=== PATIENT | male | born 1965 | race Caucasian/White ===

== ENCOUNTER → 2016-06-05 | Outpatient (CLI) | payer MEDICARE, OTHER ==
[~2016-06-05] MED LIST: ALLP300T PO; ALPR.25T PO; ALPR0.254 PO; AMIT50TA3 PO; ANDROGEL; ASCO-262 PO; BACL10TA PO; BUPR150T49 PO; BUTA1TAB44 PO; CALC-250 PO; CETI10TA17 PO; CETI5TAB6 PO; CHOL100045 PO; CRESTOR40 MG PO; DCS100C PO; DICL100G13 TOP; DICL100G20 TOP; EZET10TA5 PO; FENO145T2 PO; FISH1CAP15 PO; FNT100TD TD; FNT50TD TD; FOLI-88 PO; GABA-488 PO; GABA300C PO; GABA300S2 PO; GABA600T2 PO; GBPN300C PO; GBPN600T PO; GLYB2.5T2 PO; HUM100VI15 SQ; HYDR-2890 PO; HYDR-3720 PO; IBUP800T26 PO; INSU100I13 SC; INSU100I13 SQ; LIRA0.6P SQ; LIRA0.6P2 SQ; LISI10TA2 PO; META800T5 PO; METH4TAB PO; METO25TA PO; METO25TA6 PO; MIRT15TA6 PO; NIAC1CAP PO; NIAC500T24 PO; NOVALOG SQ; OMEG1000 PO; OMEP40CA36 PO; OMG1KC PO; OXYC-12 PO; OXYC-197 PO; OXYC10TA7 PO; PIOG45TA; PROM25SU43 RC; RISE150T PO; SIMV40TA4 PO; SUCR1TAB PO; SULI200T4 PO; TIZA4TAB55 PO; TRAM1TAB7 PO; TRI COR PO; UBID100C17 PO; UBID100C44 PO; UBID50CA PO; [UNRECOGNIZED DRUG - CODE] SC; [UNRECOGNIZED DRUG - OTHER] PO
--- OUTSIDE RECORDS SUMMARY | 2016-06-05 14:41 | XMS REPORT | Continuity of Care Document ---
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 If you do not see the information that you expected, contact Release of Information in the Health Information Management department at [phone] for further assistance in locating additional records.[facility] Active Allergies and Adverse Reactions Not on File Current Medications Not on file Active Problems Not on file Social History Tobacco Use Types Packs/Day Years Used Date Never Assessed Plan of Care Health Maintenance Due Date Last Done Comments Hepatitis C Screening 1965 Physical (Comprehensive) 12/07/1971 Exam Pertussis Vaccine 12/07/1975 Tetanus Vaccine 1981 Colorectal Cancer 2014 Screening Influenza Vaccine 01/24/2016 Results from Last 3 Months Not on file
--- NOTE | 2016-06-05 15:14 | Diagnostic Imaging Report ---
PROCEDURE: CT urinary tract, rule out kidney stone. TECHNIQUE: Multiple contiguous axial images were obtained through the abdomen and pelvis without the use of intravenous contrast. INDICATION: Right lower quadrant pain. History of stones. Prior surgical history of cholecystectomy, appendectomy and spine surgery. FINDINGS: The lung bases appear clear. The liver demonstrates hepatic steatosis. Cholecystectomy clips seen. The spleen is not enlarged. The pancreas and the adrenals appear unremarkable. The kidneys have no hydronephrosis. There is a 4 mm nonobstructive stone in the lower pole of the right kidney and 2 mm stone in the upper pole of the right kidney as well. No other urinary tract stones. The abdominal aorta is normal in caliber. No para-aortic significantly enlarged lymph node is seen. Scattered diverticula are noted. No evidence of diverticulitis. There is no significant fluid collection or free fluid seen in the abdomen or pelvis. The osseous structures demonstrate posterior fusion hardware along the spinous processes of L4/L5 and the right pedicles of L4/L5 and S1 levels. There is anterior fusion and disc cage placement at L3/L4 and L4/L5 as well. IMPRESSION: 1. Nonobstructive stones in the right kidney up to 4 mm in size. No hydronephrosis. 2. A few sigmoid diverticula. No diverticulitis. Dictated by: Dictated on workstation # [id number]
== END ==
LOC: RAD 14:37
PROVIDERS: ATTEND Family Medicine
DX: N20.0 Calculus of kidney (principal); K57.90 Diverticulosis of intestine, part unspecified, without perforation or abscess without bleeding
CPT/HCPCS: 74176

== ENCOUNTER 2017-02-13 08:07 | Outpatient (RCR) | payer MEDICARE, OTHER | END 2017-02-13 11:02 | disposition home or self-care (01) | PROVIDERS: ATTEND Orthopaedic Surgery | DX: M75.101 Unspecified rotator cuff tear or rupture of right shoulder, not specified as traumatic (principal); I10 Essential (primary) hypertension; E11.9 Type 2 diabetes mellitus without complications; Z98.1 Arthrodesis status ==

== ENCOUNTER 2017-07-15 14:29 | Inpatient (IN) | payer MEDICARE, OTHER ==
[~2017-07-15] VITALS: Ht 180.3 cm; Wt 115.2 kg
--- OUTSIDE RECORDS SUMMARY | 2017-07-15 14:34 | XMS REPORT | Clinical Summary ---
Author Author [facility] Organization [facility] Address Unknown Phone Unavailable Care Team Providers Care Dispatcher Refinery Name Role Phone PCP Unavailable Source Comments Some departments are not documenting in the electronic medical record. If you do not see the information that you expected, contact Release of Information in the Health Information Management department at [phone] for further assistance in locating additional records.[facility] Allergies Not on File Current Medications Not on file Active Problems Not on file Social History Tobacco Use Types Packs/Day Years Used Date Never Assessed Sex Assigned at Date Recorded Not on file Last Filed Vital Signs Not on file Plan of Treatment Health Maintenance Due Date Last Done Comments HEPATITIS C SCREENING 1965 PHYSICAL (COMPREHENSIVE) 12/07/1971 EXAM PERTUSSIS VACCINE 12/07/1975 TETANUS VACCINE 1981 COLORECTAL CANCER 2014 SCREENING INFLUENZA VACCINE 12/23/2016 Results Not on filefrom Last 3 Months
--- OUTSIDE RECORDS SUMMARY | 2017-07-15 14:36 | XMS REPORT | Continuity of Care Document ---
Author Author [facility] Organization [facility] Address Unknown Phone Unavailable Allergies Active Description Code Type Severity Reaction Onset Reported/Identified Relationship to Patient Clinical Status Yes No Known Drug Allergies [id number] Drug Allergy Unknown N/A 01/16/2015 Medications There is no data. Problems Date Dx Coded Attending Type Code Diagnosis Diagnosed By 12/07/2010 Ot 250.00 DIAB DAYSI WO COMPL, TYPE II OR UNSPEC TY 12/07/2010 Ot 780.2 SYNCOPE AND COLLAPSE 12/07/2010 Ot V58.69 OTH MED,LT, CURRENT USE 12/14/2010 Ot 250.02 DIAB DAYSI WO COMPL, TYPE II OR UNSPEC TY 12/14/2010 Ot 729.5 PAIN IN LIMB 12/14/2010 Ot 789.09 ABDOMINAL PAIN, OTHER SPECIFIED SITE 01/15/2011 Ot 211.3 BENIGN NEOPLASM LG BOWEL 05/31/2011 Ot 327.23 OBSTRUCTIVE SLEEP APNEA (ADULT) (PEDIATR 03/06/2012 Ot 724.2 LUMBAGO 03/06/2012 Ot 724.3 SCIATICA 09/24/2012 LUCI SPARKS DO Ot 250.00 DIAB DAYSI WO COMPL, TYPE II OR UNSPEC TY 09/24/2012 LUCI SPARKS DO Ot 401.9 HYPERTENSION NOS 09/24/2012 LUCI SPARKS DO Ot 592.0 CALCULUS OF KIDNEY 09/24/2012 LUCI SPARKS DO Ot 789.01 ABDOMINAL PAIN, RIGHT UPPER QUADRANT 09/24/2012 LUCI SPARKS DO Ot V58.67 LONG-TERM (CURRENT) USE OF INSULIN 06/01/2013 LIDIA DIEHL DO Ot 250.00 DIAB DAYSI WO COMPL, TYPE II OR UNSPEC TY 06/01/2013 LIDIA DIEHL DO Ot 272.4 HYPERLIPIDEMIA NEC/NOS 06/01/2013 LIDIA DIEHL DO Ot 401.9 HYPERTENSION NOS 06/01/2013 LIDIA DIEHL DO Ot 530.81 ESOPHAGEAL REFLUX 06/01/2013 LIDIA DIEHL DO Ot 560.9 INTESTINAL OBSTRUCT NOS 06/01/2013 LIDIA DIEHL DO, Ot V58.67 LONG-TERM (CURRENT) USE OF INSULIN 03/31/2014 LIDIA DIEHL DO Ot 250.00 DIAB DAYSI WO COMPL, TYPE II OR UNSPEC TY 03/31/2014 LIDIA DIEHL DO Ot 553.21 INCISIONAL HERNIA 04/28/2014 LIDIA DIEHL DO Ot 553.20 04/28/2014 LIDIA DIEHL DO, Ot V72.63 04/28/2014 LIDIA DIEHL DO Ot V74.8 05/05/2014 LIIDA DIEHL DO Ot 553.20 05/05/2014 LIDIA DIEHL DO, Ot V72.63 05/05/2014 LIDIA DIEHL DO, Ot V74.8 12/08/2014 LIDIA DIEHL DO Ot 250.00 DIAB DAYSI WO COMPL, TYPE II OR UNSPEC TY 12/08/2014 LIDIA DIEHL DO Ot 272.4 HYPERLIPIDEMIA NEC/NOS 12/08/2014 LIDIA DIEHL DO Ot 288.60 LEUKOCYTOSIS, UNSPECIFIED 12/08/2014 LIDIA DIEHL DO Ot 300.00 ANXIETY STATE NOS 12/08/2014 LIDIA DIEHL DO Ot 338.29 OTHER CHRONIC PAIN 12/08/2014 LIDIA DIEHL DO Ot 401.9 HYPERTENSION NOS 12/08/2014 LIDIA DIEHL DO Ot 414.01 CORONARY ATHEROSCLEROSIS OF [place] CORON 12/08/2014 LIDIA DIEHL DO Ot 530.81 ESOPHAGEAL REFLUX 12/08/2014 LIDIA DIEHL DO Ot 560.9 INTESTINAL OBSTRUCT NOS 12/08/2014 LIDIA DIEHL DO, Ot V58.67 LONG-TERM (CURRENT) USE OF INSULIN 12/26/2014 LIDIA DIEHL DO Ot 211.3 BENIGN NEOPLASM LG BOWEL 12/26/2014 LIDIA DIEHL DO Ot 531.90 STOMACH ULCER NOS 12/26/2014 LIDIA DIEHL DO Ot 535.40 OTH SPECIFIED GASTRITIS,W/O MENTION OF H 12/26/2014 LIDIA DIEHL DO Ot 562.10 DIVERTICULOSIS COLON (W/O MENT OF HEMORR 12/26/2014 LIDIA DIEHL DO Ot V16.0 FAMILY HX-GI MALIGNANCY 12/26/2014 LIDIA DIEHL DO, Ot V76.51 SCREEN MAL NEOP-COLON 01/18/2015 LIDIA DIEHL DO Ot 250.00 DIAB DAYSI WO COMPL, TYPE II OR UNSPEC TY 01/18/2015 LIDIA DIEHL DO Ot 568.0 PERITONEAL [id number]/INF 01/18/2015 LIDIA DIEHL DO Ot 585.2 CHRONIC KIDNEY DISEASE, STAGE II (MILD) 01/18/2015 LIDIA DIEHL DO Ot V12.71 PERSONAL HISTORY OF PEPTIC ULCER DISEASE 01/18/2015 LIDIA DIEHL DO Ot V12.72 PERSONAL HISTORY OF COLONIC POLYPS 01/18/2015 LIDIA DIEHL DO Ot V12.79 PERSONAL HISTORY OTH SPEC DIGESTIVE SYST 01/18/2015 LIDIA DIEHL DO Ot V16.0 FAMILY HX-GI MALIGNANCY 01/18/2015 LIDAI DIEHL DO, Ot V64.41 LAPAROSCOPIC SURGICAL PROC CONVERTED TO 01/29/2015 LIDIA DIEHL DO Ot 250.00 DIAB DAYSI WO COMPL, TYPE II OR UNSPEC TY 01/29/2015 LIDIA DIEHL DO Ot 274.9 GOUT NOS 01/29/2015 LIDIA DIEHL DO Ot 401.9 HYPERTENSION NOS 01/29/2015 LIDIA DIEHL DO Ot 560.9 INTESTINAL OBSTRUCT NOS 01/29/2015 LIDIA DIEHL DO Ot 714.0 RHEUMATOID ARTHRITIS 01/29/2015 LIDIA DIEHL DO Ot 729.1 MYALGIA AND MYOSITIS NOS 01/29/2015 LIDIA DIEHL DO Ot V58.67 LONG-TERM (CURRENT) USE OF INSULIN 01/31/2015 LIDIA DIEHL DO Ot 585.2 01/31/2015 LIDIA DIEHL DO, Ot V72.63 01/31/2015 LIDIA DIEHL DO Ot V74.8 04/12/2015 LIDIA DIEHL DO Ot K25.9 04/12/2015 LIDIA DIEHL DO, Ot Z01.818 04/26/2015 LIDIA DIEHL DO Ot Z09 ENCNTR FOR F/U EXAM AFT TRTMT FOR COND O 04/26/2015 LIDIA DIEHL DO Ot Z87.11 PERSONAL HISTORY OF PEPTIC ULCER DISEASE 04/03/2016 LIDIA DIEHL DO Ot R10.9 UNSPECIFIED ABDOMINAL PAIN 04/04/2016 LIDIA DIEHL DO Ot R10.9 UNSPECIFIED ABDOMINAL PAIN 04/09/2016 LIDIA DIEHL DO Ot R10.9 UNSPECIFIED ABDOMINAL PAIN 04/09/2016 Ot 786.2 COUGH 04/09/2016 Ot 959.3 ELB/FOREARM/ WRST INJ NOS 04/09/2016 Ot E000.8 OTHER EXTERNAL CAUSE STATUS 04/09/2016 Ot E885.9 FALL FROM SLIPPING, TRIPPING, OR STUMBLI 04/09/2016 Ot 719.43 JOINT PAIN- FOREARM 04/09/2016 Ot 959.3 ELB/FOREARM/ WRST INJ NOS 04/09/2016 Ot E000.8 OTHER EXTERNAL CAUSE STATUS 04/09/2016 Ot E849.0 ACCIDENT IN HOME 04/09/2016 Ot E888.9 FALL NOS 04/09/2016 BRIDGER STEPHENSON, LUCI Graff Ot 786.50 CHEST PAIN NOS 04/09/2016 LUCI SPARKS DO Ot 959.3 ELB/FOREARM/WRST INJ NOS 04/09/2016 LUCI SPARKS DO Ot E000.8 OTHER EXTERNAL CAUSE STATUS 04/09/2016 LUCI SPARKS DO Ot E888.9 FALL NOS 04/09/2016 BRIDGER STEPHENSON, LUCI Graff Ot 959.7 LOWER LEG INJURY NOS 04/09/2016 LUCI SPARKS DO Ot E928.9 ACCIDENT NOS 04/09/2016 NATALYA LYNCH, HILDA S Ot 250.40 DIAB W RENAL MANIFEST, TYPE II OR UNSPEC 04/09/2016 NATALYA LYNCH, HILDA Alcaraz Ot 272.4 HYPERLIPIDEMIA NEC/NOS 04/09/2016 NATALYA LYNCH, HILDA Alcaraz Ot 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, BENIGN, W CHR KD ST 04/09/2016 NATALYA LYNCH, HILDA S Ot 581.9 NEPHROTIC SYNDROME NOS 04/09/2016 NATALYA LYNCH, HILDA Alcaraz Ot 583.81 NEPHRITIS NOS IN OTH DIS 04/09/2016 NATALYA LYNCH, HILDA Alcaraz Ot 585.2 CHRONIC KIDNEY DISEASE, STAGE II (MILD) 04/09/2016 LIDIA DIEHL DO Ot 553.20 VENTRAL HERNIA NOS 04/09/2016 LIDIA DEIHL DO Ot V72.63 PRE-PROCEDURAL LABORATORY EXAMINATION 04/09/2016 LIDIA DIEHL DO Ot V74.8 SCREEN-BACTERIAL DIS NEC 04/09/2016 LIDIA DIEHL DO Ot 787.3 FLATUL/ERUCTAT/GAS PAIN 04/09/2016 LIDIA DIEHL DO Ot V16.0 FAMILY HX-GI MALIGNANCY 04/09/2016 LIDIA DIEHL DO Ot V72.84 EXAM PRE-OPERATIVE NOS 04/09/2016 LIDIA DIEHL DO Ot 585.2 CHRONIC KIDNEY DISEASE, STAGE II (MILD) 04/09/2016 LIDIA DIEHL DO Ot V72.63 PRE-PROCEDURAL LABORATORY EXAMINATION 04/09/2016 LIDIA DIEHL DO Ot V74.8 SCREEN-BACTERIAL DIS NEC 04/09/2016 LIDIA DIEHL DO Ot K25.9 GASTRIC ULCER, UNSP ACUTE OR CHRONIC, 04/09/2016 LIDIA DIEHL DO Ot Z01.818 ENCOUNTER FOR OTHER PREPROCEDURAL EXAMIN 04/09/2016 LIDIA DIEHL DO Ot K25.9 GASTRIC ULCER, UNSP ACUTE OR CHRONIC, 04/09/2016 LIDIA DIEHL DO Ot Z01.818 ENCOUNTER FOR OTHER PREPROCEDURAL EXAMIN 04/09/2016 LIDIA DIEHL DO Ot R10.9 UNSPECIFIED ABDOMINAL PAIN 04/24/2016 LIDIA DIEHL DO Ot R10.9 UNSPECIFIED ABDOMINAL PAIN 05/13/2016 LIDIA DIEHL DO Ot R10.32 LEFT LOWER QUADRANT PAIN 05/16/2016 LIDIA DIEHL DO Ot R10.32 LEFT LOWER QUADRANT PAIN 06/06/2016 LUCI SPARKS DO Ot K57.90 DVRTCLOS OF INTEST, PART UNSP, W/O PERF 06/06/2016 GELLENDER DO, LUCI Graff Ot N20.0 CALCULUS OF KIDNEY 06/11/2016 GELLENDER DO, LUCI Graff Ot K57.90 DVRTCLOS OF INTEST, PART UNSP, W/O PERF 06/11/2016 GELLENDER DO, LUCI Graff Ot N20.0 CALCULUS OF KIDNEY 06/30/2016 GELLENDER DO, LUCI Graff Ot K57.90 DVRTCLOS OF INTEST, PART UNSP, W/O PERF 06/30/2016 GELLENDER DO, LUCI Prerna Ot N20.0 CALCULUS OF KIDNEY 07/03/2016 GELLENDER DO, LUCI Prerna Ot K57.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 OF INTEST, PART UNSP, W/O PERF 07/03/2016 GELLENDER DO, LUCI Graff Ot N20.0 CALCULUS OF KIDNEY 02/13/2017 TALITA ALLEN MD Ot E11.9 TYPE 2 DIABETES MELLITUS WITHOUT COMPLIC 02/13/2017 TALITA ALLEN MD Ot I10 ESSENTIAL (PRIMARY) HYPERTENSION 02/13/2017 TALITA ALLEN MD Ot M75.101 UNSP ROTATR-CUFF TEAR/RUPTR OF RIGHT SHONNA 02/13/2017 TALITA ALLEN MD, Ot Z98.1 ARTHRODESIS STATUS Procedures Code Description Performed By Performed On 54.51 LAPAROSCOP LYSIS-PERITONEAL ADHES 01/16/2015 54.59 OTH LYSIS-PERITONEAL ADHES 01/16/2015 Results Test Result Range [id number] - 04/03/16 15:27 Serum or plasma urea nitrogen measurement (mass/volume) 19 mg/dL 7-18 Serum or plasma creatinine measurement (mass/volume) 1.36 mg/dL 0.60-1.30 Serum or plasma urea nitrogen/creatinine mass ratio 14 NRG Serum or plasma creatinine measurement with calculation of estimated glomerular filtration rate 55 NRG Encounters ACCT No. Visit Date/Time Discharge Status Pt. Type Provider Facility Loc./Unit Complaint [id number] 02/13/2017 08:07:00 02/13/2017 11:02:00 DIS Outpatient TALITA ALLEN MD [facility] REHAB R SHOULDER RCT [id number] 06/05/2016 14:37:00 06/05/2016 23:59:59 CLS Outpatient LUCI SPARKS DO [facility] RAD PAIN IN RLQ, HX OF KIDNEY STONES [id number] 04/09/2016 11:15:00 04/09/2016 23:59:59 CLS Outpatient FAZAL DOZULAYROUTIE [facility] RAD ABD PAIN [id number] 04/03/2016 15:13:00 04/03/2016 23:59:59 CLS Outpatient FAZAL DOZULAYROUTIE [facility] LAB ABD PAIN PREP FOR CT [id number] 04/26/2015 07:44:00 04/26/2015 10:20:00 DIS Outpatient FAZAL DO, CHANDROUTIE [facility] SDC MULTIPLE ULCERS [id number] 04/24/2015 05:36:00 04/24/2015 23:59:59 CLS Outpatient FAZAL DO CHANDROUTIE [facility] PREOP MULTIPLE ULCERS [id number] 04/05/2015 05:41:00 04/05/2015 23:59:59 CLS Outpatient FAZAL DO CHANDROUTIE [facility] PREOP MULTIPLE ULCERS [id number] 01/27/2015 23:21:00 01/29/2015 14:50:00 DIS Inpatient FAZAL DO CHANDROUTIE [facility] SURGICAL SMALL BOWEL OBSTRUCTION [id number] 01/17/2015 07:26:00 01/18/2015 16:20:00 DIS Inpatient FAZAL DO, CHANDROUTIE [facility] SURGICAL ABDOMINAL PAIN [id number] 01/09/2015 09:44:00 01/09/2015 23:59:59 CLS Outpatient FAZAL DO, CHANDROUTIE [facility] PREOP ABDOMINAL PAIN [id number] 12/26/2014 10:04:00 12/26/2014 13:10:00 DIS Outpatient FAZAL DO CHANDROUTIE [facility] SDC ABDOMINAL DISTENSION; FAMILY HX COLON CANCER [id number] 12/21/2014 06:35:00 12/21/2014 23:59:59 CLS Outpatient FAZAL DO CHANDROUTIE [facility] PREOP ABNORMAL DISTORATION; FAMILY HX COLON CANCER [id number] 12/04/2014 02:17:00 12/08/2014 16:00:00 DIS Inpatient LIDIA DIEHL DO [facility] SURGICAL SMALL BOWEL OBSTRUCTION [id number] 03/30/2014 08:54:00 03/31/2014 17:00:00 DIS Outpatient LIDIA DIEHL DO [facility] SDC VENTAL HERNIA [id number] 03/28/2014 11:12:00 03/28/2014 23:59:59 CLS Outpatient LIDIA DIEHL DO [facility] PREOP VENTRAL HERNIA [id number] 01/09/2014 14:53:00 01/09/2014 23:59:59 CLS Outpatient NATALYA LYNCH, HILDA Alcaraz [facility] LAB KIDNEY LESIONS, HYPERLIPADEMA,CKD [id number] 12/28/2013 15:17:00 12/28/2013 23:59:59 CLS Outpatient LUCI SPARKS DO [facility] RAD DROPPED RAMP RT FOOT [id number] 05/28/2013 07:28:00 06/01/2013 13:19:00 DIS Inpatient FAZAL DO LIDIA [facility] SURGICAL SMALL BOWEL OBSTRUCTION [id number] 05/11/2013 11:18:00 05/11/2013 23:59:59 CLS Outpatient LUCI SPARKS DO [facility] RAD CELLULITTIS LT WRIST LAST 2 WEEKS [id number] 01/24/2013 09:47:00 01/24/2013 23:59:59 CLS Outpatient [id number] 10/28/2012 16:01:00 10/28/2012 23:59:59 CLS Outpatient LUCI SPARKS DO [facility] LAB CHEST PAINS [id number] 09/22/2012 01:30:00 09/24/2012 13:35:00 DIS Inpatient LUCI SPARKS DO [facility] 4TH INTRACTABLE RUQ ABD PAIN/CVA [id number] 03/06/2012 17:36:00 Document Registration [id number] 11/21/2011 11:11:00 Document Registration [id number] 11/13/2011 15:19:00 Document Registration [id number] 07/24/2011 17:11:00 Document Registration [id number] 05/30/2011 20:53:00 Document Registration [id number] 01/15/2011 11:32:00 Document Registration [id number] 12/14/2010 01:00:00 Document Registration [id number] 12/07/2010 14:00:00 Document Registration
[2017-07-15] MEDS ORDERED: RT-ALBUTEROL/IPRATROPIUM 3 ML (DUONEB) VIAL INH ONE (14:45)
[2017-07-15] MEDS ORDERED: PROMETHAZINE/ CODEINE SYRUP 5 ML UDC PO ONE (14:45)
[2017-07-15 15:12] LABS: BASOPHILS # (AUTO) 0.1 10^3/uL (0.0-0.1); BASOPHILS % (AUTO) 0 % (0-10); EOSINOPHILS # (AUTO) 0.1 10^3/uL (0.0-0.3); EOSINOPHILS % (AUTO) 1 % (0-10); HEMATOCRIT 44 % (40-54); HEMOGLOBIN 15.7 G/DL (13.3-17.7); LYMPHOCYTES # (AUTO) 2.3 X 10^3 (1.0-4.0); LYMPHOCYTES % (AUTO) 12 % (12-44); MEAN CORPUSCULAR HEMOGLOBIN 33 PG (25-34); MEAN CORPUSCULAR HGB CONC 36 G/DL (32-36); MEAN CORPUSCULAR VOLUME 92 FL (80-99); MEAN PLATELET VOLUME 11.3 FL (7.4-10.4); MONOCYTES # (AUTO) 1.8 X 10^3 (0.0-1.0); MONOCYTES % (AUTO) 9 % (0-12); NEUTROPHILS # (AUTO) 15.6 X 10^3 (1.8-7.8); NEUTROPHILS % (AUTO) 78 % (42-75); PLATELET COUNT 192 10^3/uL (130-400); RED BLOOD COUNT 4.73 10^6/uL (4.35-5.85); RED CELL DISTRIBUTION WIDTH 12.3 % (10.0-14.5); WHITE BLOOD COUNT 19.9 10^3/uL (4.3-11.0)
--- NOTE | 2017-07-15 15:23 | Diagnostic Imaging Report ---
PATIENT HISTORY: Cough, body aches, shortness of breath. TECHNIQUE: Two views of the chest. COMPARISON: None. FINDINGS: Lung volumes are mildly low. There are airspace opacities in the right lower lobe. No pleural effusion or pneumothorax is seen. The cardiac silhouette is normal in size. There is anterior fusion of the lower cervical spine. No acute osseous abnormality is seen. IMPRESSION: 1. Airspace opacities in the right lower lobe, concerning for infection. Dictated by: Dictated on workstation # [id number]
--- NOTE | 2017-07-15 15:35 | ED Cough/URI ---
General Chief Complaint: Cough/Cold/Flu Symptoms Stated Complaint: FLU SYMPTOMS Nursing Triage Note: PT STATES HAS COLD COUGH FLU FOR ABOUT A WEEK, PT STATES HAD -FLU SWAB LAST WEEK. PT HAS PERSISTANT MOIST COUGH. DENIES FEVER Source: patient Exam Limitations: no limitations History of Present Illness Date Seen by Provider: Jul 15, 2017 Time Seen by Provider: 15:35 Initial Comments Persistent cough and shortness of breath for one week. Had a negative flu swab at the onset of this. He is on prednisone Timing/Duration: week Severity/Quality: moderate Associated Symptoms: cough Allergies and Home Medications Allergies Coded Allergies: No Known Drug Allergies (Unverified , 01/16/15) Home Medications Allopurinol 300 Mg Tablet, 300 MG PO DAILY, (Reported) Alprazolam 0.25 Mg Tablet, 0.25 MG PO TID PRN for ANXIETY, #15 (Reported) Ascorbate Calcium 500 Mg Tablet, 500 MG PO BID, (Reported) Cetirizine Hcl 10 Mg Tablet, 10 MG PO DAILY, (Reported) Cholecalciferol (Vitamin D3) 1,000 Unit Tablet, 3,000 UNIT PO UD, (Reported) Folic Acid/Multivits-Min/Lut 1 Each Tab.chew, 2 TAB.CHEW PO DAILY, (Reported) Gabapentin 600 Mg Tablet, 600 MG PO HS, (Reported) Gabapentin 300 Mg Capsule, 300 MG PO DAILY, (Reported) Insuln Asp Prt/Insulin Aspart 1 Unit/0.01 Ml Susp, 20-24 UNIT SC DAILY, ( Reported) WITH ACTIVATIVE TAKES LESS INSULIN Insuln Asp Prt/Insulin Aspart 300 Units/3 Ml Solution, 30 UNITS SC HS, (Reported ) Liraglutide 0.6 Mg/0.1 Ml Pen.injctr, 1.8 MG SQ DAILY, (Reported) Lisinopril 10 Mg Tablet, 10 MG PO DAILY, (Reported) Metaxalone 800 Mg Tablet, 800 MG PO TID PRN for MUSCLE SPASMS, (Reported) Metoprolol Tartrate 25 Mg Tablet, 25 MG PO BID, (Reported) Niacinamide 500 Mg Tablet, 500 MG PO BID, (Reported) [place]-3 Fatty Acids 1,000 Mg Capsule, 6,000 MG PO DAILY, (Reported) Omeprazole 40 Mg Capsule.dr, 40 MG PO BID, (Reported) Oxycodone Hcl 10 Mg Tablet, 10 MG PO Q6H PRN for PAIN, (Reported) Promethazine HCl 25 Mg Supp.rect, 25 MG RC Q8H PRN for NAUSEA/VOMITING, #60 Prescribed by: LUH DIEHL on 01/18/15 1237 Ubidecarenone 100 Mg Capsule, 100 MG PO DAILY, (Reported) Constitutional: see HPI, fever EENTM: see HPI Respiratory: see HPI Cardiovascular: no symptoms reported Genitourinary: no symptoms reported Musculoskeletal: no symptoms reported Skin: no symptoms reported Psychiatric/Neurological: No Symptoms Reported Past Qsrdvdh-Cponxo-Aalbyi Hx Patient Social History Alcohol Use: Denies Use Recreational Drug Use: No Smoking Status: Never a Smoker Recent Foreign Travel: No Contact w/Someone Who Travel: No Recent Infectious Disease Expo: No Recent Hopitalizations: No Physical Abuse: No Sexual Abuse: No Immunizations Up To Date Tetanus Booster (TDap): Unknown PED Vaccines UTD: Yes Date of Pneumonia Vaccine: Dec 26, 2013 Date of Influenza Vaccine: Mar 14, 2014 Seasonal Allergies Seasonal Allergies: No Surgeries History of Surgeries: Yes (LITHOTRIPSY, BACK, L KNEE ACL REPAIR, WISDOM TEETH, COLONOSCOPY/POLYPECTOMY) Surgeries: Abdominal, Adenoidectomy, Appendectomy, Gallbladder, Orthopedic, Tonsillectomy Respiratory History of Respiratory Disorde: Yes (SLEEP APNEA, ) Respiratory Disorders: Sleep Apnea Currently Using CPAP: No Currently Using BIPAP: No Cardiovascular History of Cardiac Disorders: Yes (STRESS TEST COUPLE YEARS AGO AT [place]) Cardiac Disorders: High Cholesterol, Hypertension Neurological History of Neurological Disord: No Neurological Disorders: Headaches /Migraines Reproductive System Hx Reproductive Disorders: No Sexually Transmitted Disease: No HIV/AIDS: No Genitourinary Genitourinary Disorders: Kidney Stones, Renal Failure Gastrointestinal History of Gastrointestinal Di: Yes (ABDOMINAL ADHESIONS, FREQUENT SMALL BOWEL OBSTRUCTIONS) Gastrointestinal Disorders: Abdominal Hernia, Obstructive Bowel, Polyps, Gall Bladder Disease Musculoskeletal History of Musculoskeletal Dis: Yes Musculoskeletal Disorders: Degenerate Disk Disease, Arthritis, Fibromyalgia, Rheumatoid Arthritis, Back Injury, Chronic Back Pain, Fractures, Gout Endocrine History of Endocrine Disorders: Yes Endocrine Disorders: Diabetes, Insulin dep HEENT HEENT Disorders: Tonsilitis Loss of Vision: Denies Hearing Impairment: Denies Cancer History of Cancer: No Psychosocial History of Psychiatric Problem: Yes Behavioral Health Disorders: Anxiety, Depression Suicide Risk Score: 0 Integumentary History of Skin or Integumenta: No Blood Transfusions History of Blood Disorders: No Adverse Reaction to a Blood Tr: No Family Medical History Family Medial History: Cancer 03 MOTHER Cancer of colon 03 MOTHER Family history: Diabetes mellitus 09 SISTER Family history: Gastrointestinal disease 03 MOTHER 09 BROTHER Physical Exam Vital Signs Vital Signs - First Documented 07/15/17 07/15/17 14:35 14:52 Temp 97.9 Pulse 127 Resp 18 B/P (MAP) 137/102 (114) Pulse Ox 95 O2 Delivery Room Air Capillary Refill : Less Than 3 Seconds General Appearance: WD/WN, no apparent distress Eyes: Bilateral Eye Normal Inspection, Bilateral Eye PERRL, Bilateral Eye EOMI HEENT: PERRL/EOMI, normal ENT inspection Neck: non-tender, full range of motion Respiratory: no respiratory distress, no accessory muscle use, crackles Cardiovascular: regular rate, rhythm, no murmur Progress/Results/Core Measures Suspected Sepsis Recent Fever Within 48 Hours: No Infection Criteria Present: None New/Unexplained Altered Menta: No Sepsis Screen: No Definite Risk Sepsis Diagnosis: SIRS Temperature:97.9 Pulse: 127 Respiratory Rate: 18 Laboratory Tests 07/15/17 15:00: White Blood Count 19.9H Blood Pressure 137 /102 Mean: 114 Laboratory Tests 07/15/17 15:00: Creatinine 1.33H, Platelet Count 192 Results/Orders Lab Results Laboratory Tests Test 07/15/17 15:00 Range/Units White Blood Count 19.9 H 4.3-11.0 10^3/uL Red Blood Count 4.73 4.35-5.85 10^6/uL Hemoglobin 15.7 13.3-17.7 G/DL Hematocrit 44 40-54 % Mean Corpuscular Volume 92 80-99 FL Mean Corpuscular Hemoglobin 33 25-34 PG Mean Corpuscular Hemoglobin Concent 36 32-36 G/DL Red Cell Distribution Width 12.3 10.0-14.5 % Platelet Count 192 130-400 10^3/uL Mean Platelet Volume 11.3 H 7.4-10.4 FL Neutrophils (%) (Auto) 78 H 42-75 % Lymphocytes (%) (Auto) 12 12-44 % Monocytes (%) (Auto) 9 0-12 % Eosinophils (%) (Auto) 1 0-10 % Basophils (%) (Auto) 0 0-10 % Neutrophils # (Auto) 15.6 H 1.8-7.8 X 10^3 Lymphocytes # (Auto) 2.3 1.0-4.0 X 10^3 Monocytes # (Auto) 1.8 H 0.0-1.0 X 10^3 Eosinophils # (Auto) 0.1 0.0-0.3 10^3/uL Basophils # (Auto) 0.1 0.0-0.1 10^3/uL Neutrophils % (Manual) 80 % Lymphocytes % (Manual) 13 % Monocytes % (Manual) 4 % Eosinophils % (Manual) 1 % Basophils % (Manual) 0 % Band Neutrophils 2 % Blood Morphology Comment NORMAL Sodium Level 135 135-145 MMOL/L Potassium Level 4.3 3.6-5.0 MMOL/L Chloride Level 98 98-107 MMOL/L Carbon Dioxide Level 21 21-32 MMOL/L Anion Gap 16 H 5-14 MMOL/L Blood Urea Nitrogen 25 H 7-18 MG/DL Creatinine 1.33 H 0.60-1.30 MG/DL Estimat Glomerular Filtration Rate 56 BUN/Creatinine Ratio 19 Glucose Level 420 *H 70-105 MG/DL Calcium Level 10.0 8.5-10.1 MG/DL My Orders Orders - ALYSSIA PATEL APRN Chest Pa/Lat (2 View) (07/15/17 14:31) Influenza A And B Antigens (07/15/17 14:31) Albuterol/Ipra Inhalation Soln (Duoneb I (07/15/17 14:45) Promethazine/ Codeine Syrup (Phenergan W (07/15/17 14:45) Cbc With Automated Diff (07/15/17 14:40) Basic Metabolic Panel (07/15/17 14:40) Manual Differential (07/15/17 15:00) Ns Iv 1000 Ml (Sodium Chloride 0.9%) (07/15/17 15:45) Insulin (Regular) Human (Humulin R (Per (07/15/17 15:45) Medications Given in ED Current Medications Medications Dose Ordered Sig/Lamin Route Start Time Stop Time Status Last Admin Dose Admin Albuterol/ Ipratropium 3 ml ONCE ONCE INH 07/15/17 14:45 07/15/17 14:46 DC 07/15/17 14:52 3 ML Promethazine HCl/ Codeine 7.5 ml ONCE ONCE PO 07/15/17 14:45 07/15/17 14:46 DC 07/15/17 14:43 7.5 ML Vital Signs/I&O Vital Sign - Last 12Hours 07/15/17 07/15/17 14:35 14:52 Temp 97.9 Pulse 127 Resp 18 B/P (MAP) 137/102 (114) Pulse Ox 95 O2 Delivery Room Air Capillary Refill : Less Than 3 Seconds Blood Pressure Mean: 114 Departure Communication (Admissions) Time/Spoke to Admitting Phy: 16:01 Communication I discussed with Dr Deleon. Will admit using rocephin/zithromax regimen, sliding scale B, iv fluid bolus and 6 unit insulin bolus in ER. Impression Impression: Primary Impression: IDDM (insulin dependent diabetes mellitus) Additional Impressions: Pneumonia Sepsis Disposition: ADMITTED INPATIENT Condition: Stable Admissions Decision to Admit Reason: Admit from ER (General) Decision to Admit/Date: Jul 15, 2017 Time/Decision to Admit Time: 16:02 Departure-Patient Inst. Referrals: LUCI DELEON DO (PCP/Family) Primary Care Physician ALYSSIA PATEL APRN Jul 15, 2017 15:35
[2017-07-15 15:39] LABS: BAND NEUTROPHILS 2 %; BASOPHILS % (MANUAL) 0 %; EOSINOPHILS % (MANUAL) 1 %; LYMPHOCYTES % (MANUAL) 13 %; MONOCYTES % (MANUAL) 4 %; NEUTROPHILS % (MANUAL) 80 %; RBC MORPH NORMAL
[2017-07-15 15:40] LABS: CREATININE SERUM 1.33 MG/DL (0.60-1.30); POTASSIUM 4.3 MMOL/L (3.6-5.0)
[2017-07-15] MEDS ORDERED: NS IV 1000 ML 1,000 ML IV SCH ×2 (15:45→17:45)
[2017-07-15] MEDS ORDERED: inSUlin (REGULAR) HUMAN 1 UNIT/0.01 ML (CHARGE PER UNIT) IV ONE (15:45)
--- OUTSIDE RECORDS SUMMARY | 2017-07-15 16:02 | XMS REPORT | Clinical Summary ---
Author Author [facility] Organization [facility] Address Unknown Phone Unavailable Care Team Providers Care University Librarian Name Role Phone PCP Unavailable Source Comments Some departments are not documenting in the electronic medical record. If you do not see the information that you expected, contact Release of Information in the Health Information Management department at [phone] for further assistance in locating additional records.[facility] Allergies Not on File Current Medications Not [...]
--- OUTSIDE RECORDS SUMMARY | 2017-07-15 16:03 | XMS REPORT | Continuity of Care Document ---
Author Author [facility] Organization [facility] Address Unknown Phone Unavailable Allergies Active Description Code Type Severity Reaction Onset Reported/Identified Relationship to Patient Clinical Status Yes No Known Drug Allergies [id number] Drug Allergy Unknown N/A 01/16/2015 Medications There [...] 04/28/2014 LIDIA DIEHL DO Ot V74.8 05/05/2014 LIDIA DIEHL DO Ot 553.20 05/05/2014 LIDIA DIEHL [...] DIEHL DO Ot 414.01 CORONARY ATHEROSCLEROSIS OF [place] CORON 12/08/2014 LIDIA DIEHL DO Ot 530.81 [...] 01/18/2015 LIDIA DIEHL DO Ot 568.0 PERITONEAL [id number] 01/18/2015 LIDIA DIEHL DO Ot 585.2 CHRONIC KIDNEY DISEASE, STAGE II (MILD) 01/18/2015 LIDIA DIEHL DO Ot V12.71 PERSONAL HISTORY OF PEPTIC ULCER DISEASE 01/18/2015 LIDIA DIEHL DO Ot V12.72 PERSONAL HISTORY OF COLONIC POLYPS 01/18/2015 LIDIA DIEHL DO Ot V12.79 PERSONAL HISTORY OTH SPEC DIGESTIVE SYST 01/18/2015 LIDIA DIEHL DO Ot V16.0 FAMILY HX-GI MALIGNANCY 01/18/2015 LIDIA DIEHL DO, Ot V64.41 LAPAROSCOPIC SURGICAL PROC [...] Ot 553.20 VENTRAL HERNIA NOS 04/09/2016 LIDIA DIEHL DO Ot V72.63 PRE-PROCEDURAL [...] LYSIS-PERITONEAL ADHES 01/16/2015 Results Test Result Range [id number] - 04/03/16 15:27 Serum or plasma urea nitrogen measurement (mass/volume) 19 mg/dL 7-18 Serum or plasma creatinine measurement (mass/volume) 1.36 mg/dL 0.60-1.30 Serum or plasma urea nitrogen/creatinine mass ratio 14 NRG Serum or plasma creatinine measurement with calculation of estimated glomerular filtration rate 55 NRG Encounters ACCT No. Visit Date/Time Discharge Status Pt. Type Provider Facility Loc./Unit Complaint [id number] 02/13/2017 08:07:00 02/13/2017 11:02:00 DIS Outpatient TALITA ALLEN MD [facility] REHAB R SHOULDER RCT [id number] 06/05/2016 14:37:00 06/05/2016 23:59:59 CLS Outpatient LUCI SPARKS DO [facility] RAD PAIN IN RLQ, HX OF KIDNEY STONES [id number] 04/09/2016 11:15:00 04/09/2016 23:59:59 CLS Outpatient FAZAL DOZULAYROUTIE [facility] RAD ABD PAIN [id number] 04/03/2016 15:13:00 04/03/2016 23:59:59 CLS Outpatient FAZAL DOZULAYROUTIE [facility] LAB ABD PAIN PREP FOR CT [id number] 04/26/2015 07:44:00 04/26/2015 10:20:00 DIS Outpatient FAZAL DO, CHANDROUTIE [facility] SDC MULTIPLE ULCERS [id number] 04/24/2015 05:36:00 04/24/2015 23:59:59 CLS Outpatient FAZAL DO CHANDROUTIE [facility] PREOP MULTIPLE ULCERS [id number] 04/05/2015 05:41:00 04/05/2015 23:59:59 CLS Outpatient FAZAL DO CHANDROUTIE [facility] PREOP MULTIPLE ULCERS [id number] 01/27/2015 23:21:00 01/29/2015 14:50:00 DIS Inpatient FAZAL DO CHANDROUTIE [facility] SURGICAL SMALL BOWEL OBSTRUCTION [id number] 01/17/2015 07:26:00 01/18/2015 16:20:00 DIS Inpatient FAZAL DO, CHANDROUTIE [facility] SURGICAL ABDOMINAL PAIN [id number] 01/09/2015 09:44:00 01/09/2015 23:59:59 CLS Outpatient FAZAL DO, CHANDROUTIE [facility] PREOP ABDOMINAL PAIN [id number] 12/26/2014 10:04:00 12/26/2014 13:10:00 DIS Outpatient FAZAL DO CHANDROUTIE [facility] SDC ABDOMINAL DISTENSION; FAMILY HX COLON CANCER [id number] 12/21/2014 06:35:00 12/21/2014 23:59:59 CLS Outpatient FAZAL DO CHANDROUTIE [facility] PREOP ABNORMAL DISTORATION; FAMILY HX COLON CANCER [id number] 12/04/2014 02:17:00 12/08/2014 16:00:00 DIS Inpatient LIDIA DIEHL DO [facility] SURGICAL SMALL BOWEL OBSTRUCTION [id number] 03/30/2014 08:54:00 03/31/2014 17:00:00 DIS Outpatient LIDIA DIEHL DO [facility] SDC VENTAL HERNIA [id number] 03/28/2014 11:12:00 03/28/2014 23:59:59 CLS Outpatient LIDIA DIEHL DO [facility] PREOP VENTRAL HERNIA [id number] 01/09/2014 14:53:00 01/09/2014 23:59:59 CLS Outpatient NATALYA LYNCH, HILDA Alcaraz [facility] LAB KIDNEY LESIONS, HYPERLIPADEMA,CKD [id number] 12/28/2013 15:17:00 12/28/2013 23:59:59 CLS Outpatient LUCI SPARKS DO [facility] RAD DROPPED RAMP RT FOOT [id number] 05/28/2013 07:28:00 06/01/2013 13:19:00 DIS Inpatient FAZAL DO LIDIA [facility] SURGICAL SMALL BOWEL OBSTRUCTION [id number] 05/11/2013 11:18:00 05/11/2013 23:59:59 CLS Outpatient LUCI SPARKS DO [facility] RAD CELLULITTIS LT WRIST LAST 2 WEEKS [id number] 01/24/2013 09:47:00 01/24/2013 23:59:59 CLS Outpatient [id number] 10/28/2012 16:01:00 10/28/2012 23:59:59 CLS Outpatient LUCI SPARKS DO [facility] LAB CHEST PAINS [id number] 09/22/2012 01:30:00 09/24/2012 13:35:00 DIS Inpatient LUCI SPARKS DO [facility] 4TH INTRACTABLE RUQ ABD PAIN/CVA [id number] 03/06/2012 17:36:00 Document Registration [id number] 11/21/2011 11:11:00 Document Registration [id number] 11/13/2011 15:19:00 Document Registration [id number] 07/24/2011 17:11:00 Document Registration [id number] 05/30/2011 20:53:00 Document Registration [id number] 01/15/2011 11:32:00 Document Registration [id number] 12/14/2010 01:00:00 Document Registration [id number] 12/07/2010 14:00:00 Document Registration
[2017-07-15] MEDS ORDERED: cefTRIAXone INJECTION 1,000 MG in NS (IVPB) 50 ML IV ONE (16:15)
[2017-07-15 17:30] VITALS: BP 143/86
[2017-07-15] MEDS ORDERED: AZITHROMYCIN 500 MG/NS 250 ML IVPB IV NR ×2 (17:45)
[2017-07-15] MEDS: PROMETHAZINE/ CODEINE SYRUP 5 ML UDC PO PRN ×2 (17:54→23:51)
[2017-07-15] MEDS: ACETAMINOPHEN 325 MG TABLET/CAPLET (TYLENOL) PO PRN (17:54)
[2017-07-15] MEDS: NS IV 1000 ML 1,000 ML IV SCH (17:55)
[2017-07-15] MEDS ORDERED: GABA-488 PO (18:46)
[2017-07-15] MEDS ORDERED: CHOL5000 PO (18:46)
[2017-07-15] MEDS ORDERED: PROM25TA14 PO (18:46)
[2017-07-15] MEDS ORDERED: MONT10TA24 PO (18:46)
[2017-07-15] MEDS ORDERED: INSU100I23 SQ (18:46)
[2017-07-15] MEDS ORDERED: OMEG-9 PO (18:46)
[2017-07-15] MEDS ORDERED: INSU300I SQ (18:46)
[2017-07-15] MEDS ORDERED: UBID200C16 PO (18:46)
[2017-07-15] MEDS ORDERED: LISI-552 PO (18:46)
[2017-07-15] MEDS ORDERED: BACL10TA PO (18:46)
[2017-07-15] MEDS ORDERED: PITA4TAB2 PO (18:46)
[2017-07-15 19:02] VITALS: BP 148/86
[2017-07-15] MEDS ORDERED: RT-ALBUTEROL/IPRATROPIUM 3 ML (DUONEB) VIAL INH PRN (19:30)
[2017-07-15] MEDS: RT-ALBUTEROL/IPRATROPIUM 3 ML (DUONEB) VIAL INH SCH (19:42)
[2017-07-15 20:00] VITALS: BP 141/87
[2017-07-15] MEDS ORDERED: NS IV 1000 ML 1,000 ML IV STA (20:37)
[2017-07-15] MEDS: BENZONATATE 100 MG (TESSALON) CAPSULE PO SCH (20:45)
[2017-07-15] MEDS: inSUlin (REGULAR) HUMAN 1 UNIT/0.01 ML (CHARGE PER UNIT) SC SCH (22:14)
[2017-07-16] VITALS (7 sets, daily range): BP systolic 142–160; BP diastolic 86–98
[2017-07-16] MEDS: ACETAMINOPHEN 325 MG TABLET/CAPLET (TYLENOL) PO PRN ×3 (04:22→22:19)
[2017-07-16] MEDS: PROMETHAZINE/ CODEINE SYRUP 5 ML UDC PO PRN ×3 (06:06→19:01)
[2017-07-16 06:18] LABS: BASOPHILS % (AUTO) 0 % (0-10); EOSINOPHILS # (AUTO) 0.2 10^3/uL (0.0-0.3); EOSINOPHILS % (AUTO) 1 % (0-10); HEMATOCRIT 40 % (40-54); LYMPHOCYTES # (AUTO) 1.4 X 10^3 (1.0-4.0); LYMPHOCYTES % (AUTO) 9 % (12-44); MEAN CORPUSCULAR HEMOGLOBIN 33 PG (25-34); MEAN CORPUSCULAR HGB CONC 35 G/DL (32-36); MEAN CORPUSCULAR VOLUME 95 FL (80-99); MEAN PLATELET VOLUME 11.1 FL (7.4-10.4); MONOCYTES # (AUTO) 1.4 X 10^3 (0.0-1.0); MONOCYTES % (AUTO) 9 % (0-12); NEUTROPHILS # (AUTO) 12.2 X 10^3 (1.8-7.8); NEUTROPHILS % (AUTO) 80 % (42-75); PLATELET COUNT 180 10^3/uL (130-400); RED BLOOD COUNT 4.24 10^6/uL (4.35-5.85); RED CELL DISTRIBUTION WIDTH 12.1 % (10.0-14.5); WHITE BLOOD COUNT 15.2 10^3/uL (4.3-11.0)
[2017-07-16] MEDS: inSUlin (REGULAR) HUMAN 1 UNIT/0.01 ML (CHARGE PER UNIT) SC SCH ×4 (06:18→22:21)
[2017-07-16 06:49] LABS: BUN/CREATININE RATIO 16; CALCIUM 8.7 MG/DL (8.5-10.1); CARBON DIOXIDE 21 MMOL/L (21-32); CHLORIDE 105 MMOL/L (98-107); CREATININE SERUM 1.01 MG/DL (0.60-1.30); GFR ESTIMATED > 60; GLUCOSE 291 MG/DL (70-105); SODIUM 139 MMOL/L (135-145)
--- NOTE | 2017-07-16 07:31 | History & Physicial ---
History of Present Illness History of Present Illness Reason for visit/HPI patient came to the office yesterday feeling terrible.Patient coughing much. . Patient failed outpatient treatment. Patient sent to emergency room. Chest x-ray shows right lower lobe pneumonia. patient is elevated white blood cell count put on prednisone. Patient admitted Lactic acid elevated. Patient is cold and cough for one week. Surgeries. Tonsillectomy, appendectomy, gallbladder, acid reflux, GI obstruction carpal tunnel,. Right wrist fracture fusion L4 and L5 and S1,and C4 through C7 and left knee Date of Admission Jul 15, 2017 at 15:58 Time Seen by Provider: 07:25 I consulted on this patient on 07/16/17 07:25 Attending Physician Tarun Sparks DO Admitting Physician Tarun Sparks DO Consult Allergies and Home Medications Allergies Coded Allergies: No Known Drug Allergies (Unverified , 01/16/15) Home Medications Allopurinol 300 Mg Tablet, 300 MG PO DAILY, (Reported) Ascorbate Calcium 500 Mg Tablet, 500 MG PO BID, (Reported) Baclofen 10 Mg Tablet, 10 MG PO TID PRN for SPASMS, (Reported) Cholecalciferol (Vitamin D3) 5,000 Unit Capsule, 5,000 UNIT PO DAILY, (Reported) Folic Acid/Multivits-Min/Lut 1 Each Tab.chew, 2 TAB.CHEW PO DAILY, (Reported) Gabapentin 300 Mg Capsule, 300 MG PO TID, (Reported) Take 2 300 mg capsules TID Insulin Glargine,Hum.rec.anlog 300 Unit/1 Ml Insuln.pen, 60 UNIT SQ with dinner, (Reported) Insulin Lispro 100 Unit/1 Ml Insuln.pen, 28 UNIT SQ AC, (Reported) Takes one additional unit for every 50 Mg/DL points above 150 Mg/DL Lisinopril 20 Mg Tablet, 20 MG PO DAILY, (Reported) Metoprolol Tartrate 25 Mg Tablet, 25 MG PO BID, (Reported) Montelukast Sodium 10 Mg Tablet, 10 MG PO HS, (Reported) [place]-3/Dha/Epa/Fish Oil 1 Each Capsule.dr, 2 TAB PO BID, (Reported) Pitavastatin Calcium 4 Mg Tablet, 4 MG PO DAILY, (Reported) Promethazine HCl 25 Mg Tablet, 25 MG PO Q6H PRN for NAUSEA/VOMITING, (Reported) Ubidecarenone 100 Mg Capsule, 100 MG PO DAILY, (Reported) Ubidecarenone 200 Mg Capsule, 200 MG PO DAILY, (Reported) takes in addition to 100 mg tab for a total of 300 mg daily Past Qyvbexu-Jpbtjw-Peoprj Hx Patient Social History Marrital Status: Employed/Student: unemployed Alcohol Use: Occasionally Uses Alcohol Beverage of Choice: Beer, [place] Recreational Drug Use: No Smoking Status: Never a Smoker Physical Abuse Screen: No Sexual Abuse: No Recent Foreign Travel: No Contact w/other who traveled: No Recent Hopitalizations: No Recent Infectious Disease Expo: No Immunizations Up To Date Tetanus Booster (TDap): Unknown Pediatric: Yes Date of Pneumonia Vaccine: Feb 24, 2017 Date of Influenza Vaccine: Feb 24, 2017 Seasonal Allergies Seasonal Allergies: Yes Surgeries Yes (LITHOTRIPSY, BACK, L KNEE ACL REPAIR, WISDOM TEETH, COLONOSCOPY/POLYPECTOMY ) Abdominal, Adenoidectomy, Appendectomy, Gallbladder, Orthopedic, Tonsillectomy Respiratory Yes Pneumonia Currently Using CPAP: No Currently Using BIPAP: No Cardiovascular Yes (STRESS TEST COUPLE YEARS AGO AT [facility]) High Cholesterol, Hypertension Neurological Yes Headaches /Migraines Reproductive System Hx Reproductive Disorders: No Sexually Transmitted Disease: No HIV/AIDS: No Genitourinary Yes Kidney Stones, Renal Failure Gastrointestinal Yes (ABDOMINAL ADHESIONS, FREQUENT SMALL BOWEL OBSTRUCTIONS) Abdominal Hernia, Obstructive Bowel, Polyps, Gall Bladder Disease Musculoskeletal Yes Degenerate Disk Disease, Arthritis, Fibromyalgia, Rheumatoid Arthritis, Back Injury, Chronic Back Pain, Fractures, Gout Endocrine History of Endocrine Disorders: Yes Endocrine Disorders: Diabetes, Insulin dep Are Your Blood Sugars Over 250: No HEENT History of HEENT Disorders: No HEENT Disorders: Tonsilitis Loss of Vision: Denies Hearing Impairment: Denies Cancer No Psychosocial History of Psychiatric Problem: Yes Behavioral Health Disorders: Anxiety, Depression Integumentary History of Skin or Integumenta: No Blood Transfusions History of Blood Disorders: No Adverse Reaction to a Blood Tr: No Family Medical History Family Hx: Abdominal aortic aneurysm 09 BROTHER Cancer 03 MOTHER Cancer of colon 03 MOTHER 09 SISTER 19 MOTHER FH: COPD (chronic obstructive pulmonary disease) 19 FATHER FH: leukemia 09 SISTER 19 MOTHER FHx: stroke 19 FATHER Family history: Diabetes mellitus 09 BROTHER 09 SISTER 09 SISTER 09 SISTER Family history: Gastrointestinal disease 03 MOTHER 09 BROTHER Constitutional: chills, weakness EENTM: no symptoms reported Respiratory: cough, wheezing Cardiovascular: no symptoms reported Gastrointestinal: no symptoms reported Physical Exam Vital Signs Vital Signs - First Documented 07/15/17 07/15/17 14:35 14:52 Temp 97.9 Pulse 127 Resp 18 B/P (MAP) 137/102 (114) Pulse Ox 95 O2 Delivery Room Air Capillary Refill : Less Than 3 Seconds General Appearance: No Apparent Distress, WD/WN Eyes: Bilateral Eye Normal Inspection HEENT: Normal ENT Inspection Neck: Full Range of Motion, Normal Inspection Respiratory: Decreased Breath Sounds, Other (coughing) Cardiovascular: Regular Rate, Rhythm, No Murmur Gastrointestinal: Non Tender, Soft Assessment/Plan Assessment and Plan pneumonia. Sepsis. Diabetes. Failure to outpatient treatment. Hypertension. Hyperlipidemia. Problems: Clinical Quality Measures DVT/VTE Risk/Contraindication: Risk Factor Score Per Nursin RFS Level Per Nursing on Admit: 4+=Very High TARUN SPARKS DO Jul 16, 2017 07:31
[2017-07-16] MEDS: RT-ALBUTEROL/IPRATROPIUM 3 ML (DUONEB) VIAL INH SCH ×2 (08:05→18:43)
[2017-07-16] MEDS ORDERED: METO-333 PO (08:57)
[2017-07-16] MEDS ORDERED: GABA-488 PO (08:57)
[2017-07-16] MEDS ORDERED: ASCO-262 PO (08:57)
[2017-07-16] MEDS ORDERED: ALLO300T2 PO (08:57)
[2017-07-16] MEDS ORDERED: FOLI-88 PO (08:57)
[2017-07-16] MEDS: ENOXAPARIN 40 MG/0.4 ML (LOVENOX) SYR SC SCH (09:48)
[2017-07-16] MEDS: NS IV 1000 ML 1,000 ML IV SCH ×2 (09:48→09:55)
[2017-07-16] MEDS: lisINopril 20 MG (PRINIVIL) TABLET PO SCH (09:49)
[2017-07-16] MEDS: ALLOPURINOL 300 MG (ZYLOPRIM) TAB PO SCH (09:49)
[2017-07-16] MEDS: BENZONATATE 100 MG (TESSALON) CAPSULE PO SCH ×3 (09:49→22:20)
[2017-07-16] MEDS: meTOprolol TARTRATE 25 MG (LOPRESSOR) TABLET PO SCH ×2 (09:49→22:20)
[2017-07-16] MEDS: AZITHROMYCIN 250 MG TAB (ZITHROMAX) PO SCH (09:49)
[2017-07-16] MEDS: cefTRIAXone 1 GM/NS 50 ML IVPB IV SCH ×2 (09:49)
[2017-07-16] MEDS ORDERED: PATIENT MAY USE OWN MED,SINGLE MED PO SCH (11:45)
[2017-07-16] MEDS: inSUlin ASPART (NovoLOG) 1 UNIT/0.01 ML (CHARGE PER UNIT) SC SCH ×2 (12:30→16:30)
[2017-07-16] MEDS: BACLOFEN 10 MG (LIORESAL) TAB PO PRN ×2 (12:37→19:01)
[2017-07-16] MEDS: OMEGA 3 (FISH OIL) 1000 MG CAP PO SCH (16:35)
[2017-07-16] MEDS: INSULIN GLARGINE HUM REC ANLOG 300 UNIT/ML SQ SCH (18:41)
[2017-07-16] MEDS ORDERED: ONDANSETRON 4 MG/2 ML (SDV) Z0FRAN IVP PRN (19:00)
[2017-07-16] MEDS: GABAPENTIN 300 MG (NEURONTIN) CAP PO SCH (22:19)
[2017-07-16] MEDS: ASCORBIC ACID (VIT C) 500 MG TABLET PO SCH (22:20)
[2017-07-16] MEDS: ATORVASTATIN 20 MG (LIPITOR) TABLET PO SCH (22:20)
[2017-07-16] MEDS: MONTELUKAST 10 MG (SINGULAIR) TAB PO SCH (22:20)
[2017-07-17] MEDS: BACLOFEN 10 MG (LIORESAL) TAB PO PRN (01:19)
[2017-07-17] MEDS: PROMETHAZINE/ CODEINE SYRUP 5 ML UDC PO PRN ×3 (01:20→22:50)
[2017-07-17] MEDS: NS IV 1000 ML 1,000 ML IV SCH (03:15)
[2017-07-17 03:34] VITALS: BP 151/91
[2017-07-17] MEDS: OMEGA 3 (FISH OIL) 1000 MG CAP PO SCH ×2 (06:12→16:13)
[2017-07-17] MEDS: inSUlin ASPART (NovoLOG) 1 UNIT/0.01 ML (CHARGE PER UNIT) SC SCH ×3 (06:12→16:13)
[2017-07-17] MEDS: inSUlin (REGULAR) HUMAN 1 UNIT/0.01 ML (CHARGE PER UNIT) SC SCH ×4 (06:12→22:52)
[2017-07-17] MEDS: MULTIVIT W/MINERALS TAB (THERAGRAN M) PO SCH (06:12)
[2017-07-17 06:40] LABS: HEMOGLOBIN 14.1 G/DL (13.3-17.7); MEAN PLATELET VOLUME 11.1 FL (7.4-10.4); RED BLOOD COUNT 4.33 10^6/uL (4.35-5.85); RED CELL DISTRIBUTION WIDTH 12.2 % (10.0-14.5); WHITE BLOOD COUNT 14.9 10^3/uL (4.3-11.0)
[2017-07-17 06:51] LABS: BUN/CREATININE RATIO 12; CALCIUM 9.6 MG/DL (8.5-10.1); CARBON DIOXIDE 25 MMOL/L (21-32); CHLORIDE 106 MMOL/L (98-107); CREATININE SERUM 1.02 MG/DL (0.60-1.30); GFR ESTIMATED > 60; GLUCOSE 199 MG/DL (70-105); POTASSIUM 3.9 MMOL/L (3.6-5.0); SODIUM 141 MMOL/L (135-145)
[2017-07-17] MEDS: RT-ALBUTEROL/IPRATROPIUM 3 ML (DUONEB) VIAL INH SCH ×2 (07:19→20:31)
--- NOTE | 2017-07-17 07:27 | Progress Note (SOAP) ---
Subjective Time Seen by Provider: 07:20 Subjective/Events-last exam patient feels 30 percent better only. Patient is nauseous. Patient still coughing. Patient has decreased breath sounds. Pneumonia. Diabetes Objective Exam Vital Signs Date Time Temp Pulse Resp B/P (MAP) Pulse Ox O2 Delivery O2 Flow Rate FiO2 07/17/17 03:34 98.8 107 18 151/91 (111) 94 Room Air 07/17/17 01:00 73 07/16/17 23:01 100.0 113 20 160/98 (118) 96 Room Air 07/16/17 22:19 100.0 07/16/17 21:00 Room Air 07/16/17 20:00 99.9 121 24 143/86 (105) 95 Room Air 07/16/17 19:00 90 07/16/17 18:47 93 Room Air 07/16/17 16:00 98.5 113 22 159/96 (117) 95 Room Air 07/16/17 15:31 95 Room Air 07/16/17 13:00 94 07/16/17 12:00 98.1 110 20 157/95 (115) 93 Room Air 07/16/17 09:00 Room Air 07/16/17 08:05 94 Room Air 07/16/17 08:00 98.5 126 20 156/90 (112) 94 Room Air I & O 07/17/17 07:00 Intake Total 2860 ml Output Total 3970 ml Balance -1110 ml Capillary Refill : Less Than 3 Seconds General Appearance: No Apparent Distress, WD/WN HEENT: Normal ENT Inspection Neck: Full Range of Motion, Normal Inspection Respiratory: Decreased Breath Sounds, Other (coughing) Cardiovascular: Regular Rate, Rhythm, No Murmur Gastrointestinal: non tender, soft, other (auseous) Results Lab Laboratory Tests 07/16/17 10:38: Glucometer 265H 07/16/17 16:13: Glucometer 199H 07/16/17 21:04: Glucometer 194H 07/17/17 05:15: White Blood Count 14.9H, Red Blood Count 4.33L, Hemoglobin 14.1, Hematocrit 41, Mean Corpuscular Volume 95, Mean Corpuscular Hemoglobin 33, Mean Corpuscular Hemoglobin Concent 34, Red Cell Distribution Width 12.2, Platelet Count 192, Mean Platelet Volume 11.1H, Sodium Level 141, Potassium Level 3.9, Chloride Level 106, Carbon Dioxide Level 25, Anion Gap 10, Blood Urea Nitrogen 12, Creatinine 1.02, Estimat Glomerular Filtration Rate > 60, BUN/Creatinine Ratio 12, Glucose Level 199H, Calcium Level 9.6 07/17/17 05:53: Glucometer 220H Microbiology 07/15/17 Blood Culture - Preliminary, Resulted No growth Assessment/Plan Assessment/Plan Assess & Plan/Chief Complaint pneumonia. Diabetes. Nauseous. Patient still a work in progress Clinical Quality Measures DVT/VTE Risk/Contraindication: Risk Factor Score Per Nursin RFS Level Per Nursing on Admit: 4+=Very High LUCI SPARKS DO Jul 17, 2017 07:27
[2017-07-17] MEDS: ENOXAPARIN 40 MG/0.4 ML (LOVENOX) SYR SC SCH (07:38)
[2017-07-17 08:00] VITALS: BP 139/96
--- NOTE | 2017-07-17 08:20 | Diagnostic Imaging Report ---
INDICATION: Cough and shortness of breath and pneumonia. PA and lateral chest obtained at 0725 hours a.m. and compared with 07/15/2017. Heart is borderline in size. There is mild central vascular prominence. There is some mild infiltrate in the right base which appears similar to the prior study. The left lung is clear. There is no pneumothorax or pleural fluid. IMPRESSION: Unchanged mild infiltrate in the right lung base, similar to 07/15/2017. No other abnormal findings. Dictated by: Dictated on workstation # [id number]
[2017-07-17] MEDS ORDERED: NON-FORMULARY MEDICATION 1 EA EA (Ubidecarenone (Co Q-10) 100 MG) PO SCH (09:00)
[2017-07-17] MEDS ORDERED: NON-FORMULARY MEDICATION 1 EA EA (Ubidecarenone (Co Q-10) 200 MG) PO SCH (09:00)
[2017-07-17] MEDS: BENZONATATE 100 MG (TESSALON) CAPSULE PO SCH ×3 (09:22→22:49)
[2017-07-17] MEDS: lisINopril 20 MG (PRINIVIL) TABLET PO SCH (09:22)
[2017-07-17] MEDS: cefTRIAXone 1 GM/NS 50 ML IVPB IV SCH ×2 (09:22)
[2017-07-17] MEDS: AZITHROMYCIN 250 MG TAB (ZITHROMAX) PO SCH (09:22)
[2017-07-17] MEDS: VITAMIN D3 5,000 UNITS (CHOLECALCIFEROL ) CAPSULE PO SCH (09:22)
[2017-07-17] MEDS: ASCORBIC ACID (VIT C) 500 MG TABLET PO SCH ×2 (09:22→22:49)
[2017-07-17] MEDS: meTOprolol TARTRATE 25 MG (LOPRESSOR) TABLET PO SCH ×2 (09:22→22:49)
[2017-07-17] MEDS: ALLOPURINOL 300 MG (ZYLOPRIM) TAB PO SCH (09:22)
[2017-07-17] MEDS: GABAPENTIN 300 MG (NEURONTIN) CAP PO SCH ×2 (09:22→22:55)
[2017-07-17] MEDS: ACETAMINOPHEN 325 MG TABLET/CAPLET (TYLENOL) PO PRN ×3 (10:00→22:49)
[2017-07-17 12:00] VITALS: BP 124/81
[2017-07-17 15:45] VITALS: BP 151/78
[2017-07-17] MEDS: INSULIN GLARGINE HUM REC ANLOG 300 UNIT/ML SQ SCH (16:15)
[2017-07-17 19:40] VITALS: BP 145/91
[2017-07-17] MEDS: MONTELUKAST 10 MG (SINGULAIR) TAB PO SCH (22:49)
[2017-07-17] MEDS: ATORVASTATIN 20 MG (LIPITOR) TABLET PO SCH (22:49)
[2017-07-18] VITALS: BP 135/65
[2017-07-18] MEDS: NS IV 1000 ML 1,000 ML IV SCH (03:01)
[2017-07-18 04:00] VITALS: BP 143/90
[2017-07-18] MEDS: inSUlin ASPART (NovoLOG) 1 UNIT/0.01 ML (CHARGE PER UNIT) SC SCH ×3 (06:05→16:51)
[2017-07-18] MEDS: inSUlin (REGULAR) HUMAN 1 UNIT/0.01 ML (CHARGE PER UNIT) SC SCH ×4 (06:05→21:05)
[2017-07-18] MEDS: MULTIVIT W/MINERALS TAB (THERAGRAN M) PO SCH (06:05)
[2017-07-18] MEDS: OMEGA 3 (FISH OIL) 1000 MG CAP PO SCH ×2 (06:05→16:51)
[2017-07-18 06:20] LABS: HEMOGLOBIN 14.1 G/DL (13.3-17.7); RED BLOOD COUNT 4.3 10^6/uL (4.35-5.85); RED CELL DISTRIBUTION WIDTH 12.1 % (10.0-14.5); WHITE BLOOD COUNT 13.9 10^3/uL (4.3-11.0)
[2017-07-18 06:37] LABS: BUN/CREATININE RATIO 15; CALCIUM 9.4 MG/DL (8.5-10.1); CARBON DIOXIDE 22 MMOL/L (21-32); CHLORIDE 106 MMOL/L (98-107); CREATININE SERUM 0.97 MG/DL (0.60-1.30); GFR ESTIMATED > 60; GLUCOSE 166 MG/DL (70-105); SODIUM 140 MMOL/L (135-145)
[2017-07-18] MEDS: ACETAMINOPHEN 325 MG TABLET/CAPLET (TYLENOL) PO PRN ×2 (07:30→15:25)
[2017-07-18 08:00] VITALS: BP 132/88
[2017-07-18] MEDS: ASCORBIC ACID (VIT C) 500 MG TABLET PO SCH ×2 (08:17→20:14)
[2017-07-18] MEDS: BENZONATATE 100 MG (TESSALON) CAPSULE PO SCH ×3 (08:17→20:14)
[2017-07-18] MEDS: VITAMIN D3 5,000 UNITS (CHOLECALCIFEROL ) CAPSULE PO SCH (08:17)
[2017-07-18] MEDS: GABAPENTIN 300 MG (NEURONTIN) CAP PO SCH ×2 (08:17→20:15)
[2017-07-18] MEDS: meTOprolol TARTRATE 25 MG (LOPRESSOR) TABLET PO SCH ×2 (08:17→20:14)
[2017-07-18] MEDS: lisINopril 20 MG (PRINIVIL) TABLET PO SCH (08:17)
[2017-07-18] MEDS: AZITHROMYCIN 250 MG TAB (ZITHROMAX) PO SCH (08:18)
[2017-07-18] MEDS: cefTRIAXone 1 GM/NS 50 ML IVPB IV SCH ×2 (08:18)
[2017-07-18] MEDS: ALLOPURINOL 300 MG (ZYLOPRIM) TAB PO SCH (08:18)
[2017-07-18] MEDS: ENOXAPARIN 40 MG/0.4 ML (LOVENOX) SYR SC SCH (08:18)
--- NOTE | 2017-07-18 09:45 | Diagnostic Imaging Report ---
PATIENT HISTORY: Right lower lobe pneumonia. TECHNIQUE: 2 views of the chest COMPARISON: 07/17/2017 FINDINGS: Lung volumes are mildly low. There is patchy airspace opacity in the right lower lobe, which appear stable since the prior study. Minimal opacities are seen in the left lung base, which may represent atelectasis. The cardiac silhouette is stable in size. No pneumothorax or pleural effusion is seen. Hardware in the cervical spine is stable. IMPRESSION: 1. Stable opacities in the right lower lobe, concerning for pneumonia in the appropriate clinical setting. 2. Mildly increased opacities in the left lung base, thought to represent atelectasis. Dictated by: Dictated on workstation # [id number]
[2017-07-18] MEDS: RT-ALBUTEROL/IPRATROPIUM 3 ML (DUONEB) VIAL INH SCH ×3 (10:37→19:37)
[2017-07-18] MEDS: PROMETHAZINE/ CODEINE SYRUP 5 ML UDC PO PRN (12:10)
[2017-07-18] MEDS: BACLOFEN 10 MG (LIORESAL) TAB PO PRN (12:10)
--- NOTE | 2017-07-18 13:09 | Progress Note-Hospitalist ---
Progress Note Progress Notes/Assess & Plan Date Seen 07/18/17 Time Seen by Provider: 11:45 Diagonsis/Assessment & Plan Patient doing much better but the cough is constant Uses Tessalon Perles and promethazine with codeine without results We will add IV steroids and Pulmicort nebulized treatments twice daily along with Tussionex to help with the cough Review chest x-ray Reviewed labs Reviewed meds Ambulating well Will Hep-Lock IV fluid No fever, vital signs stable, pleasant, improved, family at bedside Regular rate and rhythm, diminished breath sounds in the bases No edema Coughing during exam frequently Laboratory Tests 07/18/17 06:00 07/18/17 06:10 Assessment: Pneumonia Severe cough Nausea Plan: Add IV steroids At Pulmicort nebulizer treatments Tussionex Monitor closely IRINEO GONSALEZ DO Jul 18, 2017 13:09
[2017-07-18] MEDS: methylPREDNISolone 40 MG/ML (Solu-MEDROL) VIAL IV SCH ×3 (13:54→23:01)
[2017-07-18] MEDS: HYDROCODONE/CHLOR 10MG/5 ML (TUSSIONEX SUSP) 5ML UDC PO SCH ×2 (13:54→20:15)
[2017-07-18 16:06] VITALS: BP 139/90
[2017-07-18] MEDS: INSULIN GLARGINE HUM REC ANLOG 300 UNIT/ML SQ SCH (16:52)
[2017-07-18] MEDS: RT-BUDESONIDE NEBS 0.5 MG/2ML (PULMICORT) AMP INH SCH (19:37)
[2017-07-18 20:12] VITALS: BP 143/94
[2017-07-18] MEDS: MONTELUKAST 10 MG (SINGULAIR) TAB PO SCH (20:14)
[2017-07-18] MEDS: ATORVASTATIN 20 MG (LIPITOR) TABLET PO SCH (20:15)
[2017-07-19] VITALS: BP 131/87
[2017-07-19] MEDS: ACETAMINOPHEN 325 MG TABLET/CAPLET (TYLENOL) PO PRN ×2 (00:18→20:35)
[2017-07-19] MEDS: RT-ALBUTEROL/IPRATROPIUM 3 ML (DUONEB) VIAL INH SCH ×4 (02:00→21:08)
[2017-07-19 05:51] LABS: BASOPHILS % (AUTO) 0 % (0-10); EOSINOPHILS % (AUTO) 0 % (0-10); HEMATOCRIT 40 % (40-54); HEMOGLOBIN 14.3 G/DL (13.3-17.7); LYMPHOCYTES # (AUTO) 1.2 X 10^3 (1.0-4.0); LYMPHOCYTES % (AUTO) 8 % (12-44); MEAN CORPUSCULAR HEMOGLOBIN 33 PG (25-34); MEAN CORPUSCULAR HGB CONC 36 G/DL (32-36); MEAN CORPUSCULAR VOLUME 92 FL (80-99); MEAN PLATELET VOLUME 10.7 FL (7.4-10.4); MONOCYTES # (AUTO) 0.3 X 10^3 (0.0-1.0); MONOCYTES % (AUTO) 2 % (0-12); NEUTROPHILS # (AUTO) 13.1 X 10^3 (1.8-7.8); NEUTROPHILS % (AUTO) 90 % (42-75); PLATELET COUNT 238 10^3/uL (130-400); RED BLOOD COUNT 4.39 10^6/uL (4.35-5.85); RED CELL DISTRIBUTION WIDTH 11.8 % (10.0-14.5); WHITE BLOOD COUNT 14.6 10^3/uL (4.3-11.0)
[2017-07-19] MEDS: methylPREDNISolone 40 MG/ML (Solu-MEDROL) VIAL IV SCH ×4 (05:59→23:45)
[2017-07-19] MEDS: inSUlin (REGULAR) HUMAN 1 UNIT/0.01 ML (CHARGE PER UNIT) SC SCH ×2 (05:59→10:56)
[2017-07-19] MEDS: inSUlin ASPART (NovoLOG) 1 UNIT/0.01 ML (CHARGE PER UNIT) SC SCH ×5 (05:59→21:42)
[2017-07-19] MEDS: OMEGA 3 (FISH OIL) 1000 MG CAP PO SCH ×2 (06:00→16:17)
[2017-07-19] MEDS: MULTIVIT W/MINERALS TAB (THERAGRAN M) PO SCH (06:00)
[2017-07-19 06:08] LABS: ALANINE AMINOTRANSFERASE 51 U/L (0-55); ALBUMIN 3.3 GM/DL (3.2-4.5); ALKALINE PHOSPHATASE 73 U/L (40-136); BILIRUBIN,TOTAL 0.4 MG/DL (0.1-1.0); BUN/CREATININE RATIO 23; CALCIUM 9.6 MG/DL (8.5-10.1); CARBON DIOXIDE 22 MMOL/L (21-32); CHLORIDE 103 MMOL/L (98-107); CREATININE SERUM 1.06 MG/DL (0.60-1.30); GFR ESTIMATED > 60; GLUCOSE 311 MG/DL (70-105); POTASSIUM 4.2 MMOL/L (3.6-5.0); SODIUM 137 MMOL/L (135-145); TOTAL PROTEIN 7.6 GM/DL (6.4-8.2)
[2017-07-19 08:00] VITALS: BP 146/82
[2017-07-19] MEDS: ENOXAPARIN 40 MG/0.4 ML (LOVENOX) SYR SC SCH (08:15)
[2017-07-19] MEDS: VITAMIN D3 5,000 UNITS (CHOLECALCIFEROL ) CAPSULE PO SCH (08:16)
[2017-07-19] MEDS: ALLOPURINOL 300 MG (ZYLOPRIM) TAB PO SCH (08:16)
[2017-07-19] MEDS: HYDROCODONE/CHLOR 10MG/5 ML (TUSSIONEX SUSP) 5ML UDC PO SCH ×2 (08:16→20:35)
[2017-07-19] MEDS: BENZONATATE 100 MG (TESSALON) CAPSULE PO SCH ×3 (08:16→20:35)
[2017-07-19] MEDS: lisINopril 20 MG (PRINIVIL) TABLET PO SCH (08:16)
[2017-07-19] MEDS: meTOprolol TARTRATE 25 MG (LOPRESSOR) TABLET PO SCH ×2 (08:16→20:35)
[2017-07-19] MEDS: cefTRIAXone 1 GM/NS 50 ML IVPB IV SCH ×2 (08:16)
[2017-07-19] MEDS: GABAPENTIN 300 MG (NEURONTIN) CAP PO SCH ×2 (08:16→20:35)
[2017-07-19] MEDS: AZITHROMYCIN 250 MG TAB (ZITHROMAX) PO SCH (08:16)
[2017-07-19] MEDS: ASCORBIC ACID (VIT C) 500 MG TABLET PO SCH ×2 (08:16→20:35)
--- NOTE | 2017-07-19 11:26 | Progress Note-Hospitalist ---
Progress Note Progress Notes/Assess & Plan Date Seen 07/19/17 Time Seen by Provider: 11:30 Diagonsis/Assessment & Plan Patient doing much better and it seems like the cough suppressant change has really helped him Staph aureus noted on sputum culture so we will discontinue Rocephin and start Levaquin per sensitivity profile Bowel movements normal Ambulating well Responding to low-dose steroids for bronchospasm No fever, vital signs stable, pleasant, improved Regular rate and rhythm, diminished breath sounds in the bases No edema Coughing during exam frequently Laboratory Tests 07/19/17 05:15 Assessment: Pneumonia with staph aureus we'll discontinue Rocephin and add Levaquin per sensitivity profile Severe cough due to acute bronchospasm Nausea Leukocytosis due to steroid effect Hyperglycemia due to steroids Plan: Maintain low dose IV steroids At Pulmicort nebulizer treatments Savi DC Rocephin and add Levaquin Monitor closely IRINEO GONSALEZ DO Jul 19, 2017 11:26
[2017-07-19] MEDS ORDERED: LEVOFLOXACIN 750 MG TAB (LEVAQUIN) PO SCH (12:15)
[2017-07-19] MEDS: BACLOFEN 10 MG (LIORESAL) TAB PO PRN ×2 (13:34→19:24)
[2017-07-19] MEDS: RT-BUDESONIDE NEBS 0.5 MG/2ML (PULMICORT) AMP INH SCH ×2 (14:45→21:09)
[2017-07-19 15:50] VITALS: BP 135/85
[2017-07-19] MEDS: INSULIN GLARGINE HUM REC ANLOG 300 UNIT/ML SQ SCH (16:17)
[2017-07-19] MEDS: ATORVASTATIN 20 MG (LIPITOR) TABLET PO SCH (20:35)
[2017-07-19 20:36] VITALS: BP 138/94
[2017-07-19] MEDS: MONTELUKAST 10 MG (SINGULAIR) TAB PO SCH (20:36)
[2017-07-20] VITALS: BP 155/89
[2017-07-20] MEDS: RT-ALBUTEROL/IPRATROPIUM 3 ML (DUONEB) VIAL INH SCH ×3 (02:54→14:31)
[2017-07-20] MEDS: inSUlin ASPART (NovoLOG) 1 UNIT/0.01 ML (CHARGE PER UNIT) SC SCH ×4 (05:51→12:20)
[2017-07-20] MEDS: MULTIVIT W/MINERALS TAB (THERAGRAN M) PO SCH (05:51)
[2017-07-20] MEDS: methylPREDNISolone 40 MG/ML (Solu-MEDROL) VIAL IV SCH (05:51)
[2017-07-20] MEDS: OMEGA 3 (FISH OIL) 1000 MG CAP PO SCH (05:51)
[2017-07-20 05:54] LABS: BASOPHILS % (AUTO) 0 % (0-10); EOSINOPHILS % (AUTO) 0 % (0-10); HEMATOCRIT 39 % (40-54); HEMOGLOBIN 13.6 G/DL (13.3-17.7); LYMPHOCYTES # (AUTO) 1.2 X 10^3 (1.0-4.0); LYMPHOCYTES % (AUTO) 5 % (12-44); MEAN CORPUSCULAR HEMOGLOBIN 33 PG (25-34); MEAN CORPUSCULAR HGB CONC 35 G/DL (32-36); MEAN CORPUSCULAR VOLUME 92 FL (80-99); MEAN PLATELET VOLUME 10.8 FL (7.4-10.4); MONOCYTES # (AUTO) 0.7 X 10^3 (0.0-1.0); MONOCYTES % (AUTO) 3 % (0-12); NEUTROPHILS % (AUTO) 91 % (42-75); PLATELET COUNT 240 10^3/uL (130-400); RED BLOOD COUNT 4.18 10^6/uL (4.35-5.85); RED CELL DISTRIBUTION WIDTH 11.9 % (10.0-14.5); WHITE BLOOD COUNT 21.9 10^3/uL (4.3-11.0)
[2017-07-20] MEDS: ACETAMINOPHEN 325 MG TABLET/CAPLET (TYLENOL) PO PRN (05:55)
[2017-07-20] MEDS: BACLOFEN 10 MG (LIORESAL) TAB PO PRN (05:55)
[2017-07-20 06:02] LABS: ALANINE AMINOTRANSFERASE 69 U/L (0-55); ALBUMIN 3.3 GM/DL (3.2-4.5); ALKALINE PHOSPHATASE 67 U/L (40-136); BILIRUBIN,TOTAL 0.4 MG/DL (0.1-1.0); BUN/CREATININE RATIO 30; CALCIUM 9.5 MG/DL (8.5-10.1); CARBON DIOXIDE 18 MMOL/L (21-32); CHLORIDE 104 MMOL/L (98-107); CREATININE SERUM 1.05 MG/DL (0.60-1.30); GFR ESTIMATED > 60; GLUCOSE 321 MG/DL (70-105); POTASSIUM 4.6 MMOL/L (3.6-5.0); SODIUM 137 MMOL/L (135-145); TOTAL PROTEIN 7.5 GM/DL (6.4-8.2)
--- NOTE | 2017-07-20 07:36 | Progress Note (SOAP) ---
Subjective Time Seen by Provider: 07:35 Subjective/Events-last exam Pneumonia. Patient feels 80 percent better. Patient not coughing much. White blood cell count elevated due to prednisone Blood sugars elevating due to prednisone. To get chest x-ray this morning Objective Exam Vital Signs Date Time Temp Pulse Resp B/P (MAP) Pulse Ox O2 Delivery O2 Flow Rate FiO2 07/20/17 02:54 94 Room Air 07/20/17 00:00 96.9 102 18 155/89 (111) 94 Room Air 07/19/17 21:18 Room Air 07/19/17 21:12 Room Air 07/19/17 21:09 94 Room Air 07/19/17 20:36 108 138/94 (109) 07/19/17 15:50 98.1 114 20 135/85 (102) 93 Room Air 07/19/17 14:45 94 Room Air 07/19/17 09:41 94 Room Air 07/19/17 09:00 Room Air 07/19/17 08:00 96.1 108 20 146/82 (103) 94 Room Air I & O 07/20/17 07:00 Intake Total 1780 ml Output Total 2685 ml Balance -905 ml Capillary Refill : Less Than 3 Seconds General Appearance: No Apparent Distress, WD/WN HEENT: Normal ENT Inspection Neck: Full Range of Motion, Normal Inspection Respiratory: Chest Non Tender, No Accessory Muscle Use, No Respiratory Distress , Decreased Breath Sounds Cardiovascular: Regular Rate, Rhythm, No Murmur Gastrointestinal: non tender, soft Results Lab Laboratory Tests 07/20/17 05:25 Laboratory Tests 07/19/17 10:45: Glucometer 317H 07/19/17 16:03: Glucometer 267H 07/19/17 20:55: Glucometer 273H 07/20/17 05:25: White Blood Count 21.9H, Red Blood Count 4.18L, Hemoglobin 13.6, Hematocrit 39L , Mean Corpuscular Volume 92, Mean Corpuscular Hemoglobin 33, Mean Corpuscular Hemoglobin Concent 35, Red Cell Distribution Width 11.9, Platelet Count 240, Mean Platelet Volume 10.8H, Neutrophils (%) (Auto) 91H, Lymphocytes (%) (Auto) 5L, Monocytes (%) (Auto) 3, Eosinophils (%) (Auto) 0, Basophils (%) (Auto) 0, Neutrophils # (Auto) 20.0H, Lymphocytes # (Auto) 1.2, Monocytes # (Auto) 0.7, Eosinophils # (Auto) 0.0, Basophils # (Auto) 0.0, Sodium Level 137, Potassium Level 4.6, Chloride Level 104, Carbon Dioxide Level 18L, Anion Gap 15H, Blood Urea Nitrogen 31H, Creatinine 1.05, Estimat Glomerular Filtration Rate > 60, BUN /Creatinine Ratio 30, Glucose Level 321H, Calcium Level 9.5, Total Bilirubin 0.4 , Aspartate Amino Transf (AST/SGOT) 51H, Alanine Aminotransferase (ALT/SGPT) 69H , Alkaline Phosphatase 67, Total Protein 7.5, Albumin 3.3 07/20/17 05:27: Glucometer 299H Microbiology 07/15/17 Blood Culture - Preliminary, Resulted No growth 07/16/17 Gram Stain - Final, Complete 07/16/17 Sputum Culture - Final, Complete Staphylococcus aureus Normal yusra Assessment/Plan Assessment/Plan Assess & Plan/Chief Complaint pneumonia. Diabetes. Nauseous. Patient still a work in progress. . 07/20/17. Pneumonia due to staph aureus. Diabetes. Coughing is better. Nauseous this is better. Patient feels 80 percent better. Chest x-ray aortic today and nurse to call me at noon Clinical Quality Measures DVT/VTE Risk/Contraindication: Risk Factor Score Per Nursin RFS Level Per Nursing on Admit: 4+=Very High LUCI SPARKS DO Jul 20, 2017 07:36
[2017-07-20 08:00] VITALS: BP 142/48
[2017-07-20] MEDS: RT-BUDESONIDE NEBS 0.5 MG/2ML (PULMICORT) AMP INH SCH (08:51)
[2017-07-20] MEDS ORDERED: CEFDINIR 300 MG (OMNICEF) CAP PO SCH (09:00)
[2017-07-20] MEDS: VITAMIN D3 5,000 UNITS (CHOLECALCIFEROL ) CAPSULE PO SCH (09:07)
[2017-07-20] MEDS: GABAPENTIN 300 MG (NEURONTIN) CAP PO SCH (09:07)
[2017-07-20] MEDS: lisINopril 20 MG (PRINIVIL) TABLET PO SCH (09:07)
[2017-07-20] MEDS: BENZONATATE 100 MG (TESSALON) CAPSULE PO SCH ×2 (09:07→13:15)
[2017-07-20] MEDS: HYDROCODONE/CHLOR 10MG/5 ML (TUSSIONEX SUSP) 5ML UDC PO SCH (09:07)
[2017-07-20] MEDS: ALLOPURINOL 300 MG (ZYLOPRIM) TAB PO SCH (09:07)
[2017-07-20] MEDS: ASCORBIC ACID (VIT C) 500 MG TABLET PO SCH (09:08)
[2017-07-20] MEDS: meTOprolol TARTRATE 25 MG (LOPRESSOR) TABLET PO SCH (09:08)
[2017-07-20] MEDS: ENOXAPARIN 40 MG/0.4 ML (LOVENOX) SYR SC SCH (09:09)
--- NOTE | 2017-07-20 09:18 | Diagnostic Imaging Report ---
INDICATION: Pneumonia. PA and lateral views of the chest are obtained with comparison made to study of 07/18/2017. FINDINGS: Heart size and pulmonary vascularity within normal limits. There is no pneumothorax or consolidation. No significant pleural fluid is seen. IMPRESSION: No evidence of acute abnormality or significant residual infiltrate compared to previous study. Dictated by: Dictated on workstation # [id number]
[2017-07-20] MEDS ORDERED: BENZ-36 PO (13:26)
[2017-07-20] MEDS ORDERED: CEFD300C3 PO (13:28)
[2017-07-20 16:03] VITALS: BP 145/92
[2017-07-20 16:34] VITALS: BP 145/92
--- NOTE | 2017-07-21 08:19 | Discharge Summary ---
Diagnosis/Chief Complaint Date of Admission Jul 15, 2017 at 15:58 Date of Discharge Jul 20, 2017 at 16:34 Discharge Date: Jul 20, 2017 Discharge Time: 1730 Admission Diagnosis Admission Diagnosis pneumonia. Sepsis. Diabetes. Failure to outpatient treatment. Hypertension. Hyperlipidemia. Discharge Diagnosis Pneumonia. Sepsis. Elevated lactic acid. Staph aureus. Right lower lobe pneumonia Diabetes. Hyperlipidemia. Reason Hospital Visit patient came to the office yesterday feeling terrible.Patient coughing much. . Patient failed outpatient treatment. Patient sent to emergency room. Chest x-ray shows right lower lobe pneumonia. patient is elevated white blood cell count put on prednisone. Patient admitted Lactic acid elevated. Patient is cold and cough for one week. Surgeries. Tonsillectomy, appendectomy, gallbladder, acid reflux, GI obstruction carpal tunnel,. Right wrist fracture fusion L4 and L5 and S1,and C4 through C7 and left knee Discharge Summary Discharge Physical Examination Allergies: Coded Allergies: No Known Drug Allergies (Unverified , 01/16/15) Vitals & I&Os Vital Signs Date Time Temp Pulse Resp B/P (MAP) Pulse Ox O2 Delivery O2 Flow Rate FiO2 07/20/17 16:34 98 28 145/92 96 Room Air 07/20/17 16:03 97.5 Hospital Course Patient in hospital improved Labs (last 24 hrs) Laboratory Tests 07/15/17 15:00: White Blood Count 19.9H, Red Blood Count 4.73, Hemoglobin 15.7, Hematocrit 44, Mean Corpuscular Volume 92, Mean Corpuscular Hemoglobin 33, Mean Corpuscular Hemoglobin Concent 36, Red Cell Distribution Width 12.3, Platelet Count 192, Mean Platelet Volume 11.3H, Neutrophils (%) (Auto) 78H, Lymphocytes (%) (Auto) 12, Monocytes (%) (Auto) 9, Eosinophils (%) (Auto) 1, Basophils (%) (Auto) 0, Neutrophils # (Auto) 15.6H, Lymphocytes # (Auto) 2.3, Monocytes # (Auto) 1.8H, Eosinophils # (Auto) 0.1, Basophils # (Auto) 0.1, Neutrophils % (Manual) 80, Lymphocytes % (Manual) 13, Monocytes % (Manual) 4, Eosinophils % (Manual) 1, Basophils % (Manual) 0, Band Neutrophils 2, Blood Morphology Comment NORMAL, Sodium Level 135, Potassium Level 4.3, Chloride Level 98, Carbon Dioxide Level 21, Anion Gap 16H, Blood Urea Nitrogen 25H, Creatinine 1.33H, Estimat Glomerular Filtration Rate 56, BUN/Creatinine Ratio 19, Glucose Level 420*H, Calcium Level 10.0 07/15/17 15:55: Lactic Acid Level 2.08*H 07/15/17 17:12: Glucometer 273H 07/15/17 18:02: Lactic Acid Level 1.38 07/15/17 20:05: Lactic Acid Level 2.46*H 07/15/17 21:51: Glucometer 346H 07/15/17 23:05: Lactic Acid Level 1.89 07/16/17 05:25: White Blood Count 15.2H, Red Blood Count 4.24L, Hemoglobin 14.0, Hematocrit 40, Mean Corpuscular Volume 95, Mean Corpuscular Hemoglobin 33, Mean Corpuscular Hemoglobin Concent 35, Red Cell Distribution Width 12.1, Platelet Count 180, Mean Platelet Volume 11.1H, Neutrophils (%) (Auto) 80H, Lymphocytes (%) (Auto) 9L, Monocytes (%) (Auto) 9, Eosinophils (%) (Auto) 1, Basophils (%) (Auto) 0, Neutrophils # (Auto) 12.2H, Lymphocytes # (Auto) 1.4, Monocytes # (Auto) 1.4H, Eosinophils # (Auto) 0.2, Basophils # (Auto) 0.0, Sodium Level 139, Potassium Level 4.0, Chloride Level 105, Carbon Dioxide Level 21, Anion Gap 13, Blood Urea Nitrogen 16, Creatinine 1.01, Estimat Glomerular Filtration Rate > 60, BUN/ Creatinine Ratio 16, Glucose Level 291H, Calcium Level 8.7 07/16/17 06:10: Glucometer 292H 07/16/17 10:38: Glucometer 265H 07/16/17 16:13: Glucometer 199H 07/16/17 21:04: Glucometer 194H 07/17/17 05:15: White Blood Count 14.9H, Red Blood Count 4.33L, Hemoglobin 14.1, Hematocrit 41, Mean Corpuscular Volume 95, Mean Corpuscular Hemoglobin 33, Mean Corpuscular Hemoglobin Concent 34, Red Cell Distribution Width 12.2, Platelet Count 192, Mean Platelet Volume 11.1H, Sodium Level 141, Potassium Level 3.9, Chloride Level 106, Carbon Dioxide Level 25, Anion Gap 10, Blood Urea Nitrogen 12, Creatinine 1.02, Estimat Glomerular Filtration Rate > 60, BUN/Creatinine Ratio 12, Glucose Level 199H, Calcium Level 9.6 07/17/17 05:53: Glucometer 220H 07/17/17 10:51: Glucometer 211H 07/17/17 15:51: Glucometer 127H 07/17/17 21:56: Glucometer 140H 07/18/17 05:25: Glucometer 152H 07/18/17 06:00: Sodium Level 140, Potassium Level 4.0, Chloride Level 106, Carbon Dioxide Level 22, Anion Gap 12, Blood Urea Nitrogen 15, Creatinine 0.97, Estimat Glomerular Filtration Rate > 60, BUN/Creatinine Ratio 15, Glucose Level 166H, Calcium Level 9.4 07/18/17 06:10: White Blood Count 13.9H, Red Blood Count 4.30L, Hemoglobin 14.1, Hematocrit 40, Mean Corpuscular Volume 93, Mean Corpuscular Hemoglobin 33, Mean Corpuscular Hemoglobin Concent 35, Red Cell Distribution Width 12.1, Platelet Count 210, Mean Platelet Volume 10.0 07/18/17 10:41: Glucometer 198H 07/18/17 15:55: Glucometer 157H 07/18/17 20:47: Glucometer 293H 07/19/17 05:15: White Blood Count 14.6H, Red Blood Count 4.39, Hemoglobin 14.3, Hematocrit 40, Mean Corpuscular Volume 92, Mean Corpuscular Hemoglobin 33, Mean Corpuscular Hemoglobin Concent 36, Red Cell Distribution Width 11.8, Platelet Count 238, Mean Platelet Volume 10.7H, Neutrophils (%) (Auto) 90H, Lymphocytes (%) (Auto) 8L, Monocytes (%) (Auto) 2, Eosinophils (%) (Auto) 0, Basophils (%) (Auto) 0, Neutrophils # (Auto) 13.1H, Lymphocytes # (Auto) 1.2, Monocytes # (Auto) 0.3, Eosinophils # (Auto) 0.0, Basophils # (Auto) 0.0, Sodium Level 137, Potassium Level 4.2, Chloride Level 103, Carbon Dioxide Level 22, Anion Gap 12, Blood Urea Nitrogen 24H, Creatinine 1.06, Estimat Glomerular Filtration Rate > 60, BUN /Creatinine Ratio 23, Glucose Level 311H, Calcium Level 9.6, Total Bilirubin 0.4 , Aspartate Amino Transf (AST/SGOT) 33, Alanine Aminotransferase (ALT/SGPT) 51, Alkaline Phosphatase 73, Total Protein 7.6, Albumin 3.3 07/19/17 05:26: Glucometer 290H 07/19/17 10:45: Glucometer 317H 07/19/17 16:03: Glucometer 267H 07/19/17 20:55: Glucometer 273H 07/20/17 05:25: White Blood Count 21.9H, Red Blood Count 4.18L, Hemoglobin 13.6, Hematocrit 39L , Mean Corpuscular Volume 92, Mean Corpuscular Hemoglobin 33, Mean Corpuscular Hemoglobin Concent 35, Red Cell Distribution Width 11.9, Platelet Count 240, Mean Platelet Volume 10.8H, Neutrophils (%) (Auto) 91H, Lymphocytes (%) (Auto) 5L, Monocytes (%) (Auto) 3, Eosinophils (%) (Auto) 0, Basophils (%) (Auto) 0, Neutrophils # (Auto) 20.0H, Lymphocytes # (Auto) 1.2, Monocytes # (Auto) 0.7, Eosinophils # (Auto) 0.0, Basophils # (Auto) 0.0, Sodium Level 137, Potassium Level 4.6, Chloride Level 104, Carbon Dioxide Level 18L, Anion Gap 15H, Blood Urea Nitrogen 31H, Creatinine 1.05, Estimat Glomerular Filtration Rate > 60, BUN /Creatinine Ratio 30, Glucose Level 321H, Calcium Level 9.5, Total Bilirubin 0.4 , Aspartate Amino Transf (AST/SGOT) 51H, Alanine Aminotransferase (ALT/SGPT) 69H , Alkaline Phosphatase 67, Total Protein 7.5, Albumin 3.3 07/20/17 05:27: Glucometer 299H 07/20/17 10:36: Glucometer 314H 07/20/17 16:06: Glucometer 283H Microbiology 07/15/17 Blood Culture - Preliminary, Resulted No growth 07/16/17 Gram Stain - Final, Complete 07/16/17 Sputum Culture - Final, Complete Staphylococcus aureus Normal yusra Laboratory Tests 07/15/17 15:00 07/16/17 05:25 07/17/17 05:15 07/18/17 06:00 07/18/17 06:10 07/19/17 05:15 07/20/17 05:25 Pending Labs Microbiology Date/Time Source Procedure Growth Status 07/15/17 18:02 Peripheral Rt Ac Blood Culture - Preliminary No growth Resulted 07/15/17 17:51 Peripheral Rt Ac Blood Culture - Preliminary No growth Resulted 07/15/17 16:35 Peripheral Rt Ac Blood Culture - Preliminary No growth Resulted 07/15/17 15:55 Peripheral Lt Hand Blood Culture - Preliminary No growth Resulted 07/16/17 20:30 Sputum Expectorated Gram Stain - Final Complete 07/16/17 20:30 Sputum Culture - Final Staphylococcus aureus Normal yusra Complete Laboratory Tests 07/15/17 15:00: White Blood Count 19.9, Red Blood Count 4.73, Hemoglobin 15.7, Hematocrit 44, Mean Corpuscular Volume 92, Mean Corpuscular Hemoglobin 33, Mean Corpuscular Hemoglobin Concent 36, Red Cell Distribution Width 12.3, Platelet Count 192, Mean Platelet Volume 11.3, Neutrophils (%) (Auto) 78, Lymphocytes (%) (Auto) 12 , Monocytes (%) (Auto) 9, Eosinophils (%) (Auto) 1, Basophils (%) (Auto) 0, Neutrophils # (Auto) 15.6, Lymphocytes # (Auto) 2.3, Monocytes # (Auto) 1.8, Eosinophils # (Auto) 0.1, Basophils # (Auto) 0.1, Neutrophils % (Manual) 80, Lymphocytes % (Manual) 13, Monocytes % (Manual) 4, Eosinophils % (Manual) 1, Basophils % (Manual) 0, Band Neutrophils 2, Blood Morphology Comment NORMAL, Sodium Level 135, Potassium Level 4.3, Chloride Level 98, Carbon Dioxide Level 21, Anion Gap 16, Blood Urea Nitrogen 25, Creatinine 1.33, Estimat Glomerular Filtration Rate 56, BUN/Creatinine Ratio 19, Glucose Level 420, Calcium Level 10.0 07/15/17 15:55: Lactic Acid Level 2.08 07/15/17 17:12: Glucometer 273 07/15/17 18:02: Lactic Acid Level 1.38 07/15/17 20:05: Lactic Acid Level 2.46 07/15/17 21:51: Glucometer 346 07/15/17 23:05: Lactic Acid Level 1.89 07/16/17 05:25: White Blood Count 15.2, Red Blood Count 4.24, Hemoglobin 14.0, Hematocrit 40, Mean Corpuscular Volume 95, Mean Corpuscular Hemoglobin 33, Mean Corpuscular Hemoglobin Concent 35, Red Cell Distribution Width 12.1, Platelet Count 180, Mean Platelet Volume 11.1, Neutrophils (%) (Auto) 80, Lymphocytes (%) (Auto) 9, Monocytes (%) (Auto) 9, Eosinophils (%) (Auto) 1, Basophils (%) (Auto) 0, Neutrophils # (Auto) 12.2, Lymphocytes # (Auto) 1.4, Monocytes # (Auto) 1.4, Eosinophils # (Auto) 0.2, Basophils # (Auto) 0.0, Sodium Level 139, Potassium Level 4.0, Chloride Level 105, Carbon Dioxide Level 21, Anion Gap 13, Blood Urea Nitrogen 16, Creatinine 1.01, Estimat Glomerular Filtration Rate > 60, BUN/ Creatinine Ratio 16, Glucose Level 291, Calcium Level 8.7 07/16/17 06:10: Glucometer 292 07/16/17 10:38: Glucometer 265 07/16/17 16:13: Glucometer 199 07/16/17 21:04: Glucometer 194 07/17/17 05:15: White Blood Count 14.9, Red Blood Count 4.33, Hemoglobin 14.1, Hematocrit 41, Mean Corpuscular Volume 95, Mean Corpuscular Hemoglobin 33, Mean Corpuscular Hemoglobin Concent 34, Red Cell Distribution Width 12.2, Platelet Count 192, Mean Platelet Volume 11.1, Sodium Level 141, Potassium Level 3.9, Chloride Level 106, Carbon Dioxide Level 25, Anion Gap 10, Blood Urea Nitrogen 12, Creatinine 1.02, Estimat Glomerular Filtration Rate > 60, BUN/Creatinine Ratio 12, Glucose Level 199, Calcium Level 9.6 07/17/17 05:53: Glucometer 220 07/17/17 10:51: Glucometer 211 07/17/17 15:51: Glucometer 127 07/17/17 21:56: Glucometer 140 07/18/17 05:25: Glucometer 152 07/18/17 06:00: Sodium Level 140, Potassium Level 4.0, Chloride Level 106, Carbon Dioxide Level 22, Anion Gap 12, Blood Urea Nitrogen 15, Creatinine 0.97, Estimat Glomerular Filtration Rate > 60, BUN/Creatinine Ratio 15, Glucose Level 166, Calcium Level 9.4 07/18/17 06:10: White Blood Count 13.9, Red Blood Count 4.30, Hemoglobin 14.1, Hematocrit 40, Mean Corpuscular Volume 93, Mean Corpuscular Hemoglobin 33, Mean Corpuscular Hemoglobin Concent 35, Red Cell Distribution Width 12.1, Platelet Count 210, Mean Platelet Volume 10.0 07/18/17 10:41: Glucometer 198 07/18/17 15:55: Glucometer 157 07/18/17 20:47: Glucometer 293 07/19/17 05:15: White Blood Count 14.6, Red Blood Count 4.39, Hemoglobin 14.3, Hematocrit 40, Mean Corpuscular Volume 92, Mean Corpuscular Hemoglobin 33, Mean Corpuscular Hemoglobin Concent 36, Red Cell Distribution Width 11.8, Platelet Count 238, Mean Platelet Volume 10.7, Neutrophils (%) (Auto) 90, Lymphocytes (%) (Auto) 8, Monocytes (%) (Auto) 2, Eosinophils (%) (Auto) 0, Basophils (%) (Auto) 0, Neutrophils # (Auto) 13.1, Lymphocytes # (Auto) 1.2, Monocytes # (Auto) 0.3, Eosinophils # (Auto) 0.0, Basophils # (Auto) 0.0, Sodium Level 137, Potassium Level 4.2, Chloride Level 103, Carbon Dioxide Level 22, Anion Gap 12, Blood Urea Nitrogen 24, Creatinine 1.06, Estimat Glomerular Filtration Rate > 60, BUN/ Creatinine Ratio 23, Glucose Level 311, Calcium Level 9.6, Total Bilirubin 0.4, Aspartate Amino Transf (AST/SGOT) 33, Alanine Aminotransferase (ALT/SGPT) 51, Alkaline Phosphatase 73, Total Protein 7.6, Albumin 3.3 07/19/17 05:26: Glucometer 290 07/19/17 10:45: Glucometer 317 07/19/17 16:03: Glucometer 267 07/19/17 20:55: Glucometer 273 07/20/17 05:25: White Blood Count 21.9, Red Blood Count 4.18, Hemoglobin 13.6, Hematocrit 39, Mean Corpuscular Volume 92, Mean Corpuscular Hemoglobin 33, Mean Corpuscular Hemoglobin Concent 35, Red Cell Distribution Width 11.9, Platelet Count 240, Mean Platelet Volume 10.8, Neutrophils (%) (Auto) 91, Lymphocytes (%) (Auto) 5, Monocytes (%) (Auto) 3, Eosinophils (%) (Auto) 0, Basophils (%) (Auto) 0, Neutrophils # (Auto) 20.0, Lymphocytes # (Auto) 1.2, Monocytes # (Auto) 0.7, Eosinophils # (Auto) 0.0, Basophils # (Auto) 0.0, Sodium Level 137, Potassium Level 4.6, Chloride Level 104, Carbon Dioxide Level 18, Anion Gap 15, Blood Urea Nitrogen 31, Creatinine 1.05, Estimat Glomerular Filtration Rate > 60, BUN/ Creatinine Ratio 30, Glucose Level 321, Calcium Level 9.5, Total Bilirubin 0.4, Aspartate Amino Transf (AST/SGOT) 51, Alanine Aminotransferase (ALT/SGPT) 69, Alkaline Phosphatase 67, Total Protein 7.5, Albumin 3.3 07/20/17 05:27: Glucometer 299 07/20/17 10:36: Glucometer 314 07/20/17 16:06: Glucometer 283 Discharge Home Medications: Active Scripts Active Cefdinir 300 Mg Capsule 300 Mg PO BID Benzonatate 100 Mg Capsule 200 Mg PO TID PRN Reported Allopurinol 300 Mg Tablet 300 Mg PO DAILY Metoprolol Tartrate 25 Mg Tablet 25 Mg PO BID Gabapentin 300 Mg Capsule 1,500 Mg PO HS TAKES 5 (300MG) CAPSULES Multi-Vitamin Gummies (Folic Acid/Multivit-Min/Lutein) 1 Each Tab.chew 2 Tab.chew PO DAILY Vitamin C (Ascorbate Calcium) 500 Mg Tablet 500 Mg PO BID Co Q-10 (Ubidecarenone) 200 Mg Capsule 200 Mg PO DAILY TAKEA ALONG WITH 100MG CAPSULE FOR A TOTAL DAILY DOSE OF 300MG Promethazine Tablet (Promethazine HCl) 25 Mg Tablet 25 Mg PO Q6H PRN Vitamin D3 (Cholecalciferol (Vitamin D3)) 5,000 Unit Capsule 5,000 Unit PO DAILY Fish Oil 1,400 mg Softgel ([place]-3/Dha/Epa/Fish Oil) 1 Each Capsule.dr 2,800 Tab PO BID TAKES 2 (1400MG) CAPSULES Livalo (Pitavastatin Calcium) 4 Mg Tablet 4 Mg PO DAILY Totoribio Solostar (Insulin Glargine,Hum.rec.anlog) 300 Unit/1 Ml Insuln.pen 60 Unit SQ 1800 WITH EVENING MEAL Humalog Kwikpen (Insulin Lispro) 100 Unit/1 Ml Insuln.pen 28 Unit SQ AC Takes one additional unit for every 50 Mg/DL points above 150 Mg/DL Baclofen 10 Mg Tablet 10 Mg PO TID PRN Montelukast Sodium 10 Mg Tablet 10 Mg PO HS Lisinopril 20 Mg Tablet 20 Mg PO DAILY Gabapentin 300 Mg Capsule 300 Mg PO DAILY Co Q-10 (Ubidecarenone) 100 Mg Capsule 100 Mg PO DAILY TAKES ALONG WITH 200MG CAPSULE FOR A TOTAL DAILY DOSE OF 300MG Instructions to patient/family Please see electronic discharge instructions given to patient. Clinical Quality Measures DVT/VTE Risk/Contraindication: Risk Factor Score Per Nursin RFS Level Per Nursing on Admit: 4+=Very High LUCI SPARKS DO Jul 21, 2017 08:19
== END 2017-07-20 16:34 | disposition home or self-care (01) | DRG 871 ==
LOC: EDUNIT# 14:29 → ER 14:31 → 4TH 15:58
PROVIDERS: ADMIT Family Medicine; ATTEND Family Medicine
DX: A41.9 Sepsis, unspecified organism (principal); J15.211 Pneumonia due to Methicillin susceptible Staphylococcus aureus; J98.01 Acute bronchospasm; E11.9 Type 2 diabetes mellitus without complications; T38.0X5A Adverse effect of glucocorticoids and synthetic analogues, initial encounter; I10 Essential (primary) hypertension; E78.00 Pure hypercholesterolemia, unspecified; G47.30 Sleep apnea, unspecified; M06.9 Rheumatoid arthritis, unspecified; M19.91 Primary osteoarthritis, unspecified site; M79.7 Fibromyalgia; M54.9 Dorsalgia, unspecified; M10.9 Gout, unspecified; F41.9 Anxiety disorder, unspecified; F32.9 Major depressive disorder, single episode, unspecified; G43.909 Migraine, unspecified, not intractable, without status migrainosus; Z79.4 Long term (current) use of insulin; Z79.52 Long term (current) use of systemic steroids; Z87.442 Personal history of urinary calculi; Z86.010 Personal history of colon polyps
CPT/HCPCS: 36415; 71046; 80048; 80053; 82962; 83605; 85007; 85025; 85027; 87040; 87070; 87077; 87186; 87205; 94640; 94664; 94760; 96361; 96365; 96375

== ENCOUNTER → 2017-07-28 | Outpatient (CLI) | payer MEDICARE, OTHER ==
[~2017-07-28] MED LIST changes: +ALLO300T2 PO; +BENZ-36 PO; +CEFD300C3 PO; +CHOL5000 PO; +INSU100I23 SQ; +INSU300I SQ; +IOHEXOL 350 MG/ML 100 ML (OMNIPAQUE 350) VIAL IV ONE; +LISI-552 PO; +METO-333 PO; +MONT10TA24 PO; +NS 250 ML (IVPB) BAG IV ONE; +OMEG-9 PO; +PITA4TAB2 PO; +PROM25TA14 PO; +UBID200C16 PO
--- NOTE | 2017-07-28 08:13 | Diagnostic Imaging Report ---
PROCEDURE: CT chest with contrast only. TECHNIQUE: Multiple contiguous axial images were obtained through the chest after administration of intravenous contrast. INDICATION: Staphylococcal pneumonia. There is a rounded focus of consolidating airspace disease in the medial aspect of the left lower lobe just posterior and inferior to the hilum. This measures approximately 4.0 x 3.7 cm and contains internal air bronchograms. The remainder of the lungs is clear without additional infiltrate. There is no significant pleural or pericardial fluid. No pathologically enlarged adenopathy is seen in the thorax. Note is made of coronary artery calcification. Upper abdominal sections reveal mild hepatic steatosis without other acute abnormality. Incidental note is made of an approximately 1.7 cm low-density nodule in the right lobe of thyroid gland which has increased from 1.[address] study of 12/04/2014. IMPRESSION: Focal consolidation containing air bronchograms in the medial left lower lobe. Clinical correlation would be useful. This could be amenable to evaluation via bronchoscopy. Otherwise, there is mild hepatic steatosis and coronary artery disease without other acute abnormality identified. There's been mild interval increase in size of low-density nodule in right lobe of thyroid gland. If indicated, ultrasound followup would be useful. Dictated by: Dictated on workstation # [id number]
== END ==
LOC: RAD 07:25
PROVIDERS: ATTEND Internal Medicine
DX: J15.20 Pneumonia due to staphylococcus, unspecified (principal); K76.0 Fatty (change of) liver, not elsewhere classified; I25.10 Atherosclerotic heart disease of native coronary artery without angina pectoris; E04.1 Nontoxic single thyroid nodule
CPT/HCPCS: 71260

== ENCOUNTER → 2017-08-05 | Outpatient (CLI) | payer MEDICARE, OTHER ==
[~2017-08-05] MED LIST changes: -IOHEXOL 350 MG/ML 100 ML (OMNIPAQUE 350) VIAL IV ONE; -NS 250 ML (IVPB) BAG IV ONE; +RT-ALBUTEROL SULF 2.5 MG/3 ML PRE-MIX VIAL INH ONE
== END ==
LOC: RT 15:26
PROVIDERS: ATTEND Internal Medicine
DX: R05 Cough (principal)
CPT/HCPCS: 94060; 94726; 94729

== ENCOUNTER → 2017-08-05 | Outpatient (CLI) | payer MEDICARE, OTHER ==
[~2017-08-05] MED LIST changes: -RT-ALBUTEROL SULF 2.5 MG/3 ML PRE-MIX VIAL INH ONE
--- NOTE | 2017-08-05 10:36 | Diagnostic Imaging Report ---
CLINICAL INDICATION: Patient with right thyroid nodule seen on CT. COMPARISONS: Chest CT scan with contrast dated 07/28/2017. FINDINGS: THYROID NODULES: There is a 2.4 cm x 1.7 cm x 1.9 cm solid and cystic heterogeneous nodule within the mid to inferior aspect of the right thyroid gland. There is a 5 mm area of calcification in the upper portion of the left thyroid gland with posterior shadowing. There is a 1.6 cm x 1.1 cm x 1.4 cm slightly heterogeneous isoechoic nodule in the mid to upper left thyroid gland region. There is no significant Doppler flow within this nodule. THYROID GLAND: Besides the thyroid nodules, the thyroid gland is slightly increased in size with no other significant abnormality. The right lobe measures 6.6 cm x 2.4 cm x 2.5 cm and the left lobe measures 5.9 cm x 2.2 cm x 2.3 cm in their three dimensions. ISTHMUS: The isthmus is unremarkable and measures 5 mm in thickness. Impression: 1: There is a 2.4 cm solid and cystic nodule in the mid to inferior aspect of the right thyroid gland. Fine-needle aspiration would help better evaluate. 2: There is a 1.6 cm slightly heterogeneous isoechoic nodule in the mid to upper aspect of left thyroid gland. 3: There is a 5 mm calcification involving the upper pole left thyroid gland. 4: The thyroid gland is slightly increased in size, but otherwise unremarkable. Dictated by: Dictated on workstation # [id number]
== END ==
LOC: RAD 08:45
PROVIDERS: ATTEND Internal Medicine
DX: E04.2 Nontoxic multinodular goiter (principal)
CPT/HCPCS: 76536

== ENCOUNTER 2017-08-17 14:00 | Outpatient (CLI) | payer MEDICARE, OTHER ==
[~2017-08-17] VITALS: Ht 180.3 cm; Wt 115.2 kg
[2017-08-17] MEDS ORDERED: RT-ALBUINH IH (14:27)
[2017-08-17] MEDS ORDERED: FEXO-46 PO (14:27)
[2017-08-17] MEDS ORDERED: CETI10TA17 PO (14:27)
== END 2017-08-17 14:57 ==
LOC: PREOP 14:00
PROVIDERS: ATTEND Internal Medicine Critical Care Medicine
DX: Z01.811 Encounter for preprocedural respiratory examination (principal); J18.9 Pneumonia, unspecified organism; R06.00 Dyspnea, unspecified; R91.8 Other nonspecific abnormal finding of lung field

== ENCOUNTER → 2017-08-19 | Day surgery (SDC) | payer MEDICARE, OTHER ==
[~2017-08-19] VITALS: Ht 180.3 cm; Wt 115.2 kg
[~2017-08-19] MED LIST changes: +FEXO-46 PO; +LIDOCAINE 4% INJ (XYLOCAINE) 5ML AMP INJ ONE; +LIDOCAINE JELLY 2% (XYLOCAINE) 30 ML TUBE TOP ONE; +LIDOCAINE PF 1% 2 ML VIAL (OR ONLY) IJ ONE; +MIDAZOLAM 2 MG/2 ML (VERSED) VIAL ONE; +NS IV 500 ML 500 ML IV PRN; +RT-ALBUINH IH; +fentaNYL INJECTION 100 MCG/2 ML AMP ONE
--- OUTSIDE RECORDS SUMMARY | 2017-08-19 07:00 | XMS REPORT | Clinical Summary ---
Author Author [facility] Organization [facility] Address Unknown Phone Unavailable Care Team Providers Care Turbine Engineer Name Role Phone PCP Unavailable Source Comments Some departments are not documenting in the electronic medical record. If you do not see the information that you expected, contact Release of Information in the Health Information Management department at [phone] for further assistance in locating additional records.[facility] Allergies Not on File Current Medications Not on file Active Problems Not on file Social History Tobacco Use Types Packs/Day Years Used Date Never Assessed Sex Assigned at Date Recorded Not on file Last Filed Vital Signs Not on file Plan of Treatment Health Maintenance Due Date Last Done Comments HEPATITIS C SCREENING 1965 PHYSICAL (COMPREHENSIVE) 12/07/1971 EXAM PERTUSSIS VACCINE 12/07/1975 HIV SCREENING 12/07/1979 TETANUS VACCINE 1981 COLORECTAL CANCER 2014 SCREENING INFLUENZA VACCINE 02/22/2018 Results Not on filefrom Last 3 Months
[2017-08-19 07:08] VITALS: BP 128/104
--- NOTE | 2017-08-19 07:08 | Progress Note-Pre Operative ---
Pre-Operative Progress Note H&P Reviewed The H&P was reviewed, patient examined and no changes noted. Time Seen by Provider: 07:08 Date H&P Reviewed: Aug 19, 2017 Time H&P Reviewed: 07:08 Pre-Operative Diagnosis: atelectasis/pneumonia BIANCA CARR DO Aug 19, 2017 07:08
--- NOTE | 2017-08-19 07:09 | Pre-Op Note & Conscious Sedat ---
Pre-Operative Progress Note H&P Reviewed The H&P was reviewed, patient examined and no changes noted. Date H&P Reviewed: Aug 19, 2017 Time H&P Reviewed: 07:08 Conscious Sedation Pre-Proced Time Reviewed: 07:08 ASA Class: 3 Airway Mallampati Classification: ([place] appropriate class) I. II. III, IV Lungs Heart ASA score ASA 1: a normal healthy patient ASA 2: a patient with a mild systemic disease (mid diabetes, controlled hypertension, obesity ASA 3: a patient with a severe systemic disease that limits activity (angina , COPD, prior Myocardial infarction) ASA 4: a patient with an incapacitating disease that is a constant threat to life (CHF, renal failure) ASA 5: a moribund patient not expected to survive 24 hrs. (ruptured aneurysm) ASA 6: a declared brain patient whose organs are being harvested. For emergent operations, add the letter E after the classification Grade 3 Sedation Plan: Analgesia, Amnesia, Plan communicated to team members, Discussed options with patient/fam, Discussed risks with patient/fam Note The patient is an appropriate candidate to undergo the planned procedure, sedation, and anesthesia. The patient immediately re-assessed prior to indication. BIANCA CARR DO Aug 19, 2017 07:09
[2017-08-19] MEDS: MIDAZOLAM 2 MG/2 ML (VERSED) VIAL IVP PRN ×4 (07:35→07:50)
[2017-08-19] MEDS: fentaNYL INJECTION 100 MCG/2 ML AMP IVP PRN ×4 (07:36→07:54)
--- NOTE | 2017-08-19 08:18 | Pulmonary Procedures ---
Pulmonary Procedures Date of Procedure Date of Service: Aug 19, 2017 Bronch Bronchoscopy with bronchoalveolar lavage (BAL), transbronchial washes and, brushes. Preop DX PNA Postop DX: same Complications: none After informed consent obtained and formal time out pt was sedated using Fentanyl and Versed. Bronchoscope was advanced through the right nare and vocal cords. 1% lidocaine was used to anesthetize vocal cords, epiglottis, donis, and left/right main stem bronchus. An anatomical tour was undertaken down to the segmental bronchi bilaterally. No endobronchial lesions noted. From the LLL a bronchoalveolar lavage (BAL), transbronchial washes and, brushes were obtained. Pt tolerated procedure well. No complications noted. Stat CXR is pending. BIANCA CARR DO Aug 19, 2017 08:18
[2017-08-19 08:20] VITALS: BP 140/92
[2017-08-19 08:45] VITALS: BP 125/92
--- NOTE | 2017-08-19 08:47 | Diagnostic Imaging Report ---
Indication: Status post bronchoscopy. Time of examination: 8:16 AM Comparison: Correlation is made to prior study from 07/20/2017. Findings: The heart size is normal. The lungs are clear. No pneumothorax is identified post bronchoscopy. No effusion is seen. Postop changes in the cervical spine are noted. Impression: No evidence of pneumothorax, status post bronchoscopy. Dictated by: Dictated on workstation # [id number]
[2017-08-19 08:58] VITALS: BP 125/92
== END | disposition home or self-care (01) ==
LOC: ENDO 06:51
PROVIDERS: ATTEND Internal Medicine Critical Care Medicine
DX: J18.9 Pneumonia, unspecified organism (principal); R91.8 Other nonspecific abnormal finding of lung field; K21.9 Gastro-esophageal reflux disease without esophagitis; G47.33 Obstructive sleep apnea (adult) (pediatric); G25.61 Drug induced tics; R06.00 Dyspnea, unspecified; Z79.899 Other long term (current) drug therapy
CPT/HCPCS: 71045; 87070; 87077; 87101; 87116; 87186; 87205; 94640

== ENCOUNTER → 2017-08-20 | Outpatient (CLI) | payer MEDICARE, OTHER ==
[~2017-08-20] MED LIST changes: -LIDOCAINE 4% INJ (XYLOCAINE) 5ML AMP INJ ONE; -LIDOCAINE JELLY 2% (XYLOCAINE) 30 ML TUBE TOP ONE; -LIDOCAINE PF 1% 2 ML VIAL (OR ONLY) IJ ONE; -MIDAZOLAM 2 MG/2 ML (VERSED) VIAL ONE; -NS IV 500 ML 500 ML IV PRN; -fentaNYL INJECTION 100 MCG/2 ML AMP ONE
[2017-08-20 15:50] LABS: BASOPHILS # (AUTO) 0.1 10^3/uL (0.0-0.1); BASOPHILS % (AUTO) 1 % (0-10); EOSINOPHILS # (AUTO) 0.3 10^3/uL (0.0-0.3); EOSINOPHILS % (AUTO) 2 % (0-10); HEMATOCRIT 43 % (40-54); HEMOGLOBIN 15.5 G/DL (13.3-17.7); LYMPHOCYTES # (AUTO) 2.2 X 10^3 (1.0-4.0); LYMPHOCYTES % (AUTO) 17 % (12-44); MEAN CORPUSCULAR HEMOGLOBIN 33 PG (25-34); MEAN CORPUSCULAR HGB CONC 36 G/DL (32-36); MEAN CORPUSCULAR VOLUME 91 FL (80-99); MEAN PLATELET VOLUME 11.2 FL (7.4-10.4); MONOCYTES # (AUTO) 1.3 X 10^3 (0.0-1.0); MONOCYTES % (AUTO) 10 % (0-12); NEUTROPHILS # (AUTO) 8.9 X 10^3 (1.8-7.8); NEUTROPHILS % (AUTO) 70 % (42-75); PLATELET COUNT 163 10^3/uL (130-400); RED BLOOD COUNT 4.77 10^6/uL (4.35-5.85); RED CELL DISTRIBUTION WIDTH 13.5 % (10.0-14.5); WHITE BLOOD COUNT 12.8 10^3/uL (4.3-11.0)
--- NOTE | 2017-08-20 16:37 | Diagnostic Imaging Report ---
INDICATION: Dyspnea. TECHNIQUE: PA and lateral views of the chest were obtained. COMPARISON: 08/19/2017. FINDINGS: There is suboptimal inspiration with mild basilar atelectasis. No pneumothorax or consolidation is identified. There is no significant pleural fluid. IMPRESSION: Suboptimal inspiration with mild basilar atelectasis; otherwise, no acute abnormality is seen. Dictated by: Dictated on workstation # [id number]
== END ==
LOC: RAD 15:37
PROVIDERS: ATTEND Nurse Practitioner Family
DX: J98.11 Atelectasis (principal); K21.9 Gastro-esophageal reflux disease without esophagitis; R91.8 Other nonspecific abnormal finding of lung field; J18.9 Pneumonia, unspecified organism; G25.81 Restless legs syndrome
CPT/HCPCS: 36415; 71046; 85025

== ENCOUNTER 2017-09-22 08:51 | Emergency (ER) | payer MEDICARE, OTHER ==
[~2017-09-22] VITALS: Ht 180.3 cm; Wt 113.4 kg
[2017-09-22] MEDS ORDERED: KETOROLAC 30 MG/ML VIAL ONE (09:04)
[2017-09-22] MEDS ORDERED: NS IV 1000 ML 1,000 ML IV ONE (09:08)
[2017-09-22 09:15] LABS: BASOPHILS # (AUTO) 0.1 10^3/uL (0.0-0.1); BASOPHILS % (AUTO) 1 % (0-10); EOSINOPHILS # (AUTO) 0.2 10^3/uL (0.0-0.3); EOSINOPHILS % (AUTO) 3 % (0-10); HEMATOCRIT 47 % (40-54); HEMOGLOBIN 16.7 G/DL (13.3-17.7); LYMPHOCYTES % (AUTO) 22 % (12-44); MEAN CORPUSCULAR HEMOGLOBIN 33 PG (25-34); MEAN CORPUSCULAR HGB CONC 35 G/DL (32-36); MEAN CORPUSCULAR VOLUME 93 FL (80-99); MEAN PLATELET VOLUME 11.1 FL (7.4-10.4); MONOCYTES # (AUTO) 0.8 X 10^3 (0.0-1.0); MONOCYTES % (AUTO) 9 % (0-12); NEUTROPHILS % (AUTO) 66 % (42-75); PLATELET COUNT 186 10^3/uL (130-400); RED BLOOD COUNT 5.11 10^6/uL (4.35-5.85); RED CELL DISTRIBUTION WIDTH 13.3 % (10.0-14.5); WHITE BLOOD COUNT 9.1 10^3/uL (4.3-11.0)
[2017-09-22] MEDS ORDERED: KETOROLAC 30 MG/ML VIAL IVP ONE (09:15)
[2017-09-22 09:18] LABS: BILIRUBIN,URINE NEGATIVE (NEGATIVE); CLARITY,URINE CLEAR; COLOR,URINE YELLOW; GLUCOSE, URINE (UA) 4+ (NEGATIVE); KETONES,URINE NEGATIVE (NEGATIVE); LEUKOCYTE ESTERASE ,URINE NEGATIVE (NEGATIVE); NITRITE,URINE NEGATIVE (NEGATIVE); PH,URINE 5 (5-9); PROTEIN,URINE 3+ (NEGATIVE); UROBILINOGEN,URINE NORMAL (NORMAL)
[2017-09-22 09:27] LABS: BACTERIA,URINE NEGATIVE /HPF; SQUAMOUS EPITHELIAL CELL,UR RARE /HPF; WBC,URINE 0-2 /HPF
[2017-09-22 09:32] LABS: ALANINE AMINOTRANSFERASE 44 U/L (0-55); ALBUMIN 4.3 GM/DL (3.2-4.5); ALKALINE PHOSPHATASE 62 U/L (40-136); BILIRUBIN,TOTAL 0.8 MG/DL (0.1-1.0); BUN/CREATININE RATIO 22; CALCIUM 9.6 MG/DL (8.5-10.1); CARBON DIOXIDE 21 MMOL/L (21-32); CHLORIDE 107 MMOL/L (98-107); GFR ESTIMATED > 60; GLUCOSE 217 MG/DL (70-105); POTASSIUM 4.4 MMOL/L (3.6-5.0); SODIUM 139 MMOL/L (135-145); TOTAL PROTEIN 7.2 GM/DL (6.4-8.2)
[2017-09-22] MEDS ORDERED: fentaNYL INJECTION 100 MCG/2 ML AMP IVP ONE (09:45)
--- NOTE | 2017-09-22 09:45 | ED Abdominal Pain ---
General Chief Complaint: Back Problems Stated Complaint: PAIN IN [facility] BACK AND SIDE Nursing Triage Note: PT HAS R FLANK PAIN, STATES STARTED YESTERDAY. PT RATES PAIN 10/10. HAS HX KIDNEY STONE Sepsis Screen: No Definite Risk Source of Information: Patient Exam Limitations: No Limitations History of Present Illness Date Seen by Provider: September 22, 2017 Time Seen by Provider: 09:08 Initial Comments This 51-year-old gentleman presents to the emergency room with right lower back and flank pain that has now moved to the right lower quadrant this morning. Patient does take hydrocodone for chronic pain but states the nature of this pain is different. He denies any urinary symptoms. He does have a history of ureteral stone and states this feels similar. He has nausea without vomiting. Allergies and Home Medications Allergies Coded Allergies: No Known Drug Allergies (Unverified , 08/17/17) Home Medications Albuterol Sulfate 1 Puff Puff, 2 PUFF IH Q4H, (Reported) 1 PUFF = 90 MCG Allopurinol 300 Mg Tablet, 300 MG PO DAILY, (Reported) Ascorbate Calcium 500 Mg Tablet, 500 MG PO BID, (Reported) Baclofen 10 Mg Tablet, 10 MG PO TID PRN for SPASMS, (Reported) Cetirizine HCl 10 Mg Tablet, 10 MG PO DAILY, (Reported) Cholecalciferol (Vitamin D3) 5,000 Unit Capsule, 5,000 UNIT PO DAILY, (Reported) Fexofenadine HCl 180 Mg Tablet, 180 MG PO DAILY, (Reported) Folic Acid/Multivit-Min/Lutein 1 Each Tab.chew, 2 TAB.CHEW PO DAILY, (Reported) Gabapentin 300 Mg Capsule, 300 MG PO DAILY, (Reported) Gabapentin 300 Mg Capsule, 1,500 MG PO HS, (Reported) TAKES 5 (300MG) CAPSULES Insulin Glargine,Hum.rec.anlog 300 Unit/1 Ml Insuln.pen, 66 UNIT SQ 1800, ( Reported) WITH EVENING MEAL Insulin Lispro 100 Unit/1 Ml Insuln.pen, 30 UNIT SQ AC, (Reported) Takes one additional unit for every 50 Mg/DL points above 150 Mg/DL Lisinopril 20 Mg Tablet, 20 MG PO DAILY, (Reported) Metoprolol Tartrate 25 Mg Tablet, 25 MG PO BID, (Reported) Montelukast Sodium 10 Mg Tablet, 10 MG PO HS, (Reported) [place]-3/Dha/Epa/Fish Oil 1 Each Capsule.dr, 2,800 TAB PO BID, (Reported) TAKES 2 (1400MG) CAPSULES Pitavastatin Calcium 4 Mg Tablet, 4 MG PO DAILY, (Reported) Promethazine HCl 25 Mg Tablet, 25 MG PO Q6H PRN for NAUSEA/VOMITING-2ND LINE, ( Reported) Ubidecarenone 100 Mg Capsule, 100 MG PO DAILY, (Reported) TAKES ALONG WITH 200MG CAPSULE FOR A TOTAL DAILY DOSE OF 300MG Ubidecarenone 200 Mg Capsule, 200 MG PO DAILY, (Reported) TAKEA ALONG WITH 100MG CAPSULE FOR A TOTAL DAILY DOSE OF 300MG Patient Home Medication List Home Medication List Reviewed: Yes Review of Systems Constitutional: diaphoresis EENTM: No Symptoms Reported Respiratory: No Symptoms Reported Cardiovascular: No Symptoms Reported Gastrointestinal: See HPI Genitourinary: See HPI Musculoskeletal: no symptoms reported Skin: no symptoms reported Psychiatric/Neurological: No Symptoms Reported Endocrine: No Symptoms Reported Hematologic/Lymphatic: No Symptoms Reported Past Klyuccy-Sjynvi-Tudpne Hx Patient Social History Alcohol Use: Rarely Uses Number of Drinks Today: BB Alcohol Beverage of Choice: Beer, [place] Recreational Drug Use: No Smoking Status: Former Smoker Recent Foreign Travel: No Contact w/Someone Who Travel: No Recent Infectious Disease Expo: No Recent Hopitalizations: Yes (PNEUMONIA) Physical Abuse: No Sexual Abuse: No Immunizations Up To Date Tetanus Booster (TDap): Unknown PED Vaccines UTD: Yes Date of Pneumonia Vaccine: Feb 24, 2017 Date of Influenza Vaccine: Feb 24, 2017 Seasonal Allergies Seasonal Allergies: Yes Past Medical History Surgeries: Yes (LITHOTRIPSY, BACK X4, L KNEE ACL REPAIR, WISDOM TEETH,) Abdominal (Gray fundoplication), Adenoidectomy, Appendectomy, Gallbladder, Orthopedic, Tonsillectomy Respiratory: Yes Pneumonia, Sleep Apnea Currently Using CPAP: No Currently Using BIPAP: No Cardiac: Yes (STRESS TEST COUPLE YEARS AGO AT [facility]) High Cholesterol, Hypertension Neurological: Yes Headaches /Migraines Reproductive Disorders: No Sexually Transmitted Disease: No HIV/AIDS: No Genitourinary: Yes Kidney Stones, Renal Failure Gastrointestinal: Yes (ABDOMINAL ADHESIONS, FREQUENT SMALL BOWEL OBSTRUCTIONS) Abdominal Hernia, Obstructive Bowel, Polyps Musculoskeletal: Yes Degenerate Disk Disease, Arthritis, Fibromyalgia, Rheumatoid Arthritis, Back Injury, Chronic Back Pain, Fractures, Gout Endocrine: Yes Diabetes, Insulin dep HEENT: No Tonsilitis Loss of Vision: Bilateral Hearing Impairment: Denies Cancer: No Psychosocial: Yes Anxiety, Depression Nursing Suicide Risk Score: 0 Integumentary: No Blood Disorders: No Adverse Reaction/Blood Tranf: No (N/A) Family Medical History Abdominal aortic aneurysm 09 BROTHER Cancer 03 MOTHER Cancer of colon 03 MOTHER 09 SISTER 19 MOTHER FH: COPD (chronic obstructive pulmonary disease) 19 FATHER FH: leukemia 09 SISTER 19 MOTHER FHx: stroke 19 FATHER Family history: Diabetes mellitus 09 BROTHER 09 SISTER 09 SISTER 09 SISTER Family history: Gastrointestinal disease 03 MOTHER 09 BROTHER Physical Exam Vital Signs Vital Signs - First Documented 09/22/17 08:55 Temp 93.9 Pulse 93 Resp 18 B/P (MAP) 142/103 (116) Pulse Ox 95 Capillary Refill : Less Than 3 Seconds General Appearance: WD/WN, moderate distress, obese HEENT: PERRL/EOMI, normal ENT inspection Neck: normal inspection Respiratory: lungs clear, normal breath sounds, no respiratory distress, no accessory muscle use Cardiovascular: regular rate, rhythm, no edema, no murmur Gastrointestinal: normal bowel sounds, soft, tenderness (right mid and lower abdomen) Extremities: non-tender, normal inspection Back: normal inspection, other (no muscular tenderness) Neurologic/Psychiatric: recruiting intern II-XII nml as tested, no motor/sensory deficits, alert, normal mood/affect, oriented x 3 Skin: normal color, warm/dry Progress/Results/Core Measures Lab Results Laboratory Tests Test 09/22/17 09:08 09/22/17 09:10 Range/Units White Blood Count 9.1 4.3-11.0 10^3/uL Red Blood Count 5.11 4.35-5.85 10^6/uL Hemoglobin 16.7 13.3-17.7 G/DL Hematocrit 47 40-54 % Mean Corpuscular Volume 93 80-99 FL Mean Corpuscular Hemoglobin 33 25-34 PG Mean Corpuscular Hemoglobin Concent 35 32-36 G/DL Red Cell Distribution Width 13.3 10.0-14.5 % Platelet Count 186 130-400 10^3/uL Mean Platelet Volume 11.1 H 7.4-10.4 FL Neutrophils (%) (Auto) 66 42-75 % Lymphocytes (%) (Auto) 22 12-44 % Monocytes (%) (Auto) 9 0-12 % Eosinophils (%) (Auto) 3 0-10 % Basophils (%) (Auto) 1 0-10 % Neutrophils # (Auto) 6.0 1.8-7.8 X 10^3 Lymphocytes # (Auto) 2.0 1.0-4.0 X 10^3 Monocytes # (Auto) 0.8 0.0-1.0 X 10^3 Eosinophils # (Auto) 0.2 0.0-0.3 10^3/uL Basophils # (Auto) 0.1 0.0-0.1 10^3/uL Sodium Level 139 135-145 MMOL/L Potassium Level 4.4 3.6-5.0 MMOL/L Chloride Level 107 98-107 MMOL/L Carbon Dioxide Level 21 21-32 MMOL/L Anion Gap 11 5-14 MMOL/L Blood Urea Nitrogen 24 H 7-18 MG/DL Creatinine 1.10 0.60-1.30 MG/DL Estimat Glomerular Filtration Rate > 60 BUN/Creatinine Ratio 22 Glucose Level 217 H 70-105 MG/DL Calcium Level 9.6 8.5-10.1 MG/DL Total Bilirubin 0.8 0.1-1.0 MG/DL Aspartate Amino Transf (AST/SGOT) 21 5-34 U/L Alanine Aminotransferase (ALT/SGPT) 44 0-55 U/L Alkaline Phosphatase 62 40-136 U/L Total Protein 7.2 6.4-8.2 GM/DL Albumin 4.3 3.2-4.5 GM/DL Urine Color YELLOW Urine Clarity CLEAR Urine pH 5 5-9 Urine Specific [place] 1.025 H 1.016-1.022 Urine Protein 3+ H NEGATIVE Urine Glucose (UA) 4+ H NEGATIVE Urine Ketones NEGATIVE NEGATIVE Urine Nitrite NEGATIVE NEGATIVE Urine Bilirubin NEGATIVE NEGATIVE Urine Urobilinogen NORMAL NORMAL MG/DL Urine Leukocyte Esterase NEGATIVE NEGATIVE Urine RBC (Auto) NEGATIVE NEGATIVE Urine RBC NONE /HPF Urine WBC 0-2 /HPF Urine Squamous Epithelial Cells RARE /HPF Urine Crystals NONE /LPF Urine Bacteria NEGATIVE /HPF Urine Casts NONE /LPF Urine Mucus NEGATIVE /LPF Urine Culture Indicated NO My Orders Orders - JORGE OLMOS MD Ketorolac Injection (Toradol Injection) (09/22/17 09:15) Cbc With Automated Diff (09/22/17 09:08) Comprehensive Metabolic Panel (09/22/17 09:08) Ua Culture If Indicated (09/22/17 09:08) Saline Lock/Iv-Start (09/22/17 09:08) Ns Iv 1000 Ml (Sodium Chloride 0.9%) (09/22/17 09:08) Ketorolac Injection (Toradol Injection) (09/22/17 09:04) Fentanyl Injection (Sublimaze Injection (09/22/17 09:45) Ct Abd/Pelvis Wo(Kidney Stone) (09/22/17 09:35) Medications Given in ED Current Medications Medications Dose Ordered Sig/Lamin Route Start Time Stop Time Status Last Admin Dose Admin Fentanyl Citrate 100 mcg ONCE ONCE IVP 09/22/17 09:45 09/22/17 09:46 DC 09/22/17 09:43 100 MCG Ketorolac Tromethamine 15 mg ONCE ONCE IVP 09/22/17 09:15 09/22/17 09:16 DC 09/22/17 09:10 15 MG Sodium Chloride 1,000 ml @ 0 mls/hr Q0M ONCE IV 09/22/17 09:08 09/22/17 09:09 DC 09/22/17 09:14 1,000 MLS/HR Vital Signs/I&O 09/22/17 08:55 Temp 93.9 Pulse 93 Resp 18 B/P (MAP) 142/103 (116) Pulse Ox 95 Blood Pressure Mean: 116 Progress Note #1: Time: 09:45 Progress Note Patient's pain and symptom pattern was consistent with ureteral stone which he has had in the past. Toradol was given for additional pain management. Progress Note #2: Time: 10:36 Progress Note Patient received Toradol and fentanyl was added. Pain is much improved after treatment. CT was performed after options discussed with patient. CT demonstrated subacute tidy calculi within the right kidney but no calculi within the ureter and no hydronephrosis. Based on his symptoms and presentation , I suspect he had a very small ureteral stone that passed this morning. Diagonstic Imaging: CT Plain Films/CT/US/NM/MRI: abdomen, c-spine Comments CT abdomen and pelvis viewed by me and report reviewed. See report below: NAME: ADRIANAYAMILKALUCI MED REC#: [id number] PT STATUS: REG ER : 1965 PHYSICIAN: JORGE OLMOS MD ADMIT DATE: 09/22/17/ER Draft Date of Exam:09/22/17 CT ABD/PELVIS WO(KIDNEY STONE) PROCEDURE: CT urinary tract, rule out kidney stone. TECHNIQUE: Multiple contiguous axial images were obtained through the abdomen and pelvis without the use of intravenous contrast. INDICATION: Back pain. History of nephrolithiasis. Exam compared to 06/05/2016 and correlated with overlapped images at a more recent chest CT 07/28/2017. Tiny radiopacity within a right upper pole calyx seen on image 61 is believed to be tiny nonobstructing 1-2 mm stone. A 3-4 mm calculus was in a lower pole calyx of the right kidney on the prior study. This can no longer be identified. No hydronephrosis and no opaque ureteral calculi. Pelvic phleboliths showed no change in their alignment or distribution from prior. No stones within the urinary bladder lumen. No perinephric or periureteric edema. There is a probable left renal midpole calculus nonobstructing 2 mm left ureter also negative. The gallbladder surgically absent, there is no pathological bile duct dilatation. The adrenals, spleen and pancreas are unremarkable. There is no adrenal mass. Tiny supraumbilical fatty abdominal wall hernia chronic. No acute abdominal wall fluid collection. There is no appendicitis or diverticulitis. There is no ascites, abscess, hematoma or other fluid collection. There was no focal inflammatory process. No pneumatosis or free gas. IMPRESSION: Tiny punctate nonobstructing renal calculi. No hydronephrosis or opaque ureteral stone. Pelvic phleboliths noted with no bladder calculus. No inflammatory process, obstructive features or acute findings are identified at today's study. Dictated on workstation # [id number] Dict: 09/22/17 1004 Trans: 09/22/17 1015 [facility] [id number] Interpreted by: LESLY BECERRA Departure Impression Primary Impression: Lower back pain Qualified Codes: M54.5 - Low back pain Additional Impression: Right sided abdominal pain Disposition: HOME, SELF-CARE Condition: Improved Departure-Patient Inst. Decision time for Depature: 10:31 Referrals: IRINEO GONSALEZ DO (PCP/Family) Primary Care Physician Patient Instructions: Kidney Stones in Adults Add. Discharge Instructions: Drink plenty of clear liquids. You may take up to 2 of your hydrocodone every 4 hours as needed for this acute exacerbation of pain. Please let your pain management physician know about your situation. You may add ibuprofen up to 600 mg every 6 hours as needed to your hydrocodone. Please return to care if you have worsening symptoms or develop new symptoms such as fever. Follow-up with your doctor within the next couple of weeks. Fill Zofran if needed for treatment of nausea. All discharge instructions reviewed with patient and/or family. Voiced understanding. Scripts Ondansetron (Zofran Odt) 4 Mg Tab.rapdis 4 MG SL Q4H PRN for NAUSEA/VOMITING-1ST LINE, #10 TAB Prov: JORGE OLMOS MD 09/22/17 Copy Copies To 1: IRINEO GONSALEZ JOSHUA T MD September 22, 2017 09:45
--- NOTE | 2017-09-22 10:15 | Diagnostic Imaging Report ---
PROCEDURE: CT urinary tract, rule out kidney stone. TECHNIQUE: Multiple contiguous axial images were obtained through the abdomen and pelvis without the use of intravenous contrast. INDICATION: Back pain. History of nephrolithiasis. Exam compared to 06/05/2016 and correlated with overlapped images at a more recent chest CT 07/28/2017. Tiny radiopacity within a right upper pole calyx seen on image 61 is believed to be tiny nonobstructing 1-2 mm stone. A 3-4 mm calculus was in a lower pole calyx of the right kidney on the prior study. This can no longer be identified. No hydronephrosis and no opaque ureteral calculi. Pelvic phleboliths showed no change in their alignment or distribution from prior. No stones within the urinary bladder lumen. No perinephric or periureteric edema. There is a probable left renal midpole calculus nonobstructing 2 mm left ureter also negative. The gallbladder surgically absent, there is no pathological bile duct dilatation. The adrenals, spleen and pancreas are unremarkable. There is no adrenal mass. Tiny supraumbilical fatty abdominal wall hernia chronic. No acute abdominal wall fluid collection. There is no appendicitis or diverticulitis. There is no ascites, abscess, hematoma or other fluid collection. There was no focal inflammatory process. No pneumatosis or free gas. IMPRESSION: Tiny punctate nonobstructing renal calculi. No hydronephrosis or opaque ureteral stone. Pelvic phleboliths noted with no bladder calculus. No inflammatory process, obstructive features or acute findings are identified at today's study. Dictated by: Dictated on workstation # [id number]
[2017-09-22] MEDS ORDERED: ONDA4TAB8 SL (10:37)
[2017-09-22 10:48] VITALS: BP 142/103
== END 2017-09-22 10:47 | disposition home or self-care (01) ==
LOC: EDUNIT# 08:51 → ER 08:53
DX: M54.5 Low back pain (principal); R10.31 Right lower quadrant pain; G47.30 Sleep apnea, unspecified; E78.00 Pure hypercholesterolemia, unspecified; I10 Essential (primary) hypertension; G43.909 Migraine, unspecified, not intractable, without status migrainosus; M10.9 Gout, unspecified; E11.9 Type 2 diabetes mellitus without complications; F41.9 Anxiety disorder, unspecified; F32.9 Major depressive disorder, single episode, unspecified; M06.9 Rheumatoid arthritis, unspecified; Z86.010 Personal history of colon polyps; Z87.19 Personal history of other diseases of the digestive system; Z80.0 Family history of malignant neoplasm of digestive organs; Z79.4 Long term (current) use of insulin; Z87.442 Personal history of urinary calculi; Z87.891 Personal history of nicotine dependence; Z87.01 Personal history of pneumonia (recurrent); Z90.49 Acquired absence of other specified parts of digestive tract; Z90.89 Acquired absence of other organs
CPT/HCPCS: 36415; 74176; 80053; 81000; 85025; 96374; 96375

== ENCOUNTER → 2017-10-06 | Outpatient (CLI) | payer MEDICARE, OTHER ==
[~2017-10-06] MED LIST changes: +ONDA4TAB8 SL
--- NOTE | 2017-10-06 13:05 | Diagnostic Imaging Report ---
INDICATION: Recent trauma. Pain. COMPARISON: 12/28/2013. FINDINGS: Three views of the right foot demonstrate no acute fracture or dislocation. There are no focal osseous lesions. There is no soft tissue swelling. Joint spaces are well maintained. No radiopaque foreign bodies are seen. IMPRESSION: No acute fractures or dislocations of the right foot. Dictated by: Dictated on workstation # [id number]
== END ==
LOC: RAD 12:41
PROVIDERS: ATTEND Nurse Practitioner Family
DX: S99.921A Unspecified injury of right foot, initial encounter (principal)
CPT/HCPCS: 73630

== ENCOUNTER → 2017-10-08 | Outpatient (CLI) | payer MEDICARE, OTHER ==
--- NOTE | 2017-10-08 16:12 | Diagnostic Imaging Report ---
INDICATION: Left thyroid nodule. FINDINGS: Sonographic guidance was provided for Dr. Packer for a left thyroid nodule FNA. IMPRESSION: Sonographic guidance for a left thyroid FNA for Dr. Packer. Dictated by: Dictated on workstation # [id number]
--- NOTE | 2017-10-08 16:12 | Diagnostic Imaging Report ---
INDICATION: Right thyroid nodule. FINDINGS: Sonographic guidance was provided for Dr. Packer for a right thyroid fine-needle aspiration. Multiple images demonstrated a right thyroid mass. IMPRESSION: Ultrasound guidance for a right thyroid lobe fine needle aspiration. Dictated by: Dictated on workstation # [id number]
== END ==
LOC: RAD 10:28
PROVIDERS: ATTEND Otolaryngology Otolaryngology/Facial Plastic Surgery
DX: E04.2 Nontoxic multinodular goiter (principal)
CPT/HCPCS: 76942

== ENCOUNTER 2018-01-27 21:00 | Outpatient (CLI) | payer MEDICARE, OTHER ==
[~2018-01-27 21:00] MED LIST changes: -OXYC-197 PO; +OXYC1TAB87 PO
== END 2018-01-28 06:30 | disposition home or self-care (01) ==
LOC: SLEEP 21:00
PROVIDERS: ATTEND Nurse Practitioner Family
DX: G47.33 Obstructive sleep apnea (adult) (pediatric) (principal); Z78.9 Other specified health status
CPT/HCPCS: 95811

== ENCOUNTER → 2018-03-30 | Outpatient (CLI) | payer MEDICARE, OTHER ==
--- NOTE | 2018-03-30 15:38 | Diagnostic Imaging Report ---
PROCEDURE: US Thyroid. TECHNIQUE: Multiple real-time grayscale images were obtained of the thyroid in various projections. INDICATION: Thyroid nodule Right lobe of the thyroid measures 6.0 x 2.2 x 2.5 cm. There is a 2.4 x 1.7 x 2.0 cm nodule in the inferior pole of the right lobe of the thyroid that has largely undergone cystic degeneration. The internal component does not have any detectable blood flow by Doppler ultrasound. There are no microcalcifications. Left lobe of thyroid measures 5.2 x 2.3 x 2.4 cm. There is a small calcification in the upper pole measuring 5 x 4 mm. There is an isoechoic nodule in the upper pole of left lobe with a hypoechoic halo that measures 16 x 15 x 14 mm. There is some internal vascularity. There are no microcalcifications. IMPRESSION: Multinodular goiter. Dictated by: Dictated on workstation # [id number]
== END ==
LOC: RAD 09:25
PROVIDERS: ATTEND Otolaryngology Otolaryngology/Facial Plastic Surgery
DX: E04.2 Nontoxic multinodular goiter (principal)
CPT/HCPCS: 76536

== ENCOUNTER 2018-04-02 07:45 | Emergency (ER) | payer MEDICARE, OTHER ==
[~2018-04-02] VITALS: Ht 180.3 cm; Wt 117.9 kg
--- OUTSIDE RECORDS SUMMARY | 2018-04-02 08:07 | XMS REPORT | Clinical Summary ---
Author Author [facility] Organization [facility] Address Unknown Phone Unavailable Care Team Providers Care Engineering Production Liaison Name Role Phone PCP Unavailable Source Comments Some departments are not documenting in the electronic medical record. If you do not see the information that you expected, contact Release of Information in the Health Information Management department at [phone] for further assistance in locating additional records.[facility] Allergies Not on File Current Medications [...] TETANUS VACCINE 1981 COLORECTAL CANCER 2014 SCREENING SHINGLES RECOMBINANT 2014 VACCINE (1 of 2) INFLUENZA VACCINE 12/23/2017 Results Not on filefrom Last 3 Months
--- OUTSIDE RECORDS SUMMARY | 2018-04-02 08:10 | XMS REPORT | Continuity of Care Document ---
Author Author [facility] Organization [facility] Address Unknown Phone Unavailable Allergies Active Description Code Type Severity Reaction Onset Reported/Identified Relationship to Patient Clinical Status Yes No Known Drug Allergies [id number] Drug Allergy Unknown N/A 01/13/2018 Medications There is no data. Problems Date [...] DIEHL DO Ot 553.20 04/28/2014 LIDIA DIEHL DO Ot V72.63 04/28/2014 LIDIA DIEHL DO Ot V74.8 05/05/2014 LIDIA DIEHL DO, Ot 553.20 05/05/2014 LIDIA DIEHL DO, Ot [...] DIEHL DO Ot 414.01 CORONARY ATHEROSCLEROSIS OF [place] CORON 12/08/2014 LIDIA DIEHL DO Ot 530.81 [...] 01/18/2015 LIDIA DIEHL DO Ot 568.0 PERITONEAL EZZSKIXGX-LPMD-OR/INF 01/18/2015 LIDIA DIEHL DO Ot 585.2 CHRONIC [...] CHR KD ST 04/09/2016 NATALYA LYNCH, HILDA Alcaraz Ot 581.9 NEPHROTIC SYNDROME NOS 04/09/2016 NATALYA [...] ENCOUNTER FOR OTHER PREPROCEDURAL EXAMIN 04/09/2016 LIDIA IDEHL DO Ot R10.9 UNSPECIFIED ABDOMINAL PAIN 04/24/2016 [...] UNSP, W/O PERF 06/30/2016 GELLENDER DO, LUCI Graff Ot N20.0 CALCULUS OF KIDNEY 07/03/2016 GELLENDER DO, LUCI Graff Ot K57.90 DVRTCLOS OF INTEST, PART UNSP, W/O PERF 07/03/2016 GELLENDER DO, LUCI Garff Ot N20.0 CALCULUS OF KIDNEY 02/13/2017 ALEJANDRO LYNCH, TALITA Ot E11.9 TYPE 2 DIABETES MELLITUS WITHOUT COMPLIC 02/13/2017 ALEJANDRO LYNCH, TALITA Sears I10 ESSENTIAL (PRIMARY) HYPERTENSION 02/13/2017 ALEJANDRO LYNCH, TALITA Ot M75.101 UNSP ROTATR-CUFF TEAR/RUPTR OF RIGHT [place] 02/13/2017 ALEJANDRO LYNCH, TALITA Ot Z98.1 ARTHRODESIS STATUS 07/20/2017 GELLENDER DO, LUCI Graff Ot A41.9 SEPSIS, UNSPECIFIED ORGANISM 07/20/2017 GELLENDER DO, LUCI Graff Ot E11.9 TYPE 2 DIABETES MELLITUS WITHOUT COMPLIC 07/20/2017 GELLENDER DO, LUCI Graff Ot E78.00 PURE HYPERCHOLESTEROLEMIA, UNSPECIFIED 07/20/2017 GELLENDER DO, LUCI Graff Ot F32.9 MAJOR DEPRESSIVE DISORDER, SINGLE EPISOD 07/20/2017 GELLENDER DO, LUCI Graff Ot F41.9 ANXIETY DISORDER, UNSPECIFIED 07/20/2017 GELLENDER DO, LUCI Graff Ot G43.909 MIGRAINE, UNSP, NOT INTRACTABLE, WITHOUT 07/20/2017 GELLENDER DO, LUCI Graff Ot G47.30 SLEEP APNEA, UNSPECIFIED 07/20/2017 GELLENDER DO, LUCI Graff Ot I10 ESSENTIAL (PRIMARY) HYPERTENSION 07/20/2017 GELLENDER DO, LUCI Graff Ot J15.211 PNEUMONIA DUE TO METHICILLIN SUSCEP STAP 07/20/2017 GELLENDER DO, LUCI Graff Ot J98.01 ACUTE BRONCHOSPASM 07/20/2017 TASHALENDER DO, LUCI Graff Ot M06.9 RHEUMATOID ARTHRITIS, UNSPECIFIED 07/20/2017 TASHALENDER DO, LUCI Graff Ot M10.9 GOUT, UNSPECIFIED 07/20/2017 TASHALENDER DO, LUCI Graff Ot M19.91 PRIMARY OSTEOARTHRITIS, UNSPECIFIED SITE 07/20/2017 YOONDER , LUCI Graff Ot M54.9 DORSALGIA, UNSPECIFIED 07/20/2017 TASHALENDER DO, LUCI Graff Ot M79.7 FIBROMYALGIA 07/20/2017 [facility], LUCI Graff Ot T38.0X5A ADVERSE EFFECT OF GLUCOCORT/SYNTH ANALOG 07/20/2017 YOONDER DO, LUCI Graff Ot Z79.4 SPLINE ROLLING MACHINE JOB SETTER (CURRENT) USE OF INSULIN 07/20/2017 YOONDER DO, LUCI Graff Ot Z79.52 SPLINE ROLLING MACHINE JOB SETTER (CURRENT) USE OF SYSTEMIC STER 07/20/2017 YOONDER , LUCI Graff Ot Z86.010 PERSONAL HISTORY OF COLONIC POLYPS 07/20/2017 BRIDGER STEPHENSON, LUCI Graff Ot Z87.442 PERSONAL HISTORY OF URINARY CALCULI 07/29/2017 WALLACE STEPHENSON, IRINEO Ot E04.1 NONTOXIC SINGLE THYROID NODULE 07/29/2017 WALLACE STEPHENSON, IRINEO Ot I25.10 ATHSCL HEART DISEASE OF [place] CORONARY 07/29/2017 WALLACE STEPHENSON, IRINEO Ot J15.20 PNEUMONIA DUE TO STAPHYLOCOCCUS, UNSPECI 07/29/2017 WALLACE STEPHENSON, IRINEO Ot K76.0 FATTY (CHANGE OF) LIVER, NOT ELSEWHERE C 08/05/2017 BRIDGER STEPHENSONLUCI Ot 786.50 CHEST PAIN NOS 08/05/2017 BRIDGER STEPHENSONLUCI Ot 959.3 ELB/FOREARM/WRST INJ NOS 08/05/2017 BRIDGER STEPHENSONLUCI Ot E000.8 OTHER EXTERNAL CAUSE STATUS 08/05/2017 BRIDGER STEPHENSONLUCI Ot E888.9 FALL NOS 08/05/2017 BRIDGER STEPHENSONLUCI Ot 959.7 LOWER LEG INJURY NOS 08/05/2017 BRIDGER STEPHENSONLUCI Ot E928.9 ACCIDENT NOS 08/05/2017 NATALYA LYNCH, HILDA S Ot 250.40 DIAB W RENAL MANIFEST, TYPE II OR UNSPEC 08/05/2017 NATALYA LYNCH, AHMED S Ot 272.4 HYPERLIPIDEMIA NEC/NOS 08/05/2017 NATALYA LYNCH, HILDA Alcaraz Ot 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, BENIGN, W CHR KD ST 08/05/2017 NATALYA LYNCH, HILDA Alcaraz Ot 581.9 NEPHROTIC SYNDROME NOS 08/05/2017 NATALYA LYNCH, HILDA Alcraaz Ot 583.81 NEPHRITIS NOS IN OTH DIS 08/05/2017 NATALYA LYNCH, HILDA Alcaraz Ot 585.2 CHRONIC KIDNEY DISEASE, STAGE II (MILD) 08/05/2017 LIDIA DIEHL DO Ot 553.20 VENTRAL HERNIA NOS 08/05/2017 LIDIA DIEHL DO Ot V72.63 PRE-PROCEDURAL LABORATORY EXAMINATION 08/05/2017 LIDIA DIEHL DO Ot V74.8 SCREEN-BACTERIAL DIS NEC 08/05/2017 LIDIA DIEHL DO Ot 787.3 FLATUL/ERUCTAT/GAS PAIN 08/05/2017 LIDIA DIEHL DO Ot V16.0 FAMILY HX-GI MALIGNANCY 08/05/2017 LIDIA DIEHL DO Ot V72.84 EXAM PRE-OPERATIVE NOS 08/05/2017 LIIDA DIEHL DO Ot 585.2 CHRONIC KIDNEY DISEASE, STAGE II (MILD) 08/05/2017 LIDIA DIEHL DO Ot V72.63 PRE-PROCEDURAL LABORATORY EXAMINATION 08/05/2017 LIDIA DIEHL DO Ot V74.8 SCREEN-BACTERIAL DIS NEC 08/05/2017 LIDIA DIEHL DO Ot K25.9 GASTRIC ULCER, UNSP ACUTE OR CHRONIC, 08/05/2017 LIDIA DIEHL DO Ot Z01.818 ENCOUNTER FOR OTHER PREPROCEDURAL EXAMIN 08/05/2017 LIDIA DIEHL DO Ot K25.9 GASTRIC ULCER, UNSP ACUTE OR CHRONIC, 08/05/2017 LIDIA DIEHL DO Ot Z01.818 ENCOUNTER FOR OTHER PREPROCEDURAL EXAMIN 08/05/2017 LIDIA DIEHL DO Ot R10.32 LEFT LOWER QUADRANT PAIN 08/05/2017 LIDIA DIEHL DO Ot R10.9 UNSPECIFIED ABDOMINAL PAIN 08/05/2017 LUCI SPARKS DO Ot K57.90 DVRTCLOS OF INTEST, PART UNSP, W/O PERF 08/05/2017 BRIDGER STEPHENSONLUCI Ot N20.0 CALCULUS OF KIDNEY 08/05/2017 IRINEO GONSALEZ DO Ot E04.1 NONTOXIC SINGLE THYROID NODULE 08/05/2017 IRINEO GONSALEZ DO Ot I25.10 ATHSCL HEART DISEASE OF [place] CORONARY 08/05/2017 IRINEO GONSALEZ DO Ot J15.20 PNEUMONIA DUE TO STAPHYLOCOCCUS, UNSPECI 08/05/2017 IRINEO GONSALEZ DO Ot K76.0 FATTY (CHANGE OF) LIVER, NOT ELSEWHERE C 08/06/2017 IRINEO GONSALEZ DO Ot E04.2 NONTOXIC MULTINODULAR GOITER 08/14/2017 BIANCA CARR DO Ot J18.9 PNEUMONIA, UNSPECIFIED ORGANISM 08/14/2017 BIANCA CARR DO Ot R06.00 DYSPNEA, UNSPECIFIED 08/14/2017 BIANCA CARR DO Ot R91.8 OTHER NONSPECIFIC ABNORMAL FINDING OF [place] 08/14/2017 BIANCA CARR DO, Ot J18.9 PNEUMONIA, UNSPECIFIED ORGANISM 08/14/2017 BIANCA CARR DO Ot R06.00 DYSPNEA, UNSPECIFIED 08/14/2017 BIANCA CARR DO Ot R91.8 OTHER NONSPECIFIC ABNORMAL FINDING OF [place] 08/17/2017 BIANCA CARR DO, Ot J18.9 PNEUMONIA, UNSPECIFIED ORGANISM 08/17/2017 BIANCA CARR DO Ot R06.00 DYSPNEA, UNSPECIFIED 08/17/2017 BIANCA CARR DO Ot R91.8 OTHER NONSPECIFIC ABNORMAL FINDING OF [place] 08/17/2017 BIANCA CARR DO, Ot J18.9 PNEUMONIA, UNSPECIFIED ORGANISM 08/17/2017 BIANCA CARR DO Ot R06.00 DYSPNEA, UNSPECIFIED 08/17/2017 BIANCA CARR DO Ot R91.8 OTHER NONSPECIFIC ABNORMAL FINDING OF [place] 08/17/2017 BIANCA CARR DO Ot Z01.811 ENCOUNTER FOR PREPROCEDURAL RESPIRATORY 08/17/2017 AMANDA PRINCE APRN Ot G47.30 SLEEP APNEA, UNSPECIFIED 08/18/2017 IRINEO GONSALEZ DO Ot E04.1 NONTOXIC SINGLE THYROID NODULE 08/18/2017 IRINEO GONSALEZ DO Ot I25.10 ATHSCL HEART DISEASE OF [place] CORONARY 08/18/2017 IRINEO GONSALEZ DO Ot J15.20 PNEUMONIA DUE TO STAPHYLOCOCCUS, UNSPECI 08/18/2017 IRINEO GONSALEZ DO Ot K76.0 FATTY (CHANGE OF) LIVER, NOT ELSEWHERE C 08/18/2017 BIANCA CARR DO Ot J18.9 PNEUMONIA, UNSPECIFIED ORGANISM 08/18/2017 BIANCA CARR DO Ot R06.00 DYSPNEA, UNSPECIFIED 08/18/2017 BIANCA CARR DO Ot R91.8 OTHER NONSPECIFIC ABNORMAL FINDING OF [place] 08/18/2017 BIANCA CARR DO Ot Z01.811 ENCOUNTER FOR PREPROCEDURAL RESPIRATORY 08/21/2017 AMANDA PRINCE APRN Ot G25.81 RESTLESS LEGS SYNDROME 08/21/2017 AMANDA PRINCE APRN Ot J18.9 PNEUMONIA, UNSPECIFIED ORGANISM 08/21/2017 AMANDA PRINCE APRN Ot J98.11 ATELECTASIS 08/21/2017 AMANDA PRINCE APRN Ot K21.9 GASTRO-ESOPHAGEAL REFLUX DISEASE WITHOUT 08/21/2017 AMANDA PRINCE APRN Ot R91.8 OTHER NONSPECIFIC ABNORMAL FINDING OF [place] 08/21/2017 BIANCA CARR DO Ot G25.61 DRUG INDUCED TICS 08/21/2017 BIANCA CARR DO Ot G47.33 OBSTRUCTIVE SLEEP APNEA (ADULT) (PEDIATR 08/21/2017 BIANCA CARR DO Ot J18.9 PNEUMONIA, UNSPECIFIED ORGANISM 08/21/2017 BIANCA CARR DO Ot K21.9 GASTRO-ESOPHAGEAL REFLUX DISEASE WITHOUT 08/21/2017 BIANCA CARR DO Ot R06.00 DYSPNEA, UNSPECIFIED 08/21/2017 BIANCA CARR DO Ot R91.8 OTHER NONSPECIFIC ABNORMAL FINDING OF [place] 08/21/2017 BIANCA CARR DO Ot Z79.899 OTHER CUSTODIAL (CURRENT) DRUG THERAPY 08/21/2017 IRINEO GONSALEZ DO Ot E04.1 NONTOXIC SINGLE THYROID NODULE 08/21/2017 IRINEO GONSALEZ DO Ot I25.10 ATHSCL HEART DISEASE OF [place] CORONARY 08/21/2017 IRINEO GONSALEZ DO Ot J15.20 PNEUMONIA DUE TO STAPHYLOCOCCUS, UNSPECI 08/21/2017 GONSALEZ DO, IRINEO Ot K76.0 FATTY (CHANGE OF) LIVER, NOT ELSEWHERE C 08/21/2017 BIANCA CARR DO Ot G25.61 DRUG INDUCED TICS 08/21/2017 BIANCA CARR DO Ot G47.33 OBSTRUCTIVE SLEEP APNEA (ADULT) (PEDIATR 08/21/2017 BIANCA CARR DO Ot J18.9 PNEUMONIA, UNSPECIFIED ORGANISM 08/21/2017 BIANCA CARR DO Ot K21.9 GASTRO-ESOPHAGEAL REFLUX DISEASE WITHOUT 08/21/2017 BIANCA CARR DO M Ot R06.00 DYSPNEA, UNSPECIFIED 08/21/2017 BIANCA CARR DO M Ot R91.8 OTHER NONSPECIFIC ABNORMAL FINDING OF [place] 08/21/2017 BIANCA CARR DO Ot Z79.899 OTHER CUSTODIAL (CURRENT) DRUG THERAPY 08/25/2017 GONSALEZ DO, IRINEO Ot R05 COUGH 08/27/2017 GONSALEZ DO, IRINEO Ot R05 COUGH 08/27/2017 GONSALEZ DO, IRINEO Ot E04.2 NONTOXIC MULTINODULAR GOITER 09/01/2017 GONSALEZ DO, IRINEO Ot E04.2 NONTOXIC MULTINODULAR GOITER 09/11/2017 BIANCA CARR DO M Ot G25.61 DRUG INDUCED TICS 09/11/2017 BIANCA CARR DO Ot G47.33 OBSTRUCTIVE SLEEP APNEA (ADULT) (PEDIATR 09/11/2017 BIANCA CARR DO Ot J18.9 PNEUMONIA, UNSPECIFIED ORGANISM 09/11/2017 BIANCA CARR DO Ot K21.9 GASTRO-ESOPHAGEAL REFLUX DISEASE WITHOUT 09/11/2017 BIANCA CARR DO Ot R06.00 DYSPNEA, UNSPECIFIED 09/11/2017 BIANCA CARR DO Ot R91.8 OTHER NONSPECIFIC ABNORMAL FINDING OF [place] 09/11/2017 BIANCA CARR DO Ot 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 09/11/2017 BIANCA CARR DO Ot G25.61 DRUG INDUCED TICS 09/11/2017 BIANCA CARR DO M Ot G47.33 OBSTRUCTIVE SLEEP APNEA (ADULT) (PEDIATR 09/11/2017 BIANCA CARR DO Ot J18.9 PNEUMONIA, UNSPECIFIED ORGANISM 09/11/2017 BIANCA CARR DO Ot K21.9 GASTRO-ESOPHAGEAL REFLUX DISEASE WITHOUT 09/11/2017 BIANCA CARR DO Ot R06.00 DYSPNEA, UNSPECIFIED 09/11/2017 BIANCA CARR DO Ot R91.8 OTHER NONSPECIFIC ABNORMAL FINDING OF [place] 09/11/2017 BIANCA CARR DO Ot Z79.899 OTHER CUSTODIAL (CURRENT) DRUG THERAPY 09/11/2017 AMANDA PRINCE RECOVERY COORDINATOR Ot G25.81 RESTLESS LEGS SYNDROME 09/11/2017 AMANDA PRINCE RECOVERY COORDINATOR Ot J18.9 PNEUMONIA, UNSPECIFIED ORGANISM 09/11/2017 YADIRA PRINCEINE E RECOVERY COORDINATOR Ot J98.11 ATELECTASIS 09/11/2017 AMANDA PRINCE RECOVERY COORDINATOR Ot K21.9 GASTRO-ESOPHAGEAL REFLUX DISEASE WITHOUT 09/11/2017 YADIRA PRINCEINE E RECOVERY COORDINATOR Ot R91.8 OTHER NONSPECIFIC ABNORMAL FINDING OF [place] 09/15/2017 AMANDA PRINCE RECOVERY COORDINATOR Ot G25.81 RESTLESS LEGS SYNDROME 09/15/2017 AMANDA PRINCE RECOVERY COORDINATOR Ot J18.9 PNEUMONIA, UNSPECIFIED ORGANISM 09/15/2017 YADIRA PRINCEINE E RECOVERY COORDINATOR Ot J98.11 ATELECTASIS 09/15/2017 AMANDA PRINCE RECOVERY COORDINATOR Ot K21.9 GASTRO-ESOPHAGEAL REFLUX DISEASE WITHOUT 09/15/2017 AMANDA PRINCE RECOVERY COORDINATOR Ot R91.8 OTHER NONSPECIFIC ABNORMAL FINDING OF [place] 09/17/2017 AMANDA PRINCE RECOVERY COORDINATOR Ot G25.81 RESTLESS LEGS SYNDROME 09/17/2017 AMANDA PRINCE RECOVERY COORDINATOR Ot G47.30 SLEEP APNEA, UNSPECIFIED 09/17/2017 YADIRA PRINCEINE E RECOVERY COORDINATOR Ot G25.81 RESTLESS LEGS SYNDROME 09/17/2017 AMANDA PRINCE E RECOVERY COORDINATOR Ot G47.30 SLEEP APNEA, UNSPECIFIED 09/22/2017 AMARILIS LYNCH, JORGE Dewey Ot E11.9 TYPE 2 DIABETES MELLITUS WITHOUT COMPLIC 09/22/2017 AMARILIS LYNCH, JORGE Dewey Ot E78.00 PURE HYPERCHOLESTEROLEMIA, UNSPECIFIED 09/22/2017 AMARILIS LYNCH, JORGE Dewey Ot F32.9 MAJOR DEPRESSIVE DISORDER, SINGLE EPISOD 09/22/2017 AMARILIS LYNCH, JORGE Dewey Ot F41.9 ANXIETY DISORDER, UNSPECIFIED 09/22/2017 JORGE OLMOS MD, Ot G43.909 MIGRAINE, UNSP, NOT INTRACTABLE, WITHOUT 09/22/2017 JORGE OLMOS MD, Ot G47.30 SLEEP APNEA, UNSPECIFIED 09/22/2017 JORGE OLMOS MD, Ot I10 ESSENTIAL (PRIMARY) HYPERTENSION 09/22/2017 JORGE OLMOS MD, Ot M06.9 RHEUMATOID ARTHRITIS, UNSPECIFIED 09/22/2017 JORGE OLMOS MD, Ot M10.9 GOUT, UNSPECIFIED 09/22/2017 JORGE OLMOS MD Ot M54.5 LOW BACK PAIN 09/22/2017 JORGE OLMOS MD Ot R10.31 RIGHT LOWER QUADRANT PAIN 09/22/2017 JORGE OLMOS MD, Ot Z79.4 CUSTODIAL (CURRENT) USE OF INSULIN 09/22/2017 JORGE OLMOS MD, Ot Z80.0 FAMILY HISTORY OF MALIGNANT NEOPLASM OF 09/22/2017 JORGE OLMOS MD, Ot Z86.010 PERSONAL HISTORY OF COLONIC POLYPS 09/22/2017 JORGE OLMOS MD, Ot Z87.01 PERSONAL HISTORY OF PNEUMONIA (RECURRENT 09/22/2017 JORGE OLMOS MD, Ot Z87.19 PERSONAL HISTORY OF OTHER DISEASES OF TH 09/22/2017 JORGE OLMOS MD, Ot Z87.442 PERSONAL HISTORY OF URINARY CALCULI 09/22/2017 JORGE OLMOS MD, Ot Z87.891 PERSONAL HISTORY OF NICOTINE DEPENDENCE 09/22/2017 JORGE OLMOS MD Ot Z90.49 ACQUIRED ABSENCE OF OTHER SPECIFIED PART 09/22/2017 JROGE OLMOS MD Ot Z90.89 ACQUIRED ABSENCE OF OTHER ORGANS 09/24/2017 JORGE OLMOS MD, Ot E11.9 TYPE 2 DIABETES MELLITUS WITHOUT COMPLIC 09/24/2017 JORGE OLMOS MD, Ot E78.00 PURE HYPERCHOLESTEROLEMIA, UNSPECIFIED 09/24/2017 JORGE OLMOS MD, Ot F32.9 MAJOR DEPRESSIVE DISORDER, SINGLE EPISOD 09/24/2017 JORGE OLMOS MD Ot F41.9 ANXIETY DISORDER, UNSPECIFIED 09/24/2017 JORGE OLMOS MD Ot G43.909 MIGRAINE, UNSP, NOT INTRACTABLE, WITHOUT 09/24/2017 JORGE OLMOS MD Ot G47.30 SLEEP APNEA, UNSPECIFIED 09/24/2017 JORGE OLMOS MD Ot I10 ESSENTIAL (PRIMARY) HYPERTENSION 09/24/2017 JORGE OLMOS MD Ot M06.9 RHEUMATOID ARTHRITIS, UNSPECIFIED 09/24/2017 JORGE OLMOS MD, Ot M10.9 GOUT, UNSPECIFIED 09/24/2017 JORGE OLMOS MD Ot M54.5 LOW BACK PAIN 09/24/2017 JORGE OLMOS MD, Ot R10.31 RIGHT LOWER QUADRANT PAIN 09/24/2017 JORGE OLMOS MD Ot Z79.4 SPLINE ROLLING MACHINE JOB SETTER (CURRENT) USE OF INSULIN 09/24/2017 JORGE OLMOS MD Ot Z80.0 FAMILY HISTORY OF MALIGNANT NEOPLASM OF 09/24/2017 JORGE OLMOS MD Ot Z86.010 PERSONAL HISTORY OF COLONIC POLYPS 09/24/2017 JORGE OLMOS MD Ot Z87.01 PERSONAL HISTORY OF PNEUMONIA (RECURRENT 09/24/2017 JORGE OLMOS MD Ot Z87.19 PERSONAL HISTORY OF OTHER DISEASES OF TH 09/24/2017 JORGE OLMOS MD Ot Z87.442 PERSONAL HISTORY OF URINARY CALCULI 09/24/2017 JORGE OLMOS MD Ot Z87.891 PERSONAL HISTORY OF NICOTINE DEPENDENCE 09/24/2017 JORGE OLMOS MD Ot Z90.49 ACQUIRED ABSENCE OF OTHER SPECIFIED PART 09/24/2017 JORGE OLMOS MD Ot Z90.89 ACQUIRED ABSENCE OF OTHER ORGANS 10/07/2017 YOLI MALONE Ot S99.921A UNSPECIFIED INJURY OF RIGHT FOOT, INITIA 10/07/2017 AMANDA PRINCE APRN Ot J18.9 PNEUMONIA, UNSPECIFIED ORGANISM 10/07/2017 AMANDA PRINCE APRN Ot R91.8 OTHER NONSPECIFIC ABNORMAL FINDING OF DH[place] 10/27/2017 YOLI MALONE Ot S99.921A UNSPECIFIED INJURY OF RIGHT FOOT, INITIA 10/29/2017 BERNIE OLIVER MD P Ot E04.2 NONTOXIC MULTINODULAR GOITER 10/29/2017 BERNIE OLIVER MD P Ot E04.2 NONTOXIC MULTINODULAR GOITER 10/30/2017 YOLI MALONE Ot S99.921A UNSPECIFIED INJURY OF RIGHT FOOT, INITIA 11/03/2017 BERNIE OLIVER MD P Ot E04.2 NONTOXIC MULTINODULAR GOITER 11/19/2017 BERNIE OLIVER MD P Ot E04.2 NONTOXIC MULTINODULAR GOITER 11/24/2017 BERNIE OLIVER MD Ot E04.2 NONTOXIC MULTINODULAR GOITER 01/13/2018 MOISÉS LOUIS MD, Ot Z01.818 ENCOUNTER FOR OTHER PREPROCEDURAL EXAMIN 01/20/2018 MOISÉS LOUIS MD, Ot D12.3 BENIGN NEOPLASM OF TRANSVERSE COLON 01/20/2018 MOISÉS LOUIS MD, Ot D12.4 BENIGN NEOPLASM OF DESCENDING COLON 01/20/2018 MOISÉS LOUIS MD Ot E11.9 TYPE 2 DIABETES MELLITUS WITHOUT COMPLIC 01/20/2018 MOISÉS LOUIS MD Ot E78.00 PURE HYPERCHOLESTEROLEMIA, UNSPECIFIED 01/20/2018 MOISÉS LOUIS MD, Ot F17.220 NICOTINE DEPENDENCE, CHEWING TOBACCO, UN 01/20/2018 MOISÉS LOUIS MD, Ot G62.9 POLYNEUROPATHY, UNSPECIFIED 01/20/2018 MOISÉS LOUIS MD, Ot I10 ESSENTIAL (PRIMARY) HYPERTENSION 01/20/2018 MOISÉS LOUIS MD Ot M10.9 GOUT, UNSPECIFIED 01/20/2018 MOISÉS LOUIS MD, Ot 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 01/20/2018 MOISÉS LOUIS MD, Ot Z80.0 FAMILY HISTORY OF MALIGNANT NEOPLASM OF 01/20/2018 MOISÉS LOUIS MD, Ot Z80.3 FAMILY HISTORY OF MALIGNANT NEOPLASM OF 01/20/2018 MOISÉS LOUIS MD, Ot Z98.1 ARTHRODESIS STATUS 01/22/2018 MOISÉS LOUIS MD, Ot D12.3 BENIGN NEOPLASM OF TRANSVERSE COLON 01/22/2018 KIDO MD, TAKAAKI Ot D12.4 BENIGN NEOPLASM OF DESCENDING COLON 01/22/2018 MOISÉS LOUIS MD Ot E11.9 TYPE 2 DIABETES MELLITUS WITHOUT COMPLIC 01/22/2018 MOISÉS LOUIS MD Ot E78.00 PURE HYPERCHOLESTEROLEMIA, UNSPECIFIED 01/22/2018 MOISÉS LOUIS MD Ot F17.220 NICOTINE DEPENDENCE, CHEWING TOBACCO, UN 01/22/2018 MOISÉS LOUIS MD Ot G62.9 POLYNEUROPATHY, UNSPECIFIED 01/22/2018 MOISÉS LOUIS MD Ot I10 ESSENTIAL (PRIMARY) HYPERTENSION 01/22/2018 MOISÉS LOUIS MD Ot M10.9 GOUT, UNSPECIFIED 01/22/2018 MOISÉS LOUIS MD Ot Z79.899 OTHER CUSTODIAL (CURRENT) DRUG THERAPY 01/22/2018 MOISÉS LOUIS MD Ot Z80.0 FAMILY HISTORY OF MALIGNANT NEOPLASM OF 01/22/2018 MOISÉS LOUIS MD Ot Z80.3 FAMILY HISTORY OF MALIGNANT NEOPLASM OF 01/22/2018 MOISÉS LOUIS MD Ot Z98.1 ARTHRODESIS STATUS 01/22/2018 SURESH, AMANDA E RECOVERY COORDINATOR Ot G47.30 SLEEP APNEA, UNSPECIFIED 01/28/2018 SURESH, AMANDA E RECOVERY COORDINATOR Ot G47.30 SLEEP APNEA, UNSPECIFIED 01/28/2018 SURESH, AMANDA E RECOVERY COORDINATOR Ot G47.33 OBSTRUCTIVE SLEEP APNEA (ADULT) (PEDIATR 01/28/2018 SURESH, AMANDA E RECOVERY COORDINATOR Ot Z78.9 OTHER SPECIFIED HEALTH STATUS 01/28/2018 SURESH, AMANDA E RECOVERY COORDINATOR Ot G47.33 OBSTRUCTIVE SLEEP APNEA (ADULT) (PEDIATR 01/28/2018 SURESH, AMANDA E RECOVERY COORDINATOR Ot Z78.9 OTHER SPECIFIED HEALTH STATUS 02/01/2018 MOISÉS LOUIS MD Ot D12.3 BENIGN NEOPLASM OF TRANSVERSE COLON 02/01/2018 MOISÉS LOUIS MD Ot D12.4 BENIGN NEOPLASM OF DESCENDING COLON 02/01/2018 MOISÉS LOUIS MD Ot E11.9 TYPE 2 DIABETES MELLITUS WITHOUT COMPLIC 02/01/2018 MOISÉS LOUIS MD Ot E78.00 PURE HYPERCHOLESTEROLEMIA, UNSPECIFIED 02/01/2018 MOISÉS LOUIS MD Ot F17.220 NICOTINE DEPENDENCE, CHEWING TOBACCO, UN 02/01/2018 MOISÉS LOUIS MD, Ot G62.9 POLYNEUROPATHY, UNSPECIFIED 02/01/2018 MOISÉS LOUIS MD Ot I10 ESSENTIAL (PRIMARY) HYPERTENSION 02/01/2018 MOISÉS LOUIS MD, Ot M10.9 GOUT, UNSPECIFIED 02/01/2018 MOISÉS LOUIS MD, Ot Z79.899 OTHER CUSTODIAL (CURRENT) DRUG THERAPY 02/01/2018 MOISÉS LOUIS MD, Ot Z80.0 FAMILY HISTORY OF MALIGNANT NEOPLASM OF 02/01/2018 MOISÉS LOUIS MD, Ot Z80.3 FAMILY HISTORY OF MALIGNANT NEOPLASM OF 02/01/2018 MOISÉS LOUIS MD, Ot Z98.1 ARTHRODESIS STATUS 03/15/2018 AMANDA PRINCE APRN Ot G47.33 OBSTRUCTIVE SLEEP APNEA (ADULT) (PEDIATR 03/30/2018 [facility] LUCI STEPHENSON Ot 786.50 CHEST PAIN NOS 03/30/2018 [facility] STEPHENSON Ot 959.3 ELB/FOREARM/WRST INJ NOS 03/30/2018 [facility] LUCI STEPHENSON Ot E000.8 OTHER EXTERNAL CAUSE STATUS 03/30/2018 [facility] LUCI STEPHENSON Ot E888.9 FALL NOS 03/30/2018 [facility] LUCI STEPHENSON Ot 959.7 LOWER LEG INJURY NOS 03/30/2018 [facility] STEPHEN[facility] Ot E928.9 ACCIDENT NOS 03/30/2018 NATALYA LYNCH, HILDA Alcaraz Ot 250.40 DIAB W RENAL MANIFEST, TYPE II OR UNSPEC 03/30/2018 HILDA HOANG MD Ot 272.4 HYPERLIPIDEMIA NEC/NOS 03/30/2018 NATALYA LYNCH, HILDA Alcaraz Ot 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, BENIGN, W CHR KD ST 03/30/2018 NATALYA LYNCH, HILDA Alcaraz Ot 581.9 NEPHROTIC SYNDROME NOS 03/30/2018 HILDA HOANG MD Ot 583.81 NEPHRITIS NOS IN OTH DIS 03/30/2018 HILDA HOANG MD Ot 585.2 CHRONIC KIDNEY DISEASE, STAGE II (MILD) 03/30/2018 LIDIA DIEHL DO Ot 553.20 VENTRAL HERNIA NOS 03/30/2018 LIDIA DIEHL DO Ot V72.63 PRE-PROCEDURAL LABORATORY EXAMINATION 03/30/2018 LIDIA DIEHL DO, Ot V74.8 SCREEN-BACTERIAL DIS NEC 03/30/2018 LIDIA DIEHL DO Ot 787.3 FLATUL/ERUCTAT/GAS PAIN 03/30/2018 LIDIA DIEHL DO, Ot V16.0 FAMILY HX-GI MALIGNANCY 03/30/2018 LIDIA DIEHL DO, Ot V72.84 EXAM PRE-OPERATIVE NOS 03/30/2018 LIDIA DIEHL DO Ot 585.2 CHRONIC KIDNEY DISEASE, STAGE II (MILD) 03/30/2018 LIDIA DIEHL DO, Ot V72.63 PRE-PROCEDURAL LABORATORY EXAMINATION 03/30/2018 LIDIA DIEHL DO, Ot V74.8 SCREEN-BACTERIAL DIS NEC 03/30/2018 LIDIA DIEHL DO, Ot K25.9 GASTRIC ULCER, UNSP ACUTE OR CHRONIC, 03/30/2018 LIDIA DIEHL DO, Ot Z01.818 ENCOUNTER FOR OTHER PREPROCEDURAL EXAMIN 03/30/2018 LIDIA DIEHL DO, Ot K25.9 GASTRIC ULCER, UNSP ACUTE OR CHRONIC, 03/30/2018 LIDIA DIEHL DO, Ot Z01.818 ENCOUNTER FOR OTHER PREPROCEDURAL EXAMIN 03/30/2018 LIDIA DIEHL DO Ot R10.32 LEFT LOWER QUADRANT PAIN 03/30/2018 LIDIA DIEHL DO Ot R10.9 UNSPECIFIED ABDOMINAL PAIN 03/30/2018 LUCI SPARKS DO Ot K57.90 DVRTCLOS OF INTEST, PART UNSP, W/O PERF 03/30/2018 LUCI SPARKS DO Ot N20.0 CALCULUS OF KIDNEY 03/30/2018 IRINEO GONSALEZ DO Ot R05 COUGH 03/30/2018 IRINEO GONSALEZ DO Ot E04.1 NONTOXIC SINGLE THYROID NODULE 03/30/2018 IRINEO GONSALEZ DO Ot I25.10 ATHSCL HEART DISEASE OF [place] CORONARY 03/30/2018 IRINEO GONSALEZ DO Ot J15.20 PNEUMONIA DUE TO STAPHYLOCOCCUS, UNSPECI 03/30/2018 IRINEO GONSALEZ DO Ot K76.0 FATTY (CHANGE OF) LIVER, NOT ELSEWHERE C 03/30/2018 IRINEO GONSALEZ DO Ot E04.2 NONTOXIC MULTINODULAR GOITER 03/30/2018 BIANCA CARR DO Ot G25.61 DRUG INDUCED TICS 03/30/2018 BIANCA CARR DO Ot G47.33 OBSTRUCTIVE SLEEP APNEA (ADULT) (PEDIATR 03/30/2018 BIANCA CARR DO Ot J18.9 PNEUMONIA, UNSPECIFIED ORGANISM 03/30/2018 BIANCA CARR DO Ot K21.9 GASTRO-ESOPHAGEAL REFLUX DISEASE WITHOUT 03/30/2018 BIANCA CARR DO Ot R06.00 DYSPNEA, UNSPECIFIED 03/30/2018 BIANCA CARR DO Ot R91.8 OTHER NONSPECIFIC ABNORMAL FINDING OF [place] 03/30/2018 BIANCA CARR DO Ot 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 03/30/2018 AMANDA PRINCE APRN Ot G25.81 RESTLESS LEGS SYNDROME 03/30/2018 AMANDA PRINCE APRN Ot J18.9 PNEUMONIA, UNSPECIFIED ORGANISM 03/30/2018 AMANDA PRINCE APRN Ot J98.11 ATELECTASIS 03/30/2018 AMANDA PRINCE APRN Ot K21.9 GASTRO-ESOPHAGEAL REFLUX DISEASE WITHOUT 03/30/2018 AMANDA PRINCE APRN Ot R91.8 OTHER NONSPECIFIC ABNORMAL FINDING OF [place] 03/30/2018 MELODY LYNCH, BERNIE Reed Ot E04.2 NONTOXIC MULTINODULAR GOITER 03/30/2018 AMANDA PRINCE APRN Ot J18.9 PNEUMONIA, UNSPECIFIED ORGANISM 03/30/2018 AMANDA PRINCE APRN Ot R91.8 OTHER NONSPECIFIC ABNORMAL FINDING OF [place] 03/30/2018 YOLI MALONE [facility] Ot S99.921A UNSPECIFIED INJURY OF RIGHT FOOT, INITIA 03/30/2018 AMANDA PRINCE APRN Ot G47.33 OBSTRUCTIVE SLEEP APNEA (ADULT) (PEDIATR 04/01/2018 MELODY LYNCH, BERNIE Reed Ot E04.2 NONTOXIC MULTINODULAR GOITER Procedures Code Description Performed By Performed On 54.51 LAPAROSCOP LYSIS-PERITONEAL ADHES 01/16/2015 54.59 OTH LYSIS-PERITONEAL ADHES 01/16/2015 Results Test Result Range [id number] - 04/03/16 15:27 Serum or plasma urea nitrogen measurement (mass/volume) 19 mg/dL 7-18 Serum or plasma creatinine measurement (mass/volume) 1.36 mg/dL 0.60-1.30 Serum or plasma urea nitrogen/creatinine mass ratio 14 NRG Serum or plasma creatinine measurement with calculation of estimated glomerular filtration rate 55 NRG Complete blood count (CBC) with automated white blood cell (WBC) differential - 07/15/17 15:00 Blood leukocytes automated count (number/volume) 19.9 10*3/uL 4.3-11.0 Blood erythrocytes automated count (number/volume) 4.73 10*6/uL 4.35-5.85 Venous blood hemoglobin measurement (mass/volume) 15.7 g/dL 13.3-17.7 Blood hematocrit (volume fraction) 44 % 40-54 Automated erythrocyte mean corpuscular volume 92 [foz_us] 80-99 Automated erythrocyte mean corpuscular hemoglobin (mass per erythrocyte) 33 pg 25-34 Automated erythrocyte mean corpuscular hemoglobin concentration measurement ( mass/volume) 36 g/dL 32-36 Automated erythrocyte distribution width ratio 12.3 % 10.0-14.5 Automated blood platelet count (count/volume) 192 10*3/uL 130-400 Automated blood platelet mean volume measurement 11.3 [foz_us] 7.4-10.4 Automated blood neutrophils/100 leukocytes 78 % 42-75 Automated blood lymphocytes/100 leukocytes 12 % 12-44 Blood monocytes/100 leukocytes 9 % 0-12 Automated blood eosinophils/100 leukocytes 1 % 0-10 Automated blood basophils/100 leukocytes 0 % 0-10 Blood neutrophils automated count (number/volume) 15.6 10*3 1.8-7.8 Blood lymphocytes automated count (number/volume) 2.3 10*3 1.0-4.0 Blood monocytes automated count (number/volume) 1.8 10*3 0.0-1.0 Automated eosinophil count 0.1 10*3/uL 0.0-0.3 Automated blood basophil count (count/volume) 0.1 10*3/uL 0.0-0.1 Blood manual differential performed detection - 07/15/17 15:00 Blood monocytes/100 leukocytes 4 % NRG Manual blood segmented neutrophils/100 leukocytes 80 % NRG Blood band neutrophils/100 leukocytes 2 % NRG Manual blood lymphocytes/100 leukocytes 13 % NRG Manual eosinophils/100 leukocytes in nose 1 % NRG Manual blood basophils/100 leukocytes 0 % NR Blood erythrocyte morphology finding identification NORMAL [facility] Whole blood basic metabolic panel - 07/15/17 15:00 Serum or plasma sodium measurement (moles/volume) 135 mmol/L 135-145 Serum or plasma potassium measurement (moles/volume) 4.3 mmol/L 3.6-5.0 Serum or plasma chloride measurement (moles/volume) 98 mmol/L 98-107 Carbon dioxide 21 mmol/L 21-32 Serum or plasma anion gap determination (moles/volume) 16 mmol/L 5-14 Serum or plasma urea nitrogen measurement (mass/volume) 25 mg/dL 7-18 Serum or plasma creatinine measurement (mass/volume) 1.33 mg/dL 0.60-1.30 Serum or plasma urea nitrogen/creatinine mass ratio 19 NRG Serum or plasma creatinine measurement with calculation of estimated glomerular filtration rate 56 NRG Serum or plasma glucose measurement (mass/volume) 420 mg/dL 70-105 Serum or plasma calcium measurement (mass/volume) 10.0 mg/dL 8.5-10.1 Blood lactic acid measurement (moles/volume) - 07/15/17 15:55 Blood lactic acid measurement (moles/volume) 2.08 mmol/L 0.50-2.00 Bacterial blood culture - 07/15/17 15:55 Bacterial blood culture NG NRG Bacterial blood culture - 07/15/17 16:35 Bacterial blood culture NG NR Capillary blood glucose measurement by glucometer (mass/volume) - 07/15/17 17: 12 Capillary blood glucose measurement by glucometer (mass/volume) 273 mg/dL 70-110 Bacterial blood culture - 07/15/17 17:51 Bacterial blood culture NG NRG Serum or plasma lactate measurement (moles/volume) - 07/15/17 18:02 Serum or plasma lactate measurement (moles/volume) 1.38 mmol/L 0.50-2.00 Bacterial blood culture - 07/15/17 18:02 Bacterial blood culture NG NR Blood lactic acid measurement (moles/volume) - 07/15/17 20:05 Blood lactic acid measurement (moles/volume) 2.46 mmol/L 0.50-2.00 Capillary blood glucose measurement by glucometer (mass/volume) - 07/15/17 21: 51 Capillary blood glucose measurement by glucometer (mass/volume) 346 mg/dL 70-110 Serum or plasma lactate measurement (moles/volume) - 07/15/17 23:05 Serum or plasma lactate measurement (moles/volume) 1.89 mmol/L 0.50-2.00 Complete blood count (CBC) with automated white blood cell (WBC) differential - 07/16/17 05:25 Blood leukocytes automated count (number/volume) 15.2 10*3/uL 4.3-11.0 Blood erythrocytes automated count (number/volume) 4.24 10*6/uL 4.35-5.85 Venous blood hemoglobin measurement (mass/volume) 14.0 g/dL 13.3-17.7 Blood hematocrit (volume fraction) 40 % 40-54 Automated erythrocyte mean corpuscular volume 95 [foz_us] 80-99 Automated erythrocyte mean corpuscular hemoglobin (mass per erythrocyte) 33 pg 25-34 Automated erythrocyte mean corpuscular hemoglobin concentration measurement ( mass/volume) 35 g/dL 32-36 Automated erythrocyte distribution width ratio 12.1 % 10.0-14.5 Automated blood platelet count (count/volume) 180 10*3/uL 130-400 Automated blood platelet mean volume measurement 11.1 [foz_us] 7.4-10.4 Automated blood neutrophils/100 leukocytes 80 % 42-75 Automated blood lymphocytes/100 leukocytes 9 % 12-44 Blood monocytes/100 leukocytes 9 % 0-12 Automated blood eosinophils/100 leukocytes 1 % 0-10 Automated blood basophils/100 leukocytes 0 % 0-10 Blood neutrophils automated count (number/volume) 12.2 10*3 1.8-7.8 Blood lymphocytes automated count (number/volume) 1.4 10*3 1.0-4.0 Blood monocytes automated count (number/volume) 1.4 10*3 0.0-1.0 Automated eosinophil count 0.2 10*3/uL 0.0-0.3 Automated blood basophil count (count/volume) 0.0 10*3/uL 0.0-0.1 Whole blood basic metabolic panel - 07/16/17 05:25 Serum or plasma sodium measurement (moles/volume) 139 mmol/L 135-145 Serum or plasma potassium measurement (moles/volume) 4.0 mmol/L 3.6-5.0 Serum or plasma chloride measurement (moles/volume) 105 mmol/L 98-107 Carbon dioxide 21 mmol/L 21-32 Serum or plasma anion gap determination (moles/volume) 13 mmol/L 5-14 Serum or plasma urea nitrogen measurement (mass/volume) 16 mg/dL 7-18 Serum or plasma creatinine measurement (mass/volume) 1.01 mg/dL 0.60-1.30 Serum or plasma urea nitrogen/creatinine mass ratio 16 NRG Serum or plasma creatinine measurement with calculation of estimated glomerular filtration rate > NRG Serum or plasma glucose measurement (mass/volume) 291 mg/dL 70-105 Serum or plasma calcium measurement (mass/volume) 8.7 mg/dL 8.5-10.1 Capillary blood glucose measurement by glucometer (mass/volume) - 07/16/17 06: 10 Capillary blood glucose measurement by glucometer (mass/volume) 292 mg/dL 70-110 Capillary blood glucose measurement by glucometer (mass/volume) - 07/16/17 10: 38 Capillary blood glucose measurement by glucometer (mass/volume) 265 mg/dL 70-110 Capillary blood glucose measurement by glucometer (mass/volume) - 07/16/17 16: 13 Capillary blood glucose measurement by glucometer (mass/volume) 199 mg/dL 70-110 Sputum Gram stain - 07/16/17 20:30 GRAM STAIN SPUTUM AND MIXED BACTERIAL UMAIR NR Bacterial sputum culture - 07/16/17 20:30 FREE TEXT EXTERNAL PLUS SCANT PRESUMPTIVE VINCE ALBICANS NRG QUANTITY OF GROWTH Abundant Growth NR MRSA AGAR Screening test for MRSA is NEGATIVE (Final to follow) [facility] Bacterial sputum culture [id number] [facility] Bacterial susceptibility panel - 07/16/17 20:30 Oxacillin susceptibility test by minimum inhibitory concentration < = NRG Gentamicin susceptibility test by minimum inhibitory concentration < = NRG Clindamycin susceptibility test by minimum inhibitory concentration <= NRG Erythromycin susceptibility test by minimum inhibitory concentration >= NRG Trimethoprim/sulfamethoxazole susceptibility test by minimum inhibitoryconcentration S NRG Vancomycin susceptibility test by minimum inhibitory concentration 1 NRG Levofloxacin susceptibility test by minimum inhibitory concentration <= NRG Rifampin susceptibility test by minimum inhibitory concentration <= NRG Tetracycline susceptibility test by minimum inhibitory concentration <= NRG Capillary blood glucose measurement by glucometer (mass/volume) - 07/16/17 21: 04 Capillary blood glucose measurement by glucometer (mass/volume) 194 mg/dL 70-110 Automated blood complete blood count (hemogram) panel - 07/17/17 05:15 Blood leukocytes automated count (number/volume) 14.9 10*3/uL 4.3-11.0 Blood erythrocytes automated count (number/volume) 4.33 10*6/uL 4.35-5.85 Venous blood hemoglobin measurement (mass/volume) 14.1 g/dL 13.3-17.7 Blood hematocrit (volume fraction) 41 % 40-54 Automated erythrocyte mean corpuscular volume 95 [foz_us] 80-99 Automated erythrocyte mean corpuscular hemoglobin (mass per erythrocyte) 33 pg 25-34 Automated erythrocyte mean corpuscular hemoglobin concentration measurement ( mass/volume) 34 g/dL 32-36 Automated erythrocyte distribution width ratio 12.2 % 10.0-14.5 Automated blood platelet count (count/volume) 192 10*3/uL 130-400 Automated blood platelet mean volume measurement 11.1 [foz_us] 7.4-10.4 Whole blood basic metabolic panel - 07/17/17 05:15 Serum or plasma sodium measurement (moles/volume) 141 mmol/L 135-145 Serum or plasma potassium measurement (moles/volume) 3.9 mmol/L 3.6-5.0 Serum or plasma chloride measurement (moles/volume) 106 mmol/L 98-107 Carbon dioxide 25 mmol/L 21-32 Serum or plasma anion gap determination (moles/volume) 10 mmol/L 5-14 Serum or plasma urea nitrogen measurement (mass/volume) 12 mg/dL 7-18 Serum or plasma creatinine measurement (mass/volume) 1.02 mg/dL 0.60-1.30 Serum or plasma urea nitrogen/creatinine mass ratio 12 NRG Serum or plasma creatinine measurement with calculation of estimated glomerular filtration rate > NRG Serum or plasma glucose measurement (mass/volume) 199 mg/dL 70-105 Serum or plasma calcium measurement (mass/volume) 9.6 mg/dL 8.5-10.1 Capillary blood glucose measurement by glucometer (mass/volume) - 07/17/17 05: 53 Capillary blood glucose measurement by glucometer (mass/volume) 220 mg/dL 70-110 Capillary blood glucose measurement by glucometer (mass/volume) - 07/17/17 10: 51 Capillary blood glucose measurement by glucometer (mass/volume) 211 mg/dL 70-110 Capillary blood glucose measurement by glucometer (mass/volume) - 07/17/17 15: 51 Capillary blood glucose measurement by glucometer (mass/volume) 127 mg/dL 70-110 Capillary blood glucose measurement by glucometer (mass/volume) - 07/17/17 21: 56 Capillary blood glucose measurement by glucometer (mass/volume) 140 mg/dL 70-110 Capillary blood glucose measurement by glucometer (mass/volume) - 07/18/17 05: 25 Capillary blood glucose measurement by glucometer (mass/volume) 152 mg/dL 70-110 Whole blood basic metabolic panel - 07/18/17 06:00 Serum or plasma sodium measurement (moles/volume) 140 mmol/L 135-145 Serum or plasma potassium measurement (moles/volume) 4.0 mmol/L 3.6-5.0 Serum or plasma chloride measurement (moles/volume) 106 mmol/L 98-107 Carbon dioxide 22 mmol/L 21-32 Serum or plasma anion gap determination (moles/volume) 12 mmol/L 5-14 Serum or plasma urea nitrogen measurement (mass/volume) 15 mg/dL 7-18 Serum or plasma creatinine measurement (mass/volume) 0.97 mg/dL 0.60-1.30 Serum or plasma urea nitrogen/creatinine mass ratio 15 NRG Serum or plasma creatinine measurement with calculation of estimated glomerular filtration rate > NRG Serum or plasma glucose measurement (mass/volume) 166 mg/dL 70-105 Serum or plasma calcium measurement (mass/volume) 9.4 mg/dL 8.5-10.1 Automated blood complete blood count (hemogram) panel - 07/18/17 06:10 Blood leukocytes automated count (number/volume) 13.9 10*3/uL 4.3-11.0 Blood erythrocytes automated count (number/volume) 4.30 10*6/uL 4.35-5.85 Venous blood hemoglobin measurement (mass/volume) 14.1 g/dL 13.3-17.7 Blood hematocrit (volume fraction) 40 % 40-54 Automated erythrocyte mean corpuscular volume 93 [foz_us] 80-99 Automated erythrocyte mean corpuscular hemoglobin (mass per erythrocyte) 33 pg 25-34 Automated erythrocyte mean corpuscular hemoglobin concentration measurement ( mass/volume) 35 g/dL 32-36 Automated erythrocyte distribution width ratio 12.1 % 10.0-14.5 Automated blood platelet count (count/volume) 210 10*3/uL 130-400 Automated blood platelet mean volume measurement 10.0 [[facility]] 7.4-10.4 Capillary blood glucose measurement by glucometer (mass/volume) - 07/18/17 10: 41 Capillary blood glucose measurement by glucometer (mass/volume) 198 mg/dL 70-110 Capillary blood glucose measurement by glucometer (mass/volume) - 07/18/17 15: 55 Capillary blood glucose measurement by glucometer (mass/volume) 157 mg/dL 70-110 Capillary blood glucose measurement by glucometer (mass/volume) - 07/18/17 20: 47 Capillary blood glucose measurement by glucometer (mass/volume) 293 mg/dL 70-110 Complete blood count (CBC) with automated white blood cell (WBC) differential - 07/19/17 05:15 Blood leukocytes automated count (number/volume) 14.6 10*3/uL 4.3-11.0 Blood erythrocytes automated count (number/volume) 4.39 10*6/uL 4.35-5.85 Venous blood hemoglobin measurement (mass/volume) 14.3 g/dL 13.3-17.7 Blood hematocrit (volume fraction) 40 % 40-54 Automated erythrocyte mean corpuscular volume 92 [foz_us] 80-99 Automated erythrocyte mean corpuscular hemoglobin (mass per erythrocyte) 33 pg 25-34 Automated erythrocyte mean corpuscular hemoglobin concentration measurement ( mass/volume) 36 g/dL 32-36 Automated erythrocyte distribution width ratio 11.8 % 10.0-14.5 Automated blood platelet count (count/volume) 238 10*3/uL 130-400 Automated blood platelet mean volume measurement 10.7 [foz_us] 7.4-10.4 Automated blood neutrophils/100 leukocytes 90 % 42-75 Automated blood lymphocytes/100 leukocytes 8 % 12-44 Blood monocytes/100 leukocytes 2 % 0-12 Automated blood eosinophils/100 leukocytes 0 % 0-10 Automated blood basophils/100 leukocytes 0 % 0-10 Blood neutrophils automated count (number/volume) 13.1 10*3 1.8-7.8 Blood lymphocytes automated count (number/volume) 1.2 10*3 1.0-4.0 Blood monocytes automated count (number/volume) 0.3 10*3 0.0-1.0 Automated eosinophil count 0.0 10*3/uL 0.0-0.3 Automated blood basophil count (count/volume) 0.0 10*3/uL 0.0-0.1 Comprehensive metabolic panel - 07/19/17 05:15 Serum or plasma sodium measurement (moles/volume) 137 mmol/L 135-145 Serum or plasma potassium measurement (moles/volume) 4.2 mmol/L 3.6-5.0 Serum or plasma chloride measurement (moles/volume) 103 mmol/L 98-107 Carbon dioxide 22 mmol/L 21-32 Serum or plasma anion gap determination (moles/volume) 12 mmol/L 5-14 Serum or plasma urea nitrogen measurement (mass/volume) 24 mg/dL 7-18 Serum or plasma creatinine measurement (mass/volume) 1.06 mg/dL 0.60-1.30 Serum or plasma urea nitrogen/creatinine mass ratio 23 NRG Serum or plasma creatinine measurement with calculation of estimated glomerular filtration rate > NRG Serum or plasma glucose measurement (mass/volume) 311 mg/dL 70-105 Serum or plasma calcium measurement (mass/volume) 9.6 mg/dL 8.5-10.1 Serum or plasma total bilirubin measurement (mass/volume) 0.4 mg/dL 0.1-1.0 Serum or plasma alkaline phosphatase measurement (enzymatic activity/volume) 73 U/L 40-136 Serum or plasma aspartate aminotransferase measurement (enzymatic activity/ volume) 33 U/L 5-34 Serum or plasma alanine aminotransferase measurement (enzymatic activity/volume ) 51 U/L 0-55 Serum or plasma protein measurement (mass/volume) 7.6 g/dL 6.4-8.2 Serum or plasma albumin measurement (mass/volume) 3.3 g/dL 3.2-4.5 Capillary blood glucose measurement by glucometer (mass/volume) - 07/19/17 05: 26 Capillary blood glucose measurement by glucometer (mass/volume) 290 mg/dL 70-110 Capillary blood glucose measurement by glucometer (mass/volume) - 07/19/17 10: 45 Capillary blood glucose measurement by glucometer (mass/volume) 317 mg/dL 70-110 Capillary blood glucose measurement by glucometer (mass/volume) - 07/19/17 16: 03 Capillary blood glucose measurement by glucometer (mass/volume) 267 mg/dL 70-110 Capillary blood glucose measurement by glucometer (mass/volume) - 07/19/17 20: 55 Capillary blood glucose measurement by glucometer (mass/volume) 273 mg/dL 70-110 Complete blood count (CBC) with automated white blood cell (WBC) differential - 07/20/17 05:25 Blood leukocytes automated count (number/volume) 21.9 10*3/uL 4.3-11.0 Blood erythrocytes automated count (number/volume) 4.18 10*6/uL 4.35-5.85 Venous blood hemoglobin measurement (mass/volume) 13.6 g/dL 13.3-17.7 Blood hematocrit (volume fraction) 39 % 40-54 Automated erythrocyte mean corpuscular volume 92 [foz_us] 80-99 Automated erythrocyte mean corpuscular hemoglobin (mass per erythrocyte) 33 pg 25-34 Automated erythrocyte mean corpuscular hemoglobin concentration measurement ( mass/volume) 35 g/dL 32-36 Automated erythrocyte distribution width ratio 11.9 % 10.0-14.5 Automated blood platelet count (count/volume) 240 10*3/uL 130-400 Automated blood platelet mean volume measurement 10.8 [foz_us] 7.4-10.4 Automated blood neutrophils/100 leukocytes 91 % 42-75 Automated blood lymphocytes/100 leukocytes 5 % 12-44 Blood monocytes/100 leukocytes 3 % 0-12 Automated blood eosinophils/100 leukocytes 0 % 0-10 Automated blood basophils/100 leukocytes 0 % 0-10 Blood neutrophils automated count (number/volume) 20.0 10*3 1.8-7.8 Blood lymphocytes automated count (number/volume) 1.2 10*3 1.0-4.0 Blood monocytes automated count (number/volume) 0.7 10*3 0.0-1.0 Automated eosinophil count 0.0 10*3/uL 0.0-0.3 Automated blood basophil count (count/volume) 0.0 10*3/uL 0.0-0.1 Comprehensive metabolic panel - 07/20/17 05:25 Serum or plasma sodium measurement (moles/volume) 137 mmol/L 135-145 Serum or plasma potassium measurement (moles/volume) 4.6 mmol/L 3.6-5.0 Serum or plasma chloride measurement (moles/volume) 104 mmol/L 98-107 Carbon dioxide 18 mmol/L 21-32 Serum or plasma anion gap determination (moles/volume) 15 mmol/L 5-14 Serum or plasma urea nitrogen measurement (mass/volume) 31 mg/dL 7-18 Serum or plasma creatinine measurement (mass/volume) 1.05 mg/dL 0.60-1.30 Serum or plasma urea nitrogen/creatinine mass ratio 30 NRG Serum or plasma creatinine measurement with calculation of estimated glomerular filtration rate > NRG Serum or plasma glucose measurement (mass/volume) 321 mg/dL 70-105 Serum or plasma calcium measurement (mass/volume) 9.5 mg/dL 8.5-10.1 Serum or plasma total bilirubin measurement (mass/volume) 0.4 mg/dL 0.1-1.0 Serum or plasma alkaline phosphatase measurement (enzymatic activity/volume) 67 U/L 40-136 Serum or plasma aspartate aminotransferase measurement (enzymatic activity/ volume) 51 U/L 5-34 Serum or plasma alanine aminotransferase measurement (enzymatic activity/volume ) 69 U/L 0-55 Serum or plasma protein measurement (mass/volume) 7.5 g/dL 6.4-8.2 Serum or plasma albumin measurement (mass/volume) 3.3 g/dL 3.2-4.5 Capillary blood glucose measurement by glucometer (mass/volume) - 07/20/17 05: 27 Capillary blood glucose measurement by glucometer (mass/volume) 299 mg/dL 70-110 Capillary blood glucose measurement by glucometer (mass/volume) - 07/20/17 10: 36 Capillary blood glucose measurement by glucometer (mass/volume) 314 mg/dL 70-110 Capillary blood glucose measurement by glucometer (mass/volume) - 07/20/17 16: 06 Capillary blood glucose measurement by glucometer (mass/volume) 283 mg/dL 70-110 Sputum Gram stain - 08/19/17 08:00 GRAM STAIN SPUTUM RARE GRAM POSITIVE COCCI NRG Bacteria identification in bronchial specimen by aerobe culture - 08/19/17 08: 00 QUANTITY OF GROWTH Moderate Growth NRG MRSA AGAR Screening test for MRSA is NEGATIVE (Final to follow) NRG Bacteria identification in bronchial specimen by aerobe culture [id number] NRG FTX;REPORTABLE FEW OBSERVED, SENSITIVITY REPORTED 3-29 NRG Mycobacterium species detection by organism specific culture - 08/19/17 08:00 Mycobacterium species detection by organism specific culture 4 weeks required for a preliminary negative culture report. NRG Bacterial susceptibility panel - 08/19/17 08:00 Oxacillin susceptibility test by minimum inhibitory concentration < = NRG Gentamicin susceptibility test by minimum inhibitory concentration < = NRG Clindamycin susceptibility test by minimum inhibitory concentration <= NRG Erythromycin susceptibility test by minimum inhibitory concentration >= NRG Trimethoprim/sulfamethoxazole susceptibility test by minimum inhibitoryconcentration S NRG Vancomycin susceptibility test by minimum inhibitory concentration < = NRG Levofloxacin susceptibility test by minimum inhibitory concentration <= NRG Rifampin susceptibility test by minimum inhibitory concentration <= NRG Tetracycline susceptibility test by minimum inhibitory concentration <= NRG Fungus culture - 08/19/17 08:00 Fungus culture NG NRG Fungus culture - 08/19/17 08:00 Fungus culture NG NRG Complete blood count (CBC) with automated white blood cell (WBC) differential - 08/20/17 15:41 Blood leukocytes automated count (number/volume) 12.8 10*3/uL 4.3-11.0 Blood erythrocytes automated count (number/volume) 4.77 10*6/uL 4.35-5.85 Venous blood hemoglobin measurement (mass/volume) 15.5 g/dL 13.3-17.7 Blood hematocrit (volume fraction) 43 % 40-54 Automated erythrocyte mean corpuscular volume 91 [foz_us] 80-99 Automated erythrocyte mean corpuscular hemoglobin (mass per erythrocyte) 33 pg 25-34 Automated erythrocyte mean corpuscular hemoglobin concentration measurement ( mass/volume) 36 g/dL 32-36 Automated erythrocyte distribution width ratio 13.5 % 10.0-14.5 Automated blood platelet count (count/volume) 163 10*3/uL 130-400 Automated blood platelet mean volume measurement 11.2 [foz_us] 7.4-10.4 Automated blood neutrophils/100 leukocytes 70 % 42-75 Automated blood lymphocytes/100 leukocytes 17 % 12-44 Blood monocytes/100 leukocytes 10 % 0-12 Automated blood eosinophils/100 leukocytes 2 % 0-10 Automated blood basophils/100 leukocytes 1 % 0-10 Blood neutrophils automated count (number/volume) 8.9 10*3 1.8-7.8 Blood lymphocytes automated count (number/volume) 2.2 10*3 1.0-4.0 Blood monocytes automated count (number/volume) 1.3 10*3 0.0-1.0 Automated eosinophil count 0.3 10*3/uL 0.0-0.3 Automated blood basophil count (count/volume) 0.1 10*3/uL 0.0-0.1 Complete blood count (CBC) with automated white blood cell (WBC) differential - 09/22/17 09:08 Blood leukocytes automated count (number/volume) 9.1 10*3/uL 4.3-11.0 Blood erythrocytes automated count (number/volume) 5.11 10*6/uL 4.35-5.85 Venous blood hemoglobin measurement (mass/volume) 16.7 g/dL 13.3-17.7 Blood hematocrit (volume fraction) 47 % 40-54 Automated erythrocyte mean corpuscular volume 93 [foz_us] 80-99 Automated erythrocyte mean corpuscular hemoglobin (mass per erythrocyte) 33 pg 25-34 Automated erythrocyte mean corpuscular hemoglobin concentration measurement ( mass/volume) 35 g/dL 32-36 Automated erythrocyte distribution width ratio 13.3 % 10.0-14.5 Automated blood platelet count (count/volume) 186 10*3/uL 130-400 Automated blood platelet mean volume measurement 11.1 [foz_us] 7.4-10.4 Automated blood neutrophils/100 leukocytes 66 % 42-75 Automated blood lymphocytes/100 leukocytes 22 % 12-44 Blood monocytes/100 leukocytes 9 % 0-12 Automated blood eosinophils/100 leukocytes 3 % 0-10 Automated blood basophils/100 leukocytes 1 % 0-10 Blood neutrophils automated count (number/volume) 6.0 10*3 1.8-7.8 Blood lymphocytes automated count (number/volume) 2.0 10*3 1.0-4.0 Blood monocytes automated count (number/volume) 0.8 10*3 0.0-1.0 Automated eosinophil count 0.2 10*3/uL 0.0-0.3 Automated blood basophil count (count/volume) 0.1 10*3/uL 0.0-0.1 Comprehensive metabolic panel - 09/22/17 09:08 Serum or plasma sodium measurement (moles/volume) 139 mmol/L 135-145 Serum or plasma potassium measurement (moles/volume) 4.4 mmol/L 3.6-5.0 Serum or plasma chloride measurement (moles/volume) 107 mmol/L 98-107 Carbon dioxide 21 mmol/L 21-32 Serum or plasma anion gap determination (moles/volume) 11 mmol/L 5-14 Serum or plasma urea nitrogen measurement (mass/volume) 24 mg/dL 7-18 Serum or plasma creatinine measurement (mass/volume) 1.10 mg/dL 0.60-1.30 Serum or plasma urea nitrogen/creatinine mass ratio 22 NRG Serum or plasma creatinine measurement with calculation of estimated glomerular filtration rate > NRG Serum or plasma glucose measurement (mass/volume) 217 mg/dL 70-105 Serum or plasma calcium measurement (mass/volume) 9.6 mg/dL 8.5-10.1 Serum or plasma total bilirubin measurement (mass/volume) 0.8 mg/dL 0.1-1.0 Serum or plasma alkaline phosphatase measurement (enzymatic activity/volume) 62 U/L 40-136 Serum or plasma aspartate aminotransferase measurement (enzymatic activity/ volume) 21 U/L 5-34 Serum or plasma alanine aminotransferase measurement (enzymatic activity/volume ) 44 U/L 0-55 Serum or plasma protein measurement (mass/volume) 7.2 g/dL 6.4-8.2 Serum or plasma albumin measurement (mass/volume) 4.3 g/dL 3.2-4.5 Complete urinalysis with reflex to culture - 09/22/17 09:10 Urine color determination YELLOW NRG Urine clarity determination CLEAR NRG Urine pH measurement by test strip 5 5-9 Specific gravity of urine by test strip 1.025 1.016- 1.022 Urine protein assay by test strip, semi-quantitative 3+ NEGATIVE Urine glucose detection by automated test strip 4+ NEGATIVE Erythrocytes detection in urine sediment by light microscopy NEGATIVE NEGATIVE Urine ketones detection by automated test strip NEGATIVE NEGATIVE Urine nitrite detection by test strip NEGATIVE NEGATIVE Urine total bilirubin detection by test strip NEGATIVE NEGATIVE Urine urobilinogen measurement by automated test strip (mass/volume) NORMAL NORMAL Urine leukocyte esterase detection by dipstick NEGATIVE NEGATIVE Automated urine sediment erythrocyte count by microscopy (number/high power field) NONE NRG Automated urine sediment leukocyte count by microscopy (number/high power field ) [HPF] NRG Bacteria detection in urine sediment by light microscopy NEGATIVE NRG Squamous epithelial cells detection in urine sediment by light microscopy RARE NRG Crystals detection in urine sediment by light microscopy NONE NRG Casts detection in urine sediment by light microscopy NONE NRG Mucus detection in urine sediment by light microscopy NEGATIVE NRG Complete urinalysis with reflex to culture NO NRG Encounters ACCT No. Visit Date/Time Discharge Status Pt. Type Provider Facility Loc./Unit Complaint [id number] 03/01/2018 14:34:00 03/01/2018 23:59:59 CLS Preadmit AMANDA PRINCE APRN [facility] SLEEP SLEEP APNEA, NOCTURNAL HYPOXEMIA [id number] 01/27/2018 21:00:00 01/28/2018 06:30:00 DIS Outpatient AMANDA PRINCE APRN [facility] SLEEP CPAP VENTILATION TREATMENT NOT TOLERATED [id number] 01/20/2018 10:18:00 01/20/2018 13:25:00 DIS Outpatient MOISÉS LOUIS MD [facility] ENDO HX POLYPS [id number] 01/13/2018 05:39:00 01/13/2018 23:59:59 CLS Outpatient MOISÉS LOUIS MD [facility] PREOP COLONOSCOPY [id number] 10/08/2017 10:28:00 10/08/2017 23:59:59 CLS Outpatient MELODY LYNCH, BERNIE Reed [facility] RAD BILATERAL THYROID NODULES [id number] 10/06/2017 12:41:00 10/06/2017 23:59:59 CLS Outpatient YOLI MALONE [facility] RAD M79.671 [id number] 09/22/2017 08:53:00 09/22/2017 10:47:00 DIS Emergency AMARILIS LYNCH, JORGE Dewey [facility] ER PAIN IN LOWER RIGHT BACK AND SIDE [id number] 09/16/2017 21:09:00 09/17/2017 06:45:00 DIS Outpatient AMANDA PRINCE APRN [facility] SLEEP G47.30 SLEEP APNEA [id number] 09/15/2017 08:48:00 09/15/2017 23:59:59 CLS Outpatient AMANDA PRINCE APRN [facility] RAD R91.8,J18.9 [id number] 08/20/2017 15:37:00 08/20/2017 23:59:59 CLS Outpatient AMANDA PRINCE APRN [facility] RAD J18.9,R91.8 [id number] 08/19/2017 06:51:00 08/19/2017 23:59:59 CLS Outpatient BIANCA CARR DO [facility] ENDO LUNG MASS/PNEUMONIA/ DYSPNEA [id number] 08/17/2017 14:00:00 08/17/2017 14:57:00 DIS Outpatient BIANCA CARR DO [facility] PREOP BRONCHOSCOPY [id number] 08/05/2017 15:26:00 08/05/2017 23:59:59 CLS Outpatient GONSALEZFORTUNATO STEPHENSON IRINEO [facility] RT COUGH [id number] 08/05/2017 08:45:00 08/05/2017 23:59:59 CLS Outpatient GONSALEZ DO IRINEO [facility] RAD THYROID NODULE E04.1 [id number] 07/28/2017 07:25:00 07/28/2017 23:59:59 CLS Outpatient GONSALEZFORTUNATO STEPHENSON IRINEO [facility] RAD J15.20 STAPHYLOCOCCAL PNEUMONIA [id number] 07/15/2017 15:58:00 07/20/2017 16:34:00 DIS Inpatient LUCI SPARKS DO [facility] 4TH RLL PNUEMONIA [id number] 02/13/2017 08:07:00 02/13/2017 11:02:00 DIS Outpatient TALITA ALLEN MD [facility] REHAB R SHOULDER RCT [id number] 06/05/2016 14:37:00 06/05/2016 23:59:59 CLS Outpatient LUCI SPARKS DO [facility] RAD PAIN IN RLQ, HX OF KIDNEY STONES [id number] 04/09/2016 11:15:00 04/09/2016 23:59:59 CLS Outpatient LIDIA DIEHL DO [facility] RAD ABD PAIN [id number] 04/03/2016 15:13:00 04/03/2016 23:59:59 CLS Outpatient LIDIA DIEHL DO [facility] LAB ABD PAIN PREP FOR CT [id number] 04/26/2015 07:44:00 04/26/2015 10:20:00 DIS Outpatient FAZAL DO, CHANDROUTIE [facility] SDC MULTIPLE ULCERS [id number] 04/24/2015 05:36:00 04/24/2015 23:59:59 CLS Outpatient FAZAL DO, CHANDROUTIE [facility] PREOP MULTIPLE ULCERS [id number] 04/05/2015 05:41:00 04/05/2015 23:59:59 CLS Outpatient FAZAL DO, CHANDROUTIE [facility] PREOP MULTIPLE ULCERS [id number] 01/27/2015 23:21:00 01/29/2015 14:50:00 DIS Inpatient FAZAL DO, CHANDROUTIE [facility] SURGICAL SMALL BOWEL OBSTRUCTION [id number] 01/17/2015 07:26:00 01/18/2015 16:20:00 DIS Inpatient FAZAL DO, CHANDROUTIE [facility] SURGICAL ABDOMINAL PAIN [id number] 01/09/2015 09:44:00 01/09/2015 23:59:59 CLS Outpatient FAZAL DO, CHANDROUTIE [facility] PREOP ABDOMINAL PAIN [id number] 12/26/2014 10:04:00 12/26/2014 13:10:00 DIS Out[facility]AL [facility]; FAMILY HX COLON CANCER [id number] 12/21/2014 06:35:00 12/21/2014 23:59:59 CLS Outpatient FAZAL DO, CHANDROUTIE [facility] PREOP ABNORMAL DISTORATION; FAMILY HX COLON CANCER [id number] 12/04/2014 02:17:00 12/08/2014 16:00:00 DIS Inpatient FAZAL DO, CHANDROUTIE [facility] SURGICAL SMALL BOWEL OBSTRUCTION [id number] 03/30/2014 08:54:00 03/31/2014 17:00:00 DIS Outpatient FAZAL DO, CHANDROUTIE [facility] VENTAL HERNIA [id number] 03/28/2014 11:12:00 03/28/2014 23:59:59 CLS Outpatient FAZAL DO, CHANDROUTIE [facility] PREOP VENTRAL HERNIA [id number] 01/09/2014 14:53:00 01/09/2014 23:59:59 CLS Outpatient NATALYA LYNCH, HILDA Alcaraz [facility] LAB KIDNEY LESIONS, HYPERLIPADEMA,CKD [id number] 12/28/2013 15:17:00 12/28/2013 23:59:59 CLS Outpatient LUCI SPARKS DO [facility] RAD DROPPED RAMP RT FOOT [id number] 05/28/2013 07:28:00 06/01/2013 13:19:00 DIS Inpatient LIDIA DIEHL DO [facility] SURGICAL SMALL BOWEL OBSTRUCTION [id number] 05/11/2013 11:18:00 05/11/2013 23:59:59 CLS Outpatient LUCI SPARKS DO [facility] RAD CELLULITTIS LT WRIST LAST 2 WEEKS [id number] 01/24/2013 09:47:00 01/24/2013 23:59:59 CLS Outpatient [id number] 10/28/2012 16:01:00 10/28/2012 23:59:59 CLS Outpatient LUCI SPARKS DO [facility] LAB CHEST PAINS [id number] 09/22/2012 01:30:00 09/24/2012 13:35:00 DIS Inpatient LUCI SPARKS DO [facility] 4TH INTRACTABLE RUQ ABD PAIN/CVA [id number] 04/02/2018 07:45:00 ACT Emergency TANIYA LYNCH, IVAN Erazo [facility] ER HERNIA [id number] 03/30/2018 09:25:00 ACT Outpatient MELODY LYNCH, BERNIE Reed [facility] RAD THYROID NODULE [id number] 03/06/2012 17:36:00 Document Registration [id number] 11/21/2011 11:11:00 Document Registration [id number] 11/13/2011 15:19:00 Document Registration [id number] 07/24/2011 17:11:00 Document Registration [id number] 05/30/2011 20:53:00 Document Registration [id number] 01/15/2011 11:32:00 Document Registration [id number] 12/14/2010 01:00:00 Document Registration [id number] 12/07/2010 14:00:00 Document Registration [id number] 04/24/2017 11:55:00 04/24/2017 23:59:59 [facility] Outpatient P[facility]REZ [facility]
--- NOTE | 2018-04-02 08:21 | ED Abdominal Pain ---
General Chief Complaint: Abdominal/GI Problems Stated Complaint: HERNIA Source of Information: Patient Exam Limitations: No Limitations History of Present Illness Date Seen by Provider: Apr 02, 2018 Time Seen by Provider: 08:16 Initial Comments The patient is a 52-year-old white male who presents to the emergency room with a chief complaint of periumbilical abdominal pain. He reports he is currently on disability and is 7 weeks post back surgery. He had previous abdominal laparoscopic surgery with first a gallbladder and then a hiatal hernia repair. About 4 years ago and subsequent to that he developed pain and a bulge at the umbilical area. He had laparoscopic repair of the umbilical hernia with the use of mesh. Subsequently he had problems again and had removal of the mesh and lysis of adhesions again done laparoscopically. Yesterday he again developed pain in this area. He reports it feels just as it did before with the mesh problem Timing/Duration: 12-24 Hours Severity/Quality: Mild, Moderate Location: Periumbilical Radiation: No Radiation Associated Symptoms: Back Pain (7 weeks postop back surgery) Allergies and Home Medications Allergies Coded Allergies: No Known Drug Allergies (Unverified , 01/13/18) Home Medications Albuterol Sulfate 1 Puff Puff, 2 PUFF IH Q4H, (Reported) 1 PUFF = 90 MCG Allopurinol 300 Mg Tablet, 300 MG PO DAILY, (Reported) Ascorbate Calcium 500 Mg Tablet, 500 MG PO BID, (Reported) Baclofen 10 Mg Tablet, 10 MG PO TID PRN for SPASMS, (Reported) Cetirizine HCl 10 Mg Tablet, 10 MG PO DAILY, (Reported) Cholecalciferol (Vitamin D3) 5,000 Unit Capsule, 5,000 UNIT PO DAILY, (Reported) Fexofenadine HCl 180 Mg Tablet, 180 MG PO DAILY, (Reported) Folic Acid/Multivit-Min/Lutein 1 Each Tab.chew, 2 TAB.CHEW PO DAILY, (Reported) Gabapentin 300 Mg Capsule, 300 MG PO DAILY, (Reported) Gabapentin 300 Mg Capsule, 1,500 MG PO HS, (Reported) TAKES 5 (300MG) CAPSULES Insulin Glargine,Hum.rec.anlog 300 Unit/1 Ml Insuln.pen, 66 UNIT SQ 1800, ( Reported) WITH EVENING MEAL Insulin Lispro 100 Unit/1 Ml Insuln.pen, 30 UNIT SQ AC, (Reported) Takes one additional unit for every 50 Mg/DL points above 150 Mg/DL Lisinopril 20 Mg Tablet, 20 MG PO DAILY, (Reported) Metoprolol Tartrate 25 Mg Tablet, 25 MG PO BID, (Reported) Montelukast Sodium 10 Mg Tablet, 10 MG PO HS, (Reported) [place]-3/Dha/Epa/Fish Oil 1 Each Capsule.dr, 2,800 TAB PO BID, (Reported) TAKES 2 (1400MG) CAPSULES Ondansetron 4 Mg Tab.rapdis, 4 MG SL Q4H PRN for NAUSEA/VOMITING-1ST LINE Prescribed by: JORGE ANDERSON on 09/22/17 1037 Pitavastatin Calcium 4 Mg Tablet, 4 MG PO DAILY, (Reported) Promethazine HCl 25 Mg Tablet, 25 MG PO Q6H PRN for NAUSEA/VOMITING-2ND LINE, ( Reported) Ubidecarenone 100 Mg Capsule, 100 MG PO DAILY, (Reported) TAKES ALONG WITH 200MG CAPSULE FOR A TOTAL DAILY DOSE OF 300MG Ubidecarenone 200 Mg Capsule, 200 MG PO DAILY, (Reported) TAKEA ALONG WITH 100MG CAPSULE FOR A TOTAL DAILY DOSE OF 300MG Patient Home Medication List Home Medication List Reviewed: Yes Review of Systems Review of Systems Constitutional: see HPI EENTM: No Symptoms Reported Respiratory: No Symptoms Reported Cardiovascular: No Symptoms Reported Gastrointestinal: See HPI Genitourinary: No Symptoms Reported Musculoskeletal: no symptoms reported Skin: no symptoms reported Psychiatric/Neurological: No Symptoms Reported Endocrine: No Symptoms Reported Hematologic/Lymphatic: No Symptoms Reported Past Jmlhmte-Uusakf-Ejjehw Hx Patient Social History Alcohol Beverage of Choice: Beer, [place] Type Used: Smokeless Tobacco Recent Hopitalizations: No Immunizations Up To Date Tetanus Booster (TDap): Unknown PED Vaccines UTD: Yes Date of Pneumonia Vaccine: Feb 24, 2017 Date of Influenza Vaccine: Feb 24, 2017 Seasonal Allergies Seasonal Allergies: Yes Past Medical History Surgeries: Yes (LITHOTRIPSY, BACK X4, L KNEE ACL REPAIR, WISDOM TEETH,) Abdominal, Adenoidectomy, Appendectomy, Gallbladder, Orthopedic, Tonsillectomy Respiratory: Yes Pneumonia, Sleep Apnea Currently Using CPAP: Yes Currently Using BIPAP: No Cardiac: Yes (STRESS TEST COUPLE YEARS AGO AT [facility]) High Cholesterol, Hypertension Neurological: Yes Headaches /Migraines Reproductive Disorders: No Sexually Transmitted Disease: No HIV/AIDS: No Genitourinary: Yes Kidney Stones, Renal Failure Gastrointestinal: Yes (ABDOMINAL ADHESIONS, FREQUENT SMALL BOWEL OBSTRUCTIONS) Abdominal Hernia, Obstructive Bowel, Polyps Musculoskeletal: Yes Degenerate Disk Disease, Arthritis, Fibromyalgia, Rheumatoid Arthritis, Back Injury, Chronic Back Pain, Fractures, Gout Endocrine: Yes Diabetes, Insulin dep HEENT: No Tonsilitis Loss of Vision: Bilateral Hearing Impairment: Denies Cancer: No Psychosocial: Yes Anxiety, Depression Integumentary: No Blood Disorders: No Adverse Reaction/Blood Tranf: No (N/A) Family Medical History Abdominal aortic aneurysm 09 BROTHER Cancer 03 MOTHER Cancer of colon 03 MOTHER 09 SISTER 19 MOTHER FH: COPD (chronic obstructive pulmonary disease) 19 FATHER FH: leukemia 09 SISTER 19 MOTHER FHx: stroke 19 FATHER Family history: Diabetes mellitus 09 BROTHER 09 SISTER 09 SISTER 09 SISTER Family history: Gastrointestinal disease 03 MOTHER 09 BROTHER Physical Exam Vital Signs Vital Signs - First Documented 04/02/18 08:42 Temp 97.0 Pulse 85 Resp 20 B/P (MAP) 148/107 (121) Pulse Ox 97 Capillary Refill : Height/Weight/BMI Height: 5'11.00" Weight: 250lbs. 0.0oz. 113.155100sa; 34.9 BMI Method:Stated General Appearance: mild distress HEENT: normal ENT inspection Neck: full range of motion Respiratory: normal breath sounds Cardiovascular: normal peripheral pulses, regular rate, rhythm, no edema, no gallop, no JVD, no murmur Gastrointestinal: normal bowel sounds, non tender, soft, other (he is modestly tender to palpation supra umbilical. 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, no motor/sensory deficits, alert, normal mood/affect, oriented x 3 Skin: normal color, warm/dry Progress/Results/Core Measures Results/Orders Lab Results Laboratory Tests Test 04/02/18 09:00 Range/Units White Blood Count 7.5 4.3-11.0 10^3/uL Red Blood Count 4.73 4.35-5.85 10^6/uL Hemoglobin 15.1 13.3-17.7 G/DL Hematocrit 44 40-54 % Mean Corpuscular Volume 92 80-99 FL Mean Corpuscular Hemoglobin 32 25-34 PG Mean Corpuscular Hemoglobin Concent 35 32-36 G/DL Red Cell Distribution Width 13.0 10.0-14.5 % Platelet Count 170 130-400 10^3/uL Mean Platelet Volume 11.5 H 7.4-10.4 FL Neutrophils (%) (Auto) 64 42-75 % Lymphocytes (%) (Auto) 24 12-44 % Monocytes (%) (Auto) 10 0-12 % Eosinophils (%) (Auto) 2 0-10 % Basophils (%) (Auto) 1 0-10 % Neutrophils # (Auto) 4.8 1.8-7.8 X 10^3 Lymphocytes # (Auto) 1.8 1.0-4.0 X 10^3 Monocytes # (Auto) 0.7 0.0-1.0 X 10^3 Eosinophils # (Auto) 0.2 0.0-0.3 10^3/uL Basophils # (Auto) 0.0 0.0-0.1 10^3/uL Sodium Level 136 135-145 MMOL/L Potassium Level 5.9 H 3.6-5.0 MMOL/L Chloride Level 104 98-107 MMOL/L Carbon Dioxide Level 21 21-32 MMOL/L Anion Gap 11 5-14 MMOL/L Blood Urea Nitrogen 12 7-18 MG/DL Creatinine 0.89 0.60-1.30 MG/DL Estimat Glomerular Filtration Rate > 60 BUN/Creatinine Ratio 13 Glucose Level 184 H 70-105 MG/DL Calcium Level 9.7 8.5-10.1 MG/DL Corrected Calcium 9.5 8.5-10.1 MG/DL Total Bilirubin 0.6 0.1-1.0 MG/DL Aspartate Amino Transf (AST/SGOT) 61 H 5-34 U/L Alanine Aminotransferase (ALT/SGPT) 51 0-55 U/L Alkaline Phosphatase 59 40-136 U/L Total Protein 8.0 6.4-8.2 GM/DL Albumin 4.2 3.2-4.5 GM/DL My Orders Orders - IVAN MONAHAN MD Cbc With Automated Diff (04/02/18 08:15) Comprehensive Metabolic Panel (04/02/18 08:15) Fentanyl Injection (Sublimaze Injection (04/02/18 08:45) Ct Abdomen/Pelvis W (04/02/18 09:34) Medications Given in ED Current Medications Medications Dose Ordered Sig/Lamin Route Start Time Stop Time Status Last Admin Dose Admin Fentanyl Citrate 50 mcg ONCE ONCE IVP 04/02/18 08:45 04/02/18 08:46 DC 04/02/18 09:00 50 MCG Vital Signs/I&O 04/02/18 08:42 Temp 97.0 Pulse 85 Resp 20 B/P (MAP) 148/107 (121) Pulse Ox 97 Departure Communication (Admissions) CT scan shows no evidence of recurrent or incarcerated umbilical hernia. The patient and his were informed of these findings Impression Primary Impression: abdominal wall pain Disposition: HOME, SELF-CARE Condition: Stable/Unchanged Departure-Patient Inst. Decision time for Depature: 11:33 Referrals: IRINEO GONSALEZ DO (PCP/Family) Primary Care Physician Patient Instructions: Acute Abdomen (Belly Pain), Adult (DC) Add. Discharge Instructions: All discharge instructions reviewed with patient and/or family. Voiced understanding. Plenty of liquids. Avoid constipation. If further problems see your provider IVAN MONAHAN MD Apr 02, 2018 08:21
[2018-04-02] MEDS ORDERED: fentaNYL INJECTION 100 MCG/2 ML AMP IVP ONE (08:45)
[2018-04-02 09:11] LABS: BASOPHILS % (AUTO) 1 % (0-10); EOSINOPHILS # (AUTO) 0.2 10^3/uL (0.0-0.3); EOSINOPHILS % (AUTO) 2 % (0-10); HEMATOCRIT 44 % (40-54); HEMOGLOBIN 15.1 G/DL (13.3-17.7); LYMPHOCYTES # (AUTO) 1.8 X 10^3 (1.0-4.0); LYMPHOCYTES % (AUTO) 24 % (12-44); MEAN CORPUSCULAR HEMOGLOBIN 32 PG (25-34); MEAN CORPUSCULAR HGB CONC 35 G/DL (32-36); MEAN CORPUSCULAR VOLUME 92 FL (80-99); MEAN PLATELET VOLUME 11.5 FL (7.4-10.4); MONOCYTES # (AUTO) 0.7 X 10^3 (0.0-1.0); MONOCYTES % (AUTO) 10 % (0-12); NEUTROPHILS # (AUTO) 4.8 X 10^3 (1.8-7.8); NEUTROPHILS % (AUTO) 64 % (42-75); PLATELET COUNT 170 10^3/uL (130-400); RED BLOOD COUNT 4.73 10^6/uL (4.35-5.85); WHITE BLOOD COUNT 7.5 10^3/uL (4.3-11.0)
[2018-04-02 09:28] LABS: ALANINE AMINOTRANSFERASE 51 U/L (0-55); ALBUMIN 4.2 GM/DL (3.2-4.5); ALKALINE PHOSPHATASE 59 U/L (40-136); BILIRUBIN,TOTAL 0.6 MG/DL (0.1-1.0); BUN/CREATININE RATIO 13; CALCIUM 9.7 MG/DL (8.5-10.1); CARBON DIOXIDE 21 MMOL/L (21-32); CHLORIDE 104 MMOL/L (98-107); CREATININE SERUM 0.89 MG/DL (0.60-1.30); GFR ESTIMATED > 60; GLUCOSE 184 MG/DL (70-105); POTASSIUM 5.9 MMOL/L (3.6-5.0); SODIUM 136 MMOL/L (135-145)
--- NOTE | 2018-04-02 10:32 | Diagnostic Imaging Report ---
PROCEDURE: CT abdomen and pelvis with contrast. TECHNIQUE: Multiple contiguous axial images were obtained through the abdomen and pelvis after administration of intravenous contrast. INDICATION: Abdominal pain. COMPARISON: 09/22/2017. FINDINGS: The lung bases are clear. The liver demonstrates diffuse low density, consistent with hepatic steatosis. No discrete liver mass is identified. The gallbladder is surgically absent. No biliary ductal dilatation is seen. The pancreas and spleen are unremarkable. No adrenal mass is identified. There appears to be a punctate nonobstructive calculus in the upper pole of the right kidney. No hydronephrosis is seen. The aorta is of normal caliber. No central retroperitoneal or mesenteric lymphadenopathy is seen. The small and large bowel loops appear nonobstructive. There is some diverticulosis of the sigmoid colon but no evidence of acute diverticulitis. The prostate is unremarkable. The bony structures are nonacute. IMPRESSION: 1. Hepatic steatosis. 2. Tiny nonobstructing right renal calculus. 3. Uncomplicated diverticulosis. Dictated by: Dictated on workstation # [id number]
[2018-04-02 11:42] VITALS: BP 146/92
== END 2018-04-02 11:42 | disposition home or self-care (01) ==
LOC: ER 07:45 → EDUNIT# 07:45 → ER 11:42
DX: R10.33 Periumbilical pain (principal); G47.30 Sleep apnea, unspecified; E78.00 Pure hypercholesterolemia, unspecified; I10 Essential (primary) hypertension; G43.909 Migraine, unspecified, not intractable, without status migrainosus; M06.9 Rheumatoid arthritis, unspecified; M10.9 Gout, unspecified; E11.9 Type 2 diabetes mellitus without complications; F41.9 Anxiety disorder, unspecified; F32.9 Major depressive disorder, single episode, unspecified; Z87.19 Personal history of other diseases of the digestive system; Z80.0 Family history of malignant neoplasm of digestive organs; Z87.442 Personal history of urinary calculi; Z79.51 Long term (current) use of inhaled steroids; Z98.890 Other specified postprocedural states; Z79.4 Long term (current) use of insulin; Z90.89 Acquired absence of other organs; Z87.01 Personal history of pneumonia (recurrent)
CPT/HCPCS: 36415; 74177; 80053; 85025

== ENCOUNTER 2018-04-06 20:52 | Outpatient (CLI) | payer MEDICARE, OTHER | END 2018-04-07 06:22 | disposition home or self-care (01) | LOC: SLEEP 20:52 | PROVIDERS: ATTEND Nurse Practitioner Family | DX: G47.33 Obstructive sleep apnea (adult) (pediatric) (principal); G47.61 Periodic limb movement disorder | CPT/HCPCS: 95811 ==

== ENCOUNTER → 2018-06-22 | Outpatient (CLI) | payer MEDICARE, OTHER ==
[~2018-06-22] MED LIST changes: +ASCO500T7 PO; -GABA600T2 PO; +HYDR-3812 PO; +INSU100V SQ; +LIDO1ADH41 TP; +OSLT75C PO; +PRED10TA22 PO; +SITA100T12 PO
--- NOTE | 2018-06-22 13:45 | Diagnostic Imaging Report ---
INDICATION: Pneumonia and cough. Comparison made with prior examination 05/23/2018. PA and lateral views were obtained. FINDINGS: The heart size, mediastinal configuration, and pulmonary vascularity are within normal limits. There is no pleural effusion, pneumothorax, or pneumonia. The osseous structures are unremarkable. IMPRESSION: No acute cardiopulmonary abnormality. Dictated by: Dictated on workstation # [id number]
== END ==
LOC: RAD 13:08
PROVIDERS: ATTEND Nurse Practitioner Family
DX: J15.9 Unspecified bacterial pneumonia (principal)
CPT/HCPCS: 71046

== ENCOUNTER → 2018-07-12 | Outpatient (CLI) | payer MEDICARE, OTHER ==
[~2018-07-12] MED LIST changes: +IOHEXOL 350 MG/ML 100 ML (OMNIPAQUE 350) VIAL IV ONE; +NS 100 ML (IVPB) BAG IV ONE; +RECEIVED CONTRAST (Hold Metformin) IV SCH
--- NOTE | 2018-07-12 09:17 | Diagnostic Imaging Report ---
PROCEDURE: CT chest with contrast only. TECHNIQUE: Multiple contiguous axial images were obtained through the chest after administration of intravenous contrast. INDICATION: Pneumonia, followup. Correlation is made with prior CT chest from 07/28/2017. FINDINGS: No axillary lymphadenopathy is detected. No hilar or mediastinal lymphadenopathy is identified. No pericardial or pleural fluid is detected. Pulmonary parenchymal evaluation demonstrates lungs to be clear. Previously noted area of consolidation in the medial left lower lobe has cleared. Central airways are patent. Upper abdomen does show diffuse low-density throughout the liver consistent with hepatic steatosis. The bony structures are nonacute. IMPRESSION: 1. Resolution of previously noted left lower lobe pneumonia when compared with exam from 07/28/2017. No acute feature is identified on today's exam. 2. Hepatic steatosis. Dictated by: Dictated on workstation # [id number]
== END ==
LOC: RAD 07:56
PROVIDERS: ATTEND Nurse Practitioner Family
DX: K76.0 Fatty (change of) liver, not elsewhere classified (principal); G47.34 Idiopathic sleep related nonobstructive alveolar hypoventilation; R06.00 Dyspnea, unspecified
CPT/HCPCS: 71260

== ENCOUNTER 2018-10-29 21:00 | Outpatient (CLI) | payer MEDICARE, OTHER ==
[~2018-10-29 21:00] MED LIST changes: -IOHEXOL 350 MG/ML 100 ML (OMNIPAQUE 350) VIAL IV ONE; -NS 100 ML (IVPB) BAG IV ONE; -RECEIVED CONTRAST (Hold Metformin) IV SCH
== END 2018-10-30 06:31 | disposition home or self-care (01) ==
LOC: SLEEP 21:00
PROVIDERS: ATTEND Nurse Practitioner Family
DX: G47.33 Obstructive sleep apnea (adult) (pediatric) (principal); R06.00 Dyspnea, unspecified; Z78.9 Other specified health status
CPT/HCPCS: 95811

== ENCOUNTER 2018-11-21 17:12 | Emergency (ER) | payer MEDICARE, OTHER ==
[~2018-11-21] VITALS: Ht 180.3 cm; Wt 117.9 kg
--- OUTSIDE RECORDS SUMMARY | 2018-11-21 17:17 | XMS REPORT | Clinical Summary ---
Author Author [facility] Organization [facility] Address Unknown Phone Unavailable Care Team Providers Care Manager Car Name Role Phone PCP Unavailable Source Comments Some departments are not documenting in the electronic medical record. If you d o not see the information that you expected, contact Release of Information in [facility] Information Management department at [phone] for further assistan ce in locating additional records.[facility] Allergies Not on File Medications Not on file Active Problems Not on file Social History Date Tobacco Use Types Packs/Day Years Used Never Assessed Sex Assigned at Date Recorded Not on file Industry Job Start Date Occupation Not on file Not on file Not on file Travel End Travel History Travel Start No recent travel history available. Last Filed Vital Signs Not on file Plan of Treatment Health Maintenance Due Date Last Done Comments HEPATITIS C SCREENING 1965 PHYSICAL (COMPREHENSIVE) 12/07/1971 EXAM HIV SCREENING 12/07/1979 DTAP/TDAP VACCINES (1 - 1982 Tdap) COLORECTAL CANCER 2014 SCREENING SHINGLES RECOMBINANT 2014 VACCINE (1 of 2) INFLUENZA VACCINE 02/22/2019 Results Not on filefrom Last 3 Months
--- OUTSIDE RECORDS SUMMARY | 2018-11-21 17:21 | XMS REPORT | Continuity of Care Document ---
Author Organization Unknown Address Unknown Allergies Active Description Code Type Severity Reaction Onset Reported/Identified Relationship to Patient Clinical Status Yes No Known Drug Allergies [id number] Drug Allergy Unknown N/A 01/13/2018 Medications There is no data. Problems Date Dx Coded Attending Type Code Diagnosis Diagnosed By 12/07/2010 Ot 250.00 DIAB DAYSI WO COMPL, TYPE II OR UNSPEC TY 12/07/2010 Ot 780.2 SYNCOPE AND COLLAPSE 12/07/2010 Ot V58.69 OTH MED,LT,CURRENT USE 12/14/2010 Ot 250.02 DIAB DAYSI WO [...] DIEHL DO Ot 414.01 CORONARY ATHEROSCLEROSIS OF [place] CORON 12/08/2014 LIDIA DIEHL DO Ot 530.81 ESOPHAGEAL REFLUX 12/08/2014 LIDIA DIEHL DO Ot 560.9 INTESTINAL OBSTRUCT NOS 12/08/2014 LIDIA DIEHL DO, Ot V58.67 LONG-TERM (CURRENT) USE OF INSULIN 12/26/2014 LIDIA DIEHL DO Ot 211.3 BENIGN NEOPLASM LG BOWEL 12/26/2014 LIDIA DIEHL DO Ot 531.90 STOMACH ULCER NOS 12/26/2014 LIDIA DIEHL DO, Ot 535.40 OT SPECIFIED GASTRITIS,W/O MENTION OF H 12/26/2014 LIDIA DIEHL DO Ot 562.10 DIVERTICULOSIS COLON (W/O MENT OF HEMORR 12/26/2014 LIDIA DIEHL DO Ot V16.0 FAMILY HX-GI MALIGNANCY 12/26/2014 LIDIA DIEHL DO, Ot V76.51 SCREEN MAL NEOP-COLON 01/18/2015 LIDIA DIEHL DO Ot 250.00 DIAB DAYSI WO COMPL, TYPE II OR UNSPEC TY 01/18/2015 LIDIA DIEHL DO Ot 568.0 PERITONEAL LCLTGTCOR-FTSN-SG/INF 01/18/2015 LIDIA DIEHL DO Ot 585.2 CHRONIC KIDNEY DISEASE, STAGE II (MILD) 01/18/2015 LIDIA DIEHL DO Ot V12.71 PERSONAL HISTORY OF PEPTIC ULCER DISEASE 01/18/2015 LIDIA DIEHL DO Ot V12.72 PERSONAL HISTORY OF COLONIC POLYPS 01/18/2015 LIDIA DIEHL DO Ot V12.79 PERSONAL HISTORY OTH SPEC DIGESTIVE SYST 01/18/2015 LIDIA DIEHL DO Ot V16.0 FAMILY HX-GI MALIGNANCY 01/18/2015 LIDIA DIEHL DO Ot V64.41 LAPAROSCOPIC SURGICAL PROC CONVERTED TO [...] 04/09/2016 Ot 786.2 COUGH 04/09/2016 Ot 959.3 ELB/FOREARM/WRST INJ NOS 04/09/2016 Ot E000.8 OTHER EXTERNAL CAUSE STATUS 04/09/2016 Ot E885.9 FALL FROM SLIPPING, TRIPPING, OR STUMBLI 04/09/2016 Ot 719.43 JOINT PAIN-FOREARM 04/09/2016 Ot 959.3 ELB/FOREARM/WRST INJ NOS 04/09/2016 Ot E000.8 OTHER EXTERNAL CAUSE STATUS 04/09/2016 Ot E849.0 ACCIDENT IN HOME 04/09/2016 Ot E888.9 FALL NOS 04/09/2016 BRIDGER STEPHENSON, LUCI Graff Ot 786.50 CHEST PAIN NOS 04/09/2016 LUCI SPARKS DO Ot 959.3 ELB/FOREARM/WRST INJ NOS 04/09/2016 LUCI SPARKS DO Ot E000.8 OTHER EXTERNAL CAUSE STATUS 04/09/2016 LUCI SPARKS DO Ot E888.9 FALL NOS 04/09/2016 LUCI SPARKS DO Ot 959.7 LOWER LEG INJURY NOS 04/09/2016 LUCI SPARKS DO Ot E928.9 ACCIDENT NOS 04/09/2016 NATALYA LYNCH, HILDA S Ot 250.40 DIAB W RENAL MANIFEST, TYPE II OR UNSPEC 04/09/2016 NATALYA LYNCH, HILDA S Ot 272.4 HYPERLIPIDEMIA NEC/NOS 04/09/2016 NATALYA LYNCH, HILDA S Ot 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, BENIGN, [...] LEFT LOWER QUADRANT PAIN 06/06/2016 LUCI SPARKS DO, Ot K57.90 DVRTCLOS OF INTEST, PART UNSP, W/O PERF 06/06/2016 LUCI SPARKS DO Ot N20.0 CALCULUS OF KIDNEY 06/11/2016 GELLENDER DO, LUCI Prerna Ot K57.90 DVRTCLOS [...] Graff Ot N20.0 CALCULUS OF KIDNEY 02/13/2017 ALEJANDRO [...] LUCI Graff Ot J98.01 ACUTE BRONCHOSPASM 07/20/2017 GELLENDER DO, LUCI Graff Ot M06.9 RHEUMATOID ARTHRITIS, UNSPECIFIED 07/20/2017 YOONDER , LUCI Graff Ot M10.9 GOUT, UNSPECIFIED 07/20/2017 BRIDGER STEPHENSON, LUCI Graff Ot M19.91 PRIMARY OSTEOARTHRITIS, UNSPECIFIED SITE 07/20/2017 BRIDGER STEPHENSON, LUCI Graff Ot M54.9 DORSALGIA, UNSPECIFIED 07/20/2017 BRIDGER STEPHENSONLUCI Ot M79.7 FIBROMYALGIA 07/20/2017 BRIDGER STEPHENSON, LUCI Graff Ot T38.0X5A ADVERSE EFFECT OF GLUCOCORT/SYNTH ANALOG 07/20/2017 BRIDGER DO, LUCI Graff Ot Z79.4 SENIOR LIVING (CURRENT) USE OF INSULIN 07/20/2017 BRIDGER STEPHENSON, LUCI Graff Ot Z79.52 SENIOR LIVING (CURRENT) USE OF SYSTEMIC STER 07/20/2017 BRIDGER STEPHENSON, LUCI Graff Ot Z86.010 PERSONAL HISTORY OF COLONIC POLYPS 07/20/2017 BRIDGER STEPHENSONLUCI Ot Z87.442 PERSONAL HISTORY OF URINARY CALCULI 07/29/2017 IRINEO GONSALEZ DO Ot E04.1 NONTOXIC SINGLE THYROID NODULE 07/29/2017 IRINEO GONSALEZ DO Ot I25.10 ATHSCL HEART DISEASE OF [place] CORONARY 07/29/2017 GONSALEZ IRINEO STEPHENSON Ot J15.20 PNEUMONIA DUE TO STAPHYLOCOCCUS, UNSPECI 07/29/2017 GONSALEZ IRINEO STEPHENSON Ot K76.0 FATTY (CHANGE OF) LIVER, NOT ELSEWHERE C 08/05/2017 BRIDGER STEPHENSONLUCI Ot 786.50 CHEST PAIN NOS 08/05/2017 BRIDGER STEPHENSONLUCI Ot 959.3 ELB/FOREARM/WRST INJ NOS 08/05/2017 BRIDGER STEPHENSONLUCI Ot E000.8 OTHER EXTERNAL CAUSE STATUS 08/05/2017 BRIDGER STEPHENSONLUCI Ot E888.9 FALL NOS 08/05/2017 BRIDGER STEPHENSONLUCI Ot 959.7 LOWER LEG INJURY NOS 08/05/2017 BRIDGER STEPHENSONLUCI Ot E928.9 ACCIDENT NOS 08/05/2017 NATALYA LYNCH, HILDA Alcaraz Ot 250.40 DIAB W RENAL MANIFEST, TYPE II OR UNSPEC 08/05/2017 NATALYA LYNCH, HILDA Alcaraz Ot 272.4 HYPERLIPIDEMIA NEC/NOS 08/05/2017 NATALYA LYNCH, HILDA Alcaraz Ot 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, BENIGN, W CHR KD ST 08/05/2017 NATALYA LYNCH, HILDA Alcaraz Ot 581.9 NEPHROTIC SYNDROME NOS 08/05/2017 NATALYA LYNCH, HILDA Alcaraz Ot 583.81 NEPHRITIS [...] DO Ot V72.84 EXAM PRE-OPERATIVE NOS 08/05/2017 LIDIA DIEHL DO Ot 585.2 CHRONIC KIDNEY [...] OF INTEST, PART UNSP, W/O PERF 08/05/2017 LUCI SPARKS DO Ot N20.0 CALCULUS OF KIDNEY 08/05/2017 IRINEO GONSALEZ DO Ot E04.1 NONTOXIC SINGLE THYROID NODULE 08/05/2017 IRINEO GONSALEZ DO Ot I25.10 ATHSCL HEART DISEASE OF [place] CORONARY 08/05/2017 IRINEO GONSALEZ DO Ot J15.20 PNEUMONIA DUE TO STAPHYLOCOCCUS, UNSPECI 08/05/2017 IRINEO GONSALEZ DO Ot K76.0 FATTY (CHANGE OF) LIVER, NOT ELSEWHERE C 08/06/2017 IRINEO GONSALEZ DO Ot E04.2 NONTOXIC MULTINODULAR GOITER 08/14/2017 BIANCA CARR DO, Ot J18.9 PNEUMONIA, UNSPECIFIED ORGANISM 08/14/2017 BIANCA CARR DO Ot R06.00 DYSPNEA, UNSPECIFIED 08/14/2017 BIANCA CARR DO Ot R91.8 OTHER NONSPECIFIC ABNORMAL FINDING OF [place] 08/14/2017 BIANCA CARR DO, Ot J18.9 PNEUMONIA, UNSPECIFIED ORGANISM 08/14/2017 BIANCA CARR DO Ot R06.00 DYSPNEA, UNSPECIFIED 08/14/2017 BIANCA CARR DO Ot R91.8 OTHER NONSPECIFIC ABNORMAL FINDING OF [place] 08/17/2017 BIANCA CARR DO Ot J18.9 PNEUMONIA, UNSPECIFIED ORGANISM 08/17/2017 BIANCA CARR DO Ot R06.00 DYSPNEA, UNSPECIFIED 08/17/2017 BIANCA CARR DO Ot R91.8 OTHER NONSPECIFIC ABNORMAL FINDING OF [place] 08/17/2017 BIANCA CARR DO Ot J18.9 PNEUMONIA, UNSPECIFIED ORGANISM 08/17/2017 BIANCA [...] DO Ot I25.10 ATHSCL HEART DISEASE OF [place] CORONARY 08/18/2017 IRINEO GONSALEZ DO Ot J15.20 [...] 08/21/2017 BIANCA CARR DO Ot 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 08/21/2017 IRINEO GONSALEZ DO Ot E04.1 NONTOXIC SINGLE THYROID NODULE 08/21/2017 IRINEO GONSALEZ DO Ot I25.10 ATHSCL HEART DISEASE OF [place] CORONARY 08/21/2017 IRINEO GONSALEZ DO Ot J15.20 [...] 08/21/2017 BIANCA CARR DO Ot Z79.899 OTHER SENIOR LIVING (CURRENT) DRUG THERAPY 08/25/2017 GONSALEZ DO, IRINEO Ot R05 COUGH 08/27/2017 GONSALEZ DO, IRINEO Ot R05 COUGH 08/27/2017 GONSALEZ DO, IRINEO Ot E04.2 NONTOXIC MULTINODULAR GOITER 09/01/2017 GONSALEZ DO, IRINEO Ot E04.2 NONTOXIC MULTINODULAR GOITER 09/11/2017 BIANCA CARR DO Ot G25.61 DRUG [...] 09/11/2017 BIANCA CARR DO Ot Z79.899 OTHER SENIOR LIVING (CURRENT) DRUG THERAPY 09/11/2017 BIANCA CARR DO [...] 09/11/2017 BIANCA CARR DO Ot Z79.899 OTHER SENIOR LIVING (CURRENT) DRUG THERAPY 09/11/2017 AMANDA PRINCE UNIX ADMINISTRATOR Ot G25.81 RESTLESS LEGS SYNDROME 09/11/2017 YADIRA PRINCEINE E UNIX ADMINISTRATOR Ot J18.9 PNEUMONIA, UNSPECIFIED ORGANISM 09/11/2017 YADIRA PRINCEINE E UNIX ADMINISTRATOR Ot J98.11 ATELECTASIS 09/11/2017 YADIRA PRINCEINE Shoaib UNIX ADMINISTRATOR Ot K21.9 GASTRO-ESOPHAGEAL REFLUX DISEASE WITHOUT 09/11/2017 YADIRA PRINCEINE Shoaib UNIX ADMINISTRATOR Ot R91.8 OTHER NONSPECIFIC ABNORMAL FINDING OF [place] 09/15/2017 AMANDA PRINCE UNIX ADMINISTRATOR Ot G25.81 RESTLESS LEGS SYNDROME 09/15/2017 AMANDA PRINCE UNIX ADMINISTRATOR Ot J18.9 PNEUMONIA, UNSPECIFIED ORGANISM 09/15/2017 YADIRA PRINCEINE E UNIX ADMINISTRATOR Ot J98.11 ATELECTASIS 09/15/2017 YADIRA PRINCEINE E UNIX ADMINISTRATOR Ot K21.9 GASTRO-ESOPHAGEAL REFLUX DISEASE WITHOUT 09/15/2017 YADIRA PRINCEINE E UNIX ADMINISTRATOR Ot R91.8 OTHER NONSPECIFIC ABNORMAL FINDING OF [place] 09/17/2017 AMANDA PRINCE E UNIX ADMINISTRATOR Ot G25.81 RESTLESS LEGS SYNDROME 09/17/2017 AMANDA PRINCE UNIX ADMINISTRATOR Ot G47.30 SLEEP APNEA, UNSPECIFIED 09/17/2017 YADIRA PRINCEINE E UNIX ADMINISTRATOR Ot G25.81 RESTLESS LEGS SYNDROME 09/17/2017 AMANDA PRINCE UNIX ADMINISTRATOR Ot G47.30 SLEEP APNEA, UNSPECIFIED 09/22/2017 AMARILIS [...] Ot M10.9 GOUT, UNSPECIFIED 09/22/2017 JORGE OLMOS MD, Ot M54.5 LOW BACK PAIN 09/22/2017 JORGE OLMOS MD, Ot R10.31 RIGHT LOWER QUADRANT PAIN 09/22/2017 JORGE OLMOS MD, Ot Z79.4 SENIOR LIVING (CURRENT) USE OF INSULIN 09/22/2017 JORGE OLMOS [...] HISTORY OF NICOTINE DEPENDENCE 09/22/2017 JORGE OLMOS MD, Ot Z90.49 ACQUIRED ABSENCE OF OTHER SPECIFIED PART 09/22/2017 JORGE OLMOS MD, Ot Z90.89 ACQUIRED ABSENCE OF OTHER ORGANS 09/24/2017 JORGE OLMOS MD Ot E11.9 TYPE 2 DIABETES MELLITUS WITHOUT COMPLIC 09/24/2017 JORGE OLMOS MD, Ot E78.00 PURE HYPERCHOLESTEROLEMIA, UNSPECIFIED 09/24/2017 JORGE OLMOS MD, Ot F32.9 MAJOR DEPRESSIVE DISORDER, SINGLE EPISOD 09/24/2017 BRUEGGEMANN MD, JORGE T Ot F41.9 ANXIETY DISORDER, UNSPECIFIED 09/24/2017 JORGE OLMOS MD Ot G43.909 MIGRAINE, UNSP, NOT INTRACTABLE, WITHOUT 09/24/2017 JORGE OLMOS MD Ot G47.30 SLEEP APNEA, UNSPECIFIED 09/24/2017 JORGE OLMOS MD Ot I10 ESSENTIAL (PRIMARY) HYPERTENSION 09/24/2017 JORGE OLMOS MD Ot M06.9 RHEUMATOID ARTHRITIS, UNSPECIFIED 09/24/2017 JORGE OLMOS MD, Ot M10.9 GOUT, UNSPECIFIED 09/24/2017 JORGE OLMOS MD Ot M54.5 LOW BACK PAIN 09/24/2017 JORGE OLMOS MD Ot R10.31 RIGHT LOWER QUADRANT PAIN 09/24/2017 JORGE OLMOS MD Ot Z79.4 SENIOR LIVING (CURRENT) USE OF INSULIN 09/24/2017 JORGE OLMOS [...] UNSPECIFIED INJURY OF RIGHT FOOT, INITIA 10/29/2017 MELODY LYNCH, BERNIE Reed Ot E04.2 NONTOXIC MULTINODULAR GOITER 10/29/2017 MELODY LYNCH, BERNIE Reed Ot E04.2 NONTOXIC MULTINODULAR GOITER 10/30/2017 YOLI MALONE Ot S99.921A UNSPECIFIED INJURY OF RIGHT FOOT, INITIA 11/03/2017 BERNIE OLIVER MD P Ot E04.2 NONTOXIC MULTINODULAR GOITER 11/19/2017 MELODY LYNCH, BERNIE P Ot E04.2 NONTOXIC MULTINODULAR GOITER 11/24/2017 MELODY LYNCH, BERNIE Reed Ot E04.2 NONTOXIC MULTINODULAR GOITER 01/13/2018 MOISÉS [...] Ot G62.9 POLYNEUROPATHY, UNSPECIFIED 01/20/2018 MOISÉS LOUIS MD Ot I10 ESSENTIAL (PRIMARY) HYPERTENSION 01/20/2018 MOISÉS LOUIS MD Ot M10.9 GOUT, UNSPECIFIED 01/20/2018 MOISÉS LOUIS MD, Ot 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 01/20/2018 MOISÉS LOUIS MD, Ot Z80.0 FAMILY HISTORY OF MALIGNANT NEOPLASM OF 01/20/2018 MOISÉS LOUIS MD, Ot Z80.3 FAMILY HISTORY OF MALIGNANT NEOPLASM OF 01/20/2018 MOISÉS LOUIS MD, Ot Z98.1 ARTHRODESIS STATUS 01/22/2018 MOISÉS LOUIS MD Ot D12.3 BENIGN NEOPLASM OF TRANSVERSE COLON 01/22/2018 MOISÉS LOUIS MD, Ot D12.4 BENIGN NEOPLASM [...] 01/22/2018 MOISÉS LOUIS MD Ot Z79.899 OTHER SENIOR LIVING (CURRENT) DRUG THERAPY 01/22/2018 MOISÉS LOUIS MD Ot Z80.0 FAMILY HISTORY OF MALIGNANT NEOPLASM OF 01/22/2018 MOISÉS LOUIS MD Ot Z80.3 FAMILY HISTORY OF MALIGNANT NEOPLASM OF 01/22/2018 MOISÉS LOUIS MD Ot Z98.1 ARTHRODESIS STATUS 01/22/2018 SURESH, AMANDA E UNIX ADMINISTRATOR Ot G47.30 SLEEP APNEA, UNSPECIFIED 01/28/2018 SURESH, AMANDA E UNIX ADMINISTRATOR Ot G47.30 SLEEP APNEA, UNSPECIFIED 01/28/2018 SURESH, AMANDA E UNIX ADMINISTRATOR Ot G47.33 OBSTRUCTIVE SLEEP APNEA (ADULT) (PEDIATR 01/28/2018 SURESH AMANDA E UNIX ADMINISTRATOR Ot Z78.9 OTHER SPECIFIED HEALTH STATUS 01/28/2018 SURESH AMANDA E UNIX ADMINISTRATOR Ot G47.33 OBSTRUCTIVE SLEEP APNEA (ADULT) (PEDIATR 01/28/2018 SURESH, AMANDA E UNIX ADMINISTRATOR Ot Z78.9 OTHER SPECIFIED HEALTH STATUS 02/01/2018 MOISÉS LOUIS MD Ot D12.3 BENIGN NEOPLASM OF TRANSVERSE COLON 02/01/2018 MOISÉS LOUIS MD Ot D12.4 BENIGN NEOPLASM OF DESCENDING COLON 02/01/2018 MOISÉS LOUIS MD Ot E11.9 TYPE 2 DIABETES MELLITUS WITHOUT COMPLIC 02/01/2018 MOISÉS LOUIS MD Ot E78.00 PURE HYPERCHOLESTEROLEMIA, UNSPECIFIED 02/01/2018 MOISÉS LOUIS MD Ot F17.220 NICOTINE DEPENDENCE, CHEWING TOBACCO, UN 02/01/2018 MOISÉS LOUIS MD Ot G62.9 POLYNEUROPATHY, UNSPECIFIED 02/01/2018 MOISÉS LOUIS MD Ot I10 ESSENTIAL (PRIMARY) HYPERTENSION 02/01/2018 MOISÉS LOUIS MD, Ot M10.9 GOUT, UNSPECIFIED 02/01/2018 MOISÉS LOUIS MD, Ot Z79.899 OTHER SENIOR LIVING (CURRENT) DRUG THERAPY 02/01/2018 MOISÉS LOUIS MD, Ot Z80.0 FAMILY HISTORY OF MALIGNANT NEOPLASM OF 02/01/2018 MOISÉS LOUIS MD, Ot Z80.3 FAMILY HISTORY OF MALIGNANT NEOPLASM OF 02/01/2018 MOISÉS LOUIS MD, Ot Z98.1 ARTHRODESIS STATUS 03/15/2018 AMANDA PRINCE APRN Ot G47.33 OBSTRUCTIVE SLEEP APNEA (ADULT) (PEDIATR 03/30/2018 BRIDGER LUCI STEPHENSON Ot 786.50 CHEST PAIN NOS 03/30/2018 [facility] Ot 959.3 ELB/FOREARM/WRST INJ NOS 03/30/2018 [facility] Ot E000.8 OTHER EXTERNAL CAUSE STATUS 03/30/2018 [facility] LUCI STEPHENSON Ot E888.9 FALL NOS 03/30/2018 [facility] Ot 959.7 LOWER LEG INJURY NOS 03/30/2018 [facility] LUCI STEPHENSON Ot E928.9 ACCIDENT NOS 03/30/2018 [...] DO Ot V72.63 PRE-PROCEDURAL LABORATORY EXAMINATION 03/30/2018 FAZAL LIDIA STEPHENSON Ot V74.8 SCREEN-BACTERIAL DIS NEC 03/30/2018 LIDIA DIEHL DO Ot 787.3 FLATUL/ERUCTAT/GAS PAIN 03/30/2018 LIDIA DIEHL DO Ot V16.0 FAMILY HX-GI MALIGNANCY 03/30/2018 FAZAL LIDIA STEPHENSON Ot V72.84 EXAM PRE-OPERATIVE NOS 03/30/2018 LIDIA DIEHL DO Ot 585.2 CHRONIC KIDNEY DISEASE, STAGE II (MILD) 03/30/2018 LIDIA DIEHL DO Ot V72.63 PRE-PROCEDURAL LABORATORY EXAMINATION 03/30/2018 LIDIA DIELH DO, Ot V74.8 SCREEN-BACTERIAL DIS NEC 03/30/2018 FAZAL LIDIA STEPHENSON Ot K25.9 GASTRIC ULCER, UNSP ACUTE OR CHRONIC, 03/30/2018 LIDIA DIEHL DO Ot Z01.818 ENCOUNTER FOR OTHER PREPROCEDURAL EXAMIN 03/30/2018 LIDIA DIEHL DO, Ot K25.9 GASTRIC ULCER, UNSP ACUTE OR CHRONIC, 03/30/2018 FAZAL LIDIA STEPHENSON Ot Z01.818 ENCOUNTER FOR OTHER PREPROCEDURAL EXAMIN [...] DO Ot I25.10 ATHSCL HEART DISEASE OF [place] CORONARY 03/30/2018 IRINEO GONSALEZ DO Ot J15.20 PNEUMONIA DUE TO STAPHYLOCOCCUS, UNSPECI 03/30/2018 IRINEO GONSALEZ DO Ot K76.0 FATTY (CHANGE OF) LIVER, NOT ELSEWHERE C 03/30/2018 IRINEO GONSALEZ DO Ot E04.2 NONTOXIC MULTINODULAR GOITER 03/30/2018 BRUNO STEPHENSON BIANCA Son Ot G25.61 DRUG INDUCED TICS 03/30/2018 BRUNO BIANCA STEPHENSON Ot G47.33 OBSTRUCTIVE SLEEP APNEA (ADULT) (PEDIATR 03/30/2018 BRUNO STEPHENSON BIANCA Son Ot J18.9 PNEUMONIA, UNSPECIFIED ORGANISM 03/30/2018 BRUNO STEPHENSON BIANCA Son Ot K21.9 GASTRO-ESOPHAGEAL REFLUX DISEASE WITHOUT 03/30/2018 BRUNO BIANCA Son Ot R06.00 DYSPNEA, UNSPECIFIED 03/30/2018 BRUNO STEPHENSON BIANCA Son Ot R91.8 OTHER NONSPECIFIC ABNORMAL FINDING OF DHIR[place] 03/30/2018 BRUNO DOMISAELBIANCA M Ot Z79.899 OTHER SENIOR LIVING (CURRENT) DRUG THERAPY 03/30/2018 AMANDA PRINCE APRN [...] ABNORMAL FINDING OF [place] 03/30/2018 YOLI MALONE Ot S99.921A UNSPECIFIED INJURY OF RIGHT FOOT, INITIA 03/30/2018 AMANDA PRINCE APRN Ot G47.33 OBSTRUCTIVE SLEEP APNEA (ADULT) (PEDIATR 04/01/2018 BERNIE OLIVER MD Ot E04.2 NONTOXIC MULTINODULAR GOITER 04/02/2018 IVAN MONAHAN MD Ot E11.9 TYPE 2 DIABETES MELLITUS WITHOUT COMPLIC 04/02/2018 IVAN MONAHAN MD Ot E78.00 PURE HYPERCHOLESTEROLEMIA, UNSPECIFIED 04/02/2018 IVAN MONAHAN MD Ot F32.9 MAJOR DEPRESSIVE DISORDER, SINGLE EPISOD 04/02/2018 IVAN MONAHAN MD, Ot F41.9 ANXIETY DISORDER, UNSPECIFIED 04/02/2018 IVAN MONAHAN MD, Ot G43.909 MIGRAINE, UNSP, NOT INTRACTABLE, WITHOUT 04/02/2018 IVAN MONAHAN MD, Ot G47.30 SLEEP APNEA, UNSPECIFIED 04/02/2018 IVAN MONAHAN MD Ot I10 ESSENTIAL (PRIMARY) HYPERTENSION 04/02/2018 IVAN MONAHAN MD, Ot M06.9 RHEUMATOID ARTHRITIS, UNSPECIFIED 04/02/2018 IVAN MONAHAN MD, Ot M10.9 GOUT, UNSPECIFIED 04/02/2018 IVAN MONAHAN MD, Ot R10.33 PERIUMBILICAL PAIN 04/02/2018 IVAN MONAHAN MD, Ot 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 04/02/2018 IVAN MONAHAN MD, Ot Z79.51 SENIOR LIVING (CURRENT) USE OF INHALED STERO 04/02/2018 IVAN MONAHAN MD, Ot Z80.0 FAMILY HISTORY OF MALIGNANT NEOPLASM OF 04/02/2018 IVAN MONAHAN MD, Ot Z87.01 PERSONAL HISTORY OF PNEUMONIA (RECURRENT 04/02/2018 IVAN MONAHAN MD, Ot Z87.19 PERSONAL HISTORY OF OTHER DISEASES OF TH 04/02/2018 IVAN MONAHAN MD, Ot Z87.442 PERSONAL HISTORY OF URINARY CALCULI 04/02/2018 IVAN MONAHAN MD, Ot Z90.89 ACQUIRED ABSENCE OF OTHER ORGANS 04/02/2018 IVAN MONAHAN MD Ot Z98.890 OTHER SPECIFIED POSTPROCEDURAL STATES 04/05/2018 MELODY LYNCH, BERNIE Reed Ot E04.2 NONTOXIC MULTINODULAR GOITER 04/05/2018 IVAN MONAHAN MD Ot E11.9 TYPE 2 DIABETES MELLITUS WITHOUT COMPLIC 04/05/2018 IVAN MONAHAN MD Ot E78.00 PURE HYPERCHOLESTEROLEMIA, UNSPECIFIED 04/05/2018 IVAN MONAHAN MD Ot F32.9 MAJOR DEPRESSIVE DISORDER, SINGLE EPISOD 04/05/2018 IVAN MONAHAN MD, Ot F41.9 ANXIETY DISORDER, UNSPECIFIED 04/05/2018 IVAN MONAHAN MD, Ot G43.909 MIGRAINE, UNSP, NOT INTRACTABLE, WITHOUT 04/05/2018 ODGERS MD, IVAN K Ot G47.30 SLEEP APNEA, UNSPECIFIED 04/05/2018 IVAN MONAHAN MD Ot I10 ESSENTIAL (PRIMARY) HYPERTENSION 04/05/2018 IVAN MONAHAN MD, Ot M06.9 RHEUMATOID ARTHRITIS, UNSPECIFIED 04/05/2018 IVAN MONAHAN MD, Ot M10.9 GOUT, UNSPECIFIED 04/05/2018 IVAN MONAHAN MD Ot R10.33 PERIUMBILICAL PAIN 04/05/2018 IVAN MONAHAN MD Ot 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 04/05/2018 IVAN MONAHAN MD Ot Z79.51 SENIOR LIVING (CURRENT) USE OF INHALED STERO 04/05/2018 IVAN MONAHAN MD, Ot Z80.0 FAMILY HISTORY OF MALIGNANT NEOPLASM OF 04/05/2018 IVAN MONAHAN MD, Ot Z87.01 PERSONAL HISTORY OF PNEUMONIA (RECURRENT 04/05/2018 IVAN MONAHAN MD Ot Z87.19 PERSONAL HISTORY OF OTHER DISEASES OF TH 04/05/2018 IVAN MONAHAN MD, Ot Z87.442 PERSONAL HISTORY OF URINARY CALCULI 04/05/2018 IVAN MONAHAN MD Ot Z90.89 ACQUIRED ABSENCE OF OTHER ORGANS 04/05/2018 IVAN MONAHAN MD Ot Z98.890 OTHER SPECIFIED POSTPROCEDURAL STATES 04/07/2018 AMANDA PRINCE APRN Ot G47.33 OBSTRUCTIVE SLEEP APNEA (ADULT) (PEDIATR 04/07/2018 AMANDA PRINCE APRN Ot G47.61 PERIODIC LIMB MOVEMENT DISORDER 04/09/2018 AMANDA PRINCE APRN Ot G47.33 OBSTRUCTIVE SLEEP APNEA (ADULT) (PEDIATR 04/09/2018 AMANDA PRINCE APRN Ot G47.61 PERIODIC LIMB MOVEMENT DISORDER 04/21/2018 MELODY LYNCH, BERNIE Reed Ot E04.2 NONTOXIC MULTINODULAR GOITER 05/23/2018 GONSALEZ DO, IRINEO Ot A41.9 SEPSIS, UNSPECIFIED ORGANISM 05/23/2018 GONSALEZ DO, IRINEO Ot E03.9 HYPOTHYROIDISM, UNSPECIFIED 05/23/2018 GONSALEZ DO, IRINEO Ot E11.9 TYPE 2 DIABETES MELLITUS WITHOUT COMPLIC 05/23/2018 GONSALEZ DO, IRINEO Ot E78.00 PURE HYPERCHOLESTEROLEMIA, UNSPECIFIED 05/23/2018 GONSALEZ DO, IRINEO Ot E78.5 HYPERLIPIDEMIA, UNSPECIFIED 05/23/2018 GONSALEZ DO, IRINEO Ot E83.42 HYPOMAGNESEMIA 05/23/2018 GONSAELZ DO, IRINEO Ot F17.200 NICOTINE DEPENDENCE, UNSPECIFIED, UNCOMP 05/23/2018 GONSALEZ DO, IRINEO Ot F32.9 MAJOR DEPRESSIVE DISORDER, SINGLE EPISOD 05/23/2018 GONSALEZ DO, IRINEO Ot F41.9 ANXIETY DISORDER, UNSPECIFIED 05/23/2018 GONSALEZ DO, IRINEO Ot G43.909 MIGRAINE, UNSP, NOT INTRACTABLE, WITHOUT 05/23/2018 GONSALEZ DO, IRINEO Ot G89.4 CHRONIC PAIN SYNDROME 05/23/2018 GONSALEZ DO, IRINEO Ot I12.9 HYPERTENSIVE CHRONIC KIDNEY DISEASE W ST 05/23/2018 WALLACE DO, IRINEO Ot J10.00 FLU DUE TO OTH IDENT FLU VIRUS W UNSP TY 05/23/2018 GONSALEZ DO, IRINEO Ot J15.212 PNEUMONIA DUE TO METHICILLIN RESISTANT S 05/23/2018 GONSALEZ DO, IRINEO Ot J20.9 ACUTE BRONCHITIS, UNSPECIFIED 05/23/2018 GONSALEZ DO, IRINEO Ot J44.0 CHRONIC OBSTRUCTIVE PULMON DISEASE W ACU 05/23/2018 GONSALEZ DO, IRINEO Ot M06.9 RHEUMATOID ARTHRITIS, UNSPECIFIED 05/23/2018 GONSALEZ DO, IRINEO Ot M10.9 GOUT, UNSPECIFIED 05/23/2018 GONSALEZ DO, IRINEO Ot M54.9 DORSALGIA, UNSPECIFIED 05/23/2018 GONSALEZ DO, IRINEO Ot M79.7 FIBROMYALGIA 05/23/2018 GONSALEZ DO, IRINEO Ot N18.9 CHRONIC KIDNEY DISEASE, UNSPECIFIED 05/23/2018 GONSALEZ DO, IRINEO Ot R00.0 TACHYCARDIA, UNSPECIFIED 05/23/2018 GONSALEZ DO, IRINEO Ot R09.02 HYPOXEMIA 05/23/2018 WALLACE DO, IRINEO Ot 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 07/12/2018 AMANDA PRINCE APRN Ot G47.34 IDIO SLEEP RELATED NONOBSTRUCTIVE ALVEOL 07/12/2018 AMANDA PRINCE APRN Ot K76.0 FATTY (CHANGE OF) LIVER, NOT ELSEWHERE C 07/12/2018 AMANDA PRINCE APRN Ot R06.00 DYSPNEA, UNSPECIFIED 07/14/2018 AMANDA PRINCE UNIX ADMINISTRATOR Ot J15.9 UNSPECIFIED BACTERIAL PNEUMONIA 07/20/2018 AMANDA PRINCE UNIX ADMINISTRATOR Ot J15.9 UNSPECIFIED BACTERIAL PNEUMONIA 08/04/2018 AMANDA PRINCE UNIX ADMINISTRATOR Ot G47.34 IDIO SLEEP RELATED NONOBSTRUCTIVE ALVEOL 08/04/2018 AMANDA PRINCE UNIX ADMINISTRATOR Ot K76.0 FATTY (CHANGE OF) LIVER, NOT ELSEWHERE C 08/04/2018 AMANDA PRINCE UNIX ADMINISTRATOR Ot R06.00 DYSPNEA, UNSPECIFIED 08/06/2018 AMANDA PRINCE UNIX ADMINISTRATOR Ot G47.34 IDIO SLEEP RELATED NONOBSTRUCTIVE ALVEOL 08/06/2018 AMANDA PRINCE UNIX ADMINISTRATOR Ot K76.0 FATTY (CHANGE OF) LIVER, NOT ELSEWHERE C 08/06/2018 AMANDA PRINCE UNIX ADMINISTRATOR Ot R06.00 DYSPNEA, UNSPECIFIED 10/26/2018 AMANDA PRINCE UNIX ADMINISTRATOR Ot G47.33 OBSTRUCTIVE SLEEP APNEA (ADULT) (PEDIATR 10/29/2018 AMANDA PRINCE UNIX ADMINISTRATOR Ot G47.33 OBSTRUCTIVE SLEEP APNEA (ADULT) (PEDIATR 10/30/2018 AMANDA PRINCE UNIX ADMINISTRATOR Ot G47.33 OBSTRUCTIVE SLEEP APNEA (ADULT) (PEDIATR 10/30/2018 AMANDA PRINCE UNIX ADMINISTRATOR Ot R06.00 DYSPNEA, UNSPECIFIED 10/30/2018 AMANDA PRINCE UNIX ADMINISTRATOR Ot Z78.9 OTHER SPECIFIED HEALTH STATUS 11/02/2018 AMANDA PRINCE UNIX ADMINISTRATOR Ot G47.33 OBSTRUCTIVE SLEEP APNEA (ADULT) (PEDIATR 11/02/2018 AMANDA PRINCE UNIX ADMINISTRATOR Ot R06.00 DYSPNEA, UNSPECIFIED 11/02/2018 AMANDA PRINCE UNIX ADMINISTRATOR Ot Z78.9 OTHER SPECIFIED HEALTH STATUS Procedures Code Description Performed By Performed On 54.51 LAPAROSCOP LYSIS-PERITONEAL ADHES 01/16/2015 54.59 OTH LYSIS-PERITONEAL ADHES 01/16/2015 Results Test Result Range [id number] - 04/03/16 15:27 Serum or plasma urea [...] Automated erythrocyte mean corpuscular hemoglobin concentration measurement (mass/volume) 36 g/dL 32-36 Automated erythrocyte distribution width ratio 12.3 % 10.0- 14.5 Automated blood platelet count (count/volume) 192 10*3/uL [...] Blood monocytes automated count (number/volume) 1.8 10*3 0.0- 1.0 Automated eosinophil count 0.1 10*3/uL 0.0-0.3 Automated [...] NRG Manual blood basophils/100 leukocytes 0 % NRG Blood erythrocyte morphology finding identification NORMAL NRG Whole blood basic metabolic panel - 07/15/17 [...] Blood lactic acid measurement (moles/volume) 2.08 mmol/L 0.50- 2.00 Bacterial blood culture - 07/15/17 15:55 Bacterial blood culture NG NRG Bacterial blood culture - 07/15/17 16:35 Bacterial blood culture NG NRG Capillary blood glucose measurement by glucometer (mass/volume) - 07/15/17 17:12 Capillary blood glucose measurement by glucometer (mass/volume) 273 mg/dL 70-110 Bacterial blood culture - 07/15/17 17:51 Bacterial blood culture NG NRG Serum or plasma lactate measurement (moles/volume) - 07/15/17 18:02 Serum or plasma lactate measurement (moles/volume) 1.38 mmol/L 0.50-2.00 Bacterial blood culture - 07/15/17 18:02 Bacterial blood culture NG NRG Blood lactic acid measurement (moles/volume) - 07/15/17 20:05 Blood lactic acid measurement (moles/volume) 2.46 mmol/L 0.50- 2.00 Capillary blood glucose measurement by glucometer (mass/volume) - 07/15/17 21:51 Capillary blood glucose measurement by glucometer (mass/volume) [...] Automated erythrocyte mean corpuscular hemoglobin concentration measurement (mass/volume) 35 g/dL 32-36 Automated erythrocyte distribution width ratio 12.1 % 10.0- 14.5 Automated blood platelet count (count/volume) 180 10*3/uL [...] Blood monocytes automated count (number/volume) 1.4 10*3 0.0- 1.0 Automated eosinophil count 0.2 10*3/uL 0.0-0.3 Automated [...] glucose measurement by glucometer (mass/volume) - 07/16/17 06:10 Capillary blood glucose measurement by glucometer (mass/volume) 292 mg/dL 70-110 Capillary blood glucose measurement by glucometer (mass/volume) - 07/16/17 10:38 Capillary blood glucose measurement by glucometer (mass/volume) 265 mg/dL 70-110 Capillary blood glucose measurement by glucometer (mass/volume) - 07/16/17 16:13 Capillary blood glucose measurement by glucometer (mass/volume) 199 mg/dL 70-110 Sputum Gram stain - 07/16/17 20:30 GRAM STAIN SPUTUM AND MIXED BACTERIAL UMAIR NR Bacterial sputum culture - 07/16/17 20:30 FREE TEXT EXTERNAL PLUS SCANT PRESUMPTIVE VINCE ALBICANS NRG QUANTITY OF GROWTH Abundant Growth NRG MRSA AGAR Screening test for MRSA is NEGATIVE (Final to follow) [facility] Bacterial sputum culture [id number] [facility] Bacterial susceptibility panel - 07/16/17 20:30 Oxacillin susceptibility test by minimum inhibitory concentration <= NRG Gentamicin susceptibility test by minimum inhibitory concentration <= NRG Clindamycin susceptibility test by minimum inhibitory [...] glucose measurement by glucometer (mass/volume) - 07/16/17 21:04 Capillary blood glucose measurement by glucometer (mass/volume) [...] Automated erythrocyte mean corpuscular hemoglobin concentration measurement (mass/volume) 34 g/dL 32-36 Automated erythrocyte distribution width ratio 12.2 % 10.0- 14.5 Automated blood platelet count (count/volume) 192 10*3/uL [...] glucose measurement by glucometer (mass/volume) - 07/17/17 05:53 Capillary blood glucose measurement by glucometer (mass/volume) 220 mg/dL 70-110 Capillary blood glucose measurement by glucometer (mass/volume) - 07/17/17 10:51 Capillary blood glucose measurement by glucometer (mass/volume) 211 mg/dL 70-110 Capillary blood glucose measurement by glucometer (mass/volume) - 07/17/17 15:51 Capillary blood glucose measurement by glucometer (mass/volume) 127 mg/dL 70-110 Capillary blood glucose measurement by glucometer (mass/volume) - 07/17/17 21:56 Capillary blood glucose measurement by glucometer (mass/volume) 140 mg/dL 70-110 Capillary blood glucose measurement by glucometer (mass/volume) - 07/18/17 05:25 Capillary blood glucose measurement by glucometer (mass/volume) [...] Automated erythrocyte mean corpuscular hemoglobin concentration measurement (mass/volume) 35 g/dL 32-36 Automated erythrocyte distribution width ratio 12.1 % 10.0- 14.5 Automated blood platelet count (count/volume) 210 10*3/uL 130-400 Automated blood platelet mean volume measurement 10.0 [foz_us] 7.4-10.4 Capillary blood glucose measurement by glucometer (mass/volume) - 07/18/17 10:41 Capillary blood glucose measurement by glucometer (mass/volume) 198 mg/dL 70-110 Capillary blood glucose measurement by glucometer (mass/volume) - 07/18/17 15:55 Capillary blood glucose measurement by glucometer (mass/volume) 157 mg/dL 70-110 Capillary blood glucose measurement by glucometer (mass/volume) - 07/18/17 20:47 Capillary blood glucose measurement by glucometer (mass/volume) [...] Automated erythrocyte mean corpuscular hemoglobin concentration measurement (mass/volume) 36 g/dL 32-36 Automated erythrocyte distribution width ratio 11.8 % 10.0- 14.5 Automated blood platelet count (count/volume) 238 10*3/uL [...] Blood monocytes automated count (number/volume) 0.3 10*3 0.0- 1.0 Automated eosinophil count 0.0 10*3/uL 0.0-0.3 Automated [...] Serum or plasma aspartate aminotransferase measurement (enzymatic activity/volume) 33 U/L 5-34 Serum or plasma alanine aminotransferase measurement (enzymatic activity/volume) 51 U/L 0-55 Serum or plasma protein measurement (mass/volume) 7.6 g/dL 6.4-8.2 Serum or plasma albumin measurement (mass/volume) 3.3 g/dL 3.2-4.5 Capillary blood glucose measurement by glucometer (mass/volume) - 07/19/17 05:26 Capillary blood glucose measurement by glucometer (mass/volume) 290 mg/dL 70-110 Capillary blood glucose measurement by glucometer (mass/volume) - 07/19/17 10:45 Capillary blood glucose measurement by glucometer (mass/volume) 317 mg/dL 70-110 Capillary blood glucose measurement by glucometer (mass/volume) - 07/19/17 16:03 Capillary blood glucose measurement by glucometer (mass/volume) 267 mg/dL 70-110 Capillary blood glucose measurement by glucometer (mass/volume) - 07/19/17 20:55 Capillary blood glucose measurement by glucometer (mass/volume) [...] Automated erythrocyte mean corpuscular hemoglobin concentration measurement (mass/volume) 35 g/dL 32-36 Automated erythrocyte distribution width ratio 11.9 % 10.0- 14.5 Automated blood platelet count (count/volume) 240 10*3/uL [...] Blood monocytes automated count (number/volume) 0.7 10*3 0.0- 1.0 Automated eosinophil count 0.0 10*3/uL 0.0-0.3 Automated [...] Serum or plasma aspartate aminotransferase measurement (enzymatic activity/volume) 51 U/L 5-34 Serum or plasma alanine aminotransferase measurement (enzymatic activity/volume) 69 U/L 0-55 Serum or plasma protein measurement (mass/volume) 7.5 g/dL 6.4-8.2 Serum or plasma albumin measurement (mass/volume) 3.3 g/dL 3.2-4.5 Capillary blood glucose measurement by glucometer (mass/volume) - 07/20/17 05:27 Capillary blood glucose measurement by glucometer (mass/volume) 299 mg/dL 70-110 Capillary blood glucose measurement by glucometer (mass/volume) - 07/20/17 10:36 Capillary blood glucose measurement by glucometer (mass/volume) 314 mg/dL 70-110 Capillary blood glucose measurement by glucometer (mass/volume) - 07/20/17 16:06 Capillary blood glucose measurement by glucometer (mass/volume) 283 mg/dL 70-110 Sputum Gram stain - 08/19/17 08:00 GRAM STAIN SPUTUM RARE GRAM POSITIVE COCCI NR Bacteria identification in bronchial specimen by aerobe culture - 08/19/17 08:00 QUANTITY OF GROWTH Moderate Growth NR MRSA AGAR Screening test for MRSA is NEGATIVE (Final to follow) NR Bacteria identification in bronchial specimen by aerobe culture [id number] NR FTX;REPORTABLE FEW OBSERVED, SENSITIVITY REPORTED 3-29 NRG Mycobacterium species detection by organism specific culture - 08/19/17 08:00 Mycobacterium species detection by organism specific culture 4 weeks required for a preliminary negative culture report. [facility] Bacterial susceptibility panel - 08/19/17 08:00 Oxacillin susceptibility test by minimum inhibitory concentration <= NRG Gentamicin susceptibility test by minimum inhibitory concentration <= NRG Clindamycin susceptibility test by minimum inhibitory concentration <= NRG Erythromycin susceptibility test by minimum inhibitory concentration >= NRG Trimethoprim/sulfamethoxazole susceptibility test by minimum inhibitoryconcentration S NRG Vancomycin susceptibility test by minimum inhibitory concentration <= NRG Levofloxacin susceptibility test by minimum inhibitory [...] Automated erythrocyte mean corpuscular hemoglobin concentration measurement (mass/volume) 36 g/dL 32-36 Automated erythrocyte distribution width ratio 13.5 % 10.0- 14.5 Automated blood platelet count (count/volume) 163 10*3/uL [...] Blood monocytes automated count (number/volume) 1.3 10*3 0.0- 1.0 Automated eosinophil count 0.3 10*3/uL 0.0-0.3 Automated [...] Automated erythrocyte mean corpuscular hemoglobin concentration measurement (mass/volume) 35 g/dL 32-36 Automated erythrocyte distribution width ratio 13.3 % 10.0- 14.5 Automated blood platelet count (count/volume) 186 10*3/uL [...] Blood monocytes automated count (number/volume) 0.8 10*3 0.0- 1.0 Automated eosinophil count 0.2 10*3/uL 0.0-0.3 Automated [...] Serum or plasma aspartate aminotransferase measurement (enzymatic activity/volume) 21 U/L 5-34 Serum or plasma alanine aminotransferase measurement (enzymatic activity/volume) 44 U/L 0-55 Serum or plasma protein measurement (mass/volume) 7.2 g/dL 6.4-8.2 Serum or plasma albumin measurement (mass/volume) 4.3 g/dL 3.2-4.5 Complete urinalysis with reflex to culture - 09/22/17 09:10 Urine color determination YELLOW NRG Urine clarity determination CLEAR NRG Urine pH measurement by test strip 5 5-9 Specific gravity of urine by test strip 1.025 1.016-1.022 Urine protein assay by test strip, semi-quantitative [...] sediment leukocyte count by microscopy (number/high power field) [HPF] NRG Bacteria detection in urine sediment by light microscopy NEGATIVE NRG Squamous epithelial cells detection in urine sediment by light microscopy RARE NRG Crystals detection in urine sediment by light microscopy NONE NRG Casts detection in urine sediment by light microscopy NONE NRG Mucus detection in urine sediment by light microscopy NEGATIVE NRG Complete urinalysis with reflex to culture NO NRG Complete blood count (CBC) with automated white blood cell (WBC) differential - 05/21/18 16:45 Blood leukocytes automated count (number/volume) 6.8 10*3/uL 4.3-11.0 Blood erythrocytes automated count (number/volume) 4.76 10*6/uL 4.35-5.85 Venous blood hemoglobin measurement (mass/volume) 14.9 g/dL 13.3-17.7 Blood hematocrit (volume fraction) 44 % 40-54 Automated erythrocyte mean corpuscular volume 93 [foz_us] 80-99 Automated erythrocyte mean corpuscular hemoglobin (mass per erythrocyte) 31 pg 25-34 Automated erythrocyte mean corpuscular hemoglobin concentration measurement (mass/volume) 34 g/dL 32-36 Automated erythrocyte distribution width ratio 13.3 % 10.0- 14.5 Automated blood platelet count (count/volume) 112 10*3/uL 130-400 Automated blood platelet mean volume measurement 11.1 [foz_us] 7.4-10.4 Automated blood neutrophils/100 leukocytes 71 % 42-75 Automated blood lymphocytes/100 leukocytes 10 % 12-44 Blood monocytes/100 leukocytes 17 % 0-12 Automated blood eosinophils/100 leukocytes 1 % 0-10 Automated blood basophils/100 leukocytes 1 % 0-10 Blood neutrophils automated count (number/volume) 4.8 10*3 1.8-7.8 Blood lymphocytes automated count (number/volume) 0.7 10*3 1.0-4.0 Blood monocytes automated count (number/volume) 1.2 10*3 0.0- 1.0 Automated eosinophil count 0.1 10*3/uL 0.0-0.3 Automated blood basophil count (count/volume) 0.0 10*3/uL 0.0-0.1 Comprehensive metabolic panel - 05/21/18 16:45 Serum or plasma sodium measurement (moles/volume) 136 mmol/L 135-145 Serum or plasma potassium measurement (moles/volume) 4.1 mmol/L 3.6-5.0 Serum or plasma chloride measurement (moles/volume) 100 mmol/L 98-107 Carbon dioxide 23 mmol/L 21-32 Serum or plasma anion gap determination (moles/volume) 13 mmol/L 5-14 Serum or plasma urea nitrogen measurement (mass/volume) 21 mg/dL 7-18 Serum or plasma creatinine measurement (mass/volume) 1.50 mg/dL 0.60-1.30 Serum or plasma urea nitrogen/creatinine mass ratio 14 NRG Serum or plasma creatinine measurement with calculation of estimated glomerular filtration rate 49 NRG Serum or plasma glucose measurement (mass/volume) 254 mg/dL 70-105 Serum or plasma calcium measurement (mass/volume) 9.0 mg/dL 8.5-10.1 Serum or plasma total bilirubin measurement (mass/volume) 0.4 mg/dL 0.1-1.0 Serum or plasma alkaline phosphatase measurement (enzymatic activity/volume) 60 U/L 40-136 Serum or plasma aspartate aminotransferase measurement (enzymatic activity/volume) 64 U/L 5-34 Serum or plasma alanine aminotransferase measurement (enzymatic activity/volume) 66 U/L 0-55 Serum or plasma protein measurement (mass/volume) 7.0 g/dL 6.4-8.2 Serum or plasma albumin measurement (mass/volume) 3.8 g/dL 3.2-4.5 CALCIUM CORRECTED 9.2 mg/dL 8.5-10.1 Blood lactic acid measurement (moles/volume) - 05/21/18 16:45 Blood lactic acid measurement (moles/volume) 2.04 mmol/L 0.50- 2.00 Bacterial blood culture - 05/21/18 16:45 Bacterial blood culture NG NRG Bacterial blood culture - 05/21/18 16:50 Bacterial blood culture NG NRG Serum or plasma lactate measurement (moles/volume) - 05/21/18 18:50 Serum or plasma lactate measurement (moles/volume) 1.56 mmol/L 0.50-2.00 Serum or plasma lithium measurement (moles/volume) - 05/21/18 19:55 BNP level < pg/mL <100.0 Serum or plasma troponin i.cardiac measurement (mass/volume) - 05/21/18 19:55 Serum or plasma troponin i.cardiac measurement (mass/volume) < ng/mL <0.30 Capillary blood glucose measurement by glucometer (mass/volume) - 05/21/18 21:35 Capillary blood glucose measurement by glucometer (mass/volume) 270 mg/dL 70-110 Influenza virus A and B antigen detection - 05/22/18 01:55 CALL POSITIVES (F1 HELP) CALLED TO ZAINA IN ICU@[id number] NRG FLU RESULT POSITIVE FOR INFLUENZA A ANTIGEN, NEG FOR B ANTIGEN, BY IA NRG Complete blood count (CBC) with automated white blood cell (WBC) differential - 05/22/18 04:09 Blood leukocytes automated count (number/volume) 4.9 10*3/uL 4.3-11.0 Blood erythrocytes automated count (number/volume) 4.34 10*6/uL 4.35-5.85 Venous blood hemoglobin measurement (mass/volume) 13.9 g/dL 13.3-17.7 Blood hematocrit (volume fraction) 41 % 40-54 Automated erythrocyte mean corpuscular volume 93 [foz_us] 80-99 Automated erythrocyte mean corpuscular hemoglobin (mass per erythrocyte) 32 pg 25-34 Automated erythrocyte mean corpuscular hemoglobin concentration measurement (mass/volume) 34 g/dL 32-36 Automated erythrocyte distribution width ratio 13.5 % 10.0- 14.5 Automated blood platelet count (count/volume) 105 10*3/uL 130-400 Automated blood platelet mean volume measurement 11.0 [foz_us] 7.4-10.4 Automated blood neutrophils/100 leukocytes 65 % 42-75 Automated blood lymphocytes/100 leukocytes 16 % 12-44 Blood monocytes/100 leukocytes 16 % 0-12 Automated blood eosinophils/100 leukocytes 2 % 0-10 Automated blood basophils/100 leukocytes 0 % 0-10 Blood neutrophils automated count (number/volume) 3.2 10*3 1.8-7.8 Blood lymphocytes automated count (number/volume) 0.8 10*3 1.0-4.0 Blood monocytes automated count (number/volume) 0.8 10*3 0.0- 1.0 Automated eosinophil count 0.1 10*3/uL 0.0-0.3 Automated blood basophil count (count/volume) 0.0 10*3/uL 0.0-0.1 Whole blood basic metabolic panel - 05/22/18 04:09 Serum or plasma sodium measurement (moles/volume) 139 mmol/L 135-145 Serum or plasma potassium measurement (moles/volume) 3.6 mmol/L 3.6-5.0 Serum or plasma chloride measurement (moles/volume) 106 mmol/L 98-107 Carbon dioxide 19 mmol/L 21-32 Serum or plasma anion gap determination (moles/volume) 14 mmol/L 5-14 Serum or plasma urea nitrogen measurement (mass/volume) 19 mg/dL 7-18 Serum or plasma creatinine measurement (mass/volume) 1.17 mg/dL 0.60-1.30 Serum or plasma urea nitrogen/creatinine mass ratio 16 NRG Serum or plasma creatinine measurement with calculation of estimated glomerular filtration rate > NRG Serum or plasma glucose measurement (mass/volume) 211 mg/dL 70-105 Serum or plasma calcium measurement (mass/volume) 8.4 mg/dL 8.5-10.1 Serum or plasma phosphate measurement (mass/volume) - 05/22/18 04:09 Serum or plasma phosphate measurement (mass/volume) 3.7 mg/dL 2.3-4.7 Magnesium - 05/22/18 04:09 Magnesium 1.6 mg/dL 1.8-2.4 Serum or plasma creatine kinase measurement (enzymatic activity/volume) - 05/22/18 04:09 Serum or plasma creatine kinase measurement (enzymatic activity/volume) 815 U/L 30-200 Complete urinalysis with reflex to culture - 05/22/18 08:40 Urine color determination YELLOW NRG Urine clarity determination CLEAR NRG Urine pH measurement by test strip 5 5-9 Specific gravity of urine by test strip 1.025 1.016-1.022 Urine protein assay by test strip, semi-quantitative 3+ NEGATIVE Urine glucose detection by automated test strip 3+ NEGATIVE Erythrocytes detection in urine sediment by light microscopy 1+ NEGATIVE Urine ketones detection by automated test strip NEGATIVE NEGATIVE Urine nitrite detection by test strip NEGATIVE NEGATIVE Urine total bilirubin detection by test strip NEGATIVE NEGATIVE Urine urobilinogen measurement by automated test strip (mass/volume) NORMAL NORMAL Urine leukocyte esterase detection by dipstick 2+ NEGATIVE Automated urine sediment erythrocyte count by microscopy (number/high power field) NONE NRG Automated urine sediment leukocyte count by microscopy (number/high power field) [HPF] NRG Bacteria detection in urine sediment by light microscopy TRACE NRG Squamous epithelial cells detection in urine sediment by light microscopy 2-5 NRG Crystals detection in urine sediment by light microscopy NONE NRG Casts detection in urine sediment by light microscopy NONE NRG Mucus detection in urine sediment by light microscopy NEGATIVE NRG Complete urinalysis with reflex to culture NO NRG Capillary blood glucose measurement by glucometer (mass/volume) - 05/22/18 16:15 Capillary blood glucose measurement by glucometer (mass/volume) 332 mg/dL 70-110 Capillary blood glucose measurement by glucometer (mass/volume) - 05/22/18 21:22 Capillary blood glucose measurement by glucometer (mass/volume) 266 mg/dL 70-110 Complete blood count (CBC) with automated white blood cell (WBC) differential - 05/23/18 05:05 Blood leukocytes automated count (number/volume) 6.6 10*3/uL 4.3-11.0 Blood erythrocytes automated count (number/volume) 4.34 10*6/uL 4.35-5.85 Venous blood hemoglobin measurement (mass/volume) 13.5 g/dL 13.3-17.7 Blood hematocrit (volume fraction) 40 % 40-54 Automated erythrocyte mean corpuscular volume 92 [foz_us] 80-99 Automated erythrocyte mean corpuscular hemoglobin (mass per erythrocyte) 31 pg 25-34 Automated erythrocyte mean corpuscular hemoglobin concentration measurement (mass/volume) 34 g/dL 32-36 Automated erythrocyte distribution width ratio 13.2 % 10.0- 14.5 Automated blood platelet count (count/volume) 119 10*3/uL 130-400 Automated blood platelet mean volume measurement 11.0 [foz_us] 7.4-10.4 Automated blood neutrophils/100 leukocytes 87 % 42-75 Automated blood lymphocytes/100 leukocytes 6 % 12-44 Blood monocytes/100 leukocytes 7 % 0-12 Automated blood eosinophils/100 leukocytes 0 % 0-10 Automated blood basophils/100 leukocytes 0 % 0-10 Blood neutrophils automated count (number/volume) 5.8 10*3 1.8-7.8 Blood lymphocytes automated count (number/volume) 0.4 10*3 1.0-4.0 Blood monocytes automated count (number/volume) 0.5 10*3 0.0- 1.0 Automated eosinophil count 0.0 10*3/uL 0.0-0.3 Automated blood basophil count (count/volume) 0.0 10*3/uL 0.0-0.1 Comprehensive metabolic panel - 05/23/18 05:05 Serum or plasma sodium measurement (moles/volume) 139 mmol/L 135-145 Serum or plasma potassium measurement (moles/volume) 4.3 mmol/L 3.6-5.0 Serum or plasma chloride measurement (moles/volume) 107 mmol/L 98-107 Carbon dioxide 19 mmol/L 21-32 Serum or plasma anion gap determination (moles/volume) 13 mmol/L 5-14 Serum or plasma urea nitrogen measurement (mass/volume) 24 mg/dL 7-18 Serum or plasma creatinine measurement (mass/volume) 1.10 mg/dL 0.60-1.30 Serum or plasma urea nitrogen/creatinine mass ratio 22 NRG Serum or plasma creatinine measurement with calculation of estimated glomerular filtration rate > NRG Serum or plasma glucose measurement (mass/volume) 293 mg/dL 70-105 Serum or plasma calcium measurement (mass/volume) 8.8 mg/dL 8.5-10.1 Serum or plasma total bilirubin measurement (mass/volume) 0.4 mg/dL 0.1-1.0 Serum or plasma alkaline phosphatase measurement (enzymatic activity/volume) 50 U/L 40-136 Serum or plasma aspartate aminotransferase measurement (enzymatic activity/volume) 59 U/L 5-34 Serum or plasma alanine aminotransferase measurement (enzymatic activity/volume) 64 U/L 0-55 Serum or plasma protein measurement (mass/volume) 6.8 g/dL 6.4-8.2 Serum or plasma albumin measurement (mass/volume) 3.8 g/dL 3.2-4.5 CALCIUM CORRECTED 9.0 mg/dL 8.5-10.1 Vancomycin trough - 05/23/18 05:05 Vancomycin trough 14.9 ug/mL 10.0-20.0 Capillary blood glucose measurement by glucometer (mass/volume) - 05/23/18 11:05 Capillary blood glucose measurement by glucometer (mass/volume) 295 mg/dL 70-110 Encounters ACCT No. Visit Date/Time Discharge Status Pt. Type Provider Facility Loc./Unit Complaint [id number] 10/29/2018 21:00:00 10/30/2018 06:31:00 DIS Outpatient AMANDA PRINCE APRN [facility] SLEEP CPAP VENTILATION TREATMENT NOT TOLERATED [id number] 07/12/2018 07:56:00 07/12/2018 23:59:59 CLS Outpatient AMANDA PRINCE APRN [facility] RAD NOCTURNAL HYPOXEMIA, PNEUMONIA, DYSPNEA [id number] 06/22/2018 13:08:00 06/22/2018 23:59:59 CLS Outpatient AMANDA PRINCE APRN [facility] RAD UNSPECIFIED BACTERIAL PNEUMONIA [id number] 06/03/2018 12:16:00 06/03/2018 23:59:59 CLS Preadmit JORGE LIND [facility] REHAB NECK PAIN [id number] 05/21/2018 16:35:00 05/23/2018 14:51:00 DIS Inpatient IRINEO GONSALEZ DO [facility] 4TH PNEUMONIA [id number] 04/06/2018 20:52:00 04/07/2018 06:22:00 DIS Outpatient AMANDA PRINCE APRN [facility] SLEEP SLEEP APNEA,NOCTURNAL HYPOXEMIA [id number] 04/02/2018 07:45:00 04/02/2018 11:42:00 DIS Emergency TANIYA LYNCH, IVAN Erazo [facility] ER HERNIA [id number] 03/30/2018 09:25:00 03/30/2018 23:59:59 CLS Outpatient BERNIE OLIVER MD [facility] RAD THYROID NODULE [id number] 01/27/2018 21:00:00 01/28/2018 06:30:00 DIS Outpatient AMANDA PRINCE APRN [facility] SLEEP CPAP VENTILATION TREATMENT NOT TOLERATED [id number] 01/20/2018 10:18:00 01/20/2018 13:25:00 DIS Outpatient MOISÉS LOUIS MD [facility] ENDO HX POLYPS [id number] 01/13/2018 05:39:00 01/13/2018 23:59:59 CLS Outpatient MOISÉS LOUIS MD [facility] PREOP COLONOSCOPY [id number] 10/08/2017 10:28:00 10/08/2017 23:59:59 CLS Outpatient BERNIE OLIVER MD [facility] RAD BILATERAL THYROID NODULES [id number] 10/06/2017 12:41:00 10/06/2017 23:59:59 CLS Outpatient YOLI MALONE [facility] RAD M79.671 [id number] 09/22/2017 08:53:00 09/22/2017 10:47:00 DIS Emergency AMARILIS LYNCH, JORGE Dewey [facility] ER PAIN IN LOWER RIGHT BACK AND SIDE [id number] 09/16/2017 21:09:00 09/17/2017 06:45:00 DIS Outpatient AMANDA PRINCE APRN [facility] SLEEP G47.30 SLEEP APNEA [id number] 09/15/2017 08:48:00 09/15/2017 23:59:59 CLS Outpatient AMANDA PRINCE APRN [facility] RAD R91.8,J18.9 [id number] 08/20/2017 15:37:00 08/20/2017 23:59:59 CLS Outpatient AMANDA PRINCE UNIX ADMINISTRATOR [facility] RAD J18.9,R91.8 [id number] 08/19/2017 06:51:00 08/19/2017 23:59:59 CLS Outpatient BIANCA CARR DO [facility] ENDO LUNG MASS/PNEUMONIA/DYSPNEA [id number] 08/17/2017 14:00:00 08/17/2017 14:57:00 DIS Outpatient BIANCA CARR DO [facility] PREOP BRONCHOSCOPY [id number] 08/05/2017 15:26:00 08/05/2017 23:59:59 CLS Outpatient IRINEO GONSALEZ DO [facility] RT COUGH [id number] 08/05/2017 08:45:00 08/05/2017 23:59:59 CLS Outpatient WALLACE STEPHENSON IRINEO [facility] RAD THYROID NODULE E04.1 [id number] 07/28/2017 07:25:00 07/28/2017 23:59:59 CLS Outpatient WALLACE STEPHENSON IRINEO [facility] RAD J15.20 STAPHYLOCOCCAL PNEUMONIA [id number] 07/15/2017 15:58:00 07/20/2017 16:34:00 DIS Inpatient LUCI SPARKS DO [facility] 4TH RLL PNUEMONIA [id number] 02/13/2017 08:07:00 02/13/2017 11:02:00 DIS Outpatient TALITA ALLEN MD [facility] REHAB R SHOULDER RCT [id number] 06/05/2016 14:37:00 06/05/2016 23:59:59 CLS Outpatient LUCI SPARKS DO [facility] RAD PAIN IN RLQ, HX OF KIDNEY STONES [id number] 04/09/2016 11:15:00 04/09/2016 23:59:59 CLS Outpatient FAZAL DO, CHANDROUTIE [facility] RAD ABD PAIN [id number] 04/03/2016 15:13:00 04/03/2016 23:59:59 CLS Outpatient FAZAL DO, CHANDROUTIE [facility] LAB ABD PAIN PREP FOR CT [id number] 04/26/2015 07:44:00 04/26/2015 10:20:00 DIS Outpatient FAZAL DO, CHANDROUTIE [facility] SDC MULTIPLE ULCERS [id number] 04/24/2015 05:36:00 04/24/2015 23:59:59 CLS Outpatient FAZAL DO, CHANDROUTIE [facility] PREOP MULTIPLE ULCERS [id number] 04/05/2015 05:41:00 04/05/2015 23:59:59 CLS Outpatient FAZAL DO, CHANDROUTIE [facility] PREOP MULTIPLE ULCERS [id number] 01/27/2015 23:21:00 01/29/2015 14:50:00 DIS Inpatient FAZAL DO, CHANDROUTIE [facility] SURGICAL SMALL BOWEL OBSTRUCTION [id number] 01/17/2015 07:26:00 01/18/2015 16:20:00 DIS Inpatient FAZAL DO, CHANDROUTIE [facility] SURGICAL ABDOMINAL PAIN [id number] 01/09/2015 09:44:00 01/09/2015 23:59:59 CLS Outpatient FAZAL DO, CHANDROUTIE [facility] PREOP ABDOMINAL PAIN [id number] 12/26/2014 10:04:00 12/26/2014 13:10:00 DIS Outpatient FAZAL DO, CHANDROUTIE [facility] SDC ABDOMINAL DISTENSION; FAMILY HX [facility] [id number] 12/21/2014 06:35:00 12/21/2014 23:59:59 CLS Outpatient FAZAL DO, CHANDROUTIE [facility] PREOP ABNORMAL DISTORATION; FAMILY HX [facility]ER [id number] 12/04/2014 02:17:00 12/08/2014 16:00:00 DIS Inpatient LIDIA DIEHL DO [facility] SURGICAL SMALL BOWEL OBSTRUCTION [id number] 03/30/2014 08:54:00 03/31/2014 17:00:00 DIS Outpatient LIDIA DIEHL DO [facility] SDC VENTAL HERNIA [id number] 03/28/2014 11:12:00 03/28/2014 23:59:59 CLS Outpatient FAZAL LIDIA [facility] PREOP VENTRAL HERNIA [id number] 01/09/2014 14:53:00 01/09/2014 23:59:59 CLS Outpatient NATALYA LYNCH, HILDA Alcaraz [facility] LAB KIDNEY LESIONS,HYPERLIPADEMA,CKD [id number] 12/28/2013 15:17:00 12/28/2013 23:59:59 CLS Outpatient LUCI SPARKS DO [facility] RAD DROPPED RAMP RT FOOT [id number] 05/28/2013 07:28:00 06/01/2013 13:19:00 DIS Inpatient FAZAL DO LIDIA [facility] SURGICAL SMALL BOWEL OBSTRUCTION [id number] 05/11/2013 11:18:00 05/11/2013 23:59:59 CLS Outpatient LUCI SPARKS DO [facility] RAD CELLULITTIS LT WRIST LAST 2 WEEKS [id number] 01/24/2013 09:47:00 01/24/2013 23:59:59 CLS Outpatient [id number] 10/28/2012 16:01:00 10/28/2012 23:59:59 CLS Outpatient LUCI SPARKS DO [facility] LAB CHEST PAINS [id number] 09/22/2012 01:30:00 09/24/2012 13:35:00 DIS Inpatient LUCI SPARKS DO [facility] 4TH INTRACTABLE RUQ ABD PAIN/CVA [id number] 03/06/2012 17:36:00 Document Registration [id number] 11/21/2011 11:11:00 Document Registration [id number] 11/13/2011 15:19:00 Document Registration [id number] 07/24/2011 17:11:00 Document Registration [id number] 05/30/2011 20:53:00 Document Registration [id number] 01/15/2011 11:32:00 Document Registration [id number] 12/14/2010 01:00:00 Document Registration [id number] 12/07/2010 14:00:00 Document Registration
--- NOTE | 2018-11-21 18:50 | NUR ---
Recieved report from SYD Phan to assume care of pt @ this time.
--- NOTE | 2018-11-21 19:00 | NUR ---
assumed care of this patient at this time from Bruce RN, introduced self to patient, call light in reach, monitoring maintained.
[2018-11-21] MEDS ORDERED: ACETAMINOPHEN 500 MG TAB (TYLENOL) PO STA (19:29)
--- NOTE | 2018-11-21 19:36 | ED EENT ---
History of Present Illness General Chief Complaint: Ear Problems Stated Complaint: L EAR PAIN/SORE THROAT/DIZZY Nursing Triage Note: PT PRESENTS TO THE ER VIA AMBULATORY TO RM 5 WITH COMPLAINTS OF LEFT EAR PAIN SINCE THURSDAY. PT ALSO STATES HIS CHEST HAS BEEN CONGESTED FOR 2 WEEKS. Source: patient, spouse Exam Limitations: no limitations History of Present Illness Date Seen by Provider: Nov 21, 2018 Time Seen by Provider: 19:12 Allergies and Home Medications Allergies Coded Allergies: No Known Drug Allergies (Unverified , 11/21/18) Home Medications Albuterol Sulfate 1 Puff Puff, 2 PUFF IH Q4H PRN for SHORTNESS OF BREATH, (Reported) 1 PUFF = 90 MCG Allopurinol 300 Mg Tablet, 300 MG PO DAILY, (Reported) Ascorbic Acid 500 Mg Tablet, 1,000 MG PO BID, (Reported) Baclofen 10 Mg Tablet, 10 MG PO TID PRN for SPASMS, (Reported) Gabapentin 300 Mg Capsule, 1,500 MG PO HS, (Reported) TAKES 5 (300MG) CAPSULES Insulin Glargine,Hum.rec.anlog 300 Unit/1 Ml Insuln.pen, 80 UNIT SQ HS, (Reported) Insulin Lispro 100 Unit/1 Ml Vial, 45 UNIT SQ AC, (Reported) Metoprolol Tartrate 25 Mg Tablet, 25 MG PO BID, (Reported) Montelukast Sodium 10 Mg Tablet, 10 MG PO HS, (Reported) [place]-3/Dha/Epa/Fish Oil 1 Each Capsule.dr, 2,800 TAB PO BID, (Reported) TAKES 2 (1400MG) CAPSULES Pitavastatin Calcium 4 Mg Tablet, 4 MG PO DAILY, (Reported) Prednisone 10 Mg Tab.ds.pk, 10 MG PO DAILY Take 6 tabs(60mg)daily,decrease by 1 tab(10MG)daily. Prescribed by: IRINEO GONSALEZ on 05/23/18 1256 Promethazine HCl 25 Mg Tablet, 25 MG PO Q6H PRN for NAUSEA/VOMITING-2ND LINE, (Reported) Sitagliptin Phosphate 100 Mg Tablet, 100 MG PO DAILY, (Reported) Ubidecarenone 100 Mg Capsule, 100 MG PO DAILY, (Reported) TAKES ALONG WITH 200MG CAPSULE FOR A TOTAL DAILY DOSE OF 300MG Ubidecarenone 200 Mg Capsule, 200 MG PO DAILY, (Reported) TAKEA ALONG WITH 100MG CAPSULE FOR A TOTAL DAILY DOSE OF 300MG Past Ukjsflb-Knfghm-Yxslwp Hx Patient Social History Alcohol Use: Denies Use Alcohol Beverage of Choice: Beer, [place] Recreational Drug Use: No Smoking Status: Never a Smoker Type Used: Smokeless Tobacco 2nd Hand Smoke Exposure: No Recent Foreign Travel: No Contact w/Someone Who Travel: No Recent Infectious Disease Expo: No Recent Hopitalizations: No Immunizations Up To Date Tetanus Booster (TDap): Unknown PED Vaccines UTD: Yes Date of Pneumonia Vaccine: Feb 24, 2017 Date of Influenza Vaccine: Feb 19, 2018 Seasonal Allergies Seasonal Allergies: Yes Past Medical History Surgeries: Yes (LITHOTRIPSY, BACK X4, L KNEE ACL REPAIR, WISDOM TEETH,) Abdominal, Adenoidectomy, Appendectomy, Gallbladder, Orthopedic, Tonsillectomy Respiratory: Yes Pneumonia, Sleep Apnea Currently Using CPAP: Yes Currently Using BIPAP: No Cardiac: Yes (STRESS TEST COUPLE YEARS AGO AT [facility]) High Cholesterol, Hypertension Neurological: Yes Headaches /Migraines Reproductive Disorders: No Sexually Transmitted Disease: No HIV/AIDS: No Genitourinary: Yes Kidney Stones, Renal Failure Gastrointestinal: Yes (ABDOMINAL ADHESIONS, FREQUENT SMALL BOWEL OBSTRUCTIONS) Abdominal Hernia, Obstructive Bowel, Polyps Musculoskeletal: Yes Degenerate Disk Disease, Arthritis, Fibromyalgia, Rheumatoid Arthritis, Back Injury, Chronic Back Pain, Fractures, Gout Endocrine: Yes Diabetes, Insulin dep HEENT: No Tonsilitis Loss of Vision: Bilateral Hearing Impairment: Denies Cancer: No Psychosocial: Yes Anxiety, Depression Integumentary: No Blood Disorders: No Adverse Reaction/Blood Tranf: No (N/A) Family Medical History Abdominal aortic aneurysm 09 BROTHER Cancer 03 MOTHER Cancer of colon 03 MOTHER 09 SISTER 19 MOTHER FH: COPD (chronic obstructive pulmonary disease) 19 FATHER FH: leukemia 09 SISTER 19 MOTHER FHx: stroke 19 FATHER Family history: Diabetes mellitus 09 BROTHER 09 SISTER 09 SISTER 09 SISTER Family history: Gastrointestinal disease 03 MOTHER 09 BROTHER Physical Exam Vital Signs Vital Signs - First Documented 11/21/18 17:18 Temp 97.1 Pulse 90 Resp 18 B/P (MAP) 154/93 (113) Pulse Ox 95 O2 Delivery Room Air Height, Weight, BMI Height: 5'11.00" Weight: 260lbs. 8.0oz. 117.588519lo; 36.9 BMI Method:Stated Progress/Results/Core Measures Results/Orders My Orders Orders - ANGEL WILLOUGHBY Chest Pa/Lat (2 View) (11/21/18 19:29) Acetaminophen Tablet (Tylenol Tablet) (11/21/18 19:29) Rx-Doxycycline Tablet (Rx-Vibramycin Tab (11/21/18 19:51) Prednisone Tablet (Deltasone Tablet) (11/21/18 20:00) Rx-Gentamicin Ophth Soln (Rx-Gentamicin (11/21/18 19:51) Vital Signs/I&O 11/21/18 17:18 Temp 97.1 Pulse 90 Resp 18 B/P (MAP) 154/93 (113) Pulse Ox 95 O2 Delivery Room Air Blood Pressure Mean: 113 Departure Impression Primary Impression: Upper respiratory infection Disposition: HOME, SELF-CARE Condition: Improved Departure-Patient Inst. Decision time for Depature: 19:53 Referrals: IRINEO GONSALEZ DO (PCP/Family) Primary Care Physician Patient Instructions: Sinusitis, Adult (DC), Acute Bronchitis, Adult (DC) Add. Discharge Instructions: All discharge instructions reviewed with patient and/or family. Voiced understanding. Medications as instructed. Use inhalers as instructed by Dr. Pineda. Juvg-lpo-ixwbudw Coricidin or Mucinex as needed for symptomatic relief. Afrin nasal spray ybva-klr-[id number] as needed for nasal congestion. Follow-up with Dr. Gonsalez as an outpatient for recheck. Return in the emergency department for worsened symptoms or any other concerns. Scripts Prednisone (Prednisone) 20 Mg Tab 20 MG PO BID, #6 TAB 0 Refills Prov: ANGEL WILLOUGHBY 11/21/18 Doxycycline Hyclate (Doxycycline Hyclate) 100 Mg Tablet 100 MG PO BID, #14 TAB 0 Refills Prov: ANGEL WILLOUGHBY 11/21/18 ANGEL WILLOUGHBY Nov 21, 2018 19:36
--- NOTE | 2018-11-21 19:46 | Diagnostic Imaging Report ---
INDICATION: Cough and congestion. TIME OF EXAM: 7:38 p.m. COMPARISON: Correlation is made with prior chest from 06/22/2018. FINDINGS: Heart size is stable. The lungs are clear. No infiltrates are seen. The pulmonary vascularity is within normal limits. There is no effusion or pneumothorax. Postop changes in the lower cervical spine are noted. IMPRESSION: No acute cardiopulmonary process is detected. Dictated by: Dictated on workstation # [id number]
[2018-11-21] MEDS ORDERED: RX-DOXYCYCLINE 100 MG (VIBRAMYCIN) TAB PPK#2 PO STA (19:51)
[2018-11-21] MEDS ORDERED: RX-GENTAMICIN SULFATE 0.3% OP 5 ML BTL OP STA (19:51)
[2018-11-21] MEDS ORDERED: GENTAMICIN 0.3% OPHTH SOLN 5 ML ONE (19:55)
[2018-11-21] MEDS ORDERED: PRD20T PO (19:56)
[2018-11-21] MEDS ORDERED: DOXY100T2 PO (19:56)
[2018-11-21] MEDS ORDERED: RX-ONDANSETRON 4 MG ODT (ZOFRAN) PPK #4 ONE (19:58)
[2018-11-21] MEDS ORDERED: predniSONE 20 MG TAB PO ONE (20:00)
[2018-11-21] MEDS ORDERED: RX-ONDANSETRON 4 MG ODT (ZOFRAN) PPK #4 PO STA (20:02)
[2018-11-21] MEDS ORDERED: ONDA8TAB13 PO (20:02)
[2018-11-21 20:18] VITALS: BP 139/104
== END 2018-11-21 20:21 | disposition home or self-care (01) ==
LOC: EDUNIT# 17:12 → ER 17:13
DX: J06.9 Acute upper respiratory infection, unspecified (principal); G47.30 Sleep apnea, unspecified; I10 Essential (primary) hypertension; E78.00 Pure hypercholesterolemia, unspecified; G43.909 Migraine, unspecified, not intractable, without status migrainosus; M79.7 Fibromyalgia; M06.9 Rheumatoid arthritis, unspecified; E11.9 Type 2 diabetes mellitus without complications; F41.9 Anxiety disorder, unspecified; F32.9 Major depressive disorder, single episode, unspecified; Z80.0 Family history of malignant neoplasm of digestive organs; Z80.6 Family history of leukemia; Z86.011 Personal history of benign neoplasm of the brain; Z87.19 Personal history of other diseases of the digestive system; Z87.442 Personal history of urinary calculi; Z87.01 Personal history of pneumonia (recurrent); Z79.4 Long term (current) use of insulin; Z90.49 Acquired absence of other specified parts of digestive tract; Z90.89 Acquired absence of other organs
CPT/HCPCS: 71046

== ENCOUNTER → 2019-03-29 | Outpatient (CLI) | payer MEDICARE, OTHER ==
[~2019-03-29] MED LIST changes: +DOXY100T2 PO; +ONDA8TAB13 PO; +PRD20T PO
--- NOTE | 2019-03-29 14:39 | Diagnostic Imaging Report ---
INDICATION: Multinodular goiter. TECHNIQUE: Grayscale sonographic images of the thyroid gland. CORRELATION STUDY: 03/30/2018. FINDINGS: RIGHT LOBE: Enlarged, 6 x 2.6 x 2.9 cm. There is a rather sizable, 2.5 x 2.2 x 2.0 cm mass in the right lobe. This has mixed solid and cystic echotexture. A few microcalcifications are suggested. Margins are slightly indistinct. Previously measured 2.4 x 2.0 x 1.7 cm. LEFT LOBE: Enlarged 5.4 x 2.4 x 2.7 cm. Dominant, relatively isoechoic solid nodule is present at the superior pole measuring 2 x 1.4 x 1.3 cm, previously 1.6 x 1.5 x 1.4 cm, slightly increased in size. Hypoechoic nodule in the inferior pole 8 x 6 x 5 mm, not definitively present on prior study. Mixed echogenicity but predominantly solid. Small echogenic calcification in superior pole. Isthmus appears unremarkable. IMPRESSION: Enlarged thyroid glands and multiple masses. The dominant masses are stable to perhaps slightly increased in size. The dominant right lobe mass: TI-RADS category 4. Given classification and size, fine-needle aspiration would be recommended. However, aspiration/biopsy was performed in September 2017. Correlation with pathology results. The dominant left lobe mass: TI-RADS category 3. Dictated by: Dictated on workstation # [id number]
== END ==
LOC: RAD 11:40
PROVIDERS: ATTEND Otolaryngology Otolaryngology/Facial Plastic Surgery
DX: E04.2 Nontoxic multinodular goiter (principal)
CPT/HCPCS: 76536

== ENCOUNTER 2019-04-10 21:02 | Inpatient (IN) | payer MEDICARE, OTHER ==
[~2019-04-10] VITALS: Ht 180.3 cm; Wt 125.5 kg
[2019-04-10] MEDS: INSULIN GLARGINE SQ SCH (21:00)
[2019-04-10] MEDS ORDERED: ASPIRIN 81 MG CHEW (CHILDREN'S ASA) PO ONE (21:15)
[2019-04-10 21:25] LABS: BASOPHILS % (AUTO) 0 % (0-10); EOSINOPHILS # (AUTO) 0.1 10^3/uL (0.0-0.3); EOSINOPHILS % (AUTO) 2 % (0-10); HEMATOCRIT 47 % (40-54); HEMOGLOBIN 15.9 G/DL (13.3-17.7); LYMPHOCYTES # (AUTO) 1.8 X 10^3 (1.0-4.0); LYMPHOCYTES % (AUTO) 20 % (12-44); MEAN CORPUSCULAR HEMOGLOBIN 31 PG (25-34); MEAN CORPUSCULAR HGB CONC 34 G/DL (32-36); MEAN CORPUSCULAR VOLUME 91 FL (80-99); MEAN PLATELET VOLUME 11.1 FL (7.4-10.4); MONOCYTES % (AUTO) 11 % (0-12); NEUTROPHILS # (AUTO) 6.1 X 10^3 (1.8-7.8); NEUTROPHILS % (AUTO) 68 % (42-75); PLATELET COUNT 160 10^3/uL (130-400); RED CELL DISTRIBUTION WIDTH 13.9 % (10.0-14.5); WHITE BLOOD COUNT 8.9 10^3/uL (4.3-11.0)
[2019-04-10] MEDS ORDERED: LIDOCAINE 2% VISCOUS 15 ML UDC PO ONE (21:30)
[2019-04-10] MEDS ORDERED: ANTACID SUSP 30 ML UDC (MYLANTA) PO ONE (21:30)
[2019-04-10 21:37] LABS: PROTHROMBIN TIME PATIENT 13.2 SEC (12.2-14.7)
[2019-04-10 21:45] LABS: BILIRUBIN,TOTAL 0.5 MG/DL (0.1-1.0); CALCIUM 9.5 MG/DL (8.5-10.1); CREATININE SERUM 1.31 MG/DL (0.60-1.30); MAGNESIUM 1.5 MG/DL (1.6-2.4); POTASSIUM 4.1 MMOL/L (3.6-5.0); TOTAL PROTEIN 6.9 GM/DL (6.4-8.2)
--- NOTE | 2019-04-10 21:46 | ED Chest Pain ---
General Chief Complaint: Chest Pain Stated Complaint: CHEST PAIN History of Present Illness Date Seen by Provider: Apr 10, 2019 Time Seen by Provider: 21:06 Initial Comments 53-year-old male reports chest pain since approximately 2:00 this af ternoon with radiation to back, no jaw, neck or arm pain, He thought it was improving and then after dinner and the pain became worse. He tried taking Tums with no improvement in symptoms. He's had GERD in the past but had surgery for hiatal hernia and has not had GI symptoms since. No personal or family history of acute cardiac events, he has dyslipidemia and Dr. Gonsalez recently mentioned having him scheduled to see Dr. Núñez. History of sleep apnea, no compliant with use of CPAP. He denies nausea or vomiting, headache, or diaphoresis. He is a type II diabetic, continuous monitor, running 150-200s most days. 272 on admission. Timing/Duration: 4-6 hours Severity/Quality: moderate Location: substernal Radiation: back Activities at Onset: none Prior CP/Workup: no prior chest pain ASA po BELLOWS ASSEMBLER: No NTG SL BELLOWS ASSEMBLER: No Associated Symptoms: denies symptoms; No abdominal pain, No back pain, No diaphoresis, No dizziness, No edema, No fatigue, No fever/chills, No headache, No heartburn, No nausea/vomiting, No rash, No shortness of breath, No swelling/lump in chest, No syncope, No weakness Allergies and Home Medications Allergies Coded Allergies: No Known Drug Allergies (Unverified , 11/21/18) Home Medications Albuterol Sulfate 1 Puff Puff, 2 PUFF IH Q4H PRN for SHORTNESS OF BREATH, (Reported) 1 PUFF = 90 MCG Allopurinol 300 Mg Tablet, 300 MG PO DAILY, (Reported) Ascorbic Acid 500 Mg Tablet, 1,000 MG PO BID, (Reported) Baclofen 10 Mg Tablet, 10 MG PO TID PRN for SPASMS, (Reported) Doxycycline Hyclate 100 Mg Tablet, 100 MG PO BID Prescribed by: ANGEL WILLOUGHBY on 11/21/181955 Gabapentin 300 Mg Capsule, 1,500 MG PO HS, (Reported) TAKES 5 (300MG) CAPSULES Insulin Glargine,Hum.rec.anlog 300 Unit/1 Ml Insuln.pen, 80 UNIT SQ HS, (Reported) Insulin Lispro 100 Unit/1 Ml Vial, 45 UNIT SQ AC, (Reported) Metoprolol Tartrate 25 Mg Tablet, 25 MG PO BID, (Reported) Montelukast Sodium 10 Mg Tablet, 10 MG PO HS, (Reported) [place]-3/Dha/Epa/Fish Oil 1 Each Capsule.dr, 2,800 TAB PO BID, (Reported) TAKES 2 (1400MG) CAPSULES Ondansetron 8 Mg Tab.rapdis, 8 MG PO Q6H PRN for NAUSEA/VOMITING Prescribed by: ANGEL WILLOUGHBY on 11/21/182001 Pitavastatin Calcium 4 Mg Tablet, 4 MG PO DAILY, (Reported) Prednisone 10 Mg Tab.ds.pk, 10 MG PO DAILY Take 6 tabs(60mg)daily,decrease by 1 tab(10MG)daily. Prescribed by: IRINEO GONSALEZ on 05/23/181255 Prednisone 20 Mg Tab, 20 MG PO BID Prescribed by: ANGEL WILLOUGHBY on 11/21/181955 Promethazine HCl 25 Mg Tablet, 25 MG PO Q6H PRN for NAUSEA/VOMITING-2ND LINE, (Reported) Sitagliptin Phosphate 100 Mg Tablet, 100 MG PO DAILY, (Reported) Ubidecarenone 100 Mg Capsule, 100 MG PO DAILY, (Reported) TAKES ALONG WITH 200MG CAPSULE FOR A TOTAL DAILY DOSE OF 300MG Ubidecarenone 200 Mg Capsule, 200 MG PO DAILY, (Reported) TAKEA ALONG WITH 100MG CAPSULE FOR A TOTAL DAILY DOSE OF 300MG Patient Home Medication List Home Medication List Reviewed: Yes Review of Systems Review of Systems Constitutional: no symptoms reported, see HPI Respiratory: No Symptoms Reported, See HPI; Denies Cough, Denies SOA With Exertion, Denies SOA at Rest Cardiovascular: See HPI, Chest Pain Gastrointestinal: No Symptoms Reported, See HPI Musculoskeletal: no symptoms reported, see HPI All Other Systems Reviewed Negative Unless Noted: Yes Past Eeniqfm-Cpotak-Aswouh Hx Past Med/Social Hx: Reviewed Nursing Past Med/Soc Hx Patient Social History Alcohol Beverage of Choice: Beer, [place] Type Used: Smokeless Tobacco 2nd Hand Smoke Exposure: No Recent Foreign Travel: No Contact w/Someone Who Travel: No Recent Hopitalizations: No Immunizations Up To Date Tetanus Booster (TDap): Unknown PED Vaccines UTD: Yes Date of Pneumonia Vaccine: Feb 24, 2017 Date of Influenza Vaccine: Feb 19, 2018 Seasonal Allergies Seasonal Allergies: Yes Past Medical History Surgeries: Yes (LITHOTRIPSY, BACK X4, L KNEE ACL REPAIR, WISDOM TEETH,) Abdominal, Adenoidectomy, Appendectomy, Gallbladder, Orthopedic, Tonsillectomy Respiratory: Yes Pneumonia, Sleep Apnea Currently Using CPAP: Yes Currently Using BIPAP: No Cardiac: Yes (STRESS TEST COUPLE YEARS AGO AT [facility]) High Cholesterol, Hypertension Neurological: Yes Headaches /Migraines Reproductive Disorders: No Sexually Transmitted Disease: No HIV/AIDS: No Genitourinary: Yes Kidney Stones, Renal Failure Gastrointestinal: Yes (ABDOMINAL ADHESIONS, FREQUENT SMALL BOWEL OBSTRUCTIONS) Abdominal Hernia, Obstructive Bowel, Polyps Musculoskeletal: Yes Degenerate Disk Disease, Arthritis, Fibromyalgia, Rheumatoid Arthritis, Back Injury, Chronic Back Pain, Fractures, Gout Endocrine: Yes Diabetes, Insulin dep HEENT: No Tonsilitis Loss of Vision: Bilateral Hearing Impairment: Denies Cancer: No Psychosocial: Yes Anxiety, Depression Integumentary: No Blood Disorders: No Adverse Reaction/Blood Tranf: No (N/A) Family Medical History Abdominal aortic aneurysm 09 BROTHER Cancer 03 MOTHER Cancer of colon 03 MOTHER 09 SISTER 19 MOTHER FH: COPD (chronic obstructive pulmonary disease) 19 FATHER FH: leukemia 09 SISTER 19 MOTHER FHx: stroke 19 FATHER Family history: Diabetes mellitus 09 BROTHER 09 SISTER 09 SISTER 09 SISTER Family history: Gastrointestinal disease 03 MOTHER 09 BROTHER No Pertinent Family Hx Physical Exam Vital Signs Vital Signs - First Documented 04/10/19 21:06 Pulse 96 Resp 20 B/P (MAP) 146/99 (115) O2 Delivery Room Air Capillary Refill : Height, Weight, BMI Height: 5'11.00" Weight: 260lbs. 8.0oz. 117.323011ct; 36.9 BMI Method:Stated General Appearance: No Apparent Distress, WD/WN Neck: Full Range of Motion, Normal Inspection, Non Tender, Supple Respiratory: Chest Non Tender, Lungs Clear, Normal Breath Sounds Cardiovascular: Regular Rate, Rhythm, No Edema, No Murmur, Normal Peripheral Pulses Gastrointestinal: Normal Bowel Sounds, No Pulsatile Mass, Non Tender, Soft Extremity: Normal Capillary Refill, Normal Inspection, Normal Range of Motion, Non Tender, No Calf Tenderness Neurologic/Psychiatric: Alert, Oriented x3, No Motor/Sensory Deficits, Normal Mood/Affect Skin: Normal Color, Warm/Dry Progress/Results/Core Measures Results/Orders Lab Results Laboratory Tests Test 04/10/19 21:12 Range/Units White Blood Count 8.9 4.3-11.0 10^3/uL Red Blood Count 5.15 4.35-5.85 10^6/uL Hemoglobin 15.9 13.3-17.7 G/DL Hematocrit 47 40-54 % Mean Corpuscular Volume 91 80-99 FL Mean Corpuscular Hemoglobin 31 25-34 PG Mean Corpuscular Hemoglobin Concent 34 32-36 G/DL Red Cell Distribution Width 13.9 10.0-14.5 % Platelet Count 160 130-400 10^3/uL Mean Platelet Volume 11.1 H 7.4-10.4 FL Neutrophils (%) (Auto) 68 42-75 % Lymphocytes (%) (Auto) 20 12-44 % Monocytes (%) (Auto) 11 0-12 % Eosinophils (%) (Auto) 2 0-10 % Basophils (%) (Auto) 0 0-10 % Neutrophils # (Auto) 6.1 1.8-7.8 X 10^3 Lymphocytes # (Auto) 1.8 1.0-4.0 X 10^3 Monocytes # (Auto) 1.0 0.0-1.0 X 10^3 Eosinophils # (Auto) 0.1 0.0-0.3 10^3/uL Basophils # (Auto) 0.0 0.0-0.1 10^3/uL Prothrombin Time 13.2 12.2-14.7 SEC INR Comment 1.0 0.8-1.4 Activated Partial Thromboplast Time 31 24-35 SEC Sodium Level 138 135-145 MMOL/L Potassium Level 4.1 3.6-5.0 MMOL/L Chloride Level 103 98-107 MMOL/L Carbon Dioxide Level 23 21-32 MMOL/L Anion Gap 12 5-14 MMOL/L Blood Urea Nitrogen 19 H 7-18 MG/DL Creatinine 1.31 H 0.60-1.30 MG/DL Estimat Glomerular Filtration Rate 57 BUN/Creatinine Ratio 15 Glucose Level 296 H 70-105 MG/DL Calcium Level 9.5 8.5-10.1 MG/DL Corrected Calcium 9.5 8.5-10.1 MG/DL Magnesium Level 1.5 L 1.6-2.4 MG/DL Total Bilirubin 0.5 0.1-1.0 MG/DL Aspartate Amino Transf (AST/SGOT) 28 5-34 U/L Alanine Aminotransferase (ALT/SGPT) 48 0-55 U/L Alkaline Phosphatase 77 40-136 U/L Myoglobin 427.0 H 10.0-92.0 NG/ML Troponin I 0.107 H <0.028 NG/ML Total Protein 6.9 6.4-8.2 GM/DL Albumin 4.0 3.2-4.5 GM/DL My Orders Orders - ALDAIR ANAND Cbc With Automated Diff (04/10/19 21:06) Magnesium (04/10/19 21:06) Ekg Tracing (04/10/19 21:06) Cardiac Profile 1 (04/10/19 21:) Comprehensive Metabolic Panel (04/10/19 21:) Myoglobin Serum (04/10/19 21:06) Protime With Inr (04/10/19 21:) Partial Thromboplastin Time (04/10/19 21:) O2 (04/10/19 21:06) Monitor-Rhythm Ecg Trace Only (04/10/19 21:06) Ed Iv/Invasive Line Start (04/10/19 21:06) Aspirin Chewable Tablet (Baby Aspirin Ch (04/10/19 21:15) Chest Pa/Lat (2 View) (04/10/19 21:27) Lidocaine 2% Viscous 15 Ml (Xylocaine Vi (04/10/19 21:30) Antacid Suspension (Mylanta Suspension (04/10/19 21:30) Medications Given in ED Current Medications Medications Dose Ordered Sig/Lamin Route Start Time Stop Time Status Last Admin Dose Admin Al Hydrox/Mg Hydrox/Simethicone 30 ml ONCE ONCE PO 04/10/19 21:30 04/10/19 21:31 DC 04/10/19 21:49 30 ML Aspirin 324 mg ONCE ONCE PO 04/10/19 21:15 04/10/19 21:16 DC 04/10/19 21:13 324 MG Lidocaine HCl 15 ml ONCE ONCE PO 04/10/19 21:30 04/10/19 21:31 DC 04/10/19 21:49 15 ML Vital Signs/I&O 04/10/19 04/10/19 21:06 21:06 Pulse 96 Resp 20 B/P (MAP) 146/99 (115) O2 Delivery Room Air Progress Progress Note : Progress Note 2105 and seen and evaluated, EKG, chest x-ray, and labs ordered. Aspirin 324 mg orally. Reports pain 10, reports it has been improving since arriving to ED. 2129 EKG showed no acute findings, awaiting labs. Spoke to Dr. Quintero, agreed with assessment and plan. Patient denies any change in his chest pain, B/P stable 130s/80s/ [address] Núñez, agreed with non-STEMI, Nitro SL prn, Lovenox 1 mg/kg subcutaneous, and Nitro-Bid 1 inch tonight, no am dose. Admit to ICU. [address] Clifton, will admit for Dr. Gonsalez and consult Dr. Núñez. Spoke to patient and , he reports chest pain has improved after GI cocktail. Explained plans for admission and consult with Dr. Núñez tomorrow. 2229 Patient reports return for chest pain 12/01, will give Nitro 0.4 SL. 2244 Patient continues to report chest pain, 01/01 will give Morphine 2 mg IV. Repeat EKG. 2254 EKG shows no acute changes from initial one. Patient sitting up, Glucose 232, no dyspnea. 231 patient reports improvement of chest pain /. No complaints at this time, will transfer to ICU. Initial ECG Impression Date: Apr 10, 2019 Initial ECG Impression Time: 21:08 Initial ECG Rate: 92 Initial ECG Rhythm: Normal Sinus Initial ECG Intervals: Normal Initial ECG Intervals W[place] 144, QRSD 88, QT 376, QTc 466. [place] P 31, QRS 45, T -18. Initial ECG Impression: Normal Initial ECG Comparisson: Unchanged Comment Reviewed with Dr. Quintero, agreed with interpretation. EKG : EKG Time: 22:51 Rate: 87 Rhythm: Normal Sinus Intervals: Normal Intervals W[place] 156, QRSD 84, QT 356, QTC 429. [place] P 39, QRS 47, T -9 ECG Comparisson: Unchanged ECG Impression: Normal Diagnostic Imaging Diagonstic Imaging: Xray Plain Films/CT/US/NM/MRI: chest Comments NAME: LUCI MCMULLEN Arcelia [facility] REC#: [id number] PT STATUS: ADM Rosalina : 1965 PHYSICIAN: ALDAIR ANAND ADMIT DATE: 04/10/19/ICU Signed POSDate of Exam:04/10/19 CHEST PA/LAT (2 VIEW) INDICATION: Chest pain. EXAMINATION: PA and lateral chest at 9:35 p.m. FINDINGS: There is shallow inspiration. Allowing for this technical factor, the heart size is within normal limits and stable when compared to 11/21/2018. The lungs are clear. There is no evidence for failure, pneumonia or a pleural effusion. The mediastinum is not widened. The osseous structures are intact. The extensive postsurgical changes involving the cervical spine, seen previously, are again evident. IMPRESSION: There is no evidence for active disease. Dictated by: Dictated on workstation # [id number] Dict: 04/10/192155 Trans: 04/10/192225 [facility] [id number] Interpreted by: DIEUDONNE COPE MD Electronically signed by: DIEUDONNE COPE MD 04/10/192225 Reviewed: Reviewed by Me Departure Impression Primary Impression: Non-STEMI (non-ST elevated myocardial infarction) Additional Impression: Type 2 diabetes mellitus Qualified Codes: E11.9 - Type 2 diabetes mellitus without complications Disposition: ADMITTED INPATIENT Condition: Stable Admissions Decision to Admit Reason: Admit from ER (General) Decision to Admit/Date: Apr 10, 2019 Time/Decision to Admit Time: 22:00 Departure-Patient Inst. Referrals: IRINEO GONSALEZ DO (PCP/Family) Primary Care Physician Copy Copies To 1: IRINEO GONSALEZ DO; ROSS NÚÑEZ MD, AMY ARNP Apr 10, 2019 21:46 POS
--- NOTE | 2019-04-10 22:08 | Diagnostic Imaging Report ---
INDICATION: Chest pain. EXAMINATION: PA and lateral chest at 9:35 p.m. FINDINGS: There is shallow inspiration. Allowing for this technical factor, the heart size is within normal limits and stable when compared to 11/21/2018. The lungs are clear. There is no evidence for failure, pneumonia or a pleural effusion. The mediastinum is not widened. The osseous structures are intact. The extensive postsurgical changes involving the cervical spine, seen previously, are again evident. IMPRESSION: There is no evidence for active disease. Dictated by: Dictated on workstation # [id number]
[2019-04-10] MEDS ORDERED: NS IV 1000 ML 1,000 ML IV SCH (22:15)
[2019-04-10] MEDS ORDERED: inSUlin (REGULAR) HUMAN 1 UNIT/0.01 ML (CHARGE PER UNIT) SC STA (22:15)
[2019-04-10] MEDS ORDERED: NITROGLYCERIN 2% OINT 1 GM UNIT DOSE PACKET TOP STA (22:15)
[2019-04-10] MEDS ORDERED: ENOXAPARIN 60 MG/0.6 ML (LOVENOX) SYR SC ONE (22:30)
[2019-04-10] MEDS: NITROGLYCERIN 0.4 MG SL TABS BTL 25'S SL PRN (22:30)
[2019-04-10] MEDS ORDERED: morphine INJ 10 MG/ML 1ML (SYR OR VIAL) IVP STA (22:46)
--- NOTE | 2019-04-10 23:45 | NUR ---
LUCI KEMI admitted to room CU10-1, with an admitting diagnosis of CHEST PAIN, NON-STEMI, TYPE II DIABETES, SLEEP APNEA , on 04/10/19 from ED via WHEELCHAIR, accompanied by HOSPITAL STAFF. LUCI MCMULLEN introduced to surroundings, call light, bed controls, phone, TV, temperature control, lights, meal times, smoking policy, visitor policy, side rail policy, bathrooms and showers. Patient Rights given to patient in the handbook.LUCI MCMULLEN verbalizes understanding that [facility] is not responsible for the loss or damage to any personal effects or valuables that are kept in the patients posession during their hospitalization. LUCI MCMULLEN verbalizes understanding of Interdisciplinary Patient Education. Patient and/or family were informed about the Rapid Response Team and its purpose.
[2019-04-11] VITALS (27 sets, daily range): BP systolic 105–188; BP diastolic 76–130
[2019-04-11] MEDS ORDERED: morphine INJ 4 MG/ML 1 ML (VIAL/SYRINGE) ONE (01:01)
[2019-04-11] MEDS: morphine INJ 4 MG/ML 1 ML (VIAL/SYRINGE) IV PRN ×2 (01:05→03:44)
[2019-04-11] MEDS ORDERED: RT-ALBUTEROL SULF 2.5 MG/3 ML PRE-MIX VIAL INH PRN (01:15)
[2019-04-11] MEDS ORDERED: NS IV 1000 ML 1,000 ML IV SCH (02:00)
[2019-04-11] MEDS ORDERED: ACETAMINOPHEN 325 MG TABLET PO PRN (02:00)
[2019-04-11] MEDS ORDERED: ONDANSETRON 4 MG/2 ML (SDV) Z0FRAN IV PRN (02:00)
[2019-04-11] MEDS: RT-ALBUTEROL SULF 2.5 MG/3 ML PRE-MIX VIAL INH SCH ×4 (02:41→21:09)
--- NOTE | 2019-04-11 03:21 | Pulmonary Consultation ---
STORM GR[facility] MED STUDENT 04/11/19 0321: History of Present Illness History of Present Illness Date of Consultation 04/11/19 03:14 Date of Admission Reason for Visit: Chest pain History of Present Illness Patient is a 53 year old male with a past medical history of hypertension, gout, RIAZ not using CPAP, type II DM, gout, GERD s/p Gray 1998, and multiple spinal surgeries, reported to the ED for chest pain on 04/10/19. Patient reports that pain was mild and started in the center of the chest in the afternoon. He reports that it became worse after dinner and went through the center of his chest to his back. It was a sharp shooting pain. He did not notice any ass ociated shortness of breath, pleuritic pain, diaphoresis, nausea, vomiting, numbness, or pain radiation other than to his back. The pain did not subside with TUMS or ibuprofen, so the patient reported to the ED. In the ED he was found to have elevated troponin at .107, and his EKG displayed normal sinus rhythm. Allergies and Home Medications Allergies Coded Allergies: No Known Drug Allergies (Unverified , 11/21/18) Home Medications Albuterol Sulfate 1 Puff Puff, 2 PUFF IH Q4H PRN for SHORTNESS OF BREATH, (Reported) 1 PUFF = 90 MCG Allopurinol 300 Mg Tablet, 300 MG PO DAILY, (Reported) Ascorbic Acid 500 Mg Tablet, 1,000 MG PO BID, (Reported) Baclofen 10 Mg Tablet, 10 MG PO TID PRN for SPASMS, (Reported) Doxycycline Hyclate 100 Mg Tablet, 100 MG PO BID Prescribed by: ANGEL WILLOUGHBY on 11/21/181955 Gabapentin 300 Mg Capsule, 1,500 MG PO HS, (Reported) TAKES 5 (300MG) CAPSULES Insulin Glargine,Hum.rec.anlog 300 Unit/1 Ml Insuln.pen, 80 UNIT SQ HS, (Reported) Insulin Lispro 100 Unit/1 Ml Vial, 45 UNIT SQ AC, (Reported) Metoprolol Tartrate 25 Mg Tablet, 25 MG PO BID, (Reported) Montelukast Sodium 10 Mg Tablet, 10 MG PO HS, (Reported) Astatula-3/Dha/Epa/Fish Oil 1 Each Capsule.dr, 2,800 TAB PO BID, (Reported) TAKES 2 (1400MG) CAPSULES Ondansetron 8 Mg Tab.rapdis, 8 MG PO Q6H PRN for NAUSEA/VOMITING Prescribed by: ANGEL WILLOUGHBY on 11/21/182001 Pitavastatin Calcium 4 Mg Tablet, 4 MG PO DAILY, (Reported) Prednisone 10 Mg Tab.ds.pk, 10 MG PO DAILY Take 6 tabs(60mg)daily,decrease by 1 tab(10MG)daily. Prescribed by: IRINEO GONSALEZ on 05/23/18 125 Prednisone 20 Mg Tab, 20 MG PO BID Prescribed by: ANGEL WILLOUGHBY on 11/21/181955 Promethazine HCl 25 Mg Tablet, 25 MG PO Q6H PRN for NAUSEA/VOMITING-2ND LINE, (Reported) Sitagliptin Phosphate 100 Mg Tablet, 100 MG PO DAILY, (Reported) Ubidecarenone 100 Mg Capsule, 100 MG PO DAILY, (Reported) TAKES ALONG WITH 200MG CAPSULE FOR A TOTAL DAILY DOSE OF 300MG Ubidecarenone 200 Mg Capsule, 200 MG PO DAILY, (Reported) TAKEA ALONG WITH 100MG CAPSULE FOR A TOTAL DAILY DOSE OF 300MG Past Xhrfjvh-Tqsvan-Gcjdhq Hx Past Med/Social Hx: Reviewed Nursing Past Med/Soc Hx, Reviewed and Corrections made Patient Social History Alcohol Use: Occasionally Uses Number of Drinks Today: BB Alcohol Beverage of Choice: Beer, [place] Recreational Drug Use: No Smoking Status: Never a Smoker Type Used: Smokeless Tobacco 2nd Hand Smoke Exposure: No Recent Foreign Travel: No Contact w/Someone Who Travel: No Recent Infectious Disease Expo: No Recent Hopitalizations: No Physical Abuse: No Sexual Abuse: No Mistreated: No Fear: No Immunizations Up To Date Tetanus Booster (TDap): Unknown PED Vaccines UTD: Yes Date of Pneumonia Vaccine: Feb 24, 2017 Date of Influenza Vaccine: Feb 22, 2019 Seasonal Allergies Seasonal Allergies: Yes Past Medical History Surgeries: Yes (LITHOTRIPSY, BACK X4, L KNEE ACL REPAIR, WISDOM TEETH,) Abdominal, Adenoidectomy, Appendectomy, Gallbladder, Orthopedic, Tonsillectomy Respiratory: Yes (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, 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) Pneumonia, Sleep Apnea, COPD Currently Using CPAP: No Currently Using BIPAP: No Cardiac: Yes High Cholesterol, Hypertension Neurological: Yes Headaches /Migraines Reproductive Disorders: No Sexually Transmitted Disease: No HIV/AIDS: No Genitourinary: Yes Kidney Stones, Renal Failure Gastrointestinal: Yes (ABDOMINAL ADHESIONS, FREQUENT SMALL BOWEL OBSTRUCTIONS) Abdominal Hernia, Obstructive Bowel, Polyps Musculoskeletal: Yes Degenerate Disk Disease, Arthritis, Fibromyalgia, Rheumatoid Arthritis, Back Injury, Chronic Back Pain, Fractures, Gout Endocrine: Yes (WEARS CONTINUOS GLUCOSE MONITOR) Diabetes, Insulin dep HEENT: No Tonsilitis Loss of Vision: Bilateral Hearing Impairment: Denies Cancer: No Psychosocial: Yes Anxiety, Depression Integumentary: No Blood Disorders: No Adverse Reaction/Blood Tranf: No (N/A) Family Medical History Abdominal aortic aneurysm 09 BROTHER Cancer 03 MOTHER Cancer of colon 03 MOTHER 09 SISTER 19 MOTHER FH: COPD (chronic obstructive pulmonary disease) 19 FATHER FH: leukemia 09 SISTER 19 MOTHER FHx: stroke 19 FATHER Family history: Diabetes mellitus 09 BROTHER 09 SISTER 09 SISTER 09 SISTER Family history: Gastrointestinal disease 03 MOTHER 09 BROTHER No Pertinent Family Hx Sepsis Event Evaluation Height, Weight, BMI Height: 5'11.00" Weight: 260lbs. 8.0oz. 117.325238vc; 36.00 BMI Method:Stated Exam Exam Vital Signs Date Time Temp Pulse Resp B/P (MAP) Pulse Ox O2 Delivery O2 Flow Rate FiO2 04/11/19 02:41 94 Room Air 2.00 04/11/19 00:59 36.9 104 95 28 04/11/19 00:00 36.4 04/10/19 23:48 Nasal Cannula 2.00 04/10/19 23:45 95 Nasal Cannula 2.00 04/10/19 23:32 36.9 104 18 113/83 (115) 95 Nasal Cannula 2.00 04/10/19 22:20 93 Nasal Cannula 2.00 04/10/19 21:06 96 20 146/99 (115) 04/10/19 21:06 Room Air I & O 04/11/19 07:00 Intake Total 1000 ml Output Total 200 ml Balance 800 ml Height & Weight Height: 5'11.00" Weight: 260lbs. 8.0oz. 117.916472al; 36.00 BMI Method:Stated General Appearance: No Apparent Distress, WD/WN Neck: Full Range of Motion, Normal Inspection, Non Tender, Supple Respiratory: Chest Non Tender, Lungs Clear, Normal Breath Sounds Cardiovascular: Regular Rate, Rhythm, No Edema, No Murmur, Normal Peripheral Pulses Capillary Refill: Less Than 3 Seconds Peripheral Pulses: 2+ Dorsalis Pedis (R), 2+ Left Dors-Pedis (L), 2+ Radial Pulses (R), 2+ Radial Pulses (L) Gastrointestinal: normal bowel sounds, tenderness (epigastric palpation causes pain that radiates to chest ) Extremity: Normal Capillary Refill, Normal Inspection, Normal Range of Motion, Non Tender, No Calf Tenderness Neurologic/Psychiatric: Alert, Oriented x3, No Motor/Sensory Deficits, Normal Mood/Affect Skin: Normal Color, Warm/Dry Results Lab Laboratory Tests 04/10/19 21:12 Radiology 04/10/19 Chest Xray IMPRESSION: There is no evidence for active disease. Assessment/Plan Assessment/Plan Chest pain, NSTEMI --cardiology consulted -Elevated troponin x2 .107, 4.962 -planning cath this AM -Normal sinus on EKG -Nitroglycerin -morphine 2mg Q2 PRN for pain -Lovenox 1mg/kg BID Uncontrolled type II DM -Glucose 296 -Sliding scale insulin RIAZ -Home CPAP non compliant Hx of multiple back surgeries and neuropathy BIANCA CARR DO 04/11/19 0539: History of Present Illness History of Present Illness Time Seen by Provider: 05:32 History of Present Illness 53yo with hx of non compliant RIAZ, DMII presented to ED secondary to new onset sharp CP. Troponins are positive. 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 Allergies and Home Medications Allergies Coded Allergies: No Known Drug Allergies (Unverified , 11/21/18) Home Medications Albuterol Sulfate 1 Puff Puff, 2 PUFF IH Q4H PRN for SHORTNESS OF BREATH, (Reported) 1 PUFF = 90 MCG Allopurinol 300 Mg Tablet, 300 MG PO DAILY, (Reported) Ascorbic Acid 500 Mg Tablet, 1,000 MG PO BID, (Reported) Baclofen 10 Mg Tablet, 10 MG PO TID PRN for SPASMS, (Reported) Doxycycline Hyclate 100 Mg Tablet, 100 MG PO BID Prescribed by: ANGEL WILLOUGHBY on 11/21/181955 Gabapentin 300 Mg Capsule, 1,500 MG PO HS, (Reported) TAKES 5 (300MG) CAPSULES Insulin Glargine,Hum.rec.anlog 300 Unit/1 Ml Insuln.pen, 80 UNIT SQ HS, (Reported) Insulin Lispro 100 Unit/1 Ml Vial, 45 UNIT SQ AC, (Reported) Metoprolol Tartrate 25 Mg Tablet, 25 MG PO BID, (Reported) Montelukast Sodium 10 Mg Tablet, 10 MG PO HS, (Reported) Astatula-3/Dha/Epa/Fish Oil 1 Each Capsule.dr, 2,800 TAB PO BID, (Reported) TAKES 2 (1400MG) CAPSULES Ondansetron 8 Mg Tab.rapdis, 8 MG PO Q6H PRN for NAUSEA/VOMITING Prescribed by: ANGEL WILLOUGHBY on 11/21/182001 Pitavastatin Calcium 4 Mg Tablet, 4 MG PO DAILY, (Reported) Prednisone 10 Mg Tab.ds.pk, 10 MG PO DAILY Take 6 tabs(60mg)daily,decrease by 1 tab(10MG)daily. Prescribed by: IRINEO GONSALEZ on 05/23/181255 Prednisone 20 Mg Tab, 20 MG PO BID Prescribed by: ANGEL WILLOUGHBY on 11/21/181955 Promethazine HCl 25 Mg Tablet, 25 MG PO Q6H PRN for NAUSEA/VOMITING-2ND LINE, (Reported) Sitagliptin Phosphate 100 Mg Tablet, 100 MG PO DAILY, (Reported) Ubidecarenone 100 Mg Capsule, 100 MG PO DAILY, (Reported) TAKES ALONG WITH 200MG CAPSULE FOR A TOTAL DAILY DOSE OF 300MG Ubidecarenone 200 Mg Capsule, 200 MG PO DAILY, (Reported) TAKEA ALONG WITH 100MG CAPSULE FOR A TOTAL DAILY DOSE OF 300MG Past Zwttzuw-Vtydbr-Jfwfkn Hx Family Medical History Abdominal aortic aneurysm 09 BROTHER Cancer 03 MOTHER Cancer of colon 03 MOTHER 09 SISTER 19 MOTHER FH: COPD (chronic obstructive pulmonary disease) 19 FATHER FH: leukemia 09 SISTER 19 MOTHER FHx: stroke 19 FATHER Family history: Diabetes mellitus 09 BROTHER 09 SISTER 09 SISTER 09 SISTER Family history: Gastrointestinal disease 03 MOTHER 09 BROTHER Review of Systems Time Seen by Provider: 05:33 Constitutional: Weakness, Malaise; No: Fever, Chills, Sweats, Other Eyes: No: Pain, Vision change, Conjunctivae inflammation, Eyelid inflammation, Other, Redness ENT: No: Ear pain, Ear discharge, Nose pain, Nose discharge, Nose congestion, Mouth pain, Mouth swelling, Throat pain, Throat swelling, Other Respiratory: No: Cough, Dry, Shortness of breath, SOB with excertion, Wheezing, Hemoptysis, Pleuritic Pain, Sputum, Wheezing, Other Cardiovascular: Chest Pain; No: Palpitations, Orthopnea, Paroxysmal Noc. Dyspnea Gastrointestinal: No: Nausea, Vomiting, Abdominal Pain, Diarrhea, Constipation, Melena, Hematochezia, Other Genitourinary: No Dysuria, No Frequency, No Incontinence, No Hematuria, No Rete ntion, No Other Exam Exam General Appearance: No Apparent Distress, WD/WN Neck: Full Range of Motion, Normal Inspection, Non Tender Respiratory: Chest Non Tender, Lungs Clear, Normal Breath Sounds Cardiovascular: Regular Rate, Rhythm, No Edema, No Murmur, Normal Peripheral Pulses Gastrointestinal: normal bowel sounds, tenderness (epigastric palpation causes pain that radiates to chest ) Extremity: Normal Capillary Refill, Normal Inspection, Normal Range of Motion, Non Tender, No Calf Tenderness Neurologic/Psychiatric: Alert, Oriented x3, No Motor/Sensory Deficits, Normal Mood/Affect Skin: Normal Color, Warm/Dry Assessment/Plan Assessment/Plan Chest pain, NSTEMI -Plan is for cath --cardiology consulted Uncontrolled type II DM -Glucose 296 -Sliding scale insulin RIAZ -Home CPAP non compliant Hx of multiple back surgeries and neuropathy STORM [facility] MED STUDENT Apr 11, 2019 03:21 BIANCA GONZALEZ DO Apr 11, 2019 05:39 POS
[2019-04-11 03:48] LABS: BASOPHILS % (AUTO) 0 % (0-10); EOSINOPHILS # (AUTO) 0.1 10^3/uL (0.0-0.3); EOSINOPHILS % (AUTO) 2 % (0-10); HEMATOCRIT 46 % (40-54); HEMOGLOBIN 15.7 G/DL (13.3-17.7); LYMPHOCYTES # (AUTO) 3.3 X 10^3 (1.0-4.0); LYMPHOCYTES % (AUTO) 36 % (12-44); MEAN CORPUSCULAR HEMOGLOBIN 31 PG (25-34); MEAN CORPUSCULAR HGB CONC 34 G/DL (32-36); MEAN CORPUSCULAR VOLUME 92 FL (80-99); MEAN PLATELET VOLUME 11.1 FL (7.4-10.4); MONOCYTES % (AUTO) 11 % (0-12); NEUTROPHILS # (AUTO) 4.6 X 10^3 (1.8-7.8); NEUTROPHILS % (AUTO) 51 % (42-75); PLATELET COUNT 154 10^3/uL (130-400); RED CELL DISTRIBUTION WIDTH 13.9 % (10.0-14.5)
[2019-04-11 03:54] LABS: BUN/CREATININE RATIO 18; CALCIUM 9.2 MG/DL (8.5-10.1); CARBON DIOXIDE 24 MMOL/L (21-32); CHLORIDE 105 MMOL/L (98-107); CHOLESTEROL 236 MG/DL (< 200); CREATININE SERUM 1.12 MG/DL (0.60-1.30); GFR ESTIMATED > 60; GLUCOSE 123 MG/DL (70-105); HDL CHOLESTEROL 38 MG/DL (40-60); MAGNESIUM 1.8 MG/DL (1.6-2.4); PHOSPHORUS 3.1 MG/DL (2.3-4.7); POTASSIUM 3.7 MMOL/L (3.6-5.0); SODIUM 140 MMOL/L (135-145); TRIGLYCERIDES 511 MG/DL (<150)
[2019-04-11] MEDS: MAGNESIUM 1 GM/100 ML IVPB 100 ML IV SCH (03:56)
[2019-04-11] MEDS: POTASSIUM CL 10MEQ/50ML IVPB 50 ML IV SCH (03:57)
[2019-04-11] MEDS: KCL 20 MEQ TAB (K-DUR) PO SCH (03:57)
[2019-04-11] MEDS: NITROGLYCERIN 0.4 MG SL TABS BTL 25'S SL PRN (04:25)
--- NOTE | 2019-04-11 04:30 | NUR ---
CALLED DR. RODRÍGUEZ AND INFORMED HIM THAT PATIENT'S CHEST PAIN IS NOW UNRELIEVED BY MORPHINE AND NITRO. ALSO INFORMED HIM THAT PATIENT'S TROPONIN IS NOW 4.962 AND THAT EKG WAS OBTAINED. RECEIVED ORDER TO NOTIFY [facility] AND THAT PATIENT WILL GO TO THE [facility] NOW.
[2019-04-11] MEDS ORDERED: LIDOCAINE 1% INJ 20 ML 20 ML VIAL ONE (04:58)
[2019-04-11] MEDS ORDERED: HEParin (CATH LAB) 2,000 ML IV ONE (04:59)
[2019-04-11] MEDS ORDERED: MIDAZOLAM 5 MG/5 ML (VERSED) VIAL ONE (05:07)
[2019-04-11] MEDS ORDERED: fentaNYL INJECTION 100 MCG/2 ML AMP ONE (05:07)
[2019-04-11] MEDS ORDERED: NITRO DRIP 25000 MCG/D5W 0 ML IV ONE (05:08)
[2019-04-11] MEDS ORDERED: HEParin 1000 UNIT/ML (10ML VIAL) FOR BOLUS ONE (05:08)
--- NOTE | 2019-04-11 05:27 | Consultation-Cardiology ---
HPI-Cardiology Cardiology Consultation Date of Consultation 04/11/19 Date of Admission Time Seen by Provider: 05:23 Indication: Chest pain HPI 53 years old gentleman with history of diabetes mellitus, obesity, hypertension, hyperlipidemia, multiple surgeries to the back, recent surgery to the knee and COPD with obstructive sleep apnea. Start chest pain yesterday afternoon pers istent dull in nature in the upper epigastric and retrosternal area radiating to the back. Troponin initially was 0.1, he was started on nitroglycerin, reported improvement initially, then started to have more chest pain. Second troponin was elevated. Currently having active chest pain, still did not have acute EKG changes. Home Medications & Allergies Allergies: Coded Allergies: No Known Drug Allergies (Unverified , 11/21/18) Home Medication List Reviewed: Yes GWL-Xzbecq-Gopivn Hx Patient Social History Marital Status: Employed/Student: employed Alcohol Use: Occasionally Uses Recreational Drug Use: No Smoking Status: Never a Smoker Type Used: Smokeless Tobacco 2nd Hand Smoke Exposure: No Recent Foreign Travel: No Recent Infectious Disease Expo: No Recent Hopitalizations: No Immunizations Up To Date Tetanus Booster (TDap): Unknown Date of Pneumonia Vaccine: Feb 24, 2017 Date of Influenza Vaccine: Feb 22, 2019 Past Medical History discussed below Family Medical History Significant Family History: No Pertinent Family Hx Family History: Abdominal aortic aneurysm 09 BROTHER Cancer 03 MOTHER Cancer of colon 03 MOTHER 09 SISTER 19 MOTHER FH: COPD (chronic obstructive pulmonary disease) 19 FATHER FH: leukemia 09 SISTER 19 MOTHER FHx: stroke 19 FATHER Family history: Diabetes mellitus 09 BROTHER 09 SISTER 09 SISTER 09 SISTER Family history: Gastrointestinal disease 03 MOTHER 09 BROTHER Review of Systems-General Review of Systems Constitutional: no symptoms reported, see HPI EENTM: see HPI, no symptoms reported Respiratory: see HPI; No cough; dyspnea on exertion; No hemoptysis, No orthopnea, No phlegm, No short of breath, No stridor, No wheezing, No other Cardiovascular: see HPI, chest pain; No edema, No Hx of Intervention, No palpitations, No syncope, No vascular heart diseas, No other Gastrointestinal: no symptoms reported, see HPI Genitourinary: no symptoms reported, see HPI Musculoskeletal: see HPI, back pain, joint pain Skin: no symptoms reported, see HPI Psychiatric/Neurological: No Symptoms Reported, See HPI All Other Systems Reviewed Negative Unless Noted: Yes Reviewed Test Results Reviewed Test Results Lab Laboratory Tests Test 04/10/19 21:12 04/11/19 03:20 Range/Units White Blood Count 8.9 9.0 4.3-11.0 10^3/uL Red Blood Count 5.15 5.02 4.35-5.85 10^6/uL Hemoglobin 15.9 15.7 13.3-17.7 G/DL Hematocrit 47 46 40-54 % Mean Corpuscular Volume 91 92 80-99 FL Mean Corpuscular Hemoglobin 31 31 25-34 PG Mean Corpuscular Hemoglobin Concent 34 34 32-36 G/DL Red Cell Distribution Width 13.9 13.9 10.0-14.5 % Platelet Count 160 154 130-400 10^3/uL Mean Platelet Volume 11.1 H 11.1 H 7.4-10.4 FL Neutrophils (%) (Auto) 68 51 42-75 % Lymphocytes (%) (Auto) 20 36 12-44 % Monocytes (%) (Auto) 11 11 0-12 % Eosinophils (%) (Auto) 2 2 0-10 % Basophils (%) (Auto) 0 0 0-10 % Neutrophils # (Auto) 6.1 4.6 1.8-7.8 X 10^3 Lymphocytes # (Auto) 1.8 3.3 1.0-4.0 X 10^3 Monocytes # (Auto) 1.0 1.0 0.0-1.0 X 10^3 Eosinophils # (Auto) 0.1 0.1 0.0-0.3 10^3/uL Basophils # (Auto) 0.0 0.0 0.0-0.1 10^3/uL Prothrombin Time 13.2 12.2-14.7 SEC INR Comment 1.0 0.8-1.4 Activated Partial Thromboplast Time 31 24-35 SEC Sodium Level 138 140 135-145 MMOL/L Potassium Level 4.1 3.7 3.6-5.0 MMOL/L Chloride Level 103 105 98-107 MMOL/L Carbon Dioxide Level 23 24 21-32 MMOL/L Anion Gap 12 11 5-14 MMOL/L Blood Urea Nitrogen 19 H 20 H 7-18 MG/DL Creatinine 1.31 H 1.12 0.60-1.30 MG/DL Estimat Glomerular Filtration Rate 57 > 60 BUN/Creatinine Ratio 15 18 Glucose Level 296 H 123 H 70-105 MG/DL Calcium Level 9.5 9.2 8.5-10.1 MG/DL Corrected Calcium 9.5 8.5-10.1 MG/DL Magnesium Level 1.5 L 1.8 1.6-2.4 MG/DL Total Bilirubin 0.5 0.1-1.0 MG/DL Aspartate Amino Transf (AST/SGOT) 28 5-34 U/L Alanine Aminotransferase (ALT/SGPT) 48 0-55 U/L Alkaline Phosphatase 77 40-136 U/L Myoglobin 427.0 H 10.0-92.0 NG/ML Troponin I 0.107 H 4.962 *H <0.028 NG/ML Total Protein 6.9 6.4-8.2 GM/DL Albumin 4.0 3.2-4.5 GM/DL Phosphorus Level 3.1 2.3-4.7 MG/DL Triglycerides Level 511 H <150 MG/DL Cholesterol Level 236 H < 200 MG/DL LDL Cholesterol Direct 135 H 1-129 MG/DL VLDL Cholesterol 5-40 MG/DL HDL Cholesterol 38 L 40-60 MG/DL Physical Exam Physical Exam Vital Signs Vital Signs - First Documented 04/10/19 04/10/19 04/10/19 04/11/19 21:06 22:20 23:32 00:59 Temp 36.9 Pulse 96 Resp 20 B/P (MAP) 146/99 (115) Pulse Ox 93 O2 Delivery Room Air O2 Flow Rate 2.00 FiO2 28 Capillary Refill : Less Than 3 Seconds Height, Weight, BMI Height: 5'11.00" Weight: 260lbs. 8.0oz. 117.728875hd; 36.00 BMI Method:Stated General Appearance: No Apparent Distress, WD/WN Eyes: Bilateral Eye Normal Inspection, Bilateral Eye PERRL, Bilateral Eye EOMI HEENT: PERRL/EOMI, TMs Normal, Normal ENT Inspection, Pharynx Normal, Moist Mucous Membranes Neck: Full Range of Motion, Normal Inspection, Non Tender, Supple Respiratory: Chest Non Tender, Lungs Clear, Normal Breath Sounds Cardiovascular: Regular Rate, Rhythm, No Edema, No Murmur, Normal Peripheral Pulses Gastrointestinal: Normal Bowel Sounds, No Pulsatile Mass, Non Tender, Soft Back: Normal Inspection, No CVA Tenderness, No Vertebral Tenderness Extremity: Normal Capillary Refill, Normal Inspection, Normal Range of Motion, Non Tender, No Calf Tenderness Neurologic/Psychiatric: Alert, Oriented x3, No Motor/Sensory Deficits, Normal Mood/Affect Skin: Normal Color, Warm/Dry Lymphatic: No Adenopathy A/P-Cardiology Admission Diagnosis NSTMI Coronary artery disease Hypertension Hyperlipidemia Assessment/Plan Non-ST elevation myocardial infarction, patient is having active chest pain, planning to proceed with cardiac catheterization Coronary artery disease, planning to proceed with cardiac catheterization evaluate coronaries Hypertension, monitor blood pressure Hyperlipidemia, start Lipitor 80 mg daily Diabetes mellitus, followed and managed by primary care physician COPD/obstructive sleep apnea Obesity, BMI 36 Multiple back surgeries, recent knee surgery Clinical Quality Measures AMI/AHF: ASA po Prior to arrival: No DVT/VTE Risk/Contraindication: Risk Factor Score Per Nursin RFS Level Per Nursing on Admit: 4+=Very High ROSS RODRÍGUEZ MD Apr 11, 2019 05:27 POS
[2019-04-11] MEDS ORDERED: ATROPINE INJECTION 1 MG/10 ML SYR (ABBOTT) ONE (06:10)
[2019-04-11] MEDS ORDERED: ASPIRIN 325 MG (5 GR) TABLET ONE (06:25)
[2019-04-11] MEDS ORDERED: TICAGRELOR 90 MG TABLET (BRILINTA) PO ONE (06:25)
[2019-04-11] MEDS ORDERED: PATIENT MAY USE OWN MEDS, ALL PO SCH (06:30)
--- NOTE | 2019-04-11 06:38 | Cardiac Cath Report ---
Cardiac Cath Report Physician (s)/Tiler'S Assistant (s) Physician ROSS RODRÍGUEZ MD Pre-Procedure Diagnosis Pre-Procedure Diagnosis: Non-ST elevation myocardial infarction Post-Procedure Note Procedure Start Date: Apr 11, 2019 Name of Procedure: Left heart catheterization LV gram Aortic arch angiogram Emergency stenting to the right coronary artery Findings/Procedure Note PROCEDURE NOTE: 53 years old gentleman with history of hypertension, hyperlipidemia and diabetes mellitus, COPD and obesity admitted with acute chest pain. Had slight elevation in troponin. Pain improved after nitroglycerin, start her have significant chest pain and his second set of troponin was elevated, decision was made to take him for emergency cardiac catheterization possible PTCA. After explaining the procedure to the patient, all pros and cons were explained, all questions were answered. The patient signed the consent and then he was placed on the cardiac catheterization laboratory. Groin was prepped SL fashion local anesthesia was used. Sheath placed in the right femoral artery. [place] right and left catheter were used to access the coronary system. Pigtail was used to access the left ventricular cavity. Left ventriculogram was done Aortic arch angiogram was done next Patient was given 7000 units of heparin, if our guide was advanced to the right coronary artery, BMW wire was advanced and parked in the distal right coronary artery patient has diffuse ectasia in the right coronary artery one area of 95 percent stenosis at the distal portion stent subtotal occlusion at the distal right PDA. I had difficulty advancing the initial balloon, perform balloon angioplasty, was unable to advance the stent through the tortuosity of the right coronary artery at that point I introduced new 3.0 balloon advanced distally and inflated then advanced guide liner to the distal right coronary artery, balloon was removed then I advanced Maday or a 4 x 23 mm which was deployed under high pressure, angiogram was showing significant improvement but still poor opposition distally due to the presence of an aneurysm I advanced through the guide liner 4.5 noncompliant balloon and dilated the stent. Angiographic showed satisfactory results. At that point the wire and the balloon was removed, angiogram showed improvement in the flow. Patient is chest pain-free. At the end of the procedure the sheath was removed. Closure device was used FINDINGS: Hemodynamics LV 123/18, end-diastolic pressure of 18 Aorta 135/88 mean of 109 ANATOMY: Left Main has aneurysmal dilatation with 50 percent ostial stenosis Left Anterior Descending has mild to moderate diffuse ectasia with 40-50 percent stenosis in the midportion nonobstructive disease Left Circumflex is large artery, has severe stenosis distally at the trif urcation point involving the proper circumflex artery, obtuse marginal branch and AV groove branch, the artery is about 2 mm in diameter, the proper circumflex is 1.5 mm. Right Coronory Artery his large dominant artery with diffuse ectasia, 50 percent stenosis proximally, 95 percent stenosis distally, subtotal occlusion at the distal right PDA, complex intervention with deployment of a distal CROSSING SUPERVISOR stent 4 x 23 expanded to 4.5 with excellent results, there are multiple aneurysms within the artery, the distal PDA is fairly small artery. Will be treated medically LV Gram was done showing normal left ventricular size and contracted to estimate ejection fraction 50 percent Aorta evaluation done with aortic arch angiogram which showed normal aortic arch in size. There is no dissection or aneurysm, normal origin of the right innominate artery, left carotid and left subclavian CONCLUSION: 1. Acute non-ST elevation myocardial infarction, subtotal occlusion with diffuse ectasia in the distal right coronary artery, complex intervention requiring guide liner and multiple balloons then deployment of Maday 4 x 23 stent expanded to 4.5 millimeter with excellent results, proximal right coronary artery has diffuse ectasia with 50 percent stenosis, the distal right PDA is subtotally occluded, fairly small artery, will be treated medically 2. Severe stenosis at the distal circumflex artery with a long lesion involving the obtuse marginal branch, proper circumflex and AV groove branch, all arteries are less than 2 mm in diameter, will be treated medically, consideration for high risk intervention in the future. 3. 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 Mild to moderate ectasia in the LAD with mild to moderate disease diffusely nonobstructive disease 5. Normal left ventricular size and systolic function estimated ejection fraction 60 percent 6. Normal aortic arch and great vessels of the neck DISCUSSION AND RECOMMENDATION: Patient was started on aspirin and Brilinta will need aggressive anticoagulation probably indefinitely if he can tolerate it, aggressive statin, restarted beta blockers and add MASHA inhibitor, consideration for high risk intervention on the circumflex artery if patient continued to be symptomatic. Anesthesia Type: Conscious Sedation Estimated blood loss (mL): 35 ml Contrast Amount: 141 ml Total Radiation Dose: 2614 mGy Post-Procedure Diagnosis Post-operative diagnosis: Non-ST elevation myocardial infarction Coronary artery disease Hypertension Hyperlipidemia ROSS RODRÍGUEZ MD Apr 11, 2019 06:38 POS
[2019-04-11] MEDS: NS IV 1000 ML 1,000 ML IV SCH ×2 (06:56→18:11)
[2019-04-11] MEDS: ENOXAPARIN 60 MG/0.6 ML (LOVENOX) SYR SC SCH ×2 (07:39→20:02)
[2019-04-11] MEDS ORDERED: CHOL5000 PO (08:57)
[2019-04-11] MEDS ORDERED: LISI-552 PO (08:57)
[2019-04-11] MEDS ORDERED: HYDR-3812 PO (08:57)
[2019-04-11] MEDS ORDERED: GABA-488 PO (08:57)
[2019-04-11] MEDS ORDERED: INSU300I3 SC (08:57)
[2019-04-11] MEDS ORDERED: DICL100G31 TOP (08:57)
[2019-04-11] MEDS ORDERED: INSU100I23 SQ (08:57)
[2019-04-11] MEDS ORDERED: PEDI1TAB60 PO (08:57)
[2019-04-11] MEDS ORDERED: METF500T8 PO (08:57)
[2019-04-11] MEDS ORDERED: FLUT1BLS12 INH (08:57)
[2019-04-11] MEDS ORDERED: OMEG-105 PO (08:57)
[2019-04-11] MEDS ORDERED: lisINopril 10 MG (PRINIVIL) TABLET PO SCH (09:00)
[2019-04-11] MEDS ORDERED: meTOprolol TARTRATE 25 MG (LOPRESSOR) TABLET PO SCH (09:00)
[2019-04-11] MEDS ORDERED: ASPIRIN 81 MG CHEW (CHILDREN'S ASA) PO SCH (09:00)
--- NOTE | 2019-04-11 09:01 | NUR ---
SPOKE WITH THE PATIENT ABOUT HIS MEDICATIONS. WE WENT OVER THE EXT MED HX AND COMPARED IT TO HIS LIST HE BROUGHT IN. HE NOW USES 120 UNITS OF TOUJEO AT BEDTIME AND 52 UNITS TID WITH MEALS OF HUMALOG. OTC MEDS: CO Q 10 300MG DAILY MTV CHEW CHILDREN'S 2 DAILY VITAMIN C VITAMIN D IN ADDITION TO HIS LIST HE VERIFIED HE USES ADVAIR BUT NOT REGULARLY AND VOLTAREN GEL NEEDED.
--- NOTE | 2019-04-11 09:05 | Cardiac Procedure Note-CS/ASA ---
Pre-Procedure Note Pre-Op Procedure Note H&P Reviewed The H&P was reviewed, patient examined and no changes noted. Date H&P Reviewed: Apr 11, 2019 Time H&P Reviewed: 05:00 Conscious Sedation Pre-Proced Time 05:00 ASA Score 3 For ASA 3 and 4: Consider anesthesia and medical clearance. Also, for patients with a history of failed moderate sedation consider anesthesia. Airway Lungs Heart ASA score ASA 1: a normal healthy patient ASA 2: a patient with a mild systemic disease (mid diabetes, controlled hypertension, obesity x ASA 3: a patient with a severe systemic disease that limits activity (angina, COPD, prior Myocardial infarction) ASA 4: a patient with an incapacitating disease that is a constant threat to life (CHF, renal failure) ASA 5: a moribund patient not expected to survive 24 hrs. (ruptured aneurysm) ASA 6: a declared brain- patient whose organs are being harvested. For emergent operations, add the letter E after the classification Mallampati Classification Grade 3 Sedation Plan Analgesia, Amnesia, Plan communicated to team members, Discussed options with patient/fam, Discussed risks with patient/fam The patient is an appropriate candidate to undergo the planned procedure, sedation, and anesthesia. The patient immediately re-assessed prior to indication. ROSS RODRÍGUEZ MD Apr 11, 2019 09:05 POS
--- NOTE | 2019-04-11 09:46 | History & Physical-Hospitalist ---
History of Present Illness HPI/Chief Complaint CC: Non ST elevation [place] HPI: This is a 53yoWM who had yet to become established with Dr. Osborne Cardiology care who I see at the [facility] and also sees pain management, endocrinology, and Dr. Pineda for Pulmonology who presents with elevated Troponin s/p cardiac catheterization performed this morning showing extensive ectasia and total cholesterol remains at 500+ so he will remain in the hospital until tomorrow. Troponin became the highest elevation at 4.0 and his home medications will be restarted. Source: patient Date Seen 04/11/19 Time Seen by a Provider: 09:00 Attending Physician Alphonse Clifton MD PCP Pat Gonsalez DO Referring Physician Date of Admission Apr 10, 2019 at 22:00 Home Medications & Allergies Home Medications Reviewed patient Home Medication Reconciliation performed by pharmacy medication reconciliations optical coating technician and/or nursing. Patients Allergies have been reviewed. Allergies Allergies Coded Allergies No Known Drug Allergies (Unverified11/21/18) Past Dcofukv-Jgqiwq-Hwmwcy Hx Past Med/Social Hx: Reviewed Nursing Past Med/Soc Hx, Reviewed and Corrections made Patient Social History Marrital Status: Employed/Student: employed Alcohol Use: Occasionally Uses Number of Drinks Today: BB Alcohol Beverage of Choice: Beer, [place] Recreational Drug Use: No Smoking Status: Never a Smoker Type Used: Smokeless Tobacco 2nd Hand Smoke Exposure: No Recent Foreign Travel: No Contact w/other who traveled: No Recent Hopitalizations: No Recent Infectious Disease Expo: No Immunizations Up To Date Tetanus Booster (TDap): Unknown Pediatric: Yes Date of Pneumonia Vaccine: Feb 24, 2017 Date of Influenza Vaccine: Feb 22, 2019 Seasonal Allergies Seasonal Allergies: Yes Past Medical History Surgeries: Abdominal, Adenoidectomy, Appendectomy, Gallbladder, Orthopedic, Tonsillectomy Respiratory: Pneumonia Currently Using CPAP: No Currently Using BIPAP: No Cardiac: High Cholesterol, Hypertension Neurological: Headaches /Migraines Reproductive: No Sexually Transmitted Disease: No HIV/AIDS: No Genitourinary: Kidney Stones, Renal Failure Gastrointestinal: Abdominal Hernia, Obstructive Bowel, Polyps Musculoskeletal: Degenerate Disk Disease, Arthritis, Fibromyalgia, Rheumatoid Arthritis, Back Injury, Chronic Back Pain, Fractures, Gout Endocrine: Diabetes, Insulin dep HEENT: Tonsilitis Loss of Vision: Bilateral Hearing Impairment: Denies Psychosocial: Anxiety, Depression History of Blood Disorders: No Adverse Reaction to Blood Chen: No (N/A) Family History Abdominal aortic aneurysm 09 BROTHER Cancer 03 MOTHER Cancer of colon 03 MOTHER 09 SISTER 19 MOTHER FH: COPD (chronic obstructive pulmonary disease) 19 FATHER FH: leukemia 09 SISTER 19 MOTHER FHx: stroke 19 FATHER Family history: Diabetes mellitus 09 BROTHER 09 SISTER 09 SISTER 09 SISTER Family history: Gastrointestinal disease 03 MOTHER 09 BROTHER No Pertinent Family Hx Review of Systems Constitutional: see HPI Respiratory: dyspnea on exertion Cardiovascular: chest pain Psychiatric/Neurological: Anxiety, Depressed Physical Exam Physical Exam Vital Signs Vital Signs - First Documented 04/10/19 04/10/19 04/10/19 04/11/19 21:06 22:20 23:32 00:59 Temp 36.9 Pulse 96 Resp 20 B/P (MAP) 146/99 (115) Pulse Ox 93 O2 Delivery Room Air O2 Flow Rate 2.00 FiO2 28 Capillary Refill : Less Than 3 Seconds Height, Weight, BMI Height: 5'11.00" Weight: 260lbs. 8.0oz. 117.717868eo; 36.00 BMI Method:Stated General Appearance: No Apparent Distress, WD/WN, Chronically ill, Obese Eyes: Right Eye Normal Inspection, Right Eye PERRL HEENT: PERRL/EOMI, Normal ENT Inspection, Pharynx Normal, Moist Mucous Membranes Neck: Full Range of Motion, Normal Inspection, Non Tender Respiratory: Chest Non Tender, Lungs Clear, Normal Breath Sounds, No Accessory Muscle Use, No Respiratory Distress Cardiovascular: Regular Rate, Rhythm, No Edema, No Gallop, No JVD, No Murmur, Normal Peripheral Pulses Gastrointestinal: Normal Bowel Sounds, No Organomegaly, No Pulsatile Mass, Non Tender, Soft Back: Normal Inspection, No CVA Tenderness, No Vertebral Tenderness Extremity: Normal Capillary Refill, Normal Inspection, Normal Range of Motion, Non Tender, No Calf Tenderness, No Pedal Edema Neurologic/Psychiatric: Alert, Oriented x3, No Motor/Sensory Deficits, Normal Mood/Affect Skin: Normal Color, Warm/Dry Lymphatic: No Adenopathy Results Results/Procedures Labs Laboratory Tests 04/10/19 21:12 04/11/19 03:20 Patient resulted labs reviewed. Assessment/Plan Admission Diagnosis Assessment: NSTEMI Cath with intervention RIAZ DM HTN HLP Chronic pain Plan: Home meds Appreciate Dr Núñez and Dr Pineda Admission Status: Inpatient Order (span 2 midnights) Reason for Inpatient Admission: NSTEMI Diagnosis/Problems Diagnosis/Problems (1) Non-STEMI (non-ST elevated myocardial infarction) Status: Acute (2) Type 2 diabetes mellitus Status: Acute Qualifiers: Diabetes mellitus long chain beamer insulin use: without long chain beamer use Diabetes mellitus complication status: without complication Qualified Codes: E11.9 - Type 2 diabetes mellitus without complications (3) Chronic pain Status: Chronic Clinical Quality Measures AMI/AHF: ASA po Prior to arrival: No DVT/VTE Risk/Contraindication: Risk Factor Score Per Nursin RFS Level Per Nursing on Admit: 4+=Very High PAT GONSALEZ DO Apr 11, 2019 09:46 POS
[2019-04-11] MEDS: TICAGRELOR 90 MG TABLET (BRILINTA) PO SCH ×2 (10:43→20:02)
--- NOTE | 2019-04-11 10:43 | NUR ---
Morning medications have not been administered d/t running home to get patients medications. Will send down to pharmacy to have medications verified and will administer once has arrived back to facility with medications.
[2019-04-11] MEDS: inSUlin ASPART (NovoLOG) 1 UNIT/0.01 ML (CHARGE PER UNIT) SC SCH ×4 (12:00→20:05)
[2019-04-11] MEDS: OMEGA 3 (FISH OIL) 1000 MG CAP PO SCH ×2 (13:34→17:35)
[2019-04-11] MEDS: ASPIRIN E.C. 81 MG (ECOTRIN) TAB PO SCH (13:59)
[2019-04-11] MEDS ORDERED: inSUlin ASPART (NovoLOG) 1 UNIT/0.01 ML (CHARGE PER UNIT) SC SCH (16:00)
[2019-04-11] MEDS ORDERED: INSULIN LISPRO SQ SCH (16:00)
[2019-04-11] MEDS: HUMALOG 100 UNIT/ML SQ SCH (16:49)
[2019-04-11] MEDS: meTOprolol TARTRATE 25 MG (LOPRESSOR) TABLET PO SCH (20:03)
[2019-04-11] MEDS: GABAPENTIN 300 MG (NEURONTIN) CAP PO SCH (20:04)
[2019-04-11] MEDS: MONTELUKAST 10 MG (SINGULAIR) TAB PO SCH (20:05)
[2019-04-11] MEDS ORDERED: [UNRECOGNIZED DRUG - OTHER] SC SCH (21:00)
[2019-04-11] MEDS ORDERED: GABAPENTIN 300 MG (NEURONTIN) CAP PO SCH (21:00)
[2019-04-11] MEDS ORDERED: MONTELUKAST 10 MG (SINGULAIR) TAB PO SCH (21:00)
[2019-04-11] MEDS ORDERED: INSULIN GLARGINE HUM REC ANLOG SC SCH (21:00)
[2019-04-12] VITALS (9 sets, daily range): BP systolic 102–135; BP diastolic 70–111
[2019-04-12] MEDS: RT-ALBUTEROL SULF 2.5 MG/3 ML PRE-MIX VIAL INH SCH ×4 (02:22→22:08)
[2019-04-12] MEDS: NS IV 1000 ML 1,000 ML IV SCH ×3 (03:57→23:09)
[2019-04-12 04:00] LABS: BASOPHILS % (AUTO) 0 % (0-10); EOSINOPHILS # (AUTO) 0.1 10^3/uL (0.0-0.3); EOSINOPHILS % (AUTO) 1 % (0-10); HEMATOCRIT 45 % (40-54); HEMOGLOBIN 15.2 G/DL (13.3-17.7); LYMPHOCYTES # (AUTO) 2.1 X 10^3 (1.0-4.0); LYMPHOCYTES % (AUTO) 21 % (12-44); MEAN CORPUSCULAR HEMOGLOBIN 31 PG (25-34); MEAN CORPUSCULAR HGB CONC 34 G/DL (32-36); MEAN CORPUSCULAR VOLUME 92 FL (80-99); MEAN PLATELET VOLUME 11.5 FL (7.4-10.4); MONOCYTES % (AUTO) 10 % (0-12); NEUTROPHILS # (AUTO) 6.8 X 10^3 (1.8-7.8); NEUTROPHILS % (AUTO) 68 % (42-75); PLATELET COUNT 147 10^3/uL (130-400); RED CELL DISTRIBUTION WIDTH 13.7 % (10.0-14.5)
[2019-04-12 04:24] LABS: BUN/CREATININE RATIO 17; CALCIUM 9.4 MG/DL (8.5-10.1); CARBON DIOXIDE 21 MMOL/L (21-32); CHLORIDE 107 MMOL/L (98-107); GFR ESTIMATED > 60; GLUCOSE 88 MG/DL (70-105); MAGNESIUM 1.8 MG/DL (1.6-2.4); PHOSPHORUS 3.5 MG/DL (2.3-4.7); POTASSIUM 3.8 MMOL/L (3.6-5.0); SODIUM 143 MMOL/L (135-145)
[2019-04-12] MEDS: POTASSIUM CL 10MEQ/50ML IVPB 50 ML IV SCH (04:26)
[2019-04-12] MEDS: KCL 20 MEQ TAB (K-DUR) PO SCH (04:26)
[2019-04-12] MEDS: MAGNESIUM 1 GM/100 ML IVPB 100 ML IV SCH (04:26)
--- NOTE | 2019-04-12 04:37 | Pulmonary Progress Note ---
STORM [employer] MED STUDENT 04/12/19 0437: Subjective Date Seen by a Provider: Apr 12, 2019 Time Seen by a Provider: 04:35 Subjective/Events-last exam Patient reports that he feels well, s/p cath with stent placement 04/11/19. He denies chest pain, SOB, cough, fevers, chills, abdominal pain, nausea, vomiting, diarrhea. Sepsis Event Evaluation Height, Weight, BMI Height: 5'11.00" Weight: 260lbs. 8.0oz. 117.988409xl; 36.00 BMI Method:Stated Exam Exam Vital Signs Date Time Temp Pulse Resp B/P (MAP) Pulse Ox O2 Delivery O2 Flow Rate FiO2 04/12/19 04:00 96 Room Air 04/12/19 04:00 36.4 04/12/19 02:26 93 Room Air 04/12/19 02:00 78 19 117/70 (86) Nasal Cannula 4.00 04/12/19 01:00 80 22 135/111 (119) 91 Nasal Cannula 4.00 04/12/19 01:00 80 04/12/19 00:00 96 Room Air 04/12/19 00:00 79 23 93 Nasal Cannula 4.00 04/12/19 00:00 36.2 04/11/19 23:56 86 27 96 Nasal Cannula 4.00 04/11/19 23:35 86 30 94 Nasal Cannula 2.00 04/11/19 23:00 69 22 85 Room Air 04/11/19 22:49 88 108/83 (91) 96 Room Air 04/11/19 22:00 36.5 87 16 143/109 (120) 95 Room Air 04/11/19 21:46 90 143/109 (120) 95 Room Air 04/11/19 21:09 97 Room Air 04/11/19 21:00 36.6 94 18 129/94 (106) 94 Room Air 04/11/19 20:44 94 129/94 (106) 94 Room Air 04/11/19 20:00 36.4 04/11/19 20:00 96 Room Air 04/11/19 19:39 91 140/94 (109) 95 Room Air 04/11/19 19:00 107 04/11/19 18:09 Room Air 04/11/19 18:00 170 132/100 (111) Room Air 04/11/19 17:00 36.6 04/11/19 17:00 132/100 (111) Room Air 04/11/19 16:00 36.6 04/11/19 16:00 96 Nasal Cannula 04/11/19 15:38 96 Room Air 04/11/19 15:00 81 18 132/96 (108) 97 Nasal Cannula 2.00 04/11/19 13:15 88 162/114 (130) Nasal Cannula 2.00 04/11/19 13:00 95 04/11/19 12:15 93 167/112 (130) Nasal Cannula 2.00 04/11/19 12:00 37.0 04/11/19 12:00 97 Nasal Cannula 04/11/19 11:00 111 16 188/130 (149) 95 Nasal Cannula 2.00 04/11/19 10:11 97 Nasal Cannula 2.00 04/11/19 10:02 36.4 91 98 28 04/11/19 10:00 89 16 137/99 (112) 98 Nasal Cannula 2.00 04/11/19 09:00 87 17 97 Nasal Cannula 2.00 04/11/19 08:30 92 11 152/112 (125) 97 Nasal Cannula 2.00 04/11/19 08:00 77 22 151/92 (111) 98 Nasal Cannula 2.00 04/11/19 08:00 97 Nasal Cannula 2.00 04/11/19 07:45 79 21 136/99 (111) 94 Nasal Cannula 2.00 04/11/19 07:30 89 23 139/87 (104) 91 Nasal Cannula 2.00 04/11/19 07:15 86 22 144/109 (121) 96 Nasal Cannula 2.00 04/11/19 07:00 78 04/11/19 07:00 85 15 147/105 (119) 94 Nasal Cannula 2.00 04/11/19 05:00 90 19 116/88 (97) 94 Nasal Cannula 2.00 I & O 04/12/19 07:00 Intake Total 2150 ml Output Total 2800 ml Balance -650 ml Height & Weight Height: 5'11.00" Weight: 260lbs. 8.0oz. 117.126528mr; 36.00 BMI Method:Stated General Appearance: No Apparent Distress, WD/WN, Chronically ill, Obese HEENT: PERRL/EOMI, Normal ENT Inspection, Pharynx Normal, Moist Mucous Membranes Neck: Full Range of Motion, Normal Inspection, Non Tender Respiratory: Chest Non Tender, Lungs Clear, Normal Breath Sounds, No Accessory Muscle Use, No Respiratory Distress Cardiovascular: Regular Rate, Rhythm, No Edema, No Gallop, No JVD, No Murmur, Normal Peripheral Pulses Capillary Refill: Less Than 3 Seconds Peripheral Pulses: 2+ Dorsalis Pedis (R), 2+ Left Dors-Pedis (L), 2+ Radial Pulses (R), 2+ Radial Pulses (L) Gastrointestinal: normal bowel sounds, tenderness (epigastric palpation causes pain that radiates to chest ) Extremity: Normal Capillary Refill, Normal Inspection, Normal Range of Motion, Non Tender, No Calf Tenderness, No Pedal Edema Neurologic/Psychiatric: Alert, Oriented x3, No Motor/Sensory Deficits, Normal Mood/Affect Skin: Normal Color, Warm/Dry Lymphatic: No Adenopathy Results Lab Laboratory Tests 04/10/19 21:12 04/11/19 03:20 04/12/19 03:00 04/12/19 03:05 Assessment/Plan Assessment/Plan Chest pain, NSTEMI -cardiology consulted -Elevated troponin x2 .107, 4.962 -s/p cath with RCA stent placement 04/11/19 -Nitroglycerin -Ticagrelor -fish oil -aspirin -Lovenox 1mg/kg BID Uncontrolled type II DM -Glucose 296 on admission -Sliding scale insulin Hyperlipidemia -Atorvastatin RIAZ -Home CPAP non compliant Gout -Allopurinol Hx of multiple back surgeries and neuropathy -gabapentin BIANCA CARR DO 04/12/19 0501: Subjective Time Seen by a Provider: 04:58 Subjective/Events-last exam PT is doing much better. No complications noted. Exam Exam General Appearance: No Apparent Distress, WD/WN, Chronically ill, Obese HEENT: PERRL/EOMI, Normal ENT Inspection, Pharynx Normal, Moist Mucous Membranes Neck: Full Range of Motion, Normal Inspection, Non Tender Respiratory: Chest Non Tender, Lungs Clear, Normal Breath Sounds, No Accessory Muscle Use, No Respiratory Distress Capillary Refill: Less Than 3 Seconds Gastrointestinal: tenderness (epigastric palpation causes pain that radiates to chest ) Extremity: Normal Capillary Refill, Normal Inspection, Normal Range of Motion, Non Tender, No Calf Tenderness, No Pedal Edema Neurologic/Psychiatric: Alert, Oriented x3, No Motor/Sensory Deficits, Normal Mood/Affect Skin: Normal Color, Warm/Dry Lymphatic: No Adenopathy Assessment/Plan Assessment/Plan Chest pain, NSTEMI -cardiology consulted -Elevated troponin x2 .107, 4.962 -s/p cath with RCA stent placement 04/11/19 -Nitroglycerin -Ticagrelor -fish oil -aspirin -Lovenox 1mg/kg BID Uncontrolled type II DM -Glucose 296 on admission -Sliding scale insulin Hyperlipidemia -Atorvastatin RIAZ -Home CPAP non compliant Gout -Allopurinol Hx of multiple back surgeries and neuropathy -gabapentin 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
[2019-04-12] MEDS: inSUlin ASPART (NovoLOG) 1 UNIT/0.01 ML (CHARGE PER UNIT) SC SCH ×4 (05:53→20:47)
[2019-04-12] MEDS: OMEGA 3 (FISH OIL) 1000 MG CAP PO SCH ×2 (06:44→15:44)
[2019-04-12] MEDS: HUMALOG 100 UNIT/ML SQ SCH ×3 (06:47→16:42)
--- NOTE | 2019-04-12 08:09 | Diagnostic Imaging Report ---
INDICATION: Dyspnea. COMPARISON: 04/10/2019. FINDINGS: The lungs are clear. The heart size and vascularity are within normal limits. There is no effusion or pneumothorax. IMPRESSION: No acute-appearing abnormality. Dictated by: Dictated on workstation # [id number]
--- NOTE | 2019-04-12 08:09 | Cardiology Progress Note ---
Subjective Date Seen by Provider: Apr 12, 2019 Time Seen by Provider: 08:07 Subjective/Events-last exam patient is sitting in a chair, feeling better. No new complaint Review of Systems General: No Chills, No Night Sweats, No Fatigue, No Malaise, No Appetite, No Other HEENT: No Head Aches, No Visual Changes, No Eye Pain, No Ear Pain, No Dysphasia, No Sinus Congestion, No Post Nasal Drip, No Sore Throat, No Other Pulmonary: No Dyspnea, No Cough, No Pleuritic Chest Pain, No Other Cardiovascular: No: Chest Pain, Palpitations, Orthopnea, Paroxysmal Noc. Dyspnea, Edema, Lt Headedness, Other Objective-Cardiology Exam Last Set of Vital Signs Vital Signs 04/11/19 04/12/19 10:02 06:00 Pulse 65 Resp 25 B/P (MAP) 110/83 (92) Pulse Ox 90 O2 Delivery Nasal Cannula O2 Flow Rate 4.00 FiO2 28 Capillary Refill : Less Than 3 Seconds I&O Intake and Output 04/12/19 00:00 Intake Total 2050 ml Output Total 1575 ml Balance 475 ml Intake Oral 1050 ml IV Total 1000 ml Output Urine Total 1575 ml # Voids 2 # Bowel Movements 1 General: Alert, Oriented X3, Cooperative HEENT: Atraumatic, PERRLA Neck: Supple, No JVD, No Thyromegaly Lungs: Clear to Auscultation, Normal Air Movement Heart: Regular Rate, Normal S1, Normal S2, No Murmurs Abdomen: Normal Bowel Sounds, Soft, No Tenderness, No Hepatosplenomegaly, No Masses Extremities: No Clubbing, No Cyanosis, No Edema, Normal Pulses, No Tenderness/S welling Skin: No Rashes, No Breakdown, No Significant Lesion Neuro: Normal Gait, Normal Speech, Strength at 5/5 X4 Ext, Normal Tone, Sensation Intact Psych/Mental Status: Mental Status NL, Mood NL Results Lab Laboratory Tests 04/12/19 03:00 04/12/19 03:05 A/P-Cardiology Admission Diagnosis NSTMI Coronary artery disease Hypertension Hyperlipidemia Assessment/Plan Non-ST elevation myocardial infarction, status post cardiac catheterization and stenting to the right coronary artery with excellent results Coronary artery disease, . Diffuse coronary disease, status post cardiac catheterization and intervention as described below Sinus tachycardia, I will increase metoprolol to 50 mg twice a day and monitor 1. Acute non-ST elevation myocardial infarction, subtotal occlusion with diffuse ectasia in the distal right coronary artery, complex intervention requiring guide liner and multiple balloons then deployment of Maday 4 x 23 stent expanded to 4.5 millimeter with excellent results, proximal right coronary artery has diffuse ectasia with 50 percent stenosis, the distal right PDA is subtotally occluded, fairly small artery, will be treated medically 2. Severe stenosis at the distal circumflex artery with a long lesion involving the obtuse marginal branch, proper circumflex and AV groove branch, all arteries are less than 2 mm in diameter, will be treated medically, consideration for high risk intervention in the future. 3. 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 Mild to moderate ectasia in the LAD with mild to moderate disease diffusely nonobstructive disease 5. Normal left ventricular size and systolic function estimated ejection fraction 60 percent 6. Normal aortic arch and great vessels of the neck Hypertension, monitor blood pressure Hyperlipidemia, start Lipitor 80 mg daily, I will add fenofibrate Diabetes mellitus, followed and managed by primary care physician COPD/obstructive sleep apnea Obesity, BMI 36 Multiple back surgeries, recent knee surgery Clinical Quality Measures AMI/AHF: ASA po Prior to arrival: No DVT/VTE Risk/Contraindication: Risk Factor Score Per Nursin RFS Level Per Nursing on Admit: 4+=Very High ROSS RODRÍGUEZ MD Apr 12, 2019 08:09 POS
[2019-04-12] MEDS: ASPIRIN E.C. 81 MG (ECOTRIN) TAB PO SCH (08:12)
[2019-04-12] MEDS: TICAGRELOR 90 MG TABLET (BRILINTA) PO SCH ×2 (08:12→20:43)
[2019-04-12] MEDS: GABAPENTIN 300 MG (NEURONTIN) CAP PO SCH ×2 (08:13→20:45)
[2019-04-12] MEDS: ALLOPURINOL 300 MG (ZYLOPRIM) TAB PO SCH (08:14)
[2019-04-12] MEDS: lisINopril 20 MG (PRINIVIL) TABLET PO SCH (08:14)
[2019-04-12] MEDS: meTOprolol TARTRATE 50 MG (LOPRESSOR) TAB PO SCH ×2 (08:14→20:44)
[2019-04-12] MEDS: ENOXAPARIN 60 MG/0.6 ML (LOVENOX) SYR SC SCH (08:43)
[2019-04-12] MEDS: meTOprolol TARTRATE 25 MG (LOPRESSOR) TABLET PO SCH (08:43)
[2019-04-12] MEDS ORDERED: NON-FORMULARY MEDICATION 1 EA EA (Allopurinol 300 MG) PO SCH (09:00)
[2019-04-12] MEDS ORDERED: lisINopril 10 MG (PRINIVIL) TABLET PO SCH (09:00)
[2019-04-12] MEDS ORDERED: ALLOPURINOL 300 MG (ZYLOPRIM) TAB PO SCH (09:00)
--- NOTE | 2019-04-12 11:20 | NUR ---
Pastoral care visit.
[2019-04-12] MEDS ORDERED: ASPI-983 PO (13:27)
[2019-04-12] MEDS ORDERED: FENOFIBRATE MICRONIZED PO (13:27)
[2019-04-12] MEDS ORDERED: METO50TA15 PO (13:27)
[2019-04-12] MEDS ORDERED: TICA90TA PO (13:27)
--- NOTE | 2019-04-12 13:28 | Discharge Inst-Post CATH ---
Discharge Inst-CATH/EP Problems Reviewed?: Yes Post Cardiac Cath/EP D/C Inst Follow Up/Plan Appointment with Dr Núñez in 2-4 weeks <b>CARDIAC CATH/EP PROCEDURE DISCHARGE INSTRUCTIONS</b> ACTIVITY * Go Home directly and rest. * Limit activity of the leg (or wrist if it was used) for 7 days including aerob ics, swimming, jogging, bicycling, etc. * Restrict stair-climbing for 7 days if possible, if not, climb up with your non-cath leg, then bring together on the same step. * Avoid lifting, pushing, pulling or excessive movement of the affected extremity for 7 days. * Customary sexual activity may be resumed after 2 days-use caution not to use a position that strains or causes pain to the affected extremity. * No driving for 24 hours. * NO SMOKING. * Avoid straining for bowel movements for 7 days. * Gentle walking on level ground is allowed. * Returning to work will depend on the type of procedure and the results. Your doctor will discuss this with you. CALL YOUR DOCTOR FOR ANY OF THE FOLLOWING: *If bleeding from the puncture site occurs- Apply gentle pressure to site with clean cloth and call your doctor or EMS. * If a knot or lump forms under the skin, increases in size, or causes pain. * If bruising appears to be worsening or moving further down your leg instead of disappearing. * Temperature above 101 F. CARE OF YOUR GROIN INCISION; * Bruising or purple discoloration of the skin near the puncture site is common. * You may shower only, no bathtub bathing for 5 days. Be careful to avoid slipping as your leg may feel stiff. * If a closure device was used on your femoral artery, please see the attached guide regarding care of the device and your leg. * Leave dressing on FOR 24 hours. CARE OF YOUR WRIST INCISION; * Bruising or purple discoloration of the skin near the puncture site is common. * You may shower. * DO NOT submerge wrist. * Leave dressing on FOR 24 hours. ROSS NÚÑEZ MD Apr 12, 2019 1:28 pm POS
[2019-04-12] MEDS: NITROGLYCERIN 0.4 MG SL TABS BTL 25'S SL PRN ×3 (15:36→15:50)
--- NOTE | 2019-04-12 16:00 | NUR ---
Pt c/o CP 7/10, shooting pain. EKG obtained et Dr. Núñez notified. Nitro SL given. Pain decreased to 2-3/10. Dr. Núñez arrived at bedside. No other orders obtained.
[2019-04-12] MEDS: PANTOPRAZOLE 40 MG (PROTONIX) TAB PO SCH (16:42)
[2019-04-12] MEDS: ISOSORBIDE MONONITRATE 30 MG (IMDUR) TAB PO SCH (16:42)
--- NOTE | 2019-04-12 19:39 | Progress Note - Hospitalist ---
Subjective HPI/CC On Admission Date Seen by Provider: Apr 12, 2019 Time Seen by Provider: 09:00 CC: Non ST elevation [place] HPI: This is a 53yoWM who had yet to become established with Dr. Osborne Cardiology care who I see at the [facility] and also sees pain management, endocrinology, and Dr. Pineda for Pulmonology who presents with elevated Troponin s/p cardiac catheterization performed this morning showing extensive ec amina and total cholesterol remains at 500+ so he will remain in the hospital until tomorrow. Troponin became the highest elevation at 4.0 and his home medications will be restarted. Subjective/Events-last exam Hospital course: Pt had an uneventful hospital course after he was admitted for non-st elevation [place], underwent intervention during cardiac catheterization, multiple meds were changed per cardiology and he was deemed stable for discharge with close follow up with cardiology and sent in all new medications to [facility]. DC delayed due to mild tachycardia. Review of Systems General: Fatigue Objective Exam Vital Signs Vital Signs Date Time Temp Pulse Resp B/P (MAP) Pulse Ox O2 Delivery O2 Flow Rate FiO2 04/12/19 16:00 86 119/82 (94) Room Air 04/12/19 16:00 96 04/12/19 11:50 36.5 04/12/19 06:00 25 4.00 04/11/19 10:02 28 Capillary Refill : Less Than 3 Seconds General Appearance: No Apparent Distress, Chronically ill Respiratory: Lungs Clear Cardiovascular: Regular Rate, Rhythm Neurologic/Psychiatric: Alert, Oriented x3, No Motor/Sensory Deficits, Normal Mood/Affect Results/Procedures Lab Laboratory Tests 04/12/19 03:00 04/12/19 03:05 Patient resulted labs reviewed. Assessment/Plan Assessment and Plan Assess & Plan/Chief Complaint Assessment: NSTEMI s/p cath with stent DM OOC RIAZ HTN HLP Plan: Monitor lungs and cardiac status Monitor tachy Diagnosis/Problems Diagnosis/Problems (1) Non-STEMI (non-ST elevated myocardial infarction) Status: Acute (2) Type 2 diabetes mellitus Status: Acute Qualifiers: Diabetes mellitus manager intermediate insulin use: without senior care use Diabetes mellitus complication status: without complication Qualified Codes: E11.9 - Type 2 diabetes mellitus without complications (3) Chronic pain Status: Chronic Clinical Quality Measures AMI/AHF: ASA po Prior to arrival: No DVT/VTE Risk/Contraindication: Risk Factor Score Per Nursin RFS Level Per Nursing on Admit: 4+=Very High IRINEO GONSALEZ DO Apr 12, 2019 19:39 POS
[2019-04-12] MEDS: MONTELUKAST 10 MG (SINGULAIR) TAB PO SCH (20:46)
[2019-04-12] MEDS: INSULIN GLARGINE SQ SCH (20:46)
[2019-04-12] MEDS ORDERED: FENOFIBRATE 134 MG (LOFIBRA) CAPSULE PO SCH (21:00)
[2019-04-13] MEDS: RT-ALBUTEROL SULF 2.5 MG/3 ML PRE-MIX VIAL INH SCH ×2 (03:18→10:35)
[2019-04-13 03:21] LABS: BASOPHILS % (AUTO) 0 % (0-10); EOSINOPHILS # (AUTO) 0.1 10^3/uL (0.0-0.3); EOSINOPHILS % (AUTO) 1 % (0-10); HEMATOCRIT 43 % (40-54); HEMOGLOBIN 14.5 G/DL (13.3-17.7); LYMPHOCYTES # (AUTO) 1.9 X 10^3 (1.0-4.0); LYMPHOCYTES % (AUTO) 18 % (12-44); MEAN CORPUSCULAR HEMOGLOBIN 31 PG (25-34); MEAN CORPUSCULAR HGB CONC 33 G/DL (32-36); MEAN CORPUSCULAR VOLUME 92 FL (80-99); MEAN PLATELET VOLUME 11.2 FL (7.4-10.4); MONOCYTES % (AUTO) 10 % (0-12); NEUTROPHILS # (AUTO) 7.6 X 10^3 (1.8-7.8); NEUTROPHILS % (AUTO) 72 % (42-75); PLATELET COUNT 141 10^3/uL (130-400); RED CELL DISTRIBUTION WIDTH 13.9 % (10.0-14.5); WHITE BLOOD COUNT 10.6 10^3/uL (4.3-11.0)
--- NOTE | 2019-04-13 03:21 | NUR ---
This RN called Dr. Núñez to notify that at 031 patient started to c/o chest pain 08/01 and headache 12/01. Stat EKG taken per protocol, results sent to Dr. Núñez. Unable to give patient nitro due to SBP in 90's. Order received from Dr. Núñez to give patient Tylenol 650mg po for headache.
[2019-04-13 03:43] LABS: BUN/CREATININE RATIO 15; CALCIUM 9.2 MG/DL (8.5-10.1); CARBON DIOXIDE 23 MMOL/L (21-32); CHLORIDE 108 MMOL/L (98-107); CREATININE SERUM 1.14 MG/DL (0.60-1.30); GFR ESTIMATED > 60; GLUCOSE 133 MG/DL (70-105); MAGNESIUM 1.8 MG/DL (1.6-2.4); PHOSPHORUS 3.8 MG/DL (2.3-4.7); SODIUM 142 MMOL/L (135-145)
[2019-04-13 04:00] VITALS: BP 92/68
[2019-04-13] MEDS ORDERED: LACTATED RINGERS 1,000 ML IV SCH (05:30)
--- NOTE | 2019-04-13 05:32 | Pulmonary Progress Note ---
Subjective Time Seen by a Provider: 09:05 Subjective/Events-last exam Pt stated having acute CP yesterday however now resolved. Sepsis Event Evaluation Height, Weight, BMI Height: 5'.00" Weight: 260lbs. 8.0oz. 117.870129ch; 36.00 BMI Method:Stated Exam Exam Vital Signs Date Time Temp Pulse Resp B/P (MAP) Pulse Ox O2 Delivery O2 Flow Rate FiO2 04/13/19 04:00 36.4 04/13/19 04:00 92 22 92/68 (76) 94 Room Air 04/13/19 04:00 96 Room Air 04/13/19 00:47 93 04/13/19 00:00 96 Room Air 04/12/19 23:47 37.2 86 22 102/77 (85) 91 Room Air 04/12/19 22:08 95 Room Air 04/12/19 20:00 36.4 104 18 109/79 (89) 95 Room Air 04/12/19 20:00 96 Room Air 04/12/19 19:00 100 04/12/19 16:00 86 119/82 (94) Room Air 04/12/19 16:00 96 Room Air 04/12/19 14:50 96 Room Air 04/12/19 13:00 82 04/12/19 12:00 96 Room Air 04/12/19 11:50 36.5 04/12/19 09:27 95 Room Air 04/12/19 08:00 96 Room Air 04/12/19 07:00 111 04/12/19 06:00 65 25 110/83 (92) 90 Nasal Cannula 4.00 I & O 04/13/19 07:00 Intake Total 1520 ml Output Total 3090 ml Balance -1570 ml Height & Weight Height: 5'.00" Weight: 260lbs. 8.0oz. 117.899282ah; 36.00 BMI Method:Stated General Appearance: No Apparent Distress, Chronically ill HEENT: PERRL/EOMI, Normal ENT Inspection, Pharynx Normal, Moist Mucous Membranes Neck: Full Range of Motion, Normal Inspection, Non Tender Respiratory: Lungs Clear Cardiovascular: Regular Rate, Rhythm Capillary Refill: Less Than 3 Seconds Peripheral Pulses: 2+ Dorsalis Pedis (R), 2+ Left Dors-Pedis (L), 2+ Radial Pulses (R), 2+ Radial Pulses (L) Gastrointestinal: tenderness (epigastric palpation causes pain that radiates to chest ) Extremity: Normal Capillary Refill, Normal Inspection, Normal Range of Motion, Non Tender, No Calf Tenderness, No Pedal Edema Neurologic/Psychiatric: Alert, Oriented x3, No Motor/Sensory Deficits, Normal Mood/Affect Skin: Normal Color, Warm/Dry Lymphatic: No Adenopathy Results Lab Laboratory Tests 04/12/19 03:00 04/12/19 03:05 04/13/19 02:55 Assessment/Plan Assessment/Plan Chest pain, NSTEMI -s/p cath with RCA stent placement 04/11/19 -Nitroglycerin -aspirin Hypotension -Give liter bolus of LR over 2 hours Uncontrolled type II DM -Monitor -Sliding scale insulin Hyperlipidemia -Atorvastatin RIAZ -Home CPAP non compliant Gout -Allopurinol Hx of multiple back surgeries and neuropathy -gabapentin BIANCA CARR DO Apr 13, 2019 05:32 POS
[2019-04-13] MEDS: inSUlin ASPART (NovoLOG) 1 UNIT/0.01 ML (CHARGE PER UNIT) SC SCH ×2 (06:08→11:11)
[2019-04-13] MEDS: HUMALOG 100 UNIT/ML SQ SCH ×2 (06:08→11:11)
[2019-04-13] MEDS: OMEGA 3 (FISH OIL) 1000 MG CAP PO SCH (06:08)
--- NOTE | 2019-04-13 07:35 | Diagnostic Imaging Report ---
INDICATION: Dyspnea. Comparison with 04/12/2019. FINDINGS: Portable chest. The lungs are well-aerated and clear. Heart is not enlarged. No pulmonary edema. No pneumothorax or pleural effusion. No bony abnormalities. IMPRESSION: Negative portable chest. Dictated by: Dictated on workstation # [id number]
[2019-04-13 08:00] VITALS: BP 135/92
[2019-04-13] MEDS: TICAGRELOR 90 MG TABLET (BRILINTA) PO SCH (08:16)
[2019-04-13] MEDS: ASPIRIN E.C. 81 MG (ECOTRIN) TAB PO SCH (08:16)
[2019-04-13] MEDS: GABAPENTIN 300 MG (NEURONTIN) CAP PO SCH (08:16)
[2019-04-13] MEDS: ISOSORBIDE MONONITRATE 30 MG (IMDUR) TAB PO SCH (08:16)
[2019-04-13] MEDS: ALLOPURINOL 300 MG (ZYLOPRIM) TAB PO SCH (08:17)
[2019-04-13] MEDS: meTOprolol TARTRATE 50 MG (LOPRESSOR) TAB PO SCH (08:18)
[2019-04-13] MEDS: lisINopril 20 MG (PRINIVIL) TABLET PO SCH (08:18)
[2019-04-13] MEDS: PANTOPRAZOLE 40 MG (PROTONIX) TAB PO SCH (08:19)
--- NOTE | 2019-04-13 09:24 | Cardiology Progress Note ---
Subjective Date Seen by Provider: Apr 13, 2019 Time Seen by Provider: 09:23 Subjective/Events-last exam patient had chest pain yesterday, discharge was canceled and kept overnight, given some Imdur and reported significant headache. Responded to Tylenol, feeling better today, mild discomfort Review of Systems General: No Chills, No Night Sweats, No Fatigue, No Malaise, No Appetite, No O ther HEENT: No Head Aches, No Visual Changes, No Eye Pain, No Ear Pain, No Dys phasia, No Sinus Congestion, No Post Nasal Drip, No Sore Throat, No Other Pulmonary: No Dyspnea, No Cough, No Pleuritic Chest Pain, No Other Cardiovascular: Chest Pain; No: Palpitations, Orthopnea, Paroxysmal Noc. Dyspnea, Edema, Lt Headedness, Other Objective-Cardiology Exam Last Set of Vital Signs Vital Signs 04/11/19 04/12/19 04/13/19 10:02 06:00 06:37 Pulse 99 O2 Flow Rate 4.00 FiO2 28 Capillary Refill : Less Than 3 Seconds I&O Intake and Output 04/13/19 00:00 Intake Total 1620 ml Output Total 4565 ml Balance -2945 ml Intake Oral 1620 ml Output Urine Total 4565 ml General: Alert, Oriented X3, Cooperative HEENT: Atraumatic, PERRLA Neck: Supple, No JVD, No Thyromegaly Lungs: Clear to Auscultation, Normal Air Movement Heart: Regular Rate, Normal S1, Normal S2, No Murmurs Abdomen: Normal Bowel Sounds, Soft, No Tenderness, No Hepatosplenomegaly, No Masses Extremities: No Clubbing, No Cyanosis, No Edema, Normal Pulses, No Tenderness/Swelling Skin: No Rashes, No Breakdown, No Significant Lesion Neuro: Normal Gait, Normal Speech, Strength at 5/5 X4 Ext, Normal Tone, Sensation Intact Psych/Mental Status: Mental Status NL, Mood NL Results Lab Laboratory Tests 04/13/19 02:55 A/P-Cardiology Admission Diagnosis NSTMI Coronary artery disease Hypertension Hyperlipidemia Assessment/Plan Non-ST elevation myocardial infarction, status post cardiac catheterization and stenting to the right coronary artery with excellent results Recurrent chest pain, probably due to the occlusion of the distal right PDA. Treated conservatively. The dominant right coronary artery has severe disease that was treated with stenting. I will start him on long-acting nitroglycerin if he can tolerate the medication without significant Coronary artery disease, . Diffuse coronary disease, status post cardiac catheterization and intervention as described below Sinus tachycardia, I will increase metoprolol to 50 mg twice a day and monitor 1. Acute non-ST elevation myocardial infarction, subtotal occlusion with diffuse ectasia in the distal right coronary artery, complex intervention requiring guide liner and multiple balloons then deployment of Maday 4 x 23 stent expanded to 4.5 millimeter with excellent results, proximal right coronary artery has diffuse ectasia with 50 percent stenosis, the distal right PDA is subtotally occluded, fairly small artery, will be treated medically 2. Severe stenosis at the distal circumflex artery with a long lesion involving the obtuse marginal branch, proper circumflex and AV groove branch, all arteries are less than 2 mm in diameter, will be treated medically, consideration for high risk intervention in the future. 3. 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 Mild to moderate ectasia in the LAD with mild to moderate disease diffusely nonobstructive disease 5. Normal left ventricular size and systolic function estimated ejection fraction 60 percent 6. Normal aortic arch and great vessels of the neck Hypertension, monitor blood pressure Hyperlipidemia, start Lipitor 80 mg daily, I will add fenofibrate Diabetes mellitus, followed and managed by primary care physician COPD/obstructive sleep apnea Obesity, BMI 36 Multiple back surgeries, recent knee surgery Clinical Quality Measures AMI/AHF: ASA po Prior to arrival: No DVT/VTE Risk/Contraindication: Risk Factor Score Per Nursin RFS Level Per Nursing on Admit: 4+=Very High ROSS RODRÍGUEZ MD Apr 13, 2019 09:24 POS
[2019-04-13] MEDS ORDERED: ISOS30TA3 PO (09:25)
[2019-04-13] MEDS ORDERED: Nitroglycerin SL (09:25)
--- NOTE | 2019-04-13 10:32 | Discharge Summary ---
Discharge Summary Hospital Course Was the Problem List Reviewed?: Yes Problems/Dx: (1) Non-STEMI (non-ST elevated myocardial infarction) Status: Acute (2) Type 2 diabetes mellitus Status: Acute Qualifiers: Qualified Codes: E11.9 - Type 2 diabetes mellitus without complications (3) Chronic pain Status: Chronic Hospital Course Date of Admission: Apr 11, 2019 at 09:34 Admission Diagnosis : Family Physician/Provider: Pat Stevens DO Date of Discharge: 04/13/19 Discharge Diagnosis: NSTEMI, unstable angina Hospital Course: Hospital Course: Pt had an uneventful hospital course after he was admitted for non ST elevation MO requiring intervention. He did require an additional day due to chest pain that was managed with Imdur and supportive care. He was deemed stable for DC and will have close follow up with Dr. Núñez. Labs and Pending Lab Test: Laboratory Tests 04/13/19 02:55: White Blood Count 10.6, Red Blood Count 4.71, Hemoglobin 14.5, Hematocrit 43, Mean Corpuscular Volume 92, Mean Corpuscular Hemoglobin 31, Mean Corpuscular Hemoglobin Concent 33, Red Cell Distribution Width 13.9, Platelet Count 141, Mean Platelet Volume 11.2H, Neutrophils (%) (Auto) 72, Lymphocytes (%) (Auto) 1 8, Monocytes (%) (Auto) 10, Eosinophils (%) (Auto) 1, Basophils (%) (Auto) 0, Neutrophils # (Auto) 7.6, Lymphocytes # (Auto) 1.9, Monocytes # (Auto) 1.0, Eosinophils # (Auto) 0.1, Basophils # (Auto) 0.0, Sodium Level 142, Potassium Level 4.0, Chloride Level 108H, Carbon Dioxide Level 23, Anion Gap 11, Blood Urea Nitrogen 17, Creatinine 1.14, Estimat Glomerular Filtration Rate > 60, BUN/Creatinine Ratio 15, Glucose Level 133H, Calcium Level 9.2, Phosphorus Level 3.8, Magnesium Level 1.8, Troponin I 3.251*H Microbiology 04/10/19 MRSA Screen - Final, Complete MRSA not isolated Home Meds Active [Nitroglycerin] 0.4 MG Btl 0 Mg SL UD PRN Isosorbide Mononitrate ER (Isosorbide Mononitrate) 30 Mg Tab.er.24h 30 Mg PO DAILY Metoprolol Tartrate 50 Mg Tablet 50 Mg PO BID Aspirin EC (Aspirin) 81 Mg Tablet. 81 Mg PO DAILY [Fenofibrate,Micronized] 134 MG Capsule 134 Mg PO HS Brilinta (Ticagrelor) 90 Mg Tablet 90 Mg PO BID Reported Vitamin D3 (Cholecalciferol (Vitamin D3)) 5,000 Unit Capsule 5,000 Unit PO DAILY Hydrocodone-Acetamin 5-325 mg (Hydrocodone/Acetaminophen) 1 Each Tablet 1 Tab PO Q6H PRN Children Multivitamin (Pediatric Multivit Comb No.136) 1 Each Tab.chew 2 Tab.chew PO DAILY Fluticasone-Salmeterol 250-50 (Fluticasone Propion/Salmeterol) 1 Each Blst.w.dev 1 Puff INH BID PRN [place] Max Solostar (Insulin Glargine,Hum.rec.anlog) 300 Unit/1 Ml Insuln.pen 120 Units SC HS [place]-3 Acid Ethyl Esters 1 Gm Capsule 2 Gm PO BID TAKES 2 (1GM) CAPSULES Lisinopril 20 Mg Tablet 20 Mg PO DAILY Gabapentin 300 Mg Capsule 300 Mg PO DAILY Metformin HCl ER (Metformin HCl) 500 Mg Tab.er.24h 500 Mg PO DAILY Diclofenac Sodium 100 Gm Gel..gram. 2 Gm TOP QID PRN Humalog Kwikpen (Insulin Lispro) 100 Unit/1 Ml Insuln.pen 52 Unit SQ TIDAC Proair Hfa (Albuterol Sulfate) 1 Puff Puff 2 Puff IH Q4H PRN 1 PUFF = 90 MCG Ascorbic Acid 500 Mg Tablet 1,000 Mg PO BID Allopurinol 300 Mg Tablet 300 Mg PO DAILY Gabapentin 300 Mg Capsule 1,500 Mg PO HS TAKES 5 (300MG) CAPSULES Co Q-10 (Ubidecarenone) 200 Mg Capsule 200 Mg PO DAILY TAKEA ALONG WITH 100MG CAPSULE FOR A TOTAL DAILY DOSE OF 300MG Promethazine Tablet (Promethazine HCl) 25 Mg Tablet 25 Mg PO Q6H PRN Livalo (Pitavastatin Calcium) 4 Mg Tablet 4 Mg PO HS Baclofen 10 Mg Tablet 10 Mg PO TID PRN Montelukast Sodium 10 Mg Tablet 10 Mg PO HS Co Q-10 (Ubidecarenone) 100 Mg Capsule 100 Mg PO DAILY TAKES ALONG WITH 200MG CAPSULE FOR A TOTAL DAILY DOSE OF 300MG Assessment/Pt Instructions Dr Núñez in 1 week Discharge Planning: <30 minutes discharge planning Discharge Instructions Discharge Diet: ADA Diet, Cardiac Diet Activity as Tolerated: Yes Discharge Physical Examination Vital Signs Vital Signs Date Time Temp Pulse Resp B/P (MAP) Pulse Ox O2 Delivery O2 Flow Rate FiO2 04/13/19 06:37 99 04/13/19 04:00 36.4 04/13/19 04:00 22 92/68 (76) 94 Room Air 04/12/19 06:00 4.00 04/11/19 10:02 28 General Appearance: No Apparent Distress, WD/WN Respiratory: Lungs Clear Cardiovascular: Regular Rate, Rhythm Neurologic/Psychiatric: Alert, Oriented x3, No Motor/Sensory Deficits, Normal Mood/Affect Allergies: Coded Allergies: No Known Drug Allergies (Unverified , 11/21/18) Discharge Summary Date of Admission Apr 11, 2019 at 09:34 Date of Discharge Discharge Date: Apr 13, 2019 Admission Diagnosis Assessment: NSTEMI Cath with intervention RIAZ DM HTN HLP Chronic pain Plan: Home meds Appreciate Dr Núñez and Dr Pineda Discharge Diagnosis Assessment: NSTEMI s/p cath with stent DM OOC RIAZ HTN HLP Plan: Monitor lungs and cardiac status Monitor tachy (1) Non-STEMI (non-ST elevated myocardial infarction) Status: Acute (2) Type 2 diabetes mellitus Status: Acute Qualifiers: Qualified Codes: E11.9 - Type 2 diabetes mellitus without complications (3) Chronic pain Status: Chronic Clinical Quality Measures AMI/AHF: ASA po Prior to arrival: No DVT/VTE Risk/Contraindication: Risk Factor Score Per Nursin RFS Level Per Nursing on Admit: 4+=Very High PAT STEVENS DO Apr 13, 2019 10:32 POS
--- NOTE | 2019-04-13 11:24 | NUR ---
This nurse called [facility] in [facility] to order Imdur 30mg daily per order repeated back and verified.
[2019-04-14] MEDS ORDERED: ISOSORBIDE MONONITRATE 30 MG (IMDUR) TAB PO SCH (09:00)
== END 2019-04-13 12:36 | disposition home or self-care (01) | DRG 247 ==
LOC: EDUNIT# 21:02 → ER 21:03 → ICU 22:00 → UNDOADMOB 22:00 → ICU 23:45 → INTOOBSV 04-11 09:34 → OBSVTOIN 04-11 09:34 → UNDODISIN 04-13 12:36
PROVIDERS: ADMIT Internal Medicine; ATTEND Internal Medicine
PROC: 027034Z Dilation of Coronary Artery, One Artery with Drug-eluting Intraluminal Device, Percutaneous Approach (ICD-10-PCS; principal; 2019-04-13)
PROC: 4A023N7 Measurement of Cardiac Sampling and Pressure, Left Heart, Percutaneous Approach (ICD-10-PCS; 2019-04-13)
PROC: B2151ZZ Fluoroscopy of Left Heart using Low Osmolar Contrast (ICD-10-PCS; 2019-04-13)
PROC: B2111ZZ Fluoroscopy of Multiple Coronary Arteries using Low Osmolar Contrast (ICD-10-PCS; 2019-04-13)
PROC: B3101ZZ Fluoroscopy of Thoracic Aorta using Low Osmolar Contrast (ICD-10-PCS; 2019-04-13)
DX: I21.4 Non-ST elevation (NSTEMI) myocardial infarction (principal); E11.40 Type 2 diabetes mellitus with diabetic neuropathy, unspecified; G89.29 Other chronic pain; G47.33 Obstructive sleep apnea (adult) (pediatric); I10 Essential (primary) hypertension; E78.5 Hyperlipidemia, unspecified; J44.9 Chronic obstructive pulmonary disease, unspecified; E66.9 Obesity, unspecified; Z68.36 Body mass index [BMI] 36.0-36.9, adult; I95.9 Hypotension, unspecified; M10.9 Gout, unspecified; R00.0 Tachycardia, unspecified; E11.65 Type 2 diabetes mellitus with hyperglycemia; E78.00 Pure hypercholesterolemia, unspecified; G43.909 Migraine, unspecified, not intractable, without status migrainosus; M19.91 Primary osteoarthritis, unspecified site; M79.7 Fibromyalgia; M06.9 Rheumatoid arthritis, unspecified; F41.9 Anxiety disorder, unspecified; F32.9 Major depressive disorder, single episode, unspecified; I25.10 Atherosclerotic heart disease of native coronary artery without angina pectoris; K21.9 Gastro-esophageal reflux disease without esophagitis; Z79.4 Long term (current) use of insulin; Z91.19 Patient's noncompliance with other medical treatment and regimen; Z87.01 Personal history of pneumonia (recurrent); Z87.442 Personal history of urinary calculi; Z86.010 Personal history of colon polyps
CPT/HCPCS: 36221; 36415; 71045; 71046; 80048; 80053; 80061; 83735; 83874; 84100; 84484; 85025; 85027; 85610; 85730; 87081; 93005; 93041; 93458; 94640; 94760; 96361; 96372; 96374

== ENCOUNTER 2019-05-03 20:28 | Observation (INO) | payer MEDICARE, OTHER ==
[~2019-05-03] VITALS: Ht 180.3 cm; Wt 122.0 kg
[~2019-05-03 20:28] MED LIST changes: +ASPI-983 PO; +DICL100G31 TOP; +FENOFIBRATE MICRONIZED PO; +FLUT1BLS12 INH; +INSU300I3 SC; +ISOS30TA3 PO; +METF500T8 PO; +METO50TA15 PO; +Nitroglycerin SL; +OMEG-105 PO; +PEDI1TAB60 PO; +TICA90TA PO
[2019-05-03 20:51] LABS: BASOPHILS % (AUTO) 0 % (0-10); EOSINOPHILS # (AUTO) 0.2 10^3/uL (0.0-0.3); EOSINOPHILS % (AUTO) 2 % (0-10); HEMATOCRIT 43 % (40-54); HEMOGLOBIN 14.9 G/DL (13.3-17.7); LYMPHOCYTES # (AUTO) 2.1 X 10^3 (1.0-4.0); LYMPHOCYTES % (AUTO) 22 % (12-44); MEAN CORPUSCULAR HEMOGLOBIN 32 PG (25-34); MEAN CORPUSCULAR HGB CONC 35 G/DL (32-36); MEAN CORPUSCULAR VOLUME 91 FL (80-99); MEAN PLATELET VOLUME 10.8 FL (7.4-10.4); MONOCYTES % (AUTO) 11 % (0-12); NEUTROPHILS # (AUTO) 6.1 X 10^3 (1.8-7.8); NEUTROPHILS % (AUTO) 65 % (42-75); PLATELET COUNT 181 10^3/uL (130-400); RED CELL DISTRIBUTION WIDTH 13.9 % (10.0-14.5); WHITE BLOOD COUNT 9.3 10^3/uL (4.3-11.0)
[2019-05-03] MEDS ORDERED: morphine INJ 10 MG/ML 1ML (SYR OR VIAL) IVP STA ×2 (20:58→22:00)
[2019-05-03] MEDS ORDERED: TICAGRELOR 90 MG TABLET (BRILINTA) PO SCH (21:00)
[2019-05-03] MEDS ORDERED: ASPIRIN 81 MG CHEW (CHILDREN'S ASA) PO ONE (21:00)
--- NOTE | 2019-05-03 21:10 | Diagnostic Imaging Report ---
EXAM: CHEST 1 VIEW, AP/PA ONLY INDICATION: Chest pain. Dyspnea. COMPARISON: 04/13/2019. FINDINGS: Low lung volumes accentuate the heart size and pulmonary vascularity. No focal pulmonary opacity, pleural effusion or pneumothorax. No acute osseous findings. IMPRESSION: Low lung volumes. Chest otherwise unremarkable. Dictated by: Dictated on workstation # [id number]
[2019-05-03 21:12] LABS: PROTHROMBIN TIME PATIENT 14.1 SEC (12.2-14.7)
[2019-05-03 21:13] LABS: ALANINE AMINOTRANSFERASE 54 U/L (0-55); ALBUMIN 4.2 GM/DL (3.2-4.5); ALKALINE PHOSPHATASE 72 U/L (40-136); BILIRUBIN,TOTAL 0.4 MG/DL (0.1-1.0); BUN/CREATININE RATIO 14; CALCIUM 9.1 MG/DL (8.5-10.1); CARBON DIOXIDE 20 MMOL/L (21-32); CHLORIDE 109 MMOL/L (98-107); CREATININE SERUM 1.59 MG/DL (0.60-1.30); GFR ESTIMATED 46; GLUCOSE 244 MG/DL (70-105); MAGNESIUM 1.6 MG/DL (1.6-2.4); POTASSIUM 4.2 MMOL/L (3.6-5.0); SODIUM 142 MMOL/L (135-145); TOTAL PROTEIN 7.1 GM/DL (6.4-8.2)
--- NOTE | 2019-05-03 21:27 | ED Chest Pain ---
General Chief Complaint: Chest Pain Stated Complaint: HEART CATH TODAY/CP/SOB Nursing Triage Note: Pt ambulates to RM 5 with c/o medial chest pain, SOB and dizziness that started approx 2000 this evening. Pt states that he got a stent placed today. Pt is in sinus rhythm upon arrival, 96% on RA with increased work of breathing. Nursing Sepsis Screen: No Definite Risk Source: patient Exam Limitations: no limitations History of Present Illness Date Seen by Provider: May 03, 2019 Time Seen by Provider: 20:30 Initial Comments 53-year-old male who presents to the emergency room with complaints of chest pain that started around 8:00 this evening. He reports that he had a stent placed in [place] today and had a MD 2 weeks ago and had stents placed by Dr. Núñez at that time. He complains of medial chest pain that does not radiate anywhere and shortness of breath and dizziness. He denies nausea or vomiting. He is lucid take aspirin and Berlinta but was only taking his aspirin this morning. He was given aspirin and berlinta on arrival to the emergency room. Timing/Duration: 1 hour Severity/Quality: tearing Prior CP/Workup: cardiac cath, heart attack ASA po ASSET AVAILABILITY LEADER: No NTG SL ASSET AVAILABILITY LEADER: No Associated Symptoms: dizziness, shortness of breath Allergies and Home Medications Allergies Coded Allergies: No Known Drug Allergies (Unverified , 11/21/18) Home Medications Albuterol Sulfate 1 Puff Puff, 2 PUFF IH Q4H PRN for SHORTNESS OF BREATH, (Reported) 1 PUFF = 90 MCG Allopurinol 300 Mg Tablet, 300 MG PO DAILY, (Reported) Ascorbic Acid 500 Mg Tablet, 1,000 MG PO BID, (Reported) Aspirin 81 Mg Tablet., 81 MG PO DAILY Prescribed by: ROSS NÚÑEZ on 04/12/19 1327 Baclofen 10 Mg Tablet, 10 MG PO TID PRN for SPASMS, (Reported) Cholecalciferol (Vitamin D3) 5,000 Unit Capsule, 5,000 UNIT PO DAILY, (Reported) Diclofenac Sodium 100 Gm Gel..gram., 2 GM TOP QID PRN for SHOULDER PAIN, (Reported) Fluticasone Propion/Salmeterol 1 Each Blst.w.dev, 1 PUFF INH BID PRN for SHORTNESS OF BREATH, (Reported) Gabapentin 300 Mg Capsule, 1,500 MG PO HS, (Reported) TAKES 5 (300MG) CAPSULES Gabapentin 300 Mg Capsule, 300 MG PO DAILY, (Reported) Hydrocodone/Acetaminophen 1 Each Tablet, 1 TAB PO Q6H PRN for PAIN-MODERATE (5- 7), (Reported) Insulin Glargine,Hum.rec.anlog 300 Unit/1 Ml Insuln.pen, 120 UNITS SC HS, (Reported) Insulin Lispro 100 Unit/1 Ml Insuln.pen, 52 UNIT SQ TIDAC, (Reported) Lisinopril 20 Mg Tablet, 20 MG PO DAILY, (Reported) Metformin HCl 500 Mg Tab.er.24h, 500 MG PO DAILY, (Reported) Metoprolol Tartrate 50 Mg Tablet, 50 MG PO BID Prescribed by: ROSS NÚÑEZ on 04/12/19 132 Montelukast Sodium 10 Mg Tablet, 10 MG PO HS, (Reported) [place]-3 Acid Ethyl Esters 1 Gm Capsule, 2 GM PO BID, (Reported) TAKES 2 (1GM) CAPSULES Pediatric Multivit Comb No.136 1 Each Tab.chew, 2 TAB.CHEW PO DAILY, (Reported) Pitavastatin Calcium 4 Mg Tablet, 4 MG PO HS, (Reported) Promethazine HCl 25 Mg Tablet, 25 MG PO Q6H PRN for NAUSEA/VOMITING-2ND LINE, (Reported) Ticagrelor 90 Mg Tablet, 90 MG PO BID Prescribed by: ROSS NÚÑEZ on 04/12/19 132 Ubidecarenone 100 Mg Capsule, 100 MG PO DAILY, (Reported) TAKES ALONG WITH 200MG CAPSULE FOR A TOTAL DAILY DOSE OF 300MG Ubidecarenone 200 Mg Capsule, 200 MG PO DAILY, (Reported) TAKEA ALONG WITH 100MG CAPSULE FOR A TOTAL DAILY DOSE OF 300MG [Fenofibrate,Micronized] 134 MG CAPSULE, 134 MG PO HS Prescribed by: ROSS NÚÑEZ on 04/12/19 132 [Nitroglycerin] 0.4 MG BTL, 0 MG SL UD PRN for CHEST PAIN (ANGINA) Prescribed by: ROSS NÚÑEZ on 04/13/19 0913 Patient Home Medication List Home Medication List Reviewed: Yes Review of Systems Review of Systems Constitutional: see HPI; No chills; dizziness; No fever Respiratory: See HPI, Shortness of Air Cardiovascular: See HPI, Chest Pain All Other Systems Reviewed Negative Unless Noted: Yes Past Trawpzd-Tyyulg-Snhwaf Hx Past Med/Social Hx: Reviewed Nursing Past Med/Soc Hx Patient Social History Alcohol Use: Rarely Uses Number of Drinks Today: BB Alcohol Beverage of Choice: Beer, [place] Recreational Drug Use: No Smoking Status: Never a Smoker Type Used: Smokeless Tobacco 2nd Hand Smoke Exposure: No Recent Foreign Travel: No Contact w/Someone Who Travel: No Recent Infectious Disease Expo: No Recent Hopitalizations: Yes (stent 05/03/19) Physical Abuse: No Sexual Abuse: No Mistreated: No Fear: No Immunizations Up To Date Tetanus Booster (TDap): Unknown PED Vaccines UTD: Yes Date of Pneumonia Vaccine: Feb 24, 2017 Date of Influenza Vaccine: Feb 22, 2019 Seasonal Allergies Seasonal Allergies: Yes Past Medical History Surgeries: Yes (LITHOTRIPSY, BACK X4, L KNEE ACL REPAIR, WISDOM TEETH,) Abdominal, Adenoidectomy, Appendectomy, Gallbladder, Orthopedic, Tonsillectomy Respiratory: Yes (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, 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) Pneumonia, Sleep Apnea, COPD Currently Using CPAP: No Currently Using BIPAP: No Cardiac: Yes High Cholesterol, Hypertension Neurological: Yes Headaches /Migraines Reproductive Disorders: No Sexually Transmitted Disease: No HIV/AIDS: No Genitourinary: Yes Kidney Stones, Renal Failure Gastrointestinal: Yes (ABDOMINAL ADHESIONS, FREQUENT SMALL BOWEL OBSTRUCTIONS) Abdominal Hernia, Obstructive Bowel, Polyps Musculoskeletal: Yes Degenerate Disk Disease, Arthritis, Fibromyalgia, Rheumatoid Arthritis, Back Injury, Chronic Back Pain, Fractures, Gout Endocrine: Yes (WEARS CONTINUOS GLUCOSE MONITOR) Diabetes, Insulin dep HEENT: No Tonsilitis Loss of Vision: Bilateral Hearing Impairment: Denies Cancer: No Psychosocial: Yes Anxiety, Depression Integumentary: No Blood Disorders: No Adverse Reaction/Blood Tranf: No (N/A) Family Medical History Reviewed Nursing Family Hx Abdominal aortic aneurysm 09 BROTHER Cancer 03 MOTHER Cancer of colon 03 MOTHER 09 SISTER 19 MOTHER FH: COPD (chronic obstructive pulmonary disease) 19 FATHER FH: leukemia 09 SISTER 19 MOTHER FHx: stroke 19 FATHER Family history: Diabetes mellitus 09 BROTHER 09 SISTER 09 SISTER 09 SISTER Family history: Gastrointestinal disease 03 MOTHER 09 BROTHER No Pertinent Family Hx Physical Exam Vital Signs Vital Signs - First Documented 05/03/19 05/03/19 20:43 21:05 Temp 36.6 Pulse 87 Resp 20 B/P (MAP) 158/94 (115) Pulse Ox 95 O2 Delivery Room Air O2 Flow Rate 2.00 Capillary Refill : Less Than 3 Seconds Height, Weight, BMI Height: 5'11.00" Weight: 260lbs. 8.0oz. 117.246878vf; 37.00 BMI Method:Stated General Appearance: No Apparent Distress, WD/WN Neck: Full Range of Motion Respiratory: Chest Non Tender, Lungs Clear, Normal Breath Sounds, No Accessory Muscle Use, No Respiratory Distress Cardiovascular: Regular Rate, Rhythm, No Edema, No Gallop, No JVD, No Murmur, Normal Peripheral Pulses Extremity: Normal Capillary Refill, No Pedal Edema Neurologic/Psychiatric: Oriented x3, Normal Mood/Affect Skin: Normal Color, Warm/Dry Progress/Results/Core Measures Results/Orders Lab Results Laboratory Tests Test 05/03/19 20:46 05/03/19 21:31 Range/Units White Blood Count 9.3 4.3-11.0 10^3/uL Red Blood Count 4.70 4.35-5.85 10^6/uL Hemoglobin 14.9 13.3-17.7 G/DL Hematocrit 43 40-54 % Mean Corpuscular Volume 91 80-99 FL Mean Corpuscular Hemoglobin 32 25-34 PG Mean Corpuscular Hemoglobin Concent 35 32-36 G/DL Red Cell Distribution Width 13.9 10.0-14.5 % Platelet Count 181 130-400 10^3/uL Mean Platelet Volume 10.8 H 7.4-10.4 FL Neutrophils (%) (Auto) 65 42-75 % Lymphocytes (%) (Auto) 22 12-44 % Monocytes (%) (Auto) 11 0-12 % Eosinophils (%) (Auto) 2 0-10 % Basophils (%) (Auto) 0 0-10 % Neutrophils # (Auto) 6.1 1.8-7.8 X 10^3 Lymphocytes # (Auto) 2.1 1.0-4.0 X 10^3 Monocytes # (Auto) 1.0 0.0-1.0 X 10^3 Eosinophils # (Auto) 0.2 0.0-0.3 10^3/uL Basophils # (Auto) 0.0 0.0-0.1 10^3/uL Prothrombin Time 14.1 12.2-14.7 SEC INR Comment 1.0 0.8-1.4 Activated Partial Thromboplast Time 29 24-35 SEC Sodium Level 142 135-145 MMOL/L Potassium Level 4.2 3.6-5.0 MMOL/L Chloride Level 109 H 98-107 MMOL/L Carbon Dioxide Level 20 L 21-32 MMOL/L Anion Gap 13 5-14 MMOL/L Blood Urea Nitrogen 23 H 7-18 MG/DL Creatinine 1.59 H 0.60-1.30 MG/DL Estimat Glomerular Filtration Rate 46 BUN/Creatinine Ratio 14 Glucose Level 244 H 70-105 MG/DL Calcium Level 9.1 8.5-10.1 MG/DL Corrected Calcium 8.9 8.5-10.1 MG/DL Magnesium Level 1.6 1.6-2.4 MG/DL Total Bilirubin 0.4 0.1-1.0 MG/DL Aspartate Amino Transf (AST/SGOT) 31 5-34 U/L Alanine Aminotransferase (ALT/SGPT) 54 0-55 U/L Alkaline Phosphatase 72 40-136 U/L Myoglobin 68.0 10.0-92.0 NG/ML Troponin I < 0.028 <0.028 NG/ML B-Type Natriuretic Peptide 15.7 <100.0 PG/ML Total Protein 7.1 6.4-8.2 GM/DL Albumin 4.2 3.2-4.5 GM/DL Urine Color YELLOW Urine Clarity CLEAR Urine pH 5.5 5-9 Urine Specific [place] >=1.030 1.016-1.022 Urine Protein 2+ H NEGATIVE Urine Glucose (UA) 2+ H NEGATIVE Urine Ketones NEGATIVE NEGATIVE Urine Nitrite NEGATIVE NEGATIVE Urine Bilirubin NEGATIVE NEGATIVE Urine Urobilinogen 0.2 < = 1.0 MG/DL Urine Leukocyte Esterase NEGATIVE NEGATIVE Urine RBC (Auto) NEGATIVE NEGATIVE Urine RBC NONE /HPF Urine WBC NONE /HPF Urine Crystals PRESENT H /LPF Urine Amorphous Sediment FEW JESSICA URATES H /LPF Urine Bacteria NEGATIVE /HPF Urine Casts NONE /LPF Urine Mucus NEGATIVE /LPF Urine Culture Indicated NO My Orders Orders - JUSTINE MONTERO Cbc With Automated Diff (05/03/19 20:30) Magnesium (05/03/19 20:30) Chest 1 View, Ap/Pa Only (05/03/19 20:30) Ekg Tracing (05/03/19 20:30) Comprehensive Metabolic Panel (05/03/19 20:30) Myoglobin Serum (05/03/19 20:30) Protime With Inr (05/03/19 20:30) Partial Thromboplastin Time (05/03/19 20:30) O2 (05/03/19 20:30) Monitor-Rhythm Ecg Trace Only (05/03/19 20:30) Lipid Panel (05/04/19 06:00) Ed Iv/Invasive Line Start (05/03/19 20:30) BNP (05/03/19 20:30) Troponin I (05/03/19 20:46) Morphine Injection (Morphine Injection (05/03/19 20:58) Aspirin Chewable Tablet (Baby Aspirin Ch (05/03/19 21:00) Ticagrelor Tablet (Brilinta Tablet) (05/03/19 21:00) Ua Culture If Indicated (05/03/19 21:32) Nitroglycerin 0.4 Mg Btl 25's (Nitrostat (05/03/19 21:45) Morphine Injection (Morphine Injection (05/03/19 22:00) Medications Given in ED Current Medications Medications Dose Ordered Sig/Lamin Route Start Time Stop Time Status Last Admin Dose Admin Aspirin 324 mg ONCE ONCE PO 05/03/19 21:00 05/03/19 21:01 DC 05/03/19 21:06 324 MG Nitroglycerin 0.4 mg ONCE ONCE SL 05/03/19 21:45 05/03/19 21:46 DC 05/03/19 21:42 0.4 MG Vital Signs/I&O 05/03/19 05/03/19 05/03/19 20:43 20:51 21:05 Temp 36.6 Pulse 87 Resp 20 B/P (MAP) 158/94 (115) Pulse Ox 95 98 O2 Delivery Room Air Room Air Nasal Cannula O2 Flow Rate 2.00 Blood Pressure Mean: 115 POS Progress Progress Note : Time: 21:35 Progress Note I have seen and evaluated the patient. I've informed him of his laboratory studies and imaging results. He is still having mild pain after 2 of morphine. I discussed the case with Dr. Núñez at this time and he recommended giving the nitroglycerin sublingual and admitting the patient for chest pain rule out. 13/06/39 discussed the case with Dr. Kramer agrees to accept the patient to his services with a consult to Dr. Núñez. 2220: Patient is pain-free after morphine. Initial ECG Impression Date: May 03, 2019 Initial ECG Impression Time: 20:32 Initial ECG Rate: 85 Initial ECG Rhythm: Normal Sinus Initial ECG Intervals: Normal Initial ECG Impression: Normal Initial ECG Comparisson: Unchanged Comment Reviewed by Dr. Root and he agrees with above. Departure Communication (Admissions) Time/Spoke to Admitting Phy: 21:40 Dr. Horne Time/Spoke to Consulting Phy: 21:38 Dr. Kerr Impression Primary Impression: Chest pain Disposition: ADMITTED INPATIENT Condition: Improved Admissions Decision to Admit Reason: Admit from ER (General) Decision to Admit/Date: May 03, 2019 Time/Decision to Admit Time: 21:50 Departure-Patient Inst. Referrals: IRINEO GONSALEZ DO (PCP/Family) Primary Care Physician JUSTINE MONTERO May 03, 2019 21:26 POS
[2019-05-03 21:39] LABS: BILIRUBIN,URINE NEGATIVE (NEGATIVE); CLARITY,URINE CLEAR; COLOR,URINE YELLOW; GLUCOSE, URINE (UA) 2+ (NEGATIVE); KETONES,URINE NEGATIVE (NEGATIVE); LEUKOCYTE ESTERASE ,URINE NEGATIVE (NEGATIVE); NITRITE,URINE NEGATIVE (NEGATIVE); PH,URINE 5.5 (5-9); PROTEIN,URINE 2+ (NEGATIVE)
[2019-05-03] MEDS ORDERED: NITROGLYCERIN 0.4 MG SL TABS BTL 25'S SL ONE (21:45)
[2019-05-03 21:58] LABS: AMORPHOUS SEDIMENT,UR FEW AMOR URATES /LPF; BACTERIA,URINE NEGATIVE /HPF
[2019-05-03 23:08] VITALS: BP 136/93
[2019-05-03 23:23] VITALS: BP 147/95
[2019-05-03] MEDS ORDERED: PROMETHAZINE 25 MG (PHENERGAN) TAB PO PRN (23:30)
[2019-05-03] MEDS ORDERED: NITROGLYCERIN 0.4 MG SL TABS BTL 25'S SL PRN (23:30)
[2019-05-03] MEDS ORDERED: ONDANSETRON 4 MG/2 ML (SDV) Z0FRAN IV PRN (23:30)
[2019-05-03] MEDS ORDERED: BACLOFEN 10 MG (LIORESAL) TAB PO PRN (23:30)
[2019-05-03 23:32] VITALS: BP 154/93
[2019-05-03 23:45] VITALS: BP 148/91
[2019-05-03] MEDS: morphine INJ 4 MG/ML 1 ML (VIAL/SYRINGE) IV PRN (23:54)
[2019-05-04 00:45] VITALS: BP 145/93
[2019-05-04 01:49] VITALS: BP 125/72
[2019-05-04] MEDS: morphine INJ 4 MG/ML 1 ML (VIAL/SYRINGE) IV PRN (01:52)
[2019-05-04 02:40] VITALS: BP 146/76
[2019-05-04 03:03] LABS: BASOPHILS % (AUTO) 0 % (0-10); EOSINOPHILS # (AUTO) 0.2 10^3/uL (0.0-0.3); EOSINOPHILS % (AUTO) 2 % (0-10); HEMATOCRIT 44 % (40-54); HEMOGLOBIN 15.1 G/DL (13.3-17.7); LYMPHOCYTES % (AUTO) 27 % (12-44); MEAN CORPUSCULAR HEMOGLOBIN 31 PG (25-34); MEAN CORPUSCULAR HGB CONC 34 G/DL (32-36); MEAN CORPUSCULAR VOLUME 90 FL (80-99); MEAN PLATELET VOLUME 10.9 FL (7.4-10.4); MONOCYTES # (AUTO) 1.1 X 10^3 (0.0-1.0); MONOCYTES % (AUTO) 10 % (0-12); NEUTROPHILS # (AUTO) 6.6 X 10^3 (1.8-7.8); NEUTROPHILS % (AUTO) 60 % (42-75); PLATELET COUNT 189 10^3/uL (130-400)
[2019-05-04 03:29] LABS: ALANINE AMINOTRANSFERASE 55 U/L (0-55); ALBUMIN 4.4 GM/DL (3.2-4.5); ALKALINE PHOSPHATASE 62 U/L (40-136); BILIRUBIN,TOTAL 0.5 MG/DL (0.1-1.0); BUN/CREATININE RATIO 15; CALCIUM 9.4 MG/DL (8.5-10.1); CARBON DIOXIDE 22 MMOL/L (21-32); CHLORIDE 110 MMOL/L (98-107); CHOLESTEROL 184 MG/DL (< 200); CREATININE SERUM 1.38 MG/DL (0.60-1.30); GFR ESTIMATED 54; GLUCOSE 124 MG/DL (70-105); HDL CHOLESTEROL 33 MG/DL (40-60); POTASSIUM 4.3 MMOL/L (3.6-5.0); SODIUM 142 MMOL/L (135-145); TOTAL PROTEIN 7.3 GM/DL (6.4-8.2); TRIGLYCERIDES 284 MG/DL (<150); VLDL CHOLESTEROL 57 MG/DL (5-40)
[2019-05-04 03:38] VITALS: BP 148/79
[2019-05-04] MEDS ORDERED: inSUlin ASPART (NovoLOG) 1 UNIT/0.01 ML (CHARGE PER UNIT) SC SCH (06:00)
[2019-05-04] MEDS ORDERED: ISOSORBIDE MONONITRATE 30 MG (IMDUR) TAB PO SCH (06:30)
[2019-05-04] MEDS ORDERED: OMEGA 3 (FISH OIL) 1000 MG CAP PO SCH (07:00)
[2019-05-04] MEDS ORDERED: metFORMIN XR 500 MG (GLUCOPHAGE XR) TAB PO SCH (07:00)
[2019-05-04] MEDS ORDERED: MULTIVIT W/MINERALS TAB (THERAGRAN M) PO SCH (07:00)
[2019-05-04 08:00] VITALS: BP 141/95
[2019-05-04] MEDS ORDERED: RT-ADVAIR HFA 115/21 MCG PER PUFF IH SCH (08:00)
--- NOTE | 2019-05-04 08:48 | NUR ---
0848 Patient took his own 81mg PO Aspirin from Home. This nurse contacted physician at 0840 regarding all of patients home medications and if physician would like any of them started.
[2019-05-04] MEDS ORDERED: ASPIRIN E.C. 81 MG (ECOTRIN) TAB PO SCH (09:00)
[2019-05-04] MEDS ORDERED: VITAMIN D3 5,000 UNITS (CHOLECALCIFEROL ) CAPSULE PO SCH (09:00)
[2019-05-04] MEDS ORDERED: lisINopril 10 MG (PRINIVIL) TABLET PO SCH (09:00)
[2019-05-04] MEDS ORDERED: ASCORBIC ACID (VIT C) 500 MG TABLET PO SCH ×2 (09:00→17:00)
[2019-05-04] MEDS ORDERED: ALLOPURINOL 300 MG (ZYLOPRIM) TAB PO SCH (09:00)
[2019-05-04] MEDS ORDERED: GABAPENTIN 300 MG (NEURONTIN) CAP PO SCH ×2 (09:00→21:00)
[2019-05-04] MEDS ORDERED: meTOprolol TARTRATE 50 MG (LOPRESSOR) TAB PO SCH (09:00)
[2019-05-04] MEDS ORDERED: TICAGRELOR 90 MG TABLET (BRILINTA) PO SCH (09:00)
--- NOTE | 2019-05-04 09:26 | History & Physical ---
History of Present Illness HPI/Chief Complaint CC: Chest Pain HPI: This is a 53yoWM clinic pt on mine at [facility] who has a PMH of multiple comorbidities including DM, RIAZ, HTN, renal insufficiency, who presented to the ER after he had just returned after a cardiac stent placement by Dr. Cartagena after referred from Dr. Núñez after he initiated a stent the week before. He did have a little bit of a change to his medication and began experiencing chest pain so he presented to the ER, was placed in observation and was monitored for acute coronary syndrome. At this current time all labs remain normal, Pt feels well enough to go home as long as it is okay with cardiology. Source: patient, RN/MD, old records Exam Limitations: no limitations Date Seen 05/04/19 Time Seen by a Provider: 09:15 Attending Physician Catracho Kramer MD PCP Pat Gonsalez DO Referring Physician Date of Admission May 03, 2019 at 21:50 Home Medications & Allergies Home Medications Reviewed patient Home Medication Reconciliation performed by pharmacy medication reconciliations cad technician and/or nursing. Patients Allergies have been reviewed. Allergies Allergies Coded Allergies No Known Drug Allergies (Unverified11/21/18) Past Liwxbju-Jfafdk-Xbgjhc Hx Past Med/Social Hx: Reviewed Nursing Past Med/Soc Hx, Reviewed and Corrections made Patient Social History Marrital Status: Employed/Student: unemployed Alcohol Use: Rarely Uses Number of Drinks Today: BB Alcohol Beverage of Choice: Beer, [place] Recreational Drug Use: No Smoking Status: Never a Smoker Type Used: Smokeless Tobacco 2nd Hand Smoke Exposure: No Recent Foreign Travel: No Contact w/other who traveled: No Recent Hopitalizations: Yes (stent 05/03/19) Recent Infectious Disease Expo: No Immunizations Up To Date Tetanus Booster (TDap): Unknown Pediatric: Yes Date of Pneumonia Vaccine: Feb 23, 2016 Date of Influenza Vaccine: Feb 22, 2019 Seasonal Allergies Seasonal Allergies: Yes Past Medical History Surgeries: Abdominal, Adenoidectomy, Appendectomy, Gallbladder, Orthopedic, Tonsillectomy Respiratory: COPD, Pneumonia, Sleep Apnea Currently Using CPAP: No Currently Using BIPAP: No Cardiac: Chronic Edema/Swelling, Coronary Artery Disease, High Cholesterol, Hypertension Neurological: Headaches /Migraines, Neuropathy Reproductive: No Sexually Transmitted Disease: No HIV/AIDS: No Genitourinary: Kidney Stones, Renal Failure Gastrointestinal: Abdominal Hernia, Obstructive Bowel, Polyps Musculoskeletal: Degenerate Disk Disease, Arthritis, Fibromyalgia, Rheumatoid Arthritis, Back Injury, Chronic Back Pain, Fractures, Gout Endocrine: Diabetes, Insulin dep HEENT: Tonsilitis Loss of Vision: Bilateral Hearing Impairment: Denies Psychosocial: Anxiety, Depression History of Blood Disorders: No Adverse Reaction to Blood Chen: No (N/A) Family History Reviewed Nursing Family Hx Abdominal aortic aneurysm 09 BROTHER Cancer 03 MOTHER Cancer of colon 03 MOTHER 09 SISTER 19 MOTHER FH: COPD (chronic obstructive pulmonary disease) 19 FATHER FH: leukemia 09 SISTER 19 MOTHER FHx: stroke 19 FATHER Family history: Diabetes mellitus 09 BROTHER 09 SISTER 09 SISTER 09 SISTER Family history: Gastrointestinal disease 03 MOTHER 09 BROTHER No Pertinent Family Hx Review of Systems Constitutional: see HPI Cardiovascular: chest pain Physical Exam Physical Exam Vital Signs Vital Signs - First Documented 05/03/19 05/03/19 20:43 21:05 Temp 36.6 Pulse 87 Resp 20 B/P (MAP) 158/94 (115) Pulse Ox 95 O2 Delivery Room Air O2 Flow Rate 2.00 Capillary Refill : Less Than 3 Seconds Height, Weight, BMI Height: 5'11.00" Weight: 260lbs. 8.0oz. 117.648072mh; 37.46 BMI Method:Stated General Appearance: No Apparent Distress, WD/WN, Chronically ill, Obese Neck: Full Range of Motion Respiratory: Chest Non Tender, Lungs Clear, Normal Breath Sounds, No Accessory Muscle Use, No Respiratory Distress Cardiovascular: Regular Rate, Rhythm, No Edema, No Gallop, No JVD, No Murmur, Normal Peripheral Pulses Extremity: Normal Capillary Refill, No Pedal Edema Neurologic/Psychiatric: Alert, Oriented x3, No Motor/Sensory Deficits, Normal Mood/Affect, computer technician II-XII Norm as Tested Skin: Normal Color, Warm/Dry Results Results/Procedures Labs Laboratory Tests 05/03/19 20:46 05/04/19 02:45 Patient resulted labs reviewed. Assessment/Plan Admission Diagnosis Assessment: Chest pain CAD recent stent placement RIAZ DM HTN HLP CRI Chronic pain Plan: Appreciate Cardiology Admission Status: Observation Diagnosis/Problems Diagnosis/Problems (1) Chest pain Status: Acute (2) Anxiety Status: Acute (3) Hx of colonic polyps (4) IDDM (insulin dependent diabetes mellitus) Status: Chronic (5) Fever Status: Acute (6) Chronic pain Status: Chronic (7) CAD (coronary artery disease) (8) Stented coronary artery (9) Angina pectoris syndrome Clinical Quality Measures AMI/AHF: ASA po Prior to arrival: No DVT/VTE Risk/Contraindication: Risk Factor Score Per Nursin RFS Level Per Nursing on Admit: 4+=Very High PAT GONSALEZ DO May 04, 2019 09:26 POS
[2019-05-04] MEDS ORDERED: ISOS30TA3 PO (11:35)
[2019-05-04] MEDS ORDERED: METO50TA15 PO (11:35)
[2019-05-04] MEDS ORDERED: ASPI-983 PO (11:35)
[2019-05-04] MEDS ORDERED: PRAS10TA10 PO (11:35)
[2019-05-04] MEDS ORDERED: FENO134C PO (11:35)
--- NOTE | 2019-05-04 11:36 | NUR ---
SPOKE WITH THE PATIENT ABOUT HIS MEDICATIONS. HE HAD A DETAILED LIST AND I COMPARED IT WITH THE EXT MED HX. THERE ARE SOME CHANGES THAT HAVE BEEN MADE RECENTLY THAT HIS LIST DOES NOT YET REFLECT. HE FILLED EFFIENT 10MG YESTERDAY, HE HAS PICKED THIS UP BUT DID NOT HAVE A CHANCE TO TAKE IT PRIOR TO BEING ADMITTED. HE STATES IT WAS TO REPLACE THE BRILINTA. I UPDATED THIS CHANGE ON THE MED REC AT THIS TIME. HIS TOUJEO WAS INCREASED TO 140 UNITS IN THE EVENING AND HIS HUMALOG WAS INCREASED TO 52 UNITS TIDAC. IN ADDITION TO HIS LIST HE ALSO TAKES TRICOR HS AND USES VOLTAREN PRN. HE STATES HE WAS SUPPOSED TO BE PRESCRIBED NITROSTAT AT HIS LAST VISIT HERE BUT DID NOT GET HOME WITH THE PRESCRIPTION. I REMOVED IT FROM THE MED REC AND TOLD HIM TO ASK FOR A NEW SCRIPT. I ALSO TOLD THE NURSE. HE TAKES THE FOLLOWING OTC: VITAMIN C 1000MG BID CO Q 10 300MG DAILY CHILDREN'S MTV 2 DAILY ASPIRIN 81MG DAILY VITAMIN D3 5000 UNITS DAILY
--- NOTE | 2019-05-04 11:50 | Consultation-Cardiology ---
HPI-Cardiology Cardiology Consultation Date of Consultation 05/04/19 Date of Admission Time Seen by Provider: 13:11 Indication: Chest pain HPI 53 years old gentleman with extensive history of coronary artery disease, had complex intervention, recent myocardial infarction, had stent to the right coronary artery and scheduled for stenting of the circumflex artery at [facility], had the procedure done yesterday and discharged home yesterday evening. Call me in the evening complaint of chest pain or shortness of breath, was concern about his symptoms. Sent into the emergency room, continue to have shortness of breath, responded to sublingual nitroglycerin, currently feeling comfortable, reporting improvement in his symptoms, denied any active chest pain at this point Home Medications & Allergies Allergies: Coded Allergies: No Known Drug Allergies (Unverified , 11/21/18) Home Medication List Reviewed: Yes [id number]-[id number] Hx Patient Social History Marital Status: Employed/Student: unemployed Alcohol Use: Rarely Uses Recreational Drug Use: No Smoking Status: Never a Smoker Type Used: Smokeless Tobacco 2nd Hand Smoke Exposure: No Recent Foreign Travel: No Recent Infectious Disease Expo: No Recent Hopitalizations: Yes (stent 05/03/19) Immunizations Up To Date Tetanus Booster (TDap): Unknown Date of Pneumonia Vaccine: Feb 23, 2016 Date of Influenza Vaccine: Feb 22, 2019 Past Medical History discussed below Family Medical History Significant Family History: No Pertinent Family Hx Family History: Abdominal aortic aneurysm 09 BROTHER Cancer 03 MOTHER Cancer of colon 03 MOTHER 09 SISTER 19 MOTHER FH: COPD (chronic obstructive pulmonary disease) 19 FATHER FH: leukemia 09 SISTER 19 MOTHER FHx: stroke 19 FATHER Family history: Diabetes mellitus 09 BROTHER 09 SISTER 09 SISTER 09 SISTER Family history: Gastrointestinal disease 03 MOTHER 09 BROTHER Review of Systems-General Review of Systems Constitutional: see HPI, malaise, weakness EENTM: see HPI, no symptoms reported Respiratory: see HPI; No cough; dyspnea on exertion; No hemoptysis, No orthopnea, No phlegm; short of breath; No stridor, No wheezing, No other Cardiovascular: see HPI, chest pain; No edema, No Hx of Intervention; palpitations; No syncope, No vascular heart diseas, No other Gastrointestinal: no symptoms reported, see HPI Genitourinary: no symptoms reported, see HPI Musculoskeletal: no symptoms reported, see HPI Skin: no symptoms reported, see HPI Psychiatric/Neurological: No Symptoms Reported, See HPI All Other Systems Reviewed Negative Unless Noted: Yes Reviewed Test Results Reviewed Test Results Lab Laboratory Tests Test 05/03/19 20:46 05/03/19 21:31 05/04/19 02:45 05/04/19 09:05 Range/Units White Blood Count 9.3 11.0 4.3-11.0 10^3/uL Red Blood Count 4.70 4.89 4.35-5.85 10^6/uL Hemoglobin 14.9 15.1 13.3-17.7 G/DL Hematocrit 43 44 40-54 % Mean Corpuscular Volume 91 90 80-99 FL Mean Corpuscular Hemoglobin 32 31 25-34 PG Mean Corpuscular Hemoglobin Concent 35 34 32-36 G/DL Red Cell Distribution Width 13.9 14.0 10.0-14.5 % Platelet Count 181 189 130-400 10^3/uL Mean Platelet Volume 10.8 H 10.9 H 7.4-10.4 FL Neutrophils (%) (Auto) 65 60 42-75 % Lymphocytes (%) (Auto) 22 27 12-44 % Monocytes (%) (Auto) 11 10 0-12 % Eosinophils (%) (Auto) 2 2 0-10 % Basophils (%) (Auto) 0 0 0-10 % Neutrophils # (Auto) 6.1 6.6 1.8-7.8 X 10^3 Lymphocytes # (Auto) 2.1 3.0 1.0-4.0 X 10^3 Monocytes # (Auto) 1.0 1.1 H 0.0-1.0 X 10^3 Eosinophils # (Auto) 0.2 0.2 0.0-0.3 10^3/uL Basophils # (Auto) 0.0 0.0 0.0-0.1 10^3/uL Prothrombin Time 14.1 12.2-14.7 SEC INR Comment 1.0 0.8-1.4 Activated Partial Thromboplast Time 29 24-35 SEC Sodium Level 142 142 135-145 MMOL/L Potassium Level 4.2 4.3 3.6-5.0 MMOL/L Chloride Level 109 H 110 H 98-107 MMOL/L Carbon Dioxide Level 20 L 22 21-32 MMOL/L Anion Gap 13 10 5-14 MMOL/L Blood Urea Nitrogen 23 H 21 H 7-18 MG/DL Creatinine 1.59 H 1.38 H 0.60-1.30 MG/DL Estimat Glomerular Filtration Rate 46 54 BUN/Creatinine Ratio 14 15 Glucose Level 244 H 124 H 70-105 MG/DL Calcium Level 9.1 9.4 8.5-10.1 MG/DL Corrected Calcium 8.9 9.1 8.5-10.1 MG/DL Magnesium Level 1.6 1.6-2.4 MG/DL Total Bilirubin 0.4 0.5 0.1-1.0 MG/DL Aspartate Amino Transf (AST/SGOT) 31 29 5-34 U/L Alanine Aminotransferase (ALT/SGPT) 54 55 0-55 U/L Alkaline Phosphatase 72 62 40-136 U/L Myoglobin 68.0 10.0-92.0 NG/ML Troponin I < 0.028 < 0.028 < 0.028 <0.028 NG/ML B-Type Natriuretic Peptide 15.7 <100.0 PG/ML Total Protein 7.1 7.3 6.4-8.2 GM/DL Albumin 4.2 4.4 3.2-4.5 GM/DL Urine Color YELLOW Urine Clarity CLEAR Urine pH 5.5 5-9 Urine Specific Goodwin >=1.030 1.016-1.022 Urine Protein 2+ H NEGATIVE Urine Glucose (UA) 2+ H NEGATIVE Urine Ketones NEGATIVE NEGATIVE Urine Nitrite NEGATIVE NEGATIVE Urine Bilirubin NEGATIVE NEGATIVE Urine Urobilinogen 0.2 < = 1.0 MG/DL Urine Leukocyte Esterase NEGATIVE NEGATIVE Urine RBC (Auto) NEGATIVE NEGATIVE Urine RBC NONE /HPF Urine WBC NONE /HPF Urine Crystals PRESENT H /LPF Urine Amorphous Sediment FEW JESSICA URATES H /LPF Urine Bacteria NEGATIVE /HPF Urine Casts NONE /LPF Urine Mucus NEGATIVE /LPF Urine Culture Indicated NO Triglycerides Level 284 H <150 MG/DL Cholesterol Level 184 < 200 MG/DL LDL Cholesterol Direct 106 1-129 MG/DL VLDL Cholesterol 57 H 5-40 MG/DL HDL Cholesterol 33 L 40-60 MG/DL Physical Exam Physical Exam Vital Signs Vital Signs - First Documented 05/03/19 05/03/19 20:43 21:05 Temp 36.6 Pulse 87 Resp 20 B/P (MAP) 158/94 (115) Pulse Ox 95 O2 Delivery Room Air O2 Flow Rate 2.00 Capillary Refill : Less Than 3 Seconds Height, Weight, BMI Height: 5'11.00" Weight: 260lbs. 8.0oz. 117.867791rd; 37.46 BMI Method:Stated General Appearance: No Apparent Distress, WD/WN, Chronically ill, Obese Eyes: Bilateral Eye Normal Inspection, Bilateral Eye PERRL, Bilateral Eye EOMI HEENT: PERRL/EOMI, TMs Normal, Normal ENT Inspection, Pharynx Normal, Moist Mucous Membranes Neck: Full Range of Motion Respiratory: Chest Non Tender, Lungs Clear, Normal Breath Sounds, No Accessory Muscle Use, No Respiratory Distress Cardiovascular: Regular Rate, Rhythm, No Edema, No Gallop, No JVD, No Murmur, N ormal Peripheral Pulses Gastrointestinal: Normal Bowel Sounds, No Organomegaly, No Pulsatile Mass, Non Tender, Soft Back: Normal Inspection, No CVA Tenderness, No Vertebral Tenderness Extremity: Normal Capillary Refill, No Pedal Edema Neurologic/Psychiatric: Alert, Oriented x3, No Motor/Sensory Deficits, Normal Mood/Affect, tar man II-XII Norm as Tested Skin: Normal Color, Warm/Dry Lymphatic: No Adenopathy A/P-Cardiology Admission Diagnosis Chest pain Coronary artery disease Hypertension Hyperlipidemia Assessment/Plan Chest pain nonspecific etiology, multiple interventions done, last intervention was done yesterday, EKG and chronic enzymes did not show any acute abnormality. Patient was reassured. Okay for discharge Coronary artery disease, non-ST elevation cardiac infarction occurred recently, had severe stenosis at the right coronary artery with successful deployment of Maday 4 x 23 mm stent expanded to 4.5 mm with excellent results. The distal r ight PDA is occluded, small vessel disease, circumflex has severe diffuse disease, underwent stenting on May 03, 2019 in [facility], I do not have the report in addition he had evdz-[id number] ectasia in the LAD, mild to moderate diffuse disease with normal left ventricular size and function. Currently EKG and cardiac event did not show any acute abnormality. Continue to monitor Sinus tachycardia, started on metoprolol, reporting that he was bradycardic in [facility], metoprolol was held, instructed him to keep holding it and monitor Hypertension, monitor blood pressure and restart home medication Hyperlipidemia, continue on statin Diabetes mellitus, followed and managed by primary care physician, educated on holding metformin for the next 48 hours due to the recent cardiac catheterization. COPD/obstructive sleep apnea Obesity, BMI 36 Multiple back surgeries, recent knee surgery Okay for discharge from cardiology standpoint, patient was prescribed nitroglycerin sublingual and continue on aspirin and Effient. Clinical Quality Measures AMI/AHF: ASA po Prior to arrival: No DVT/VTE Risk/Contraindication: Risk Factor Score Per Nursin RFS Level Per Nursing on Admit: 4+=Very High ROSS RODRÍGUEZ MD May 04, 2019 11:50 POS
[2019-05-04 12:00] VITALS: BP 147/95
[2019-05-04] MEDS ORDERED: NITROGLYCERIN 0.4 MG SL TABS BTL 25'S SL PRN (12:15)
[2019-05-04] MEDS ORDERED: PRASUGREL 10 MG (EFFIENT) TABLET PO SCH (13:45)
--- NOTE | 2019-05-04 14:20 | NUR ---
Patient leaving floor a 1420 with Rosey NT. IV removed. Gauze and tape applied to site. Entire discharge packet discussed with patient. Medication regimen discussed with patient. Patient encouraged to follow medication regimen. Patient states that he does not have any further questions at this time. Patient reports his pain at a 0. VSS. Patient has all of his belongings.
[2019-05-04] MEDS ORDERED: MONTELUKAST 10 MG (SINGULAIR) TAB PO SCH (21:00)
[2019-05-05] MEDS ORDERED: ASPIRIN E.C. 81 MG (ECOTRIN) TAB PO SCH (09:00)
[2019-05-05] MEDS ORDERED: ALLOPURINOL 300 MG (ZYLOPRIM) TAB PO SCH (09:00)
[2019-05-05] MEDS ORDERED: PRASUGREL 10 MG (EFFIENT) TABLET PO SCH (09:00)
[2019-05-05] MEDS ORDERED: NON-FORMULARY MEDICATION 1 EA EA (Allopurinol 300 MG) PO SCH (09:00)
[2019-05-05] MEDS ORDERED: PRASUGREL HCL 10 MG PO SCH (09:00)
== END 2019-05-04 14:20 | disposition home or self-care (01) ==
LOC: EDUNIT# 20:28 → ER 20:29 → CSD 21:50
PROVIDERS: ADMIT Internal Medicine; ATTEND Internal Medicine
DX: I25.119 Atherosclerotic heart disease of native coronary artery with unspecified angina pectoris (principal); I10 Essential (primary) hypertension; G43.909 Migraine, unspecified, not intractable, without status migrainosus; J44.9 Chronic obstructive pulmonary disease, unspecified; G47.30 Sleep apnea, unspecified; G89.29 Other chronic pain; M54.9 Dorsalgia, unspecified; E78.00 Pure hypercholesterolemia, unspecified; M06.9 Rheumatoid arthritis, unspecified; E11.9 Type 2 diabetes mellitus without complications; F32.9 Major depressive disorder, single episode, unspecified; F41.9 Anxiety disorder, unspecified; Z79.82 Long term (current) use of aspirin; Z79.899 Other long term (current) drug therapy; Z79.891 Long term (current) use of opiate analgesic; Z79.84 Long term (current) use of oral hypoglycemic drugs; Z90.89 Acquired absence of other organs; Z86.010 Personal history of colon polyps; Z79.4 Long term (current) use of insulin; Z95.1 Presence of aortocoronary bypass graft; Z80.0 Family history of malignant neoplasm of digestive organs; Z82.3 Family history of stroke; Z82.49 Family history of ischemic heart disease and other diseases of the circulatory system
CPT/HCPCS: 36415; 71045; 80053; 80061; 81000; 83735; 83874; 83880; 84484; 85025; 85610; 85730; 93005; 93041; 96374; 96376

== ENCOUNTER 2019-05-20 20:50 | Emergency (ER) | payer MEDICARE, OTHER ==
[~2019-05-20] VITALS: Ht 180 cm; Wt 118.2 kg
[~2019-05-20 20:50] MED LIST changes: +FENO134C PO; +PRAS10TA10 PO
[2019-05-20 21:20] LABS: BASOPHILS % (AUTO) 0 % (0-10); EOSINOPHILS # (AUTO) 0.4 10^3/uL (0.0-0.3); EOSINOPHILS % (AUTO) 4 % (0-10); HEMATOCRIT 43 % (40-54); HEMOGLOBIN 15.2 G/DL (13.3-17.7); LYMPHOCYTES % (AUTO) 25 % (12-44); MEAN CORPUSCULAR HEMOGLOBIN 32 PG (25-34); MEAN CORPUSCULAR HGB CONC 35 G/DL (32-36); MEAN CORPUSCULAR VOLUME 90 FL (80-99); MEAN PLATELET VOLUME 11.6 FL (7.4-10.4); MONOCYTES # (AUTO) 0.8 X 10^3 (0.0-1.0); MONOCYTES % (AUTO) 10 % (0-12); NEUTROPHILS # (AUTO) 4.8 X 10^3 (1.8-7.8); NEUTROPHILS % (AUTO) 60 % (42-75); PLATELET COUNT 159 10^3/uL (130-400); RED CELL DISTRIBUTION WIDTH 13.5 % (10.0-14.5)
[2019-05-20 21:22] LABS: PROTHROMBIN TIME PATIENT 13.4 SEC (12.2-14.7)
[2019-05-20] MEDS ORDERED: morphine INJ 10 MG/ML 1ML (SYR OR VIAL) IVP STA ×2 (21:27→22:19)
--- NOTE | 2019-05-20 21:27 | Diagnostic Imaging Report ---
INDICATION: Chest pain COMPARISON: 05/03/2019 FINDINGS: Single view of the chest demonstrates cardiac enlargement with slight central vascular congestion. There is no pneumothorax or effusion. Osseous structures are normal. IMPRESSION: Cardiac enlargement with central vascular congestion. Dictated by: Dictated on workstation # [id number]
[2019-05-20] MEDS ORDERED: ASPIRIN 81 MG CHEW (CHILDREN'S ASA) PO ONE (21:30)
[2019-05-20 21:31] LABS: ALBUMIN 4.1 GM/DL (3.2-4.5); BILIRUBIN,TOTAL 0.3 MG/DL (0.1-1.0); CALCIUM 9.4 MG/DL (8.5-10.1); CREATININE SERUM 1.5 MG/DL (0.60-1.30); MAGNESIUM 1.6 MG/DL (1.6-2.4); POTASSIUM 3.9 MMOL/L (3.6-5.0); TOTAL PROTEIN 7.2 GM/DL (6.4-8.2)
[2019-05-20] MEDS ORDERED: HEParin DRIP 25000 UNIT/500ML 500 ML IV ONE (22:29)
[2019-05-20] MEDS ORDERED: HEParin 1000 UNIT/ML (10ML VIAL) FOR BOLUS IV ONE (22:29)
[2019-05-20] MEDS ORDERED: NITROGLYCERIN 2% OINT 1 GM UNIT DOSE PACKET TOP ONE (22:30)
[2019-05-20] MEDS ORDERED: NS IV 1000 ML 1,000 ML IV ONE (22:47)
--- NOTE | 2019-05-20 23:35 | NUR ---
REPORT GIVEN TO SYD DOMÍNGUEZ AT [facility] @ [id number]
--- NOTE | 2019-05-20 23:43 | ED Chest Pain ---
General Chief Complaint: Chest Pain Stated Complaint: CHEST PAIN Nursing Triage Note: Pt ambulates to Rm 3 with c/o sternal chest pain x 1 hr. Pt got a stent on 05/03/19. 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 Pt reports SOB, 94% on arrival. Nursing Sepsis Screen: No Definite Risk Source: patient, old records Exam Limitations: no limitations History of Present Illness Date Seen by Provider: May 20, 2019 Time Seen by Provider: 21:00 Initial Comments This 53-year-old gentleman presents to the emergency room with complaints of c entral stabbing chest pain that radiates to his back. He took 3 nitroglycerin at home which were not helpful. He has history of non-ST elevation myocardial infarction April 11, 2018, and he underwent angiography at [facility] in [place]. Multiple interventions were done and he had follow-up angiography performed in [place] by Dr. Cartagena on May 03. An additional stent was placed. Pain started this morning when he was at cardiac rehabilitation. It was fairly mild through the morning and then intensified late this afternoon or early this evening. He denies any exacerbating or alleviating factors. Allergies and Home Medications Allergies Coded Allergies: No Known Drug Allergies (Unverified , 11/21/18) Home Medications Albuterol Sulfate 1 Puff Puff, 2 PUFF IH Q4H PRN for SHORTNESS OF BREATH, (Reported) 1 PUFF = 90 MCG Allopurinol 300 Mg Tablet, 300 MG PO DAILY, (Reported) Ascorbic Acid 500 Mg Tablet, 1,000 MG PO BID, (Reported) Aspirin 81 Mg Tablet.dr, 81 MG PO DAILY, (Reported) Baclofen 10 Mg Tablet, 10 MG PO TID PRN for SPASMS, (Reported) Cholecalciferol (Vitamin D3) 5,000 Unit Capsule, 5,000 UNIT PO DAILY, (Reported) Diclofenac Sodium 100 Gm Gel..gram., 2 GM TOP QID PRN for SHOULDER PAIN, (Reported) Fenofibrate,Micronized 134 Mg Capsule, 134 MG PO HS, (Reported) Fluticasone Propion/Salmeterol 1 Each Blst.w.dev, 1 PUFF INH BID PRN for SHORTNESS OF BREATH, (Reported) Gabapentin 300 Mg Capsule, 1,500 MG PO HS, (Reported) TAKES 5 (300MG) CAPSULES Gabapentin 300 Mg Capsule, 300 MG PO DAILY, (Reported) Hydrocodone/Acetaminophen 1 Each Tablet, 1 TAB PO Q6H PRN for PAIN-MODERATE (5- 7), (Reported) Insulin Glargine,Hum.rec.anlog 300 Unit/1 Ml Insuln.pen, 140 UNITS SC 1800, (Reported) Insulin Lispro 100 Unit/1 Ml Insuln.pen, 52 UNIT SQ TIDAC, (Reported) Isosorbide Mononitrate 30 Mg Tab.er.24h, 30 MG PO DAILY, (Reported) Lisinopril 20 Mg Tablet, 20 MG PO DAILY, (Reported) Metformin HCl 500 Mg Tab.er.24h, 500 MG PO DAILY, (Reported) Metoprolol Tartrate 50 Mg Tablet, 50 MG PO BID, (Reported) Montelukast Sodium 10 Mg Tablet, 10 MG PO HS, (Reported) Sanford-3 Acid Ethyl Esters 1 Gm Capsule, 2 GM PO BID, (Reported) TAKES 2 (1GM) CAPSULES Pediatric Multivit Comb No.136 1 Each Tab.chew, 2 TAB.CHEW PO DAILY, (Reported) Pitavastatin Calcium 4 Mg Tablet, 4 MG PO HS, (Reported) Prasugrel HCl 10 Mg Tablet, 10 MG PO DAILY, (Reported) Promethazine HCl 25 Mg Tablet, 25 MG PO Q6H PRN for NAUSEA/VOMITING-2ND LINE, (Reported) Ubidecarenone 100 Mg Capsule, 100 MG PO DAILY, (Reported) TAKES ALONG WITH 200MG CAPSULE FOR A TOTAL DAILY DOSE OF 300MG Ubidecarenone 200 Mg Capsule, 200 MG PO DAILY, (Reported) TAKEA ALONG WITH 100MG CAPSULE FOR A TOTAL DAILY DOSE OF 300MG Patient Home Medication List Home Medication List Reviewed: Yes Review of Systems Review of Systems Constitutional: no symptoms reported EENTM: No Symptoms Reported Respiratory: No Symptoms Reported Cardiovascular: See HPI Gastrointestinal: No Symptoms Reported Genitourinary: No Symptoms Reported Musculoskeletal: no symptoms reported Skin: no symptoms reported Psychiatric/Neurological: No Symptoms Reported Endocrine: No Symptoms Reported Past Lcfulhd-Idjmai-Quzvdq Hx Past Med/Social Hx: Reviewed and Corrections made Patient Social History Alcohol Use: Occasionally Uses Number of Drinks Today: BB Alcohol Beverage of Choice: Beer, Wetzel Recreational Drug Use: No Type Used: Smokeless Tobacco 2nd Hand Smoke Exposure: No Recent Foreign Travel: No Contact w/Someone Who Travel: No Recent Infectious Disease Expo: No Recent Hopitalizations: Yes (stent 05/03/19) Immunizations Up To Date Tetanus Booster (TDap): Unknown PED Vaccines UTD: Yes Date of Pneumonia Vaccine: Feb 23, 2016 Date of Influenza Vaccine: Feb 22, 2019 Seasonal Allergies Seasonal Allergies: Yes Past Medical History Surgeries: Yes (LITHOTRIPSY, BACK X4, L KNEE ACL REPAIR, WISDOM TEETH,) Abdominal, Adenoidectomy, Appendectomy, Coronary Stent, Gallbladder, Orthopedic, Tonsillectomy Respiratory: Yes (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, 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) Pneumonia, Sleep Apnea, COPD Currently Using CPAP: No Currently Using BIPAP: No Cardiac: Yes Chronic Edema/Swelling, Coronary Artery Disease, High Cholesterol, Hypertension Neurological: Yes Headaches /Migraines, Neuropathy Reproductive Disorders: No Sexually Transmitted Disease: No HIV/AIDS: No Genitourinary: Yes Kidney Stones, Renal Failure Gastrointestinal: Yes (ABDOMINAL ADHESIONS, FREQUENT SMALL BOWEL OBSTRUCTIONS) Abdominal Hernia, Obstructive Bowel, Polyps Musculoskeletal: Yes Degenerate Disk Disease, Arthritis, Fibromyalgia, Rheumatoid Arthritis, Back Injury, Chronic Back Pain, Fractures, Gout Endocrine: Yes (WEARS CONTINUOS GLUCOSE MONITOR) Diabetes, Insulin dep HEENT: No Tonsilitis Loss of Vision: Bilateral Hearing Impairment: Denies Cancer: No Psychosocial: Yes Anxiety, Depression Integumentary: No Blood Disorders: No Adverse Reaction/Blood Tranf: No (N/A) Family Medical History Abdominal aortic aneurysm 09 BROTHER Cancer 03 MOTHER Cancer of colon 03 MOTHER 09 SISTER 19 MOTHER FH: COPD (chronic obstructive pulmonary disease) 19 FATHER FH: leukemia 09 SISTER 19 MOTHER FHx: stroke 19 FATHER Family history: Diabetes mellitus 09 BROTHER 09 SISTER 09 SISTER 09 SISTER Family history: Gastrointestinal disease 03 MOTHER 09 BROTHER No Pertinent Family Hx Physical Exam Vital Signs Vital Signs - First Documented 05/20/19 05/20/19 20:54 21:00 Temp 36.0 Pulse 96 Resp 24 B/P (MAP) 139/88 (105) Pulse Ox 94 O2 Delivery Room Air O2 Flow Rate 2.00 Capillary Refill : Less Than 3 Seconds Height, Weight, BMI Height: 5'11.00" Weight: 260lbs. 8.0oz. 117.091996tc; 36.00 BMI Method:Stated General Appearance: WD/WN, Mild Distress HEENT: PERRL/EOMI, Normal ENT Inspection Neck: Normal Inspection; No JVD Respiratory: Lungs Clear, Normal Breath Sounds, No Accessory Muscle Use, No Respiratory Distress, Other (no significant tenderness to palpation of the chest) Cardiovascular: Regular Rate, Rhythm, No Edema, No Murmur, Normal Peripheral Pulses Gastrointestinal: Normal Bowel Sounds, Non Tender, Soft Extremity: Normal Capillary Refill, Normal Inspection, No Calf Tenderness, No Pedal Edema Neurologic/Psychiatric: Alert, Oriented x3, No Motor/Sensory Deficits, Normal Mood/Affect, solutions developer II-XII Norm as Tested Skin: Normal Color, Warm/Dry Progress/Results/Core Measures Results/Orders Lab Results Laboratory Tests Test 05/20/19 21:02 Range/Units White Blood Count 8.0 4.3-11.0 10^3/uL Red Blood Count 4.81 4.35-5.85 10^6/uL Hemoglobin 15.2 13.3-17.7 G/DL Hematocrit 43 40-54 % Mean Corpuscular Volume 90 80-99 FL Mean Corpuscular Hemoglobin 32 25-34 PG Mean Corpuscular Hemoglobin Concent 35 32-36 G/DL Red Cell Distribution Width 13.5 10.0-14.5 % Platelet Count 159 130-400 10^3/uL Mean Platelet Volume 11.6 H 7.4-10.4 FL Neutrophils (%) (Auto) 60 42-75 % Lymphocytes (%) (Auto) 25 12-44 % Monocytes (%) (Auto) 10 0-12 % Eosinophils (%) (Auto) 4 0-10 % Basophils (%) (Auto) 0 0-10 % Neutrophils # (Auto) 4.8 1.8-7.8 X 10^3 Lymphocytes # (Auto) 2.0 1.0-4.0 X 10^3 Monocytes # (Auto) 0.8 0.0-1.0 X 10^3 Eosinophils # (Auto) 0.4 H 0.0-0.3 10^3/uL Basophils # (Auto) 0.0 0.0-0.1 10^3/uL Prothrombin Time 13.4 12.2-14.7 SEC INR Comment 1.0 0.8-1.4 Activated Partial Thromboplast Time 30 24-35 SEC Sodium Level 139 135-145 MMOL/L Potassium Level 3.9 3.6-5.0 MMOL/L Chloride Level 105 98-107 MMOL/L Carbon Dioxide Level 20 L 21-32 MMOL/L Anion Gap 14 5-14 MMOL/L Blood Urea Nitrogen 23 H 7-18 MG/DL Creatinine 1.50 H 0.60-1.30 MG/DL Estimat Glomerular Filtration Rate 49 BUN/Creatinine Ratio 15 Glucose Level 255 H 70-105 MG/DL Calcium Level 9.4 8.5-10.1 MG/DL Corrected Calcium 9.3 8.5-10.1 MG/DL Magnesium Level 1.6 1.6-2.4 MG/DL Total Bilirubin 0.3 0.1-1.0 MG/DL Aspartate Amino Transf (AST/SGOT) 30 5-34 U/L Alanine Aminotransferase (ALT/SGPT) 47 0-55 U/L Alkaline Phosphatase 77 40-136 U/L Myoglobin 118.9 H 10.0-92.0 NG/ML Troponin I < 0.028 <0.028 NG/ML B-Type Natriuretic Peptide 20.0 <100.0 PG/ML Total Protein 7.2 6.4-8.2 GM/DL Albumin 4.1 3.2-4.5 GM/DL My Orders Orders - JORGE OLMOS MD Cbc With Automated Diff (05/20/19 21:09) Magnesium (05/20/19 21:09) Chest 1 View, Ap/Pa Only (05/20/19 21:09) Ekg Tracing (05/20/19 21:09) Comprehensive Metabolic Panel (05/20/19 21:09) Myoglobin Serum (05/20/19 21:09) Protime With Inr (05/20/19 21:09) Partial Thromboplastin Time (05/20/19 21:09) O2 (05/20/19 21:09) Monitor-Rhythm Ecg Trace Only (05/20/19 21:09) Ed Iv/Invasive Line Start (05/20/19 21:09) Troponin I (05/20/19 21:09) Morphine Injection (Morphine Injection (05/20/19 21:27) Aspirin Chewable Tablet (Baby Aspirin Ch (05/20/19 21:30) BNP (05/20/19 22:01) Morphine Injection (Morphine Injection (05/20/19 22:19) Heparin Drip 19935 Unit/500ml (Heparin (05/20/19 22:29) Heparin (Bolus Per Protocol) (Heparin (B (05/20/19 22:29) Nitroglycerin Ointment (Nitrobid Ointme (05/20/19 22:30) Ct Angio Chest W (05/20/19 22:47) Ns Iv 1000 Ml (Sodium Chloride 0.9%) (05/20/19 22:47) Morphine Injection (Morphine Injection (05/21/19 00:15) Medications Given in ED Current Medications Medications Dose Ordered Sig/Lamin Route Start Time Stop Time Status Last Admin Dose Admin Aspirin 324 mg ONCE ONCE PO 05/20/19 21:30 05/20/19 21:31 DC 05/20/19 21:44 324 MG Heparin Sodium (Porcine) HEPARIN BOLUS ACS PROTOC... 2229 ONCE IV 05/20/19 22:29 05/20/19 22:31 DC 05/20/19 23:49 5,000 UNIT Heparin Sodium/ Dextrose 500 ml @ 0 mls/hr Q0M ONCE IV 05/20/19 22:29 05/20/19 22:31 DC 05/20/19 23:51 20 MLS/HR Nitroglycerin 1 inch ONCE ONCE TOP 05/20/19 22:30 05/20/19 22:32 DC 05/20/19 22:52 1 INCH Sodium Chloride 1,000 ml @ 0 mls/hr Q0M ONCE IV 05/20/19 22:47 05/20/19 22:49 DC 05/20/19 23:49 0 MLS/HR Vital Signs/I&O 05/20/19 05/20/19 05/21/19 20:54 21:00 00:40 Temp 36.0 Pulse 96 87 Resp 24 21 B/P (MAP) 139/88 (105) 134/83 Pulse Ox 94 93 93 O2 Delivery Room Air Nasal Cannula Nasal Cannula O2 Flow Rate 2.00 2.00 Blood Pressure Mean: 105 Progress Progress Note : Time: 23:50 Progress Note Cardiac workup was unremarkable. Patient's pain was unrelieved with nitroglycerin at home. Aspirin 324 mg was given. Two doses of morphine 5 mg each were given to treat the pain. Discussed the case with Dr. Maxwell who also reviewed the cardiac catheter report from March. He recommends transfer to [facility] for continuity of care and higher level of care given his co mplex cardiac anatomy. Case was discussed with Dr. Kang at [facility] who accepted care. He requested a heparin drip be initiated as well as nitroglycerin paste or drip initiated. Given the nature of patient's pain radiating to his back, rule out of aortic pathology was felt appropriate before transfer. CT angiogram was performed and revealed no aortic disease. Heparin drip is being initiated and EMS is being activated for transfer. Patient received a liter of IV normal saline because of the contrast administration for CT. Initial ECG Impression Date: May 20, 2019 Initial ECG Impression Time: 20:57 Initial ECG Rate: 96 Initial ECG Rhythm: Normal Sinus Initial ECG Intervals: Normal Initial ECG Impression: Normal Comment Normal sinus rhythm with no ST elevation or depression. No abnormal intervals or axis deviation. Diagnostic Imaging Diagonstic Imaging: Xray Plain Films/CT/US/NM/MRI: chest Comments Chest x-ray viewed by me and report reviewed. See report below: NAME: LUCI MCMULLEN MED REC#: [id number] PT STATUS: REG ER : 1965 PHYSICIAN: JORGE OLMOS MD ADMIT DATE: 05/20/19/ER Signed Date of Exam:05/20/19 CHEST 1 VIEW, AP/PA ONLY INDICATION: Chest pain COMPARISON: 05/03/2019 FINDINGS: Single view of the chest demonstrates cardiac enlargement with slight central vascular congestion. There is no pneumothorax or effusion. Osseous structures are normal. IMPRESSION: Cardiac enlargement with central vascular congestion. Dictated by: Dictated on workstation # [id number] Dict: 05/20/192124 Trans: 05/20/192133 [facility] [id number] Interpreted by: VICTORIA GARZA Electronically signed by: VICTORIA GARZA 05/20/192133 Diagonstic Imaging: CT Plain Films/CT/US/NM/MRI: chest Comments CT angiogram chest viewed by me and [employer] report reviewed. No aortic or p ulmonary pathology noted to account for patient's pain. Specifically, there was no aortic dissection or pulmonary embolus. Departure Impression Primary Impression: Chest pain Qualified Codes: R07.9 - Chest pain, unspecified Additional Impression: Coronary artery disease Qualified Codes: I25.10 - Atherosclerotic heart disease of hopi coronary artery without angina pectoris Disposition: XFER SHT-TRM HOSP Condition: Improved Transfer Transfer Reason: Exceeds level of care Time Spoke to Accepting Phy: 22:25 Transfer Progress Notes Transfer accepted by Dr. Kang to [facility] in [place] Transfer Facility: [facility] Method of Transfer: EMS Departure-Patient Inst. Referrals: IRINEO GONSALEZ DO (PCP/Family) Primary Care Physician Copy Copies To 1: ROSS RODRÍGUEZ MD Copies To 2: IRINEO GONSALEZ JOSHUA T MD May 20, 2019 23:43
[2019-05-21] MEDS ORDERED: morphine INJ 10 MG/ML 1ML (SYR OR VIAL) IVP STA (00:15)
[2019-05-21 00:40] VITALS: BP 134/83
--- NOTE | 2019-05-21 06:15 | Diagnostic Imaging Report ---
PROCEDURE: CT angiography of the chest with contrast. TECHNIQUE: Multiple contiguous axial images were obtained through the chest after uneventful bolus administration of intravenous contrast. 3D reconstructed CTA MIP acquisitions were also performed. Auto Exposure Controls were utilized during the CT exam to meet ALARA standards for radiation dose reduction. INDICATION: Chest pain. Comparison is made with prior CT chest from 07/12/2018. The right thyroid lobe demonstrates low-density nodule, similar to prior exam. The pulmonary arterial system is without evidence of thromboembolism. No definite filling defects are seen within the lobar, segmental or subsegmental branches. Thoracic aorta is normal caliber. No dissection is seen. There is no pericardial or pleural fluid identified. The pulmonary parenchymal evaluation does demonstrate some minimal infiltrate or atelectasis in the lingula and left lower lobe. Otherwise, the lungs are clear. Upper abdomen demonstrates a small nonobstructing calculus in the right kidney. IMPRESSION: 1. No evidence of pulmonary embolism or thoracic aortic dissection. 2. Minimal left basilar infiltrate or atelectasis. 3. Stable right lobe thyroid nodule. 4. Small nonobstructing right renal calculus. Dictated by: Dictated on workstation # [id number]
== END 2019-05-21 00:40 | disposition short-term general hospital (02) ==
LOC: EDUNIT# 20:50 → ER 20:51
DX: I25.10 Atherosclerotic heart disease of native coronary artery without angina pectoris (principal); I25.2 Old myocardial infarction; J44.9 Chronic obstructive pulmonary disease, unspecified; E78.00 Pure hypercholesterolemia, unspecified; I10 Essential (primary) hypertension; G43.909 Migraine, unspecified, not intractable, without status migrainosus; E11.40 Type 2 diabetes mellitus with diabetic neuropathy, unspecified; M79.7 Fibromyalgia; M06.9 Rheumatoid arthritis, unspecified; M10.9 Gout, unspecified; F41.9 Anxiety disorder, unspecified; F32.9 Major depressive disorder, single episode, unspecified; Z87.442 Personal history of urinary calculi; Z79.82 Long term (current) use of aspirin; Z79.4 Long term (current) use of insulin; Z79.51 Long term (current) use of inhaled steroids; Z90.89 Acquired absence of other organs; Z90.49 Acquired absence of other specified parts of digestive tract; Z95.5 Presence of coronary angioplasty implant and graft; Z80.0 Family history of malignant neoplasm of digestive organs
CPT/HCPCS: 36415; 71045; 71275; 80053; 83735; 83874; 83880; 84484; 85025; 85610; 85730; 93005; 93041; 96361; 96365; 96375; 96376

== ENCOUNTER 2019-05-30 09:00 | Observation (INO) | payer MEDICARE, OTHER ==
[~2019-05-30] VITALS: Ht 180.3 cm; Wt 121.1 kg
[2019-05-30] VITALS (10 sets, daily range): BP systolic 105–128; BP diastolic 66–83
[2019-05-30 09:19] LABS: BASOPHILS # (AUTO) 0.1 10^3/uL (0.0-0.1); BASOPHILS % (AUTO) 1 % (0-10); EOSINOPHILS # (AUTO) 0.4 10^3/uL (0.0-0.3); EOSINOPHILS % (AUTO) 5 % (0-10); HEMATOCRIT 46 % (40-54); HEMOGLOBIN 15.6 G/DL (13.3-17.7); LYMPHOCYTES # (AUTO) 2.1 X 10^3 (1.0-4.0); LYMPHOCYTES % (AUTO) 24 % (12-44); MEAN CORPUSCULAR HEMOGLOBIN 31 PG (25-34); MEAN CORPUSCULAR HGB CONC 34 G/DL (32-36); MEAN CORPUSCULAR VOLUME 91 FL (80-99); MEAN PLATELET VOLUME 11.4 FL (7.4-10.4); MONOCYTES # (AUTO) 0.9 X 10^3 (0.0-1.0); MONOCYTES % (AUTO) 10 % (0-12); NEUTROPHILS # (AUTO) 5.5 X 10^3 (1.8-7.8); NEUTROPHILS % (AUTO) 61 % (42-75); PLATELET COUNT 187 10^3/uL (130-400); RED CELL DISTRIBUTION WIDTH 13.7 % (10.0-14.5)
[2019-05-30] MEDS: NITROGLYCERIN 0.4 MG SL TABS BTL 25'S SL PRN (09:29)
--- NOTE | 2019-05-30 09:30 | Diagnostic Imaging Report ---
INDICATION: Chest pain. Portable chest 9:23 AM FINDINGS: Heart size and pulmonary vascularity are normal. Lungs are clear. There are no effusions or pneumothoraces. IMPRESSION: Negative chest. Dictated by: Dictated on workstation # [id number]
[2019-05-30 09:35] LABS: PROTHROMBIN TIME PATIENT 13.6 SEC (12.2-14.7)
[2019-05-30 09:43] LABS: ALBUMIN 4.5 GM/DL (3.2-4.5); BILIRUBIN,TOTAL 0.5 MG/DL (0.1-1.0); CALCIUM 9.6 MG/DL (8.5-10.1); CREATININE SERUM 1.68 MG/DL (0.60-1.30); MAGNESIUM 1.5 MG/DL (1.6-2.4); POTASSIUM 4.3 MMOL/L (3.6-5.0); TOTAL PROTEIN 7.5 GM/DL (6.4-8.2)
[2019-05-30] MEDS ORDERED: ANTACID SUSP 30 ML UDC (MYLANTA) PO ONE (09:45)
[2019-05-30] MEDS ORDERED: LIDOCAINE 2% VISCOUS 15 ML UDC PO ONE (09:45)
--- NOTE | 2019-05-30 09:47 | ED Chest Pain ---
General Chief Complaint: Chest Pain Stated Complaint: CHEST PAIN Nursing Triage Note: pt presents to ed with complaints of CP that radiates to r shoulder and back starting at 0100 this am. Pt also reports SOA with exertion. Pt reports his last stent was placed May 21 in [place]. Nursing Sepsis Screen: No Definite Risk Source: patient Exam Limitations: no limitations History of Present Illness Date Seen by Provider: May 30, 2019 Time Seen by Provider: 09:02 Initial Comments Here with report of chest pain started about 1 AM this morning. Overnight he had the chest pain and did take nitroglycerin 3. This didn't help. Denies nausea or vomiting. Was short of breath for a little bit and felt like maybe he had some sweating last night but that does not persist. Has had 3 stents placed over the last several months including the last one done in [place]. He tried nitroglycerin which helped some as well as Tums which did not help at all. Noticed that his heart has beat faster since his last heart catheter and stent placement on 20 May. He does follow with Dr. Núñez. Timing/Duration: 12 hours Severity/Quality: moderate, sharp Location: back Radiation: no radiation Activities at Onset: none Prior CP/Workup: angina, cardiac cath, echocardiography, heart attack, stress test ASA po SANE NURSE: Yes NTG SL SANE NURSE: Yes Associated Symptoms: No abdominal pain; back pain, diaphoresis; No edema, No fever/chills, No heartburn, No nausea/vomiting; shortness of breath; No weakness Allergies and Home Medications Allergies Coded Allergies: No Known Drug Allergies (Unverified , 11/21/18) Home Medications Albuterol Sulfate 1 Puff Puff, 2 PUFF IH Q4H PRN for SHORTNESS OF BREATH, (Reported) 1 PUFF = 90 MCG Allopurinol 300 Mg Tablet, 300 MG PO DAILY, (Reported) Ascorbic Acid 500 Mg Tablet, 1,000 MG PO BID, (Reported) Aspirin 81 Mg Tablet.dr, 81 MG PO DAILY, (Reported) Baclofen 10 Mg Tablet, 10 MG PO TID PRN for SPASMS, (Reported) Cholecalciferol (Vitamin D3) 5,000 Unit Capsule, 5,000 UNIT PO DAILY, (Reported) Diclofenac Sodium 100 Gm Gel..gram., 2 GM TOP QID PRN for SHOULDER PAIN, (Reported) Fenofibrate,Micronized 134 Mg Capsule, 134 MG PO HS, (Reported) Fluticasone Propion/Salmeterol 1 Each Blst.w.dev, 1 PUFF INH BID PRN for SHORTNESS OF BREATH, (Reported) Gabapentin 300 Mg Capsule, 1,500 MG PO HS, (Reported) TAKES 5 (300MG) CAPSULES Gabapentin 300 Mg Capsule, 300 MG PO DAILY, (Reported) Hydrocodone/Acetaminophen 1 Each Tablet, 1 TAB PO Q6H PRN for PAIN-MODERATE (5- 7), (Reported) Insulin Glargine,Hum.rec.anlog 300 Unit/1 Ml Insuln.pen, 140 UNITS SC 1800, (Reported) Insulin Lispro 100 Unit/1 Ml Insuln.pen, 52 UNIT SQ TIDAC, (Reported) Isosorbide Mononitrate 30 Mg Tab.er.24h, 30 MG PO DAILY, (Reported) Lisinopril 20 Mg Tablet, 20 MG PO DAILY, (Reported) Metformin HCl 500 Mg Tab.er.24h, 500 MG PO DAILY, (Reported) Metoprolol Tartrate 50 Mg Tablet, 50 MG PO BID, (Reported) Montelukast Sodium 10 Mg Tablet, 10 MG PO HS, (Reported) Ardara-3 Acid Ethyl Esters 1 Gm Capsule, 2 GM PO BID, (Reported) TAKES 2 (1GM) CAPSULES Pediatric Multivit Comb No.136 1 Each Tab.chew, 2 TAB.CHEW PO DAILY, (Reported) Pitavastatin Calcium 4 Mg Tablet, 4 MG PO HS, (Reported) Prasugrel HCl 10 Mg Tablet, 10 MG PO DAILY, (Reported) Promethazine HCl 25 Mg Tablet, 25 MG PO Q6H PRN for NAUSEA/VOMITING-2ND LINE, (Reported) Ubidecarenone 100 Mg Capsule, 100 MG PO DAILY, (Reported) TAKES ALONG WITH 200MG CAPSULE FOR A TOTAL DAILY DOSE OF 300MG Ubidecarenone 200 Mg Capsule, 200 MG PO DAILY, (Reported) TAKEA ALONG WITH 100MG CAPSULE FOR A TOTAL DAILY DOSE OF 300MG Patient Home Medication List Home Medication List Reviewed: Yes Review of Systems Review of Systems Constitutional: see HPI EENTM: No Symptoms Reported Respiratory: See HPI; Denies Orthopnea, Denies SOA at Rest, Denies Wheezing Cardiovascular: See HPI; Denies Irregular Heart Rate, Denies Syncope Gastrointestinal: Denies Abdominal Pain, Denies Constipated, Denies Diarrhea Genitourinary: No Symptoms Reported Musculoskeletal: see HPI; No joint pain, No neck pain Skin: no symptoms reported Psychiatric/Neurological: No Symptoms Reported All Other Systems Reviewed Negative Unless Noted: Yes Past Rnnpsky-Fpmyxg-Ryookf Hx Past Med/Social Hx: Reviewed Nursing Past Med/Soc Hx Patient Social History Alcohol Use: Denies Use Number of Drinks Today: BB Alcohol Beverage of Choice: Beer, [place] Recreational Drug Use: No Smoking Status: Never a Smoker Type Used: Smokeless Tobacco 2nd Hand Smoke Exposure: No Recent Foreign Travel: No Contact w/Someone Who Travel: No Recent Infectious Disease Expo: No Recent Hopitalizations: Yes (stent 05/03/19) Physical Abuse: No Sexual Abuse: No Mistreated: No Fear: No Immunizations Up To Date Tetanus Booster (TDap): Unknown PED Vaccines UTD: Yes Date of Pneumonia Vaccine: Feb 23, 2016 Date of Influenza Vaccine: Feb 22, 2019 Seasonal Allergies Seasonal Allergies: Yes Past Medical History Surgeries: Yes (LITHOTRIPSY, BACK X4, L KNEE ACL REPAIR, WISDOM TEETH,) Abdominal, Adenoidectomy, Appendectomy, Coronary Stent, Gallbladder, Orthopedic, Tonsillectomy Respiratory: Yes (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, 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) Pneumonia, Sleep Apnea, COPD Currently Using CPAP: No Currently Using BIPAP: No Cardiac: Yes Chronic Edema/Swelling, Coronary Artery Disease, High Cholesterol, Hypertension Neurological: Yes Headaches /Migraines, Neuropathy Reproductive Disorders: No Sexually Transmitted Disease: No HIV/AIDS: No Genitourinary: Yes Kidney Stones, Renal Failure Gastrointestinal: Yes (ABDOMINAL ADHESIONS, FREQUENT SMALL BOWEL OBSTRUCTIONS) Abdominal Hernia, Obstructive Bowel, Polyps Musculoskeletal: Yes Degenerate Disk Disease, Arthritis, Fibromyalgia, Rheumatoid Arthritis, Back Injury, Chronic Back Pain, Fractures, Gout Endocrine: Yes (WEARS CONTINUOS GLUCOSE MONITOR) Diabetes, Insulin dep HEENT: No Tonsilitis Loss of Vision: Bilateral Hearing Impairment: Denies Cancer: No Psychosocial: Yes Anxiety, Depression Integumentary: No Blood Disorders: No Adverse Reaction/Blood Tranf: No (N/A) Family Medical History Reviewed Nursing Family Hx Abdominal aortic aneurysm 09 BROTHER Cancer 03 MOTHER Cancer of colon 03 MOTHER 09 SISTER 19 MOTHER FH: COPD (chronic obstructive pulmonary disease) 19 FATHER FH: leukemia 09 SISTER 19 MOTHER FHx: stroke 19 FATHER Family history: Diabetes mellitus 09 BROTHER 09 SISTER 09 SISTER 09 SISTER Family history: Gastrointestinal disease 03 MOTHER 09 BROTHER No Pertinent Family Hx Physical Exam Vital Signs Vital Signs - First Documented 05/30/19 09:14 Temp 36.2 Pulse 101 Resp 20 B/P (MAP) 120/84 (96) Pulse Ox 92 Capillary Refill : Less Than 3 Seconds Height, Weight, BMI Height: 5'11.00" Weight: 260lbs. 8.0oz. 117.526871cp; 37.00 BMI Method:Stated General Appearance: No Apparent Distress, WD/WN HEENT: PERRL/EOMI, Pharynx Normal Neck: Non Tender, Supple Respiratory: Lungs Clear, Normal Breath Sounds Cardiovascular: No Murmur, Tachycardia Gastrointestinal: Non Tender, Soft Extremity: Normal Range of Motion, Non Tender, No Calf Tenderness, No Pedal Edema Neurologic/Psychiatric: Alert, Oriented x3 Skin: Normal Color, Warm/Dry Progress/Results/Core Measures Results/Orders Lab Results Laboratory Tests Test 05/30/19 09:07 Range/Units White Blood Count 9.0 4.3-11.0 10^3/uL Red Blood Count 5.02 4.35-5.85 10^6/uL Hemoglobin 15.6 13.3-17.7 G/DL Hematocrit 46 40-54 % Mean Corpuscular Volume 91 80-99 FL Mean Corpuscular Hemoglobin 31 25-34 PG Mean Corpuscular Hemoglobin Concent 34 32-36 G/DL Red Cell Distribution Width 13.7 10.0-14.5 % Platelet Count 187 130-400 10^3/uL Mean Platelet Volume 11.4 H 7.4-10.4 FL Neutrophils (%) (Auto) 61 42-75 % Lymphocytes (%) (Auto) 24 12-44 % Monocytes (%) (Auto) 10 0-12 % Eosinophils (%) (Auto) 5 0-10 % Basophils (%) (Auto) 1 0-10 % Neutrophils # (Auto) 5.5 1.8-7.8 X 10^3 Lymphocytes # (Auto) 2.1 1.0-4.0 X 10^3 Monocytes # (Auto) 0.9 0.0-1.0 X 10^3 Eosinophils # (Auto) 0.4 H 0.0-0.3 10^3/uL Basophils # (Auto) 0.1 0.0-0.1 10^3/uL Prothrombin Time 13.6 12.2-14.7 SEC INR Comment 1.0 0.8-1.4 Activated Partial Thromboplast Time 28 24-35 SEC D-Dimer 0.44 0.00-0.49 UG/ML Sodium Level 139 135-145 MMOL/L Potassium Level 4.3 3.6-5.0 MMOL/L Chloride Level 105 98-107 MMOL/L Carbon Dioxide Level 20 L 21-32 MMOL/L Anion Gap 14 5-14 MMOL/L Blood Urea Nitrogen 34 H 7-18 MG/DL Creatinine 1.68 H 0.60-1.30 MG/DL Estimat Glomerular Filtration Rate 43 BUN/Creatinine Ratio 20 Glucose Level 297 H 70-105 MG/DL Calcium Level 9.6 8.5-10.1 MG/DL Corrected Calcium 9.2 8.5-10.1 MG/DL Magnesium Level 1.5 L 1.6-2.4 MG/DL Total Bilirubin 0.5 0.1-1.0 MG/DL Aspartate Amino Transf (AST/SGOT) 38 H 5-34 U/L Alanine Aminotransferase (ALT/SGPT) 56 H 0-55 U/L Alkaline Phosphatase 59 40-136 U/L Myoglobin 137.0 H 10.0-92.0 NG/ML Troponin I < 0.028 <0.028 NG/ML B-Type Natriuretic Peptide < 10.0 <100.0 PG/ML Total Protein 7.5 6.4-8.2 GM/DL Albumin 4.5 3.2-4.5 GM/DL Lipase 44 8-78 U/L My Orders Orders - MAINE WONG MD Ekg Tracing (05/30/19 09:02) Cbc With Automated Diff (05/30/19 09:08) Magnesium (05/30/19 09:08) Chest 1 View, Ap/Pa Only (05/30/19 09:08) Comprehensive Metabolic Panel (05/30/19 09:08) Myoglobin Serum (05/30/19 09:08) Protime With Inr (05/30/19 09:08) Partial Thromboplastin Time (05/30/19 09:08) O2 (05/30/19 09:08) Monitor-Rhythm Ecg Trace Only (05/30/19 09:08) Lipid Panel (05/31/19 06:00) Ed Iv/Invasive Line Start (05/30/19 09:08) Lipase (05/30/19 09:08) Fibrin Degradation Products (05/30/19 09:08) Troponin I (05/30/19 09:08) Nitroglycerin 0.4 Mg Btl 25's (Nitrostat (05/30/19 09:15) Lidocaine 2% Viscous 15 Ml (Xylocaine Vi (05/30/19 09:45) Antacid Suspension (Mylanta Suspension (05/30/19 09:45) BNP (05/30/19 09:41) Ketorolac Injection (Toradol Injection) (05/30/19 11:00) Ed Iv/Invasive Line Start (05/30/19 11:29) Ns Iv 500 Ml (Sodium Chloride 0.9%) (05/30/19 11:29) Troponin I (05/30/19 11:48) Morphine Injection (Morphine Injection (05/30/19 12:45) Pantoprazole Injection (Protonix Injecti (05/30/19 12:45) Medications Given in ED Current Medications Medications Dose Ordered Sig/Lamin Route Start Time Stop Time Status Last Admin Dose Admin Al Hydrox/Mg Hydrox/Simethicone 30 ml ONCE ONCE PO 05/30/19 09:45 05/30/19 09:46 DC 05/30/19 10:15 30 ML Lidocaine HCl 15 ml ONCE ONCE PO 05/30/19 09:45 05/30/19 09:46 DC 05/30/19 10:15 15 ML Morphine Sulfate 2 mg ONCE ONCE IVP 05/30/19 12:45 05/30/19 12:46 DC 05/30/19 12:48 2 MG Nitroglycerin 0.4 mg UD PRN SL 05/30/19 09:15 05/30/19 09:29 0.4 MG Pantoprazole 40 mg ONCE ONCE IV 05/30/19 12:45 05/30/19 12:46 DC 05/30/19 12:49 40 MG Sodium Chloride 500 ml @ 0 mls/hr Q0M ONCE IV 05/30/19 11:29 05/30/19 11:30 DC 05/30/19 12:21 0 MLS/HR Vital Signs/I&O 05/30/19 09:14 Temp 36.2 Pulse 101 Resp 20 B/P (MAP) 120/84 (96) Pulse Ox 92 Blood Pressure Mean: 96 Progress Progress Note : Progress Note Seen and evaluated. IV, labs, EKG and chest x-ray ordered. Patient has taken aspirin already today so we will hold that and he is on Brilinta. Nitroglycerin sublingual ordered and when given but blood pressure dropped to 100 systolic so it was held after that. GI cocktail given. Pending labs. Monitor patient. 1245: I discussed the case with Dr. Núñez and he has seen the patient in the emergency department. Patient is still having pain. Morphine 2 mg IV ordered. Protonix 40 mg IV ordered. We will put him in overnight observation status for the chest pain. Dr. Núñez will admit. Discussed with the patient who agrees with plan. Initial ECG Impression Date: May 30, 2019 Initial ECG Impression Time: 09:02 Initial ECG Rate: 102 Initial ECG Rhythm: S.Tach Comment Sinus tachycardia with normal axis. No evidence of ST elevation NC. Similar to previous of 05/20/19. Interpreted by me. Diagnostic Imaging Diagonstic Imaging: Xray Plain Films/CT/US/NM/MRI: chest Comments [facility]. [place], [place] NAME: LUCI MCMULLEN [facility] REC#: [id number] PT STATUS: REG ER : 1965 PHYSICIAN: MANIE WONG MD ADMIT DATE: 05/30/19/ER Draft Date of Exam:05/30/19 CHEST 1 VIEW, AP/PA ONLY INDICATION: Chest pain. Portable chest 9:23 AM FINDINGS: Heart size and pulmonary vascularity are normal. Lungs are clear. There are no effusions or pneumothoraces. IMPRESSION: Negative chest. Dictated on workstation # [id number] Dict: 05/30/19926 Trans: 05/30/19929 [id number] Interpreted by: MAINE GRIDER MD Electronically signed by: Departure Communication (Admissions) Time/Spoke to Admitting Phy: 12:35 Impression Primary Impression: Chest pain Qualified Codes: R07.9 - Chest pain, unspecified Disposition: ADMITTED INPATIENT Condition: Stable Admissions Decision to Admit Reason: Admit from ER (General) Decision to Admit/Date: May 30, 2019 Time/Decision to Admit Time: 12:35 Departure-Patient Inst. Referrals: IRINEO GONSALEZ DO (PCP/Family) Primary Care Physician MAINE WONG MD May 30, 2019 09:47
[2019-05-30] MEDS ORDERED: KETOROLAC 30 MG/ML VIAL IVP STA (11:00)
[2019-05-30] MEDS ORDERED: NS IV 500 ML 500 ML IV ONE (11:29)
--- NOTE | 2019-05-30 11:50 | NUR ---
PT REPORTS INCREASED CP AT THIS TIME. DR WONG INFORMED.
--- NOTE | 2019-05-30 12:34 | NUR ---
DR. RODRÍGUEZ HERE TO SEE PT AT THIS TIME.
[2019-05-30] MEDS ORDERED: morphine INJ 10 MG/ML 1ML (SYR OR VIAL) IVP ONE (12:45)
[2019-05-30] MEDS ORDERED: PANTOPRAZOLE 40 MG (PROTONIX) VIAL IV ONE (12:45)
--- NOTE | 2019-05-30 13:14 | Cardiology History & Physical ---
HPI-Cardiology Cardiology Consultation Date of Consultation 05/30/19 Date of Admission Time Seen by Provider: 13:10 Indication: chest pain HPI 53 years old gentleman with history of Coronary artery disease, multiple intervention the past few months, was discharged from [facility] last week, starting to have chest pain around 1 a.m., took 3 nitroglycerin with no relief, came into the emergency room and it was fairly anxious. Given one sublingual nitroglycerin, became hypotensive. Received IV fluid. On my evaluation was feeling slightly better, still having mild chest discomfort, described it as dull achiness on the right side of his chest. Not radiating, no shortness of breath. No palpitation. No syncope or near syncopal episodes. 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) COPD, Pneumonia, Sleep Apnea Cardiovascular Yes High Cholesterol, Hypertension Neurological Yes Headaches /Migraines, Neuropathy Reproductive System Hx Reproductive Disorders: No Sexually Transmitted Disease: No HIV/AIDS: No Genitourinary Yes Kidney Stones, Renal Failure Gastrointestinal Yes (ABDOMINAL ADHESIONS, FREQUENT SMALL BOWEL OBSTRUCTIONS) Abdominal Hernia, Obstructive Bowel, Polyps Musculoskeletal Yes Degenerate Disk Disease, Arthritis, Fibromyalgia, Rheumatoid Arthritis, Back Injury, Chronic Back Pain, Fractures, Gout Endocrine Yes (WEARS CONTINUOS GLUCOSE MONITOR) Diabetes, Insulin dep HEENT No Tonsilitis Loss of Vision: Bilateral Hearing Impairment: Denies Cancer No Psychosocial Yes Anxiety, Depression Integumentary No Blood Transfusions No Adverse Rxn to Transfusion: No (N/A) Social History Patient Social History Marrital Status: Alcohol Use: Denies Use Recreational Drug Use: No Dip or chew tobacco?: No Recent Foreign Travel: No Contact w/other who traveled: No Recent Infectious Disease Expo: No Family Hx Significant Family History: No Pertinent Family Hx Family History: 03 MOTHER Cancer Cancer of colon Family history: Gastrointestinal disease 09 BROTHER Family history: Gastrointestinal disease Abdominal aortic aneurysm 09 BROTHER Family history: Diabetes mellitus 09 SISTER Cancer of colon 09 SISTER Family history: Diabetes mellitus 09 SISTER Family history: Diabetes mellitus 09 SISTER Family history: Diabetes mellitus 09 SISTER FH: leukemia 19 FATHER FH: COPD (chronic obstructive pulmonary disease) FHx: stroke 19 MOTHER Cancer of colon FH: leukemia ROS-Cardiology Review of Systems General: No Chills, No Night Sweats, No Fatigue, No Malaise, No Appetite HEENT: No Head Aches, No Visual Changes, No Eye Pain, No Ear Pain, No Dysphasia, No Sinus Congestion, No Post Nasal Drip, No Sore Throat Pulmonary: Dyspnea; No Cough, No Pleuritic Chest Pain Cardiovascular: Chest Pain; No: Palpitations, Orthopnea, Paroxysmal Noc. Dyspnea, Edema, Lt Headedness Gastrointestinal: No: Nausea, Vomiting, Abdominal Pain, Diarrhea, Constipation, Melena, Hematochezia Genitourinary: No Dysuria, No Frequency, No Incontinence, No Hematuria, No Retention Musculoskeletal: No: neck pain, shoulder pain, arm pain, back pain, hand pain, leg pain, foot pain Neurological: No: Weakness, Numbness, Incoordination, Change in speech, Confusion, Seizures Home Medications & Allergies Allergies: Coded Allergies: No Known Drug Allergies (Unverified , 11/21/18) Home Medication List Reviewed: Yes Exam-Cardiology Vital Signs Vital Signs Date Time Temp Pulse Resp B/P (MAP) Pulse Ox O2 Delivery O2 Flow Rate FiO2 05/30/19 09:14 36.2 101 20 120/84 (96) 92 Exam General Appearance: Alert, Oriented X3, Cooperative, No Acute Distress HEENT: Atraumatic, PERRLA Respiratory: Clear to Auscultation, Normal Air Movement Cardiovascular: Regular Rate, Normal S1, Normal S2, No Murmurs Abdominal: Normal Bowel Sounds, Soft, No Tenderness, No Hepatosplenomegaly, No Masses Extremities: No Clubbing, No Cyanosis, No Edema, Normal Pulses, No Tenderness/Swelling Skin: No Rashes, No Breakdown, No Significant Lesion Neuro: Normal Gait, Normal Speech, Strength at 5/5 X4 Ext, Normal Tone, Sensation Intact Psych/Mental Status: Mental Status NL, Mood NL Results Labs Labs Laboratory Tests 05/30/19 09:07: White Blood Count 9.0, Red Blood Count 5.02, Hemoglobin 15.6, Hematocrit 46, Mean Corpuscular Volume 91, Mean Corpuscular Hemoglobin 31, Mean Corpuscular Hemoglobin Concent 34, Red Cell Distribution Width 13.7, Platelet Count 187, Areli n Platelet Volume 11.4H, Neutrophils (%) (Auto) 61, Lymphocytes (%) (Auto) 24, Monocytes (%) (Auto) 10, Eosinophils (%) (Auto) 5, Basophils (%) (Auto) 1, Neutrophils # (Auto) 5.5, Lymphocytes # (Auto) 2.1, Monocytes # (Auto) 0.9, Eosinophils # (Auto) 0.4H, Basophils # (Auto) 0.1, Prothrombin Time 13.6, INR Comment 1.0, Activated Partial Thromboplast Time 28, D-Dimer 0.44, Sodium Level 139, Potassium Level 4.3, Chloride Level 105, Carbon Dioxide Level 20L, Anion Gap 14, Blood Urea Nitrogen 34H, Creatinine 1.68H, Estimat Glomerular Filtration Rate 43, BUN/Creatinine Ratio 20, Glucose Level 297H, Calcium Level 9.6, Corrected Calcium 9.2, Magnesium Level 1.5L, Total Bilirubin 0.5, Aspartate Amino Transf (AST/SGOT) 38H, Alanine Aminotransferase (ALT/SGPT) 56H, Alkaline Phosphatase 59, Myoglobin 137.0H, Troponin I < 0.028, B-Type Natriuretic Peptide < 10.0, Total Protein 7.5, Albumin 4.5, Lipase 44 A/P-Cardiology Admission Diagnosis Chest pain Coronary artery disease Hypertension Hyperlipidemia Admission Status: Observation Assessment/Plan Chest pain resembling angina, EKG did not show any acute changes, myoglobin is m ildly elevated, troponin is negative. Could not tolerate nitroglycerin due to hypotension. I will give him morphine and evaluate tolerance and response, monitor cardiac enzymes. Coronary artery disease, non-ST elevation cardiac infarction occurred recently, had severe stenosis at the right coronary artery with successful deployment of Maday 4 x 23 mm stent expanded to 4.5 mm with excellent results. The distal right PDA is occluded, small vessel disease, circumflex has severe diffuse disease, underwent stenting on May 03, 2019 in [facility], I do not have the report in addition he had [id number] ectasia in the LAD, mild to moderate diffuse disease, went to [facility] late in April 2019 and had another stent to the LAD, was doing well until early this morning. Continue to monitor EKG Sinus tachycardia, started low-dose beta blockers and monitor Hypertension, was borderline hypotensive in the emergency room, received IV fluid, blood pressure is better. Continue to monitor Hyperlipidemia, evaluate lipid profile and continue on statin Diabetes mellitus, followed and managed by primary care physician COPD/obstructive sleep apnea Obesity, BMI 37 Multiple back surgeries, recent knee surgery Clinical Quality Measures AMI/AHF: ASA po Prior to arrival: Yes ROSS RODRÍGUEZ MD May 30, 2019 1:14 pm
[2019-05-30] MEDS ORDERED: ENOXAPARIN 100 MG/1 ML (LOVENOX) SYR SC SCH (13:30)
[2019-05-30] MEDS ORDERED: ONDANSETRON 4 MG/2 ML (SDV) Z0FRAN IV PRN (14:15)
[2019-05-30] MEDS ORDERED: PANT40TA3 PO (14:55)
[2019-05-30] MEDS ORDERED: FURO40TA4 PO (15:03)
[2019-05-30] MEDS ORDERED: CARV6.252 PO (15:03)
--- NOTE | 2019-05-30 15:12 | NUR ---
SPOKE WITH THE PT (HE HAD A MED LIST ON HIS FILE FROM THE LAST VISIT),CALLED [facility] FOR A MED L[facility] AND WENT THRU THE EXT MED HIST TO COMPLETE THE MED REC. PT SAYS HIS MED LIST IS NOT UP TO DATE, SO I FOLLOWED UP WITH [facility] TO GET A MED LIST FROM THEM. I THEN INTERVIEWED THE PATIENT AND WAS ABLE TO COMPLETE THE MED REC. PT WAS ABLE TO TELL ME HIS MEDS WELL WHEN/ HOW HE TAKES EACH ONE. ALL MEDS MATCHED THE [facility] LIST AND THE EXT MED HISTORY. NORCO, BACLOFEN, PROMETHAZINE, AND VOLTAREN ARE ALL PRN AND HE SAYS HE HARDLY EVER TAKES THEM. BRILINTA IS ON THE EXT MED HISTORY BUT THAT WAS RECENTLY CHANGED TO EFFIENT. PT IS CONFIDENT THAT EVERYTHING WE DISCUSSED WAS CORRECT BUT HIS IS BRINGING IN HIS MED LIST THIS EVENING. I AM GOING TO LET THE NURSE KNOW TO MAKE A COPY SO I CAN VERIFY. OTC MEDS: VIT C VIT D MTV COQ10
[2019-05-30] MEDS: PANTOPRAZOLE 40 MG (PROTONIX) VIAL IV SCH (15:34)
[2019-05-30] MEDS: morphine INJ 4 MG/ML 1 ML (VIAL/SYRINGE) IV PRN ×3 (15:35→21:00)
[2019-05-30] MEDS: ENOXAPARIN 300 MG/3 ML (LOVENOX) MULTI-DOSE VIAL SQ SCH (15:35)
--- NOTE | 2019-05-30 18:39 | NUR ---
patient is rivera patient and has brought in own meds. patient gave himself insulin before order from dr. mays came through. this nurse was not aware of this until speaking to the patient about medications before pulling his insulin.
[2019-05-30] MEDS: TICAGRELOR 90 MG TABLET (BRILINTA) PO SCH (20:25)
[2019-05-30] MEDS: meTOprolol TARTRATE 50 MG (LOPRESSOR) TAB PO SCH (20:33)
[2019-05-30] MEDS ORDERED: FENOFIBRATE 134 MG (LOFIBRA) CAPSULE PO SCH (21:00)
[2019-05-30] MEDS ORDERED: PITAVASTATIN CALCIUM 4 MG PO SCH (21:00)
--- NOTE | 2019-05-30 21:40 | NUR ---
DR RODRÍGUEZ GAVE ORDER FOR 0.25 MG XANAX ONE TIME FOR PTS ANXIETY. [facility], [facility], NOTIFIED.
[2019-05-30] MEDS ORDERED: ALPRAZolam 0.25 MG (XANAX) TAB PO ONE (21:45)
[2019-05-30] MEDS: inSUlin ASPART (NovoLOG) 1 UNIT/0.01 ML (CHARGE PER UNIT) SC SCH (21:46)
[2019-05-31 00:30] VITALS: BP 126/66
[2019-05-31] MEDS: morphine INJ 4 MG/ML 1 ML (VIAL/SYRINGE) IV PRN (01:49)
[2019-05-31] MEDS: ENOXAPARIN 300 MG/3 ML (LOVENOX) MULTI-DOSE VIAL SQ SCH (02:56)
[2019-05-31 04:00] VITALS: BP 129/83
[2019-05-31] MEDS: NITROGLYCERIN 0.4 MG SL TABS BTL 25'S SL PRN ×2 (04:49→05:01)
--- NOTE | 2019-05-31 05:10 | NUR ---
PT C/O CHEST PAIN. HE REPORTED THAT MORPHINE IS GIVING HIM REBOUND HEADACHES AND NITRO THAT WAS ADMIN THIS AM WAS NOT EFFECTIVE. PT DID REPORT THAT THE XANAX HE HAD EARLIER IN THE SHIFT HAD MADE CHEST PAIN GO AWAY. DR RESTREPO WHO IS OBSERVER HELPER FOR DR RODRÍGUEZ WAS CONTACTED BY THIS RN AND HE GAVE ANOTHER ONE TIME ORDER OF 0.25 MG OF XANAX. PT REPORTED THAT AFTER APPROX 0545 HIS CHEST PAIN DID GO AWAY HE FELT MUCH BETTER.
[2019-05-31] MEDS ORDERED: ALPRAZolam 0.25 MG (XANAX) TAB PO ONE (05:15)
[2019-05-31 05:21] LABS: HEMOGLOBIN 14.2 G/DL (13.3-17.7); MEAN PLATELET VOLUME 12.1 FL (7.4-10.4); RED CELL DISTRIBUTION WIDTH 13.5 % (10.0-14.5); WHITE BLOOD COUNT 6.9 10^3/uL (4.3-11.0)
[2019-05-31 05:42] LABS: BUN/CREATININE RATIO 20; CALCIUM 9.4 MG/DL (8.5-10.1); CARBON DIOXIDE 24 MMOL/L (21-32); CHLORIDE 104 MMOL/L (98-107); CHOLESTEROL 157 MG/DL (< 200); GFR ESTIMATED 31; GLUCOSE 176 MG/DL (70-105); HDL CHOLESTEROL 28 MG/DL (40-60); POTASSIUM 4.1 MMOL/L (3.6-5.0); SODIUM 143 MMOL/L (135-145); TRIGLYCERIDES 500 MG/DL (<150); VLDL CHOLESTEROL 100 MG/DL (5-40)
[2019-05-31] MEDS: inSUlin ASPART (NovoLOG) 1 UNIT/0.01 ML (CHARGE PER UNIT) SC SCH (06:00)
[2019-05-31] MEDS ORDERED: inSUlin ASPART (NovoLOG) 1 UNIT/0.01 ML (CHARGE PER UNIT) SC SCH (06:00)
[2019-05-31] MEDS ORDERED: INSULIN LISPRO SQ SCH (06:00)
[2019-05-31 08:00] VITALS: BP 135/90
[2019-05-31] MEDS ORDERED: MAGNESIUM OXIDE (MAG-OX)400 MG TAB PO SCH (08:30)
--- NOTE | 2019-05-31 08:38 | Cardiology Progress Note ---
Subjective Date Seen by Provider: May 31, 2019 Time Seen by Provider: 08:36 Subjective/Events-last exam Patient sitting up in chair, denies any further episode of chest pain. Review of Systems General: No Chills, No Night Sweats, No Fatigue, No Malaise, No Appetite, No Other HEENT: No Head Aches, No Visual Changes, No Eye Pain, No Ear Pain, No Dysphasia, No Sinus Congestion, No Post Nasal Drip, No Sore Throat, No Other Pulmonary: No Dyspnea, No Cough, No Pleuritic Chest Pain, No Other Cardiovascular: No: Chest Pain, Palpitations, Orthopnea, Paroxysmal Noc. Dyspnea, Edema, Lt Headedness, Other Objective-Cardiology Exam Last Set of Vital Signs Vital Signs 05/31/19 08:00 Temp 35.6 Pulse 74 Resp 16 B/P (MAP) 135/90 (105) Pulse Ox 93 O2 Delivery Room Air Capillary Refill : Less Than 3 SecondsLess Than 3 Seconds I&O Intake and Output 05/31/19 00:00 Intake Total 1330 ml Output Total 300 ml Balance 1030 ml Intake Oral 830 ml IV Total 500 ml Output Urine Total 300 ml # Voids 2 Daily Weight Change No No General: Alert, Oriented X3, Cooperative, No Acute Distress HEENT: Atraumatic, PERRLA Neck: Supple, No JVD Lungs: Clear to Auscultation, Normal Air Movement Heart: Regular Rate, Normal S1, Normal S2, No Murmurs Abdomen: Normal Bowel Sounds, Soft, No Tenderness, No Hepatosplenomegaly, No Masses Extremities: No Clubbing, No Cyanosis, No Edema, Normal Pulses, No Tenderness/Swelling Skin: No Rashes, No Breakdown, No Significant Lesion Neuro: Normal Gait, Normal Speech, Strength at 5/5 X4 Ext, Normal Tone, Sensation Intact Psych/Mental Status: Mental Status NL, Mood NL Results Lab Laboratory Tests 05/31/19 04:12 A/P-Cardiology Admission Diagnosis Chest pain Coronary artery disease Hypertension Hyperlipidemia Assessment/Plan Chest pain resembling angina, EKG did not show any acute changes, troponin is negative. Could not tolerate nitroglycerin due to hypotension. Denies any further episode of chest pain. Pain likely d/t known small vessel disease. Coronary artery disease, non-ST elevation cardiac infarction occurred recently, had severe stenosis at the right coronary artery with successful deployment of Maday 4 x 23 mm stent expanded to 4.5 mm with excellent results. The distal right PDA is occluded, small vessel disease, circumflex has severe diffuse disease, underwent stenting on May 03, 2019 in [facility], I do not have the report in addition he had [id number] ectasia in the LAD, mild to moderate diffuse disease, went to [facility] late in April 2019 and had another stent to the LAD, was doing well until early this morning. Planning to discharge home Sinus tachycardia, better, continue to monitor. Hypertension, was borderline hypotensive in the emergency room, received IV fluid, blood pressure is better. Continue to monitor Hyperlipidemia, continue on current medication. Hypomagnesemia- replace, monitor. Acute on chronic renal insufficiency- continue to monitor renal function. Diabetes mellitus, followed and managed by primary care physician COPD/obstructive sleep apnea Obesity, BMI 37 Multiple back surgeries, recent knee surgery Patient was seen and evaluated with Zena, examination performed, management plan was discussed, agree with the current scribed note, I made few changes to the note using Italic font Patient denied any further episode of chest pain, no acute EKG abnormality, chronic enzymes are negative Reporting improvement after receiving Xanax Lungs were clear to auscultation, heart is regular I reassured him, continue on conservative management and will discharge, monitor blood pressure lipids as an outpatient Clinical Quality Measures AMI/AHF: ASA po Prior to arrival: Yes DVT/VTE Risk/Contraindication: Risk Factor Score Per Nursin RFS Level Per Nursing on Admit: 3=High ZENA CHRISTINA May 31, 2019 08:38 ROSS RODRÍGUEZ MD May 31, 2019 09:51
[2019-05-31] MEDS ORDERED: MAGN400T6 PO (08:42)
[2019-05-31] MEDS ORDERED: ASPIRIN E.C. 81 MG (ECOTRIN) TAB PO SCH (09:00)
[2019-05-31] MEDS ORDERED: ISOSORBIDE MONONITRATE 30 MG (IMDUR) TAB PO SCH (09:00)
[2019-05-31] MEDS ORDERED: lisINopril 20 MG (PRINIVIL) TABLET PO SCH (09:00)
[2019-05-31] MEDS ORDERED: FUROSEMIDE 40 MG (LASIX) TAB PO SCH (09:00)
[2019-05-31] MEDS: meTOprolol TARTRATE 50 MG (LOPRESSOR) TAB PO SCH (09:14)
[2019-05-31] MEDS: TICAGRELOR 90 MG TABLET (BRILINTA) PO SCH (09:15)
[2019-05-31] MEDS: PANTOPRAZOLE 40 MG (PROTONIX) VIAL IV SCH (09:15)
--- NOTE | 2019-05-31 09:51 | Clinic Account Progress/Dx ---
Clinic Account Progress/Dx DIAGNOSIS: Date Seen by Provider: May 31, 2019 Time Seen by Provider: 09:51 Chest pain Coronary artery disease Hypertension Hyperlipidemia ROSS RODRÍGUEZ MD May 31, 2019 09:51
[2019-05-31 11:15] VITALS: BP 135/90
[2019-05-31] MEDS ORDERED: INSULIN GLARGINE HUM REC ANLOG SC SCH (18:00)
[2019-05-31] MEDS ORDERED: [UNRECOGNIZED DRUG - OTHER] SC SCH (18:00)
== END 2019-05-31 11:15 | disposition home or self-care (01) ==
LOC: EDUNIT# 09:00 → ER 09:01 → 4TH 12:46
PROVIDERS: ADMIT Internal Medicine Cardiovascular Disease; ATTEND Internal Medicine Cardiovascular Disease
DX: I25.10 Atherosclerotic heart disease of native coronary artery without angina pectoris (principal); G47.30 Sleep apnea, unspecified; J44.9 Chronic obstructive pulmonary disease, unspecified; I10 Essential (primary) hypertension; G43.909 Migraine, unspecified, not intractable, without status migrainosus; M54.9 Dorsalgia, unspecified; E78.00 Pure hypercholesterolemia, unspecified; E11.40 Type 2 diabetes mellitus with diabetic neuropathy, unspecified; E78.5 Hyperlipidemia, unspecified; E66.9 Obesity, unspecified; G89.29 Other chronic pain; M10.9 Gout, unspecified; M06.9 Rheumatoid arthritis, unspecified; M79.7 Fibromyalgia; F32.9 Major depressive disorder, single episode, unspecified; F17.200 Nicotine dependence, unspecified, uncomplicated; F41.9 Anxiety disorder, unspecified; Z79.891 Long term (current) use of opiate analgesic; Z79.82 Long term (current) use of aspirin; Z79.4 Long term (current) use of insulin; Z68.37 Body mass index [BMI] 37.0-37.9, adult; Z90.89 Acquired absence of other organs; Z80.0 Family history of malignant neoplasm of digestive organs; Z80.6 Family history of leukemia; Z82.3 Family history of stroke
CPT/HCPCS: 36415; 71045; 80048; 80053; 80061; 83690; 83735; 83874; 83880; 84484; 85025; 85027; 85379; 85610; 85730; 93005; 93041; 96374; 96375; 96376; G0378

== ENCOUNTER 2019-06-08 08:16 | Observation (INO) | payer MEDICARE, OTHER ==
[2019-06-08] VITALS (8 sets, daily range): BP systolic 121–154; BP diastolic 65–101
[~2019-06-08] VITALS: Ht 180 cm; Wt 124.1 kg
[~2019-06-08 08:16] MED LIST changes: +CARV6.252 PO; +FURO40TA4 PO; +MAGN400T8 PO; +METF500T19 PO; -METF500T8 PO; +OMEP40CA27 PO; -OMEP40CA36 PO; +PANT40TA3 PO
--- NOTE | 2019-06-08 08:20 | NUR ---
PT DENIES CHANGES IN MEDS
[2019-06-08 08:45] LABS: BASOPHILS % (AUTO) 0 % (0-10); EOSINOPHILS # (AUTO) 0.5 10^3/uL (0.0-0.3); EOSINOPHILS % (AUTO) 4 % (0-10); HEMATOCRIT 42 % (40-54); HEMOGLOBIN 14.7 G/DL (13.3-17.7); LYMPHOCYTES # (AUTO) 1.7 X 10^3 (1.0-4.0); LYMPHOCYTES % (AUTO) 14 % (12-44); MEAN CORPUSCULAR HEMOGLOBIN 31 PG (25-34); MEAN CORPUSCULAR HGB CONC 35 G/DL (32-36); MEAN CORPUSCULAR VOLUME 90 FL (80-99); MEAN PLATELET VOLUME 11.7 FL (7.4-10.4); MONOCYTES # (AUTO) 1.5 X 10^3 (0.0-1.0); MONOCYTES % (AUTO) 13 % (0-12); NEUTROPHILS % (AUTO) 69 % (42-75); PLATELET COUNT 163 10^3/uL (130-400); RED CELL DISTRIBUTION WIDTH 13.2 % (10.0-14.5); WHITE BLOOD COUNT 11.7 10^3/uL (4.3-11.0)
[2019-06-08] MEDS ORDERED: ASPIRIN 81 MG CHEW (CHILDREN'S ASA) PO ONE (08:45)
[2019-06-08 08:59] LABS: PROTHROMBIN TIME PATIENT 13.5 SEC (12.2-14.7)
[2019-06-08 09:09] LABS: ALBUMIN 4.2 GM/DL (3.2-4.5); BILIRUBIN,TOTAL 0.6 MG/DL (0.1-1.0); CALCIUM 9.7 MG/DL (8.5-10.1); CREATININE SERUM 1.68 MG/DL (0.60-1.30); MAGNESIUM 1.7 MG/DL (1.6-2.4); POTASSIUM 4.2 MMOL/L (3.6-5.0); TOTAL PROTEIN 7.4 GM/DL (6.4-8.2)
[2019-06-08] MEDS ORDERED: FAMOTIDINE 20MG/2ML IV (PEPCID) IV STA (09:20)
[2019-06-08] MEDS ORDERED: morphine INJ 10 MG/ML 1ML (SYR OR VIAL) IVP ONE (09:30)
[2019-06-08] MEDS ORDERED: LIDOCAINE 2% VISCOUS 15 ML UDC PO ONE (09:30)
[2019-06-08] MEDS ORDERED: ANTACID SUSP 30 ML UDC (MYLANTA) PO ONE (09:30)
--- NOTE | 2019-06-08 09:53 | Diagnostic Imaging Report ---
EXAMINATION: Chest radiograph, portable AP view. DATE: 06/08/2019 9:14 AM. INDICATION: 53-year-old male, chest pain. COMPARISON: May 30, 2019. FINDINGS: The heart size and mediastinal contours are unremarkable. There is no identified pneumothorax. There is no large pleural effusion. There is no identified focal airspace consolidation. There is cervical spine hardware noted. There are technical limitations of the exam relating to patient body habitus and difficulties with exposure. IMPRESSION: No identified acute cardiopulmonary abnormality. Dictated by: Dictated on workstation # [id number]
[2019-06-08] MEDS ORDERED: PANTOPRAZOLE 40 MG (PROTONIX) VIAL IV ONE (10:00)
[2019-06-08] MEDS ORDERED: LORazepam INJ 2 MG/ML (ATIVAN) VIAL IVP ONE (11:00)
--- NOTE | 2019-06-08 11:24 | ED Chest Pain ---
General Chief Complaint: Chest Pain Stated Complaint: CHEST PAIN;NAUSEA Nursing Triage Note: PT ARRIVED PER W/C FROM CARDIAC REHAB W CO OF CHEST PAIN OF 5/10. STATES STARTED THIS AM. HAS BEEN HAVING AT TIMES WORSE TODAY. PT HAS HAD 2 NITRO 0.4MG SL IN CARDIAC REHAB Nursing Sepsis Screen: No Definite Risk Source: patient Exam Limitations: no limitations History of Present Illness Date Seen by Provider: Jun 08, 2019 Time Seen by Provider: 09:20 Initial Comments Here with acute onset of central chest pain that started about 15 minutes prior to arrival while at cardiac rehabilitation. Did take nitroglycerin 2 and that only gave him a headache but did not change his pain. States it's in the center of his chest and a little bit to the right sided. Sharp and achy. He's had multiple episodes of similar chest pain. States today it's a little different in that it does not go all or to his back. Has had recent heart catheter with stent placement 3 over the last few months and had recent hospitalization for a very similar presentation a week ago. Follows with Dr. Gonsalez and Dr. Núñez. Timing/Duration: 1/2 hour Severity/Quality: moderate, severe, sharp Location: central Radiation: no radiation Activities at Onset: none Prior CP/Workup: cardiac cath, echocardiography Modifying Factors: worse with exercise; improves with rest ASA po PLAY THERAPIST: Yes NTG SL PLAY THERAPIST: Yes Associated Symptoms: No abdominal pain, No edema, No shortness of breath, No weakness Allergies and Home Medications Allergies Coded Allergies: No Known Drug Allergies (Unverified , 11/21/18) Home Medications Albuterol Sulfate 1 Puff Puff, 2 PUFF IH Q4H PRN for SHORTNESS OF BREATH, (Reported) 1 PUFF = 90 MCG Allopurinol 300 Mg Tablet, 300 MG PO DAILY, (Reported) Ascorbic Acid 500 Mg Tablet, 1,000 MG PO DAILY, (Reported) Aspirin 81 Mg Tablet.dr, 81 MG PO DAILY, (Reported) Baclofen 10 Mg Tablet, 10 MG PO TID PRN for SPASMS, (Reported) Carvedilol 6.25 Mg Tablet, 6.25 MG PO BID, (Reported) Cholecalciferol (Vitamin D3) 5,000 Unit Capsule, 5,000 UNIT PO DAILY, (Reported) Diclofenac Sodium 100 Gm Gel..gram., 2 GM TOP QID PRN for SHOULDER PAIN, (Reported) Fenofibrate,Micronized 134 Mg Capsule, 134 MG PO HS, (Reported) Fluticasone Propion/Salmeterol 1 Each Blst.w.dev, 1 PUFF INH BID PRN for SHORTNESS OF BREATH, (Reported) Furosemide 40 Mg Tablet, 40 MG PO DAILY, (Reported) Gabapentin 300 Mg Capsule, 1,500 MG PO HS, (Reported) TAKES 5 (300MG) CAPSULES Gabapentin 300 Mg Capsule, 300 MG PO DAILY, (Reported) Hydrocodone/Acetaminophen 1 Each Tablet, 1 TAB PO Q6H PRN for PAIN-MODERATE (5- 7), (Reported) Insulin Glargine,Hum.rec.anlog 300 Unit/1 Ml Insuln.pen, 140 UNITS SC 1800, (Reported) Insulin Lispro 100 Unit/1 Ml Insuln.pen, 52 UNIT SQ TIDAC, (Reported) Isosorbide Mononitrate 30 Mg Tab.er.24h, 30 MG PO DAILY, (Reported) Lisinopril 20 Mg Tablet, 20 MG PO DAILY, (Reported) Magnesium Oxide 400 Mg Tablet, 400 MG PO BIDPC Prescribed by: ZENA KUHN on 05/31/19 0842 Metformin HCl 500 Mg Tab.er.24h, 500 MG PO DAILY, (Reported) Metoprolol Tartrate 50 Mg Tablet, 50 MG PO BID, (Reported) Montelukast Sodium 10 Mg Tablet, 10 MG PO HS, (Reported) [place]-3 Acid Ethyl Esters 1 Gm Capsule, 2 GM PO BID, (Reported) TAKES 2 (1GM) CAPSULES Pantoprazole Sodium 40 Mg Tablet.dr, 40 MG PO DAILY, (Reported) Pediatric Multivit Comb No.136 1 Each Tab.chew, 2 TAB.CHEW PO DAILY, (Reported) Pitavastatin Calcium 4 Mg Tablet, 4 MG PO HS, (Reported) Prasugrel HCl 10 Mg Tablet, 10 MG PO DAILY, (Reported) Promethazine HCl 25 Mg Tablet, 25 MG PO Q6H PRN for NAUSEA/VOMITING-2ND LINE, (Reported) Ubidecarenone 100 Mg Capsule, 100 MG PO DAILY, (Reported) TAKES ALONG WITH 200MG CAPSULE FOR A TOTAL DAILY DOSE OF 300MG Ubidecarenone 200 Mg Capsule, 200 MG PO DAILY, (Reported) TAKEA ALONG WITH 100MG CAPSULE FOR A TOTAL DAILY DOSE OF 300MG Patient Home Medication List Home Medication List Reviewed: Yes Review of Systems Review of Systems Constitutional: see HPI; No chills, No fever EENTM: No Symptoms Reported Respiratory: Denies Cough, Denies Shortness of Air Cardiovascular: Chest Pain; Denies Edema, Denies Lightheadedness Gastrointestinal: Nausea; Denies Vomiting Genitourinary: No Symptoms Reported Musculoskeletal: no symptoms reported Psychiatric/Neurological: Anxiety; Denies Headache All Other Systems Reviewed Negative Unless Noted: Yes Past Nunecbi-Sfouqe-Tdhzza Hx Past Med/Social Hx: Reviewed Nursing Past Med/Soc Hx Patient Social History Alcohol Use: Rarely Uses Number of Drinks Today: AA Alcohol Beverage of Choice: Beer Recreational Drug Use: No Type Used: Smokeless Tobacco 2nd Hand Smoke Exposure: No Recent Foreign Travel: No Contact w/Someone Who Travel: No Recent Infectious Disease Expo: No Recent Hopitalizations: Yes Physical Abuse: No Sexual Abuse: No Immunizations Up To Date Tetanus Booster (TDap): Unknown PED Vaccines UTD: No Date of Pneumonia Vaccine: May 30, 2016 Date of Influenza Vaccine: Mar 09, 2019 Seasonal Allergies Seasonal Allergies: Yes Past Medical History Surgeries: Yes Abdominal, Adenoidectomy, Appendectomy, Coronary Stent, Gallbladder, Orthopedic, Tonsillectomy Respiratory: Yes Pneumonia Currently Using CPAP: No Currently Using BIPAP: Yes Cardiac: Yes Chronic Edema/Swelling, Coronary Artery Disease, High Cholesterol, Hypertension Neurological: Yes Headaches /Migraines, Neuropathy Reproductive Disorders: No Sexually Transmitted Disease: No HIV/AIDS: No Genitourinary: No Kidney Stones, Renal Failure Gastrointestinal: Yes Gastroesophageal Reflux Musculoskeletal: Yes Arthritis, Chronic Back Pain Endocrine: Yes Diabetes, Insulin dep HEENT: No Tonsilitis Loss of Vision: Bilateral Hearing Impairment: Denies Cancer: No Psychosocial: No Anxiety, Depression Integumentary: No Blood Disorders: No Adverse Reaction/Blood Tranf: No Family Medical History Reviewed Nursing Family Hx Abdominal aortic aneurysm 09 BROTHER Cancer 03 MOTHER Cancer of colon 03 MOTHER 09 SISTER 19 MOTHER FH: COPD (chronic obstructive pulmonary disease) 19 FATHER FH: leukemia 09 SISTER 19 MOTHER FHx: stroke 19 FATHER Family history: Diabetes mellitus 09 BROTHER 09 SISTER 09 SISTER 09 SISTER Family history: Gastrointestinal disease 03 MOTHER 09 BROTHER Physical Exam Vital Signs Vital Signs - First Documented 06/08/19 08:20 Temp 36.6 Pulse 101 Resp 18 B/P (MAP) 132/89 (103) Pulse Ox 94 O2 Delivery Room Air Capillary Refill : Less Than 3 Seconds Height, Weight, BMI Height: 5'11.00" Weight: 260lbs. 8.0oz. 117.072743cu; 37.00 BMI Method:Stated General Appearance: WD/WN, Anxious, Mild Distress HEENT: PERRL/EOMI, Pharynx Normal Neck: Non Tender, Supple Respiratory: Lungs Clear, Normal Breath Sounds Cardiovascular: Regular Rate, Rhythm, No Murmur Gastrointestinal: Non Tender, Soft Extremity: Normal Range of Motion, Non Tender Neurologic/Psychiatric: Alert, Oriented x3 Skin: Normal Color, Warm/Dry Progress/Results/Core Measures Results/Orders Lab Results Laboratory Tests Test 06/08/19 08:35 Range/Units White Blood Count 11.7 H 4.3-11.0 10^3/uL Red Blood Count 4.70 4.35-5.85 10^6/uL Hemoglobin 14.7 13.3-17.7 G/DL Hematocrit 42 40-54 % Mean Corpuscular Volume 90 80-99 FL Mean Corpuscular Hemoglobin 31 25-34 PG Mean Corpuscular Hemoglobin Concent 35 32-36 G/DL Red Cell Distribution Width 13.2 10.0-14.5 % Platelet Count 163 130-400 10^3/uL Mean Platelet Volume 11.7 H 7.4-10.4 FL Neutrophils (%) (Auto) 69 42-75 % Lymphocytes (%) (Auto) 14 12-44 % Monocytes (%) (Auto) 13 H 0-12 % Eosinophils (%) (Auto) 4 0-10 % Basophils (%) (Auto) 0 0-10 % Neutrophils # (Auto) 8.0 H 1.8-7.8 X 10^3 Lymphocytes # (Auto) 1.7 1.0-4.0 X 10^3 Monocytes # (Auto) 1.5 H 0.0-1.0 X 10^3 Eosinophils # (Auto) 0.5 H 0.0-0.3 10^3/uL Basophils # (Auto) 0.0 0.0-0.1 10^3/uL Prothrombin Time 13.5 12.2-14.7 SEC INR Comment 1.0 0.8-1.4 Activated Partial Thromboplast Time 29 24-35 SEC Sodium Level 138 135-145 MMOL/L Potassium Level 4.2 3.6-5.0 MMOL/L Chloride Level 104 98-107 MMOL/L Carbon Dioxide Level 24 21-32 MMOL/L Anion Gap 10 5-14 MMOL/L Blood Urea Nitrogen 35 H 7-18 MG/DL Creatinine 1.68 H 0.60-1.30 MG/DL Estimat Glomerular Filtration Rate 43 BUN/Creatinine Ratio 21 Glucose Level 265 H 70-105 MG/DL Calcium Level 9.7 8.5-10.1 MG/DL Corrected Calcium 9.5 8.5-10.1 MG/DL Magnesium Level 1.7 1.6-2.4 MG/DL Total Bilirubin 0.6 0.1-1.0 MG/DL Aspartate Amino Transf (AST/SGOT) 29 5-34 U/L Alanine Aminotransferase (ALT/SGPT) 46 0-55 U/L Alkaline Phosphatase 66 40-136 U/L Myoglobin 143.1 H 10.0-92.0 NG/ML Troponin I < 0.028 <0.028 NG/ML B-Type Natriuretic Peptide < 10.0 <100.0 PG/ML Total Protein 7.4 6.4-8.2 GM/DL Albumin 4.2 3.2-4.5 GM/DL My Orders Orders - MAINE WONG MD Cbc With Automated Diff (06/08/19 08:32) Magnesium (06/08/19 08:32) Chest 1 View, Ap/Pa Only (06/08/19 08:32) Ekg Tracing (06/08/19 08:32) Comprehensive Metabolic Panel (06/08/19 08:32) Myoglobin Serum (06/08/19 08:32) Protime With Inr (06/08/19 08:32) Partial Thromboplastin Time (06/08/19 08:32) O2 (06/08/19 08:32) Monitor-Rhythm Ecg Trace Only (06/08/19 08:32) Lipid Panel (06/09/19 06:00) Ed Iv/Invasive Line Start (06/08/19 08:32) Troponin I (06/08/19 08:32) Aspirin Chewable Tablet (Baby Aspirin Ch (06/08/19 08:45) Lidocaine 2% Viscous 15 Ml (Xylocaine Vi (06/08/19 09:30) Antacid Suspension (Mylanta Suspension (06/08/19 09:30) Famotidine Injection (Pepcid Injection) (06/08/19 09:20) Morphine Injection (Morphine Injection (06/08/19 09:30) Pantoprazole Injection (Protonix Injecti (06/08/19 10:00) Lorazepam Injection (Ativan Injection) (06/08/19 11:00) BNP (06/08/19 11:13) Medications Given in ED Current Medications Medications Dose Ordered Sig/Lamin Route Start Time Stop Time Status Last Admin Dose Admin Al Hydrox/Mg Hydrox/Simethicone 30 ml ONCE ONCE PO 06/08/19 09:30 06/08/19 09:31 DC 06/08/19 09:31 30 ML Aspirin 324 mg ONCE ONCE PO 06/08/19 08:45 06/08/19 08:46 DC 06/08/19 08:40 243 MG Lidocaine HCl 15 ml ONCE ONCE PO 06/08/19 09:30 06/08/19 09:31 DC 06/08/19 09:31 15 ML Lorazepam 0.5 mg ONCE ONCE IVP 06/08/19 11:00 06/08/19 11:01 DC 06/08/19 11:04 0.5 MG Morphine Sulfate 4 mg ONCE ONCE IVP 06/08/19 09:30 06/08/19 09:31 DC 06/08/19 09:31 4 MG Pantoprazole 40 mg ONCE ONCE IV 06/08/19 10:00 06/08/19 10:01 DC 06/08/19 10:22 40 MG Vital Signs/I&O 06/08/19 06/08/19 08:20 08:20 Temp 36.6 Pulse 101 Resp 18 B/P (MAP) 132/89 (103) Pulse Ox 94 O2 Delivery Room Air Room Air Blood Pressure Mean: 103 Progress Progress Note : Progress Note Seen and evaluated. Chest pain protocol was initiated. ASA 243 mg by mouth given as he had a baby aspirin this morning. His artery tried nitroglycerin. Morphine 4 mg IV ordered. We will do GI cocktail and Pepcid IV as well as the chest pain order set. Monitor patient. 0957: I discussed the case with Dr. Núñez and he accepts patient for admission, observation status and will see him later today. Patient will better after morphine earlier. When the 1105: Pending admission. Alan martinez had episode of shortness of breath. Ativan 0.5 mg IV given. He also had Protonix 40 mg IV ordered. Does have history of hiatal hernia and Gray fundoplication. He has not had any findings of significance related to the heart per cardiology. He has recently been started on Protonix and we will continue that. Question possibility of ulcer or esophageal irritation and spasms. Did discuss with the patient and he would benefit from further workup including with surgical evaluation for upper endoscopy and he will pursue that outpatient. I will send a copy a note to Dr. Gonsalez as well and I have talked with her regarding my concerns. Patient will follow up with her for further evaluation as well but we will go ahead and admit to Dr. Núñez at this point. Patient and family agree to plan. 1245: I rediscussed the case with Dr. Núñez. Given that he's had multiple admissions for the same and there is concerns that this may be something else other than cardiac-related, further workup to evaluate other possible causes is indicated. He requested that I still discussed with Dr. Gonsalez for admission with him on consult and this was done. She is asked that I consult Dr. Pineda and Dr. Armstrong as well and that has been done. Patient does have history of hiatal hernia and reflux esophagitis and has had Gray fundoplication. He may be having some esophageal dysfunction and/or acid issues and this may be related to other causes as well. Also noted that he had fairly significant sleep apnea when resting during the ER evaluation. He did receive 0.5 of Ativan for anxiety earlier and was noted to have O2 sats in the low 80s when resting or sleeping. He reportedly has sleep apnea and may be on CPAP but this should be reevaluated as well. This was discussed with Dr. Pineda as well. Continue with admission. Admitted to Dr. Gonsalez with others on consult. All agree. Initial ECG Impression Date: Jun 08, 2019 Initial ECG Impression Time: 08:21 Initial ECG Rate: 99 Initial ECG Rhythm: Normal Sinus Comment Sinus rhythm with normal axis. No evidence of ST elevation PA. Similar to previous of 05/31/19. Interpreted by me. Diagnostic Imaging Diagonstic Imaging: Xray Plain Films/CT/US/NM/MRI: chest Comments [facility], [place] NAME: LUCI MCMULLEN [facility] REC#: [id number] PT STATUS: REG ER : 1965 PHYSICIAN: MAINE WONG MD ADMIT DATE: 06/08/19/ER Draft Date of Exam:06/08/19 CHEST 1 VIEW, AP/PA ONLY EXAMINATION: Chest radiograph, portable AP view. DATE: 06/08/2019 9:14 AM. INDICATION: 53-year-old male, chest pain. COMPARISON: May 30, 2019. FINDINGS: The heart size and mediastinal contours are unremarkable. There is no identified pneumothorax. There is no large pleural effusion. There is no identified focal airspace consolidation. There is cervical spine hardware noted. There are technical limitations of the exam relating to patient body habitus and difficulties with exposure. IMPRESSION: No identified acute cardiopulmonary abnormality. Dictated on workstation # [id number] Dict: 06/08/19 0946 Trans: 06/08/19 0953 [id number] Interpreted by: OBDULIO ORO MD Electronically signed by: Departure Communication (Admissions) Time/Spoke to Admitting Phy: 09:57 Time/Spoke to Consulting Phy: 12:40 Impression Primary Impression: Chest pain Qualified Codes: R07.9 - Chest pain, unspecified Disposition: ADMITTED INPATIENT Condition: Stable Admissions Decision to Admit Reason: Admit from ER (General) Decision to Admit/Date: Jun 08, 2019 Time/Decision to Admit Time: 09:57 Departure-Patient Inst. Referrals: IRINEO GONSALEZ DO (PCP/Family) Primary Care Physician Copy Copies To 1: IRINEO GONSALEZ DO Copies To 2: ROSS NÚÑEZ MD, TIMOTHY D MD Jun 08, 2019 11:23
--- NOTE | 2019-06-08 12:16 | NUR ---
PT STATES HAS SLEEP APNEA BUT ONLY WEARS DEVICE ABOUT 5MIN PER NITE AND DOES NOT USE VERY OFTEN
--- NOTE | 2019-06-08 13:43 | NUR ---
THIS NURSE NOTIFIED DR CONDE PT HAS DIET ORDER. ORDER GIVEN BY DR CONDE TO KEEP PT NPO FOR POSSIBLE EGD.
[2019-06-08] MEDS ORDERED: MAGN400T39 PO (14:23)
--- NOTE | 2019-06-08 14:26 | Pulmonary Consultation ---
History of Present Illness History of Present Illness Date Seen by Provider: Jun 08, 2019 Time Seen by Provider: 14:19 Date of Admission History of Present Illness 53yo pt presented to ED secondary to worsening midsternal CP 5/10 radiating to right chest that started this AM while at cardiac rehab. Pt took nitro x 2 which did not improve CP. He has had multiple previous episodes. Pt did have recent heart cath and 3 stents were placed. I am consulted for pulmonary management. Allergies and Home Medications Allergies Coded Allergies: No Known Drug Allergies (Unverified , 11/21/18) Home Medications Albuterol Sulfate 1 Puff Puff, 2 PUFF IH Q4H PRN for SHORTNESS OF BREATH, (Reported) 1 PUFF = 90 MCG Allopurinol 300 Mg Tablet, 300 MG PO DAILY, (Reported) Ascorbic Acid 500 Mg Tablet, 500 MG PO BID, (Reported) Aspirin 81 Mg Tablet.dr, 81 MG PO DAILY, (Reported) Baclofen 10 Mg Tablet, 10 MG PO TID PRN for SPASMS, (Reported) Carvedilol 6.25 Mg Tablet, 6.25 MG PO BID, (Reported) Cholecalciferol (Vitamin D3) 5,000 Unit Capsule, 5,000 UNIT PO DAILY, (Reported) Diclofenac Sodium 100 Gm Gel..gram., 2 GM TOP QID PRN for SHOULDER PAIN, (R eported) Fenofibrate,Micronized 134 Mg Capsule, 134 MG PO HS, (Reported) Fluticasone Propion/Salmeterol 1 Each Blst.w.dev, 1 PUFF INH BID PRN for S HORTNESS OF BREATH, (Reported) Furosemide 40 Mg Tablet, 40 MG PO DAILY, (Reported) Gabapentin 300 Mg Capsule, 1,500 MG PO HS, (Reported) TAKES 5 (300MG) CAPSULES Gabapentin 300 Mg Capsule, 300 MG PO DAILY, (Reported) Hydrocodone/Acetaminophen 1 Each Tablet, 1 TAB PO Q6H PRN for PAIN-MODERATE (5- 7), (Reported) Insulin Glargine,Hum.rec.anlog 300 Unit/1 Ml Insuln.pen, 160 UNITS SC 1800, (Reported) Insulin Lispro 100 Unit/1 Ml Insuln.pen, 60 UNIT SQ TIDAC, (Reported) Isosorbide Mononitrate 30 Mg Tab.er.24h, 30 MG PO DAILY, (Reported) Lisinopril 20 Mg Tablet, 20 MG PO DAILY, (Reported) Magnesium Oxide 400 Mg Tablet, 400 MG PO BIDPC, (Reported) Metformin HCl 500 Mg Tab.er.24h, 500 MG PO DAILY, (Reported) Montelukast Sodium 10 Mg Tablet, 10 MG PO HS, (Reported) [place]-3 Acid Ethyl Esters 1 Gm Capsule, 2 GM PO BID, (Reported) TAKES 2 (1GM) CAPSULES Pantoprazole Sodium 40 Mg Tablet.dr, 40 MG PO DAILY, (Reported) Pediatric Multivit Comb No.136 1 Each Tab.chew, 2 TAB.CHEW PO DAILY, (Reported) Pitavastatin Calcium 4 Mg Tablet, 4 MG PO HS, (Reported) Prasugrel HCl 10 Mg Tablet, 10 MG PO DAILY, (Reported) Promethazine HCl 25 Mg Tablet, 25 MG PO Q6H PRN for NAUSEA/VOMITING-2ND LINE, (Reported) Ubidecarenone 100 Mg Capsule, 100 MG PO DAILY, (Reported) TAKES ALONG WITH 200MG CAPSULE FOR A TOTAL DAILY DOSE OF 300MG Ubidecarenone 200 Mg Capsule, 200 MG PO DAILY, (Reported) TAKEA ALONG WITH 100MG CAPSULE FOR A TOTAL DAILY DOSE OF 300MG Past Nqhkgol-Lcljec-Ysgfli Hx Past Med/Social Hx: Reviewed Nursing Past Med/Soc Hx Patient Social History Alcohol Use: Rarely Uses Number of Drinks Today: AA Alcohol Beverage of Choice: Beer Recreational Drug Use: No Type Used: Smokeless Tobacco 2nd Hand Smoke Exposure: No Recent Foreign Travel: No Contact w/Someone Who Travel: No Recent Infectious Disease Expo: No Recent Hopitalizations: Yes Physical Abuse: No Sexual Abuse: No Immunizations Up To Date Tetanus Booster (TDap): Unknown PED Vaccines UTD: No Date of Pneumonia Vaccine: Apr 25, 2019 Date of Influenza Vaccine: Apr 26, 2019 Seasonal Allergies Seasonal Allergies: Yes Past Medical History Surgeries: Yes Abdominal, Adenoidectomy, Appendectomy, Coronary Stent, Gallbladder, Orthopedic, Tonsillectomy Respiratory: Yes Pneumonia Currently Using CPAP: No Currently Using BIPAP: Yes Cardiac: Yes Chronic Edema/Swelling, Coronary Artery Disease, High Cholesterol, Hypertension Neurological: Yes Headaches /Migraines, Neuropathy Reproductive Disorders: No Sexually Transmitted Disease: No HIV/AIDS: No Genitourinary: No Kidney Stones, Renal Failure Gastrointestinal: Yes Gastroesophageal Reflux Musculoskeletal: Yes Arthritis, Chronic Back Pain Endocrine: Yes Diabetes, Insulin dep HEENT: No Tonsilitis Loss of Vision: Bilateral Hearing Impairment: Denies Cancer: No Psychosocial: No Anxiety, Depression Integumentary: No Blood Disorders: No Adverse Reaction/Blood Tranf: No Family Medical History Reviewed Nursing Family Hx Abdominal aortic aneurysm 09 BROTHER Cancer 03 MOTHER Cancer of colon 03 MOTHER 09 SISTER 19 MOTHER FH: COPD (chronic obstructive pulmonary disease) 19 FATHER FH: leukemia 09 SISTER 19 MOTHER FHx: stroke 19 FATHER Family history: Diabetes mellitus 09 BROTHER 09 SISTER 09 SISTER 09 SISTER Family history: Gastrointestinal disease 03 MOTHER 09 BROTHER Review of Systems Time Seen by Provider: 14:23 Constitutional: Weakness, Malaise; No: Fever, Chills, Sweats, Other Eyes: No: Pain, Vision change, Conjunctivae inflammation, Eyelid inflammation, Other, Redness ENT: No: Ear pain, Ear discharge, Nose pain, Nose discharge, Nose congestion, Mouth pain, Mouth swelling, Throat pain, Throat swelling, Other Respiratory: Cough, Shortness of breath, SOB with excertion, Wheezing; No: Dry, Hemoptysis, Pleuritic Pain, Sputum, Wheezing, Other Cardiovascular: Chest Pain, Palpitations, Paroxysmal Noc. Dyspnea, Lt Headedness; No: Orthopnea, Edema, Other Gastrointestinal: No: Nausea, Vomiting, Abdominal Pain, Diarrhea, Constipation, Melena, Hematochezia, Other Sepsis Event Evaluation Height, Weight, BMI Height: 5'11.00" Weight: 260lbs. 8.0oz. 117.998190fl; 37.65 BMI Method:Stated Exam Exam Vital Signs Date Time Temp Pulse Resp B/P (MAP) Pulse Ox O2 Delivery O2 Flow Rate FiO2 06/08/19 12:58 37.0 102 20 121/79 92 Room Air 06/08/19 12:50 37.0 102 20 121/79 (93) 92 Room Air 06/08/19 12:38 88 18 147/95 (103) 94 Room Air 06/08/19 08:20 36.6 101 18 132/89 (103) 94 Room Air 06/08/19 08:20 Room Air Height & Weight Height: 5'11.00" Weight: 260lbs. 8.0oz. 117.251187dc; 37.65 BMI Method:Stated General Appearance: WD/WN, Anxious, Mild Distress HEENT: PERRL/EOMI, Pharynx Normal Neck: Non Tender, Supple Respiratory: Lungs Clear, Normal Breath Sounds Cardiovascular: Regular Rate, Rhythm, No Murmur Capillary Refill: Less Than 3 Seconds Extremity: Normal Range of Motion, Non Tender Neurologic/Psychiatric: Alert, Oriented x3 Skin: Normal Color, Warm/Dry Results Lab Laboratory Tests 06/08/19 08:35 Assessment/Plan Assessment/Plan CP -Cardiology following CAD Renal insufficiency Chronic pain Morbid obesity with RIAZ DM II BIANCA CARR DO Jun 08, 2019 14:26
[2019-06-08] MEDS ORDERED: morphine INJ 4 MG/ML 1 ML (VIAL/SYRINGE) IV PRN (14:30)
[2019-06-08] MEDS ORDERED: ONDANSETRON 4 MG/2 ML (SDV) Z0FRAN IV PRN (14:30)
[2019-06-08] MEDS ORDERED: NITROGLYCERIN 0.4 MG SL TABS BTL 25'S SL PRN (14:30)
[2019-06-08] MEDS ORDERED: CATHETER FLUSH 10 ML SYR IV PRN (14:30)
--- NOTE | 2019-06-08 14:38 | NUR ---
SPOKE WITH THE PATIENT ABOUT HIS MEDICATIONS. HE HAD A LIST ON HIS PHONE, I COMPARED THAT LIST WITH THE EXT MED HX WELL THE LIST ON FILE FROM HIS PREVIOUS ADMISSION. HE STATES HIS INSULIN HAS BEEN INCREASED, TOUJEO TO 160 UNITS AT 1800 AND HUMALOG TO 60 UNITS TID. HE VERIFIED HE HAS BEEN TAKING THE MAGNESIUM THAT WAS PRESCRIBED AT DISCHARGE LAST TIME, I VERIFIED WITH D[facility]ONS THAT THIS WAS PICKED UP. HE STATES HIS METOPROLOL WAS CHANGED TO CARVEDILOL, WE HAD BOTH MEDS ON THE MED REC FROM PREVIOUS, I REMOVED THE METOPROLOL AT THIS TIME.
--- NOTE | 2019-06-08 15:16 | Consultation-Cardiology ---
HPI-Cardiology Cardiology Consultation Date of Consultation 06/08/19 Date of Admission Time Seen by Provider: 15:11 Indication: Chest pain HPI 53 years old gentleman with history of coronary artery disease, hypertension hyperlipidemia, multiple admission for chest pain. Was in his usual state of health status have chest discomfort in the retrosternal area shortness of breath, took some nitroglycerin without help, had headache. Came into the emergency room and he was admitted for increasing chest pain. On my evaluation was still having mild chest pain and shortness of breath. Home Medications & Allergies Allergies: Coded Allergies: No Known Drug Allergies (Unverified , 11/21/18) Home Medication List Reviewed: Yes HEP-Kwrbvg-Ovsfbx Hx Patient Social History Marital Status: Employed/Student: employed Alcohol Use: Rarely Uses Recreational Drug Use: No Type Used: Smokeless Tobacco 2nd Hand Smoke Exposure: No Recent Foreign Travel: No Recent Infectious Disease Expo: No Recent Hopitalizations: Yes Immunizations Up To Date Tetanus Booster (TDap): Unknown Date of Pneumonia Vaccine: Apr 25, 2019 Date of Influenza Vaccine: Apr 26, 2019 Past Medical History Discussed below Family Medical History Family History: Abdominal aortic aneurysm 09 BROTHER Cancer 03 MOTHER Cancer of colon 03 MOTHER 09 SISTER 19 MOTHER FH: COPD (chronic obstructive pulmonary disease) 19 FATHER FH: leukemia 09 SISTER 19 MOTHER FHx: stroke 19 FATHER Family history: Diabetes mellitus 09 BROTHER 09 SISTER 09 SISTER 09 SISTER Family history: Gastrointestinal disease 03 MOTHER 09 BROTHER Review of Systems-General Review of Systems Constitutional: see HPI; No chills, No fever EENTM: see HPI, no symptoms reported Respiratory: see HPI; No cough; dyspnea on exertion; No hemoptysis, No orthopnea, No phlegm, No short of breath, No stridor, No wheezing, No other Cardiovascular: see HPI, chest pain; No edema, No Hx of Intervention, No palpitations, No syncope, No vascular heart diseas, No other Gastrointestinal: no symptoms reported, see HPI Genitourinary: no symptoms reported, see HPI Musculoskeletal: no symptoms reported, see HPI Skin: no symptoms reported, see HPI Psychiatric/Neurological: See HPI, Anxiety; Denies Headache All Other Systems Reviewed Negative Unless Noted: Yes Reviewed Test Results Reviewed Test Results Lab Laboratory Tests Test 06/08/19 08:35 06/08/19 13:48 06/08/19 14:10 Range/Units White Blood Count 11.7 H 4.3-11.0 10^3/uL Red Blood Count 4.70 4.35-5.85 10^6/uL Hemoglobin 14.7 13.3-17.7 G/DL Hematocrit 42 40-54 % Mean Corpuscular Volume 90 80-99 FL Mean Corpuscular Hemoglobin 31 25-34 PG Mean Corpuscular Hemoglobin Concent 35 32-36 G/DL Red Cell Distribution Width 13.2 10.0-14.5 % Platelet Count 163 130-400 10^3/uL Mean Platelet Volume 11.7 H 7.4-10.4 FL Neutrophils (%) (Auto) 69 42-75 % Lymphocytes (%) (Auto) 14 12-44 % Monocytes (%) (Auto) 13 H 0-12 % Eosinophils (%) (Auto) 4 0-10 % Basophils (%) (Auto) 0 0-10 % Neutrophils # (Auto) 8.0 H 1.8-7.8 X 10^3 Lymphocytes # (Auto) 1.7 1.0-4.0 X 10^3 Monocytes # (Auto) 1.5 H 0.0-1.0 X 10^3 Eosinophils # (Auto) 0.5 H 0.0-0.3 10^3/uL Basophils # (Auto) 0.0 0.0-0.1 10^3/uL Prothrombin Time 13.5 12.2-14.7 SEC INR Comment 1.0 0.8-1.4 Activated Partial Thromboplast Time 29 24-35 SEC Sodium Level 138 135-145 MMOL/L Potassium Level 4.2 3.6-5.0 MMOL/L Chloride Level 104 98-107 MMOL/L Carbon Dioxide Level 24 21-32 MMOL/L Anion Gap 10 5-14 MMOL/L Blood Urea Nitrogen 35 H 7-18 MG/DL Creatinine 1.68 H 0.60-1.30 MG/DL Estimat Glomerular Filtration Rate 43 BUN/Creatinine Ratio 21 Glucose Level 265 H 70-105 MG/DL Calcium Level 9.7 8.5-10.1 MG/DL Corrected Calcium 9.5 8.5-10.1 MG/DL Magnesium Level 1.7 1.6-2.4 MG/DL Total Bilirubin 0.6 0.1-1.0 MG/DL Aspartate Amino Transf (AST/SGOT) 29 5-34 U/L Alanine Aminotransferase (ALT/SGPT) 46 0-55 U/L Alkaline Phosphatase 66 40-136 U/L Myoglobin 143.1 H 130.1 H 10.0-92.0 NG/ML Troponin I < 0.028 < 0.028 <0.028 NG/ML B-Type Natriuretic Peptide < 10.0 <100.0 PG/ML Total Protein 7.4 6.4-8.2 GM/DL Albumin 4.2 3.2-4.5 GM/DL Glucometer 170 H 70-110 MG/DL Physical Exam Physical Exam Vital Signs Vital Signs - First Documented 06/08/19 08:20 Temp 36.6 Pulse 101 Resp 18 B/P (MAP) 132/89 (103) Pulse Ox 94 O2 Delivery Room Air Capillary Refill : Less Than 3 Seconds Height, Weight, BMI Height: 5'11.00" Weight: 260lbs. 8.0oz. 117.215481ha; 37.65 BMI Method:Stated General Appearance: WD/WN, Anxious, Mild Distress Eyes: Bilateral Eye Normal Inspection, Bilateral Eye PERRL, Bilateral Eye EOMI HEENT: PERRL/EOMI, Pharynx Normal Neck: Non Tender, Supple Respiratory: Lungs Clear, Normal Breath Sounds Cardiovascular: Regular Rate, Rhythm, No Edema, No Gallop, No JVD, No Murmur Gastrointestinal: Non Tender, Soft Back: Normal Inspection, No CVA Tenderness, No Vertebral Tenderness Extremity: Normal Range of Motion, Non Tender Neurologic/Psychiatric: Alert, Oriented x3 Skin: Normal Color, Warm/Dry Lymphatic: No Adenopathy A/P-Cardiology Admission Diagnosis Chest pain Coronary artery disease Hypertension Hyperlipidemia Assessment/Plan Chest pain resembling angina, EKG did not show any acute changes, troponin is negative. Probably small vessel disease, scheduled for endoscopy today and I will schedule him for repeat cardiac catheterization on Thursday at [facility]. Continue with medical therapy at this time Coronary artery disease, non-ST elevation cardiac infarction occurred recently, had severe stenosis at the right coronary artery with successful deployment of Maday 4 x 23 mm stent expanded to 4.5 mm with excellent results. The distal right PDA is occluded, small vessel disease, circumflex has severe diffuse disease, underwent stenting on May 03, 2019 in [facility], I do not have the report in addition he had [id number] ectasia in the LAD, mild to moderate diffuse disease, went to [facility] late in April 2019 and had another stent to the LAD, planning to refer him back for reevaluate cardiac catheterization. Hypertension, restart home medication monitor blood pressure Hyperlipidemia, restart medication and monitor Chronic renal insufficiency, continue to monitor renal function Diabetes mellitus, followed and managed by primary care physician COPD/obstructive sleep apnea Obesity, BMI 37 Multiple back surgeries, recent knee surgery Clinical Quality Measures AMI/AHF: ASA po Prior to arrival: Yes DVT/VTE Risk/Contraindication: Risk Factor Score Per Nursin RFS Level Per Nursing on Admit: 4+=Very High ROSS RODRÍGUEZ MD Jun 08, 2019 15:16
[2019-06-08] MEDS ORDERED: LACTATED RINGERS 1,000 ML IV ONE ×2 (16:20→17:00)
--- NOTE | 2019-06-08 16:20 | Consultation - Surgery ---
History of Present Illness History of Present Illness Patient Consulted On(jonathon/time) 06/08/19 16:14 Time Seen by Provider: 15:50 Reason for Visit: Chest pain History of Present Illness Surgery asked to consult regarding Non-Cardiac Chest pain; r/o Gastritis or Esophagitis. HPI per ED: Here with acute onset of central chest pain that started about 15 minutes prior to arrival while at cardiac rehabilitation. Did take nitroglycerin 2 and that only gave him a headache but did not change his pain. States it's in the center of his chest and a little bit to the right sided. Sharp and achy. He's had multiple episodes of similar chest pain. States today it's a little different in that it does not go all or to his back. Has had recent heart catheter with stent placement 3 over the last few months and had recent hospitalization for a very similar presentation a week ago. Follows with Dr. Stevens and Dr. Núñez. Timing/Duration: 1/2 hour Severity/Quality: moderate, severe, sharp Location: central Radiation: no radiation Activities at Onset: none When i spoke to pt he states the pain is slightly different than his chest pain, but not exactly like pain he had when he had Gray Fundoplication done. Pt describes it as a burning pressure. States he was started on acid blockers as precaution in April af ter stent, but doesn't think it did anything. Allergies and Home Medications Allergies Coded Allergies: No Known Drug Allergies (Unverified , 11/21/18) Home Medications Albuterol Sulfate 1 Puff Puff, 2 PUFF IH Q4H PRN for SHORTNESS OF BREATH, (Reported) 1 PUFF = 90 MCG Allopurinol 300 Mg Tablet, 300 MG PO DAILY, (Reported) Ascorbic Acid 500 Mg Tablet, 500 MG PO BID, (Reported) Aspirin 81 Mg Tablet.dr, 81 MG PO DAILY, (Reported) Baclofen 10 Mg Tablet, 10 MG PO TID PRN for SPASMS, (Reported) Carvedilol 6.25 Mg Tablet, 6.25 MG PO BID, (Reported) Cholecalciferol (Vitamin D3) 5,000 Unit Capsule, 5,000 UNIT PO DAILY, (Reported) Diclofenac Sodium 100 Gm Gel..gram., 2 GM TOP QID PRN for SHOULDER PAIN, (Reported) Fenofibrate,Micronized 134 Mg Capsule, 134 MG PO HS, (Reported) Fluticasone Propion/Salmeterol 1 Each Blst.w.dev, 1 PUFF INH BID PRN for SHORTNESS OF BREATH, (Reported) Furosemide 40 Mg Tablet, 40 MG PO DAILY, (Reported) Gabapentin 300 Mg Capsule, 1,500 MG PO HS, (Reported) TAKES 5 (300MG) CAPSULES Gabapentin 300 Mg Capsule, 300 MG PO DAILY, (Reported) Hydrocodone/Acetaminophen 1 Each Tablet, 1 TAB PO Q6H PRN for PAIN-MODERATE (5- 7), (Reported) Insulin Glargine,Hum.rec.anlog 300 Unit/1 Ml Insuln.pen, 160 UNITS SC 1800, (R eported) Insulin Lispro 100 Unit/1 Ml Insuln.pen, 60 UNIT SQ TIDAC, (Reported) Isosorbide Mononitrate 30 Mg Tab.er.24h, 30 MG PO DAILY, (Reported) Lisinopril 20 Mg Tablet, 20 MG PO DAILY, (Reported) Magnesium Oxide 400 Mg Tablet, 400 MG PO BIDPC, (Reported) Metformin HCl 500 Mg Tab.er.24h, 500 MG PO DAILY, (Reported) Montelukast Sodium 10 Mg Tablet, 10 MG PO HS, (Reported) [place]-3 Acid Ethyl Esters 1 Gm Capsule, 2 GM PO BID, (Reported) TAKES 2 (1GM) CAPSULES Pantoprazole Sodium 40 Mg Tablet.dr, 40 MG PO DAILY, (Reported) Pediatric Multivit Comb No.136 1 Each Tab.chew, 2 TAB.CHEW PO DAILY, (Reported) Pitavastatin Calcium 4 Mg Tablet, 4 MG PO HS, (Reported) Prasugrel HCl 10 Mg Tablet, 10 MG PO DAILY, (Reported) Promethazine HCl 25 Mg Tablet, 25 MG PO Q6H PRN for NAUSEA/VOMITING-2ND LINE, (Reported) Ubidecarenone 100 Mg Capsule, 100 MG PO DAILY, (Reported) TAKES ALONG WITH 200MG CAPSULE FOR A TOTAL DAILY DOSE OF 300MG Ubidecarenone 200 Mg Capsule, 200 MG PO DAILY, (Reported) TAKEA ALONG WITH 100MG CAPSULE FOR A TOTAL DAILY DOSE OF 300MG Patient Home Medication List Home Medication List Reviewed: Yes Past Netdxco-Afzirt-Ucpsnx Hx Patient Social History Alcohol Use: Rarely Uses Number of Drinks Today: AA Recreational Drug Use: No Smoking Status: Never a Smoker Type Used: Smokeless Tobacco 2nd Hand Smoke Exposure: No Recent Foreign Travel: No Contact w/Someone Who Travel: No Recent Infectious Disease Expo: No Recent Hopitalizations: Yes Immunizations Up To Date Tetanus Booster (TDap): Unknown PED Vaccines UTD: No Date of Pneumonia Vaccine: Apr 25, 2019 Date of Influenza Vaccine: Apr 26, 2019 Seasonal Allergies Seasonal Allergies: Yes Surgeries History of Surgeries: Yes Surgeries: Abdominal, Adenoidectomy, Appendectomy, Coronary Stent, Gallbladder, Orthopedic, Tonsillectomy Respiratory History of Respiratory Disorde: Yes Respiratory Disorders: Pneumonia Cardiovascular History of Cardiac Disorders: Yes Cardiac Disorders: Chronic Edema/Swelling, Coronary Artery Disease, High Cholesterol, Hypertension Neurological History of Neurological Disord: Yes Neurological Disorders: Headaches /Migraines, Neuropathy Reproductive System Hx Reproductive Disorders: No Sexually Transmitted Disease: No HIV/AIDS: No Genitourinary History of Genitourinary Disor: No Genitourinary Disorders: Kidney Stones, Renal Failure Gastrointestinal History of Gastrointestinal Di: Yes Gastrointestinal Disorders: Gastroesophageal Reflux Musculoskeletal History of Musculoskeletal Dis: Yes Musculoskeletal Disorders: Arthritis, Chronic Back Pain Endocrine History of Endocrine Disorders: Yes Endocrine Disorders: Diabetes, Insulin dep HEENT History of HEENT Disorders: No HEENT Disorders: Tonsilitis Loss of Vision: Bilateral Hearing Impairment: Denies Cancer History of Cancer: No Psychosocial History of Psychiatric Problem: No Behavioral Health Disorders: Anxiety, Depression Integumentary History of Skin or Integumenta: No Blood Transfusions History of Blood Disorders: No Adverse Reaction to a Blood Tr: No Family Medical History Significant Family History: Cancer, Diabetes, Hypertension, Stroke Family Medial History: Abdominal aortic aneurysm 09 BROTHER Cancer 03 MOTHER Cancer of colon 03 MOTHER 09 SISTER 19 MOTHER FH: COPD (chronic obstructive pulmonary disease) 19 FATHER FH: leukemia 09 SISTER 19 MOTHER FHx: stroke 19 FATHER Family history: Diabetes mellitus 09 BROTHER 09 SISTER 09 SISTER 09 SISTER Family history: Gastrointestinal disease 03 MOTHER 09 BROTHER Review of Systems-General Constitutional: malaise, weakness EENTM: No blurred vision, No double vision, No mouth pain, No mouth swelling, No epistaxis Respiratory: No cough, No dyspnea on exertion, No short of breath Cardiovascular: chest pain, Hx of Intervention; No palpitations Gastrointestinal: abdominal pain, dysphagia, nausea; No vomiting Genitourinary: No dysuria, No frequency, No hematuria Musculoskeletal: back pain, joint pain, joint swelling, muscle stiffness Skin: No change in color, No change in hair/nails Psychiatric/Neurological: Anxiety, Depressed; Denies Seizure, Denies Weakness Other pt states he bleeds and bruises easily because of his blood thinners Physical Exam-General Problems Physical Exam Vital Signs Vital Signs - First Documented 06/08/19 08:20 Temp 36.6 Pulse 101 Resp 18 B/P (MAP) 132/89 (103) Pulse Ox 94 O2 Delivery Room Air Capillary Refill : Less Than 3 Seconds General Appearance: WD/WN, no apparent distress Eyes: Bilateral Eye PERRL, Bilateral Eye EOMI HEENT: pharynx normal; No scleral icterus (R), No scleral icterus (L) Neck: non-tender, supple Respiratory: lungs clear, normal breath sounds, no respiratory distress, no accessory muscle use Cardiovascular: regular rate, rhythm, systolic murmur Gastrointestinal: normal bowel sounds, soft, no organomegaly Back: no CVA tenderness, no vertebral tenderness Extremities: no pedal edema, no calf tenderness, normal capillary refill Neurologic/Psychiatric: credit and collection manager II-XII nml as tested, no motor/sensory deficits, alert, normal mood/affect, oriented x 3 Skin: normal color, warm/dry Lymphatic: no adenopathy (neck, axilla or groin) Data Review Labs Laboratory Tests 06/08/19 08:35: White Blood Count 11.7H, Red Blood Count 4.70, Hemoglobin 14.7, Hematocrit 42, Mean Corpuscular Volume 90, Mean Corpuscular Hemoglobin 31, Mean Corpuscular Hemoglobin Concent 35, Red Cell Distribution Width 13.2, Platelet Count 163, Mean Platelet Volume 11.7H, Neutrophils (%) (Auto) 69, Lymphocytes (%) (Auto) 14, Monocytes (%) (Auto) 13H, Eosinophils (%) (Auto) 4, Basophils (%) (Auto) 0, Neutrophils # (Auto) 8.0H, Lymphocytes # (Auto) 1.7, Monocytes # (Auto) 1.5H, Eosinophils # (Auto) 0.5H, Basophils # (Auto) 0.0, Prothrombin Time 13.5, INR Comment 1.0, Activated Partial Thromboplast Time 29, Sodium Level 138, Potassium Level 4.2, Chloride Level 104, Carbon Dioxide Level 24, Anion Gap 10, Blood Urea Nitrogen 35H, Creatinine 1.68H, Estimat Glomerular Filtration Rate 43, BUN/Creatinine Ratio 21, Glucose Level 265H, Calcium Level 9.7, Corrected Calcium 9.5, Magnesium Level 1.7, Total Bilirubin 0.6, Aspartate Amino Transf (AST/SGOT) 29, Alanine Aminotransferase (ALT/SGPT) 46, Alkaline Phosphatase 66, Myoglobin 143.1H, Troponin I < 0.028, B-Type Natriuretic Peptide < 10.0, Total Protein 7.4, Albumin 4.2 06/08/19 13:48: Glucometer 170H 06/08/19 14:10: Myoglobin 130.1H, Troponin I < 0.028 06/08/19 15:58: Glucometer 185H Assessment/Plan Assessment/Plan Assessment/Plan Chest Pain Hx of [place] HTN, DM, Hx of Hiatal Hernia Pt has some chest pain but EKG showed no changes and Troponin was not elevated. Leather Shaver thought this could be a GI issue and asked for a consult. Pt does not really have much Gastritis, but did have Hiatal hernia and Gray Fundoplication. He has not eaten since 6 am; therefore, will do an EGD to make sure the pain is not esophageal or gastric in nature. I will not be able to do biopsies because pt is on blood thinners. Pt thinks it has been 10 years since he last had an EGD. Went over the procedure with pt; risks and complications not limited to pain, bleeding, infection and even esophageal perforation. All questions answered to his satisfaction. Clinical Quality Measures AMI/AHF: ASA po Prior to arrival: Yes DVT/VTE Risk/Contraindication: Risk Factor Score Per Nursin RFS Level Per Nursing on Admit: 4+=Very High RACHEL CONDE DO Jun 08, 2019 16:20
[2019-06-08] MEDS ORDERED: proPOfol 200 MG/20 ML (DIPRIVAN) VIAL IV ONE (16:26)
[2019-06-08] MEDS ORDERED: MIDAZOLAM 2 MG/2 ML (VERSED) VIAL ONE (16:26)
--- NOTE | 2019-06-08 16:47 | Progress Note-Post Operative ---
Post-Operative Progess Note Surgeon (s)/Brick Setter (s) Surgeon RACHEL CONDE DO Brick Setter: none Pre-Operative Diagnosis Chest pain r/o Gastritis, DM, HTN, CAD Post-Operative Diagnosis Gastritis Esophagitis ?? Mon's Procedure & Operative Findings Date of Procedure 06/08/19 Procedure Performed/Findings EGD Anesthesia Type IV sedation by DINKEY ENGINE FIRER Estimated Blood Loss Estimated blood loss (mL): none Specimens/Packing Specimens Removed none RACHEL CONDE DO Jun 08, 2019 16:47
[2019-06-08] MEDS ORDERED: RT-ADVAIR HFA 115/21 MCG PER PUFF IH PRN (17:00)
[2019-06-08] MEDS ORDERED: RT-ALBUTEROL SULF 2.5 MG/3 ML PRE-MIX VIAL IH PRN (17:00)
[2019-06-08] MEDS ORDERED: HURRICAINE EXT TUBE (BENZOCAINE) XX PRN (17:00)
[2019-06-08] MEDS ORDERED: NON-FORMULARY MEDICATION 1 EA EA (Fluticasone Propion/Salmeterol (Fluticasone-Salmeterol 2 INH PRN (17:00)
--- NOTE | 2019-06-08 17:15 | NUR ---
THIS NURSE NOTIFIED DR GONSALEZ PT SCORED A 9 ON DVT ASSESSMENT AND PT MED REC WAS COMPLETED . THIS NURSE ALSO UPDATED DR GONSALEZ ON EGD RESULTS AND CARDIOLOGY PLAN. WILL CONTINUE TO MONITOR TONIGHT.
--- NOTE | 2019-06-08 17:24 | NUR ---
ORDER GIVEN BY DR CONDE FOR CARAFATE AND CARB CONTROLLED DIET.
[2019-06-08] MEDS ORDERED: PROMETHAZINE 25 MG (PHENERGAN) TAB PO PRN (17:30)
[2019-06-08] MEDS ORDERED: ENOXAPARIN 40 MG/0.4 ML (LOVENOX) SYR SC SCH (17:30)
[2019-06-08] MEDS ORDERED: DICLOFENAC 1% GEL 100 GM (VOLTAREN) TUBE TOP PRN (17:30)
[2019-06-08] MEDS ORDERED: RX-HYDROCODONE/APAP 5/325 MG #4 TAB PK PO PRN (17:30)
--- NOTE | 2019-06-08 17:47 | Anesthesia-General Post-Op ---
MAC Patient Condition Mental Status/LOC: Same as Preop Cardiovascular: Satisfactory Nausea/Vomiting: Absent Respiratory: Satisfactory Pain: Controlled Complications: Absent Post Op Complications Complications None Follow Up Care/Instructions Patient Instructions None needed. Anesthesiology Discharge Order Discharge Order Patient is doing well, no complaints, stable vital signs, no apparent adverse anesthesia problems. No complications reported per nursing. DAVID CRANDALL CRNA Jun 08, 2019 17:47
[2019-06-08] MEDS ORDERED: NON-FORMULARY MEDICATION 1 EA EA (Magnesium Oxide (Magnesium) 400 MG) PO SCH (18:00)
[2019-06-08] MEDS ORDERED: INSULIN GLARGINE HUM REC ANLOG SC SCH (18:00)
[2019-06-08] MEDS ORDERED: [UNRECOGNIZED DRUG - OTHER] SC SCH (18:00)
[2019-06-08] MEDS: MAGNESIUM OXIDE (MAG-OX)400 MG TAB PO SCH (18:05)
[2019-06-08] MEDS: SUCRALFATE 1 GM (CARAFATE) TAB PO SCH (18:05)
--- NOTE | 2019-06-08 19:56 | History & Physical-Hospitalist ---
History of Present Illness HPI/Chief Complaint CC: Chest pain of non-cardiac source HPI: This is a very complicated Pt of mine with a recent coronary stent placed for an SD, in the last month who presented to the ER once again for chest pain. Pt was assessed, no evidence of acute coronary syndrome and Pt was admitted for risk-stratification and evaluation of BiPAP to treat the RIAZ, in addition to Dr. Armstrong. Will likely require an EGD to fully evaluate the non-cardiac cause of chest pain. Source: patient, RN/MD, old records Exam Limitations: no limitations Date Seen 06/08/19 Time Seen by a Provider: 12:50 Attending Physician Pat Gonsalez DO PCP Pat Gonsalez DO Referring Physician Date of Admission Jun 08, 2019 at 11:15 Home Medications & Allergies Home Medications Reviewed patient Home Medication Reconciliation performed by pharmacy medication reconciliations wafer fabrication technician and/or nursing. Patients Allergies have been reviewed. Allergies Allergies Coded Allergies No Known Drug Allergies (Unverified11/21/18) Past Hkpdldo-Thwizg-Pmrmpy Hx Past Med/Social Hx: Reviewed Nursing Past Med/Soc Hx, Reviewed and Corrections made Patient Social History Marrital Status: Employed/Student: employed Alcohol Use: Rarely Uses Number of Drinks Today: AA Alcohol Beverage of Choice: Beer Recreational Drug Use: No Smoking Status: Never a Smoker Type Used: Smokeless Tobacco 2nd Hand Smoke Exposure: No Recent Foreign Travel: No Contact w/other who traveled: No Recent Hopitalizations: Yes Recent Infectious Disease Expo: No Immunizations Up To Date Tetanus Booster (TDap): Unknown Pediatric: No Date of Pneumonia Vaccine: Apr 25, 2019 Date of Influenza Vaccine: Apr 26, 2019 Seasonal Allergies Seasonal Allergies: Yes Past Medical History Surgeries: Abdominal, Adenoidectomy, Appendectomy, Coronary Stent, Gallbladder, Orthopedic, Tonsillectomy Respiratory: COPD, Pneumonia, Sleep Apnea Currently Using CPAP: No Currently Using BIPAP: No Cardiac: Chronic Edema/Swelling, Coronary Artery Disease, High Cholesterol, Hypertension Neurological: Headaches /Migraines, Neuropathy Reproductive: No Sexually Transmitted Disease: No HIV/AIDS: No Genitourinary: Kidney Stones, Renal Failure Gastrointestinal: Gastroesophageal Reflux Musculoskeletal: Arthritis, Chronic Back Pain Endocrine: Diabetes, Insulin dep HEENT: Tonsilitis Loss of Vision: Bilateral Hearing Impairment: Denies Psychosocial: Anxiety, Depression History of Blood Disorders: No Adverse Reaction to Blood Chen: No Family History Reviewed Nursing Family Hx Abdominal aortic aneurysm 09 BROTHER Cancer 03 MOTHER Cancer of colon 03 MOTHER 09 SISTER 19 MOTHER FH: COPD (chronic obstructive pulmonary disease) 19 FATHER FH: leukemia 09 SISTER 19 MOTHER FHx: stroke 19 FATHER Family history: Diabetes mellitus 09 BROTHER 09 SISTER 09 SISTER 09 SISTER Family history: Gastrointestinal disease 03 MOTHER 09 BROTHER Cancer, Diabetes, Hypertension, Stroke Review of Systems Constitutional: see HPI Cardiovascular: chest pain Physical Exam Physical Exam Vital Signs Vital Signs - First Documented 06/08/19 06/08/19 08:20 16:45 Temp 36.6 Pulse 101 Resp 18 B/P (MAP) 132/89 (103) Pulse Ox 94 O2 Delivery Room Air O2 Flow Rate 10 Capillary Refill : Less Than 3 Seconds Height, Weight, BMI Height: 5'11.00" Weight: 260lbs. 8.0oz. 117.448115ln; 37.65 BMI Method:Stated General Appearance: No Apparent Distress, WD/WN, Chronically ill Eyes: Right Eye Normal Inspection, Right Eye PERRL HEENT: PERRL/EOMI, Normal ENT Inspection, Pharynx Normal, Moist Mucous Membranes Neck: Full Range of Motion, Normal Inspection, Non Tender Respiratory: Chest Non Tender, Lungs Clear, Normal Breath Sounds, No Accessory Muscle Use, No Respiratory Distress Cardiovascular: Regular Rate, Rhythm, No Edema, No Gallop, No JVD, No Murmur, Normal Peripheral Pulses Gastrointestinal: Normal Bowel Sounds, No Organomegaly, No Pulsatile Mass, Non Tender, Soft Back: Normal Inspection, No CVA Tenderness, No Vertebral Tenderness Extremity: Normal Capillary Refill, Normal Inspection, Normal Range of Motion, Non Tender, No Calf Tenderness, No Pedal Edema Neurologic/Psychiatric: Alert, Oriented x3, No Motor/Sensory Deficits, bitumastic applier II- XII Norm as Tested, Depressed Affect Skin: Normal Color, Warm/Dry Lymphatic: No Adenopathy Results Results/Procedures Labs Laboratory Tests 06/08/19 08:35 Patient resulted labs reviewed. Assessment/Plan Admission Diagnosis Assessment: Chest pain w/o evidence of ACS Recent SD s/p stents x 2 separate caths Titi Núñez and Osiel HTN HLP RAIZ non-compliant with biPAP consulting Dr Niya CHAUDHARY DM OOC managed by Dr Finnegan HLP Spinal disease Chronic pain Plan: Nathaniel Mahan, Miriam consultations are appreciated Admission Status: Observation Diagnosis/Problems Diagnosis/Problems (1) Chest pain Status: Acute Qualifiers: Chest pain type: unspecified Qualified Codes: R07.9 - Chest pain, unspecified (2) Stented coronary artery (3) Renal insufficiency (4) Chronic pain Status: Chronic (5) CAD (coronary artery disease) (6) Anxiety Status: Acute (7) IDDM (insulin dependent diabetes mellitus) Status: Chronic (8) Type 2 diabetes mellitus Status: Acute (9) RIAZ (obstructive sleep apnea) Clinical Quality Measures AMI/AHF: ASA po Prior to arrival: Yes DVT/VTE Risk/Contraindication: Risk Factor Score Per Nursin RFS Level Per Nursing on Admit: 4+=Very High PAT GONSALEZ DO Jun 08, 2019 19:56
[2019-06-08] MEDS: PANTOPRAZOLE 40 MG (PROTONIX) VIAL IV SCH (20:39)
[2019-06-08] MEDS: OMEGA 3 (FISH OIL) 1000 MG CAP PO SCH (20:40)
[2019-06-08] MEDS: CARVEDILOL 6.25 MG (COREG) TAB PO SCH (20:41)
[2019-06-08] MEDS ORDERED: PITAVASTATIN CALCIUM 4 MG PO SCH (21:00)
[2019-06-08] MEDS ORDERED: OMEGA-3 ACID ETHYL ESTERS 1 GM (LOVAZA) NON-FORMULARY PO SCH (21:00)
[2019-06-08] MEDS ORDERED: MONTELUKAST 10 MG (SINGULAIR) TAB PO SCH (21:00)
[2019-06-08] MEDS ORDERED: GABAPENTIN 300 MG (NEURONTIN) CAP PO SCH (21:00)
[2019-06-08] MEDS ORDERED: FENOFIBRATE 134 MG (LOFIBRA) CAPSULE PO SCH (21:00)
[2019-06-08] MEDS: BACLOFEN 10 MG (LIORESAL) TAB PO PRN (22:04)
[2019-06-08] MEDS: CATHETER FLUSH 10 ML SYR IV SCH (23:01)
[2019-06-08] MEDS: HYDROcodone/APAP 5 MG/325 MG (LORTAB) TAB PO PRN (23:01)
--- NOTE | 2019-06-09 00:09 | OPERATIVE REPORT ---
DATE OF SERVICE: PREOPERATIVE DIAGNOSES: Chest pain, rule out gastritis; history of hypertension, diabetes, coronary artery disease. POSTOPERATIVE DIAGNOSES: Gastritis and esophagitis, rule out questionable Mon's esophagus. PROCEDURE: EGD. SURGEON: Eddie Armstrong DO. WARDROBE CUSTODIAN: None. ANESTHESIA: IV sedation by BUSINESS INSTRUCTOR. SPECIMENS: None. BLOOD LOSS: None. FLUIDS: Per anesthesia. POSTOPERATIVE CONDITION: Stable. INDICATION FOR PROCEDURE: The patient is a 53-year-old male, who was admitted with noncardiac chest pain, wanted to make sure that was not GI in nature. FINDINGS: The patient had some very mild gastritis, but he did have some changes in the esophagus, looked like esophagitis and possibly even Mon's esophagus. He also had a tortuous esophagus, but no other obvious pathology. PROCEDURE NOTE: After informed consent was obtained, the patient was brought to the endoscopy suite and placed in bed in the left lateral decubitus position. He was administered IV sedation by the BUSINESS INSTRUCTOR who monitored his vitals the entire time, heart rate, blood pressure and pulse ox and the scope was inserted down the mouth through the esophagus into the stomach, pushed towards the antrum, took a picture, there were some mild inflammation; pushed into the duodenum and got into the first and second and maybe even the third portion of duodenum; there was no inflammation. Pulled back slowly, retroflexed the scope, did not see any inflammation in the upper part of the scope, could see where the previous wrap had been performed, looked good, pulled the scope, suctioned the air out of the stomach and then pulled the scope into the esophagus and saw some creeping up of the Z line, looked like possibly Mon's esophagus. Picture was taken. Could not do biopsy because the patient is on blood thinners. The esophagus is very tortuous on the way down and same on the way up, but at this point pulled the scope up the esophagus and out the mouth. The patient tolerated the procedure, recovered in endoscopy suite. Job ID: [id number] DocumentID: [id number] Dictated Date: 06/08/2019 16:49:34 Wild Life Photographer Date: 06/09/2019 00:09:01 Dictated By: EDDIE ARMSTRONG DO
[2019-06-09 00:19] VITALS: BP 120/82
[2019-06-09 03:52] LABS: BASOPHILS % (AUTO) 0 % (0-10); EOSINOPHILS # (AUTO) 0.2 10^3/uL (0.0-0.3); EOSINOPHILS % (AUTO) 2 % (0-10); HEMATOCRIT 43 % (40-54); HEMOGLOBIN 14.8 G/DL (13.3-17.7); LYMPHOCYTES # (AUTO) 2.1 X 10^3 (1.0-4.0); LYMPHOCYTES % (AUTO) 20 % (12-44); MEAN CORPUSCULAR HEMOGLOBIN 32 PG (25-34); MEAN CORPUSCULAR HGB CONC 35 G/DL (32-36); MEAN CORPUSCULAR VOLUME 91 FL (80-99); MEAN PLATELET VOLUME 11.5 FL (7.4-10.4); MONOCYTES # (AUTO) 1.4 X 10^3 (0.0-1.0); MONOCYTES % (AUTO) 14 % (0-12); NEUTROPHILS # (AUTO) 6.7 X 10^3 (1.8-7.8); NEUTROPHILS % (AUTO) 64 % (42-75); PLATELET COUNT 161 10^3/uL (130-400); RED CELL DISTRIBUTION WIDTH 13.5 % (10.0-14.5); WHITE BLOOD COUNT 10.5 10^3/uL (4.3-11.0)
[2019-06-09] MEDS: HYDROcodone/APAP 5 MG/325 MG (LORTAB) TAB PO PRN (04:00)
[2019-06-09 04:15] LABS: ALBUMIN 4.2 GM/DL (3.2-4.5); BILIRUBIN,TOTAL 0.6 MG/DL (0.1-1.0); CALCIUM 9.5 MG/DL (8.5-10.1); CREATININE SERUM 1.53 MG/DL (0.60-1.30); TOTAL PROTEIN 7.4 GM/DL (6.4-8.2)
[2019-06-09 04:17] LABS: CHOLESTEROL 179 MG/DL (< 200); HDL CHOLESTEROL 31 MG/DL (40-60); TRIGLYCERIDES 566 MG/DL (<150); VLDL CHOLESTEROL 113 MG/DL (5-40)
[2019-06-09 04:45] VITALS: BP 117/80
[2019-06-09] MEDS ORDERED: INSULIN LISPRO 60 UNIT SQ SCH (06:00)
[2019-06-09] MEDS: inSUlin ASPART (NovoLOG) 1 UNIT/0.01 ML (CHARGE PER UNIT) SC SCH ×2 (06:04→11:59)
[2019-06-09] MEDS: SUCRALFATE 1 GM (CARAFATE) TAB PO SCH ×2 (06:04→11:59)
[2019-06-09] MEDS: CATHETER FLUSH 10 ML SYR IV SCH (06:04)
[2019-06-09] MEDS: BACLOFEN 10 MG (LIORESAL) TAB PO PRN (06:06)
[2019-06-09] MEDS ORDERED: MULTIVITAMINS LIQUID 15 ML UDC PO SCH (07:00)
[2019-06-09] MEDS ORDERED: ASCORBIC ACID (VIT C) 500 MG TABLET PO SCH (07:00)
[2019-06-09 07:43] VITALS: BP 134/83
[2019-06-09] MEDS: OMEGA 3 (FISH OIL) 1000 MG CAP PO SCH (08:03)
[2019-06-09] MEDS: PANTOPRAZOLE 40 MG (PROTONIX) VIAL IV SCH (08:03)
[2019-06-09] MEDS: MAGNESIUM OXIDE (MAG-OX)400 MG TAB PO SCH (08:03)
[2019-06-09] MEDS: CARVEDILOL 6.25 MG (COREG) TAB PO SCH (08:03)
--- NOTE | 2019-06-09 08:04 | NUR ---
Unable to scan medications due to scanner error. Work order placed and medications verified 1 by 1 against JUL.
[2019-06-09] MEDS ORDERED: PANTOPRAZOLE 40 MG (PROTONIX) TAB PO SCH (09:00)
[2019-06-09] MEDS ORDERED: PRASUGREL 10 MG (EFFIENT) TABLET PO SCH (09:00)
[2019-06-09] MEDS ORDERED: lisINopril 20 MG (PRINIVIL) TABLET PO SCH (09:00)
[2019-06-09] MEDS ORDERED: NON-FORMULARY MEDICATION 1 EA EA (Cholecalciferol (Vitamin D3) (Vitamin D3) 5,000 UNIT) PO SCH (09:00)
[2019-06-09] MEDS ORDERED: ASPIRIN E.C. 81 MG (ECOTRIN) TAB PO SCH ×2 (09:00)
[2019-06-09] MEDS ORDERED: [UNRECOGNIZED DRUG - REMARK] PO SCH (09:00)
[2019-06-09] MEDS ORDERED: GABAPENTIN 300 MG (NEURONTIN) CAP PO SCH (09:00)
[2019-06-09] MEDS ORDERED: NON-FORMULARY MEDICATION 1 EA EA (Ubidecarenone (Co Q-10) 200 MG) PO SCH (09:00)
[2019-06-09] MEDS ORDERED: ISOSORBIDE MONONITRATE 30 MG (IMDUR) TAB PO SCH (09:00)
[2019-06-09] MEDS ORDERED: VITAMIN D3 5,000 UNITS (CHOLECALCIFEROL ) CAPSULE PO SCH (09:00)
[2019-06-09] MEDS ORDERED: NON-FORMULARY MEDICATION 1 EA EA (Ubidecarenone (Co Q-10) 100 MG) PO SCH (09:00)
[2019-06-09] MEDS ORDERED: ALLOPURINOL 300 MG (ZYLOPRIM) TAB PO SCH (09:00)
[2019-06-09] MEDS ORDERED: FUROSEMIDE 40 MG (LASIX) TAB PO SCH (09:00)
--- NOTE | 2019-06-09 09:41 | Cardiology Progress Note ---
Subjective Date Seen by Provider: Jun 09, 2019 Time Seen by Provider: 09:39 Subjective/Events-last exam Patient is sitting in bed, feeling well. Reporting mild chest discomfort Review of Systems General: No Chills, No Night Sweats, No Fatigue, No Malaise, No Appetite, No Other HEENT: No Head Aches, No Visual Changes, No Eye Pain, No Ear Pain, No Dysphasia, No Sinus Congestion, No Post Nasal Drip, No Sore Throat, No Other Pulmonary: No Dyspnea, No Cough, No Pleuritic Chest Pain, No Other Cardiovascular: Chest Pain; No: Palpitations, Orthopnea, Paroxysmal Noc. Dyspnea, Edema, Lt Headedness, Other Objective-Cardiology Exam Last Set of Vital Signs Vital Signs 06/08/19 06/09/19 06/09/19 06/09/19 16:50 07:43 11:54 12:15 Temp 36.1 Pulse 87 Resp 20 B/P (MAP) 134/83 (100) Pulse Ox 95 O2 Delivery Room Air O2 Flow Rate 5 Capillary Refill : Less Than 3 Seconds I&O Intake and Output 06/09/19 00:00 Intake Total 550 ml Output Total 1250 ml Balance -700 ml Intake Oral 400 ml IV Total 150 ml Output Urine Total 1250 ml Daily Weight Change No No General: Alert, Oriented X3, Cooperative HEENT: Atraumatic, PERRLA Neck: Supple, No JVD, No Thyromegaly Lungs: Clear to Auscultation, Normal Air Movement Heart: Regular Rate, Normal S1, Normal S2, No Murmurs Abdomen: Normal Bowel Sounds, Soft, No Tenderness, No Hepatosplenomegaly, No Masses Extremities: No Clubbing, No Cyanosis, No Edema, Normal Pulses, No Tenderness/Swelling Skin: No Rashes, No Breakdown, No Significant Lesion Neuro: Normal Gait, Normal Speech, Strength at 5/5 X4 Ext, Normal Tone, Sensation Intact Psych/Mental Status: Mental Status NL, Mood NL Results Lab Laboratory Tests 06/09/19 03:34 A/P-Cardiology Admission Diagnosis Chest pain Coronary artery disease Hypertension Hyperlipidemia Assessment/Plan Chest pain resembling angina, EKG did not show any acute changes, troponin is negative, had endoscopy done which showed gastritis. Started on PPI. I am planning to evaluate his coronary anatomy and evaluate for any possible cardiac cause for his chest pain. He is scheduled for cardiac catheterization with Dr. Arredondo in [place] for tomorrow at 10 a.m. Coronary artery disease, non-ST elevation cardiac infarction occurred recently, had severe stenosis at the right coronary artery with successful deployment of Maday 4 x 23 mm stent expanded to 4.5 mm with excellent results. The distal right PDA is occluded, small vessel disease, circumflex has severe diffuse disease, underwent stenting on May 03, 2019 in [facility], I do not have the report in addition he had [id number] ectasia in the LAD, mild to moderate diffuse disease, went to [facility] late in April 2019 and had another stent to the LAD, planning to refer him back for reevaluate cardiac catheterization. Hypertension, restart home medication monitor blood pressure Hyperlipidemia, restarted home medication, poorly controlled, may benefit from increasing dose of Atorvastatin Chronic renal insufficiency, elevated Creatinine, continue to monitor renal function Diabetes mellitus, followed and managed by primary care physician COPD/obstructive sleep apnea Obesity, BMI 37 Multiple back surgeries, recent knee surgery Clinical Quality Measures AMI/AHF: ASA po Prior to arrival: Yes DVT/VTE Risk/Contraindication: Risk Factor Score Per Nursin RFS Level Per Nursing on Admit: 4+=Very High Supervisory-Addendum Brief Verification & Attestation Participated in pt care: history, MDM, physical Personally performed: exam, history, MDM, supervision of care Care discussed with: Medical Student Procedures: n/a Results interpretation: Verified all documentation Verification and Attestation of Medical Student E/M Service A medical student performed and documented this service in my presence. I reviewed and verified all information documented by the medical student and made modifications to such information, when appropriate. I personally performed the physical exam and medical decision making. Ross Núñez, Jun 09, 2019,12:50 [facility] Jun 09, 2019 9:41 am ROSS NÚÑEZ MD Jun 09, 2019 12:50 pm
[2019-06-09] MEDS ORDERED: SUCR1TAB PO (09:54)
[2019-06-09] MEDS ORDERED: PANT40TA2 PO (09:54)
--- NOTE | 2019-06-09 09:55 | Discharge Summary ---
Discharge Summary Hospital Course Was the Problem List Reviewed?: Yes Problems/Dx: (1) Chest pain Status: Acute Qualifiers: Qualified Codes: R07.9 - Chest pain, unspecified (2) Stented coronary artery (3) Renal insufficiency (4) Chronic pain Status: Chronic (5) CAD (coronary artery disease) (6) Anxiety Status: Acute (7) IDDM (insulin dependent diabetes mellitus) Status: Chronic (8) Type 2 diabetes mellitus Status: Acute (9) RIAZ (obstructive sleep apnea) Hospital Course Date of Admission: Jun 08, 2019 at 11:15 Admission Diagnosis : Family Physician/Provider: Pat Gonsalez DO Date of Discharge: 06/09/19 Discharge Diagnosis: Chest pain, gastritis on EGD, RIAZ non-compliant with biPAP Hospital Course: Hospital Course: Pt had an uneventful hospital course. Pt was admitted for chest pain that did not appear to be cardiac in origin but Dr. Núñez was consulted along with Dr. Pineda due to noncompliance with BiPAP RIAZ treatment. In addition he has had some issues with his stomach before so Dr. Armstrong was consulted, completed EGD showing gastritis. Pt was placed on Carafate and proton pump inhibitor, and was discharged on both of those with close follow up with Dr. Cartagena tomorrow at 10 am in the cardiac photo lab specialist. Labs and Pending Lab Test: Laboratory Tests 06/08/19 13:48: Glucometer 170H 06/08/19 14:10: Myoglobin 130.1H, Troponin I < 0.028 06/08/19 15:58: Glucometer 185H 06/09/19 03:34: White Blood Count 10.5, Red Blood Count 4.69, Hemoglobin 14.8, Hematocrit 43, Mean Corpuscular Volume 91, Mean Corpuscular Hemoglobin 32, Mean Corpuscular Hemoglobin Concent 35, Red Cell Distribution Width 13.5, Platelet Count 161, Mean Platelet Volume 11.5H, Neutrophils (%) (Auto) 64, Lymphocytes (%) (Auto) 20, Monocytes (%) (Auto) 14H, Eosinophils (%) (Auto) 2, Basophils (%) (Auto) 0, Neutrophils # (Auto) 6.7, Lymphocytes # (Auto) 2.1, Monocytes # (Auto) 1.4H, Eosinophils # (Auto) 0.2, Basophils # (Auto) 0.0, Sodium Level 138, Potassium Le kirstie 4.0, Chloride Level 103, Carbon Dioxide Level 22, Anion Gap 13, Blood Urea Nitrogen 28H, Creatinine 1.53H, Estimat Glomerular Filtration Rate 48, BUN/Creatinine Ratio 18, Glucose Level 156H, Calcium Level 9.5, Corrected Calcium 9.3, Total Bilirubin 0.6, Aspartate Amino Transf (AST/SGOT) 23, Alanine Aminotransferase (ALT/SGPT) 40, Alkaline Phosphatase 53, Total Protein 7.4, Albumin 4.2, Triglycerides Level 566H, Cholesterol Level 179, LDL Cholesterol Direct 79, VLDL Cholesterol 113H, HDL Cholesterol 31L Home Meds Active Protonix (Pantoprazole Sodium) 40 Mg Tablet.dr 40 Mg PO BID Sucralfate 1 Gm Tablet 1 Gm PO TIDAC Reported Magnesium (Magnesium Oxide) 400 Mg Tablet 400 Mg PO BIDPC Carvedilol 6.25 Mg Tablet 6.25 Mg PO BID Furosemide 40 Mg Tablet 40 Mg PO DAILY Pantoprazole Sodium 40 Mg Tablet.dr 40 Mg PO DAILY Aspirin EC (Aspirin) 81 Mg Tablet.dr 81 Mg PO DAILY Isosorbide Mononitrate ER (Isosorbide Mononitrate) 30 Mg Tab.er.24h 30 Mg PO DAILY Fenofibrate (Fenofibrate,Micronized) 134 Mg Capsule 134 Mg PO HS Prasugrel HCl 10 Mg Tablet 10 Mg PO DAILY Vitamin D3 (Cholecalciferol (Vitamin D3)) 5,000 Unit Capsule 5,000 Unit PO DAILY Hydrocodone-Acetamin 5-325 mg (Hydrocodone/Acetaminophen) 1 Each Tablet 1 Tab PO Q6H PRN Children Multivitamin (Pediatric Multivit Comb No.136) 1 Each Tab.chew 2 Tab.chew PO DAILY Fluticasone-Salmeterol 250-50 (Fluticasone Propion/Salmeterol) 1 Each Blst.w.dev 1 Puff INH BID PRN Toujeo Max Solostar (Insulin Glargine,Hum.rec.anlog) 300 Unit/1 Ml Insuln.pen 160 Units SC 1800 [place]-3 Acid Ethyl Esters 1 Gm Capsule 2 Gm PO BID TAKES 2 (1GM) CAPSULES Lisinopril 20 Mg Tablet 20 Mg PO DAILY Gabapentin 300 Mg Capsule 300 Mg PO DAILY Metformin HCl ER (Metformin HCl) 500 Mg Tab.er.24h 500 Mg PO DAILY Diclofenac Sodium 100 Gm Gel..gram. 2 Gm TOP QID PRN Humalog Kwikpen (Insulin Lispro) 100 Unit/1 Ml Insuln.pen 60 Unit SQ TIDAC Proair Hfa (Albuterol Sulfate) 1 Puff Puff 2 Puff IH Q4H PRN 1 PUFF = 90 MCG Ascorbic Acid 500 Mg Tablet 500 Mg PO BID Allopurinol 300 Mg Tablet 300 Mg PO DAILY Gabapentin 300 Mg Capsule 1,500 Mg PO HS TAKES 5 (300MG) CAPSULES Co Q-10 (Ubidecarenone) 200 Mg Capsule 200 Mg PO DAILY TAKEA ALONG WITH 100MG CAPSULE FOR A TOTAL DAILY DOSE OF 300MG Promethazine Tablet (Promethazine HCl) 25 Mg Tablet 25 Mg PO Q6H PRN Livalo (Pitavastatin Calcium) 4 Mg Tablet 4 Mg PO HS Baclofen 10 Mg Tablet 10 Mg PO TID PRN Montelukast Sodium 10 Mg Tablet 10 Mg PO HS Co Q-10 (Ubidecarenone) 100 Mg Capsule 100 Mg PO DAILY TAKES ALONG WITH 200MG CAPSULE FOR A TOTAL DAILY DOSE OF 300MG Assessment/Pt Instructions Dr Cartagena in photo lab specialist Discharge Planning: <30 minutes discharge planning Discharge Instructions Discharge Diet: ADA Diet, Cardiac Diet Activity as Tolerated: Yes Discharge Physical Examination Vital Signs Vital Signs Date Time Temp Pulse Resp B/P (MAP) Pulse Ox O2 Delivery O2 Flow Rate FiO2 06/09/19 08:53 Room Air 06/09/19 07:43 36.1 102 20 134/83 (100) 95 06/08/19 16:50 5 General Appearance: No Apparent Distress, WD/WN, Chronically ill Respiratory: Chest Non Tender, Lungs Clear, Normal Breath Sounds, No Accessory Muscle Use, No Respiratory Distress Cardiovascular: Regular Rate, Rhythm, No Edema, No Gallop, No JVD, No Murmur, Normal Peripheral Pulses Neurologic/Psychiatric: Alert, Oriented x3, No Motor/Sensory Deficits, Normal Mood/Affect Allergies: Coded Allergies: No Known Drug Allergies (Unverified , 11/21/18) Discharge Summary Date of Admission Jun 08, 2019 at 11:15 Date of Discharge Discharge Date: Jun 09, 2019 Admission Diagnosis Assessment: Chest pain w/o evidence of ACS Recent ID s/p stents x 2 separate caths Titi Núñez and Osiel HTN HLP RIAZ non-compliant with biPAP consulting Dr Núñez CRI DM OOC managed by Dr Finnegan [facility] Spinal disease Chronic pain Plan: Nathaniel Mahan Bailey consultations are appreciated Discharge Diagnosis (1) Chest pain Status: Acute Qualifiers: Qualified Codes: R07.9 - Chest pain, unspecified (2) Stented coronary artery (3) Renal insufficiency (4) Chronic pain Status: Chronic (5) CAD (coronary artery disease) (6) Anxiety Status: Acute (7) IDDM (insulin dependent diabetes mellitus) Status: Chronic (8) Type 2 diabetes mellitus Status: Acute (9) RIAZ (obstructive sleep apnea) Clinical Quality Measures AMI/AHF: ASA po Prior to arrival: Yes DVT/VTE Risk/Contraindication: Risk Factor Score Per Nursin RFS Level Per Nursing on Admit: 4+=Very High PAT GONSALEZ DO Jun 09, 2019 09:54
== END 2019-06-09 13:00 | disposition home or self-care (01) ==
LOC: EDUNIT# 08:16 → ER 08:17 → CSD 11:15
PROVIDERS: ADMIT Internal Medicine; ATTEND Internal Medicine
DX: K29.70 Gastritis, unspecified, without bleeding (principal); K21.0 Gastro-esophageal reflux disease with esophagitis; I12.9 Hypertensive chronic kidney disease with stage 1 through stage 4 chronic kidney disease, or unspecified chronic kidney disease; I25.10 Atherosclerotic heart disease of native coronary artery without angina pectoris; I25.2 Old myocardial infarction; E11.40 Type 2 diabetes mellitus with diabetic neuropathy, unspecified; E78.5 Hyperlipidemia, unspecified; E11.22 Type 2 diabetes mellitus with diabetic chronic kidney disease; E78.00 Pure hypercholesterolemia, unspecified; E66.9 Obesity, unspecified; G89.29 Other chronic pain; G47.33 Obstructive sleep apnea (adult) (pediatric); G43.909 Migraine, unspecified, not intractable, without status migrainosus; M54.9 Dorsalgia, unspecified; N18.9 Chronic kidney disease, unspecified; M19.90 Unspecified osteoarthritis, unspecified site; F32.9 Major depressive disorder, single episode, unspecified; F41.9 Anxiety disorder, unspecified; F17.290 Nicotine dependence, other tobacco product, uncomplicated; Z79.4 Long term (current) use of insulin; Z79.82 Long term (current) use of aspirin; Z79.899 Other long term (current) drug therapy; Z68.37 Body mass index [BMI] 37.0-37.9, adult; Z90.89 Acquired absence of other organs; Z82.49 Family history of ischemic heart disease and other diseases of the circulatory system
CPT/HCPCS: 36415; 71045; 80053; 80061; 82962; 83735; 83874; 83880; 84484; 85025; 85610; 85730; 93005; 93041; 96374; 96375

== ENCOUNTER 2019-08-08 07:50 | Outpatient (RCR) | payer MEDICARE, OTHER ==
[~2019-08-08 07:50] MED LIST changes: +ACHD5005 PO; -HYDR-3812 PO; +MAGN400T39 PO; -MONT10TA24 PO; +MONT10TA26 PO; +PANT40TA2 PO
== END 2019-08-14 | disposition home or self-care (01) ==
LOC: CR 07:50
PROVIDERS: ATTEND Internal Medicine Cardiovascular Disease
DX: Z48.812 Encounter for surgical aftercare following surgery on the circulatory system (principal); Z95.5 Presence of coronary angioplasty implant and graft
CPT/HCPCS: 93798

== ENCOUNTER → 2019-09-05 | Outpatient (CLI) | payer MEDICARE, OTHER | LOC: LAB 15:14 | PROVIDERS: ATTEND Internal Medicine Cardiovascular Disease | DX: R07.9 Chest pain, unspecified (principal) | CPT/HCPCS: 36415; 84484 ==

== ENCOUNTER 2019-09-19 11:30 | Observation (INO) | payer MEDICARE, OTHER ==
[~2019-09-19] VITALS: Ht 180.3 cm; Wt 128.6 kg
[2019-09-19] MEDS: NITROGLYCERIN 0.4 MG SL TABS BTL 25'S SL PRN ×2 (11:43→12:15)
[2019-09-19 11:45] LABS: BASOPHILS # (AUTO) 0.1 10^3/uL (0.0-0.1); BASOPHILS % (AUTO) 1 % (0-10); EOSINOPHILS # (AUTO) 0.4 10^3/uL (0.0-0.3); EOSINOPHILS % (AUTO) 4 % (0-10); HEMATOCRIT 45 % (40-54); HEMOGLOBIN 15.6 G/DL (13.3-17.7); LYMPHOCYTES # (AUTO) 1.8 X 10^3 (1.0-4.0); LYMPHOCYTES % (AUTO) 21 % (12-44); MEAN CORPUSCULAR HEMOGLOBIN 32 PG (25-34); MEAN CORPUSCULAR HGB CONC 34 G/DL (32-36); MEAN CORPUSCULAR VOLUME 93 FL (80-99); MEAN PLATELET VOLUME 11.3 FL (7.4-10.4); MONOCYTES % (AUTO) 11 % (0-12); NEUTROPHILS # (AUTO) 5.5 X 10^3 (1.8-7.8); NEUTROPHILS % (AUTO) 63 % (42-75); PLATELET COUNT 189 10^3/uL (130-400); RED CELL DISTRIBUTION WIDTH 13.2 % (10.0-14.5); WHITE BLOOD COUNT 8.7 10^3/uL (4.3-11.0)
[2019-09-19] MEDS ORDERED: ASPIRIN 81 MG CHEW (CHILDREN'S ASA) PO ONE (11:45)
--- NOTE | 2019-09-19 11:55 | Diagnostic Imaging Report ---
EXAMINATION: Chest 1 view. HISTORY: Chest pain. COMPARISON: 06/08/2019. FINDINGS: The lungs are clear without edema or pneumonia. No pleural effusion or pneumothorax. Heart size is normal. IMPRESSION: Clear lungs. Dictated by: Dictated on workstation # [id number]
--- OUTSIDE RECORDS SUMMARY | 2019-09-19 11:55 | XMS REPORT | Clinical Summary ---
Author Author [facility] Organization [facility] Address Unknown Phone Unavailable Care Team Providers Care Barber Apprentice Name Role Phone PCP Unavailable Source Comments Some departments are not documenting in the electronic medical record. If you d o not see the information that you expected, contact Release of Information in [facility] Pursuit Management Information Management department at [phone] for further assistan ce in locating additional records.[facility] Allergies Not on File Medications Not [...] Health Maintenance Due Date Last Done Comments HIV SCREENING 12/07/1979 DTAP/TDAP VACCINES (1 - 1982 Tdap) HEPATITIS C SCREENING 1982 PHYSICAL (COMPREHENSIVE) 1982 EXAM COLORECTAL CANCER 2014 SCREENING SHINGLES RECOMBINANT 2014 VACCINE (1 of 2) INFLUENZA VACCINE 02/23/2020 Results Not on filefrom Last 3 Months
[2019-09-19 11:57] LABS: POTASSIUM 4.4 MMOL/L (3.6-5.0)
--- OUTSIDE RECORDS SUMMARY | 2019-09-19 11:58 | XMS REPORT | Continuity of Care Document ---
Author Organization Unknown Address Unknown Phone Unavailable Allergies Active Description Code Type Severity Reaction Onset Reported/Identified Relationship to Patient Clinical Status Yes No Known Drug Allergies [id number] Drug Allergy Unknown N/A 11/21/2018 Medications There is no data. 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 05/31/2011 Ot 327.23 OBS TRUCTIVE SLEEP APNEA (ADULT) (PEDIATR 03/06/2012 Ot 724.2 LUMBAGO 03/06/2012 Ot 724.3 SCIA PEDRO 09/24/2012 LUCI SPARKS DO Ot 250.00 DIAB [...] DIEHL DO Ot 414.01 CORONARY ATHEROSCLEROSIS OF [place] CORON 12/08/2014 LIDIA DIEHL DO Ot 530.81 [...] 01/18/2015 LIDIA DIEHL DO Ot 568.0 PERITONEAL CODXSCMFN-BYTC-IP/INF 01/18/2015 LIDIA DIEHL DO Ot 585.2 CHRONIC KIDNEY DISEASE, STAGE II (MILD) 01/18/2015 LIDIA DIEHL DO Ot V12.71 PERSONAL HISTORY OF PEPTIC ULCER DISEASE 01/18/2015 LIDIA DIEHL DO, Ot V12.72 PERSONAL HISTORY OF COLONIC POLYPS [...] DIEHL DO, Ot V72.63 01/31/2015 LIDIA DIEHL DO, Ot V74.8 04/12/2015 LIDIA DIEHL DO Ot [...] 04/09/2016 Ot 786.2 COUGH 04/09/2016 Ot 959.3 ELB/ FOREARM/WRST INJ NOS 04/09/2016 Ot E000.8 OT ER EXTERNAL CAUSE STATUS 04/09/2016 Ot E885.9 FAL L FROM SLIPPING, TRIPPING, OR STUMBLI 04/09/2016 Ot 719.43 DAMIAN NT PAIN- FOREARM 04/09/2016 Ot 959.3 ELB/ FOREARM/WRST INJ NOS 04/09/2016 Ot E000.8 OT ER EXTERNAL CAUSE STATUS 04/09/2016 Ot E849.0 ACC IDENT IN HOME 04/09/2016 Ot E888.9 FAL L NOS 04/09/2016 LUCI SPARKS DO Ot 786.50 CHEST PAIN NOS 04/09/2016 LUCI [...] W CHR KD ST 04/09/2016 NATALYA LYNCH, AHMED S Ot 581.9 NEPHROTIC SYNDROME NOS 04/09/2016 NATALYA LYNCH, HILDA Alcaraz Ot 583.81 NEPHRITIS NOS IN OTH DIS 04/09/2016 NATALYA LYNCH, HILDA Alcaraz Ot 585.2 CHRONIC KIDNEY DISEASE, STAGE II (MILD) 04/09/2016 LIDIA DIEHL DO Ot 553.20 VENTRAL HERNIA NOS 04/09/2016 LIDIA DIEHL DO Ot V72.63 PRE-PROCEDURAL LABORATORY EXAMINATION 04/09/2016 FAZALLIDIA MORALES DO Ot V74.8 SCREEN-BACTERIAL DIS NEC 04/09/2016 FAZALLIDIA MORALES DO Ot 787.3 FLATUL/ERUCTAT/GAS PAIN 04/09/2016 LIDIA [...] MELLITUS WITHOUT COMPLIC 02/13/2017 ALEJANDRO LYNCH, TALITA Ot I 10 ESSENTIAL (PRIMARY) HYPERTENSION 02/13/2017 ALEJANDRO LYNCH, TALITA [...] LUCI Graff Ot J98.01 ACUTE BRONCHOSPASM 07/20/2017 YOONDER DO, LUCI Graff Ot M06.9 RHEUMATOID ARTHRITIS, UNSPECIFIED 07/20/2017 TASHALENDER DO, LUCI Graff Ot M10.9 GOUT, UNSPECIFIED 07/20/2017 GELLENDER DO, LUCI Graff Ot M19.91 PRIMARY OSTEOARTHRITIS, UNSPECIFIED SITE 07/20/2017 YOONDER DO, LUCI Graff Ot M54.9 DORSALGIA, UNSPECIFIED 07/20/2017 GELLENDER DO, LUCI Graff Ot M79.7 FIBROMYALGIA 07/20/2017 TASHALENDER DO, LUCI Graff Ot T38.0X5A ADVERSE EFFECT OF GLUCOCORT/SYNTH ANALOG 07/20/2017 TASHALENDER DO, LUCI Graff Ot Z79.4 SNF (CURRENT) USE OF INSULIN 07/20/2017 TASHALENDER DO, LUCI Graff Ot Z79.52 BASKET BOTTOM MACHINE OPERATOR (CURRENT) USE OF SYSTEMIC STER 07/20/2017 TASHALENDER DO, LUCI Graff Ot Z86.010 PERSONAL HISTORY OF COLONIC POLYPS 07/20/2017 BRIDGER STEPHENSON, LUCI Graff Ot Z87.442 PERSONAL HISTORY OF URINARY CALCULI 07/29/2017 GONSALEZ , IRINEO Ot E04.1 NONTOXIC SINGLE THYROID NODULE 07/29/2017 WALLACE STEPHENSON, IRINEO Ot I25.10 ATHSCL HEART DISEASE OF [place] CORONARY 07/29/2017 GONSALEZ , IRINEO Ot J15.20 PNEUMONIA DUE TO STAPHYLOCOCCUS, UNSPECI 07/29/2017 WALLACE STEPHENSON, IRINEO Ot K76.0 FATTY (CHANGE OF) LIVER, NOT ELSEWHERE C 08/05/2017 BRIDGER STEPHENSONLUCI Ot 786.50 CHEST PAIN NOS 08/05/2017 BRIDGRE STEPHENSON, LUCI Graff Ot 959.3 ELB/FOREARM/WRST INJ NOS 08/05/2017 BRIDGER STEPHENSON, LUCI Graff Ot E000.8 OTHER EXTERNAL CAUSE STATUS 08/05/2017 BRIDGER STEPHENSONLUCI Ot E888.9 FALL NOS 08/05/2017 BRIDGER STEPHENSON, LUCI Graff Ot 959.7 LOWER LEG INJURY NOS 08/05/2017 [...] CHRONIC KIDNEY DISEASE, STAGE II (MILD) 08/05/2017 FAZALLIDIA MORALES DO Ot 553.20 VENTRAL HERNIA NOS 08/05/2017 FAZALLIDIA MORALES DO Ot V72.63 PRE-PROCEDURAL LABORATORY EXAMINATION 08/05/2017 FAZALLIDIA MORALES DO Ot V74.8 SCREEN-BACTERIAL DIS NEC 08/05/2017 FAZALLIDIA MORALES DO Ot 787.3 FLATUL/ERUCTAT/GAS PAIN 08/05/2017 FAZALLIDIA MORALES DO Ot V16.0 FAMILY HX-GI MALIGNANCY 08/05/2017 FAZALLIDIA MORALES DO Ot V72.84 EXAM PRE-OPERATIVE NOS 08/05/2017 LIDIA DIEHL DO Ot 585.2 CHRONIC KIDNEY DISEASE, STAGE II (MILD) 08/05/2017 FAZALLIDIA MORALES DO Ot V72.63 PRE-PROCEDURAL LABORATORY EXAMINATION 08/05/2017 FAZALLIDIA MORALES DO Ot V74.8 SCREEN-BACTERIAL DIS NEC 08/05/2017 LIDIA DIEHL DO Ot K25.9 GASTRIC ULCER, UNSP ACUTE OR CHRONIC, 08/05/2017 FAZALLIDIA MORALES DO Ot Z01.818 ENCOUNTER FOR OTHER PREPROCEDURAL EXAMIN 08/05/2017 LIDIA DIEHL DO Ot K25.9 GASTRIC ULCER, UNSP ACUTE OR CHRONIC, 08/05/2017 FAZALLIDIA MORALES DO Ot Z01.818 ENCOUNTER FOR OTHER PREPROCEDURAL EXAMIN 08/05/2017 FAZALLIDIA MORALES DO Ot R10.32 LEFT LOWER QUADRANT PAIN 08/05/2017 LIDIA DIEHL DO Ot R10.9 UNSPECIFIED ABDOMINAL PAIN 08/05/2017 LUCI SPARKS DO Ot K57.90 DVRTCLOS OF INTEST, PART UNSP, W/O PERF 08/05/2017 LUCI SPARKS DO Ot N20.0 CALCULUS OF KIDNEY 08/05/2017 IRINEO GONSALEZ DO Ot E04.1 NONTOXIC SINGLE THYROID NODULE 08/05/2017 IRINEO GONSALEZ DO Ot I25.10 ATHSCL HEART DISEASE OF [place] CORONARY 08/05/2017 IRINEO GONSALEZ DO Ot J15.20 PNEUMONIA DUE TO STAPHYLOCOCCUS, UNSPECI 08/05/2017 IRINEO GONSALEZ DO Ot K76.0 FATTY (CHANGE OF) LIVER, NOT ELSEWHERE C 08/06/2017 IRINEO GONSALEZ DO Ot E04.2 NONTOXIC MULTINODULAR GOITER 08/14/2017 BIANCA CARR DO Ot J18. 9 PNEUMONIA, UNSPECIFIED ORGANISM 08/14/2017 BIANCA CARR DO Ot R06. 00 DYSPNEA, UNSPECIFIED 08/14/2017 BIANCA CARR DO Ot R91. 8 OTHER NONSPECIFIC ABNORMAL FINDING OF [place] 08/14/2017 BIANCA CARR DO, Ot J18. 9 PNEUMONIA, UNSPECIFIED ORGANISM 08/14/2017 BIANCA CARR DO Ot R06. 00 DYSPNEA, UNSPECIFIED 08/14/2017 BIANCA CARR DO Ot R91. 8 OTHER NONSPECIFIC ABNORMAL FINDING OF [place] 08/17/2017 BIANCA CARR DO, Ot J18. 9 PNEUMONIA, UNSPECIFIED ORGANISM 08/17/2017 BIANCA CARR DO Ot R06. 00 DYSPNEA, UNSPECIFIED 08/17/2017 BIANCA CARR DO Ot R91. 8 OTHER NONSPECIFIC ABNORMAL FINDING OF [place] 08/17/2017 BIANCA CARR DO, Ot J18. 9 PNEUMONIA, UNSPECIFIED ORGANISM 08/17/2017 BIANCA CARR DO Ot R06. 00 DYSPNEA, UNSPECIFIED 08/17/2017 BIANCA CARR DO Ot R91. 8 OTHER NONSPECIFIC ABNORMAL FINDING OF [place] 08/17/2017 BIANCA CARR DO Ot Z01.811 ENCOUNTER FOR PREPROCEDURAL RESPIRATORY 08/17/2017 AMANDA PRINCE APRN Ot G47.30 SLEEP APNEA, UNSPECIFIED 08/18/2017 IRINEO GONSALEZ DO Ot E04.1 NONTOXIC SINGLE THYROID NODULE 08/18/2017 IRINEO GONSALEZ DO Ot I25.10 ATHSCL HEART DISEASE OF [place] CORONARY 08/18/2017 IRINEO GONSALEZ DO Ot J15.20 PNEUMONIA DUE TO STAPHYLOCOCCUS, UNSPECI 08/18/2017 IRINEO GONSALEZ DO Ot K76.0 FATTY (CHANGE OF) LIVER, NOT ELSEWHERE C 08/18/2017 BIANCA CARR DO Ot J18. 9 PNEUMONIA, UNSPECIFIED ORGANISM 08/18/2017 BIANCA CARR DO Ot R06. 00 DYSPNEA, UNSPECIFIED 08/18/2017 BIANCA CARR DO Ot R91. 8 OTHER NONSPECIFIC ABNORMAL FINDING OF [place] 08/18/2017 [...] OF [place] 08/21/2017 BIANCA CARR DO Ot G25. 61 DRUG INDUCED TICS 08/21/2017 BIANCA CARR DO Ot G47. 33 OBSTRUCTIVE SLEEP APNEA (ADULT) (PEDIATR 08/21/2017 BIANCA CARR DO Ot J18. 9 PNEUMONIA, UNSPECIFIED ORGANISM 08/21/2017 BIANCA CARR DO Ot K21. 9 GASTRO-ESOPHAGEAL REFLUX DISEASE WITHOUT 08/21/2017 BIANCA CARR DO Ot R06. 00 DYSPNEA, UNSPECIFIED 08/21/2017 BIANCA CARR DO Ot R91. 8 OTHER NONSPECIFIC ABNORMAL FINDING OF [place] 08/21/2017 BIANCA CARR DO Ot Z79.899 OTHER SNF (CURRENT) DRUG THERAPY 08/21/2017 IRINEO GONSALEZ DO Ot E04.1 NONTOXIC SINGLE THYROID NODULE 08/21/2017 IRINEO GONSALEZ DO Ot I25.10 ATHSCL HEART DISEASE OF [place] CORONARY 08/21/2017 IRINEO GONSALEZ DO Ot J15.20 PNEUMONIA DUE TO STAPHYLOCOCCUS, UNSPECI 08/21/2017 GONSALEZ DO, IRINEO Ot K76.0 FATTY (CHANGE OF) LIVER, NOT ELSEWHERE C 08/21/2017 BIANCA CARR DO Ot G25. 61 DRUG INDUCED TICS 08/21/2017 BIANCA CARR DO Ot G47. 33 OBSTRUCTIVE SLEEP APNEA (ADULT) (PEDIATR 08/21/2017 BIANCA CARR DO Ot J18. 9 PNEUMONIA, UNSPECIFIED ORGANISM 08/21/2017 BIANCA CARR DO Ot K21. 9 GASTRO-ESOPHAGEAL REFLUX DISEASE WITHOUT 08/21/2017 BIANCA CARR DO Ot R06. 00 DYSPNEA, UNSPECIFIED 08/21/2017 BIANCA CARR DO Ot R91. 8 OTHER NONSPECIFIC ABNORMAL FINDING OF [place] 08/21/2017 BIANCA CARR DO Ot Z79.899 OTHER BASKET BOTTOM MACHINE OPERATOR (CURRENT) DRUG THERAPY 08/25/2017 GONSALEZ DO, IRINEO Ot R05 COUGH 08/27/2017 GONSALEZ DO, IRINEO Ot R05 COUGH 08/27/2017 GONSALEZ DO, IRINEO Ot E04.2 NONTOXIC MULTINODULAR GOITER 09/01/2017 GONSALEZ DO, IRINEO Ot E04.2 NONTOXIC MULTINODULAR GOITER 09/11/2017 BIANCA CARR DO Ot G25. 61 DRUG INDUCED TICS 09/11/2017 BIANCA CARR DO Ot G47. 33 OBSTRUCTIVE SLEEP APNEA (ADULT) (PEDIATR 09/11/2017 BIANCA CARR DO Ot J18. 9 PNEUMONIA, UNSPECIFIED ORGANISM 09/11/2017 BIANCA CARR DO Ot K21. 9 GASTRO-ESOPHAGEAL REFLUX DISEASE WITHOUT 09/11/2017 BIANCA CARR DO Ot R06. 00 DYSPNEA, UNSPECIFIED 09/11/2017 BIANCA CARR DO Ot R91. 8 OTHER NONSPECIFIC ABNORMAL FINDING OF [place] 09/11/2017 BIANCA CARR DO Ot Z79.899 OTHER SNF (CURRENT) DRUG THERAPY 09/11/2017 BIANCA CARR DO Ot G25. 61 DRUG INDUCED TICS 09/11/2017 BIANCA CARR DO Ot G47. 33 OBSTRUCTIVE SLEEP APNEA (ADULT) (PEDIATR 09/11/2017 BIANCA CARR DO Ot J18. 9 PNEUMONIA, UNSPECIFIED ORGANISM 09/11/2017 BIANCA CARR DO Ot K21. 9 GASTRO-ESOPHAGEAL REFLUX DISEASE WITHOUT 09/11/2017 BIANCA CARR DO Ot R06. 00 DYSPNEA, UNSPECIFIED 09/11/2017 BIANCA CARR DO Ot R91. 8 OTHER NONSPECIFIC ABNORMAL FINDING OF [place] 09/11/2017 BIANCA CARR DO Ot Z79.899 OTHER BASKET BOTTOM MACHINE OPERATOR (CURRENT) DRUG THERAPY 09/11/2017 YADIRA PRINCEINE Shoaib TONG SETTER Ot G25.81 RESTLESS LEGS SYNDROME 09/11/2017 YADIRA PRINCEINE E TONG SETTER Ot J18.9 PNEUMONIA, UNSPECIFIED ORGANISM 09/11/2017 YADIRA PRINCEINE E TONG SETTER Ot J98.11 ATELECTASIS 09/11/2017 AMANDA PRINCE E TONG SETTER Ot K21.9 GASTRO-ESOPHAGEAL REFLUX DISEASE WITHOUT 09/11/2017 YADIRA PRINCEINE E TONG SETTER Ot R91.8 OTHER NONSPECIFIC ABNORMAL FINDING OF [place] 09/15/2017 AMANDA PRINCE TONG SETTER Ot G25.81 RESTLESS LEGS SYNDROME 09/15/2017 AMANDA PRINCE E TONG SETTER Ot J18.9 PNEUMONIA, UNSPECIFIED ORGANISM 09/15/2017 YADIRA PRINCEINE E TONG SETTER Ot J98.11 ATELECTASIS 09/15/2017 YADIRA PRINCEINE E TONG SETTER Ot K21.9 GASTRO-ESOPHAGEAL REFLUX DISEASE WITHOUT 09/15/2017 YADIRA PRINCEINE E TONG SETTER Ot R91.8 OTHER NONSPECIFIC ABNORMAL FINDING OF [place] 09/17/2017 YADIRA PRINCEINE E TONG SETTER Ot G25.81 RESTLESS LEGS SYNDROME 09/17/2017 YADIRA PRINCEINE E TONG SETTER Ot G47.30 SLEEP APNEA, UNSPECIFIED 09/17/2017 SURESH AMANDA E TONG SETTER Ot G25.81 RESTLESS LEGS SYNDROME 09/17/2017 YADIRA PRINCEINE E TONG SETTER Ot G47.30 SLEEP APNEA, UNSPECIFIED 09/22/2017 AMARILIS LYNCH, JORGE Dewey Ot E11.9 TYPE 2 DIABETES MELLITUS WITHOUT COMPLIC 09/22/2017 AMARILIS LYNCH, JORGE Dewey Ot E78.00 PURE HYPERCHOLESTEROLEMIA, UNSPECIFIED 09/22/2017 JORGE OLMOS MD Ot F32.9 MAJOR DEPRESSIVE DISORDER, SINGLE EPISOD 09/22/2017 JORGE OLMOS MD, Ot F41.9 ANXIETY DISORDER, UNSPECIFIED 09/22/2017 JORGE OLMOS MD, Ot G43.909 MIGRAINE, UNSP, NOT INTRACTABLE, WITHOUT 09/22/2017 JORGE OLMOS MD, Ot G47.30 SLEEP APNEA, UNSPECIFIED 09/22/2017 JORGE OLMOS MD Ot I10 ESSENTIAL (PRIMARY) HYPERTENSION 09/22/2017 JORGE OLMOS MD, Ot M06.9 RHEUMATOID ARTHRITIS, UNSPECIFIED 09/22/2017 JORGE OLMOS MD, Ot M10.9 GOUT, UNSPECIFIED 09/22/2017 JORGE OLMOS MD, Ot M54.5 LOW BACK PAIN 09/22/2017 JORGE OLMOS MD, Ot R10.31 RIGHT LOWER QUADRANT PAIN 09/22/2017 JORGE OLMOS MD, Ot Z79.4 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 09/22/2017 JORGE OLMOS [...] M06.9 RHEUMATOID ARTHRITIS, UNSPECIFIED 09/24/2017 JORGE OLMOS MD Ot M10.9 GOUT, UNSPECIFIED 09/24/2017 JORGE OLMOS MD Ot M54.5 LOW BACK PAIN 09/24/2017 JORGE OLMOS MD Ot R10.31 RIGHT LOWER QUADRANT PAIN 09/24/2017 JORGE OLMOS MD Ot Z79.4 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 09/24/2017 JORGE OLMOS [...] INITIA 10/29/2017 BERNIE OLIVER MD P Ot E04 .2 NONTOXIC MULTINODULAR GOITER 10/29/2017 BERNIE OLIVER MD Ot E04 .2 NONTOXIC MULTINODULAR GOITER 10/30/2017 YOLI MALONE Ot S99.921A UNSPECIFIED INJURY OF RIGHT FOOT, INITIA 11/03/2017 BERNIE OLIVER MD P Ot E04 .2 NONTOXIC MULTINODULAR GOITER 11/19/2017 BERNIE OLIVER MD Ot E04 .2 NONTOXIC MULTINODULAR GOITER 11/24/2017 BERNIE OLIVER MD Ot E04 .2 NONTOXIC MULTINODULAR GOITER 01/13/2018 MOISÉS LOUIS MD, Ot Z01.81 8 ENCOUNTER FOR OTHER PREPROCEDURAL EXAMIN 01/20/2018 MOISÉS LOUIS MD Ot D12.3 BENIGN NEOPLASM OF TRANSVERSE COLON 01/20/2018 MOISÉS LOUIS MD Ot D12.4 BENIGN NEOPLASM OF DESCENDING COLON 01/20/2018 MOISÉS LOUIS MD Ot E11.9 TYPE 2 DIABETES MELLITUS WITHOUT COMPLIC 01/20/2018 MOISÉS LOUIS MD Ot E78.00 PURE HYPERCHOLESTEROLEMIA, UNSPECIFIED 01/20/2018 MOISÉS LOUIS MD Ot F17.22 0 NICOTINE DEPENDENCE, CHEWING TOBACCO, UN 01/20/2018 MOISÉS LOUIS MD Ot G62.9 POLYNEUROPATHY, UNSPECIFIED 01/20/2018 MOISÉS LOUIS MD Ot I10 ESSENTIAL (PRIMARY) HYPERTENSION 01/20/2018 MOISÉS LOUIS MD Ot M10.9 GOUT, UNSPECIFIED 01/20/2018 MOISÉS LOUIS MD Ot Z79.89 9 OTHER SNF (CURRENT) DRUG THERAPY 01/20/2018 MOISÉS LOUIS MD Ot Z80.0 FAMILY HISTORY OF MALIGNANT NEOPLASM OF 01/20/2018 MOISÉS LOUIS MD, Ot Z80.3 FAMILY HISTORY OF MALIGNANT NEOPLASM OF 01/20/2018 MOISÉS LOUIS MD Ot Z98.1 ARTHRODESIS STATUS 01/22/2018 MOISÉS LOUIS MD, Ot D12.3 BENIGN NEOPLASM OF TRANSVERSE COLON 01/22/2018 MOISÉS LOUIS MD Ot D12.4 BENIGN NEOPLASM OF DESCENDING COLON 01/22/2018 OMISÉS LOUIS MD Ot E11.9 TYPE 2 DIABETES MELLITUS WITHOUT COMPLIC 01/22/2018 MOISÉS LOUIS MD Ot E78.00 PURE HYPERCHOLESTEROLEMIA, UNSPECIFIED 01/22/2018 MOISÉS LOUIS MD Ot F17.22 0 NICOTINE DEPENDENCE, CHEWING TOBACCO, UN 01/22/2018 MOISÉS LOUIS MD Ot G62.9 POLYNEUROPATHY, UNSPECIFIED 01/22/2018 MOISÉS LOUIS MD Ot I10 ESSENTIAL (PRIMARY) HYPERTENSION 01/22/2018 MOISÉS LOUIS MD Ot M10.9 GOUT, UNSPECIFIED 01/22/2018 MOISÉS LOUIS MD Ot Z79.89 9 OTHER BASKET BOTTOM MACHINE OPERATOR (CURRENT) DRUG THERAPY 01/22/2018 MOISÉS LOUIS MD Ot Z80.0 FAMILY HISTORY OF MALIGNANT NEOPLASM OF 01/22/2018 MOISÉS LOUIS MD Ot Z80.3 FAMILY HISTORY OF MALIGNANT NEOPLASM OF 01/22/2018 MOISÉS LOUIS MD Ot Z98.1 ARTHRODESIS STATUS 01/22/2018 SURESH, AMANDA E TONG SETTER Ot G47.30 SLEEP APNEA, UNSPECIFIED 01/28/2018 SURESH, AMANDA E TONG SETTER Ot G47.30 SLEEP APNEA, UNSPECIFIED 01/28/2018 SURESH, AMANDA E TONG SETTER Ot G47.33 OBSTRUCTIVE SLEEP APNEA (ADULT) (PEDIATR 01/28/2018 SURESH, AMANDA E TONG SETTER Ot Z78.9 OTHER SPECIFIED HEALTH STATUS 01/28/2018 SURESH, AMANDA E TONG SETTER Ot G47.33 OBSTRUCTIVE SLEEP APNEA (ADULT) (PEDIATR 01/28/2018 SURESH, AMANDA E TONG SETTER Ot Z78.9 OTHER SPECIFIED HEALTH STATUS 02/01/2018 MOISÉS LOUIS MD Ot D12.3 BENIGN NEOPLASM OF TRANSVERSE COLON 02/01/2018 MOISÉS LOUIS MD Ot D12.4 BENIGN NEOPLASM OF DESCENDING COLON 02/01/2018 MOISÉS LOUIS MD Ot E11.9 TYPE 2 DIABETES MELLITUS WITHOUT COMPLIC 02/01/2018 MOISÉS LOUIS MD Ot E78.00 PURE HYPERCHOLESTEROLEMIA, UNSPECIFIED 02/01/2018 MOISÉS LOUIS MD Ot F17.22 0 NICOTINE DEPENDENCE, CHEWING TOBACCO, UN 02/01/2018 MOISÉS LOUIS MD Ot G62.9 POLYNEUROPATHY, UNSPECIFIED 02/01/2018 MOISÉS LOUIS MD Ot I10 ESSENTIAL (PRIMARY) HYPERTENSION 02/01/2018 MOISÉS LOUIS MD, Ot M10.9 GOUT, UNSPECIFIED 02/01/2018 MOISÉS LOUIS MD, Ot Z79.89 9 OTHER BASKET BOTTOM MACHINE OPERATOR (CURRENT) DRUG THERAPY 02/01/2018 MOISÉS LOUIS MD, Ot Z80.0 FAMILY HISTORY OF MALIGNANT NEOPLASM OF 02/01/2018 MOISÉS LOUIS MD, Ot Z80.3 FAMILY HISTORY OF MALIGNANT NEOPLASM OF 02/01/2018 MOISÉS LOUIS MD, Ot Z98.1 ARTHRODESIS STATUS 03/15/2018 AMANDA PRINCE APRN Ot G47.33 OBSTRUCTIVE SLEEP APNEA (ADULT) (PEDIATR 03/30/2018 TASHALUCI CRUM DO Ot 786.50 CHEST PAIN NOS 03/30/2018 TASHARAFAELAPATTI LUCI STEPHENSON Ot 959.3 ELB/FOREARM/WRST INJ NOS 03/30/2018 TASHARAFAELAPATTI LUCI STEPHENSON Ot E000.8 OTHER EXTERNAL CAUSE STATUS 03/30/2018 BRIDGER LUCI STEPHENSON Ot E888.9 FALL NOS 03/30/2018 TASHARAFAELAPATTI LUCI STEPHENSON Ot 959.7 LOWER LEG INJURY NOS 03/30/2018 TASHARAFAELAPATTI LUCI STEPHENSON Ot E928.9 ACCIDENT NOS 03/30/2018 NATALYA LYNCH, HILDA Alcaraz Ot 250.40 DIAB W RENAL MANIFEST, TYPE II OR UNSPEC 03/30/2018 NATALYA LYNCH, HILDA Alcaraz Ot 272.4 HYPERLIPIDEMIA NEC/NOS 03/30/2018 NATALYA LYNCH, HILDA S Ot 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, BENIGN, W CHR KD ST 03/30/2018 NATALYA LYNCH, HILDA Alcaraz Ot 581.9 NEPHROTIC SYNDROME NOS 03/30/2018 NATALYA LYNCH, HILDA Alcaraz Ot 583.81 NEPHRITIS NOS IN OTH DIS 03/30/2018 NATALYA LYNCH, HILDA Alcaraz Ot 585.2 CHRONIC KIDNEY DISEASE, STAGE II (MILD) 03/30/2018 LIDIA DIEHL DO Ot 553.20 VENTRAL HERNIA NOS 03/30/2018 LIDIA DIEHL DO, Ot V72.63 PRE-PROCEDURAL LABORATORY EXAMINATION 03/30/2018 LIDIA DIEHL DO Ot V74.8 SCREEN-BACTERIAL DIS NEC 03/30/2018 LIDIA DIEHL DO Ot 787.3 FLATUL/ERUCTAT/GAS PAIN 03/30/2018 FAZAL LIDIA STEPHENSON Ot V16.0 FAMILY HX-GI MALIGNANCY 03/30/2018 LIDIA [...] DO Ot I25.10 ATHSCL HEART DISEASE OF [place] CORONARY 03/30/2018 IRINEO GONSALEZ DO Ot J15.20 PNEUMONIA DUE TO STAPHYLOCOCCUS, UNSPECI 03/30/2018 IRINEO GONSALEZ DO Ot K76.0 FATTY (CHANGE OF) LIVER, NOT ELSEWHERE C 03/30/2018 IRINEO GONSALEZ DO Ot E04.2 NONTOXIC MULTINODULAR GOITER 03/30/2018 BRUNO BIANCA STEPHENSON Ot G25. 61 DRUG INDUCED TICS 03/30/2018 BIANCA CARR DO Ot G47. 33 OBSTRUCTIVE SLEEP APNEA (ADULT) (PEDIATR 03/30/2018 BRUNO BIANCA STEPHENSON Ot J18. 9 PNEUMONIA, UNSPECIFIED ORGANISM 03/30/2018 BRUNOBIANCA RICHARD DO Ot K21. 9 GASTRO-ESOPHAGEAL REFLUX DISEASE WITHOUT 03/30/2018 BIANCA CARR DO Ot R06. 00 DYSPNEA, UNSPECIFIED 03/30/2018 BIANCA CARR DO Ot R91. 8 OTHER NONSPECIFIC ABNORMAL FINDING OF [place] 03/30/2018 BIANCA CARR DO Ot Z79.899 OTHER SNF (CURRENT) DRUG THERAPY 03/30/2018 AMANDA PRINCE APRN Ot G25.81 RESTLESS LEGS SYNDROME 03/30/2018 AMANDA PRINCE APRN Ot J18.9 PNEUMONIA, UNSPECIFIED ORGANISM 03/30/2018 AMANDA PRINCE APRN Ot J98.11 ATELECTASIS 03/30/2018 AMANDA PRINCE APRN Ot K21.9 GASTRO-ESOPHAGEAL REFLUX DISEASE WITHOUT 03/30/2018 AMANDA PRINCE APRN Ot R91.8 OTHER NONSPECIFIC ABNORMAL FINDING OF [place] 03/30/2018 BERNIE OLIVER MD Ot E04 .2 NONTOXIC MULTINODULAR GOITER 03/30/2018 AMANDA PRINCE APRN Ot J18.9 PNEUMONIA, UNSPECIFIED ORGANISM 03/30/2018 AMANDA PRINCE APRN Ot R91.8 OTHER NONSPECIFIC ABNORMAL FINDING OF [place] 03/30/2018 YOLI MALONEP Ot S99.921A UNSPECIFIED INJURY OF RIGHT FOOT, INITIA 03/30/2018 AMANDA PRINCE APRN Ot G47.33 OBSTRUCTIVE SLEEP APNEA (ADULT) (PEDIATR 04/01/2018 BERNIE OLIVER MD Ot E04 .2 NONTOXIC MULTINODULAR GOITER 04/02/2018 IVAN MONAHAN MD Ot E11 .9 TYPE 2 DIABETES MELLITUS WITHOUT COMPLIC 04/02/2018 IVAN MONAHAN MD Ot E78.00 PURE HYPERCHOLESTEROLEMIA, UNSPECIFIED 04/02/2018 IVAN MONAHAN MD, Ot F32 .9 MAJOR DEPRESSIVE DISORDER, SINGLE EPISOD 04/02/2018 IVAN MONAHAN MD, Ot F41 .9 ANXIETY DISORDER, UNSPECIFIED 04/02/2018 IVAN MONAHAN MD, Ot G43.909 MIGRAINE, UNSP, NOT INTRACTABLE, WITHOUT 04/02/2018 IVAN MONAHAN MD Ot G47.30 SLEEP APNEA, UNSPECIFIED 04/02/2018 IVAN MONAHAN MD Ot I10 ESSENTIAL (PRIMARY) HYPERTENSION 04/02/2018 IVAN MONAHAN MD, Ot M06 .9 RHEUMATOID ARTHRITIS, UNSPECIFIED 04/02/2018 IVAN MONAHAN MD, Ot M10 .9 GOUT, UNSPECIFIED 04/02/2018 IVAN MONAHAN MD Ot R10.33 PERIUMBILICAL PAIN 04/02/2018 IVAN MONAHAN MD, Ot Z79 .4 SNF (CURRENT) USE OF INSULIN 04/02/2018 IVAN MONAHAN MD Ot Z79.51 SNF (CURRENT) USE OF INHALED STERO 04/02/2018 IVAN MONAHAN MD, Ot Z80 .0 FAMILY HISTORY OF MALIGNANT NEOPLASM OF 04/02/2018 IVAN MONAHAN MD, Ot Z87.01 PERSONAL HISTORY OF PNEUMONIA (RECURRENT 04/02/2018 IVAN MONAHAN MD, Ot Z87.19 PERSONAL HISTORY OF OTHER DISEASES OF TH 04/02/2018 IVAN MONAHAN MD, Ot Z87.442 PERSONAL HISTORY OF URINARY CALCULI 04/02/2018 IVAN MONAHAN MD Ot Z90.89 ACQUIRED ABSENCE OF OTHER ORGANS 04/02/2018 IVAN MONAHAN MD Ot Z98.890 OTHER SPECIFIED POSTPROCEDURAL STATES 04/05/2018 MELODY LYNCH, BERNIE Reed Ot E04 .2 NONTOXIC MULTINODULAR GOITER 04/05/2018 IVAN MONAHAN MD Ot E11 .9 TYPE 2 DIABETES MELLITUS WITHOUT COMPLIC 04/05/2018 IVAN MONAHAN MD Ot E78.00 PURE HYPERCHOLESTEROLEMIA, UNSPECIFIED 04/05/2018 IVAN MONAHAN MD Ot F32 .9 MAJOR DEPRESSIVE DISORDER, SINGLE EPISOD 04/05/2018 IVAN MONAHAN MD, Ot F41 .9 ANXIETY DISORDER, UNSPECIFIED 04/05/2018 IVAN MONAHAN MD, Ot G43.909 MIGRAINE, UNSP, NOT INTRACTABLE, WITHOUT 04/05/2018 IVAN MONAHAN MD Ot G47.30 SLEEP APNEA, UNSPECIFIED 04/05/2018 IVAN MONAHAN MD Ot I10 ESSENTIAL (PRIMARY) HYPERTENSION 04/05/2018 IVAN MONAHAN MD, Ot M06 .9 RHEUMATOID ARTHRITIS, UNSPECIFIED 04/05/2018 IVAN MONAHAN MD Ot M10 .9 GOUT, UNSPECIFIED 04/05/2018 IVAN MONAHAN MD, Ot R10.33 PERIUMBILICAL PAIN 04/05/2018 IVAN MONAHAN MD Ot 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 04/05/2018 IVAN MONAHAN MD, Ot Z79.51 SNF (CURRENT) USE OF INHALED STERO 04/05/2018 IVAN MONAHAN MD, Ot Z80 .0 FAMILY HISTORY OF MALIGNANT NEOPLASM OF 04/05/2018 IVAN MONAHAN MD Ot Z87.01 PERSONAL HISTORY OF PNEUMONIA (RECURRENT 04/05/2018 IVAN MONAHAN MD, Ot Z87.19 PERSONAL HISTORY OF OTHER DISEASES OF TH 04/05/2018 IVAN MONAHAN MD Ot Z87.442 PERSONAL HISTORY OF URINARY [...] DISORDER 04/21/2018 MELODY LYNCH, BERNIE Reed Ot E04 .2 NONTOXIC MULTINODULAR GOITER 05/23/2018 WALLACE STEPHENSON IRINEO Ot A41.9 SEPSIS, UNSPECIFIED ORGANISM 05/23/2018 WALLACE STEPHENSON IRINEO Ot E03.9 HYPOTHYROIDISM, UNSPECIFIED 05/23/2018 WALLACE STEPHENSON IRINEO Ot E11.9 TYPE 2 DIABETES MELLITUS WITHOUT COMPLIC 05/23/2018 GONSALEZ DO, IRINEO Ot E78.00 PURE HYPERCHOLESTEROLEMIA, UNSPECIFIED 05/23/2018 GONSALEZ DO, IRINEO Ot E78.5 HYPERLIPIDEMIA, UNSPECIFIED 05/23/2018 GONSALEZ DO, IRINEO Ot E83.42 HYPOMAGNESEMIA 05/23/2018 GONSALEZ DO, IRINEO Ot F17.20 0 NICOTINE DEPENDENCE, UNSPECIFIED, UNCOMP 05/23/2018 GONSALEZ DO, IRINEO Ot F32.9 MAJOR DEPRESSIVE DISORDER, SINGLE EPISOD 05/23/2018 GONSALEZ DO, IRINEO Ot F41.9 ANXIETY DISORDER, UNSPECIFIED 05/23/2018 GONSALEZ DO, IRINEO Ot G43.90 9 MIGRAINE, UNSP, NOT INTRACTABLE, WITHOUT 05/23/2018 GONSALEZ DO, IRINEO Ot G89.4 CHRONIC PAIN SYNDROME 05/23/2018 GONSALEZ DO, IRINEO Ot I12.9 HYPERTENSIVE CHRONIC KIDNEY DISEASE W ST 05/23/2018 GONSALEZ DO, IRINEO Ot J10.00 FLU DUE TO OTH IDENT FLU VIRUS W UNSP TY 05/23/2018 GONSALEZ DO, IRINEO Ot J15.21 2 PNEUMONIA DUE TO METHICILLIN RESISTANT S 05/23/2018 [...] GONSALEZ DO, IRINEO Ot R09.02 HYPOXEMIA 05/23/2018 GONSALEZ DO, IRINEO Ot Z79.4 SNF (CURRENT) USE OF INSULIN 07/12/2018 AMANDA PRINCE APRN Ot G47.34 IDIO SLEEP RELATED NONOBSTRUCTIVE ALVEOL 07/12/2018 AMANDA PRINCE APRN Ot K76.0 FATTY (CHANGE OF) LIVER, NOT ELSEWHERE C 07/12/2018 AMANDA PRINCE TONG SETTER Ot R06.00 DYSPNEA, UNSPECIFIED 07/14/2018 AMANDA PRINCE TONG SETTER Ot J15.9 UNSPECIFIED BACTERIAL PNEUMONIA 07/20/2018 AMANDA PRINCE E TONG SETTER Ot J15.9 UNSPECIFIED BACTERIAL PNEUMONIA 08/04/2018 AMANDA PRINCE TONG SETTER Ot G47.34 IDIO SLEEP RELATED NONOBSTRUCTIVE ALVEOL 08/04/2018 AMANDA PRINCE E TONG SETTER Ot K76.0 FATTY (CHANGE OF) LIVER, NOT ELSEWHERE C 08/04/2018 AMANDA PRINCE E TONG SETTER Ot R06.00 DYSPNEA, UNSPECIFIED 08/06/2018 AMANDA PRINCE E TONG SETTER Ot G47.34 IDIO SLEEP RELATED NONOBSTRUCTIVE ALVEOL 08/06/2018 AMANDA PRINCE TONG SETTER Ot K76.0 FATTY (CHANGE OF) LIVER, NOT ELSEWHERE C 08/06/2018 AMANDA PRINCE TONG SETTER Ot R06.00 DYSPNEA, UNSPECIFIED 10/26/2018 AMANDA PRINCE TONG SETTER Ot G47.33 OBSTRUCTIVE SLEEP APNEA (ADULT) (PEDIATR 10/29/2018 YADIRA PRINCEINE E TONG SETTER Ot G47.33 OBSTRUCTIVE SLEEP APNEA (ADULT) (PEDIATR 10/30/2018 SURESHYADIRA LORENZOINE E TONG SETTER Ot G47.33 OBSTRUCTIVE SLEEP APNEA (ADULT) (PEDIATR 10/30/2018 YADIRA PRINCEINE E TONG SETTER Ot R06.00 DYSPNEA, UNSPECIFIED 10/30/2018 YADIRA PRINCEINE E TONG SETTER Ot Z78.9 OTHER SPECIFIED HEALTH STATUS 11/02/2018 AMANDA PRINCE TONG SETTER Ot G47.33 OBSTRUCTIVE SLEEP APNEA (ADULT) (PEDIATR 11/02/2018 AMANDA PRINCE E TONG SETTER Ot R06.00 DYSPNEA, UNSPECIFIED 11/02/2018 YADIRA PRINCEINE E TONG SETTER Ot Z78.9 OTHER SPECIFIED HEALTH STATUS 11/21/2018 ANGEL PACE Ot E11.9 TYPE 2 DIABETES MELLITUS WITHOUT COMPLIC 11/21/2018 AN[facility]EL PACE Ot E78.00 PURE HYPERCHOLESTEROLEMIA, UNSPECIFIED 11/21/2018 AN[place]EL PACE Ot F32.9 MAJOR DEPRESSIVE DISORDER, SINGLE EPISOD 11/21/2018 ANGEL PACE Ot F41.9 ANXIETY DISORDER, UNSPECIFIED 11/21/2018 ANGEL PACE Ot G43.909 MIGRAINE, UNSP, NOT INTRACTABLE, WITHOUT 11/21/2018 ANGEL PACE Ot G47.30 SLEEP APNEA, UNSPECIFIED 11/21/2018 ANGEL PACE Ot H92.02 OTALGIA, LEFT EAR 11/21/2018 ANGEL PACE Ot I 10 ESSENTIAL (PRIMARY) HYPERTENSION 11/21/2018 ANGEL PACE Ot J06.9 ACUTE UPPER RESPIRATORY INFECTION, UNSPE 11/21/2018 ANGEL PACE Ot M06.9 RHEUMATOID ARTHRITIS, UNSPECIFIED 11/21/2018 ANGEL PACE Ot M79.7 FIBROMYALGIA 11/21/2018 ANGEL PACE Ot Z79.4 SNF (CURRENT) USE OF INSULIN 11/21/2018 ANGEL PACE Ot Z80.0 FAMILY HISTORY OF MALIGNANT NEOPLASM OF 11/21/2018 ANGEL PACE Ot Z80.6 FAMILY HISTORY OF LEUKEMIA 11/21/2018 ANGEL PACE Ot Z86.011 PERSONAL HISTORY OF BENIGN NEOPLASM OF T 11/21/2018 ANGEL PACE Ot Z87.01 PERSONAL HISTORY OF PNEUMONIA (RECURRENT 11/21/2018 ANGEL PACE Ot Z87.19 PERSONAL HISTORY OF OTHER DISEASES OF TH 11/21/2018 ANGEL PACE Ot Z87.442 PERSONAL HISTORY OF URINARY CALCULI 11/21/2018 ANGEL PACE Ot Z90.49 ACQUIRED ABSENCE OF OTHER SPECIFIED PART 11/21/2018 ANGEL PACE Ot Z90.89 ACQUIRED ABSENCE OF OTHER ORGANS 11/23/2018 AN[place] Ot E11.9 TYPE 2 DIABETES MELLITUS WITHOUT COMPLIC 11/23/2018 ANGEL PACE Ot E78.00 PURE HYPERCHOLESTEROLEMIA, UNSPECIFIED 11/23/2018 AN[place]EL PACE Ot F32.9 MAJOR DEPRESSIVE DISORDER, SINGLE EPISOD 11/23/2018 ANGEL PACE Ot F41.9 ANXIETY DISORDER, UNSPECIFIED 11/23/2018 ANGEL PACE Ot G43.909 MIGRAINE, UNSP, NOT INTRACTABLE, WITHOUT 11/23/2018 ANGEL PACE Ot G47.30 SLEEP APNEA, UNSPECIFIED 11/23/2018 ANGEL PACE Ot H92.02 OTALGIA, LEFT EAR 11/23/2018 ANGEL PACE Ot I 10 ESSENTIAL (PRIMARY) HYPERTENSION 11/23/2018 AN[place]ACE Ot J06.9 ACUTE UPPER RESPIRATORY INFECTION, UNSPE 11/23/2018 AN[place]ACE Ot M06.9 RHEUMATOID ARTHRITIS, UNSPECIFIED 11/23/2018 ANGEL PACE Ot M79.7 FIBROMYALGIA 11/23/2018 ANGEL PACE Ot Z79.4 SNF (CURRENT) USE OF INSULIN 11/23/2018 ANGEL PACE Ot Z80.0 FAMILY HISTORY OF MALIGNANT NEOPLASM OF 11/23/2018 AN[place] PACE Ot Z80.6 FAMILY HISTORY OF LEUKEMIA 11/23/2018 ANGEL PACE Ot Z86.011 PERSONAL HISTORY OF BENIGN NEOPLASM OF T 11/23/2018 ANGEL [place]ACE Ot Z87.01 PERSONAL HISTORY OF PNEUMONIA (RECURRENT 11/23/2018 ANGEL PACE Ot Z87.19 PERSONAL HISTORY OF OTHER DISEASES OF TH 11/23/2018 ANGEL PACE Ot Z87.442 PERSONAL HISTORY OF URINARY CALCULI 11/23/2018 ANGEL PACE Ot Z90.49 ACQUIRED ABSENCE OF OTHER SPECIFIED PART 11/23/2018 ANGEL PACE Ot Z90.89 ACQUIRED ABSENCE OF OTHER ORGANS 11/28/2018 ANGEL PACE Ot E11.9 TYPE 2 DIABETES MELLITUS WITHOUT COMPLIC 11/28/2018 ANGEL APCE Ot E78.00 PURE HYPERCHOLESTEROLEMIA, UNSPECIFIED 11/28/2018 AN[place] Ot F32.9 MAJOR DEPRESSIVE DISORDER, SINGLE EPISOD 11/28/2018 AN[place] Ot F41.9 ANXIETY DISORDER, UNSPECIFIED 11/28/2018 ANGEL PACE Ot G43.909 MIGRAINE, UNSP, NOT INTRACTABLE, WITHOUT 11/28/2018 ANGEL PACE Ot G47.30 SLEEP APNEA, UNSPECIFIED 11/28/2018 ANGEL PACE Ot H92.02 OTALGIA, LEFT EAR 11/28/2018 FARTUN PA, ANGEL L Ot I 10 ESSENTIAL (PRIMARY) HYPERTENSION 11/28/2018 ANGEL P[place] Ot J06.9 ACUTE UPPER RESPIRATORY INFECTION, UNSPE 11/28/2018 ANGEL P[place] Ot M06.9 RHEUMATOID ARTHRITIS, UNSPECIFIED 11/28/2018 ANGEL PACE Ot M79.7 FIBROMYALGIA 11/28/2018 ANGEL PACE Ot Z79.4 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 11/28/2018 ANGEL PACE Ot Z80.0 FAMILY HISTORY OF MALIGNANT NEOPLASM OF 11/28/2018 ANGEL PACE Ot Z80.6 FAMILY HISTORY OF LEUKEMIA 11/28/2018 ANGEL PACE Ot Z86.011 PERSONAL HISTORY OF BENIGN NEOPLASM OF T 11/28/2018 ANGEL PACE Ot Z87.01 PERSONAL HISTORY OF PNEUMONIA (RECURRENT 11/28/2018 ANG[facility] [place] Ot Z87.19 PERSONAL HISTORY OF OTHER DISEASES OF TH 11/28/2018 AN[place] Ot Z87.442 PERSONAL HISTORY OF URINARY CALCULI 11/28/2018 AN[place] Ot Z90.49 ACQUIRED ABSENCE OF OTHER SPECIFIED PART 11/28/2018 AN[place] Ot Z90.89 ACQUIRED ABSENCE OF OTHER ORGANS 03/31/2019 BERNIE OLIVER MD Ot E04 .2 NONTOXIC MULTINODULAR GOITER 04/04/2019 BERNIE OLIVER MD, Ot E04 .2 NONTOXIC MULTINODULAR GOITER 04/13/2019 SONIA KHAN MD, Ot E11. 40 TYPE 2 DIABETES MELLITUS WITH DIABETIC N 04/13/2019 SONIA KHAN MD, Ot E11. 65 TYPE 2 DIABETES MELLITUS WITH HYPERGLYCE 04/13/2019 SONIA KHAN MD, Ot E66. 9 OBESITY, UNSPECIFIED 04/13/2019 SONIA KHAN MD, Ot E78. 00 PURE HYPERCHOLESTEROLEMIA, UNSPECIFIED 04/13/2019 SONIA KHAN MD, Ot E78. 5 HYPERLIPIDEMIA, UNSPECIFIED 04/13/2019 SONIA KHAN MD, Ot F32. 9 MAJOR DEPRESSIVE DISORDER, SINGLE EPISOD 04/13/2019 SONIA KHAN MD, Ot F41. 9 ANXIETY DISORDER, UNSPECIFIED 04/13/2019 SONIA KHAN MD, Ot G43.909 MIGRAINE, UNSP, NOT INTRACTABLE, WITHOUT 04/13/2019 SONIA KHAN MD Ot G47. 33 OBSTRUCTIVE SLEEP APNEA (ADULT) (PEDIATR 04/13/2019 BILL LYNCH, SONIA [place] Ot G89. 29 OTHER CHRONIC PAIN 04/13/2019 SONIA KHAN MD Ot I10 ESSENTIAL (PRIMARY) HYPERTENSION 04/13/2019 SONIA KHAN MD Ot I21. 4 NON-ST ELEVATION (NSTEMI) MYOCARDIAL INF 04/13/2019 SONIA KHAN MD Ot I25. 10 ATHSCL HEART DISEASE OF [place] CORONARY 04/13/2019 SONIA KHAN MD Ot I95. 9 HYPOTENSION, UNSPECIFIED 04/13/2019 SONIA KHAN MD, Ot J44. 9 CHRONIC OBSTRUCTIVE PULMONARY DISEASE, U 04/13/2019 SONIA KHAN MD, Ot K21. 9 GASTRO-ESOPHAGEAL REFLUX DISEASE WITHOUT 04/13/2019 SONIA KHAN MD Ot M06. 9 RHEUMATOID ARTHRITIS, UNSPECIFIED 04/13/2019 SONIA KHAN MD Ot M10. 9 GOUT, UNSPECIFIED 04/13/2019 SONIA KHAN MD Ot M19. 91 PRIMARY OSTEOARTHRITIS, UNSPECIFIED SITE 04/13/2019 SONIA KHAN MD Ot M79. 7 FIBROMYALGIA 04/13/2019 SONIA KHAN MD Ot R00. 0 TACHYCARDIA, UNSPECIFIED 04/13/2019 SONIA KHAN MD Ot Z68. 36 BODY MASS INDEX (BMI) 36.0-36.9, ADULT 04/13/2019 SONIA KHAN MD Ot Z79. 4 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 04/13/2019 SONIA KHAN MD Ot Z86.010 PERSONAL HISTORY OF COLONIC POLYPS 04/13/2019 SONIA KHAN MD Ot Z87. 01 PERSONAL HISTORY OF PNEUMONIA (RECURRENT 04/13/2019 SONIA KHAN MD Ot Z87.442 PERSONAL HISTORY OF URINARY CALCULI 04/13/2019 SONIA KHAN MD Ot Z91. 19 PATIENT'S NONCOMPLIANCE W OT MEDICAL TR 04/20/2019 MELODY LYNCH, BERNIE Reed Ot E04 .2 NONTOXIC MULTINODULAR GOITER 05/04/2019 IVAN MONAHAN MD Ot E11 .9 TYPE 2 DIABETES MELLITUS WITHOUT COMPLIC 05/04/2019 IVAN MONAHAN MD Ot E78.00 PURE HYPERCHOLESTEROLEMIA, UNSPECIFIED 05/04/2019 IVAN MONAHAN MD Ot F32 .9 MAJOR DEPRESSIVE DISORDER, SINGLE EPISOD 05/04/2019 IVAN MONAHAN MD, Ot F41 .9 ANXIETY DISORDER, UNSPECIFIED 05/04/2019 IVAN MONAHAN MD, Ot G43.909 MIGRAINE, UNSP, NOT INTRACTABLE, WITHOUT 05/04/2019 IVAN MONAHAN MD Ot G47.30 SLEEP APNEA, UNSPECIFIED 05/04/2019 IVAN MONAHAN MD Ot G89.29 OTHER CHRONIC PAIN 05/04/2019 IVAN MONAHAN MD Ot I10 ESSENTIAL (PRIMARY) HYPERTENSION 05/04/2019 IVAN MONAHAN MD Ot I25.119 ATHSCL HEART DISEASE OF [place] COR ART W 05/04/2019 IVAN MONAHAN MD, Ot J44 .9 CHRONIC OBSTRUCTIVE PULMONARY DISEASE, U 05/04/2019 IVAN MONAHAN MD, Ot M06 .9 RHEUMATOID ARTHRITIS, UNSPECIFIED 05/04/2019 IVAN MONAHAN MD, Ot M54 .9 DORSALGIA, UNSPECIFIED 05/04/2019 IVAN MONAHAN MD Ot Z79 .4 SNF (CURRENT) USE OF INSULIN 05/04/2019 IVAN MONAHAN MD Ot 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 05/04/2019 IVAN MONAHAN MD, Ot Z79.84 SNF (CURRENT) USE OF ORAL HYPOGLYC 05/04/2019 IVAN MONAHAN MD Ot Z79.891 SNF (CURRENT) USE OF OPIATE ANALGE 05/04/2019 IVAN MONAHAN MD, Ot Z79.899 OTHER BASKET BOTTOM MACHINE OPERATOR (CURRENT) DRUG THERAPY 05/04/2019 IVAN MONAHAN MD Ot Z80 .0 FAMILY HISTORY OF MALIGNANT NEOPLASM OF 05/04/2019 IVAN MONAHAN MD, Ot Z82 .3 FAMILY HISTORY OF STROKE 05/04/2019 IVAN MONAHAN MD, Ot Z82.49 FAMILY HX OF ISCHEM HEART DIS AND OTH DI 05/04/2019 IVAN MONAHAN MD Ot Z86.010 PERSONAL HISTORY OF COLONIC POLYPS 05/04/2019 IVAN MONAHAN MD Ot Z90.89 ACQUIRED ABSENCE OF OTHER ORGANS 05/04/2019 IVAN MONAHAN MD Ot Z95 .1 PRESENCE OF AORTOCORONARY BYPASS GRAFT 05/04/2019 IVAN MONAHAN MD Ot E11 .9 TYPE 2 DIABETES MELLITUS WITHOUT COMPLIC 05/04/2019 IVAN MONAHAN MD Ot E78.00 PURE HYPERCHOLESTEROLEMIA, UNSPECIFIED 05/04/2019 IVAN MONAHAN MD, Ot F32 .9 MAJOR DEPRESSIVE DISORDER, SINGLE EPISOD 05/04/2019 IVAN MONAHAN MD, Ot F41 .9 ANXIETY DISORDER, UNSPECIFIED 05/04/2019 IVAN MONAHAN MD, Ot G43.909 MIGRAINE, UNSP, NOT INTRACTABLE, WITHOUT 05/04/2019 IVAN MONAHAN MD Ot G47.30 SLEEP APNEA, UNSPECIFIED 05/04/2019 IVAN MONAHAN MD Ot G89.29 OTHER CHRONIC PAIN 05/04/2019 IVAN MONAHAN MD, Ot I10 ESSENTIAL (PRIMARY) HYPERTENSION 05/04/2019 IVAN MONAHAN MD Ot I25.119 ATHSCL HEART DISEASE OF [place] COR ART W 05/04/2019 VIAN MONAHAN MD, Ot J44 .9 CHRONIC OBSTRUCTIVE PULMONARY DISEASE, U 05/04/2019 IVAN MONAHAN MD Ot M06 .9 RHEUMATOID ARTHRITIS, UNSPECIFIED 05/04/2019 IVAN MONAHAN MD Ot M54 .9 DORSALGIA, UNSPECIFIED 05/04/2019 IVAN MONAHAN MD Ot Z79 .4 SNF (CURRENT) USE OF INSULIN 05/04/2019 IVAN MONAHAN MD Ot 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 05/04/2019 IVAN MONAHAN MD Ot Z79.84 SNF (CURRENT) USE OF ORAL HYPOGLYC 05/04/2019 IVAN MONAHAN MD Ot Z79.891 BASKET BOTTOM MACHINE OPERATOR (CURRENT) USE OF OPIATE ANALGE 05/04/2019 IVAN MONAHAN MD, Ot Z79.899 OTHER BASKET BOTTOM MACHINE OPERATOR (CURRENT) DRUG THERAPY 05/04/2019 IVAN MONAHAN MD Ot Z80 .0 FAMILY HISTORY OF MALIGNANT NEOPLASM OF 05/04/2019 IVAN MONAHAN MD, Ot Z82 .3 FAMILY HISTORY OF STROKE 05/04/2019 IVAN MONAHAN MD Ot Z82.49 FAMILY HX OF ISCHEM HEART DIS AND OTH DI 05/04/2019 IVAN MONAHAN MD Ot Z86.010 PERSONAL HISTORY OF COLONIC POLYPS 05/04/2019 IVAN MONAHAN MD Ot Z90.89 ACQUIRED ABSENCE OF OTHER ORGANS 05/04/2019 IVAN MONAHAN MD, Ot Z95 .1 PRESENCE OF AORTOCORONARY BYPASS GRAFT 05/21/2019 JORGE OLMOS MD, Ot E11.40 TYPE 2 DIABETES MELLITUS WITH DIABETIC N 05/21/2019 JORGE OLMOS MD, Ot E78.00 PURE HYPERCHOLESTEROLEMIA, UNSPECIFIED 05/21/2019 JORGE OLMOS MD Ot F32.9 MAJOR DEPRESSIVE DISORDER, SINGLE EPISOD 05/21/2019 JORGE OLMOS MD, Ot F41.9 ANXIETY DISORDER, UNSPECIFIED 05/21/2019 JORGE OLMOS MD, Ot G43.909 MIGRAINE, UNSP, NOT INTRACTABLE, WITHOUT 05/21/2019 JORGE OLMOS MD, Ot I10 ESSENTIAL (PRIMARY) HYPERTENSION 05/21/2019 JORGE OLMOS MD, Ot I25.10 ATHSCL HEART DISEASE OF [place] CORONARY 05/21/2019 JORGE OLMOS MD, Ot I25.2 OLD MYOCARDIAL INFARCTION 05/21/2019 JORGE OLMOS MD, Ot J44.9 CHRONIC OBSTRUCTIVE PULMONARY DISEASE, U 05/21/2019 JORGE OLMOS MD, Ot M06.9 RHEUMATOID ARTHRITIS, UNSPECIFIED 05/21/2019 JORGE OLMOS MD, Ot M10.9 GOUT, UNSPECIFIED 05/21/2019 JORGE OLMOS MD Ot M79.7 FIBROMYALGIA 05/21/2019 JORGE OLMOS MD Ot R07.9 CHEST PAIN, UNSPECIFIED 05/21/2019 JORGE OLMOS MD, Ot Z79.4 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 05/21/2019 JORGE OLMOS MD Ot Z79.51 SNF (CURRENT) USE OF INHALED STERO 05/21/2019 JORGE OLMOS MD, Ot 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 05/21/2019 JORGE OLMOS MD Ot Z80.0 FAMILY HISTORY OF MALIGNANT NEOPLASM OF 05/21/2019 JORGE OLMOS MD, Ot Z87.442 PERSONAL HISTORY OF URINARY CALCULI 05/21/2019 JORGE OLMOS MD, Ot Z90.49 ACQUIRED ABSENCE OF OTHER SPECIFIED PART 05/21/2019 JORGE OLMOS MD, Ot Z90.89 ACQUIRED ABSENCE OF OTHER ORGANS 05/21/2019 JORGE OLMOS MD, Ot Z95.5 PRESENCE OF CORONARY ANGIOPLASTY IMPLANT 05/24/2019 JORGE OLMOS MD Ot E11.40 TYPE 2 DIABETES MELLITUS WITH DIABETIC N 05/24/2019 JORGE OLMOS MD, Ot E78.00 PURE HYPERCHOLESTEROLEMIA, UNSPECIFIED 05/24/2019 JORGE OLMOS MD, Ot F32.9 MAJOR DEPRESSIVE DISORDER, SINGLE EPISOD 05/24/2019 JORGE OLMOS MD, Ot F41.9 ANXIETY DISORDER, UNSPECIFIED 05/24/2019 JORGE OLMOS MD, Ot G43.909 MIGRAINE, UNSP, NOT INTRACTABLE, WITHOUT 05/24/2019 JORGE OLMOS MD, Ot I10 ESSENTIAL (PRIMARY) HYPERTENSION 05/24/2019 JORGE OLMOS MD, Ot I25.10 ATHSCL HEART DISEASE OF [place] CORONARY 05/24/2019 JORGE OLMOS MD, Ot I25.2 OLD MYOCARDIAL INFARCTION 05/24/2019 JORGE OLMOS MD, Ot J44.9 CHRONIC OBSTRUCTIVE PULMONARY DISEASE, U 05/24/2019 JORGE OLMOS MD, Ot M06.9 RHEUMATOID ARTHRITIS, UNSPECIFIED 05/24/2019 JORGE OLMOS MD, Ot M10.9 GOUT, UNSPECIFIED 05/24/2019 JORGE OLMOS MD, Ot M79.7 FIBROMYALGIA 05/24/2019 JORGE OLMOS MD, Ot R07.9 CHEST PAIN, UNSPECIFIED 05/24/2019 JORGE OLMOS MD, Ot Z79.4 SNF (CURRENT) USE OF INSULIN 05/24/2019 JORGE OLMOS MD Ot Z79.51 SNF (CURRENT) USE OF INHALED STERO 05/24/2019 JORGE OLMOS MD, Ot 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 05/24/2019 JORGE OLMOS MD, Ot Z80.0 FAMILY HISTORY OF MALIGNANT NEOPLASM OF 05/24/2019 JORGE OLMOS MD, Ot Z87.442 PERSONAL HISTORY OF URINARY CALCULI 05/24/2019 JORGE OLMOS MD, Ot Z90.49 ACQUIRED ABSENCE OF OTHER SPECIFIED PART 05/24/2019 JORGE OLMOS MD, Ot Z90.89 ACQUIRED ABSENCE OF OTHER ORGANS 05/24/2019 JORGE OLMOS MD, Ot Z95.5 PRESENCE OF CORONARY ANGIOPLASTY IMPLANT 05/26/2019 JORGE OLMOS MD, Ot E11.40 TYPE 2 DIABETES MELLITUS WITH DIABETIC N 05/26/2019 JORGE OLMOS MD, Ot E78.00 PURE HYPERCHOLESTEROLEMIA, UNSPECIFIED 05/26/2019 JORGE OLMOS MD, Ot F32.9 MAJOR DEPRESSIVE DISORDER, SINGLE EPISOD 05/26/2019 JORGE OLMOS MD, Ot F41.9 ANXIETY DISORDER, UNSPECIFIED 05/26/2019 JORGE OLMOS MD, Ot G43.909 MIGRAINE, UNSP, NOT INTRACTABLE, WITHOUT 05/26/2019 JORGE OLMOS MD, Ot I10 ESSENTIAL (PRIMARY) HYPERTENSION 05/26/2019 JORGE OLMOS MD, Ot I25.10 ATHSCL HEART DISEASE OF [place] CORONARY 05/26/2019 JORGE OLMOS MD, Ot I25.2 OLD MYOCARDIAL INFARCTION 05/26/2019 JORGE OLMOS MD, Ot J44.9 CHRONIC OBSTRUCTIVE PULMONARY DISEASE, U 05/26/2019 JORGE OLMOS MD, Ot M06.9 RHEUMATOID ARTHRITIS, UNSPECIFIED 05/26/2019 JORGE OLMOS MD, Ot M10.9 GOUT, UNSPECIFIED 05/26/2019 JORGE OLMOS MD, Ot M79.7 FIBROMYALGIA 05/26/2019 JORGE OLMOS MD, Ot R07.9 CHEST PAIN, UNSPECIFIED 05/26/2019 JORGE OLMOS MD, Ot Z79.4 SNF (CURRENT) USE OF INSULIN 05/26/2019 JORGE OLMOS MD, Ot Z79.51 SNF (CURRENT) USE OF INHALED STERO 05/26/2019 JORGE OLMOS MD, Ot Z79.82 SNF (CURRENT) USE OF ASPIRIN 05/26/2019 JORGE OLMOS MD, Ot Z80.0 FAMILY HISTORY OF MALIGNANT NEOPLASM OF 05/26/2019 JORGE OLMOS MD, Ot Z87.442 PERSONAL HISTORY OF URINARY CALCULI 05/26/2019 JORGE OLMOS MD, Ot Z90.49 ACQUIRED ABSENCE OF OTHER SPECIFIED PART 05/26/2019 JORGE OLMOS MD, Ot Z90.89 ACQUIRED ABSENCE OF OTHER ORGANS 05/26/2019 JORGE OLMOS MD, Ot Z95.5 PRESENCE OF CORONARY ANGIOPLASTY IMPLANT 05/27/2019 JORGE OLMOS MD, Ot E11.40 TYPE 2 DIABETES MELLITUS WITH DIABETIC N 05/27/2019 JORGE OLMOS MD, Ot E78.00 PURE HYPERCHOLESTEROLEMIA, UNSPECIFIED 05/27/2019 JORGE OLMOS MD, Ot F32.9 MAJOR DEPRESSIVE DISORDER, SINGLE EPISOD 05/27/2019 JORGE OLMOS MD, Ot F41.9 ANXIETY DISORDER, UNSPECIFIED 05/27/2019 JORGE OLMOS MD, Ot G43.909 MIGRAINE, UNSP, NOT INTRACTABLE, WITHOUT 05/27/2019 JORGE OLMOS MD, Ot I10 ESSENTIAL (PRIMARY) HYPERTENSION 05/27/2019 JORGE OLMOS MD, Ot I25.10 ATHSCL HEART DISEASE OF [place] CORONARY 05/27/2019 JORGE OLMOS MD, Ot I25.2 OLD MYOCARDIAL INFARCTION 05/27/2019 JORGE OLMOS MD, Ot J44.9 CHRONIC OBSTRUCTIVE PULMONARY DISEASE, U 05/27/2019 JORGE OLMOS MD, Ot M06.9 RHEUMATOID ARTHRITIS, UNSPECIFIED 05/27/2019 JORGE OLMOS MD, Ot M10.9 GOUT, UNSPECIFIED 05/27/2019 JORGE OLMOS MD, Ot M79.7 FIBROMYALGIA 05/27/2019 JORGE OLMOS MD, Ot R07.9 CHEST PAIN, UNSPECIFIED 05/27/2019 JORGE OLMOS MD, Ot Z79.4 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 05/27/2019 JORGE OLMOS MD, Ot Z79.51 BASKET BOTTOM MACHINE OPERATOR (CURRENT) USE OF INHALED STERO 05/27/2019 JORGE OLMOS MD, Ot Z79.82 SNF (CURRENT) USE OF ASPIRIN 05/27/2019 JORGE OLMOS MD, Ot Z80.0 FAMILY HISTORY OF MALIGNANT NEOPLASM OF 05/27/2019 JORGE OLMOS MD, Ot Z87.442 PERSONAL HISTORY OF URINARY CALCULI 05/27/2019 JORGE OLMOS MD, Ot Z90.49 ACQUIRED ABSENCE OF OTHER SPECIFIED PART 05/27/2019 JORGE OLMOS MD, Ot Z90.89 ACQUIRED ABSENCE OF OTHER ORGANS 05/27/2019 JORGE OLMOS MD, Ot Z95.5 PRESENCE OF CORONARY ANGIOPLASTY IMPLANT 05/31/2019 ROSS RODRÍGUEZ MD Ot E11. 40 TYPE 2 DIABETES MELLITUS WITH DIABETIC N 05/31/2019 ROSS RODRÍGUEZ MD Ot E66. 9 OBESITY, UNSPECIFIED 05/31/2019 ROSS RODRÍGUEZ MD Ot E78. 00 PURE HYPERCHOLESTEROLEMIA, UNSPECIFIED 05/31/2019 ROSS RODRÍGUEZ MD, Ot E78. 5 HYPERLIPIDEMIA, UNSPECIFIED 05/31/2019 ROSS RODRÍGUEZ MD Ot F17.200 NICOTINE DEPENDENCE, UNSPECIFIED, UNCOMP 05/31/2019 ROSS RODRÍGUEZ MD Ot F32. 9 MAJOR DEPRESSIVE DISORDER, SINGLE EPISOD 05/31/2019 ROSS RODRÍGUEZ MD Ot F41. 9 ANXIETY DISORDER, UNSPECIFIED 05/31/2019 ROSS RODRÍGUEZ MD, Ot G43.909 MIGRAINE, UNSP, NOT INTRACTABLE, WITHOUT 05/31/2019 ROSS RODRÍGUEZ MD Ot G47. 30 SLEEP APNEA, UNSPECIFIED 05/31/2019 ROSS RODRÍGUEZ MD Ot G89. 29 OTHER CHRONIC PAIN 05/31/2019 ROSS RODRÍGUEZ MD Ot I10 ESSENTIAL (PRIMARY) HYPERTENSION 05/31/2019 ROSS RODRÍGUEZ MD, Ot I25. 10 ATHSCL HEART DISEASE OF [place] CORONARY 05/31/2019 ANNE MD, BASHAR J Ot J44. 9 CHRONIC OBSTRUCTIVE PULMONARY DISEASE, U 05/31/2019 ROSS RODRÍGUEZ MD Ot M06. 9 RHEUMATOID ARTHRITIS, UNSPECIFIED 05/31/2019 ROSS RODRÍGUEZ MD Ot M10. 9 GOUT, UNSPECIFIED 05/31/2019 ROSS RODRÍGUEZ MD Ot M54. 9 DORSALGIA, UNSPECIFIED 05/31/2019 ROSS RODRÍGUEZ MD Ot M79. 7 FIBROMYALGIA 05/31/2019 ROSS RODRÍGUEZ MD Ot Z68. 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 0 FAMILY HISTORY OF MALIGNANT NEOPLASM OF 05/31/2019 ROSS RODRÍGUEZ MD Ot Z80. 6 FAMILY HISTORY OF LEUKEMIA 05/31/2019 ROSS RODRÍGUEZ MD, Ot Z82. 3 FAMILY HISTORY OF STROKE 05/31/2019 ROSS RODRÍGUEZ MD, Ot Z90. 89 ACQUIRED ABSENCE OF OTHER ORGANS 05/31/2019 ROSS RODRÍGUEZ MD Ot E11. 40 TYPE 2 DIABETES MELLITUS WITH DIABETIC N 05/31/2019 ROSS RODRÍGUEZ MD Ot E66. 9 OBESITY, UNSPECIFIED 05/31/2019 ROSS RODRÍGUEZ MD Ot E78. 00 PURE HYPERCHOLESTEROLEMIA, UNSPECIFIED 05/31/2019 ROSS RODRÍGUEZ MD Ot E78. 5 HYPERLIPIDEMIA, UNSPECIFIED 05/31/2019 ROSS RODRÍGUEZ MD Ot F17.200 NICOTINE DEPENDENCE, UNSPECIFIED, UNCOMP 05/31/2019 ROSS RODRÍGUEZ MD Ot F32. 9 MAJOR DEPRESSIVE DISORDER, SINGLE EPISOD 05/31/2019 ROSS RODRÍGUEZ MD Ot F41. 9 ANXIETY DISORDER, UNSPECIFIED 05/31/2019 ROSS RODRÍGUEZ MD Ot G43.909 MIGRAINE, UNSP, NOT INTRACTABLE, WITHOUT 05/31/2019 ROSS RODRÍGUEZ MD Ot G47. 30 SLEEP APNEA, UNSPECIFIED 05/31/2019 ROSS RODRÍGUEZ MD, Ot G89. 29 OTHER CHRONIC PAIN 05/31/2019 ROSS RODRÍGUEZ MD, Ot I10 ESSENTIAL (PRIMARY) HYPERTENSION 05/31/2019 ROSS RODRÍGUEZ MD, Ot I25. 10 ATHSCL HEART DISEASE OF [place] CORONARY 05/31/2019 ROSS RODRÍGUEZ MD, Ot J44. 9 CHRONIC OBSTRUCTIVE PULMONARY DISEASE, U 05/31/2019 ROSS RODRÍGUEZ MD, Ot M06. 9 RHEUMATOID ARTHRITIS, UNSPECIFIED 05/31/2019 ROSS RODRÍGUEZ MD, Ot M10. 9 GOUT, UNSPECIFIED 05/31/2019 ORSS RODRÍGUEZ MD, Ot M54. 9 DORSALGIA, UNSPECIFIED 05/31/2019 ROSS RODRÍGUEZ MD, Ot M79. 7 FIBROMYALGIA 05/31/2019 ROSS RODRÍGUEZ MD, Ot Z68. 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 0 FAMILY HISTORY OF MALIGNANT NEOPLASM OF 05/31/2019 ROSS RODRÍGUEZ MD, Ot Z80. 6 FAMILY HISTORY OF LEUKEMIA 05/31/2019 ROSS RODRÍGUEZ MD, Ot Z82. 3 FAMILY HISTORY OF STROKE 05/31/2019 ROSS RODRÍGUEZ MD, Ot Z90. 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 06/09/2019 WALLACE STEPHENSON IRINEO Ot E11.40 TYPE 2 DIABETES MELLITUS WITH DIABETIC N 06/09/2019 HARLEY GONSALEZ DOI Ot E66.9 OBESITY, UNSPECIFIED 06/09/2019 WALLACE STEPHENSON IRINEO Ot E78.00 PURE HYPERCHOLESTEROLEMIA, UNSPECIFIED 06/09/2019 WALLACE STEPHENSON IRINEO Ot E78.5 HYPERLIPIDEMIA, UNSPECIFIED 06/09/2019 WALLACE STEPHENSON IRINEO Ot F17.29 0 NICOTINE DEPENDENCE, OTHER TOBACCO PRODU 06/09/2019 GONSALEZ DO, IRINEO Ot F32.9 MAJOR DEPRESSIVE DISORDER, SINGLE EPISOD 06/09/2019 GONSALEZ DO, IRINEO Ot F41.9 ANXIETY DISORDER, UNSPECIFIED 06/09/2019 GONSALEZ DO, IRINEO Ot G43.90 9 MIGRAINE, UNSP, NOT INTRACTABLE, WITHOUT 06/09/2019 GONSALEZ DO, IRINEO Ot G47.33 OBSTRUCTIVE SLEEP APNEA (ADULT) (PEDIATR 06/09/2019 GONSALEZ DO, IRINEO Ot G89.29 OTHER CHRONIC PAIN 06/09/2019 GONSALEZ DO, IRINEO Ot I12.9 HYPERTENSIVE CHRONIC KIDNEY DISEASE W ST 06/09/2019 GONSALEZ DO, IRINEO Ot I25.10 ATHSCL HEART DISEASE OF [place] CORONARY 06/09/2019 GONSALEZ DO, IRINEO Ot I25.2 OLD MYOCARDIAL INFARCTION 06/09/2019 GONSALEZ DO, IRINOE Ot K21.0 GASTRO-ESOPHAGEAL REFLUX DISEASE WITH ES 06/09/2019 GONSALEZ DO, IRINEO Ot K29.70 GASTRITIS, UNSPECIFIED, WITHOUT BLEEDING 06/09/2019 GONSALEZ DO, IRINEO Ot M19.90 UNSPECIFIED OSTEOARTHRITIS, UNSPECIFIED 06/09/2019 GONSALEZ DO, IRINEO Ot M54.9 DORSALGIA, UNSPECIFIED 06/09/2019 GONSALEZ DO, IRINEO Ot N18.9 CHRONIC KIDNEY DISEASE, UNSPECIFIED 06/09/2019 GONSALEZ DO, IRINEO Ot Z68.37 BODY MASS INDEX (BMI) 37.0-37.9, ADULT 06/09/2019 GONSALEZ DO, IRINEO Ot Z79.4 SNF (CURRENT) USE OF INSULIN 06/09/2019 GONSALEZ DO, IRINEO Ot Z79.82 SNF (CURRENT) USE OF ASPIRIN 06/09/2019 GONSALEZ DO, IRINEO Ot Z79.89 9 OTHER BASKET BOTTOM MACHINE OPERATOR (CURRENT) DRUG THERAPY 06/09/2019 GONSALEZ DO, IRINEO Ot Z82.49 FAMILY HX OF ISCHEM HEART DIS AND OTH DI 06/09/2019 GONSALEZ DO, IRINEO Ot Z90.89 ACQUIRED ABSENCE OF OTHER ORGANS 06/20/2019 ROSS RODRÍGUEZ MD Ot Z48.812 ENCNTR FOR SURGICAL AFTCR FOLLOWING SURG 06/20/2019 ROSS RODRÍGUEZ MD Ot Z95. 5 PRESENCE OF CORONARY ANGIOPLASTY IMPLANT 06/22/2019 ROSS RODRÍGUEZ MD Ot Z48.812 ENCNTR FOR SURGICAL AFTCR FOLLOWING SURG 06/22/2019 ANNE LYNCH, ROSS Perales Ot Z95. 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 06/29/2019 GONSALEZ DO, IRINEO Ot E11.40 TYPE 2 DIABETES MELLITUS WITH DIABETIC N 06/29/2019 GONSALEZ DO, IRINEO Ot E66.9 OBESITY, UNSPECIFIED 06/29/2019 GONSALEZ DO, IRINEO Ot E78.00 PURE HYPERCHOLESTEROLEMIA, UNSPECIFIED 06/29/2019 GONSALEZ DO, IRINEO Ot E78.5 HYPERLIPIDEMIA, UNSPECIFIED 06/29/2019 GONSALEZ DO, IRINEO Ot F17.29 0 NICOTINE DEPENDENCE, OTHER TOBACCO PRODU 06/29/2019 GONSALEZ DO, IRINEO Ot F32.9 MAJOR DEPRESSIVE DISORDER, SINGLE EPISOD 06/29/2019 GONSALEZ DO, IRINEO Ot F41.9 ANXIETY DISORDER, UNSPECIFIED 06/29/2019 GONSALEZ DO, IRINEO Ot G43.90 9 MIGRAINE, UNSP, NOT INTRACTABLE, WITHOUT 06/29/2019 GONSALEZ DO, IRINEO Ot G47.33 OBSTRUCTIVE SLEEP APNEA (ADULT) (PEDIATR 06/29/2019 GONSALEZ DO, IRINEO Ot G89.29 OTHER CHRONIC PAIN 06/29/2019 GONSALEZ DO, IRINEO Ot I12.9 HYPERTENSIVE CHRONIC KIDNEY DISEASE W ST 06/29/2019 GONSALEZ DO, IRINEO Ot I25.10 ATHSCL HEART DISEASE OF [place] CORONARY 06/29/2019 GONSALEZ DO, IRINEO Ot I25.2 OLD MYOCARDIAL INFARCTION 06/29/2019 GONSALEZ DO, IRINEO Ot K21.0 GASTRO-ESOPHAGEAL REFLUX DISEASE WITH ES 06/29/2019 GONSALEZ DO, IRINEO Ot K29.70 GASTRITIS, UNSPECIFIED, WITHOUT BLEEDING 06/29/2019 GONSALEZ DO, IRINEO Ot M19.90 UNSPECIFIED OSTEOARTHRITIS, UNSPECIFIED 06/29/2019 GONSALEZ DO, IRINEO Ot M54.9 DORSALGIA, UNSPECIFIED 06/29/2019 GONSALEZ DO, IRIENO Ot N18.9 CHRONIC KIDNEY DISEASE, UNSPECIFIED 06/29/2019 GONSALEZ DO, IRINEO Ot Z68.37 BODY MASS INDEX (BMI) 37.0-37.9, ADULT 06/29/2019 GONSALEZ DO, IRINEO Ot 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.4 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 06/29/2019 GONSALEZ DO, IRINEO Ot Z79.82 SNF (CURRENT) USE OF ASPIRIN 06/29/2019 WALLACE DO, IRINEO Ot Z79.89 9 OTHER BASKET BOTTOM MACHINE OPERATOR (CURRENT) DRUG THERAPY 06/29/2019 GONSALEZ DO, IRINEO Ot Z82.49 FAMILY HX OF ISCHEM HEART DIS AND OTH DI 06/29/2019 GONSALEZ DO, IRINEO Ot Z90.89 ACQUIRED ABSENCE OF OTHER ORGANS 06/30/2019 GONSALEZ DO, IRINEO Ot 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 06/30/2019 GONSALEZ DO, IRINEO Ot E11.40 TYPE 2 DIABETES MELLITUS WITH DIABETIC N 06/30/2019 GONSALEZ DO, IRINEO Ot E66.9 OBESITY, UNSPECIFIED 06/30/2019 GONSALEZ DO, IRINEO Ot E78.00 PURE HYPERCHOLESTEROLEMIA, UNSPECIFIED 06/30/2019 GONSALEZ DO, IRINEO Ot E78.5 HYPERLIPIDEMIA, UNSPECIFIED 06/30/2019 GONSALEZ DO, IRINEO Ot F17.29 0 NICOTINE DEPENDENCE, OTHER TOBACCO PRODU 06/30/2019 GONSALEZ DO, IRINEO Ot F32.9 MAJOR DEPRESSIVE DISORDER, SINGLE EPISOD 06/30/2019 GONSALEZ DO, IRINEO Ot F41.9 ANXIETY DISORDER, UNSPECIFIED 06/30/2019 GONSALEZ DO, IRINEO Ot G43.90 9 MIGRAINE, UNSP, NOT INTRACTABLE, WITHOUT 06/30/2019 GONSALEZ DO, IRINEO Ot G47.33 OBSTRUCTIVE SLEEP APNEA (ADULT) (PEDIATR 06/30/2019 GONSALEZ DO, IRINEO Ot G89.29 OTHER CHRONIC PAIN 06/30/2019 GONSALEZ DO, IRINEO Ot I12.9 HYPERTENSIVE CHRONIC KIDNEY DISEASE W ST 06/30/2019 GONSALEZ DO, IRINEO Ot I25.10 ATHSCL HEART DISEASE OF [place] CORONARY 06/30/2019 GONSALEZ DO, IRINEO Ot I25.2 OLD MYOCARDIAL INFARCTION 06/30/2019 GONSALEZ DO, IRINEO Ot K21.0 GASTRO-ESOPHAGEAL REFLUX DISEASE WITH ES 06/30/2019 GONSALEZ DO, IRINEO Ot K29.70 GASTRITIS, UNSPECIFIED, WITHOUT BLEEDING 06/30/2019 GONSALEZ DO, IRINEO Ot M19.90 UNSPECIFIED OSTEOARTHRITIS, UNSPECIFIED 06/30/2019 GONSALEZ DO, IRINEO Ot M54.9 DORSALGIA, UNSPECIFIED 06/30/2019 GONSALEZ DO, IRINEO Ot N18.9 CHRONIC KIDNEY DISEASE, UNSPECIFIED 06/30/2019 GONSALEZ DO, IRINEO Ot Z68.37 BODY MASS INDEX (BMI) 37.0-37.9, ADULT 06/30/2019 GONSALEZ DO, IRINEO Ot Z79.4 SNF (CURRENT) USE OF INSULIN 06/30/2019 GONSALEZ DO, IRINEO Ot 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 06/30/2019 GONSALEZ DO, IRINEO Ot Z79.89 9 OTHER BASKET BOTTOM MACHINE OPERATOR (CURRENT) DRUG THERAPY 06/30/2019 GONSALEZ DO, IRINEO Ot Z82.49 FAMILY HX OF ISCHEM HEART DIS AND OTH DI 06/30/2019 GONSALEZ DO, IRINEO Ot Z90.89 ACQUIRED ABSENCE OF OTHER ORGANS 07/01/2019 GONSALEZ DO, IRINEO Ot 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 07/01/2019 GONSALEZ DO, IRINEO Ot E11.40 TYPE 2 DIABETES MELLITUS WITH DIABETIC N 07/01/2019 GONSALEZ DO, IRINEO Ot E66.9 OBESITY, UNSPECIFIED 07/01/2019 GONSALEZ DO, IRINEO Ot E78.00 PURE HYPERCHOLESTEROLEMIA, UNSPECIFIED 07/01/2019 GONSALEZ DO, IRINEO Ot E78.5 HYPERLIPIDEMIA, UNSPECIFIED 07/01/2019 GONSALEZ DO, IRINEO Ot F17.29 0 NICOTINE DEPENDENCE, OTHER TOBACCO PRODU 07/01/2019 GONSALEZ DO, IRINEO Ot F32.9 MAJOR DEPRESSIVE DISORDER, SINGLE EPISOD 07/01/2019 GONSALEZ DO, IRINEO Ot F41.9 ANXIETY DISORDER, UNSPECIFIED 07/01/2019 GONSALEZ DO, IRINEO Ot G43.90 9 MIGRAINE, UNSP, NOT INTRACTABLE, WITHOUT 07/01/2019 GONSALEZ DO, IRINEO Ot G47.33 OBSTRUCTIVE SLEEP APNEA (ADULT) (PEDIATR 07/01/2019 GONSALEZ DO, IRINEO Ot G89.29 OTHER CHRONIC PAIN 07/01/2019 GONSALEZ DO, IRINEO Ot I12.9 HYPERTENSIVE CHRONIC KIDNEY DISEASE W ST 07/01/2019 GONSALEZ DO, IRINEO Ot I25.10 ATHSCL HEART DISEASE OF [place] CORONARY 07/01/2019 GONSALEZ DO, IRINEO Ot I25.2 OLD MYOCARDIAL INFARCTION 07/01/2019 GONSALEZ DO, IRINEO Ot K21.0 GASTRO-ESOPHAGEAL REFLUX DISEASE WITH ES 07/01/2019 GONSALEZ DO, IRINEO Ot K29.70 GASTRITIS, UNSPECIFIED, WITHOUT BLEEDING 07/01/2019 GONSALEZ DO, IRINEO Ot M19.90 UNSPECIFIED OSTEOARTHRITIS, UNSPECIFIED 07/01/2019 GONSALEZ DO, IRINEO Ot M54.9 DORSALGIA, UNSPECIFIED 07/01/2019 GONSALEZ DO, IRINEO Ot N18.9 CHRONIC KIDNEY DISEASE, UNSPECIFIED 07/01/2019 GONSALEZ DO, IRINEO Ot Z68.37 BODY MASS INDEX (BMI) 37.0-37.9, ADULT 07/01/2019 GONSALEZ DO, IRINEO Ot Z79.4 SNF (CURRENT) USE OF INSULIN 07/01/2019 GONSALEZ DO, IRINEO Ot 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 07/01/2019 GONSALEZ DO, IRINEO Ot Z79.89 9 OTHER SNF (CURRENT) DRUG THERAPY 07/01/2019 GONSALEZ DO, IRINEO Ot Z82.49 FAMILY HX OF ISCHEM HEART DIS AND OTH DI 07/01/2019 GONSALEZ DO, IRINEO Ot Z90.89 ACQUIRED ABSENCE OF OTHER ORGANS 07/01/2019 GONSALEZ DO, IRINEO Ot 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 07/01/2019 GONSALEZ DO, IRINEO Ot E11.40 TYPE 2 DIABETES MELLITUS WITH DIABETIC N 07/01/2019 GONSALEZ DO, IRINEO Ot E66.9 OBESITY, UNSPECIFIED 07/01/2019 GONSALEZ DO, IRINEO Ot E78.00 PURE HYPERCHOLESTEROLEMIA, UNSPECIFIED 07/01/2019 GONSALEZ DO, IRINEO Ot E78.5 HYPERLIPIDEMIA, UNSPECIFIED 07/01/2019 GONSALEZ DO, IRINEO Ot F17.29 0 NICOTINE DEPENDENCE, OTHER TOBACCO PRODU 07/01/2019 GONSALEZ DO, IRINEO Ot F32.9 MAJOR DEPRESSIVE DISORDER, SINGLE EPISOD 07/01/2019 GONSALEZ DO, IRINEO Ot F41.9 ANXIETY DISORDER, UNSPECIFIED 07/01/2019 GONSALEZ DO, IRINEO Ot G43.90 9 MIGRAINE, UNSP, NOT INTRACTABLE, WITHOUT 07/01/2019 GONSALEZ DO, IRINEO Ot G47.33 OBSTRUCTIVE SLEEP APNEA (ADULT) (PEDIATR 07/01/2019 GONSALEZ DO, IRINEO Ot G89.29 OTHER CHRONIC PAIN 07/01/2019 GONSALEZ DO, IRINEO Ot I12.9 HYPERTENSIVE CHRONIC KIDNEY DISEASE W ST 07/01/2019 WALLACE STEPHENSON IRINEO Ot I25.10 ATHSCL HEART DISEASE OF [place] CORONARY 07/01/2019 WALLACE STEPHENSON IRINEO Ot I25.2 OLD MYOCARDIAL INFARCTION 07/01/2019 WALLACE STEPHENSON IRINEO Ot K21.0 GASTRO-ESOPHAGEAL REFLUX DISEASE WITH ES 07/01/2019 WALLACE STEPHENSON IRINEO Ot K29.70 GASTRITIS, UNSPECIFIED, WITHOUT BLEEDING 07/01/2019 GONSALEZ DO IRINEO Ot M19.90 UNSPECIFIED OSTEOARTHRITIS, UNSPECIFIED 07/01/2019 GONSALEZ DO IRINEO Ot M54.9 DORSALGIA, UNSPECIFIED 07/01/2019 GONSALEZ DO IRINEO Ot N18.9 CHRONIC KIDNEY DISEASE, UNSPECIFIED 07/01/2019 GONSALEZ DO IRINEO Ot Z68.37 BODY MASS INDEX (BMI) 37.0-37.9, ADULT 07/01/2019 WALLACE STEPHENSON IRINEO Ot 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 5 PRESENCE OF CORONARY ANGIOPLASTY IMPLANT 08/15/2019 ROSS RODÍRGUEZ MD, Ot Z48.812 ENCNTR FOR SURGICAL AFTCR FOLLOWING SURG 08/15/2019 ROSS RODRÍGUEZ MD Ot Z95. 5 PRESENCE OF CORONARY ANGIOPLASTY IMPLANT 09/06/2019 ROSS RODRÍGUEZ MD Ot R07. 9 CHEST PAIN, UNSPECIFIED 09/13/2019 ROSS RODRÍGUEZ MD, Ot R07. 9 CHEST PAIN, UNSPECIFIED Procedures Code Description Performed By Per formed On 54.51 LAPA ROSCOP LYSIS-PERITONEAL ADHES 01/16/2015 54.59 OTH LYSIS-PERITONEAL ADHES 01/16/2015 406000F DI LATION OF 1 COR ART WITH DRUG-ELUT INT 04/13/2019 [id number] ME ASURE OF CARDIAC SAMPL PRESSURE, L H 04/13/2019 [id number] FL UOROSCOPY OF MULT COR ART USING L OSM 04/13/2019 [id number] FL UOROSCOPY OF LEFT HEART USING LOW OSMO 04/13/2019 [id number] FL UOROSCOPY OF THORACIC AORTA USING LOW 04/13/2019 Results Test Result Range [id number] - 04/03/16 15:27 Serum or plasma urea nitrogen measurement (mass/volume ) 19 mg/dL 7-18 Serum or plasma creatinine measurement (mass/volume) 1.36 mg/dL 0.60-1.30 Serum or plasma urea nitrogen/creatinine mass ratio 14 NRG Serum or plasma creatinine measurement w ith calculation of estimated glomerular filtration rate 55 NRG Complete blood count (CBC) with automate d white blood cell (WBC) differential - 07/15/17 15:00 Blood leukocytes automated count (number/volume) 19.9 10*3/uL 4.3-11.0 Blood erythrocytes automated count (number/volume) 4.73 10*6/uL 4.35-5.85 Venous blood hemoglobin measurement (mass/volume) 15.7 g/dL 13.3-17.7 Blood hematocrit (volume fraction) 44 % 40-54 Automated erythrocyte mean corpuscular volume 92 [ foz_us] 80-99 Automated erythrocyte mean corpuscular h emoglobin (mass per erythrocyte) 33 pg 25-34 Automated erythrocyte mean corpuscular h emoglobin concentration measurement (mass/volume) 36 g/dL 32-36 Automated erythrocyte distribution width ratio 12. 3 % 10.0- 14.5 Automated blood platelet count [...] 10*3 1.0-4.0 Blood monocytes automated count (number/volume) 1. 8 10*3 0.0-1.0 Automated eosinophil count 0.1 10*3/uL 0 .0-0.3 Automated blood basophil count (count/volume) 0.1 10*3/uL 0.0-0.1 Blood manual differential performed dete ction - 07/15/17 15:00 Blood monocytes/100 leukocytes 4 % NRG Manual blood segmented neutrophils/100 leukocytes 80 % NRG Blood band neutrophils/100 leukocytes 2 % NRG Manual blood lymphocytes/100 leukocytes 13 % NRG Manual eosinophils/100 leukocytes in nose 1 % NRG Manual blood basophils/100 leukocytes 0 % NRG Blood erythrocyte morphology finding identification NORMAL NRG Whole blood basic metabolic panel - 06/26 06/11 15:00 Serum or plasma sodium measurement (moles/volume) 135 mmol/L 135-145 Serum or plasma potassium measurement (moles/volume) 4.3 mmol/L 3.6-5.0 Serum or plasma chloride measurement (moles/volume) 98 mmol/L 98-107 Carbon dioxide 21 mmol/L 21-32 Serum or plasma anion gap determination (moles/volume) 16 mmol/L 5-14 Serum or plasma urea nitrogen measurement (mass/volume ) 25 mg/dL 7-18 Serum or plasma creatinine measurement (mass/volume) 1.33 mg/dL 0.60-1.30 Serum or plasma urea nitrogen/creatinine mass ratio 19 NRG Serum or plasma creatinine measurement w ith calculation of estimated glomerular filtration rate 56 NRG Serum or plasma glucose measurement (mass/volume) 420 mg/dL 70-105 Serum or plasma calcium measurement (mass/volume) 10.0 mg/dL 8.5-10.1 Blood lactic acid measurement (moles/vol ume) - 07/15/17 15:55 Blood lactic acid measurement (moles/volume) 2.08 mmol/L 0.50-2.00 Bacterial blood culture - 07/15/17 15:55 Bacterial blood culture NG NRG Bacterial blood culture - 07/15/17 16:35 Bacterial blood culture NG NRG Capillary blood glucose measurement by g lucometer (mass/volume) - 07/15/17 17:12 Capillary blood glucose measurement by glucometer (mas s/volume) 273 mg/dL 70-110 Bacterial blood culture - 07/15/17 17:51 Bacterial blood culture NG NRG Serum or plasma lactate measurement (mol es/volume) - 07/15/17 18:02 Serum or plasma lactate measurement (moles/volume) 1.38 mmol/L 0.50-2.00 Bacterial blood culture - 07/15/17 18:02 Bacterial blood culture NG NRG Blood lactic acid measurement (moles/vol ume) - 07/15/17 20:05 Blood lactic acid measurement (moles/volume) 2.46 mmol/L 0.50-2.00 Capillary blood glucose measurement by g lucometer (mass/volume) - 07/15/17 21:51 Capillary blood glucose measurement by glucometer (mas s/volume) 346 mg/dL 70-110 Serum or plasma lactate measurement (mol es/volume) - 07/15/17 23:05 Serum or plasma lactate measurement (moles/volume) 1.89 mmol/L 0.50-2.00 Complete blood count (CBC) with automate d white blood cell (WBC) differential - 07/16/17 05:25 Blood leukocytes automated count (number/volume) 15.2 10*3/uL 4.3-11.0 Blood erythrocytes automated count (number/volume) 4.24 10*6/uL 4.35-5.85 Venous blood hemoglobin measurement (mass/volume) 14.0 g/dL 13.3-17.7 Blood hematocrit (volume fraction) 40 % 40-54 Automated erythrocyte mean corpuscular volume 95 [ foz_us] 80-99 Automated erythrocyte mean corpuscular h emoglobin (mass per erythrocyte) 33 pg 25-34 Automated erythrocyte mean corpuscular h emoglobin concentration measurement (mass/volume) 35 g/dL 32-36 Automated erythrocyte distribution width ratio 12. 1 % 10.0- 14.5 Automated blood platelet count [...] 10*3 1.0-4.0 Blood monocytes automated count (number/volume) 1. 4 10*3 0.0-1.0 Automated eosinophil count 0.2 10*3/uL 0 .0-0.3 Automated blood basophil count (count/volume) 0.0 10*3/uL 0.0-0.1 Whole blood basic metabolic panel - 06/26 07/12 05:25 Serum or plasma sodium measurement (moles/volume) 139 mmol/L 135-145 Serum or plasma potassium measurement (moles/volume) 4.0 mmol/L 3.6-5.0 Serum or plasma chloride measurement (moles/volume) 105 mmol/L 98-107 Carbon dioxide 21 mmol/L 21-32 Serum or plasma anion gap determination (moles/volume) 13 mmol/L 5-14 Serum or plasma urea nitrogen measurement (mass/volume ) 16 mg/dL 7-18 Serum or plasma creatinine measurement (mass/volume) 1.01 mg/dL 0.60-1.30 Serum or plasma urea nitrogen/creatinine mass ratio 16 NRG Serum or plasma creatinine measurement w ith calculation of estimated glomerular filtration rate > NRG Serum or plasma glucose measurement (mass/volume) 291 mg/dL 70-105 Serum or plasma calcium measurement (mass/volume) 8.7 mg/dL 8.5-10.1 Capillary blood glucose measurement by g lucometer (mass/volume) - 07/16/17 06:10 Capillary blood glucose measurement by glucometer (mas s/volume) 292 mg/dL 70-110 Capillary blood glucose measurement by g lucometer (mass/volume) - 07/16/17 10:38 Capillary blood glucose measurement by glucometer (mas s/volume) 265 mg/dL 70-110 Capillary blood glucose measurement by g lucometer (mass/volume) - 07/16/17 16:13 Capillary blood glucose measurement by glucometer (mas s/volume) 199 mg/dL 70-110 Sputum Gram stain - 07/16/17 20:30 GRAM STAIN SPUTUM AND MIXED BACTERIAL UMAIR NRG Bacterial sputum culture - 07/16/17 20:3 0 FREE TEXT EXTERNAL PLUS SCANT PRESUMPTIVE VINCE ALBICANS NRG QUANTITY OF GROWTH Abundant Growth NRG MRSA AGAR Screening test for MRSA is N EGATIVE (Final to follow) NRG Bacterial sputum culture [id number] [facility] Bacterial susceptibility panel - 8 20:30 Oxacillin susceptibility test by minimum inhibitory co ncentration <= NRG Gentamicin susceptibility test by minimum inhibitory c oncentration <= NRG Clindamycin susceptibility test by minimum inhibitory concentration <= NRG Erythromycin susceptibility test by minimum inhibitory concentration >= NRG Trimethoprim/sulfamethoxazole susceptibi lity test by minimum inhibitoryconcentration S NRG Vancomycin susceptibility test by minimum inhibitory c oncentration 1 NRG Levofloxacin susceptibility test by minimum inhibitory concentration <= NRG Rifampin susceptibility test by minimum inhibitory con centration <= NRG Tetracycline susceptibility test by minimum inhibitory concentration <= NRG Capillary blood glucose measurement by g lucometer (mass/volume) - 07/16/17 21:04 Capillary blood glucose measurement by glucometer (mas s/volume) 194 mg/dL 70-110 Automated blood complete blood count (he mogram) panel - 07/17/17 05:15 Blood leukocytes automated count (number/volume) 14.9 10*3/uL 4.3-11.0 Blood erythrocytes automated count (number/volume) 4.33 10*6/uL 4.35-5.85 Venous blood hemoglobin measurement (mass/volume) 14.1 g/dL 13.3-17.7 Blood hematocrit (volume fraction) 41 % 40-54 Automated erythrocyte mean corpuscular volume 95 [ foz_us] 80-99 Automated erythrocyte mean corpuscular h emoglobin (mass per erythrocyte) 33 pg 25-34 Automated erythrocyte mean corpuscular h emoglobin concentration measurement (mass/volume) 34 g/dL 32-36 Automated erythrocyte distribution width ratio 12. 2 % 10.0- 14.5 Automated blood platelet count (count/volume) 192 10*3/uL 130-400 Automated blood platelet mean volume measurement 11.1 [foz_us] 7.4-10.4 Whole blood basic metabolic panel - 06/26 08/09 05:15 Serum or plasma sodium measurement (moles/volume) 141 mmol/L 135-145 Serum or plasma potassium measurement (moles/volume) 3.9 mmol/L 3.6-5.0 Serum or plasma chloride measurement (moles/volume) 106 mmol/L 98-107 Carbon dioxide 25 mmol/L 21-32 Serum or plasma anion gap determination (moles/volume) 10 mmol/L 5-14 Serum or plasma urea nitrogen measurement (mass/volume ) 12 mg/dL 7-18 Serum or plasma creatinine measurement (mass/volume) 1.02 mg/dL 0.60-1.30 Serum or plasma urea nitrogen/creatinine mass ratio 12 NRG Serum or plasma creatinine measurement w ith calculation of estimated glomerular filtration rate > NRG Serum or plasma glucose measurement (mass/volume) 199 mg/dL 70-105 Serum or plasma calcium measurement (mass/volume) 9.6 mg/dL 8.5-10.1 Capillary blood glucose measurement by g lucometer (mass/volume) - 07/17/17 05:53 Capillary blood glucose measurement by glucometer (mas s/volume) 220 mg/dL 70-110 Capillary blood glucose measurement by g lucometer (mass/volume) - 07/17/17 10:51 Capillary blood glucose measurement by glucometer (mas s/volume) 211 mg/dL 70-110 Capillary blood glucose measurement by g lucometer (mass/volume) - 07/17/17 15:51 Capillary blood glucose measurement by glucometer (mas s/volume) 127 mg/dL 70-110 Capillary blood glucose measurement by g lucometer (mass/volume) - 07/17/17 21:56 Capillary blood glucose measurement by glucometer (mas s/volume) 140 mg/dL 70-110 Capillary blood glucose measurement by g lucometer (mass/volume) - 07/18/17 05:25 Capillary blood glucose measurement by glucometer (mas s/volume) 152 mg/dL 70-110 Whole blood basic metabolic panel - 06/26 09/09 06:00 Serum or plasma sodium measurement (moles/volume) 140 mmol/L 135-145 Serum or plasma potassium measurement (moles/volume) 4.0 mmol/L 3.6-5.0 Serum or plasma chloride measurement (moles/volume) 106 mmol/L 98-107 Carbon dioxide 22 mmol/L -32 Serum or plasma anion gap determination (moles/volume) 12 mmol/L 5-14 Serum or plasma urea nitrogen measurement (mass/volume ) 15 mg/dL 7-18 Serum or plasma creatinine measurement (mass/volume) 0.97 mg/dL 0.60-1.30 Serum or plasma urea nitrogen/creatinine mass ratio 15 NRG Serum or plasma creatinine measurement w ith calculation of estimated glomerular filtration rate > NRG Serum or plasma glucose measurement (mass/volume) 166 mg/dL 70-105 Serum or plasma calcium measurement (mass/volume) 9.4 mg/dL 8.5-10.1 Automated blood complete blood count (he mogram) panel - 07/18/17 06:10 Blood leukocytes automated count (number/volume) 13.9 10*3/uL 4.3-11.0 Blood erythrocytes automated count (number/volume) 4.30 10*6/uL 4.35-5.85 Venous blood hemoglobin measurement (mass/volume) 14.1 g/dL 13.3-17.7 Blood hematocrit (volume fraction) 40 % 40-54 Automated erythrocyte mean corpuscular volume 93 [ foz_us] 80-99 Automated erythrocyte mean corpuscular h emoglobin (mass per erythrocyte) 33 pg 25-34 Automated erythrocyte mean corpuscular h emoglobin concentration measurement (mass/volume) 35 g/dL 32-36 Automated erythrocyte distribution width ratio 12. 1 % 10.0- 14.5 Automated blood platelet count (count/volume) 210 10*3/uL 130-400 Automated blood platelet mean volume measurement 10.0 [foz_us] 7.4-10.4 Capillary blood glucose measurement by g lucometer (mass/volume) - 07/18/17 10:41 Capillary blood glucose measurement by glucometer (mas s/volume) 198 mg/dL 70-110 Capillary blood glucose measurement by g lucometer (mass/volume) - 07/18/17 15:55 Capillary blood glucose measurement by glucometer (mas s/volume) 157 mg/dL 70-110 Capillary blood glucose measurement by g lucometer (mass/volume) - 07/18/17 20:47 Capillary blood glucose measurement by glucometer (mas s/volume) 293 mg/dL 70-110 Complete blood count (CBC) with automate d white blood cell (WBC) differential - 07/19/17 05:15 Blood leukocytes automated count (number/volume) 14.6 10*3/uL 4.3-11.0 Blood erythrocytes automated count (number/volume) 4.39 10*6/uL 4.35-5.85 Venous blood hemoglobin measurement (mass/volume) 14.3 g/dL 13.3-17.7 Blood hematocrit (volume fraction) 40 % 40-54 Automated erythrocyte mean corpuscular volume 92 [ foz_us] 80-99 Automated erythrocyte mean corpuscular h emoglobin (mass per erythrocyte) 33 pg 25-34 Automated erythrocyte mean corpuscular h emoglobin concentration measurement (mass/volume) 36 g/dL 32-36 Automated erythrocyte distribution width ratio 11. 8 % 10.0- 14.5 Automated blood platelet count [...] 10*3 1.0-4.0 Blood monocytes automated count (number/volume) 0. 3 10*3 0.0-1.0 Automated eosinophil count 0.0 10*3/uL 0 .0-0.3 Automated blood basophil count (count/volume) 0.0 10*3/uL 0.0-0.1 Comprehensive metabolic panel - 07/19/17 05:15 Serum or plasma sodium measurement (moles/volume) 137 mmol/L 135-145 Serum or plasma potassium measurement (moles/volume) 4.2 mmol/L 3.6-5.0 Serum or plasma chloride measurement (moles/volume) 103 mmol/L 98-107 Carbon dioxide 22 mmol/L 21-32 Serum or plasma anion gap determination (moles/volume) 12 mmol/L 5-14 Serum or plasma urea nitrogen measurement (mass/volume ) 24 mg/dL 7-18 Serum or plasma creatinine measurement (mass/volume) 1.06 mg/dL 0.60-1.30 Serum or plasma urea nitrogen/creatinine mass ratio 23 NRG Serum or plasma creatinine measurement w ith calculation of estimated glomerular filtration rate > NRG Serum or plasma glucose measurement (mass/volume) 311 mg/dL 70-105 Serum or plasma calcium measurement (mass/volume) 9.6 mg/dL 8.5-10.1 Serum or plasma total bilirubin measurement (mass/volu me) 0.4 mg/dL 0.1-1.0 Serum or plasma alkaline phosphatase juan antonio surement (enzymatic activity/volume) 73 U/L 40-136 Serum or plasma aspartate aminotransfera se measurement (enzymatic activity/volume) 33 U/L 5-34 Serum or plasma alanine aminotransferase measurement (enzymatic activity/volume) 51 U/L 0-55 Serum or plasma protein measurement (mass/volume) 7.6 g/dL 6.4-8.2 Serum or plasma albumin measurement (mass/volume) 3.3 g/dL 3.2-4.5 Capillary blood glucose measurement by g lucometer (mass/volume) - 07/19/17 05:26 Capillary blood glucose measurement by glucometer (mas s/volume) 290 mg/dL 70-110 Capillary blood glucose measurement by g lucometer (mass/volume) - 07/19/17 10:45 Capillary blood glucose measurement by glucometer (mas s/volume) 317 mg/dL 70-110 Capillary blood glucose measurement by g lucometer (mass/volume) - 07/19/17 16:03 Capillary blood glucose measurement by glucometer (mas s/volume) 267 mg/dL 70-110 Capillary blood glucose measurement by g lucometer (mass/volume) - 07/19/17 20:55 Capillary blood glucose measurement by glucometer (mas s/volume) 273 mg/dL 70-110 Complete blood count (CBC) with automate d white blood cell (WBC) differential - 07/20/17 05:25 Blood leukocytes automated count (number/volume) 21.9 10*3/uL 4.3-11.0 Blood erythrocytes automated count (number/volume) 4.18 10*6/uL 4.35-5.85 Venous blood hemoglobin measurement (mass/volume) 13.6 g/dL 13.3-17.7 Blood hematocrit (volume fraction) 39 % 40-54 Automated erythrocyte mean corpuscular volume 92 [ foz_us] 80-99 Automated erythrocyte mean corpuscular h emoglobin (mass per erythrocyte) 33 pg 25-34 Automated erythrocyte mean corpuscular h emoglobin concentration measurement (mass/volume) 35 g/dL 32-36 Automated erythrocyte distribution width ratio 11. 9 % 10.0- 14.5 Automated blood platelet count [...] 10*3 1.0-4.0 Blood monocytes automated count (number/volume) 0. 7 10*3 0.0-1.0 Automated eosinophil count 0.0 10*3/uL 0 .0-0.3 Automated blood basophil count (count/volume) 0.0 10*3/uL 0.0-0.1 Comprehensive metabolic panel - 07/20/17 05:25 Serum or plasma sodium measurement (moles/volume) 137 mmol/L 135-145 Serum or plasma potassium measurement (moles/volume) 4.6 mmol/L 3.6-5.0 Serum or plasma chloride measurement (moles/volume) 104 mmol/L 98-107 Carbon dioxide 18 mmol/L 21-32 Serum or plasma anion gap determination (moles/volume) 15 mmol/L 5-14 Serum or plasma urea nitrogen measurement (mass/volume ) 31 mg/dL 7-18 Serum or plasma creatinine measurement (mass/volume) 1.05 mg/dL 0.60-1.30 Serum or plasma urea nitrogen/creatinine mass ratio 30 NRG Serum or plasma creatinine measurement w ith calculation of estimated glomerular filtration rate > NRG Serum or plasma glucose measurement (mass/volume) 321 mg/dL 70-105 Serum or plasma calcium measurement (mass/volume) 9.5 mg/dL 8.5-10.1 Serum or plasma total bilirubin measurement (mass/volu me) 0.4 mg/dL 0.1-1.0 Serum or plasma alkaline phosphatase juan antonio surement (enzymatic activity/volume) 67 U/L 40-136 Serum or plasma aspartate aminotransfera se measurement (enzymatic activity/volume) 51 U/L 5-34 Serum or plasma alanine aminotransferase measurement (enzymatic activity/volume) 69 U/L 0-55 Serum or plasma protein measurement (mass/volume) 7.5 g/dL 6.4-8.2 Serum or plasma albumin measurement (mass/volume) 3.3 g/dL 3.2-4.5 Capillary blood glucose measurement by g lucometer (mass/volume) - 07/20/17 05:27 Capillary blood glucose measurement by glucometer (mas s/volume) 299 mg/dL 70-110 Capillary blood glucose measurement by g lucometer (mass/volume) - 07/20/17 10:36 Capillary blood glucose measurement by glucometer (mas s/volume) 314 mg/dL 70-110 Capillary blood glucose measurement by g lucometer (mass/volume) - 07/20/17 16:06 Capillary blood glucose measurement by glucometer (mas s/volume) 283 mg/dL 70-110 Sputum Gram stain - 08/19/17 08:00 GRAM STAIN SPUTUM RARE GRAM POSITIVE COCCI NRG Bacteria identification in bronchial spe cimen by aerobe culture - 08/19/17 08:00 QUANTITY OF GROWTH Moderate Growth NRG MRSA AGAR Screening test for MRSA is N EGATIVE (Final to follow) NRG Bacteria identification in bronchial specimen by aerob e culture [id number] NRG FTX;REPORTABLE FEW OBSERVED, SENSITIVITY REPORTED 3-29 NRG Mycobacterium species detection by organ ism specific culture - 08/19/17 08:00 Mycobacterium species detection by organism specific c ulture 4 weeks required for a preliminary negative culture report. NRG Bacterial susceptibility panel - 8 08:00 Oxacillin susceptibility test by minimum inhibitory co ncentration <= NRG Gentamicin susceptibility test by minimum inhibitory c oncentration <= NRG Clindamycin susceptibility test by minimum inhibitory concentration <= NRG Erythromycin susceptibility test by minimum inhibitory concentration >= NRG Trimethoprim/sulfamethoxazole susceptibi lity test by minimum inhibitoryconcentration S NRG Vancomycin susceptibility test by minimum inhibitory c oncentration <= NRG Levofloxacin susceptibility test by minimum inhibitory concentration <= NRG Rifampin susceptibility test by minimum inhibitory con centration <= NRG Tetracycline susceptibility test by minimum inhibitory concentration <= NRG Fungus culture - 08/19/17 08:00 Fungus culture NG NRG Fungus culture - 08/19/17 08:00 Fungus culture NG NRG Complete blood count (CBC) with automate d white blood cell (WBC) differential - 08/20/17 15:41 Blood leukocytes automated count (number/volume) 12.8 10*3/uL 4.3-11.0 Blood erythrocytes automated count (number/volume) 4.77 10*6/uL 4.35-5.85 Venous blood hemoglobin measurement (mass/volume) 15.5 g/dL 13.3-17.7 Blood hematocrit (volume fraction) 43 % 40-54 Automated erythrocyte mean corpuscular volume 91 [ foz_us] 80-99 Automated erythrocyte mean corpuscular h emoglobin (mass per erythrocyte) 33 pg 25-34 Automated erythrocyte mean corpuscular h emoglobin concentration measurement (mass/volume) 36 g/dL 32-36 Automated erythrocyte distribution width ratio 13. 5 % 10.0- 14.5 Automated blood platelet count [...] 10*3 1.0-4.0 Blood monocytes automated count (number/volume) 1. 3 10*3 0.0-1.0 Automated eosinophil count 0.3 10*3/uL 0 .0-0.3 Automated blood basophil count (count/volume) 0.1 10*3/uL 0.0-0.1 Complete blood count (CBC) with automate d white blood cell (WBC) differential - 09/22/17 09:08 Blood leukocytes automated count (number/volume) 9.1 10*3/uL 4.3-11.0 Blood erythrocytes automated count (number/volume) 5.11 10*6/uL 4.35-5.85 Venous blood hemoglobin measurement (mass/volume) 16.7 g/dL 13.3-17.7 Blood hematocrit (volume fraction) 47 % 40-54 Automated erythrocyte mean corpuscular volume 93 [ foz_us] 80-99 Automated erythrocyte mean corpuscular h emoglobin (mass per erythrocyte) 33 pg 25-34 Automated erythrocyte mean corpuscular h emoglobin concentration measurement (mass/volume) 35 g/dL 32-36 Automated erythrocyte distribution width ratio 13. 3 % 10.0- 14.5 Automated blood platelet count [...] 10*3 1.0-4.0 Blood monocytes automated count (number/volume) 0. 8 10*3 0.0-1.0 Automated eosinophil count 0.2 10*3/uL 0 .0-0.3 Automated blood basophil count (count/volume) 0.1 10*3/uL 0.0-0.1 Comprehensive metabolic panel - 09/22/17 09:08 Serum or plasma sodium measurement (moles/volume) 139 mmol/L 135-145 Serum or plasma potassium measurement (moles/volume) 4.4 mmol/L 3.6-5.0 Serum or plasma chloride measurement (moles/volume) 107 mmol/L 98-107 Carbon dioxide 21 mmol/L 21-32 Serum or plasma anion gap determination (moles/volume) 11 mmol/L 5-14 Serum or plasma urea nitrogen measurement (mass/volume ) 24 mg/dL 7-18 Serum or plasma creatinine measurement (mass/volume) 1.10 mg/dL 0.60-1.30 Serum or plasma urea nitrogen/creatinine mass ratio 22 NRG Serum or plasma creatinine measurement w ith calculation of estimated glomerular filtration rate > NRG Serum or plasma glucose measurement (mass/volume) 217 mg/dL 70-105 Serum or plasma calcium measurement (mass/volume) 9.6 mg/dL 8.5-10.1 Serum or plasma total bilirubin measurement (mass/volu me) 0.8 mg/dL 0.1-1.0 Serum or plasma alkaline phosphatase juan antonio surement (enzymatic activity/volume) 62 U/L 40-136 Serum or plasma aspartate aminotransfera se measurement (enzymatic activity/volume) 21 U/L 5-34 Serum or plasma alanine aminotransferase measurement (enzymatic activity/volume) 44 U/L 0-55 Serum or plasma protein measurement (mass/volume) 7.2 g/dL 6.4-8.2 Serum or plasma albumin measurement (mass/volume) 4.3 g/dL 3.2-4.5 Complete urinalysis with reflex to cultu re - 09/22/17 09:10 Urine color determination YELLOW NRG Urine clarity determination CLEAR NR G Urine pH measurement by test strip 5 5-9 Specific gravity of urine by test strip 1.025 1.016-1.022 Urine protein assay by test strip, semi-quantitative 3+ NEGATIVE Urine glucose detection by automated test strip 4+ NEGATIVE Erythrocytes detection in urine sediment by light micr oscopy NEGATIVE NEGATIVE Urine ketones detection by automated test strip NE GATIVE NEGATIVE Urine nitrite detection by test strip NEGATIVE NEGATIVE Urine total bilirubin detection by test strip NEGA TIVE NEGATIVE Urine urobilinogen measurement by automated test strip (mass/volume) NORMAL NORMAL Urine leukocyte esterase detection by dipstick NEG ATIVE NEGATIVE Automated urine sediment erythrocyte cou nt by microscopy (number/high power field) NONE NRG Automated urine sediment leukocyte count by microscopy (number/high power field) [HPF] NRG Bacteria detection in urine sediment by light microsco py NEGATIVE NRG Squamous epithelial cells detection in u rine sediment by light microscopy RARE NRG Crystals detection in urine sediment by light microsco py NONE NRG Casts detection in urine sediment by light microscopy NONE NRG Mucus detection in urine sediment by light microscopy NEGATIVE NRG Complete urinalysis with reflex to culture NO NRG Complete blood count (CBC) with automate d white blood cell (WBC) differential - 05/21/18 16:45 Blood leukocytes automated count (number/volume) 6.8 10*3/uL 4.3-11.0 Blood erythrocytes automated count (number/volume) 4.76 10*6/uL 4.35-5.85 Venous blood hemoglobin measurement (mass/volume) 14.9 g/dL 13.3-17.7 Blood hematocrit (volume fraction) 44 % 40-54 Automated erythrocyte mean corpuscular volume 93 [ foz_us] 80-99 Automated erythrocyte mean corpuscular h emoglobin (mass per erythrocyte) 31 pg 25-34 Automated erythrocyte mean corpuscular h emoglobin concentration measurement (mass/volume) 34 g/dL 32-36 Automated erythrocyte distribution width ratio 13. 3 % 10.0- 14.5 Automated blood platelet count [...] 10*3 1.0-4.0 Blood monocytes automated count (number/volume) 1. 2 10*3 0.0-1.0 Automated eosinophil count 0.1 10*3/uL 0 .0-0.3 Automated blood basophil count (count/volume) 0.0 10*3/uL 0.0-0.1 Comprehensive metabolic panel - 05/21/18 16:45 Serum or plasma sodium measurement (moles/volume) 136 mmol/L 135-145 Serum or plasma potassium measurement (moles/volume) 4.1 mmol/L 3.6-5.0 Serum or plasma chloride measurement (moles/volume) 100 mmol/L 98-107 Carbon dioxide 23 mmol/L 21-32 Serum or plasma anion gap determination (moles/volume) 13 mmol/L 5-14 Serum or plasma urea nitrogen measurement (mass/volume ) 21 mg/dL 7-18 Serum or plasma creatinine measurement (mass/volume) 1.50 mg/dL 0.60-1.30 Serum or plasma urea nitrogen/creatinine mass ratio 14 NRG Serum or plasma creatinine measurement w ith calculation of estimated glomerular filtration rate 49 NRG Serum or plasma glucose measurement (mass/volume) 254 mg/dL 70-105 Serum or plasma calcium measurement (mass/volume) 9.0 mg/dL 8.5-10.1 Serum or plasma total bilirubin measurement (mass/volu me) 0.4 mg/dL 0.1-1.0 Serum or plasma alkaline phosphatase juan antonio surement (enzymatic activity/volume) 60 U/L 40-136 Serum or plasma aspartate aminotransfera se measurement (enzymatic activity/volume) 64 U/L 5-34 Serum or plasma alanine aminotransferase measurement (enzymatic activity/volume) 66 U/L 0-55 Serum or plasma protein measurement (mass/volume) 7.0 g/dL 6.4-8.2 Serum or plasma albumin measurement (mass/volume) 3.8 g/dL 3.2-4.5 CALCIUM CORRECTED 9.2 mg/dL 8.5-10.1 Blood lactic acid measurement (moles/vol ume) - 05/21/18 16:45 Blood lactic acid measurement (moles/volume) 2.04 mmol/L 0.50-2.00 Bacterial blood culture - 05/21/18 16:45 Bacterial blood culture NG NRG Bacterial blood culture - 05/21/18 16:50 Bacterial blood culture NG NRG Serum or plasma lactate measurement (mol es/volume) - 05/21/18 18:50 Serum or plasma lactate measurement (moles/volume) 1.56 mmol/L 0.50-2.00 Serum or plasma lithium measurement (mol es/volume) - 05/21/18 19:55 BNP level < pg/mL <100.0 Serum or plasma troponin i.cardiac measu rement (mass/volume) - 05/21/18 19:55 Serum or plasma troponin i.cardiac measurement (mass/v olume) < ng/mL <0.30 Capillary blood glucose measurement by g lucometer (mass/volume) - 05/21/18 21:35 Capillary blood glucose measurement by glucometer (mas s/volume) 270 mg/dL 70-110 Influenza virus A and B antigen detectio n - 05/22/18 01:55 CALL POSITIVES (F1 HELP) CALLED TO ZAINA IN [id number] NR FLU RESULT POSITIVE FOR INFLUENZA A ANT IGEN, NEG FOR B ANTIGEN, BY IA NR Complete blood count (CBC) with automate d white blood cell (WBC) differential - 05/22/18 04:09 Blood leukocytes automated count (number/volume) 4.9 10*3/uL 4.3-11.0 Blood erythrocytes automated count (number/volume) 4.34 10*6/uL 4.35-5.85 Venous blood hemoglobin measurement (mass/volume) 13.9 g/dL 13.3-17.7 Blood hematocrit (volume fraction) 41 % 40-54 Automated erythrocyte mean corpuscular volume 93 [ foz_us] 80-99 Automated erythrocyte mean corpuscular h emoglobin (mass per erythrocyte) 32 pg 25-34 Automated erythrocyte mean corpuscular h emoglobin concentration measurement (mass/volume) 34 g/dL 32-36 Automated erythrocyte distribution width ratio 13. 5 % 10.0- 14.5 Automated blood platelet count [...] 10*3 1.0-4.0 Blood monocytes automated count (number/volume) 0. 8 10*3 0.0-1.0 Automated eosinophil count 0.1 10*3/uL 0 .0-0.3 Automated blood basophil count (count/volume) 0.0 10*3/uL 0.0-0.1 Whole blood basic metabolic panel - 04/25 02/09 04:09 Serum or plasma sodium measurement (moles/volume) 139 mmol/L 135-145 Serum or plasma potassium measurement (moles/volume) 3.6 mmol/L 3.6-5.0 Serum or plasma chloride measurement (moles/volume) 106 mmol/L 98-107 Carbon dioxide 19 mmol/L 21-32 Serum or plasma anion gap determination (moles/volume) 14 mmol/L 5-14 Serum or plasma urea nitrogen measurement (mass/volume ) 19 mg/dL 7-18 Serum or plasma creatinine measurement (mass/volume) 1.17 mg/dL 0.60-1.30 Serum or plasma urea nitrogen/creatinine mass ratio 16 NRG Serum or plasma creatinine measurement w ith calculation of estimated glomerular filtration rate > NRG Serum or plasma glucose measurement (mass/volume) 211 mg/dL 70-105 Serum or plasma calcium measurement (mass/volume) 8.4 mg/dL 8.5-10.1 Serum or plasma phosphate measurement (m ass/volume) - 05/22/18 04:09 Serum or plasma phosphate measurement (mass/volume) 3.7 mg/dL 2.3-4.7 Magnesium - 05/22/18 04:09 Magnesium 1.6 mg/dL 1.8-2.4 Serum or plasma creatine kinase measurem ent (enzymatic activity/volume) - 05/22/18 04:09 Serum or plasma creatine kinase measurem ent (enzymatic activity/volume) 815 U/L 30-200 Complete urinalysis with reflex to cultu re - 05/22/18 08:40 Urine color determination YELLOW NRG Urine clarity determination CLEAR NR G Urine pH measurement by test strip 5 5-9 Specific gravity of urine by test strip 1.025 1.016-1.022 Urine protein assay by test strip, semi-quantitative 3+ NEGATIVE Urine glucose detection by automated test strip 3+ NEGATIVE Erythrocytes detection in urine sediment by light micr oscopy 1+ NEGATIVE Urine ketones detection by automated test strip NE GATIVE NEGATIVE Urine nitrite detection by test strip NEGATIVE NEGATIVE Urine total bilirubin detection by test strip NEGA TIVE NEGATIVE Urine urobilinogen measurement by automated test strip (mass/volume) NORMAL NORMAL Urine leukocyte esterase detection by dipstick 2+ NEGATIVE Automated urine sediment erythrocyte cou nt by microscopy (number/high power field) NONE NRG Automated urine sediment leukocyte count by microscopy (number/high power field) [HPF] NRG Bacteria detection in urine sediment by light microsco py TRACE NRG Squamous epithelial cells detection in u rine sediment by light microscopy 2-5 NRG Crystals detection in urine sediment by light microsco py NONE NRG Casts detection in urine sediment by light microscopy NONE NRG Mucus detection in urine sediment by light microscopy NEGATIVE NRG Complete urinalysis with reflex to culture NO NRG Capillary blood glucose measurement by g lucometer (mass/volume) - 05/22/18 16:15 Capillary blood glucose measurement by glucometer (mas s/volume) 332 mg/dL 70-110 Capillary blood glucose measurement by g lucometer (mass/volume) - 05/22/18 21:22 Capillary blood glucose measurement by glucometer (mas s/volume) 266 mg/dL 70-110 Complete blood count (CBC) with automate d white blood cell (WBC) differential - 05/23/18 05:05 Blood leukocytes automated count (number/volume) 6.6 10*3/uL 4.3-11.0 Blood erythrocytes automated count (number/volume) 4.34 10*6/uL 4.35-5.85 Venous blood hemoglobin measurement (mass/volume) 13.5 g/dL 13.3-17.7 Blood hematocrit (volume fraction) 40 % 40-54 Automated erythrocyte mean corpuscular volume 92 [ foz_us] 80-99 Automated erythrocyte mean corpuscular h emoglobin (mass per erythrocyte) 31 pg 25-34 Automated erythrocyte mean corpuscular h emoglobin concentration measurement (mass/volume) 34 g/dL 32-36 Automated erythrocyte distribution width ratio 13. 2 % 10.0- 14.5 Automated blood platelet count [...] 10*3 1.0-4.0 Blood monocytes automated count (number/volume) 0. 5 10*3 0.0-1.0 Automated eosinophil count 0.0 10*3/uL 0 .0-0.3 Automated blood basophil count (count/volume) 0.0 10*3/uL 0.0-0.1 Comprehensive metabolic panel - 05/23/18 05:05 Serum or plasma sodium measurement (moles/volume) 139 mmol/L 135-145 Serum or plasma potassium measurement (moles/volume) 4.3 mmol/L 3.6-5.0 Serum or plasma chloride measurement (moles/volume) 107 mmol/L 98-107 Carbon dioxide 19 mmol/L 21-32 Serum or plasma anion gap determination (moles/volume) 13 mmol/L 5-14 Serum or plasma urea nitrogen measurement (mass/volume ) 24 mg/dL 7-18 Serum or plasma creatinine measurement (mass/volume) 1.10 mg/dL 0.60-1.30 Serum or plasma urea nitrogen/creatinine mass ratio 22 NRG Serum or plasma creatinine measurement w ith calculation of estimated glomerular filtration rate > NRG Serum or plasma glucose measurement (mass/volume) 293 mg/dL 70-105 Serum or plasma calcium measurement (mass/volume) 8.8 mg/dL 8.5-10.1 Serum or plasma total bilirubin measurement (mass/volu me) 0.4 mg/dL 0.1-1.0 Serum or plasma alkaline phosphatase juan antonio surement (enzymatic activity/volume) 50 U/L 40-136 Serum or plasma aspartate aminotransfera se measurement (enzymatic activity/volume) 59 U/L 5-34 Serum or plasma alanine aminotransferase measurement (enzymatic activity/volume) 64 U/L 0-55 Serum or plasma protein measurement (mass/volume) 6.8 g/dL 6.4-8.2 Serum or plasma albumin measurement (mass/volume) 3.8 g/dL 3.2-4.5 CALCIUM CORRECTED 9.0 mg/dL 8.5-10.1 Vancomycin trough - 05/23/18 05:05 Vancomycin trough 14.9 ug/mL 10.0-20.0 Capillary blood glucose measurement by g lucometer (mass/volume) - 05/23/18 11:05 Capillary blood glucose measurement by glucometer (mas s/volume) 295 mg/dL 70-110 Complete blood count (CBC) with automate d white blood cell (WBC) differential - 04/10/19 21:12 Blood leukocytes automated count (number/volume) 8.9 10*3/uL 4.3-11.0 Blood erythrocytes automated count (number/volume) 5.15 10*6/uL 4.35-5.85 Venous blood hemoglobin measurement (mass/volume) 15.9 g/dL 13.3-17.7 Blood hematocrit (volume fraction) 47 % 40-54 Automated erythrocyte mean corpuscular volume 91 [ foz_us] 80-99 Automated erythrocyte mean corpuscular h emoglobin (mass per erythrocyte) 31 pg 25-34 Automated erythrocyte mean corpuscular h emoglobin concentration measurement (mass/volume) 34 g/dL 32-36 Automated erythrocyte distribution width ratio 13. 9 % 10.0- 14.5 Automated blood platelet count (count/volume) 160 10*3/uL 130-400 Automated blood platelet mean volume measurement 11.1 [foz_us] 7.4-10.4 Automated blood neutrophils/100 leukocytes 68 % 42-75 Automated blood lymphocytes/100 leukocytes 20 % 12-44 Blood monocytes/100 leukocytes 11 % 0-12 Automated blood eosinophils/100 leukocytes 2 % 0-10 Automated blood basophils/100 leukocytes 0 % 0-10 Blood neutrophils automated count (number/volume) 6.1 10*3 1.8-7.8 Blood lymphocytes automated count (number/volume) 1.8 10*3 1.0-4.0 Blood monocytes automated count (number/volume) 1. 0 10*3 0.0-1.0 Automated eosinophil count 0.1 10*3/uL 0 .0-0.3 Automated blood basophil count (count/volume) 0.0 10*3/uL 0.0-0.1 PT panel in platelet poor plasma by coag ulation assay - 04/10/19 21:12 Prothrombin time (PT) in platelet poor plasma by coagu lation assay 13.2 s 12.2-14.7 INR in platelet poor plasma or blood by coagulation as say 1.0 0.8-1.4 Activated partial thromboplastin time (a PTT) in platelet poor plasma bycoagulation assay - 04/10/19 21:12 Activated partial thromboplastin time (a PTT) in platelet poor plasma bycoagulation assay 31 s 24-35 Comprehensive metabolic panel - 04/10/19 21:12 Serum or plasma sodium measurement (moles/volume) 138 mmol/L 135-145 Serum or plasma potassium measurement (moles/volume) 4.1 mmol/L 3.6-5.0 Serum or plasma chloride measurement (moles/volume) 103 mmol/L 98-107 Carbon dioxide 23 mmol/L 21-32 Serum or plasma anion gap determination (moles/volume) 12 mmol/L 5-14 Serum or plasma urea nitrogen measurement (mass/volume ) 19 mg/dL 7-18 Serum or plasma creatinine measurement (mass/volume) 1.31 mg/dL 0.60-1.30 Serum or plasma urea nitrogen/creatinine mass ratio 15 NRG Serum or plasma creatinine measurement w ith calculation of estimated glomerular filtration rate 57 NRG Serum or plasma glucose measurement (mass/volume) 296 mg/dL 70-105 Serum or plasma calcium measurement (mass/volume) 9.5 mg/dL 8.5-10.1 Serum or plasma total bilirubin measurement (mass/volu me) 0.5 mg/dL 0.1-1.0 Serum or plasma alkaline phosphatase juan antonio surement (enzymatic activity/volume) 77 U/L 40-136 Serum or plasma aspartate aminotransfera se measurement (enzymatic activity/volume) 28 U/L 5-34 Serum or plasma alanine aminotransferase measurement (enzymatic activity/volume) 48 U/L 0-55 Serum or plasma protein measurement (mass/volume) 6.9 g/dL 6.4-8.2 Serum or plasma albumin measurement (mass/volume) 4.0 g/dL 3.2-4.5 CALCIUM CORRECTED 9.5 mg/dL 8.5-10.1 Magnesium - 04/10/19 21:12 Magnesium 1.5 mg/dL 1.6-2.4 Serum or plasma troponin i.cardiac measu rement (mass/volume) - 04/10/19 21:12 Serum or plasma troponin i.cardiac measurement (mass/v olume) 0.107 ng/mL <0.028 Myoglobin, serum - 04/10/19 21:12 Myoglobin, serum 427.0 ng/mL 10.0-92.0 Methicillin resistant Staphylococcus aur eus (MRSA) screening culture - 04/10/19 23:57 Methicillin resistant Staphylococcus aureus (MRSA) scr eening culture NEG NRG Complete blood count (CBC) with automate d white blood cell (WBC) differential - 04/11/19 03:20 Blood leukocytes automated count (number/volume) 9.0 10*3/uL 4.3-11.0 Blood erythrocytes automated count (number/volume) 5.02 10*6/uL 4.35-5.85 Venous blood hemoglobin measurement (mass/volume) 15.7 g/dL 13.3-17.7 Blood hematocrit (volume fraction) 46 % 40-54 Automated erythrocyte mean corpuscular volume 92 [ foz_us] 80-99 Automated erythrocyte mean corpuscular h emoglobin (mass per erythrocyte) 31 pg 25-34 Automated erythrocyte mean corpuscular h emoglobin concentration measurement (mass/volume) 34 g/dL 32-36 Automated erythrocyte distribution width ratio 13. 9 % 10.0- 14.5 Automated blood platelet count (count/volume) 154 10*3/uL 130-400 Automated blood platelet mean volume measurement 11.1 [foz_us] 7.4-10.4 Automated blood neutrophils/100 leukocytes 51 % 42-75 Automated blood lymphocytes/100 leukocytes 36 % 12-44 Blood monocytes/100 leukocytes 11 % 0-12 Automated blood eosinophils/100 leukocytes 2 % 0-10 Automated blood basophils/100 leukocytes 0 % 0-10 Blood neutrophils automated count (number/volume) 4.6 10*3 1.8-7.8 Blood lymphocytes automated count (number/volume) 3.3 10*3 1.0-4.0 Blood monocytes automated count (number/volume) 1. 0 10*3 0.0-1.0 Automated eosinophil count 0.1 10*3/uL 0 .0-0.3 Automated blood basophil count (count/volume) 0.0 10*3/uL 0.0-0.1 Whole blood basic metabolic panel - 03/25 01/10 03:20 Serum or plasma sodium measurement (moles/volume) 140 mmol/L 135-145 Serum or plasma potassium measurement (moles/volume) 3.7 mmol/L 3.6-5.0 Serum or plasma chloride measurement (moles/volume) 105 mmol/L 98-107 Carbon dioxide 24 mmol/L 21-32 Serum or plasma anion gap determination (moles/volume) 11 mmol/L 5-14 Serum or plasma urea nitrogen measurement (mass/volume ) 20 mg/dL 7-18 Serum or plasma creatinine measurement (mass/volume) 1.12 mg/dL 0.60-1.30 Serum or plasma urea nitrogen/creatinine mass ratio 18 NRG Serum or plasma creatinine measurement w ith calculation of estimated glomerular filtration rate > NRG Serum or plasma glucose measurement (mass/volume) 123 mg/dL 70-105 Serum or plasma calcium measurement (mass/volume) 9.2 mg/dL 8.5-10.1 Serum or plasma phosphate measurement (m ass/volume) - 04/11/19 03:20 Serum or plasma phosphate measurement (mass/volume) 3.1 mg/dL 2.3-4.7 Magnesium - 04/11/19 03:20 Magnesium 1.8 mg/dL 1.6-2.4 Serum or plasma troponin i.cardiac measu rement (mass/volume) - 04/11/19 03:20 Serum or plasma troponin i.cardiac measurement (mass/v olume) 4.962 ng/mL <0.028 Lipid 1996 panel - 04/11/19 03:20 Serum or plasma triglyceride measurement (mass/volume) 511 mg/dL <150 Serum or plasma cholesterol measurement (mass/volume) 236 mg/dL < 200 Serum or plasma cholesterol in HDL measurement (mass/v olume) 38 mg/dL 40-60 Cholesterol in LDL [mass/volume] in serum or plasma by direct assay 135 mg/dL 1-129 Serum or plasma cholesterol in VLDL measurement (mass/ volume) TNP 5-40 Complete blood count (CBC) with automate d white blood cell (WBC) differential - 04/12/19 03:00 Blood leukocytes automated count (number/volume) 10.0 10*3/uL 4.3-11.0 Blood erythrocytes automated count (number/volume) 4.88 10*6/uL 4.35-5.85 Venous blood hemoglobin measurement (mass/volume) 15.2 g/dL 13.3-17.7 Blood hematocrit (volume fraction) 45 % 40-54 Automated erythrocyte mean corpuscular volume 92 [ foz_us] 80-99 Automated erythrocyte mean corpuscular h emoglobin (mass per erythrocyte) 31 pg 25-34 Automated erythrocyte mean corpuscular h emoglobin concentration measurement (mass/volume) 34 g/dL 32-36 Automated erythrocyte distribution width ratio 13. 7 % 10.0- 14.5 Automated blood platelet count (count/volume) 147 10*3/uL 130-400 Automated blood platelet mean volume measurement 11.5 [foz_us] 7.4-10.4 Automated blood neutrophils/100 leukocytes 68 % 42-75 Automated blood lymphocytes/100 leukocytes 21 % 12-44 Blood monocytes/100 leukocytes 10 % 0-12 Automated blood eosinophils/100 leukocytes 1 % 0-10 Automated blood basophils/100 leukocytes 0 % 0-10 Blood neutrophils automated count (number/volume) 6.8 10*3 1.8-7.8 Blood lymphocytes automated count (number/volume) 2.1 10*3 1.0-4.0 Blood monocytes automated count (number/volume) 1. 0 10*3 0.0-1.0 Automated eosinophil count 0.1 10*3/uL 0 .0-0.3 Automated blood basophil count (count/volume) 0.0 10*3/uL 0.0-0.1 Whole blood basic metabolic panel - 03/25 02/10 03:05 Serum or plasma sodium measurement (moles/volume) 143 mmol/L 135-145 Serum or plasma potassium measurement (moles/volume) 3.8 mmol/L 3.6-5.0 Serum or plasma chloride measurement (moles/volume) 107 mmol/L 98-107 Carbon dioxide 21 mmol/L 21-32 Serum or plasma anion gap determination (moles/volume) 15 mmol/L 5-14 Serum or plasma urea nitrogen measurement (mass/volume ) 15 mg/dL 7-18 Serum or plasma creatinine measurement (mass/volume) 0.90 mg/dL 0.60-1.30 Serum or plasma urea nitrogen/creatinine mass ratio 17 NRG Serum or plasma creatinine measurement w ith calculation of estimated glomerular filtration rate > NRG Serum or plasma glucose measurement (mass/volume) 88 mg/dL 70-105 Serum or plasma calcium measurement (mass/volume) 9.4 mg/dL 8.5-10.1 Serum or plasma phosphate measurement (m ass/volume) - 04/12/19 03:05 Serum or plasma phosphate measurement (mass/volume) 3.5 mg/dL 2.3-4.7 Magnesium - 04/12/19 03:05 Magnesium 1.8 mg/dL 1.6-2.4 Complete blood count (CBC) with automate d white blood cell (WBC) differential - 04/13/19 02:55 Blood leukocytes automated count (number/volume) 10.6 10*3/uL 4.3-11.0 Blood erythrocytes automated count (number/volume) 4.71 10*6/uL 4.35-5.85 Venous blood hemoglobin measurement (mass/volume) 14.5 g/dL 13.3-17.7 Blood hematocrit (volume fraction) 43 % 40-54 Automated erythrocyte mean corpuscular volume 92 [ foz_us] 80-99 Automated erythrocyte mean corpuscular h emoglobin (mass per erythrocyte) 31 pg 25-34 Automated erythrocyte mean corpuscular h emoglobin concentration measurement (mass/volume) 33 g/dL 32-36 Automated erythrocyte distribution width ratio 13. 9 % 10.0- 14.5 Automated blood platelet count (count/volume) 141 10*3/uL 130-400 Automated blood platelet mean volume measurement 11.2 [foz_us] 7.4-10.4 Automated blood neutrophils/100 leukocytes 72 % 42-75 Automated blood lymphocytes/100 leukocytes 18 % 12-44 Blood monocytes/100 leukocytes 10 % 0-12 Automated blood eosinophils/100 leukocytes 1 % 0-10 Automated blood basophils/100 leukocytes 0 % 0-10 Blood neutrophils automated count (number/volume) 7.6 10*3 1.8-7.8 Blood lymphocytes automated count (number/volume) 1.9 10*3 1.0-4.0 Blood monocytes automated count (number/volume) 1. 0 10*3 0.0-1.0 Automated eosinophil count 0.1 10*3/uL 0 .0-0.3 Automated blood basophil count (count/volume) 0.0 10*3/uL 0.0-0.1 Whole blood basic metabolic panel - 03/26 02:55 Serum or plasma sodium measurement (moles/volume) 142 mmol/L 135-145 Serum or plasma potassium measurement (moles/volume) 4.0 mmol/L 3.6-5.0 Serum or plasma chloride measurement (moles/volume) 108 mmol/L 98-107 Carbon dioxide 23 mmol/L 21-32 Serum or plasma anion gap determination (moles/volume) 11 mmol/L 5-14 Serum or plasma urea nitrogen measurement (mass/volume ) 17 mg/dL 7-18 Serum or plasma creatinine measurement (mass/volume) 1.14 mg/dL 0.60-1.30 Serum or plasma urea nitrogen/creatinine mass ratio 15 NRG Serum or plasma creatinine measurement w ith calculation of estimated glomerular filtration rate > NRG Serum or plasma glucose measurement (mass/volume) 133 mg/dL 70-105 Serum or plasma calcium measurement (mass/volume) 9.2 mg/dL 8.5-10.1 Serum or plasma phosphate measurement (m ass/volume) - 04/13/19 02:55 Serum or plasma phosphate measurement (mass/volume) 3.8 mg/dL 2.3-4.7 Magnesium - 04/13/19 02:55 Magnesium 1.8 mg/dL 1.6-2.4 Serum or plasma troponin i.cardiac measu rement (mass/volume) - 04/13/19 02:55 Serum or plasma troponin i.cardiac measurement (mass/v olume) 3.251 ng/mL <0.028 Complete blood count (CBC) with automate d white blood cell (WBC) differential - 05/03/19 20:46 Blood leukocytes automated count (number/volume) 9.3 10*3/uL 4.3-11.0 Blood erythrocytes automated count (number/volume) 4.70 10*6/uL 4.35-5.85 Venous blood hemoglobin measurement (mass/volume) 14.9 g/dL 13.3-17.7 Blood hematocrit (volume fraction) 43 % 40-54 Automated erythrocyte mean corpuscular volume 91 [ foz_us] 80-99 Automated erythrocyte mean corpuscular h emoglobin (mass per erythrocyte) 32 pg 25-34 Automated erythrocyte mean corpuscular h emoglobin concentration measurement (mass/volume) 35 g/dL 32-36 Automated erythrocyte distribution width ratio 13. 9 % 10.0- 14.5 Automated blood platelet count (count/volume) 181 10*3/uL 130-400 Automated blood platelet mean volume measurement 10.8 [foz_us] 7.4-10.4 Automated blood neutrophils/100 leukocytes 65 % 42-75 Automated blood lymphocytes/100 leukocytes 22 % 12-44 Blood monocytes/100 leukocytes 11 % 0-12 Automated blood eosinophils/100 leukocytes 2 % 0-10 Automated blood basophils/100 leukocytes 0 % 0-10 Blood neutrophils automated count (number/volume) 6.1 10*3 1.8-7.8 Blood lymphocytes automated count (number/volume) 2.1 10*3 1.0-4.0 Blood monocytes automated count (number/volume) 1. 0 10*3 0.0-1.0 Automated eosinophil count 0.2 10*3/uL 0 .0-0.3 Automated blood basophil count (count/volume) 0.0 10*3/uL 0.0-0.1 Comprehensive metabolic panel - 05/03/19 20:46 Serum or plasma sodium measurement (moles/volume) 142 mmol/L 135-145 Serum or plasma potassium measurement (moles/volume) 4.2 mmol/L 3.6-5.0 Serum or plasma chloride measurement (moles/volume) 109 mmol/L 98-107 Carbon dioxide 20 mmol/L 21-32 Serum or plasma anion gap determination (moles/volume) 13 mmol/L 5-14 Serum or plasma urea nitrogen measurement (mass/volume ) 23 mg/dL 7-18 Serum or plasma creatinine measurement (mass/volume) 1.59 mg/dL 0.60-1.30 Serum or plasma urea nitrogen/creatinine mass ratio 14 NRG Serum or plasma creatinine measurement w ith calculation of estimated glomerular filtration rate 46 NRG Serum or plasma glucose measurement (mass/volume) 244 mg/dL 70-105 Serum or plasma calcium measurement (mass/volume) 9.1 mg/dL 8.5-10.1 Serum or plasma total bilirubin measurement (mass/volu me) 0.4 mg/dL 0.1-1.0 Serum or plasma alkaline phosphatase juan antonio surement (enzymatic activity/volume) 72 U/L 40-136 Serum or plasma aspartate aminotransfera se measurement (enzymatic activity/volume) 31 U/L 5-34 Serum or plasma alanine aminotransferase measurement (enzymatic activity/volume) 54 U/L 0-55 Serum or plasma protein measurement (mass/volume) 7.1 g/dL 6.4-8.2 Serum or plasma albumin measurement (mass/volume) 4.2 g/dL 3.2-4.5 CALCIUM CORRECTED 8.9 mg/dL 8.5-10.1 Magnesium - 05/03/19 20:46 Magnesium 1.6 mg/dL 1.6-2.4 PT panel in platelet poor plasma by coag ulation assay - 05/03/19 20:46 Prothrombin time (PT) in platelet poor plasma by coagu lation assay 14.1 s 12.2-14.7 INR in platelet poor plasma or blood by coagulation as say 1.0 0.8-1.4 Activated partial thromboplastin time (a PTT) in platelet poor plasma bycoagulation assay - 05/03/19 20:46 Activated partial thromboplastin time (a PTT) in platelet poor plasma bycoagulation assay 29 s 24-35 Serum or plasma troponin i.cardiac measu rement (mass/volume) - 05/03/19 20:46 Serum or plasma troponin i.cardiac measurement (mass/v olume) < ng/mL <0.028 Myoglobin, serum - 05/03/19 20:46 Myoglobin, serum 68.0 ng/mL 10.0-92.0 Serum or plasma lithium measurement (mol es/volume) - 05/03/19 20:46 BNP PT 15.7 pg/mL <100.0 Complete urinalysis with reflex to cultu re - 05/03/19 21:31 Urine color determination YELLOW NRG Urine clarity determination CLEAR NR G Urine pH measurement by test strip 5.5 5-9 Specific gravity of urine by test strip >= 1.016-1.022 Urine protein assay by test strip, semi-quantitative 2+ NEGATIVE Urine glucose detection by automated test strip 2+ NEGATIVE Erythrocytes detection in urine sediment by light micr oscopy NEGATIVE NEGATIVE Urine ketones detection by automated test strip NE GATIVE NEGATIVE Urine nitrite detection by test strip NEGATIVE NEGATIVE Urine total bilirubin detection by test strip NEGA TIVE NEGATIVE Urine urobilinogen measurement by automated test strip (mass/volume) 0.2 mg/dL < = 1.0 Urine leukocyte esterase detection by dipstick NEG ATIVE NEGATIVE Automated urine sediment erythrocyte cou nt by microscopy (number/high power field) NONE NRG Automated urine sediment leukocyte count by microscopy (number/high power field) NONE NRG Bacteria detection in urine sediment by light microsco py NEGATIVE NRG Crystals detection in urine sediment by light microsco py PRESENT NRG Casts detection in urine sediment by light microscopy NONE NRG Mucus detection in urine sediment by light microscopy NEGATIVE NRG Complete urinalysis with reflex to culture NO NRG Amorphous sediment detection in urine sediment by ligh t microscopy FEW JESSICA URATES NRG Complete blood count (CBC) with automate d white blood cell (WBC) differential - 05/04/19 02:45 Blood leukocytes automated count (number/volume) 11.0 10*3/uL 4.3-11.0 Blood erythrocytes automated count (number/volume) 4.89 10*6/uL 4.35-5.85 Venous blood hemoglobin measurement (mass/volume) 15.1 g/dL 13.3-17.7 Blood hematocrit (volume fraction) 44 % 40-54 Automated erythrocyte mean corpuscular volume 90 [ foz_us] 80-99 Automated erythrocyte mean corpuscular h emoglobin (mass per erythrocyte) 31 pg 25-34 Automated erythrocyte mean corpuscular h emoglobin concentration measurement (mass/volume) 34 g/dL 32-36 Automated erythrocyte distribution width ratio 14. 0 % 10.0- 14.5 Automated blood platelet count (count/volume) 189 10*3/uL 130-400 Automated blood platelet mean volume measurement 10.9 [foz_us] 7.4-10.4 Automated blood neutrophils/100 leukocytes 60 % 42-75 Automated blood lymphocytes/100 leukocytes 27 % 12-44 Blood monocytes/100 leukocytes 10 % 0-12 Automated blood eosinophils/100 leukocytes 2 % 0-10 Automated blood basophils/100 leukocytes 0 % 0-10 Blood neutrophils automated count (number/volume) 6.6 10*3 1.8-7.8 Blood lymphocytes automated count (number/volume) 3.0 10*3 1.0-4.0 Blood monocytes automated count (number/volume) 1. 1 10*3 0.0-1.0 Automated eosinophil count 0.2 10*3/uL 0 .0-0.3 Automated blood basophil count (count/volume) 0.0 10*3/uL 0.0-0.1 Comprehensive metabolic panel - 05/04/19 02:45 Serum or plasma sodium measurement (moles/volume) 142 mmol/L 135-145 Serum or plasma potassium measurement (moles/volume) 4.3 mmol/L 3.6-5.0 Serum or plasma chloride measurement (moles/volume) 110 mmol/L 98-107 Carbon dioxide 22 mmol/L 21-32 Serum or plasma anion gap determination (moles/volume) 10 mmol/L 5-14 Serum or plasma urea nitrogen measurement (mass/volume ) 21 mg/dL 7-18 Serum or plasma creatinine measurement (mass/volume) 1.38 mg/dL 0.60-1.30 Serum or plasma urea nitrogen/creatinine mass ratio 15 NRG Serum or plasma creatinine measurement w ith calculation of estimated glomerular filtration rate 54 NRG Serum or plasma glucose measurement (mass/volume) 124 mg/dL 70-105 Serum or plasma calcium measurement (mass/volume) 9.4 mg/dL 8.5-10.1 Serum or plasma total bilirubin measurement (mass/volu me) 0.5 mg/dL 0.1-1.0 Serum or plasma alkaline phosphatase juan antonio surement (enzymatic activity/volume) 62 U/L 40-136 Serum or plasma aspartate aminotransfera se measurement (enzymatic activity/volume) 29 U/L 5-34 Serum or plasma alanine aminotransferase measurement (enzymatic activity/volume) 55 U/L 0-55 Serum or plasma protein measurement (mass/volume) 7.3 g/dL 6.4-8.2 Serum or plasma albumin measurement (mass/volume) 4.4 g/dL 3.2-4.5 CALCIUM CORRECTED 9.1 mg/dL 8.5-10.1 Serum or plasma troponin i.cardiac measu rement (mass/volume) - 05/04/19 02:45 Serum or plasma troponin i.cardiac measurement (mass/v olume) < ng/mL <0.028 Lipid 1996 panel - 05/04/19 02:45 Serum or plasma triglyceride measurement (mass/volume) 284 mg/dL <150 Serum or plasma cholesterol measurement (mass/volume) 184 mg/dL < 200 Serum or plasma cholesterol in HDL measurement (mass/v olume) 33 mg/dL 40-60 Cholesterol in LDL [mass/volume] in serum or plasma by direct assay 106 mg/dL 1-129 Serum or plasma cholesterol in VLDL measurement (mass/ volume) 57 mg/dL 5-40 Serum or plasma troponin i.cardiac measu rement (mass/volume) - 05/04/19 09:05 Serum or plasma troponin i.cardiac measurement (mass/v olume) < ng/mL <0.028 Complete blood count (CBC) with automate d white blood cell (WBC) differential - 05/20/19 21:02 Blood leukocytes automated count (number/volume) 8.0 10*3/uL 4.3-11.0 Blood erythrocytes automated count (number/volume) 4.81 10*6/uL 4.35-5.85 Venous blood hemoglobin measurement (mass/volume) 15.2 g/dL 13.3-17.7 Blood hematocrit (volume fraction) 43 % 40-54 Automated erythrocyte mean corpuscular volume 90 [ foz_us] 80-99 Automated erythrocyte mean corpuscular h emoglobin (mass per erythrocyte) 32 pg 25-34 Automated erythrocyte mean corpuscular h emoglobin concentration measurement (mass/volume) 35 g/dL 32-36 Automated erythrocyte distribution width ratio 13. 5 % 10.0- 14.5 Automated blood platelet count (count/volume) 159 10*3/uL 130-400 Automated blood platelet mean volume measurement 11.6 [foz_us] 7.4-10.4 Automated blood neutrophils/100 leukocytes 60 % 42-75 Automated blood lymphocytes/100 leukocytes 25 % 12-44 Blood monocytes/100 leukocytes 10 % 0-12 Automated blood eosinophils/100 leukocytes 4 % 0-10 Automated blood basophils/100 leukocytes 0 % 0-10 Blood neutrophils automated count (number/volume) 4.8 10*3 1.8-7.8 Blood lymphocytes automated count (number/volume) 2.0 10*3 1.0-4.0 Blood monocytes automated count (number/volume) 0. 8 10*3 0.0-1.0 Automated eosinophil count 0.4 10*3/uL 0 .0-0.3 Automated blood basophil count (count/volume) 0.0 10*3/uL 0.0-0.1 PT panel in platelet poor plasma by coag ulation assay - 05/20/19 21:02 Prothrombin time (PT) in platelet poor plasma by coagu lation assay 13.4 s 12.2-14.7 INR in platelet poor plasma or blood by coagulation as say 1.0 0.8-1.4 Activated partial thromboplastin time (a PTT) in platelet poor plasma bycoagulation assay - 05/20/19 21:02 Activated partial thromboplastin time (a PTT) in platelet poor plasma bycoagulation assay 30 s 24-35 Comprehensive metabolic panel - 05/20/19 21:02 Serum or plasma sodium measurement (moles/volume) 139 mmol/L 135-145 Serum or plasma potassium measurement (moles/volume) 3.9 mmol/L 3.6-5.0 Serum or plasma chloride measurement (moles/volume) 105 mmol/L 98-107 Carbon dioxide 20 mmol/L 21-32 Serum or plasma anion gap determination (moles/volume) 14 mmol/L 5-14 Serum or plasma urea nitrogen measurement (mass/volume ) 23 mg/dL 7-18 Serum or plasma creatinine measurement (mass/volume) 1.50 mg/dL 0.60-1.30 Serum or plasma urea nitrogen/creatinine mass ratio 15 NRG Serum or plasma creatinine measurement w ith calculation of estimated glomerular filtration rate 49 NRG Serum or plasma glucose measurement (mass/volume) 255 mg/dL 70-105 Serum or plasma calcium measurement (mass/volume) 9.4 mg/dL 8.5-10.1 Serum or plasma total bilirubin measurement (mass/volu me) 0.3 mg/dL 0.1-1.0 Serum or plasma alkaline phosphatase juan antonio surement (enzymatic activity/volume) 77 U/L 40-136 Serum or plasma aspartate aminotransfera se measurement (enzymatic activity/volume) 30 U/L 5-34 Serum or plasma alanine aminotransferase measurement (enzymatic activity/volume) 47 U/L 0-55 Serum or plasma protein measurement (mass/volume) 7.2 g/dL 6.4-8.2 Serum or plasma albumin measurement (mass/volume) 4.1 g/dL 3.2-4.5 CALCIUM CORRECTED 9.3 mg/dL 8.5-10.1 Magnesium - 05/20/19 21:02 Magnesium 1.6 mg/dL 1.6-2.4 Myoglobin, serum - 05/20/19 21:02 Myoglobin, serum 118.9 ng/mL 10.0-92.0 Serum or plasma troponin i.cardiac measu rement (mass/volume) - 05/20/19 21:02 Serum or plasma troponin i.cardiac measurement (mass/v olume) < ng/mL <0.028 Serum or plasma lithium measurement (mol es/volume) - 05/20/19 21:02 BNP PT 20.0 pg/mL <100.0 Complete blood count (CBC) with automate d white blood cell (WBC) differential - 05/30/19 09:07 Blood leukocytes automated count (number/volume) 9.0 10*3/uL 4.3-11.0 Blood erythrocytes automated count (number/volume) 5.02 10*6/uL 4.35-5.85 Venous blood hemoglobin measurement (mass/volume) 15.6 g/dL 13.3-17.7 Blood hematocrit (volume fraction) 46 % 40-54 Automated erythrocyte mean corpuscular volume 91 [ foz_us] 80-99 Automated erythrocyte mean corpuscular h emoglobin (mass per erythrocyte) 31 pg 25-34 Automated erythrocyte mean corpuscular h emoglobin concentration measurement (mass/volume) 34 g/dL 32-36 Automated erythrocyte distribution width ratio 13. 7 % 10.0- 14.5 Automated blood platelet count (count/volume) 187 10*3/uL 130-400 Automated blood platelet mean volume measurement 11.4 [foz_us] 7.4-10.4 Automated blood neutrophils/100 leukocytes 61 % 42-75 Automated blood lymphocytes/100 leukocytes 24 % 12-44 Blood monocytes/100 leukocytes 10 % 0-12 Automated blood eosinophils/100 leukocytes 5 % 0-10 Automated blood basophils/100 leukocytes 1 % 0-10 Blood neutrophils automated count (number/volume) 5.5 10*3 1.8-7.8 Blood lymphocytes automated count (number/volume) 2.1 10*3 1.0-4.0 Blood monocytes automated count (number/volume) 0. 9 10*3 0.0-1.0 Automated eosinophil count 0.4 10*3/uL 0 .0-0.3 Automated blood basophil count (count/volume) 0.1 10*3/uL 0.0-0.1 PT panel in platelet poor plasma by coag ulation assay - 05/30/19 09:07 Prothrombin time (PT) in platelet poor plasma by coagu lation assay 13.6 s 12.2-14.7 INR in platelet poor plasma or blood by coagulation as say 1.0 0.8-1.4 Activated partial thromboplastin time (a PTT) in platelet poor plasma bycoagulation assay - 05/30/19 09:07 Activated partial thromboplastin time (a PTT) in platelet poor plasma bycoagulation assay 28 s 24-35 Comprehensive metabolic panel - 05/30/19 09:07 Serum or plasma sodium measurement (moles/volume) 139 mmol/L 135-145 Serum or plasma potassium measurement (moles/volume) 4.3 mmol/L 3.6-5.0 Serum or plasma chloride measurement (moles/volume) 105 mmol/L 98-107 Carbon dioxide 20 mmol/L 21-32 Serum or plasma anion gap determination (moles/volume) 14 mmol/L 5-14 Serum or plasma urea nitrogen measurement (mass/volume ) 34 mg/dL 7-18 Serum or plasma creatinine measurement (mass/volume) 1.68 mg/dL 0.60-1.30 Serum or plasma urea nitrogen/creatinine mass ratio 20 NRG Serum or plasma creatinine measurement w ith calculation of estimated glomerular filtration rate 43 NRG Serum or plasma glucose measurement (mass/volume) 297 mg/dL 70-105 Serum or plasma calcium measurement (mass/volume) 9.6 mg/dL 8.5-10.1 Serum or plasma total bilirubin measurement (mass/volu me) 0.5 mg/dL 0.1-1.0 Serum or plasma alkaline phosphatase juan antonio surement (enzymatic activity/volume) 59 U/L 40-136 Serum or plasma aspartate aminotransfera se measurement (enzymatic activity/volume) 38 U/L 5-34 Serum or plasma alanine aminotransferase measurement (enzymatic activity/volume) 56 U/L 0-55 Serum or plasma protein measurement (mass/volume) 7.5 g/dL 6.4-8.2 Serum or plasma albumin measurement (mass/volume) 4.5 g/dL 3.2-4.5 CALCIUM CORRECTED 9.2 mg/dL 8.5-10.1 Magnesium - 05/30/19 09:07 Magnesium 1.5 mg/dL 1.6-2.4 Myoglobin, serum - 05/30/19 09:07 Myoglobin, serum 137.0 ng/mL 10.0-92.0 Lipase - 05/30/19 09:07 Lipase 44 U/L 8-78 Serum or plasma troponin i.cardiac measu rement (mass/volume) - 05/30/19 09:07 Serum or plasma troponin i.cardiac measurement (mass/v olume) < ng/mL <0.028 Fibrin D-dimer FEU measurement in platel et poor plasma (mass/volume) - 05/30/19 09:07 Fibrin D-dimer FEU measurement in platelet poor plasma (mass/volume) 0.44 ug/mL 0.00-0.49 Serum or plasma lithium measurement (mol es/volume) - 05/30/19 09:07 BNP PT < 10.0 <100.0 Serum or plasma troponin i.cardiac measu rement (mass/volume) - 05/30/19 13:13 Serum or plasma troponin i.cardiac measurement (mass/v olume) < ng/mL <0.028 Automated blood complete blood count (he mogram) panel - 05/31/19 04:12 Blood leukocytes automated count (number/volume) 6.9 10*3/uL 4.3-11.0 Blood erythrocytes automated count (number/volume) 4.51 10*6/uL 4.35-5.85 Venous blood hemoglobin measurement (mass/volume) 14.2 g/dL 13.3-17.7 Blood hematocrit (volume fraction) 43 % 40-54 Automated erythrocyte mean corpuscular volume 94 [ foz_us] 80-99 Automated erythrocyte mean corpuscular h emoglobin (mass per erythrocyte) 32 pg 25-34 Automated erythrocyte mean corpuscular h emoglobin concentration measurement (mass/volume) 33 g/dL 32-36 Automated erythrocyte distribution width ratio 13. 5 % 10.0- 14.5 Automated blood platelet count (count/volume) 159 10*3/uL 130-400 Automated blood platelet mean volume measurement 12.1 [foz_us] 7.4-10.4 Whole blood basic metabolic panel - 12/11 04:12 Serum or plasma sodium measurement (moles/volume) 143 mmol/L 135-145 Serum or plasma potassium measurement (moles/volume) 4.1 mmol/L 3.6-5.0 Serum or plasma chloride measurement (moles/volume) 104 mmol/L 98-107 Carbon dioxide 24 mmol/L 21-32 Serum or plasma anion gap determination (moles/volume) 15 mmol/L 5-14 Serum or plasma urea nitrogen measurement (mass/volume ) 43 mg/dL 7-18 Serum or plasma creatinine measurement (mass/volume) 2.20 mg/dL 0.60-1.30 Serum or plasma urea nitrogen/creatinine mass ratio 20 NRG Serum or plasma creatinine measurement w ith calculation of estimated glomerular filtration rate 31 NRG Serum or plasma glucose measurement (mass/volume) 176 mg/dL 70-105 Serum or plasma calcium measurement (mass/volume) 9.4 mg/dL 8.5-10.1 Lipid 1996 panel - 05/31/19 04:12 Serum or plasma triglyceride measurement (mass/volume) 500 mg/dL <150 Serum or plasma cholesterol measurement (mass/volume) 157 mg/dL < 200 Serum or plasma cholesterol in HDL measurement (mass/v olume) 28 mg/dL 40-60 Cholesterol in LDL [mass/volume] in serum or plasma by direct assay 80 mg/dL 1-129 Serum or plasma cholesterol in VLDL measurement (mass/ volume) 100 mg/dL 5-40 Serum or plasma troponin i.cardiac measu rement (mass/volume) - 05/31/19 04:12 Serum or plasma troponin i.cardiac measurement (mass/v olume) < ng/mL <0.028 Lipid 1996 panel - 05/31/19 04:12 Serum or plasma triglyceride measurement (mass/volume) 500 mg/dL <150 Serum or plasma cholesterol measurement (mass/volume) 157 mg/dL < 200 Serum or plasma cholesterol in HDL measurement (mass/v olume) 28 mg/dL 40-60 Cholesterol in LDL [mass/volume] in serum or plasma by direct assay 80 mg/dL 1-129 Serum or plasma cholesterol in VLDL measurement (mass/ volume) 100 mg/dL 5-40 Complete blood count (CBC) with automate d white blood cell (WBC) differential - 06/08/19 08:35 Blood leukocytes automated count (number/volume) 11.7 10*3/uL 4.3-11.0 Blood erythrocytes automated count (number/volume) 4.70 10*6/uL 4.35-5.85 Venous blood hemoglobin measurement (mass/volume) 14.7 g/dL 13.3-17.7 Blood hematocrit (volume fraction) 42 % 40-54 Automated erythrocyte mean corpuscular volume 90 [ foz_us] 80-99 Automated erythrocyte mean corpuscular h emoglobin (mass per erythrocyte) 31 pg 25-34 Automated erythrocyte mean corpuscular h emoglobin concentration measurement (mass/volume) 35 g/dL 32-36 Automated erythrocyte distribution width ratio 13. 2 % 10.0- 14.5 Automated blood platelet count (count/volume) 163 10*3/uL 130-400 Automated blood platelet mean volume measurement 11.7 [foz_us] 7.4-10.4 Automated blood neutrophils/100 leukocytes 69 % 42-75 Automated blood lymphocytes/100 leukocytes 14 % 12-44 Blood monocytes/100 leukocytes 13 % 0-12 Automated blood eosinophils/100 leukocytes 4 % 0-10 Automated blood basophils/100 leukocytes 0 % 0-10 Blood neutrophils automated count (number/volume) 8.0 10*3 1.8-7.8 Blood lymphocytes automated count (number/volume) 1.7 10*3 1.0-4.0 Blood monocytes automated count (number/volume) 1. 5 10*3 0.0-1.0 Automated eosinophil count 0.5 10*3/uL 0 .0-0.3 Automated blood basophil count (count/volume) 0.0 10*3/uL 0.0-0.1 Comprehensive metabolic panel - 06/08/19 08:35 Serum or plasma sodium measurement (moles/volume) 138 mmol/L 135-145 Serum or plasma potassium measurement (moles/volume) 4.2 mmol/L 3.6-5.0 Serum or plasma chloride measurement (moles/volume) 104 mmol/L 98-107 Carbon dioxide 24 mmol/L 21-32 Serum or plasma anion gap determination (moles/volume) 10 mmol/L 5-14 Serum or plasma urea nitrogen measurement (mass/volume ) 35 mg/dL 7-18 Serum or plasma creatinine measurement (mass/volume) 1.68 mg/dL 0.60-1.30 Serum or plasma urea nitrogen/creatinine mass ratio 21 NRG Serum or plasma creatinine measurement w ith calculation of estimated glomerular filtration rate 43 NRG Serum or plasma glucose measurement (mass/volume) 265 mg/dL 70-105 Serum or plasma calcium measurement (mass/volume) 9.7 mg/dL 8.5-10.1 Serum or plasma total bilirubin measurement (mass/volu me) 0.6 mg/dL 0.1-1.0 Serum or plasma alkaline phosphatase juan antonio surement (enzymatic activity/volume) 66 U/L 40-136 Serum or plasma aspartate aminotransfera se measurement (enzymatic activity/volume) 29 U/L 5-34 Serum or plasma alanine aminotransferase measurement (enzymatic activity/volume) 46 U/L 0-55 Serum or plasma protein measurement (mass/volume) 7.4 g/dL 6.4-8.2 Serum or plasma albumin measurement (mass/volume) 4.2 g/dL 3.2-4.5 CALCIUM CORRECTED 9.5 mg/dL 8.5-10.1 Magnesium - 06/08/19 08:35 Magnesium 1.7 mg/dL 1.6-2.4 Myoglobin, serum - 06/08/19 08:35 Myoglobin, serum 143.1 ng/mL 10.0-92.0 Serum or plasma troponin i.cardiac measu rement (mass/volume) - 06/08/19 08:35 Serum or plasma troponin i.cardiac measurement (mass/v olume) < ng/mL <0.028 Serum or plasma lithium measurement (mol es/volume) - 06/08/19 08:35 BNP PT < 10.0 <100.0 Capillary blood glucose measurement by g lucometer (mass/volume) - 06/08/19 13:48 Capillary blood glucose measurement by glucometer (mas s/volume) 170 mg/dL 70-110 Serum or plasma troponin i.cardiac measu rement (mass/volume) - 06/08/19 14:10 Serum or plasma troponin i.cardiac measurement (mass/v olume) < ng/mL <0.028 Myoglobin, serum - 06/08/19 14:10 Myoglobin, serum 130.1 ng/mL 10.0-92.0 Capillary blood glucose measurement by g lucometer (mass/volume) - 06/08/19 15:58 Capillary blood glucose measurement by glucometer (mas s/volume) 185 mg/dL 70-110 Complete blood count (CBC) with automate d white blood cell (WBC) differential - 06/09/19 03:34 Blood leukocytes automated count (number/volume) 10.5 10*3/uL 4.3-11.0 Blood erythrocytes automated count (number/volume) 4.69 10*6/uL 4.35-5.85 Venous blood hemoglobin measurement (mass/volume) 14.8 g/dL 13.3-17.7 Blood hematocrit (volume fraction) 43 % 40-54 Automated erythrocyte mean corpuscular volume 91 [ foz_us] 80-99 Automated erythrocyte mean corpuscular h emoglobin (mass per erythrocyte) 32 pg 25-34 Automated erythrocyte mean corpuscular h emoglobin concentration measurement (mass/volume) 35 g/dL 32-36 Automated erythrocyte distribution width ratio 13. 5 % 10.0- 14.5 Automated blood platelet count (count/volume) 161 10*3/uL 130-400 Automated blood platelet mean volume measurement 11.5 [foz_us] 7.4-10.4 Automated blood neutrophils/100 leukocytes 64 % 42-75 Automated blood lymphocytes/100 leukocytes 20 % 12-44 Blood monocytes/100 leukocytes 14 % 0-12 Automated blood eosinophils/100 leukocytes 2 % 0-10 Automated blood basophils/100 leukocytes 0 % 0-10 Blood neutrophils automated count (number/volume) 6.7 10*3 1.8-7.8 Blood lymphocytes automated count (number/volume) 2.1 10*3 1.0-4.0 Blood monocytes automated count (number/volume) 1. 4 10*3 0.0-1.0 Automated eosinophil count 0.2 10*3/uL 0 .0-0.3 Automated blood basophil count (count/volume) 0.0 10*3/uL 0.0-0.1 Comprehensive metabolic panel - 06/09/19 03:34 Serum or plasma sodium measurement (moles/volume) 138 mmol/L 135-145 Serum or plasma potassium measurement (moles/volume) 4.0 mmol/L 3.6-5.0 Serum or plasma chloride measurement (moles/volume) 103 mmol/L 98-107 Carbon dioxide 22 mmol/L 21-32 Serum or plasma anion gap determination (moles/volume) 13 mmol/L 5-14 Serum or plasma urea nitrogen measurement (mass/volume ) 28 mg/dL 7-18 Serum or plasma creatinine measurement (mass/volume) 1.53 mg/dL 0.60-1.30 Serum or plasma urea nitrogen/creatinine mass ratio 18 NRG Serum or plasma creatinine measurement w ith calculation of estimated glomerular filtration rate 48 NRG Serum or plasma glucose measurement (mass/volume) 156 mg/dL 70-105 Serum or plasma calcium measurement (mass/volume) 9.5 mg/dL 8.5-10.1 Serum or plasma total bilirubin measurement (mass/volu me) 0.6 mg/dL 0.1-1.0 Serum or plasma alkaline phosphatase juan antonio surement (enzymatic activity/volume) 53 U/L 40-136 Serum or plasma aspartate aminotransfera se measurement (enzymatic activity/volume) 23 U/L 5-34 Serum or plasma alanine aminotransferase measurement (enzymatic activity/volume) 40 U/L 0-55 Serum or plasma protein measurement (mass/volume) 7.4 g/dL 6.4-8.2 Serum or plasma albumin measurement (mass/volume) 4.2 g/dL 3.2-4.5 CALCIUM CORRECTED 9.3 mg/dL 8.5-10.1 Lipid 1996 panel - 06/09/19 03:34 Serum or plasma triglyceride measurement (mass/volume) 566 mg/dL <150 Serum or plasma cholesterol measurement (mass/volume) 179 mg/dL < 200 Serum or plasma cholesterol in HDL measurement (mass/v olume) 31 mg/dL 40-60 Cholesterol in LDL [mass/volume] in serum or plasma by direct assay 79 mg/dL 1-129 Serum or plasma cholesterol in VLDL measurement (mass/ volume) 113 mg/dL 5-40 Complete blood count (CBC) with automate d white blood cell (WBC) differential - 09/19/19 11:36 Blood leukocytes automated count (number/volume) 8.7 10*3/uL 4.3-11.0 Blood erythrocytes automated count (number/volume) 4.90 10*6/uL 4.35-5.85 Venous blood hemoglobin measurement (mass/volume) 15.6 g/dL 13.3-17.7 Blood hematocrit (volume fraction) 45 % 40-54 Automated erythrocyte mean corpuscular volume 93 [ foz_us] 80-99 Automated erythrocyte mean corpuscular h emoglobin (mass per erythrocyte) 32 pg 25-34 Automated erythrocyte mean corpuscular h emoglobin concentration measurement (mass/volume) 34 g/dL 32-36 Automated erythrocyte distribution width ratio 13. 2 % 10.0- 14.5 Automated blood platelet count (count/volume) 189 10*3/uL 130-400 Automated blood platelet mean volume measurement 11.3 [foz_us] 7.4-10.4 Automated blood neutrophils/100 leukocytes 63 % 42-75 Automated blood lymphocytes/100 leukocytes 21 % 12-44 Blood monocytes/100 leukocytes 11 % 0-12 Automated blood eosinophils/100 leukocytes 4 % 0-10 Automated blood basophils/100 leukocytes 1 % 0-10 Blood neutrophils automated count (number/volume) 5.5 10*3 1.8-7.8 Blood lymphocytes automated count (number/volume) 1.8 10*3 1.0-4.0 Blood monocytes automated count (number/volume) 1. 0 10*3 0.0-1.0 Automated eosinophil count 0.4 10*3/uL 0 .0-0.3 Automated blood basophil count (count/volume) 0.1 10*3/uL 0.0-0.1 Encounters ACCT No. Visit Date/Time Discharge Status Pt. Type Provider Facility Loc./Unit Complaint [id number] 09/05/2019 15:14:00 23:59:59 CLS Outpatient ROSS RODRÍGUEZ MD [facility] LAB CHEST PAIN [id number] 08/08/2019 07:50:00 00:01:00 DIS Outpatient ROSS RODRÍGUEZ MD [facility] CR STENT [id number] 06/08/2019 11:15:00 13:00:00 DIS Outpatient IRINEO GONSALEZ DO [facility] SDC CHEST PAIN [id number] 05/30/2019 12:46:00 11:15:00 DIS Inpatient ANNE LYNCH, ROSS Perales [facility] 4TH CHEST PAIN [id number] 05/20/2019 20:51:00 00:40:00 DIS Emergency AMARILIS LYNCH, JORGE Dewey [facility] ER CHEST PAIN [id number] 05/03/2019 21:50:00 14:20:00 DIS Inpatient TANIYA LYNCH, IVAN Erazo [facility] CSD CHEST PAIN [id number] 04/11/2019 09:34:00 12:36:00 DIS Inpatient BILL LYNCH, SONIA Paniagua [facility] ICU CHEST PAIN,NO STEMI, TY PE 2 DM [id number] 03/29/2019 11:40:00 23:59:59 CLS Outpatient MELODY LYNCH, BERNIE Reed [facility] RAD MULTI NODULAR GOITER [id number] 11/21/2018 17:13:00 20:21:00 DIS Emergency ANGEL PACE [facility] ER L EAR PAIN/SORE THROAT /DIZZY [id number] 10/29/2018 21:00:00 06:31:00 DIS Outpatient AMANDA PRINCE APRN [facility] SLEEP CPAP VENTILATIO N TREATMENT NOT TOLERATED [id number] 07/12/2018 07:56:00 23:59:59 CLS Outpatient AMANDA PRINCE APRN [facility] RAD NOCTURNAL HYPOX EMIA, PNEUMONIA, DYSPNEA [id number] 06/22/2018 13:08:00 23:59:59 CLS Outpatient AMANDA PRINCE APRN [facility] RAD UNSPECIFIED MADELYN TERIAL PNEUMONIA [id number] 06/03/2018 12:16:00 23:59:59 CLS Preadmit SWEET PA, JORGE R [facility] REHAB NECK PAIN [id number] 05/21/2018 16:35:00 018 14:51:00 DIS Inpatient IRINEO GONSALEZ DO, V [facility] 4TH PNEUMONIA [id number] 04/06/2018 20:52:00 018 06:22:00 DIS Outpatient AMANDA PRINCE APRN [facility] SLEEP SLEEP APNEA,NOC TURNAL HYPOXEMIA [id number] 04/02/2018 07:45:00 018 11:42:00 DIS Emergency TANIYA LYNCH, IVAN Erazo [facility] ER HERNIA [id number] 03/30/2018 09:25:00 018 23:59:59 CLS Outpatient BERNIE OLIVER MD [facility] RAD THYROID NODULE [id number] 01/27/2018 21:00:00 018 06:30:00 DIS Outpatient AMANDA PRINCE APRN [facility] SLEEP CPAP VENTILATIO N TREATMENT NOT TOLERATED [id number] 01/20/2018 10:18:00 018 13:25:00 DIS Outpatient MOISÉS LOUIS MD [facility] ENDO HX POLYPS [id number] 01/13/2018 05:39:00 018 23:59:59 CLS Outpatient MOISÉS LOUIS MD [facility] PREOP COLONOSCOPY [id number] 10/08/2017 10:28:00 018 23:59:59 CLS Outpatient BERNIE OLIVER MD [facility] RAD BILATERAL THYROID NODUL ES [id number] 10/06/2017 12:41:00 23:59:59 CLS Outpatient YOLI MALONE [facility] RAD M79.671 [id number] 09/22/2017 08:53:00 10:47:00 DIS Emergency AMARILIS LYNCH, JORGE Dewey [facility] ER PAIN IN LOWER R IGHT BACK AND SIDE [id number] 09/16/2017 21:09:00 018 06:45:00 DIS Outpatient AMANDA PRINCE TONG SETTER [facility] SLEEP G47.30 SLEEP AP WILBERT [id number] 09/15/2017 08:48:00 018 23:59:59 CLS Outpatient SURESHAMANDA TONG SETTER [facility] RAD R91.8,J18.9 [id number] 08/20/2017 15:37:00 018 23:59:59 CLS Outpatient AMANDA PRINCE TONG SETTER [facility] RAD J18.9,R91.8 [id number] 08/19/2017 06:51:00 018 23:59:59 CLS Outpatient BIANCA CARR DO [facility] ENDO LUNG MASS/PNEUMONIA/DYS PNEA [id number] 08/17/2017 14:00:00 018 14:57:00 DIS Outpatient BIANCA CARR DO [facility] PREOP BRONCHOSCOPY [id number] 08/05/2017 15:26:00 018 23:59:59 CLS Outpatient GONSALEZ DO, IRINEO [facility] RT COUGH [id number] 08/05/2017 08:45:00 018 23:59:59 CLS Outpatient GONSALEZ DO, IRINEO [facility] RAD THYROID NODULE E04.1 [id number] 07/28/2017 07:25:00 018 23:59:59 CLS Outpatient GONSALEZ DO, IRINEO [facility] RAD J15.20 STAPHYLOCOCCAL P NEUMONIA [id number] 07/15/2017 15:58:00 018 16:34:00 DIS Inpatient LUCI SPARKS DO [facility] 4TH RLL PNUEMONIA [id number] 02/13/2017 08:07:00 017 11:02:00 DIS Outpatient TALITA ALLEN MD [facility] REHAB R SHOULDER RCT [id number] 06/05/2016 14:37:00 017 23:59:59 CLS Outpatient BRIDGER DOLUCI [facility] RAD PAIN IN RLQ, HX OF KIDNEY STONES [id number] 04/09/2016 11:15:00 016 23:59:59 CLS Outpatient FAZAL DO, CHANDROUTIE [facility] RAD ABD PAIN [id number] 04/03/2016 15:13:00 016 23:59:59 CLS Outpatient FAZAL DO, CHANDROUTIE [facility] LAB ABD PAIN PREP F OR CT [id number] 04/26/2015 07:44:00 015 10:20:00 DIS Outpatient FAZAL DO, CHANDROUTIE [facility] SDC MULTIPLE ULCERS [id number] 04/24/2015 05:36:00 015 23:59:59 CLS Outpatient FAZAL DO, CHANDROUTIE [facility] PREOP MULTIPLE ULCERS [id number] 04/05/2015 05:41:00 015 23:59:59 CLS Outpatient FAZAL DO, CHANDROUTIE [facility] PREOP MULTIPLE ULCERS [id number] 01/27/2015 23:21:00 015 14:50:00 DIS Inpatient FAZAL DO, CHANDROUTIE [facility] SURGICAL SMALL BOWEL OBSTRUCTION [id number] 01/17/2015 07:26:00 015 16:20:00 DIS Inpatient FAZAL DO, CHANDROUTIE [facility] SURGICAL ABDOMINAL PAIN [id number] 01/09/2015 09:44:00 015 23:59:59 CLS Outpatient FAZAL DO, CHANDROUTIE [facility] PREOP ABDOMINAL PAIN [id number] 12/26/2014 10:04:00 015 13:10:00 DIS Outpatient FAZAL DO, CHANDROUTIE [facility] SDC ABDOMINAL DISTE NSION; FAMILY HX COLON CANCER [id number] 12/21/2014 06:35:00 07/30/2 015 23:59:59 CLS Outpatient FAZAL DO ZULAYSARATH [facility] PREOP ABNORMAL DISTOR ATION; FAMILY HX COLON CANCER [id number] 12/04/2014 02:17:00 015 16:00:00 DIS Inpatient FAZAL DO MARTAMARCIAL [facility] SURGICAL SMALL BOWEL OBSTRUCTION [id number] 03/30/2014 08:54:00 014 17:00:00 DIS Outpatient FAZAL STEPHENSON ZULAYSARATH [facility] SDC VENTAL HERNIA [id number] 03/28/2014 11:12:00 014 23:59:59 CLS Outpatient FAZAL STEPHENSON ZULAYSARATH [facility] PREOP VENTRAL HERNIA [id number] 01/09/2014 14:53:00 014 23:59:59 CLS Outpatient NATALYA LYNCH, HILDA Alcaraz [facility] LAB KIDNEY LESIONS,HYPERLIPADEMA,CKD [id number] 12/28/2013 15:17:00 014 23:59:59 CLS Outpatient LUCI SPARKS DO [facility] RAD DROPPED RAMP RT FOOT [id number] 05/28/2013 07:28:00 014 13:19:00 DIS Inpatient LIDIA DIEHL DO [facility] SURGICAL SMALL BOWEL OBSTRUCTION [id number] 05/11/2013 11:18:00 013 23:59:59 CLS Outpatient LUCI SPARKS DO [facility] RAD CELLULITTIS LT WRIST LAST 2 WEEKS [id number] 01/24/2013 09:47:00 013 23:59:59 CLS Outpatient [id number] 10/28/2012 16:01:00 013 23:59:59 CLS Outpatient LUCI SPARKS DO [facility] LAB CHEST PAINS [id number] 09/22/2012 01:30:00 013 13:35:00 DIS Inpatient LUCI SPARKS DO [facility] 4TH INTRACTABLE RUQ ABD PAIN/CVA [id number] 09/19/2019 11:45:00 Document Registration [id number] 03/06/2012 17:36:00 Document Registration [id number] 11/21/2011 11:11:00 Document Registration [id number] 11/13/2011 15:19:00 Document Registration [id number] 07/24/2011 17:11:00 Document Registration [id number] 05/30/2011 20:53:00 Document Registration [id number] 01/15/2011 11:32:00 Document Registration [id number] 12/14/2010 01:00:00 Document Registration [id number] 12/07/2010 14:00:00 Document Registration
[2019-09-19 11:59] LABS: CALCIUM 9.8 MG/DL (8.5-10.1)
[2019-09-19 12:00] LABS: TOTAL PROTEIN 7.4 GM/DL (6.4-8.2)
[2019-09-19 12:02] LABS: BILIRUBIN,TOTAL 0.4 MG/DL (0.1-1.0)
--- NOTE | 2019-09-19 12:02 | ED Chest Pain ---
General Chief Complaint: Chest Pain Stated Complaint: CP Source: patient, old records History of Present Illness Date Seen by Provider: Sep 19, 2019 Time Seen by Provider: 11:29 Initial Comments PT ARRIVES VIA POV FROM HOME--WALKS IN ON HIS OWN WITHOUT DIFFICULTY C/O CHEST PAIN ALL WEEKEND-SINCE AT LEAST Thursday09/17/19 PAIN IS IN CENTER OF CHEST, RADIATES STRAIGHT THROUGH TO HIS BACK--STATES IT FEELS JUST THE SAME WITH HIS PRIOR MS RATES PAIN 5/10 NOW, IS 8/10 AT WORST WORSE WITH ANY EXERTION HAD NSTEMI 03/2019 AND HAS HAD 4 STENTS TOTAL C/O SHORTNESS OF BREATH WITH MINIMAL EXERTION C/O PALPITATIONS--FEELS FLUTTERING IN CHEST OFF AND ON NO SWEATS NO SWELLING IN LEGS/ FEET OR PAIN IN CALVES NO NAUSEA/VOMITING NO DIZZINESS OR SYNCOPE TOOK NTG X 2 AT HOME IN THE LAST HOUR--NO RELIEF. STATES IS OLD RX FROM LAST MARCH TOOK 81 MG ASPIRIN THIS AM CALLED DR. RODRÍUGEZ'S NURSE, WHO TOLD HIM TO COME HERE. PCP: DR. GONSALEZ DIE CASTING SUPERVISOR: DR. RODRÍGUEZ Allergies and Home Medications Allergies Coded Allergies: No Known Drug Allergies (Unverified , 11/21/18) Home Medications Albuterol Sulfate 1 Puff Puff, 2 PUFF IH Q4H PRN for SHORTNESS OF BREATH, (Re ported) 1 PUFF = 90 MCG Allopurinol 300 Mg Tablet, 300 MG PO DAILY, (Reported) Ascorbic Acid 500 Mg Tablet, 500 MG PO BID, (Reported) Aspirin 81 Mg Tablet.dr, 81 MG PO DAILY, (Reported) Baclofen 10 Mg Tablet, 10 MG PO TID PRN for SPASMS, (Reported) Carvedilol 6.25 Mg Tablet, 6.25 MG PO BID, (Reported) Cholecalciferol (Vitamin D3) 5,000 Unit Capsule, 5,000 UNIT PO DAILY, (Reported) Diclofenac Sodium 100 Gm Gel..gram., 2 GM TOP QID PRN for SHOULDER PAIN, (Reported) Fenofibrate,Micronized 134 Mg Capsule, 134 MG PO HS, (Reported) Fluticasone Propion/Salmeterol 1 Each Blst.w.dev, 1 PUFF INH BID PRN for SHORTNESS OF BREATH, (Reported) Furosemide 40 Mg Tablet, 40 MG PO DAILY, (Reported) Gabapentin 300 Mg Capsule, 1,500 MG PO HS, (Reported) TAKES 5 (300MG) CAPSULES Gabapentin 300 Mg Capsule, 300 MG PO DAILY, (Reported) Hydrocodone Bit/Acetaminophen 1 Each Tablet, 1 TAB PO Q6H PRN for PAIN-MODERATE (5-7), (Reported) Insulin Glargine,Hum.rec.anlog 300 Unit/1 Ml Insuln.pen, 160 UNITS SC 1800, (Reported) Insulin Lispro 100 Unit/1 Ml Insuln.pen, 60 UNIT SQ TIDAC, (Reported) Isosorbide Mononitrate 30 Mg Tab.er.24h, 30 MG PO DAILY, (Reported) Lisinopril 20 Mg Tablet, 20 MG PO DAILY, (Reported) Magnesium Oxide 400 Mg Tablet, 400 MG PO BIDPC, (Reported) Montelukast Sodium 10 Mg Tablet, 10 MG PO HS, (Reported) [place]-3 Acid Ethyl Esters 1 Gm Capsule, 2 GM PO BID, (Reported) TAKES 2 (1GM) CAPSULES Pantoprazole Sodium 40 Mg Tablet.dr, 40 MG PO BID Prescribed by: IRINEO GONSALEZ on 06/09/19953 Pediatric Multivit Comb No.136 1 Each Tab.chew, 2 TAB.CHEW PO DAILY, (Reported) Pitavastatin Calcium 4 Mg Tablet, 4 MG PO HS, (Reported) Prasugrel HCl 10 Mg Tablet, 10 MG PO DAILY, (Reported) Promethazine HCl 25 Mg Tablet, 25 MG PO Q6H PRN for NAUSEA/VOMITING-2ND LINE, (Reported) Sucralfate 1 Gm Tablet, 1 GM PO TIDAC Prescribed by: IRINEO GONSALEZ on 06/09/19953 Ubidecarenone 100 Mg Capsule, 100 MG PO DAILY, (Reported) TAKES ALONG WITH 200MG CAPSULE FOR A TOTAL DAILY DOSE OF 300MG Ubidecarenone 200 Mg Capsule, 200 MG PO DAILY, (Reported) TAKEA ALONG WITH 100MG CAPSULE FOR A TOTAL DAILY DOSE OF 300MG Patient Home Medication List Home Medication List Reviewed: Yes Review of Systems Review of Systems Constitutional: no symptoms reported; No chills, No diaphoresis, No dizziness, No fever EENTM: No Symptoms Reported Respiratory: See HPI, Shortness of Air, SOA With Exertion Cardiovascular: See HPI, Chest Pain; Denies Edema; Irregular Heart Rate; Denies Lightheadedness; Palpitations; Denies Syncope Gastrointestinal: No Symptoms Reported; Denies Abdominal Pain, Denies Nausea, Denies Vomiting Genitourinary: No Symptoms Reported Musculoskeletal: see HPI, back pain Skin: no symptoms reported Psychiatric/Neurological: No Symptoms Reported Endocrine: No Symptoms Reported Hematologic/Lymphatic: No Symptoms Reported Past Yxwyvwq-Cbaisd-Hphcxg Hx Past Med/Social Hx: Reviewed and Corrections made Patient Social History Alcohol Use: Rarely Uses (HISTORY OF ABUSE/HEAVY USE) Alcohol Beverage of Choice: Beer Smoking Status: Never a Smoker Type Used: Smokeless Tobacco 2nd Hand Smoke Exposure: No Recent Hopitalizations: Yes Physical Abuse: No Sexual Abuse: No Mistreated: No Fear: No Immunizations Up To Date Tetanus Booster (TDap): Unknown PED Vaccines UTD: No Date of Pneumonia Vaccine: Apr 25, 2019 Date of Influenza Vaccine: Apr 26, 2019 Seasonal Allergies Seasonal Allergies: Yes Past Medical History Surgeries: Yes (SEE BELOW) Abdominal, Adenoidectomy, Appendectomy, Cardiac, Coronary Stent, Gallbladder, Orthopedic, Tonsillectomy Respiratory: Yes Pneumonia, Sleep Apnea, COPD Currently Using CPAP: No Currently Using BIPAP: No Cardiac: Yes (NSTEMI 03/2019; STENTS X 4) Chronic Edema/Swelling, Coronary Artery Disease, Heart Attack, High Cholesterol, Hypertension Neurological: Yes Headaches /Migraines, Neuropathy Reproductive Disorders: No Sexually Transmitted Disease: No HIV/AIDS: No Genitourinary: Yes (CHRONIC RENAL INSUFFICIENCY) Kidney Stones, Renal Failure Gastrointestinal: Yes (SURGERY FOR BOWEL OBSTRUCTIONS/ADHESIONS;CHERYL FUNDOPLICATION;PENELOPE) Gastroesophageal Reflux, Obstructive Bowel, Hiatal Hernia, Gall Bladder Disease Musculoskeletal: Yes (MUJLTIPLE BACK SURGERIES; KNEE SURGERY; RIGHT ARM SURGERY) Degenerate Disk Disease, Arthritis, Fibromyalgia, Back Injury, Chronic Back Pain, Fractures, Gout Endocrine: Yes Diabetes, Insulin dep HEENT: No Tonsilitis Loss of Vision: Bilateral Hearing Impairment: Denies Cancer: No Psychosocial: Yes Anxiety, Depression Integumentary: No Blood Disorders: No Adverse Reaction/Blood Tranf: No Family Medical History Abdominal aortic aneurysm 09 BROTHER Cancer 03 MOTHER Cancer of colon 03 MOTHER 09 SISTER 19 MOTHER FH: COPD (chronic obstructive pulmonary disease) 19 FATHER FH: leukemia 09 SISTER 19 MOTHER FHx: stroke 19 FATHER Family history: Diabetes mellitus 09 BROTHER 09 SISTER 09 SISTER 09 SISTER Family history: Gastrointestinal disease 03 MOTHER 09 BROTHER Cancer, Diabetes, Hypertension, Stroke PSH: -CARDIAC CATHS--STENTS X 4, PER PT -EGD'S -COLONOSCOPIES/POLYPECTOMY -MULTIPLE BACK [id number] FUSION AND PLATES/RODS; NERVE STIMULATOR-REMOVED -LITHOTRIPSY -LEFT KNEE SCOPE/ACL REPAIR -WISDOM TEETH -TONSILLECTOMY -APPENDECTOMY -CHOLECYSTECTOMY -ABDOMINAL LAPAROTOMY FOR BOWEL OBSTRUCTIONS/LYSIS OF ADHESIONS -VENTRAL HERNIA REPAIR -CHERYL FUNDOPLICATION -BILATERAL CARPAL TUNNEL -RIGHT WRIST FX/ORIF Physical Exam Vital Signs Vital Signs - First Documented 09/19/19 11:30 Temp 36.8 Pulse 103 Resp 18 B/P (MAP) 113/73 (86) Pulse Ox 92 O2 Delivery Room Air Capillary Refill : Height, Weight, BMI Height: 5'11.00" Weight: 260lbs. 8.0oz. 117.061237ca; 37.65 BMI Method:Stated General Appearance: No Apparent Distress, Obese HEENT: PERRL/EOMI Neck: Full Range of Motion, Normal Inspection, Non Tender, Supple; No Carotid Bruit, No JVD Respiratory: Chest Non Tender, Normal Breath Sounds, No Accessory Muscle Use, No Respiratory Distress Cardiovascular: Regular Rate, Rhythm, No Edema, No JVD, No Murmur, Normal Peripheral Pulses, Extra Beats (FREQUENT PVC'S) Gastrointestinal: Normal Bowel Sounds, No Organomegaly, No Pulsatile Mass, Non Tender, Soft Extremity: Normal Capillary Refill, Normal Inspection, Normal Range of Motion, Non Tender, No Calf Tenderness, No Pedal Edema Neurologic/Psychiatric: Alert, Oriented x3, No Motor/Sensory Deficits, Normal Mood/Affect, administrative director II-XII Norm as Tested Skin: Normal Color, Warm/Dry Progress/Results/Core Measures Results/Orders Lab Results Laboratory Tests Test 09/19/19 11:36 Range/Units White Blood Count 8.7 4.3-11.0 10^3/uL Red Blood Count 4.90 4.35-5.85 10^6/uL Hemoglobin 15.6 13.3-17.7 G/DL Hematocrit 45 40-54 % Mean Corpuscular Volume 93 80-99 FL Mean Corpuscular Hemoglobin 32 25-34 PG Mean Corpuscular Hemoglobin Concent 34 32-36 G/DL Red Cell Distribution Width 13.2 10.0-14.5 % Platelet Count 189 130-400 10^3/uL Mean Platelet Volume 11.3 H 7.4-10.4 FL Neutrophils (%) (Auto) 63 42-75 % Lymphocytes (%) (Auto) 21 12-44 % Monocytes (%) (Auto) 11 0-12 % Eosinophils (%) (Auto) 4 0-10 % Basophils (%) (Auto) 1 0-10 % Neutrophils # (Auto) 5.5 1.8-7.8 X 10^3 Lymphocytes # (Auto) 1.8 1.0-4.0 X 10^3 Monocytes # (Auto) 1.0 0.0-1.0 X 10^3 Eosinophils # (Auto) 0.4 H 0.0-0.3 10^3/uL Basophils # (Auto) 0.1 0.0-0.1 10^3/uL Prothrombin Time 14.0 12.2-14.7 SEC INR Comment 1.0 0.8-1.4 Activated Partial Thromboplast Time 30 24-35 SEC D-Dimer 0.29 0.00-0.49 UG/ML Sodium Level 140 135-145 MMOL/L Potassium Level 4.4 3.6-5.0 MMOL/L Chloride Level 104 98-107 MMOL/L Carbon Dioxide Level 24 21-32 MMOL/L Anion Gap 12 5-14 MMOL/L Blood Urea Nitrogen 24 H 7-18 MG/DL Creatinine 1.66 H 0.60-1.30 MG/DL Estimat Glomerular Filtration Rate 43 BUN/Creatinine Ratio 14 Glucose Level 319 H 70-105 MG/DL Calcium Level 9.8 8.5-10.1 MG/DL Corrected Calcium 9.8 8.5-10.1 MG/DL Magnesium Level 1.9 1.6-2.4 MG/DL Total Bilirubin 0.4 0.1-1.0 MG/DL Aspartate Amino Transf (AST/SGOT) 48 H 5-34 U/L Alanine Aminotransferase (ALT/SGPT) 54 0-55 U/L Alkaline Phosphatase 87 40-136 U/L Total Creatine Kinase 314 H 30-200 U/L Creatine Kinase MB 7.1 *H <6.6 NG/ML Myoglobin 142.5 H 10.0-92.0 NG/ML Troponin I < 0.028 <0.028 NG/ML B-Type Natriuretic Peptide < 10.0 <100.0 PG/ML Total Protein 7.4 6.4-8.2 GM/DL Albumin 4.0 3.2-4.5 GM/DL Amylase Level 37 25-125 U/L Lipase 56 8-78 U/L My Orders Orders - ANASTASIA GUTIERREZ DO Cbc With Automated Diff (09/19/19 11:36) Magnesium (09/19/19 11:36) Chest 1 View, Ap/Pa Only (09/19/19 11:36) Ekg Tracing (09/19/19 11:36) Comprehensive Metabolic Panel (09/19/19 11:36) Myoglobin Serum (09/19/19 11:36) Protime With Inr (09/19/19 11:36) Partial Thromboplastin Time (09/19/19 11:36) O2 (09/19/19 11:36) Monitor-Rhythm Ecg Trace Only (09/19/19 11:36) Lipid Panel (09/20/19 06:00) Ed Iv/Invasive Line Start (09/19/19 11:36) Creatine Kinase (09/19/19 11:36) Creatine Kinase Mb (09/19/19 11:36) Lipase (09/19/19 11:36) Amylase (09/19/19 11:36) BNP (09/19/19 11:36) Troponin I (09/19/19 11:36) Nitroglycerin 0.4 Mg Btl 25's (Nitrostat (09/19/19 11:45) Aspirin Chewable Tablet (Baby Aspirin Ch (09/19/19 11:45) Fibrin Degradation Products (09/19/19 12:24) Morphine Injection (Morphine Injection (09/19/19 12:30) Metoprolol Tartrate Injection (Lopressor (09/19/19 12:30) Medications Given in ED Current Medications Medications Dose Ordered Sig/Lamin Route Start Time Stop Time Status Last Admin Dose Admin Aspirin 324 mg ONCE ONCE PO 09/19/19 11:45 09/19/19 11:46 DC 09/19/19 11:43 324 MG Enoxaparin Sodium 60 mg ONCE ONCE SC 09/19/19 12:30 09/19/19 12:31 DC 09/19/19 12:39 60 MG Enoxaparin Sodium 80 mg ONCE ONCE SC 09/19/19 12:30 09/19/19 12:31 DC 09/19/19 12:39 80 MG Metoprolol Tartrate 5 mg ONCE ONCE IV 09/19/19 12:30 09/19/19 12:31 DC 09/19/19 12:31 5 MG Morphine Sulfate 4 mg ONCE ONCE IVP 09/19/19 12:30 09/19/19 12:31 DC 09/19/19 12:31 4 MG Nitroglycerin 0.4 mg UD PRN SL 09/19/19 11:45 09/19/19 12:15 0.4 MG Vital Signs/I&O 09/19/19 09/19/19 11:30 11:30 Temp 36.8 Pulse 103 Resp 18 B/P (MAP) 113/73 (86) Pulse Ox 92 O2 Delivery Room Air Progress Progress Note : Progress Note MILD/TRANSIENT RELIEF WITH BOTH NTG AND MORPHINE EACH TIME PT IS ASKED ABOUT PAIN, HE SAYS THE EXACT SAME THING--"IT WAS GETTING BETTER, BUT IT'S COMING BACK-A 6 OR AN 8" GIVEN DOSE LOPRESSOR, HEART RATE DOWN TO 90'S RENAL FUNCTION IS TOO POOR TO DO IV CONTRAST FOR CT CHEST ANGIOGRAM-WILL GIVE LOVENOX PROPHYLAXIS VITALS STABLE Initial ECG Impression Date: Sep 19, 2019 Initial ECG Impression Time: 11:31 Initial ECG Rate: 103 Initial ECG Rhythm: S.Tach Initial ECG Comparisson: Unchanged Diagnostic Imaging Comments CXR--NO ACUTE PROCESS, PER RADIOLOGIST REPORT AT 1201 Reviewed: Reviewed by Me Departure Communication (Admissions) 1223--SPOKE WITH DR. RODRÍGUEZ, DIE CASTING SUPERVISOR, HE ADVISES D-DIMER, LOVENOX, LOPRESSOR 1227--SPOKE WITH DR. LLOYD, HOSPITALIST, ACCEPTS PT FOR ADMIT. Impression Primary Impression: Chest pain Additional Impressions: CAD (coronary artery disease) Diabetes mellitus, insulin dependent (IDDM), uncontrolled Chronic renal insufficiency Disposition: ADMITTED INPATIENT Condition: Stable Admissions Decision to Admit Reason: Admit from ER (General) Decision to Admit/Date: Sep 19, 2019 Time/Decision to Admit Time: 12:30 Departure-Patient Inst. Referrals: IRINEO GONSALEZ DO (PCP/Family) Primary Care Physician ANASTASIA GUTIERREZ DO Sep 19, 2019 12:02
[2019-09-19 12:03] LABS: CREATININE SERUM 1.66 MG/DL (0.60-1.30)
[2019-09-19 12:06] LABS: MAGNESIUM 1.9 MG/DL (1.6-2.4)
[2019-09-19 12:21] LABS: CREATINE KINASE MB 7.1 NG/ML (<6.6)
[2019-09-19] MEDS ORDERED: ENOXAPARIN 60 MG/0.6 ML (LOVENOX) SYR SC ONE (12:30)
[2019-09-19] MEDS ORDERED: morphine INJ 10 MG/ML 1ML (SYR OR VIAL) IVP ONE (12:30)
[2019-09-19] MEDS ORDERED: meTOprolol 5 MG/5 ML (LOPRESSOR) VIAL IV ONE (12:30)
[2019-09-19] MEDS ORDERED: ENOXAPARIN 80 MG/0.8 ML (LOVENOX) SYR SC ONE (12:30)
[2019-09-19] MEDS ORDERED: inSUlin (REGULAR) HUMAN 1 UNIT/0.01 ML (CHARGE PER UNIT) SC ONE (12:45)
--- NOTE | 2019-09-19 13:03 | Consultation-Cardiology ---
HPI-Cardiology Cardiology Consultation Date of Consultation 09/19/19 Date of Admission Time Seen by Provider: 13:02 Indication: chest pain HPI 53-year-old gentleman with extensive coronary artery disease, multiple intervention in the past 6 months, history of multiple back surgery and gastritis. Started to have chest pain about 2 days ago waxing and waning, yesterday became worse and today came into the emergency room for evaluation, nitroglycerin did not relieve the pain at home and did not help much during this emergency room visit. Reported some improvement after receiving morphine. No palpitation. No syncope or near syncopal episodes Home Medications & Allergies Allergies: Coded Allergies: No Known Drug Allergies (Unverified , 11/21/18) Home Medication List Reviewed: Yes UBG-Bidjwe-Ilzkeo Hx Patient Social History Marital Status: Employed/Student: employed Alcohol Use: Occasionally Uses Recreational Drug Use: No Smoking Status: Never a Smoker Type Used: Smokeless Tobacco 2nd Hand Smoke Exposure: No Recent Foreign Travel: No Recent Infectious Disease Expo: No Recent Hopitalizations: Yes Immunizations Up To Date Tetanus Booster (TDap): Unknown Date of Pneumonia Vaccine: Apr 25, 2019 Date of Influenza Vaccine: Apr 26, 2019 Past Medical History Discussed below Family Medical History Significant Family History: Cancer, Diabetes, Hypertension, Stroke Family History: Abdominal aortic aneurysm 09 BROTHER Cancer 03 MOTHER Cancer of colon 03 MOTHER 09 SISTER 19 MOTHER FH: COPD (chronic obstructive pulmonary disease) 19 FATHER FH: leukemia 09 SISTER 19 MOTHER FHx: stroke 19 FATHER Family history: Diabetes mellitus 09 BROTHER 09 SISTER 09 SISTER 09 SISTER Family history: Gastrointestinal disease 03 MOTHER 09 BROTHER Review of Systems-General Review of Systems Constitutional: no symptoms reported, see HPI; No chills, No diaphoresis, No dizziness, No fever EENTM: see HPI, no symptoms reported Respiratory: see HPI; No cough; dyspnea on exertion; No hemoptysis, No orthopnea, No phlegm, No short of breath, No stridor, No wheezing, No other Cardiovascular: see HPI, chest pain; No edema, No Hx of Intervention, No palpitations, No syncope, No vascular heart diseas, No other Gastrointestinal: no symptoms reported, see HPI Genitourinary: no symptoms reported, see HPI Musculoskeletal: see HPI, back pain Skin: no symptoms reported, see HPI Psychiatric/Neurological: No Symptoms Reported, See HPI Reviewed Test Results Reviewed Test Results Lab Laboratory Tests Test 4/27/20 11:36 Range/Units White Blood Count 8.7 4.3-11.0 10^3/uL Red Blood Count 4.90 4.35-5.85 10^6/uL Hemoglobin 15.6 13.3-17.7 G/DL Hematocrit 45 40-54 % Mean Corpuscular Volume 93 80-99 FL Mean Corpuscular Hemoglobin 32 25-34 PG Mean Corpuscular Hemoglobin Concent 34 32-36 G/DL Red Cell Distribution Width 13.2 10.0-14.5 % Platelet Count 189 130-400 10^3/uL Mean Platelet Volume 11.3 H 7.4-10.4 FL Neutrophils (%) (Auto) 63 42-75 % Lymphocytes (%) (Auto) 21 12-44 % Monocytes (%) (Auto) 11 0-12 % Eosinophils (%) (Auto) 4 0-10 % Basophils (%) (Auto) 1 0-10 % Neutrophils # (Auto) 5.5 1.8-7.8 X 10^3 Lymphocytes # (Auto) 1.8 1.0-4.0 X 10^3 Monocytes # (Auto) 1.0 0.0-1.0 X 10^3 Eosinophils # (Auto) 0.4 H 0.0-0.3 10^3/uL Basophils # (Auto) 0.1 0.0-0.1 10^3/uL Prothrombin Time 14.0 12.2-14.7 SEC INR Comment 1.0 0.8-1.4 Activated Partial Thromboplast Time 30 24-35 SEC D-Dimer 0.29 0.00-0.49 UG/ML Sodium Level 140 135-145 MMOL/L Potassium Level 4.4 3.6-5.0 MMOL/L Chloride Level 104 98-107 MMOL/L Carbon Dioxide Level 24 21-32 MMOL/L Anion Gap 12 5-14 MMOL/L Blood Urea Nitrogen 24 H 7-18 MG/DL Creatinine 1.66 H 0.60-1.30 MG/DL Estimat Glomerular Filtration Rate 43 BUN/Creatinine Ratio 14 Glucose Level 319 H 70-105 MG/DL Calcium Level 9.8 8.5-10.1 MG/DL Corrected Calcium 9.8 8.5-10.1 MG/DL Magnesium Level 1.9 1.6-2.4 MG/DL Total Bilirubin 0.4 0.1-1.0 MG/DL Aspartate Amino Transf (AST/SGOT) 48 H 5-34 U/L Alanine Aminotransferase (ALT/SGPT) 54 0-55 U/L Alkaline Phosphatase 87 40-136 U/L Total Creatine Kinase 314 H 30-200 U/L Creatine Kinase MB 7.1 *H <6.6 NG/ML Myoglobin 142.5 H 10.0-92.0 NG/ML Troponin I < 0.028 <0.028 NG/ML B-Type Natriuretic Peptide < 10.0 <100.0 PG/ML Total Protein 7.4 6.4-8.2 GM/DL Albumin 4.0 3.2-4.5 GM/DL Amylase Level 37 25-125 U/L Lipase 56 8-78 U/L Physical Exam Physical Exam Vital Signs Vital Signs - First Documented 09/19/19 11:30 Temp 36.8 Pulse 103 Resp 18 B/P (MAP) 113/73 (86) Pulse Ox 92 O2 Delivery Room Air Capillary Refill : Less Than 3 Seconds Height, Weight, BMI Height: 5'11.00" Weight: 260lbs. 8.0oz. 117.749679cj; 37.00 BMI Method:Stated General Appearance: No Apparent Distress, WD/WN Eyes: Bilateral Eye Normal Inspection, Bilateral Eye PERRL, Bilateral Eye EOMI HEENT: PERRL/EOMI, TMs Normal, Normal ENT Inspection, Pharynx Normal, Moist Mucous Membranes Neck: Full Range of Motion, Normal Inspection, Non Tender, Supple, Carotid Bruit Respiratory: Chest Non Tender, Normal Breath Sounds, No Accessory Muscle Use, No Respiratory Distress Cardiovascular: Regular Rate, Rhythm, No Edema, No Gallop, No JVD, No Murmur, Normal Peripheral Pulses Gastrointestinal: Normal Bowel Sounds, No Organomegaly, No Pulsatile Mass, Non Tender, Soft Back: Normal Inspection, No CVA Tenderness, No Vertebral Tenderness Extremity: Normal Capillary Refill, Normal Inspection, Normal Range of Motion, Non Tender, No Calf Tenderness, No Pedal Edema Neurologic/Psychiatric: Alert, Oriented x3, No Motor/Sensory Deficits, Normal Mood/Affect Skin: Normal Color, Warm/Dry Lymphatic: No Adenopathy A/P-Cardiology Admission Diagnosis Chest pain Coronary artery disease Hypertension Hyperlipidemia Assessment/Plan Chest pain resembling angina, EKG did not show any acute changes, continue to have chest pain until he received some morphine, reporting improvement in his chest pain. Coronary artery disease, non-ST elevation cardiac infarction occurred recently, had severe stenosis at the right coronary artery with successful deployment of Maday 4 x 23 mm stent expanded to 4.5 mm with excellent results. The distal right PDA is occluded, small vessel disease, circumflex has severe diffuse disease, underwent stenting on May 03, 2019 in [facility], I do not have the report in addition he had [id number] ectasia in the LAD, mild to moderate diffuse disease, went to [facility] late in April 2019 and had another stent to the LAD, had another cardiac catheterization [facility] in May 2019 with stenting to a small diagonal branch, has been doing well until recently started to have chest pain again. Continue to monitor, he has positive troponin I will consider cardiac catheterization Hypertension, restart home medication monitor blood pressure Hyperlipidemia, restarted home medication, monitor lipids Chronic renal insufficiency, elevated Creatinine, continue to monitor renal function Diabetes mellitus, followed and managed by primary care physician COPD/obstructive sleep apnea Obesity, BMI 37 Multiple back surgeries, recent knee surgery Clinical Quality Measures AMI/AHF: ASA po Prior to arrival: Yes (asa 81 mg x1) ROSS RODRÍGUEZ MD Sep 19, 2019 13:03
--- OUTSIDE RECORDS SUMMARY | 2019-09-19 13:29 | XMS REPORT | Clinical Summary ---
Author Author [facility] Organization [facility] Address Unknown Phone Unavailable Care Team Providers Care Travel Ticketing Reviewer Name Role Phone PCP Unavailable Source Comments Some departments are not documenting in the electronic medical record. If you d o not see the information that you expected, contact Release of Information in [facility] [employer] Information Management department at [phone] for further assistan ce in locating additional records.[facility] Allergies Not on File Medications Not [...]
--- OUTSIDE RECORDS SUMMARY | 2019-09-19 13:31 | XMS REPORT | Continuity of Care Document ---
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 01/18/2015 LIDIA DIEHL DO Ot 585.2 CHRONIC [...] R10.32 LEFT LOWER QUADRANT PAIN 06/06/2016 LUCI SPAKRS DO Ot K57.90 DVRTCLOS OF INTEST, PART [...] 07/20/2017 TASHALENDER DO, LUCI Graff Ot Z79.4 SENIOR LIVING (CURRENT) USE OF INSULIN 07/20/2017 TASHALENDER DO, LUCI Graff Ot 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.52 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) USE OF SYSTEMIC STER 07/20/2017 TASHALENDER DO, LUCI Graff Ot Z86.010 PERSONAL HISTORY OF COLONIC POLYPS 07/20/2017 BRIDGER STEPHENSON, LUCI Graff Ot Z87.442 PERSONAL HISTORY OF URINARY CALCULI 07/29/2017 GONSALEZ , IRINEO Ot E04.1 NONTOXIC SINGLE THYROID NODULE 07/29/2017 WALLACE STEPHENSON, IRINEO Ot I25.10 ATHSCL HEART DISEASE OF [place] CORONARY 07/29/2017 GONSALEZ , IRINEO Ot J15.20 PNEUMONIA DUE TO STAPHYLOCOCCUS, UNSPECI 07/29/2017 WALLACE STEPHENSON, IRINEO Ot K76.0 FATTY (CHANGE OF) LIVER, NOT ELSEWHERE C 08/05/2017 BRIDGER STEPHENSONLUCI Ot 786.50 CHEST PAIN NOS 08/05/2017 BRIDGER STEPHENSON, LUCI Graff Ot 959.3 ELB/FOREARM/WRST INJ [...] DO Ot I25.10 ATHSCL HEART DISEASE OF [place] CORONARY 08/05/2017 IRINEO GONSALEZ DO Ot J15.20 [...] DO Ot I25.10 ATHSCL HEART DISEASE OF [place] CORONARY 08/18/2017 IRINEO GONSALEZ DO Ot J15.20 [...] Z79.899 OTHER SENIOR LIVING (CURRENT) DRUG THERAPY 08/21/2017 IRINEO GONSALEZ DO Ot E04.1 NONTOXIC SINGLE THYROID NODULE 08/21/2017 IRINEO GONSALEZ DO Ot I25.10 ATHSCL HEART DISEASE OF [place] CORONARY 08/21/2017 IRINEO GONSALEZ DO Ot J15.20 [...] 08/21/2017 BIANCA CARR DO Ot Z79.899 OTHER 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) DRUG THERAPY 08/25/2017 GONSALEZ DO, IRINEO [...] 09/11/2017 BIANCA CARR DO Ot Z79.899 OTHER 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) DRUG THERAPY 09/11/2017 YADIRA PRINCEINE Shoaib COTTON PROGRAM TECHNICIAN Ot G25.81 RESTLESS LEGS SYNDROME 09/11/2017 YADIRA PRINCEINE E COTTON PROGRAM TECHNICIAN Ot J18.9 PNEUMONIA, UNSPECIFIED ORGANISM 09/11/2017 YADIRA PRINCEINE E COTTON PROGRAM TECHNICIAN Ot J98.11 ATELECTASIS 09/11/2017 AMANDA PRINCE E COTTON PROGRAM TECHNICIAN Ot K21.9 GASTRO-ESOPHAGEAL REFLUX DISEASE WITHOUT 09/11/2017 YADIRA PRINCEINE E COTTON PROGRAM TECHNICIAN Ot R91.8 OTHER NONSPECIFIC ABNORMAL FINDING OF [place] 09/15/2017 AMANDA PRINCE COTTON PROGRAM TECHNICIAN Ot G25.81 RESTLESS LEGS SYNDROME 09/15/2017 AMANDA PRINCE E COTTON PROGRAM TECHNICIAN Ot J18.9 PNEUMONIA, UNSPECIFIED ORGANISM 09/15/2017 YADIRA PRINCEINE E COTTON PROGRAM TECHNICIAN Ot J98.11 ATELECTASIS 09/15/2017 YADIRA PRINCEINE E COTTON PROGRAM TECHNICIAN Ot K21.9 GASTRO-ESOPHAGEAL REFLUX DISEASE WITHOUT 09/15/2017 YADIRA PRINCEINE E COTTON PROGRAM TECHNICIAN Ot R91.8 OTHER NONSPECIFIC ABNORMAL FINDING OF [place] 09/17/2017 YADIRA PRINCEINE E COTTON PROGRAM TECHNICIAN Ot G25.81 RESTLESS LEGS SYNDROME 09/17/2017 YADIRA PRINCEINE E COTTON PROGRAM TECHNICIAN Ot G47.30 SLEEP APNEA, UNSPECIFIED 09/17/2017 SURESH AMANDA E COTTON PROGRAM TECHNICIAN Ot G25.81 RESTLESS LEGS SYNDROME 09/17/2017 YADIRA PRINCEINE E COTTON PROGRAM TECHNICIAN Ot G47.30 SLEEP APNEA, UNSPECIFIED 09/22/2017 AMARILIS [...] PAIN 09/22/2017 JORGE OLMOS MD, Ot Z79.4 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) USE OF 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 09/22/2017 JORGE OLMOS [...] PAIN 09/24/2017 JORGE OLMOS MD Ot Z79.4 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) USE OF INSULIN 09/24/2017 JORGE OLMOS [...] MOISÉS LOUIS MD Ot Z79.89 9 OTHER SENIOR LIVING (CURRENT) DRUG THERAPY 01/20/2018 MOISÉS LOUIS MD [...] MOISÉS LOUIS MD Ot Z79.89 9 OTHER 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) DRUG THERAPY 01/22/2018 MOISÉS LOUIS MD Ot Z80.0 FAMILY HISTORY OF MALIGNANT NEOPLASM OF 01/22/2018 MOISÉS LOUIS MD Ot Z80.3 FAMILY HISTORY OF MALIGNANT NEOPLASM OF 01/22/2018 MOISÉS LOUIS MD Ot Z98.1 ARTHRODESIS STATUS 01/22/2018 SURESH, AMANDA E COTTON PROGRAM TECHNICIAN Ot G47.30 SLEEP APNEA, UNSPECIFIED 01/28/2018 SURESH, AMANDA E COTTON PROGRAM TECHNICIAN Ot G47.30 SLEEP APNEA, UNSPECIFIED 01/28/2018 SURESH, AMANDA E COTTON PROGRAM TECHNICIAN Ot G47.33 OBSTRUCTIVE SLEEP APNEA (ADULT) (PEDIATR 01/28/2018 SURESH, AMANDA E COTTON PROGRAM TECHNICIAN Ot Z78.9 OTHER SPECIFIED HEALTH STATUS 01/28/2018 SURESH, AMANDA E COTTON PROGRAM TECHNICIAN Ot G47.33 OBSTRUCTIVE SLEEP APNEA (ADULT) (PEDIATR 01/28/2018 SURESH, AMANDA E COTTON PROGRAM TECHNICIAN Ot Z78.9 OTHER SPECIFIED HEALTH STATUS 02/01/2018 [...] MOISÉS [place] MD, Ot Z79.89 9 OTHER 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) DRUG THERAPY 02/01/2018 MOISÉS LOUIS MD, [...] DO Ot I25.10 ATHSCL HEART DISEASE OF [place] CORONARY 03/30/2018 IRINEO GONSALEZ DO Ot J15.20 [...] 03/30/2018 BIANCA CARR DO Ot Z79.899 OTHER SENIOR [...] 04/02/2018 IVAN MONAHAN MD, Ot Z79 .4 SENIOR LIVING (CURRENT) USE OF INSULIN 04/02/2018 IVAN MONAHAN MD Ot Z79.51 SENIOR LIVING [...] 04/05/2018 IVAN MONAHAN MD Ot Z79 .4 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) USE OF INSULIN 04/05/2018 IVAN MONAHAN MD, Ot Z79.51 SENIOR LIVING [...] Ot E03.9 HYPOTHYROIDISM, UNSPECIFIED 05/23/2018 WALLACE STEPHENSON IRINOE Ot E11.9 TYPE 2 DIABETES MELLITUS WITHOUT [...] HYPOXEMIA 05/23/2018 GONSALEZ DO, IRINEO Ot Z79.4 SENIOR LIVING (CURRENT) USE OF INSULIN 07/12/2018 AMANDA PRINCE APRN Ot G47.34 IDIO SLEEP RELATED NONOBSTRUCTIVE ALVEOL 07/12/2018 AMANDA PRINCE APRN Ot K76.0 FATTY (CHANGE OF) LIVER, NOT ELSEWHERE C 07/12/2018 AMANDA PRINCE COTTON PROGRAM TECHNICIAN Ot R06.00 DYSPNEA, UNSPECIFIED 07/14/2018 AMANDA PRINCE COTTON PROGRAM TECHNICIAN Ot J15.9 UNSPECIFIED BACTERIAL PNEUMONIA 07/20/2018 AMANDA PRINCE E COTTON PROGRAM TECHNICIAN Ot J15.9 UNSPECIFIED BACTERIAL PNEUMONIA 08/04/2018 AMANDA PRINCE COTTON PROGRAM TECHNICIAN Ot G47.34 IDIO SLEEP RELATED NONOBSTRUCTIVE ALVEOL 08/04/2018 AMANDA PRINCE E COTTON PROGRAM TECHNICIAN Ot K76.0 FATTY (CHANGE OF) LIVER, NOT ELSEWHERE C 08/04/2018 AMANDA PRINCE E COTTON PROGRAM TECHNICIAN Ot R06.00 DYSPNEA, UNSPECIFIED 08/06/2018 AMANDA PRINCE E COTTON PROGRAM TECHNICIAN Ot G47.34 IDIO SLEEP RELATED NONOBSTRUCTIVE ALVEOL 08/06/2018 AMANDA PRINCE COTTON PROGRAM TECHNICIAN Ot K76.0 FATTY (CHANGE OF) LIVER, NOT ELSEWHERE C 08/06/2018 AMANDA PRINCE COTTON PROGRAM TECHNICIAN Ot R06.00 DYSPNEA, UNSPECIFIED 10/26/2018 AMANDA PRINCE COTTON PROGRAM TECHNICIAN Ot G47.33 OBSTRUCTIVE SLEEP APNEA (ADULT) (PEDIATR 10/29/2018 YADIRA PRINCEINE E COTTON PROGRAM TECHNICIAN Ot G47.33 OBSTRUCTIVE SLEEP APNEA (ADULT) (PEDIATR 10/30/2018 SURESHYADIRA LORENZOINE E COTTON PROGRAM TECHNICIAN Ot G47.33 OBSTRUCTIVE SLEEP APNEA (ADULT) (PEDIATR 10/30/2018 YADIRA PRINCEINE E COTTON PROGRAM TECHNICIAN Ot R06.00 DYSPNEA, UNSPECIFIED 10/30/2018 YADIRA PRINCEINE E COTTON PROGRAM TECHNICIAN Ot Z78.9 OTHER SPECIFIED HEALTH STATUS 11/02/2018 AMANDA PRINCE COTTON PROGRAM TECHNICIAN Ot G47.33 OBSTRUCTIVE SLEEP APNEA (ADULT) (PEDIATR 11/02/2018 AMANDA PRINCE E COTTON PROGRAM TECHNICIAN Ot R06.00 DYSPNEA, UNSPECIFIED 11/02/2018 YADIRA PRINCEINE E COTTON PROGRAM TECHNICIAN Ot Z78.9 OTHER SPECIFIED HEALTH STATUS 11/21/2018 [...] M79.7 FIBROMYALGIA 11/21/2018 ANGEL PACE Ot Z79.4 SENIOR LIVING (CURRENT) USE OF INSULIN 11/21/2018 ANGEL PACE Ot Z80.0 FAMILY HISTORY OF MALIGNANT NEOPLASM OF 11/21/2018 ANGEL PACE Ot Z80.6 FAMILY HISTORY OF LEUKEMIA 11/21/2018 ANGEL PACE Ot Z86.011 PERSONAL HISTORY OF BENIGN NEOPLASM OF T 11/21/2018 ANEGL PACE Ot Z87.01 PERSONAL HISTORY OF PNEUMONIA [...] M79.7 FIBROMYALGIA 11/23/2018 ANGEL PACE Ot Z79.4 SENIOR LIVING (CURRENT) USE OF INSULIN 11/23/2018 ANGEL PACE [...] 2 DIABETES MELLITUS WITHOUT COMPLIC 11/28/2018 ANGEL PACE Ot E78.00 PURE HYPERCHOLESTEROLEMIA, UNSPECIFIED 11/28/2018 ANGEL [...] M79.7 FIBROMYALGIA 11/28/2018 ANGEL PACE Ot 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 9 ANXIETY DISORDER, UNSPECIFIED 04/13/2019 SONIA KAHN MD, Ot G43.909 MIGRAINE, UNSP, NOT INTRACTABLE, WITHOUT 04/13/2019 SONIA KHAN MD Ot G47. 33 OBSTRUCTIVE SLEEP APNEA (ADULT) (PEDIATR 04/13/2019 BILL LYNCH, SONIA [place] Ot G89. 29 OTHER CHRONIC PAIN 04/13/2019 SONIA KHAN MD Ot I10 ESSENTIAL (PRIMARY) HYPERTENSION 04/13/2019 SONIA KHAN MD Ot I21. 4 NON-ST ELEVATION (NSTEMI) MYOCARDIAL INF 04/13/2019 SONIA KHAN MD Ot I25. 10 ATHSCL HEART DISEASE OF [place] CORONARY 04/13/2019 SONIA KHAN MD Ot I95. [...] 04/13/2019 SONIA KHAN MD Ot Z79. 4 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) USE OF INSULIN 04/13/2019 SONIA KHAN MD Ot Z86.010 PERSONAL HISTORY OF COLONIC POLYPS 04/13/2019 SONIA KAHN MD Ot Z87. 01 PERSONAL HISTORY OF [...] MD Ot I25.119 ATHSCL HEART DISEASE OF [place] COR ART W 05/04/2019 IVAN MONAHAN MD, Ot J44 .9 CHRONIC OBSTRUCTIVE PULMONARY DISEASE, U 05/04/2019 IVAN MONAHAN MD, Ot M06 .9 RHEUMATOID ARTHRITIS, UNSPECIFIED 05/04/2019 IVAN MONAHAN MD, Ot M54 .9 DORSALGIA, UNSPECIFIED 05/04/2019 IVAN MONAHAN MD Ot Z79 .4 SENIOR LIVING (CURRENT) USE OF INSULIN 05/04/2019 IVAN MONAHAN MD Ot Z79.82 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) USE OF ASPIRIN 05/04/2019 IVAN MONAHAN MD, Ot Z79.84 SENIOR LIVING (CURRENT) USE OF ORAL HYPOGLYC 05/04/2019 IVAN MONAHAN MD Ot Z79.891 SENIOR LIVING (CURRENT) USE OF OPIATE ANALGE 05/04/2019 IVAN MONAHAN MD, Ot Z79.899 OTHER 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) DRUG THERAPY 05/04/2019 IVAN MONAHAN MD [...] MD Ot I25.119 ATHSCL HEART DISEASE OF [place] COR ART W 05/04/2019 IVAN MONAHAN MD, Ot J44 .9 CHRONIC OBSTRUCTIVE PULMONARY DISEASE, U 05/04/2019 IVAN MONAHAN MD Ot M06 .9 RHEUMATOID ARTHRITIS, UNSPECIFIED 05/04/2019 IVAN MONAHAN MD Ot M54 .9 DORSALGIA, UNSPECIFIED 05/04/2019 IVAN MONAHAN MD Ot Z79 .4 SENIOR LIVING (CURRENT) USE OF INSULIN 05/04/2019 IVAN MONAHAN MD Ot Z79.82 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) USE OF ASPIRIN 05/04/2019 IVAN MONAHAN MD Ot Z79.84 SENIOR LIVING (CURRENT) USE OF ORAL HYPOGLYC 05/04/2019 IVAN MONAHAN MD Ot Z79.891 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) USE OF OPIATE ANALGE 05/04/2019 IVAN MONAHAN MD, Ot Z79.899 OTHER 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) DRUG THERAPY 05/04/2019 IVAN MONAHAN MD [...] MD, Ot I25.10 ATHSCL HEART DISEASE OF [place] CORONARY 05/21/2019 JORGE OLMOS MD, Ot I25.2 OLD MYOCARDIAL INFARCTION 05/21/2019 JORGE OLMOS MD, Ot J44.9 CHRONIC OBSTRUCTIVE PULMONARY DISEASE, U 05/21/2019 JORGE OLMOS MD, Ot M06.9 RHEUMATOID ARTHRITIS, UNSPECIFIED 05/21/2019 JORGE OLMOS MD, Ot M10.9 GOUT, UNSPECIFIED 05/21/2019 JORGE OLMOS MD Ot M79.7 FIBROMYALGIA 05/21/2019 JORGE OLMOS MD Ot R07.9 CHEST PAIN, UNSPECIFIED 05/21/2019 JORGE OLMOS MD, Ot Z79.4 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) USE OF INSULIN 05/21/2019 JORGE OLMOS MD Ot Z79.51 SENIOR LIVING (CURRENT) USE OF INHALED STERO 05/21/2019 JORGE OLMOS MD, Ot Z79.82 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) USE OF ASPIRIN 05/21/2019 JORGE OLMOS [...] MD, Ot I25.10 ATHSCL HEART DISEASE OF [place] CORONARY 05/24/2019 JOREG OLMOS MD, Ot I25.2 OLD MYOCARDIAL INFARCTION 05/24/2019 JORGE OLMOS MD, Ot J44.9 CHRONIC OBSTRUCTIVE PULMONARY DISEASE, U 05/24/2019 JORGE OLMOS MD, Ot M06.9 RHEUMATOID ARTHRITIS, UNSPECIFIED 05/24/2019 JORGE OLMOS MD, Ot M10.9 GOUT, UNSPECIFIED 05/24/2019 JORGE OLMOS MD, Ot M79.7 FIBROMYALGIA 05/24/2019 JORGE OLMOS MD, Ot R07.9 CHEST PAIN, UNSPECIFIED 05/24/2019 JORGE OLMOS MD, Ot Z79.4 SENIOR LIVING (CURRENT) USE OF INSULIN 05/24/2019 JORGE OLMOS MD Ot Z79.51 SENIOR LIVING (CURRENT) USE OF INHALED STERO 05/24/2019 JORGE OLMOS MD, Ot Z79.82 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) USE OF ASPIRIN 05/24/2019 JORGE OLMOS [...] MD, Ot I25.10 ATHSCL HEART DISEASE OF [place] CORONARY 05/26/2019 JORGE OLMOS MD, Ot I25.2 OLD MYOCARDIAL INFARCTION 05/26/2019 JORGE OLMOS MD, Ot J44.9 CHRONIC OBSTRUCTIVE PULMONARY DISEASE, U 05/26/2019 JORGE OLMOS MD, Ot M06.9 RHEUMATOID ARTHRITIS, UNSPECIFIED 05/26/2019 JORGE OLMOS MD, Ot M10.9 GOUT, UNSPECIFIED 05/26/2019 JORGE OLMOS MD, Ot M79.7 FIBROMYALGIA 05/26/2019 JORGE OLMOS MD, Ot R07.9 CHEST PAIN, UNSPECIFIED 05/26/2019 JORGE OLMOS MD, Ot Z79.4 SENIOR LIVING (CURRENT) USE OF INSULIN 05/26/2019 JORGE OLMOS MD, Ot Z79.51 SENIOR LIVING (CURRENT) USE OF INHALED STERO 05/26/2019 JORGE OLMOS MD, Ot Z79.82 SENIOR LIVING (CURRENT) USE OF ASPIRIN 05/26/2019 JORGE OLMOS [...] MD, Ot E78.00 PURE HYPERCHOLESTEROLEMIA, UNSPECIFIED 05/27/2019 JROGE OLMOS MD, Ot F32.9 MAJOR DEPRESSIVE DISORDER, SINGLE EPISOD 05/27/2019 JORGE OLMOS MD, Ot F41.9 ANXIETY DISORDER, UNSPECIFIED 05/27/2019 JORGE OLMOS MD, Ot G43.909 MIGRAINE, UNSP, NOT INTRACTABLE, WITHOUT 05/27/2019 JORGE OLMOS MD, Ot I10 ESSENTIAL (PRIMARY) HYPERTENSION 05/27/2019 JORGE OLMOS MD, Ot I25.10 ATHSCL HEART DISEASE OF [place] CORONARY 05/27/2019 JORGE OLMOS MD, Ot I25.2 OLD MYOCARDIAL INFARCTION 05/27/2019 JORGE OLMOS MD, Ot J44.9 CHRONIC OBSTRUCTIVE PULMONARY DISEASE, U 05/27/2019 JORGE OLMOS MD, Ot M06.9 RHEUMATOID ARTHRITIS, UNSPECIFIED 05/27/2019 JORGE OLMOS MD, Ot M10.9 GOUT, UNSPECIFIED 05/27/2019 JORGE OLMOS MD, Ot M79.7 FIBROMYALGIA 05/27/2019 JORGE OLMOS MD, Ot R07.9 CHEST PAIN, UNSPECIFIED 05/27/2019 JORGE OLMOS MD, Ot Z79.4 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 10 ATHSCL HEART DISEASE OF [place] CORONARY 05/31/2019 ANNE MD, BASHAR J Ot [...] 05/31/2019 ROSS RODRÍGUEZ MD, Ot Z79. 4 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) USE OF INSULIN 05/31/2019 ROSS RODRÍGUEZ MD, Ot Z79. 82 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) USE OF ASPIRIN 05/31/2019 ROSS RODRÍGUEZ MD, Ot Z79.891 SENIOR LIVING (CURRENT) USE OF OPIATE ANALGE 05/31/2019 ROSS [...] Ot I25. 10 ATHSCL HEART DISEASE OF [place] CORONARY 05/31/2019 ROSS RODRÍGUEZ MD, Ot J44. 9 CHRONIC OBSTRUCTIVE PULMONARY DISEASE, U 05/31/2019 ROSS RODRÍGUEZ MD, Ot M06. 9 RHEUMATOID ARTHRITIS, UNSPECIFIED 05/31/2019 ROSS RODRÍGUEZ MD, Ot M10. 9 GOUT, UNSPECIFIED 05/31/2019 ROSS RODRÍGUEZ MD, Ot M54. 9 DORSALGIA, UNSPECIFIED 05/31/2019 ROSS RODRÍGUEZ MD, Ot M79. 7 FIBROMYALGIA 05/31/2019 ROSS RODRÍGUEZ MD, Ot Z68. 37 BODY MASS INDEX (BMI) 37.0-37.9, ADULT 05/31/2019 ROSS RODRÍGUEZ MD, Ot Z79. 4 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) USE OF INSULIN 05/31/2019 ROSS RODRÍGUEZ MD, Ot Z79. 82 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) USE OF ASPIRIN 05/31/2019 ROSS RODRÍGUEZ MD, Ot Z79.891 SENIOR LIVING (CURRENT) USE OF OPIATE ANALGE 05/31/2019 ROSS [...] E11.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 W 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 06/09/2019 WALLACE STEPHENSON IRINEO Ot E11.40 TYPE [...] IRINEO Ot I25.10 ATHSCL HEART DISEASE OF [place] CORONARY 06/09/2019 GONSALEZ DO, IRINEO Ot I25.2 OLD MYOCARDIAL INFARCTION 06/09/2019 GONSALEZ DO, IRINEO Ot K21.0 GASTRO-ESOPHAGEAL REFLUX [...] ADULT 06/09/2019 GONSALEZ DO, IRINEO Ot Z79.4 SENIOR LIVING (CURRENT) USE OF INSULIN 06/09/2019 GONSALEZ DO, IRINEO Ot Z79.82 SENIOR LIVING (CURRENT) USE OF ASPIRIN 06/09/2019 GONSALEZ DO, IRINEO Ot Z79.89 9 OTHER 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) DRUG THERAPY 06/09/2019 GONSALEZ DO, IRINEO [...] E11.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 06/29/2019 GONSALEZ DO, IRINEO Ot E11.40 TYPE [...] IRINEO Ot I25.10 ATHSCL HEART DISEASE OF [place] CORONARY 06/29/2019 GONSALZE DO, IRINEO Ot I25.2 OLD MYOCARDIAL INFARCTION 06/29/2019 GONSALEZ DO, IRINEO Ot K21.0 GASTRO-ESOPHAGEAL REFLUX DISEASE WITH ES 06/29/2019 GONSALEZ DO, IRINEO Ot K29.70 GASTRITIS, UNSPECIFIED, WITHOUT BLEEDING 06/29/2019 GONSALEZ DO, IRINEO Ot M19.90 UNSPECIFIED OSTEOARTHRITIS, UNSPECIFIED 06/29/2019 GONSALEZ DO, IRINEO Ot M54.9 DORSALGIA, UNSPECIFIED 06/29/2019 GONSALEZ DO, IRINEO Ot N18.9 CHRONIC KIDNEY DISEASE, UNSPECIFIED 06/29/2019 GONSALEZ DO, IRINEO Ot Z68.37 BODY MASS INDEX (BMI) 37.0-37.9, ADULT 06/29/2019 GONSALEZ DO, IRINEO Ot Z79.4 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) USE OF INSULIN 06/29/2019 GONSALEZ DO, IRINEO Ot Z79.82 SENIOR LIVING (CURRENT) USE OF ASPIRIN 06/29/2019 WALLACE DO, IRINEO Ot Z79.89 9 OTHER 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) DRUG THERAPY 06/29/2019 GONSALEZ DO, IRINEO Ot Z82.49 FAMILY HX OF ISCHEM HEART DIS AND OTH DI 06/29/2019 GONSALEZ DO, IRINEO Ot Z90.89 ACQUIRED ABSENCE OF OTHER ORGANS 06/30/2019 GONSALEZ DO, IRINEO Ot E11.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 06/30/2019 GONSALEZ DO, IRINEO Ot E11.40 TYPE 2 DIABETES MELLITUS WITH DIABETIC N 06/30/2019 GONSALEZ DO, IRINEO Ot E66.9 OBESITY, UNSPECIFIED 06/30/2019 GONSALEZ DO, IRINEO Ot E78.00 PURE HYPERCHOLESTEROLEMIA, UNSPECIFIED 06/30/2019 GONSALEZ DO, IRINEO Ot E78.5 HYPERLIPIDEMIA, UNSPECIFIED 06/30/2019 GONSALEZ DO, IRNIEO Ot F17.29 0 NICOTINE DEPENDENCE, OTHER TOBACCO [...] IRINEO Ot I25.10 ATHSCL HEART DISEASE OF [place] CORONARY 06/30/2019 GONSALEZ DO, IRINEO Ot I25.2 [...] ADULT 06/30/2019 GONSALEZ DO, IRINEO Ot Z79.4 SENIOR LIVING (CURRENT) USE OF INSULIN 06/30/2019 GONSALEZ DO, IRINEO Ot Z79.82 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) USE OF ASPIRIN 06/30/2019 GONSALEZ DO, IRINEO Ot Z79.89 9 OTHER 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) DRUG THERAPY 06/30/2019 GONSALEZ DO, IRINEO Ot Z82.49 FAMILY HX OF ISCHEM HEART DIS AND OTH DI 06/30/2019 GONSALEZ DO, IRINEO Ot Z90.89 ACQUIRED ABSENCE OF OTHER ORGANS 07/01/2019 GONSALEZ DO, IRINEO Ot E11.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 W 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 07/01/2019 GONSALEZ DO, IRINEO Ot E11.40 TYPE [...] IRINEO Ot I25.10 ATHSCL HEART DISEASE OF [place] CORONARY 07/01/2019 GONSALEZ DO, IRINEO Ot I25.2 [...] ADULT 07/01/2019 GONSALEZ DO, IRINEO Ot Z79.4 SENIOR LIVING (CURRENT) USE OF INSULIN 07/01/2019 GONSALEZ DO, IRINEO Ot Z79.82 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) USE OF ASPIRIN 07/01/2019 GONSALEZ DO, IRINEO Ot Z79.89 9 OTHER SENIOR LIVING (CURRENT) DRUG THERAPY 07/01/2019 GONSALEZ DO, IRINEO Ot Z82.49 FAMILY HX OF ISCHEM HEART DIS AND OTH DI 07/01/2019 GONSALEZ DO, IRINEO Ot Z90.89 ACQUIRED ABSENCE OF OTHER ORGANS 07/01/2019 GONSALEZ DO, IRINEO Ot E11.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 W 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 07/01/2019 GONSALEZ DO, IRINEO Ot E11.40 TYPE [...] IRINEO Ot I25.10 ATHSCL HEART DISEASE OF [place] CORONARY 07/01/2019 WALLACE STEPHENSON IRINEO Ot I25.2 [...] ADULT 07/01/2019 WALLACE STEPHENSON IRINEO Ot Z79.4 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) USE OF INSULIN 07/01/2019 WALLACE STEPHENSON IRINEO Ot Z79.82 SENIOR LIVING (CURRENT) USE OF ASPIRIN 07/01/2019 WALLACE STEPHENSON IRINEO Ot Z79.89 9 OTHER 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) DRUG THERAPY 07/01/2019 HARLEY GONSALEZ DOI Ot Z82.49 FAMILY HX OF ISCHEM HEART DIS AND OTH DI 07/01/2019 WALLACE STEPHENSON IRINEO Ot Z90.89 ACQUIRED ABSENCE OF OTHER ORGANS 08/14/2019 ROSS RODRÍGUEZ MD Ot Z48.812 ENCNTR FOR SURGICAL AFTCR FOLLOWING SURG 08/14/2019 ROSS RODRÍGUEZ MD Ot Z95. 5 PRESENCE OF CORONARY ANGIOPLASTY IMPLANT 08/15/2019 ROSS RODRÍGUEZ MD, Ot Z48.812 ENCNTR FOR SURGICAL AFTCR FOLLOWING SURG 08/15/2019 ROSS RODRÍGUEZ MD Ot Z95. 5 PRESENCE OF CORONARY ANGIOPLASTY IMPLANT 09/06/2019 ROSS RODRÍGUEZ MD Ot R07. 9 CHEST PAIN, UNSPECIFIED 09/13/2019 ROSS RODRÍGUEZ MD, Ot R07. 9 CHEST PAIN, UNSPECIFIED Procedures Code Description Performed By Per formed On 54.51 LAPA ROSCOP LYSIS-PERITONEAL ADHES 01/16/2015 54.59 OTH LYSIS-PERITONEAL ADHES 01/16/2015 399963D DI LATION OF 1 COR ART WITH DRUG-ELUT INT 04/13/2019 [id number] ME ASURE OF CARDIAC SAMPL PRESSURE, L H 04/13/2019 [id number] FL UOROSCOPY OF MULT COR ART USING L OSM 04/13/2019 [id number] FL UOROSCOPY OF LEFT HEART USING LOW OSMO 04/13/2019 [id number] FL UOROSCOPY OF THORACIC AORTA USING LOW 04/13/2019 Results Test Result Range [id number] - 04/03/16 15:27 Serum or plasma urea [...] (Final to follow) NRG Bacterial sputum culture [id number] [facility] Bacterial susceptibility panel - 8 20:30 Oxacillin [...] in bronchial specimen by aerob e culture [id number] NRG FTX;REPORTABLE FEW OBSERVED, SENSITIVITY REPORTED 3-29 [...] 0.1 10*3/uL 0.0-0.1 Comprehensive metabolic panel - 09/19/19 11:36 Serum or plasma sodium measurement (moles/volume) 140 mmol/L 135-145 Serum or plasma potassium measurement (moles/volume) 4.4 mmol/L 3.6-5.0 Serum or plasma chloride measurement (moles/volume) 104 mmol/L 98-107 Carbon dioxide 24 mmol/L 21-32 Serum or plasma anion gap determination (moles/volume) 12 mmol/L 5-14 Serum or plasma urea nitrogen measurement (mass/volume ) 24 mg/dL 7-18 Serum or plasma creatinine measurement (mass/volume) 1.66 mg/dL 0.60-1.30 Serum or plasma urea nitrogen/creatinine mass ratio 14 NRG Serum or plasma creatinine measurement w ith calculation of estimated glomerular filtration rate 43 NRG Serum or plasma glucose measurement (mass/volume) 319 mg/dL 70-105 Serum or plasma calcium measurement (mass/volume) 9.8 mg/dL 8.5-10.1 Serum or plasma total bilirubin measurement (mass/volu me) 0.4 mg/dL 0.1-1.0 Serum or plasma alkaline phosphatase juan antonio surement (enzymatic activity/volume) 87 U/L 40-136 Serum or plasma aspartate aminotransfera se measurement (enzymatic activity/volume) 48 U/L 5-34 Serum or plasma alanine aminotransferase measurement (enzymatic activity/volume) 54 U/L 0-55 Serum or plasma protein measurement (mass/volume) 7.4 g/dL 6.4-8.2 Serum or plasma albumin measurement (mass/volume) 4.0 g/dL 3.2-4.5 CALCIUM CORRECTED 9.8 mg/dL 8.5-10.1 Magnesium - 09/19/19 11:36 Magnesium 1.9 mg/dL 1.6-2.4 PT panel in platelet poor plasma by coag ulation assay - 09/19/19 11:36 Prothrombin time (PT) in platelet poor plasma by coagu lation assay 14.0 s 12.2-14.7 INR in platelet poor plasma or blood by coagulation as say 1.0 0.8-1.4 Activated partial thromboplastin time (a PTT) in platelet poor plasma bycoagulation assay - 09/19/19 11:36 Activated partial thromboplastin time (a PTT) in platelet poor plasma bycoagulation assay 30 s 24-35 Serum or plasma creatine kinase measurem ent (enzymatic activity/volume) - 09/19/19 11:36 Serum or plasma creatine kinase measurem ent (enzymatic activity/volume) 314 U/L 30-200 Serum or plasma creatine kinase MB measu rement (enzymatic activity/volume) - 09/19/19 11:36 Serum or plasma creatine kinase MB measu rement (enzymatic activity/volume) 7.1 ng/mL <6.6 Myoglobin, serum - 09/19/19 11:36 Myoglobin, serum 142.5 ng/mL 10.0-92.0 Serum or plasma lithium measurement (mol es/volume) - 09/19/19 11:36 BNP PT < 10.0 <100.0 Serum or plasma amylase measurement (enz ymatic activity/volume) - 09/19/19 11:36 Serum or plasma amylase measurement (enzymatic activit y/volume) 37 U/L 25-125 Serum or plasma troponin i.cardiac measu rement (mass/volume) - 09/19/19 11:36 Serum or plasma troponin i.cardiac measurement (mass/v olume) < ng/mL <0.028 Lipase - 09/19/19 11:36 Lipase 56 U/L 8-78 Fibrin D-dimer FEU measurement in platel et poor plasma (mass/volume) - 09/19/19 11:36 Fibrin D-dimer FEU measurement in platelet poor plasma (mass/volume) 0.29 ug/mL 0.00-0.49 Encounters ACCT No. Visit Date/Time Discharge Status Pt. Type Provider Facility Loc./Unit Complaint [id number] 09/05/2019 15:14:00 23:59:59 CLS Outpatient ROSS RODRÍGUEZ MD [facility] LAB CHEST PAIN [id number] 08/08/2019 07:50:00 00:01:00 DIS Outpatient ROSS RODRÍGUEZ MD [facility] CR STENT [id number] 06/08/2019 11:15:00 13:00:00 DIS Outpatient IRINEO GONSALEZ DO [facility] SDC CHEST PAIN [id number] 05/30/2019 12:46:00 11:15:00 DIS Inpatient ROSS RODRÍGUEZ MD [facility] 4TH CHEST PAIN [id number] 05/20/2019 20:51:00 00:40:00 DIS Emergency JORGE OLMOS MD [facility] ER CHEST PAIN [id number] 05/03/2019 21:50:00 14:20:00 DIS Inpatient [facility]AN [facility] [facility] CHEST PAIN [id number] 04/11/2019 09:34:00 12:36:00 DIS Inpatient BILL LYNCH, SONIA Paniagua [facility] ICU CHEST PAIN,NO STEMI, TY PE 2 DM [id number] 03/29/2019 11:40:00 23:59:59 CLS Outpatient BERNIE OLIVER MD [facility] RAD MULTI NODULAR GOITER [id number] 11/21/2018 17:13:00 20:21:00 DIS Emergency ANGEL PACE [facility] ER L EAR PAIN/SORE THROAT /DIZZY [id number] 10/29/2018 21:00:00 06:31:00 DIS Outpatient AMANDA PRINCE APRN [facility] SLEEP CPAP VENTILATIO N TREATMENT NOT TOLERATED [id number] 07/12/2018 07:56:00 23:59:59 CLS Outpatient AMANDA PRINCE APRN [facility] RAD NOCTURNAL HYPOX EMIA, PNEUMONIA, DYSPNEA [id number] 06/22/2018 13:08:00 23:59:59 CLS Outpatient AMANDA PRINCE APRN [facility] RAD UNSPECIFIED MADELYN TERIAL PNEUMONIA [id number] 06/03/2018 12:16:00 23:59:59 CLS Preadmit JORGE LIND [facility] REHAB NECK PAIN [id number] 05/21/2018 16:35:00 14:51:00 DIS Inpatient IRINEO GONSALEZ DO, V [facility] 4TH PNEUMONIA [id number] 04/06/2018 20:52:00 06:22:00 DIS Outpatient AMANDA PRINCE APRN [facility] SLEEP SLEEP APNEA,NOC TURNAL HYPOXEMIA [id number] 04/02/2018 07:45:00 11:42:00 DIS Emergency IVAN MONAHAN MD [facility] ER HERNIA [id number] 03/30/2018 09:25:00 23:59:59 CLS Outpatient MELODY LYNCH, BERNIE Reed [facility] RAD THYROID NODULE [id number] 01/27/2018 21:00:00 018 06:30:00 DIS Outpatient AMANDA PRINCE APRN [facility] SLEEP CPAP VENTILATIO N TREATMENT NOT TOLERATED [id number] 01/20/2018 10:18:00 018 13:25:00 DIS Outpatient MOISÉS LOUIS MD [facility] ENDO HX POLYPS [id number] 01/13/2018 05:39:00 23:59:59 CLS Outpatient MOISÉS LOUIS MD [facility] PREOP COLONOSCOPY [id number] 10/08/2017 10:28:00 018 23:59:59 CLS Outpatient MELODY LYNCH, BERNIE Reed [facility] RAD BILATERAL THYROID NODUL ES [id number] 10/06/2017 12:41:00 018 23:59:59 CLS Outpatient YOLI MALONE [facility] RAD M79.671 [id number] 09/22/2017 08:53:00 018 10:47:00 DIS Emergency AMARILIS LYNCH, JORGE Dewey [facility] ER PAIN IN LOWER R IGHT BACK AND SIDE [id number] 09/16/2017 21:09:00 018 06:45:00 DIS Outpatient AMANDA PRINCE APRN [facility] SLEEP G47.30 SLEEP AP WILBERT [id number] 09/15/2017 08:48:00 018 23:59:59 CLS Outpatient AMANDA PRINCE APRN [facility] RAD R91.8,J18.9 [id number] 08/20/2017 15:37:00 018 23:59:59 CLS Outpatient AMANDA PRINCE APRN [facility] RAD J18.9,R91.8 [id number] 08/19/2017 06:51:00 018 23:59:59 CLS Outpatient BRUNO STEPHENSONBIANCA [facility] ENDO LUNG MASS/PNEUMONIA/DYS PNEA [id number] 08/17/2017 14:00:00 018 14:57:00 DIS Outpatient BRUNO STEPHENSONBIANCA [facility] PREOP BRONCHOSCOPY [id number] 08/05/2017 15:26:00 018 23:59:59 CLS Outpatient GONSALEZ DO IRINEO [facility] RT COUGH [id number] 08/05/2017 08:45:00 018 23:59:59 CLS Outpatient GONSALEZ DO, IRINEO [facility] RAD THYROID NODULE E04.1 [id number] 07/28/2017 07:25:00 018 23:59:59 CLS Outpatient GONSALEZFORTUNATO STEPHENSON IRINEO [facility] RAD J15.20 STAPHYLOCOCCAL P NEUMONIA [id number] 07/15/2017 15:58:00 018 16:34:00 DIS Inpatient LUCI SPARKS DO [facility] 4TH RLL PNUEMONIA [id number] 02/13/2017 08:07:00 017 11:02:00 DIS Outpatient TALITA ALLEN MD [facility] REHAB R SHOULDER RCT [id number] 06/05/2016 14:37:00 017 23:59:59 CLS Outpatient LUCI SPARKS DO [facility] RAD PAIN IN RLQ, HX OF KIDNEY STONES [id number] 04/09/2016 11:15:00 016 23:59:59 CLS Outpatient LIDIA DIEHL DO [facility] RAD ABD PAIN [id number] 04/03/2016 15:13:00 016 23:59:59 CLS Outpatient LIDIA DIEHL DO [facility] LAB ABD PAIN PREP F OR CT [id number] 04/26/2015 07:44:00 10:20:00 DIS Outpatient FAZAL DO, CHANDROUTIE [facility] SDC MULTIPLE ULCERS [id number] 04/24/2015 05:36:00 015 23:59:59 CLS Outpatient FAZAL DO, CHANDROUTIE [facility] PREOP MULTIPLE ULCERS [id number] 04/05/2015 05:41:00 015 23:59:59 CLS Outpatient FAZAL DO, CHANDROUTIE [facility] PREOP MULTIPLE ULCERS [id number] 01/27/2015 23:21:00 015 14:50:00 DIS Inpatient FAZAL DO, CHANDROUTIE [facility] SURGICAL SMALL BOWEL OBSTRUCTION [id number] 01/17/2015 07:26:00 015 16:20:00 DIS Inpatient FAZAL DO, CHANDROUTIE [facility] SURGICAL ABDOMINAL PAIN [id number] 01/09/2015 09:44:00 015 23:59:59 CLS Outpatient FAZAL DO, CHANDROUTIE [facility] PREOP ABDOMINAL PAIN [id number] 12/26/2014 10:04:00 015 13:10:00 DIS Out[facility]AL [facility]; FAMILY HX COLON CANCER [id number] 12/21/2014 06:35:00 015 23:59:59 CLS Outpatient FAZAL DO, CHANDROUTIE [facility] PREOP ABNORMAL DISTOR ATION; FAMILY HX COLON CANCER [id number] 12/04/2014 02:17:00 015 16:00:00 DIS Inpatient FAZAL DO, CHANDROUTIE [facility] SURGICAL SMALL BOWEL OBSTRUCTION [id number] 03/30/2014 08:54:00 014 17:00:00 DIS Outpatient FAZAL DO, CHANDROUTIE [facility] SDC VENTAL HERNIA [id number] 03/28/2014 11:12:00 014 23:59:59 CLS Outpatient FAZAL DO, CHANDROUTIE [facility] PREOP VENTRAL HERNIA [id number] 01/09/2014 14:53:00 014 23:59:59 CLS Outpatient NATALYA LYNCH, HILDA Alcaraz [facility] LAB KIDNEY LESIONS,HYPERLIPADEMA,CKD [id number] 12/28/2013 15:17:00 014 23:59:59 CLS Outpatient LUCI SPARKS DO [facility] RAD DROPPED RAMP RT FOOT [id number] 05/28/2013 07:28:00 014 13:19:00 DIS Inpatient FAZAL DO LIDIA [facility] SURGICAL SMALL BOWEL OBSTRUCTION [id number] 05/11/2013 11:18:00 013 23:59:59 CLS Outpatient LUCI SPARKS DO [facility] RAD CELLULITTIS LT WRIST LAST 2 WEEKS [id number] 01/24/2013 09:47:00 013 23:59:59 CLS Outpatient [id number] 10/28/2012 16:01:00 013 23:59:59 CLS Outpatient LUCI SPARKS DO [facility] LAB CHEST PAINS [id number] 09/22/2012 01:30:00 013 13:35:00 DIS Inpatient LUCI SPARKS DO [facility] 4TH INTRACTABLE RUQ ABD PAIN/CVA [id number] 09/19/2019 11:45:00 Document Registration [id number] 03/06/2012 17:36:00 Document Registration [id number] 11/21/2011 11:11:00 Document Registration [id number] 11/13/2011 15:19:00 Document Registration [id number] 07/24/2011 17:11:00 Document Registration [id number] 05/30/2011 20:53:00 Document Registration [id number] 01/15/2011 11:32:00 Document Registration [id number] 12/14/2010 01:00:00 Document Registration [id number] 12/07/2010 14:00:00 Document Registration
[2019-09-19] MEDS ORDERED: morphine INJ 10 MG/ML 1ML (SYR OR VIAL) IVP STA (13:51)
[2019-09-19 14:15] VITALS: BP 119/71
[2019-09-19] MEDS ORDERED: CATHETER FLUSH 10 ML SYR IV PRN (14:30)
[2019-09-19] MEDS ORDERED: ONDANSETRON 4 MG/2 ML (SDV) Z0FRAN IVP PRN (14:45)
[2019-09-19] MEDS ORDERED: NITROGLYCERIN 0.4 MG SL TABS BTL 25'S SL PRN (14:45)
[2019-09-19] MEDS ORDERED: morphine INJ 4 MG/ML 1 ML (VIAL/SYRINGE) IV PRN (14:45)
[2019-09-19] MEDS ORDERED: INSU500I SC (15:54)
[2019-09-19] MEDS ORDERED: INSU500I SQ (15:54)
[2019-09-19] MEDS ORDERED: LISI10TA2 PO (15:54)
[2019-09-19] MEDS ORDERED: EVOL140P3 (15:54)
[2019-09-19] MEDS ORDERED: METF-478 PO (15:54)
[2019-09-19 16:00] VITALS: BP 110/95
[2019-09-19] MEDS ORDERED: CHOL50005 PO (16:00)
[2019-09-19] MEDS ORDERED: PANT40TA2 PO (16:15)
[2019-09-19] MEDS ORDERED: SUCR1TAB36 PO (16:16)
--- NOTE | 2019-09-19 16:17 | NUR ---
SPOKE WITH THE PT (HE HAD A MED LIST ON HIS PHONE), WENT THRU THE EXT MED HISTORY AND CALLED [facility] TO COMPLETE THE MED REC 05-22-2019 COREG 6.25MG #180/90DS - I DOCUMENTED THE PAST DUE FILL DATE ON THE MED REC 06-13-2019 PROTONIX 40MG #60/30DS- THE DIRECTIONS ARE 1 TAB BID BUT THE PT IS JUST TAKING 1 TAB DAILY- THE SCRIPT IS STILL PAST DUE AND I DOCUMENTED THE PAST DUE FILL ON THE MED REC 08-26-2019 SINGULAR 10MG #90/90DS (THIS FILL IS NOT SHOWING ON THE EXT MED HISTORY) PT HAD RANEXA 500MG 1 TAB BID ON HIS MED LIST HOWEVER [facility] HAS NEVER FILLED THIS MEDICATION FOR HIM. HE IS GOING TO CALL HIS WHEN SHE GETS HOME FROM WORK AND DOUBLE CHECK THAT- HE SAID HE MEDS HAVE BEEN SWITCHED AROUND LATELY AND HE MAY NOT BE TAKING. I TOLD HIM TO EITHER TEXT THE WORK PHONE OR LEAVE ME A MESSAGE AND LET ME KNOW IF HE IS STILL TAKING AND WHERE HE GOT IT FROM. OTC MEDS: MTC CHEW VIT C ASPIRIN CO Q 10 VIT D MAGNESIUM
[2019-09-19] MEDS ORDERED: BACLOFEN 10 MG (LIORESAL) TAB PO PRN (17:00)
[2019-09-19] MEDS ORDERED: RT-ALBUTEROL SULF 2.5 MG/3 ML PRE-MIX VIAL IH PRN (17:00)
[2019-09-19] MEDS ORDERED: SUCRALFATE 1 GM (CARAFATE) TAB PO PRN (17:00)
[2019-09-19] MEDS: inSUlin ASPART (NovoLOG) 1 UNIT/0.01 ML (CHARGE PER UNIT) SC SCH ×2 (17:14→20:05)
[2019-09-19] MEDS: NS IV 1000 ML 1,000 ML IV SCH (17:14)
[2019-09-19] MEDS: MAGNESIUM OXIDE (MAG-OX)400 MG TAB PO SCH (18:03)
[2019-09-19] MEDS ORDERED: ANTACID SUSP 30 ML UDC (MYLANTA) PO PRN (18:15)
[2019-09-19] MEDS ORDERED: ONDANSETRON 4 MG/2 ML (SDV) Z0FRAN IV PRN (18:15)
[2019-09-19] MEDS ORDERED: ONDANSETRON 4 MG (ZOFRAN) ORAL DISSOLVE TAB PO PRN (18:15)
[2019-09-19] MEDS ORDERED: ACETAMINOPHEN 325 MG TABLET PO PRN (18:15)
[2019-09-19] MEDS ORDERED: polyethylene glycoL POWDER 17 GM (MIRALAX) PACK PO PRN (18:15)
[2019-09-19] MEDS ORDERED: MELATONIN 3 MG TABLET PO PRN (18:15)
[2019-09-19] MEDS ORDERED: diphenhydrAMINE 25 MG TAB (BENADRYL) PO PRN (18:15)
[2019-09-19 19:25] VITALS: BP 92/57
[2019-09-19] MEDS: DOCUSATE SODIUM 100 MG (COLACE) CAP PO SCH (20:04)
[2019-09-19] MEDS: ASCORBIC ACID (VIT C) 500 MG TABLET PO SCH (20:05)
[2019-09-19] MEDS: OMEGA 3 (FISH OIL) 1000 MG CAP PO SCH (20:05)
[2019-09-19] MEDS: CARVEDILOL 6.25 MG (COREG) TAB PO SCH (20:43)
[2019-09-19] MEDS ORDERED: MONTELUKAST 10 MG (SINGULAIR) TAB PO SCH (21:00)
[2019-09-19] MEDS ORDERED: FENOFIBRATE 134 MG (LOFIBRA) CAPSULE PO SCH (21:00)
[2019-09-19] MEDS ORDERED: GABAPENTIN 300 MG (NEURONTIN) CAP PO SCH (21:00)
[2019-09-19 21:51] LABS: BILIRUBIN,URINE NEGATIVE (NEGATIVE); CLARITY,URINE CLEAR; COLOR,URINE YELLOW; GLUCOSE, URINE (UA) 1+ (NEGATIVE); KETONES,URINE NEGATIVE (NEGATIVE); LEUKOCYTE ESTERASE ,URINE NEGATIVE (NEGATIVE); NITRITE,URINE NEGATIVE (NEGATIVE); PH,URINE 5.5 (5-9); PROTEIN,URINE 1+ (NEGATIVE)
[2019-09-19 22:13] LABS: HYALINE CASTS, URINE >50 /LPF
[2019-09-19 22:34] LABS: AMORPHOUS SEDIMENT,UR FEW AMOR URATES /LPF; BACTERIA,URINE FEW /HPF
[2019-09-20] VITALS: BP 94/71
[2019-09-20] MEDS: NS IV 1000 ML 1,000 ML IV SCH (02:53)
[2019-09-20 03:13] VITALS: BP 111/70
[2019-09-20 03:47] LABS: BASOPHILS % (AUTO) 0 % (0-10); EOSINOPHILS # (AUTO) 0.3 10^3/uL (0.0-0.3); EOSINOPHILS % (AUTO) 3 % (0-10); HEMATOCRIT 42 % (40-54); HEMOGLOBIN 14.2 G/DL (13.3-17.7); LYMPHOCYTES # (AUTO) 1.8 X 10^3 (1.0-4.0); LYMPHOCYTES % (AUTO) 20 % (12-44); MEAN CORPUSCULAR HEMOGLOBIN 32 PG (25-34); MEAN CORPUSCULAR HGB CONC 34 G/DL (32-36); MEAN CORPUSCULAR VOLUME 95 FL (80-99); MEAN PLATELET VOLUME 11.9 FL (7.4-10.4); MONOCYTES # (AUTO) 0.8 X 10^3 (0.0-1.0); MONOCYTES % (AUTO) 10 % (0-12); NEUTROPHILS # (AUTO) 5.9 X 10^3 (1.8-7.8); NEUTROPHILS % (AUTO) 67 % (42-75); PLATELET COUNT 173 10^3/uL (130-400); RED CELL DISTRIBUTION WIDTH 13.6 % (10.0-14.5); WHITE BLOOD COUNT 8.8 10^3/uL (4.3-11.0)
[2019-09-20 04:03] LABS: ALBUMIN 3.7 GM/DL (3.2-4.5); POTASSIUM 4.1 MMOL/L (3.6-5.0)
[2019-09-20 04:04] LABS: CALCIUM 8.9 MG/DL (8.5-10.1)
[2019-09-20 04:05] LABS: TOTAL PROTEIN 6.6 GM/DL (6.4-8.2)
[2019-09-20 04:07] LABS: BILIRUBIN,TOTAL 0.5 MG/DL (0.1-1.0)
[2019-09-20 04:09] LABS: CREATININE SERUM 2.33 MG/DL (0.60-1.30)
[2019-09-20] MEDS: inSUlin ASPART (NovoLOG) 1 UNIT/0.01 ML (CHARGE PER UNIT) SC SCH ×2 (05:43→11:32)
[2019-09-20 08:00] VITALS: BP 129/81
[2019-09-20] MEDS: DOCUSATE SODIUM 100 MG (COLACE) CAP PO SCH (08:26)
[2019-09-20] MEDS: ASCORBIC ACID (VIT C) 500 MG TABLET PO SCH (08:26)
[2019-09-20] MEDS: CARVEDILOL 6.25 MG (COREG) TAB PO SCH (08:26)
[2019-09-20] MEDS: MAGNESIUM OXIDE (MAG-OX)400 MG TAB PO SCH (08:26)
[2019-09-20] MEDS: OMEGA 3 (FISH OIL) 1000 MG CAP PO SCH (08:27)
[2019-09-20] MEDS ORDERED: ASPIRIN E.C. 81 MG (ECOTRIN) TAB PO SCH ×2 (09:00)
[2019-09-20] MEDS ORDERED: PRASUGREL 10 MG (EFFIENT) TABLET PO SCH (09:00)
[2019-09-20] MEDS ORDERED: PANTOPRAZOLE 40 MG (PROTONIX) TAB PO SCH (09:00)
[2019-09-20] MEDS ORDERED: ALLOPURINOL 300 MG (ZYLOPRIM) TAB PO SCH (09:00)
[2019-09-20] MEDS ORDERED: FUROSEMIDE 40 MG (LASIX) TAB PO SCH (09:00)
[2019-09-20] MEDS ORDERED: VITAMIN D3 125 MCG (5,000 UNITS) CAPSULE PO SCH (09:00)
[2019-09-20] MEDS ORDERED: VITAMIN D3 25 MCG (1,000 UNITS) TABLET PO SCH (09:00)
[2019-09-20] MEDS ORDERED: ISOSORBIDE MONONITRATE 30 MG (IMDUR) TAB PO SCH (09:00)
[2019-09-20] MEDS ORDERED: metFORMIN XR 500 MG (GLUCOPHAGE XR) TAB PO SCH (09:00)
[2019-09-20] MEDS ORDERED: lisINopril 10 MG (PRINIVIL) TABLET PO SCH (09:00)
[2019-09-20] MEDS ORDERED: NON-FORMULARY MEDICATION 1 EA EA (Ubidecarenone (Co Q-10) 100 MG) PO SCH (09:00)
[2019-09-20] MEDS ORDERED: GABAPENTIN 300 MG (NEURONTIN) CAP PO SCH (09:00)
[2019-09-20] MEDS ORDERED: [UNRECOGNIZED DRUG - REMARK] PO SCH (09:00)
[2019-09-20] MEDS ORDERED: CHOLECALCIFEROL 1250 MCG PO SCH (09:00)
[2019-09-20] MEDS ORDERED: NON-FORMULARY MEDICATION 1 EA EA (Ubidecarenone (Co Q-10) 200 MG) PO SCH (09:00)
--- NOTE | 2019-09-20 09:58 | Cardiology Progress Note ---
Subjective Date Seen by Provider: Sep 20, 2019 Time Seen by Provider: 09:56 Subjective/Events-last exam Patient is laying down in bed, feeling better, reporting improvement in his chest pain, had mild right shoulder pain Review of Systems General: No Chills, No Night Sweats, No Fatigue, No Malaise, No Appetite, No Other HEENT: No Head Aches, No Visual Changes, No Eye Pain, No Ear Pain, No Dysphasia, No Sinus Congestion, No Post Nasal Drip, No Sore Throat, No Other Pulmonary: No Dyspnea, No Cough, No Pleuritic Chest Pain, No Other Cardiovascular: No: Chest Pain, Palpitations, Orthopnea, Paroxysmal Noc. Dyspnea, Edema, Lt Headedness, Other Objective-Cardiology Exam Last Set of Vital Signs Vital Signs 09/20/19 08:00 Temp 36.9 Pulse 87 Resp 16 B/P (MAP) 129/81 (97) Pulse Ox 95 O2 Delivery Room Air Capillary Refill : Less Than 3 Seconds I&O Intake and Output 09/20/19 00:00 Intake Total 500 ml Output Total 120 ml Balance 380 ml Intake Oral 500 ml Output Urine Total 120 ml Daily Weight Change No No General: Alert, Oriented X3, Cooperative HEENT: Atraumatic, PERRLA Neck: Supple, No JVD, No Thyromegaly Lungs: Clear to Auscultation, Normal Air Movement Heart: Regular Rate, Normal S1, Normal S2, No Murmurs Abdomen: Normal Bowel Sounds, Soft, No Tenderness, No Hepatosplenomegaly, No Masses Extremities: No Clubbing, No Cyanosis, No Edema, Normal Pulses, No Tenderness/Swelling Skin: No Rashes, No Breakdown, No Significant Lesion Neuro: Normal Gait, Normal Speech, Strength at 5/5 X4 Ext, Normal Tone, Sensation Intact Psych/Mental Status: Mental Status NL, Mood NL Results Lab Laboratory Tests 09/19/19 11:36 09/20/19 03:03 A/P-Cardiology Admission Diagnosis Chest pain Coronary artery disease Hypertension Hyperlipidemia Assessment/Plan Chest pain resembling angina, EKG did not show any acute changes, cardiac enzymes are negative, reassured the patient, probably unstable angina due to small vessel disease. Okay for discharge and follow-up as an outpatient Coronary artery disease, non-ST elevation cardiac infarction occurred recently, had severe stenosis at the right coronary artery with successful deployment of Maday 4 x 23 mm stent expanded to 4.5 mm with excellent results. The distal right PDA is occluded, small vessel disease, circumflex has severe diffuse disease, underwent stenting on May 03, 2019 in [facility], I do not have the report in addition he had [id number] ectasia in the LAD, mild to moderate diffuse disease, went to [facility] late in April 2019 and had another stent to the LAD, had another cardiac catheterization [facility] in May 2019 with stenting to a small diagonal branch, reporting improvement. Follow-up as an outpatient Hypertension, continue to monitor blood pressure Hyperlipidemia, restarted home medication, monitor lipids Chronic renal insufficiency, elevated Creatinine, worsening renal function, I recommended stopping metformin as an outpatient Diabetes mellitus, followed and managed by primary care physician COPD/obstructive sleep apnea Obesity, BMI 39 Multiple back surgeries, recent knee surgery Clinical Quality Measures AMI/AHF: ASA po Prior to arrival: Yes (asa 81 mg x1) DVT/VTE Risk/Contraindication: Risk Factor Score Per Nursin RFS Level Per Nursing on Admit: 4+=Very High ROSS RODRÍGUEZ MD Sep 20, 2019 09:58
[2019-09-20 12:00] VITALS: BP 95/71
--- NOTE | 2019-09-20 13:43 | NUR ---
PT DISCHARGED HOME VIA PRIVATE VEHICLE WITH NO COMPLAINTS. ALL PERSONAL BELONGINGS WITH PATIENT. NO FURTHER QUESTIONS FROM PATIENT AFTER DISCHARGE EDUCATION. PT AMBULATED DOWN TO EXIT WITH NO DIFFICULTIES.
--- NOTE | 2019-09-20 13:59 | NUR ---
RD ASSESSMENT PMHx: CAD; HTN; HLD; chronic renal insufficiency; DM; COPD; RIAZ PT INTERACTION: Pt was awake and pleasant during nutrition assessment. Pt states current appetite is so-so, which is normal for him. Note PO intake of 100% x1meal, per chart review. Pt states following a low-CHO, low-fat diet at home. and has no issues with chewing/swallowing food. Pt states no recent issues with nausea, vomiting, constipation, or diarrhea, and that his last BM was 09/18. Note pt not currently on bowel regimen per chart review. Pt states some recent wt gain, but unsure of amount/timeframe. Note recent 10# wt gain x3mon, per chart review. Pt states current DM management is pretty good, though he had "a bad week, but overall it's pretty steady." Note unable to determine recent HbA1c, per chart review. ABNORMAL NUTRITION-RELATED LAB VALUES LOW: HDL 22 HIGH: BUN 34; cr 2.33; glu 198; AST 57; TG 352; VLDL 70; Est. kcal needs: 3055-4123 kcal | 15-18 kcal/kg Est. Pro needs: 103-129 g Pro | 0.8-1.0 g Pro/kg PES STATEMENT: Given current PO intake, no nutrition diagnosis at this time (NO-1.1) INTERVENTION: Continue with current diet order of CHO 60g/m 1snack diet. Discussed diet education with pt. Pt has good knowledge base of diet education with DM. Discussed fiber intake and its relationship to DM management. Discussed role of physical activity in DM management. Also discussed HDL chol as pt's current lab values are abnormally low. Discussed sources of HDL and pt verbalized understanding. Pt appears confident to continue with current care plan for DM. Will continue to follow and reassess as pt needs, intake, and status change. MONITOR/EVALUATE: PO Intake; Plan of Care; Hydration Status; Weight Status; Lab Values Anthony Rosas, MS, RD, LD
--- NOTE | 2019-09-20 14:50 | Discharge Summary ---
Discharge Summary Hospital Course Was the Problem List Reviewed?: Yes Hospital Course Date of Admission: Sep 19, 2019 at 12:30 Admission Diagnosis : chest pain Family Physician/Provider: Pat Stevens DO Date of Discharge: 09/20/19 Discharge Diagnosis: likely unstable angina due to small vessel coronary artery disease Hospital Course: Tarun Negron is a 53-year-old male with past medical history of hypertension, hyperlipidemia, coronary artery disease, type II diabetes mellitus, chronic kidney disease, COPD, RIAZ, obesity, who presented with chest pain and was admitted to rule out acute coronary syndrome. Cardiology was consulted and assisted with his care. His troponin remained normal and his EKG showed no ischemic changes. Cardiology believed that his pain was due to small vessel disease causing angina. His chest pain had resolved on discharge. He was discharged home in stable condition. He has follow-up scheduled with cardiology and his PCP. Labs and Pending Lab Test: Laboratory Tests 09/19/19 17:10: Troponin I < 0.028 09/19/19 21:43: Urine Color YELLOW, Urine Clarity CLEAR, Urine pH 5.5, Urine Specific [place] >=1.030, Urine Protein 1+H, Urine Glucose (UA) 1+H, Urine Ketones NEGATIVE, Urine Nitrite NEGATIVE, Urine Bilirubin NEGATIVE, Urine Urobilinogen 0.2, Urine Leukocyte Esterase NEGATIVE, Urine RBC (Auto) 3+H, Urine RBC 5-10H, Urine WBC 2- 5, Urine Crystals PRESENTH, Urine Amorphous Sediment FEW JESSICA URATESH, Urine Bacteria FEWH, Urine Casts PRESENT, Urine Hyaline Casts >50H, Urine Mucus NEGATIVE, Urine Culture Indicated YES 09/20/19 00:25: Troponin I < 0.028 09/20/19 03:03: White Blood Count 8.8, Red Blood Count 4.43, Hemoglobin 14.2, Hematocrit 42, Mean Corpuscular Volume 95, Mean Corpuscular Hemoglobin 32, Mean Corpuscular He moglobin Concent 34, Red Cell Distribution Width 13.6, Platelet Count 173, Mean Platelet Volume 11.9H, Neutrophils (%) (Auto) 67, Lymphocytes (%) (Auto) 20, Monocytes (%) (Auto) 10, Eosinophils (%) (Auto) 3, Basophils (%) (Auto) 0, [place] trophils # (Auto) 5.9, Lymphocytes # (Auto) 1.8, Monocytes # (Auto) 0.8, Eosinophils # (Auto) 0.3, Basophils # (Auto) 0.0, Sodium Level 138, Potassium Level 4.1, Chloride Level 103, Carbon Dioxide Level 23, Anion Gap 12, Blood Urea Nitrogen 34H, Creatinine 2.33H, Estimat Glomerular Filtration Rate 29, BUN/Creatinine Ratio 15, Glucose Level 198H, Calcium Level 8.9, Corrected Calcium 9.1, Total Bilirubin 0.5, Aspartate Amino Transf (AST/SGOT) 57H, Alanine Aminotransferase (ALT/SGPT) 55, Alkaline Phosphatase 58, Total Protein 6.6, Albumin 3.7, Triglycerides Level 352H, Cholesterol Level 107, LDL Cholesterol Direct 52, VLDL Cholesterol 70H, HDL Cholesterol 22L Home Meds Active Reported Carafate (Sucralfate) 1 Gm Tablet 1 Gm PO DAILY PRN Protonix (Pantoprazole Sodium) 40 Mg Tablet.dr 40 Mg PO DAILY LAST FILLED 06-13-2019 #60/60 DAYS SUPPLY D3-50 (Cholecalciferol (Vitamin D3)) 1,250 Mcg Capsule 1,250 Mcg PO DAILY Lisinopril 10 Mg Tablet 10 Mg PO DAILY Repatha Sureclick (Evolocumab) 140 Mg/1 Ml Pen.injctr 140 Mg EVERY 2 WEEKS Humulin R U-500 Kwikpen (Insulin Regular, Human) 500 Unit/1 Ml Insuln.pen 115 Unit SQ 1200 W/ LUNCH Humulin R U-500 Kwikpen (Insulin Regular, Human) 500 Unit/1 Ml Insuln.pen 120 Units SC BID WITH MEALS Magnesium (Magnesium Oxide) 400 Mg Tablet 400 Mg PO BIDPC Carvedilol 6.25 Mg Tablet 6.25 Mg PO BID LAST FILLED 05-22-2019 #180/90 DAY SUPPLY Furosemide 40 Mg Tablet 40 Mg PO DAILY Aspirin EC (Aspirin) 81 Mg Tablet.dr 81 Mg PO DAILY Isosorbide Mononitrate ER (Isosorbide Mononitrate) 30 Mg Tab.er.24h 30 Mg PO DAILY Fenofibrate (Fenofibrate,Micronized) 134 Mg Capsule 134 Mg PO HS Prasugrel HCl 10 Mg Tablet 10 Mg PO DAILY Children Multivitamin (Pediatric Multivit Comb No.136) 1 Each Tab.chew 2 Tab.chew PO DAILY Fluticasone-Salmeterol 250-50 (Fluticasone Propion/Salmeterol) 1 Each Blst.w.dev 1 Puff INH BID PRN [place]-3 Acid Ethyl Esters 1 Gm Capsule 2 Gm PO BID TAKES 2 (1GM) CAPSULES Gabapentin 300 Mg Capsule 300 Mg PO DAILY Proair Hfa (Albuterol Sulfate) 1 Puff Puff 2 Puff IH Q4H PRN Ascorbic Acid 500 Mg Tablet 500 Mg PO BID Allopurinol 300 Mg Tablet 300 Mg PO DAILY Gabapentin 300 Mg Capsule 1,500 Mg PO HS TAKES 5 (300MG) CAPSULES Co Q-10 (Ubidecarenone) 200 Mg Capsule 200 Mg PO DAILY TAKEA ALONG WITH 100MG CAPSULE FOR A TOTAL DAILY DOSE OF 300MG Livalo (Pitavastatin Calcium) 4 Mg Tablet 4 Mg PO HS Baclofen 10 Mg Tablet 10 Mg PO TID PRN Montelukast Sodium 10 Mg Tablet 10 Mg PO HS Co Q-10 (Ubidecarenone) 100 Mg Capsule 100 Mg PO DAILY TAKES ALONG WITH 200MG CAPSULE FOR A TOTAL DAILY DOSE OF 300MG Assessment/Pt Instructions take medications as prescribed. Discontinue metformin. Follow-up with your PCP and cardiology as scheduled Discharge Planning: <30 minutes discharge planning Discharge Instructions Discharge Diet: ADA Diet Activity as Tolerated: Yes Pneumonia Vaccine Order Indica: Yes Discharge Physical Examination Vital Signs Vital Signs Date Time Temp Pulse Resp B/P (MAP) Pulse Ox O2 Delivery O2 Flow Rate FiO2 09/20/19 12:24 111 09/20/19 12:00 36.1 15 95/71 (79) 96 Room Air General Appearance: No Apparent Distress, Obese HEENT: PERRL/EOMI, Pharynx Normal Respiratory: Lungs Clear, Normal Breath Sounds, No Respiratory Distress Cardiovascular: Regular Rate, Rhythm, No Murmur Gastrointestinal: Normal Bowel Sounds, Non Tender, Soft Extremity: Normal Inspection, Non Tender, Pedal Edema Skin: Normal Color, Warm/Dry Neurologic/Psychiatric: Alert, Oriented x3, No Motor/Sensory Deficits, Normal Mood/Affect Allergies: Coded Allergies: No Known Drug Allergies (Unverified , 11/21/18) Copy Copies To 1: PAT STEVENS DO Discharge Summary Date of Admission Sep 19, 2019 at 12:30 Date of Discharge Discharge Date: Sep 20, 2019 Discharge Time: 14:45 Admission Diagnosis chest pain Consults/Procedures Consulations cardiology Discharge Diagnosis (1) CAD (coronary artery disease) Status: Acute Qualifiers: Qualified Codes: I25.110 - Atherosclerotic heart disease of [place] coronary artery with unstable angina pectoris (2) Chest pain Status: Acute Clinical Quality Measures AMI/AHF: ASA po Prior to arrival: Yes (asa 81 mg x1) DVT/VTE Risk/Contraindication: Risk Factor Score Per Nursin RFS Level Per Nursing on Admit: 4+=Very High NELSY LLOYD MD Sep 20, 2019 14:49
== END 2019-09-20 13:43 | disposition home or self-care (01) ==
LOC: EDUNIT# 11:30 → ER 11:31 → ICU 12:30
PROVIDERS: ADMIT Internal Medicine; ATTEND Internal Medicine
DX: I25.110 Atherosclerotic heart disease of native coronary artery with unstable angina pectoris (principal); I25.2 Old myocardial infarction; I12.9 Hypertensive chronic kidney disease with stage 1 through stage 4 chronic kidney disease, or unspecified chronic kidney disease; E11.22 Type 2 diabetes mellitus with diabetic chronic kidney disease; E11.40 Type 2 diabetes mellitus with diabetic neuropathy, unspecified; N18.9 Chronic kidney disease, unspecified; E78.5 Hyperlipidemia, unspecified; E78.00 Pure hypercholesterolemia, unspecified; E66.9 Obesity, unspecified; G47.33 Obstructive sleep apnea (adult) (pediatric); G43.909 Migraine, unspecified, not intractable, without status migrainosus; K21.9 Gastro-esophageal reflux disease without esophagitis; G89.29 Other chronic pain; M54.9 Dorsalgia, unspecified; M19.90 Unspecified osteoarthritis, unspecified site; M79.7 Fibromyalgia; J44.9 Chronic obstructive pulmonary disease, unspecified; F17.290 Nicotine dependence, other tobacco product, uncomplicated; M10.9 Gout, unspecified; F32.9 Major depressive disorder, single episode, unspecified; F41.9 Anxiety disorder, unspecified; Z79.82 Long term (current) use of aspirin; Z79.891 Long term (current) use of opiate analgesic; Z79.4 Long term (current) use of insulin; Z68.37 Body mass index [BMI] 37.0-37.9, adult
CPT/HCPCS: 36415; 71045; 80053; 80061; 81000; 82150; 82550; 82553; 83690; 83735; 83874; 83880; 84484; 85025; 85379; 85610; 85730; 87077; 87088; 93005; 93041

== ENCOUNTER 2019-09-26 10:17 | Outpatient (CLI) | payer MEDICARE, OTHER ==
[~2019-09-26] VITALS: Ht 180 cm; Wt 127.0 kg
[~2019-09-26 10:17] MED LIST changes: +CHOL50005 PO; +EVOL140P3; +INSU500I SC; +INSU500I SQ; +METF-478 PO; +SUCR1TAB36 PO
[2019-09-26] MEDS ORDERED: FLUT1DIS26 IH (11:41)
[2019-09-26] MEDS ORDERED: OMEG1CAP PO (11:41)
[2019-09-26] MEDS ORDERED: HYDR-83 PO (11:41)
[2019-09-26] MEDS ORDERED: NITR0.4T39 SL (11:41)
[2019-09-26] MEDS ORDERED: PROM25TA14 PO (11:41)
[2019-09-26] MEDS ORDERED: CARV3.122 PO (11:41)
== END 2019-09-26 13:45 ==
LOC: PREOP 10:17
PROVIDERS: ATTEND Surgery
DX: Z01.818 Encounter for other preprocedural examination (principal); Z11.59 Encounter for screening for other viral diseases
CPT/HCPCS: 87635

== ENCOUNTER 2019-09-29 08:40 | Day surgery (SDC) | payer MEDICARE, OTHER ==
[2019-09-29] VITALS (11 sets, daily range): BP systolic 123–146; BP diastolic 78–96
[~2019-09-29] VITALS: Ht 180 cm; Wt 127.0 kg
--- NOTE | 2019-09-29 08:38 | Discharge Inst-Surgical ---
D/C Lap Instructions-KIDO Reconcile Patient Problems Problems Reviewed?: Yes New, Converted, or Re-Newed RX: RX on Chart Follow Up Appt in 2 weeks Activity as tolerated No driving for 24 hours No driving while on pain medications Incentive Spirometry use every 2 hours while awake Regular Diet Symptoms to Report: Fever over 101 degree F, Nausea/Vomiting Infection Signs and Symptoms to report: Increased redness, Foul odor of wound, Increased drainage Bathing instructions: May shower Operative Area Clean/Dry; Keep incision clean/dry If any problems/questions: Contact your physician or go to Emergency Room PHIL CLAY APRN September 29, 2019 08:38
[~2019-09-29 08:40] MED LIST changes: +CARV3.122 PO; +FLUT1DIS26 IH; +HYDR-4227 PO; +HYDR-83 PO; +NITR0.4T39 SL; +OMEG1CAP PO
--- NOTE | 2019-09-29 08:46 | Progress Note-Pre Operative ---
Pre-Operative Progress Note H&P Reviewed The H&P was reviewed, patient examined and no changes noted. Date Seen by Provider: September 29, 2019 Time Seen by Provider: 08:45 Date H&P Reviewed: September 29, 2019 Time H&P Reviewed: 08:40 Pre-Operative Diagnosis: Symptomatic ventral abdominal incisional hernia PHIL CLAY APRN September 29, 2019 08:46
[2019-09-29] MEDS ORDERED: LACTATED RINGERS 1,000 ML IV PRN (08:52)
[2019-09-29] MEDS ORDERED: morphine INJ 10 MG/ML 1ML (SYR OR VIAL) IVP PRN (09:00)
[2019-09-29] MEDS ORDERED: ceFAZolin 2 GM IV Premixed 50 ML IV ONE (09:00)
[2019-09-29] MEDS ORDERED: ACETAMINOPHEN 325 MG TABLET PO PRN (09:00)
[2019-09-29] MEDS ORDERED: oxyCODONE/APAP 5/325MG (PERCOCET 5) TABLET PO PRN (09:00)
[2019-09-29] MEDS ORDERED: ONDANSETRON 4 MG/2 ML (SDV) Z0FRAN IVP PRN (09:00)
[2019-09-29] MEDS ORDERED: ENOX40DI13 SQ (09:08)
[2019-09-29] MEDS ORDERED: MIDAZOLAM 2 MG/2 ML (VERSED) VIAL ONE (09:41)
[2019-09-29] MEDS ORDERED: fentaNYL INJECTION 100 MCG/2 ML AMP ONE (09:41)
[2019-09-29] MEDS ORDERED: BUP/EPI 0.5% 1:200,000 (SENSORCAINE) 30 ML VIAL ONE (09:58)
[2019-09-29] MEDS ORDERED: NEOSTIGMINE 3 MG/3 ML VIAL ONE (11:04)
[2019-09-29] MEDS ORDERED: ONDANSETRON 4 MG/2 ML (SDV) Z0FRAN ONE (11:04)
[2019-09-29] MEDS ORDERED: GLYCOPYRROLATE 0.2 MG/ML (ROBINUL) 2 ML VIAL ONE (11:04)
[2019-09-29] MEDS ORDERED: SEVOFLURANE (ULTANE) 15 ML INHAL SOLN ONE ×4 (11:04→11:51)
[2019-09-29] MEDS ORDERED: ROCURONIUM 10 MG/ML 5 ML SYRINGE IV ONE ×2 (11:04→11:45)
[2019-09-29] MEDS ORDERED: LIDOCAINE PF 2% 5 ML (XYLOCAINE) VIAL ONE (11:05)
[2019-09-29] MEDS ORDERED: proPOfol 200 MG/20 ML (DIPRIVAN) VIAL IV ONE (11:05)
[2019-09-29] MEDS ORDERED: PHENYLEPHRINE 100 MCG/ML 10 ML (ANESTHESIA) SYR ONE (11:05)
--- NOTE | 2019-09-29 11:38 | Progress Note-Post Operative ---
Post-Operative Progess Note Surgeon (s)/Account Assistant (s) Surgeon MOISÉS LOUIS MD Account Assistant: dany alcantara [employer]FORM[employer]PER[employer] Pre-Operative Diagnosis Symptomatic ventral abdominal incisional hernia Post-Operative Diagnosis same Procedure & Operative Findings Date of Procedure 09/29/19 Procedure Performed/Findings reducible symptomatic ventral abd incisional hernia repair with mesh. Anesthesia Type get Estimated Blood Loss Estimated blood loss (mL): minimal Specimens/Packing Specimens Removed hernia sac MOISÉS LOUIS MD September 29, 2019 11:38
--- NOTE | 2019-09-29 13:09 | Anesthesia-General Post-Op ---
General Patient Condition Mental Status/LOC: Same as Preop Cardiovascular: Satisfactory Nausea/Vomiting: Absent Respiratory: Satisfactory Pain: Controlled Complications: Absent Post Op Complications Complications None Follow Up Care/Instructions Patient Instructions None needed. Anesthesia/Patient Condition Patient Condition Patient is doing well, no complaints, stable vital signs, no apparent adverse anesthesia problems. SEGUN VILLALBA DO September 29, 2019 13:09
--- NOTE | 2019-09-29 13:59 | OPERATIVE REPORT ---
DATE OF SERVICE: 09/29/2019 ATTENDING PRIMARY CARE PHYSICIAN: Dr. Stevens. PREOPERATIVE DIAGNOSIS: Symptomatic ventral abdominal incisional hernia. POSTOPERATIVE DIAGNOSIS: Symptomatic ventral abdominal incisional hernia. The hernia was reducible with the size of the defect approximately 1.5 cm in size. PROCEDURE PERFORMED: Open ventral abdominal incisional hernia repair with mesh. SURGEON: Moisés Louis MD. SAS BI DEVELOPER: Aj Mcgraw APRN. ANESTHESIA: General endotracheal. ESTIMATED BLOOD LOSS: Minimal. FINDINGS: Ventral abdominal incisional hernia with a defect 1.5 cm in size with small bowel within the hernia sac. DISPOSITION: The patient tolerated the procedure well. INDICATIONS FOR PROCEDURE: The patient is a 53-year-old male, who underwent a laparoscopic cholecystectomy in 2005. He then developed an incisional hernia and underwent a repair of the hernia; however, there was considerable adhesion tissue and underwent a laparoscopic procedure, which was converted to an open laparotomy. He reports in the past year he developed pain and a palpable bulge in the umbilical region along the right lateral aspect. He does have a number of medical comorbidities; however, he states that the pain is significant and he wanted to proceed with the hernia repair, even though he was deemed high risk by cardiology. The risks and benefits of the surgery were explained to the patient in depth and he was in full understanding of the potential complication and they wanted to proceed with surgery. He was instructed to discontinue his Effient and he was started on a bridge therapy with Lovenox. DESCRIPTION OF PROCEDURE: The patient was brought to the operating room and laid supine on the table. After adequate IV pain and sedative medications and general endotracheal intubation, the abdomen was prepped and draped in a standard surgical fashion. A 0.5% Marcaine with epinephrine was then used to anesthetize the overlying skin along the previous midline laparotomy incision next to the umbilicus. Skin incision was made using a 15 blade. We then proceeded with dissection of the subcutaneous tissue using electrocautery until the defect was identified, which was a small ventral abdominal incisional hernia with a defect approximately 1.5 cm in size. The area around the fascia was then cleared off. The hernia sac was then opened using Metzenbaum scissors. The hernia was reducible; however, there was small bowel within the hernia sac. We then proceeded with a gentle dissection of the adhesed small bowel along the anterior abdominal wall using Metzenbaum scissors. Good hemostasis was observed. A 6.4 round coated polypropylene mesh was then placed into the defect and sutured concentrically around the defect transfascially using 0 Prolene sutures. Good hemostasis was observed. Subcutaneous tissue was then reapproximated using 3-0 Vicryl interrupted sutures and the skin was closed using 4-0 Monocryl running subcuticular suture. Wound was then cleaned and covered with Dermabond. The umbilicus was then stuffed with tonsil sponges followed by 4 x 4 gauze followed by a large Op-Site followed by a large abdominal binder. The patient tolerated the procedure well. We will start IV normal pain medication as well as a clear liquid diet. Once he is tolerating the clears, has good pain control with oral pain medications and ambulating well, we will discharge him home. Job ID: [id number] DocumentID: [id number] Dictated Date: 09/29/2019 11:45:03 Deputy Coroner Investigator Date: 09/29/2019 13:58:14 Dictated By: MOISÉS LOUIS MD
== END 2019-09-29 14:15 | disposition home or self-care (01) ==
LOC: SDC 08:40
PROVIDERS: ATTEND Surgery
DX: K43.2 Incisional hernia without obstruction or gangrene (principal); K66.0 Peritoneal adhesions (postprocedural) (postinfection); I10 Essential (primary) hypertension; I25.10 Atherosclerotic heart disease of native coronary artery without angina pectoris; I25.2 Old myocardial infarction; M19.90 Unspecified osteoarthritis, unspecified site; E11.40 Type 2 diabetes mellitus with diabetic neuropathy, unspecified; E11.69 Type 2 diabetes mellitus with other specified complication; E78.00 Pure hypercholesterolemia, unspecified; E78.5 Hyperlipidemia, unspecified; E66.9 Obesity, unspecified; K21.9 Gastro-esophageal reflux disease without esophagitis; M86.9 Osteomyelitis, unspecified; G43.909 Migraine, unspecified, not intractable, without status migrainosus; Z95.1 Presence of aortocoronary bypass graft; Z90.89 Acquired absence of other organs; Z68.39 Body mass index [BMI] 39.0-39.9, adult; Z79.4 Long term (current) use of insulin; Z90.49 Acquired absence of other specified parts of digestive tract; Z80.3 Family history of malignant neoplasm of breast; Z79.82 Long term (current) use of aspirin; Z79.899 Other long term (current) drug therapy; Z79.891 Long term (current) use of opiate analgesic; Z80.0 Family history of malignant neoplasm of digestive organs
CPT/HCPCS: 87081

== ENCOUNTER 2019-10-01 15:25 | Inpatient (IN) | payer MEDICARE, OTHER ==
[~2019-10-01] VITALS: Ht 180 cm; Wt 125.3 kg
[~2019-10-01 15:25] MED LIST changes: +ENOX40DI13 SQ; +METF-865 PO; -METF500T19 PO
[2019-10-01] MEDS ORDERED: ASPIRIN 81 MG CHEW (CHILDREN'S ASA) PO ONE (16:00)
[2019-10-01] MEDS ORDERED: fentaNYL INJECTION 100 MCG/2 ML AMP IVP STA (16:14)
[2019-10-01] MEDS ORDERED: ONDANSETRON 4 MG/2 ML (SDV) Z0FRAN IVP ONE (16:15)
[2019-10-01] MEDS ORDERED: LACTATED RINGERS 1,000 ML IV ONE (16:18)
--- NOTE | 2019-10-01 16:24 | ED Abdominal Pain ---
General Stated Complaint: CHEST PAIN Source of Information: Patient Exam Limitations: No Limitations History of Present Illness Date Seen by Provider: October 01, 2019 Time Seen by Provider: 15:32 Initial Comments Here with report of significant abdominal pain. He has had dry heaves which caused chest pain which is why they indicated chest pain on arrival stated complaint. States really his pain is in the abdomen. He does have chest discomfort after dry heaving. He does have history of stents and chest problems are still a concern for him. He is on blood thinners and aspirin restarted those this morning. He had abdominal hernia repair 09/29/19 and was discharged home. Tolerated procedure okay. Doing okay yesterday. He has not had bowel movement. He has been unable to eat and drink. Now he reports that his abdomen is quite distended and painful and he has not had bowel movement today. Not passing gas. Overall states he is in quite a bit of discomfort. Denies fever or chills. Timing/Duration: 1-3 Hours Severity/Quality: Moderate, Severe Location: Generalized Abdomen Radiation: Chest Activities at Onset: None Modifying Factors: Worsens With Eating, Worsens With Movement, Worsens With Palpation Associated Symptoms: No Back Pain; Chest Pain; No Fever/Chills; Nausea/Vomiting; No Shortness of Air; Swelling/Mass in Abdomen; No Weakness Allergies and Home Medications Allergies Coded Allergies: No Known Drug Allergies (Unverified , 09/26/19) Home Medications Albuterol Sulfate 1 Puff Puff, 2 PUFF IH Q4H PRN for SHORTNESS OF BREATH, (Reported) Allopurinol 300 Mg Tablet, 300 MG PO DAILY, (Reported) Ascorbic Acid 500 Mg Tablet, 1,000 MG PO BID, (Reported) Aspirin 81 Mg Tablet.dr, 81 MG PO DAILY, (Reported) Baclofen 10 Mg Tablet, 10 MG PO TID PRN for SPASMS, (Reported) Carvedilol 3.125 Mg Tablet, 3.125 MG PO BID, (Reported) Cholecalciferol (Vitamin D3) 1,250 Mcg Capsule, 1,250 MCG PO DAILY, (Reported) Enoxaparin Sodium 40 Mg/0.4 Ml Syringe, 40 MG SQ BID, (Reported) Evolocumab 140 Mg/1 Ml Pen.injctr, 140 MG EVERY 2 WEEKS, (Reported) Fenofibrate,Micronized 134 Mg Capsule, 134 MG PO HS, (Reported) Fluticasone/Salmeterol 1 Each Blst.w.dev, 1 EACH IH BID, (Reported) Furosemide 40 Mg Tablet, 40 MG PO DAILY, (Reported) Gabapentin 300 Mg Capsule, 1,500 MG PO HS, (Reported) TAKES 5 (300MG) CAPSULES Gabapentin 300 Mg Capsule, 300 MG PO DAILY, (Reported) Hydrocodone/Acetaminophen 1 Each Tablet, 1 EACH PO Q4H PRN for PAIN-MODERATE (5- 7), (Reported) Hydrocodone/Acetaminophen 1 Each Tablet, 1-2 TAB PO Q4H Prescribed by: PHIL CLAY on 09/29/19 0837 Insulin Regular, Human 500 Unit/1 Ml Insuln.pen, 120 UNITS SC BID WITH MEALS, (Reported) Insulin Regular, Human 500 Unit/1 Ml Insuln.pen, 115 UNIT SQ 1200 W/ LUNCH, (Reported) Isosorbide Mononitrate 30 Mg Tab.er.24h, 30 MG PO DAILY, (Reported) Lisinopril 10 Mg Tablet, 10 MG PO DAILY, (Reported) Magnesium Oxide 400 Mg Tablet, 400 MG PO BIDPC, (Reported) Montelukast Sodium 10 Mg Tablet, 10 MG PO HS, (Reported) Nitroglycerin 0.4 Mg Tab.subl, 0.4 MG SL UD PRN for CHEST PAIN, (Reported) [place]-3 Acid Ethyl Esters 1 Gm Capsule, 1 GM PO BID, (Reported) Pantoprazole Sodium 40 Mg Tablet.dr, 40 MG PO DAILY, (Reported) LAST FILLED 06-13-2019 #60/60 DAYS SUPPLY Pediatric Multivit Comb No.136 1 Each Tab.chew, 2 TAB.CHEW PO DAILY, (Reported) Pitavastatin Calcium 4 Mg Tablet, 4 MG PO HS, (Reported) Prasugrel HCl 10 Mg Tablet, 10 MG PO DAILY, (Reported) Promethazine HCl 25 Mg Tablet, 25 MG PO Q6H PRN for NAUSEA/VOMITING, (Reported) Ubidecarenone 100 Mg Capsule, 100 MG PO DAILY, (Reported) TAKES ALONG WITH 200MG CAPSULE FOR A TOTAL DAILY DOSE OF 300MG Ubidecarenone 200 Mg Capsule, 200 MG PO DAILY, (Reported) TAKEA ALONG WITH 100MG CAPSULE FOR A TOTAL DAILY DOSE OF 300MG Patient Home Medication List Home Medication List Reviewed: Yes Review of Systems Review of Systems Constitutional: see HPI; No chills, No fever EENTM: No Symptoms Reported Respiratory: No Symptoms Reported Cardiovascular: See HPI, Chest Pain; Denies Edema Gastrointestinal: Abdominal Pain; Denies Constipated, Denies Diarrhea; Nausea, Vomiting Genitourinary: No Symptoms Reported Musculoskeletal: no symptoms reported Skin: change in color, lesions Psychiatric/Neurological: No Symptoms Reported All Other Systems Reviewed Negative Unless Noted: Yes Past Beezond-Yylzli-Ylbytz Hx Past Med/Social Hx: Reviewed Nursing Past Med/Soc Hx Patient Social History Alcohol Use: Occasionally Uses Alcohol Beverage of Choice: Beer Recreational Drug Use: No Type Used: Smokeless Tobacco 2nd Hand Smoke Exposure: No Recent Foreign Travel: No Contact w/Someone Who Travel: No Recent Hopitalizations: Yes (09/11 CHEST PAIN) Immunizations Up To Date Tetanus Booster (TDap): Unknown PED Vaccines UTD: No Date of Pneumonia Vaccine: Mar 01, 2018 Date of Influenza Vaccine: Feb 28, 2019 Seasonal Allergies Seasonal Allergies: Yes Past Medical History Surgeries: Yes (SEE BELOW) Abdominal, Adenoidectomy, Appendectomy, Cardiac, Coronary Stent, Gallbladder, Orthopedic, Tonsillectomy Respiratory: Yes Pneumonia, Sleep Apnea, COPD Currently Using CPAP: No Currently Using BIPAP: No Cardiac: Yes (NSTEMI 03/2019; STENTS X 4) Chronic Edema/Swelling, Coronary Artery Disease, Heart Attack, High Cholesterol, Hypertension Neurological: Yes Headaches /Migraines, Neuropathy Reproductive Disorders: No Sexually Transmitted Disease: No HIV/AIDS: No Genitourinary: Yes (CHRONIC RENAL INSUFFICIENCY) Kidney Stones, Renal Failure Gastrointestinal: Yes (SURGERY FOR BOWEL OBSTRUCTIONS/ADHESIONS;CHERYL FUNDOPLICATION;PENELOPE) Gastroesophageal Reflux, Obstructive Bowel, Hiatal Hernia, Gall Bladder Disease Musculoskeletal: Yes (MUJLTIPLE BACK SURGERIES; KNEE SURGERY; RIGHT ARM SURGERY) Degenerate Disk Disease, Arthritis, Fibromyalgia, Back Injury, Chronic Back Pa in, Fractures, Gout Endocrine: Yes Diabetes, Insulin dep HEENT: No Tonsilitis Loss of Vision: Bilateral Hearing Impairment: Denies Cancer: No Psychosocial: Yes Anxiety, Depression Integumentary: No Blood Disorders: No Adverse Reaction/Blood Tranf: No (N/A) Family Medical History Reviewed Nursing Family Hx Abdominal aortic aneurysm 09 BROTHER Cancer 03 MOTHER Cancer of colon 03 MOTHER 09 SISTER 19 MOTHER FH: COPD (chronic obstructive pulmonary disease) 19 FATHER FH: leukemia 09 SISTER 19 MOTHER FHx: stroke 19 FATHER Family history: Diabetes mellitus 09 BROTHER 09 SISTER 09 SISTER 09 SISTER Family history: Gastrointestinal disease 03 MOTHER 09 BROTHER Cancer, Diabetes, Hypertension, Stroke PSH: -CARDIAC CATHS--STENTS X 4, PER PT -EGD'S -COLONOSCOPIES/POLYPECTOMY -MULTIPLE BACK CXKICIQNE-L6-H6 FUSION AND PLATES/RODS; NERVE STIMULATOR-REMOVED -LITHOTRIPSY -LEFT KNEE SCOPE/ACL REPAIR -WISDOM TEETH -TONSILLECTOMY -APPENDECTOMY -CHOLECYSTECTOMY -ABDOMINAL LAPAROTOMY FOR BOWEL OBSTRUCTIONS/LYSIS OF ADHESIONS -VENTRAL HERNIA REPAIR -CHERYL FUNDOPLICATION -BILATERAL CARPAL TUNNEL -RIGHT WRIST FX/ORIF Physical Exam Vital Signs Vital Signs - First Documented 10/01/19 16:44 Temp 36.1 Pulse 124 Resp 18 B/P (MAP) 127/97 (107) Capillary Refill : Height/Weight/BMI Height: 5'11.00" Weight: 260lbs. 8.0oz. 117.669843xs; 39.19 BMI Method:Stated General Appearance: WD/WN, moderate distress HEENT: PERRL/EOMI, pharynx normal Neck: full range of motion, supple Respiratory: lungs clear, normal breath sounds Cardiovascular: no murmur, tachycardia Peripheral Pulses: 2+ Dorsalis Pedis (R), 2+ Left Dors-Pedis (L), 2+ Radial Pulses (R), 2+ Radial Pulses (L) Gastrointestinal: abnormal bowel sounds (tinic sounding), distended, tenderness (globally), other Extremities: non-tender, normal inspection Back: normal inspection, no CVA tenderness, no vertebral tenderness Neurologic/Psychiatric: alert, oriented x 3 Skin: warm/dry, ecchymosis (lower abdomen as patient is on Lovenox injections. Surgical wound cover with dressing that is clean, dry and intact.) Progress/Results/Core Measures Results/Orders Lab Results Laboratory Tests Test 10/01/19 16:20 10/01/19 17:04 Range/Units White Blood Count 18.1 H 4.3-11.0 10^3/uL Red Blood Count 5.33 4.35-5.85 10^6/uL Hemoglobin 17.2 13.3-17.7 G/DL Hematocrit 50 40-54 % Mean Corpuscular Volume 93 80-99 FL Mean Corpuscular Hemoglobin 32 25-34 PG Mean Corpuscular Hemoglobin Concent 35 32-36 G/DL Red Cell Distribution Width 13.8 10.0-14.5 % Platelet Count 232 130-400 10^3/uL Mean Platelet Volume 12.4 H 7.4-10.4 FL Neutrophils (%) (Auto) 82 H 42-75 % Lymphocytes (%) (Auto) 9 L 12-44 % Monocytes (%) (Auto) 9 0-12 % Eosinophils (%) (Auto) 1 0-10 % Basophils (%) (Auto) 0 0-10 % Neutrophils # (Auto) 14.8 H 1.8-7.8 X 10^3 Lymphocytes # (Auto) 1.6 1.0-4.0 X 10^3 Monocytes # (Auto) 1.6 H 0.0-1.0 X 10^3 Eosinophils # (Auto) 0.1 0.0-0.3 10^3/uL Basophils # (Auto) 0.0 0.0-0.1 10^3/uL Neutrophils % (Manual) 78 % Lymphocytes % (Manual) 3 % Monocytes % (Manual) 9 % Eosinophils % (Manual) 1 % Basophils % (Manual) 0 % Band Neutrophils 5 % Reactive Lymphocytes 4 % Blood Morphology Comment NORMAL Sodium Level 137 135-145 MMOL/L Potassium Level 5.0 3.6-5.0 MMOL/L Chloride Level 92 L 98-107 MMOL/L Carbon Dioxide Level 29 21-32 MMOL/L Anion Gap 16 H 5-14 MMOL/L Blood Urea Nitrogen 31 H 7-18 MG/DL Creatinine 2.16 H 0.60-1.30 MG/DL Estimat Glomerular Filtration Rate 32 BUN/Creatinine Ratio 14 Glucose Level 254 H 70-105 MG/DL Calcium Level 12.5 H 8.5-10.1 MG/DL Corrected Calcium 12.1 H 8.5-10.1 MG/DL Magnesium Level 2.4 1.6-2.4 MG/DL Total Bilirubin 1.2 H 0.1-1.0 MG/DL Aspartate Amino Transf (AST/SGOT) 58 H 5-34 U/L Alanine Aminotransferase (ALT/SGPT) 60 H 0-55 U/L Alkaline Phosphatase 61 40-136 U/L Myoglobin 116.8 H 10.0-92.0 NG/ML Troponin I < 0.028 <0.028 NG/ML Total Protein 8.7 H 6.4-8.2 GM/DL Albumin 4.5 3.2-4.5 GM/DL Lipase 30 8-78 U/L Prothrombin Time 14.0 12.2-14.7 SEC INR Comment 1.0 0.8-1.4 Activated Partial Thromboplast Time 28 24-35 SEC My Orders Orders - MAINE WONG MD Cbc With Automated Diff (10/01/19 15:47) Magnesium (10/01/19 15:47) Chest 1 View, Ap/Pa Only (10/01/19 15:47) Ekg Tracing (10/01/19 15:47) Comprehensive Metabolic Panel (10/01/19 15:47) Myoglobin Serum (10/01/19 15:47) Protime With Inr (10/01/19 15:47) Partial Thromboplastin Time (10/01/19 15:47) O2 (10/01/19 15:47) Monitor-Rhythm Ecg Trace Only (10/01/19 15:47) Lipid Panel (10/02/19 06:00) Ed Iv/Invasive Line Start (10/01/19 15:47) Lipase (10/01/19 15:47) Fentanyl Injection (Sublimaze Injection (10/01/19 16:14) Ondansetron Injection (Zofran Injectio (10/01/19 16:15) Lactated Ringers (Lr 1000 Ml Iv Solution (10/01/19 16:18) Ct Abdomen/Pelvis Wo (10/01/19 16:44) Troponin I (10/01/19 16:20) Manual Differential (10/01/19 16:20) Benzocaine Extension Tube (Hurricaine Ex (10/01/19 17:54) Medications Given in ED Current Medications Medications Dose Ordered Sig/Lamin Route Start Time Stop Time Status Last Admin Dose Admin Lactated Ringer's 1,000 ml @ 0 mls/hr Q0M ONCE IV 10/01/19 16:18 10/01/19 16:19 DC 10/01/19 16:31 1,000 MLS/HR Ondansetron HCl 4 mg ONCE ONCE IVP 10/01/19 16:15 10/01/19 16:16 DC 10/01/19 16:34 4 MG Vital Signs/I&O 10/01/19 16:44 Temp 36.1 Pulse 124 Resp 18 B/P (MAP) 127/97 (107) Progress Progress Note : Progress Note Seen and evaluated. IV, labs, EKG and chest x-ray ordered. Chest and belly labs ordered. Fentanyl 75 g IV, Zofran 4 mg IV and LR [address] abdomen and pelvis anticipated given patient's distended abdomen and postoperative. Monitor patient. 1735: Patient has small bowel instruction findings on CT exam. Case discussed with Dr. Armstrong and he will see the patient in consult recreational aide for Dr. Arredondo. Recommends NG tube which is ordered. 174: I did discuss the case with Dr. Moreno, on-call for Dr. Gonsalez and she accepts patient for admission, inpatient status and will manage patient's chronic underlying medical conditions. Patient has insulin-dependent diabetes with blood sugar in the mid 200s. We will initiate sliding scale C. Patient will be nothing by mouth. 1810: NG tube placed and at least 1000 mL output so far. Dr. Armstrong has seen the patient. Patient agrees to admission. 1814: Patient had 2400 mL of output from the NG tube and feels much better now. Initial ECG Impression Date: October 01, 2019 Initial ECG Impression Time: 15:49 Initial ECG Rate: 126 Comment Sinus tachycardia with ventricular bigeminy. No evidence of ST elevation [place]. Normal but rightward axis. Underlying complex is similar to previous of 09/20/19. Interpreted by me. Diagnostic Imaging Diagonstic Imaging: Xray Comments [facility] [place], [place] NAME: [facility] REC#: [id number] PT STATUS: REG ER : 1965 PHYSICIAN: MAINE WONG MD ADMIT DATE: 10/01/19/ER Draft Date of Exam:10/01/19 CHEST 1 VIEW, AP/PA ONLY INDICATION: Hernia repair with chest pain and bloating. Comparison made with prior examination from 09/19/2019. FINDINGS: There is cardiomegaly. There is some venous congestion. There is no pleural fusion or pneumothorax. Mediastinum is unremarkable. IMPRESSION: Cardiomegaly and mild central pulmonary venous congestion. Dictated on workstation # [id number] Dict: 10/01/19 1702 Trans: 10/01/19 1707 [id number] Interpreted by: DILEEP BROOKS MD Electronically signed by: Main Imaging: CT Plain Films/CT/US/NM/MRI: abdomen, pelvis Comments [facility] [place], [place] NAME: [facility] REC#: [id number] PT STATUS: REG ER : 1965 PHYSICIAN: MAINE WONG MD ADMIT DATE: 10/01/19/ER Draft Date of Exam:10/01/19 CT ABDOMEN/PELVIS WO PROCEDURE: CT abdomen/pelvis w/o. TECHNIQUE: Unenhanced CT imaging of the abdomen and pelvis was performed. 2-D reformats are created and submitted for interpretation. Automatic exposure controls were utilized to optimize patient dose. INDICATION: Nausea and vomiting. Recent hernia repair. COMPARISON: CTA chest of 05/20/2019. FINDINGS: Evaluation of the abdominal viscera is mildly limited without contrast. Lower chest: There is a small amount of linear atelectasis within the right lung base. Otherwise, visualized aspects of the lower chest are normal. Peritoneum: No free intraperitoneal air or fluid. Liver and biliary system: Hepatomegaly as the liver measures 25 cm in craniocaudal dimension. It has marked diffuse hypodensity indicative of diffuse hepatic steatosis. No focal hepatic lesion. Cholecystectomy. No pathologic biliary duct dilatation. Spleen and Pancreas: Spleen is normal. Unenhanced pancreas is grossly normal. Adrenals: Normal. tract: No renal or ureteral calculi. No obstructive uropathy. Prostate is unremarkable. GI tract: Moderate distention of the stomach with fluid and air. Numerous small bowel loops are dilated up to 5 cm in the midabdomen. There is a transition point to decompressed bowel loops at the level of the umbilical hernia repair site. There is a loop of small bowel at the midline hernia which could represent diverting ostomy. No pericolonic inflammatory changes. Appendix is not seen but there are no features that would suggest appendicitis. Vasculature and Lymph nodes: Normal caliber aorta. No abdominal or pelvic lymphadenopathy. Musculoskeletal: No concerning osseous lesion. Interspinous spacer devices are present at L4-L5 and L5-S1. IMPRESSION: 1. Recent surgical changes in the midline abdomen at the level of the umbilicus. There is a loop of small bowel extending to the repair site in the anterior abdomen which has appearance of a partially obstructed bowel loop at the hernia repair rather than diverting ostomy. The proximal small bowel loops are moderately dilated indicative of at least partial small bowel obstruction. 2. No free intraperitoneal air or portal venous gas to suggest ischemic bowel. 3. Hepatomegaly with severe hepatic steatosis. Dictated on workstation # [id number] Dict: 10/01/19 1712 Trans: 10/01/19 1723 [facility] [id number] Interpreted by: NALLELY BARBOSA MD Electronically signed by: Departure Communication (Admissions) Time/Spoke to Admitting Phy: 17:45 Time/Spoke to Consulting Phy: 17:35 Impression Primary Impression: Small bowel obstruction Additional Impression: Abdominal hernia Qualified Codes: K43.0 - Incisional hernia with obstruction, without gangrene Disposition: ADMITTED INPATIENT Condition: Stable Admissions Decision to Admit Reason: Admit from ER (General) Decision to Admit/Date: October 01, 2019 Time/Decision to Admit Time: 17:35 Departure-Patient Inst. Referrals: IRINEO GONSALEZ DO (PCP/Family) Primary Care Physician MAINE WONG MD October 01, 2019 16:24
[2019-10-01 17:08] LABS: BASOPHILS % (AUTO) 0 % (0-10); EOSINOPHILS # (AUTO) 0.1 10^3/uL (0.0-0.3); EOSINOPHILS % (AUTO) 1 % (0-10); HEMATOCRIT 50 % (40-54); HEMOGLOBIN 17.2 G/DL (13.3-17.7); LYMPHOCYTES # (AUTO) 1.6 X 10^3 (1.0-4.0); LYMPHOCYTES % (AUTO) 9 % (12-44); MEAN CORPUSCULAR HEMOGLOBIN 32 PG (25-34); MEAN CORPUSCULAR HGB CONC 35 G/DL (32-36); MEAN CORPUSCULAR VOLUME 93 FL (80-99); MEAN PLATELET VOLUME 12.4 FL (7.4-10.4); MONOCYTES # (AUTO) 1.6 X 10^3 (0.0-1.0); MONOCYTES % (AUTO) 9 % (0-12); NEUTROPHILS # (AUTO) 14.8 X 10^3 (1.8-7.8); NEUTROPHILS % (AUTO) 82 % (42-75); PLATELET COUNT 232 10^3/uL (130-400); RED CELL DISTRIBUTION WIDTH 13.8 % (10.0-14.5); WHITE BLOOD COUNT 18.1 10^3/uL (4.3-11.0)
--- NOTE | 2019-10-01 17:08 | Diagnostic Imaging Report ---
INDICATION: Hernia repair with chest pain and bloating. Comparison made with prior examination from 09/19/2019. FINDINGS: There is cardiomegaly. There is some venous congestion. There is no pleural fusion or pneumothorax. Mediastinum is unremarkable. IMPRESSION: Cardiomegaly and mild central pulmonary venous congestion. Dictated by: Dictated on workstation # [id number]
[2019-10-01 17:16] LABS: ALBUMIN 4.5 GM/DL (3.2-4.5)
[2019-10-01 17:17] LABS: CHLORIDE 92 MMOL/L (98-107); SODIUM 137 MMOL/L (135-145)
[2019-10-01 17:18] LABS: CALCIUM 12.5 MG/DL (8.5-10.1)
[2019-10-01 17:19] LABS: GLUCOSE 254 MG/DL (70-105); TOTAL PROTEIN 8.7 GM/DL (6.4-8.2)
[2019-10-01 17:20] LABS: CARBON DIOXIDE 29 MMOL/L (21-32)
[2019-10-01 17:21] LABS: BILIRUBIN,TOTAL 1.2 MG/DL (0.1-1.0)
[2019-10-01 17:22] LABS: ALKALINE PHOSPHATASE 61 U/L (40-136)
[2019-10-01 17:23] LABS: CREATININE SERUM 2.16 MG/DL (0.60-1.30); GFR ESTIMATED 32
--- NOTE | 2019-10-01 17:23 | Diagnostic Imaging Report ---
PROCEDURE: CT abdomen/pelvis w/o. TECHNIQUE: Unenhanced CT imaging of the abdomen and pelvis was performed. 2-D reformats are created and submitted for interpretation. Automatic exposure controls were utilized to optimize patient dose. INDICATION: Nausea and vomiting. Recent hernia repair. COMPARISON: CTA chest of 05/20/2019. FINDINGS: Evaluation of the abdominal viscera is mildly limited without contrast. Lower chest: There is a small amount of linear atelectasis within the right lung base. Otherwise, visualized aspects of the lower chest are normal. Peritoneum: No free intraperitoneal air or fluid. Liver and biliary system: Hepatomegaly as the liver measures 25 cm in craniocaudal dimension. It has marked diffuse hypodensity indicative of diffuse hepatic steatosis. No focal hepatic lesion. Cholecystectomy. No pathologic biliary duct dilatation. Spleen and Pancreas: Spleen is normal. Unenhanced pancreas is grossly normal. Adrenals: Normal. tract: No renal or ureteral calculi. No obstructive uropathy. Prostate is unremarkable. GI tract: Moderate distention of the stomach with fluid and air. Numerous small bowel loops are dilated up to 5 cm in the midabdomen. There is a transition point to decompressed bowel loops at the level of the umbilical hernia repair site. There is a loop of small bowel at the midline hernia which could represent diverting ostomy. No pericolonic inflammatory changes. Appendix is not seen but there are no features that would suggest appendicitis. Vasculature and Lymph nodes: Normal caliber aorta. No abdominal or pelvic lymphadenopathy. Musculoskeletal: No concerning osseous lesion. Interspinous spacer devices are present at L4-L5 and L5-S1. IMPRESSION: 1. Recent surgical changes in the midline abdomen at the level of the umbilicus. There is a loop of small bowel extending to the repair site in the anterior abdomen which has appearance of a partially obstructed bowel loop at the hernia repair rather than diverting ostomy. The proximal small bowel loops are moderately dilated indicative of at least partial small bowel obstruction. 2. No free intraperitoneal air or portal venous gas to suggest ischemic bowel. 3. Hepatomegaly with severe hepatic steatosis. Dictated by: Dictated on workstation # [id number]
[2019-10-01 17:24] LABS: BUN/CREATININE RATIO 14
[2019-10-01 17:26] LABS: ALANINE AMINOTRANSFERASE 60 U/L (0-55); MAGNESIUM 2.4 MG/DL (1.6-2.4)
[2019-10-01 17:27] LABS: LIPASE 30 U/L (8-78)
[2019-10-01 17:33] LABS: BAND NEUTROPHILS 5 %; BASOPHILS % (MANUAL) 0 %; EOSINOPHILS % (MANUAL) 1 %; LYMPHOCYTES % (MANUAL) 3 %; MONOCYTES % (MANUAL) 9 %; NEUTROPHILS % (MANUAL) 78 %; RBC MORPH NORMAL; REACTIVE LYMPHOCYTES 4 %
[2019-10-01] MEDS ORDERED: HURRICAINE EXT TUBE (BENZOCAINE) ONE (17:54)
--- NOTE | 2019-10-01 18:17 | NUR ---
NG TUBE PLACED IN THE LEFT NOSE. WITHOUT DIFFICULTY. 2300 YELLOW STOMACH CONTENT REMOVED. THE PT STATES THAT HE IS MUCH IMPROVED.
--- NOTE | 2019-10-01 18:20 | Consultation - Surgery ---
History of Present Illness History of Present Illness Patient Consulted On(jonathon/time) 10/01/19 18:14 Time Seen by Provider: 17:57 History of Present Illness Surgery asked to consult regarding PSBO. HPI per ED: Here with report of significant abdominal pain. He has had dry heaves which caused chest pain which is why they indicated chest pain on arrival stated complaint. States really his pain is in the abdomen. He does have chest discomfort after dry heaving. He does have history of stents and chest problems are still a concern for him. He is on blood thinners and aspirin restarted those this morning. He had abdominal hernia repair 09/29/19 and was discharged home. Tolerated procedure okay. Doing okay yesterday. He has not had bowel movement. He has been unable to eat and drink. Now he reports that his abdomen is quite distended and painful and he has not had bowel movement today. Not passing gas. Overall states he is in quite a bit of discomfort. Denies fever or chills. Timing/Duration: 1-3 Hours Severity/Quality: Moderate, Severe Location: Generalized Abdomen Radiation: Chest Activities at Onset: None Modifying Factors: Worsens With Eating, Worsens With Movement, Worsens With Palpation Associated Symptoms: No Back Pain; Chest Pain; No Fever/Chills; Nausea/Vomiting; No Shortness of Air; Swelling/Mass in Abdomen; No Weakness When I spoke to pt he complained of severe abdominal pain, getting worse and t hat is why he came into ER. Allergies and Home Medications Allergies Coded Allergies: No Known Drug Allergies (Unverified , 09/26/19) Home Medications Albuterol Sulfate 1 Puff Puff, 2 PUFF IH Q4H PRN for SHORTNESS OF BREATH, (Reported) Allopurinol 300 Mg Tablet, 300 MG PO DAILY, (Reported) Ascorbic Acid 500 Mg Tablet, 1,000 MG PO BID, (Reported) Aspirin 81 Mg Tablet.dr, 81 MG PO DAILY, (Reported) Baclofen 10 Mg Tablet, 10 MG PO TID PRN for SPASMS, (Reported) Carvedilol 3.125 Mg Tablet, 3.125 MG PO BID, (Reported) Cholecalciferol (Vitamin D3) 1,250 Mcg Capsule, 1,250 MCG PO DAILY, (Reported) Enoxaparin Sodium 40 Mg/0.4 Ml Syringe, 40 MG SQ BID, (Reported) Evolocumab 140 Mg/1 Ml Pen.injctr, 140 MG EVERY 2 WEEKS, (Reported) Fenofibrate,Micronized 134 Mg Capsule, 134 MG PO HS, (Reported) Fluticasone/Salmeterol 1 Each Blst.w.dev, 1 EACH IH BID, (Reported) Furosemide 40 Mg Tablet, 40 MG PO DAILY, (Reported) Gabapentin 300 Mg Capsule, 1,500 MG PO HS, (Reported) TAKES 5 (300MG) CAPSULES Gabapentin 300 Mg Capsule, 300 MG PO DAILY, (Reported) Hydrocodone/Acetaminophen 1 Each Tablet, 1 EACH PO Q4H PRN for PAIN-MODERATE (5- 7), (Reported) Hydrocodone/Acetaminophen 1 Each Tablet, 1-2 TAB PO Q4H Prescribed by: PHIL CLAY on 09/29/19 0837 Insulin Regular, Human 500 Unit/1 Ml Insuln.pen, 120 UNITS SC BID WITH MEALS, (Reported) Insulin Regular, Human 500 Unit/1 Ml Insuln.pen, 115 UNIT SQ 1200 W/ LUNCH, (Reported) Isosorbide Mononitrate 30 Mg Tab.er.24h, 30 MG PO DAILY, (Reported) Lisinopril 10 Mg Tablet, 10 MG PO DAILY, (Reported) Magnesium Oxide 400 Mg Tablet, 400 MG PO BIDPC, (Reported) Montelukast Sodium 10 Mg Tablet, 10 MG PO HS, (Reported) Nitroglycerin 0.4 Mg Tab.subl, 0.4 MG SL UD PRN for CHEST PAIN, (Reported) Calvin-3 Acid Ethyl Esters 1 Gm Capsule, 1 GM PO BID, (Reported) Pantoprazole Sodium 40 Mg Tablet.dr, 40 MG PO DAILY, (Reported) LAST FILLED 06-13-2019 #60/60 DAYS SUPPLY Pediatric Multivit Comb No.136 1 Each Tab.chew, 2 TAB.CHEW PO DAILY, (Reported) Pitavastatin Calcium 4 Mg Tablet, 4 MG PO HS, (Reported) Prasugrel HCl 10 Mg Tablet, 10 MG PO DAILY, (Reported) Promethazine HCl 25 Mg Tablet, 25 MG PO Q6H PRN for NAUSEA/VOMITING, (Reported) Ubidecarenone 100 Mg Capsule, 100 MG PO DAILY, (Reported) TAKES ALONG WITH 200MG CAPSULE FOR A TOTAL DAILY DOSE OF 300MG Ubidecarenone 200 Mg Capsule, 200 MG PO DAILY, (Reported) TAKEA ALONG WITH 100MG CAPSULE FOR A TOTAL DAILY DOSE OF 300MG Patient Home Medication List Home Medication List Reviewed: Yes Past Utaorlc-Tgydfx-Ikpqwu Hx Patient Social History Alcohol Use: Occasionally Uses Recreational Drug Use: No Type Used: Smokeless Tobacco 2nd Hand Smoke Exposure: No Recent Foreign Travel: No Contact w/Someone Who Travel: No Recent Infectious Disease Expo: No Recent Hopitalizations: Yes (09/11 CHEST PAIN) Immunizations Up To Date Tetanus Booster (TDap): Unknown PED Vaccines UTD: No Date of Pneumonia Vaccine: Mar 01, 2018 Date of Influenza Vaccine: Feb 28, 2019 Seasonal Allergies Seasonal Allergies: Yes Surgeries History of Surgeries: Yes (SEE BELOW) Surgeries: Abdominal, Adenoidectomy, Appendectomy, Cardiac, Coronary Stent, Gallbladder, Orthopedic, Tonsillectomy Respiratory History of Respiratory Disorde: Yes Respiratory Disorders: Pneumonia, Sleep Apnea, COPD Cardiovascular History of Cardiac Disorders: Yes (NSTEMI 03/2019; STENTS X 4) Cardiac Disorders: Chronic Edema/Swelling, Coronary Artery Disease, Heart Attack, High Cholesterol, Hypertension Neurological History of Neurological Disord: Yes Neurological Disorders: Headaches /Migraines, Neuropathy Reproductive System Hx Reproductive Disorders: No Sexually Transmitted Disease: No HIV/AIDS: No Genitourinary History of Genitourinary Disor: Yes (CHRONIC RENAL INSUFFICIENCY) Genitourinary Disorders: Kidney Stones, Renal Failure Gastrointestinal History of Gastrointestinal Di: Yes (SURGERY FOR BOWEL OBSTRUCTIONS/ADHESIONS;CHERYL FUNDOPLICATION;PENELOPE) Gastrointestinal Disorders: Gastroesophageal Reflux, Obstructive Bowel, Hiatal Hernia, Gall Bladder Disease Musculoskeletal History of Musculoskeletal Dis: Yes (MUJLTIPLE BACK SURGERIES; KNEE SURGERY; RIGHT ARM SURGERY) Musculoskeletal Disorders: Degenerate Disk Disease, Arthritis, Fibromyalgia, Back Injury, Chronic Back Pain, Fractures, Gout Endocrine History of Endocrine Disorders: Yes Endocrine Disorders: Diabetes, Insulin dep HEENT History of HEENT Disorders: No HEENT Disorders: Tonsilitis Loss of Vision: Bilateral Hearing Impairment: Denies Cancer History of Cancer: No Psychosocial History of Psychiatric Problem: Yes Behavioral Health Disorders: Anxiety, Depression Integumentary History of Skin or Integumenta: No Blood Transfusions History of Blood Disorders: No Adverse Reaction to a Blood Tr: No (N/A) Family Medical History Significant Family History: Cancer, Diabetes, Hypertension, Stroke Family Medial History: Abdominal aortic aneurysm 09 BROTHER Cancer 03 MOTHER Cancer of colon 03 MOTHER 09 SISTER 19 MOTHER FH: COPD (chronic obstructive pulmonary disease) 19 FATHER FH: leukemia 09 SISTER 19 MOTHER FHx: stroke 19 FATHER Family history: Diabetes mellitus 09 BROTHER 09 SISTER 09 SISTER 09 SISTER Family history: Gastrointestinal disease 03 MOTHER 09 BROTHER Review of Systems-General Constitutional: No fever; malaise, weakness EENTM: No blurred vision, No double vision, No mouth pain, No mouth swelling, No epistaxis Respiratory: No cough; dyspnea on exertion, short of breath Cardiovascular: No chest pain, No edema, No palpitations Gastrointestinal: abdominal pain; No jaundice; nausea, vomiting Genitourinary: No dysuria, No frequency, No hematuria Musculoskeletal: joint pain, joint swelling, muscle stiffness Skin: No change in color, No change in hair/nails Psychiatric/Neurological: Anxiety, Depressed; Denies Tremors Other HEMATOLOGIC- pt is on Eliquis and states he bruises and bleeds easily Physical Exam-General Problems Physical Exam Vital Signs Vital Signs - First Documented 10/01/19 16:44 Temp 36.1 Pulse 124 Resp 18 B/P (MAP) 127/97 (107) Capillary Refill : Less Than 3 Seconds General Appearance: moderate distress, obese (morbidly) Eyes: Bilateral Eye PERRL, Bilateral Eye EOMI HEENT: No scleral icterus (R), No scleral icterus (L); other (mucous membranes slightly dry) Neck: non-tender, supple, limited range of motion Respiratory: lungs clear, no respiratory distress, no accessory muscle use, other (can't take deep breath because of abdomen) Cardiovascular: no murmur, tachycardia Gastrointestinal: distended, guarding, tenderness (diffusely), hernia (incisional/umbilical), other (incision is clean and intact) Back: no CVA tenderness, no vertebral tenderness Extremities: no pedal edema, no calf tenderness, normal capillary refill Neurologic/Psychiatric: load dispatcher local II-XII nml as tested, no motor/sensory deficits, alert, normal mood/affect, oriented x 3 Skin: normal color, warm/dry Lymphatic: no adenopathy (neck, axilla or groin) Data Review Labs Laboratory Tests 10/01/19 16:20: White Blood Count 18.1H, Red Blood Count 5.33, Hemoglobin 17.2, Hematocrit 50, Mean Corpuscular Volume 93, Mean Corpuscular Hemoglobin 32, Mean Corpuscular Hemoglobin Concent 35, Red Cell Distribution Width 13.8, Platelet Count 232, Mean Platelet Volume 12.4H, Neutrophils (%) (Auto) 82H, Lymphocytes (%) (Auto) 9L, Monocytes (%) (Auto) 9, Eosinophils (%) (Auto) 1, Basophils (%) (Auto) 0, Neutrophils # (Auto) 14.8H, Lymphocytes # (Auto) 1.6, Monocytes # (Auto) 1.6H, Eosinophils # (Auto) 0.1, Basophils # (Auto) 0.0, Neutrophils % (Manual) 78, Lymphocytes % (Manual) 3, Monocytes % (Manual) 9, Eosinophils % (Manual) 1, Basophils % (Manual) 0, Band Neutrophils 5, Reactive Lymphocytes 4, Blood Morphology Comment NORMAL, Sodium Level 137, Potassium Level 5.0, Chloride Level 92L, Carbon Dioxide Level 29, Anion Gap 16H, Blood Urea Nitrogen 31H, Creatinine 2.16H, Estimat Glomerular Filtration Rate 32, BUN/Creatinine Ratio 14, Glucose Level 254H, Calcium Level 12.5H, Corrected Calcium 12.1H, Magnesium Level 2.4, Total Bilirubin 1.2H, Aspartate Amino Transf (AST/SGOT) 58H, Alanine Aminotransferase (ALT/SGPT) 60H, Alkaline Phosphatase 61, Myoglobin 116.8H, Troponin I < 0.028, Total Protein 8.7H, Albumin 4.5, Lipase 30 10/01/19 17:04: Prothrombin Time 14.0, INR Comment 1.0, Activated Partial Thromboplast Time 28 Radiology Date of Exam:10/01/19 CT ABDOMEN/PELVIS WO PROCEDURE: CT abdomen/pelvis w/o. TECHNIQUE: Unenhanced CT imaging of the abdomen and pelvis was performed. 2-D reformats are created and submitted for interpretation. Automatic exposure controls were utilized to optimize patient dose. INDICATION: Nausea and vomiting. Recent hernia repair. COMPARISON: CTA chest of 05/20/2019. FINDINGS: Evaluation of the abdominal viscera is mildly limited without contrast. Lower chest: There is a small amount of linear atelectasis within the right lung base. Otherwise, visualized aspects of the lower chest are normal. Peritoneum: No free intraperitoneal air or fluid. Liver and biliary system: Hepatomegaly as the liver measures 25 cm in craniocaudal dimension. It has marked diffuse hypodensity indicative of diffuse hepatic steatosis. No focal hepatic lesion. Cholecystectomy. No pathologic biliary duct dilatation. Spleen and Pancreas: Spleen is normal. Unenhanced pancreas is grossly normal. Adrenals: Normal. tract: No renal or ureteral calculi. No obstructive uropathy. Prostate is unremarkable. GI tract: Moderate distention of the stomach with fluid and air. Numerous small bowel loops are dilated up to 5 cm in the midabdomen. There is a transition point to decompressed bowel loops at the level of the umbilical hernia repair site. There is a loop of small bowel at the midline hernia which could represent diverting ostomy. No pericolonic inflammatory changes. Appendix is not seen but there are no features that would suggest appendicitis. Vasculature and Lymph nodes: Normal caliber aorta. No abdominal or pelvic lymphadenopathy. Musculoskeletal: No concerning osseous lesion. Interspinous spacer devices are present at L4-L5 and L5-S1. IMPRESSION: 1. Recent surgical changes in the midline abdomen at the level of the umbilicus. There is a loop of small bowel extending to the repair site in the anterior abdomen which has appearance of a partially obstructed bowel loop at the hernia repair rather than diverting ostomy. The proximal small bowel loops are moderately dilated indicative of at least partial small bowel obstruction. 2. No free intraperitoneal air or portal venous gas to suggest ischemic bowel. 3. Hepatomegaly with severe hepatic steatosis. Dictated on workstation # [id number] Dict: 10/01/19 1712 Trans: 10/01/19 1723 [facility] [id number] Interpreted by: NALLELY BARBOSA MD Assessment/Plan Assessment/Plan Assessment/Plan PSBO vs Ileus DM HTN Obstipation Pt had NGT placed and 2300ml of fluid drained; with immediate relief of abdominal pain. I think this is more of an Ileus; but, the CT appears to show failure of recent umbilical hernia repair. Therefore, will have to watch to make sure the bowel that appears stuck in the hernia defect does not become compromised. He will be started on meds to control HTN and Insulin for his DM. Repeat labs in am, IV fluids, pain control, and NPO. RACHEL CONDE DO October 01, 2019 18:20
--- NOTE | 2019-10-01 18:49 | NUR ---
REPORT GIVEN TO DARVIN VELARDE.
--- NOTE | 2019-10-01 19:00 | NUR ---
LUCI MCMULLEN admitted to room 404-1, with an admitting diagnosis of Small Bowel Obstruction and Hyperglycemia , on 10/01/19 from ED via wheelchair, accompanied by staff.LUCI MCMULLEN introduced to surroundings, call light, bed controls, phone, TV, temperature control, lights, meal times, smoking policy, visitor policy, side rail policy, bathrooms and showers. Patient Rights given to patient in the handbook. LUCI MCMULLEN verbalizes understanding that [facility] is not responsible for the loss or damage to any personal effects or valuables that are kept in the patients posession during their hospitalization. LUCI MCMULLEN verbalizes understanding of Interdisciplinary Patient Education. Patient and/or family were informed about the Rapid Response Team and its purpose.
[2019-10-01 19:02] VITALS: BP 108/79
[2019-10-01 19:17] VITALS: BP 108/79
[2019-10-01 20:00] VITALS: BP 108/79
[2019-10-01] MEDS ORDERED: fentaNYL INJECTION 100 MCG/2 ML AMP IV PRN (20:15)
[2019-10-01] MEDS ORDERED: ONDANSETRON 4 MG/2 ML (SDV) Z0FRAN IV PRN (20:15)
[2019-10-01] MEDS ORDERED: CHLORASEPTIC SPRAY 177 ML LIQUID MC PRN (20:30)
[2019-10-01] MEDS: LACTATED RINGERS 1,000 ML IV SCH (20:38)
[2019-10-01] MEDS ORDERED: NS IV 500 ML 500 ML IV ONE (20:50)
[2019-10-01] MEDS ORDERED: inSUlin ASPART (NovoLOG) 1 UNIT/0.01 ML (CHARGE PER UNIT) SC SCH (21:00)
[2019-10-01 21:06] VITALS: BP 108/79
[2019-10-01] MEDS ORDERED: ENOXAPARIN 40 MG/0.4 ML (LOVENOX) SYR ONE (23:08)
[2019-10-01 23:36] VITALS: BP 97/66
[2019-10-01] MEDS ORDERED: PIPERACILLIN/TAZO 4.5 GM/NS 100 ML IV ONE ×2 (23:45)
[2019-10-02] MEDS ORDERED: NS (IVPB) 100 ML ONE ×2 (00:11→05:53)
[2019-10-02] MEDS ORDERED: PIPERACILLIN/TAZO 4.5 GM VIAL (ZOSYN) IV ONE ×2 (00:11→05:53)
[2019-10-02] MEDS: inSUlin ASPART (NovoLOG) 1 UNIT/0.01 ML (CHARGE PER UNIT) SC SCH ×3 (00:42→11:40)
[2019-10-02 01:46] VITALS: BP 97/66
--- NOTE | 2019-10-02 03:00 | NUR ---
2016 - Notified Dr. Moreno that pt HR = 124; BP = 108/79 mmhg, pt also requested throat spray. Received orders for Telemetry, EKG, throat spray, bolus 500 NS, return to LR at 125 after bolus and monitor pt. 2229 - pt requested that his Lovenox be restarted. Notified Dr. Moreno, received order for Lovenox to be restarted tonight. Updated Dr. Moreno that pt HR is still at 120 and blood pressure is still low, keep monitoring. 204 - Pt called PCT and this RN because per pt his "NG Tube fell off" while he was sleeping. Pt stated that he is passing gas and no longer has abdominal pain. Notified Dr. Moreno, received orders to leave NG off for now.
[2019-10-02 04:36] LABS: BASOPHILS % (AUTO) 0 % (0-10); EOSINOPHILS # (AUTO) 0.2 10^3/uL (0.0-0.3); EOSINOPHILS % (AUTO) 1 % (0-10); HEMATOCRIT 45 % (40-54); HEMOGLOBIN 14.7 G/DL (13.3-17.7); LYMPHOCYTES # (AUTO) 1.5 X 10^3 (1.0-4.0); LYMPHOCYTES % (AUTO) 10 % (12-44); MEAN CORPUSCULAR HEMOGLOBIN 31 PG (25-34); MEAN CORPUSCULAR HGB CONC 33 G/DL (32-36); MEAN CORPUSCULAR VOLUME 96 FL (80-99); MEAN PLATELET VOLUME 11.8 FL (7.4-10.4); MONOCYTES # (AUTO) 1.6 X 10^3 (0.0-1.0); MONOCYTES % (AUTO) 11 % (0-12); NEUTROPHILS # (AUTO) 12.2 X 10^3 (1.8-7.8); NEUTROPHILS % (AUTO) 79 % (42-75); PLATELET COUNT 181 10^3/uL (130-400); RED CELL DISTRIBUTION WIDTH 13.7 % (10.0-14.5); WHITE BLOOD COUNT 15.5 10^3/uL (4.3-11.0)
[2019-10-02 04:43] VITALS: BP 109/73
[2019-10-02 04:47] LABS: ALBUMIN 3.9 GM/DL (3.2-4.5); POTASSIUM 4.1 MMOL/L (3.6-5.0)
[2019-10-02 04:50] LABS: TOTAL PROTEIN 7.1 GM/DL (6.4-8.2)
[2019-10-02 04:51] LABS: BILIRUBIN,TOTAL 1.3 MG/DL (0.1-1.0)
[2019-10-02 04:53] LABS: CREATININE SERUM 2.45 MG/DL (0.60-1.30)
[2019-10-02] MEDS: LACTATED RINGERS 1,000 ML IV SCH (05:52)
[2019-10-02] MEDS ORDERED: PIPERACILLIN/TAZOBACTAM (BULK) 4.5 GM in NS (IVPB) 100 ML IV SCH (06:45)
[2019-10-02 08:00] VITALS: BP 138/81
[2019-10-02] MEDS ORDERED: ENOXAPARIN 40 MG/0.4 ML (LOVENOX) SYR SQ SCH ×2 (09:00→23:00)
--- NOTE | 2019-10-02 11:41 | History & Physical-Hospitalist ---
History of Present Illness HPI/Chief Complaint Pt is a 53yoCM with a PMH of IDDMII, HTn, CAd s/p stenting, HLD who presented to the ER due to abdominal pain. He recently had an adominal hernia repair on 09/29/[address] Arredondo. Yesterday he developed abdominal pain and nausea and vomiting. He has not had a BM or passed gas since then surgery. CT was done which reveal a loop of small bowel extending to the repair site and partial SBO. NGT was placed and he was admitted for conservative management. 2300mL was removed with NGT placement and overnight he had flatus. NGT fell out shortly after that. He has already had a BM this morning and his pain is resolved. Source: patient Date Seen 10/02/19 Time Seen by a Provider: 11:36 Attending Physician Estrellita Moreno MD PCP Pat Stevens DO Referring Physician Date of Admission October 01, 2019 at 17:55 Home Medications & Allergies Home Medications Reviewed patient Home Medication Reconciliation performed by pharmacy medication reconciliations serology technician and/or nursing. Patients Allergies have been reviewed. Allergies Allergies Coded Allergies No Known Drug Allergies (Unverified09/26/19) Past Vqjjaal-Oyxxjk-Bahfdj Hx Past Med/Social Hx: Reviewed Nursing Past Med/Soc Hx Patient Social History Marrital Status: Alcohol Use: Occasionally Uses Alcohol Beverage of Choice: Beer Recreational Drug Use: No Smoking Status: Never a Smoker Type Used: Smokeless Tobacco 2nd Hand Smoke Exposure: No Recent Foreign Travel: No Contact w/other who traveled: No Recent Hopitalizations: Yes (09/11 CHEST PAIN) Recent Infectious Disease Expo: No Immunizations Up To Date Tetanus Booster (TDap): Unknown Pediatric: No Date of Pneumonia Vaccine: Mar 21, 2018 Date of Influenza Vaccine: Feb 28, 2019 Seasonal Allergies Seasonal Allergies: Yes Past Medical History Surgeries: Abdominal, Adenoidectomy, Appendectomy, Cardiac, Coronary Stent, Gallbladder, Orthopedic, Tonsillectomy 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), 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, Sleep Apnea Currently Using CPAP: No Currently Using BIPAP: No Cardiac: Chronic Edema/Swelling, Coronary Artery Disease, Heart Attack, High Cholesterol, Hypertension Neurological: Headaches /Migraines, Neuropathy Reproductive: No Sexually Transmitted Disease: No HIV/AIDS: No Genitourinary: Kidney Stones, Renal Failure Gastrointestinal: Gastroesophageal Reflux, Obstructive Bowel, Hiatal Hernia, Gall Bladder Disease Musculoskeletal: Degenerate Disk Disease, Arthritis, Fibromyalgia, Back Injury, Chronic Back Pain, Fractures, Gout Endocrine: Diabetes, Insulin dep HEENT: Tonsilitis Loss of Vision: Bilateral Hearing Impairment: Denies Psychosocial: Anxiety, Depression History of Blood Disorders: No Adverse Reaction to Blood Chen: No (N/A) Family History Reviewed Nursing Family Hx Abdominal aortic aneurysm 09 BROTHER Cancer 03 MOTHER Cancer of colon 03 MOTHER 09 SISTER 19 MOTHER FH: COPD (chronic obstructive pulmonary disease) 19 FATHER FH: leukemia 09 SISTER 19 MOTHER FHx: stroke 19 FATHER Family history: Diabetes mellitus 09 BROTHER 09 SISTER 09 SISTER 09 SISTER Family history: Gastrointestinal disease 03 MOTHER 09 BROTHER Cancer, Diabetes, Hypertension, Stroke PSH: -CARDIAC CATHS--STENTS X 4, PER PT -EGD'S -COLONOSCOPIES/POLYPECTOMY -MULTIPLE BACK [id number] FUSION AND PLATES/RODS; NERVE STIMULATOR-REMOVED -LITHOTRIPSY -LEFT KNEE SCOPE/ACL REPAIR -WISDOM TEETH -TONSILLECTOMY -APPENDECTOMY -CHOLECYSTECTOMY -ABDOMINAL LAPAROTOMY FOR BOWEL OBSTRUCTIONS/LYSIS OF ADHESIONS -VENTRAL HERNIA REPAIR -CHERYL FUNDOPLICATION -BILATERAL CARPAL TUNNEL -RIGHT WRIST FX/ORIF Review of Systems Constitutional: No chills, No fever Respiratory: short of breath Cardiovascular: chest pain (with vomiting) Gastrointestinal: abdominal pain, constipation, nausea, vomiting Genitourinary: no symptoms reported Musculoskeletal: no symptoms reported Skin: no symptoms reported Psychiatric/Neurological: No Symptoms Reported Physical Exam Physical Exam Vital Signs Vital Signs - First Documented 10/01/19 10/01/19 10/01/19 10/01/19 16:44 18:42 19:02 19:30 Temp 36.1 Pulse 124 Resp 18 B/P (MAP) 127/97 (107) Pulse Ox 95 O2 Delivery Room Air O2 Flow Rate 2.00 Capillary Refill : Less Than 3 SecondsLess Than 3 Seconds Height, Weight, BMI Height: 5'11.00" Weight: 260lbs. 8.0oz. 117.785086qm; 38.67 BMI Method:Stated General Appearance: No Apparent Distress, Chronically ill, Obese HEENT: Moist Mucous Membranes; No Scleral Icterus (L), No Scleral Icterus (R) Neck: Normal Inspection, Supple Respiratory: Lungs Clear, No Accessory Muscle Use, No Respiratory Distress Cardiovascular: Regular Rate, Rhythm, No Murmur Gastrointestinal: Normal Bowel Sounds, Non Tender, Soft Extremity: No Calf Tenderness, No Pedal Edema Neurologic/Psychiatric: Alert, Oriented x3, Normal Mood/Affect Skin: Normal Color, Warm/Dry Results Results/Procedures Labs Laboratory Tests 10/01/19 16:20 10/02/19 03:55 Patient resulted labs reviewed. Imaging: Reviewed Imaging Report Imaging Date of Exam:10/01/19 CT ABDOMEN/PELVIS WO PROCEDURE: CT abdomen/pelvis w/o. TECHNIQUE: Unenhanced CT imaging of the abdomen and pelvis was performed. 2-D reformats are created and submitted for interpretation. Automatic exposure controls were utilized to optimize patient dose. INDICATION: Nausea and vomiting. Recent hernia repair. COMPARISON: CTA chest of 05/20/2019. FINDINGS: Evaluation of the abdominal viscera is mildly limited without contrast. Lower chest: There is a small amount of linear atelectasis within the right lung base. Otherwise, visualized aspects of the lower chest are normal. Peritoneum: No free intraperitoneal air or fluid. Liver and biliary system: Hepatomegaly as the liver measures 25 cm in craniocaudal dimension. It has marked diffuse hypodensity indicative of diffuse hepatic steatosis. No focal hepatic lesion. Cholecystectomy. No pathologic biliary duct dilatation. Spleen and Pancreas: Spleen is normal. Unenhanced pancreas is grossly normal. Adrenals: Normal. tract: No renal or ureteral calculi. No obstructive uropathy. Prostate is unremarkable. GI tract: Moderate distention of the stomach with fluid and air. Numerous small bowel loops are dilated up to 5 cm in the midabdomen. There is a transition point to decompressed bowel loops at the level of the umbilical hernia repair site. There is a loop of small bowel at the midline hernia which could represent diverting ostomy. No pericolonic inflammatory changes. Appendix is not seen but there are no features that would suggest appendicitis. Vasculature and Lymph nodes: Normal caliber aorta. No abdominal or pelvic lymphadenopathy. Musculoskeletal: No concerning osseous lesion. Interspinous spacer devices are present at L4-L5 and L5-S1. IMPRESSION: 1. Recent surgical changes in the midline abdomen at the level of the umbilicus. There is a loop of small bowel extending to the repair site in the anterior abdomen which has appearance of a partially obstructed bowel loop at the hernia repair rather than diverting ostomy. The proximal small bowel loops are moderately dilated indicative of at least partial small bowel obstruction. 2. No free intraperitoneal air or portal venous gas to suggest ischemic bowel. 3. Hepatomegaly with severe hepatic steatosis. Assessment/Plan Admission Diagnosis Small Bowel Obstruction Admission Status: Inpatient Order (span 2 midnights) Reason for Inpatient Admission: IV pain control, NGT Assessment and Plan SBO Abdominal Hernia resolved overnight has passed BM and flatus today Advance diet DC IVF If he does well with diet he can likely DC home this evening IDDMII Continue home insulin SSI CKD Creatinine appears to be near his baseline Trend HTN CAD HLD No acute management needs Continue home meds DVT ppx: Lovenox Clinical Quality Measures DVT/VTE Risk/Contraindication: Risk Factor Score Per Nursin RFS Level Per Nursing on Admit: 4+=Very High ESTRELLITA MORENO MD October 02, 2019 11:41
[2019-10-02] MEDS ORDERED: BACLOFEN 10 MG (LIORESAL) TAB PO PRN (11:45)
[2019-10-02] MEDS ORDERED: [UNRECOGNIZED DRUG - OTHER] SQ SCH (11:45)
[2019-10-02] MEDS ORDERED: INSULIN REGULAR HUMAN SQ SCH (11:45)
[2019-10-02] MEDS ORDERED: HYDROcodone/APAP 5 MG/325 MG (LORTAB) TAB PO PRN (11:45)
--- NOTE | 2019-10-02 11:48 | Progress Note - Surgery ---
Subjective Time Seen by a Provider: 11:16 Subjective/Events-last exam Pt seen and examined, states the NGT fell out in the middle of the night but he is doing great. Pt had flatus and 2 BM's, he is tolerating clears. Denies abdominal pain. Review of Systems General: No Chills, No Night Sweats Pulmonary: No Dyspnea, No Cough Cardiovascular: No: Chest Pain, Palpitations Gastrointestinal: No: Nausea, Vomiting, Abdominal Pain Objective Exam Vital Signs Date Time Temp Pulse Resp B/P (MAP) Pulse Ox O2 Delivery O2 Flow Rate FiO2 10/02/19 08:00 36.8 106 18 138/81 (100) 93 Room Air 10/02/19 08:00 93 Room Air 2.00 10/02/19 06:43 108 10/02/19 04:43 36.8 110 18 109/73 (85) 93 Nasal Cannula 2.00 10/02/19 01:46 37.0 120 18 97/66 (76) 91 Nasal Cannula 2.00 10/02/19 01:00 118 10/01/19 23:36 37.0 120 18 97/66 (76) 91 Nasal Cannula 2.00 10/01/19 21:06 36.4 125 20 108/79 (89) 96 Room Air 10/01/19 20:57 118 10/01/19 20:00 36.4 125 20 108/79 (89) 96 Room Air 10/01/19 19:30 94 Nasal Cannula 2.00 10/01/19 19:17 36.4 125 20 108/79 (89) 96 Room Air 10/01/19 19:02 36.4 125 20 108/79 96 Room Air 10/01/19 18:42 36.6 116 18 103/88 95 10/01/19 16:44 36.1 124 18 127/97 (107) I & O 10/02/19 07:00 Intake Total 1620 ml Output Total 2600 ml Balance -980 ml Capillary Refill : Less Than 3 SecondsLess Than 3 Seconds General Appearance: No Apparent Distress, Obese Respiratory: Chest Non Tender, Lungs Clear, Normal Breath Sounds, No Accessory Muscle Use, No Respiratory Distress Cardiovascular: Regular Rate, Rhythm, No Murmur Peripheral Pulses: 2+ Dorsalis Pedis (R), 2+ Left Dors-Pedis (L), 2+ Radial Pulses (R), 2+ Radial Pulses (L) Gastrointestinal: soft, distended (mild), tenderness (diffusely with deep palpation, much better than yesterday), hernia (incisional/umbilical), other (incision is clean and intact) Results Lab Laboratory Tests 10/01/19 16:20: White Blood Count 18.1H, Red Blood Count 5.33, Hemoglobin 17.2, Hematocrit 50, Mean Corpuscular Volume 93, Mean Corpuscular Hemoglobin 32, Mean Corpuscular Hemoglobin Concent 35, Red Cell Distribution Width 13.8, Platelet Count 232, Mean Platelet Volume 12.4H, Neutrophils (%) (Auto) 82H, Lymphocytes (%) (Auto) 9L, Monocytes (%) (Auto) 9, Eosinophils (%) (Auto) 1, Basophils (%) (Auto) 0, Neutrophils # (Auto) 14.8H, Lymphocytes # (Auto) 1.6, Monocytes # (Auto) 1.6H, Eosinophils # (Auto) 0.1, Basophils # (Auto) 0.0, Neutrophils % (Manual) 78, Lymphocytes % (Manual) 3, Monocytes % (Manual) 9, Eosinophils % (Manual) 1, Basophils % (Manual) 0, Band Neutrophils 5, Reactive Lymphocytes 4, Blood Morphology Comment NORMAL, Sodium Level 137, Potassium Level 5.0, Chloride Level 92L, Carbon Dioxide Level 29, Anion Gap 16H, Blood Urea Nitrogen 31H, Creatinine 2.16H, Estimat Glomerular Filtration Rate 32, BUN/Creatinine Ratio 14, Glucose Level 254H, Calcium Level 12.5H, Corrected Calcium 12.1H, Magnesium Level 2.4, Total Bilirubin 1.2H, Aspartate Amino Transf (AST/SGOT) 58H, Alanine Aminot ransferase (ALT/SGPT) 60H, Alkaline Phosphatase 61, Myoglobin 116.8H, Troponin I < 0.028, Total Protein 8.7H, Albumin 4.5, Lipase 30 10/01/19 17:04: Prothrombin Time 14.0, INR Comment 1.0, Activated Partial Thromboplast Time 28 10/01/19 22:00: Glucometer 179H 10/01/19 23:56: Glucometer 248H 10/02/19 03:55: White Blood Count 15.5H, Red Blood Count 4.68, Hemoglobin 14.7, Hematocrit 45, Mean Corpuscular Volume 96, Mean Corpuscular Hemoglobin 31, Mean Corpuscular Hemoglobin Concent 33, Red Cell Distribution Width 13.7, Platelet Count 181, Mean Platelet Volume 11.8H, Neutrophils (%) (Auto) 79H, Lymphocytes (%) (Auto) 10L, Monocytes (%) (Auto) 11, Eosinophils (%) (Auto) 1, Basophils (%) (Auto) 0, Neutrophils # (Auto) 12.2H, Lymphocytes # (Auto) 1.5, Monocytes # (Auto) 1.6H, Eosinophils # (Auto) 0.2, Basophils # (Auto) 0.0, Sodium Level 139, Potassium Level 4.1, Chloride Level 97L, Carbon Dioxide Level 28, Anion Gap 14, Blood Urea Nitrogen 41H, Creatinine 2.45H, Estimat Glomerular Filtration Rate 28, BUN/Creatinine Ratio 17, Glucose Level 187H, Calcium Level 11.0H, Corrected Calcium 11.1H, Total Bilirubin 1.3H, Aspartate Amino Transf (AST/SGOT) 34, Alanine Aminotransferase (ALT/SGPT) 44, Alkaline Phosphatase 59, Total Protein 7.1, Albumin 3.9, Triglycerides Level 315H, Cholesterol Level 75, LDL Cholesterol Direct 17, VLDL Cholesterol 63H, HDL Cholesterol 22L 10/02/19 11:12: Glucometer 248H Assessment/Plan Assessment/Plan Assessment/Plan PSBO vs Ileus - appears to have resolved now DM HTN Obstipation Will increase to soft diet and as long as he tolerates this will send him home. Clinical Quality Measures DVT/VTE Risk/Contraindication: Risk Factor Score Per Nursin RFS Level Per Nursing on Admit: 4+=Very High RACHEL CONDE DO October 02, 2019 11:48
--- NOTE | 2019-10-02 11:50 | Discharge Inst-Surgical ---
Discharge Inst-Surgical Depart Medication/Instructions New, Converted or Re-Newed RX: Other (use home meds) Patient Instructions Follow up Appt: Make appointment this week to see Dr. Arredondo Instructions: No lifting greater than 20 pounds. No strenuous activity. May shower in 24 hours, no tub bath or soaking. Use incentive spirometer at home as directed. No Smoking Skin/Wound Care: May remove bandages in am. You need to leave the Dermabond on incision it will fall off on it's own. Symptoms to Report: Appetite Changes, Extremity Discoloration, Numbness/Tingling, Swelling Increased, Bleeding Excessive, Eyesight Changes, Pain Increased, Urine Color Change, Constipation(Persistent), Fever over 101 degree F, Pain/Pressure in chest, Urinating Difficulty, Cough Up/Vomit Blood, Heart Beat Irreg/Pounding, Pain/Pressure in jaw, Cramps in feet or legs, Lightheadedness, Pain/Pressure in shoulder, Diarrhea(Persistent), Memory Changes Suddenly, Questions/Concerns, Weight gain consecutive days, Dizziness/Fainting, Nausea/Vomiting, Shortness of Breath, Weight gain over 2 pounds If questions or concerns contact your physician Or seek help at emergency department. Activity Activity as Tolerated: Yes Activity Instructions: Avoid Stress to Incision Driving Instructions: You May Drive Diet Discharge Diet: Eat Small Frequent Meals Diet After 24 Hours: Clear Liquid if Nauseous If Any Problems/Questions/Issu: Contact Your Physician, Go to Emergency Room Skin/Wound Care Infection Signs and Symptoms: Increased Redness, Foul Odor of Wound, Increased Drainage, Skin Itchy or Has a Rash, Increased Swelling, Temperature Above 101 F Bathing Instructions: Shower Stitches/Scott/Dermabond Dis: RACHEL Ojeda DO October 02, 2019 11:50
[2019-10-02 12:00] VITALS: BP 124/81
--- NOTE | 2019-10-02 13:44 | NUR ---
Pt tolerating soft lunch without difficulty. Pt wants to walk a few labs and see how he feels before discharging home. Will continue to monitor.
[2019-10-02 15:54] VITALS: BP 119/77
[2019-10-02] MEDS ORDERED: INSULIN REGULAR HUMAN SC SCH (17:00)
[2019-10-02] MEDS ORDERED: [UNRECOGNIZED DRUG - OTHER] SC SCH (17:00)
--- NOTE | 2019-10-02 17:05 | NUR ---
PIV AND TELE REMOVED, DISCHARGE INSTRUCTIONS INCLUDING FOLLOW UP GIVEN, PT VERBALIZED UNDERSTANDING. PT GETTING DRESSING AND WAITING FOR RIDE HOME AT THIS TIME.
[2019-10-02 17:35] VITALS: BP 119/77
--- NOTE | 2019-10-02 17:35 | NUR ---
LUCI MCMULLEN demonstrates understanding of discharge instructions and accurately returns instructions upon questioning. Copy of Post-Discharge Instructions and Medication Discharge Instructions given to . LUCI MCMULLEN is able to manage continuing needs after discharge. Patients belongings returned to PT. Skin dry and intact; no breakdown noted. Patient discharged from 404-1 on at 1735 . LUCI MCMULLEN left floor via WC, accompanied by STAFF.
[2019-10-02] MEDS ORDERED: MAGNESIUM OXIDE (MAG-OX)400 MG TAB PO SCH (18:00)
[2019-10-02] MEDS ORDERED: NON-FORMULARY MEDICATION 1 EA EA (Magnesium Oxide (Magnesium) 400 MG) PO SCH (18:00)
[2019-10-02] MEDS ORDERED: FENOFIBRATE 134 MG (LOFIBRA) CAPSULE PO SCH (21:00)
[2019-10-02] MEDS ORDERED: CARVEDILOL 3.125 MG (COREG) TABLET PO SCH (21:00)
[2019-10-02] MEDS ORDERED: PITAVASTATIN CALCIUM 4 MG PO SCH (21:00)
[2019-10-02] MEDS ORDERED: MONTELUKAST 10 MG (SINGULAIR) TAB PO SCH (21:00)
[2019-10-02] MEDS ORDERED: GABAPENTIN 300 MG (NEURONTIN) CAP PO SCH (21:00)
[2019-10-03] MEDS ORDERED: lisINopril 10 MG (PRINIVIL) TABLET PO SCH (09:00)
[2019-10-03] MEDS ORDERED: ALLOPURINOL 300 MG (ZYLOPRIM) TAB PO SCH (09:00)
[2019-10-03] MEDS ORDERED: PANTOPRAZOLE 40 MG (PROTONIX) TAB PO SCH (09:00)
[2019-10-03] MEDS ORDERED: ASPIRIN E.C. 81 MG (ECOTRIN) TAB PO SCH (09:00)
[2019-10-03] MEDS ORDERED: FUROSEMIDE 40 MG (LASIX) TAB PO SCH (09:00)
[2019-10-03] MEDS ORDERED: PRASUGREL 10 MG (EFFIENT) TABLET PO SCH (09:00)
[2019-10-03] MEDS ORDERED: GABAPENTIN 300 MG (NEURONTIN) CAP PO SCH (09:00)
[2019-10-03] MEDS ORDERED: ISOSORBIDE MONONITRATE 30 MG (IMDUR) TAB PO SCH (09:00)
--- NOTE | 2019-10-04 07:23 | Physician Query Clarification ---
PQ-Link Manifestation-Etiology Admission/Discharge Admission Date: October 01, 2019 at 17:55 Discharge Date: October 02, 2019 at 17:35 The medical record reflects the following clinical scenario: History/Risk Factors: Abdominal hernia surgery 09/28, DM, CAD, HTN w/CKD, COPD, GERd Clinical Findings: 09/30 CT ABD - Recent surgical changes in the midline abdomen at the level of the umbilicus. There is a loop of small bowel extending to the repair site in the anterior abdomen which has appearance of a partially obstructed bowel loop at the hernia repair rather than diverting ostomy. The proximal small bowel loops are moderately dilated indicative of at least partial small bowel obstruction. Treatment: NGT Question: Can you specify if the PSBO is due to/associated with the abdominal hernia surgery? Please document a response in the Progress Note or Discharge Summary. 1. Yes - PSBO is due to/associated with the abdominal hernia surgery. 2. No - PSBO is not due to/associated with the abdominal hernia surgery. 3. Other, with explanation of the clinical findings. 4. Clinically undetermined, no explanation for the clinical findings. PHYSICIAN RESPONSE Manifestation due to/assoic: Yes Please remember a lack of response to the above will prompt a phone page by [facility]/Coding staff. In responding to this query, please exercise your independent professional judgment. The purpose of this communication is to more accurately reflect the complexity of your patients condition. The fact that a question is asked does not imply that any particular answer is desired or expected. Thank you for your timely response to this clarification. Requestors name: Barber THIS PHYSICIAN QUERY FORM IS A PERMANENT PART OF THE MEDICAL RECORD BARBER LUIS October 04, 2019 07:23 RACHEL CONDE DO October 17, 2019 11:49
== END 2019-10-02 17:35 | disposition home or self-care (01) | DRG 390 ==
LOC: EDUNIT# 15:25 → ER 15:26 → 4TH 17:55
PROVIDERS: ADMIT Family Medicine; ATTEND Family Medicine
PROC: 0D9670Z Drainage of Stomach with Drainage Device, Via Natural or Artificial Opening (ICD-10-PCS; principal; 2019-10-01)
DX: K91.31 Postprocedural partial intestinal obstruction (principal); E11.40 Type 2 diabetes mellitus with diabetic neuropathy, unspecified; I25.10 Atherosclerotic heart disease of native coronary artery without angina pectoris; I12.9 Hypertensive chronic kidney disease with stage 1 through stage 4 chronic kidney disease, or unspecified chronic kidney disease; N18.9 Chronic kidney disease, unspecified; J44.9 Chronic obstructive pulmonary disease, unspecified; K21.9 Gastro-esophageal reflux disease without esophagitis; G47.30 Sleep apnea, unspecified; F17.290 Nicotine dependence, other tobacco product, uncomplicated; E78.00 Pure hypercholesterolemia, unspecified; M19.91 Primary osteoarthritis, unspecified site; M79.7 Fibromyalgia; I25.2 Old myocardial infarction; Z79.4 Long term (current) use of insulin; Z87.01 Personal history of pneumonia (recurrent); Z95.5 Presence of coronary angioplasty implant and graft
CPT/HCPCS: 36415; 71045; 74176; 80053; 80061; 82962; 83690; 83735; 83874; 84484; 85007; 85025; 85027; 85610; 85730; 87081; 88302; 93005; 93041; 96374; 96375

== ENCOUNTER 2019-12-29 05:37 | Outpatient (CLI) | payer MEDICARE, OTHER ==
[~2019-12-29] VITALS: Ht 180 cm; Wt 125.0 kg
[~2019-12-29 05:37] MED LIST changes: +HYDR-3812 PO; -HYDR-83 PO
[2019-12-29] MEDS ORDERED: PRAS10TA10 PO (11:51)
[2019-12-29] MEDS ORDERED: GABA300C PO ×2 (11:51)
== END 2019-12-29 12:27 ==
LOC: PREOP 05:37
PROVIDERS: ATTEND Surgery
DX: Z01.818 Encounter for other preprocedural examination (principal); K43.2 Incisional hernia without obstruction or gangrene

== ENCOUNTER → 2020-03-15 | Outpatient (CLI) | payer MEDICARE, OTHER ==
[~2020-03-15] MED LIST changes: +ASPI-1238 PO; -ASPI-983 PO; -HYDR-3812 PO; -PANT40TA3 PO; +PANT40TA52 PO
--- NOTE | 2020-03-15 16:58 | Diagnostic Imaging Report ---
EXAM: LUMBAR SPINE - 2-3 VIEWS INDICATION: Fall. Low back pain. COMPARISON: None. FINDINGS: Grade 1 retrolisthesis of L2 on L3 and there are also mild degenerative endplate changes. Vertebral body heights are preserved. No fractures. Interbody and interspinous devices at L4-S1. Hardware components appear intact. The visualized pelvis is intact. Cholecystectomy clips. IMPRESSION: 1. Interbody and interspinous devices at L4-S1. 2. Grade 1 retrolisthesis and mild degenerative endplate changes at L2-L3. 3. No acute radiographic findings. Dictated by: Dictated on workstation # [id number]
--- NOTE | 2020-03-15 18:05 | Diagnostic Imaging Report ---
EXAMINATION: Right hip radiographs, 2 views. COMPARISON: None. HISTORY: 54-year-old male, right hip pain. Injury. FINDINGS: The right hip is not dislocated. There is no joint space loss of the right hip, osteophyte formation or subchondral cystic change. There is no identified acute fracture. There is spinal hardware at the level of the lower lumbar spine. IMPRESSION: Unremarkable radiographic evaluation at the level of the right hip. Dictated by: Dictated on workstation # [id number]
== END ==
LOC: RAD 16:35
PROVIDERS: ATTEND Internal Medicine
DX: M47.816 Spondylosis without myelopathy or radiculopathy, lumbar region (principal); M25.551 Pain in right hip
CPT/HCPCS: 72100; 73502

== ENCOUNTER → 2020-04-03 | Outpatient (CLI) | payer MEDICARE, OTHER ==
--- NOTE | 2020-04-03 11:40 | Diagnostic Imaging Report ---
PROCEDURE: US Thyroid. TECHNIQUE: Multiple real-time grayscale images were obtained of the thyroid in various projections. INDICATION: Multinodular goiter. COMPARISON: 03/29/2019 and prior's FINDINGS: Examination was suboptimal due to body habitus and motion. The right thyroid lobe measures 4.9 x 1.7 x 2.4 cm. The echotexture is mildly heterogeneous. Vascularity appears normal. Multiple nodules are present: 1. In the superior right thyroid there is a new 0.6 x 0.5 x 0.5 cm cystic nodule, which warrants no further follow-up. 2. In the mid right thyroid, there is a 1.7 x 1.8 x 1.6 cm heterogeneous, partially hypoechoic, circumscribed nodule, which measures smaller in size on today's exam. 3. In the inferior right thyroid, there is a 0.9 x 0.9 x 0.5 cm mildly complex isoechoic nodule with no calcifications. No further follow-up is indicated by TI-RADS criteria. The isthmus does not appear thickened. The left thyroid lobe measures 5.7 x 2.3 x 2.5 cm. Echogenicity is mildly heterogeneous. Vascularity appears normal. Multiple nodules are present: 1. In the superior left thyroid, there is a small nodule measuring 0.4 x 0.3 x 0.5 cm, with macrocalcifications which is stable since the prior exam. 2. In the mid left thyroid, there is a 2.0 x 1.2 x 1.6 cm solid nodule which appears isoechoic with no calcifications. This is overall stable in size compared to the prior study. 3. In the inferior left thyroid, there is a isoechoic nodule which is solid, measuring 1.0 x 0.7 x 0.9 cm which appears to be new compared to the prior study. No calcifications are seen. No further follow-up is indicated by TI-RADS criteria. 4. The previously described hypoechoic nodule in the inferior posterior left thyroid is not measured separately, but does appear stable in size compared to the prior exam, and is seen on the transverse portion of image 55. IMPRESSION: 1. Multiple nodules in the thyroid, as described above. FNA is not recommended at this time. Consider follow-up in one year. Dictated by: Dictated on workstation # [id number]
== END ==
LOC: RAD 10:05
PROVIDERS: ATTEND Otolaryngology Otolaryngology/Facial Plastic Surgery
DX: E04.2 Nontoxic multinodular goiter (principal)
CPT/HCPCS: 76536

== ENCOUNTER → 2020-06-25 | Outpatient (CLI) | payer MEDICARE, OTHER ==
[~2020-06-25] MED LIST changes: -MONT10TA26 PO; +MONT10TA97 PO
[2020-06-25 15:25] LABS: BILIRUBIN,URINE NEGATIVE (NEGATIVE); CLARITY,URINE CLEAR; COLOR,URINE YELLOW; GLUCOSE, URINE (UA) 1+ (NEGATIVE); KETONES,URINE NEGATIVE (NEGATIVE); LEUKOCYTE ESTERASE ,URINE NEGATIVE (NEGATIVE); NITRITE,URINE NEGATIVE (NEGATIVE); PH,URINE 6.5 (5-9); PROTEIN,URINE 1+ (NEGATIVE)
[2020-06-25 15:33] LABS: BACTERIA,URINE NEGATIVE /HPF
--- NOTE | 2020-06-25 16:26 | Diagnostic Imaging Report ---
INDICATION: CALCULUS OF KIDNEY. TECHNIQUE: 2 supine view of the abdomen 3:36 PM CORRELATION STUDY: 03/15/2020 FINDINGS: Visualized lung bases are clear. Stomach is distended with gas. Gas and stool within the colon. No large fecal impaction or evidence for high degree bowel obstruction. Surgical clips in the right upper quadrant as well as in the pelvis. Lumbar spinal interspinous fixation hardware remains in place. IMPRESSION: 1. Nonobstructive appearing bowel gas pattern with mild stool retention. Dictated by: Dictated on workstation # [id number]
== END ==
LOC: RAD 14:59
PROVIDERS: ATTEND Internal Medicine
DX: N20.0 Calculus of kidney (principal); R14.0 Abdominal distension (gaseous)
CPT/HCPCS: 74018; 81000

== ENCOUNTER → 2020-06-26 | Outpatient (CLI) | payer MEDICARE, OTHER | LOC: LABNPT 08:58 | PROVIDERS: ATTEND Otolaryngology Otolaryngology/Facial Plastic Surgery | DX: G47.33 Obstructive sleep apnea (adult) (pediatric) (principal); Z20.822 Contact with and (suspected) exposure to COVID-19 | CPT/HCPCS: 87635 ==

== ENCOUNTER → 2020-06-29 | Outpatient (CLI) | payer MEDICARE, OTHER ==
--- NOTE | 2020-06-29 08:21 | Diagnostic Imaging Report ---
PROCEDURE: CT urinary tract, rule out kidney stone. TECHNIQUE: Multiple contiguous axial images were obtained through the abdomen and pelvis without the use of intravenous contrast. Auto Exposure Controls were utilized during the CT exam to meet ALARA standards for radiation dose reduction. INDICATION: Kidney stone versus urinary tract infection. Correlation is made with prior CT from 10/01/2019. The lung bases are clear. No discrete liver mass is identified. Gallbladder surgically absent. No biliary duct dilatation is seen. The pancreas and spleen are unremarkable. No adrenal mass is identified. Kidneys are without calculi. There is no hydronephrosis. No ureteral or bladder calculi are detected. Aorta is nonaneurysmal. There are postsurgical changes to the anterior abdominal wall from hernia repair. The small and large bowel loops appear to be normal caliber on today's study. No obstruction is seen. There is some diverticulosis of the sigmoid colon but no evidence of acute diverticulitis. Prostate is unremarkable. There is no free fluid or fluid collection. No free air is detected. Postsurgical changes in lower lumbar spine are noted. IMPRESSION: 1. No evidence of urinary tract calculi or obstruction. 2. Uncomplicated diverticulosis of the sigmoid. Dictated by: Dictated on workstation # [id number]
== END ==
LOC: RAD 07:45
PROVIDERS: ATTEND Internal Medicine
DX: K57.30 Diverticulosis of large intestine without perforation or abscess without bleeding (principal); N20.0 Calculus of kidney
CPT/HCPCS: 74176

== ENCOUNTER → 2020-07-11 | Outpatient (CLI) | payer MEDICARE, OTHER ==
[~2020-07-11] VITALS: Ht 180 cm; Wt 131.0 kg
[~2020-07-11] MED LIST changes: -ISOS30TA3 PO; +ISOS30TA82 PO; -LISI-552 PO; +LISI10TA25 PO; +LISI20TA26 PO; +MONT10TA32 PO; -MONT10TA97 PO; -OMEG-105 PO; +OMEG-218 PO; +REGADENOSON 0.4 MG/5 ML SYR (LEXISCAN) IV ONE
[2020-07-11] MEDS: CATHETER FLUSH 10 ML SYR IV PRN ×2 (09:52→10:48)
[2020-07-11 10:47] VITALS: BP 146/96
--- NOTE | 2020-07-11 12:02 | Cardiology Stress Test Report ---
Stress Test Report Date of Procedure/Referring: Date of Procedure: Jul 11, 2020 Shi Mckeon Admitting Physician Pat Stevens DO Indications: Chest pain, coronary artery disease Baseline Heart Rate: 75 Baseline Blood Pressure: Blood Pressure Systolic: 146 Blood Pressure Diastolic: 96 Baseline Vitals Vital Signs Date Time Temp Pulse Resp B/P (MAP) Pulse Ox O2 Delivery O2 Flow Rate FiO2 07/11/20 10:47 109 16 146/96 (113) 97 Room Air Baseline EKG: Baseline EKG: normal sinus rhythm Summary After explaining the procedure to the patient, he signed a consent and then brought to the stress nuclear laboratory. Patient received 0.4 mg Lexiscan for stress test, ECG, heart rate and blood pressure were monitored continuously. Resting and stress dose of radio tracer were injected, imaging was acquired and reviewed in short axis, horizontal long axis and vertical long axis views. TID: 1.01 SSS: 1 SDS: 1 EF: 48 1. Patient tolerated Lexiscan well, had mild shortness of breath and tightness in his chest during injection resolved in recovery 2. Minimal nondiagnostic EKG changes with Lexiscan injection 3. Diaphragmatic attenuation with no significant ischemia or infarction on SPECT images 4. Normal left ventricular size, EF 48 percent ROSS RODRÍGUEZ MD Jul 11, 2020 12:02
== END ==
LOC: CARD 10:00
PROVIDERS: ATTEND Physician Assistant
DX: I25.10 Atherosclerotic heart disease of native coronary artery without angina pectoris (principal); I51.7 Cardiomegaly
CPT/HCPCS: 78452; 93017; 93306; A9502

== ENCOUNTER 2020-07-17 21:28 | Day surgery (SDC) | payer MEDICARE, OTHER ==
[~2020-07-17] VITALS: Ht 180 cm; Wt 134.6 kg
[~2020-07-17 21:28] MED LIST changes: -REGADENOSON 0.4 MG/5 ML SYR (LEXISCAN) IV ONE
[2020-07-17] MEDS ORDERED: morphine INJ 10 MG/ML 1ML (SYR OR VIAL) ONE ×2 (21:33→23:02)
[2020-07-17] MEDS ORDERED: ASPIRIN 81 MG CHEW (CHILDREN'S ASA) ONE (21:34)
--- NOTE | 2020-07-17 21:42 | ED Chest Pain ---
General Stated Complaint: CP Source: patient Exam Limitations: no limitations History of Present Illness Date Seen by Provider: Jul 17, 2020 Time Seen by Provider: 21:25 Initial Comments This is a 54-year-old male who presents to the ER via POV with complaints of midsternal chest pain that started around 0 this evening while he was lying in bed. Describes pain as sharp and radiates into his back and right arm. States he took 3 sublingual nitro tablets 15 minutes apart and this did not relieve his symptoms. States he has a history of HTN, coronary stents, HLD, and diabetes. He was just evaluated by his recruiting specialist Dr. Núñez last week and had a stress test that was unremarkable. Additionally, he reports some nausea and sweating during episode. States pain is the same as when he had his prior NV. Currently rates 7/10 at this time. Denies fevers chills, cough, shortness of breath, abdominal pain. No COVID exposure or COVID symptoms. Last PO intake 1900 this evening. 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: Yes Associated Symptoms: nausea/vomiting Allergies and Home Medications Allergies Coded Allergies: No Known Drug Allergies (Unverified , 12/29/19) Home Medications Albuterol Sulfate 1 Puff Puff, 2 PUFF IH Q4H PRN for SHORTNESS OF BREATH, (Reported) Allopurinol 300 Mg Tablet, 300 MG PO DAILY, (Reported) Ascorbic Acid 500 Mg Tablet, 1,000 MG PO BID, (Reported) Aspirin 81 Mg Tablet.dr, 81 MG PO DAILY, (Reported) Baclofen 10 Mg Tablet, 10 MG PO TID PRN for SPASMS, (Reported) Carvedilol 3.125 Mg Tablet, 3.125 MG PO BID, (Reported) Cholecalciferol (Vitamin D3) 1,250 Mcg Capsule, 1,250 MCG PO DAILY, (Reported) Evolocumab 140 Mg/1 Ml Pen.injctr, 140 MG EVERY 2 WEEKS, (Reported) Fenofibrate,Micronized 134 Mg Capsule, 134 MG PO HS, (Reported) Fluticasone/Salmeterol 1 Each Blst.w.dev, 1 EACH IH BID PRN for SHORTNESS OF BREATH, (Reported) Furosemide 40 Mg Tablet, 40 MG PO DAILY, (Reported) Gabapentin 300 Mg Capsule, 300 MG PO AM, (Reported) Gabapentin 300 Mg Capsule, 1,500 MG PO HS, (Reported) Hydrocodone/Acetaminophen 1 Each Tablet, 1 EACH PO Q4H PRN for PAIN-MODERATE (5- 7), (Reported) Hydrocodone/Acetaminophen 1 Each Tablet, 1-2 TAB PO Q4H Prescribed by: PHIL CLAY on 09/29/19 0837 Insulin Regular, Human 500 Unit/1 Ml Insuln.pen, 160 UNITS SC TIDWM, (Reported) Isosorbide Mononitrate 30 Mg Tab.er.24h, 30 MG PO DAILY, (Reported) Lisinopril 10 Mg Tablet, 10 MG PO DAILY, (Reported) Magnesium Oxide 400 Mg Tablet, 400 MG PO BIDPC, (Reported) Montelukast Sodium 10 Mg Tablet, 10 MG PO HS, (Reported) Nitroglycerin 0.4 Mg Tab.subl, 0.4 MG SL UD PRN for CHEST PAIN, (Reported) [place]-3 Acid Ethyl Esters 1 Gm Capsule, 1 GM PO BID, (Reported) Pantoprazole Sodium 40 Mg Tablet.dr, 40 MG PO DAILY, (Reported) LAST FILLED 06-13-2019 #60/60 DAYS SUPPLY Pediatric Multivit Comb No.136 1 Each Tab.chew, 2 TAB.CHEW PO DAILY, (Reported) Pitavastatin Calcium 4 Mg Tablet, 4 MG PO HS, (Reported) Prasugrel HCl 10 Mg Tablet, 10 MG PO DAILY, (Reported) Prasugrel HCl 10 Mg Tablet, 10 MG PO DAILY, (Reported) Promethazine HCl 25 Mg Tablet, 25 MG PO Q6H PRN for NAUSEA/VOMITING, (Reported) Ubidecarenone 100 Mg Capsule, 100 MG PO DAILY, (Reported) TAKES ALONG WITH 200MG CAPSULE FOR A TOTAL DAILY DOSE OF 300MG Ubidecarenone 200 Mg Capsule, 200 MG PO DAILY, (Reported) TAKEA ALONG WITH 100MG CAPSULE FOR A TOTAL DAILY DOSE OF 300MG Patient Home Medication List Home Medication List Reviewed: Yes Review of Systems Review of Systems Constitutional: diaphoresis; No dizziness EENTM: No Symptoms Reported Respiratory: No Symptoms Reported Cardiovascular: See HPI Gastrointestinal: See HPI Genitourinary: No Symptoms Reported Musculoskeletal: no symptoms reported Skin: no symptoms reported Psychiatric/Neurological: No Symptoms Reported Endocrine: No Symptoms Reported Hematologic/Lymphatic: No Symptoms Reported Past Datvpvs-Rakwcx-Wxqeqd Hx Patient Social History Alcohol Beverage of Choice: Beer Type Used: Smokeless Tobacco 2nd Hand Smoke Exposure: No Recent Hopitalizations: Yes (September-BOWEL BLOCKAGE) Immunizations Up To Date Tetanus Booster (TDap): Unknown PED Vaccines UTD: No Date of Pneumonia Vaccine: Mar 21, 2018 Date of Influenza Vaccine: Feb 28, 2019 Seasonal Allergies Seasonal Allergies: Yes Past Medical History Surgeries: Yes (SEE BELOW) Abdominal, Adenoidectomy, Appendectomy, Cardiac, Coronary Stent, Gallbladder, Orthopedic, Tonsillectomy Respiratory: Yes Pneumonia, Sleep Apnea, COPD Currently Using CPAP: No (DOES NOT USE) Currently Using BIPAP: No Cardiac: Yes (NSTEMI 03/2019; STENTS X 4) Chronic Edema/Swelling, Coronary Artery Disease, Heart Attack, High Cholesterol, Hypertension Neurological: Yes Headaches /Migraines, Neuropathy Reproductive Disorders: No Sexually Transmitted Disease: No HIV/AIDS: No Genitourinary: Yes (CHRONIC RENAL INSUFFICIENCY) Kidney Stones, Renal Failure Gastrointestinal: Yes (SURGERY FOR BOWEL OBSTRUCTIONS/ADHESIONS;CHERYL FUNDOPLICATION;PENELOPE) Gastroesophageal Reflux, Obstructive Bowel, Hiatal Hernia, Gall Bladder Disease Musculoskeletal: Yes (MUJLTIPLE BACK SURGERIES; KNEE SURGERY; RIGHT ARM SURGERY) Degenerate Disk Disease, Arthritis, Fibromyalgia, Back Injury, Chronic Back Pain, Fractures, Gout Endocrine: Yes Diabetes, Insulin dep HEENT: Yes (GLASSES) Tonsilitis Loss of Vision: Denies Hearing Impairment: Denies Cancer: No Psychosocial: Yes Anxiety, Depression Integumentary: No Blood Disorders: No Adverse Reaction/Blood Tranf: No (N/A) Family Medical History Abdominal aortic aneurysm 09 BROTHER Cancer 03 MOTHER Cancer of colon 03 MOTHER 09 SISTER 19 MOTHER FH: COPD (chronic obstructive pulmonary disease) 19 FATHER FH: leukemia 09 SISTER 19 MOTHER FHx: stroke 19 FATHER Family history: Diabetes mellitus 09 BROTHER 09 SISTER 09 SISTER 09 SISTER Family history: Gastrointestinal disease 03 MOTHER 09 BROTHER Cancer, Diabetes, Hypertension, Stroke PSH: -CARDIAC CATHS--STENTS X 4, PER PT -EGD'S -COLONOSCOPIES/POLYPECTOMY -MULTIPLE BACK [id number] FUSION AND PLATES/RODS; NERVE STIMULATOR-REMOVED -LITHOTRIPSY -LEFT KNEE SCOPE/ACL REPAIR -WISDOM TEETH -TONSILLECTOMY -APPENDECTOMY -CHOLECYSTECTOMY -ABDOMINAL LAPAROTOMY FOR BOWEL OBSTRUCTIONS/LYSIS OF ADHESIONS -VENTRAL HERNIA REPAIR -CHERYL FUNDOPLICATION -BILATERAL CARPAL TUNNEL -RIGHT WRIST FX/ORIF Physical Exam Vital Signs Vital Signs - First Documented 07/17/20 21:35 Temp 35.8 Pulse 105 Resp 20 B/P (MAP) 137/88 (104) Pulse Ox 94 O2 Delivery Room Air Capillary Refill : Height, Weight, BMI Height: 5'11.00" Weight: 260lbs. 8.0oz. 117.023162lc; 40.43 BMI Method:Stated General Appearance: No Apparent Distress, WD/WN HEENT: PERRL/EOMI, Normal ENT Inspection, Pharynx Normal, Moist Mucous Membranes Neck: Full Range of Motion, Normal Inspection, Supple; No JVD Respiratory: Lungs Clear, Normal Breath Sounds, No Accessory Muscle Use Cardiovascular: Regular Rate, Rhythm, No Edema, No JVD, No Murmur, Normal Peripheral Pulses; No Friction Rub; Tachycardia Gastrointestinal: Normal Bowel Sounds, Non Tender, Soft; No Distended Extremity: Normal Capillary Refill, Normal Inspection, Normal Range of Motion, Non Tender, No Calf Tenderness, No Pedal Edema Neurologic/Psychiatric: Alert, Oriented x3, No Motor/Sensory Deficits, Normal Mood/Affect Skin: Normal Color, Warm/Dry Progress/Results/Core Measures Results/Orders Lab Results Laboratory Tests Test 07/17/20 21:35 Range/Units White Blood Count 8.3 4.3-11.0 10^3/uL Red Blood Count 4.55 4.30-5.52 10^6/uL Hemoglobin 14.6 13.3-17.7 g/dL Hematocrit 43 40-54 % Mean Corpuscular Volume 94 80-99 fL Mean Corpuscular Hemoglobin 32 25-34 pg Mean Corpuscular Hemoglobin Concent 34 32-36 g/dL Red Cell Distribution Width 12.9 10.0-14.5 % Platelet Count 151 130-400 10^3/uL Mean Platelet Volume 11.6 9.0-12.2 fL Immature Granulocyte % (Auto) 0 % Neutrophils (%) (Auto) 59 42-75 % Lymphocytes (%) (Auto) 22 12-44 % Monocytes (%) (Auto) 13 H 0-12 % Eosinophils (%) (Auto) 5 0-10 % Basophils (%) (Auto) 1 0-10 % Neutrophils # (Auto) 4.9 1.8-7.8 10^3/uL Lymphocytes # (Auto) 1.9 1.0-4.0 10^3/uL Monocytes # (Auto) 1.1 H 0.0-1.0 10^3/uL Eosinophils # (Auto) 0.4 H 0.0-0.3 10^3/uL Basophils # (Auto) 0.1 0.0-0.1 10^3/uL Immature Granulocyte # (Auto) 0.0 0.0-0.1 10^3/uL Prothrombin Time 14.2 12.2-14.7 SEC INR Comment 1.1 0.8-1.4 Activated Partial Thromboplast Time 31 24-35 SEC Sodium Level 139 135-145 MMOL/L Potassium Level 3.9 3.6-5.0 MMOL/L Chloride Level 100 98-107 MMOL/L Carbon Dioxide Level 26 21-32 MMOL/L Anion Gap 13 5-14 MMOL/L Blood Urea Nitrogen 31 H 7-18 MG/DL Creatinine 1.67 H 0.60-1.30 MG/DL Estimat Glomerular Filtration Rate 43 BUN/Creatinine Ratio 19 Glucose Level 228 H 70-105 MG/DL Calcium Level 9.3 8.5-10.1 MG/DL Corrected Calcium 9.4 8.5-10.1 MG/DL Magnesium Level 1.7 1.6-2.4 MG/DL Total Bilirubin 0.4 0.1-1.0 MG/DL Aspartate Amino Transf (AST/SGOT) 45 H 5-34 U/L Alanine Aminotransferase (ALT/SGPT) 59 H 0-55 U/L Alkaline Phosphatase 79 40-136 U/L Myoglobin 221.3 H 10.0-92.0 NG/ML Troponin I < 0.028 <0.028 NG/ML Total Protein 7.5 6.4-8.2 GM/DL Albumin 3.9 3.2-4.5 GM/DL My Orders Orders - LIYAH OWENS APRN Aspirin Tablet (Aspirin Tablet) (07/17/20 21:45) Morphine Injection (Morphine Injection (07/17/20 21:45) Aspirin Chewable Tablet (Baby Aspirin Ch (07/17/20 22:00) Nitroglycerin Ointment (Nitrobid Ointme (07/17/20 22:00) Enoxaparin Injection (Lovenox Injection) (07/17/20 22:45) Morphine Injection (Morphine Injection (07/17/20 22:45) Lidocaine 2% Viscous 15 Ml (Xylocaine Vi (07/17/20 22:45) Antacid Suspension (Mylanta Suspension (07/17/20 22:45) Carvedilol Tablet (Coreg Tablet) (07/17/20 22:45) Covid 19 Inhouse Test (07/17/20 22:47) Medications Given in ED Current Medications Medications Dose Ordered Sig/Lamin Route Start Time Stop Time Status Last Admin Dose Admin Aspirin 324 mg ONCE ONCE PO 07/17/20 22:00 07/17/20 22:01 DC 07/17/20 21:52 324 MG Morphine Sulfate 4 mg ONCE ONCE IVP 07/17/20 21:45 07/17/20 22:03 DC 07/17/20 21:46 4 MG Nitroglycerin 1 inch ONCE ONCE TOP 07/17/20 22:00 07/17/20 22:01 DC 07/17/20 22:02 1 INCH Vital Signs/I&O 07/17/20 21:35 Temp 35.8 Pulse 105 Resp 20 B/P (MAP) 137/88 (104) Pulse Ox 94 O2 Delivery Room Air Progress Progress Note : Progress Note Patient examined upon arrival and in no acute distress. EKG shows ST-104, no ST elevation. He did take 3 sublingual nitro tablets prior to arrival which did not improve his symptoms. Will initiate cardiac work-up and place orders for aspirin 324mg and morphine 4 mg IV push for pain. He is currently resting co mfortably and visiting staff at this time. Will monitor. Reported no improvement of symptoms with Morphine. Orders placed for 1 inch nitro paste. 22:20 Reports some improvement of symptoms with Nitropaste. 22:[address] Núñez, will admit for CP r/o NV. Admit to medical services. CXR shows cardiomegaly with atelectasis in left lung base, pending radiology rev iew. Reviewed plan of care with patient and spouse. Both are agreeable with plan. Initial ECG Impression Date: Jul 17, 2020 Initial ECG Impression Time: 21:37 Initial ECG Rate: 2137 Initial ECG Rhythm: S.Tach Initial ECG Intervals: Normal Diagnostic Imaging Diagonstic Imaging: Xray Plain Films/CT/US/NM/MRI: chest Comments Heart size enlarged. Questionable atelectasis left lung base. Reviewed: Reviewed by Me Departure Communication (Admissions) Time/Spoke to Admitting Phy: 22:[address] Gonsalez, accepted patient admission with cardiology consult. Time/Spoke to Consulting Phy: 22:[address] Núñez, recommended admission for chest pain r/o NV, CP protocol, and Lovenox 1mg/kg subcut. Impression Primary Impression: Chest pain Disposition: ADMITTED INPATIENT Condition: Stable Admissions Decision to Admit Reason: Admit from ER (General) Decision to Admit/Date: Jul 17, 2020 Time/Decision to Admit Time: 22:20 Departure-Patient Inst. Referrals: IRINEO GONSALEZ DO (PCP/Family) Primary Care Physician Copy Copies To 1: ROSS NÚÑEZ MD, STORMY D APRN Jul 17, 2020 21:42
[2020-07-17] MEDS ORDERED: morphine INJ 4 MG/ML 1 ML (VIAL/SYRINGE) IVP ONE ×3 (21:45→23:15)
[2020-07-17] MEDS ORDERED: ASPIRIN 325 MG (5 GR) TABLET PO ONE (21:45)
[2020-07-17 21:49] LABS: BASOPHILS # (AUTO) 0.1 10^3/uL (0.0-0.1); BASOPHILS % (AUTO) 1 % (0-10); EOSINOPHILS # (AUTO) 0.4 10^3/uL (0.0-0.3); EOSINOPHILS % (AUTO) 5 % (0-10); HEMATOCRIT 43 % (40-54); HEMOGLOBIN 14.6 g/dL (13.3-17.7); LYMPHOCYTES # (AUTO) 1.9 10^3/uL (1.0-4.0); LYMPHOCYTES % (AUTO) 22 % (12-44); MEAN CORPUSCULAR HEMOGLOBIN 32 pg (25-34); MEAN CORPUSCULAR HGB CONC 34 g/dL (32-36); MEAN CORPUSCULAR VOLUME 94 fL (80-99); MEAN PLATELET VOLUME 11.6 fL (9.0-12.2); MONOCYTES # (AUTO) 1.1 10^3/uL (0.0-1.0); MONOCYTES % (AUTO) 13 % (0-12); NEUTROPHILS # (AUTO) 4.9 10^3/uL (1.8-7.8); NEUTROPHILS % (AUTO) 59 % (42-75); PLATELET COUNT 151 10^3/uL (130-400); WHITE BLOOD COUNT 8.3 10^3/uL (4.3-11.0)
[2020-07-17 21:55] LABS: INR 1.1 (0.8-1.4); PROTHROMBIN TIME PATIENT 14.2 SEC (12.2-14.7)
[2020-07-17] MEDS ORDERED: ASPIRIN 81 MG CHEW (CHILDREN'S ASA) PO ONE (22:00)
[2020-07-17] MEDS ORDERED: NITROGLYCERIN 2% OINT 1 GM UNIT DOSE PACKET TOP ONE (22:00)
[2020-07-17 22:05] LABS: ALBUMIN 3.9 GM/DL (3.2-4.5); POTASSIUM 3.9 MMOL/L (3.6-5.0)
[2020-07-17 22:07] LABS: CALCIUM 9.3 MG/DL (8.5-10.1)
[2020-07-17 22:08] LABS: TOTAL PROTEIN 7.5 GM/DL (6.4-8.2)
[2020-07-17 22:10] LABS: BILIRUBIN,TOTAL 0.4 MG/DL (0.1-1.0)
[2020-07-17 22:11] LABS: CREATININE SERUM 1.67 MG/DL (0.60-1.30)
[2020-07-17 22:14] LABS: MAGNESIUM 1.7 MG/DL (1.6-2.4)
[2020-07-17] MEDS ORDERED: ANTACID SUSP 30 ML UDC (MYLANTA) PO ONE (22:45)
[2020-07-17] MEDS ORDERED: ENOXAPARIN 60 MG/0.6 ML (LOVENOX) SYR SC ONE (22:45)
[2020-07-17] MEDS ORDERED: CARVEDILOL 3.125 MG (COREG) TABLET PO ONE (22:45)
[2020-07-17] MEDS ORDERED: LIDOCAINE 2% VISCOUS 15 ML UDC PO ONE (22:45)
[2020-07-17] MEDS ORDERED: ANTACID SUSP 30 ML UDC (MYLANTA) ONE (22:47)
[2020-07-17] MEDS ORDERED: LIDOCAINE 2% VISCOUS 15 ML UDC ONE (22:47)
[2020-07-17] MEDS ORDERED: ENOXAPARIN 60 MG/0.6 ML (LOVENOX) SYR ONE (22:47)
[2020-07-17] MEDS ORDERED: morphine INJ 10 MG/ML 1ML (SYR OR VIAL) IVP STA (23:18)
[2020-07-17 23:45] VITALS: BP 135/89
[2020-07-17] MEDS ORDERED: CATHETER FLUSH 10 ML SYR IV PRN (23:45)
[2020-07-17] MEDS ORDERED: ACETAMINOPHEN 325 MG TABLET PO PRN (23:45)
[2020-07-18] VITALS (13 sets, daily range): BP systolic 103–149; BP diastolic 81–96
[2020-07-18] MEDS ORDERED: ONDANSETRON 4 MG/2 ML (SDV) Z0FRAN IVP PRN
[2020-07-18] MEDS: morphine INJ 4 MG/ML 1 ML (VIAL/SYRINGE) IV PRN ×2 (00:02→02:54)
[2020-07-18 03:51] LABS: BASOPHILS # (AUTO) 0.1 10^3/uL (0.0-0.1); BASOPHILS % (AUTO) 1 % (0-10); EOSINOPHILS # (AUTO) 0.5 10^3/uL (0.0-0.3); EOSINOPHILS % (AUTO) 6 % (0-10); HEMATOCRIT 45 % (40-54); HEMOGLOBIN 15.2 g/dL (13.3-17.7); LYMPHOCYTES # (AUTO) 2.1 10^3/uL (1.0-4.0); LYMPHOCYTES % (AUTO) 26 % (12-44); MEAN CORPUSCULAR HEMOGLOBIN 32 pg (25-34); MEAN CORPUSCULAR HGB CONC 34 g/dL (32-36); MEAN CORPUSCULAR VOLUME 95 fL (80-99); MONOCYTES % (AUTO) 13 % (0-12); NEUTROPHILS # (AUTO) 4.5 10^3/uL (1.8-7.8); NEUTROPHILS % (AUTO) 55 % (42-75); PLATELET COUNT 175 10^3/uL (130-400); WHITE BLOOD COUNT 8.3 10^3/uL (4.3-11.0)
[2020-07-18] MEDS ORDERED: RT-ALBUTEROL/IPRATROPIUM 3 ML (DUONEB) VIAL INH PRN (04:00)
[2020-07-18 04:03] LABS: CHLORIDE 102 MMOL/L (98-107); POTASSIUM 3.9 MMOL/L (3.6-5.0); SODIUM 141 MMOL/L (135-145)
[2020-07-18 04:04] LABS: CALCIUM 9.3 MG/DL (8.5-10.1)
[2020-07-18 04:05] LABS: GLUCOSE 100 MG/DL (70-105); TOTAL PROTEIN 7.7 GM/DL (6.4-8.2); TRIGLYCERIDES 587 MG/DL (<150); VLDL CHOLESTEROL 117 MG/DL (5-40)
[2020-07-18 04:06] LABS: CARBON DIOXIDE 27 MMOL/L (21-32)
[2020-07-18 04:07] LABS: BILIRUBIN,TOTAL 0.3 MG/DL (0.1-1.0)
[2020-07-18 04:09] LABS: ALKALINE PHOSPHATASE 75 U/L (40-136); CREATININE SERUM 1.52 MG/DL (0.60-1.30); GFR ESTIMATED 48
[2020-07-18 04:10] LABS: BUN/CREATININE RATIO 21; CHOLESTEROL 108 MG/DL (< 200)
[2020-07-18 04:11] LABS: HDL CHOLESTEROL 27 MG/DL (40-60)
[2020-07-18 04:12] LABS: ALANINE AMINOTRANSFERASE 62 U/L (0-55)
[2020-07-18] MEDS: CATHETER FLUSH 10 ML SYR IV SCH ×2 (05:11→13:14)
--- NOTE | 2020-07-18 08:03 | Diagnostic Imaging Report ---
INDICATION: Chest pain. FINDINGS: Portable chest. The lungs are well-aerated and clear. The heart is not enlarged. No pulmonary edema or hilar adenopathy. No pneumothorax or pleural effusion. IMPRESSION: Normal portable chest. No significant change since 01/07/2020. Dictated by: Dictated on workstation # [id number]
[2020-07-18] MEDS ORDERED: ASPIRIN E.C. 81 MG (ECOTRIN) TAB PO SCH (09:00)
[2020-07-18] MEDS ORDERED: ENOXAPARIN 300 MG/3 ML (LOVENOX) MULTI-DOSE VIAL SQ SCH (09:00)
--- NOTE | 2020-07-18 11:06 | Short Stay Summary-Hospitalist ---
History of Present Illness HPI/Chief Complaint CC: Chest pain and known CAD patient HPI: This is a 54yoWM clinic pt of mine with a past medical history of DM, HTN, HLP, and coronary artery disease who presented to the ER with chest pain. Troponins were all negative. He did undergo a cardiac catheterization by Dr. Núñez and everything seemed to be intact and there were no new lesions that needed any intervention. He will be discharged in improved condition after 5pm today. I did restart all of his home medication. Source: patient Exam Limitations: no limitations Date Seen 07/18/20 Time Seen by a Provider: 10:45 Attending Physician Pat Stevens DO PCP Pat Stevens DO Referring Physician Date of Admission Jul 17, 2020 at 22:30 Home Medications & Allergies Home Medications Reviewed patient Home Medication Reconciliation performed by pharmacy medication reconciliations instructor adjunct surgical technician and/or nursing. Patients Allergies have been reviewed. Allergies Allergies Coded Allergies No Known Drug Allergies (Unverified12/29/19) Past Dugzpqu-Wsngdj-Hzmxxr Hx Past Med/Social Hx: Reviewed Nursing Past Med/Soc Hx, Reviewed and Corrections made Patient Social History Marrital Status: Employed/Student: unemployed Alcohol Use: Rarely Uses Alcohol Beverage of Choice: Beer Recreational Drug Use: No Smoking Status: Former Smoker Type Used: Smokeless Tobacco 2nd Hand Smoke Exposure: No Recent Foreign Travel: No Contact w/other who traveled: No Recent Hopitalizations: Yes (September-BOWEL BLOCKAGE) Recent Infectious Disease Expo: No Immunizations Up To Date Tetanus Booster (TDap): Unknown Pediatric: No Date of Pneumonia Vaccine: Mar 21, 2018 Date of Influenza Vaccine: Mar 05, 2020 Seasonal Allergies Seasonal Allergies: Yes Past Medical History Surgeries: Abdominal, Adenoidectomy, Appendectomy, Cardiac, Coronary Stent, Gallbladder, Orthopedic, Tonsillectomy Respiratory: COPD, Pneumonia, Sleep Apnea Currently Using CPAP: No (DOES NOT USE) Currently Using BIPAP: No Cardiac: Chronic Edema/Swelling, Coronary Artery Disease, Heart Attack, High Cholesterol, Hypertension Neurological: Headaches /Migraines, Neuropathy Reproductive: No Sexually Transmitted Disease: No HIV/AIDS: No Genitourinary: Kidney Stones, Renal Failure Gastrointestinal: Gastroesophageal Reflux, Obstructive Bowel, Hiatal Hernia, Gall Bladder Disease Musculoskeletal: Degenerate Disk Disease, Arthritis, Fibromyalgia, Back Injury, Chronic Back Pain, Fractures, Gout Endocrine: Diabetes, Insulin dep HEENT: Tonsilitis Loss of Vision: Denies Hearing Impairment: Denies Psychosocial: Anxiety, Depression History of Blood Disorders: No Adverse Reaction to Blood Chen: No (N/A) Family History Abdominal aortic aneurysm 09 BROTHER Cancer 03 MOTHER Cancer of colon 03 MOTHER 09 SISTER 19 MOTHER FH: COPD (chronic obstructive pulmonary disease) 19 FATHER FH: leukemia 09 SISTER 19 MOTHER FHx: stroke 19 FATHER Family history: Diabetes mellitus 09 BROTHER 09 SISTER 09 SISTER 09 SISTER Family history: Gastrointestinal disease 03 MOTHER 09 BROTHER Cancer, Diabetes, Hypertension, Stroke PSH: -CARDIAC CATHS--STENTS X 4, PER PT -EGD'S -COLONOSCOPIES/POLYPECTOMY -MULTIPLE BACK [id number] FUSION AND PLATES/RODS; NERVE STIMULATOR-REMOVED -LITHOTRIPSY -LEFT KNEE SCOPE/ACL REPAIR -WISDOM TEETH -TONSILLECTOMY -APPENDECTOMY -CHOLECYSTECTOMY -ABDOMINAL LAPAROTOMY FOR BOWEL OBSTRUCTIONS/LYSIS OF ADHESIONS -VENTRAL HERNIA REPAIR -CHERYL FUNDOPLICATION -BILATERAL CARPAL TUNNEL -RIGHT WRIST FX/ORIF Review of Systems Constitutional: see HPI Cardiovascular: chest pain Physical Exam Physical Exam Vital Signs Vital Signs - First Documented 07/17/20 07/18/20 07/18/20 21:35 03:35 13:00 Temp 35.8 Pulse 105 Resp 20 B/P (MAP) 137/88 (104) Pulse Ox 94 O2 Delivery Room Air O2 Flow Rate 2.00 FiO2 21 Capillary Refill : Less Than 3 Seconds Height, Weight, BMI Height: 5'11.00" Weight: 260lbs. 8.0oz. 117.111098la; 41.54 BMI Method:Stated General Appearance: No Apparent Distress, WD/WN HEENT: PERRL/EOMI, Normal ENT Inspection, Pharynx Normal, Moist Mucous Membranes Neck: Full Range of Motion, Normal Inspection, Supple; No JVD Respiratory: Lungs Clear, Normal Breath Sounds, No Accessory Muscle Use Cardiovascular: Regular Rate, Rhythm, No Edema, No JVD, No Murmur, Normal Peripheral Pulses; No Friction Rub; Tachycardia Gastrointestinal: Normal Bowel Sounds, Non Tender, Soft; No Distended Extremity: Normal Capillary Refill, Normal Inspection, Normal Range of Motion, Non Tender, No Calf Tenderness, No Pedal Edema Neurologic/Psychiatric: Alert, Oriented x3, No Motor/Sensory Deficits, Normal Mood/Affect Skin: Normal Color, Warm/Dry Results Results/Procedures Labs Laboratory Tests 07/17/20 21:35 07/18/20 03:15 Patient resulted labs reviewed. Short Stay Diagnosis Discharge Diagnosis-Short Stay Admission Diagnosis Chest pain in known CAD patient suspect ACS Final Discharge Diagnosis Chest pain in known CAD patient r/o ACS with stable cardiac cath DM HTN RIAZ Conclusion Plan DC home Diagnosis/Problems Diagnosis/Problems (1) Chest pain Status: Acute Clinical Quality Measures AMI/AHF: ASA po Prior to arrival: PAT Simmons DO Jul 18, 2020 11:06
--- NOTE | 2020-07-18 11:09 | Consultation-Cardiology ---
HPI-Cardiology Cardiology Consultation Date of Consultation 07/18/20 Date of Admission Time Seen by Provider: 10:45 Indication: Chest pain HPI Patient is a 54 y/o male with history of CAD with stent placement in past, HTN, HLP. Presented to the ER with complaints of chest pain about an hour after eating steak and potatoes for dinner last night. Reports took Nitro x 2 at home without relief of pain before presenting to the ER. Currently complaining of dull substernal and epigastric pain. Was started on Nitro patch which did not relieve the pain. Denies any associated nausea or dizziness. C/o increased edema to hands in last week. Home Medications & Allergies Allergies: Coded Allergies: No Known Drug Allergies (Unverified , 12/29/19) Home Medication List Reviewed: Yes ION-Lyfosv-Looyha Hx Patient Social History Recreational Drug Use: No Smoking Status: Former Smoker Type Used: Smokeless Tobacco 2nd Hand Smoke Exposure: No Recent Hopitalizations: Yes (September-BOWEL BLOCKAGE) Have you traveled recently?: No Alcohol Use?: No Immunizations Up To Date Tetanus Booster (TDap): Unknown Date of Pneumonia Vaccine: Mar 21, 2018 Date of Influenza Vaccine: Mar 05, 2020 Past Medical History CAD, HTN, HLP Family Medical History Significant Family History: Cancer, Diabetes, Hypertension, Stroke Family History: Abdominal aortic aneurysm 09 BROTHER Cancer 03 MOTHER Cancer of colon 03 MOTHER 09 SISTER 19 MOTHER FH: COPD (chronic obstructive pulmonary disease) 19 FATHER FH: leukemia 09 SISTER 19 MOTHER FHx: stroke 19 FATHER Family history: Diabetes mellitus 09 BROTHER 09 SISTER 09 SISTER 09 SISTER Family history: Gastrointestinal disease 03 MOTHER 09 BROTHER Review of Systems-General Review of Systems Constitutional: see HPI, diaphoresis; No dizziness EENTM: see HPI, no symptoms reported Respiratory: see HPI; No cough, No dyspnea on exertion, No orthopnea, No short of breath Cardiovascular: see HPI, chest pain, edema, Hx of Intervention; No palpitations, No syncope Gastrointestinal: No abdominal pain, No constipation Musculoskeletal: no symptoms reported Skin: no symptoms reported Psychiatric/Neurological: No Symptoms Reported Reviewed Test Results Reviewed Test Results Lab Laboratory Tests 07/17/20 21:35: White Blood Count 8.3, Red Blood Count 4.55, Hemoglobin 14.6, Hematocrit 43, Mean Corpuscular Volume 94, Mean Corpuscular Hemoglobin 32, Mean Corpuscular Hemoglobin Concent 34, Red Cell Distribution Width 12.9, Platelet Count 151, Mean Platelet Volume 11.6, Immature Granulocyte % (Auto) 0, Neutrophils (%) (Auto) 59, Lymphocytes (%) (Auto) 22, Monocytes (%) (Auto) 13H, Eosinophils (%) (Auto) 5, Basophils (%) (Auto) 1, Neutrophils # (Auto) 4.9, Lymphocytes # (Auto) 1.9, Monocytes # (Auto) 1.1H, Eosinophils # (Auto) 0.4H, Basophils # (Auto) 0.1, Immature Granulocyte # (Auto) 0.0, Prothrombin Time 14.2, INR Comment 1.1, Activated Partial Thromboplast Time 31, Sodium Level 139, Potassium Level 3.9, Chloride Level 100, Carbon Dioxide Level 26, Anion Gap 13, Blood Urea Nitrogen 31H, Creatinine 1.67H, Estimat Glomerular Filtration Rate 43, BUN/Creatinine Ratio 19, Glucose Level 228H, Calcium Level 9.3, Corrected Calcium 9.4, Magnesium Level 1.7, Total Bilirubin 0.4, Aspartate Amino Transf (AST/SGOT) 45H, Alanine Aminotransferase (ALT/SGPT) 59H, Alkaline Phosphatase 79, Myoglobin 221.3H, Troponin I < 0.028, B-Type Natriuretic Peptide < 10.0, Total Protein 7.5, Albumin 3.9 07/17/20 21:40: Coronavirus 2019 ([place]) Negative 07/18/20 03:15: White Blood Count 8.3, Red Blood Count 4.72, Hemoglobin 15.2, Hematocrit 45, Areli n Corpuscular Volume 95, Mean Corpuscular Hemoglobin 32, Mean Corpuscular Hemoglobin Concent 34, Red Cell Distribution Width 12.9, Platelet Count 175, Mean Platelet Volume 12.0, Immature Granulocyte % (Auto) 0, Neutrophils (%) (Auto) 55, Lymphocytes (%) (Auto) 26, Monocytes (%) (Auto) 13H, Eosinophils (%) (Auto) 6, Basophils (%) (Auto) 1, Neutrophils # (Auto) 4.5, Lymphocytes # (Auto) 2.1, Monocytes # (Auto) 1.0, Eosinophils # (Auto) 0.5H, Basophils # (Auto) 0.1, Immature Granulocyte # (Auto) 0.0, Sodium Level 141, Potassium Level 3.9, Chloride Level 102, Carbon Dioxide Level 27, Anion Gap 12, Blood Urea Nitrogen 32H, Creatinine 1.52H, Estimat Glomerular Filtration Rate 48, BUN/Creatinine Ratio 21, Glucose Level 100, Calcium Level 9.3, Corrected Calcium 9.3, Total Bilirubin 0.3, Aspartate Amino Transf (AST/SGOT) 49H, Alanine Aminotransferase (ALT/SGPT) 62H, Alkaline Phosphatase 75, Troponin I < 0.028, Total Protein 7.7, Albumin 4.0, Triglycerides Level 587H, Cholesterol Level 108, LDL Cholesterol Direct 32, VLDL Cholesterol 117H, HDL Cholesterol 27L ECG Impression ECG Initial ECG Rhythm: Normal Sinus Physical Exam Physical Exam Vital Signs Vital Signs - First Documented 07/17/20 07/18/20 21:35 03:35 Temp 35.8 Pulse 105 Resp 20 B/P (MAP) 137/88 (104) Pulse Ox 94 O2 Delivery Room Air FiO2 21 Capillary Refill : Less Than 3 Seconds Height, Weight, BMI Height: 5'11.00" Weight: 260lbs. 8.0oz. 117.269126xz; 41.54 BMI Method:Stated General Appearance: No Apparent Distress, WD/WN HEENT: PERRL/EOMI, Normal ENT Inspection, Pharynx Normal, Moist Mucous Membranes Neck: Full Range of Motion, Normal Inspection, Supple; No JVD Respiratory: Lungs Clear, Normal Breath Sounds, No Accessory Muscle Use Cardiovascular: Regular Rate, Rhythm, No Edema, No JVD, No Murmur, Normal Peripheral Pulses; No Friction Rub; Tachycardia Gastrointestinal: Normal Bowel Sounds, Non Tender, Soft; No Distended Extremity: Normal Capillary Refill, Normal Inspection, Normal Range of Motion, Non Tender, No Calf Tenderness, No Pedal Edema Neurologic/Psychiatric: Alert, Oriented x3, No Motor/Sensory Deficits, Normal Mood/Affect Skin: Normal Color, Warm/Dry A/P-Cardiology Admission Diagnosis Chest pain CAD HTN HLP Assessment/Plan Chest pain, nonspecific etiology, history of recurrent chest pain, maintained on isosorbide 30 mg daily as outpatient. Cardiac enzymes negative, no acute ST elevation. Recently underwent stress test last week revealing no ischemia or infarct. Continues to have increasing episodes of chest pain, recommend [facility] for further evaluation Coronary artery disease, patient had non-ST elevation myocardial infarction, underwent cardiac catheterization on April 11, 2019 revealing subtotal occlusion with diffuse ectasia in the distal right coronary artery, complex intervention requiring guide liner and multiple balloons, then deployment of Maday 423 mm stent with excellent results. Proximal RCA has diffuse ectasia with 50 percent stenosis, distal right PDA subtotally occluded, fairly small artery, will be treated medically. Severe stenosis at the distal circumflex artery with long lesion involving the obtuse marginal branch, proper circumflex and AV groove branch, all arteries are less than 2 mm in diameter. 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 Mild to moderate ectasia in LAD with mild to moderate disease diffusely, nonobstructive disease. Underwent cardiac catheterization on May 03, [address] Cartagena with 2.2532 mm Promus drug-eluting stent to the circumflex artery. Underwent repeat cardiac catheterization on May 21, 2019 revealing multivessel CAD with FFR confirmation of [id number] disease in RCA and flow-limiting disease in mid LAD. [id number] in proximal LAD. [id number] Synergy stent to mid LAD. Most recent cardiac catheterization done June 10, 2019 with 2.0x 12mm drug eluting Cristopher stent to first diagonal. Maintained on Effient and aspirin. Hypertension, restart home blood pressure medications and continue to monitor. Hyperlipidemia, monitor lipids Diabetes mellitus, management per primary care physician Chronic renal insufficiency, cannot tolerate metformin. Nonobstructive carotid artery stenosis COPD/obstructive sleep apnea Obesity, BMI is 36 Multiple back surgeries, recent knee surgery, recent umbilical hernia surgery Chronic back pain. Thank you for allowing us to participate in the management of Mr. Negron. This is Shi Godfrey PA-C, as a scribe for Dr. Núñez. Clinical Quality Measures AMI/AHF: ASA po Prior to arrival: No SHI CHRISTINA Jul 18, 2020 11:09
[2020-07-18] MEDS ORDERED: FEXO180T84 PO (11:16)
[2020-07-18] MEDS ORDERED: ZINC50TA58 PO (11:16)
[2020-07-18] MEDS ORDERED: DOCU250C18 PO (11:16)
[2020-07-18] MEDS ORDERED: HYDR-3584 PO (11:16)
[2020-07-18] MEDS ORDERED: OMEG-218 PO (11:16)
[2020-07-18] MEDS ORDERED: HYDR-3817 PO (11:16)
[2020-07-18] MEDS ORDERED: LIDOCAINE 1% INJ 20 ML 20 ML VIAL ONE (11:44)
[2020-07-18] MEDS ORDERED: HEParin (CATH LAB) 2,000 ML IV ONE (11:44)
[2020-07-18] MEDS ORDERED: NS IV 1000 ML 1,000 ML ONE (11:44)
[2020-07-18] MEDS ORDERED: EVOLOCUMAB 140 MG SCH (11:45)
[2020-07-18] MEDS ORDERED: NITROGLYCERIN 0.4 MG SL TABS BTL 25'S SL PRN ×2 (11:45)
[2020-07-18] MEDS ORDERED: HYDROcodone/APAP 7.5 MG/325 MG (LORTAB, LORCET PLUS) TABLET PO PRN (11:45)
[2020-07-18] MEDS ORDERED: BACLOFEN 10 MG (LIORESAL) TAB PO PRN (11:45)
[2020-07-18] MEDS ORDERED: hydrOXYzine (ATARAX) 10 MG TAB PO PRN (11:45)
[2020-07-18] MEDS ORDERED: fentaNYL INJ 100 MCG/2 ML AMP ONE (11:54)
[2020-07-18] MEDS ORDERED: MIDAZOLAM 5 MG/5 ML (VERSED) VIAL ONE (11:54)
[2020-07-18] MEDS ORDERED: [UNRECOGNIZED DRUG - OTHER] SC SCH (12:00)
[2020-07-18] MEDS ORDERED: INSULIN REGULAR HUMAN SC SCH (12:00)
--- NOTE | 2020-07-18 12:33 | Cardiac Procedure Note-CS/ASA ---
Pre-Procedure Note Pre-Op Procedure Note H&P Reviewed The H&P was reviewed, patient examined and no changes noted. Date H&P Reviewed: Jul 18, 2020 Time H&P Reviewed: 12:33 Conscious Sedation Pre-Proced Time 12:33 ASA Score 3 For ASA 3 and 4: Consider anesthesia and medical clearance. Also, for patients with a history of failed moderate sedation consider anesthesia. Airway Lungs Heart ASA score ASA 1: a normal healthy patient ASA 2: a patient with a mild systemic disease (mid diabetes, controlled hypertension, obesity x ASA 3: a patient with a severe systemic disease that limits activity (angina, COPD, prior Myocardial infarction) ASA 4: a patient with an incapacitating disease that is a constant threat to life (CHF, renal failure) ASA 5: a moribund patient not expected to survive 24 hrs. (ruptured aneurysm) ASA 6: a declared brain- patient whose organs are being harvested. For emergent operations, add the letter E after the classification Mallampati Classification Grade 3 Sedation Plan Analgesia, Amnesia, Plan communicated to team members, Discussed options with patient/fam, Discussed risks with patient/fam The patient is an appropriate candidate to undergo the planned procedure, sedation, and anesthesia. The patient immediately re-assessed prior to indication. ROSS RODRÍGUEZ MD Jul 18, 2020 12:33
[2020-07-18] MEDS ORDERED: PATIENT MAY USE OWN MEDS, ALL PO SCH (12:45)
[2020-07-18] MEDS ORDERED: NS IV 1000 ML 1,000 ML IV SCH ×2 (12:45)
--- NOTE | 2020-07-18 12:45 | Discharge Inst-Post CATH ---
Discharge Inst-CATH/EP Problems Reviewed?: Yes Post Cardiac Cath/EP D/C Inst Follow Up/Plan Appointment with Dr. Núñez's office in 4 weeks <b>CARDIAC CATH/EP PROCEDURE DISCHARGE INSTRUCTIONS</b> ACTIVITY * Go Home directly and rest. * Limit activity of the leg (or wrist if it was used) for 7 days including aerobics, swimming, jogging, bicycling, etc. * Restrict stair-climbing for 7 days if possible, if not, climb up with your non-cath leg, then bring together on the same step. * Avoid lifting, pushing, pulling or excessive movement of the affected extremity for 7 days. * Customary sexual activity may be resumed after 2 days-use caution not to use a position that strains or causes pain to the affected extremity. * No driving for 24 hours. * NO SMOKING. * Avoid straining for bowel movements for 7 days. * Gentle walking on level ground is allowed. * Returning to work will depend on the type of procedure and the results. Your doctor will discuss this with you. CALL YOUR DOCTOR FOR ANY OF THE FOLLOWING: *If bleeding from the puncture site occurs- Apply gentle pressure to site with clean cloth and call your doctor or EMS. * If a knot or lump forms under the skin, increases in size, or causes pain. * If bruising appears to be worsening or moving further down your leg instead of disappearing. * Temperature above 101 F. CARE OF YOUR GROIN INCISION; * Bruising or purple discoloration of the skin near the puncture site is common. * You may shower only, no bathtub bathing for 5 days. Be careful to avoid slipping as your leg may feel stiff. * If a closure device was used on your femoral artery, please see the attached guide regarding care of the device and your leg. * Leave dressing on FOR 24 hours. CARE OF YOUR WRIST INCISION; * Bruising or purple discoloration of the skin near the puncture site is common. * You may shower. * DO NOT submerge wrist. * Leave dressing on FOR 24 hours. ROSS NÚÑEZ MD Jul 18, 2020 12:45
--- NOTE | 2020-07-18 12:49 | Cardiac Cath Report ---
Cardiac Cath Report Physician (s)/Pain Coordinator (s) Physician ROSS RODRÍGUEZ MD Pre-Procedure Diagnosis Pre-Procedure Diagnosis: coronary artery disease, unstable angina Post-Procedure Note Procedure Start Date: Jul 18, 2020 Name of Procedure: Left heart catheterization Findings/Procedure Note PROCEDURE NOTE: 54 years old gentleman with history of coronary artery disease, admitted with unstable angina, typical presentation with chest pain, discussed the management plan, recommended cardiac catheterization due to persistent chest pain until this morning. After explaining the procedure to the patient, all pros and cons were explained, all questions were answered. The patient signed the consent and then he was placed on the cardiac catheterization laboratory. Groin was prepped SL fashion local anesthesia was used. Sheath placed in the right femoral artery. [place] right and left catheter were used to access the coronary system. Pigtail was used to access the left ventricular cavity. Left ventriculogram was not done, pressure was measured At the end of the procedure the sheath was removed. Closure device was used FINDINGS: Hemodynamics LV 135/15, end-diastolic pressure 15 Aorta 143/80 mean of 107 ANATOMY: Left Main is free of obstructive disease Left Anterior Descending is slightly tortuous, disease in a small diagonal branch, nonobstructive disease Ramus intermedius is moderate in size, has moderate to severe ostial stenosis, distally there is moderate disease Left Circumflex is moderate in size with small vessel disease in the distal circumflex artery nonobstructive disease Right Coronory Artery has diffuse ectasia, stent is patent the distal right coronary artery, small vessel disease distally LV Gram was not done, pressure was measured CONCLUSION: 1. Moderate to severe ostial ramus intermedius branch that is small to moderate in size. Distal disease, medical therapy is recommended 2. Tortuous LAD with moderate disease in a small diagonal artery that could be responsible for the chest pain 3. Diffuse ectasia in the right coronary artery with patent stent, small vessel disease distally 4. Small vessel disease in the circumflex artery distally 5. Normal left ventricular end-diastolic pressure DISCUSSION AND RECOMMENDATION: Medical therapy is recommended, no intervention is warranted Anesthesia Type: Conscious Sedation Estimated blood loss (mL): 25 ml Contrast Amount: 34 ml Total Radiation Dose: 550 mGy Post-Procedure Diagnosis Post-operative diagnosis: Unstable angina Coronary artery disease Hypertension Hyperlipidemia ROSS RODRÍGUEZ MD Jul 18, 2020 12:49
[2020-07-18] MEDS ORDERED: OMEGA 3 (FISH OIL) 1000 MG CAP PO SCH (18:00)
[2020-07-18] MEDS ORDERED: ASCORBIC ACID (VIT C) 500 MG TABLET PO SCH (18:00)
[2020-07-18] MEDS ORDERED: NON-FORMULARY MEDICATION 1 EA EA (Magnesium Oxide (Magnesium) 400 MG) PO SCH (18:00)
[2020-07-18] MEDS ORDERED: MAGNESIUM OXIDE (MAG-OX)400 MG TAB PO SCH (18:00)
[2020-07-18] MEDS ORDERED: FENOFIBRATE 134 MG (LOFIBRA) CAPSULE PO SCH (21:00)
[2020-07-18] MEDS ORDERED: PITAVASTATIN CALCIUM 4 MG PO SCH (21:00)
[2020-07-18] MEDS ORDERED: GABAPENTIN 300 MG (NEURONTIN) CAP PO SCH (21:00)
[2020-07-18] MEDS ORDERED: DOCUSATE SODIUM 250 MG PO SCH (21:00)
[2020-07-18] MEDS ORDERED: CARVEDILOL 3.125 MG (COREG) TABLET PO SCH (21:00)
[2020-07-18] MEDS ORDERED: OMEGA-3 ACID ETHYL ESTERS 1 GM (LOVAZA) NON-FORMULARY PO SCH (21:00)
[2020-07-18] MEDS ORDERED: PANTOPRAZOLE 40 MG (PROTONIX) TAB PO SCH (21:00)
[2020-07-18] MEDS ORDERED: DOCUSATE SODIUM 100 MG (COLACE) CAP PO SCH (21:00)
[2020-07-18] MEDS ORDERED: MONTELUKAST 10 MG (SINGULAIR) TAB PO SCH (21:00)
[2020-07-19] MEDS ORDERED: MULTIVITAMINS LIQUID 15 ML UDC PO SCH (07:00)
[2020-07-19] MEDS ORDERED: ZINC SULFATE 220 MG CAPSULE PO SCH (08:00)
[2020-07-19] MEDS ORDERED: GABAPENTIN 300 MG (NEURONTIN) CAP PO SCH (09:00)
[2020-07-19] MEDS ORDERED: ASPIRIN E.C. 81 MG (ECOTRIN) TAB PO SCH (09:00)
[2020-07-19] MEDS ORDERED: NON-FORMULARY MEDICATION 1 EA EA (Ubidecarenone (Co Q-10) 100 MG) PO SCH (09:00)
[2020-07-19] MEDS ORDERED: NON-FORMULARY MEDICATION 1 EA EA (Ubidecarenone (Co Q-10) 200 MG) PO SCH (09:00)
[2020-07-19] MEDS ORDERED: FUROSEMIDE 40 MG (LASIX) TAB PO SCH (09:00)
[2020-07-19] MEDS ORDERED: NON-FORMULARY MEDICATION 1 EA EA (Fexofenadine HCl (Allegra Allergy) 180 MG) PO SCH (09:00)
[2020-07-19] MEDS ORDERED: [UNRECOGNIZED DRUG - REMARK] PO SCH (09:00)
[2020-07-19] MEDS ORDERED: ALLOPURINOL 300 MG (ZYLOPRIM) TAB PO SCH (09:00)
[2020-07-19] MEDS ORDERED: LORATADINE (CLARITIN) 10 MG TAB PO SCH (09:00)
[2020-07-19] MEDS ORDERED: ISOSORBIDE MONONITRATE 30 MG (IMDUR) TAB PO SCH (09:00)
[2020-07-19] MEDS ORDERED: lisINopril 10 MG (PRINIVIL) TABLET PO SCH (09:00)
[2020-07-19] MEDS ORDERED: NON-FORMULARY MEDICATION 1 EA EA (Zinc 50 MG) PO SCH (09:00)
[2020-07-19] MEDS ORDERED: PRASUGREL 10 MG (EFFIENT) TABLET PO SCH (09:00)
[2020-07-19] MEDS ORDERED: CHOLECALCIFEROL 1250 MCG PO SCH (09:00)
[2020-07-25] MEDS ORDERED: RT-ALBUTEROL/IPRATROPIUM 3 ML (DUONEB) VIAL ONE (14:11)
== END 2020-07-18 17:25 | disposition home or self-care (01) ==
LOC: EDUNIT# 21:28 → ER 21:29 → UNDOADMOB 22:30 → CSD 22:30 → CATH 23:38 → UNDODISOB 07-18 17:25
PROVIDERS: ATTEND Internal Medicine
DX: I25.110 Atherosclerotic heart disease of native coronary artery with unstable angina pectoris (principal); I12.9 Hypertensive chronic kidney disease with stage 1 through stage 4 chronic kidney disease, or unspecified chronic kidney disease; N18.9 Chronic kidney disease, unspecified; E11.22 Type 2 diabetes mellitus with diabetic chronic kidney disease; E78.5 Hyperlipidemia, unspecified; J44.9 Chronic obstructive pulmonary disease, unspecified; E78.00 Pure hypercholesterolemia, unspecified; G43.909 Migraine, unspecified, not intractable, without status migrainosus; K21.9 Gastro-esophageal reflux disease without esophagitis; G89.29 Other chronic pain; F41.9 Anxiety disorder, unspecified; F32.9 Major depressive disorder, single episode, unspecified; G47.33 Obstructive sleep apnea (adult) (pediatric); E66.9 Obesity, unspecified; Z68.36 Body mass index [BMI] 36.0-36.9, adult; Z79.51 Long term (current) use of inhaled steroids; Z79.82 Long term (current) use of aspirin; Z79.899 Other long term (current) drug therapy; Z79.4 Long term (current) use of insulin; Z87.891 Personal history of nicotine dependence; Z95.5 Presence of coronary angioplasty implant and graft; Z83.3 Family history of diabetes mellitus; Z80.9 Family history of malignant neoplasm, unspecified; Z20.822 Contact with and (suspected) exposure to COVID-19
CPT/HCPCS: 71045; 80053 ×2; 80061; 83735; 83874; 83880; 84484 ×2; 85025 ×2; 85610; 85730; 93005; 93041; 93458; 96372; 96374; 96376; 99284; C1760; C1894; G0378; U0002; 36415; 87635

== ENCOUNTER 2020-07-22 16:21 | Emergency (ER) | payer MEDICARE, OTHER ==
[~2020-07-22] VITALS: Ht 180 cm; Wt 133.0 kg
[~2020-07-22 16:21] MED LIST changes: +DOCU250C18 PO; +FEXO180T84 PO; +HYDR-3584 PO; +HYDR-3817 PO; +ZINC50TA58 PO
[2020-07-22] MEDS ORDERED: NITROGLYCERIN 0.4 MG SL TABS BTL 25'S SL ONE (16:29)
[2020-07-22] MEDS ORDERED: ASPIRIN 81 MG CHEW (CHILDREN'S ASA) ONE (16:29)
[2020-07-22 16:37] LABS: BASOPHILS # (AUTO) 0.1 10^3/uL (0.0-0.1); BASOPHILS % (AUTO) 1 % (0-10); EOSINOPHILS # (AUTO) 0.5 10^3/uL (0.0-0.3); EOSINOPHILS % (AUTO) 5 % (0-10); HEMATOCRIT 45 % (40-54); HEMOGLOBIN 15.2 g/dL (13.3-17.7); LYMPHOCYTES # (AUTO) 1.7 10^3/uL (1.0-4.0); LYMPHOCYTES % (AUTO) 19 % (12-44); MEAN CORPUSCULAR HEMOGLOBIN 32 pg (25-34); MEAN CORPUSCULAR HGB CONC 34 g/dL (32-36); MEAN CORPUSCULAR VOLUME 94 fL (80-99); MEAN PLATELET VOLUME 12.1 fL (9.0-12.2); MONOCYTES % (AUTO) 10 % (0-12); NEUTROPHILS % (AUTO) 65 % (42-75); PLATELET COUNT 152 10^3/uL (130-400); WHITE BLOOD COUNT 9.2 10^3/uL (4.3-11.0)
--- NOTE | 2020-07-22 16:42 | ED Chest Pain ---
General Chief Complaint: Chest Pain Stated Complaint: POST HEART CATH/CP Source: patient Exam Limitations: no limitations History of Present Illness Date Seen by Provider: Jul 22, 2020 Time Seen by Provider: 16:36 Initial Comments 54-year-old gentleman with history of obesity, hyperlipidemia, hypertension, unstable angina presents to ER with chest pain that began about an hour ago. It began after he finished walking on the treadmill for exercise. He was walking at a bit slower than usual and completed about 15 minutes of walking. He was then laying down on the floor watching TV when his chest pain started. The pain is tight in the central chest and seems to radiate through from the mid back. He did have a cardiac catheterization done on 07/17/[address] Kerr showing small vessel disease, patent stent, tortuous LAD with moderate disease in a small diagonal artery. He is compliant with Effient and takes a baby aspirin daily. Currently he rates the pain at 7 out of 10. It radiates down both arms. Timing/Duration: changing over time Severity/Quality: moderate Location: central ASA po CANAL BOAT CAPTAIN: No NTG SL CANAL BOAT CAPTAIN: No Associated Symptoms: back pain; No shortness of breath Allergies and Home Medications Allergies Coded Allergies: No Known Drug Allergies (Unverified , 12/29/19) Home Medications Allopurinol 300 Mg Tablet, 300 MG PO DAILY, (Reported) Ascorbic Acid 500 Mg Tablet, 1,000 MG PO BID, (Reported) Aspirin 81 Mg Tablet.dr, 81 MG PO DAILY, (Reported) Baclofen 10 Mg Tablet, 10 MG PO TID PRN for SPASMS, (Reported) Carvedilol 3.125 Mg Tablet, 3.125 MG PO BID, (Reported) Cholecalciferol (Vitamin D3) 1,250 Mcg Capsule, 1,250 MCG PO DAILY, (Reported) Docusate Sodium 250 Mg Capsule, 250 MG PO HS, (Reported) Evolocumab 140 Mg/1 Ml Pen.injctr, 140 MG EVERY 2 WEEKS, (Reported) Fenofibrate,Micronized 134 Mg Capsule, 134 MG PO HS, (Reported) Fexofenadine HCl 180 Mg Tablet, 180 MG PO DAILY, (Reported) Furosemide 40 Mg Tablet, 40 MG PO DAILY, (Reported) Gabapentin 300 Mg Capsule, 300 MG PO AM, (Reported) Gabapentin 300 Mg Capsule, 1,500 MG PO HS, (Reported) TAKES 5 (300MG) CAPS Hydrocodone/Acetaminophen 1 Each Tablet, 1 EA PO BID PRN for PAIN-MODERATE (5- 7), (Reported) Hydroxyzine HCl 10 Mg Tablet, 10 MG PO Q6H PRN for ANXIETY, (Reported) Insulin Regular, Human 500 Unit/1 Ml Insuln.pen, 240 UNITS SC AC, (Reported) Isosorbide Mononitrate 30 Mg Tab.er.24h, 30 MG PO DAILY, (Reported) Lisinopril 10 Mg Tablet, 10 MG PO DAILY, (Reported) Magnesium Oxide 400 Mg Tablet, 400 MG PO BIDPC, (Reported) Montelukast Sodium 10 Mg Tablet, 10 MG PO HS, (Reported) Nitroglycerin 0.4 Mg Tab.subl, 0.4 MG SL UD PRN for CHEST PAIN, (Reported) [place]-3 Acid Ethyl Esters 1 Gm Capsule, 2 GM PO BID, (Reported) TAKES 2 (1GM) CAPS Pantoprazole Sodium 40 Mg Tablet.dr, 40 MG PO BID, (Reported) Pediatric Multivit Comb No.136 1 Each Tab.chew, 2 TAB.CHEW PO DAILY, (Reported) Pitavastatin Calcium 4 Mg Tablet, 4 MG PO HS, (Reported) Prasugrel HCl 10 Mg Tablet, 10 MG PO DAILY, (Reported) Ubidecarenone 100 Mg Capsule, 100 MG PO DAILY, (Reported) TAKES ALONG WITH 200MG CAPSULE FOR A TOTAL DAILY DOSE OF 300MG Ubidecarenone 200 Mg Capsule, 200 MG PO DAILY, (Reported) TAKEA ALONG WITH 100MG CAPSULE FOR A TOTAL DAILY DOSE OF 300MG Zinc 50 Mg Tablet, 50 MG PO DAILY, (Reported) Patient Home Medication List Home Medication List Reviewed: Yes Review of Systems Review of Systems Constitutional: see HPI EENTM: No Symptoms Reported Respiratory: No Symptoms Reported Cardiovascular: See HPI, Chest Pain Gastrointestinal: No Symptoms Reported Genitourinary: No Symptoms Reported Musculoskeletal: no symptoms reported Skin: no symptoms reported Psychiatric/Neurological: No Symptoms Reported Endocrine: No Symptoms Reported Past Bvvkdei-Iunwnt-Qnukod Hx Patient Social History Alcohol Beverage of Choice: Beer Type Used: Smokeless Tobacco 2nd Hand Smoke Exposure: No Recent Hopitalizations: Yes (September-BOWEL BLOCKAGE) Immunizations Up To Date Tetanus Booster (TDap): Unknown PED Vaccines UTD: No Date of Pneumonia Vaccine: Mar 21, 2018 Date of Influenza Vaccine: Mar 05, 2020 Seasonal Allergies Seasonal Allergies: Yes Past Medical History Surgeries: Yes (SEE BELOW) Abdominal, Adenoidectomy, Appendectomy, Cardiac, Coronary Stent, Gallbladder, Orthopedic, Tonsillectomy Respiratory: Yes Pneumonia, Sleep Apnea, COPD Currently Using CPAP: No (DOES NOT USE) Currently Using BIPAP: No Cardiac: Yes (NSTEMI 03/2019; STENTS X 4) Chronic Edema/Swelling, Coronary Artery Disease, Heart Attack, High Cholesterol, Hypertension Neurological: Yes Headaches /Migraines, Neuropathy Reproductive Disorders: No Sexually Transmitted Disease: No HIV/AIDS: No Genitourinary: Yes (CHRONIC RENAL INSUFFICIENCY) Kidney Stones, Renal Failure Gastrointestinal: Yes (SURGERY FOR BOWEL OBSTRUCTIONS/ADHESIONS;CHERYL FUNDOPLICATION;PENELOPE) Gastroesophageal Reflux, Obstructive Bowel, Hiatal Hernia, Gall Bladder Disease Musculoskeletal: Yes (MUJLTIPLE BACK SURGERIES; KNEE SURGERY; RIGHT ARM SURGERY) Degenerate Disk Disease, Arthritis, Fibromyalgia, Back Injury, Chronic Back Pa in, Fractures, Gout Endocrine: Yes Diabetes, Insulin dep HEENT: Yes (GLASSES) Tonsilitis Loss of Vision: Denies Hearing Impairment: Denies Cancer: No Psychosocial: Yes Anxiety, Depression Integumentary: No Blood Disorders: No Adverse Reaction/Blood Tranf: No (N/A) Family Medical History Abdominal aortic aneurysm 09 BROTHER Cancer 03 MOTHER Cancer of colon 03 MOTHER 09 SISTER 19 MOTHER FH: COPD (chronic obstructive pulmonary disease) 19 FATHER FH: leukemia 09 SISTER 19 MOTHER FHx: stroke 19 FATHER Family history: Diabetes mellitus 09 BROTHER 09 SISTER 09 SISTER 09 SISTER Family history: Gastrointestinal disease 03 MOTHER 09 BROTHER Cancer, Diabetes, Hypertension, Stroke PSH: -CARDIAC CATHS--STENTS X 4, PER PT -EGD'S -COLONOSCOPIES/POLYPECTOMY -MULTIPLE BACK [id number] FUSION AND PLATES/RODS; NERVE STIMULATOR-REMOVED -LITHOTRIPSY -LEFT KNEE SCOPE/ACL REPAIR -WISDOM TEETH -TONSILLECTOMY -APPENDECTOMY -CHOLECYSTECTOMY -ABDOMINAL LAPAROTOMY FOR BOWEL OBSTRUCTIONS/LYSIS OF ADHESIONS -VENTRAL HERNIA REPAIR -CHERYL FUNDOPLICATION -BILATERAL CARPAL TUNNEL -RIGHT WRIST FX/ORIF Physical Exam Vital Signs Vital Signs - First Documented 07/22/20 16:38 Temp 36.8 Pulse 106 Resp 25 B/P (MAP) 131/87 (102) Pulse Ox 95 O2 Delivery Room Air Capillary Refill : Height, Weight, BMI Height: 5'11.00" Weight: 260lbs. 8.0oz. 117.302760em; 41.54 BMI Method:Stated General Appearance: No Apparent Distress, WD/WN, Obese (Alert and oriented very pleasant no EKG shows ventricular bigeminy blood pressure is fine.) Neck: Full Range of Motion, Normal Inspection Respiratory: No Accessory Muscle Use, No Respiratory Distress Cardiovascular: Regular Rate, Rhythm, Normal Peripheral Pulses Gastrointestinal: Normal Bowel Sounds, Non Tender, Soft Extremity: Normal Capillary Refill, Normal Inspection Neurologic/Psychiatric: Alert, Oriented x3 Skin: Normal Color, Warm/Dry Progress/Results/Core Measures Results/Orders Lab Results Laboratory Tests Test 07/22/20 16:30 07/22/20 18:35 Range/Units White Blood Count 9.2 4.3-11.0 10^3/uL Red Blood Count 4.74 4.30-5.52 10^6/uL Hemoglobin 15.2 13.3-17.7 g/dL Hematocrit 45 40-54 % Mean Corpuscular Volume 94 80-99 fL Mean Corpuscular Hemoglobin 32 25-34 pg Mean Corpuscular Hemoglobin Concent 34 32-36 g/dL Red Cell Distribution Width 13.0 10.0-14.5 % Platelet Count 152 130-400 10^3/uL Mean Platelet Volume 12.1 9.0-12.2 fL Immature Granulocyte % (Auto) 0 % Neutrophils (%) (Auto) 65 42-75 % Lymphocytes (%) (Auto) 19 12-44 % Monocytes (%) (Auto) 10 0-12 % Eosinophils (%) (Auto) 5 0-10 % Basophils (%) (Auto) 1 0-10 % Neutrophils # (Auto) 6.0 1.8-7.8 10^3/uL Lymphocytes # (Auto) 1.7 1.0-4.0 10^3/uL Monocytes # (Auto) 1.0 0.0-1.0 10^3/uL Eosinophils # (Auto) 0.5 H 0.0-0.3 10^3/uL Basophils # (Auto) 0.1 0.0-0.1 10^3/uL Immature Granulocyte # (Auto) 0.0 0.0-0.1 10^3/uL Prothrombin Time 14.2 12.2-14.7 SEC INR Comment 1.1 0.8-1.4 Activated Partial Thromboplast Time 29 24-35 SEC Sodium Level 137 135-145 MMOL/L Potassium Level 4.1 3.6-5.0 MMOL/L Chloride Level 101 98-107 MMOL/L Carbon Dioxide Level 25 21-32 MMOL/L Anion Gap 11 5-14 MMOL/L Blood Urea Nitrogen 26 H 7-18 MG/DL Creatinine 1.47 H 0.60-1.30 MG/DL Estimat Glomerular Filtration Rate 50 BUN/Creatinine Ratio 18 Glucose Level 401 *H 70-105 MG/DL Calcium Level 9.3 8.5-10.1 MG/DL Corrected Calcium 9.4 8.5-10.1 MG/DL Magnesium Level 1.7 1.6-2.4 MG/DL Total Bilirubin 0.5 0.1-1.0 MG/DL Aspartate Amino Transf (AST/SGOT) 41 H 5-34 U/L Alanine Aminotransferase (ALT/SGPT) 61 H 0-55 U/L Alkaline Phosphatase 83 40-136 U/L Myoglobin 165.3 H 10.0-92.0 NG/ML Troponin I < 0.028 < 0.028 <0.028 NG/ML Total Protein 7.3 6.4-8.2 GM/DL Albumin 3.9 3.2-4.5 GM/DL My Orders Orders - ALYSSIA PATEL APRN Cbc With Automated Diff (07/22/20 16:33) Magnesium (07/22/20 16:33) Chest 1 View, Ap/Pa Only (07/22/20 16:33) Ekg Tracing (07/22/20 16:33) Comprehensive Metabolic Panel (07/22/20 16:33) Myoglobin Serum (07/22/20 16:33) Protime With Inr (07/22/20 16:33) Partial Thromboplastin Time (07/22/20 16:33) O2 (07/22/20 16:33) Monitor-Rhythm Ecg Trace Only (07/22/20 16:33) Lipid Panel (07/23/20 06:00) Ed Iv/Invasive Line Start (07/22/20 16:33) Troponin I (07/22/20 16:33) Nitroglycerin 0.4 Mg Btl 25's (Nitrostat (07/22/20 16:45) Aspirin Chewable Tablet (Baby Aspirin Ch (07/22/20 16:45) Nitroglycerin 0.4 Mg Btl 25's (Nitrostat (07/22/20 16:29) Aspirin Chewable Tablet (Baby Aspirin Ch (07/22/20 16:29) Morphine Injection (Morphine Injection (07/22/20 17:00) Ct Angio Chest W (07/22/20 16:52) Morphine Injection (Morphine Injection (07/22/20 17:01) Morphine Injection (Morphine Injection (07/22/20 17:06) Ns Iv 1000 Ml (Sodium Chloride 0.9%) (07/22/20 17:15) Insulin (Regular) Human (Novolin R (Per (07/22/20 17:15) Iohexol Injection (Omnipaque 350 Mg/Ml 1 (07/22/20 17:15) Received Contrast (Hold Metformin- Contr (07/22/20 17:15) Ns (Ivpb) (Sodium Chloride 0.9% Ivpb Bag (07/22/20 17:15) Sodium Chloride Flush (Catheter Flush Sy (07/22/20 17:15) Fentanyl Injection (Sublimaze Injection (07/22/20 17:45) Fentanyl Injection (Sublimaze Injection (07/22/20 17:38) Troponin I (07/22/20 18:30) Medications Given in ED Current Medications Medications Dose Ordered Sig/Lamin Route Start Time Stop Time Status Last Admin Dose Admin Aspirin 324 mg ONCE ONCE PO 07/22/20 16:45 07/22/20 16:46 DC 07/22/20 16:36 324 MG Fentanyl Citrate 75 mcg ONCE ONCE IVP 07/22/20 17:45 07/22/20 17:46 DC 07/22/20 17:45 75 MCG Insulin Human Regular 8 unit ONCE ONCE IV 07/22/20 17:15 07/22/20 17:16 DC 07/22/20 17:44 8 UNIT Iohexol 100 ml ONCE ONCE IV 07/22/20 17:15 07/22/20 17:16 UNV 07/22/20 17:20 100 ML Nitroglycerin 0.4 mg UD PRN SL 07/22/20 16:45 07/22/20 16:36 0.4 MG Sodium Chloride 10 ml NEEDED PRN IV 07/22/20 17:15 UNV 07/22/20 17:20 10 ML Sodium Chloride 100 ml ONCE ONCE IV 07/22/20 17:15 07/22/20 17:16 UNV 07/22/20 17:20 80 ML Vital Signs/I&O 07/22/20 07/22/20 16:38 16:38 Temp 36.8 Pulse 106 Resp 25 B/P (MAP) 131/87 (102) Pulse Ox 95 O2 Delivery Room Air Departure Communication (Admissions) 165-chest pain actually got a bit worse after the nitroglycerin. Giving 4 mg of morphine. 1754-the morphine did bring his pain back down to a 5 out of 10. I then gave 75 mcg of fentanyl 8 units of regular insulin IV and 1 L of IV fluids. We will plan for a repeat troponin at the 2-hour cindy and then I will speak with Dr. Núñez. I discussed with him other etiologies for chest pain including aorta, esophageal spasm, pleurisy or pericarditis, thoracic radiculopathy. 1909-pain is "much better. Repeat troponin negative. Spoke with Dr. Núñez, agrees with plan to discharge home return precautions. Impression Primary Impression: Chest pain Disposition: HOME, SELF-CARE Condition: Stable Departure-Patient Inst. Decision time for Depature: 19:14 Referrals: IRINEO GONSALEZ DO (PCP/Family) Primary Care Physician Patient Instructions: Chest Pain, Adult ED Add. Discharge Instructions: 1. Return to ER for any concerns. Follow-up with Dr. Núñez. Continue current medication regimen. All discharge instructions reviewed with patient and/or family Voiced unders tanding. ALYSSIA PATEL APRN Jul 22, 2020 16:41
[2020-07-22] MEDS ORDERED: ASPIRIN 81 MG CHEW (CHILDREN'S ASA) PO ONE (16:45)
[2020-07-22] MEDS ORDERED: NITROGLYCERIN 0.4 MG SL TABS BTL 25'S SL PRN (16:45)
--- NOTE | 2020-07-22 16:47 | Diagnostic Imaging Report ---
Indication: Chest pain. Comparison: 07/17/2020. Discussion: Single portable upright view of the chest was obtained. No adverse interval change. Stable normal heart size. No consolidation, pleural fluid or pneumothorax. No osseous abnormality. Impression: Negative portable chest. Dictated by: Dictated on workstation # [id number]
[2020-07-22 16:52] LABS: ALBUMIN 3.9 GM/DL (3.2-4.5); POTASSIUM 4.1 MMOL/L (3.6-5.0)
[2020-07-22 16:53] LABS: CALCIUM 9.3 MG/DL (8.5-10.1)
[2020-07-22 16:54] LABS: TOTAL PROTEIN 7.3 GM/DL (6.4-8.2)
[2020-07-22 16:55] LABS: INR 1.1 (0.8-1.4); PROTHROMBIN TIME PATIENT 14.2 SEC (12.2-14.7)
[2020-07-22 16:56] LABS: BILIRUBIN,TOTAL 0.5 MG/DL (0.1-1.0)
[2020-07-22 16:58] LABS: CREATININE SERUM 1.47 MG/DL (0.60-1.30)
[2020-07-22] MEDS ORDERED: morphine INJ 4 MG/ML 1 ML (VIAL/SYRINGE) IVP ONE (17:00)
[2020-07-22 17:01] LABS: MAGNESIUM 1.7 MG/DL (1.6-2.4)
[2020-07-22] MEDS ORDERED: morphine INJ 10 MG/ML 1ML (SYR OR VIAL) ONE (17:01)
[2020-07-22] MEDS ORDERED: morphine INJ 10 MG/ML 1ML (SYR OR VIAL) IVP STA (17:06)
[2020-07-22] MEDS ORDERED: inSUlin (REGULAR) HUMAN 1 UNIT/0.01 ML (CHARGE PER UNIT) IV ONE (17:15)
[2020-07-22] MEDS ORDERED: IOHEXOL 350 MG/ML 100 ML (OMNIPAQUE 350) VIAL IV ONE (17:15)
[2020-07-22] MEDS ORDERED: NS IV 1000 ML 1,000 ML IV SCH (17:15)
[2020-07-22] MEDS ORDERED: NS 100 ML (IVPB) BAG IV ONE (17:15)
[2020-07-22] MEDS ORDERED: CATHETER FLUSH 10 ML SYR IV PRN (17:15)
[2020-07-22] MEDS ORDERED: HOLD METFORMIN - RECEIVED CONTRAST 20 ML VIAL IV SCH (17:15)
[2020-07-22] MEDS ORDERED: fentaNYL INJECTION 100 MCG/2 ML AMP ONE (17:38)
[2020-07-22] MEDS ORDERED: fentaNYL INJECTION 100 MCG/2 ML AMP IVP ONE (17:45)
--- NOTE | 2020-07-22 17:45 | Diagnostic Imaging Report ---
PROCEDURE: CT angiography of the chest with contrast. TECHNIQUE: Multiple contiguous axial images were obtained through the chest after uneventful bolus administration of intravenous contrast. 3D reconstructed CTA MIP acquisitions were also performed. Auto Exposure Controls were utilized during the CT exam to meet ALARA standards for radiation dose reduction. INDICATION: Chest and back pain. Concern for aortic injury. COMPARISON: 05/20/2019. FINDINGS: The aorta appears normal in caliber. There is mild atherosclerosis. There is no aneurysm. There is no dissection. The branch vessels of the arch appear normal. Visible portions of the pulmonary arteries demonstrate no filling defects. The heart is normal in size. There is coronary atherosclerosis. No pericardial effusion is seen. There is no mediastinal adenopathy and no axillary adenopathy. There is a right thyroid nodule, please refer to prior ultrasound of March 2020. There is no pleural effusion or pneumothorax. There is mild dependent atelectasis, bilaterally. No mass is seen. No central endobronchial lesion is seen. There are degenerative changes in the spine with no acute osseous abnormality identified. The liver appears to have fatty infiltration. No acute abnormality is seen in the upper abdomen. IMPRESSION: 1. No evidence of aortic dissection or aneurysm. No acute abnormality is seen in the chest. 2. Hepatic steatosis. Dictated by: Dictated on workstation # [id number]
[2020-07-22 19:30] VITALS: BP 105/79
== END 2020-07-22 19:30 | disposition home or self-care (01) ==
LOC: EDUNIT# 16:21 → ER 16:23
DX: R07.89 Other chest pain (principal); E11.40 Type 2 diabetes mellitus with diabetic neuropathy, unspecified; I10 Essential (primary) hypertension; I25.2 Old myocardial infarction; I25.10 Atherosclerotic heart disease of native coronary artery without angina pectoris; E78.00 Pure hypercholesterolemia, unspecified; E78.5 Hyperlipidemia, unspecified; M10.9 Gout, unspecified; K21.9 Gastro-esophageal reflux disease without esophagitis; E66.9 Obesity, unspecified; J44.9 Chronic obstructive pulmonary disease, unspecified; F17.220 Nicotine dependence, chewing tobacco, uncomplicated; Z95.5 Presence of coronary angioplasty implant and graft; Z87.01 Personal history of pneumonia (recurrent); Z79.4 Long term (current) use of insulin; Z79.82 Long term (current) use of aspirin; Z79.02 Long term (current) use of antithrombotics/antiplatelets; Z82.49 Family history of ischemic heart disease and other diseases of the circulatory system; Z83.3 Family history of diabetes mellitus; Z80.6 Family history of leukemia; Z80.0 Family history of malignant neoplasm of digestive organs
CPT/HCPCS: 36415; 71045; 71275; 80053; 83735; 83874; 84484; 85025; 85610; 85730; 93005; 93041

== ENCOUNTER 2020-08-21 21:52 | Observation (INO) | payer MEDICARE, OTHER ==
[~2020-08-21] VITALS: Ht 180 cm; Wt 135.0 kg
[2020-08-21] MEDS ORDERED: ASPIRIN 81 MG CHEW (CHILDREN'S ASA) PO ONE (22:00)
[2020-08-21 22:24] LABS: BASOPHILS % (AUTO) 0 % (0-10); EOSINOPHILS # (AUTO) 0.2 10^3/uL (0.0-0.3); EOSINOPHILS % (AUTO) 2 % (0-10); HEMATOCRIT 44 % (40-54); HEMOGLOBIN 14.3 g/dL (13.3-17.7); LYMPHOCYTES # (AUTO) 1.8 10^3/uL (1.0-4.0); LYMPHOCYTES % (AUTO) 18 % (12-44); MEAN CORPUSCULAR HEMOGLOBIN 31 pg (25-34); MEAN CORPUSCULAR HGB CONC 33 g/dL (32-36); MEAN CORPUSCULAR VOLUME 97 fL (80-99); MONOCYTES # (AUTO) 1.1 10^3/uL (0.0-1.0); MONOCYTES % (AUTO) 11 % (0-12); NEUTROPHILS # (AUTO) 6.6 10^3/uL (1.8-7.8); NEUTROPHILS % (AUTO) 68 % (42-75); PLATELET COUNT 156 10^3/uL (130-400); WHITE BLOOD COUNT 9.7 10^3/uL (4.3-11.0)
[2020-08-21] MEDS: NITROGLYCERIN 0.4 MG SL TABS BTL 25'S SL PRN ×3 (22:25→22:36)
[2020-08-21 22:36] LABS: INR 1.1 (0.8-1.4); PROTHROMBIN TIME PATIENT 14.2 SEC (12.2-14.7)
[2020-08-21 22:42] LABS: POTASSIUM 4.1 MMOL/L (3.6-5.0)
[2020-08-21 22:43] LABS: CALCIUM 9.3 MG/DL (8.5-10.1)
[2020-08-21 22:44] LABS: TOTAL PROTEIN 7.2 GM/DL (6.4-8.2)
[2020-08-21] MEDS ORDERED: morphine INJ 10 MG/ML 1ML (SYR OR VIAL) IVP ONE ×3 (22:45→23:45)
[2020-08-21 22:46] LABS: BILIRUBIN,TOTAL 0.4 MG/DL (0.1-1.0)
[2020-08-21 22:48] LABS: CREATININE SERUM 1.79 MG/DL (0.60-1.30)
[2020-08-21 22:50] LABS: MAGNESIUM 1.9 MG/DL (1.6-2.4)
[2020-08-21 22:58] LABS: CREATINE KINASE MB 5.7 NG/ML (<6.6)
--- NOTE | 2020-08-21 23:11 | ED Chest Pain ---
General Chief Complaint: Chest Pain Stated Complaint: CHEST PAIN Source: patient, old records History of Present Illness Date Seen by Provider: Aug 21, 2020 Time Seen by Provider: 22:00 Initial Comments PT ARRIVES VIA POV FROM HOME C/O MID CHEST PAIN RADIATING DOWN RIGHT ARM RATES PAIN 9/10 PAIN BEGAN AROUND [id number] WHILE WATCHING TV + SWEATS + SHORTNESS OF BREATH, ALSO HURTS TO BREATHE SLIGHT NAUSEA, NO VOMITING NO SWELLING IN LEGS/FEET OR PAIN IN CALVES. NO PALPITATIONS NO DIZZINESS NO SYNCOPE NOTHING WORSENS OR IMPROVES PAIN PT TOOK 3 NTG AT HOME WITHOUT RELIEF--WAS OLD BOTTLE FROM OVER A YEAR AG O--MAY OF 2019. PT HAS HISTORY OF CAD AND NSTEMI WITH 4 STENTS PT WAS ADMITTED 07/17/20 AND HAD A CARDIAC CATH BY DR. RODRÍGUEZ 07/18/20--SHOWED MODERATE TO SEVERE DISEASE IN OSTIAL RAMUS INTERMEDIUS BRANCH. DISTAL DISEASE. , MODERATE DISEASE IN TORTUOUS LAD IN SMALL DIAGONAL ARTERY. PATENT STENT TO RCA, WITH SMALL VESSEL DISEASE DISTALLY. NO INTERVENTION WAS DONE AT THAT TIME. NO COVID-19 SYMPTOMS OR KNOWN EXPOSURE TO COVID-19 Allergies and Home Medications Allergies Coded Allergies: No Known Drug Allergies (Unverified , 12/29/19) Home Medications Allopurinol 300 Mg Tablet, 300 MG PO DAILY, (Reported) Ascorbic Acid 500 Mg Tablet, 1,000 MG PO BID, (Reported) Aspirin 81 Mg Tablet.dr, 81 MG PO DAILY, (Reported) Baclofen 10 Mg Tablet, 10 MG PO TID PRN for SPASMS, (Reported) Carvedilol 3.125 Mg Tablet, 3.125 MG PO BID, (Reported) Cholecalciferol (Vitamin D3) 1,250 Mcg Capsule, 1,250 MCG PO DAILY, (Reported) Docusate Sodium 250 Mg Capsule, 250 MG PO HS, (Reported) Evolocumab 140 Mg/1 Ml Pen.injctr, 140 MG EVERY 2 WEEKS, (Reported) Fenofibrate,Micronized 134 Mg Capsule, 134 MG PO HS, (Reported) Fexofenadine HCl 180 Mg Tablet, 180 MG PO DAILY, (Reported) Furosemide 40 Mg Tablet, 40 MG PO DAILY, (Reported) Gabapentin 300 Mg Capsule, 300 MG PO AM, (Reported) Gabapentin 300 Mg Capsule, 1,500 MG PO HS, (Reported) TAKES 5 (300MG) CAPS Hydrocodone/Acetaminophen 1 Each Tablet, 1 EA PO BID PRN for PAIN-MODERATE (5- 7), (Reported) Hydroxyzine HCl 10 Mg Tablet, 10 MG PO Q6H PRN for ANXIETY, (Reported) Insulin Regular, Human 500 Unit/1 Ml Insuln.pen, 240 UNITS SC AC, (Reported) Isosorbide Mononitrate 30 Mg Tab.er.24h, 30 MG PO DAILY, (Reported) Lisinopril 10 Mg Tablet, 10 MG PO DAILY, (Reported) Magnesium Oxide 400 Mg Tablet, 400 MG PO BIDPC, (Reported) Montelukast Sodium 10 Mg Tablet, 10 MG PO HS, (Reported) Nitroglycerin 0.4 Mg Tab.subl, 0.4 MG SL UD PRN for CHEST PAIN, (Reported) Sawyer-3 Acid Ethyl Esters 1 Gm Capsule, 2 GM PO BID, (Reported) TAKES 2 (1GM) CAPS Pantoprazole Sodium 40 Mg Tablet.dr, 40 MG PO BID, (Reported) Pediatric Multivit Comb No.136 1 Each Tab.chew, 2 TAB.CHEW PO DAILY, (Reported) Pitavastatin Calcium 4 Mg Tablet, 4 MG PO HS, (Reported) Prasugrel HCl 10 Mg Tablet, 10 MG PO DAILY, (Reported) Ubidecarenone 100 Mg Capsule, 100 MG PO DAILY, (Reported) TAKES ALONG WITH 200MG CAPSULE FOR A TOTAL DAILY DOSE OF 300MG Ubidecarenone 200 Mg Capsule, 200 MG PO DAILY, (Reported) TAKEA ALONG WITH 100MG CAPSULE FOR A TOTAL DAILY DOSE OF 300MG Zinc 50 Mg Tablet, 50 MG PO DAILY, (Reported) Patient Home Medication List Home Medication List Reviewed: Yes Review of Systems Review of Systems Constitutional: see HPI, diaphoresis Past Tpqojay-Bhlnuj-Cuxwnt Hx Past Med/Social Hx: Reviewed and Corrections made Patient Social History Alcohol Use: Past History Number of Drinks Today: AA Alcohol Beverage of Choice: Beer Smoking Status: Never a Smoker Type Used: Smokeless Tobacco 2nd Hand Smoke Exposure: No Recent Hopitalizations: No Immunizations Up To Date Tetanus Booster (TDap): Unknown PED Vaccines UTD: No Date of Pneumonia Vaccine: Mar 21, 2018 Date of Influenza Vaccine: Mar 05, 2020 Seasonal Allergies Seasonal Allergies: Yes Past Medical History Surgeries: Yes Abdominal, Adenoidectomy, Appendectomy, Cardiac, Coronary Stent, Gallbladder, Orthopedic, Tonsillectomy Respiratory: Yes Pneumonia, Sleep Apnea, COPD Currently Using CPAP: No (DOES NOT USE) Currently Using BIPAP: No Cardiac: Yes (NSTEMI 03/2019; STENTS X 4) Chronic Edema/Swelling, Coronary Artery Disease, Heart Attack, High Cholesterol, Hypertension Neurological: Yes Headaches /Migraines, Neuropathy Reproductive Disorders: No Sexually Transmitted Disease: No HIV/AIDS: No Genitourinary: Yes (CHRONIC RENAL INSUFFICIENCY) Kidney Stones, Renal Failure Gastrointestinal: Yes (SURGERY FOR BOWEL OBSTRUCTIONS/ADHESIONS;CHERYL FUNDOPLICATION;PENELOPE) Gastroesophageal Reflux, Obstructive Bowel, Hiatal Hernia, Gall Bladder Disease Musculoskeletal: Yes (MUJLTIPLE BACK SURGERIES; KNEE SURGERY; RIGHT ARM SURGERY) Degenerate Disk Disease, Arthritis, Fibromyalgia, Back Injury, Chronic Back Pain, Fractures, Gout Endocrine: Yes (OBESITY) Diabetes, Insulin dep HEENT: Yes (GLASSES) Tonsilitis Loss of Vision: Denies Hearing Impairment: Denies Cancer: No Psychosocial: Yes Anxiety, Depression Integumentary: No Blood Disorders: No Adverse Reaction/Blood Tranf: No (N/A) Family Medical History Abdominal aortic aneurysm 09 BROTHER Cancer 03 MOTHER Cancer of colon 03 MOTHER 09 SISTER 19 MOTHER FH: COPD (chronic obstructive pulmonary disease) 19 FATHER FH: leukemia 09 SISTER 19 MOTHER FHx: stroke 19 FATHER Family history: Diabetes mellitus 09 BROTHER 09 SISTER 09 SISTER 09 SISTER Family history: Gastrointestinal disease 03 MOTHER 09 BROTHER Cancer, Diabetes, Hypertension, Stroke SOCIAL HISTORY: -ETOH--HISTORY OF MODERATE TO HEAVY USE -DRUGS--DENIES USE -DENIES SMOKING, BUT HAS CHEWED TOBACCO PAST SURGICAL HISTORY: -CARDIAC CATHS--STENTS X 4 -EGD'S -COLONOSCOPIES/POLYPECTOMY -MULTIPLE BACK [id number] FUSION AND PLATES/RODS; NERVE STIMULATOR-REMOVED -LITHOTRIPSY -LEFT KNEE SCOPE/ACL REPAIR -WISDOM TEETH -TONSILLECTOMY/ADEONOIDECTOMY -APPENDECTOMY -CHOLECYSTECTOMY -ABDOMINAL LAPAROTOMY FOR BOWEL OBSTRUCTIONS/LYSIS OF ADHESIONS -VENTRAL HERNIA REPAIR -CHERYL FUNDOPLICATION -BILATERAL CARPAL TUNNEL -RIGHT WRIST FX/ORIF CARDIAC CATH 07/18/[address] RODRÍGUEZ: FINDINGS: Hemodynamics LV 135/15, end-diastolic pressure 15 Aorta 143/80 mean of 107 ANATOMY: Left Main is free of obstructive disease Left Anterior Descending is slightly tortuous, disease in a small diagonal branch, nonobstructive disease Ramus intermedius is moderate in size, has moderate to severe ostial stenosis, distally there is moderate disease Left Circumflex is moderate in size with small vessel disease in the distal circumflex artery nonobstructive disease Right Coronory Artery has diffuse ectasia, stent is patent the distal right coronary artery, small vessel disease distally LV Gram was not done, pressure was measured CONCLUSION: 1. Moderate to severe ostial ramus intermedius branch that is small to moderate in size. Distal disease, medical therapy is recommended 2. Tortuous LAD with moderate disease in a small diagonal artery that could be responsible for the chest pain 3. Diffuse ectasia in the right coronary artery with patent stent, small vessel disease distally 4. Small vessel disease in the circumflex artery distally 5. Normal left ventricular end-diastolic pressure DISCUSSION AND RECOMMENDATION: Medical therapy is recommended, no intervention is warranted Anesthesia Type: Conscious Sedation Estimated blood loss (mL): 25 ml Contrast Amount: 34 ml Total Radiation Dose: 550 mGy Post-Procedure Diagnosis Post-operative diagnosis: Unstable angina Coronary artery disease Hypertension Hyperlipidemia Coronary artery disease, patient had non-ST elevation myocardial infarction, underwent cardiac catheterization on April 11, 2019 revealing subtotal occlusion with diffuse ectasia in the distal right coronary artery, complex intervention requiring guide liner and multiple balloons, then deployment of Maday 423 mm stent with excellent results. Proximal RCA has diffuse ectasia with 50 percent stenosis, distal right PDA subtotally occluded, fairly small artery, will be treated medically. Severe stenosis at the distal circumflex artery with long lesion involving the obtuse marginal branch, proper circumflex and AV groove branch, all arteries are less than 2 mm in diameter. 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 Mild to moderate ectasia in LAD with mild to moderate disease diffusely, nonobstructive disease. Underwent cardiac catheterization on May 03, [address] Cartagena with 2.2532 mm Promus drug-eluting stent to the circumflex artery. Underwent repeat cardiac catheterization on May 21, 2019 revealing multivessel CAD with FFR confirmation of zcq-ensj-udwhiyvb disease in RCA and flow-limiting disease in mid LAD. Zzh-ldqi-zfamyjvr in proximal LAD. [id number] Synergy stent to mid LAD. Most recent cardiac catheterization done June 10, 2019 with 2.0x 12mm drug eluting Cristopher stent to first diagonal. Maintained on Effient and aspirin. Physical Exam Vital Signs Vital Signs - First Documented 08/21/20 22:42 O2 Flow Rate 2.00 Capillary Refill : Less Than 3 Seconds Height, Weight, BMI Height: 5'11.00" Weight: 260lbs. 8.0oz. 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 Skin: Normal Color, Warm/Dry; No Rash Progress/Results/Core Measures Results/Orders Lab Results Laboratory Tests Test 08/21/20 22:15 Range/Units White Blood Count 9.7 4.3-11.0 10^3/uL Red Blood Count 4.55 4.30-5.52 10^6/uL Hemoglobin 14.3 13.3-17.7 g/dL Hematocrit 44 40-54 % Mean Corpuscular Volume 97 80-99 fL Mean Corpuscular Hemoglobin 31 25-34 pg Mean Corpuscular Hemoglobin Concent 33 32-36 g/dL Red Cell Distribution Width 13.0 10.0-14.5 % Platelet Count 156 130-400 10^3/uL Mean Platelet Volume 11.0 9.0-12.2 fL Immature Granulocyte % (Auto) 0 % Neutrophils (%) (Auto) 68 42-75 % Lymphocytes (%) (Auto) 18 12-44 % Monocytes (%) (Auto) 11 0-12 % Eosinophils (%) (Auto) 2 0-10 % Basophils (%) (Auto) 0 0-10 % Neutrophils # (Auto) 6.6 1.8-7.8 10^3/uL Lymphocytes # (Auto) 1.8 1.0-4.0 10^3/uL Monocytes # (Auto) 1.1 H 0.0-1.0 10^3/uL Eosinophils # (Auto) 0.2 0.0-0.3 10^3/uL Basophils # (Auto) 0.0 0.0-0.1 10^3/uL Immature Granulocyte # (Auto) 0.0 0.0-0.1 10^3/uL Prothrombin Time 14.2 12.2-14.7 SEC INR Comment 1.1 0.8-1.4 Activated Partial Thromboplast Time 31 24-35 SEC Sodium Level 139 135-145 MMOL/L Potassium Level 4.1 3.6-5.0 MMOL/L Chloride Level 101 98-107 MMOL/L Carbon Dioxide Level 26 21-32 MMOL/L Anion Gap 12 5-14 MMOL/L Blood Urea Nitrogen 30 H 7-18 MG/DL Creatinine 1.79 H 0.60-1.30 MG/DL Estimat Glomerular Filtration Rate 40 BUN/Creatinine Ratio 17 Glucose Level 177 H 70-105 MG/DL Calcium Level 9.3 8.5-10.1 MG/DL Corrected Calcium 9.3 8.5-10.1 MG/DL Magnesium Level 1.9 1.6-2.4 MG/DL Total Bilirubin 0.4 0.1-1.0 MG/DL Aspartate Amino Transf (AST/SGOT) 48 H 5-34 U/L Alanine Aminotransferase (ALT/SGPT) 70 H 0-55 U/L Alkaline Phosphatase 82 40-136 U/L Total Creatine Kinase 194 30-200 U/L Creatine Kinase MB 5.7 <6.6 NG/ML Myoglobin 147.2 H 10.0-92.0 NG/ML Troponin I 0.028 <0.028 NG/ML B-Type Natriuretic Peptide < 10.0 <100.0 PG/ML Total Protein 7.2 6.4-8.2 GM/DL Albumin 4.0 3.2-4.5 GM/DL Amylase Level 40 25-125 U/L Lipase 39 8-78 U/L My Orders Orders - ANASTASIA GUTIERREZ DO Cbc With Automated Diff (08/21/20 22:00) Magnesium (08/21/20 22:00) Chest 1 View, Ap/Pa Only (08/21/20 22:00) Ekg Tracing (08/21/20 22:00) Comprehensive Metabolic Panel (08/21/20 22:00) Myoglobin Serum (08/21/20 22:00) Protime With Inr (08/21/20 22:00) Partial Thromboplastin Time (08/21/20 22:00) O2 (08/21/20 22:00) Monitor-Rhythm Ecg Trace Only (08/21/20 22:00) Ed Iv/Invasive Line Start (08/21/20 22:00) Creatine Kinase (08/21/20 22:00) Creatine Kinase Mb (08/21/20 22:00) Lipase (08/21/20 22:00) Amylase (08/21/20 22:00) BNP (08/21/20 22:00) Troponin I (08/21/20 22:00) Nitroglycerin 0.4 Mg Btl 25's (Nitrostat (08/21/20 22:00) Aspirin Chewable Tablet (Baby Aspirin Ch (08/21/20 22:00) Morphine Injection (Morphine Injection (08/21/20 22:45) Morphine Injection (Morphine Injection (08/21/20 23:00) Medications Given in ED Current Medications Medications Dose Ordered Sig/Lamin Route Start Time Stop Time Status Last Admin Dose Admin Aspirin 324 mg ONCE ONCE PO 08/21/20 22:00 08/21/20 22:01 DC 08/21/20 22:23 324 MG Morphine Sulfate 4 mg ONCE ONCE IVP 08/21/20 22:45 08/21/20 22:46 DC 08/21/20 22:44 4 MG Morphine Sulfate 4 mg ONCE ONCE IVP 08/21/20 23:00 08/21/20 23:01 DC 08/21/20 22:56 4 MG Nitroglycerin 0.4 mg UD PRN SL 08/21/20 22:00 08/21/20 22:37 DC 08/21/20 22:36 0.4 MG Vital Signs/I&O 08/21/20 08/21/20 08/21/20 21:56 21:56 22:42 Temp 36.8 Pulse 96 Resp 18 B/P (MAP) 141/95 (110) O2 Delivery Room Air Room Air Nasal Cannula O2 Flow Rate 2.00 Progress Progress Note : Progress Note GIVEN ASPIRIN AND NTG X 3--NO RELIEF GIVEN MORPHINE WITH MODERATE IMPROVEMENT IN PAIN--PAIN DOWN TO LESS THAN 5 AT TIME OF ADMIT. NO DETERIORATION IN PT'S CONDITION DURING ER STAY Initial ECG Impression Date: Aug 21, 2020 Initial ECG Impression Time: 22:00 Initial ECG Rate: 97 Initial ECG Rhythm: Normal Sinus Initial ECG Comparisson: Unchanged Diagnostic Imaging Comments CXR--NO ACUTE PROCESS, PENDING RADIOLOGIST REVIEW Reviewed: Reviewed by Me Departure Communication (Admissions) 2307--SPOKE WITH DR. RODRÍGUEZ, [facility], WILL SEE PT IN CONSULT, ADVISES TO ADMIT TO HOSPITALIST. NO ADDITIONAL RECOMMENDATIONS AT THIS TIME 2309--SPOKE WITH DR. GONSALEZ, HOSPITALIST AND PT'S PCP, ACCEPTS PT FOR ADMIT. NO ADDITIONAL RECOMMENDATIONS AT THIS TIME Impression Primary Impression: Chest pain Additional Impression: HISTORY OF CAD WITH STENTS Disposition: ADMITTED INPATIENT Condition: Improved Admissions Decision to Admit Reason: Admit from ER (General) Decision to Admit/Date: Aug 21, 2020 Time/Decision to Admit Time: 23:10 Departure-Patient Inst. Referrals: IRINEO GONSALEZ DO (PCP/Family) Primary Care Physician ANASTASIA GUTIERREZ DO Aug 21, 2020 23:11
[2020-08-21] MEDS ORDERED: ENOXAPARIN 40 MG/0.4 ML (LOVENOX) SYR SC ONE (23:15)
[2020-08-21] MEDS ORDERED: ENOXAPARIN 100 MG/1 ML (LOVENOX) SYR SC ONE (23:15)
[2020-08-22] VITALS (9 sets, daily range): BP systolic 123–152; BP diastolic 76–100
[2020-08-22] MEDS ORDERED: ONDANSETRON 4 MG/2 ML (SDV) Z0FRAN IVP PRN (01:30)
[2020-08-22] MEDS ORDERED: morphine INJ 4 MG/ML 1 ML (VIAL/SYRINGE) IV PRN (01:30)
[2020-08-22] MEDS ORDERED: NITROGLYCERIN 0.4 MG SL TABS BTL 25'S SL PRN (01:30)
[2020-08-22 02:28] LABS: BASOPHILS # (AUTO) 0.1 10^3/uL (0.0-0.1); BASOPHILS % (AUTO) 1 % (0-10); EOSINOPHILS # (AUTO) 0.2 10^3/uL (0.0-0.3); EOSINOPHILS % (AUTO) 2 % (0-10); HEMATOCRIT 47 % (40-54); HEMOGLOBIN 15.4 g/dL (13.3-17.7); LYMPHOCYTES # (AUTO) 2.2 10^3/uL (1.0-4.0); LYMPHOCYTES % (AUTO) 19 % (12-44); MEAN CORPUSCULAR HEMOGLOBIN 32 pg (25-34); MEAN CORPUSCULAR HGB CONC 33 g/dL (32-36); MEAN CORPUSCULAR VOLUME 98 fL (80-99); MEAN PLATELET VOLUME 11.6 fL (9.0-12.2); MONOCYTES # (AUTO) 1.2 10^3/uL (0.0-1.0); MONOCYTES % (AUTO) 11 % (0-12); NEUTROPHILS # (AUTO) 7.3 10^3/uL (1.8-7.8); NEUTROPHILS % (AUTO) 66 % (42-75); PLATELET COUNT 204 10^3/uL (130-400); WHITE BLOOD COUNT 11.1 10^3/uL (4.3-11.0)
[2020-08-22 02:40] LABS: POTASSIUM 4.1 MMOL/L (3.6-5.0)
[2020-08-22 02:41] LABS: ALBUMIN 4.3 GM/DL (3.2-4.5)
[2020-08-22 02:42] LABS: CALCIUM 9.6 MG/DL (8.5-10.1)
[2020-08-22 02:43] LABS: TOTAL PROTEIN 7.6 GM/DL (6.4-8.2)
[2020-08-22 02:45] LABS: BILIRUBIN,TOTAL 0.5 MG/DL (0.1-1.0)
[2020-08-22 02:47] LABS: CREATININE SERUM 1.74 MG/DL (0.60-1.30)
[2020-08-22] MEDS ORDERED: DEXTROSE 50% 50 ML (IMS) SYR ONE (04:14)
[2020-08-22] MEDS ORDERED: DEXTROSE 50% 50 ML (IMS) SYR IV ONE (04:30)
--- NOTE | 2020-08-22 06:34 | Diagnostic Imaging Report ---
INDICATION: Chest pain COMPARISON: 07/22/2020 FINDINGS: Single view of the chest demonstrates stable cardiac enlargement without overt pulmonary edema. The lungs are clear. There is no pneumothorax. The osseous structures are stable. IMPRESSION: No acute cardiopulmonary findings. Dictated by: Dictated on workstation # [id number]
[2020-08-22] MEDS ORDERED: ASPIRIN E.C. 81 MG (ECOTRIN) TAB PO SCH (09:00)
--- NOTE | 2020-08-22 10:01 | Consultation-Cardiology ---
HPI-Cardiology Cardiology Consultation Date of Consultation 08/22/20 Date of Admission Time Seen by Provider: 08:00 Indication: Chest pain HPI 54 years old gentleman with extensive cardiac history, multiple intervention, multiple cardiac catheterization, has been having recurrent chest pain, has significant weight gain, started to have chest pain yesterday, severe 8-9 over 10 in intensity, came into the emergency room, reported that nitroglycerin did not help the pain at all. Reported some improvement with morphine. Currently chest pain-free. No further episodes were reported, patient had significant weight gain recently. No palpitation. No syncope. Home Medications & Allergies Allergies: Coded Allergies: No Known Drug Allergies (Unverified , 12/29/19) Home Medication List Reviewed: Yes WAK-Yvptqa-Sjmqlv Hx Patient Social History Marital Status: Employed/Student: employed Recreational Drug Use: No Smoking Status: Never a Smoker Type Used: Smokeless Tobacco 2nd Hand Smoke Exposure: No Recent Hopitalizations: No Have you traveled recently?: No Immunizations Up To Date Tetanus Booster (TDap): Unknown Date of Pneumonia Vaccine: Mar 21, 2018 Date of Influenza Vaccine: Mar 05, 2020 Past Medical History Discussed below Family Medical History Significant Family History: Cancer, Diabetes, Hypertension, Stroke Family History: Abdominal aortic aneurysm 09 BROTHER Cancer 03 MOTHER Cancer of colon 03 MOTHER 09 SISTER 19 MOTHER FH: COPD (chronic obstructive pulmonary disease) 19 FATHER FH: leukemia 09 SISTER 19 MOTHER FHx: stroke 19 FATHER Family history: Diabetes mellitus 09 BROTHER 09 SISTER 09 SISTER 09 SISTER Family history: Gastrointestinal disease 03 MOTHER 09 BROTHER Review of Systems-General Review of Systems Constitutional: see HPI, diaphoresis EENTM: see HPI, no symptoms reported Respiratory: see HPI; No cough; dyspnea on exertion; No hemoptysis, No orthopnea, No phlegm, No short of breath, No stridor, No wheezing, No other Cardiovascular: see HPI, chest pain; No edema, No Hx of Intervention, No palpitations, No syncope, No vascular heart diseas, No other Gastrointestinal: no symptoms reported, see HPI Genitourinary: no symptoms reported, see HPI Musculoskeletal: no symptoms reported, see HPI Skin: no symptoms reported, see HPI Psychiatric/Neurological: No Symptoms Reported, See HPI Reviewed Test Results Reviewed Test Results Lab Laboratory Tests Test 08/21/20 22:15 08/22/20 02:05 Range/Units White Blood Count 9.7 11.1 H 4.3-11.0 10^3/uL Red Blood Count 4.55 4.83 4.30-5.52 10^6/uL Hemoglobin 14.3 15.4 13.3-17.7 g/dL Hematocrit 44 47 40-54 % Mean Corpuscular Volume 97 98 80-99 fL Mean Corpuscular Hemoglobin 31 32 25-34 pg Mean Corpuscular Hemoglobin Concent 33 33 32-36 g/dL Red Cell Distribution Width 13.0 13.1 10.0-14.5 % Platelet Count 156 204 130-400 10^3/uL Mean Platelet Volume 11.0 11.6 9.0-12.2 fL Immature Granulocyte % (Auto) 0 1 % Neutrophils (%) (Auto) 68 66 42-75 % Lymphocytes (%) (Auto) 18 19 12-44 % Monocytes (%) (Auto) 11 11 0-12 % Eosinophils (%) (Auto) 2 2 0-10 % Basophils (%) (Auto) 0 1 0-10 % Neutrophils # (Auto) 6.6 7.3 1.8-7.8 10^3/uL Lymphocytes # (Auto) 1.8 2.2 1.0-4.0 10^3/uL Monocytes # (Auto) 1.1 H 1.2 H 0.0-1.0 10^3/uL Eosinophils # (Auto) 0.2 0.2 0.0-0.3 10^3/uL Basophils # (Auto) 0.0 0.1 0.0-0.1 10^3/uL Immature Granulocyte # (Auto) 0.0 0.1 0.0-0.1 10^3/uL Prothrombin Time 14.2 12.2-14.7 SEC INR Comment 1.1 0.8-1.4 Activated Partial Thromboplast Time 31 24-35 SEC Sodium Level 139 141 135-145 MMOL/L Potassium Level 4.1 4.1 3.6-5.0 MMOL/L Chloride Level 101 102 98-107 MMOL/L Carbon Dioxide Level 26 26 21-32 MMOL/L Anion Gap 12 13 5-14 MMOL/L Blood Urea Nitrogen 30 H 31 H 7-18 MG/DL Creatinine 1.79 H 1.74 H 0.60-1.30 MG/DL Estimat Glomerular Filtration Rate 40 41 BUN/Creatinine Ratio 17 18 Glucose Level 177 H 83 70-105 MG/DL Calcium Level 9.3 9.6 8.5-10.1 MG/DL Corrected Calcium 9.3 9.4 8.5-10.1 MG/DL Magnesium Level 1.9 1.6-2.4 MG/DL Total Bilirubin 0.4 0.5 0.1-1.0 MG/DL Aspartate Amino Transf (AST/SGOT) 48 H 52 H 5-34 U/L Alanine Aminotransferase (ALT/SGPT) 70 H 74 H 0-55 U/L Alkaline Phosphatase 82 82 40-136 U/L Total Creatine Kinase 194 30-200 U/L Creatine Kinase MB 5.7 <6.6 NG/ML Myoglobin 147.2 H 10.0-92.0 NG/ML Troponin I 0.028 <0.028 NG/ML B-Type Natriuretic Peptide < 10.0 <100.0 PG/ML Total Protein 7.2 7.6 6.4-8.2 GM/DL Albumin 4.0 4.3 3.2-4.5 GM/DL Amylase Level 40 25-125 U/L Lipase 39 8-78 U/L Triglycerides Level 131 <150 MG/DL Cholesterol Level 66 < 200 MG/DL LDL Cholesterol Direct 15 1-129 MG/DL VLDL Cholesterol 26 5-40 MG/DL HDL Cholesterol 35 L 40-60 MG/DL Physical Exam Physical Exam Vital Signs Vital Signs - First Documented 08/21/20 08/22/20 22:42 01:01 Pulse Ox 95 O2 Flow Rate 2.00 Capillary Refill : Less Than 3 Seconds Height, Weight, BMI Height: 5'11.00" Weight: 260lbs. 8.0oz. 117.148693dt; 41.04 BMI Method:Stated General Appearance: No Apparent Distress, WD/WN, Obese Eyes: Bilateral Eye Normal Inspection, Bilateral Eye PERRL, Bilateral Eye EOMI HEENT: PERRL/EOMI, TMs Normal, Normal ENT Inspection, Pharynx Normal, Moist Mucous Membranes Neck: Normal Inspection; No Carotid Bruit Respiratory: Chest Non Tender, Normal Breath Sounds, No Accessory Muscle Use, No Respiratory Distress Cardiovascular: Regular Rate, Rhythm, No Edema, No JVD, No Murmur, Normal Peripheral Pulses Gastrointestinal: Non Tender, Soft Back: Normal Inspection, No CVA Tenderness, No Vertebral Tenderness Extremity: Normal Inspection, No Calf Tenderness, No Pedal Edema Neurologic/Psychiatric: Alert, Oriented x3, No Motor/Sensory Deficits, Normal 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, 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 Skin: Normal Color, Warm/Dry; No Rash Lymphatic: No Adenopathy A/P-Cardiology Admission Diagnosis Chest pain Coronary artery disease Hypertension Hyperlipidemia Assessment/Plan BMI 41 his BMI was 436 on the last admission chest pain, nonspecific etiology, having multiple episodes of recurrent chest pain, cardiac catheterization was carried out last month showing moderate nonobstructive coronary artery disease, currently chest pain-free, EKG and cardiac enzymes did not show any acute abnormality Coronary artery disease, patient had non-ST elevation myocardial infarction, underwent cardiac catheterization on April 11, 2019 revealing subtotal occlusion with diffuse ectasia in the distal right coronary artery, complex intervention requiring guide liner and multiple balloons, then deployment of Maday 423 mm stent with excellent results. Proximal RCA has diffuse ectasia with 50 percent stenosis, distal right PDA subtotally occluded, fairly small artery, will be treated medically. Severe stenosis at the distal circumflex artery with long lesion involving the obtuse marginal branch, proper circumflex and AV groove branch, all arteries are less than 2 mm in diameter. 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 Mild to moderate ectasia in LAD with mild to moderate disease diffusely, nonobstructive disease. Underwent cardiac catheterization on May 03, [address] Cartagena with 2.2532 mm Promus drug-eluting stent to the circumflex artery. Underwent repeat cardiac catheterization on May 21, 2019 revealing multivessel CAD with FFR confirmation of wjy-ywen-yospaijl disease in RCA and flow-limiting disease in mid LAD. Wfq-yqgp-qqegnfop in proximal LAD. [id number] Synergy stent to mid LAD. Most recent cardiac catheterization done June 10, 2019 with 2.0x 12mm drug eluting Cristopher stent to first diagonal. Repeat cardiac catheterization was done in June 2020 showing moderate nonobstructive disease in the coronary system, maintained on Effient and aspirin. Hypertension, restarted on home medication, monitor blood pressure Hyperlipidemia, monitor lipids Diabetes mellitus, management per primary care physician Chronic renal insufficiency, cannot tolerate metformin. Nonobstructive carotid artery stenosis COPD/obstructive sleep apnea Obesity, BMI is 41 Multiple back surgeries, recent knee surgery, recent umbilical hernia surgery Chronic back pain. Okay for discharge from cardiology standpoint and follow-up as an outpatient Clinical Quality Measures AMI/AHF: ASA po Prior to arrival: Yes (81 MG ASA IN AM) ROSS RODRÍGUEZ MD Aug 22, 2020 10:01
--- NOTE | 2020-08-22 10:35 | Short Stay Summary-Hospitalist ---
History of Present Illness HPI/Chief Complaint CC: Chest pain HPI: This is a 54yoWM with a history of chronic angina, previous stents placed a year ago who presented to the ER with chest pain, Pt was found to have no evidence of acute coronary syndrome, Dr. Armstrong will see him in consultation for EGD since it has been awhile since he had his esophagus evaluated and he is ready to go home, his creatinine remains stable at 1.75 which is chronic. Source: patient Exam Limitations: no limitations Date Seen 08/22/20 Time Seen by a Provider: 10:00 Attending Physician Pat Stevens DO PCP Pat Stevens DO Referring Physician Date of Admission Aug 21, 2020 at 23:10 Home Medications & Allergies Home Medications Reviewed patient Home Medication Reconciliation performed by pharmacy medication reconciliations factory maintenance technician and/or nursing. Patients Allergies have been reviewed. Allergies Allergies Coded Allergies No Known Drug Allergies (Unverified12/29/19) Past [id number]-[id number]-Oguune Hx Past Med/Social Hx: Reviewed Nursing Past Med/Soc Hx, Reviewed and Corrections made Patient Social History Marrital Status: Employed/Student: employed Alcohol Use: Past History Alcohol Beverage of Choice: Beer Recreational Drug Use: No Smoking Status: Never a Smoker Type Used: Smokeless Tobacco 2nd Hand Smoke Exposure: No Recent Foreign Travel: No Contact w/other who traveled: No Recent Hopitalizations: No Recent Infectious Disease Expo: No Immunizations Up To Date Tetanus Booster (TDap): Unknown Pediatric: No Date of Pneumonia Vaccine: Mar 21, 2018 Date of Influenza Vaccine: Mar 05, 2020 Seasonal Allergies Seasonal Allergies: Yes Past Medical History Surgeries: Abdominal, Adenoidectomy, Appendectomy, Cardiac, Coronary Stent, Gallbladder, Orthopedic, Tonsillectomy Respiratory: COPD, Pneumonia, Sleep Apnea Currently Using CPAP: No (DOES NOT USE) Currently Using BIPAP: No Cardiac: Chronic Edema/Swelling, Coronary Artery Disease, Heart Attack, High Cholesterol, Hypertension Neurological: Headaches /Migraines, Neuropathy Reproductive: No Sexually Transmitted Disease: No HIV/AIDS: No Genitourinary: Kidney Stones, Renal Failure Gastrointestinal: Gastroesophageal Reflux, Obstructive Bowel, Hiatal Hernia, Gall Bladder Disease Musculoskeletal: Degenerate Disk Disease, Arthritis, Fibromyalgia, Back Injury, Chronic Back Pain, Fractures, Gout Endocrine: Diabetes, Insulin dep HEENT: Tonsilitis Loss of Vision: Denies Hearing Impairment: Denies Psychosocial: Anxiety, Depression History of Blood Disorders: No Adverse Reaction to Blood Chen: No (N/A) Family History Abdominal aortic aneurysm 09 BROTHER Cancer 03 MOTHER Cancer of colon 03 MOTHER 09 SISTER 19 MOTHER FH: COPD (chronic obstructive pulmonary disease) 19 FATHER FH: leukemia 09 SISTER 19 MOTHER FHx: stroke 19 FATHER Family history: Diabetes mellitus 09 BROTHER 09 SISTER 09 SISTER 09 SISTER Family history: Gastrointestinal disease 03 MOTHER 09 BROTHER Cancer, Diabetes, Hypertension, Stroke SOCIAL HISTORY: -ETOH--HISTORY OF MODERATE TO HEAVY USE -DRUGS--DENIES USE -DENIES SMOKING, BUT HAS CHEWED TOBACCO PAST SURGICAL HISTORY: -CARDIAC CATHS--STENTS X 4 -EGD'S -COLONOSCOPIES/POLYPECTOMY -MULTIPLE BACK [id number] FUSION AND PLATES/RODS; NERVE STIMULATOR-REMOVED -LITHOTRIPSY -LEFT KNEE SCOPE/ACL REPAIR -WISDOM TEETH -TONSILLECTOMY/ADEONOIDECTOMY -APPENDECTOMY -CHOLECYSTECTOMY -ABDOMINAL LAPAROTOMY FOR BOWEL OBSTRUCTIONS/LYSIS OF ADHESIONS -VENTRAL HERNIA REPAIR -CHERYL FUNDOPLICATION -BILATERAL CARPAL TUNNEL -RIGHT WRIST FX/ORIF CARDIAC CATH 07/18/[address] NÚÑEZ: FINDINGS: Hemodynamics LV 135/15, end-diastolic pressure 15 Aorta 143/80 mean of 107 ANATOMY: Left Main is free of obstructive disease Left Anterior Descending is slightly tortuous, disease in a small diagonal branch, nonobstructive disease Ramus intermedius is moderate in size, has moderate to severe ostial stenosis, distally there is moderate disease Left Circumflex is moderate in size with small vessel disease in the distal circumflex artery nonobstructive disease Right Coronory Artery has diffuse ectasia, stent is patent the distal right coronary artery, small vessel disease distally LV Gram was not done, pressure was measured CONCLUSION: 1. Moderate to severe ostial ramus intermedius branch that is small to moderate in size. Distal disease, medical therapy is recommended 2. Tortuous LAD with moderate disease in a small diagonal artery that could be responsible for the chest pain 3. Diffuse ectasia in the right coronary artery with patent stent, small vessel disease distally 4. Small vessel disease in the circumflex artery distally 5. Normal left ventricular end-diastolic pressure DISCUSSION AND RECOMMENDATION: Medical therapy is recommended, no intervention is warranted Anesthesia Type: Conscious Sedation Estimated blood loss (mL): 25 ml Contrast Amount: 34 ml Total Radiation Dose: 550 mGy Post-Procedure Diagnosis Post-operative diagnosis: Unstable angina Coronary artery disease Hypertension Hyperlipidemia Coronary artery disease, patient had non-ST elevation myocardial infarction, underwent cardiac catheterization on April 11, 2019 revealing subtotal occlusion with diffuse ectasia in the distal right coronary artery, complex intervention requiring guide liner and multiple balloons, then deployment of Maday 423 mm stent with excellent results. Proximal RCA has diffuse ectasia with 50 percent stenosis, distal right PDA subtotally occluded, fairly small artery, will be treated medically. Severe stenosis at the distal circumflex artery with long lesion involving the obtuse marginal branch, proper circumflex and AV groove branch, all arteries are less than 2 mm in diameter. 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 Mild to moderate ectasia in LAD with mild to moderate disease diffusely, nonobstructive disease. Underwent cardiac catheterization on May 03, [address] Cartagena with 2.2532 mm Promus drug-eluting stent to the circumflex artery. Underwent repeat cardiac catheterization on May 21, 2019 revealing multivessel CAD with FFR confirmation of [id number] disease in RCA and flow-limiting disease in mid LAD. [id number] in proximal LAD. [id number] Synergy stent to mid LAD. Most recent cardiac catheterization done June 10, 2019 with 2.0x 12mm drug eluting [place] stent to first diagonal. Maintained on Effient and aspirin. Review of Systems Constitutional: see HPI Cardiovascular: chest pain Gastrointestinal: dysphagia Physical Exam Physical Exam Vital Signs Vital Signs - First Documented 08/21/20 08/22/20 22:42 01:01 Pulse Ox 95 O2 Flow Rate 2.00 Capillary Refill : Less Than 3 Seconds Height, Weight, BMI Height: 5'11.00" Weight: 260lbs. 8.0oz. 117.146294ub; 41.04 BMI Method:Stated General Appearance: No Apparent Distress, WD/WN, Chronically ill, Obese Eyes: Bilateral Eye Normal Inspection, Bilateral Eye PERRL, Bilateral Eye EOMI HEENT: PERRL/EOMI, TMs Normal, Normal ENT Inspection, Pharynx Normal, Moist Mucous Membranes Neck: Normal Inspection; No Carotid Bruit Respiratory: Chest Non Tender, Normal Breath Sounds, No Accessory Muscle Use, No Respiratory Distress Cardiovascular: Regular Rate, Rhythm, No Edema, No JVD, No Murmur, Normal Peripheral Pulses Gastrointestinal: Non Tender, Soft Back: Normal Inspection, No CVA Tenderness, No Vertebral Tenderness Extremity: Normal Inspection, No Calf Tenderness, No Pedal Edema Neurologic/Psychiatric: Alert, Oriented x3, No Motor/Sensory Deficits, Normal Mood/Affect, systems checkout mechanic II-XII Norm as Tested Skin: Normal Color, Warm/Dry; No Rash Lymphatic: No Adenopathy Results Results/Procedures Labs Laboratory Tests 08/21/20 22:15 08/22/20 02:05 Patient resulted labs reviewed. Short Stay Diagnosis Discharge Diagnosis-Short Stay Admission Diagnosis Assessment: Chest pain w/o evidence of ACS h/o MO s/p stents x 2 separate caths Titi Núñez and Osiel 2019 HTN HLP RIZA non-compliant with biPAP seeing Dr Ochoa ANDRADE OOC managed by Dr Kain MEDELLIN Spinal disease Chronic pain Kidney stones Final Discharge Diagnosis Assessment: Chest pain w/o evidence of ACS h/o MO s/p stents x 2 separate caths Titi Núñez and Osiel Morales HTN HLP RIAZ non-compliant with biPAP seeing Dr Ochoa FentonOC managed by Dr Kain MEDELLIN Spinal disease Chronic pain Kidney stones Conclusion Plan Plan: MA home Dr Armstrong to see to arrange EGD Monitor BP and sugar See in clinic as planned tomorrow Diagnosis/Problems Diagnosis/Problems (1) Chest pain Status: Acute Clinical Quality Measures AMI/AHF: ASA po Prior to arrival: Yes (81 MG ASA IN AM) PAT STEVENS DO Aug 22, 2020 10:35
[2020-08-22] MEDS ORDERED: ENOXAPARIN 80 MG/0.8 ML (LOVENOX) SYR SC SCH (11:00)
[2020-08-22] MEDS ORDERED: inSUlin ASPART (NovoLOG) 1 UNIT/0.01 ML (CHARGE PER UNIT) SC SCH (11:00)
[2020-08-22] MEDS ORDERED: inSUlin ASPART (NovoLOG) 1 UNIT/0.01 ML (CHARGE PER UNIT) ONE (13:03)
== END 2020-08-22 13:10 | disposition home or self-care (01) ==
LOC: EDUNIT# 21:52 → ER 21:54 → ICU 23:10
PROVIDERS: ADMIT Internal Medicine; ATTEND Internal Medicine
DX: R07.9 Chest pain, unspecified (principal); I25.2 Old myocardial infarction; I12.9 Hypertensive chronic kidney disease with stage 1 through stage 4 chronic kidney disease, or unspecified chronic kidney disease; N18.9 Chronic kidney disease, unspecified; E11.22 Type 2 diabetes mellitus with diabetic chronic kidney disease; E78.5 Hyperlipidemia, unspecified; G47.33 Obstructive sleep apnea (adult) (pediatric); G89.29 Other chronic pain; J44.9 Chronic obstructive pulmonary disease, unspecified; E78.00 Pure hypercholesterolemia, unspecified; I25.10 Atherosclerotic heart disease of native coronary artery without angina pectoris; G43.909 Migraine, unspecified, not intractable, without status migrainosus; E11.40 Type 2 diabetes mellitus with diabetic neuropathy, unspecified; K21.9 Gastro-esophageal reflux disease without esophagitis; M19.90 Unspecified osteoarthritis, unspecified site; F41.9 Anxiety disorder, unspecified; F32.9 Major depressive disorder, single episode, unspecified; M10.9 Gout, unspecified; M54.5 Low back pain; N20.0 Calculus of kidney; Z79.82 Long term (current) use of aspirin; Z79.4 Long term (current) use of insulin; Z79.899 Other long term (current) drug therapy; Z95.5 Presence of coronary angioplasty implant and graft; Z80.0 Family history of malignant neoplasm of digestive organs
CPT/HCPCS: 71045; 80053 ×2; 80061; 82150; 82550; 82553; 83690; 83735; 83874; 83880; 84484; 85025 ×2; 85610; 85730; 93005; 93041; 96372; 96374; 96376; 99284; G0378; 36415

== ENCOUNTER 2020-09-05 03:37 | Inpatient (IN) | payer MEDICARE, OTHER ==
[2020-09-05] VITALS (22 sets, daily range): BP systolic 108–158; BP diastolic 70–109
[~2020-09-05] VITALS: Ht 180 cm; Wt 143.8 kg
[2020-09-05] MEDS ORDERED: morphine INJ 10 MG/ML 1ML (SYR OR VIAL) IV STA (03:49)
[2020-09-05 03:56] LABS: BASOPHILS # (AUTO) 0.1 10^3/uL (0.0-0.1); BASOPHILS % (AUTO) 1 % (0-10); EOSINOPHILS # (AUTO) 0.4 10^3/uL (0.0-0.3); EOSINOPHILS % (AUTO) 4 % (0-10); HEMATOCRIT 44 % (40-54); HEMOGLOBIN 14.3 g/dL (13.3-17.7); LYMPHOCYTES # (AUTO) 1.5 10^3/uL (1.0-4.0); LYMPHOCYTES % (AUTO) 16 % (12-44); MEAN CORPUSCULAR HEMOGLOBIN 32 pg (25-34); MEAN CORPUSCULAR HGB CONC 32 g/dL (32-36); MEAN CORPUSCULAR VOLUME 99 fL (80-99); MONOCYTES % (AUTO) 11 % (0-12); NEUTROPHILS # (AUTO) 6.3 10^3/uL (1.8-7.8); NEUTROPHILS % (AUTO) 68 % (42-75); PLATELET COUNT 148 10^3/uL (130-400); WHITE BLOOD COUNT 9.3 10^3/uL (4.3-11.0)
[2020-09-05] MEDS ORDERED: LIDOCAINE 2% VISCOUS 15 ML UDC PO ONE (04:00)
[2020-09-05] MEDS ORDERED: ASPIRIN 81 MG CHEW (CHILDREN'S ASA) PO ONE (04:00)
[2020-09-05] MEDS ORDERED: ANTACID SUSP 30 ML UDC (MYLANTA) PO ONE (04:00)
[2020-09-05 04:07] LABS: POTASSIUM 4.1 MMOL/L (3.6-5.0)
[2020-09-05 04:08] LABS: CALCIUM 9.3 MG/DL (8.5-10.1)
[2020-09-05 04:09] LABS: TOTAL PROTEIN 7.1 GM/DL (6.4-8.2)
[2020-09-05 04:11] LABS: BILIRUBIN,TOTAL 0.5 MG/DL (0.1-1.0)
[2020-09-05 04:13] LABS: CREATININE SERUM 1.41 MG/DL (0.60-1.30)
[2020-09-05 04:15] LABS: MAGNESIUM 1.8 MG/DL (1.6-2.4)
[2020-09-05] MEDS ORDERED: NS IV 500 ML 500 ML ONE (04:49)
--- NOTE | 2020-09-05 04:55 | ED Chest Pain ---
General Chief Complaint: Chest Pain Stated Complaint: CHEST PAIN Nursing Triage Note: ASSISTED PT VIA ED W/C TO ROOM #[address] [facility] WITH C/O CHEST DISCOMFORT. PT STATES HE AWOKE AT 0130 ON THIS DAY WITH R SIDED CHEST DISCOMFORT. 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 ARRIVES RATING CHEST DISCOMFORT 10/10 WITH SOA. AT SIDE. Nursing Sepsis Screen: No Definite Risk Source: patient Exam Limitations: no limitations History of Present Illness Date Seen by Provider: Sep 05, 2020 Time Seen by Provider: 03:38 Initial Comments Here with acute onset of chest pain to the right side rating into the right arm that started about 1:30 AM this morning. States pain is 10 out of 10. He did take 2 nitroglycerin sublingual and this did not help. Took his aspirin yesterday morning as he typically does. Is taking his meds as directed including Effient. He has had 4 stents placed in the last year and a half. Denies nausea, vomiting, sweating but does have chest discomfort with shortness of air. Also complains of right hip pain that he has been having taken care of over the last couple of days. Follows with Dr. Kerr and Dr. Gonsalez. 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 LAW PROFESSOR: Yes Associated Symptoms: No abdominal pain; back pain; No fever/chills; heartburn; No nausea/vomiting; shortness of breath, weakness Allergies and Home Medications Allergies Coded Allergies: No Known Drug Allergies (Unverified , 12/29/19) Home Medications Allopurinol 300 Mg Tablet, 300 MG PO DAILY, (Reported) Ascorbic Acid 500 Mg Tablet, 1,000 MG PO BID, (Reported) Aspirin 81 Mg Tablet.dr, 81 MG PO DAILY, (Reported) Baclofen 10 Mg Tablet, 10 MG PO TID PRN for SPASMS, (Reported) Carvedilol 3.125 Mg Tablet, 3.125 MG PO BID, (Reported) Cholecalciferol (Vitamin D3) 1,250 Mcg Capsule, 1,250 MCG PO DAILY, (Reported) Docusate Sodium 250 Mg Capsule, 250 MG PO HS, (Reported) Evolocumab 140 Mg/1 Ml Pen.injctr, 140 MG EVERY 2 WEEKS, (Reported) Fenofibrate,Micronized 134 Mg Capsule, 134 MG PO HS, (Reported) Fexofenadine HCl 180 Mg Tablet, 180 MG PO DAILY, (Reported) Furosemide 40 Mg Tablet, 40 MG PO DAILY, (Reported) Gabapentin 300 Mg Capsule, 300 MG PO AM, (Reported) Gabapentin 300 Mg Capsule, 1,500 MG PO HS, (Reported) TAKES 5 (300MG) CAPS Hydrocodone/Acetaminophen 1 Each Tablet, 1 EA PO BID PRN for PAIN-MODERATE (5- 7), (Reported) Hydroxyzine HCl 10 Mg Tablet, 10 MG PO Q6H PRN for ANXIETY, (Reported) Insulin Regular, Human 500 Unit/1 Ml Insuln.pen, 240 UNITS SC AC, (Reported) Isosorbide Mononitrate 30 Mg Tab.er.24h, 30 MG PO DAILY, (Reported) Lisinopril 10 Mg Tablet, 10 MG PO DAILY, (Reported) Magnesium Oxide 400 Mg Tablet, 400 MG PO BIDPC, (Reported) Montelukast Sodium 10 Mg Tablet, 10 MG PO HS, (Reported) Nitroglycerin 0.4 Mg Tab.subl, 0.4 MG SL UD PRN for CHEST PAIN, (Reported) Ashby-3 Acid Ethyl Esters 1 Gm Capsule, 2 GM PO BID, (Reported) TAKES 2 (1GM) CAPS Pantoprazole Sodium 40 Mg Tablet.dr, 40 MG PO BID, (Reported) Pediatric Multivit Comb No.136 1 Each Tab.chew, 2 TAB.CHEW PO DAILY, (Reported) Pitavastatin Calcium 4 Mg Tablet, 4 MG PO HS, (Reported) Prasugrel HCl 10 Mg Tablet, 10 MG PO DAILY, (Reported) Ubidecarenone 100 Mg Capsule, 100 MG PO DAILY, (Reported) TAKES ALONG WITH 200MG CAPSULE FOR A TOTAL DAILY DOSE OF 300MG Ubidecarenone 200 Mg Capsule, 200 MG PO DAILY, (Reported) TAKEA ALONG WITH 100MG CAPSULE FOR A TOTAL DAILY DOSE OF 300MG Zinc 50 Mg Tablet, 50 MG PO DAILY, (Reported) Patient Home Medication List Home Medication List Reviewed: Yes Review of Systems Review of Systems Constitutional: see HPI; No chills, No fever; weakness EENTM: No Symptoms Reported Respiratory: Denies Cough; Shortness of Air Cardiovascular: Chest Pain; Denies Edema; Lightheadedness Gastrointestinal: Denies Abdominal Pain, Denies Diarrhea; Nausea; Denies Vomiting Genitourinary: No Symptoms Reported Musculoskeletal: back pain, joint pain, muscle pain Skin: no symptoms reported All Other Systems Reviewed Negative Unless Noted: Yes Past Idlxdmn-Wgtbpq-Jlduhm Hx Past Med/Social Hx: Reviewed Nursing Past Med/Soc Hx Patient Social History Alcohol Use: Denies Use Number of Drinks Today: AA Alcohol Beverage of Choice: Beer Smoking Status: Never a Smoker Type Used: Smokeless Tobacco 2nd Hand Smoke Exposure: No Recent Infectious Disease Expo: No Recent Hopitalizations: No Immunizations Up To Date Tetanus Booster (TDap): Unknown PED Vaccines UTD: No Date of Pneumonia Vaccine: Mar 21, 2018 Date of Influenza Vaccine: Mar 05, 2020 Seasonal Allergies Seasonal Allergies: Yes Past Medical History Surgeries: Yes (CARDIAC CATH ) Abdominal, Adenoidectomy, Appendectomy, Cardiac, Coronary Stent, Gallbladder, Orthopedic, Tonsillectomy Respiratory: Yes Pneumonia, Sleep Apnea, COPD Currently Using CPAP: No (DOES NOT USE) Currently Using BIPAP: No Cardiac: Yes (NSTEMI 03/2019; STENTS X 4) Chronic Edema/Swelling, Coronary Artery Disease, Heart Attack, High Cholesterol, Hypertension Neurological: Yes Headaches /Migraines, Neuropathy Reproductive Disorders: No Sexually Transmitted Disease: No HIV/AIDS: No Genitourinary: Yes (CHRONIC RENAL INSUFFICIENCY) Kidney Stones, Renal Failure Gastrointestinal: Yes (SURGERY FOR BOWEL OBSTRUCTIONS/ADHESIONS;CHERYL FUNDOPLICATION;PENELOPE) Gastroesophageal Reflux, Obstructive Bowel, Hiatal Hernia, Gall Bladder Disease Musculoskeletal: Yes (MUJLTIPLE BACK SURGERIES; KNEE SURGERY; RIGHT ARM S URGERY) Degenerate Disk Disease, Arthritis, Fibromyalgia, Back Injury, Chronic Back Pain, Fractures, Gout Endocrine: Yes (OBESITY) Diabetes, Insulin dep HEENT: Yes (GLASSES) Tonsilitis Loss of Vision: Denies Hearing Impairment: Denies Cancer: No Psychosocial: Yes Anxiety, Depression Integumentary: No Blood Disorders: No Adverse Reaction/Blood Tranf: No (N/A) Family Medical History Reviewed Nursing Family Hx Abdominal aortic aneurysm 09 BROTHER Cancer 03 MOTHER Cancer of colon 03 MOTHER 09 SISTER 19 MOTHER FH: COPD (chronic obstructive pulmonary disease) 19 FATHER FH: leukemia 09 SISTER 19 MOTHER FHx: stroke 19 FATHER Family history: Diabetes mellitus 09 BROTHER 09 SISTER 09 SISTER 09 SISTER Family history: Gastrointestinal disease 03 MOTHER 09 BROTHER Cancer, Diabetes, Hypertension, Stroke SOCIAL HISTORY: -ETOH--HISTORY OF MODERATE TO HEAVY USE -DRUGS--DENIES USE -DENIES SMOKING, BUT HAS CHEWED TOBACCO PAST SURGICAL HISTORY: -CARDIAC CATHS--STENTS X 4 -EGD'S -COLONOSCOPIES/POLYPECTOMY -MULTIPLE BACK [id number] FUSION AND PLATES/RODS; NERVE STIMULATOR-REMOVED -LITHOTRIPSY -LEFT KNEE SCOPE/ACL REPAIR -WISDOM TEETH -TONSILLECTOMY/ADEONOIDECTOMY -APPENDECTOMY -CHOLECYSTECTOMY -ABDOMINAL LAPAROTOMY FOR BOWEL OBSTRUCTIONS/LYSIS OF ADHESIONS -VENTRAL HERNIA REPAIR -CHERYL FUNDOPLICATION -BILATERAL CARPAL TUNNEL -RIGHT WRIST FX/ORIF CARDIAC CATH 07/18/[address] NÚÑEZ: FINDINGS: Hemodynamics LV 135/15, end-diastolic pressure 15 Aorta 143/80 mean of 107 ANATOMY: Left Main is free of obstructive disease Left Anterior Descending is slightly tortuous, disease in a small diagonal branch, nonobstructive disease Ramus intermedius is moderate in size, has moderate to severe ostial stenosis, distally there is moderate disease Left Circumflex is moderate in size with small vessel disease in the distal circumflex artery nonobstructive disease Right Coronory Artery has diffuse ectasia, stent is patent the distal right coronary artery, small vessel disease distally LV Gram was not done, pressure was measured CONCLUSION: 1. Moderate to severe ostial ramus intermedius branch that is small to moderate in size. Distal disease, medical therapy is recommended 2. Tortuous LAD with moderate disease in a small diagonal artery that could be responsible for the chest pain 3. Diffuse ectasia in the right coronary artery with patent stent, small vessel disease distally 4. Small vessel disease in the circumflex artery distally 5. Normal left ventricular end-diastolic pressure DISCUSSION AND RECOMMENDATION: Medical therapy is recommended, no intervention is warranted Anesthesia Type: Conscious Sedation Estimated blood loss (mL): 25 ml Contrast Amount: 34 ml Total Radiation Dose: 550 mGy Post-Procedure Diagnosis Post-operative diagnosis: Unstable angina Coronary artery disease Hypertension Hyperlipidemia Coronary artery disease, patient had non-ST elevation myocardial infarction, underwent cardiac catheterization on April 11, 2019 revealing subtotal occlusion with diffuse ectasia in the distal right coronary artery, complex intervention requiring guide liner and multiple balloons, then deployment of Maday 423 mm stent with excellent results. Proximal RCA has diffuse ectasia with 50 percent stenosis, distal right PDA subtotally occluded, fairly small artery, will be treated medically. Severe stenosis at the distal circumflex artery with long lesion involving the obtuse marginal branch, proper circumflex and AV groove branch, all arteries are less than 2 mm in diameter. 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 Mild to moderate ectasia in LAD with mild to moderate disease diffusely, nonobstructive disease. Underwent cardiac catheterization on May 03, [address] Cartagena with 2.2532 mm Promus drug-eluting stent to the circumflex artery. Underwent repeat cardiac catheterization on May 21, 2019 revealing multivessel CAD with FFR confirmation of pqn-bajh-fzjboqmd disease in RCA and flow-limiting disease in mid LAD. [id number]-[id number] in proximal LAD. [id number] Synergy stent to mid LAD. Most recent cardiac catheterization done June 10, 2019 with 2.0x 12mm drug eluting [place] stent to first diagonal. Maintained on Effient and aspirin. Physical Exam Vital Signs Vital Signs - First Documented 09/05/20 03:38 Temp 36.5 Pulse 95 Resp 24 B/P (MAP) 140/90 (107) Pulse Ox 96 O2 Delivery Room Air Capillary Refill : Less Than 3 Seconds Height, Weight, BMI Height: 5'11.00" Weight: 260lbs. 8.0oz. 117.929303fi; 42.00 BMI Method:Stated General Appearance: No Apparent Distress, Moderate Distress, Obese HEENT: PERRL/EOMI, Pharynx Normal Neck: Non Tender, Supple Respiratory: Lungs Clear, Normal Breath Sounds Cardiovascular: No Murmur, Tachycardia Gastrointestinal: Non Tender, Soft Extremity: Normal Range of Motion, Non Tender Neurologic/Psychiatric: Alert, Oriented x3 Skin: Normal Color, Warm/Dry Progress/Results/Core Measures Results/Orders Lab Results Laboratory Tests Test 09/05/20 03:50 Range/Units White Blood Count 9.3 4.3-11.0 10^3/uL Red Blood Count 4.46 4.30-5.52 10^6/uL Hemoglobin 14.3 13.3-17.7 g/dL Hematocrit 44 40-54 % Mean Corpuscular Volume 99 80-99 fL Mean Corpuscular Hemoglobin 32 25-34 pg Mean Corpuscular Hemoglobin Concent 32 32-36 g/dL Red Cell Distribution Width 13.1 10.0-14.5 % Platelet Count 148 130-400 10^3/uL Mean Platelet Volume 11.0 9.0-12.2 fL Immature Granulocyte % (Auto) 0 % Neutrophils (%) (Auto) 68 42-75 % Lymphocytes (%) (Auto) 16 12-44 % Monocytes (%) (Auto) 11 0-12 % Eosinophils (%) (Auto) 4 0-10 % Basophils (%) (Auto) 1 0-10 % Neutrophils # (Auto) 6.3 1.8-7.8 10^3/uL Lymphocytes # (Auto) 1.5 1.0-4.0 10^3/uL Monocytes # (Auto) 1.0 0.0-1.0 10^3/uL Eosinophils # (Auto) 0.4 H 0.0-0.3 10^3/uL Basophils # (Auto) 0.1 0.0-0.1 10^3/uL Immature Granulocyte # (Auto) 0.0 0.0-0.1 10^3/uL Prothrombin Time 14.0 12.2-14.7 SEC INR Comment 1.0 0.8-1.4 Activated Partial Thromboplast Time 30 24-35 SEC D-Dimer 0.36 0.00-0.49 UG/ML Sodium Level 144 135-145 MMOL/L Potassium Level 4.1 3.6-5.0 MMOL/L Chloride Level 105 98-107 MMOL/L Carbon Dioxide Level 27 21-32 MMOL/L Anion Gap 12 5-14 MMOL/L Blood Urea Nitrogen 29 H 7-18 MG/DL Creatinine 1.41 H 0.60-1.30 MG/DL Estimat Glomerular Filtration Rate 52 BUN/Creatinine Ratio 21 Glucose Level 69 L 70-105 MG/DL Calcium Level 9.3 8.5-10.1 MG/DL Corrected Calcium 9.3 8.5-10.1 MG/DL Magnesium Level 1.8 1.6-2.4 MG/DL Total Bilirubin 0.5 0.1-1.0 MG/DL Aspartate Amino Transf (AST/SGOT) 41 H 5-34 U/L Alanine Aminotransferase (ALT/SGPT) 59 H 0-55 U/L Alkaline Phosphatase 72 40-136 U/L Myoglobin 143.0 H 10.0-92.0 NG/ML Troponin I < 0.028 <0.028 NG/ML Total Protein 7.1 6.4-8.2 GM/DL Albumin 4.0 3.2-4.5 GM/DL My Orders Orders - MAINE WONG MD Cbc With Automated Diff (09/05/20 03:49) Magnesium (09/05/20 03:49) Chest 1 View, Ap/Pa Only (09/05/20 03:49) Ekg Tracing (09/05/20 03:49) Comprehensive Metabolic Panel (09/05/20 03:49) Myoglobin Serum (09/05/20 03:49) Protime With Inr (09/05/20 03:49) Partial Thromboplastin Time (09/05/20 03:49) O2 (09/05/20 03:49) Monitor-Rhythm Ecg Trace Only (09/05/20 03:49) Lipid Panel (09/06/20 06:00) Ed Iv/Invasive Line Start (09/05/20 03:49) Fibrin Degradation Products (09/05/20 03:49) Troponin I (09/05/20 03:49) Aspirin Chewable Tablet (Baby Aspirin Ch (09/05/20 04:00) Morphine Injection (Morphine Injection (09/05/20 03:49) Lidocaine 2% Viscous 15 Ml (Xylocaine Vi (09/05/20 04:00) Antacid Suspension (Mylanta Suspension (09/05/20 04:00) Nitroglycerin 0.4 Mg Btl 25's (Nitrostat (09/05/20 05:00) Ns Iv 500 Ml (Sodium Chloride 0.9%) (09/05/20 05:00) Ns Iv 500 Ml (Sodium Chloride 0.9%) (09/05/20 04:49) Morphine 4mg Ivp (09/05/20 05:15) Zofran Iv (09/05/20 05:15) Medications Given in ED Current Medications Medications Dose Ordered Sig/Lamin Route Start Time Stop Time Status Last Admin Dose Admin Al Hydrox/Mg Hydrox/Simethicone 30 ml ONCE ONCE PO 09/05/20 04:00 09/05/20 04:01 DC 09/05/20 03:57 30 ML Aspirin 324 mg ONCE ONCE PO 09/05/20 04:00 09/05/20 04:01 DC 09/05/20 03:57 324 MG Lidocaine HCl 15 ml ONCE ONCE PO 09/05/20 04:00 09/05/20 04:01 DC 09/05/20 03:58 15 ML Nitroglycerin 0.4 mg UD PRN SL 09/05/20 05:00 09/05/20 04:56 0.4 MG Sodium Chloride 500 ml @ 0 mls/hr Q0M ONCE IV 09/05/20 05:00 09/05/20 05:01 DC 09/05/20 04:57 0 MLS/HR Vital Signs/I&O 09/05/20 09/05/20 03:38 03:38 Temp 36.5 Pulse 95 Resp 24 B/P (MAP) 140/90 (107) Pulse Ox 96 O2 Delivery Room Air Room Air Blood Pressure Mean: 107 Progress Progress Note : Progress Note Seen and evaluated. IV, labs, EKG and chest x-ray ordered. ASA 324 mg p.o. ordered. Morphine 4 mg IV ordered. Monitor patient. 0500: Patient still with chest pain but did have some relief with morphine. He did receive GI cocktail earlier as well. Pain is returned. Nitroglycerin sublingual x1. We were considering 2-hour rule out but patient has ongoing chest pain so will require admission. Dr. Núñez is his electrical helper. 0504: I did discuss the case with Dr. Gonsalez, on-call for hospitalist. She agrees to admission, observation status to the cardiac stepdown with consult to Dr. Núñez in the morning. Patient and family agree with plan. Initial ECG Impression Date: Sep 05, 2020 Initial ECG Impression Time: 03:38 Initial ECG Rate: 95 Initial ECG Rhythm: Normal Sinus Initial ECG Impression: Normal Initial ECG Comparisson: Unchanged Comment Sinus rhythm with normal axis. No evidence of ST elevation AR. Similar to previous of 08/21/2020. Interpreted by me. Diagnostic Imaging Diagonstic Imaging: Xray Plain Films/CT/US/NM/MRI: chest Comments Cardiomegaly without signs of failure. Departure Communication (Admissions) Time/Spoke to Admitting Phy: 05:04 Impression Primary Impression: Chest pain Qualified Codes: R07.9 - Chest pain, unspecified Disposition: HOME, SELF-CARE Condition: Stable Admissions Decision to Admit Reason: Admit from ER (General) Decision to Admit/Date: Sep 05, 2020 Time/Decision to Admit Time: 05:04 Departure-Patient Inst. Referrals: IRINEO GONSALEZ DO (PCP/Family) Primary Care Physician MAINE WONG MD Sep 05, 2020 04:55
[2020-09-05] MEDS ORDERED: NS IV 500 ML 500 ML IV ONE (05:00)
[2020-09-05] MEDS ORDERED: NITROGLYCERIN 0.4 MG SL TABS BTL 25'S SL PRN ×2 (05:00→06:00)
[2020-09-05] MEDS ORDERED: morphine INJ 10 MG/ML 1ML (SYR OR VIAL) IVP ONE (05:15)
[2020-09-05] MEDS ORDERED: ONDANSETRON 4 MG/2 ML (SDV) Z0FRAN IVP ONE (05:15)
[2020-09-05] MEDS ORDERED: NS IV 1000 ML 1,000 ML ONE (05:47)
[2020-09-05] MEDS ORDERED: morphine INJ 4 MG/ML 1 ML (VIAL/SYRINGE) IV PRN (06:00)
[2020-09-05] MEDS ORDERED: ONDANSETRON 4 MG/2 ML (SDV) Z0FRAN IVP PRN (06:00)
[2020-09-05] MEDS ORDERED: NS IV 1000 ML 1,000 ML IV SCH (06:00)
[2020-09-05] MEDS: inSUlin ASPART (NovoLOG) 1 UNIT/0.01 ML (CHARGE PER UNIT) SC SCH ×3 (06:22→16:25)
--- NOTE | 2020-09-05 07:19 | Diagnostic Imaging Report ---
INDICATION: Chest pain Upright portable chest shows normal heart size and vascularity. The lungs are clear. There is no effusion or pneumothorax. IMPRESSION: No acute abnormality is seen with no significant change from 08/21/2020. Dictated by: Dictated on workstation # [id number]
--- NOTE | 2020-09-05 08:02 | Consultation-Cardiology ---
HPI-Cardiology Cardiology Consultation Date of Consultation 09/05/20 Date of Admission Time Seen by Provider: 07:30 Indication: Chest pain HPI Cardiology was consulted for chest pain. Mr. Negron is a 54-year-old male who presented to the [facility] ED for chest pain. He has extensive cardiac history and is a patient of Dr. Koehler. Today, he woke up with chest pain around [id number] with centralized chest pain and associated nausea, vomiting, shortness of breath, and radiation to the right arm, and headache. He denies any blurred vision or diaphoresis. He recently had coronary stent placement in May 2019 and has been compliant with his Effient and daily aspirin since. He tried nitroglycerin at home without help. I n the ED, he was given nitroglycerin and aspirin without resolution of symptoms. The patient also admits to severe acid reflux and EGD pending with Dr. Armstrong. GI cocktail was given in the ED but did not subside. Morphine eventually helped the pain. Troponin in the ED is <0.028 but myoglobin of 143. EKG revealed sinus rhythm with normal axis, no evidence of ST elevation SC, similar to previous of 08/21/2020. He also is complaining of back/hip pain lasting for 1 week. He has been to a chiropractor for this but states it is not improving. He does have urinary hesitancy and history of kidney stones. Patient was seen and evaluated at 1400, he was on BiPAP, unresponsive. He was admitted earlier with chest pain, given morphine and placed on oxygen and given sublingual nitroglycerin. On my evaluation he was unresponsive. ABG appears to have hypercapnia, probably CO2 narcosis. Discussed with Dr. Pineda the management plan and patient was progressed to intubation Home Medications & Allergies Allergies: Coded Allergies: No Known Drug Allergies (Unverified , 12/29/19) Home Medication List Reviewed: Yes LHB-Fzziaj-Fgybcs Hx Patient Social History Marital Status: Recreational Drug Use: No Smoking Status: Never a Smoker Type Used: Smokeless Tobacco 2nd Hand Smoke Exposure: No Recent Hopitalizations: No Have you traveled recently?: No Alcohol Use?: Yes Immunizations Up To Date Tetanus Booster (TDap): Unknown Date of Pneumonia Vaccine: Mar 21, 2018 Date of Influenza Vaccine: Feb 29, 2020 Past Medical History RIAZ HTN DM2, insulin dependent HLD Hx of SC Family Medical History Significant Family History: Cancer, Diabetes, Hypertension, Stroke Family History: Abdominal aortic aneurysm 09 BROTHER Cancer 03 MOTHER Cancer of colon 03 MOTHER 09 SISTER 19 MOTHER FH: COPD (chronic obstructive pulmonary disease) 19 FATHER FH: leukemia 09 SISTER 19 MOTHER FHx: stroke 19 FATHER Family history: Diabetes mellitus 09 BROTHER 09 SISTER 09 SISTER 09 SISTER Family history: Gastrointestinal disease 03 MOTHER 09 BROTHER Review of Systems-General Review of Systems Constitutional: see HPI; No chills, No fever; weakness EENTM: No blurred vision, No double vision Respiratory: No cough; short of breath Cardiovascular: chest pain; No palpitations Gastrointestinal: nausea, vomiting Genitourinary: decreased output, hesitancy Musculoskeletal: back pain, joint pain, muscle pain Skin: no symptoms reported Psychiatric/Neurological: Headache All Other Systems Reviewed Negative Unless Noted: Yes Reviewed Test Results Reviewed Test Results Lab Laboratory Tests Test 09/05/20 03:50 Range/Units White Blood Count 9.3 4.3-11.0 10^3/uL Red Blood Count 4.46 4.30-5.52 10^6/uL Hemoglobin 14.3 13.3-17.7 g/dL Hematocrit 44 40-54 % Mean Corpuscular Volume 99 80-99 fL Mean Corpuscular Hemoglobin 32 25-34 pg Mean Corpuscular Hemoglobin Concent 32 32-36 g/dL Red Cell Distribution Width 13.1 10.0-14.5 % Platelet Count 148 130-400 10^3/uL Mean Platelet Volume 11.0 9.0-12.2 fL Immature Granulocyte % (Auto) 0 % Neutrophils (%) (Auto) 68 42-75 % Lymphocytes (%) (Auto) 16 12-44 % Monocytes (%) (Auto) 11 0-12 % Eosinophils (%) (Auto) 4 0-10 % Basophils (%) (Auto) 1 0-10 % Neutrophils # (Auto) 6.3 1.8-7.8 10^3/uL Lymphocytes # (Auto) 1.5 1.0-4.0 10^3/uL Monocytes # (Auto) 1.0 0.0-1.0 10^3/uL Eosinophils # (Auto) 0.4 H 0.0-0.3 10^3/uL Basophils # (Auto) 0.1 0.0-0.1 10^3/uL Immature Granulocyte # (Auto) 0.0 0.0-0.1 10^3/uL Prothrombin Time 14.0 12.2-14.7 SEC INR Comment 1.0 0.8-1.4 Activated Partial Thromboplast Time 30 24-35 SEC D-Dimer 0.36 0.00-0.49 UG/ML Sodium Level 144 135-145 MMOL/L Potassium Level 4.1 3.6-5.0 MMOL/L Chloride Level 105 98-107 MMOL/L Carbon Dioxide Level 27 21-32 MMOL/L Anion Gap 12 5-14 MMOL/L Blood Urea Nitrogen 29 H 7-18 MG/DL Creatinine 1.41 H 0.60-1.30 MG/DL Estimat Glomerular Filtration Rate 52 BUN/Creatinine Ratio 21 Glucose Level 69 L 70-105 MG/DL Calcium Level 9.3 8.5-10.1 MG/DL Corrected Calcium 9.3 8.5-10.1 MG/DL Magnesium Level 1.8 1.6-2.4 MG/DL Total Bilirubin 0.5 0.1-1.0 MG/DL Aspartate Amino Transf (AST/SGOT) 41 H 5-34 U/L Alanine Aminotransferase (ALT/SGPT) 59 H 0-55 U/L Alkaline Phosphatase 72 40-136 U/L Myoglobin 143.0 H 10.0-92.0 NG/ML Troponin I < 0.028 <0.028 NG/ML Total Protein 7.1 6.4-8.2 GM/DL Albumin 4.0 3.2-4.5 GM/DL Physical Exam Physical Exam Vital Signs Vital Signs - First Documented 09/05/20 09/05/20 09/05/20 03:38 05:00 15:09 Temp 36.5 Pulse 95 Resp 24 B/P (MAP) 140/90 (107) Pulse Ox 96 O2 Delivery Room Air O2 Flow Rate 2.00 FiO2 60 Capillary Refill : Less Than 3 Seconds Height, Weight, BMI Height: 5'11.00" Weight: 260lbs. 8.0oz. 117.205150zi; 42.12 BMI Method:Stated General Appearance: Moderate Distress, Obese HEENT: PERRL/EOMI, Pharynx Normal Neck: Non Tender, Supple Respiratory: Lungs Clear, Normal Breath Sounds Cardiovascular: Regular Rate, Rhythm, No Murmur, Tachycardia Gastrointestinal: Normal Bowel Sounds, Non Tender, Soft Extremity: Normal Range of Motion, Non Tender, No Pedal Edema Neurologic/Psychiatric: Alert, Oriented x3 Skin: Normal Color, Warm/Dry A/P-Cardiology Admission Diagnosis Chest pain Hypertension Hyperlipidemia Obstructive sleep apnea DM2, non-insulin dependent Assessment/Plan Acute respiratory failure, multifactorial, probably due to respiratory suppression from CO2 narcosis. Status post intubation, continue to monitor Chest pain, probably noncardiac, cardiac enzymes and EKG did not show any acute abnormality, chest pain is out of proportion from any cardiac event. Continue to monitor Coronary artery disease, patient had non-ST elevation myocardial infarction, underwent cardiac catheterization on April 11, 2019 revealing subtotal occlusion with diffuse ectasia in the distal right coronary artery, complex intervention requiring guide liner and multiple balloons, then deployment of Maday 423 mm stent with excellent results. Proximal RCA has diffuse ectasia with 50 percent stenosis, distal right PDA subtotally occluded, fairly small artery, will be treated medically. Severe s tenosis at the distal circumflex artery with long lesion involving the obtuse marginal branch, proper circumflex and AV groove branch, all arteries are less than 2 mm in diameter. 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 Mild to moderate ectasia in LAD with mild to moderate disease diffusely, nonobstructive disease. Underwent cardiac catheterization on May 03, [address] Cartagena with 2.2532 mm Promus drug-eluting stent to the circumflex artery. Underwent repeat cardiac catheterization on May 21, 2019 revealing multivessel CAD with FFR confirmation of uet-etow-opnhccta disease in RCA and flow-limiting disease in mid LAD. [id number]-[id number] in proximal LAD. [id number] Synergy stent to mid LAD. Cardiac catheterization done June 10, 2019 with 2.0x 12mm drug eluting Cristopher stent to first diagonal. Maintained on Effient and aspirin. Cardiac cath performed by Dr. Núñez on July 18, 2020 revealed moderate to severe ostial ramus intermedius branch that is small to moderate in size. Distal disease, medical therapy is recommended, tortuous LAD with moderate disease in a small diagonal artery that could be responsible for the chest pain, diffuse ectasia in the right coronary artery with patent stent, small vessel disease distally, small vessel disease in the circumflex artery distally, normal left ventricular end-diastolic pressure. Hypertension, continue home medications. Monitor closely. Hyperlipidemia, continue pitavastatin, fenofibrate. Repatha as outpatient. DM2, insulin dependent. Per primary team. RIAZ, noncompliant with BiPAP. Working on referral to [facility] in [place], [place]. Nighttime BiPAP. Monitor closely. Right hip/back pain, per primary team. Tobaccoism, recommend complete cessation. Extensive family history of heart disease and stroke. Clinical Quality Measures AMI/AHF: ASA po Prior to arrival: No Supervisory-Addendum Brief Verification & Attestation Participated in pt care: history, MDM, physical Personally performed: exam, history, MDM, supervision of care Care discussed with: Medical Student Procedures: n/a Results interpretation: Verified all documentation Verification and Attestation of Medical Student E/M Service A medical student performed and documented this service in my presence. I reviewed and verified all information documented by the medical student and made modifications to such information, when appropriate. I personally performed the physical exam and medical decision making. Few modifications to the note were made using italic font Mary Núñez, Sep 05, 2020,15:55 KIMMY JIM, Sep 05, 2020 8:02 am MARY NÚÑEZ MD Sep 05, 2020 3:56 pm
[2020-09-05] MEDS ORDERED: LIDOCAINE 1% INJ 20 ML 20 ML VIAL ONE (08:29)
[2020-09-05] MEDS ORDERED: HEParin (CATH LAB) 0 ML IV ONE (08:29)
[2020-09-05] MEDS: ASPIRIN E.C. 81 MG (ECOTRIN) TAB PO SCH (08:33)
[2020-09-05 09:53] LABS: AMYLASE 35 U/L (25-125); LIPASE 26 U/L (8-78)
[2020-09-05 10:17] LABS: ABG BASE EXCESS 4.6 MMOL/L (-2.5-2.5); ABG OXYGEN SATURATION 87 % (94-100); ABG PCO2 63 MMHG (35-45); ABG PO2 57 MMHG (79-93); ABG TCO2 32.6 MMOL/L (21.0-31.0)
[2020-09-05 10:19] LABS: ABG PH 7.31 (7.37-7.43); ALLENS TEST POSITIVE; INSPIRED O2 4 L; VENTILATOR NO
[2020-09-05 10:20] LABS: PATIENT TEMP 36.6
--- NOTE | 2020-09-05 10:43 | History & Physical ---
JANET EMERY, MED STUDENT 09/05/20 1043: History of Present Illness History of Present Illness Reason for visit/HPI Tarun Negron is a 54 y/o M w/ PMH of CAD s/p stenting in 2019, esophageal stricture s/p dilation in 2019, RIAZ on CPAP presenting for chest pain. Mr. Negron was recently admitted to the ICU for ACS r/o 2 weeks ago. Mr. Negron started having chest pain 2-3 am this morning which was localized to his central chest and described as a burning sensation radiating to his back and right arm. He denies any associated shortness of breath, sweating. He was given nitroglycerin in the ED which did not help the chest pain. Morphine and the GI cocktail he received in the ED did help the chest pain. Mr. Negron this morning is also complaining of right sided abdominal pain that also radiates to his back. The pain is also described as a burning sensation that is hard to localize. This morning initially Mr. Negron was alert, oriented, and answering questions appropriately but later in the morning he was found to be somnolent. Overnight, he had refused his CPAP and was found to be having apneic episodes where his O2 saturation was dropping into the 40s. He was started on 4L O2 mask which helped his saturations. Date of Admission Sep 05, 2020 at 05:05 Date Seen by a Provider: Sep 05, 2020 I consulted on this patient on 09/05/20 10:37 Attending Physician Pat Gonsalez DO Admitting Physician Pat Gonsalez DO Consult Allergies and Home Medications Allergies Coded Allergies: No Known Drug Allergies (Unverified , 12/29/19) Home Medications Allopurinol 300 Mg Tablet, 300 MG PO DAILY, (Reported) Last Action: Reviewed Ascorbic Acid 500 Mg Tablet, 1,000 MG PO BID, (Reported) Last Action: Reviewed Aspirin 81 Mg Tablet.dr, 81 MG PO DAILY, (Reported) Last Action: Reviewed Baclofen 10 Mg Tablet, 10 MG PO TID PRN for SPASMS, (Reported) Last Action: Reviewed Carvedilol 3.125 Mg Tablet, 3.125 MG PO BID, (Reported) Last Action: Reviewed Cholecalciferol (Vitamin D3) 1,250 Mcg Capsule, 1,250 MCG PO DAILY, (Reported) Last Action: Reviewed Docusate Sodium 250 Mg Capsule, 250 MG PO HS, (Reported) Last Action: Reviewed Evolocumab 140 Mg/1 Ml Pen.injctr, 140 MG EVERY 2 WEEKS, (Reported) Last Action: Reviewed Fenofibrate,Micronized 134 Mg Capsule, 134 MG PO HS, (Reported) Last Action: Reviewed Fexofenadine HCl 180 Mg Tablet, 180 MG PO DAILY, (Reported) Last Action: Reviewed Furosemide 40 Mg Tablet, 40 MG PO DAILY, (Reported) Last Action: Reviewed Gabapentin 300 Mg Capsule, 300 MG PO AM, (Reported) Last Action: Reviewed Gabapentin 300 Mg Capsule, 1,500 MG PO HS, (Reported) TAKES 5 (300MG) CAPS Last Action: Reviewed Hydrocodone/Acetaminophen 1 Each Tablet, 1 EA PO BID PRN for PAIN-MODERATE (5- 7), (Reported) Last Action: Reviewed Hydroxyzine HCl 10 Mg Tablet, 10 MG PO Q6H PRN for ANXIETY, (Reported) Last Action: Reviewed Insulin Regular, Human 500 Unit/1 Ml Insuln.pen, 240 UNITS SC AC, (Reported) Last Action: Reviewed Isosorbide Mononitrate 30 Mg Tab.er.24h, 30 MG PO DAILY, (Reported) Last Action: Reviewed Lisinopril 10 Mg Tablet, 10 MG PO DAILY, (Reported) Last Action: Reviewed Magnesium Oxide 400 Mg Tablet, 400 MG PO BIDPC, (Reported) Last Action: Reviewed Montelukast Sodium 10 Mg Tablet, 10 MG PO HS, (Reported) Last Action: Reviewed Multivit-Minerals/Folic Acid 200 Mcg Tab.chew, 400 MCG PO DAILY, (Reported) Last Action: Reviewed Nitroglycerin 0.4 Mg Tab.subl, 0.4 MG SL UD PRN for CHEST PAIN, (Reported) Last Action: Reviewed Anderson-3 Acid Ethyl Esters 1 Gm Capsule, 2 GM PO BID, (Reported) TAKES 2 (1GM) CAPS Last Action: Reviewed Pantoprazole Sodium 40 Mg Tablet.dr, 40 MG PO BID, (Reported) Last Action: Reviewed Pitavastatin Calcium 4 Mg Tablet, 4 MG PO HS, (Reported) Last Action: Reviewed Prasugrel HCl 10 Mg Tablet, 10 MG PO DAILY, (Reported) Last Action: Reviewed Ubidecarenone 100 Mg Capsule, 100 MG PO DAILY, (Reported) TAKES ALONG WITH 200MG CAPSULE FOR A TOTAL DAILY DOSE OF 300MG Last Action: Reviewed Ubidecarenone 200 Mg Capsule, 200 MG PO DAILY, (Reported) TAKEA ALONG WITH 100MG CAPSULE FOR A TOTAL DAILY DOSE OF 300MG Last Action: Reviewed Zinc 50 Mg Tablet, 50 MG PO DAILY, (Reported) Last Action: Reviewed Past Rybtebp-Mhfjdy-Dxdgfw Hx Patient Social History Marrital Status: Alcohol Beverage of Choice: Beer Smoking Status: Never a Smoker 2nd Hand Smoke Exposure: No Recent Hopitalizations: No Have you traveled recently?: No Alcohol Use?: Yes Pt feels they are or have been: No Immunizations Up To Date Tetanus Booster (TDap): Unknown Pediatric: No Date of Pneumonia Vaccine: Mar 21, 2018 Date of Influenza Vaccine: Feb 29, 2020 Seasonal Allergies Seasonal Allergies: Yes Surgeries Yes (CARDIAC CATH ) Abdominal, Adenoidectomy, Appendectomy, Cardiac, Coronary Stent, Gallbladder, Orthopedic, Tonsillectomy Respiratory Yes COPD, Pneumonia, Sleep Apnea Currently Using CPAP: No (DOES NOT USE) Currently Using BIPAP: No Cardiovascular Yes (NSTEMI 03/2019; STENTS X 4) Chronic Edema/Swelling, Coronary Artery Disease, Heart Attack, High Cholesterol, Hypertension Neurological Yes Headaches /Migraines, Neuropathy Reproductive System Hx Reproductive Disorders: No Sexually Transmitted Disease: No HIV/AIDS: No Genitourinary Yes (CHRONIC RENAL INSUFFICIENCY) Kidney Stones, Renal Failure Gastrointestinal Yes (SURGERY FOR BOWEL OBSTRUCTIONS/ADHESIONS;CHERYL FUNDOPLICATION;PENELOPE) Gastroesophageal Reflux, Obstructive Bowel, Hiatal Hernia, Gall Bladder Disease Musculoskeletal Yes (MUJLTIPLE BACK SURGERIES; KNEE SURGERY; RIGHT ARM SURGERY) Degenerate Disk Disease, Arthritis, Fibromyalgia, Back Injury, Chronic Back Pain, Fractures, Gout Endocrine History of Endocrine Disorders: Yes (OBESITY) Endocrine Disorders: Diabetes, Insulin dep HEENT History of HEENT Disorders: Yes (GLASSES) HEENT Disorders: Tonsilitis Loss of Vision: Denies Hearing Impairment: Denies Cancer No Psychosocial History of Psychiatric Problem: Yes Behavioral Health Disorders: Anxiety, Depression Integumentary History of Skin or Integumenta: No Blood Transfusions History of Blood Disorders: No Adverse Reaction to a Blood Tr: No (N/A) Family Medical History Significant Family History: Cancer, Diabetes, Hypertension, Stroke Other Significan Family Hx: SOCIAL HISTORY: -ETOH--HISTORY OF MODERATE TO HEAVY USE -DRUGS--DENIES USE -DENIES SMOKING, BUT HAS CHEWED TOBACCO PAST SURGICAL HISTORY: -CARDIAC CATHS--STENTS X 4 -EGD'S -COLONOSCOPIES/POLYPECTOMY -MULTIPLE BACK [id number] FUSION AND PLATES/RODS; NERVE STIMULATOR-REMOVED -LITHOTRIPSY -LEFT KNEE SCOPE/ACL REPAIR -WISDOM TEETH -TONSILLECTOMY/ADEONOIDECTOMY -APPENDECTOMY -CHOLECYSTECTOMY -ABDOMINAL LAPAROTOMY FOR BOWEL OBSTRUCTIONS/LYSIS OF ADHESIONS -VENTRAL HERNIA REPAIR -CHERYL FUNDOPLICATION -BILATERAL CARPAL TUNNEL -RIGHT WRIST FX/ORIF CARDIAC CATH 07/18/[address] NÚÑEZ: FINDINGS: Hemodynamics LV 135/15, end-diastolic pressure 15 Aorta 143/80 mean of 107 ANATOMY: Left Main is free of obstructive disease Left Anterior Descending is slightly tortuous, disease in a small diagonal branch, nonobstructive disease Ramus intermedius is moderate in size, has moderate to severe ostial stenosis, distally there is moderate disease Left Circumflex is moderate in size with small vessel disease in the distal circumflex artery nonobstructive disease Right Coronory Artery has diffuse ectasia, stent is patent the distal right coronary artery, small vessel disease distally LV Gram was not done, pressure was measured CONCLUSION: 1. Moderate to severe ostial ramus intermedius branch that is small to moderate in size. Distal disease, medical therapy is recommended 2. Tortuous LAD with moderate disease in a small diagonal artery that could be responsible for the chest pain 3. Diffuse ectasia in the right coronary artery with patent stent, small vessel disease distally 4. Small vessel disease in the circumflex artery distally 5. Normal left ventricular end-diastolic pressure DISCUSSION AND RECOMMENDATION: Medical therapy is recommended, no intervention is warranted Anesthesia Type: Conscious Sedation Estimated blood loss (mL): 25 ml Contrast Amount: 34 ml Total Radiation Dose: 550 mGy Post-Procedure Diagnosis Post-operative diagnosis: Unstable angina Coronary artery disease Hypertension Hyperlipidemia Coronary artery disease, patient had non-ST elevation myocardial infarction, underwent cardiac catheterization on April 11, 2019 revealing subtotal occlusion with diffuse ectasia in the distal right coronary artery, complex intervention requiring guide liner and multiple balloons, then deployment of Maday 423 mm stent with excellent results. Proximal RCA has diffuse ectasia with 50 percent stenosis, distal right PDA subtotally occluded, fairly small artery, will be treated medically. Severe stenosis at the distal circumflex artery with long lesion involving the obtuse marginal branch, proper circumflex and AV groove branch, all arteries are less than 2 mm in diameter. 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 Mild to moderate ectasia in LAD with mild to moderate disease diffusely, nonobstructive disease. Underwent cardiac catheterization on May 03, [address] Cartagnea with 2.2532 mm Promus drug-eluting stent to the circumflex artery. Underwent repeat cardiac catheterization on May 21, 2019 revealing multivessel CAD with FFR confirmation of [id number] disease in RCA and flow-limiting disease in mid LAD. [id number] in proximal LAD. [id number] Synergy stent to mid LAD. Most recent cardiac catheterization done June 10, 2019 with 2.0x 12mm drug eluting Cristopher stent to first diagonal. Maintained on Effient and aspirin. Family Hx: Abdominal aortic aneurysm 09 BROTHER Cancer 03 MOTHER Cancer of colon 03 MOTHER 09 SISTER 19 MOTHER FH: COPD (chronic obstructive pulmonary disease) 19 FATHER FH: leukemia 09 SISTER 19 MOTHER FHx: stroke 19 FATHER Family history: Diabetes mellitus 09 BROTHER 09 SISTER 09 SISTER 09 SISTER Family history: Gastrointestinal disease 03 MOTHER 09 BROTHER Review of Systems Constitutional: No no symptoms reported, No see HPI, No chills, No diaphoresis, No dizziness, No fever, No malaise, No weakness, No weight gain, No weight loss, No other EENTM: No see HPI, No no symptoms reported, No ear discharge, No hearing loss, No ear pain, No blurred vision, No double vision, No eye pain, No tearing, No vision loss, No dental problems, No hoarseness, No mouth pain, No mouth swelling, No epistaxis, No nose congestion, No nose pain, No throat pain, No throat swelling, No other Respiratory: No no symptoms reported, No see HPI, No cough, No dyspnea on exertion, No hemoptysis, No orthopnea, No phlegm, No stridor, No wheezing, No other Cardiovascular: chest pain Gastrointestinal: No RUQ, No LUQ, No RLQ, No LLQ, No no symptoms reported, No see HPI; abdominal pain (RUQ); No constipation, No diarrhea, No dysphagia, No hematemesis, No heartburn, No jaundice, No loss of appetite, No melena, No nausea, No vomiting, No other Genitourinary: No no symptoms reported, No see HPI, No decreased output, No discharge, No dysuria, No frequency, No hematuria, No hesitancy, No incontinence, No nocturia, No pain, No other Musculoskeletal: back pain, joint pain Skin: change in color (abdomen over heparin injection sites), rash Physical Exam Vital Signs Vital Signs - First Documented 09/05/20 09/05/20 03:38 05:00 Temp 36.5 Pulse 95 Resp 24 B/P (MAP) 140/90 (107) Pulse Ox 96 O2 Delivery Room Air O2 Flow Rate 2.00 Capillary Refill : Less Than 3 Seconds Height, Weight, BMI Height: 5'11.00" Weight: 260lbs. 8.0oz. [id number]; 42.12 BMI Method:Stated General Appearance: Moderate Distress, Obese Eyes: Bilateral Eye Normal Inspection, Bilateral Eye EOMI Neck: Full Range of Motion, Normal Inspection Respiratory: Lungs Clear, Normal Breath Sounds, Accessory Muscle Use Cardiovascular: Regular Rate, Rhythm, No Edema, No Gallop, No Murmur, Normal Peripheral Pulses Gastrointestinal: Normal Bowel Sounds, No Organomegaly, No Pulsatile Mass, Non Tender, Soft Rectal: Deferred Back: Normal Inspection Extremity: Normal Capillary Refill, Normal Range of Motion, Non Tender, No Calf Tenderness Neurologic/Psychiatric: Other (Somnolent) Skin: Ecchymosis (lower abdomen over heparin injection site) Assessment/Plan Assessment and Plan Mr. Tarun Negron is a 54 y/o M w/ PMH of CAD, esophageal strictures, and RIAZ presenting for chest pain and alerted mental status #Chest pain - Unclear if chest pain or abdominal pain - EKG unremarkable - Troponins negative - D-dimer negative - Cardiology consult pending - Cath 2 months ago -> negative significant coronary disease s/p stenting 2 years ago - CTA 2 months ago -> negative for PEs - EGD schedule w/ GI for later in August - Already had previous appendectomy Plan: > Amylase/lipase > RUQ US > Cardiology consult for ACS r/o > Hold morphine > GI cocktail > Continue aspirin 81mg > Fluids #AMS - Somnolent later this morning w/ difficulty staying awake - Refused CPAP overnight - ABG 7.31/63/57/31 - 4L O2 mask Plan: > admit to ICU > BiPAP > Likely 2/2 to RIAZ > Fluids > Hold morphine #DM - Sliding scale insuline Plan: > Monitor blood sugars #HTN - 133/89 Plan: > Continue DINING ROOM HOSTESS meds #HLD Plan: >Continue DINING ROOM HOSTESS meds #Hip pain - Continue to monitor Plan: > Hold morphine for decreased respiratory function > Hold NSAIDs for poor baseline renal function > Can consider tylenol use Dispo: Admit to ICU Clinical Quality Measures AMI/AHF: ASA po Prior to arrival: PAT Simmons DO 09/06/20 0539: History of Present Illness History of Present Illness Reason for visit/HPI CC: Chest pain HPI: This is a very complex 59yo[facility] clinic Pt of mine with severe RIAZ unable to tolerate CPAP or BiPAP, was in discussion about trach possibility, sent to [facility] to work on that with a past medical history of CAD, previous stents in the past last year, but cardiac cath clean, just small vessel disease two months ago, who presented to the ER with chest pain. Upon my assessment, he was very lethargic, suspicion for CO2 narcosis, at the bedside concurred. Moved him to the ICU and his ABG showed hypercapneic hypoxic acute on chronic respiratory failure, placed on BiPAP and consulted Dr. Pineda. He was unable to provide any details about any of his issues. Date of Admission 09/05/20 Time Seen by a Provider: 09:00 Allergies and Home Medications Allergies Coded Allergies: No Known Drug Allergies (Unverified , 12/29/19) Home Medications Allopurinol 300 Mg Tablet, 300 MG PO DAILY, (Reported) Last Action: Reviewed Ascorbic Acid 500 Mg Tablet, 1,000 MG PO BID, (Reported) Last Action: Reviewed Aspirin 81 Mg Tablet., 81 MG PO DAILY, (Reported) Last Action: Reviewed Baclofen 10 Mg Tablet, 10 MG PO TID PRN for SPASMS, (Reported) Last Action: Reviewed Carvedilol 3.125 Mg Tablet, 3.125 MG PO BID, (Reported) Last Action: Reviewed Cholecalciferol (Vitamin D3) 1,250 Mcg Capsule, 1,250 MCG PO DAILY, (Reported) Last Action: Reviewed Docusate Sodium 250 Mg Capsule, 250 MG PO HS, (Reported) Last Action: Reviewed Evolocumab 140 Mg/1 Ml Pen.injctr, 140 MG EVERY 2 WEEKS, (Reported) Last Action: Reviewed Fenofibrate,Micronized 134 Mg Capsule, 134 MG PO HS, (Reported) Last Action: Reviewed Fexofenadine HCl 180 Mg Tablet, 180 MG PO DAILY, (Reported) Last Action: Reviewed Furosemide 40 Mg Tablet, 40 MG PO DAILY, (Reported) Last Action: Reviewed Gabapentin 300 Mg Capsule, 300 MG PO AM, (Reported) Last Action: Reviewed Gabapentin 300 Mg Capsule, 1,500 MG PO HS, (Reported) TAKES 5 (300MG) CAPS Last Action: Reviewed Hydrocodone/Acetaminophen 1 Each Tablet, 1 EA PO BID PRN for PAIN-MODERATE (5- 7), (Reported) Last Action: Reviewed Hydroxyzine HCl 10 Mg Tablet, 10 MG PO Q6H PRN for ANXIETY, (Reported) Last Action: Reviewed Insulin Regular, Human 500 Unit/1 Ml Insuln.pen, 240 UNITS SC AC, (Reported) Last Action: Reviewed Isosorbide Mononitrate 30 Mg Tab.er.24h, 30 MG PO DAILY, (Reported) Last Action: Reviewed Lisinopril 10 Mg Tablet, 10 MG PO DAILY, (Reported) Last Action: Reviewed Magnesium Oxide 400 Mg Tablet, 400 MG PO BIDPC, (Reported) Last Action: Reviewed Montelukast Sodium 10 Mg Tablet, 10 MG PO HS, (Reported) Last Action: Reviewed Multivit-Minerals/Folic Acid 200 Mcg Tab.chew, 400 MCG PO DAILY, (Reported) Last Action: Reviewed Nitroglycerin 0.4 Mg Tab.subl, 0.4 MG SL UD PRN for CHEST PAIN, (Reported) Last Action: Reviewed Anderson-3 Acid Ethyl Esters 1 Gm Capsule, 2 GM PO BID, (Reported) TAKES 2 (1GM) CAPS Last Action: Reviewed Pantoprazole Sodium 40 Mg Tablet.dr, 40 MG PO BID, (Reported) Last Action: Reviewed Pitavastatin Calcium 4 Mg Tablet, 4 MG PO HS, (Reported) Last Action: Reviewed Prasugrel HCl 10 Mg Tablet, 10 MG PO DAILY, (Reported) Last Action: Reviewed Ubidecarenone 100 Mg Capsule, 100 MG PO DAILY, (Reported) TAKES ALONG WITH 200MG CAPSULE FOR A TOTAL DAILY DOSE OF 300MG Last Action: Reviewed Ubidecarenone 200 Mg Capsule, 200 MG PO DAILY, (Reported) TAKEA ALONG WITH 100MG CAPSULE FOR A TOTAL DAILY DOSE OF 300MG Last Action: Reviewed Zinc 50 Mg Tablet, 50 MG PO DAILY, (Reported) Last Action: Reviewed Patient Home Medication List Home Medication List Reviewed: Yes Past Kvurtcb-Rhjbst-Qhswto Hx Patient Social History Marrital Status: Employed/Student: unemployed Smoking Status: Never a Smoker Alcohol Use?: No Seasonal Allergies Seasonal Allergies: Yes Surgeries Yes Orthopedic Respiratory Yes Chronic Bronchitis, COPD, Pneumonia, Sleep Apnea Currently Using CPAP: No Currently Using BIPAP: No Cardiovascular Coronary Artery Disease, High Cholesterol, Hypertension Neurological Yes Neuropathy Genitourinary Benign Prostatic Hyperpl, Bladder Infection, Renal Failure Gastrointestinal Yes Chronic Constipation Musculoskeletal Yes Degenerate Disk Disease, Arthritis, Gout Endocrine Endocrine Disorders: Diabetes, Insulin dep HEENT History of HEENT Disorders: No Cancer No Family Medical History Family Hx: Abdominal aortic aneurysm 09 BROTHER Cancer 03 MOTHER Cancer of colon 03 MOTHER 09 SISTER 19 MOTHER FH: COPD (chronic obstructive pulmonary disease) 19 FATHER FH: leukemia 09 SISTER 19 MOTHER FHx: stroke 19 FATHER Family history: Diabetes mellitus 09 BROTHER 09 SISTER 09 SISTER 09 SISTER Family history: Gastrointestinal disease 03 MOTHER 09 BROTHER Review of Systems Constitutional: see HPI, malaise, weakness Respiratory: short of breath Cardiovascular: chest pain Physical Exam General Appearance: WD/WN, Chronically ill, Moderate Distress, Obese, Other (confused) Eyes: Bilateral Eye Normal Inspection, Bilateral Eye PERRL, Bilateral Eye EOMI HEENT: PERRL/EOMI, Normal ENT Inspection, Pharynx Normal Neck: Full Range of Motion, Normal Inspection, Non Tender, Supple, Carotid Bruit Respiratory: Chest Non Tender, No Respiratory Distress, Accessory Muscle Use, Decreased Breath Sounds, Wheezing Cardiovascular: Regular Rate, Rhythm, No Edema, No Gallop, No JVD, No Murmur, Normal Peripheral Pulses Gastrointestinal: Normal Bowel Sounds, No Organomegaly, No Pulsatile Mass, Non Tender, Soft Back: Normal Inspection, No CVA Tenderness, No Vertebral Tenderness Extremity: Normal Capillary Refill, Normal Inspection, Normal Range of Motion, Non Tender, No Calf Tenderness, No Pedal Edema Neurologic/Psychiatric: Alert, No Motor/Sensory Deficits, Normal Mood/Affect, Disoriented, Other (Somnolent) Skin: Normal Color, Warm/Dry Lymphatic: No Adenopathy Assessment/Plan Assessment and Plan Assessment: Acute on chronic hypercapenic hypoxic respiratory failure Chest pain CAD RIAZ severe unable to tolerate biPAP and CPAP HTN CRI DM HLP Chronic pain Plan: ICU transfer ABG Dr Miriam Núñez Problems: (1) Acute on chronic respiratory failure with hypoxia and hypercapnia Admission Diagnosis Admission Status: Inpatient Order (span 2 midnights) Reason for Inpatient Admission: VDRF Supervisory-Addendum Brief Verification & Attestation Participated in pt care: history, MDM, physical Personally performed: exam, history, MDM, supervision of care Care discussed with: Medical Student Procedures: n/a Results interpretation: Verified all documentation Verification and Attestation of Medical Student E/M Service A medical student performed and documented this service in my presence. I reviewed and verified all information documented by the medical student and made modifications to such information, when appropriate. I personally performed the physical exam and medical decision making. Pat Gonsalez, Sep 06, 2020,05:39 JANET EMERY, MED STUDENT Sep 05, 2020 10:43 PAT GONSALEZ DO Sep 06, 2020 05:39
[2020-09-05] MEDS ORDERED: DexMEDEtomidine 250 ML DRIP 250 ML IV SCH (10:45)
--- NOTE | 2020-09-05 12:37 | Diagnostic Imaging Report ---
PROCEDURE: US Abdomen, limited. TECHNIQUE: Multiple Real-time grayscale images were obtained over the abdomen in various projections. INDICATION: Elevated liver enzymes. FINDINGS: The study is compromised due to the patient's large body habitus and overlying bowel gas. The liver is enlarged at approximately 22-23 cm. There is increased echogenicity to the liver, consistent with hepatic steatosis. No discrete liver mass is detected. The gallbladder is surgically absent. No intrahepatic biliary ductal dilatation is seen. The extrahepatic bile duct is obscured. The pancreas, aorta, and IVC are obscured. The right kidney is grossly unremarkable. No hydronephrosis is seen. There is no ascites. IMPRESSION: Compromised exam. There is hepatomegaly and hepatic steatosis. No other significant abnormality is detected. Dictated by: Dictated on workstation # [id number]
[2020-09-05] MEDS ORDERED: MULT200T12 PO (13:13)
[2020-09-05 14:07] LABS: ABG BASE EXCESS 5.1 MMOL/L (-2.5-2.5); ABG OXYGEN SATURATION 95 % (94-100); ABG PCO2 63 MMHG (35-45); ABG PO2 73 MMHG (79-93); ABG TCO2 33.2 MMOL/L (21.0-31.0)
[2020-09-05 14:09] LABS: ABG PH 7.31 (7.37-7.43)
[2020-09-05 14:10] LABS: ALLENS TEST YES-POS; INSPIRED O2 40% BIPAP; PATIENT TEMP 96.8; VENTILATOR NO
[2020-09-05] MEDS ORDERED: PROPOFOL DRIP (ICU) 100 ML IV ONE (14:17)
[2020-09-05] MEDS ORDERED: proPOfol 200 MG/20 ML (DIPRIVAN) VIAL IV ONE (14:17)
[2020-09-05] MEDS ORDERED: fentaNYL DRIP PRE-MIX 250 ML IV ONE (15:01)
--- NOTE | 2020-09-05 15:05 | Pulmonary Procedures ---
Pulmonary Procedures Date of Procedure Date of Service: Sep 05, 2020 Reason for Intubation: acute respiratory failure Time of Intubation: 15:04 Intubation Method: orotracheal Tube Size: 8 Medications: Propofol, Rocuronium, Versed Positive End Tide CO2: Yes Breath Sounds after Intubation: bilateral-equal Intubation Complications: no complications Post Intubation Xray: Yes BIANCA CARR DO Sep 05, 2020 15:05
--- NOTE | 2020-09-05 15:15 | Pulmonary Consultation ---
History of Present Illness History of Present Illness Date Seen by Provider: Sep 05, 2020 Time Seen by Provider: 15:08 Date of Admission Reason for Visit: Chest pain History of Present Illness 54yo with hx of CAD with hx of stent placement, RIAZ, morbid obesity presented to ED secondary to acute right sided chest pain that woke him up at 0130. He took 2 SL nitro prior to ED arrival which helped some. Upon Arrival pt was complaining of 10/10 CP radiation to right arm. Pt refused BiPAP last night and then this morning became lethargic. Pt was found to have acute respiratory acidosis and transferred to ICU. Lethargy and C02 narcosis continued to worsen. Pt was i ntubated after failing BiPAP treatment. Allergies and Home Medications Allergies Coded Allergies: No Known Drug Allergies (Unverified , 12/29/19) Home Medications Allopurinol 300 Mg Tablet, 300 MG PO DAILY, (Reported) Ascorbic Acid 500 Mg Tablet, 1,000 MG PO BID, (Reported) Aspirin 81 Mg Tablet.dr, 81 MG PO DAILY, (Reported) Baclofen 10 Mg Tablet, 10 MG PO TID PRN for SPASMS, (Reported) Carvedilol 3.125 Mg Tablet, 3.125 MG PO BID, (Reported) Cholecalciferol (Vitamin D3) 1,250 Mcg Capsule, 1,250 MCG PO DAILY, (Reported) Docusate Sodium 250 Mg Capsule, 250 MG PO HS, (Reported) Evolocumab 140 Mg/1 Ml Pen.injctr, 140 MG EVERY 2 WEEKS, (Reported) Fenofibrate,Micronized 134 Mg Capsule, 134 MG PO HS, (Reported) Fexofenadine HCl 180 Mg Tablet, 180 MG PO DAILY, (Reported) Furosemide 40 Mg Tablet, 40 MG PO DAILY, (Reported) Gabapentin 300 Mg Capsule, 300 MG PO AM, (Reported) Gabapentin 300 Mg Capsule, 1,500 MG PO HS, (Reported) TAKES 5 (300MG) CAPS Hydrocodone/Acetaminophen 1 Each Tablet, 1 EA PO BID PRN for PAIN-MODERATE (5- 7), (Reported) Hydroxyzine HCl 10 Mg Tablet, 10 MG PO Q6H PRN for ANXIETY, (Reported) Insulin Regular, Human 500 Unit/1 Ml Insuln.pen, 240 UNITS SC AC, (Reported) Isosorbide Mononitrate 30 Mg Tab.er.24h, 30 MG PO DAILY, (Reported) Lisinopril 10 Mg Tablet, 10 MG PO DAILY, (Reported) Magnesium Oxide 400 Mg Tablet, 400 MG PO BIDPC, (Reported) Montelukast Sodium 10 Mg Tablet, 10 MG PO HS, (Reported) Multivit-Minerals/Folic Acid 200 Mcg Tab.chew, 400 MCG PO DAILY, (Reported) Nitroglycerin 0.4 Mg Tab.subl, 0.4 MG SL UD PRN for CHEST PAIN, (Reported) [place]-3 Acid Ethyl Esters 1 Gm Capsule, 2 GM PO BID, (Reported) TAKES 2 (1GM) CAPS Pantoprazole Sodium 40 Mg Tablet.dr, 40 MG PO BID, (Reported) Pitavastatin Calcium 4 Mg Tablet, 4 MG PO HS, (Reported) Prasugrel HCl 10 Mg Tablet, 10 MG PO DAILY, (Reported) Ubidecarenone 100 Mg Capsule, 100 MG PO DAILY, (Reported) TAKES ALONG WITH 200MG CAPSULE FOR A TOTAL DAILY DOSE OF 300MG Ubidecarenone 200 Mg Capsule, 200 MG PO DAILY, (Reported) TAKEA ALONG WITH 100MG CAPSULE FOR A TOTAL DAILY DOSE OF 300MG Zinc 50 Mg Tablet, 50 MG PO DAILY, (Reported) Past Quewdbc-Edjekg-Ejqqix Hx Past Med/Social Hx: Reviewed Nursing Past Med/Soc Hx Patient Social History Alcohol Use: Denies Use Number of Drinks Today: AA Alcohol Beverage of Choice: Beer Smoking Status: Never a Smoker Type Used: Smokeless Tobacco 2nd Hand Smoke Exposure: No Recent Infectious Disease Expo: No Recent Hopitalizations: No Have you traveled recently?: No Alcohol Use?: Yes Immunizations Up To Date Tetanus Booster (TDap): Unknown PED Vaccines UTD: No Date of Pneumonia Vaccine: Mar 21, 2018 Date of Influenza Vaccine: Feb 29, 2020 Seasonal Allergies Seasonal Allergies: Yes Past Medical History Surgeries: Yes (CARDIAC CATH ) Abdominal, Adenoidectomy, Appendectomy, Cardiac, Coronary Stent, Gallbladder, Orthopedic, Tonsillectomy Respiratory: Yes Pneumonia, Sleep Apnea, COPD Currently Using CPAP: No (DOES NOT USE) Currently Using BIPAP: No Cardiac: Yes (NSTEMI 03/2019; STENTS X 4) Chronic Edema/Swelling, Coronary Artery Disease, Heart Attack, High Cholesterol, Hypertension Neurological: Yes Headaches /Migraines, Neuropathy Reproductive Disorders: No Sexually Transmitted Disease: No HIV/AIDS: No Genitourinary: Yes (CHRONIC RENAL INSUFFICIENCY) Kidney Stones, Renal Failure Gastrointestinal: Yes (SURGERY FOR BOWEL OBSTRUCTIONS/ADHESIONS;CHERYL FUNDOPLICATION;PENELOPE) Gastroesophageal Reflux, Obstructive Bowel, Hiatal Hernia, Gall Bladder Disease Musculoskeletal: Yes (MUJLTIPLE BACK SURGERIES; KNEE SURGERY; RIGHT ARM SURGERY) Degenerate Disk Disease, Arthritis, Fibromyalgia, Back Injury, Chronic Back Pain, Fractures, Gout Endocrine: Yes (OBESITY) Diabetes, Insulin dep HEENT: Yes (GLASSES) Tonsilitis Loss of Vision: Denies Hearing Impairment: Denies Cancer: No Psychosocial: Yes Anxiety, Depression Integumentary: No Blood Disorders: No Adverse Reaction/Blood Tranf: No (N/A) Family Medical History Reviewed Nursing Family Hx Abdominal aortic aneurysm 09 BROTHER Cancer 03 MOTHER Cancer of colon 03 MOTHER 09 SISTER 19 MOTHER FH: COPD (chronic obstructive pulmonary disease) 19 FATHER FH: leukemia 09 SISTER 19 MOTHER FHx: stroke 19 FATHER Family history: Diabetes mellitus 09 BROTHER 09 SISTER 09 SISTER 09 SISTER Family history: Gastrointestinal disease 03 MOTHER 09 BROTHER Cancer, Diabetes, Hypertension, Stroke SOCIAL HISTORY: -ETOH--HISTORY OF MODERATE TO HEAVY USE -DRUGS--DENIES USE -DENIES SMOKING, BUT HAS CHEWED TOBACCO PAST SURGICAL HISTORY: -CARDIAC CATHS--STENTS X 4 -EGD'S -COLONOSCOPIES/POLYPECTOMY -MULTIPLE BACK [id number] FUSION AND PLATES/RODS; NERVE STIMULATOR-REMOVED -LITHOTRIPSY -LEFT KNEE SCOPE/ACL REPAIR -WISDOM TEETH -TONSILLECTOMY/ADEONOIDECTOMY -APPENDECTOMY -CHOLECYSTECTOMY -ABDOMINAL LAPAROTOMY FOR BOWEL OBSTRUCTIONS/LYSIS OF ADHESIONS -VENTRAL HERNIA REPAIR -CHERYL FUNDOPLICATION -BILATERAL CARPAL TUNNEL -RIGHT WRIST FX/ORIF CARDIAC CATH 07/18/[address] RODRÍGUEZ: FINDINGS: Hemodynamics LV 135/15, end-diastolic pressure 15 Aorta 143/80 mean of 107 ANATOMY: Left Main is free of obstructive disease Left Anterior Descending is slightly tortuous, disease in a small diagonal branch, nonobstructive disease Ramus intermedius is moderate in size, has moderate to severe ostial stenosis, distally there is moderate disease Left Circumflex is moderate in size with small vessel disease in the distal circumflex artery nonobstructive disease Right Coronory Artery has diffuse ectasia, stent is patent the distal right coronary artery, small vessel disease distally LV Gram was not done, pressure was measured CONCLUSION: 1. Moderate to severe ostial ramus intermedius branch that is small to moderate in size. Distal disease, medical therapy is recommended 2. Tortuous LAD with moderate disease in a small diagonal artery that could be responsible for the chest pain 3. Diffuse ectasia in the right coronary artery with patent stent, small vessel disease distally 4. Small vessel disease in the circumflex artery distally 5. Normal left ventricular end-diastolic pressure DISCUSSION AND RECOMMENDATION: Medical therapy is recommended, no intervention is warranted Anesthesia Type: Conscious Sedation Estimated blood loss (mL): 25 ml Contrast Amount: 34 ml Total Radiation Dose: 550 mGy Post-Procedure Diagnosis Post-operative diagnosis: Unstable angina Coronary artery disease Hypertension Hyperlipidemia Coronary artery disease, patient had non-ST elevation myocardial infarction, underwent cardiac catheterization on April 11, 2019 revealing subtotal occlusion with diffuse ectasia in the distal right coronary artery, complex intervention requiring guide liner and multiple balloons, then deployment of Maday 423 mm stent with excellent results. Proximal RCA has diffuse ectasia with 50 percent stenosis, distal right PDA subtotally occluded, fairly small artery, will be treated medically. Severe stenosis at the distal circumflex artery with long lesion involving the obtuse marginal branch, proper circumflex and AV groove branch, all arteries are less than 2 mm in diameter. 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 Mild to moderate ectasia in LAD with mild to moderate disease diffusely, nonobstructive disease. Underwent cardiac catheterization on May 03, [address] Cartagena with 2.2532 mm Promus drug-eluting stent to the circumflex artery. Underwent repeat cardiac catheterization on May 21, 2019 revealing multivessel CAD with FFR confirmation of uqw-jefa-ggvylgdv disease in RCA and flow-limiting disease in mid LAD. Guf-lhyu-hdhfbkzz in proximal LAD. [id number] Synergy stent to mid LAD. Most recent cardiac catheterization done June 10, 2019 with 2.0x 12mm drug eluting [place] stent to first diagonal. Maintained on Effient and aspirin. Review of Systems Time Seen by Provider: 06:16 Sepsis Event Evaluation Height, Weight, BMI Height: 5'11.00" Weight: 260lbs. 8.0oz. 117.471227rm; 42.12 BMI Method:Stated Exam Exam Vital Signs Date Time Temp Pulse Resp B/P (MAP) Pulse Ox O2 Delivery O2 Flow Rate FiO2 09/05/20 14:02 89 18 92 40.00 09/05/20 14:00 90 18 155/97 (116) 93 NIV Bilevel 40.00 09/05/20 13:00 89 15 158/99 (118) 93 NIV Bilevel 40.00 09/05/20 12:36 93 09/05/20 12:00 91 18 133/90 (104) 93 NIV Bilevel 40.00 09/05/20 11:41 36.5 09/05/20 11:00 105 18 126/74 (91) 95 NIV Bilevel 40.00 09/05/20 10:51 97 19 91 35.00 09/05/20 07:39 36.4 93 12 126/82 (97) 98 OxyMask 4.00 09/05/20 07:22 OxyMask 4.00 09/05/20 07:00 81 09/05/20 06:56 OxyMask 4.00 09/05/20 06:52 94 Nasal Cannula 2.00 09/05/20 06:15 78 13 133/89 (104) 86 Nasal Cannula 2.00 09/05/20 06:00 93 17 141/78 (99) 94 Nasal Cannula 2.00 09/05/20 05:58 36.4 96 18 132/85 (101) 94 Nasal Cannula 2.00 09/05/20 05:55 86 09/05/20 05:31 36.5 93 20 122/81 (107) 93 Nasal Cannula 2.00 09/05/20 05:00 90 Nasal Cannula 2.00 09/05/20 03:38 36.5 95 24 140/90 (107) 96 Room Air 09/05/20 03:38 Room Air I & O 09/05/20 07:00 Intake Total 500 ml Balance 500 ml Height & Weight Height: 5'11.00" Weight: 260lbs. 8.0oz. 117.622080go; 42.12 BMI Method:Stated General Appearance: Moderate Distress, Obese HEENT: PERRL/EOMI, Pharynx Normal Neck: Full Range of Motion, Normal Inspection Respiratory: Lungs Clear, Normal Breath Sounds, Accessory Muscle Use Cardiovascular: Regular Rate, Rhythm, No Edema, No Gallop, No Murmur, Normal Peripheral Pulses Capillary Refill: Less Than 3 Seconds Extremity: Normal Capillary Refill, Normal Range of Motion, Non Tender, No Calf Tenderness Neurologic/Psychiatric: Other (Somnolent) Skin: Ecchymosis (lower abdomen over heparin injection site) Results Lab Laboratory Tests 09/05/20 03:50 Assessment/Plan Assessment/Plan Acute on chronic respiratory failure r/o DVT -Pt failed BiPAP therapy -Will proceed with intubation. -DDImer is negative -Check Bilateral dopplers -IF CR is improved tomorrow will check CTA of chest -Check Echo -Start theraputic dose Lovenox Morbid obesity with RIAZ -Pt was refusing BiPAP last night Acute CP -Cardiology consulted -Troponin negative thus far Tobacco dependance -Education DM -Monitor -SSI HTN BIANCA CARR DO Sep 05, 2020 15:15
[2020-09-05] MEDS ORDERED: ENOXAPARIN 80 MG/0.8 ML (LOVENOX) SYR SC SCH (15:30)
--- NOTE | 2020-09-05 15:31 | Diagnostic Imaging Report ---
INDICATION: Intubation. EXAMINATION: Frontal chest was obtained at 3:08 p.m. COMPARISON: Same day at 4:07 a.m. There is a new ET tube in place tip overlying the mid trachea. NG tube is visualized with tip overlying mid stomach. There is cardiomegaly. There is some infiltrate or atelectasis in the left base with obscuration of the left hemidiaphragm. There is no pneumothorax. IMPRESSION: New ET tube and NG tube, as above. Cardiomegaly with some left basilar atelectatic change or infiltrate. Dictated by: Dictated on workstation # [id number]
[2020-09-05] MEDS: ENOXAPARIN 300 MG/3 ML (LOVENOX) MULTI-DOSE VIAL SQ SCH (16:25)
[2020-09-05] MEDS: fentaNYL DRIP PRE-MIX 250 ML IV SCH ×3 (16:26→23:42)
[2020-09-05] MEDS: PROPOFOL DRIP (ICU) 100 ML IV SCH ×4 (16:28→22:37)
[2020-09-05 16:32] LABS: ABG BASE EXCESS 4.8 MMOL/L (-2.5-2.5); ABG OXYGEN SATURATION 95 % (94-100); ABG PCO2 38 MMHG (35-45); ABG PH 7.48 (7.37-7.43); ABG PO2 69 MMHG (79-93); ABG TCO2 29.7 MMOL/L (21.0-31.0)
[2020-09-05] MEDS: LACTATED RINGERS 1,000 ML IV SCH ×2 (16:38→23:08)
--- NOTE | 2020-09-05 16:39 | Diagnostic Imaging Report ---
PROCEDURE: US Venous Lower Ext Alberto. TECHNIQUE: Multiple real-time grayscale images were obtained over the lower extremities in various projections, bilaterally. Additional duplex Doppler and color Doppler images were also obtained. INDICATION: Chest pain, shortness of breath The veins of the lower extremities have good color filling and compressibility. There is phasic flow and normal response to augmentation. IMPRESSION: Negative venous Doppler of the lower extremities Dictated by: Dictated on workstation # [id number]
[2020-09-05 16:40] LABS: ALLENS TEST POS; INSPIRED O2 50%; VENTILATOR YES
[2020-09-05] MEDS ORDERED: ROCURONIUM 10 MG/ML 5 ML SYRINGE IV ONE (20:23)
[2020-09-05] MEDS ORDERED: MIDAZOLAM 5 MG/5 ML (VERSED) VIAL IJ ONE (20:23)
[2020-09-05 22:19] LABS: BILIRUBIN,URINE NEGATIVE (NEGATIVE); CLARITY,URINE CLEAR; COLOR,URINE YELLOW; GLUCOSE, URINE (UA) NEGATIVE (NEGATIVE); KETONES,URINE TRACE (NEGATIVE); LEUKOCYTE ESTERASE ,URINE 1+ (NEGATIVE); NITRITE,URINE NEGATIVE (NEGATIVE); PROTEIN,URINE 2+ (NEGATIVE)
[2020-09-05 22:28] LABS: BACTERIA,URINE MODERATE /HPF
[2020-09-06] VITALS (30 sets, daily range): BP systolic 116–154; BP diastolic 69–91
[2020-09-06] MEDS: inSUlin ASPART (NovoLOG) 1 UNIT/0.01 ML (CHARGE PER UNIT) SC SCH ×5 (00:10→23:40)
[2020-09-06] MEDS: PROPOFOL DRIP (ICU) 100 ML IV SCH ×7 (01:42→22:12)
[2020-09-06 02:49] LABS: ABG BASE EXCESS 3.9 MMOL/L (-2.5-2.5); ABG OXYGEN SATURATION 96 % (94-100); ABG PCO2 38 MMHG (35-45); ABG PH 7.48 (7.37-7.43); ABG PO2 77 MMHG (79-93); ABG TCO2 28.5 MMOL/L (21.0-31.0)
[2020-09-06 02:56] LABS: ALLENS TEST YES-POS; INSPIRED O2 40%; PATIENT TEMP 37.1; VENTILATOR YES
[2020-09-06] MEDS: fentaNYL DRIP PRE-MIX 250 ML IV SCH ×5 (03:45→23:33)
[2020-09-06] MEDS: ENOXAPARIN 300 MG/3 ML (LOVENOX) MULTI-DOSE VIAL SQ SCH ×2 (03:55→17:05)
[2020-09-06 03:56] LABS: BASOPHILS % (AUTO) 1 % (0-10); EOSINOPHILS # (AUTO) 0.2 10^3/uL (0.0-0.3); EOSINOPHILS % (AUTO) 3 % (0-10); HEMATOCRIT 42 % (40-54); HEMOGLOBIN 13.4 g/dL (13.3-17.7); LYMPHOCYTES # (AUTO) 1.8 10^3/uL (1.0-4.0); LYMPHOCYTES % (AUTO) 23 % (12-44); MEAN CORPUSCULAR HEMOGLOBIN 32 pg (25-34); MEAN CORPUSCULAR HGB CONC 32 g/dL (32-36); MEAN CORPUSCULAR VOLUME 101 fL (80-99); MEAN PLATELET VOLUME 12.3 fL (9.0-12.2); MONOCYTES # (AUTO) 0.8 10^3/uL (0.0-1.0); MONOCYTES % (AUTO) 10 % (0-12); NEUTROPHILS # (AUTO) 5.1 10^3/uL (1.8-7.8); NEUTROPHILS % (AUTO) 64 % (42-75); PLATELET COUNT 140 10^3/uL (130-400)
[2020-09-06 04:10] LABS: CALCIUM 8.5 MG/DL (8.5-10.1); CREATININE SERUM 1.28 MG/DL (0.60-1.30); MAGNESIUM 1.7 MG/DL (1.6-2.4); PHOSPHORUS 2.3 MG/DL (2.3-4.7)
--- NOTE | 2020-09-06 04:43 | Pulmonary Progress Note ---
Subjective Time Seen by a Provider: 04:49 Subjective/Events-last exam Pt is sedated on vent. Sepsis Event Evaluation Height, Weight, BMI Height: 5'11.00" Weight: 260lbs. 8.0oz. 117.138298ir; 42.12 BMI Method:Stated Exam Exam Vital Signs Date Time Temp Pulse Resp B/P (MAP) Pulse Ox O2 Delivery O2 Flow Rate FiO2 09/06/20 03:49 36.9 09/06/20 03:49 92 Mechanical Ventilator 40 09/06/20 03:00 80 25 116/72 (87) 91 Mechanical Ventilator 40.00 09/06/20 02:18 81 26 91 40 09/06/20 02:00 82 26 118/70 (86) 92 Mechanical Ventilator 40.00 09/06/20 01:42 82 120/73 09/06/20 01:00 84 25 119/73 (88) 91 Mechanical Ventilator 40.00 09/06/20 01:00 85 09/06/20 00:00 82 25 120/73 (89) 92 Mechanical Ventilator 40.00 09/05/20 23:45 92 Mechanical Ventilator 40 09/05/20 23:44 37.1 09/05/20 23:00 81 25 119/75 (90) 91 Mechanical Ventilator 40.00 09/05/20 22:37 81 112/71 09/05/20 22:06 81 26 92 40 09/05/20 22:00 81 25 114/72 (86) 92 Mechanical Ventilator 40.00 09/05/20 21:00 79 25 117/70 (86) 92 Mechanical Ventilator 40.00 09/05/20 20:00 81 25 116/77 (90) 92 Mechanical Ventilator 40.00 09/05/20 20:00 92 Mechanical Ventilator 40 09/05/20 19:52 79 118/80 09/05/20 19:49 79 118/80 09/05/20 19:34 37.2 09/05/20 19:00 80 09/05/20 19:00 80 24 112/74 (87) 92 Mechanical Ventilator 40.00 09/05/20 18:29 78 26 93 40 09/05/20 18:00 78 25 116/78 (91) 96 Mechanical Ventilator 50.00 09/05/20 17:53 124/94 09/05/20 17:00 73 26 108/70 (83) 95 Mechanical Ventilator 50.00 09/05/20 16:28 121/82 09/05/20 16:15 98 Mechanical Ventilator 80 09/05/20 16:00 83 11 118/77 (91) 94 Mechanical Ventilator 50.00 09/05/20 15:17 36.2 09/05/20 15:15 92 25 138/95 (109) 94 Mechanical Ventilator 50.00 09/05/20 15:09 99 26 94 60 09/05/20 14:02 89 18 92 40.00 09/05/20 14:00 90 18 155/97 (116) 93 NIV Bilevel 40.00 09/05/20 13:00 89 15 158/99 (118) 93 NIV Bilevel 40.00 09/05/20 12:36 93 09/05/20 12:00 91 18 133/90 (104) 93 NIV Bilevel 40.00 09/05/20 11:41 36.5 09/05/20 11:30 NIV Bilevel 40 09/05/20 11:00 105 18 126/74 (91) 95 NIV Bilevel 40.00 09/05/20 10:51 97 19 91 35.00 09/05/20 07:39 36.4 93 12 126/82 (97) 98 OxyMask 4.00 09/05/20 07:22 OxyMask 4.00 09/05/20 07:00 81 09/05/20 06:56 OxyMask 4.00 09/05/20 06:52 94 Nasal Cannula 2.00 09/05/20 06:15 78 13 133/89 (104) 86 Nasal Cannula 2.00 09/05/20 06:00 93 17 141/78 (99) 94 Nasal Cannula 2.00 09/05/20 05:58 36.4 96 18 132/85 (101) 94 Nasal Cannula 2.00 09/05/20 05:55 86 09/05/20 05:31 36.5 93 20 122/81 (107) 93 Nasal Cannula 2.00 09/05/20 05:00 90 Nasal Cannula 2.00 I & O 09/06/20 07:00 Intake Total 0 ml Output Total 1370 ml Balance -1370 ml Height & Weight Height: 5'11.00" Weight: 260lbs. 8.0oz. 117.088313kh; 42.12 BMI Method:Stated General Appearance: No Apparent Distress, Obese, Other (Sedated on vent ) HEENT: PERRL/EOMI, Pharynx Normal Neck: Non Tender, Supple Respiratory: Lungs Clear, Normal Breath Sounds Cardiovascular: Regular Rate, Rhythm, No Murmur, Tachycardia Capillary Refill: Less Than 3 Seconds Extremity: Normal Range of Motion, Non Tender, No Pedal Edema Neurologic/Psychiatric: Alert, Oriented x3 Skin: Normal Color, Warm/Dry Results Lab Laboratory Tests 09/05/20 03:50 09/06/20 02:25 Assessment/Plan Assessment/Plan Acute on chronic respiratory failure r/o DVT -Vent 470, 26, 10 -Intubated 09/03 -Decrease Vt 450, RR 24, Peep 5 -ABG 1hr after -Will plan on weaning vent tomorrow morning if still appears to be improving . --Propofol is at 50, fentanyl at 300 -Add precedex and wean propofol down -Check CTA this morning. -CT this morning reviewed-- shows atelectasis and bilateral infiltrates. PCT is also elevated. -Will start Zosyn and continue to monitor -Will proceed with intubation. -Check Bilateral dopplers -IF CR is improved tomorrow will check CTA of chest -Check Echo -Start theraputic dose Lovenox Stage 1 diastolic CHF with EF 55-65% -Monitor Morbid obesity with RIAZ -Pt was refusing BiPAP last night Acute CP -Cardiology consulted -Troponin negative thus far Tobacco dependance -Education DM -Monitor -SSI HTN BIANCA CARR DO Sep 06, 2020 04:43
[2020-09-06] MEDS: LACTATED RINGERS 1,000 ML IV SCH ×3 (05:49→18:39)
[2020-09-06] MEDS ORDERED: PIPERACILLIN/TAZO 4.5 GM VIAL (ZOSYN) IV ONE (05:58)
[2020-09-06] MEDS ORDERED: NS 100 ML (IVPB) BAG IV ONE (06:00)
[2020-09-06] MEDS ORDERED: PIPERACILLIN/TAZOBACTAM (BULK) 4.5 GM in NS (IVPB) 100 ML IV SCH (06:00)
[2020-09-06] MEDS ORDERED: HOLD METFORMIN - RECEIVED CONTRAST 20 ML VIAL IV SCH (06:00)
[2020-09-06] MEDS ORDERED: IOHEXOL 350 MG/ML 100 ML (OMNIPAQUE 350) VIAL IV ONE (06:00)
[2020-09-06] MEDS: methylPREDNISolone 40 MG/ML (Solu-MEDROL) VIAL IV SCH ×4 (06:19→23:33)
[2020-09-06] MEDS: MAGNESIUM 1 GM/100 ML IVPB 100 ML IV SCH ×2 (06:19→07:58)
[2020-09-06] MEDS ORDERED: RT-ALBUTEROL/IPRATROPIUM 3 ML (DUONEB) VIAL ONE ×2 (06:39→10:20)
[2020-09-06] MEDS ORDERED: aCETylcysteine 20% (MUCOMYST) 30ML SOLN VIAL ONE ×2 (06:40→10:42)
--- NOTE | 2020-09-06 06:53 | Diagnostic Imaging Report ---
EXAMINATION: CT angiography of the chest. TECHNIQUE: Contrast enhanced thin section helical images were obtained through the chest with intravenous contrast timed for the optimal opacification of the arterial structures per CTA protocol. Post-processing, reconstructions and interpretation of angiographic images of the vessels was performed. 3D MIP reconstructions were performed and reviewed. All CT scans use one or more of the following dose optimizing techniques: automated exposure control, MA and/or KvP adjustment based on a patient size and exam type, or iterative reconstruction. HISTORY: Shortness of breath, chest pain, ventilated. COMPARISON: CTA chest 07/14/2020 FINDINGS: Vascular: No filling defects are seen within the pulmonary arteries. The thoracic aorta is normal in caliber. Thyroid: The thyroid is normal. Mediastinum: Heart size is normal without significant pericardial effusion. No suspicious lymphadenopathy. Lungs and airways: Low lung volumes bilaterally with bibasilar consolidation. No pleural effusion or pneumothorax. An endotracheal tube is present with the tip above the donis. There are mild air bronchograms within the lung bases. Upper abdomen: The gallbladder is surgically absent. Enteric catheter is present with the tip located within the stomach. Musculoskeletal: Degenerative changes of the spine without suspicious osseous lesion or compression fracture. Partially visualized cervical fusion hardware. IMPRESSION: 1. No findings of pulmonary embolus. 2. Consolidation within the bilateral lower lobes concerning for multifocal pneumonia or aspiration. Atelectasis could have a similar appearance. 3. Agree with preliminary interpretation. Dictated by: Dictated on workstation # [id number]
[2020-09-06] MEDS: ASPIRIN E.C. 81 MG (ECOTRIN) TAB PO SCH (07:57)
[2020-09-06] MEDS ORDERED: SODIUM PHOSPHATE INJ 30 MM in NS (IVPB) 250 ML INJ ONE (08:00)
--- NOTE | 2020-09-06 08:49 | Cardiology Progress Note ---
Subjective Date Seen by Provider: Sep 06, 2020 Time Seen by Provider: 08:47 Subjective/Events-last exam Patient is sedated and intubated Review of Systems General: Other (Unable to provide review of system) Objective-Cardiology Exam Last Set of Vital Signs Vital Signs 09/06/20 09/06/20 09/06/20 09/06/20 07:00 07:57 07:58 08:00 Temp 36.4 Pulse 83 Resp 23 B/P (MAP) 124/78 Pulse Ox 90 O2 Delivery Mechanical Ventilator O2 Flow Rate 60.00 FiO2 60 Capillary Refill : Less Than 3 Seconds I&O Intake and Output 09/06/20 00:00 Intake Total 500 ml Output Total 1170 ml Balance -670 ml Intake Oral 0 ml IV Total 500 ml Output Urine Total 1170 ml Daily Weight Change No General: Other (Sedated and intubated) HEENT: Atraumatic, PERRLA Neck: Supple Lungs: Clear to Auscultation, Normal Air Movement Heart: Regular Rate, Normal S1, Normal S2 Abdomen: Normal Bowel Sounds Extremities: No Clubbing Skin: No Rashes Neuro: Other (Sedated and intubated) Psych/Mental Status: Other (Sedated and intubated) Results Lab Laboratory Tests 09/06/20 02:25 A/P-Cardiology Admission Diagnosis Chest pain Hypertension Hyperlipidemia Obstructive sleep apnea DM2, non-insulin dependent Assessment/Plan Acute respiratory failure, multifactorial, probably due to respiratory suppression from CO2 narcosis and CT scan suggestive of pneumonia, ventilator dependent, managed by primary care team. Chest pain, probably noncardiac, cardiac enzymes and EKG did not show any acute abnormality, chest pain is out of proportion from any cardiac event. Continue to monitor Coronary artery disease, patient had non-ST elevation myocardial infarction, underwent cardiac catheterization on April 11, 2019 revealing subtotal occlusion with diffuse ectasia in the distal right coronary artery, complex intervention requiring guide liner and multiple balloons, then deployment of Maday 423 mm stent with excellent results. Proximal RCA has diffuse ectasia with 50 percent stenosis, distal right PDA subtotally occluded, fairly small artery, will be treated medically. Severe stenosis at the distal circumflex artery with long lesion involving the obtuse marginal branch, proper circumflex and AV groove branch, all arteries are less than 2 mm in diameter. 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 Mild to moderate ectasia in LAD with mild to moderate disease diffusely, nonobstructive disease. Underwent cardiac catheterization on May 03, [address] Cartagena with 2.2532 mm Promus drug-eluting stent to the circumflex ar drake. Underwent repeat cardiac catheterization on May 21, 2019 revealing m ultivessel CAD with FFR confirmation of sma-tdsi-dzttdfey disease in RCA and flow-limiting disease in mid LAD. Pea-cicg-sfttkrhx in proximal LAD. [id number] Synergy stent to mid LAD. Cardiac catheterization done June 10, 2019 with 2.0x 12mm drug eluting [place] stent to first diagonal. Maintained on Effient and aspirin. Cardiac cath performed by Dr. Núñez on July 18, 2020 revealed moderate to severe ostial ramus intermedius branch that is small to moderate in size. Distal disease, medical therapy is recommended, tortuous LAD with moderate disease in a small diagonal artery that could be responsible for the chest pain, diffuse ectasia in the right coronary artery with patent stent, small vessel disease distally, small vessel disease in the circumflex artery distally, normal left ventricular end-diastolic pressure. Hypertension, monitor blood pressure Hyperlipidemia, continue pitavastatin, fenofibrate. Repatha as outpatient. DM2, insulin dependent. Per primary team. RIAZ, noncompliant with BiPAP. Working on referral to [facility] in [place], [place]. Nighttime BiPAP. Monitor closely. Right hip/back pain, per primary team. Tobaccoism, recommend complete cessation. Extensive family history of heart disease and stroke. Clinical Quality Measures AMI/AHF: ASA po Prior to arrival: No ROSS NÚÑEZ MD Sep 06, 2020 08:49
[2020-09-06] MEDS ORDERED: PANTOPRAZOLE 40 MG (PROTONIX) VIAL IV SCH (09:00)
--- NOTE | 2020-09-06 09:06 | Diagnostic Imaging Report ---
INDICATION: Ventilator support and chest pain. Time of exam: 3:36 AM Correlation is made with prior chest one day earlier. Support lines and catheters remain in place. Heart is enlarged. Lungs are clear. No infiltrate or failure is seen. There is no effusion or pneumothorax. IMPRESSION: Cardiomegaly. No acute cardiopulmonary process is detected. Dictated by: Dictated on workstation # [id number]
[2020-09-06] MEDS: PIPERACILLIN/TAZOBACTAM (BULK) 4.5 GM in NS (IVPB) 100 ML IV SCH ×2 (11:36→19:56)
--- NOTE | 2020-09-06 11:59 | Progress Note ---
JANET EMERY, MED STUDENT 09/06/20 1159: Subjective Subjective/Events-last exam Patient refused BiPaP overnight and was intubated overnight. This morning, patient was intubated and sedated on propofol. He does not arouse to voice or contact and does not follow commands. Objective Exam Last Set of Vital Signs Vital Signs Date Time Temp Pulse Resp B/P (MAP) Pulse Ox O2 Delivery O2 Flow Rate FiO2 09/06/20 11:36 77 133/83 09/06/20 11:00 24 90 Mechanical Ventilator 60.00 09/06/20 10:38 60 09/06/20 07:58 36.4 Capillary Refill : Less Than 3 Seconds I&O Intake and Output 09/06/20 00:00 Intake Total 500 ml Output Total 1170 ml Balance -670 ml Intake Oral 0 ml IV Total 500 ml Output Urine Total 1170 ml Daily Weight Change No General: Other (Intubated, sedqted) Neck: Supple Lungs: Clear to Auscultation, Normal Air Movement, Other (ventilator sounds) Heart: Regular Rate, No Murmurs Abdomen: Normal Bowel Sounds, Soft, No Tenderness, No Hepatosplenomegaly, No Masses Extremities: No Clubbing, No Cyanosis, No Edema, Normal Pulses Skin: No Rashes, No Breakdown, No Significant Lesion Psych/Mental Status: Other (Intubated, sedated) Results Lab Laboratory Tests 09/05/20 13:57: Blood Gas Puncture Site RT RADIAL, Blood Gas Patient Temperature 96.8, Arterial Blood pH 7.31*L, Arterial Blood Partial Pressure CO2 63H, Arterial Blood Partial Pressure O2 73L, Arterial Blood HCO3 31H, Arterial Blood Total CO2 33.2H, Arterial Blood Oxygen Saturation 95, Arterial Blood Base Excess 5.1H, Janusz Test YES-POS, Blood Gas Ventilator Setting NO, Blood Gas Inspired Oxygen 40% BIPAP 09/05/20 14:40: Phosphorus Level 4.0, Troponin I < 0.028, Triglycerides Level 141 09/05/20 16:21: Glucometer 153H 09/05/20 16:25: Blood Gas Puncture Site RT RAD, Blood Gas Patient Temperature 36.0, Arterial Blood pH 7.48H, Arterial Blood Partial Pressure CO2 38, Arterial Blood Partial Pressure O2 69L, Arterial Blood HCO3 29H, Arterial Blood Total CO2 29.7, Arterial Blood Oxygen Saturation 95, Arterial Blood Base Excess 4.8H, Janusz Test POS, Blood Gas Ventilator Setting YES, Blood Gas Inspired Oxygen 50% 09/05/20 17:47: Glucometer 146H 09/05/20 22:09: Urine Color YELLOW, Urine Clarity CLEAR, Urine pH 8.0, Urine Specific [place] 1.015L, Urine Protein 2+H, Urine Glucose (UA) NEGATIVE, Urine Ketones TRACEH, Urine Nitrite NEGATIVE, Urine Bilirubin NEGATIVE, Urine Urobilinogen 2.0, Urine Leukocyte Esterase 1+H, Urine RBC (Auto) 1+H, Urine RBC 10-25H, Urine WBC 10-25H , Urine Crystals NONE, Urine Bacteria MODERATEH, Urine Casts NONE, Urine Mucus NEGATIVE, Urine Culture Indicated YES 09/06/20 02:25: White Blood Count 8.0, Red Blood Count 4.18L, Hemoglobin 13.4, Hematocrit 42, Mean Corpuscular Volume 101H, Mean Corpuscular Hemoglobin 32, Mean Corpuscular Hemoglobin Concent 32, Red Cell Distribution Width 13.4, Platelet Count 140, Mean Platelet Volume 12.3H, Immature Granulocyte % (Auto) 0, Neutrophils (%) (Auto) 64, Lymphocytes (%) (Auto) 23, Monocytes (%) (Auto) 10, Eosinophils (%) (Auto) 3, Basophils (%) (Auto) 1, Neutrophils # (Auto) 5.1, Lymphocytes # (Auto) 1.8, Monocytes # (Auto) 0.8, Eosinophils # (Auto) 0.2, Basophils # (Auto) 0.0, Immature Granulocyte # (Auto) 0.0, Sodium Level 141, Potassium Level 4.0, Chloride Level 106, Carbon Dioxide Level 20L, Anion Gap 15H, Blood Urea Nitrogen 25H, Creatinine 1.28, Estimat Glomerular Filtration Rate 58, BUN/Creatinine Ratio 20, Glucose Level 147H, Calcium Level 8.5, Phosphorus Level 2.3, Magnesium Level 1.7, Troponin I 0.028, Procalcitonin 0.12H 09/06/20 02:33: Blood Gas Puncture Site R RAD, Blood Gas Patient Temperature 37.1, Arterial Blood pH 7.48H, Arterial Blood Partial Pressure CO2 38, Arterial Blood Partial Pressure O2 77L, Arterial Blood HCO3 27, Arterial Blood Total CO2 28.5, Arterial Blood Oxygen Saturation 96, Arterial Blood Base Excess 3.9H, Janusz Test YES-POS, Blood Gas Ventilator Setting YES, Blood Gas Inspired Oxygen 40% Assessment/Plan Assessment/Plan Assess & Plan/Chief Complaint Mr. Tarun Negron is a 54 y/o M w/ PMH of CAD, esophageal strictures, and RIAZ presenting for chest pain and alerted mental status #Chest pain - Unclear if chest pain or abdominal pain - EKG unremarkable - Troponins negative - D-dimer negative - Cardiology consult pending - Cath 2 months ago -> negative significant coronary disease s/p stenting 2 years ago - CTA 2 months ago -> negative for PEs - EGD schedule w/ GI for later in August - Already had previous appendectomy - Amylase/lipase unremarkable - RUQ US unremarkable for cholecystitis - CTA negative for PEs - CTA demonstrated bilateral multifocal pneumonia Plan: > Likely 2/2 to PNA > Started on zosyn > Continue LR > Procal 0.12 #AMS - Somnolent later this morning w/ difficulty staying awake - Refused CPAP overnight - ABG 7.31/63/57/31 - 4L O2 mask - Intubated and sedated this morning, on the vent - > Vent 450/24/60/10 Plan: > Likely 2/2 to hypercarbia > Decrease PEEP to 5 this morning > F/u ABG with decreasing PEEP > Wean off vent tomorrow #RIAZ - B/l RIAZ, refused CPAP and BiPAP - Now intubated and sedated due to hypercarbia and AMS - Vent: 450/24/60/10 - Echo -> Grade 1 diastolic dysfunction Plan: > Decrease PEEP to 5, f/u w/ ABG > Wean tomorrow #CHF - New dx - Echo -> Grade 1 diastolic dysfunction - Hx of longstanding RIAZ w/ noncompliance on CPAP Plan: > Cards f/u o/p for HF management #DM - Sliding scale insuline Plan: > Monitor blood sugars #HTN - 124/78 Plan: > Continue [employer] meds #HLD Plan: >Continue [employer]IGN[employer] meds #Hip pain - Continue to monitor - Pt intubated and sedate this morning Plan: > Continue sedation Dispo: Continue ICU care Clinical Quality Measures Admission Status Admission Dx Mr. Tarun Negron is a 54 y/o M w/ PMH of CAD, esophageal strictures, and RIAZ presenting for chest pain and alerted mental status #Chest pain - Unclear if chest pain or abdominal pain - EKG unremarkable - Troponins negative - D-dimer negative - Cardiology consult pending - Cath 2 months ago -> negative significant coronary disease s/p stenting 2 years ago - CTA 2 months ago -> negative for PEs - EGD schedule w/ GI for later in August - Already had previous appendectomy Plan: > Amylase/lipase > RUQ US > Cardiology consult for ACS r/o > Hold morphine > GI cocktail > Continue aspirin 81mg > Fluids #AMS - Somnolent later this morning w/ difficulty staying awake - Refused CPAP overnight - ABG 7.31/63/57/31 - 4L O2 mask Plan: > admit to ICU > BiPAP > Likely 2/2 to RIAZ > Fluids > Hold morphine #DM - Sliding scale insuline Plan: > Monitor blood sugars #HTN - 133/89 Plan: > Continue [employer] meds #HLD Plan: >Continue [employer] meds #Hip pain - Continue to monitor Plan: > Hold morphine for decreased respiratory function > Hold NSAIDs for poor baseline renal function > Can consider tylenol use Dispo: Admit to ICU AMI/AHF: ASA po Prior to arrival: PAT Simmons DO 09/07/20 0510: Subjective Date Seen by a Provider: Sep 06, 2020 Time Seen by a Provider: 10:15 Subjective/Events-last exam Pt maintained on intubation Vent settings 450/24/60%/10 PEEP, will try to decrease PEEP today and extubate tomorrow Bicarb is [address] Pineda regarding vent to mask options since he was unable to tolerate the mask for BiPAP Objective Exam General: Other (sedated) Lungs: Clear to Auscultation Heart: Regular Rate Assessment/Plan Assessment/Plan Assess & Plan/Chief Complaint Vent management appreciated Monitor closely Wean tomorrow? Updated at bedside Vent to mask will be pursued Supervisory-Addendum Brief Verification & Attestation Participated in pt care: history, MDM, physical Personally performed: exam, history, MDM, supervision of care Care discussed with: Medical Student Procedures: n/a Results interpretation: Verified all documentation Verification and Attestation of Medical Student E/M Service A medical student performed and documented this service in my presence. I reviewed and verified all information documented by the medical student and made modifications to such information, when appropriate. I personally performed the physical exam and medical decision making. Pat Gonsalez, Sep 07, 2020,05:10 JANET EMERY, MED STUDENT Sep 06, 2020 11:59 PAT GONSALEZ DO Sep 07, 2020 05:10
[2020-09-06] MEDS: aCETylcysteine 20% (MUCOMYST) 30ML SOLN VIAL INH SCH ×3 (14:31→21:59)
[2020-09-06] MEDS: RT-ALBUTEROL/IPRATROPIUM 3 ML (DUONEB) VIAL INH SCH (18:25)
[2020-09-06] MEDS: DexMEDEtomidine 250 ML DRIP 250 ML IV SCH (19:56)
[2020-09-07] VITALS (29 sets, daily range): BP systolic 152–177; BP diastolic 83–107
[2020-09-07] MEDS: aCETylcysteine 20% (MUCOMYST) 30ML SOLN VIAL PO SCH ×3 (00:46→22:00)
[2020-09-07] MEDS: LACTATED RINGERS 1,000 ML IV SCH ×4 (01:38→18:44)
[2020-09-07] MEDS: aCETylcysteine 20% (MUCOMYST) 30ML SOLN VIAL INH SCH ×6 (02:37→22:02)
[2020-09-07] MEDS: RT-ALBUTEROL/IPRATROPIUM 3 ML (DUONEB) VIAL INH SCH ×6 (02:38→22:00)
[2020-09-07] MEDS: PROPOFOL DRIP (ICU) 100 ML IV SCH ×5 (03:20→23:40)
[2020-09-07] MEDS: DexMEDEtomidine 250 ML DRIP 250 ML IV SCH ×5 (03:20→23:41)
[2020-09-07 03:51] LABS: ABG BASE EXCESS -1.1 MMOL/L (-2.5-2.5); ABG OXYGEN SATURATION 91 % (94-100); ABG PCO2 40 MMHG (35-45); ABG PH 7.38 (7.37-7.43); ABG PO2 66 MMHG (79-93); ABG TCO2 24.4 MMOL/L (21.0-31.0)
[2020-09-07 03:53] LABS: ALLENS TEST YES-POS; INSPIRED O2 60%; PATIENT TEMP 37.2; VENTILATOR YES
[2020-09-07] MEDS: PIPERACILLIN/TAZOBACTAM (BULK) 4.5 GM in NS (IVPB) 100 ML IV SCH ×3 (04:02→19:43)
[2020-09-07 04:03] LABS: BASOPHILS % (AUTO) 0 % (0-10); EOSINOPHILS % (AUTO) 0 % (0-10); HEMATOCRIT 44 % (40-54); HEMOGLOBIN 14.2 g/dL (13.3-17.7); LYMPHOCYTES # (AUTO) 0.7 10^3/uL (1.0-4.0); LYMPHOCYTES % (AUTO) 6 % (12-44); MEAN CORPUSCULAR HEMOGLOBIN 32 pg (25-34); MEAN CORPUSCULAR HGB CONC 32 g/dL (32-36); MEAN CORPUSCULAR VOLUME 98 fL (80-99); MEAN PLATELET VOLUME 11.7 fL (9.0-12.2); MONOCYTES # (AUTO) 0.6 10^3/uL (0.0-1.0); MONOCYTES % (AUTO) 5 % (0-12); NEUTROPHILS % (AUTO) 88 % (42-75); PLATELET COUNT 128 10^3/uL (130-400); WHITE BLOOD COUNT 11.4 10^3/uL (4.3-11.0)
[2020-09-07] MEDS: ENOXAPARIN 300 MG/3 ML (LOVENOX) MULTI-DOSE VIAL SQ SCH (04:03)
[2020-09-07 04:15] LABS: POTASSIUM 4.6 MMOL/L (3.6-5.0)
[2020-09-07 04:16] LABS: CALCIUM 8.6 MG/DL (8.5-10.1)
[2020-09-07 04:21] LABS: CREATININE SERUM 1.42 MG/DL (0.60-1.30); PHOSPHORUS 3.8 MG/DL (2.3-4.7)
--- NOTE | 2020-09-07 04:40 | Pulmonary Progress Note ---
Subjective Time Seen by a Provider: 04:34 Sepsis Event Evaluation Height, Weight, BMI Height: 5'11.00" Weight: 260lbs. 8.0oz. 117.929942ym; 42.12 BMI Method:Stated Exam Exam Vital Signs Date Time Temp Pulse Resp B/P (MAP) Pulse Ox O2 Delivery O2 Flow Rate FiO2 09/07/20 04:05 92 Mechanical Ventilator 60 09/07/20 04:05 Mechanical Ventilator 50.00 09/07/20 03:32 37.2 09/07/20 03:20 73 164/98 09/07/20 03:20 73 164/98 09/07/20 02:38 73 24 91 60 09/07/20 00:00 79 23 152/90 (110) 91 Mechanical Ventilator 60.00 09/06/20 23:37 36.6 60.00 09/06/20 23:34 92 Mechanical Ventilator 60 09/06/20 23:00 81 24 142/87 (105) 90 Mechanical Ventilator 65.00 09/06/20 22:12 87 132/82 09/06/20 22:06 87 24 92 65 09/06/20 22:00 66 24 135/82 (99) 92 Mechanical Ventilator 65.00 09/06/20 21:00 73 24 133/85 (101) 92 Mechanical Ventilator 65.00 09/06/20 20:30 92 Mechanical Ventilator 65 09/06/20 20:26 36.4 09/06/20 20:03 80 24 150/89 (109) 92 Mechanical Ventilator 65.00 09/06/20 19:56 87 132/83 09/06/20 19:00 82 24 139/86 (103) 93 Mechanical Ventilator 60.00 09/06/20 19:00 79 09/06/20 18:26 87 24 96 70 09/06/20 18:00 101 25 154/91 (112) 96 Mechanical Ventilator 60.00 09/06/20 17:06 88 129/78 09/06/20 17:00 87 24 131/78 (95) 93 Mechanical Ventilator 60.00 09/06/20 16:00 88 23 129/78 (95) 93 Mechanical Ventilator 60.00 09/06/20 16:00 90 Mechanical Ventilator 60 09/06/20 15:57 35.8 09/06/20 15:00 92 23 130/81 (97) 92 Mechanical Ventilator 60.00 09/06/20 14:32 87 24 93 60 09/06/20 14:00 77 23 131/75 (93) 93 Mechanical Ventilator 60.00 09/06/20 13:56 75 130/74 09/06/20 13:00 75 20 128/75 (92) 90 Mechanical Ventilator 60.00 09/06/20 13:00 71 09/06/20 12:59 90 70 09/06/20 12:02 90 Mechanical Ventilator 60 09/06/20 12:01 36.0 09/06/20 12:00 75 23 129/74 (92) 90 Mechanical Ventilator 60.00 09/06/20 11:36 77 133/83 09/06/20 11:00 85 24 133/83 (100) 90 Mechanical Ventilator 60.00 09/06/20 10:38 73 24 90 60 09/06/20 10:00 79 24 134/83 (100) 90 Mechanical Ventilator 60.00 09/06/20 09:00 87 24 125/76 (92) 90 Mechanical Ventilator 60.00 09/06/20 08:41 86 24 90 60 09/06/20 08:00 90 Mechanical Ventilator 60 09/06/20 08:00 84 24 132/76 (94) 91 Mechanical Ventilator 60.00 09/06/20 07:58 36.4 09/06/20 07:57 83 124/78 09/06/20 07:00 87 23 128/78 (95) 90 Mechanical Ventilator 60.00 09/06/20 07:00 87 09/06/20 06:55 81 26 91 40 09/06/20 06:47 Mechanical Ventilator 60.00 09/06/20 06:00 93 24 136/83 (100) 89 Mechanical Ventilator 40.00 09/06/20 05:00 78 19 119/78 (92) 91 Mechanical Ventilator 40.00 09/06/20 04:50 80 116/72 I & O 09/07/20 07:00 Intake Total 1920 ml Output Total 1700 ml Balance 220 ml Height & Weight Height: 5'11.00" Weight: 260lbs. 8.0oz. 117.772200ho; 42.12 BMI Method:Stated General Appearance: No Apparent Distress, Obese, Other (Sedated on vent ) HEENT: PERRL/EOMI, Pharynx Normal Neck: Non Tender, Supple Respiratory: Lungs Clear, Normal Breath Sounds Cardiovascular: Regular Rate, Rhythm, No Murmur, Tachycardia Capillary Refill: Less Than 3 Seconds Extremity: Normal Range of Motion, Non Tender, No Pedal Edema Neurologic/Psychiatric: Alert, Oriented x3 Skin: Normal Color, Warm/Dry Lymphatic: No Adenopathy Results Lab Laboratory Tests 09/06/20 02:25 09/07/20 03:40 Assessment/Plan Assessment/Plan Acute on chronic respiratory failure r/o DVT -Vent 470, 26, 10 -Intubated 09/03 -Decrease Vt 450, RR 24, Peep 10-- Fi02 50% -ABG 1hr after -Pt is not ready for vent weaning yet. --Propofol is at 15, fentanyl at 150 -precedex -CTA -- shows atelectasis and bilateral PNA . No PE -Continue Zosyn -Check Bilateral dopplers -Negative -Echo-- 55-60% with grade 1 diastolic dysfunction -decrease Lovenox to PPX Stage 1 diastolic CHF with EF 55-65% -Monitor Leukocytois - secondary to PNA and steroids -Pt is on solumedrol -Zosyn start 09/06 HTN -Add daily Lopressor and PRN Hydralazine. Morbid obesity with RIAZ -Plan on Vent to mask upon hospital discharge C02 63 prior to intubation Acute CP -Cardiology consulted -Troponin negative thus far Tobacco dependance -Education DM -Monitor -SSI HTN BIANCA CARR DO Sep 07, 2020 04:40
[2020-09-07] MEDS: methylPREDNISolone 40 MG/ML (Solu-MEDROL) VIAL IV SCH ×4 (06:01→23:41)
[2020-09-07] MEDS: inSUlin ASPART (NovoLOG) 1 UNIT/0.01 ML (CHARGE PER UNIT) SC SCH ×5 (06:01→23:42)
[2020-09-07] MEDS: fentaNYL DRIP PRE-MIX 250 ML IV SCH ×4 (07:13→23:41)
--- NOTE | 2020-09-07 07:18 | Diagnostic Imaging Report ---
Reason for the examination: Chest pain. Semiupright AP portable view of the chest was obtained and compared to yesterday. ET tube tip is just below the clavicles. An NG tube is in place but the tip is not visible. Cardiomediastinal silhouette is enlarged but similar to yesterday. Worsening central pulmonary vascular congestion and probably worsening edema with no pneumothorax. A component of infectious/inflammatory infiltrate could not be excluded. No pneumothorax. Impression: 1. Support lines and tubes are in good position where visible. 2. Worsening central pulmonary vascular congestion and bilateral opacities which are probably related to worsening pulmonary edema although a component of infectious/inflammatory infiltrate could not be excluded. Correlation and followup is needed. No pneumothorax. Dictated by: Dictated on workstation # [id number]
[2020-09-07] MEDS: ENOXAPARIN 40 MG/0.4 ML (LOVENOX) SYR SC SCH ×2 (08:18→20:03)
[2020-09-07] MEDS: meTOprolol TARTRATE 25 MG (LOPRESSOR) TABLET PO SCH ×2 (08:19→20:03)
[2020-09-07] MEDS: PANTOPRAZOLE 40 MG (PROTONIX) VIAL IV SCH ×2 (08:19→20:03)
[2020-09-07] MEDS: ASPIRIN E.C. 81 MG (ECOTRIN) TAB PO SCH (08:19)
[2020-09-07] MEDS: hydrALAZINE (APESOLINE) 20 MG/ML VIAL IV PRN ×2 (08:37→15:35)
--- NOTE | 2020-09-07 11:19 | Progress Note ---
JANET EMERY, MED STUDENT 09/07/20 1119: Subjective Subjective/Events-last exam Pt is intubated and sedated this morning. Unable to follow commands. Objective Exam Last Set of Vital Signs Vital Signs Date Time Temp Pulse Resp B/P (MAP) Pulse Ox O2 Delivery O2 Flow Rate FiO2 09/07/20 10:37 88 168/102 09/07/20 10:17 32 90 50 09/07/20 10:00 Mechanical Ventilator 60.00 09/07/20 07:47 37.2 Capillary Refill : Less Than 3 Seconds I&O Intake and Output 09/07/20 00:00 Intake Total 1920 ml Output Total 1835 ml Balance 85 ml Intake Oral 0 ml IV Total 1920 ml Output Urine Total 1835 ml General: Other (intubated, seduated) HEENT: Atraumatic Neck: Supple, No JVD Lungs: Other (ventilator breath sounds) Heart: Regular Rate, Normal S1, Normal S2 Abdomen: Normal Bowel Sounds, Soft, No Hepatosplenomegaly Extremities: No Clubbing, No Cyanosis, Normal Pulses, Other (1+ edema) Skin: No Rashes, Other (Abdominal bruising) Neuro: Other (Intubated and sedated) Results Lab Laboratory Tests 09/06/20 14:09: Glucometer 272H 09/06/20 17:02: Glucometer 236H 09/06/20 18:06: Glucometer 258H 09/06/20 23:36: Glucometer 264H 09/07/20 03:40: White Blood Count 11.4H, Red Blood Count 4.50, Hemoglobin 14.2, Hematocrit 44, Mean Corpuscular Volume 98, Mean Corpuscular Hemoglobin 32, Mean Corpuscular Hemoglobin Concent 32, Red Cell Distribution Width 12.7, Platelet Count 128L, Mean Platelet Volume 11.7, Immature Granulocyte % (Auto) 1, Neutrophils (%) (Auto) 88H, Lymphocytes (%) (Auto) 6L, Monocytes (%) (Auto) 5, Eosinophils (%) (Auto) 0, Basophils (%) (Auto) 0, Neutrophils # (Auto) 10.0H, Lymphocytes # (Auto) 0.7L, Monocytes # (Auto) 0.6, Eosinophils # (Auto) 0.0, Basophils # (Auto) 0.0, Immature Granulocyte # (Auto) 0.1, Sodium Level 139, Potassium Level 4.6, Chloride Level 105, Carbon Dioxide Level 19L, Anion Gap 15H, Blood Urea Nitrogen 26H, Creatinine 1.42H, Estimat Glomerular Filtration Rate 52, BUN/Creatinine Ratio 18, Glucose Level 341H, Calcium Level 8.6, Phosphorus Level 3.8, Magnesium Level 2.0, Triglycerides Level 188H 09/07/20 03:44: Blood Gas Puncture Site RIGHT RADIAL, Blood Gas Patient Temperature 37.2, Arterial Blood pH 7.38, Arterial Blood Partial Pressure CO2 40, Arterial Blood Partial Pressure O2 66L, Arterial Blood HCO3 23, Arterial Blood Total CO2 24.4, Arterial Blood Oxygen Saturation 91L, Arterial Blood Base Excess -1.1, Janusz Test YES-POS, Blood Gas Ventilator Setting YES, Blood Gas Inspired Oxygen 60% Microbiology 09/05/20 Urine Culture - Final, Complete NO GROWTH 09/05/20 Gram Stain - Final, Resulted 09/05/20 Sputum Culture - Preliminary, Resulted Usual upper respiratory yusra Assessment/Plan Assessment/Plan Assess & Plan/Chief Complaint Mr. Tarun Negron is a 54 y/o M w/ PMH of CAD, esophageal strictures, and RIAZ presenting for chest pain and alerted mental status #Chest pain #Pneumonia - Unclear if chest pain or abdominal pain - EKG unremarkable - Troponins negative - D-dimer negative - Cardiology consult pending - Cath 2 months ago -> negative significant coronary disease s/p stenting 2 years ago - CTA 2 months ago -> negative for PEs - EGD schedule w/ GI for later in August - Already had previous appendectomy - Amylase/lipase unremarkable - RUQ US unremarkable for cholecystitis - CTA negative for PEs - CTA demonstrated bilateral multifocal pneumonia - WBC 11.4 this morning - Sputum Cultures still pending Plan: > Likely 2/2 to PNA > Started on zosyn > Continue LR > Procal 0.12 yesterday > Increase in WBC likely 2/2 to pneumonia + steroid use > F/u sputum cultures once results are back > Continue steroids #AMS - Somnolent later this morning w/ difficulty staying awake - Refused CPAP overnight - ABG 7.31/63/57/31 - 4L O2 mask - Intubated and sedated this morning, on the vent - > Vent 450/24/60/10 Plan: > Likely 2/2 to hypercarbia > Decrease PEEP to 5 this morning > F/u ABG with decreasing PEEP > Wean off vent tomorrow #RIAZ - B/l RIAZ, refused CPAP and BiPAP - Now intubated and sedated due to hypercarbia and AMS - Vent: 450/24/60/10 yesterday - Echo -> Grade 1 diastolic dysfunction - ABG 7.38/40/66/23 Plan: > PEEP decreased to 8, FiO2 50% now > Improved pH and CO2 on ABG, continue to wean off vent as able #CHF - New dx - Echo -> Grade 1 diastolic dysfunction - Hx of longstanding RIAZ w/ noncompliance on CPAP - CXR showed vascular congestion - HTN this AM (BP in the 170s) Plan: > Furosemide 40mg IV once tomorrow > Cards f/u o/p for HF management #DM - Sliding scale insuline Plan: > Monitor blood sugars #HTN - 154/95 but several readings in the 170s overnight Plan: > Continue [employer] meds > Diereses tomorrow, likely volume overloaded 2/2 HF #HLD Plan: >Continue [employer] meds #Hip pain - Continue to monitor - Pt intubated and sedate this morning Plan: > Continue sedation Dispo: Continue ICU care DVT PPX: Lovenox GI PPX: Protonix Feeds: Will likely need to start trickle feeds today or tomorrow Clinical Quality Measures Admission Status Admission Dx Mr. Tarun Negron is a 54 y/o M w/ PMH of CAD, esophageal strictures, and RIAZ presenting for chest pain and alerted mental status #Chest pain - Unclear if chest pain or abdominal pain - EKG unremarkable - Troponins negative - D-dimer negative - Cardiology consult pending - Cath 2 months ago -> negative significant coronary disease s/p stenting 2 years ago - CTA 2 months ago -> negative for PEs - EGD schedule w/ GI for later in August - Already had previous appendectomy Plan: > Amylase/lipase > RUQ US > Cardiology consult for ACS r/o > Hold morphine > GI cocktail > Continue aspirin 81mg > Fluids #AMS - Somnolent later this morning w/ difficulty staying awake - Refused CPAP overnight - ABG 7.31/63/57/31 - 4L O2 mask Plan: > admit to ICU > BiPAP > Likely 2/2 to RIAZ > Fluids > Hold morphine #DM - Sliding scale insuline Plan: > Monitor blood sugars #HTN - 133/89 Plan: > Continue [employer] meds #HLD Plan: >Continue [employer] meds #Hip pain - Continue to monitor Plan: > Hold morphine for decreased respiratory function > Hold NSAIDs for poor baseline renal function > Can consider tylenol use Dispo: Admit to ICU AMI/AHF: ASA po Prior to arrival: Kia PAT GONSALEZ DO 09/08/20 1038: Subjective Date Seen by a Provider: Sep 07, 2020 Time Seen by a Provider: 10:30 Subjective/Events-last exam Updated at bedside Creat stable Objective Exam General: Other (intubated, seduated) Lungs: Clear to Auscultation, Other (ventilator breath sounds) Heart: Regular Rate Abdomen: Normal Bowel Sounds Assessment/Plan Assessment/Plan Assess & Plan/Chief Complaint Monitor closely Updated in-depth at bedside Wean if able Vent to mask at DC Supervisory-Addendum Brief Verification & Attestation Participated in pt care: history, MDM, physical Personally performed: exam, history, MDM, supervision of care Care discussed with: Medical Student Procedures: n/a Results interpretation: Verified all documentation Verification and Attestation of Medical Student E/M Service A medical student performed and documented this service in my presence. I reviewed and verified all information documented by the medical student and made modifications to such information, when appropriate. I personally performed the physical exam and medical decision making. Pat Gonsalez, Sep 08, 2020,10:38 JANET EMERY, MED STUDENT Sep 07, 2020 11:19 PAT GONSALEZ DO Sep 08, 2020 10:38
[2020-09-07 11:48] LABS: OCCULT BLOOD,GASTRIC FLUID POSITIVE (NEGATIVE)
--- NOTE | 2020-09-07 12:14 | Cardiology Progress Note ---
Cardiology SOAP Progress Note Subjective: Intubated/ventilated. Objective: I&O/Vital Signs 09/07/20 09/07/20 09/07/20 09/07/20 01:00 02:00 02:38 03:00 Pulse 75 73 73 90 Resp 24 24 24 27 B/P (MAP) 163/99 (120) 164/102 (122) 169/107 (127) Pulse Ox 91 91 91 91 O2 Delivery Mechanical Ventilator Mechanical Ventilator Mechanical Ventilator O2 Flow Rate 60.00 60.00 60.00 FiO2 60 09/07/20 09/07/20 09/07/20 09/07/20 03:20 03:20 03:32 04:00 Temp 37.2 Pulse 73 73 81 Resp 20 B/P (MAP) 164/98 164/98 167/104 (125) Pulse Ox 95 O2 Delivery Mechanical Ventilator O2 Flow Rate 60.00 09/07/20 09/07/20 09/07/20 09/07/20 04:05 04:05 05:00 06:00 Pulse 79 72 Resp 23 25 B/P (MAP) 169/102 (124) 170/104 (126) Pulse Ox 92 96 96 O2 Delivery Mechanical Ventilator Mechanical Ventilator Mechanical Ventilator Mechanical Ventilator O2 Flow Rate 50.00 60.00 60.00 FiO2 60 09/07/20 09/07/20 09/07/20 09/07/20 06:35 07:00 07:00 07:47 Temp 37.2 Pulse 81 92 88 Resp 27 17 B/P (MAP) 169/102 (124) Pulse Ox 96 93 O2 Delivery Mechanical Ventilator O2 Flow Rate 60.00 FiO2 50 09/07/20 09/07/20 09/07/20 09/07/20 08:00 08:30 08:35 09:00 Pulse 72 84 89 Resp 25 14 B/P (MAP) 173/103 (126) 175/108 154/95 (114) Pulse Ox 96 90 91 O2 Delivery Mechanical Ventilator Mechanical Ventilator Mechanical Ventilator O2 Flow Rate 60.00 60.00 FiO2 80 09/07/20 09/07/20 09/07/20 09/07/20 10:00 10:17 10:37 11:00 Pulse 96 85 88 81 Resp 14 32 19 B/P (MAP) 161/95 (117) 168/102 174/103 (126) Pulse Ox 90 90 90 O2 Delivery Mechanical Ventilator Mechanical Ventilator O2 Flow Rate 60.00 60.00 FiO2 50 09/07/20 00:00 Intake Total 1250 ml Output Total 1150 ml Balance 100 ml Weight (Pounds): 260 Weight (Ounces): 8.0 Weight (Calculated Kilograms): [phone] Constitutional: other (Intubated/ventilated.) Respiratory: chest is bilaterally symmetric, lungs clear to auscultation Cardiovascular: regular rate-rhythm, S1 and S2 Gastrointestional: soft, audible bowel sounds Extremities: no lower extremity edema bilateral Neurologic/Psychiatric: other (Intubated/ventilated.) Results/Procedures: Labs Laboratory Tests 09/06/20 14:09: Glucometer 272H 09/06/20 17:02: Glucometer 236H 09/06/20 18:06: Glucometer 258H 09/06/20 23:36: Glucometer 264H 09/07/20 03:40: White Blood Count 11.4H, Red Blood Count 4.50, Hemoglobin 14.2, Hematocrit 44, Mean Corpuscular Volume 98, Mean Corpuscular Hemoglobin 32, Mean Corpuscular Hemoglobin Concent 32, Red Cell Distribution Width 12.7, Platelet Count 128L, Mean Platelet Volume 11.7, Immature Granulocyte % (Auto) 1, Neutrophils (%) (Auto) 88H, Lymphocytes (%) (Auto) 6L, Monocytes (%) (Auto) 5, Eosinophils (%) (Auto) 0, Basophils (%) (Auto) 0, Neutrophils # (Auto) 10.0H, Lymphocytes # (Auto) 0.7L, Monocytes # (Auto) 0.6, Eosinophils # (Auto) 0.0, Basophils # (Auto) 0.0, Immature Granulocyte # (Auto) 0.1, Sodium Level 139, Potassium Level 4.6, Chloride Level 105, Carbon Dioxide Level 19L, Anion Gap 15H, Blood Urea Nitrogen 26H, Creatinine 1.42H, Estimat Glomerular Filtration Rate 52, BUN/Creatinine Ratio 18, Glucose Level 341H, Calcium Level 8.6, Phosphorus Level 3.8, Magnesium Level 2.0, Triglycerides Level 188H 09/07/20 03:44: Blood Gas Puncture Site RIGHT RADIAL, Blood Gas Patient Temperature 37.2, Arterial Blood pH 7.38, Arterial Blood Partial Pressure CO2 40, Arterial Blood Partial Pressure O2 66L, Arterial Blood HCO3 23, Arterial Blood Total CO2 24.4, Arterial Blood Oxygen Saturation 91L, Arterial Blood Base Excess -1.1, Janusz Test YES-POS, Blood Gas Ventilator Setting YES, Blood Gas Inspired Oxygen 60% 09/07/20 11:35: Gastric Fluid Occult Blood POSITIVEH 09/07/20 12:09: Glucometer 343H Microbiology 09/05/20 Urine Culture - Final, Complete NO GROWTH 09/05/20 Gram Stain - Final, Resulted 09/05/20 Sputum Culture - Preliminary, Resulted Usual upper respiratory yusra A/P: Assessment/Dx: Chest pain-on admission Acute respiratory failure, intubated/ventilated Hypertension Hyperlipidemia Obstructive sleep apnea DM2, non-insulin dependent Plan: Acute respiratory failure, multifactorial, probably due to respiratory suppression from CO2 narcosis and CT scan suggestive of pneumonia, ventilator dependent, managed by primary care team. Chest pain, probably noncardiac, cardiac enzymes and EKG did not show any acute abnormality, on admission, chest pain was out of proportion from any cardiac event. Continue to monitor Coronary artery disease, patient had non-ST elevation myocardial infarction, underwent cardiac catheterization on April 11, 2019 revealing subtotal occlusion with diffuse ectasia in the distal right coronary artery, complex intervention requiring guide liner and multiple balloons, then deployment of Maday 423 mm stent with excellent results. Proximal RCA has diffuse ectasia with 50 percent stenosis, distal right PDA subtotally occluded, fairly small artery, will be treated medically. Severe stenosis at the distal circumflex artery with long lesion involving the obtuse marginal branch, proper circumflex and AV groove branch, all arteries are less than 2 mm in diameter. 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 Mild to moderate ectasia in LAD with mild to moderate disease diffusely, nonobstructive disease. Underwent cardiac catheterization on May 03, [address] Cartagena with 2.2532 mm Promus drug-eluting stent to the circumflex artery. Underwent repeat cardiac catheterization on May 21, 2019 revealing multivessel CAD with FFR confirmation of [id number] disease in RCA and flow-limiting disease in mid LAD. Gzi-fvam-mrjmtodf in proximal LAD. 2.96w70tz Synergy stent to mid LAD. Cardiac catheterization done June 10, 2019 with 2.0x 12mm drug eluting Cristopher stent to first diagonal. Maintained on Effient and aspirin. Cardiac cath performed by Dr. Núñez on July 18, 2020 revealed moderate to severe ostial ramus intermedius branch that is small to moderate in size. Distal disease, medical therapy is recommended, tortuous LAD with moderate disease in a small diagonal artery that could be responsible for the chest pain, diffuse ectasia in the right coronary artery with patent stent, small vessel disease distally, small vessel disease in the circumflex artery distally, normal left ventricular end-diastolic pressure. Hypertension, monitor blood pressure Hyperlipidemia, continue pitavastatin, fenofibrate. Repatha as outpatient. DM2, insulin dependent. Per primary team. RIAZ, noncompliant with BiPAP. Working on referral to [facility] in [place], [place]. Nighttime BiPAP. Monitor closely. Right hip/back pain, per primary team. Tobaccoism, recommend complete cessation. Extensive family history of heart disease and stroke. Thank you for your consultation. Please call me if you have any questions. Federico Maxwell MD, FACP, FACC, FSCAI, FHRS, CCDS Interventional Cardiology Cardiac Electrophysiology Vascular Medicine and Endovascular Interventions Clinical Quality Measures AMI/AHF: ASA po Prior to arrival: Adelaida Carpio MD Sep 07, 2020 12:14
--- NOTE | 2020-09-07 14:02 | CONSULTATION REPORT ---
DATE OF SERVICE: 09/07/2020 ATTENDING PRIMARY CARE PHYSICIAN: Dr. Pat Stevens. HISTORY OF PRESENT ILLNESS: The patient is a 54-year-old male known to us. He underwent a laparoscopic cholecystectomy in 2005 and developed an incisional hernia and was found to have a considerable amount of adhesion tissue and underwent open laparotomy and lysis of adhesions. He then had recurrence of hernia and repaired on 09/29/2019. He then again had another reoccurrence in 09/2019 and there was a small bowel involved and he underwent a laparotomy, lysis of adhesions, small bowel resection as well as component separation and closure with biologic mesh. He does have number of medical comorbidities. He was admitted for significant shortness of breath. He has history of sleep apnea and morbid obesity and also was found to have pneumonia. We were consulted for evaluation of Gastroccult positive, NG tube aspirate. He did have a colonoscopy in 2017 where two polyps were identified, biopsied and found to be benign. PAST MEDICAL HISTORY: Diabetes, gout, hypertension, neuropathy, hypercholesterolemia, history of pneumonia 2017, osteomyelitis, degenerative joint disease, gastroesophageal reflux disease, coronary artery disease, myocardial infarction 03/2019. PAST SURGICAL HISTORY: Appendectomy in 1984, hiatal hernia repair and Gray fundoplication in 1998, right carpal tunnel release 2002, right wrist ORIF 2002, left carpal tunnel release 2003, laparoscopic cholecystectomy 2005, L4-S1 fusion x2, left ACL repair 2009, left knee arthroscopy 2013, laparoscopic umbilical hernia repair 2013, C4-C7 fusion x2, laparotomy and lysis of adhesion 2014, spinal cord stimulator placement 2010, removal , cardiac catheterization and stent placement x4, last one in 05/2019; incisional hernia repair with mesh 09/2019, laparotomy, lysis of adhesions, small bowel resection, component separation and biologic mesh placement 12/2019. ALLERGIES: No known drug allergies. MEDICATIONS: Allopurinol, furosemide, isosorbide mononitrate, lisinopril, metformin, Effient, Livalo, Humulin insulin, gabapentin, Repatha subcutaneous aspirin, Protonix, fenofibrate, Singulair, carvedilol, Lovaza, Ranexa, ProAir, baclofen, hydrocodone. SOCIAL HISTORY: Negative smoke, negative alcohol. FAMILY HISTORY: Three sisters with breast cancer. One sister with colon cancer. VITAL SIGNS: Temperature 36.8, blood pressure 166/87, pulse 81, respirations 26, pulse ox 90% on ventilator at 60% FiO2. REVIEW OF SYSTEMS: This is an obese male, currently on vent and sedated. There is slightly dark suction drainage per nasogastric tube, which was Gastroccult positive. He has not had any bowel movement since being admitted. He does have a longstanding history of constipation. They do not report any red blood per rectum nor any dark tarry stools. No fever, chills, no recent inadvertent weight loss. All other review of systems negative. PHYSICAL EXAMINATION: CHEST: Scattered rales and rhonchi bilaterally. HEART: Regular, no murmurs. EXTREMITIES: A +1/3 bilateral lower extremity edema, negative Homans sign. HEENT: No scleral icterus. NECK: No cervical lymphadenopathy. ABDOMEN: Distended, soft. No recurrent hernias No peritoneal signs. SKIN: Warm, dry. ASSESSMENT AND PLAN: A 54-year-old male with severe sleep apnea as well as bilateral pneumonitis versus pneumonia and respiratory failure requiring endotracheal intubation and mechanical ventilation. He was also found to be Gastroccult positive; however, his hemoglobin was stable. At this time, we will continue with medical management. He is currently on Protonix and he may continue on anticoagulation with Lovenox. On this admission, we will proceed with an EGD as well as biopsies as appropriate. Job ID: [id number] DocumentID: [id number] Dictated Date: 09/07/2020 13:14:42 Teletype Installer Date: 09/07/2020 14:01:54 Dictated By: MOISÉS LOUIS MD
[2020-09-08] VITALS (29 sets, daily range): BP systolic 125–182; BP diastolic 75–104
[2020-09-08] MEDS: LACTATED RINGERS 1,000 ML IV SCH ×4 (01:27→21:02)
[2020-09-08] MEDS: aCETylcysteine 20% (MUCOMYST) 30ML SOLN VIAL INH SCH ×2 (02:08→06:33)
[2020-09-08] MEDS: RT-ALBUTEROL/IPRATROPIUM 3 ML (DUONEB) VIAL INH SCH ×6 (02:08→22:14)
[2020-09-08] MEDS: PIPERACILLIN/TAZOBACTAM (BULK) 4.5 GM in NS (IVPB) 100 ML IV SCH ×3 (03:45→20:50)
[2020-09-08 03:57] LABS: BASOPHILS % (AUTO) 0 % (0-10); EOSINOPHILS % (AUTO) 0 % (0-10); HEMATOCRIT 43 % (40-54); HEMOGLOBIN 14.1 g/dL (13.3-17.7); LYMPHOCYTES # (AUTO) 1.4 10^3/uL (1.0-4.0); LYMPHOCYTES % (AUTO) 14 % (12-44); MEAN CORPUSCULAR HEMOGLOBIN 32 pg (25-34); MEAN CORPUSCULAR HGB CONC 33 g/dL (32-36); MEAN CORPUSCULAR VOLUME 98 fL (80-99); MEAN PLATELET VOLUME 11.8 fL (9.0-12.2); MONOCYTES # (AUTO) 0.6 10^3/uL (0.0-1.0); MONOCYTES % (AUTO) 6 % (0-12); NEUTROPHILS # (AUTO) 8.1 10^3/uL (1.8-7.8); NEUTROPHILS % (AUTO) 80 % (42-75); PLATELET COUNT 135 10^3/uL (130-400); WHITE BLOOD COUNT 10.1 10^3/uL (4.3-11.0)
[2020-09-08] MEDS: PROPOFOL DRIP (ICU) 100 ML IV SCH ×6 (03:57→22:28)
[2020-09-08 04:10] LABS: POTASSIUM 4.3 MMOL/L (3.6-5.0)
[2020-09-08 04:11] LABS: CALCIUM 8.7 MG/DL (8.5-10.1)
[2020-09-08 04:15] LABS: PHOSPHORUS 2.9 MG/DL (2.3-4.7)
[2020-09-08 04:16] LABS: CREATININE SERUM 1.55 MG/DL (0.60-1.30)
[2020-09-08 04:18] LABS: MAGNESIUM 1.9 MG/DL (1.6-2.4)
[2020-09-08] MEDS: fentaNYL DRIP PRE-MIX 250 ML IV SCH ×5 (04:45→22:28)
[2020-09-08] MEDS: DexMEDEtomidine 250 ML DRIP 250 ML IV SCH ×4 (04:46→20:50)
[2020-09-08 04:48] LABS: ABG BASE EXCESS -3.1 MMOL/L (-2.5-2.5); ABG OXYGEN SATURATION 93 % (94-100); ABG PCO2 36 MMHG (35-45); ABG PH 7.38 (7.37-7.43); ABG PO2 73 MMHG (79-93)
[2020-09-08 04:51] LABS: ALLENS TEST YES-POS; PATIENT TEMP 37.8; VENTILATOR YES
[2020-09-08] MEDS: methylPREDNISolone 40 MG/ML (Solu-MEDROL) VIAL IV SCH ×3 (05:32→18:20)
[2020-09-08] MEDS: inSUlin ASPART (NovoLOG) 1 UNIT/0.01 ML (CHARGE PER UNIT) SC SCH ×3 (05:32→18:19)
[2020-09-08] MEDS ORDERED: ACETAMINOPHEN 325 MG TABLET PO ONE (06:20)
[2020-09-08] MEDS: meTOprolol TARTRATE 25 MG (LOPRESSOR) TABLET PO SCH ×2 (08:00→20:50)
[2020-09-08] MEDS: ENOXAPARIN 40 MG/0.4 ML (LOVENOX) SYR SC SCH ×2 (08:00→20:51)
[2020-09-08] MEDS: PANTOPRAZOLE 40 MG (PROTONIX) VIAL IV SCH ×2 (08:00→20:50)
--- NOTE | 2020-09-08 08:09 | Diagnostic Imaging Report ---
INDICATION: Pulmonary edema and chest pain. Comparison is made with prior examination from 09/07/2020. FINDINGS: There is cardiomegaly. There is some venous congestion. ET and NG tubes are in satisfactory position. There is no pleural effusion or pneumothorax. IMPRESSION: Cardiomegaly and mild central pulmonary venous congestion. Dictated by: Dictated on workstation # [id number]
[2020-09-08] MEDS: ASPIRIN E.C. 81 MG (ECOTRIN) TAB PO SCH (08:12)
[2020-09-08] MEDS: hydrALAZINE (APESOLINE) 20 MG/ML VIAL IV PRN ×3 (09:44→20:50)
--- NOTE | 2020-09-08 10:52 | Progress Note ---
Subjective Date Seen by a Provider: Sep 08, 2020 Time Seen by a Provider: 10:30 Subjective/Events-last exam on vent/sedated. likely aspiration pneumonitis/pneumonia. Hb stable. Objective Exam Vital Signs Date Time Temp Pulse Resp B/P (MAP) Pulse Ox O2 Delivery O2 Flow Rate FiO2 09/08/20 09:43 98 172/97 09/08/20 09:00 114 24 156/95 (115) 92 Mechanical Ventilator 55.00 09/08/20 08:01 116 142/92 09/08/20 08:00 116 16 142/92 (109) 91 Mechanical Ventilator 55.00 09/08/20 07:23 92 Mechanical Ventilator 55 09/08/20 07:18 37.6 09/08/20 07:00 125 09/08/20 07:00 125 18 149/82 (104) 91 Mechanical Ventilator 55.00 09/08/20 06:57 37.6 09/08/20 06:33 124 32 91 55 09/08/20 06:22 37.8 09/08/20 06:00 125 26 151/89 (109) 91 Mechanical Ventilator 55.00 09/08/20 05:00 134 25 154/86 (108) 91 Mechanical Ventilator 55.00 09/08/20 04:46 135 137/83 09/08/20 04:00 37.8 09/08/20 04:00 90 Mechanical Ventilator 55 09/08/20 04:00 151 19 127/83 (98) 90 Mechanical Ventilator 55.00 09/08/20 03:57 149 121/66 09/08/20 03:57 37.8 09/08/20 03:00 92 15 174/97 (122) 92 Mechanical Ventilator 55.00 09/08/20 02:08 87 25 92 55 09/08/20 02:00 89 16 177/91 (119) 92 Mechanical Ventilator 55.00 09/08/20 01:00 91 09/08/20 01:00 91 16 182/93 (122) 92 Mechanical Ventilator 55.00 09/08/20 00:00 90 Mechanical Ventilator 55 09/08/20 00:00 100 20 170/96 (120) 91 Mechanical Ventilator 55.00 09/07/20 23:41 102 171/91 09/07/20 23:40 102 171/91 09/07/20 23:32 37.3 09/07/20 23:00 99 16 171/98 (122) 91 Mechanical Ventilator 55.00 09/07/20 22:02 81 25 91 55 09/07/20 22:00 82 24 171/91 (117) 90 Mechanical Ventilator 55.00 09/07/20 21:00 84 24 175/99 (124) 91 Mechanical Ventilator 55.00 09/07/20 20:00 86 23 165/93 (117) 90 Mechanical Ventilator 55.00 09/07/20 20:00 90 Mechanical Ventilator 55 09/07/20 19:57 Mechanical Ventilator 55.00 09/07/20 19:43 88 161/90 09/07/20 19:30 36.6 09/07/20 19:00 92 09/07/20 19:00 Mechanical Ventilator 50.00 09/07/20 19:00 94 17 156/89 (111) 90 Mechanical Ventilator 50.00 09/07/20 18:45 92 161/90 09/07/20 18:29 81 25 90 50 09/07/20 17:00 86 26 165/96 (119) 91 Mechanical Ventilator 60.00 09/07/20 16:00 93 16 153/90 (111) 90 Mechanical Ventilator 60.00 09/07/20 16:00 90 Mechanical Ventilator 50 09/07/20 15:58 36.8 09/07/20 15:35 86 165/91 09/07/20 15:00 86 22 158/83 (108) 93 Mechanical Ventilator 60.00 09/07/20 14:42 69 26 90 50 09/07/20 14:00 75 23 163/96 (118) 90 Mechanical Ventilator 60.00 09/07/20 13:46 77 162/87 09/07/20 13:00 98 24 164/96 (118) 92 Mechanical Ventilator 60.00 09/07/20 12:37 81 09/07/20 12:27 36.8 09/07/20 12:00 83 27 166/97 (120) 90 Mechanical Ventilator 60.00 09/07/20 12:00 90 Mechanical Ventilator 80 09/07/20 11:00 81 19 174/103 (126) 90 Mechanical Ventilator 60.00 I & O 09/08/20 07:00 Intake Total 4640 ml Output Total 4475 ml Balance 165 ml Capillary Refill : Less Than 3 Seconds General Appearance: No Apparent Distress HEENT: PERRL/EOMI Neck: Full Range of Motion Respiratory: Chest Non Tender, Rhonci Cardiovascular: Regular Rate, Rhythm Gastrointestinal: normal bowel sounds, non tender, soft Extremity: Normal Capillary Refill Skin: Normal Color Lymphatic: No Adenopathy Results Lab Laboratory Tests 09/07/20 11:35: Gastric Fluid Occult Blood POSITIVEH 09/07/20 12:09: Glucometer 343H 09/07/20 17:28: Glucometer 311H 09/07/20 23:34: Glucometer 379H 09/08/20 03:50: White Blood Count 10.1, Red Blood Count 4.40, Hemoglobin 14.1, Hematocrit 43, Mean Corpuscular Volume 98, Mean Corpuscular Hemoglobin 32, Mean Corpuscular Hemoglobin Concent 33, Red Cell Distribution Width 13.1, Platelet Count 135, Mean Platelet Volume 11.8, Immature Granulocyte % (Auto) 1, Neutrophils (%) (Auto) 80H, Lymphocytes (%) (Auto) 14, Monocytes (%) (Auto) 6, Eosinophils (%) (Auto) 0, Basophils (%) (Auto) 0, Neutrophils # (Auto) 8.1H, Lymphocytes # (Auto) 1.4, Monocytes # (Auto) 0.6, Eosinophils # (Auto) 0.0, Basophils # (Auto) 0.0, Immature Granulocyte # (Auto) 0.1, Sodium Level 141, Potassium Level 4.3, Chloride Level 105, Carbon Dioxide Level 19L, Anion Gap 17H, Blood Urea Nitrogen 32H, Creatinine 1.55H, Estimat Glomerular Filtration Rate 47, BUN/Creatinine Ratio 21, Glucose Level 360H, Calcium Level 8.7, Phosphorus Level 2.9, Magnesium Level 1.9 09/08/20 04:40: Blood Gas Puncture Site RIGHT RADIAL, Blood Gas Patient Temperature 37.8, Arterial Blood pH 7.38, Arterial Blood Partial Pressure CO2 36, Arterial Blood Partial Pressure O2 73L, Arterial Blood HCO3 21L, Arterial Blood Total CO2 22.0, Arterial Blood Oxygen Saturation 93L, Arterial Blood Base Excess -3.1L, Janusz Test YES-POS, Blood Gas Ventilator Setting YES, Blood Gas Inspired Oxygen 55% Microbiology 09/05/20 Urine Culture - Final, Complete NO GROWTH 09/05/20 Gram Stain - Final, Resulted 09/05/20 Sputum Culture - Preliminary, Resulted Usual upper respiratory yusra Staphylococcus aureus Yeast species Assessment/Plan Assessment/Plan Assess & Plan/Chief Complaint resp failure secondary aspiration pneumonitis/pneumonia with gastroccult postitive. colonoscopy done 18' with small benign polyp. Hb stable with no signs gross bleeding. will await EGD until more stable on this admission. ok to cont anticoag Clinical Quality Measures AMI/AHF: ASA po Prior to arrival: MOISÉS Mclaughlin MD Sep 08, 2020 10:52
[2020-09-08] MEDS: aCETylcysteine 20% (MUCOMYST) 30ML SOLN VIAL PO SCH ×2 (10:54→22:14)
[2020-09-08] MEDS ORDERED: APAP 325 MG/10.15 ML LIQ (TYLENOL) UDC PO PRN (11:45)
--- NOTE | 2020-09-08 13:49 | Progress Note ---
Subjective Date Seen by a Provider: Sep 08, 2020 Time Seen by a Provider: 13:00 Subjective/Events-last exam Patient intubated PEEP 8 Updated at bedside Gregory maintained Low grade fever Reviewed labs and meds Objective Exam Last Set of Vital Signs Vital Signs Date Time Temp Pulse Resp B/P (MAP) Pulse Ox O2 Delivery O2 Flow Rate FiO2 09/08/20 13:00 81 28 177/102 (127) 93 Mechanical Ventilator 55.00 09/08/20 12:43 36.5 09/08/20 12:00 55 Capillary Refill : Less Than 3 Seconds I&O Intake and Output 09/08/20 00:00 Intake Total 2980 ml Output Total 3725 ml Balance -745 ml Intake Oral 0 ml IV Total 2920 ml Other 60 ml Output Urine Total 3625 ml Gastric Drainage Total 100 ml General: Other (sedated, intubated) Lungs: Clear to Auscultation Heart: Regular Rate Results Lab Laboratory Tests 09/07/20 17:28: Glucometer 311H 09/07/20 23:34: Glucometer 379H 09/08/20 03:50: White Blood Count 10.1, Red Blood Count 4.40, Hemoglobin 14.1, Hematocrit 43, Mean Corpuscular Volume 98, Mean Corpuscular Hemoglobin 32, Mean Corpuscular Hemoglobin Concent 33, Red Cell Distribution Width 13.1, Platelet Count 135, Mean Platelet Volume 11.8, Immature Granulocyte % (Auto) 1, Neutrophils (%) (Auto) 80H, Lymphocytes (%) (Auto) 14, Monocytes (%) (Auto) 6, Eosinophils (%) (Auto) 0, Basophils (%) (Auto) 0, Neutrophils # (Auto) 8.1H, Lymphocytes # (Auto) 1.4, Monocytes # (Auto) 0.6, Eosinophils # (Auto) 0.0, Basophils # (Auto) 0.0, Immature Granulocyte # (Auto) 0.1, Sodium Level 141, Potassium Level 4.3, Chloride Level 105, Carbon Dioxide Level 19L, Anion Gap 17H, Blood Urea Nitrogen 32H, Creatinine 1.55H, Estimat Glomerular Filtration Rate 47, BUN/Creatinine Ratio 21, Glucose Level 360H, Calcium Level 8.7, Phosphorus Level 2.9, Magnesium Level 1.9 09/08/20 04:40: Blood Gas Puncture Site RIGHT RADIAL, Blood Gas Patient Temperature 37.8, Arterial Blood pH 7.38, Arterial Blood Partial Pressure CO2 36, Arterial Blood Partial Pressure O2 73L, Arterial Blood HCO3 21L, Arterial Blood Total CO2 22.0, Arterial Blood Oxygen Saturation 93L, Arterial Blood Base Excess -3.1L, Janusz Test YES-POS, Blood Gas Ventilator Setting YES, Blood Gas Inspired Oxygen 55% 09/08/20 11:15: Glucometer 328H Microbiology 09/05/20 Urine Culture - Final, Complete NO GROWTH 09/05/20 Gram Stain - Final, Resulted 09/05/20 Sputum Culture - Preliminary, Resulted Usual upper respiratory yusra Staphylococcus aureus Yeast species Assessment/Plan Assessment/Plan Assess & Plan/Chief Complaint Assessment: VDRF PNA CRI Severe sleep apnea untreated and recent crisis causing hypercapnia and hypoxic acute on chronic respiratory failure intolerant to CPAP biPAP mask now meets criteria for vent to mask once extubated DM severe insulin resistant Chronic pain HTN CAD Angina COPD Plan: Intubation ABx Monitor closely Diagnosis/Problems Diagnosis/Problems (1) Acute on chronic respiratory failure with hypoxia and hypercapnia Clinical Quality Measures Admission Status Admission Dx Assessment: Acute on chronic hypercapenic hypoxic respiratory failure Chest pain CAD RIAZ severe unable to tolerate biPAP and CPAP HTN CRI DM HLP Chronic pain Plan: ICU transfer ABG Dr Miriam Núñez AMI/AHF: ASA po Prior to arrival: IRINEO Simmons DO Sep 08, 2020 13:49
--- NOTE | 2020-09-08 14:59 | Cardiology Progress Note ---
Cardiology SOAP Progress Note Subjective: Intubated/ventilated. Objective: I&O/Vital Signs 09/08/20 09/08/20 09/08/20 09/08/20 03:00 03:57 03:57 04:00 Temp 37.8 Pulse 92 149 151 Resp 15 19 B/P (MAP) 174/97 (122) 121/66 127/83 (98) Pulse Ox 92 90 O2 Delivery Mechanical Ventilator Mechanical Ventilator O2 Flow Rate 55.00 55.00 09/08/20 09/08/20 09/08/20 09/08/20 04:00 04:00 04:46 05:00 Temp 37.8 Pulse 135 134 Resp 25 B/P (MAP) 137/83 154/86 (108) Pulse Ox 90 91 O2 Delivery Mechanical Ventilator Mechanical Ventilator O2 Flow Rate 55.00 FiO2 55 09/08/20 09/08/20 09/08/20 09/08/20 06:00 06:22 06:33 06:57 Temp 37.8 37.6 Pulse 125 124 Resp 26 32 B/P (MAP) 151/89 (109) Pulse Ox 91 91 O2 Delivery Mechanical Ventilator O2 Flow Rate 55.00 FiO2 55 09/08/20 09/08/20 09/08/20 09/08/20 07:00 07:00 07:18 07:23 Temp 37.6 Pulse 125 125 Resp 18 B/P (MAP) 149/82 (104) Pulse Ox 91 92 O2 Delivery Mechanical Ventilator Mechanical Ventilator O2 Flow Rate 55.00 FiO2 55 09/08/20 09/08/20 09/08/20 09/08/20 08:00 08:01 09:00 09:43 Pulse 116 116 114 98 Resp 16 24 B/P (MAP) 142/92 (109) 142/92 156/95 (115) 172/97 Pulse Ox 91 92 O2 Delivery Mechanical Ventilator Mechanical Ventilator O2 Flow Rate 55.00 55.00 09/08/20 09/08/20 09/08/20 09/08/20 10:56 11:00 11:16 11:59 Temp 38.4 38.4 Pulse 86 89 Resp 24 23 B/P (MAP) 170/96 (120) Pulse Ox 94 94 O2 Delivery Mechanical Ventilator O2 Flow Rate 55.00 FiO2 55 09/08/20 09/08/20 09/08/20 09/08/20 12:00 12:00 12:13 12:38 Pulse 87 89 92 Resp 24 B/P (MAP) 177/98 (124) 177/98 Pulse Ox 94 92 O2 Delivery Mechanical Ventilator Mechanical Ventilator O2 Flow Rate 55.00 FiO2 55 09/08/20 09/08/20 09/08/20 09/08/20 12:43 13:00 14:00 14:49 Temp 36.5 Pulse 81 82 84 Resp 28 22 24 B/P (MAP) 177/102 (127) 164/90 (114) Pulse Ox 93 93 93 O2 Delivery Mechanical Ventilator Mechanical Ventilator O2 Flow Rate 55.00 55.00 FiO2 55 09/08/20 14:55 Pulse 83 B/P (MAP) 164/92 09/08/20 00:00 Intake Total 2880 ml Output Total 2975 ml Balance -95 ml Weight (Pounds): 260 Weight (Ounces): 8.0 Weight (Calculated Kilograms): [id number] Constitutional: other (Intubated/ventilated.) Respiratory: chest is bilaterally symmetric, lungs clear to auscultation Cardiovascular: regular rate-rhythm, S1 and S2 Gastrointestional: soft, audible bowel sounds Extremities: no lower extremity edema bilateral Neurologic/Psychiatric: other (Intubated/ventilated.) Results/Procedures: Labs Laboratory Tests 09/07/20 17:28: Glucometer 311H 09/07/20 23:34: Glucometer 379H 09/08/20 03:50: White Blood Count 10.1, Red Blood Count 4.40, Hemoglobin 14.1, Hematocrit 43, Mean Corpuscular Volume 98, Mean Corpuscular Hemoglobin 32, Mean Corpuscular Hemoglobin Concent 33, Red Cell Distribution Width 13.1, Platelet Count 135, Mean Platelet Volume 11.8, Immature Granulocyte % (Auto) 1, Neutrophils (%) (Auto) 80H, Lymphocytes (%) (Auto) 14, Monocytes (%) (Auto) 6, Eosinophils (%) (Auto) 0, Basophils (%) (Auto) 0, Neutrophils # (Auto) 8.1H, Lymphocytes # (Auto) 1.4, Monocytes # (Auto) 0.6, Eosinophils # (Auto) 0.0, Basophils # (Auto) 0.0, Immature Granulocyte # (Auto) 0.1, Sodium Level 141, Potassium Level 4.3, Chloride Level 105, Carbon Dioxide Level 19L, Anion Gap 17H, Blood Urea Nitrogen 32H, Creatinine 1.55H, Estimat Glomerular Filtration Rate 47, BUN/Creatinine Ratio 21, Glucose Level 360H, Calcium Level 8.7, Phosphorus Level 2.9, Magnesium Level 1.9 09/08/20 04:40: Blood Gas Puncture Site RIGHT RADIAL, Blood Gas Patient Temperature 37.8, Arterial Blood pH 7.38, Arterial Blood Partial Pressure CO2 36, Arterial Blood Partial Pressure O2 73L, Arterial Blood HCO3 21L, Arterial Blood Total CO2 22.0, Arterial Blood Oxygen Saturation 93L, Arterial Blood Base Excess -3.1L, Janusz Test YES-POS, Blood Gas Ventilator Setting YES, Blood Gas Inspired Oxygen 55% 09/08/20 11:15: Glucometer 328H Microbiology 09/05/20 Urine Culture - Final, Complete NO GROWTH 09/05/20 Gram Stain - Final, Resulted 09/05/20 Sputum Culture - Preliminary, Resulted Usual upper respiratory yusra Staphylococcus aureus Yeast species A/P: Assessment/Dx: Chest pain-on admission Acute respiratory failure, intubated/ventilated Hypertension Hyperlipidemia Obstructive sleep apnea DM2, non-insulin dependent Plan: Acute respiratory failure, multifactorial, probably due to respiratory suppression from CO2 narcosis and CT scan suggestive of pneumonia, ventilator dependent, managed by primary care team. Chest pain, probably noncardiac, cardiac enzymes and EKG did not show any acute abnormality, on admission, chest pain was out of proportion from any cardiac event. Continue to monitor Coronary artery disease, patient had non-ST elevation myocardial infarction, underwent cardiac catheterization on April 11, 2019 revealing subtotal occlusion with diffuse ectasia in the distal right coronary artery, complex intervention requiring guide liner and multiple balloons, then deployment of Maday 423 mm stent with excellent results. Proximal RCA has diffuse ectasia with 50 percent stenosis, distal right PDA subtotally occluded, fairly small artery, will be treated medically. Severe stenosis at the distal circumflex artery with long lesion involving the obtuse marginal branch, proper circumflex and AV groove branch, all arteries are less than 2 mm in diameter. 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 Mild to moderate ectasia in LAD with mild to moderate disease diffusely, nonobstructive disease. Underwent cardiac catheterization on May 03, [address] Cartagena with 2.2532 mm Promus drug-eluting stent to the circumflex artery. Underwent repeat cardiac catheterization on May 21, 2019 revealing multivessel CAD with FFR confirmation of [id number]-[id number] disease in RCA and flow-limiting disease in mid LAD. [id number] in proximal LAD. [id number] Synergy stent to mid LAD. Cardiac catheterization done June 10, 2019 with 2.0x 12mm drug eluting [place] stent to first diagonal. Maintained on Effient and aspirin. Cardiac cath performed by Dr. Núñez on July 18, 2020 revealed moderate to severe ostial ramus intermedius branch that is small to moderate in size. Distal disease, medical therapy is recommended, tortuous LAD with moderate disease in a small diagonal artery that could be responsible for the chest pain, diffuse ectasia in the right coronary artery with patent stent, small vessel disease distally, small vessel disease in the circumflex artery distally, normal left ventricular end-diastolic pressure. Hypertension, monitor blood pressure Hyperlipidemia, continue pitavastatin, fenofibrate. Repatha as outpatient. DM2, insulin dependent. Per primary team. RIAZ, noncompliant with BiPAP. Working on referral to Sleep Center in [place], [place]. Nighttime BiPAP. Monitor closely. Right hip/back pain, per primary team. Tobaccoism, recommend complete cessation. Extensive family history of heart disease and stroke. Thank you for your consultation. Please call me if you have any questions. Federico Maxwell MD, FACP, FACC, FSCAI, FHRS, CCDS Interventional Cardiology Cardiac Electrophysiology Vascular Medicine and Endovascular Interventions Clinical Quality Measures AMI/AHF: ASA po Prior to arrival: Adelaida Carpio MD Sep 08, 2020 14:59
[2020-09-08] MEDS ORDERED: LABETALOL HCL 20 MG/4 ML VIAL IV PRN (17:15)
[2020-09-09] VITALS (31 sets, daily range): BP systolic 110–167; BP diastolic 66–108
[2020-09-09] MEDS: methylPREDNISolone 40 MG/ML (Solu-MEDROL) VIAL IV SCH ×5 (00:28→23:53)
[2020-09-09] MEDS: inSUlin ASPART (NovoLOG) 1 UNIT/0.01 ML (CHARGE PER UNIT) SC SCH ×5 (00:28→23:53)
[2020-09-09] MEDS: DexMEDEtomidine 250 ML DRIP 250 ML IV SCH ×5 (00:33→20:27)
[2020-09-09] MEDS: PROPOFOL DRIP (ICU) 100 ML IV SCH ×5 (02:03→19:40)
[2020-09-09] MEDS: fentaNYL DRIP PRE-MIX 250 ML IV SCH ×5 (02:03→19:40)
[2020-09-09 02:20] LABS: BASOPHILS % (AUTO) 0 % (0-10); EOSINOPHILS % (AUTO) 0 % (0-10); HEMATOCRIT 44 % (40-54); HEMOGLOBIN 14.1 g/dL (13.3-17.7); LYMPHOCYTES # (AUTO) 0.8 10^3/uL (1.0-4.0); LYMPHOCYTES % (AUTO) 9 % (12-44); MEAN CORPUSCULAR HEMOGLOBIN 32 pg (25-34); MEAN CORPUSCULAR HGB CONC 32 g/dL (32-36); MEAN CORPUSCULAR VOLUME 101 fL (80-99); MEAN PLATELET VOLUME 11.4 fL (9.0-12.2); MONOCYTES # (AUTO) 0.4 10^3/uL (0.0-1.0); MONOCYTES % (AUTO) 5 % (0-12); NEUTROPHILS # (AUTO) 7.1 10^3/uL (1.8-7.8); NEUTROPHILS % (AUTO) 85 % (42-75); PLATELET COUNT 130 10^3/uL (130-400); WHITE BLOOD COUNT 8.4 10^3/uL (4.3-11.0)
[2020-09-09] MEDS: RT-ALBUTEROL/IPRATROPIUM 3 ML (DUONEB) VIAL INH SCH ×6 (02:29→22:25)
[2020-09-09 02:35] LABS: POTASSIUM 4.2 MMOL/L (3.6-5.0)
[2020-09-09 02:36] LABS: CALCIUM 8.9 MG/DL (8.5-10.1)
[2020-09-09 02:40] LABS: PHOSPHORUS 3.9 MG/DL (2.3-4.7)
[2020-09-09 02:41] LABS: CREATININE SERUM 1.25 MG/DL (0.60-1.30)
[2020-09-09 02:43] LABS: MAGNESIUM 1.9 MG/DL (1.6-2.4)
[2020-09-09] MEDS: LACTATED RINGERS 1,000 ML IV SCH ×2 (03:40→10:12)
[2020-09-09] MEDS: PIPERACILLIN/TAZOBACTAM (BULK) 4.5 GM in NS (IVPB) 100 ML IV SCH ×3 (03:40→20:27)
[2020-09-09] MEDS: hydrALAZINE (APESOLINE) 20 MG/ML VIAL IV PRN ×2 (06:15→14:11)
--- NOTE | 2020-09-09 06:28 | Diagnostic Imaging Report ---
EXAMINATION: Portable erect AP chest at 3:13 AM INDICATION: Respiratory distress The cardiomegaly and mild pulmonary congestion seen on the prior study of 09/08/2020 are again evident and not significantly changed. However, in the interval since the prior exam the right hemidiaphragm has become indistinct and I suspect that there is now some pneumonia/atelectasis and/or fluid involving the right lung base. The left retrocardiac region is not well penetrated and difficult to assess. The mediastinum is prominent but no different than on the prior exam. The osseous structures are intact. The supportive tubes and lines seem to be in good position. IMPRESSION: The appearance of the chest has worsened somewhat since the prior study as mild right lower lobe pneumonia/atelectasis and perhaps a small amount of fluid have developed. A follow-up study would be recommended for continued evaluation. Dictated by: Dictated on workstation # [id number]
[2020-09-09] MEDS: aCETylcysteine 20% (MUCOMYST) 30ML SOLN VIAL PO SCH ×2 (06:32→22:25)
[2020-09-09] MEDS: meTOprolol TARTRATE 25 MG (LOPRESSOR) TABLET PO SCH ×2 (08:05→20:27)
[2020-09-09] MEDS: ASPIRIN E.C. 81 MG (ECOTRIN) TAB PO SCH (08:05)
[2020-09-09] MEDS: PANTOPRAZOLE 40 MG (PROTONIX) VIAL IV SCH ×2 (08:06→20:27)
[2020-09-09] MEDS: ENOXAPARIN 40 MG/0.4 ML (LOVENOX) SYR SC SCH ×2 (08:06→20:27)
--- NOTE | 2020-09-09 10:50 | Progress Note ---
Subjective Date Seen by a Provider: Sep 09, 2020 Time Seen by a Provider: 10:00 Subjective/Events-last exam patient stable, on vent/sedated. Hb stable. no signs of upper GI bleed.. Objective Exam Vital Signs Date Time Temp Pulse Resp B/P (MAP) Pulse Ox O2 Delivery O2 Flow Rate FiO2 09/09/20 10:35 93 24 88 60 09/09/20 10:13 85 151/94 09/09/20 10:12 87 151/94 09/09/20 08:00 92 Mechanical Ventilator 55 09/09/20 07:21 36.9 09/09/20 07:00 91 09/09/20 06:33 88 24 92 55 09/09/20 06:11 73 159/91 09/09/20 06:00 70 24 162/93 (116) 92 Mechanical Ventilator 55.00 09/09/20 05:34 73 159/91 09/09/20 05:00 73 23 167/98 (121) 92 Mechanical Ventilator 55.00 09/09/20 04:00 79 22 159/95 (116) 91 Mechanical Ventilator 55.00 09/09/20 04:00 93 Mechanical Ventilator 55 09/09/20 04:00 36.8 09/09/20 03:00 85 23 156/92 (113) 91 Mechanical Ventilator 55.00 09/09/20 02:29 73 24 92 55 09/09/20 02:03 87 148/86 09/09/20 02:00 75 25 160/92 (114) 92 Mechanical Ventilator 55.00 09/09/20 01:00 80 23 154/88 (110) 92 Mechanical Ventilator 55.00 09/09/20 01:00 82 09/09/20 00:33 87 148/86 09/09/20 00:00 87 148/86 (106) 91 Mechanical Ventilator 55.00 09/08/20 23:59 93 Mechanical Ventilator 55 09/08/20 23:00 93 142/84 (103) 92 Mechanical Ventilator 55.00 09/08/20 22:28 101 09/08/20 22:14 101 26 91 55 09/08/20 22:00 105 22 125/75 (92) 92 Mechanical Ventilator 55.00 09/08/20 21:29 36.4 09/08/20 21:00 64 24 147/86 (106) 93 Mechanical Ventilator 55.00 09/08/20 20:50 90 174/95 09/08/20 20:00 75 18 176/98 (124) 93 Mechanical Ventilator 55.00 09/08/20 20:00 93 Mechanical Ventilator 55 09/08/20 19:00 90 09/08/20 19:00 90 23 175/104 (127) 95 Mechanical Ventilator 55.00 09/08/20 18:37 61 174/95 09/08/20 18:29 72 24 94 55 09/08/20 18:00 74 25 174/97 (122) 94 Mechanical Ventilator 55.00 09/08/20 17:00 78 22 173/97 (122) 93 Mechanical Ventilator 55.00 09/08/20 16:00 93 Mechanical Ventilator 55 09/08/20 16:00 85 25 167/90 (115) 93 Mechanical Ventilator 55.00 09/08/20 15:44 85 162/91 09/08/20 15:00 83 19 160/91 (114) 93 Mechanical Ventilator 55.00 09/08/20 14:55 83 164/92 09/08/20 14:49 84 24 93 55 09/08/20 14:00 82 22 164/90 (114) 93 Mechanical Ventilator 55.00 09/08/20 13:00 81 28 177/102 (127) 93 Mechanical Ventilator 55.00 09/08/20 12:43 36.5 09/08/20 12:38 92 09/08/20 12:13 89 177/98 09/08/20 12:00 92 Mechanical Ventilator 55 09/08/20 12:00 87 24 177/98 (124) 94 Mechanical Ventilator 55.00 09/08/20 11:59 38.4 09/08/20 11:16 38.4 09/08/20 11:00 89 23 170/96 (120) 94 Mechanical Ventilator 55.00 09/08/20 10:56 86 24 94 55 I & O 09/09/20 06:59 Intake Total 3600 ml Output Total 7825 ml Balance -4225 ml Capillary Refill : Less Than 3 Seconds General Appearance: No Apparent Distress HEENT: PERRL/EOMI Neck: Full Range of Motion Respiratory: Chest Non Tender, Rhonci, Wheezing Cardiovascular: Regular Rate, Rhythm Gastrointestinal: normal bowel sounds, non tender, soft Extremity: Normal Capillary Refill Neurologic/Psychiatric: Alert, Oriented x3 Skin: Normal Color Lymphatic: No Adenopathy Results Lab Laboratory Tests 09/08/20 11:15: Glucometer 328H 09/08/20 18:15: Glucometer 326H 09/09/20 00:25: Glucometer 304H 09/09/20 02:10: White Blood Count 8.4, Red Blood Count 4.42, Hemoglobin 14.1, Hematocrit 44, Mean Corpuscular Volume 101H, Mean Corpuscular Hemoglobin 32, Mean Corpuscular Hemoglobin Concent 32, Red Cell Distribution Width 13.4, Platelet Count 130, Mean Platelet Volume 11.4, Immature Granulocyte % (Auto) 1, Neutrophils (%) (Auto) 85H, Lymphocytes (%) (Auto) 9L, Monocytes (%) (Auto) 5, Eosinophils (%) (Auto) 0, Basophils (%) (Auto) 0, Neutrophils # (Auto) 7.1, Lymphocytes # (Auto) 0.8L, Monocytes # (Auto) 0.4, Eosinophils # (Auto) 0.0, Basophils # (Auto) 0.0, Immature Granulocyte # (Auto) 0.1, Sodium Level 140, Potassium Level 4.2, Chloride Level 106, Carbon Dioxide Level 21, Anion Gap 13, Blood Urea Nitrogen 32H, Creatinine 1.25, Estimat Glomerular Filtration Rate 60, BUN/Creatinine Ratio 26, Glucose Level 318H, Calcium Level 8.9, Phosphorus Level 3.9, Magnesium Level 1.9 Microbiology 09/05/20 Urine Culture - Final, Complete NO GROWTH 09/05/20 Gram Stain - Final, Complete 09/05/20 Sputum Culture - Final, Complete Usual upper respiratory yusra Staphylococcus aureus Yeast species Assessment/Plan Assessment/Plan Assess & Plan/Chief Complaint resp failure secondary aspiration pneumonitis/pneumonia with gastroccult postitive. colonoscopy done 18' with small benign polyp. Hb stable with no signs gross bleeding. will await EGD until more stable on this admission. ok to cont anticoag Clinical Quality Measures AMI/AHF: ASA po Prior to arrival: MOISÉS Mclaughlin MD Sep 09, 2020 10:50
--- NOTE | 2020-09-09 12:42 | Progress Note ---
Subjective Date Seen by a Provider: Sep 09, 2020 Time Seen by a Provider: 12:30 Subjective/Events-last exam Patient maintained on vent Updated Wean possibly tomorrow Talked to about [place] possibility No fever PEEP 8 Objective Exam Last Set of Vital Signs Vital Signs Date Time Temp Pulse Resp B/P (MAP) Pulse Ox O2 Delivery O2 Flow Rate FiO2 09/09/20 12:00 94 Mechanical Ventilator 70 09/09/20 11:20 36.8 09/09/20 10:35 93 24 09/09/20 10:13 151/94 09/09/20 06:00 55.00 Capillary Refill : Less Than 3 Seconds I&O Intake and Output 09/09/20 00:00 Intake Total 5260 ml Output Total 7025 ml Balance -1765 ml IV Total 5020 ml Other 240 ml Output Urine Total 6875 ml Gastric Drainage Total 150 ml General: Other (intubated, sedated) Lungs: Clear to Auscultation Heart: Regular Rate Results Lab Laboratory Tests 09/08/20 18:15: Glucometer 326H 09/09/20 00:25: Glucometer 304H 09/09/20 02:10: White Blood Count 8.4, Red Blood Count 4.42, Hemoglobin 14.1, Hematocrit 44, Mean Corpuscular Volume 101H, Mean Corpuscular Hemoglobin 32, Mean Corpuscular Hemoglobin Concent 32, Red Cell Distribution Width 13.4, Platelet Count 130, Mean Platelet Volume 11.4, Immature Granulocyte % (Auto) 1, Neutrophils (%) (Auto) 85H, Lymphocytes (%) (Auto) 9L, Monocytes (%) (Auto) 5, Eosinophils (%) (Auto) 0, Basophils (%) (Auto) 0, Neutrophils # (Auto) 7.1, Lymphocytes # (Auto) 0.8L, Monocytes # (Auto) 0.4, Eosinophils # (Auto) 0.0, Basophils # (Auto) 0.0, Immature Granulocyte # (Auto) 0.1, Sodium Level 140, Potassium Level 4.2, Chloride Level 106, Carbon Dioxide Level 21, Anion Gap 13, Blood Urea Nitrogen 32H, Creatinine 1.25, Estimat Glomerular Filtration Rate 60, BUN/Creatinine Ratio 26, Glucose Level 318H, Calcium Level 8.9, Phosphorus Level 3.9, Magnesium Level 1.9 09/09/20 11:19: Glucometer 268H Microbiology 09/05/20 Urine Culture - Final, Complete NO GROWTH 09/05/20 Gram Stain - Final, Complete 09/05/20 Sputum Culture - Final, Complete Usual upper respiratory yusra Staphylococcus aureus Yeast species Assessment/Plan Assessment/Plan Assess & Plan/Chief Complaint Assessment: VDRF PNA CRI Severe sleep apnea untreated and recent crisis causing hypercapnia and hypoxic acute on chronic respiratory failure intolerant to CPAP biPAP mask now meets criteria for vent to mask once extubated DM severe insulin resistant Chronic pain HTN CAD Angina COPD Plan: Intubation ABx Monitor closely 09/09/20: VDRF Monitor closely IV abx Diagnosis/Problems Diagnosis/Problems (1) Acute on chronic respiratory failure with hypoxia and hypercapnia Clinical Quality Measures Admission Status Admission Dx Assessment: Acute on chronic hypercapenic hypoxic respiratory failure Chest pain CAD RIAZ severe unable to tolerate biPAP and CPAP HTN CRI DM HLP Chronic pain Plan: ICU transfer ABG Dr Miriam Núñez AMI/AHF: ASA po Prior to arrival: IRINEO Simmons DO Sep 09, 2020 12:41
--- NOTE | 2020-09-09 14:10 | Cardiology Progress Note ---
Cardiology SOAP Progress Note Subjective: Intubated/ventilated. Objective: I&O/Vital Signs 09/09/20 09/09/20 09/09/20 09/09/20 02:29 03:00 04:00 04:00 Temp 36.8 Pulse 73 85 Resp 24 23 B/P (MAP) 156/92 (113) Pulse Ox 92 91 93 O2 Delivery Mechanical Ventilator Mechanical Ventilator O2 Flow Rate 55.00 FiO2 55 55 09/09/20 09/09/20 09/09/20 09/09/20 04:00 05:00 05:34 06:00 Pulse 79 73 73 70 Resp 22 23 24 B/P (MAP) 159/95 (116) 167/98 (121) 159/91 162/93 (116) Pulse Ox 91 92 92 O2 Delivery Mechanical Ventilator Mechanical Ventilator Mechanical Ventilator O2 Flow Rate 55.00 55.00 55.00 09/09/20 09/09/20 09/09/20 09/09/20 06:11 06:33 07:00 07:00 Pulse 73 88 91 93 Resp 24 23 B/P (MAP) 159/91 131/78 (95) Pulse Ox 92 92 O2 Delivery Mechanical Ventilator O2 Flow Rate 55.00 FiO2 55 09/09/20 09/09/20 09/09/20 09/09/20 07:21 08:00 08:00 09:00 Temp 36.9 Pulse 85 75 Resp 24 24 B/P (MAP) 143/84 (103) 148/92 (110) Pulse Ox 92 92 93 O2 Delivery Mechanical Ventilator Mechanical Ventilator Mechanical Ventilator O2 Flow Rate 55.00 55.00 FiO2 55 09/09/20 09/09/20 09/09/20 09/09/20 10:00 10:12 10:13 10:35 Pulse 69 87 85 93 Resp 24 24 B/P (MAP) 120/78 (92) 151/94 151/94 Pulse Ox 93 88 O2 Delivery Mechanical Ventilator O2 Flow Rate 55.00 FiO2 60 09/09/20 09/09/20 09/09/20 09/09/20 11:00 11:20 12:00 12:44 Temp 36.8 Pulse 100 Resp 23 B/P (MAP) 124/81 (95) Pulse Ox 91 94 O2 Delivery Mechanical Ventilator Mechanical Ventilator Mechanical Ventilator O2 Flow Rate 55.00 65.00 FiO2 70 09/09/20 12:46 Pulse Ox 94 O2 Delivery Mechanical Ventilator O2 Flow Rate 60.00 09/09/20 00:00 Intake Total 1820 ml Output Total 4450 ml Balance -2630 ml Weight (Pounds): 260 Weight (Ounces): 8.0 Weight (Calculated Kilograms): 117.413776 Constitutional: other (Intubated/ventilated.) Respiratory: chest is bilaterally symmetric, lungs clear to auscultation Cardiovascular: regular rate-rhythm, S1 and S2 Gastrointestional: soft, audible bowel sounds Extremities: no lower extremity edema bilateral Neurologic/Psychiatric: other (Intubated/ventilated.) Results/Procedures: Labs Laboratory Tests 09/08/20 18:15: Glucometer 326H 09/09/20 00:25: Glucometer 304H 09/09/20 02:10: White Blood Count 8.4, Red Blood Count 4.42, Hemoglobin 14.1, Hematocrit 44, Mean Corpuscular Volume 101H, Mean Corpuscular Hemoglobin 32, Mean Corpuscular Hemoglobin Concent 32, Red Cell Distribution Width 13.4, Platelet Count 130, Mean Platelet Volume 11.4, Immature Granulocyte % (Auto) 1, Neutrophils (%) (Auto) 85H, Lymphocytes (%) (Auto) 9L, Monocytes (%) (Auto) 5, Eosinophils (%) (Auto) 0, Basophils (%) (Auto) 0, Neutrophils # (Auto) 7.1, Lymphocytes # (Auto) 0.8L, Monocytes # (Auto) 0.4, Eosinophils # (Auto) 0.0, Basophils # (Auto) 0.0, Immature Granulocyte # (Auto) 0.1, Sodium Level 140, Potassium Level 4.2, Chloride Level 106, Carbon Dioxide Level 21, Anion Gap 13, Blood Urea Nitrogen 32H, Creatinine 1.25, Estimat Glomerular Filtration Rate 60, BUN/Creatinine Ratio 26, Glucose Level 318H, Calcium Level 8.9, Phosphorus Level 3.9, Magnesium Level 1.9 09/09/20 11:19: Glucometer 268H Microbiology 09/05/20 Urine Culture - Final, Complete NO GROWTH 09/05/20 Gram Stain - Final, Complete 09/05/20 Sputum Culture - Final, Complete Usual upper respiratory yusra Staphylococcus aureus Yeast species A/P: Assessment/Dx: Chest pain-on admission Acute respiratory failure, intubated/ventilated Hypertension Hyperlipidemia Obstructive sleep apnea DM2, non-insulin dependent Plan: Acute respiratory failure, multifactorial, probably due to respiratory suppression from CO2 narcosis and CT scan suggestive of pneumonia, ventilator dependent, managed by primary care team. Chest pain, probably noncardiac, cardiac enzymes and EKG did not show any acute abnormality, on admission, chest pain was out of proportion from any cardiac event. Continue to monitor Coronary artery disease, patient had non-ST elevation myocardial infarction, underwent cardiac catheterization on April 11, 2019 revealing subtotal occlusion with diffuse ectasia in the distal right coronary artery, complex intervention requiring guide liner and multiple balloons, then deployment of Maday 423 mm stent with excellent results. Proximal RCA has diffuse ectasia with 50 percent stenosis, distal right PDA subtotally occluded, fairly small artery, will be treated medically. Severe stenosis at the distal circumflex artery with long lesion involving the obtuse marginal branch, proper circumflex and AV groove branch, all arteries are less than 2 mm in diameter. 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 Mild to moderate ectasia in LAD with mild to moderate disease diffusely, nonobstructive disease. Underwent cardiac catheterization on May 03, [address] Cartagena with 2.2532 mm Promus drug-eluting stent to the circumflex artery. Underwent repeat cardiac catheterization on May 21, 2019 revealing multivessel CAD with FFR confirmation of uho-fngq-koeaebqh disease in RCA and flow-limiting disease in mid LAD. Pjb-hxyh-kmhvhwyd in proximal LAD. [id number] Synergy stent to mid LAD. Cardiac catheterization done June 10, 2019 with 2.0x 12mm drug eluting [place] stent to first diagonal. Maintained on Effient and aspirin. Cardiac cath performed by Dr. Núñez on July 18, 2020 revealed moderate to severe ostial ramus intermedius branch that is small to moderate in size. Distal disease, medical therapy is recommended, tortuous LAD with moderate disease in a small diagonal artery that could be responsible for the chest pain, diffuse ectasia in the right coronary artery with patent stent, small vessel disease distally, small vessel disease in the circumflex artery distally, normal left ventricular end-diastolic pressure. Hypertension, monitor blood pressure Hyperlipidemia, continue pitavastatin, fenofibrate. Repatha as outpatient. DM2, insulin dependent. Per primary team. RIAZ, noncompliant with BiPAP. Working on referral to Sleep Center in [place], [place]. Nighttime BiPAP. Monitor closely. Right hip/back pain, per primary team. Tobaccoism, recommend complete cessation. Extensive family history of heart disease and stroke. Thank you for your consultation. Please call me if you have any questions. Federico Maxwell MD, FACP, FACC, FSCAI, FHRS, CCDS Interventional Cardiology Cardiac Electrophysiology Vascular Medicine and Endovascular Interventions Clinical Quality Measures AMI/AHF: ASA po Prior to arrival: Adelaida Carpio MD Sep 09, 2020 14:10
[2020-09-09] MEDS ORDERED: BUMETANIDE 1 MG/4 ML (BUMEX) VIAL ONE (15:43)
[2020-09-09] MEDS ORDERED: BUMETANIDE 1 MG/4 ML (BUMEX) VIAL IV ONE (15:45)
--- NOTE | 2020-09-09 17:09 | Diagnostic Imaging Report ---
EXAMINATION: Chest 1 view. HISTORY: Endotracheal tube placement. COMPARISON: 09/09/2020. FINDINGS: An endotracheal tube is visualized overlying the trachea, approximately 5 cm above the donis. Lung volumes are low. Cardiomegaly with central thoracic congestion and hazy perihilar and basilar opacities are again noted. Possible small left pleural effusion is present. No pneumothorax. No acute osseous abnormality. IMPRESSION: 1. Endotracheal tube appropriately positioned. 2. Cardiomegaly with central pulmonary vascular congestion and pulmonary edema. This is not significantly changed since the prior exam. Dictated by: Dictated on workstation # [id number]
[2020-09-10] VITALS (16 sets, daily range): BP systolic 119–158; BP diastolic 77–96
[2020-09-10] MEDS: PROPOFOL DRIP (ICU) 100 ML IV SCH ×4 (00:13→11:20)
[2020-09-10] MEDS: fentaNYL DRIP PRE-MIX 250 ML IV SCH ×3 (00:46→11:57)
[2020-09-10] MEDS: DexMEDEtomidine 250 ML DRIP 250 ML IV SCH ×3 (01:47→11:20)
[2020-09-10] MEDS: RT-ALBUTEROL/IPRATROPIUM 3 ML (DUONEB) VIAL INH SCH ×3 (02:31→10:05)
[2020-09-10 03:39] LABS: BASOPHILS % (AUTO) 0 % (0-10); EOSINOPHILS % (AUTO) 0 % (0-10); HEMATOCRIT 46 % (40-54); HEMOGLOBIN 14.4 g/dL (13.3-17.7); LYMPHOCYTES # (AUTO) 0.6 10^3/uL (1.0-4.0); LYMPHOCYTES % (AUTO) 6 % (12-44); MEAN CORPUSCULAR HEMOGLOBIN 32 pg (25-34); MEAN CORPUSCULAR HGB CONC 32 g/dL (32-36); MEAN CORPUSCULAR VOLUME 100 fL (80-99); MONOCYTES # (AUTO) 0.5 10^3/uL (0.0-1.0); MONOCYTES % (AUTO) 6 % (0-12); NEUTROPHILS # (AUTO) 7.7 10^3/uL (1.8-7.8); NEUTROPHILS % (AUTO) 87 % (42-75); PLATELET COUNT 146 10^3/uL (130-400); WHITE BLOOD COUNT 8.9 10^3/uL (4.3-11.0)
[2020-09-10 03:40] LABS: ABG BASE EXCESS 1.6 MMOL/L (-2.5-2.5); ABG OXYGEN SATURATION 94 % (94-100); ABG PCO2 39 MMHG (35-45); ABG PH 7.43 (7.37-7.43); ABG PO2 69 MMHG (79-93); ABG TCO2 26.9 MMOL/L (21.0-31.0)
[2020-09-10 03:46] LABS: ALLENS TEST YES-POS; INSPIRED O2 70%; PATIENT TEMP 36.6; VENTILATOR YES
[2020-09-10 03:54] LABS: CHLORIDE 104 MMOL/L (98-107); SODIUM 140 MMOL/L (135-145)
[2020-09-10 03:56] LABS: CALCIUM 8.8 MG/DL (8.5-10.1); GLUCOSE 339 MG/DL (70-105)
[2020-09-10 03:58] LABS: CARBON DIOXIDE 22 MMOL/L (21-32)
--- NOTE | 2020-09-10 03:58 | Pulmonary Progress Note ---
Subjective Time Seen by a Provider: 03:52 Subjective/Events-last exam Pt is sedated on vent. Sepsis Event Evaluation Height, Weight, BMI Height: 5'11.00" Weight: 260lbs. 8.0oz. 117.975756pl; 42.12 BMI Method:Stated Exam Exam Vital Signs Date Time Temp Pulse Resp B/P (MAP) Pulse Ox O2 Delivery O2 Flow Rate FiO2 09/10/20 03:25 36.6 09/10/20 03:25 93 Mechanical Ventilator 65.00 09/10/20 02:31 98 25 92 70 09/10/20 01:47 101 09/10/20 01:08 100 09/10/20 01:00 101 24 136/82 (100) 91 Mechanical Ventilator 70.00 09/10/20 00:13 131/85 09/10/20 00:00 93 Mechanical Ventilator 75 09/10/20 00:00 107 18 119/78 (92) 92 Mechanical Ventilator 70.00 09/09/20 23:48 36.5 109 23 91 Mechanical Ventilator 70.00 09/09/20 23:00 105 32 130/85 (100) 91 Mechanical Ventilator 70.00 09/09/20 22:25 92 24 92 70 09/09/20 22:00 95 25 127/82 (97) 92 Mechanical Ventilator 70.00 09/09/20 21:46 93 Mechanical Ventilator 70.00 09/09/20 21:00 98 24 141/90 (107) 92 Mechanical Ventilator 75.00 09/09/20 20:27 131/90 09/09/20 20:00 93 Mechanical Ventilator 75 09/09/20 20:00 99 24 132/86 (101) 92 Mechanical Ventilator 75.00 09/09/20 19:59 36.6 09/09/20 19:40 99 24 154/101 (118) 93 Mechanical Ventilator 75.00 09/09/20 19:40 154/101 09/09/20 19:00 101 09/09/20 19:00 94 Mechanical Ventilator 80.00 09/09/20 19:00 128 22 141/93 (109) 93 Mechanical Ventilator 80.00 09/09/20 18:58 101 26 93 80 09/09/20 18:30 94 Mechanical Ventilator 80.00 09/09/20 18:00 99 21 134/85 (101) 92 Mechanical Ventilator 90.00 09/09/20 17:18 94 Mechanical Ventilator 90.00 09/09/20 17:00 103 25 121/78 (92) 93 Mechanical Ventilator 100.00 09/09/20 16:20 93 Mechanical Ventilator 100 09/09/20 16:03 100 09/09/20 16:00 110 14 121/81 (94) Mechanical Ventilator 100.00 09/09/20 15:45 36.0 09/09/20 15:41 Mechanical Ventilator 100.00 09/09/20 15:16 92 100/62 09/09/20 15:00 90 23 110/66 (81) 90 Mechanical Ventilator 60.00 09/09/20 14:39 90 24 90 70 09/09/20 14:22 89 137/79 09/09/20 14:00 73 19 111/67 (82) 92 Mechanical Ventilator 60.00 09/09/20 13:00 84 09/09/20 13:00 80 23 158/101 (120) 93 Mechanical Ventilator 60.00 09/09/20 12:46 94 Mechanical Ventilator 60.00 09/09/20 12:44 Mechanical Ventilator 65.00 09/09/20 12:00 91 24 155/97 (116) 92 Mechanical Ventilator 55.00 09/09/20 12:00 94 Mechanical Ventilator 70 09/09/20 11:20 36.8 09/09/20 11:00 100 23 124/81 (95) 91 Mechanical Ventilator 55.00 09/09/20 10:35 93 24 88 60 09/09/20 10:13 85 151/94 09/09/20 10:12 87 151/94 09/09/20 10:00 69 24 120/78 (92) 93 Mechanical Ventilator 55.00 09/09/20 09:00 75 24 148/92 (110) 93 Mechanical Ventilator 55.00 09/09/20 08:00 92 Mechanical Ventilator 55 09/09/20 08:00 85 24 143/84 (103) 92 Mechanical Ventilator 55.00 09/09/20 07:21 36.9 09/09/20 07:00 93 23 131/78 (95) 92 Mechanical Ventilator 55.00 09/09/20 07:00 91 09/09/20 06:33 88 24 92 55 09/09/20 06:11 73 159/91 09/09/20 06:00 70 24 162/93 (116) 92 Mechanical Ventilator 55.00 09/09/20 05:34 73 159/91 09/09/20 05:00 73 23 167/98 (121) 92 Mechanical Ventilator 55.00 09/09/20 04:00 79 22 159/95 (116) 91 Mechanical Ventilator 55.00 09/09/20 04:00 93 Mechanical Ventilator 55 09/09/20 04:00 36.8 I & O 09/10/20 07:00 Intake Total 2230 ml Output Total 5775 ml Balance -3545 ml Height & Weight Height: 5'11.00" Weight: 260lbs. 8.0oz. 117.110068yy; 42.12 BMI Method:Stated General Appearance: No Apparent Distress HEENT: PERRL/EOMI Neck: Full Range of Motion Respiratory: Chest Non Tender, Rhonci, Wheezing Cardiovascular: Regular Rate, Rhythm Capillary Refill: Less Than 3 Seconds Gastrointestinal: normal bowel sounds, non tender, soft Extremity: Normal Capillary Refill Neurologic/Psychiatric: Alert, Oriented x3 Skin: Normal Color Lymphatic: No Adenopathy Results Lab Laboratory Tests 09/09/20 02:10 09/10/20 03:15 Assessment/Plan Assessment/Plan Acute on chronic respiratory failure r/o DVT -Vent 470, 26, 10 -Intubated 09/03 -Pt is not ready for vent weaning yet. -Consider [facility] -CTA -- shows atelectasis and bilateral PNA . No PE -Continue Zosyn -Check Bilateral dopplers -Negative -Echo-- 55-60% with grade 1 diastolic dysfunction -decrease Lovenox to PPX Stage 1 diastolic CHF with EF 55-65% -Monitor Leukocytois - secondary to PNA and steroids -Pt is on solumedrol -Zosyn start 09/06 HTN -Add daily Lopressor and PRN Hydralazine. Morbid obesity with RIAZ -Pt would benefit from vent to mask prior to discharge. Acute CP -Cardiology consulted -Troponin negative thus far Tobacco dependance -Education DM -Monitor -SSI HTN BIANCA CARR DO Sep 10, 2020 03:58
[2020-09-10 04:00] LABS: CREATININE SERUM 1.15 MG/DL (0.60-1.30); GFR ESTIMATED > 60; PHOSPHORUS 3.5 MG/DL (2.3-4.7)
[2020-09-10] MEDS ORDERED: FUROSEMIDE 40 MG/4 ML INJ (LASIX) IVP ONE (04:00)
[2020-09-10 04:01] LABS: BUN/CREATININE RATIO 35
[2020-09-10] MEDS: PIPERACILLIN/TAZOBACTAM (BULK) 4.5 GM in NS (IVPB) 100 ML IV SCH ×2 (04:48→11:19)
[2020-09-10 06:00] LABS: ABG BASE EXCESS 2.7 MMOL/L (-2.5-2.5); ABG OXYGEN SATURATION 96 % (94-100); ABG PCO2 42 MMHG (35-45); ABG PH 7.42 (7.37-7.43); ABG PO2 78 MMHG (79-93); ABG TCO2 28.2 MMOL/L (21.0-31.0)
[2020-09-10 06:05] LABS: ALLENS TEST YES-POS; INSPIRED O2 65%; PATIENT TEMP 36.3; VENTILATOR YES
[2020-09-10] MEDS: inSUlin ASPART (NovoLOG) 1 UNIT/0.01 ML (CHARGE PER UNIT) SC SCH ×2 (06:40→11:36)
[2020-09-10] MEDS: methylPREDNISolone 40 MG/ML (Solu-MEDROL) VIAL IV SCH ×2 (06:40→11:19)
[2020-09-10] MEDS: aCETylcysteine 20% (MUCOMYST) 30ML SOLN VIAL PO SCH (06:53)
--- NOTE | 2020-09-10 08:07 | Diagnostic Imaging Report ---
Indication: Chest pain. Time of exam 3:09 AM Correlation is made with prior chest one day earlier. ET tube is above the donis. There are areas of infiltrate or atelectasis in both bases however this does appear to be improved in the right base and is about the same in the left base. There may be a small left effusion as well. Upper lung mcintyre are clear. There is no pneumothorax. IMPRESSION: Bibasilar infiltrates/atelectasis showing some improved aeration right base when compared to examination one day earlier. Dictated by: Dictated on workstation # [id number]
--- NOTE | 2020-09-10 08:46 | Progress Note - Cardiology ---
Cardiology SOAP Progress Note Subjective: Intubated and sedated Objective: I&O/Vital Signs 09/09/20 09/09/20 09/09/20 09/09/20 21:00 21:46 22:00 22:25 Pulse 98 95 92 Resp 24 25 24 B/P (MAP) 141/90 (107) 127/82 (97) Pulse Ox 92 93 92 92 O2 Delivery Mechanical Ventilator Mechanical Ventilator Mechanical Ventilator O2 Flow Rate 75.00 70.00 70.00 FiO2 70 09/09/20 09/09/20 09/10/20 09/10/20 23:00 23:48 00:00 00:00 Temp 36.5 Pulse 105 109 107 Resp 32 18 B/P (MAP) 130/85 (100) 119/78 (92) Pulse Ox 91 91 92 93 O2 Delivery Mechanical Ventilator Mechanical Ventilator Mechanical Ventilator M echanical Ventilator O2 Flow Rate 70.00 70.00 70.00 FiO2 75 09/10/20 09/10/20 09/10/20 09/10/20 00:13 01:00 01:08 01:47 Pulse 101 100 101 Resp 24 B/P (MAP) 131/85 136/82 (100) Pulse Ox 91 O2 Delivery Mechanical Ventilator O2 Flow Rate 70.00 09/10/20 09/10/20 09/10/20 09/10/20 02:00 02:31 03:00 03:25 Pulse 103 98 105 Resp B/P (MAP) 126/81 (96) 123/77 (92) Pulse Ox 92 92 90 93 O2 Delivery Mechanical Ventilator Mechanical Ventilator Mechanical Ventilator O2 Flow Rate 70.00 70.00 65.00 FiO2 70 09/10/20 09/10/20 09/10/20 09/10/20 03:25 04:00 04:00 04:49 Temp 36.6 Pulse 116 Resp 26 B/P (MAP) 141/87 (105) 141/87 Pulse Ox 93 94 O2 Delivery Mechanical Ventilator Mechanical Ventilator O2 Flow Rate 65.00 FiO2 75 09/10/20 09/10/20 09/10/20 09/10/20 05:00 06:00 06:40 06:53 Pulse 101 95 94 116 Resp 17 29 B/P (MAP) 132/84 (100) 132/89 (103) Pulse Ox 93 93 92 O2 Delivery Mechanical Ventilator Mechanical Ventilator O2 Flow Rate 65.00 65.00 FiO2 65 4/19/21 4/19/21 4/19/21 07:00 07:59 07:59 Pulse 98 96 B/P (MAP) 135/91 O2 Delivery Mechanical Ventilator O2 Flow Rate 60.00 09/10/20 00:00 Intake Total 1050 ml Output Total 4250 ml Balance -3200 ml Weight (Pounds): 260 Weight (Ounces): 8.0 Weight (Calculated Kilograms): 117.977276 Constitutional: other (Intubated/ventilated.) Respiratory: chest is bilaterally symmetric, lungs clear to auscultation Cardiovascular: regular rate-rhythm, S1 and S2 Gastrointestional: soft, audible bowel sounds Extremities: no lower extremity edema bilateral Neurologic/Psychiatric: other (Intubated/ventilated.) Results/Procedures: Labs Laboratory Tests 09/09/20 11:19: Glucometer 268H 09/09/20 17:31: Glucometer 303H 09/09/20 23:47: Glucometer 320H 09/10/20 03:15: White Blood Count 8.9, Red Blood Count 4.56, Hemoglobin 14.4, Hematocrit 46, Mean Corpuscular Volume 100H, Mean Corpuscular Hemoglobin 32, Mean Corpuscular Hemoglobin Concent 32, Red Cell Distribution Width 13.5, Platelet Count 146, Mean Platelet Volume 12.0, Immature Granulocyte % (Auto) 1, Neutrophils (%) (Auto) 87H, Lymphocytes (%) (Auto) 6L, Monocytes (%) (Auto) 6, Eosinophils (%) (Auto) 0, Basophils (%) (Auto) 0, Neutrophils # (Auto) 7.7, Lymphocytes # (Auto) 0.6L, Monocytes # (Auto) 0.5, Eosinophils # (Auto) 0.0, Basophils # (Auto) 0.0, Immature Granulocyte # (Auto) 0.1, Sodium Level 140, Potassium Level 4.0, Chloride Level 104, Carbon Dioxide Level 22, Anion Gap 14, Blood Urea Nitrogen 40H, Creatinine 1.15, Estimat Glomerular Filtration Rate > 60, BUN/Creatinine Ratio 35, Glucose Level 339H, Calcium Level 8.8, Phosphorus Level 3.5, Magnesium Level 2.0, B-Type Natriuretic Peptide 64.7 09/10/20 03:20: Blood Gas Puncture Site RIGHT RADIAL, Blood Gas Patient Temperature 36.6, Arterial Blood pH 7.43, Arterial Blood Partial Pressure CO2 39, Arterial Blood Partial Pressure O2 69L, Arterial Blood HCO3 26, Arterial Blood Total CO2 26.9, Arterial Blood Oxygen Saturation 94, Arterial Blood Base Excess 1.6, Janusz Test YES-POS, Blood Gas Ventilator Setting YES, Blood Gas Inspired Oxygen 70% 09/10/20 05:50: Blood Gas Puncture Site RIGHT RADIAL, Blood Gas Patient Temperature 36.3, Arterial Blood pH 7.42, Arterial Blood Partial Pressure CO2 42, Arterial Blood Partial Pressure O2 78L, Arterial Blood HCO3 27, Arterial Blood Total CO2 28.2, Arterial Blood Oxygen Saturation 96, Arterial Blood Base Excess 2.7H, Janusz Test YES-POS, Blood Gas Ventilator Setting YES, Blood Gas Inspired Oxygen 65% Microbiology 09/05/20 Urine Culture - Final, Complete NO GROWTH 09/05/20 Gram Stain - Final, Complete 09/05/20 Sputum Culture - Final, Complete Usual upper respiratory yusra Staphylococcus aureus Yeast species Laboratory Tests 09/09/20 02:10 09/10/20 03:15 Procedures NAME: LUCI MCMULLEN [facility] REC#: [id number] PT STATUS: ADM IN : 1965 PHYSICIAN: IRINEO GONSALEZ DO ADMIT DATE: 09/05/20/ICU Draft Date of Exam:09/10/20 CHEST 1 VIEW, AP/PA ONLY Indication: Chest pain. Time of exam 3:09 AM Correlation is made with prior chest one day earlier. ET tube is above the donis. There are areas of infiltrate or atelectasis in both bases however this does appear to be improved in the right base and is about the same in the left base. There may be a small left effusion as well. Upper lung mcintyre are clear. There is no pneumothorax. IMPRESSION: Bibasilar infiltrates/atelectasis showing some improved aeration right base when compared to examination one day earlier. Dictated on workstation # [id number] Dict: 09/10/20803 Trans: 09/10/20806 [facility] [id number] Interpreted by: VANDANA GROVER MD Electronically signed by: A/P: Assessment: Acute respiratory failure, multifactorial, probably due to respiratory suppression from CO2 narcosis and CT scan suggestive of pneumonia, ventilator dependent, managed by primary care team. Chest pain, probably noncardiac, cardiac enzymes and EKG did not show any acute abnormality, on admission, chest pain was out of proportion from any cardiac event. Continue to monitor Coronary artery disease, - patient had non-ST elevation myocardial infarction, underwent cardiac catheterization on April 11, 2019 revealing subtotal occlusion with diffuse ectasia in the distal right coronary artery, complex intervention requiring guide liner and multiple balloons, then deployment of Maday 423 mm stent with excellent results. Proximal RCA has diffuse ectasia with 50 percent stenosis, distal right PDA subtotally occluded, fairly small artery, will be treated medically. Severe stenosis at the distal circumflex artery with long lesion i nvolving the obtuse marginal branch, proper circumflex and AV groove branch, all arteries are less than 2 mm in diameter. 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 Mild to moderate ectasia in LAD with mild to moderate disease diffusely, nonobstructive disease. Underwent cardiac catheterization on May 03, [address] Cartagena with 2.2532 mm P romus drug-eluting stent to the circumflex artery. Underwent repeat cardiac catheterization on May 21, 2019 revealing multivessel CAD with FFR confirmation of [id number] disease in RCA and flow-limiting disease in mid LAD. [id number] in proximal LAD. 2.78t45dy Synergy stent to mid LAD. - Cardiac catheterization done June 10, 2019 with 2.0x 12mm drug eluting Cristopher stent to first diagonal. - Cardiac cath performed by Dr. Núñez on July 18, 2020 revealed moderate to severe ostial ramus intermedius branch that is small to moderate in size. Distal disease, medical therapy is recommended, tortuous LAD with moderate disease in a small diagonal artery that could be responsible for the chest pain, diffuse ectasia in the right coronary artery with patent stent, small vessel disease distally, small vessel disease in the circumflex artery distally, normal left ventricular end-diastolic pressure. Hypertension Hyperlipidemia, continue pitavastatin, fenofibrate. Repatha as outpatient. DM2, insulin dependent RIAZ, has been noncompliant with BiPAP H/O right hip/back pain, Tobaccoism, recommend complete cessation. Extensive family history of heart disease and stroke. Plan: Continue current regimen Monitor lab closely Replace electrolytes as indicated Management of resp failure per medical/ICU services Possible transfer to [place] Clinical Quality Measures AMI/AHF: ASA po Prior to arrival: HOLLY Perez Sep 10, 2020 08:46
[2020-09-10] MEDS: ASPIRIN E.C. 81 MG (ECOTRIN) TAB PO SCH (08:48)
[2020-09-10] MEDS: meTOprolol TARTRATE 25 MG (LOPRESSOR) TABLET PO SCH (08:48)
[2020-09-10] MEDS: ENOXAPARIN 40 MG/0.4 ML (LOVENOX) SYR SC SCH (08:48)
[2020-09-10] MEDS: PANTOPRAZOLE 40 MG (PROTONIX) VIAL IV SCH (09:11)
--- NOTE | 2020-09-10 11:06 | Progress Note ---
JANET EMERY, MED STUDENT 09/10/20 1106: Subjective Subjective/Events-last exam Patient is intubated and sedated this morning, no acute events overnight. Objective Exam Last Set of Vital Signs Vital Signs Date Time Temp Pulse Resp B/P (MAP) Pulse Ox O2 Delivery O2 Flow Rate FiO2 09/10/20 10:05 85 24 92 40 09/10/20 09:38 Mechanical Ventilator 40.00 09/10/20 09:00 154/84 (107) 09/10/20 08:58 36.4 Capillary Refill : Less Than 3 Seconds I&O Intake and Output 09/10/20 00:00 Intake Total 2710 ml Output Total 7375 ml Balance -4665 ml IV Total 2550 ml Tube Feeding 40 ml Other 120 ml Output Urine Total 7225 ml Gastric Drainage Total 150 ml General: Other (Intubated and sedated) HEENT: Atraumatic Neck: Supple, No JVD Lungs: Other (Ventilator breath sounds present) Heart: Regular Rate, Normal S1, Normal S2, No Murmurs Abdomen: Normal Bowel Sounds, Soft, No Tenderness, No Hepatosplenomegaly Extremities: No Clubbing, No Cyanosis, No Edema, Normal Pulses Skin: No Rashes, No Breakdown, No Significant Lesion Neuro: Other (Intubated and sedated, unable to follow commands) Results Lab Laboratory Tests 09/09/20 11:19: Glucometer 268H 09/09/20 17:31: Glucometer 303H 09/09/20 23:47: Glucometer 320H 09/10/20 03:15: White Blood Count 8.9, Red Blood Count 4.56, Hemoglobin 14.4, Hematocrit 46, Mean Corpuscular Volume 100H, Mean Corpuscular Hemoglobin 32, Mean Corpuscular Hemoglobin Concent 32, Red Cell Distribution Width 13.5, Platelet Count 146, Mean Platelet Volume 12.0, Immature Granulocyte % (Auto) 1, Neutrophils (%) (Auto) 87H, Lymphocytes (%) (Auto) 6L, Monocytes (%) (Auto) 6, Eosinophils (%) (Auto) 0, Basophils (%) (Auto) 0, Neutrophils # (Auto) 7.7, Lymphocytes # (Auto) 0.6L, Monocytes # (Auto) 0.5, Eosinophils # (Auto) 0.0, Basophils # (Auto) 0.0, Immature Granulocyte # (Auto) 0.1, Sodium Level 140, Potassium Level 4.0, Chloride Level 104, Carbon Dioxide Level 22, Anion Gap 14, Blood Urea Nitrogen 40H, Creatinine 1.15, Estimat Glomerular Filtration Rate > 60, BUN/Creatinine Ratio 35, Glucose Level 339H, Calcium Level 8.8, Phosphorus Level 3.5, Magnesium Level 2.0, B-Type Natriuretic Peptide 64.7 09/10/20 03:20: Blood Gas Puncture Site RIGHT RADIAL, Blood Gas Patient Temperature 36.6, Arterial Blood pH 7.43, Arterial Blood Partial Pressure CO2 39, Arterial Blood Partial Pressure O2 69L, Arterial Blood HCO3 26, Arterial Blood Total CO2 26.9, Arterial Blood Oxygen Saturation 94, Arterial Blood Base Excess 1.6, Janusz Test YES-POS, Blood Gas Ventilator Setting YES, Blood Gas Inspired Oxygen 70% 09/10/20 05:50: Blood Gas Puncture Site RIGHT RADIAL, Blood Gas Patient Temperature 36.3, Arterial Blood pH 7.42, Arterial Blood Partial Pressure CO2 42, Arterial Blood Partial Pressure O2 78L, Arterial Blood HCO3 27, Arterial Blood Total CO2 28.2, Arterial Blood Oxygen Saturation 96, Arterial Blood Base Excess 2.7H, Janusz Test YES-POS, Blood Gas Ventilator Setting YES, Blood Gas Inspired Oxygen 65% Microbiology 09/05/20 Urine Culture - Final, Complete NO GROWTH 09/05/20 Gram Stain - Final, Complete 09/05/20 Sputum Culture - Final, Complete Usual upper respiratory yusra Staphylococcus aureus Yeast species Assessment/Plan Assessment/Plan Assess & Plan/Chief Complaint Mr. Tarun Negron is a 54 y/o M w/ PMH of CAD, esophageal strictures, and RIAZ presenting for chest pain and alerted mental status #Chest pain #Pneumonia - Unclear if chest pain or abdominal pain - EKG unremarkable - Troponins negative - D-dimer negative - Cardiology consult pending - Cath 2 months ago -> negative significant coronary disease s/p stenting 2 years ago - CTA 2 months ago -> negative for PEs - EGD schedule w/ GI for later in August - Already had previous appendectomy - Amylase/lipase unremarkable - RUQ US unremarkable for cholecystitis - CTA negative for PEs - CTA demonstrated bilateral multifocal pneumonia - WBC 8.9 this morning - Sputum Cultures demonstrate staph aureus growth Plan: > Likely 2/2 to PNA > Continue zosyn > Continue LR > WBC count trending downward > Continue steroids #AMS #RIAZ #AHRF - B/l RIAZ, refused CPAP and BiPAP - Now intubated and sedated due to hypercarbia and AMS - Vent: 450/24/60/14 today - Echo -> Grade 1 diastolic dysfunction - ABG 7./ Plan: > Improved pH and CO2 on ABG, continue to wean off vent as able > Pulm/CC following #CHF - New dx - Echo -> Grade 1 diastolic dysfunction - Hx of longstanding RIAZ w/ noncompliance on CPAP - Previous CXR showed vascular congestion - S/p furosemide and bumex on 09/09 - BP 132/89 this morning - Negative 4.5L u/o yesterday, negative 2L u/o this morning - Hr 116 Plan: > Likely overdiuresed yesterday resulting in tachycardia today > Hold diuretics > Cardiology following #DM - Sliding scale insuline Plan: > Monitor blood sugars #HTN - 132/89 this morning Plan: > Continue [employer] meds > Bp improved w/ diuresis #HLD 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 Tarun Negron is a 54 y/o M w/ PMH of CAD, esophageal strictures, and RIAZ presenting for chest pain and alerted mental status #Chest pain - Unclear if chest pain or abdominal pain - EKG unremarkable - Troponins negative - D-dimer negative - Cardiology consult pending - Cath 2 months ago -> negative significant coronary disease s/p stenting 2 yea rs ago - CTA 2 months ago -> negative for PEs - EGD schedule w/ GI for later in August - Already had previous appendectomy Plan: > Amylase/lipase > RUQ US > Cardiology consult for ACS r/o > Hold morphine > GI cocktail > Continue aspirin 81mg > Fluids #AMS - Somnolent later this morning w/ difficulty staying awake - Refused CPAP overnight - ABG 7.//57/31 - 4L O2 mask Plan: > admit to ICU > BiPAP > Likely 2/2 to RIAZ > Fluids > Hold morphine #DM - Sliding scale insuline Plan: > Monitor blood sugars #HTN - 133/89 Plan: > Continue EM[employer]OYEE [employer]ACEMENT SPECIALIST meds #HLD Plan: >Continue EM[employer]OYEE [employer]ACEMENT SPECIALIST meds #Hip pain - Continue to monitor Plan: > Hold morphine for decreased respiratory function > Hold NSAIDs for poor baseline renal function > Can consider tylenol use Dispo: Admit to ICU AMI/AHF: ASA po Prior to arrival: Kia PAT GONSALEZ DO 09/11/20 0517: Subjective Date Seen by a Provider: Sep 10, 2020 Time Seen by a Provider: 09:30 Subjective/Events-last exam Feeding of [employer] 20cc an hour WC normal at 8.9 ABG reviewed PEEP at 14 Proton pump inhibitor initiated for GI bleed Zosyn for pneumonia [facility] will be consulted Objective Exam General: Other (Intubated and sedated) Heart: Regular Rate Assessment/Plan Assessment/Plan Assess & Plan/Chief Complaint [facility] transfer Supervisory-Addendum Brief Verification & Attestation Participated in pt care: history, MDM, physical Personally performed: exam, history, MDM, supervision of care Care discussed with: Medical Student Procedures: n/a Results interpretation: Verified all documentation Verification and Attestation of Medical Student E/M Service A medical student performed and documented this service in my presence. I reviewed and verified all information documented by the medical student and made modifications to such information, when appropriate. I personally performed the physical exam and medical decision making. Pat Gonsalez, Sep 11, 2020,05:16 JANET EMERY, MED STUDENT Sep 10, 2020 11:06 PAT GONSALEZ DO Sep 11, 2020 05:17
--- NOTE | 2020-09-10 18:43 | Progress Note - Cardiology ---
Cardiology SOAP Progress Note Subjective: On mech vent, unresponsive Objective: I&O/Vital Signs 09/10/20 09/10/20 09/10/20 09/10/20 06:53 07:00 07:00 07:59 Pulse 116 95 98 96 Resp 29 33 B/P (MAP) 135/90 (105) 135/91 Pulse Ox 92 95 O2 Delivery Mechanical Ventilator O2 Flow Rate 60.00 FiO2 65 09/10/20 09/10/20 09/10/20 09/10/20 07:59 08:00 08:00 08:58 Temp 36.4 Pulse 96 Resp 24 B/P (MAP) 152/90 (110) Pulse Ox 95 95 O2 Delivery Mechanical Ventilator Mechanical Ventilator Mechanical Ventilator O2 Flow Rate 60.00 60.00 FiO2 60 09/10/20 09/10/20 09/10/20 09/10/20 09:00 09:09 09:38 10:00 Pulse 92 85 Resp 24 23 B/P (MAP) 154/84 (107) 147/93 (111) Pulse Ox 96 92 O2 Delivery Mechanical Ventilator Mechanical Ventilator Mechanical Ventilator Me chanical Ventilator O2 Flow Rate 60.00 50.00 40.00 40.00 09/10/20 09/10/20 09/10/20 09/10/20 10:05 11:00 11:20 11:20 Pulse 85 97 97 97 Resp 24 24 B/P (MAP) 153/94 (113) 153/94 153/94 Pulse Ox 92 92 O2 Delivery Mechanical Ventilator O2 Flow Rate 40.00 FiO2 40 09/10/20 09/10/20 11:25 12:54 Temp 36.4 Pulse Ox 93 O2 Delivery Mechanical Ventilator FiO2 40 09/09/20 23:59 Intake Total 1050 ml Output Total 4250 ml Balance -3200 ml Weight (Pounds): 260 Weight (Ounces): 8.0 Weight (Calculated Kilograms): 117.824738 Constitutional: other (Intubated/ventilated.) Respiratory: chest is bilaterally symmetric, lungs clear to auscultation Cardiovascular: regular rate-rhythm, S1 and S2 Gastrointestional: soft, audible bowel sounds Extremities: no lower extremity edema bilateral Neurologic/Psychiatric: other (Intubated/ventilated.) Results/Procedures: Labs Laboratory Tests 09/09/20 23:47: Glucometer 320H 09/10/20 03:15: White Blood Count 8.9, Red Blood Count 4.56, Hemoglobin 14.4, Hematocrit 46, Mean Corpuscular Volume 100H, Mean Corpuscular Hemoglobin 32, Mean Corpuscular Hemoglobin Concent 32, Red Cell Distribution Width 13.5, Platelet Count 146, Mean Platelet Volume 12.0, Immature Granulocyte % (Auto) 1, Neutrophils (%) (Auto) 87H, Lymphocytes (%) (Auto) 6L, Monocytes (%) (Auto) 6, Eosinophils (%) (Auto) 0, Basophils (%) (Auto) 0, Neutrophils # (Auto) 7.7, Lymphocytes # (Auto) 0.6L, Monocytes # (Auto) 0.5, Eosinophils # (Auto) 0.0, Basophils # (Auto) 0.0, Immature Granulocyte # (Auto) 0.1, Sodium Level 140, Potassium Level 4.0, Chloride Level 104, Carbon Dioxide Level 22, Anion Gap 14, Blood Urea Nitrogen 40H, Creatinine 1.15, Estimat Glomerular Filtration Rate > 60, BUN/Creatinine Ratio 35, Glucose Level 339H, Calcium Level 8.8, Phosphorus Level 3.5, Magnesium Level 2.0, B-Type Natriuretic Peptide 64.7 09/10/20 03:20: Blood Gas Puncture Site RIGHT RADIAL, Blood Gas Patient Temperature 36.6, Arterial Blood pH 7.43, Arterial Blood Partial Pressure CO2 39, Arterial Blood Partial Pressure O2 69L, Arterial Blood HCO3 26, Arterial Blood Total CO2 26.9, Arterial Blood Oxygen Saturation 94, Arterial Blood Base Excess 1.6, Janusz Test YES-POS, Blood Gas Ventilator Setting YES, Blood Gas Inspired Oxygen 70% 09/10/20 05:50: Blood Gas Puncture Site RIGHT RADIAL, Blood Gas Patient Temperature 36.3, Arterial Blood pH 7.42, Arterial Blood Partial Pressure CO2 42, Arterial Blood Partial Pressure O2 78L, Arterial Blood HCO3 27, Arterial Blood Total CO2 28.2, Arterial Blood Oxygen Saturation 96, Arterial Blood Base Excess 2.7H, Janusz Test YES-POS, Blood Gas Ventilator Setting YES, Blood Gas Inspired Oxygen 65% 09/10/20 11:33: Glucometer 344H Microbiology 09/05/20 Urine Culture - Final, Complete NO GROWTH 09/05/20 Gram Stain - Final, Complete 09/05/20 Sputum Culture - Final, Complete Usual upper respiratory yusra Staphylococcus aureus Yeast species Laboratory Tests 09/09/20 02:10 09/10/20 03:15 A/P: Assessment: Acute respiratory failure, multifactorial, probably due to respiratory suppression from CO2 narcosis and CT scan suggestive of pneumonia, ventilator dependent, managed by primary care team. Chest pain, probably noncardiac, cardiac enzymes and EKG did not show any acute abnormality, on admission, chest pain was out of proportion from any cardiac event. Continue to monitor Coronary artery disease, - patient had non-ST elevation myocardial infarction, underwent cardiac catheterization on April 11, 2019 revealing subtotal occlusion with diffuse ectasia in the distal right coronary artery, complex intervention requiring guide liner and multiple balloons, then deployment of Maday 423 mm stent with excellent results. Proximal RCA has diffuse ectasia with 50 percent stenosis, distal right PDA subtotally occluded, fairly small artery, will be treated medically. Severe stenosis at the distal circumflex artery with long lesion involving the obtuse marginal branch, proper circumflex and AV groove branch, all arteries are less than 2 mm in diameter. 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 Mild to moderate ectasia in LAD with mild to moderate disease diffusely, nonobstructive disease. Underwent cardiac catheterization on May 03, [address] Cartagena with 2.2532 mm Promus drug-eluting stent to the circumflex artery. Underwent repeat cardiac catheterization on May 21, 2019 revealing multivessel CAD with FFR confirmation of [id number] disease in RCA and flow-limiting disease in mid LAD. [id number] in proximal LAD. [id number] Synergy stent to mid LAD. - Cardiac catheterization done June 10, 2019 with 2.0x 12mm drug eluting [place] stent to first diagonal. - Cardiac cath performed by Dr. Núñez on July 18, 2020 revealed moderate to severe ostial ramus intermedius branch that is small to moderate in size. Distal disease, medical therapy is recommended, tortuous LAD with moderate disease in a small diagonal artery that could be responsible for the chest pain, diffuse ectasia in the right coronary artery with patent stent, small vessel disease distally, small vessel disease in the circumflex artery distally, normal left ventricular end-diastolic pressure. Hypertension Hyperlipidemia, continue pitavastatin, fenofibrate. Repatha as outpatient. DM2, insulin dependent RIAZ, has been noncompliant with BiPAP H/O right hip/back pain, Tobaccoism, recommend complete cessation. Extensive family history of heart disease and stroke. Plan: Continue current regimen Monitor lab closely Replace electrolytes as indicated Management of resp failure per medical/ICU services Possible transfer to [place] Clinical Quality Measures AMI/AHF: ASA po Prior to arrival: LIAM Vera MD FACP FAC CCDS Sep 10, 2020 18:43
--- NOTE | 2020-09-11 10:30 | Discharge Summary ---
Diagnosis/Chief Complaint Date of Admission Sep 05, 2020 at 05:05 Date of Discharge Sep 10, 2020 at 13:30 Discharge Date: Sep 10, 2020 Discharge Diagnosis VDRF Acute on chronic hypoxic hypercapneic respiratory failure Untreated RIAZ severe DM severe CAD Reason Hospital Visit CC: Chest pain HPI: This is a very complex 59yoWM clinic Pt of [facility] with severe RIAZ unable to tolerate CPAP or BiPAP, was in discussion about trach possibility, sent to [facility] to work on that with a past medical history of CAD, previous stents in the past last year, but cardiac cath clean, just small vessel disease two months ago, who presented to the ER with chest pain. Upon my assessment, he was very lethargic, suspicion for CO2 narcosis, at the bedside concurred. Moved him to the ICU and his ABG showed hypercapneic hypoxic acute on chronic respiratory failure, placed on BiPAP and consulted Dr. Pineda. He was unable to provide any details about any of his issues. Discharge Summary Discharge Physical Examination Allergies: Coded Allergies: No Known Drug Allergies (Unverified , 12/29/19) Vitals & I&Os Vital Signs Date Time Temp Pulse Resp B/P (MAP) Pulse Ox O2 Delivery O2 Flow Rate FiO2 09/10/20 12:54 93 Mechanical Ventilator 40 09/10/20 11:25 36.4 09/10/20 11:20 97 153/94 09/10/20 11:00 24 40.00 Respiratory: Clear to Auscultation Cardiovascular: Regular Rate Hospital Course Was the Problem List Reviewed?: Yes Hospital Course: Pt had a lengthy hospital course for nearly a week after he was admitted for chest pain but became somnolent. CO2 narcosis was diagnosed on ABG, failed BiPAP, and was ventilated. B/L pneumonia was diagnosed, Zosyn initiated, vent settings managed by Dr. Pineda in the ICU. Kidney function improved from his baseline at 1.6. Abdominal ultrasound showed fatty liver. Pt had no compromise in function but was going to be a difficult and slow process weening so he was send to [facility] and hopefully he will return back to inpatient rehab under my service. Labs (last 24 hrs) Laboratory Tests 09/05/20 03:50: White Blood Count 9.3, Red Blood Count 4.46, Hemoglobin 14.3, Hematocrit 44, Mean Corpuscular Volume 99, Mean Corpuscular Hemoglobin 32, Mean Corpuscular Hemoglobin Concent 32, Red Cell Distribution Width 13.1, Platelet Count 148, Mean Platelet Volume 11.0, Immature Granulocyte % (Auto) 0, Neutrophils (%) (Auto) 68, Lymphocytes (%) (Auto) 16, Monocytes (%) (Auto) 11, Eosinophils (%) (Auto) 4, Basophils (%) (Auto) 1, Neutrophils # (Auto) 6.3, Lymphocytes # (Auto) 1.5, Monocytes # (Auto) 1.0, Eosinophils # (Auto) 0.4H, Basophils # (Auto) 0.1, Immature Granulocyte # (Auto) 0.0, Prothrombin Time 14.0, INR Comment 1.0, Activated Partial Thromboplast Time 30, D-Dimer 0.36, Sodium Level 144, Potassium Level 4.1, Chloride Level 105, Carbon Dioxide Level 27, Anion Gap 12, Blood Urea Nitrogen 29H, Creatinine 1.41H, Estimat Glomerular Filtration Rate 52, BUN/Creatinine Ratio 21, Glucose Level 69L, Calcium Level 9.3, Corrected Calcium 9.3, Magnesium Level 1.8, Total Bilirubin 0.5, Aspartate Amino Transf (AST/SGOT) 41H, Alanine Aminotransferase (ALT/SGPT) 59H, Alkaline Phosphatase 72, Myoglobin 143.0H, Troponin I < 0.028, Total Protein 7.1, Albumin 4.0, Amylase Level 35, Lipase 26 09/05/20 05:05: Lab Scanned Report Referred Lab Report 09/05/20 10:08: Blood Gas Puncture Site RIGHT RADIAL, Blood Gas Patient Temperature 36.6, Arterial Blood pH 7.31*L, Arterial Blood Partial Pressure CO2 63H, Arterial Blood Partial Pressure O2 57L, Arterial Blood HCO3 31H, Arterial Blood Total CO2 32.6H, Arterial Blood Oxygen Saturation 87L, Arterial Blood Base Excess 4.6H, Janusz Test POSITIVE, Blood Gas Ventilator Setting NO, Blood Gas Inspired Oxygen 4 L 09/05/20 13:57: Blood Gas Puncture Site RT RADIAL, Blood Gas Patient Temperature 96.8, Arterial Blood pH 7.31*L, Arterial Blood Partial Pressure CO2 63H, Arterial Blood Partial Pressure O2 73L, Arterial Blood HCO3 31H, Arterial Blood Total CO2 33.2H, Arterial Blood Oxygen Saturation 95, Arterial Blood Base Excess 5.1H, Janusz Test YES-POS, Blood Gas Ventilator Setting NO, Blood Gas Inspired Oxygen 40% BIPAP 09/05/20 14:40: Phosphorus Level 4.0, Troponin I < 0.028, Triglycerides Level 141 09/05/20 16:21: Glucometer 153H 09/05/20 16:25: Blood Gas Puncture Site RT RAD, Blood Gas Patient Temperature 36.0, Arterial Blood pH 7.48H, Arterial Blood Partial Pressure CO2 38, Arterial Blood Partial Pressure O2 69L, Arterial Blood HCO3 29H, Arterial Blood Total CO2 29.7, Arterial Blood Oxygen Saturation 95, Arterial Blood Base Excess 4.8H, Janusz Test POS, Blood Gas Ventilator Setting YES, Blood Gas Inspired Oxygen 50% 09/05/20 17:47: Glucometer 146H 09/05/20 22:09: Urine Color YELLOW, Urine Clarity CLEAR, Urine pH 8.0, Urine Specific Hardesty 1.015L, Urine Protein 2+H, Urine Glucose (UA) NEGATIVE, Urine Ketones TRACEH, Urine Nitrite NEGATIVE, Urine Bilirubin NEGATIVE, Urine Urobilinogen 2.0, Urine Leukocyte Esterase 1+H, Urine RBC (Auto) 1+H, Urine RBC 10-25H, Urine WBC 10-25H , Urine Crystals NONE, Urine Bacteria MODERATEH, Urine Casts NONE, Urine Mucus NEGATIVE, Urine Culture Indicated YES 09/06/20 02:25: White Blood Count 8.0, Red Blood Count 4.18L, Hemoglobin 13.4, Hematocrit 42, Mean Corpuscular Volume 101H, Mean Corpuscular Hemoglobin 32, Mean Corpuscular Hemoglobin Concent 32, Red Cell Distribution Width 13.4, Platelet Count 140, Mean Platelet Volume 12.3H, Immature Granulocyte % (Auto) 0, Neutrophils (%) (Auto) 64, Lymphocytes (%) (Auto) 23, Monocytes (%) (Auto) 10, Eosinophils (%) (Auto) 3, Basophils (%) (Auto) 1, Neutrophils # (Auto) 5.1, Lymphocytes # (Auto) 1.8, Monocytes # (Auto) 0.8, Eosinophils # (Auto) 0.2, Basophils # (Auto) 0.0, Immature Granulocyte # (Auto) 0.0, Sodium Level 141, Potassium Level 4.0, Chloride Level 106, Carbon Dioxide Level 20L, Anion Gap 15H, Blood Urea Nitrogen 25H, Creatinine 1.28, Estimat Glomerular Filtration Rate 58, BUN/Creatinine Ratio 20, Glucose Level 147H, Calcium Level 8.5, Phosphorus Level 2.3, Magnesium Level 1.7, Troponin I 0.028, Procalcitonin 0.12H 09/06/20 02:33: Blood Gas Puncture Site R RAD, Blood Gas Patient Temperature 37.1, Arterial Blood pH 7.48H, Arterial Blood Partial Pressure CO2 38, Arterial Blood Partial Pressure O2 77L, Arterial Blood HCO3 27, Arterial Blood Total CO2 28.5, Arterial Blood Oxygen Saturation 96, Arterial Blood Base Excess 3.9H, Janusz Test YES-POS, Blood Gas Ventilator Setting YES, Blood Gas Inspired Oxygen 40% 09/06/20 14:09: Glucometer 272H 09/06/20 17:02: Glucometer 236H 09/06/20 18:06: Glucometer 258H 09/06/20 23:36: Glucometer 264H 09/07/20 03:40: White Blood Count 11.4H, Red Blood Count 4.50, Hemoglobin 14.2, Hematocrit 44, Mean Corpuscular Volume 98, Mean Corpuscular Hemoglobin 32, Mean Corpuscular Hemoglobin Concent 32, Red Cell Distribution Width 12.7, Platelet Count 128L, Mean Platelet Volume 11.7, Immature Granulocyte % (Auto) 1, Neutrophils (%) (Aut o) 88H, Lymphocytes (%) (Auto) 6L, Monocytes (%) (Auto) 5, Eosinophils (%) (Auto) 0, Basophils (%) (Auto) 0, Neutrophils # (Auto) 10.0H, Lymphocytes # (Auto) 0.7L, Monocytes # (Auto) 0.6, Eosinophils # (Auto) 0.0, Basophils # (Auto) 0.0, Immature Granulocyte # (Auto) 0.1, Sodium Level 139, Potassium Level 4.6, Chloride Level 105, Carbon Dioxide Level 19L, Anion Gap 15H, Blood Urea Ni trogen 26H, Creatinine 1.42H, Estimat Glomerular Filtration Rate 52, BUN/Creatinine Ratio 18, Glucose Level 341H, Calcium Level 8.6, Phosphorus Level 3.8, Magnesium Level 2.0, Triglycerides Level 188H 09/07/20 03:44: Blood Gas Puncture Site RIGHT RADIAL, Blood Gas Patient Temperature 37.2, Arterial Blood pH 7.38, Arterial Blood Partial Pressure CO2 40, Arterial Blood Partial Pressure O2 66L, Arterial Blood HCO3 23, Arterial Blood Total CO2 24.4, Arterial Blood Oxygen Saturation 91L, Arterial Blood Base Excess -1.1, Janusz Test YES-POS, Blood Gas Ventilator Setting YES, Blood Gas Inspired Oxygen 60% 09/07/20 11:35: Gastric Fluid Occult Blood POSITIVEH 09/07/20 12:09: Glucometer 343H 09/07/20 17:28: Glucometer 311H 09/07/20 23:34: Glucometer 379H 09/08/20 03:50: White Blood Count 10.1, Red Blood Count 4.40, Hemoglobin 14.1, Hematocrit 43, Mean Corpuscular Volume 98, Mean Corpuscular Hemoglobin 32, Mean Corpuscular Hemoglobin Concent 33, Red Cell Distribution Width 13.1, Platelet Count 135, Mean Platelet Volume 11.8, Immature Granulocyte % (Auto) 1, Neutrophils (%) (Auto) 80H, Lymphocytes (%) (Auto) 14, Monocytes (%) (Auto) 6, Eosinophils (%) (Auto) 0, Basophils (%) (Auto) 0, Neutrophils # (Auto) 8.1H, Lymphocytes # (A uto) 1.4, Monocytes # (Auto) 0.6, Eosinophils # (Auto) 0.0, Basophils # (Auto) 0.0, Immature Granulocyte # (Auto) 0.1, Sodium Level 141, Potassium Level 4.3, Chloride Level 105, Carbon Dioxide Level 19L, Anion Gap 17H, Blood Urea Nitrogen 32H, Creatinine 1.55H, Estimat Glomerular Filtration Rate 47, BUN/Creatinine Ratio 21, Glucose Level 360H, Calcium Level 8.7, Phosphorus Level 2.9, Magnesium Level 1.9 09/08/20 04:40: Blood Gas Puncture Site RIGHT RADIAL, Blood Gas Patient Temperature 37.8, Arterial Blood pH 7.38, Arterial Blood Partial Pressure CO2 36, Arterial Blood Partial Pressure O2 73L, Arterial Blood HCO3 21L, Arterial Blood Total CO2 22.0, Arterial Blood Oxygen Saturation 93L, Arterial Blood Base Excess -3.1L, Janusz Test YES-POS, Blood Gas Ventilator Setting YES, Blood Gas Inspired Oxygen 55% 09/08/20 11:15: Glucometer 328H 09/08/20 18:15: Glucometer 326H 09/09/20 00:25: Glucometer 304H 09/09/20 02:10: White Blood Count 8.4, Red Blood Count 4.42, Hemoglobin 14.1, Hematocrit 44, Mean Corpuscular Volume 101H, Mean Corpuscular Hemoglobin 32, Mean Corpuscular Hemoglobin Concent 32, Red Cell Distribution Width 13.4, Platelet Count 130, M sravani Platelet Volume 11.4, Immature Granulocyte % (Auto) 1, Neutrophils (%) (Auto) 85H, Lymphocytes (%) (Auto) 9L, Monocytes (%) (Auto) 5, Eosinophils (%) (Auto) 0, Basophils (%) (Auto) 0, Neutrophils # (Auto) 7.1, Lymphocytes # (Auto) 0.8L, Monocytes # (Auto) 0.4, Eosinophils # (Auto) 0.0, Basophils # (Auto) 0.0, Immature Granulocyte # (Auto) 0.1, Sodium Level 140, Potassium Level 4.2, Chloride Level 106, Carbon Dioxide Level 21, Anion Gap 13, Blood Urea Nitrogen 32H, Creatinine 1.25, Estimat Glomerular Filtration Rate 60, BUN/Creatinine Ratio 26, Glucose Level 318H, Calcium Level 8.9, Phosphorus Level 3.9, Magnesium Level 1.9 09/09/20 11:19: Glucometer 268H 09/09/20 17:31: Glucometer 303H 09/09/20 23:47: Glucometer 320H 09/10/20 03:15: White Blood Count 8.9, Red Blood Count 4.56, Hemoglobin 14.4, Hematocrit 46, Mean Corpuscular Volume 100H, Mean Corpuscular Hemoglobin 32, Mean Corpuscular Hemoglobin Concent 32, Red Cell Distribution Width 13.5, Platelet Count 146, Mean Platelet Volume 12.0, Immature Granulocyte % (Auto) 1, Neutrophils (%) (Auto) 87H, Lymphocytes (%) (Auto) 6L, Monocytes (%) (Auto) 6, Eosinophils (%) (Auto) 0, Basophils (%) (Auto) 0, Neutrophils # (Auto) 7.7, Lymphocytes # (Auto) 0.6L, Monocytes # (Auto) 0.5, Eosinophils # (Auto) 0.0, Basophils # (Auto) 0.0, Immature Granulocyte # (Auto) 0.1, Sodium Level 140, Potassium Level 4.0, Chloride Level 104, Carbon Dioxide Level 22, Anion Gap 14, Blood Urea Nitrogen 40H, Creatinine 1.15, Estimat Glomerular Filtration Rate > 60, BUN/Creatinine Ratio 35, Glucose Level 339H, Calcium Level 8.8, Phosphorus Level 3.5, Magnesium Level 2.0, B-Type Natriuretic Peptide 64.7 09/10/20 03:20: Blood Gas Puncture Site RIGHT RADIAL, Blood Gas Patient Temperature 36.6, Arterial Blood pH 7.43, Arterial Blood Partial Pressure CO2 39, Arterial Blood Partial Pressure O2 69L, Arterial Blood HCO3 26, Arterial Blood Total CO2 26.9, Arterial Blood Oxygen Saturation 94, Arterial Blood Base Excess 1.6, Janusz Test YES-POS, Blood Gas Ventilator Setting YES, Blood Gas Inspired Oxygen 70% 09/10/20 05:50: Blood Gas Puncture Site RIGHT RADIAL, Blood Gas Patient Temperature 36.3, Arterial Blood pH 7.42, Arterial Blood Partial Pressure CO2 42, Arterial Blood Partial Pressure O2 78L, Arterial Blood HCO3 27, Arterial Blood Total CO2 28.2, Arterial Blood Oxygen Saturation 96, Arterial Blood Base Excess 2.7H, Janusz Test YES-POS, Blood Gas Ventilator Setting YES, Blood Gas Inspired Oxygen 65% 09/10/20 11:33: Glucometer 344H Microbiology 09/05/20 Urine Culture - Final, Complete NO GROWTH 09/05/20 Gram Stain - Final, Complete 09/05/20 Sputum Culture - Final, Complete Usual upper respiratory yusra Staphylococcus aureus Yeast species Pending Labs Microbiology Date/Time Source Procedure Growth Status 09/05/20 22:09 Urine Clean Catch Urine Culture - Final NO GROWTH Complete 09/05/20 15:02 Sputum Endotracheal Gram Stain - Final Complete 09/05/20 15:02 Sputum Culture - Final Usual upper respiratory yusra Staphylococcus aureus Yeast species Complete Laboratory Tests 09/05/20 03:50: White Blood Count 9.3, Red Blood Count 4.46, Hemoglobin 14.3, Hematocrit 44, Mean Corpuscular Volume 99, Mean Corpuscular Hemoglobin 32, Mean Corpuscular Hemoglobin Concent 32, Red Cell Distribution Width 13.1, Platelet Count 148, Mean Platelet Volume 11.0, Immature Granulocyte % (Auto) 0, Neutrophils (%) (Auto) 68, Lymphocytes (%) (Auto) 16, Monocytes (%) (Auto) 11, Eosinophils (%) (Auto) 4, Basophils (%) (Auto) 1, Neutrophils # (Auto) 6.3, Lymphocytes # (Auto) 1.5, Monocytes # (Auto) 1.0, Eosinophils # (Auto) 0.4, Basophils # (Auto) 0.1, Immature Granulocyte # (Auto) 0.0, Prothrombin Time 14.0, INR Comment 1.0, Activated Partial Thromboplast Time 30, D-Dimer 0.36, Sodium Level 144, Potassium Level 4.1, Chloride Level 105, Carbon Dioxide Level 27, Anion Gap 12, Blood Urea Nitrogen 29, Creatinine 1.41, Estimat Glomerular Filtration Rate 52, BUN/Creatinine Ratio 21, Glucose Level 69, Calcium Level 9.3, Corrected Calcium 9.3, Magnesium Level 1.8, Total Bilirubin 0.5, Aspartate Amino Transf (AST/SGOT) 41, Alanine Aminotransferase (ALT/SGPT) 59, Alkaline Phosphatase 72, Myoglobin 143.0, Troponin I < 0.028, Total Protein 7.1, Albumin 4.0, Amylase Level 35, Lipase 26 09/05/20 05:05: Lab Scanned Report Referred Lab Report 09/05/20 10:08: Blood Gas Puncture Site RIGHT RADIAL, Blood Gas Patient Temperature 36.6, Arterial Blood pH 7.31, Arterial Blood Partial Pressure CO2 63, Arterial Blood Partial Pressure O2 57, Arterial Blood HCO3 31, Arterial Blood Total CO2 32.6, Arterial Blood Oxygen Saturation 87, Arterial Blood Base Excess 4.6, Janusz Test POSITIVE, Blood Gas Ventilator Setting NO, Blood Gas Inspired Oxygen 4 L 09/05/20 13:57: Blood Gas Puncture Site RT RADIAL, Blood Gas Patient Temperature 96.8, Arterial Blood pH 7.31, Arterial Blood Partial Pressure CO2 63, Arterial Blood Partial Pressure O2 73, Arterial Blood HCO3 31, Arterial Blood Total CO2 33.2, Arterial Blood Oxygen Saturation 95, Arterial Blood Base Excess 5.1, Janusz Test YES-POS, Blood Gas Ventilator Setting NO, Blood Gas Inspired Oxygen 40% BIPAP 09/05/20 14:40: Phosphorus Level 4.0, Troponin I < 0.028, Triglycerides Level 141 09/05/20 16:21: Glucometer 153 09/05/20 16:25: Blood Gas Puncture Site RT RAD, Blood Gas Patient Temperature 36.0, Arterial Blood pH 7.48, Arterial Blood Partial Pressure CO2 38, Arterial Blood Partial Pr essure O2 69, Arterial Blood HCO3 29, Arterial Blood Total CO2 29.7, Arterial Blood Oxygen Saturation 95, Arterial Blood Base Excess 4.8, Janusz Test POS, Blood Gas Ventilator Setting YES, Blood Gas Inspired Oxygen 50% 09/05/20 17:47: Glucometer 146 09/05/20 22:09: Urine Color YELLOW, Urine Clarity CLEAR, Urine pH 8.0, Urine Specific Hardesty 1.015, Urine Protein 2+, Urine Glucose (UA) NEGATIVE, Urine Ketones TRACE, Urine Nitrite NEGATIVE, Urine Bilirubin NEGATIVE, Urine Urobilinogen 2.0, Urine Leukocyte Esterase 1+, Urine RBC (Auto) 1+, Urine RBC 10-25, Urine WBC 10-25, Urine Crystals NONE, Urine Bacteria MODERATE, Urine Casts NONE, Urine Mucus NEGATIVE, Urine Culture Indicated YES 09/06/20 02:25: White Blood Count 8.0, Red Blood Count 4.18, Hemoglobin 13.4, Hematocrit 42, Mean Corpuscular Volume 101, Mean Corpuscular Hemoglobin 32, Mean Corpuscular Hemoglobin Concent 32, Red Cell Distribution Width 13.4, Platelet Count 140, Mean Platelet Volume 12.3, Immature Granulocyte % (Auto) 0, Neutrophils (%) (Auto) 64, Lymphocytes (%) (Auto) 23, Monocytes (%) (Auto) 10, Eosinophils (%) (Auto) 3, Basophils (%) (Auto) 1, Neutrophils # (Auto) 5.1, Lymphocytes # (Auto) 1.8, Monocytes # (Auto) 0.8, Eosinophils # (Auto) 0.2, Basophils # (Auto) 0.0, Immature Granulocyte # (Auto) 0.0, Sodium Level 141, Potassium Level 4.0, Chloride Level 106, Carbon Dioxide Level 20, Anion Gap 15, Blood Urea Nitrogen 25, Creatinine 1.28, Estimat Glomerular Filtration Rate 58, BUN/Creatinine Ratio 20, Glucose Level 147, Calcium Level 8.5, Phosphorus Level 2.3, Magnesium Level 1.7, Troponin I 0.028, Procalcitonin 0.12 09/06/20 02:33: Blood Gas Puncture Site R RAD, Blood Gas Patient Temperature 37.1, Arterial Blood pH 7.48, Arterial Blood Partial Pressure CO2 38, Arterial Blood Partial Pressure O2 77, Arterial Blood HCO3 27, Arterial Blood Total CO2 28.5, Arterial Blood Oxygen Saturation 96, Arterial Blood Base Excess 3.9, Janusz Test YES-POS, Blood Gas Ventilator Setting YES, Blood Gas Inspired Oxygen 40% 09/06/20 14:09: Glucometer 272 09/06/20 17:02: Glucometer 236 09/06/20 18:06: Glucometer 258 09/06/20 23:36: Glucometer 264 09/07/20 03:40: White Blood Count 11.4, Red Blood Count 4.50, Hemoglobin 14.2, Hematocrit 44, Mean Corpuscular Volume 98, Mean Corpuscular Hemoglobin 32, Mean Corpuscular Hemoglobin Concent 32, Red Cell Distribution Width 12.7, Platelet Count 128, M sravani Platelet Volume 11.7, Immature Granulocyte % (Auto) 1, Neutrophils (%) (Auto) 88, Lymphocytes (%) (Auto) 6, Monocytes (%) (Auto) 5, Eosinophils (%) (Auto) 0, Basophils (%) (Auto) 0, Neutrophils # (Auto) 10.0, Lymphocytes # (Auto) 0.7, Monocytes # (Auto) 0.6, Eosinophils # (Auto) 0.0, Basophils # (Auto) 0.0, Immature Granulocyte # (Auto) 0.1, Sodium Level 139, Potassium Level 4.6, Chloride Level 105, Carbon Dioxide Level 19, Anion Gap 15, Blood Urea Nitrogen 26, Creatinine 1.42, Estimat Glomerular Filtration Rate 52, BUN/Creatinine Ratio 18, Glucose Level 341, Calcium Level 8.6, Phosphorus Level 3.8, Magnesium Level 2.0, Triglycerides Level 188 09/07/20 03:44: Blood Gas Puncture Site RIGHT RADIAL, Blood Gas Patient Temperature 37.2, A rterial Blood pH 7.38, Arterial Blood Partial Pressure CO2 40, Arterial Blood Partial Pressure O2 66, Arterial Blood HCO3 23, Arterial Blood Total CO2 24.4, Arterial Blood Oxygen Saturation 91, Arterial Blood Base Excess -1.1, Janusz Test YES-POS, Blood Gas Ventilator Setting YES, Blood Gas Inspired Oxygen 60% 09/07/20 11:35: Gastric Fluid Occult Blood POSITIVE 09/07/20 12:09: Glucometer 343 09/07/20 17:28: Glucometer 311 09/07/20 23:34: Glucometer 379 09/08/20 03:50: White Blood Count 10.1, Red Blood Count 4.40, Hemoglobin 14.1, Hematocrit 43, Mean Corpuscular Volume 98, Mean Corpuscular Hemoglobin 32, Mean Corpuscular Hemoglobin Concent 33, Red Cell Distribution Width 13.1, Platelet Count 135, Mean Platelet Volume 11.8, Immature Granulocyte % (Auto) 1, Neutrophils (%) (Auto) 80, Lymphocytes (%) (Auto) 14, Monocytes (%) (Auto) 6, Eosinophils (%) (Auto) 0, Basophils (%) (Auto) 0, Neutrophils # (Auto) 8.1, Lymphocytes # (Auto) 1.4, Monocytes # (Auto) 0.6, Eosinophils # (Auto) 0.0, Basophils # (Auto) 0.0, Immature Granulocyte # (Auto) 0.1, Sodium Level 141, Potassium Level 4.3, Chloride Level 105, Carbon Dioxide Level 19, Anion Gap 17, Blood Urea Nitrogen 32, Creatinine 1.55, Estimat Glomerular Filtration Rate 47, BUN/Creatinine Ratio 21, Glucose Level 360, Calcium Level 8.7, Phosphorus Level 2.9, Magnesium Level 1.9 09/08/20 04:40: Blood Gas Puncture Site RIGHT RADIAL, Blood Gas Patient Temperature 37.8, Arterial Blood pH 7.38, Arterial Blood Partial Pressure CO2 36, Arterial Blood Partial Pressure O2 73, Arterial Blood HCO3 21, Arterial Blood Total CO2 22.0, Arterial Blood Oxygen Saturation 93, Arterial Blood Base Excess -3.1, Janusz Test YES-POS, Blood Gas Ventilator Setting YES, Blood Gas Inspired Oxygen 55% 09/08/20 11:15: Glucometer 328 09/08/20 18:15: Glucometer 326 09/09/20 00:25: Glucometer 304 09/09/20 02:10: White Blood Count 8.4, Red Blood Count 4.42, Hemoglobin 14.1, Hematocrit 44, Mean Corpuscular Volume 101, Mean Corpuscular Hemoglobin 32, Mean Corpuscular Hemoglobin Concent 32, Red Cell Distribution Width 13.4, Platelet Count 130, Mean Platelet Volume 11.4, Immature Granulocyte % (Auto) 1, Neutrophils (%) (Auto) 85, Lymphocytes (%) (Auto) 9, Monocytes (%) (Auto) 5, Eosinophils (%) (Auto) 0, Basophils (%) (Auto) 0, Neutrophils # (Auto) 7.1, Lymphocytes # (Auto) 0.8, Monocytes # (Auto) 0.4, Eosinophils # (Auto) 0.0, Basophils # (Auto) 0.0, Immature Granulocyte # (Auto) 0.1, Sodium Level 140, Potassium Level 4.2, Chloride Level 106, Carbon Dioxide Level 21, Anion Gap 13, Blood Urea Nitrogen 32, Creatinine 1.25, Estimat Glomerular Filtration Rate 60, BUN/Creatinine Ratio 26, Glucose Level 318, Calcium Level 8.9, Phosphorus Level 3.9, Magnesium Level 1.9 09/09/20 11:19: Glucometer 268 09/09/20 17:31: Glucometer 303 09/09/20 23:47: Glucometer 320 09/10/20 03:15: White Blood Count 8.9, Red Blood Count 4.56, Hemoglobin 14.4, Hematocrit 46, Mean Corpuscular Volume 100, Mean Corpuscular Hemoglobin 32, Mean Corpuscular Hemoglobin Concent 32, Red Cell Distribution Width 13.5, Platelet Count 146, Mean Platelet Volume 12.0, Immature Granulocyte % (Auto) 1, Neutrophils (%) (Auto) 87, Lymphocytes (%) (Auto) 6, Monocytes (%) (Auto) 6, Eosinophils (%) (Auto) 0, Basophils (%) (Auto) 0, Neutrophils # (Auto) 7.7, Lymphocytes # (Auto) 0.6, Monocytes # (Auto) 0.5, Eosinophils # (Auto) 0.0, Basophils # (Auto) 0.0, Immature Granulocyte # (Auto) 0.1, Sodium Level 140, Potassium Level 4.0, Chloride Level 104, Carbon Dioxide Level 22, Anion Gap 14, Blood Urea Nitrogen 40, Creatinine 1.15, Estimat Glomerular Filtration Rate > 60, BUN/Creatinine Ratio 35, Glucose Level 339, Calcium Level 8.8, Phosphorus Level 3.5, Magnesium Level 2.0, B-Type Natriuretic Peptide 64.7 09/10/20 03:20: Blood Gas Puncture Site RIGHT RADIAL, Blood Gas Patient Temperature 36.6, Arterial Blood pH 7.43, Arterial Blood Partial Pressure CO2 39, Arterial Blood Partial Pressure O2 69, Arterial Blood HCO3 26, Arterial Blood Total CO2 26.9, Arterial Blood Oxygen Saturation 94, Arterial Blood Base Excess 1.6, Janusz Test YES-POS, Blood Gas Ventilator Setting YES, Blood Gas Inspired Oxygen 70% 09/10/20 05:50: Blood Gas Puncture Site RIGHT RADIAL, Blood Gas Patient Temperature 36.3, Arterial Blood pH 7.42, Arterial Blood Partial Pressure CO2 42, Arterial Blood Partial Pressure O2 78, Arterial Blood HCO3 27, Arterial Blood Total CO2 28.2, Arterial Blood Oxygen Saturation 96, Arterial Blood Base Excess 2.7, Janusz Test YES-POS, Blood Gas Ventilator Setting YES, Blood Gas Inspired Oxygen 65% 09/10/20 11:33: Glucometer 344 Discharge Home Medications: Active Scripts Active No Active Prescriptions or Reported Medications Instructions to patient/family Please see electronic discharge instructions given to patient. Diagnosis/Problems Diagnosis/Problems (1) Acute on chronic respiratory failure with hypoxia and hypercapnia Clinical Quality Measures AMI/AHF: ASA po Prior to arrival: IRINEO Simmons DO Sep 11, 2020 10:30
== END 2020-09-10 13:30 | DRG 207 ==
LOC: EDUNIT# 03:37 → ER 03:38 → CSD 05:05 → ICU 10:30
PROVIDERS: ADMIT Internal Medicine; ATTEND Internal Medicine
PROC: 5A09357 Assistance with Respiratory Ventilation, Less than 24 Consecutive Hours, Continuous Positive Airway Pressure (ICD-10-PCS; 2020-09-05)
PROC: 5A1955Z Respiratory Ventilation, Greater than 96 Consecutive Hours (ICD-10-PCS; principal; 2020-09-06)
PROC: 0BH17EZ Insertion of Endotracheal Airway into Trachea, Via Natural or Artificial Opening (ICD-10-PCS; 2020-09-06)
DX: J69.0 Pneumonitis due to inhalation of food and vomit (principal); J96.22 Acute and chronic respiratory failure with hypercapnia; I50.31 Acute diastolic (congestive) heart failure; J96.21 Acute and chronic respiratory failure with hypoxia; Z68.41 Body mass index [BMI] 40.0-44.9, adult; I13.0 Hypertensive heart and chronic kidney disease with heart failure and stage 1 through stage 4 chronic kidney disease, or unspecified chronic kidney disease; G47.33 Obstructive sleep apnea (adult) (pediatric); N18.9 Chronic kidney disease, unspecified; E78.00 Pure hypercholesterolemia, unspecified; G89.29 Other chronic pain; N40.0 Benign prostatic hyperplasia without lower urinary tract symptoms; M19.90 Unspecified osteoarthritis, unspecified site; M10.9 Gout, unspecified; E11.22 Type 2 diabetes mellitus with diabetic chronic kidney disease; Z79.82 Long term (current) use of aspirin; Z79.4 Long term (current) use of insulin; Z79.899 Other long term (current) drug therapy; Z95.5 Presence of coronary angioplasty implant and graft; M25.559 Pain in unspecified hip; R41.82 Altered mental status, unspecified; I25.2 Old myocardial infarction; Z90.49 Acquired absence of other specified parts of digestive tract; G43.909 Migraine, unspecified, not intractable, without status migrainosus; E11.40 Type 2 diabetes mellitus with diabetic neuropathy, unspecified; K21.9 Gastro-esophageal reflux disease without esophagitis; M79.7 Fibromyalgia; M54.9 Dorsalgia, unspecified; F41.9 Anxiety disorder, unspecified; F32.9 Major depressive disorder, single episode, unspecified; E66.01 Morbid (severe) obesity due to excess calories; F17.200 Nicotine dependence, unspecified, uncomplicated; D72.829 Elevated white blood cell count, unspecified; J44.9 Chronic obstructive pulmonary disease, unspecified; T38.0X5A Adverse effect of glucocorticoids and synthetic analogues, initial encounter; Z82.49 Family history of ischemic heart disease and other diseases of the circulatory system; Z82.3 Family history of stroke; Z91.19 Patient's noncompliance with other medical treatment and regimen; R07.89 Other chest pain; I25.119 Atherosclerotic heart disease of native coronary artery with unspecified angina pectoris
CPT/HCPCS: 36410; 36415; 71045; 71275; 76705; 76937; 80048; 80053; 81000; 82150; 82271; 82805; 82962; 83690; 83735; 83874; 83880; 84100; 84145; 84478; 84484; 85025; 85379; 85610; 85730; 87070; 87088; 87205; 93005; 93041; 93306; 93970; 94002; 94003; 94640; 94660; 94799; 96374; 96375; 96376

== ENCOUNTER 2020-09-10 06:21 | Outpatient (RCR) | payer MEDICARE, OTHER ==
[~2020-09-10] VITALS: Ht 180.3 cm; Wt 136.8 kg
[~2020-09-10 06:21] MED LIST changes: -DICL100G31 TOP; +MULT200T12 PO; +NF-LOVAZAC PO; -OMEG1CAP PO; -OMEP40CA27 PO; +OMEP40CA6 PO
[2020-10-01] MEDS ORDERED: INSU100V6 SQ (10:47)
[2020-10-01] MEDS ORDERED: DICL100G18 TOP (10:47)
[2020-10-01] MEDS ORDERED: CRV25T PO (10:47)
[2020-10-01] MEDS ORDERED: ENOX40DI8 SQ (10:47)
[2020-10-01] MEDS ORDERED: INSU100V39 SQ (10:47)
[2020-10-01] MEDS ORDERED: SIME80TA16 PO (10:47)
[2020-10-01] MEDS ORDERED: PHEN30SP8 MM (10:47)
[2020-10-01] MEDS ORDERED: PANT40TA52 PO (10:47)
[2020-10-01] MEDS ORDERED: HYDR-3817 PO (10:47)
[2020-10-01] MEDS ORDERED: ASPI-999 PO (10:47)
[2020-10-01] MEDS ORDERED: IPRA3AMP31 IH (10:47)
[2020-10-01] MEDS ORDERED: ACET325C7 PO (10:47)
[2020-10-01] MEDS ORDERED: TMSL.4C PO (10:47)
[2020-10-08] MEDS ORDERED: DOCU250C11 PO (16:07)
[2020-10-08] MEDS ORDERED: PRAS10TA10 PO (16:07)
[2020-10-08] MEDS ORDERED: CARV3.122 PO (16:07)
[2020-10-08] MEDS ORDERED: EVOL140P3 SQ (16:07)
[2020-10-08] MEDS ORDERED: FENO134C PO (16:07)
[2020-10-08] MEDS ORDERED: BACL10TA PO (16:07)
[2020-10-08] MEDS ORDERED: GABA300C PO ×2 (16:07)
[2020-10-08] MEDS ORDERED: ASCO100024 PO (16:07)
[2020-10-08] MEDS ORDERED: CHOL500050 PO (16:07)
[2020-10-08] MEDS ORDERED: INSU500I SQ (16:07)
[2020-10-08] MEDS ORDERED: LISI10TA25 PO (16:07)
[2020-10-08] MEDS ORDERED: ALLO300T2 PO (16:07)
[2020-10-08] MEDS ORDERED: NITR0.4T39 SL (16:07)
[2020-10-08] MEDS ORDERED: ASPI-1238 PO (16:07)
[2020-10-08] MEDS ORDERED: PITA4TAB2 PO (16:07)
[2020-10-08] MEDS ORDERED: ISOS30TA82 PO (16:07)
[2020-10-08] MEDS ORDERED: MONT10TA32 PO (16:07)
[2020-10-08] MEDS ORDERED: NF-LOVAZAC PO (16:07)
[2020-10-08] MEDS ORDERED: UBID200C16 PO (16:07)
[2020-10-08] MEDS ORDERED: FURO40TA4 PO (16:07)
[2020-10-08] MEDS ORDERED: FEXO-46 PO (16:07)
[2020-10-08] MEDS ORDERED: MAGN400T39 PO (16:07)
[2020-10-08] MEDS ORDERED: ZINC50TA58 PO (16:07)
[2020-10-08] MEDS ORDERED: HYDR-3584 PO (16:07)
[2020-10-08] MEDS ORDERED: MULT200T12 PO (16:07)
[2020-10-08] MEDS ORDERED: UBID100C44 PO (16:07)
[2020-10-09] MEDS ORDERED: CARV12.53 PO (08:59)
[2020-10-09] MEDS ORDERED: INSU100V5 SQ (08:59)
[2020-10-09] MEDS ORDERED: INSU500I SQ (08:59)
[2020-10-09] MEDS ORDERED: TMSL.4C PO (08:59)
[2020-10-09] MEDS ORDERED: HYDR-3817 PO (08:59)
== END 2020-12-09 | disposition home or self-care (01) ==
LOC: PREOP 06:21
PROVIDERS: ATTEND Surgery
DX: Z01.818 Encounter for other preprocedural examination (principal)

== ENCOUNTER 2020-10-01 09:14 | Inpatient (IN) | payer MEDICARE, OTHER ==
[~2020-10-01] VITALS: Ht 180 cm; Wt 119.5 kg
[~2020-10-01 09:14] MED LIST changes: +DICL100G31 TOP; -NF-LOVAZAC PO; +OMEG1CAP PO; +OMEP40CA27 PO; -OMEP40CA6 PO
[2020-10-01] MEDS ORDERED: LACTULOSE SYRUP 10GM/15ML (ENULOSE) 30ML UDC PO PRN (09:30)
[2020-10-01] MEDS ORDERED: guaiFENesin/CODEINE (ROBITUSSIN AC) 10ML UDC PO PRN (09:30)
[2020-10-01] MEDS ORDERED: DOCUSATE SODIUM 100 MG (COLACE) CAP PO PRN (09:30)
[2020-10-01] MEDS ORDERED: CALCIUM CARBONATE 500 MG (TUMS) TAB.CHEW PO PRN (09:30)
[2020-10-01] MEDS ORDERED: ONDANSETRON 4 MG (ZOFRAN) ORAL DISSOLVE TAB PO PRN (09:30)
[2020-10-01] MEDS ORDERED: LOPERAMIDE 2 MG (IMODIUM) TABLET PO PRN (09:30)
[2020-10-01] MEDS ORDERED: diphenhydrAMINE 25 MG TAB (BENADRYL) PO PRN (09:30)
[2020-10-01] MEDS ORDERED: ALPRAZolam 0.25 MG (XANAX) TAB PO PRN (09:30)
[2020-10-01] MEDS ORDERED: FLEET ENEMA ADULT 1 EA BTL PR PRN (09:30)
[2020-10-01] MEDS ORDERED: BISACODYL 10 MG SUPP (DULCOLAX) PR PRN (09:30)
[2020-10-01] MEDS ORDERED: CRV25T PO (10:47)
[2020-10-01] MEDS ORDERED: ACET325C7 PO (10:47)
[2020-10-01] MEDS ORDERED: TMSL.4C PO (10:47)
[2020-10-01] MEDS ORDERED: INSU100V39 SQ (10:47)
[2020-10-01] MEDS ORDERED: IPRA3AMP31 IH (10:47)
[2020-10-01] MEDS ORDERED: ASPI-999 PO (10:47)
[2020-10-01] MEDS ORDERED: DICL100G18 TOP (10:47)
[2020-10-01] MEDS ORDERED: SIME80TA16 PO (10:47)
[2020-10-01] MEDS ORDERED: PHEN30SP8 MM (10:47)
[2020-10-01] MEDS ORDERED: HYDR-3817 PO (10:47)
[2020-10-01] MEDS ORDERED: ENOX40DI8 SQ (10:47)
[2020-10-01] MEDS ORDERED: PANT40TA52 PO (10:47)
[2020-10-01] MEDS ORDERED: INSU100V6 SQ (10:47)
[2020-10-01 11:30] VITALS: BP 139/78
[2020-10-01] MEDS ORDERED: NON-FORMULARY MEDICATION 1 EA EA (Acetaminophen (Tylenol) 650 MG) PO PRN (12:30)
[2020-10-01] MEDS ORDERED: SIMETHICONE 80 MG (MYLICON) CHEW PO PRN (12:30)
[2020-10-01] MEDS ORDERED: PHENOL MM PRN (12:30)
[2020-10-01] MEDS ORDERED: GLYCERIN MM PRN (12:30)
[2020-10-01] MEDS ORDERED: RT-ALBUTEROL/IPRATROPIUM 3 ML (DUONEB) VIAL IH PRN (12:30)
[2020-10-01] MEDS ORDERED: CHLORASEPTIC SPRAY 177 ML LIQUID MC PRN (12:45)
--- NOTE | 2020-10-01 13:09 | Occupational Therapy Eval ---
OT Evaluation-General/PLF Medical Diagnosis Admission Date October 01, 2020 at 11:20 Medical Diagnosis: Debility Onset Date: Sep 04, 2020 Therapy Diagnosis Therapy Diagnosis: debility, decreased ADL Status Height/Weight Height (Feet): 5 Height (Inches): 11.00 Weight (Pounds): 260 Weight (Ounces): 8.0 Referral Physician: Hilda Referral Reason: Evaluation/Treatment Medical History Pertinent Medical History: Arthritis, CAD, COPD, DM, [place], Neuropathy, Renal In sufficiency Additional Medical History acute respiratory failure, anxiety, BPH, CAD s/p stenting 2019, CKD, depression, CHF, GERD, fibromyalgia, GOUT, HTN, hypomagnesemia, obesity, RIAZ, costochrondritis, [place], renal failure Current History 09/04/20 found to be in hypercapnic respirator failure, BiPAP placed without improvements, subsequently ventilated and transferred to OSH for ventilation weaning. Pt admitted to [facility] 10/01/20 for continued medication management and skilled therapy. Social History Home: Single Level Current Living Status: Spouse Entry Into Home: Stairs With Railing (4 steps in back), Stairs Without Railing (2 steps in front) ADL-Prior Level of Function SCALE: Activities may be completed with or without assistive devices. 1-Ivilsthdbo-uagbisj completes the activity by him/herself with no assistance from a helper. 5-Set-up or Clean-up Assistance-helper sets up or cleans up; patient completes activity. [place] assists only prior to or following the activity. 4-Supervision or Touching Assistance-helper provides verbal cues and/or touching/steadying and/or contact guard assistance as patient completes activity. Assistance may be provided throughout the activity or intermittently. 3-Partial/Moderate Assistance-helper does LESS THAN HALF the effort. [place] lifts, holds or supports trunk or limbs, but provides less than half the effort. 2-Substantial/Maximal Assistance-helper does MORE THAN HALF the effort. [place] lifts or holds trunk or limbs and provides more than half the effort. 2-Uphysuyrb-hqdrtl does ALL the effort. Patient does none of the effort to complete the activity. Or, the assistance of 2 or more helpers is required for the patient to complete the activity. If activity was not attempted, code reason: 7-Patient Refused. 9-Not Applicable-not attempted and the patient did not perform the activity before the current illness, exacerbation or injury. 10-Not Attempted due to Environmental Limitations-(lack of equipment, weather restraints, etc.). 88-Not Attempted due to Medical Conditions or Safety Concerns. ADL PLOF Comments Pt reports IND with ADLs and functional mobility, no AD. Pt independent with lower body dressing using AE (has doctor of medicine, dressing stick, sock aide, and long handled shoe horn). He has a tub/shower and a walk in shower with a bench. He prefers to use the shower. Self Care: Independent Functional Cognition: Independent DME/Equipment: Bath Bench, Shower, Tub/Shower Drive Self: Yes OT Current Status Subjective Pt agreeable to OT evaluation and OT/PT cotreat. Mental Status/Objective Patient Orientation: Person, Place, Time, Situation Current Glasses/Contacts: Yes Hearing Aids: No Dentures/Partials: No Hand Dominance: Right Upper Extremity ROM Decreased, BUE shoulder flexion to approx 100 degrees, WFL at elbow and wrist. Upper Extremity Coordination WFL Upper Extremity Sensation Pt reports some tingling/numbness in R ulnar nerve distribution of hand. Upper Extremity Strength grossly 3+/5 BUEs ADL-Treatment Eating (QC): 6 (Per pt report, able to use utensils to cut food and open containers.) Oral Hygiene (QC): 7 Shower/Bathe Self (QC): 7 Upper Body Dressing (QC): 7 Lower Body Dressing (QC): 7 On/Off Footwear (QC): 7 Toileting Hygiene (QC): 7 Other Treatments OT evaluation complete. OT/PT cotreat due to skill of 2 clinicians required which a vocational rehabilitation consultant could not perform in order to coordinate UE/LEs, decrease fall risk and due to pt's limitations in strength, activity tolerance, and mobility/transfers. OT focused on ADLs, UE placement, cues for sequencing and safety. PT focused on LE placement, gross overall movement, and transfers/mob ility. Pt completed functional transfer across uneven surface, in/out of car simulation, around ARU common area, 1 step and back to recliner. Pt took rest breaks as needed. Pt educated on ARU expectations and OT POC, he verbalized understanding. Post tx, pt seated in recliner, call light in reach and all needs met. Please refer to PT evaluation for QC scores associated with transfers/mobility. Education OT Patient Education: Correct positioning, Modified ADL techniques, Progress toward Goal/Update tx plan, Purpose of tx/functional activities Teaching Recipient: Patient Teaching Methods: Discussion Response to Teaching: Verbalize Understanding OT Short Term Goals Short Term Goals Time Frame: October 15, 2020 Oral hygiene: 5 Shower/bathe self: 5 Upper body dressin Lower body dressin Putting on/taking off footwear: 5 OT [employer] Goals [employer] Goals Time Frame: Oct 26, 2020 Eating (QC): 6 Oral Hygiene (QC): 6 Toileting Hygiene (QC): 6 Shower/Bathe Self (QC): 6 Upper Body Dressing (QC): 6 Lower Body Dressing (QC): 6 On/Off Footwear (QC): 6 Additional Goals: 1-Demonstrate ADL Tasks, 2-Verbalize Understanding, 3- ImproveStrength/Neri 1=Demonstrate adherence to instructed precautions during ADL tasks. 2=Patient will verbalize/demonstrate understanding of assistive devices/modifications for ADL. 3=Patient will improve strength/tolerance for activity to enable patient to perform ADL's. OT Education/Plan Problem List/Assessment Assessment: Decreased Activ Tolerance, Decreased UE Strength, Impaired Funct Balance, Impaired I ADL's, Impaired Self-Care Skills, Restricted Funct UE ROM Discharge Recommendations Plan/Recommendations: Continue POC Treatment Plan/Plan of Care Patient would benefit from OT for education, treatment and training to promote independence in ADL's, mobility, safety and/or upper extremity function for ADL's. Plan of Care: ADL Retraining, Functional Mobility, Group Exercise/Act as Ind, UE Funct Exercise/Act Treatment Duration: Oct 26, 2020 Frequency: At least 5 of 7 days/Wk (IRF) Estimated Hrs Per Day: 1 hour per day Agreement: Yes Rehab Potential: Fair Time/GCodes Start Time: 11:35 Stop Time: 12:10 Total Time Billed (hr/min): 35 Billed Treatment Time 2059-5793 OT evaluation x10', [id number] OT/PT cotreat x25' 1, EVM (10'), FA (25', only charge 1 unit) JENNIFER ZAMORA OT October 01, 2020 13:09
--- NOTE | 2020-10-01 13:36 | Occupational Ther Daily Note ---
OT Current Status-Daily Note Subjective Pt alert, sitting in recliner. Pt agrees to therapy. No c/o pain at this time. Pt stated that he was just able to order lunch. Mental Status/Objective Patient Orientation: Person, Place, Time, Situation Attachments: IV (midline) ADL-Treatment Pt agrees to shower. CGA for sit to stand and to ambulate with FWW to bathroom. Pt transferred with CGA into shower. Sitting on shower bench, pt able to complete shower using LH sponge, grabbar, hand held shower. Pt bathed all area except buttocks in sitting, mod A for sit to stand from shower bench then was able to cleanse buttocks by self with CGA for safety. Pt has AE for lower body dressing at home. Pt had difficulty with threading feet into pant leg due to wet B LE's, assist given. CGA for stability to hike pants over hips. Therapy Code Descriptions/Definitions Functional [place] Measure: 0=Not Assessed/NA 4=Minimal Assistance 1=Total Assistance 5=Supervision or Setup 2=Maximal Assistance 6=Modified [place] 3=Moderate Assistance 7=Complete IndependenceSCALE: Activities may be completed with or without assistive devices. 3-Gsmczoqnfd-qqrllpj completes the activity by him/herself with no assistance from a helper. 5-Set-up or Clean-up Assistance-helper sets up or cleans up; patient completes activity. [place] assists only prior to or following the activity. 4-Supervision or Touching Assistance-helper provides verbal cues and/or touching/steadying and/or contact guard assistance as patient completes activity. Assistance may be provided throughout the activity or intermittently. 3-Partial/Moderate Assistance-helper does LESS THAN HALF the effort. [place] lifts, holds or supports trunk or limbs, but provides less than half the effort. 2-Substantial/Maximal Assistance-helper does MORE THAN HALF the effort. [place] lifts or holds trunk or limbs and provides more than half the effort. 6-Ipbzztvei-stomln does ALL the effort. Patient does none of the effort to complete the activity. Or, the assistance of 2 or more helpers is required for the patient to complete the activity. If activity was not attempted, code reason: 7-Patient Refused. 9-Not Applicable-not attempted and the patient did not perform the activity before the current illness, exacerbation or injury. 10-Not Attempted due to Environmental Limitations-(lack of equipment, weather restraints, etc.). 88-Not Attempted due to Medical Conditions or Safety Concerns. Eating (QC): 6 Shower/Bathe Self (QC): 4 Upper Body Dressing (QC): 5 Lower Body Dressing (QC): 3 On/Off Footwear: 3 Toileting Hygiene (QC): 4 (Using clinical judgment pt is CGA for toileting.) Toilet Transfer (QC): 3 PT/OT co-treat ([id number]), skills of 2 clinicians required due to increased fatigue and weakness. PT focusing on transfers and ambulation while OT focusing on ADLs. Discussions/education about expectations and description of ARU. After therapy, pt left in care of PT. All needs met in room. OT Short Term Goals Short Term Goals Time Frame: October 15, 2020 Oral hygiene: 5 Shower/bathe self: 5 Upper body dressin Lower body dressin Putting on/taking off footwear: 5 OT [facility] Goals [facility] Goals Time Frame: Oct 26, 2020 Eating (QC): 6 Oral Hygiene (QC): 6 Toileting Hygiene (QC): 6 Shower/Bathe Self (QC): 6 Upper Body Dressing (QC): 6 Lower Body Dressing (QC): 6 On/Off Footwear (QC): 6 Additional Goals: 1-Demonstrate ADL Tasks, 2-Verbalize Understanding, 3-ImproveStrength/Neri 1=Demonstrate adherence to instructed precautions during ADL tasks. 2=Patient will verbalize/demonstrate understanding of assistive devices/modifications for ADL. 3=Patient will improve strength/tolerance for activity to enable patient to perform ADL's. OT Education/Plan Problem List/Assessment Assessment: Decreased Activ Tolerance, Decreased UE Strength, Impaired Self- Care Skills, Restricted Funct UE ROM Discharge Recommendations Plan/Recommendations: Continue POC Treatment Plan/Plan of Care Patient would benefit from OT for education, treatment and training to promote independence in ADL's, mobility, safety and/or upper extremity function for ADL's. Plan of Care: ADL Retraining, Functional Mobility, Group Exercise/Act as Ind, UE Funct Exercise/Act Treatment Duration: Oct 26, 2020 Frequency: At least 5 of 7 days/Wk (IRF) Estimated Hrs Per Day: 1 hour per day Agreement: Yes Rehab Potential: Fair Time/GCodes Start Time: 12:45 Stop Time: 13:40 Total Time Billed (hr/min): 55 Billed Treatment Time 1 visit-ADL 4 (55 min) GENO FERREIRA October 01, 2020 13:36
--- NOTE | 2020-10-01 14:30 | Physical Therapy Evaluation ---
PT Evaluation-General Medical Diagnosis Admission Date October 01, 2020 at 11:20 Medical Diagnosis: debility Onset Date: Sep 04, 2020 Therapy Diagnosis Therapy Diagnosis: Weakness; abn gait Height/Weight Height (Feet): 5 Height (Inches): 11.00 Weight (Pounds): 260 Weight (Ounces): 8.0 Precautions Precautions/Isolations: Standard Precautions Referral Physician: Hilda Reason for Referral: Evaluation/Treatment Medical History Pertinent Medical History: Arthritis, CAD, COPD, DM, [place], Neuropathy, Renal Insufficiency Additional Medical History obesity Current History Post acute respiratory failure that resulted in need for mechanical ventilation. He is post a lengthy acute hospital stay followed by a stay at an LTAC ([place]). Admitted to this facility for continued medical managment and skilled therapy services. Reviewed History: Yes Social History Home: Single Level Current Living Status: Spouse Entry Into Home: Stairs With Railing, Stairs Without Railing PT Steps Into Home: 4 (2 steps at the front door without a railing) Prior Prior Level of Function SCALE: Activities may be completed with or without assistive devices. 1-Ncswaepdby-jkcryts completes the activity by him/herself with no assistance from a helper. 5-Set-up or Clean-up Assistance-helper sets up or cleans up; patient completes activity. [place] assists only prior to or following the activity. 4-Supervision or Touching Assistance-helper provides verbal cues and/or touching/steadying and/or contact guard assistance as patient completes activity. Assistance may be provided throughout the activity or intermittently. 3-Partial/Moderate Assistance-helper does LESS THAN HALF the effort. [place] lifts, holds or supports trunk or limbs, but provides less than half the effort. 2-Substantial/Maximal Assistance-helper does MORE THAN HALF the effort. [place] lifts or holds trunk or limbs and provides more than half the effort. 3-Mcujhuimy-yqpgmr does ALL the effort. Patient does none of the effort to complete the activity. Or, the assistance of 2 or more helpers is required for the patient to complete the activity. If activity was not attempted, code reason: 7-Patient Refused. 9-Not Applicable-not attempted and the patient did not perform the activity before the current illness, exacerbation or injury. 10-Not Attempted due to Environmental Limitations-(lack of equipment, weather restraints, etc.). 88-Not Attempted due to Medical Conditions or Safety Concerns. Bed Mobility: 6 Transfers (B,C,W/C): 6 Gait: 6 Stairs: 6 Wheelchair Mobility: 9 Indoor Mobility (Ambulation): Independent Stairs: Independent Prior Devices Use: None Pt reports he has a FWW and a cane at home. PT Evaluation-Current Subjective Agrees to PT. Reports the first time he stood was just a few days ago. Reports he is anxious to get moving and get stronger. Pain Numeric Pain Scale: 3 Location: Posterior Location Body Site: Back Pain Description: Ache Comment: chronic Pt/Family Goals His goal is to return home at a mod indep level of mobility. He will be home alone during the day, so reports he needs to be mod indep at home. Objective Patient Orientation: Person, Place, Time, Situation ROM/Strength ROM Lower Extremities WFL Strength Lower Extremities B LE strength is grossly 4-/5 Integumentary/Posture Integumentary Intact Bowel Incontinence: No Bladder Incontinence: No Posture normal and symmetrical Neuromuscular (Tone, Coordination, Reflexes) Intact and without functional deficit Sensory Vision: Functional Hearing: Functional Hand Dominance: Right Sensation Right Lower Extremit: Intact Sensation Left Lower Extremity: Intact Transfers Roll Left & Right (QC): 4 Sit to Lying (QC): 4 (takes extra effort and uses the bedrail) Lying to Sitting/Side of Bed(Q: 3 (asssit with his legs. ) Sit to Stand (QC): 3 (mod assist from standard height surface. ) Chair/Dlv-nk-Pkkzg Xfer(QC): 4 Toilet Transfer (QC): 2 Car Transfer (QC): 3 Pt requires cues for hand placment and sequencing. Difficulty with sit to stand due to LE weakness. Gait Does the Patient Walk?: Yes Mode of Locomotion: Walk Anticipated Mode of Locomotion: Walk Walk 10 feet (QC): 4 Walk 50 ft with 2 Turns(QC): 4 Walk 150 ft (QC): 4 Walking 10ft/uneven surface-QC: 3 Distance: 150 ft x 2; 50 ft x 2 Gait Assistive Device: FWW Comments/Gait Description Decreased foot clearance right LE and decreased step length B; decreased functional activity tolerance. Increased SOA after 100 ft, however O2 sats were at 97%. Wheelchair Training Does the Pt Use a Wheelchair?: No Wheel 50 ft with 2 turns (QC): 9 Wheel 150 ft (QC): 9 Stairs 1 Step (curb) (QC): 3 (min assist to step up the step with FWW) 4 Steps (QC): 88 12 Steps (QC): 88 Balance Sitting Static: Normal Sitting Dynamic: Normal Standing Static: Fair Standing Dynamic: Fair Picking up an Object (QC): 88 Treatment Co treat with OT; skill of 2 clinicians required to safely and effectively complete tasks of transitional transfers and functional gait; PT addressed gross motor movements with transfers and skilled balance as OT addressed UE use/placment and sequencing/technique. Assessment/Needs Pt is post acute and lengthy hospital stay that has resulted in functional weakness and impaired balance, activity tolerance as well as ability to complete mobility tasks. He is requiring assist with bed mobility, transfers and gait. He is unable to safely return home and care for himself at this time. He will benefit from skilled PT services to address these deficits and allow him to return to a mod indep to indep level of mobility. Rehab Potential: Good PT Short Term Goals Short Term Goals Time Frame: October 08, 2020 Sit to lyin Lying to sitting on side of be: 4 Sit to stand: 4 Walk 150 feet: 4 PT Nursing Home Goals Nursing Home Goals PT Nursing Home Goals Time Frame: October 19, 2020 Roll Left & Right (QC): 6 Sit to Lying (QC): 6 Lying-Sitting on Side/Bed(QC): 6 Sit to Stand (QC): 6 Chair/Adw-bw-Yqqkp Xfer(QC): 6 Toilet Transfer (QC): 6 Car Transfer (QC): 6 Does the Patient Walk: Yes Walk 10 feet (QC): 6 Walk 50ft with 2 Turns (QC): 6 Walk 150 ft (QC): 6 Walking 10ft on Uneven Surface: 6 1 Step (curb) (QC): 6 4 Steps (QC): 6 12 Steps (QC): 4 Picking up an Object (QC): 4 Does the Pt use WC or Scooter?: No Wheel 50 feet with 2 turns (QC: 9 Wheel 150 feet: 9 PT Plan Problem List Problem List: Activity Tolerance, Functional Strength, Safety, Balance, Gait, Transfer, Bed Mobility Treatment/Plan Treatment Plan: Continue Plan of Care Treatment Plan: Bed Mobility, Education, Functional Activity Neri, Functional Strength, Group Therapy, Gait, Safety, Therapeutic Exercise, Transfers Treatment Duration: October 19, 2020 Frequency: At least 5 of 7 days/Wk (IRF) Estimated Hrs Per Day: 1.5 hours per day Patient and/or Family Agrees t: Yes Safety Risks/Education Patient Education: Transfer Techniques, Safety Issues Teaching Recipient: Patient Teaching Methods: Discussion Response to Teaching: Reinforcement Needed Time/GCodes Time In: 1120 Time Out: 1135 ([id number] (co treat with OT)) Total Billed Treatment Time: 40 Total Billed Treatment visit EVM 15 FA 25 GENO GRACE PT October 01, 2020 14:30
[2020-10-01] MEDS: DICLOFENAC 1% GEL 100 GM (VOLTAREN) TUBE TOP SCH ×2 (14:50→20:39)
--- NOTE | 2020-10-01 14:55 | Physical Therapy Daily Note ---
PT Daily Note-Current Subjective Agrees to PT visit. Reports post treatment that he is tired and wished to lie down and nap. No complaints throughout treatment session. Pain Numeric Pain Scale: 3 Location: Posterior Location Body Site: Back Pain Description: Ache Mental Status Patient Orientation: Person, Place, Time, Situation Transfers SCALE: Activities may be completed with or without assistive devices. 3-Oxvsfjjwfz-cubrnxx completes the activity by him/herself with no assistance from a helper. 5-Set-up or Clean-up Assistance-helper sets up or cleans up; patient completes activity. [place] assists only prior to or following the activity. 4-Supervision or Touching Assistance-helper provides verbal cues and/or touching/steadying and/or contact guard assistance as patient completes activity. Assistance may be provided throughout the activity or intermittently. 3-Partial/Moderate Assistance-helper does LESS THAN HALF the effort. [place] lifts, holds or supports trunk or limbs, but provides less than half the effort. 2-Substantial/Maximal Assistance-helper does MORE THAN HALF the effort. [place] lifts or holds trunk or limbs and provides more than half the effort. 1-Uogbizdsz-gkktag does ALL the effort. Patient does none of the effort to complete the activity. Or, the assistance of 2 or more helpers is required for the patient to complete the activity. If activity was not attempted, code reason: 7-Patient Refused. 9-Not Applicable-not attempted and the patient did not perform the activity before the current illness, exacerbation or injury. 10-Not Attempted due to Environmental Limitations-(lack of equipment, weather restraints, etc.). 88-Not Attempted due to Medical Conditions or Safety Concerns. Sit to Stand (QC): 3 (intermittent min assist with cues for sequencing. [place] to transition to stand up. ) Chair/Byn-qs-Ushsm Xfer(QC): 4 (CGA for safety. ) Gait Training Does the Patient Walk?: Yes Walk 10 feet (QC): 4 Walk 50 ft with 2 Turns(QC): 4 Walk 150 ft (QC): 4 Gait Assistive Device: FWW 50 ft x 2; 150 ft x 3 ; rest breaks between walking; SOA noted but O2 sats were greater than 95% throughout. Treatments Co treat partially with OT; Pt completed a shower with bathing and dressing. Skill of 2 clinicians required due to the need of 2 clinicians to complete the tasks safely; OT addressed ADL tasks as PT addressed gross motor movement with transition transfers; standing static and dynamic balance and safety with movement. Assessment Current Status: Good Progress Pt tires quickly and requires rest breaks. O2 sats monitored and remained greater than 95%. Good carryover of safety and sequencing. PT Short Term Goals Short Term Goals Time Frame: October 08, 2020 Sit to lyin Lying to sitting on side of be: 4 Sit to stand: 4 Walk 150 feet: 4 PT Tool Room Lathe Operator Goals Tool Room Lathe Operator Goals PT Assisted Goals Time Frame: October 19, 2020 Roll Left & Right (QC): 6 Sit to Lying (QC): 6 Lying-Sitting on Side/Bed(QC): 6 Sit to Stand (QC): 6 Chair/Gqi-nu-Jsnuj Xfer(QC): 6 Toilet Transfer (QC): 6 Car Transfer (QC): 6 Does the Patient Walk: Yes Walk 10 feet (QC): 6 Walk 50ft with 2 Turns (QC): 6 Walk 150 ft (QC): 6 Walking 10ft on Uneven Surface: 6 1 Step (curb) (QC): 6 4 Steps (QC): 6 12 Steps (QC): 4 Picking up an Object (QC): 4 Does the Pt use WC or Scooter?: No Wheel 50 feet with 2 turns (QC: 9 Wheel 150 feet: 9 PT Plan Problem List Problem List: Activity Tolerance, Functional Strength, Safety, Balance, Gait, Transfer, Bed Mobility Treatment/Plan Treatment Plan: Continue Plan of Care Treatment Plan: Bed Mobility, Education, Functional Activity Neri, Functional Strength, Group Therapy, Gait, Safety, Therapeutic Exercise, Transfers Treatment Duration: October 19, 2020 Frequency: At least 5 of 7 days/Wk (IRF) Estimated Hrs Per Day: 1.5 hours per day Patient and/or Family Agrees t: Yes Safety Risks/Education Patient Education: Safety Issues Teaching Recipient: Patient Teaching Methods: Discussion Discharge Recommendations Plan Progress functional strength and mobiltiy as able. Time/GCodes Time In: 1300 Time Out: 1350 Total Billed Treatment Time: 50 (co treat with OT [id number]) Total Billed Treatment visit FA 50 GENO GRACE PT October 01, 2020 14:55
--- NOTE | 2020-10-01 16:35 | PM&R Post Admission Assessment ---
PM&R HP Date of Visit: October 01, 2020 Time of Visit: 18:15 History of Present Illness CC: COPD myopathy HPI: This is a 54yoWM clinic patient of mine with multiple very complex medical issues including CAD s/p multiple stents, severe RIAZ previously non-compliant with biPAP, COPD, recurrent PNA, CRI, severe diabetes with insulin resistance, chronic pain, DJD of the spine and HTN with HLP who presents to IRF for recovery and strengthening following a long course at [facility] [place] when he was transferred there due to vent dependence on 09/10/20. He had originally been admitted for chest pain on 09/05/20 but it quickly progressed to acute on chronic respiratory failure failed biPAP and intubated. PNA was treated with IV abx and overall he remained stable and ultimately was extubated at [facility] [place] and tolerating night time biPAP. Feet are swollen but he feels like he is improved but overall tired. at the bedside. All meds were reconciled and restarted and insulin has been increased gradually as he recovers. Mcbride cath was DC and he was unable to void at [facility] [place] so he may need Urology input. Past Brsbepx-Srrhna-Hydrlf Hx Past Med/Social Hx: Reviewed Nursing Past Med/Soc Hx, Reviewed and Corrections made Patient Social History Marrital Status: Employed/Student: unemployed Alcohol Use: Denies Use Alcohol Beverage of Choice: Beer Smoking Status: Never a Smoker Type Used: Smokeless Tobacco 2nd Hand Smoke Exposure: No Recent Foreign Travel: No Contact w/other who traveled: No Recent Hopitalizations: No Immunizations Up To Date Tetanus Booster (TDap): Unknown Pediatric: No Date of Pneumonia Vaccine: Mar 21, 2018 Date of Influenza Vaccine: Feb 29, 2020 Seasonal Allergies Seasonal Allergies: Yes Past Medical History Surgeries: Orthopedic Respiratory: Chronic Bronchitis, COPD, Pneumonia, Sleep Apnea Currently Using CPAP: No Currently Using BIPAP: Yes Cardiac: Chronic Edema/Swelling, Coronary Artery Disease, High Cholesterol, Hypertension Neurological: Neuropathy Reproductive: No Sexually Transmitted Disease: No HIV/AIDS: No Genitourinary: Benign Prostatic Hyperpl, Bladder Infection, Renal Failure Gastrointestinal: Chronic Constipation Musculoskeletal: Degenerate Disk Disease, Arthritis, Gout Endocrine: Diabetes, Insulin dep HEENT: Tonsilitis Loss of Vision: Denies Hearing Impairment: Denies Psychosocial: Anxiety, Depression History of Blood Disorders: No Adverse Reaction to Blood Chen: No (N/A) Family History Abdominal aortic aneurysm 09 BROTHER Cancer 03 MOTHER Cancer of colon 03 MOTHER 09 SISTER 19 MOTHER FH: COPD (chronic obstructive pulmonary disease) 19 FATHER FH: leukemia 09 SISTER 19 MOTHER FHx: stroke 19 FATHER Family history: Diabetes mellitus 09 BROTHER 09 SISTER 09 SISTER 09 SISTER Family history: Gastrointestinal disease 03 MOTHER 09 BROTHER Cancer, Diabetes, Hypertension, Stroke SOCIAL HISTORY: -ETOH--HISTORY OF MODERATE TO HEAVY USE -DRUGS--DENIES USE -DENIES SMOKING, BUT HAS CHEWED TOBACCO PAST SURGICAL HISTORY: -CARDIAC CATHS--STENTS X 4 -EGD'S -COLONOSCOPIES/POLYPECTOMY -MULTIPLE BACK [id number] FUSION AND PLATES/RODS; NERVE STIMULATOR-REMOVED -LITHOTRIPSY -LEFT KNEE SCOPE/ACL REPAIR -WISDOM TEETH -TONSILLECTOMY/ADEONOIDECTOMY -APPENDECTOMY -CHOLECYSTECTOMY -ABDOMINAL LAPAROTOMY FOR BOWEL OBSTRUCTIONS/LYSIS OF ADHESIONS -VENTRAL HERNIA REPAIR -CHERYL FUNDOPLICATION -BILATERAL CARPAL TUNNEL -RIGHT WRIST FX/ORIF CARDIAC CATH 07/18/[address] RODRÍGUEZ: FINDINGS: Hemodynamics LV 135/15, end-diastolic pressure 15 Aorta 143/80 mean of 107 ANATOMY: Left Main is free of obstructive disease Left Anterior Descending is slightly tortuous, disease in a small diagonal branch, nonobstructive disease Ramus intermedius is moderate in size, has moderate to severe ostial stenosis, distally there is moderate disease Left Circumflex is moderate in size with small vessel disease in the distal circumflex artery nonobstructive disease Right Coronory Artery has diffuse ectasia, stent is patent the distal right coronary artery, small vessel disease distally LV Gram was not done, pressure was measured CONCLUSION: 1. Moderate to severe ostial ramus intermedius branch that is small to moderate in size. Distal disease, medical therapy is recommended 2. Tortuous LAD with moderate disease in a small diagonal artery that could be responsible for the chest pain 3. Diffuse ectasia in the right coronary artery with patent stent, small vessel disease distally 4. Small vessel disease in the circumflex artery distally 5. Normal left ventricular end-diastolic pressure DISCUSSION AND RECOMMENDATION: Medical therapy is recommended, no intervention is warranted Anesthesia Type: Conscious Sedation Estimated blood loss (mL): 25 ml Contrast Amount: 34 ml Total Radiation Dose: 550 mGy Post-Procedure Diagnosis Post-operative diagnosis: Unstable angina Coronary artery disease Hypertension Hyperlipidemia Coronary artery disease, patient had non-ST elevation myocardial infarction, underwent cardiac catheterization on April 11, 2019 revealing subtotal occlusion with diffuse ectasia in the distal right coronary artery, complex intervention requiring guide liner and multiple balloons, then deployment of Maday 423 mm stent with excellent results. Proximal RCA has diffuse ectasia with 50 percent stenosis, distal right PDA subtotally occluded, fairly small artery, will be treated medically. Severe stenosis at the distal circumflex artery with long lesion involving the obtuse marginal branch, proper circumflex and AV groove branch, all arteries are less than 2 mm in diameter. 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 Mild to moderate ectasia in LAD with mild to moderate disease diffusely, nonobstructive disease. Underwent cardiac catheterization on May 03, [address] Cartagena with 2.2532 mm Promus drug-eluting stent to the circumflex artery. Underwent repeat cardiac catheterization on May 21, 2019 revealing multivessel CAD with FFR confirmation of [id number] disease in RCA and flow-limiting disease in mid LAD. Cfs-xuec-fzhparap in proximal LAD. [id number] Synergy stent to mid LAD. Most recent cardiac catheterization done June 10, 2019 with 2.0x 12mm drug eluting Cristopher stent to first diagonal. Maintained on Effient and aspirin. Prior Level of Function Bed Mobility: 6 Transfers: 6 Gait: 6 Stairs: 6 Wheelchair Mobility: 9 Indoor Mobility (Ambulation): Independent Stairs: Independent Prior Devices Use: None Self Care: Independent Functional Cognition: Independent Drive Self: Yes Current Level of Fuctioning Roll Left to Right: 4 Sit to Lyin (takes extra effort and uses the bedrail) Lying to Sitting/Side of Bed: 3 (asssit with his legs. ) Sit to Stand: 3 (intermittent min assist with cues for sequencing. [place]ocks to transition to stand up. ) Chair/Ybf-gb-Dylok Xfer: 4 (CGA for safety. ) Car Transfer: 3 Does the Patient Walk: Yes Mode of Locomotion: Walk Anticipated Mode of Locomotion: Walk Walk 10 feet: 4 Walk 50 ft with 2 Turns: 4 Walk 150 ft: 4 Walking 10ft on uneven surface: 3 Gait Assistive Device: FWW Does the Pt Use a Wheelchair: No Wheel 50 ft with 2 turns: 9 Wheel 150 ft: 9 1 Step (curb): 3 (min assist to step up the step with FWW) 4 Steps: 88 12 Steps: 88 Picking up an Object: 88 Eatin Oral Hygiene: 7 Shower/Bathe Self: 4 Upper Body Dressin Lower Body Dressin On/Off Footwear: 3 Toileting Hygiene: 4 (Using clinical judgment pt is CGA for toileting.) Toilet Transfer: 3 PM&R Allergy/Meds/Data Review Allergies Coded Allergies: No Known Drug Allergies (Unverified , 12/29/19) Home Medications Scheduled Aspirin (Aspirin), 81 MG PO DAILY, (Reported) Carvedilol (Coreg), 25 MG PO BID, (Reported) Diclofenac Sodium (Voltaren), 1 APPLIC TOP TID, (Reported) Enoxaparin Sodium (Enoxaparin Sodium), 40 MG SQ BID, (Reported) Insulin Glargine,Hum.rec.anlog (Lantus), 10 UNIT SQ DAILY, (Reported) Insulin Lispro (Insulin Lispro), 0-22 UNIT SQ ACHS, (Reported) Pantoprazole Sodium (Pantoprazole Sodium), 40 MG PO DAILY, (Reported) Tamsulosin HCl (Flomax), 0.4 MG PO 1800, (Reported) Scheduled PRN Acetaminophen (Tylenol), 650 MG PO Q4H PRN for PAIN-MILD (1-4) OR TEMPATURE, (Reported) Hydrocodone/Acetaminophen (Hydrocodone-Acetamin 7.5-325), 1 EACH PO Q6H PRN for PAIN-MODERATE (5-7), (Reported) Ipratropium/Albuterol Sulfate (Iprat-Albut 0.5-3(2.5) mg/3 ml), 3 ML IH Q4H PRN for SHORTNESS OF BREATH, (Reported) Phenol/Glycerin (Chloraseptic Max [place]), 1-2 SPRAYS MM EVERY 2 HOURS PRN for SORE THROAT, (Reported) Simethicone (Simethicone), 160 MG PO Q4H PRN for GAS/GI UPSET, (Reported) Current Medications Current Medications Reviewed Laboratory Data Laboratory Tests 10/01/20 15:29: Glucometer 224H Review of Systems Constitutional: see HPI, malaise, weakness EENTM: no symptoms reported Respiratory: short of breath Cardiovascular: no symptoms reported Gastrointestinal: no symptoms reported Genitourinary: other (retention) Musculoskeletal: back pain, muscle pain, neck pain Skin: no symptoms reported Psychiatric/Neurological: Anxiety, Depressed All Other Systems Reviewed Negative Unless Noted: Yes Physical Exam Physical Exam Vital Signs Vital Signs - First Documented 10/01/20 11:30 Temp 36.5 Pulse 101 Resp 20 B/P (MAP) 139/78 (98) Pulse Ox 96 O2 Delivery Room Air Capillary Refill : Height, Weight, BMI Height: 5'11.00" Weight: 260lbs. 8.0oz. [id number]; 36.88 BMI Method:Stated General Appearance: No Apparent Distress, WD/WN, Chronically ill, Obese Eyes: Bilateral Eye Normal Inspection, Bilateral Eye PERRL HEENT: PERRL/EOMI, Normal ENT Inspection, Pharynx Normal Neck: Full Range of Motion, Normal Inspection, Non Tender, Supple, Carotid Bruit Respiratory: Chest Non Tender, Lungs Clear, No Accessory Muscle Use, No Respiratory Distress, Decreased Breath Sounds Cardiovascular: Regular Rate, Rhythm, No Gallop, No JVD, No Murmur, Normal Peripheral Pulses Gastrointestinal: Normal Bowel Sounds, No Organomegaly, No Pulsatile Mass, Non Tender, Soft Back: Normal Inspection, No CVA Tenderness, No Vertebral Tenderness Extremity: Normal Capillary Refill, Normal Inspection, Normal Range of Motion, Non Tender, No Calf Tenderness, Pedal Edema Neurologic/Psychiatric: Alert, Oriented x3, No Motor/Sensory Deficits, clam shucking machine tender II- XII Norm as Tested, Abnormal Gait, Depressed Affect, Motor Weakness (generalized 4/5) Skin: Normal Color, Warm/Dry Lymphatic: No Adenopathy PM&R Medical Assessment & Plan REHAB/MEDICAL ASSESSMENT AND PLAN: REHAB IMPAIRMENT GROUP: COPD myopathy ETIOLOGIC DIAGNOSIS: COPD myopathy The comorbidities that impact the patients function and/or functional outcome by: severe RIAZ previously untreated due to non-compliance, CAD, CRI, DM OOC REHAB PLAN: The patient is being admitted to our comprehensive inpatient rehabilitation facility and can tolerate the intensity of service consisting of at least: 180 minutes of therapy a day, 5 out of 7 days a week Rehab treatment will consist of: PT OT will focus on regaining strength and ambulation while increase independence in ADL's in order to return home with his spouse The patient/family has a good understanding of our discharge process and will benefit from an interdisciplinary inpatient rehabilitation program. The patient has potential to make improvement and is in need of at least two of the following multidisciplinary therapies including but not limited to physical, occupational, speech, and prosthetics and orthotics. Additionally the patient will need services from respiratory, nutritional services, wound care, psychology, etc. (Customize this to each patient). Given the patients complex condition and risk of further medical complications, rehabilitation services cannot be safely or effectively provided at a lower level of care such as a [place] [facility] facility. BARRIERS TO DISCHARGE: Severe RIAZ at high risk for decompensation ESTIMATED LOS: 10 days DISPOSITION: Home RELEVANT CHANGES SINCE PREADMISSION SCREENING: I have compared the patients medical and functional status at the time of the preadmission screening and there are: no changes PROGNOSIS: Good REHABILITATION GOALS: 1. PT OT will focus on regaining strength and ambulation while increase independence in ADL's in order to return home with his spouse All the above goals were reviewed with the patient and he/she is in agreement. By signing this document, I acknowledge that I have personally performed a full physical examination on this patient within 24 hours of admission to this inpatient rehabilitation facility and have determined the patient to be able to tolerate the above course of treatment at an intensive level for a reasonable period of time. I will be completing a detailed individualized Plan of Care for this patient by day #4 of the patients stay based upon the Preadmission Screen, the Post-Admission Evaluation, and the therapy evaluations. Admission Dx/Comorbidities: (1) Acute on chronic respiratory failure with hypoxia and hypercapnia ICD Codes: J96.21 - Acute and chronic respiratory failure with hypoxia; J96.22 - Acute and chronic respiratory failure with hypercapnia (2) Urinary retention ICD Codes: R33.9 - Retention of urine, unspecified (3) Edema ICD Codes: R60.9 - Edema, unspecified (4) Stented coronary artery ICD Codes: Z95.5 - Presence of coronary angioplasty implant and graft (5) CAD (coronary artery disease) Status: Acute ICD Codes: I25.10 - Atherosclerotic heart disease of [place] coronary artery without angina pectoris (6) RIAZ (obstructive sleep apnea) ICD Codes: G47.33 - Obstructive sleep apnea (adult) (pediatric) (7) Chronic pain Status: Chronic ICD Codes: G89.29 - Other chronic pain (8) Renal insufficiency ICD Codes: N28.9 - Disorder of kidney and ureter, unspecified (9) Anxiety Status: Acute ICD Codes: F41.1 - Generalized anxiety disorder (10) Angina pectoris syndrome ICD Codes: I20.9 - Angina pectoris, unspecified (11) Diabetes mellitus, insulin dependent (IDDM), uncontrolled Status: Acute ICD Codes: E11.65 - Type 2 diabetes mellitus with hyperglycemia; Z79.4 - detention (current) use of insulin Assessment/Plan Assessment and Plan Assess & Plan/Chief Complaint Assessment: COPD myopathy Severe RIAZ previous untreated causing acute respiratory failure 09/05/20 s/p vent dependence now wearing/tolerating home biPAP machine DM with severe insulin resistance HTN HLP CAD previous stents Angina CRI Spine disease Plan: IRF protocol Monitor diabetes requires extreme amount of insulin Home meds BiPAP IRINEO GONSALEZ DO October 01, 2020 16:35
[2020-10-01] MEDS: inSUlin ASPART (NovoLOG) 1 UNIT/0.01 ML (CHARGE PER UNIT) SC SCH ×2 (17:17→20:44)
[2020-10-01] MEDS: TAMSULOSIN 0.4 MG (FLOMAX) CAP PO SCH (17:18)
[2020-10-01] MEDS: inSUlin (REGULAR) HUMAN 1 UNIT/0.01 ML (CHARGE PER UNIT) SC SCH ×2 (17:18→20:35)
[2020-10-01] MEDS: ACETAMINOPHEN 325 MG TABLET PO PRN (18:00)
[2020-10-01 19:54] VITALS: BP 110/76
[2020-10-01] MEDS: MELATONIN 3 MG TABLET PO PRN (20:32)
[2020-10-01] MEDS: HYDROcodone/APAP 7.5 MG/325 MG (LORTAB, LORCET PLUS) TABLET PO PRN (20:33)
[2020-10-01] MEDS: ENOXAPARIN 40 MG/0.4 ML (LOVENOX) SYR SQ SCH (20:33)
[2020-10-01] MEDS: SENNA W/DOCUSATE (SENOKOT S) TABLET PO SCH (20:38)
[2020-10-01] MEDS: DOCUSATE SODIUM 100 MG (COLACE) CAP PO SCH (20:38)
[2020-10-01] MEDS: polyethylene glycoL POWDER 17 GM (MIRALAX) PACK PO SCH (20:38)
[2020-10-01] MEDS ORDERED: NON-FORMULARY MEDICATION 1 EA EA (Carvedilol (Coreg) 25 MG) PO SCH (21:00)
--- NOTE | 2020-10-02 05:40 | Individualized Plan of Care ---
Individualized Plan of Care Rehab Nursing IPOC Order Admission Date October 01, 2020 at 11:20 Current Orders Orders Admission Order(Inpt,Obs,Sdc) (10/01/20:27) Vital Signs: Per Unit Policy ( ,16,00 (10/01/20 09:27) Ervin Lares (10/01/20:27) Sequential Compression Device .admit (10/01/20:) Urology Nurse-Inpt Rehab Con (10/01/20:) Rehab Nursing Orders-Ipoc (10/01/20:) Physical Therapy Rehab Orders (10/01/20:) Occupational Therapy Rehab Ord (10/01/20:) Speech Therapy Rehab Orders (10/01/20) Cbc With Automated Diff (10/02/20 06:00) Comprehensive Metabolic Panel (10/02/20 06:00) Precautions (Aru) (10/01/20:) Rehab-Intensity Of Therapy (10/01/20:) Initiate Admission Nursing Pro .admission (10/01/20:) Acetaminophen Tablet/Caplet (Tylenol T (10/01/20:30) Alprazolam Tablet (Xanax Tablet) (10/01/20:30) Calcium Carbonate Chew Tablet (Antacid C (10/01/20:30) Diphenhydramine Tablet (Benadryl Tablet) (10/01/20:30) Docusate Sodium Capsule (Colace Capsule) (10/01/20 21:00) Docusate Sodium Capsule (Colace Capsule) (10/01/20:30) Bisacodyl Suppository (Dulcolax Supposit (10/01/20:30) Lactulose Oral Solution (Enulose Oral So (10/01/20:30) Na Phos/Na Biphos Enema (Fleet Enema Aneudy (10/01/20:30) Guaifenesin/Codeine Syrup (Robitussin Ac (10/01/20:30) Loperamide Tablet (Imodium Tablet) (10/01/20:30) Melatonin Tablet (Melatonin Tablet) (10/01/20:30) Polyethylene Glycol Powder Pkt (Miralax (10/01/20 21:00) Ondansetron Oral Dissolve Tab (Zofran (10/01/20 09:30) Senna S Tablet (Senokot S Tablet) (10/01/20 21:00) Code/Resuscitation (10/01/20 09:27) Initiate Admission Nursing Pro .admission (10/01/20 09:27) Admission Arrival Bed Request (10/01/20 11:26) Aspirin Chewable Tablet (Baby Aspirin Ch (10/02/20 09:00) Diclofenac 1% Gel (Voltaren 1% Gel) (10/01/20 13:00) Enoxaparin Injection (Lovenox Injection) (10/01/20 21:00) Hydrocodone/Apap 7.5/325 Tab (Lortab 7. (10/01/20 12:30) Albuterol/Ipra Inhalation Soln (Duoneb I (10/01/20 12:30) Pantoprazole Tablet (Protonix Tablet) (10/02/20 09:00) Simethicone Tablet (Mylicon Chewable Tab (10/01/20 12:30) Tamsulosin Capsule (Flomax Capsule) (10/01/20 18:00) (Nf) Acetaminophen (Tylenol) (10/01/20 12:30) (Nf) Carvedilol (Coreg) (10/01/20 21:00) (Nf) Insulin Glargine,Hum.Rec.Anlog (Laz (10/02/20 09:00) (Nf) Phenol/Glycerin (Chloraseptic Max S (10/01/20 12:30) Accucheck Achs ACHS (10/01/20 12:27) Insulin Aspart (Novolog) (Novolog (Charg (10/01/20 16:00) Cho 75g/M 0snack (21-2400 Zak) (10/01/20 Lunch) Carvedilol Tablet (Coreg Tablet) (10/01/20 21:00) Phenol Throat [place] (Chloraseptic [place]) (10/01/20 12:45) Insulin Determir (Per Unit) (Levemir (Pe (10/02/20 09:00) Patient Visit (10/01/20 ) Pt Eval Moderate Complexity (10/01/20 ) Functional Activities, Ea 15 (10/01/20 ) Patient Visit (10/01/20 ) Functional Activities, Ea 15 (10/01/20 ) Insulin (Regular) Human (Novolin R (Per (10/01/20 16:45) Consult Cardiology (10/01/20 20:29) Insulin Determir (Per Unit) (Levemir (Pe (10/01/20 21:00) Prasugrel Tablet (Effient Tablet) (10/02/20 09:00) Insulin Determir (Per Unit) (Levemir (Pe (10/02/20 09:00) Insulin (Regular) Human (Novolin R (Per (10/02/20 11:00) Insulin Determir (Per Unit) (Levemir (Pe (10/01/20 21:57) Baclofen Tablet (Lioresal Tablet) (10/02/20 08:45) Sodium Chloride Flush (Catheter Flush Sy (10/02/20 14:00) Patient Visit (10/02/20 ) Speech Sound Lang Comp (10/02/20 ) Patient Visit (10/02/20 ) Gait Training, Ea 15 Min (10/02/20 ) Functional Activities, Ea 15 (10/02/20 ) Exercise Therap, Ea 15 Min (10/02/20 ) Rehab Nursing Orders: Ongoing Assess. of Function Status, Bladder Management, Bladder Scan, Bladder Training, Bowel Management, Bowel Training, Disease Management & Educaiton, DVT Prophylaxis, Fall Prevention, Fluid/Electrolyte/Nutrition Mgmt, Infection Prevention, Medication Management & Education, Management of Risks & Complications, Nutrition Management, Pain Management, Patient/Family Support, Safety Management Intensity of Therapy to be met Patient to be seen: Min.3h per day/5 of 7d PT IPOC Problem List: Activity Tolerance, Functional Strength, Safety, Balance, Gait, Transfer, Bed Mobility Treatment Plan: Continue Plan of Care Bed Mobility, Education, Functional Activity Neri, Functional Strength, Group Therapy, Gait, Safety, Therapeutic Exercise, Transfers Treatment Duration: October 19, 2020 Frequency: At least 5 of 7 days/Wk (IRF) Estimated Hrs Per Day: 1.5 hours per day OT IPOC Problems: Decreased Activ Tolerance, Decreased UE Strength, Impaired Self-Care Skills, Restricted Funct UE ROM OT Treatment, Training and Edu: Yes Plan of Care: ADL Retraining, Functional Mobility, Group Exercise/Act as Ind, UE Funct Exercise/Act Treatment Duration: Oct 26, 2020 Frequency: At least 5 of 7 days/Wk (IRF) Estimated Hrs Per Day: [address] IPOC Speech Therapy Treatment Plan: Discontinue ST Treatment Duration: October 02, 2020 Frequency: Modified Program (IRF) Estimated Hrs Per Day: Other Urology Nurse/Case Mgmt Urology Nurse/Case Managemen: Discharge Planning Dietitian/Wholesale Manager Dietitian/Wholesale Manager to monitor nutritional status and make changes and/or recommendations as needed and work with speech pathology on dietary upgrades as the occur. Physician IPOC Medical Issues being managed closely and that require the 24 hour availability of a physician: Recent acute respiratory failure with non-compliance with biPAP for years will have an increased risk for decompensation Medical Issues: Bowel/Bladder Function, DVT Prophylaxis, Falls Precautions, Fluid/Electrolyte/Nutrition Balance, Infection Protection, Pain Management Brief Synthesis of Preadmission Screen, Post-Admission Evaluation, and Therapy Evaluations: PT OT will focus on regaining ambulatory function and increased ADL independence while increasing respiratory strength Medical Prognosis: Good Anticipated Length of Stay: 10 days IRINEO GONSALEZ DO October 02, 2020 05:40
--- NOTE | 2020-10-02 05:40 | PM&R Progress Note ---
Subjective HPI/CC On Admission Date Seen by Provider: October 02, 2020 Time Seen by Provider: 09:00 Subjective/Events-last exam Pt had a much better night Took a pain pill and Melatonin Baclofen will be ordered Has lost 70lbs since admission on 09/05/20 Pain pill with the Melatonin seemed to work well so we will continue that regimen Compression stockings with MASHA wraps over will be initiated for the edema Review of Systems General: Fatigue, Malaise Pulmonary: Dyspnea Objective Exam Vital Signs Vital Signs Date Time Temp Pulse Resp B/P (MAP) Pulse Ox O2 Delivery O2 Flow Rate FiO2 10/02/20 21:03 Room Air 10/02/20 19:32 37.0 104 16 128/69 (88) 96 Capillary Refill : General Appearance: No Apparent Distress, WD/WN, Chronically ill, Obese HEENT: PERRL/EOMI, Normal ENT Inspection, Pharynx Normal Neck: Full Range of Motion, Normal Inspection, Non Tender, Supple, Carotid Bruit Respiratory: Chest Non Tender, Lungs Clear, No Accessory Muscle Use, No Respiratory Distress, Decreased Breath Sounds Cardiovascular: Regular Rate, Rhythm, No Gallop, No JVD, No Murmur, Normal Peripheral Pulses Gastrointestinal: Normal Bowel Sounds, No Organomegaly, No Pulsatile Mass, Non Tender, Soft Back: Normal Inspection, No CVA Tenderness, No Vertebral Tenderness Extremity: Normal Capillary Refill, Normal Inspection, Normal Range of Motion, Non Tender, No Calf Tenderness, Pedal Edema Neurologic/Psychiatric: Alert, Oriented x3, No Motor/Sensory Deficits, safety deposit supervisor II- XII Norm as Tested, Abnormal Gait, Depressed Affect, Motor Weakness (generalized 4/5) Skin: Normal Color, Warm/Dry Lymphatic: No Adenopathy Results/Procedures Lab Laboratory Tests 10/02/20 06:14 Patient resulted labs reviewed. FIM Transfers Therapy Code Descriptions/Definitions Functional [place] Measure: 0=Not Assessed/NA 4=Minimal Assistance 1=Total Assistance 5=Supervision or Setup 2=Maximal Assistance 6=Modified [place] 3=Moderate Assistance 7=Complete IndependenceSCALE: Activities may be completed with or without assistive devices. 3-Omzxwfcqhs-vjisamt completes the activity by him/herself with no assistance from a helper. 5-Set-up or Clean-up Assistance-helper sets up or cleans up; patient completes activity. [place] assists only prior to or following the activity. 4-Supervision or Touching Assistance-helper provides verbal cues and/or touching/steadying and/or contact guard assistance as patient completes activity. Assistance may be provided throughout the activity or intermittently. 3-Partial/Moderate Assistance-helper does LESS THAN HALF the effort. [place] lifts, holds or supports trunk or limbs, but provides less than half the effort. 2-Substantial/Maximal Assistance-helper does MORE THAN HALF the effort. [place] lifts or holds trunk or limbs and provides more than half the effort. 3-Ovvyanycf-dgsqtq does ALL the effort. Patient does none of the effort to complete the activity. Or, the assistance of 2 or more helpers is required for the patient to complete the activity. If activity was not attempted, code reason: 7-Patient Refused. 9-Not Applicable-not attempted and the patient did not perform the activity before the current illness, exacerbation or injury. 10-Not Attempted due to Environmental Limitations-(lack of equipment, weather restraints, etc.). 88-Not Attempted due to Medical Conditions or Safety Concerns. Roll Left to Right (QC): 4 Sit to Lying (QC): 4 (takes extra effort and uses the bedrail) Sit to Stand (QC): 3 (intermittent min assist with cues for sequencing. [place] to transition to stand up. ) Chair/Nqh-px-Ecuxf Xfer(QC): 4 (CGA for safety. ) Car Transfer (QC): 3 Gait Training Does the Patient Walk?: Yes Walk 10 feet (QC): 4 Walk 50 ft with 2 Turns(QC): 4 Walk 150 ft (QC): 4 Walking 10ft/uneven surface-QC: 3 Gait Assistive Device: FWW Wheelchair Training Does the Pt Use a Wheelchair?: No Wheel 50 ft with 2 turns (QC): 9 Wheel 150 ft (QC): 9 Stair Training 1 Step (curb) (QC): 3 (min assist to step up the step with FWW) 4 Steps (QC): 88 12 Steps (QC): 88 Balance Picking up an Object (QC): 88 ADL-Treatment Eating (QC): 6 Oral Hygiene (QC): 7 Shower/Bathe Self (QC): 4 Upper Body Dressing (QC): 5 Lower Body Dressing (QC): 3 On/Off Footwear (QC): 3 Toileting Hygiene (QC): 4 (Using clinical judgment pt is CGA for toileting.) Toilet Transfer (QC): 3 Assessment/Plan Assessment and Plan Assess & Plan/Chief Complaint Assessment: COPD myopathy Severe RIAZ previous untreated causing acute respiratory failure 09/05/20 s/p vent dependence now wearing/tolerating home biPAP machine DM with severe insulin resistance HTN HLP CAD previous stents Angina CRI Spine disease Anemia hgb 11 Thrombocytopenia Plan: IRF protocol Monitor diabetes requires extreme amount of insulin Home meds BiPAP 10/02/20: Monitor O2 IRF therapies Monitor sugar (1) Acute on chronic respiratory failure with hypoxia and hypercapnia (2) Urinary retention (3) Edema (4) Stented coronary artery (5) CAD (coronary artery disease) Status: Acute (6) RIAZ (obstructive sleep apnea) (7) Chronic pain Status: Chronic (8) Renal insufficiency (9) Anxiety Status: Acute (10) Angina pectoris syndrome (11) Diabetes mellitus, insulin dependent (IDDM), uncontrolled Status: Acute IRINEO GONSALEZ DO October 02, 2020 05:40
[2020-10-02] MEDS: inSUlin ASPART (NovoLOG) 1 UNIT/0.01 ML (CHARGE PER UNIT) SC SCH ×4 (06:00→21:17)
[2020-10-02 06:21] LABS: BASOPHILS % (AUTO) 0 % (0-10); EOSINOPHILS % (AUTO) 1 % (0-10); HEMATOCRIT 33 % (40-54); LYMPHOCYTES # (AUTO) 0.8 10^3/uL (1.0-4.0); LYMPHOCYTES % (AUTO) 9 % (12-44); MEAN CORPUSCULAR HEMOGLOBIN 32 pg (25-34); MEAN CORPUSCULAR HGB CONC 33 g/dL (32-36); MEAN CORPUSCULAR VOLUME 95 fL (80-99); MEAN PLATELET VOLUME 11.2 fL (9.0-12.2); MONOCYTES # (AUTO) 0.8 10^3/uL (0.0-1.0); MONOCYTES % (AUTO) 9 % (0-12); NEUTROPHILS # (AUTO) 6.9 10^3/uL (1.8-7.8); NEUTROPHILS % (AUTO) 80 % (42-75); PLATELET COUNT 103 10^3/uL (130-400); WHITE BLOOD COUNT 8.5 10^3/uL (4.3-11.0)
[2020-10-02] MEDS: inSUlin (REGULAR) HUMAN 1 UNIT/0.01 ML (CHARGE PER UNIT) SC SCH ×4 (06:29→21:17)
[2020-10-02 06:45] LABS: ALANINE AMINOTRANSFERASE 47 U/L (0-55); ALKALINE PHOSPHATASE 73 U/L (40-136); BILIRUBIN,TOTAL 1.7 MG/DL (0.1-1.0); BUN/CREATININE RATIO 12; CALCIUM 8.6 MG/DL (8.5-10.1); CARBON DIOXIDE 23 MMOL/L (21-32); CHLORIDE 103 MMOL/L (98-107); CREATININE SERUM 0.74 MG/DL (0.60-1.30); GFR ESTIMATED > 60; GLUCOSE 170 MG/DL (70-105); POTASSIUM 3.6 MMOL/L (3.6-5.0); SODIUM 137 MMOL/L (135-145); TOTAL PROTEIN 5.8 GM/DL (6.4-8.2)
[2020-10-02 08:00] VITALS: BP 126/72
[2020-10-02] MEDS ORDERED: NON-FORMULARY MEDICATION 1 EA EA (Insulin Glargine,Hum.rec.anlog (Lantus) 10 UNIT) SQ SCH (09:00)
--- NOTE | 2020-10-02 09:49 | ST Cognitive Linguistic Eval ---
Speech Evaluation-General Medical Diagnosis Debility Onset Date: Sep 04, 2020 Therapy Diagnosis Therapy Diagnosis: Cognitive Communication Precautions Precautions: Fall Precautions/Isolations: Fall Prevention, Standard Precautions Referral Referring Physician: Dr. Stevens Medical History Pertinent Medical History: Arthritis, CAD, COPD, DM, ND, Neuropathy, Renal Insufficiency Arthritis, CAD, COPD, DM, ND, Neuropathy, Renal Insufficiency Current History Debility Reviewed History: Yes Social History Current Living Status: Spouse Speech PLF-Current Status Prior Level of Function Prior to ARU admission, pt's PLF was independent in his daily activities. Subjective Pt was alert and pleasant. Pt agreed to ST evaluation. Pt was talkative, though he spoke in a soft voice after being on the vent. Language Eval: Auditory Comprehends Simple Yes/No Ques: Functional Indent/Objects Multiple Price: Functional Ident/Pics in Multiple Price: Functional Follows 1-Step Commands: Functional Follows Complex Directions: Functional Follows General Conversations: Functional Language Eval: Verbal Language Completes Spontaneous Greeting: Functional Produces Auto, Serial Info: Functional Imitates Simple Words/Phrases: Functional Word Finding: Functional Requests Basic Needs: Functional States Basic Personal Info: Functional Expresses Complex Ideas: Functional Language Evaluation: Reading Comprehends Single Nouns: Functional Follows Simple Written Direct: Functional Comprehends Multiple Sentences: Functional Cognitive Patient Orientation Patient oriented x3. Objective Cognitive Domain Attention: WNL Memory: WNL Problem Solving: Functional Executive Functions: WNL Visuospatial Skills: WNL Composite Severity Rating: WNL Clock Drawing Severity Rating: WNL Objective Formal/Standardized Tests [facility] Mental Status Examination ([facility]) Results 27/30 Oral Motor/Speech Production Speech production is soft. Impression Pt is a pleasant 54 y/o male admitted to the ARU s/p respiratory failure. Pt agreed to ST evaluation. Pt reports that he is eating a regular diet though his appetite has decreased. Pt was administered the SLUMS and scored a 27/30 points, indicating no need for further ST services. Pt was alert and oriented to location, day of the week and year. Speech Patient Assess Expression of Ideas/Wants: Expression (4) Understanding Verbal Content: Understands (4) Brief Interview-Mental Status: Yes Repetition of Three Words: Three (3) Temporal Orientation: Year: Correct (3) Temporal Orientation: Month: Accurate within 5 days(2) Temporal Orientation: Day: Correct (1) Recall : Wear to say "Sock": Yes, no cue required (2) Recall : Color: Yes, after cueing (1) Recall : Bed: Yes, no cue required (2) Memory/Recall Ability: Current season, That he or she is in a hsp/hsp unit Speech-Plan Patient/Family Goals Patient/Family Goals: Pt plans to return home where he lives with his upon D/C from ARU. Treatment Plan Speech Therapy Treatment Plan: Discontinue ST Treatment Duration: October 02, 2020 Frequency: 1 time per week Estimated Hrs Per Day: .5 hour per day Rehab Potential: Good Barriers to Learning: Medical status and age. Pt/Family Agrees to Plan: Yes Safety Risks/Education Teaching Recipient: Patient Teaching Methods: Discussion Response to Teaching: Verbalize Understanding Education Topics Provided: Safety awareness and compensatory cognitive communication strategies. Time Speech Therapy Time In: 10:30 Speech Therapy Time Out: 11:00 Total Billed Time: 30 Billed Treatment Time 1, SPSNDCOMP DARRIN White October 02, 2020 09:49
--- NOTE | 2020-10-02 09:52 | Occupational Ther Daily Note ---
OT Current Status-Daily Note ADL-Treatment Therapy Code Descriptions/Definitions Functional [place] Measure: 0=Not Assessed/NA 4=Minimal Assistance 1=Total Assistance 5=Supervision or Setup 2=Maximal Assistance 6=Modified [place] 3=Moderate Assistance 7=Complete IndependenceSCALE: Activities may be completed with or without assistive devices. 1-Dztfokamfk-zmhrszn completes the activity by him/herself with no assistance from a helper. 5-Set-up or Clean-up Assistance-helper sets up or cleans up; patient completes activity. [place] assists only prior to or following the activity. 4-Supervision or Touching Assistance-helper provides verbal cues and/or touching/steadying and/or contact guard assistance as patient completes activity. Assistance may be provided throughout the activity or intermittently. 3-Partial/Moderate Assistance-helper does LESS THAN HALF the effort. [place] lifts, holds or supports trunk or limbs, but provides less than half the effort. 2-Substantial/Maximal Assistance-helper does MORE THAN HALF the effort. [place] lifts or holds trunk or limbs and provides more than half the effort. 1-Qkfmnpbgi-bnoiti does ALL the effort. Patient does none of the effort to complete the activity. Or, the assistance of 2 or more helpers is required for the patient to complete the activity. If activity was not attempted, code reason: 7-Patient Refused. 9-Not Applicable-not attempted and the patient did not perform the activity before the current illness, exacerbation or injury. 10-Not Attempted due to Environmental Limitations-(lack of equipment, weather restraints, etc.). 88-Not Attempted due to Medical Conditions or Safety Concerns. OT Short Term Goals Short Term Goals Time Frame: October 15, 2020 Oral hygiene: 5 Shower/bathe self: 5 Upper body dressin Lower body dressin Putting on/taking off footwear: 5 OT Shelter Goals Well Blower Goals Time Frame: Oct 26, 2020 Eating (QC): 6 Oral Hygiene (QC): 6 Toileting Hygiene (QC): 6 Shower/Bathe Self (QC): 6 Upper Body Dressing (QC): 6 Lower Body Dressing (QC): 6 On/Off Footwear (QC): 6 Additional Goals: 1-Demonstrate ADL Tasks, 2-Verbalize Understanding, 3- ImproveStrength/Neri 1=Demonstrate adherence to instructed precautions during ADL tasks. 2=Patient will verbalize/demonstrate understanding of assistive devices/modifications for ADL. 3=Patient will improve strength/tolerance for activity to enable patient to perform ADL's. OT Education/Plan Treatment Plan/Plan of Care Patient would benefit from OT for education, treatment and training to promote independence in ADL's, mobility, safety and/or upper extremity function for ADL's. Plan of Care: ADL Retraining, Functional Mobility, Group Exercise/Act as Ind, UE Funct Exercise/Act Treatment Duration: Oct 26, 2020 Frequency: At least 5 of 7 days/Wk (IRF) Estimated Hrs Per Day: 1 hour per day Agreement: Yes Rehab Potential: GENO Villalpando October 02, 2020 09:52
[2020-10-02] MEDS: ASPIRIN 81 MG CHEW (CHILDREN'S ASA) PO SCH (10:02)
[2020-10-02] MEDS: PANTOPRAZOLE 40 MG (PROTONIX) TAB PO SCH (10:02)
[2020-10-02] MEDS: ENOXAPARIN 40 MG/0.4 ML (LOVENOX) SYR SQ SCH ×2 (10:02→21:18)
[2020-10-02] MEDS: PRASUGREL 10 MG (EFFIENT) TABLET PO SCH (10:03)
[2020-10-02] MEDS: DOCUSATE SODIUM 100 MG (COLACE) CAP PO SCH ×2 (10:03→21:16)
[2020-10-02] MEDS: polyethylene glycoL POWDER 17 GM (MIRALAX) PACK PO SCH ×2 (10:03→21:16)
[2020-10-02] MEDS: SENNA W/DOCUSATE (SENOKOT S) TABLET PO SCH ×2 (10:03→21:16)
[2020-10-02] MEDS: DICLOFENAC 1% GEL 100 GM (VOLTAREN) TUBE TOP SCH ×3 (10:04→21:18)
[2020-10-02] MEDS: BACLOFEN 10 MG (LIORESAL) TAB PO PRN ×2 (10:08→17:43)
--- NOTE | 2020-10-02 10:13 | Occupational Ther Daily Note ---
OT Current Status-Daily Note Subjective Pt sleeping in bed, woke to name. Pt agrees to therapy. Pt fatigues quickly and requires multiple recovery breaks throughout session. No c/o pain at this time. Mental Status/Objective Patient Orientation: Person, Place, Time, Situation Attachments: IV (midline) ADL-Treatment Pt declines shower, requests to wash up after exercise. Supine to sitting EOB independently. Using sock aide, pt dons socks independently. After set up, pt uses junior underwriter to don pants over feet then SBA for safety to stand and hike over hips. After set up, pt able to complete upper body dressing independently. Pt ambulated to sink and sat in chair to complete oral care. After exercise pt completed sponge bath by self after set up. At end of session, pt sitting in recliner with call light/phone in reach. Nrsg in room. All needs met. Therapy Code Descriptions/Definitions Functional [place] Measure: 0=Not Assessed/NA 4=Minimal Assistance 1=Total Assistance 5=Supervision or Setup 2=Maximal Assistance 6=Modified [place] 3=Moderate Assistance 7=Complete IndependenceSCALE: Activities may be completed with or without assistive devices. 9-Codlwigxmi-aarpbis completes the activity by him/herself with no assistance from a helper. 5-Set-up or Clean-up Assistance-helper sets up or cleans up; patient completes activity. [place] assists only prior to or following the activity. 4-Supervision or Touching Assistance-helper provides verbal cues and/or touching/steadying and/or contact guard assistance as patient completes activity. Assistance may be provided throughout the activity or intermittently. 3-Partial/Moderate Assistance-helper does LESS THAN HALF the effort. [place] lifts, holds or supports trunk or limbs, but provides less than half the effort. 2-Substantial/Maximal Assistance-helper does MORE THAN HALF the effort. [place] lifts or holds trunk or limbs and provides more than half the effort. 3-Xuulztbly-bpesxg does ALL the effort. Patient does none of the effort to complete the activity. Or, the assistance of 2 or more helpers is required for the patient to complete the activity. If activity was not attempted, code reason: 7-Patient Refused. 9-Not Applicable-not attempted and the patient did not perform the activity before the current illness, exacerbation or injury. 10-Not Attempted due to Environmental Limitations-(lack of equipment, weather restraints, etc.). 88-Not Attempted due to Medical Conditions or Safety Concerns. Oral Hygiene (QC): 6 Upper Body Dressing (QC): 5 Lower Body Dressing (QC): 4 On/Off Footwear: 6 Other Treatment Pt ambulated using FWW to therapy gym. Pt completed 4 B UE exercises to increase strength, B shldr AROM and activity tolerance for daily functional tasks. 3# wt for bicep curls, 2 sets 15 reps. Holding onto 3# wt with both hands pt completed 2 shldr strengthening exercises though pt unable to complete full AROM with wt. Reed's completed against gravity for 5 min to increase B shldr strength and AROM. After session, pt sitting in recliner with call light/phone in reach. All needs met in room. OT Short Term Goals Short Term Goals Time Frame: October 15, 2020 Oral hygiene: 5 Shower/bathe self: 5 Upper body dressin Lower body dressin Putting on/taking off footwear: 5 OT Alf Goals Cancer Genetics Assistant Goals Time Frame: Oct 26, 2020 Eating (QC): 6 Oral Hygiene (QC): 6 Toileting Hygiene (QC): 6 Shower/Bathe Self (QC): 6 Upper Body Dressing (QC): 6 Lower Body Dressing (QC): 6 On/Off Footwear (QC): 6 Additional Goals: 1-Demonstrate ADL Tasks, 2-Verbalize Understanding, 3- ImproveStrength/Neri 1=Demonstrate adherence to instructed precautions during ADL tasks. 2=Patient will verbalize/demonstrate understanding of assistive devices/modifications for ADL. 3=Patient will improve strength/tolerance for activity to enable patient to perform ADL's. OT Education/Plan Problem List/Assessment Assessment: Decreased Activ Tolerance, Decreased UE Strength, Impaired Self- Care Skills, Restricted Funct UE ROM Discharge Recommendations Plan/Recommendations: Continue POC Treatment Plan/Plan of Care Patient would benefit from OT for education, treatment and training to promote independence in ADL's, mobility, safety and/or upper extremity function for ADL's. Plan of Care: ADL Retraining, Functional Mobility, Group Exercise/Act as Ind, UE Funct Exercise/Act Treatment Duration: Oct 26, 2020 Frequency: At least 5 of 7 days/Wk (IRF) Estimated Hrs Per Day: 1 hour per day Agreement: Yes Rehab Potential: Good Time/GCodes Start Time: 08:45 Stop Time: 10:15 Total Time Billed (hr/min): 90 Billed Treatment Time 1 visit-ADL 2 (30 min) EX 4 (60 min) GENO FERREIRA October 02, 2020 10:13
--- NOTE | 2020-10-02 12:11 | Physical Therapy Daily Note ---
PT Daily Note-Current Subjective Pt sitting in recliner upon arrival. Pt agrees to PT and reports feeling stronger. Pain Numeric Pain Scale: 3 Location Body Site: Back Pain Description: Ache Mental Status Patient Orientation: Person, Place, Time, Situation Transfers SCALE: Activities may be completed with or without assistive devices. 1-Eisrtnaymq-ztelcti completes the activity by him/herself with no assistance from a helper. 5-Set-up or Clean-up Assistance-helper sets up or cleans up; patient completes activity. [place] assists only prior to or following the activity. 4-Supervision or Touching Assistance-helper provides verbal cues and/or touching/steadying and/or contact guard assistance as patient completes activity. Assistance may be provided throughout the activity or intermittently. 3-Partial/Moderate Assistance-helper does LESS THAN HALF the effort. [place] lifts, holds or supports trunk or limbs, but provides less than half the effort. 2-Substantial/Maximal Assistance-helper does MORE THAN HALF the effort. [place] lifts or holds trunk or limbs and provides more than half the effort. 0-Glcpppleo-gvfbzu does ALL the effort. Patient does none of the effort to complete the activity. Or, the assistance of 2 or more helpers is required for the patient to complete the activity. If activity was not attempted, code reason: 7-Patient Refused. 9-Not Applicable-not attempted and the patient did not perform the activity before the current illness, exacerbation or injury. 10-Not Attempted due to Environmental Limitations-(lack of equipment, weather restraints, etc.). 88-Not Attempted due to Medical Conditions or Safety Concerns. Sit to Stand (QC): 4 Weight Bearing Full Weight Bearing Full Weight Bearing Gait Training Does the Patient Walk?: Yes Distance: 125' x2 Walk 10 feet (QC): 4 Walk 50 ft with 2 Turns(QC): 4 Walk 150 ft (QC): 4 Gait Persons Needed: 1 Gait Assistive Device: FWW Wheelchair Training Does the Pt Use a Wheelchair?: No Exercises Seated Therapy Exercises: Ankle pumps, Long arc quads, Hip flexion Seated Reps: 10 NuStep Minutes: 12 NuStep Workload: 3 Treatments TF to standing, declines needing to use BR and amb. in hallway. Pt takes RB then uses NuStep for 12m at 3WL, taking RB as needed. Pt amb. in hallway before returning to room to rest in recliner. Pt & RETAIL CLIENT SOLUTIONS ANALYST discuss Weekly Thursday Mtg. and progress. All needs met, call light in hand. Assessment Current Status: Good Progress Pt fatigues and needs rest breaks. Activity tolerance will continue to be worked on. PT Short Term Goals Short Term Goals Time Frame: October 08, 2020 Sit to lyin Lying to sitting on side of be: 4 Sit to stand: 4 Walk 150 feet: 4 PT Jail Goals Jail Goals PT Cheese Sprayer Goals Time Frame: October 19, 2020 Roll Left & Right (QC): 6 Sit to Lying (QC): 6 Lying-Sitting on Side/Bed(QC): 6 Sit to Stand (QC): 6 Chair/Vsg-op-Fjhcc Xfer(QC): 6 Toilet Transfer (QC): 6 Car Transfer (QC): 6 Does the Patient Walk: Yes Walk 10 feet (QC): 6 Walk 50ft with 2 Turns (QC): 6 Walk 150 ft (QC): 6 Walking 10ft on Uneven Surface: 6 1 Step (curb) (QC): 6 4 Steps (QC): 6 12 Steps (QC): 4 Picking up an Object (QC): 4 Does the Pt use WC or Scooter?: No Wheel 50 feet with 2 turns (QC: 9 Wheel 150 feet: 9 PT Plan Problem List Problem List: Activity Tolerance Treatment/Plan Treatment Plan: Continue Plan of Care Treatment Plan: Bed Mobility, Education, Functional Activity Neri, Functional Strength, Group Therapy, Gait, Safety, Therapeutic Exercise, Transfers Treatment Duration: October 19, 2020 Frequency: At least 5 of 7 days/Wk (IRF) Estimated Hrs Per Day: 1.5 hours per day Patient and/or Family Agrees t: Yes Time/GCodes Time In: 1115 Time Out: 1215 Total Billed Treatment Time: 60 Total Billed Treatment 1, GT x2 (25m), FA (15m) & EX (20m) STEFAN SIFUENTES RETAIL CLIENT SOLUTIONS ANALYST October 02, 2020 12:11
[2020-10-02] MEDS: CATHETER FLUSH 10 ML SYR IV SCH ×2 (12:18→21:19)
--- NOTE | 2020-10-02 14:48 | Physical Therapy Daily Note ---
PT Daily Note-Current Subjective Pt sitting in recliner upon arrival. Pt reports very fatigued but agrees to PT for short ambulation. Pain Location: No Pain Reported Mental Status Patient Orientation: Person, Place, Time, Situation Transfers SCALE: Activities may be completed with or without assistive devices. 7-Gbqysrjjng-nckhbzx completes the activity by him/herself with no assistance from a helper. 5-Set-up or Clean-up Assistance-helper sets up or cleans up; patient completes activity. [place] assists only prior to or following the activity. 4-Supervision or Touching Assistance-helper provides verbal cues and/or touching/steadying and/or contact guard assistance as patient completes activity. Assistance may be provided throughout the activity or intermittently. 3-Partial/Moderate Assistance-helper does LESS THAN HALF the effort. [place] lifts, holds or supports trunk or limbs, but provides less than half the effort. 2-Substantial/Maximal Assistance-helper does MORE THAN HALF the effort. [place] lifts or holds trunk or limbs and provides more than half the effort. 6-Lotlppvcp-shckkq does ALL the effort. Patient does none of the effort to complete the activity. Or, the assistance of 2 or more helpers is required for the patient to complete the activity. If activity was not attempted, code reason: 7-Patient Refused. 9-Not Applicable-not attempted and the patient did not perform the activity before the current illness, exacerbation or injury. 10-Not Attempted due to Environmental Limitations-(lack of equipment, weather restraints, etc.). 88-Not Attempted due to Medical Conditions or Safety Concerns. Sit to Stand (QC): 5 Weight Bearing Full Weight Bearing Full Weight Bearing Gait Training Does the Patient Walk?: Yes Distance: 150' Walk 10 feet (QC): 5 Walk 50 ft with 2 Turns(QC): 4 Walk 150 ft (QC): 4 Gait Persons Needed: 1 Gait Assistive Device: FWW Wheelchair Training Does the Pt Use a Wheelchair?: No Treatments TF to standing and amb. in hallway, taking RB as needed. Pt returns to room to rest at end of amb. All needs met, call light in hand. Assessment Current Status: Fair Progress Pt has gained strength but still demonstrates lack of activity tolerance at this time. PT Short Term Goals Short Term Goals Time Frame: October 08, 2020 Sit to lyin Lying to sitting on side of be: 4 Sit to stand: 4 Walk 150 feet: 4 PT Senior Living Goals Pricing Strategist Goals PT Senior Living Goals Time Frame: October 19, 2020 Roll Left & Right (QC): 6 Sit to Lying (QC): 6 Lying-Sitting on Side/Bed(QC): 6 Sit to Stand (QC): 6 Chair/Tok-oj-Ouczg Xfer(QC): 6 Toilet Transfer (QC): 6 Car Transfer (QC): 6 Does the Patient Walk: Yes Walk 10 feet (QC): 6 Walk 50ft with 2 Turns (QC): 6 Walk 150 ft (QC): 6 Walking 10ft on Uneven Surface: 6 1 Step (curb) (QC): 6 4 Steps (QC): 6 12 Steps (QC): 4 Picking up an Object (QC): 4 Does the Pt use WC or Scooter?: No Wheel 50 feet with 2 turns (QC: 9 Wheel 150 feet: 9 PT Plan Problem List Problem List: Activity Tolerance Treatment/Plan Treatment Plan: Continue Plan of Care Treatment Plan: Bed Mobility, Education, Functional Activity Neri, Functional Strength, Group Therapy, Gait, Safety, Therapeutic Exercise, Transfers Treatment Duration: October 19, 2020 Frequency: At least 5 of 7 days/Wk (IRF) Estimated Hrs Per Day: 1.5 hours per day Patient and/or Family Agrees t: Yes Time/GCodes Time In: 1345 Time Out: 1400 Total Billed Treatment Time: 15 Total Billed Treatment 1, GT (15m) STEFAN SIFUENTES PTA October 02, 2020 14:48
[2020-10-02] MEDS: TAMSULOSIN 0.4 MG (FLOMAX) CAP PO SCH (17:17)
[2020-10-02 19:32] VITALS: BP 128/69
[2020-10-02] MEDS: HYDROcodone/APAP 7.5 MG/325 MG (LORTAB, LORCET PLUS) TABLET PO PRN (22:24)
[2020-10-03] MEDS: BACLOFEN 10 MG (LIORESAL) TAB PO PRN ×3 (04:06→21:13)
[2020-10-03] MEDS: inSUlin ASPART (NovoLOG) 1 UNIT/0.01 ML (CHARGE PER UNIT) SC SCH ×4 (05:35→21:06)
[2020-10-03] MEDS: inSUlin (REGULAR) HUMAN 1 UNIT/0.01 ML (CHARGE PER UNIT) SC SCH ×4 (06:02→21:06)
[2020-10-03] MEDS: CATHETER FLUSH 10 ML SYR IV SCH ×3 (06:02→21:07)
--- NOTE | 2020-10-03 06:03 | PM&R Progress Note ---
Subjective HPI/CC On Admission Date Seen by Provider: October 03, 2020 Time Seen by Provider: 08:30 Subjective/Events-last exam 10/03/20: Patient doing well Decreased appetite noted Flomax has helped him voiding BiPAP at night 10/02/20: Pt had a much better night Took a pain pill and Melatonin Baclofen will be ordered Has lost 70lbs since admission on 09/05/20 Pain pill with the Melatonin seemed to work well so we will continue that regimen Compression stockings with MASHA wraps over will be initiated for the edema Review of Systems General: Fatigue, Malaise Pulmonary: Dyspnea Neurological: Weakness Objective Exam Vital Signs Vital Signs Date Time Temp Pulse Resp B/P (MAP) Pulse Ox O2 Delivery O2 Flow Rate FiO2 10/03/20 20:20 Room Air 10/03/20 20:20 37.2 94 20 121/79 (93) 94 Capillary Refill : General Appearance: No Apparent Distress, WD/WN, Chronically ill, Obese HEENT: PERRL/EOMI, Normal ENT Inspection, Pharynx Normal Neck: Full Range of Motion, Normal Inspection, Non Tender, Supple, Carotid Bruit Respiratory: Chest Non Tender, Lungs Clear, No Accessory Muscle Use, No Respiratory Distress, Decreased Breath Sounds Cardiovascular: Regular Rate, Rhythm, No Gallop, No JVD, No Murmur, Normal Peripheral Pulses Gastrointestinal: Normal Bowel Sounds, No Organomegaly, No Pulsatile Mass, Non Tender, Soft Back: Normal Inspection, No CVA Tenderness, No Vertebral Tenderness Extremity: Normal Capillary Refill, Normal Inspection, Normal Range of Motion, Non Tender, No Calf Tenderness, Pedal Edema Neurologic/Psychiatric: Alert, Oriented x3, No Motor/Sensory Deficits, 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 FIM Transfers Therapy Code Descriptions/Definitions Functional [place] Measure: 0=Not Assessed/NA 4=Minimal Assistance 1=Total Assistance 5=Supervision or Setup 2=Maximal Assistance 6=Modified [place] 3=Moderate Assistance 7=Complete IndependenceSCALE: Activities may be completed with or without assistive devices. 3-Ygrpoqpjtj-ulljebu completes the activity by him/herself with no assistance from a helper. 5-Set-up or Clean-up Assistance-helper sets up or cleans up; patient completes activity. [place] assists only prior to or following the activity. 4-Supervision or Touching Assistance-helper provides verbal cues and/or touching /steadying and/or contact guard assistance as patient completes activity. Assistance may be provided throughout the activity or intermittently. 3-Partial/Moderate Assistance-helper does LESS THAN HALF the effort. [place] lifts, holds or supports trunk or limbs, but provides less than half the effort. 2-Substantial/Maximal Assistance-helper does MORE THAN HALF the effort. [place] lifts or holds trunk or limbs and provides more than half the effort. 5-Rxuffehue-rebtil does ALL the effort. Patient does none of the effort to complete the activity. Or, the assistance of 2 or more helpers is required for the patient to complete the activity. If activity was not attempted, code reason: 7-Patient Refused. 9-Not Applicable-not attempted and the patient did not perform the activity before the current illness, exacerbation or injury. 10-Not Attempted due to Environmental Limitations-(lack of equipment, weather restraints, etc.). 88-Not Attempted due to Medical Conditions or Safety Concerns. Roll Left to Right (QC): 4 Sit to Lying (QC): 4 (takes extra effort and uses the bedrail) Sit to Stand (QC): 5 Chair/Gws-xz-Wdjau Xfer(QC): 4 (CGA for safety. ) Car Transfer (QC): 3 Gait Training Does the Patient Walk?: Yes Distance: 150' Walk 10 feet (QC): 5 Walk 50 ft with 2 Turns(QC): 4 Walk 150 ft (QC): 4 Walking 10ft/uneven surface-QC: 3 Gait Persons Needed: 1 Gait Assistive Device: FWW Wheelchair Training Does the Pt Use a Wheelchair?: No Wheel 50 ft with 2 turns (QC): 9 Wheel 150 ft (QC): 9 Stair Training 1 Step (curb) (QC): 3 (min assist to step up the step with FWW) 4 Steps (QC): 88 12 Steps (QC): 88 Balance Picking up an Object (QC): 88 ADL-Treatment Eating (QC): 6 Oral Hygiene (QC): 6 Shower/Bathe Self (QC): 4 Upper Body Dressing (QC): 5 Lower Body Dressing (QC): 4 On/Off Footwear (QC): 6 Toileting Hygiene (QC): 4 (Using clinical judgment pt is CGA for toileting.) Toilet Transfer (QC): 3 Assessment/Plan Assessment and Plan Assess & Plan/Chief Complaint Assessment: COPD myopathy Severe RIAZ previous untreated causing acute respiratory failure 09/05/20 s/p vent dependence now wearing/tolerating home biPAP machine DM with severe insulin resistance HTN HLP CAD previous stents Angina CRI Spine disease Anemia hgb 11 Thrombocytopenia Plan: IRF protocol Monitor diabetes requires extreme amount of insulin Home meds BiPAP 10/02/20: Monitor O2 IRF therapies Monitor sugar 10/03/20: Monitor pain BiPAP (1) Acute on chronic respiratory failure with hypoxia and hypercapnia (2) Urinary retention (3) Edema (4) Stented coronary artery (5) CAD (coronary artery disease) Status: Acute (6) RIAZ (obstructive sleep apnea) (7) Chronic pain Status: Chronic (8) Renal insufficiency (9) Anxiety Status: Acute (10) Angina pectoris syndrome (11) Diabetes mellitus, insulin dependent (IDDM), uncontrolled Status: Acute IRINEO GONSALEZ DO October 03, 2020 06:03
[2020-10-03 08:00] VITALS: BP 122/72
[2020-10-03] MEDS: PANTOPRAZOLE 40 MG (PROTONIX) TAB PO SCH (08:34)
[2020-10-03] MEDS: DOCUSATE SODIUM 100 MG (COLACE) CAP PO SCH ×2 (08:34→21:05)
[2020-10-03] MEDS: ASPIRIN 81 MG CHEW (CHILDREN'S ASA) PO SCH (08:34)
[2020-10-03] MEDS: PRASUGREL 10 MG (EFFIENT) TABLET PO SCH (08:34)
[2020-10-03] MEDS: SENNA W/DOCUSATE (SENOKOT S) TABLET PO SCH ×2 (08:34→21:05)
[2020-10-03] MEDS: polyethylene glycoL POWDER 17 GM (MIRALAX) PACK PO SCH ×2 (08:36→20:10)
[2020-10-03] MEDS: ENOXAPARIN 40 MG/0.4 ML (LOVENOX) SYR SQ SCH ×2 (08:38→21:04)
[2020-10-03] MEDS: DICLOFENAC 1% GEL 100 GM (VOLTAREN) TUBE TOP SCH ×3 (08:38→21:07)
--- NOTE | 2020-10-03 10:08 | Occupational Ther Daily Note ---
OT Current Status-Daily Note Subjective Pt alert, sitting in recliner. Pt agrees to therapy. No c/o pain at this time. Mental Status/Objective Patient Orientation: Person, Place, Time, Situation Attachments: IV (midline) ADL-Treatment Pt fatigues quickly. Requires multiple recovery breaks. Pt has AE for lower body dressing at home and demonstrates knowledge of use. SBA for showering using shower bench, grabbars, LH sponge and hand held shower. Set up for upper body dressing. Set up and SBA for safety for lower body dressing. Sitting at sink, independent for oral care. SBA for toileting. Therapy Code Descriptions/Definitions Functional [place] Measure: 0=Not Assessed/NA 4=Minimal Assistance 1=Total Assistance 5=Supervision or Setup 2=Maximal Assistance 6=Modified [place] 3=Moderate Assistance 7=Complete IndependenceSCALE: Activities may be completed with or without assistive devices. 3-Iavrfxeeus-sstcybo completes the activity by him/herself with no assistance from a helper. 5-Set-up or Clean-up Assistance-helper sets up or cleans up; patient completes activity. [place] assists only prior to or following the activity. 4-Supervision or Touching Assistance-helper provides verbal cues and/or touching/steadying and/or contact guard assistance as patient completes activity. Assistance may be provided throughout the activity or intermittently. 3-Partial/Moderate Assistance-helper does LESS THAN HALF the effort. [place] lifts, holds or supports trunk or limbs, but provides less than half the effort. 2-Substantial/Maximal Assistance-helper does MORE THAN HALF the effort. [place] lifts or holds trunk or limbs and provides more than half the effort. 2-Oybrflbcr-tfivpg does ALL the effort. Patient does none of the effort to complete the activity. Or, the assistance of 2 or more helpers is required for the patient to complete the activity. If activity was not attempted, code reason: 7-Patient Refused. 9-Not Applicable-not attempted and the patient did not perform the activity before the current illness, exacerbation or injury. 10-Not Attempted due to Environmental Limitations-(lack of equipment, weather restraints, etc.). 88-Not Attempted due to Medical Conditions or Safety Concerns. Oral Hygiene (QC): 6 Shower/Bathe Self (QC): 4 Upper Body Dressing (QC): 5 Lower Body Dressing (QC): 4 On/Off Footwear: 5 Toileting Hygiene (QC): 4 Toilet Transfer (QC): 4 Other Treatment Pt ambulated to therapy gym to complete B UE strengthening to increase strength and activity tolerance for daily functional tasks. [place] exercises in supine, 6 sets 5 reps. Pt independent with supine <--> sit EOB. After therapy, pt sitting in recliner with call light/phone in reach. All needs met in room. OT Short Term Goals Short Term Goals Time Frame: October 15, 2020 Oral hygiene: 5 Shower/bathe self: 5 Upper body dressin Lower body dressin Putting on/taking off footwear: 5 OT Tablet Repair Goals [facility] Goals Time Frame: Oct 26, 2020 Eating (QC): 6 Oral Hygiene (QC): 6 Toileting Hygiene (QC): 6 Shower/Bathe Self (QC): 6 Upper Body Dressing (QC): 6 Lower Body Dressing (QC): 6 On/Off Footwear (QC): 6 Additional Goals: 1-Demonstrate ADL Tasks, 2-Verbalize Understanding, 3- ImproveStrength/Neri 1=Demonstrate adherence to instructed precautions during ADL tasks. 2=Patient will verbalize/demonstrate understanding of assistive devices/modifications for ADL. 3=Patient will improve strength/tolerance for activity to enable patient to perform ADL's. OT Education/Plan Problem List/Assessment Assessment: Decreased Activ Tolerance, Decreased UE Strength, Impaired Self- Care Skills, Restricted Funct UE ROM Discharge Recommendations Plan/Recommendations: Continue POC Treatment Plan/Plan of Care Patient would benefit from OT for education, treatment and training to promote independence in ADL's, mobility, safety and/or upper extremity function for ADL's. Plan of Care: ADL Retraining, Functional Mobility, Group Exercise/Act as Ind, UE Funct Exercise/Act Treatment Duration: Oct 26, 2020 Frequency: At least 5 of 7 days/Wk (IRF) Estimated Hrs Per Day: 1 hour per day Agreement: Yes Rehab Potential: Good Time/GCodes Start Time: 08:45 Stop Time: 10:15 Total Time Billed (hr/min): 90 Billed Treatment Time 1 visit-ADL 5 (70 min) EX 1 (20 min) GENO FERREIRA October 03, 2020 10:08
--- NOTE | 2020-10-03 12:12 | Physical Therapy Daily Note ---
PT Daily Note-Current Subjective Pt sitting in recliner upon arrival. Pt agrees to PT. Pt reports feeling better but still fatigued. Pain Location: No Pain Reported Mental Status Patient Orientation: Person, Place, Time, Situation Transfers SCALE: Activities may be completed with or without assistive devices. 4-Hmonlgcnoc-ywmjzml completes the activity by him/herself with no assistance from a helper. 5-Set-up or Clean-up Assistance-helper sets up or cleans up; patient completes activity. [place] assists only prior to or following the activity. 4-Supervision or Touching Assistance-helper provides verbal cues and/or touching/steadying and/or contact guard assistance as patient completes activity. Assistance may be provided throughout the activity or intermittently. 3-Partial/Moderate Assistance-helper does LESS THAN HALF the effort. [place] lifts, holds or supports trunk or limbs, but provides less than half the effort. 2-Substantial/Maximal Assistance-helper does MORE THAN HALF the effort. [place] lifts or holds trunk or limbs and provides more than half the effort. 1-Ppxrpiyij-zcgxoy does ALL the effort. Patient does none of the effort to complete the activity. Or, the assistance of 2 or more helpers is required for the patient to complete the activity. If activity was not attempted, code reason: 7-Patient Refused. 9-Not Applicable-not attempted and the patient did not perform the activity before the current illness, exacerbation or injury. 10-Not Attempted due to Environmental Limitations-(lack of equipment, weather restraints, etc.). 88-Not Attempted due to Medical Conditions or Safety Concerns. Sit to Stand (QC): 5 Weight Bearing Full Weight Bearing Full Weight Bearing Gait Training Does the Patient Walk?: Yes Distance: 125' x2 Walk 10 feet (QC): 5 Walk 50 ft with 2 Turns(QC): 5 Walk 150 ft (QC): 5 Gait Persons Needed: 1 Gait Assistive Device: FWW Wheelchair Training Does the Pt Use a Wheelchair?: No Stair Training Stair Training: Handrails/: 2 handrails #of Steps: 4 1 Step (curb) (QC): 5 4 Steps (QC): 5 Stairs: Pattern: Step to Pt WB through UE a lot with steps. Exercises Standing: Hamstring curls, 3 way Ex=Flex, Abd, Ext, Marching, Mini squats, Sit to Stand, Weight shifts Standing Reps: 15 Treatments TF to standing and declines needing BR. Amb. in hallway and takes RB before completing Standing Ex at //bars. Pt takes RB as needed during EX. Pt amb. in hallway and returns to room, resting in recliner with all needs met & call light in hand. Assessment Current Status: Good Progress Pt takes frequent RB due to diminished activity tolerance. PT Short Term Goals Short Term Goals Time Frame: October 08, 2020 Sit to lyin Lying to sitting on side of be: 4 Sit to stand: 4 Walk 150 feet: 4 PT Mcfp Goals Activity Aide Goals PT Mcfp Goals Time Frame: October 19, 2020 Roll Left & Right (QC): 6 Sit to Lying (QC): 6 Lying-Sitting on Side/Bed(QC): 6 Sit to Stand (QC): 6 Chair/Rxl-uf-Sivfs Xfer(QC): 6 Toilet Transfer (QC): 6 Car Transfer (QC): 6 Does the Patient Walk: Yes Walk 10 feet (QC): 6 Walk 50ft with 2 Turns (QC): 6 Walk 150 ft (QC): 6 Walking 10ft on Uneven Surface: 6 1 Step (curb) (QC): 6 4 Steps (QC): 6 12 Steps (QC): 4 Picking up an Object (QC): 4 Does the Pt use WC or Scooter?: No Wheel 50 feet with 2 turns (QC: 9 Wheel 150 feet: 9 PT Plan Problem List Problem List: Activity Tolerance Treatment/Plan Treatment Plan: Continue Plan of Care Treatment Plan: Bed Mobility, Education, Functional Activity Neri, Functional Strength, Group Therapy, Gait, Safety, Therapeutic Exercise, Transfers Treatment Duration: October 19, 2020 Frequency: At least 5 of 7 days/Wk (IRF) Estimated Hrs Per Day: 1.5 hours per day Patient and/or Family Agrees t: Yes Safety Risks/Education Patient Education: Correct Positioning Teaching Recipient: Patient Teaching Methods: Discussion Response to Teaching: Verbalize Understanding Time/GCodes Time In: 1115 Time Out: 1215 Total Billed Treatment Time: 60 Total Billed Treatment 1, FA (15m), GT (15m) & EX x2 (30m) STEFAN SIFUENTES [employer] October 03, 2020 12:12
--- NOTE | 2020-10-03 12:14 | Consultation-Cardiology ---
HPI-Cardiology Cardiology Consultation Date of Consultation 10/03/20 Date of Admission Time Seen by Provider: 09:00 Indication: CAD HPI Patient is a 54 y/o male with history of CAD, HTN, COPD/RIAZ. Transferred for [place] to [facility], s/p Acute respiratory failure, feeling well at this time. Reports generalized weakness and fatigue. Occasional episode of chest pain, Denies any dyspnea, dizziness or lightheadedness. Home Medications & Allergies Allergies: Coded Allergies: No Known Drug Allergies (Unverified , 12/29/19) Home Medication List Reviewed: Yes FRD-Piyoou-Ayozfs Hx Patient Social History Marital Status: Employed/Student: unemployed Smoking Status: Never a Smoker Type Used: Smokeless Tobacco 2nd Hand Smoke Exposure: No Recent Hopitalizations: No Have you traveled recently?: No Alcohol Use?: Yes Immunizations Up To Date Tetanus Booster (TDap): Unknown Date of Pneumonia Vaccine: Mar 21, 2018 Date of Influenza Vaccine: Feb 29, 2020 Family Medical History Significant Family History: Cancer, Diabetes, Hypertension, Stroke Family History: Abdominal aortic aneurysm 09 BROTHER Cancer 03 MOTHER Cancer of colon 03 MOTHER 09 SISTER 19 MOTHER FH: COPD (chronic obstructive pulmonary disease) 19 FATHER FH: leukemia 09 SISTER 19 MOTHER FHx: stroke 19 FATHER Family history: Diabetes mellitus 09 BROTHER 09 SISTER 09 SISTER 09 SISTER Family history: Gastrointestinal disease 03 MOTHER 09 BROTHER Review of Systems-General Review of Systems Constitutional: see HPI, malaise, weakness EENTM: see HPI, no symptoms reported Respiratory: No cough, No orthopnea; short of breath Cardiovascular: see HPI, chest pain Gastrointestinal: no symptoms reported Musculoskeletal: back pain, muscle pain, neck pain Skin: no symptoms reported Psychiatric/Neurological: Anxiety, Depressed All Other Systems Reviewed Negative Unless Noted: Yes Reviewed Test Results Reviewed Test Results Lab Laboratory Tests 10/02/20 15:20: Glucometer 189H 10/02/20 20:11: Glucometer 198H 10/03/20 05:24: Glucometer 155H 10/03/20 11:01: Glucometer 161H Physical Exam Physical Exam Vital Signs Vital Signs - First Documented 10/01/20 11:30 Temp 36.5 Pulse 101 Resp 20 B/P (MAP) 139/78 (98) Pulse Ox 96 O2 Delivery Room Air Capillary Refill : Height, Weight, BMI Height: 5'11.00" Weight: 260lbs. 8.0oz. 117.625660gc; 36.88 BMI Method:Stated General Appearance: No Apparent Distress, WD/WN, Chronically ill, Obese Eyes: Bilateral Eye Normal Inspection, Bilateral Eye PERRL HEENT: PERRL/EOMI, Normal ENT Inspection, Pharynx Normal Neck: Full Range of Motion, Normal Inspection, Non Tender, Supple, Carotid Bruit Respiratory: Chest Non Tender, Lungs Clear, No Accessory Muscle Use, No Respiratory Distress, Decreased Breath Sounds Cardiovascular: Regular Rate, Rhythm, No Gallop, No JVD, No Murmur, Normal Peripheral Pulses Gastrointestinal: Normal Bowel Sounds, No Organomegaly, No Pulsatile Mass, Non Tender, Soft Back: Normal Inspection, No CVA Tenderness, No Vertebral Tenderness Extremity: Normal Capillary Refill, Normal Inspection, Normal Range of Motion, Non Tender, No Calf Tenderness, Pedal Edema Neurologic/Psychiatric: Alert, Oriented x3, No Motor/Sensory Deficits, 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 Generalized debility/weakness, continue with PT/OT Chest pain, history of chronic stable angina. Continues to have occasional episode of chest pain. Coronary artery disease, - patient had non-ST elevation myocardial infarction, underwent cardiac catheterization on April 11, 2019 revealing subtotal occlusion with diffuse ectasia in the distal right coronary artery, complex intervention requiring gu mary liner and multiple balloons, then deployment of Maday 423 mm stent with excellent results. Proximal RCA has diffuse ectasia with 50 percent stenosis, distal right PDA subtotally occluded, fairly small artery, will be treated medically. Severe stenosis at the distal circumflex artery with long lesion involving the obtuse marginal branch, proper circumflex and AV groove branch, all arteries are less than 2 mm in diameter. 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 Mild to moderate ectasia in LAD with mild to moderate disease diffusely, nonobstructive disease. Underwent cardiac catheterization on May 03, [address] Cartagena with 2.2532 mm Promus drug-eluting stent to the circumflex artery. Underwent repeat cardiac catheterization on May 21, 2019 revealing multivessel CAD with FFR confirmation of pvw-vrqb-jppnrqqe disease in RCA and flow-limiting disease in mid LAD. Pbx-kiij-ijgwprby in proximal LAD. [id number] Synergy stent to mid LAD. - Cardiac catheterization done June 10, 2019 with 2.0x 12mm drug eluting [place] stent to first diagonal. - Cardiac cath on July 18, 2020 revealed moderate to severe ostial ramus intermedius branch that is small to moderate in size. Distal disease, medical therapy is recommended, tortuous LAD with moderate disease in a small diagonal artery that could be responsible for the chest pain, diffuse ectasia in the right coronary artery with patent stent, small vessel disease distally, small vessel disease in the circumflex artery distally, normal left ventricular end- diastolic pressure. Hypertension, controlled on current medications, continue to monitor. Hyperlipidemia, continue pitavastatin, fenofibrate. Repatha as outpatient. DM2, insulin dependent RIAZ, has been noncompliant with CPAP and BiPAP in past, currently tolerating BiPAP H/O right hip/back pain, Tobaccoism, recommend complete cessation. Extensive family history of heart disease and stroke. Thank you for allowing us to participate in the management of Mr. Negron. This is Shi Godfrey PA-C, as a scribe for Dr. Núñez Patient was seen and evaluated with Shi, feeling better 54 years old gentleman with respiratory failure, transferred back for rehab, having generalized weakness and myopathy Receiving physical therapy Cardiac status was discussed above, clinically stable Continue to monitor blood pressure and lipids SHI CHRISTINA October 03, 2020 12:14 pm ROSS NÚÑEZ MD October 03, 2020 12:59 pm
--- NOTE | 2020-10-03 14:25 | Physical Therapy Daily Note ---
PT Daily Note-Current Subjective Pt sitting in recliner upon arrival. Pt agrees to ambulating to increase activity tolerance. Pain Location: No Pain Reported Mental Status Patient Orientation: Person, Place, Time, Situation Transfers SCALE: Activities may be completed with or without assistive devices. 8-Mkdwltbhpl-ptxkaba completes the activity by him/herself with no assistance from a helper. 5-Set-up or Clean-up Assistance-helper sets up or cleans up; patient completes activity. [place] assists only prior to or following the activity. 4-Supervision or Touching Assistance-helper provides verbal cues and/or touching/steadying and/or contact guard assistance as patient completes activity. Assistance may be provided throughout the activity or intermittently. 3-Partial/Moderate Assistance-helper does LESS THAN HALF the effort. [place] lifts, holds or supports trunk or limbs, but provides less than half the effort. 2-Substantial/Maximal Assistance-helper does MORE THAN HALF the effort. [place] lifts or holds trunk or limbs and provides more than half the effort. 3-Snuozetwc-izvlyf does ALL the effort. Patient does none of the effort to complete the activity. Or, the assistance of 2 or more helpers is required for the patient to complete the activity. If activity was not attempted, code reason: 7-Patient Refused. 9-Not Applicable-not attempted and the patient did not perform the activity before the current illness, exacerbation or injury. 10-Not Attempted due to Environmental Limitations-(lack of equipment, weather restraints, etc.). 88-Not Attempted due to Medical Conditions or Safety Concerns. Sit to Stand (QC): 5 Weight Bearing Full Weight Bearing Full Weight Bearing Gait Training Does the Patient Walk?: Yes Distance: 100', 250', 150', 50' Walk 10 feet (QC): 5 Walk 50 ft with 2 Turns(QC): 5 Walk 150 ft (QC): 5 Gait Persons Needed: 1 Gait Assistive Device: FWW Wheelchair Training Does the Pt Use a Wheelchair?: No Treatments TF to standing and amb. in hallway. Pt takes frequent RB but greatly increased distance of ambulation. Pt returns to room at end of tx to rest in recliner. All needs met, call light in hand. Assessment Current Status: Good Progress Pt is increasing distance of ambulation but still needs rest breaks due to fatigue. PT Short Term Goals Short Term Goals Time Frame: October 08, 2020 Sit to lyin Lying to sitting on side of be: 4 Sit to stand: 4 Walk 150 feet: 4 PT Longterm Goals Teacher Adult Education Goals PT Teacher Adult Education Goals Time Frame: October 19, 2020 Roll Left & Right (QC): 6 Sit to Lying (QC): 6 Lying-Sitting on Side/Bed(QC): 6 Sit to Stand (QC): 6 Chair/Fhz-fh-Eqlma Xfer(QC): 6 Toilet Transfer (QC): 6 Car Transfer (QC): 6 Does the Patient Walk: Yes Walk 10 feet (QC): 6 Walk 50ft with 2 Turns (QC): 6 Walk 150 ft (QC): 6 Walking 10ft on Uneven Surface: 6 1 Step (curb) (QC): 6 4 Steps (QC): 6 12 Steps (QC): 4 Picking up an Object (QC): 4 Does the Pt use WC or Scooter?: No Wheel 50 feet with 2 turns (QC: 9 Wheel 150 feet: 9 PT Plan Problem List Problem List: Activity Tolerance Treatment/Plan Treatment Plan: Continue Plan of Care Treatment Plan: Bed Mobility, Education, Functional Activity Neri, Functional Strength, Group Therapy, Gait, Safety, Therapeutic Exercise, Transfers Treatment Duration: October 19, 2020 Frequency: At least 5 of 7 days/Wk (IRF) Estimated Hrs Per Day: 1.5 hours per day Patient and/or Family Agrees t: Yes Time/GCodes Time In: 1330 Time Out: 1400 Total Billed Treatment Time: 30 Total Billed Treatment 1, GT x2 (30m) STEFAN SIFUENTES RUBBER CUTTER October 03, 2020 14:25
[2020-10-03] MEDS: TAMSULOSIN 0.4 MG (FLOMAX) CAP PO SCH (17:38)
[2020-10-03 20:20] VITALS: BP 121/79
[2020-10-03] MEDS: HYDROcodone/APAP 7.5 MG/325 MG (LORTAB, LORCET PLUS) TABLET PO PRN (21:13)
[2020-10-04] MEDS: inSUlin ASPART (NovoLOG) 1 UNIT/0.01 ML (CHARGE PER UNIT) SC SCH ×4 (06:26→21:41)
[2020-10-04] MEDS: inSUlin (REGULAR) HUMAN 1 UNIT/0.01 ML (CHARGE PER UNIT) SC SCH ×4 (07:01→21:40)
[2020-10-04] MEDS: CATHETER FLUSH 10 ML SYR IV SCH ×3 (07:04→21:42)
[2020-10-04 08:00] VITALS: BP 117/80
--- NOTE | 2020-10-04 08:29 | Cardiology Progress Note ---
Subjective Date Seen by Provider: October 04, 2020 Time Seen by Provider: 08:28 Subjective/Events-last exam Patient sitting up in chair, denies any chest pain, weakness improving. Review of Systems General: No Chills, No Night Sweats; Fatigue; No Malaise, No Appetite, No Other HEENT: No Head Aches, No Visual Changes, No Eye Pain, No Ear Pain, No Dysphasia, No Sinus Congestion, No Post Nasal Drip, No Sore Throat, No Other Pulmonary: No Dyspnea, No Cough, No Pleuritic Chest Pain, No Other Cardiovascular: No: Chest Pain, Palpitations, Orthopnea, Paroxysmal Noc. Dyspnea, Edema, Lt Headedness, Other Objective-Cardiology Exam Last Set of Vital Signs Vital Signs 10/03/20 20:20 Temp 37.2 Pulse 94 Resp 20 B/P (MAP) 121/79 (93) Pulse Ox 94 O2 Delivery Room Air Capillary Refill : General: Alert, Oriented X3, Cooperative HEENT: Atraumatic, PERRLA Neck: Supple, No JVD, No Thyromegaly Lungs: Clear to Auscultation, Normal Air Movement Heart: Regular Rate Abdomen: Normal Bowel Sounds, Soft Extremities: No Edema Skin: No Rashes, No Significant Lesion Neuro: Cranial Nerves 3-12 NL Psych/Mental Status: Mental Status NL, Mood NL A/P-Cardiology Admission Diagnosis Chest pain CAD HTN HLP Assessment/Plan s/p Acute respiratory failure, multifactorial, probably due to respiratory suppression from CO2 narcosis and pneumonia, was on ventilator for 8 days, transferred to [place], improved. Generalized debility/weakness, continue with PT/OT Chest pain, history of chronic stable angina. Continues to have occasional episode of chest pain. Coronary artery disease, - patient had non-ST elevation myocardial infarction, underwent cardiac catheterization on April 11, 2019 revealing subtotal occlusion with diffuse ectasia in the distal right coronary artery, complex intervention requiring guide liner and multiple balloons, then deployment of Maday 423 mm stent with excellent results. Proximal RCA has diffuse ectasia with 50 percent stenosis, distal right PDA subtotally occluded, fairly small artery, will be treated medically. Severe stenosis at the distal circumflex artery with long lesion involving the obtuse marginal branch, proper circumflex and AV groove branch, all arteries are less than 2 mm in diameter. 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 Mild to moderate ectasia in LAD with mild to moderate disease diffusely, nonobstructive disease. Underwent cardiac catheterization on May 03, [address] Cartagena with 2.2532 mm Promus drug-eluting stent to the circumflex artery. Underwent repeat cardiac catheterization on May 21, 2019 revealing multivessel CAD with FFR confirmation of ppy-waic-ejymddrl disease in RCA and flow-limiting disease in mid LAD. Jnw-colr-uhhgxvtm in proximal LAD. [id number] Synergy stent to mid LAD. - Cardiac catheterization done June 10, 2019 with 2.0x 12mm drug eluting [place] stent to first diagonal. - Cardiac cath on July 18, 2020 revealed moderate to severe ostial ramus intermedius branch that is small to moderate in size. Distal disease, medical therapy is recommended, tortuous LAD with moderate disease in a small diagonal artery that could be responsible for the chest pain, diffuse ectasia in the right coronary artery with patent stent, small vessel disease distally, small vessel disease in the circumflex artery distally, normal left ventricular end- diastolic pressure. Hypertension, controlled on current medications, continue to monitor. Hyperlipidemia, continue pitavastatin, fenofibrate. Repatha as outpatient. DM2, insulin dependent RIAZ, has been noncompliant with CPAP and BiPAP in past, currently tolerating BiPAP H/O right hip/back pain, Tobaccoism, recommend complete cessation. Extensive family history of heart disease and stroke. Patient was seen and evaluated with Shi, examination performed, management plan was discussed, agree with the current scribed note, I made few changes to the note using Italic font Patient was seen and evaluated, feeling better, reporting improvement On examination lungs were clear to auscultation, heart is regular Continue on current medication monitor blood pressure and lipids, no changes are recommended Supervisory-Addendum Brief Supervisory Addendum Participated in pt care: history, MDM, physical Personally performed: exam, history, MDM Care discussed with: SHI YUSUF October 04, 2020 08:29 ROSS RODRÍGUEZ MD October 04, 2020 08:53
[2020-10-04] MEDS: polyethylene glycoL POWDER 17 GM (MIRALAX) PACK PO SCH ×2 (09:34→22:06)
[2020-10-04] MEDS: DOCUSATE SODIUM 100 MG (COLACE) CAP PO SCH ×2 (09:35→21:41)
[2020-10-04] MEDS: SENNA W/DOCUSATE (SENOKOT S) TABLET PO SCH ×2 (09:35→21:41)
[2020-10-04] MEDS: PRASUGREL 10 MG (EFFIENT) TABLET PO SCH (10:02)
[2020-10-04] MEDS: ENOXAPARIN 40 MG/0.4 ML (LOVENOX) SYR SQ SCH ×2 (10:02→21:41)
[2020-10-04] MEDS: ASPIRIN 81 MG CHEW (CHILDREN'S ASA) PO SCH (10:02)
[2020-10-04] MEDS: PANTOPRAZOLE 40 MG (PROTONIX) TAB PO SCH (10:02)
[2020-10-04] MEDS: DICLOFENAC 1% GEL 100 GM (VOLTAREN) TUBE TOP SCH ×3 (10:03→21:40)
--- NOTE | 2020-10-04 10:11 | Occupational Ther Daily Note ---
OT Current Status-Daily Note Subjective Pt alert, sitting in recliner. Pt agrees to therapy. No c/o pain at this time. Mental Status/Objective Patient Orientation: Person, Place, Time, Situation Attachments: IV (midline) ADL-Treatment Pt declined shower. Agrees to sponge bath. Pt ambulated to bathroom and transferred to toilet independently. Completed toileting (2x's) using FWW and grabbars, independently. Sat at sink to complete sponge bath and oral care independently. After set up, pt completed dressing independently. Therapy Code Descriptions/Definitions Functional [place] Measure: 0=Not Assessed/NA 4=Minimal Assistance 1=Total Assistance 5=Supervision or Setup 2=Maximal Assistance 6=Modified [place] 3=Moderate Assistance 7=Complete IndependenceSCALE: Activities may be completed with or without assistive devices. 9-Juthyrcuua-jaqjqsg completes the activity by him/herself with no assistance from a helper. 5-Set-up or Clean-up Assistance-helper sets up or cleans up; patient completes activity. [place] assists only prior to or following the activity. 4-Supervision or Touching Assistance-helper provides verbal cues and/or touching/steadying and/or contact guard assistance as patient completes activity. Assistance may be provided throughout the activity or intermittently. 3-Partial/Moderate Assistance-helper does LESS THAN HALF the effort. [place] lifts, holds or supports trunk or limbs, but provides less than half the effort. 2-Substantial/Maximal Assistance-helper does MORE THAN HALF the effort. [place] lifts or holds trunk or limbs and provides more than half the effort. 7-Unrtngyzw-viuvxo does ALL the effort. Patient does none of the effort to complete the activity. Or, the assistance of 2 or more helpers is required for the patient to complete the activity. If activity was not attempted, code reason: 7-Patient Refused. 9-Not Applicable-not attempted and the patient did not perform the activity be fore the current illness, exacerbation or injury. 10-Not Attempted due to Environmental Limitations-(lack of equipment, weather restraints, etc.). 88-Not Attempted due to Medical Conditions or Safety Concerns. Oral Hygiene (QC): 6 Upper Body Dressing (QC): 5 Lower Body Dressing (QC): 5 On/Off Footwear: 5 Toileting Hygiene (QC): 6 Toilet Transfer (QC): 6 Other Treatment Pt ambulated to therapy gym to complete arm bike for 15 min at 20 silverman resistance to increase strength and activity tolerance for daily functional tasks. Pt then requested to use bathroom. See above note. Pt then sat in recliner and completed 4 B UE medium resistance theraband exercises to increase strength and activity tolerance for daily functional tasks. Pt takes increased time to complete tasks due to multiple recovery breaks due to SOA. After therapy, pt sitting in recliner with call light/phone in reach. Nrsg in room. OT Short Term Goals Short Term Goals Time Frame: October 15, 2020 Oral hygiene: 5 Shower/bathe self: 5 Upper body dressin Lower body dressin Putting on/taking off footwear: 5 OT Computer Programmer Goals [facility] Goals Time Frame: Oct 26, 2020 Eating (QC): 6 Oral Hygiene (QC): 6 Toileting Hygiene (QC): 6 Shower/Bathe Self (QC): 6 Upper Body Dressing (QC): 6 Lower Body Dressing (QC): 6 On/Off Footwear (QC): 6 Additional Goals: 1-Demonstrate ADL Tasks, 2-Verbalize Understanding, 3-I mproveStrength/Neri 1=Demonstrate adherence to instructed precautions during ADL tasks. 2=Patient will verbalize/demonstrate understanding of assistive devices/modifications for ADL. 3=Patient will improve strength/tolerance for activity to enable patient to perform ADL's. OT Education/Plan Problem List/Assessment Assessment: Decreased Activ Tolerance, Decreased UE Strength, Impaired Self- Care Skills Discharge Recommendations Plan/Recommendations: Continue POC Treatment Plan/Plan of Care Patient would benefit from OT for education, treatment and training to promote independence in ADL's, mobility, safety and/or upper extremity function for ADL's. Plan of Care: ADL Retraining, Functional Mobility, Group Exercise/Act as Ind, UE Funct Exercise/Act Treatment Duration: Oct 26, 2020 Frequency: At least 5 of 7 days/Wk (IRF) Estimated Hrs Per Day: 1 hour per day Agreement: Yes Rehab Potential: Good Time/GCodes Start Time: 08:45 Stop Time: 10:15 Total Time Billed (hr/min): 90 Billed Treatment Time 1 visit-ADL 3 (45 min) EX 3 (45 min) GENO FERREIRA October 04, 2020 10:11
--- NOTE | 2020-10-04 11:10 | PM&R Progress Note ---
Subjective HPI/CC On Admission Date Seen by Provider: October 04, 2020 Time Seen by Provider: 11:15 Subjective/Events-last exam 10/04/20: Doing well Gaining strength BM+ Lovenox maintained Sugar and BP stable 10/03/20: Patient doing well Decreased appetite noted Flomax has helped him voiding BiPAP at night 10/02/20: Pt had a much better night Took a pain pill and Melatonin Baclofen will be ordered Has lost 70lbs since admission on 09/05/20 Pain pill with the Melatonin seemed to work well so we will continue that regimen Compression stockings with MASHA wraps over will be initiated for the edema Review of Systems General: Fatigue, Malaise Pulmonary: Dyspnea Objective Exam Vital Signs Vital Signs Date Time Temp Pulse Resp B/P (MAP) Pulse Ox O2 Delivery O2 Flow Rate FiO2 10/04/20 20:38 36.7 88 18 131/81 (98) 95 Room Air Capillary Refill : General Appearance: No Apparent Distress, WD/WN, Chronically ill, Obese HEENT: PERRL/EOMI, Normal ENT Inspection, Pharynx Normal Neck: Full Range of Motion, Normal Inspection, Non Tender, Supple, Carotid Bruit Respiratory: Chest Non Tender, Lungs Clear, No Accessory Muscle Use, No Respiratory Distress, Decreased Breath Sounds Cardiovascular: Regular Rate, Rhythm, No Gallop, No JVD, No Murmur, Normal Peripheral Pulses Gastrointestinal: Normal Bowel Sounds, No Organomegaly, No Pulsatile Mass, Non Tender, Soft Back: Normal Inspection, No CVA Tenderness, No Vertebral Tenderness Extremity: Normal Capillary Refill, Normal Inspection, Normal Range of Motion, Non Tender, No Calf Tenderness, Pedal Edema Neurologic/Psychiatric: Alert, Oriented x3, No Motor/Sensory Deficits, stock ranch supervisor II- XII Norm as Tested, Abnormal Gait, Depressed Affect, Motor Weakness (generalized 4/5) Skin: Normal Color, Warm/Dry Lymphatic: No Adenopathy Results/Procedures Lab Patient resulted labs reviewed. FIM Transfers Therapy Code Descriptions/Definitions Functional [place] Measure: 0=Not Assessed/NA 4=Minimal Assistance 1=Total Assistance 5=Supervision or Setup 2=Maximal Assistance 6=Modified [place] 3=Moderate Assistance 7=Complete IndependenceSCALE: Activities may be completed with or without assistive devices. 0-Dhfxddzatj-ozdgors completes the activity by him/herself with no assistance from a helper. 5-Set-up or Clean-up Assistance-helper sets up or cleans up; patient completes activity. [place] assists only prior to or following the activity. 4-Supervision or Touching Assistance-helper provides verbal cues and/or touching/steadying and/or contact guard assistance as patient completes activity. Assistance may be provided throughout the activity or intermittently. 3-Partial/Moderate Assistance-helper does LESS THAN HALF the effort. [place] lifts, holds or supports trunk or limbs, but provides less than half the effort. 2-Substantial/Maximal Assistance-helper does MORE THAN HALF the effort. [place] lifts or holds trunk or limbs and provides more than half the effort. 0-Ngbrcswaq-foiypb does ALL the effort. Patient does none of the effort to complete the activity. Or, the assistance of 2 or more helpers is required for the patient to complete the activity. If activity was not attempted, code reason: 7-Patient Refused. 9-Not Applicable-not attempted and the patient did not perform the activity before the current illness, exacerbation or injury. 10-Not Attempted due to Environmental Limitations-(lack of equipment, weather restraints, etc.). 88-Not Attempted due to Medical Conditions or Safety Concerns. Roll Left to Right (QC): 4 Sit to Lying (QC): 4 (takes extra effort and uses the bedrail) Sit to Stand (QC): 5 Chair/Sei-ch-Qrrle Xfer(QC): 4 (CGA for safety. ) Car Transfer (QC): 3 Gait Training Does the Patient Walk?: Yes Distance: 100', 250', 150', 50' Walk 10 feet (QC): 5 Walk 50 ft with 2 Turns(QC): 5 Walk 150 ft (QC): 5 Walking 10ft/uneven surface-QC: 3 Gait Persons Needed: 1 Gait Assistive Device: FWW Wheelchair Training Does the Pt Use a Wheelchair?: No Wheel 50 ft with 2 turns (QC): 9 Wheel 150 ft (QC): 9 Stair Training Stair Training: Handrails/: 2 handrails #of Steps: 4 1 Step (curb) (QC): 5 4 Steps (QC): 5 12 Steps (QC): 88 Stairs: Pattern: Step to Balance Picking up an Object (QC): 88 ADL-Treatment Eating (QC): 6 Oral Hygiene (QC): 6 Shower/Bathe Self (QC): 4 Upper Body Dressing (QC): 5 Lower Body Dressing (QC): 5 On/Off Footwear (QC): 5 Toileting Hygiene (QC): 6 Toilet Transfer (QC): 6 Assessment/Plan Assessment and Plan Assess & Plan/Chief Complaint Assessment: COPD myopathy Severe RIAZ previous untreated causing acute respiratory failure 09/05/20 s/p vent dependence now wearing/tolerating home biPAP machine DM with severe insulin resistance HTN HLP CAD previous stents Angina CRI Spine disease Anemia hgb 11 Thrombocytopenia Plan: IRF protocol Monitor diabetes requires extreme amount of insulin Home meds BiPAP 10/02/20: Monitor O2 IRF therapies Monitor sugar 10/03/20: Monitor pain BiPAP 10/04/20: Monitor O2 Lovenox Sugar and BP management (1) Acute on chronic respiratory failure with hypoxia and hypercapnia (2) Urinary retention (3) Edema (4) Stented coronary artery (5) CAD (coronary artery disease) Status: Acute (6) RIAZ (obstructive sleep apnea) (7) Chronic pain Status: Chronic (8) Renal insufficiency (9) Anxiety Status: Acute (10) Angina pectoris syndrome (11) Diabetes mellitus, insulin dependent (IDDM), uncontrolled Status: Acute IRINEO GONSALEZ DO October 04, 2020 11:10
--- NOTE | 2020-10-04 12:25 | Physical Therapy Daily Note ---
PT Daily Note-Current Subjective Pt sitting in recliner upon arrival. Pt agrees to PT. Pain Numeric Pain Scale: 3 Location Body Site: Back Pain Description: Ache, Chronic Mental Status Patient Orientation: Person, Place, Time, Situation Transfers SCALE: Activities may be completed with or without assistive devices. 3-Hgaycthffj-edycqfd completes the activity by him/herself with no assistance from a helper. 5-Set-up or Clean-up Assistance-helper sets up or cleans up; patient completes activity. [place] assists only prior to or following the activity. 4-Supervision or Touching Assistance-helper provides verbal cues and/or touching/steadying and/or contact guard assistance as patient completes activity. Assistance may be provided throughout the activity or intermittently. 3-Partial/Moderate Assistance-helper does LESS THAN HALF the effort. [place] lifts, holds or supports trunk or limbs, but provides less than half the effort. 2-Substantial/Maximal Assistance-helper does MORE THAN HALF the effort. [place] lifts or holds trunk or limbs and provides more than half the effort. 9-Zjtkipqol-nsgzru does ALL the effort. Patient does none of the effort to complete the activity. Or, the assistance of 2 or more helpers is required for the patient to complete the activity. If activity was not attempted, code reason: 7-Patient Refused. 9-Not Applicable-not attempted and the patient did not perform the activity before the current illness, exacerbation or injury. 10-Not Attempted due to Environmental Limitations-(lack of equipment, weather restraints, etc.). 88-Not Attempted due to Medical Conditions or Safety Concerns. Sit to Stand (QC): 5 Weight Bearing Full Weight Bearing Full Weight Bearing Gait Training Does the Patient Walk?: Yes Distance: 250' x2 Walk 10 feet (QC): 5 Walk 50 ft with 2 Turns(QC): 5 Walk 150 ft (QC): 5 Gait Persons Needed: 1 Gait Assistive Device: FWW Wheelchair Training Does the Pt Use a Wheelchair?: No Stair Training Stair Training: Handrails/: 2 handrails #of Steps: 4 1 Step (curb) (QC): 5 4 Steps (QC): 5 Stairs: Pattern: Step to Exercises Seated Therapy Exercises: Ankle pumps, Long arc quads, Hip flexion, Glut set Seated Reps: 15 Treatments TF to standing, declines needing to use BR. Amb. in hallway with RB during walk. Pt completes Seated Ex and finishes walk. Pt completes 1 set of 4 steps then quick RB. Pt returns to room to rest and eat lunch at end of tx. All needs met, call light in hand. Assessment Current Status: Good Progress Pt is demonstrating improved activity tolerance and decreased rest breaks. PT Short Term Goals Short Term Goals Time Frame: October 08, 2020 Sit to lyin Lying to sitting on side of be: 4 Sit to stand: 4 Walk 150 feet: 4 PT Metal Molder Goals Fdc Goals PT Metal Molder Goals Time Frame: October 19, 2020 Roll Left & Right (QC): 6 Sit to Lying (QC): 6 Lying-Sitting on Side/Bed(QC): 6 Sit to Stand (QC): 6 Chair/Eot-kh-Okraq Xfer(QC): 6 Toilet Transfer (QC): 6 Car Transfer (QC): 6 Does the Patient Walk: Yes Walk 10 feet (QC): 6 Walk 50ft with 2 Turns (QC): 6 Walk 150 ft (QC): 6 Walking 10ft on Uneven Surface: 6 1 Step (curb) (QC): 6 4 Steps (QC): 6 12 Steps (QC): 4 Picking up an Object (QC): 4 Does the Pt use WC or Scooter?: No Wheel 50 feet with 2 turns (QC: 9 Wheel 150 feet: 9 PT Plan Problem List Problem List: Activity Tolerance Treatment/Plan Treatment Plan: Continue Plan of Care Treatment Plan: Bed Mobility, Education, Functional Activity Neri, Functional Strength, Group Therapy, Gait, Safety, Therapeutic Exercise, Transfers Treatment Duration: October 19, 2020 Frequency: At least 5 of 7 days/Wk (IRF) Estimated Hrs Per Day: 1.5 hours per day Patient and/or Family Agrees t: Yes Safety Risks/Education Patient Education: Gait Training Teaching Recipient: Patient Teaching Methods: Discussion Response to Teaching: Verbalize Understanding Time/GCodes Time In: 1115 Time Out: 1215 Total Billed Treatment Time: 60 Total Billed Treatment 1, FA (15m), GT x2 (30m) & EX (15m) STEFAN SIFUENTES ARTS AND CRAFTS INSTRUCTOR October 04, 2020 12:25
[2020-10-04] MEDS: BACLOFEN 10 MG (LIORESAL) TAB PO PRN ×2 (14:13→21:48)
--- NOTE | 2020-10-04 14:32 | Physical Therapy Daily Note ---
PT Daily Note-Current Subjective Pt sitting in recliner upon arrival. Pt agrees to PT. Pt asks to try a less restrictive AD. Pain Numeric Pain Scale: 3 Location Body Site: Back Pain Description: Chronic Mental Status Patient Orientation: Person, Place, Time, Situation Transfers SCALE: Activities may be completed with or without assistive devices. 1-Nfzhwivrdd-osttujz completes the activity by him/herself with no assistance from a helper. 5-Set-up or Clean-up Assistance-helper sets up or cleans up; patient completes activity. [place] assists only prior to or following the activity. 4-Supervision or Touching Assistance-helper provides verbal cues and/or touching/steadying and/or contact guard assistance as patient completes activity. Assistance may be provided throughout the activity or intermittently. 3-Partial/Moderate Assistance-helper does LESS THAN HALF the effort. [place] lifts, holds or supports trunk or limbs, but provides less than half the effort. 2-Substantial/Maximal Assistance-helper does MORE THAN HALF the effort. [place] lifts or holds trunk or limbs and provides more than half the effort. 8-Ghdewptjn-pdosgh does ALL the effort. Patient does none of the effort to co mplete the activity. Or, the assistance of 2 or more helpers is required for the patient to complete the activity. If activity was not attempted, code reason: 7-Patient Refused. 9-Not Applicable-not attempted and the patient did not perform the activity before the current illness, exacerbation or injury. 10-Not Attempted due to Environmental Limitations-(lack of equipment, weather restraints, etc.). 88-Not Attempted due to Medical Conditions or Safety Concerns. Sit to Stand (QC): 5 Weight Bearing Full Weight Bearing Full Weight Bearing Gait Training Does the Patient Walk?: Yes Distance: 250' x2 Walk 10 feet (QC): 5 Walk 50 ft with 2 Turns(QC): 5 Walk 150 ft (QC): 5 Gait Persons Needed: 1 Gait Assistive Device: FWW Attempts Large Base Quad Cane (LBQC) for short distance but pt finds it hard to stabilize and returns to FWW. PT will continue to try to practice w/LBQC as it is harder than FWW but pt is still in control during ambulation. Wheelchair Training Does the Pt Use a Wheelchair?: No Treatments TF to standing and amb. in hallway. Pt takes RB during tx before amb. again. Pt amb.in hallway before returning to room to rest in recliner at end of tx. All needs met, call light in hand. Assessment Current Status: Good Progress Pt's activity tolerance is improving, decreased need for rest breaks. PT Short Term Goals Short Term Goals Time Frame: October 08, 2020 Sit to lyin Lying to sitting on side of be: 4 Sit to stand: 4 Walk 150 feet: 4 PT Spanish Instructor Goals Usp Goals PT Usp Goals Time Frame: October 19, 2020 Roll Left & Right (QC): 6 Sit to Lying (QC): 6 Lying-Sitting on Side/Bed(QC): 6 Sit to Stand (QC): 6 Chair/Frx-en-Xvhws Xfer(QC): 6 Toilet Transfer (QC): 6 Car Transfer (QC): 6 Does the Patient Walk: Yes Walk 10 feet (QC): 6 Walk 50ft with 2 Turns (QC): 6 Walk 150 ft (QC): 6 Walking 10ft on Uneven Surface: 6 1 Step (curb) (QC): 6 4 Steps (QC): 6 12 Steps (QC): 4 Picking up an Object (QC): 4 Does the Pt use WC or Scooter?: No Wheel 50 feet with 2 turns (QC: 9 Wheel 150 feet: 9 PT Plan Problem List Problem List: Activity Tolerance Treatment/Plan Treatment Plan: Continue Plan of Care Treatment Plan: Bed Mobility, Education, Functional Activity Neri, Functional Strength, Group Therapy, Gait, Safety, Therapeutic Exercise, Transfers Treatment Duration: October 19, 2020 Frequency: At least 5 of 7 days/Wk (IRF) Estimated Hrs Per Day: 1.5 hours per day Patient and/or Family Agrees t: Yes Safety Risks/Education Patient Education: Gait Training, Correct Positioning Teaching Recipient: Patient Teaching Methods: Demonstration, Discussion Response to Teaching: Verbalize Understanding, Return Demonstration Time/GCodes Time In: 1330 Time Out: 1400 Total Billed Treatment Time: 30 Total Billed Treatment 1, GT x2 (30m) STEFAN SIFUENTES GRADUATING MACHINE OPERATOR October 04, 2020 14:32
[2020-10-04] MEDS: TAMSULOSIN 0.4 MG (FLOMAX) CAP PO SCH (17:08)
[2020-10-04 20:38] VITALS: BP 131/81
[2020-10-04] MEDS: ACETAMINOPHEN 325 MG TABLET PO PRN (21:49)
[2020-10-05] MEDS: inSUlin (REGULAR) HUMAN 1 UNIT/0.01 ML (CHARGE PER UNIT) SC SCH ×4 (06:34→20:25)
[2020-10-05] MEDS: CATHETER FLUSH 10 ML SYR IV SCH ×3 (06:34→22:12)
[2020-10-05] MEDS: inSUlin ASPART (NovoLOG) 1 UNIT/0.01 ML (CHARGE PER UNIT) SC SCH ×4 (06:37→20:20)
[2020-10-05 08:00] VITALS: BP 132/72
[2020-10-05] MEDS: PANTOPRAZOLE 40 MG (PROTONIX) TAB PO SCH (09:00)
[2020-10-05] MEDS: PRASUGREL 10 MG (EFFIENT) TABLET PO SCH (09:00)
[2020-10-05] MEDS: ASPIRIN 81 MG CHEW (CHILDREN'S ASA) PO SCH (09:00)
[2020-10-05] MEDS: ENOXAPARIN 40 MG/0.4 ML (LOVENOX) SYR SQ SCH ×2 (09:01→20:24)
[2020-10-05] MEDS: DICLOFENAC 1% GEL 100 GM (VOLTAREN) TUBE TOP SCH ×3 (09:01→20:30)
--- NOTE | 2020-10-05 10:28 | Physical Therapy Daily Note ---
PT Daily Note-Current Subjective Agrees to PT. Reports he enjoys being outside. No complaints. Mental Status Patient Orientation: Person, Place, Time, Situation Transfers SCALE: Activities may be completed with or without assistive devices. 1-Pmpowfxdjn-nqmdabq completes the activity by him/herself with no assistance from a helper. 5-Set-up or Clean-up Assistance-helper sets up or cleans up; patient completes activity. [place] assists only prior to or following the activity. 4-Supervision or Touching Assistance-helper provides verbal cues and/or touching/steadying and/or contact guard assistance as patient completes activity. Assistance may be provided throughout the activity or intermittently. 3-Partial/Moderate Assistance-helper does LESS THAN HALF the effort. [place] l ifts, holds or supports trunk or limbs, but provides less than half the effort. 2-Substantial/Maximal Assistance-helper does MORE THAN HALF the effort. [place] lifts or holds trunk or limbs and provides more than half the effort. 0-Gayhrrpmg-lyjhld does ALL the effort. Patient does none of the effort to complete the activity. Or, the assistance of 2 or more helpers is required for t he patient to complete the activity. If activity was not attempted, code reason: 7-Patient Refused. 9-Not Applicable-not attempted and the patient did not perform the activity before the current illness, exacerbation or injury. 10-Not Attempted due to Environmental Limitations-(lack of equipment, weather restraints, etc.). 88-Not Attempted due to Medical Conditions or Safety Concerns. Sit to Stand (QC): 4 Chair/Odd-sk-Lvsor Xfer(QC): 4 SBA with all transfers without touch assist needed. Weight Bearing Full Weight Bearing Full Weight Bearing Gait Training Does the Patient Walk?: Yes Walk 10 feet (QC): 4 Walk 50 ft with 2 Turns(QC): 4 Walk 150 ft (QC): 4 Walking 10ft/uneven surface-QC: 4 Gait Assistive Device: Cane Large Base Quad Multiple bouts of gait training with QC (wide base) on level surfaces, turns, uneven surface and slopes. Gait with SBA for safety but no touch assist required. Pt able to walk approx 150 ft before needing a rest break. In total, pt walked >500 ft this visit. Pt walked across a boardwalk, on cement slope and on the cement surface outdoors. Up/down 4 steps with B handrail with SBA. Multiple sit to stand transfers with SBA with correct hand placment and safety. Stair Training 4 Steps (QC): 4 ( B Handrail with SBA; reciprocal gait) Exercises NuStep Minutes: 15 NuStep Workload: 4 (LE functional strengthening to promote improved gait safety and distance; work to increase functional activity tolerance. ) Assessment Current Status: Good Progress Pt does become SOA with walking 150 ft ,but recovers quickly. Safe and steady gait and transfers. Progressing to use of QC well. PT Short Term Goals Short Term Goals Time Frame: October 08, 2020 Sit to lyin Lying to sitting on side of be: 4 Sit to stand: 4 (met) Walk 150 feet: 4 (met) PT [facility] Goals Box Toe Cementer Goals PT Box Toe Cementer Goals Time Frame: October 19, 2020 Roll Left & Right (QC): 6 Sit to Lying (QC): 6 Lying-Sitting on Side/Bed(QC): 6 Sit to Stand (QC): 6 Chair/Boa-nb-Yezmp Xfer(QC): 6 Toilet Transfer (QC): 6 Car Transfer (QC): 6 Does the Patient Walk: Yes Walk 10 feet (QC): 6 Walk 50ft with 2 Turns (QC): 6 Walk 150 ft (QC): 6 Walking 10ft on Uneven Surface: 6 1 Step (curb) (QC): 6 4 Steps (QC): 6 12 Steps (QC): 4 Picking up an Object (QC): 4 Does the Pt use WC or Scooter?: No Wheel 50 feet with 2 turns (QC: 9 Wheel 150 feet: 9 PT Plan Problem List Problem List: Activity Tolerance, Functional Strength, Safety, Balance, Gait, Transfer, Bed Mobility Treatment/Plan Treatment Plan: Continue Plan of Care Treatment Plan: Bed Mobility, Education, Functional Activity Neri, Functional Strength, Group Therapy, Gait, Safety, Therapeutic Exercise, Transfers Treatment Duration: October 19, 2020 Frequency: At least 5 of 7 days/Wk (IRF) Estimated Hrs Per Day: 1.5 hours per day Patient and/or Family Agrees t: Yes Safety Risks/Education Patient Education: Safety Issues Teaching Recipient: Patient Teaching Methods: Discussion Response to Teaching: Verbalize Understanding Discharge Recommendations Plan Pt to complete walking episodes this afternoon. Time/GCodes Time In: 900 Time Out: 1015 Total Billed Treatment Time: 75 Total Billed Treatment visit EX 15 GT 45 NM 15 GENO GRACE PT October 05, 2020 10:28
--- NOTE | 2020-10-05 10:43 | PM&R Progress Note ---
Subjective HPI/CC On Admission Date Seen by Provider: October 05, 2020 Time Seen by Provider: 11:00 Subjective/Events-last exam 10/05/20: Improved each day Strength improved Less dyspnea Sugar was 92 and he felt low 10/04/20: Doing well Gaining strength BM+ Lovenox maintained Sugar and BP stable 10/03/20: Patient doing well Decreased appetite noted Flomax has helped him voiding BiPAP at night 10/02/20: Pt had a much better night Took a pain pill and Melatonin Baclofen will be ordered Has lost 70lbs since admission on 09/05/20 Pain pill with the Melatonin seemed to work well so we will continue that regimen Compression stockings with MASHA wraps over will be initiated for the edema Review of Systems General: Fatigue, Malaise Pulmonary: Dyspnea Objective Exam Vital Signs Vital Signs Date Time Temp Pulse Resp B/P (MAP) Pulse Ox O2 Delivery O2 Flow Rate FiO2 10/05/20 22:08 Room Air 10/05/20 20:32 97 10/05/20 20:16 36.2 86 16 130/89 (103) Capillary Refill : General Appearance: No Apparent Distress, WD/WN, Chronically ill, Obese HEENT: PERRL/EOMI, Normal ENT Inspection, Pharynx Normal Neck: Full Range of Motion, Normal Inspection, Non Tender, Supple, Carotid Bruit Respiratory: Chest Non Tender, Lungs Clear, No Accessory Muscle Use, No Respiratory Distress, Decreased Breath Sounds Cardiovascular: Regular Rate, Rhythm, No Gallop, No JVD, No Murmur, Normal Peripheral Pulses Gastrointestinal: Normal Bowel Sounds, No Organomegaly, No Pulsatile Mass, Non Tender, Soft Back: Normal Inspection, No CVA Tenderness, No Vertebral Tenderness Extremity: Normal Capillary Refill, Normal Inspection, Normal Range of Motion, Non Tender, No Calf Tenderness, Pedal Edema Neurologic/Psychiatric: Alert, Oriented x3, No Motor/Sensory Deficits, brine room laborer II-X II Norm as Tested, Abnormal Gait, Depressed Affect, Motor Weakness (generalized 4/5) Skin: Normal Color, Warm/Dry Lymphatic: No Adenopathy Results/Procedures Lab Patient resulted labs reviewed. FIM Transfers Therapy Code Descriptions/Definitions Functional [place] Measure: 0=Not Assessed/NA 4=Minimal Assistance 1=Total Assistance 5=Supervision or Setup 2=Maximal Assistance 6=Modified [place] 3=Moderate Assistance 7=Complete IndependenceSCALE: Activities may be completed with or without assistive devices. 9-Ihumvdqphs-zchxqwo completes the activity by him/herself with no assistance from a helper. 5-Set-up or Clean-up Assistance-helper sets up or cleans up; patient completes a ctivity. [place] assists only prior to or following the activity. 4-Supervision or Touching Assistance-helper provides verbal cues and/or touching/steadying and/or contact guard assistance as patient completes activity. Assistance may be provided throughout the activity or intermittently. 3-Partial/Moderate Assistance-helper does LESS THAN HALF the effort. [place] lifts, holds or supports trunk or limbs, but provides less than half the effort. 2-Substantial/Maximal Assistance-helper does MORE THAN HALF the effort. [place] lifts or holds trunk or limbs and provides more than half the effort. 8-Xpjhgcpet-jdcgbo does ALL the effort. Patient does none of the effort to complete the activity. Or, the assistance of 2 or more helpers is required for the patient to complete the activity. If activity was not attempted, code reason: 7-Patient Refused. 9-Not Applicable-not attempted and the patient did not perform the activity before the current illness, exacerbation or injury. 10-Not Attempted due to Environmental Limitations-(lack of equipment, weather restraints, etc.). 88-Not Attempted due to Medical Conditions or Safety Concerns. Roll Left to Right (QC): 4 Sit to Lying (QC): 4 (takes extra effort and uses the bedrail) Sit to Stand (QC): 4 Chair/Rso-pz-Yxhfm Xfer(QC): 4 Car Transfer (QC): 3 Gait Training Does the Patient Walk?: Yes Distance: 250' x2 Walk 10 feet (QC): 4 Walk 50 ft with 2 Turns(QC): 4 Walk 150 ft (QC): 4 Walking 10ft/uneven surface-QC: 4 Gait Persons Needed: 1 Gait Assistive Device: Cane Large Base Quad Wheelchair Training Does the Pt Use a Wheelchair?: No Wheel 50 ft with 2 turns (QC): 9 Wheel 150 ft (QC): 9 Stair Training Stair Training: Handrails/: 2 handrails #of Steps: 4 1 Step (curb) (QC): 5 4 Steps (QC): 4 ( B Handrail with SBA; reciprocal gait) 12 Steps (QC): 88 Stairs: Pattern: Step to Balance Picking up an Object (QC): 88 ADL-Treatment Eating (QC): 6 Oral Hygiene (QC): 6 Shower/Bathe Self (QC): 4 Upper Body Dressing (QC): 5 Lower Body Dressing (QC): 5 On/Off Footwear (QC): 5 Toileting Hygiene (QC): 6 Toilet Transfer (QC): 6 Assessment/Plan Assessment and Plan Assess & Plan/Chief Complaint Assessment: COPD myopathy Severe RIAZ previous untreated causing acute respiratory failure 09/05/20 s/p vent dependence now wearing/tolerating home biPAP machine DM with severe insulin resistance HTN HLP CAD previous stents Angina CRI Spine disease Anemia hgb 11 Thrombocytopenia Plan: IRF protocol Monitor diabetes requires extreme amount of insulin Home meds BiPAP 10/02/20: Monitor O2 IRF therapies Monitor sugar 10/03/20: Monitor pain BiPAP 10/04/20: Monitor O2 Lovenox Sugar and BP management 10/05/20: Monitor O2 Increase stamina (1) Acute on chronic respiratory failure with hypoxia and hypercapnia (2) Urinary retention (3) Edema (4) Stented coronary artery (5) CAD (coronary artery disease) Status: Acute (6) RIAZ (obstructive sleep apnea) (7) Chronic pain Status: Chronic (8) Renal insufficiency (9) Anxiety Status: Acute (10) Angina pectoris syndrome (11) Diabetes mellitus, insulin dependent (IDDM), uncontrolled Status: Acute IRINEO GONSALEZ DO October 05, 2020 10:43
[2020-10-05] MEDS: DOCUSATE SODIUM 100 MG (COLACE) CAP PO SCH ×2 (11:11→20:28)
[2020-10-05] MEDS: SENNA W/DOCUSATE (SENOKOT S) TABLET PO SCH ×2 (11:11→20:28)
[2020-10-05] MEDS: polyethylene glycoL POWDER 17 GM (MIRALAX) PACK PO SCH ×2 (11:11→20:28)
--- NOTE | 2020-10-05 12:14 | Occupational Ther Daily Note ---
OT Current Status-Daily Note Subjective Pt alert, sitting in recliner. Pt agrees to therapy. No c/o pain. Mental Status/Objective Patient Orientation: Person, Place, Time, Situation Attachments: IV (midline) ADL-Treatment 1st session ([id number])Pt agrees to shower. Ambulates to bathroom using FWW. Transfer on/off toilet independent with grabbars and FWW. Completed toileting hygiene/clothing manipulation independently. Transferred into shower independently. Pt completes all bathing by self using shower bench, grabbars and hand held shower. Min A to CGA for sit to stand then pt able to stabilize self with grabbars and cleanse buttocks by self. After set up, pt able to complete dressing by self. Pt takes increased time to complete tasks due to recovery breaks from SOA. Independent with eating and opening containers. After therapy, pt sitting in recliner eating lunch. Call light/phone in reach. All needs met. Therapy Code Descriptions/Definitions Functional [place] Measure: 0=Not Assessed/NA 4=Minimal Assistance 1=Total Assistance 5=Supervision or Setup 2=Maximal Assistance 6=Modified [place] 3=Moderate Assistance 7=Complete IndependenceSCALE: Activities may be completed with or without assistive devices. 0-Wwetvokcks-tllrabc completes the activity by him/herself with no assistance fr om a helper. 5-Set-up or Clean-up Assistance-helper sets up or cleans up; patient completes activity. [place] assists only prior to or following the activity. 4-Supervision or Touching Assistance-helper provides verbal cues and/or touching/steadying and/or contact guard assistance as patient completes activity. Assistance may be provided throughout the activity or intermittently. 3-Partial/Moderate Assistance-helper does LESS THAN HALF the effort. [place] lifts, holds or supports trunk or limbs, but provides less than half the effort. 2-Substantial/Maximal Assistance-helper does MORE THAN HALF the effort. [place] lifts or holds trunk or limbs and provides more than half the effort. 0-Fxkwgmvfa-sumdfb does ALL the effort. Patient does none of the effort to complete the activity. Or, the assistance of 2 or more helpers is required for the patient to complete the activity. If activity was not attempted, code reason: 7-Patient Refused. 9-Not Applicable-not attempted and the patient did not perform the activity before the current illness, exacerbation or injury. 10-Not Attempted due to Environmental Limitations-(lack of equipment, weather restraints, etc.). 88-Not Attempted due to Medical Conditions or Safety Concerns. Eating (QC): 6 Shower/Bathe Self (QC): 3 Upper Body Dressing (QC): 5 Lower Body Dressing (QC): 5 On/Off Footwear: 5 Toileting Hygiene (QC): 6 Toilet Transfer (QC): 6 Other Treatment 2nd session([id number]): Pt ambulated to bathroom to complete oral care independently standing at sink, seat placed in case pt fatigued. Pt then ambulated around ARU 2x's to increase strength and activity tolerance for daily functional tasks. After therapy, pt sitting in recliner with call light/phone in reach. All needs met in room. OT Short Term Goals Short Term Goals Time Frame: October 15, 2020 Oral hygiene: 5 Shower/bathe self: 5 Upper body dressin Lower body dressin Putting on/taking off footwear: 5 OT Fdc Goals Fdc Goals Time Frame: Oct 26, 2020 Eating (QC): 6 Oral Hygiene (QC): 6 Toileting Hygiene (QC): 6 Shower/Bathe Self (QC): 6 Upper Body Dressing (QC): 6 Lower Body Dressing (QC): 6 On/Off Footwear (QC): 6 Additional Goals: 1-Demonstrate ADL Tasks, 2-Verbalize Understanding, 3-ImproveStrength/Neri 1=Demonstrate adherence to instructed precautions during ADL tasks. 2=Patient will verbalize/demonstrate understanding of assistive devices/modifications for ADL. 3=Patient will improve strength/tolerance for activity to enable patient to perform ADL's. OT Education/Plan Problem List/Assessment Assessment: Decreased Activ Tolerance, Decreased UE Strength, Impaired Self- Care Skills Discharge Recommendations Plan/Recommendations: Continue POC Treatment Plan/Plan of Care Patient would benefit from OT for education, treatment and training to promote independence in ADL's, mobility, safety and/or upper extremity function for ADL's. Plan of Care: ADL Retraining, Functional Mobility, Group Exercise/Act as Ind, UE Funct Exercise/Act Treatment Duration: Oct 26, 2020 Frequency: At least 5 of 7 days/Wk (IRF) Estimated Hrs Per Day: 1 hour per day Agreement: Yes Rehab Potential: Good Time/GCodes Start Time: 11:30 (1300) Stop Time: 12:30 (1330) Total Time Billed (hr/min): 90 Billed Treatment Time 1 visit([id number])- ADL 4 (60 min) 1 visit([id number]) ADL 1 (15 min) FA 1 (15 min) GENO FERREIRA October 05, 2020 12:14
[2020-10-05] MEDS: ACETAMINOPHEN 325 MG TABLET PO PRN (13:49)
[2020-10-05] MEDS: BACLOFEN 10 MG (LIORESAL) TAB PO PRN ×2 (13:49→20:21)
--- NOTE | 2020-10-05 15:04 | Physical Therapy Daily Note ---
PT Daily Note-Current Subjective Pt. agrees to Rx. States he has some SOB with mask on while walking but feels he is making progress Pain Location: No Pain Reported Mental Status Patient Orientation: Normal For Age Attachments: Other-See Comments (mask) Transfers SCALE: Activities may be completed with or without assistive devices. 4-Hqjxwkhiia-dlchmyf completes the activity by him/herself with no assistance from a helper. 5-Set-up or Clean-up Assistance-helper sets up or cleans up; patient completes activity. [place] assists only prior to or following the activity. 4-Supervision or Touching Assistance-helper provides verbal cues and/or touching/steadying and/or contact guard assistance as patient completes act ivity. Assistance may be provided throughout the activity or intermittently. 3-Partial/Moderate Assistance-helper does LESS THAN HALF the effort. [place] lifts, holds or supports trunk or limbs, but provides less than half the effort. 2-Substantial/Maximal Assistance-helper does MORE THAN HALF the effort. [place] lifts or holds trunk or limbs and provides more than half the effort. 1-Yxcqfpavq-ybigtc does ALL the effort. Patient does none of the effort to complete the activity. Or, the assistance of 2 or more helpers is required for the patient to complete the activity. If activity was not attempted, code reason: 7-Patient Refused. 9-Not Applicable-not attempted and the patient did not perform the activity before the current illness, exacerbation or injury. 10-Not Attempted due to Environmental Limitations-(lack of equipment, weather restraints, etc.). 88-Not Attempted due to Medical Conditions or Safety Concerns. Sit to Stand (QC): 6 Weight Bearing Full Weight Bearing Full Weight Bearing Gait Training Does the Patient Walk?: Yes Gait Assistive Device: FWW [id number] FWW SBA to CGA, no LOB, slow with dyspnea noted Exercises Seated Therapy Exercises: Ankle pumps, Sit to stand, Long arc quads, Hip flexion, Hip abd/add Seated Reps: 15 Treatments in chair with sawant at hand after Rx Assessment Current Status: Good Progress PT Short Term Goals Short Term Goals Time Frame: October 08, 2020 Sit to lyin Lying to sitting on side of be: 4 Sit to stand: 4 (met) Walk 150 feet: 4 (met) PT Wood Type Finisher Goals Wood Type Finisher Goals PT Care Home Goals Time Frame: October 19, 2020 Roll Left & Right (QC): 6 Sit to Lying (QC): 6 Lying-Sitting on Side/Bed(QC): 6 Sit to Stand (QC): 6 Chair/Wxg-ya-Zshqj Xfer(QC): 6 Toilet Transfer (QC): 6 Car Transfer (QC): 6 Does the Patient Walk: Yes Walk 10 feet (QC): 6 Walk 50ft with 2 Turns (QC): 6 Walk 150 ft (QC): 6 Walking 10ft on Uneven Surface: 6 1 Step (curb) (QC): 6 4 Steps (QC): 6 12 Steps (QC): 4 Picking up an Object (QC): 4 Does the Pt use WC or Scooter?: No Wheel 50 feet with 2 turns (QC: 9 Wheel 150 feet: 9 PT Plan Treatment/Plan Treatment Plan: Continue Plan of Care Treatment Plan: Bed Mobility, Education, Functional Activity Neri, Functional Strength, Group Therapy, Gait, Safety, Therapeutic Exercise, Transfers Treatment Duration: October 19, 2020 Frequency: At least 5 of 7 days/Wk (IRF) Estimated Hrs Per Day: 1.5 hours per day Patient and/or Family Agrees t: Yes Safety Risks/Education Patient Education: Gait Training, Transfer Techniques, Correct Positioning, Disease Process, Safety Issues Teaching Recipient: Patient Teaching Methods: Demonstration, Discussion Response to Teaching: Verbalize Understanding, Return Demonstration, Reinforcement Needed Time/GCodes Time In: 1405 Time Out: 1425 Total Billed Treatment Time: 20 Total Billed Treatment 1,GT20m ELISA VINES PATIENT TRANSPORT OFFICER October 05, 2020 15:04
[2020-10-05] MEDS: TAMSULOSIN 0.4 MG (FLOMAX) CAP PO SCH (17:26)
[2020-10-05 20:00] VITALS: BP_SYST 110; BP_SYST 130; BP_DIAS 53; BP_DIAS 89
[2020-10-05 20:16] VITALS: BP 130/89
[2020-10-05] MEDS: HYDROcodone/APAP 7.5 MG/325 MG (LORTAB, LORCET PLUS) TABLET PO PRN (20:22)
[2020-10-05] MEDS: MELATONIN 3 MG TABLET PO PRN (20:22)
[2020-10-06] MEDS: ACETAMINOPHEN 325 MG TABLET PO PRN ×2 (02:45→14:14)
[2020-10-06] MEDS: BACLOFEN 10 MG (LIORESAL) TAB PO PRN ×3 (02:48→20:42)
[2020-10-06] MEDS: inSUlin ASPART (NovoLOG) 1 UNIT/0.01 ML (CHARGE PER UNIT) SC SCH ×4 (06:00→20:45)
[2020-10-06] MEDS: inSUlin (REGULAR) HUMAN 1 UNIT/0.01 ML (CHARGE PER UNIT) SC SCH ×4 (06:33→20:44)
[2020-10-06] MEDS: CATHETER FLUSH 10 ML SYR IV SCH ×3 (06:33→22:32)
[2020-10-06 07:30] VITALS: BP 125/77
[2020-10-06] MEDS: PRASUGREL 10 MG (EFFIENT) TABLET PO SCH (09:42)
[2020-10-06] MEDS: SENNA W/DOCUSATE (SENOKOT S) TABLET PO SCH ×2 (09:42→20:51)
[2020-10-06] MEDS: DOCUSATE SODIUM 100 MG (COLACE) CAP PO SCH ×2 (09:42→20:42)
[2020-10-06] MEDS: PANTOPRAZOLE 40 MG (PROTONIX) TAB PO SCH (09:42)
[2020-10-06] MEDS: ASPIRIN 81 MG CHEW (CHILDREN'S ASA) PO SCH (09:42)
[2020-10-06] MEDS: ENOXAPARIN 40 MG/0.4 ML (LOVENOX) SYR SQ SCH ×2 (09:43→20:43)
[2020-10-06] MEDS: DICLOFENAC 1% GEL 100 GM (VOLTAREN) TUBE TOP SCH ×3 (09:45→20:46)
[2020-10-06] MEDS: polyethylene glycoL POWDER 17 GM (MIRALAX) PACK PO SCH ×2 (09:45→20:51)
--- NOTE | 2020-10-06 11:46 | Physical Therapy Daily Note ---
PT Daily Note-Current Subjective Pt rates LBP 5-6/10. Pt agreeable and ready for PT. Pt states "I think my stamina is doing much better today. I have come a long way since Thursday." Mental Status Patient Orientation: Person, Place, Situation Transfers SCALE: Activities may be completed with or without assistive devices. 5-Anbybxtnpx-lpamqjd completes the activity by him/herself with no assistance from a helper. 5-Set-up or Clean-up Assistance-helper sets up or cleans up; patient completes activity. [place] assists only prior to or following the activity. 4-Supervision or Touching Assistance-helper provides verbal cues and/or touching/steadying and/or contact guard assistance as patient completes activity. Assistance may be provided throughout the activity or intermittently. 3-Partial/Moderate Assistance-helper does LESS THAN HALF the effort. [place] lifts, holds or supports trunk or limbs, but provides less than half the effort. 2-Substantial/Maximal Assistance-helper does MORE THAN HALF the effort. [place] lifts or holds trunk or limbs and provides more than half the effort. 9-Fqfnmbyiv-dgqgqe does ALL the effort. Patient does none of the effort to complete the activity. Or, the assistance of 2 or more helpers is required for the patient to complete the activity. If activity was not attempted, code reason: 7-Patient Refused. 9-Not Applicable-not attempted and the patient did not perform the activity before the current illness, exacerbation or injury. 10-Not Attempted due to Environmental Limitations-(lack of equipment, weather restraints, etc.). 88-Not Attempted due to Medical Conditions or Safety Concerns. Mod (I) with sit to stand transfers Weight Bearing Full Weight Bearing Full Weight Bearing Gait Training Pt amb with QC and CGA 3 x 200ft. O2 sats monitored at 98% after each bout. Exercises Seated Therapy Exercises: Ankle pumps, Sit to stand, Long arc quads Seated Reps: 20 Assessment Current Status: Good Progress Pt progressing with FA and endurance per pt. Pt back to recliner with call light and all needs met. PT Short Term Goals Short Term Goals Time Frame: October 08, 2020 Sit to lyin Lying to sitting on side of be: 4 Sit to stand: 4 (met) Walk 150 feet: 4 (met) PT Body Straightener Goals Body Straightener Goals PT Nursing Home Goals Time Frame: October 19, 2020 Roll Left & Right (QC): 6 Sit to Lying (QC): 6 Lying-Sitting on Side/Bed(QC): 6 Sit to Stand (QC): 6 Chair/Seh-du-Teusu Xfer(QC): 6 Toilet Transfer (QC): 6 Car Transfer (QC): 6 Does the Patient Walk: Yes Walk 10 feet (QC): 6 Walk 50ft with 2 Turns (QC): 6 Walk 150 ft (QC): 6 Walking 10ft on Uneven Surface: 6 1 Step (curb) (QC): 6 4 Steps (QC): 6 12 Steps (QC): 4 Picking up an Object (QC): 4 Does the Pt use WC or Scooter?: No Wheel 50 feet with 2 turns (QC: 9 Wheel 150 feet: 9 PT Plan Treatment/Plan Treatment Plan: Continue Plan of Care Treatment Plan: Bed Mobility, Education, Functional Activity Neri, Functional Strength, Group Therapy, Gait, Safety, Therapeutic Exercise, Transfers Treatment Duration: October 19, 2020 Frequency: At least 5 of 7 days/Wk (IRF) Estimated Hrs Per Day: 1.5 hours per day Patient and/or Family Agrees t: Yes Time/GCodes Time In: 1105 Time Out: 1120 Total Billed Treatment Time: 15 Total Billed Treatment 1, Gait x 15' SARAH DAVALOS CPTA October 06, 2020 11:46
--- NOTE | 2020-10-06 12:40 | PM&R Progress Note ---
Subjective HPI/CC On Admission Date Seen by Provider: October 06, 2020 Time Seen by Provider: 12:45 Subjective/Events-last exam 10/06/20: Ambulating well No pain reported except his chronic back pain BiPAP use every night 10/05/20: Improved each day Strength improved Less dyspnea Sugar was 92 and he felt low 10/04/20: Doing well Gaining strength BM+ Lovenox maintained Sugar and BP stable 10/03/20: Patient doing well Decreased appetite noted Flomax has helped him voiding BiPAP at night 10/02/20: Pt had a much better night Took a pain pill and Melatonin Baclofen will be ordered Has lost 70lbs since admission on 09/05/20 Pain pill with the Melatonin seemed to work well so we will continue that regimen Compression stockings with MASHA wraps over will be initiated for the edema Review of Systems General: Fatigue Pulmonary: Dyspnea Objective Exam Vital Signs Vital Signs Date Time Temp Pulse Resp B/P (MAP) Pulse Ox O2 Delivery O2 Flow Rate FiO2 10/06/20 09:00 Room Air 10/06/20 07:30 36.4 90 20 125/77 (93) 94 Capillary Refill : General Appearance: No Apparent Distress, WD/WN, Chronically ill, Obese HEENT: PERRL/EOMI, Normal ENT Inspection, Pharynx Normal Neck: Full Range of Motion, Normal Inspection, Non Tender, Supple, Carotid Bruit Respiratory: Chest Non Tender, Lungs Clear, No Accessory Muscle Use, No Respiratory Distress, Decreased Breath Sounds Cardiovascular: Regular Rate, Rhythm, No Gallop, No JVD, No Murmur, Normal Peripheral Pulses Gastrointestinal: Normal Bowel Sounds, No Organomegaly, No Pulsatile Mass, Non Tender, Soft Back: Normal Inspection, No CVA Tenderness, No Vertebral Tenderness Extremity: Normal Capillary Refill, Normal Inspection, Normal Range of Motion, Non Tender, No Calf Tenderness, Pedal Edema Neurologic/Psychiatric: Alert, Oriented x3, No Motor/Sensory Deficits, molasses preparer II- XII Norm as Tested, Abnormal Gait, Depressed Affect, Motor Weakness (generalized 4/5) Skin: Normal Color, Warm/Dry Lymphatic: No Adenopathy Results/Procedures Lab Patient resulted labs reviewed. FIM Transfers Therapy Code Descriptions/Definitions Functional [place] Measure: 0=Not Assessed/NA 4=Minimal Assistance 1=Total Assistance 5=Supervision or Setup 2=Maximal Assistance 6=Modified [place] 3=Moderate Assistance 7=Complete IndependenceSCALE: Activities may be completed with or without assistive devices. 4-Smwauvrdgq-lsinwpv completes the activity by him/herself with no assistance from a helper. 5-Set-up or Clean-up Assistance-helper sets up or cleans up; patient completes activity. [place] assists only prior to or following the activity. 4-Supervision or Touching Assistance-helper provides verbal cues and/or touching/steadying and/or contact guard assistance as patient completes activity. Assistance may be provided throughout the activity or intermittently. 3-Partial/Moderate Assistance-helper does LESS THAN HALF the effort. [place] lifts, holds or supports trunk or limbs, but provides less than half the effort. 2-Substantial/Maximal Assistance-helper does MORE THAN HALF the effort. [place] lifts or holds trunk or limbs and provides more than half the effort. 7-Icfczkxcn-pqskrt does ALL the effort. Patient does none of the effort to complete the activity. Or, the assistance of 2 or more helpers is required for the patient to complete the activity. If activity was not attempted, code reason: 7-Patient Refused. 9-Not Applicable-not attempted and the patient did not perform the activity before the current illness, exacerbation or injury. 10-Not Attempted due to Environmental Limitations-(lack of equipment, weather restraints, etc.). 88-Not Attempted due to Medical Conditions or Safety Concerns. Roll Left to Right (QC): 4 Sit to Lying (QC): 4 (takes extra effort and uses the bedrail) Sit to Stand (QC): 6 Chair/Orw-xz-Nexin Xfer(QC): 4 Car Transfer (QC): 3 Gait Training Does the Patient Walk?: Yes Distance: 250' x2 Walk 10 feet (QC): 4 Walk 50 ft with 2 Turns(QC): 4 Walk 150 ft (QC): 4 Walking 10ft/uneven surface-QC: 4 Gait Persons Needed: 1 Gait Assistive Device: FWW Wheelchair Training Does the Pt Use a Wheelchair?: No Wheel 50 ft with 2 turns (QC): 9 Wheel 150 ft (QC): 9 Stair Training Stair Training: Handrails/: 2 handrails #of Steps: 4 1 Step (curb) (QC): 5 4 Steps (QC): 4 ( B Handrail with SBA; reciprocal gait) 12 Steps (QC): 88 Stairs: Pattern: Step to Balance Picking up an Object (QC): 88 ADL-Treatment Eating (QC): 6 Oral Hygiene (QC): 6 Shower/Bathe Self (QC): 3 Upper Body Dressing (QC): 5 Lower Body Dressing (QC): 5 On/Off Footwear (QC): 5 Toileting Hygiene (QC): 6 Toilet Transfer (QC): 6 Assessment/Plan Assessment and Plan Assess & Plan/Chief Complaint Assessment: COPD myopathy Severe RIAZ previous untreated causing acute respiratory failure 09/05/20 s/p vent dependence now wearing/tolerating home biPAP machine DM with severe insulin resistance HTN HLP CAD previous stents Angina CRI Spine disease Anemia hgb 11 Thrombocytopenia Plan: IRF protocol Monitor diabetes requires extreme amount of insulin Home meds BiPAP 10/02/20: Monitor O2 IRF therapies Monitor sugar 10/03/20: Monitor pain BiPAP 10/04/20: Monitor O2 Lovenox Sugar and BP management 10/05/20: Monitor O2 Increase stamina 10/06/20: Monitor O2 BiPAP at night (1) Acute on chronic respiratory failure with hypoxia and hypercapnia (2) Urinary retention (3) Edema (4) Stented coronary artery (5) CAD (coronary artery disease) Status: Acute (6) RIAZ (obstructive sleep apnea) (7) Chronic pain Status: Chronic (8) Renal insufficiency (9) Anxiety Status: Acute (10) Angina pectoris syndrome (11) Diabetes mellitus, insulin dependent (IDDM), uncontrolled Status: Acute IRINEO GONSALEZ DO October 06, 2020 12:40
[2020-10-06] MEDS: TAMSULOSIN 0.4 MG (FLOMAX) CAP PO SCH (17:29)
[2020-10-06 19:34] VITALS: BP 131/85
[2020-10-06] MEDS: MELATONIN 3 MG TABLET PO PRN (20:42)
[2020-10-07] MEDS: CATHETER FLUSH 10 ML SYR IV SCH ×3 (06:20→22:51)
[2020-10-07] MEDS: inSUlin ASPART (NovoLOG) 1 UNIT/0.01 ML (CHARGE PER UNIT) SC SCH ×4 (06:21→20:50)
[2020-10-07] MEDS: inSUlin (REGULAR) HUMAN 1 UNIT/0.01 ML (CHARGE PER UNIT) SC SCH ×4 (06:21→20:40)
[2020-10-07 07:30] VITALS: BP 130/82
[2020-10-07] MEDS: DOCUSATE SODIUM 100 MG (COLACE) CAP PO SCH ×2 (08:03→20:39)
[2020-10-07] MEDS: SENNA W/DOCUSATE (SENOKOT S) TABLET PO SCH ×2 (08:03→20:49)
[2020-10-07] MEDS: ASPIRIN 81 MG CHEW (CHILDREN'S ASA) PO SCH (08:03)
[2020-10-07] MEDS: PANTOPRAZOLE 40 MG (PROTONIX) TAB PO SCH (08:03)
[2020-10-07] MEDS: PRASUGREL 10 MG (EFFIENT) TABLET PO SCH (08:03)
[2020-10-07] MEDS: ENOXAPARIN 40 MG/0.4 ML (LOVENOX) SYR SQ SCH ×2 (08:04→20:39)
[2020-10-07] MEDS: polyethylene glycoL POWDER 17 GM (MIRALAX) PACK PO SCH ×2 (08:24→20:49)
[2020-10-07] MEDS: DICLOFENAC 1% GEL 100 GM (VOLTAREN) TUBE TOP SCH ×3 (11:44→20:42)
--- NOTE | 2020-10-07 12:08 | PM&R Progress Note ---
Subjective HPI/CC On Admission Date Seen by Provider: October 07, 2020 Time Seen by Provider: 12:15 Subjective/Events-last exam 10/07/20: Doing well Less dyspneic Monitoring pain Sugars good 10/06/20: Ambulating well No pain reported except his chronic back pain BiPAP use every night 10/05/20: Improved each day Strength improved Less dyspnea Sugar was 92 and he felt low 10/04/20: Doing well Gaining strength BM+ Lovenox maintained Sugar and BP stable 10/03/20: Patient doing well Decreased appetite noted Flomax has helped him voiding BiPAP at night 10/02/20: Pt had a much better night Took a pain pill and Melatonin Baclofen will be ordered Has lost 70lbs since admission on 09/05/20 Pain pill with the Melatonin seemed to work well so we will continue that regimen Compression stockings with MASHA wraps over will be initiated for the edema Review of Systems General: Fatigue Pulmonary: Dyspnea Objective Exam Vital Signs Vital Signs Date Time Temp Pulse Resp B/P (MAP) Pulse Ox O2 Delivery O2 Flow Rate FiO2 10/07/20 19:23 36.6 88 19 141/90 (107) 98 Room Air Capillary Refill : General Appearance: No Apparent Distress, WD/WN, Chronically ill, Obese HEENT: PERRL/EOMI, Normal ENT Inspection, Pharynx Normal Neck: Full Range of Motion, Normal Inspection, Non Tender, Supple, Carotid Bruit Respiratory: Chest Non Tender, Lungs Clear, No Accessory Muscle Use, No Respiratory Distress, Decreased Breath Sounds Cardiovascular: Regular Rate, Rhythm, No Gallop, No JVD, No Murmur, Normal Peripheral Pulses Gastrointestinal: Normal Bowel Sounds, No Organomegaly, No Pulsatile Mass, Non Tender, Soft Back: Normal Inspection, No CVA Tenderness, No Vertebral Tenderness Extremity: Normal Capillary Refill, Normal Inspection, Normal Range of Motion, Non Tender, No Calf Tenderness, Pedal Edema Neurologic/Psychiatric: Alert, Oriented x3, No Motor/Sensory Deficits, sand filler II- XII Norm as Tested, Abnormal Gait, Depressed Affect, Motor Weakness (generalized 4/5) Skin: Normal Color, Warm/Dry Lymphatic: No Adenopathy Results/Procedures Lab Patient resulted labs reviewed. FIM Transfers Therapy Code Descriptions/Definitions Functional [place] Measure: 0=Not Assessed/NA 4=Minimal Assistance 1=Total Assistance 5=Supervision or Setup 2=Maximal Assistance 6=Modified [place] 3=Moderate Assistance 7=Complete IndependenceSCALE: Activities may be completed with or without assistive devices. 4-Rbqnujbmvh-khspkqi completes the activity by him/herself with no assistance from a helper. 5-Set-up or Clean-up Assistance-helper sets up or cleans up; patient completes activity. [place] assists only prior to or following the activity. 4-Supervision or Touching Assistance-helper provides verbal cues and/or touching/steadying and/or contact guard assistance as patient completes activity. Assistance may be provided throughout the activity or intermittently. 3-Partial/Moderate Assistance-helper does LESS THAN HALF the effort. [place] lifts, holds or supports trunk or limbs, but provides less than half the effort. 2-Substantial/Maximal Assistance-helper does MORE THAN HALF the effort. [place] lifts or holds trunk or limbs and provides more than half the effort. 4-Hhmvaqxpt-emmsef does ALL the effort. Patient does none of the effort to complete the activity. Or, the assistance of 2 or more helpers is required for the patient to complete the activity. If activity was not attempted, code reason: 7-Patient Refused. 9-Not Applicable-not attempted and the patient did not perform the activity before the current illness, exacerbation or injury. 10-Not Attempted due to Environmental Limitations-(lack of equipment, weather restraints, etc.). 88-Not Attempted due to Medical Conditions or Safety Concerns. Roll Left to Right (QC): 4 Sit to Lying (QC): 4 (takes extra effort and uses the bedrail) Sit to Stand (QC): 6 Chair/Qsb-sn-Vnbzx Xfer(QC): 4 Car Transfer (QC): 3 Gait Training Does the Patient Walk?: Yes Distance: 250' x2 Walk 10 feet (QC): 4 Walk 50 ft with 2 Turns(QC): 4 Walk 150 ft (QC): 4 Walking 10ft/uneven surface-QC: 4 Gait Persons Needed: 1 Gait Assistive Device: FWW Wheelchair Training Does the Pt Use a Wheelchair?: No Wheel 50 ft with 2 turns (QC): 9 Wheel 150 ft (QC): 9 Stair Training Stair Training: Handrails/: 2 handrails #of Steps: 4 1 Step (curb) (QC): 5 4 Steps (QC): 4 ( B Handrail with SBA; reciprocal gait) 12 Steps (QC): 88 Stairs: Pattern: Step to Balance Picking up an Object (QC): 88 ADL-Treatment Eating (QC): 6 Oral Hygiene (QC): 6 Shower/Bathe Self (QC): 3 Upper Body Dressing (QC): 5 Lower Body Dressing (QC): 5 On/Off Footwear (QC): 5 Toileting Hygiene (QC): 6 Toilet Transfer (QC): 6 Assessment/Plan Assessment and Plan Assess & Plan/Chief Complaint Assessment: COPD myopathy Severe RIAZ previous untreated causing acute respiratory failure 09/05/20 s/p vent dependence now wearing/tolerating home biPAP machine DM with severe insulin resistance HTN HLP CAD previous stents Angina CRI Spine disease Anemia hgb 11 Thrombocytopenia Plan: IRF protocol Monitor diabetes requires extreme amount of insulin Home meds BiPAP 10/02/20: Monitor O2 IRF therapies Monitor sugar 10/03/20: Monitor pain BiPAP 10/04/20: Monitor O2 Lovenox Sugar and BP management 10/05/20: Monitor O2 Increase stamina 10/06/20: Monitor O2 BiPAP at night 10/07/20: Monitor O2 Labs in am (1) Acute on chronic respiratory failure with hypoxia and hypercapnia (2) Urinary retention (3) Edema (4) Stented coronary artery (5) CAD (coronary artery disease) Status: Acute (6) RIAZ (obstructive sleep apnea) (7) Chronic pain Status: Chronic (8) Renal insufficiency (9) Anxiety Status: Acute (10) Angina pectoris syndrome (11) Diabetes mellitus, insulin dependent (IDDM), uncontrolled Status: Acute IRINEO GONSALEZ DO October 07, 2020 12:08
[2020-10-07] MEDS: BACLOFEN 10 MG (LIORESAL) TAB PO PRN ×2 (14:39→20:38)
[2020-10-07] MEDS: TAMSULOSIN 0.4 MG (FLOMAX) CAP PO SCH (17:05)
[2020-10-07 19:23] VITALS: BP 141/90
[2020-10-07] MEDS: HYDROcodone/APAP 7.5 MG/325 MG (LORTAB, LORCET PLUS) TABLET PO PRN (20:38)
[2020-10-07] MEDS: MELATONIN 3 MG TABLET PO PRN (20:38)
[2020-10-08] MEDS: HYDROcodone/APAP 7.5 MG/325 MG (LORTAB, LORCET PLUS) TABLET PO PRN (02:10)
[2020-10-08] MEDS: BACLOFEN 10 MG (LIORESAL) TAB PO PRN ×4 (02:10→21:50)
[2020-10-08 06:00] LABS: BASOPHILS % (AUTO) 1 % (0-10); EOSINOPHILS # (AUTO) 0.1 10^3/uL (0.0-0.3); EOSINOPHILS % (AUTO) 1 % (0-10); HEMATOCRIT 34 % (40-54); HEMOGLOBIN 11.1 g/dL (13.3-17.7); LYMPHOCYTES # (AUTO) 1.4 10^3/uL (1.0-4.0); LYMPHOCYTES % (AUTO) 25 % (12-44); MEAN CORPUSCULAR HEMOGLOBIN 31 pg (25-34); MEAN CORPUSCULAR HGB CONC 33 g/dL (32-36); MEAN CORPUSCULAR VOLUME 94 fL (80-99); MEAN PLATELET VOLUME 10.1 fL (9.0-12.2); MONOCYTES # (AUTO) 0.7 10^3/uL (0.0-1.0); MONOCYTES % (AUTO) 13 % (0-12); NEUTROPHILS # (AUTO) 3.2 10^3/uL (1.8-7.8); NEUTROPHILS % (AUTO) 58 % (42-75); PLATELET COUNT 205 10^3/uL (130-400); WHITE BLOOD COUNT 5.5 10^3/uL (4.3-11.0)
[2020-10-08] MEDS: inSUlin ASPART (NovoLOG) 1 UNIT/0.01 ML (CHARGE PER UNIT) SC SCH ×4 (06:01→21:21)
[2020-10-08 06:10] LABS: ALBUMIN 3.2 GM/DL (3.2-4.5); CHLORIDE 105 MMOL/L (98-107); POTASSIUM 3.6 MMOL/L (3.6-5.0); SODIUM 141 MMOL/L (135-145)
[2020-10-08 06:11] LABS: CALCIUM 9.2 MG/DL (8.5-10.1)
[2020-10-08 06:12] LABS: GLUCOSE 105 MG/DL (70-105)
[2020-10-08 06:13] LABS: TOTAL PROTEIN 6.3 GM/DL (6.4-8.2)
[2020-10-08 06:14] LABS: BILIRUBIN,TOTAL 0.6 MG/DL (0.1-1.0); CARBON DIOXIDE 25 MMOL/L (21-32)
[2020-10-08 06:16] LABS: ALKALINE PHOSPHATASE 64 U/L (40-136); CREATININE SERUM 0.88 MG/DL (0.60-1.30); GFR ESTIMATED > 60
[2020-10-08 06:17] LABS: BUN/CREATININE RATIO 13
[2020-10-08 06:19] LABS: ALANINE AMINOTRANSFERASE 34 U/L (0-55)
[2020-10-08] MEDS: inSUlin (REGULAR) HUMAN 1 UNIT/0.01 ML (CHARGE PER UNIT) SC SCH ×4 (06:30→21:35)
[2020-10-08] MEDS: CATHETER FLUSH 10 ML SYR IV SCH ×3 (06:30→21:36)
--- NOTE | 2020-10-08 07:19 | PM&R Progress Note ---
Subjective HPI/CC On Admission Date Seen by Provider: October 08, 2020 Time Seen by Provider: 08:30 Subjective/Events-last exam 10/08/20: Pt is discharged on Thursday Labs look okay Doing well Bowels moved yesterday, laxatives ordered Pain pill has helped him 10/07/20: Doing well Less dyspneic Monitoring pain Sugars good 10/06/20: Ambulating well No pain reported except his chronic back pain BiPAP use every night 10/05/20: Improved each day Strength improved Less dyspnea Sugar was 92 and he felt low 10/04/20: Doing well Gaining strength BM+ Lovenox maintained Sugar and BP stable 10/03/20: Patient doing well Decreased appetite noted Flomax has helped him voiding BiPAP at night 10/02/20: Pt had a much better night Took a pain pill and Melatonin Baclofen will be ordered Has lost 70lbs since admission on 09/05/20 Pain pill with the Melatonin seemed to work well so we will continue that regimen Compression stockings with MASHA wraps over will be initiated for the edema Review of Systems General: Fatigue, Malaise Neurological: Weakness Objective Exam Vital Signs Vital Signs Date Time Temp Pulse Resp B/P (MAP) Pulse Ox O2 Delivery O2 Flow Rate FiO2 10/08/20 21:22 Room Air 10/08/20 20:00 35.9 84 18 127/77 (94) 97 Capillary Refill : General Appearance: No Apparent Distress, WD/WN, Chronically ill, Obese HEENT: PERRL/EOMI, Normal ENT Inspection, Pharynx Normal Neck: Full Range of Motion, Normal Inspection, Non Tender, Supple, Carotid Bruit Respiratory: Chest Non Tender, Lungs Clear, No Accessory Muscle Use, No Respiratory Distress, Decreased Breath Sounds Cardiovascular: Regular Rate, Rhythm, No Gallop, No JVD, No Murmur, Normal Peripheral Pulses Gastrointestinal: Normal Bowel Sounds, No Organomegaly, No Pulsatile Mass, Non Tender, Soft Back: Normal Inspection, No CVA Tenderness, No Vertebral Tenderness Extremity: Normal Capillary Refill, Normal Inspection, Normal Range of Motion, Non Tender, No Calf Tenderness, Pedal Edema Neurologic/Psychiatric: Alert, Oriented x3, No Motor/Sensory Deficits, border measurer and cutter II- XII Norm as Tested, Abnormal Gait, Depressed Affect, Motor Weakness (generalized 4/5) Skin: Normal Color, Warm/Dry Lymphatic: No Adenopathy Results/Procedures Lab Laboratory Tests 10/08/20 05:35 Patient resulted labs reviewed. FIM Transfers Therapy Code Descriptions/Definitions Functional [place] Measure: 0=Not Assessed/NA 4=Minimal Assistance 1=Total Assistance 5=Supervision or Setup 2=Maximal Assistance 6=Modified [place] 3=Moderate Assistance 7=Complete IndependenceSCALE: Activities may be completed with or without assistive devices. 4-Kbezbrajrn-wvorrlf completes the activity by him/herself with no assistance from a helper. 5-Set-up or Clean-up Assistance-helper sets up or cleans up; patient completes activity. [place] assists only prior to or following the activity. 4-Supervision or Touching Assistance-helper provides verbal cues and/or touching/steadying and/or contact guard assistance as patient completes acti vity. Assistance may be provided throughout the activity or intermittently. 3-Partial/Moderate Assistance-helper does LESS THAN HALF the effort. [place] lifts, holds or supports trunk or limbs, but provides less than half the effort. 2-Substantial/Maximal Assistance-helper does MORE THAN HALF the effort. [place] lifts or holds trunk or limbs and provides more than half the effort. 1-Oyjaaqvvb-yrycjc does ALL the effort. Patient does none of the effort to complete the activity. Or, the assistance of 2 or more helpers is required for the patient to complete the activity. If activity was not attempted, code reason: 7-Patient Refused. 9-Not Applicable-not attempted and the patient did not perform the activity before the current illness, exacerbation or injury. 10-Not Attempted due to Environmental Limitations-(lack of equipment, weather restraints, etc.). 88-Not Attempted due to Medical Conditions or Safety Concerns. Roll Left to Right (QC): 4 Sit to Lying (QC): 4 (takes extra effort and uses the bedrail) Sit to Stand (QC): 6 Chair/Pch-ji-Zlhqa Xfer(QC): 4 Car Transfer (QC): 3 Gait Training Does the Patient Walk?: Yes Distance: 250' x2 Walk 10 feet (QC): 4 Walk 50 ft with 2 Turns(QC): 4 Walk 150 ft (QC): 4 Walking 10ft/uneven surface-QC: 4 Gait Persons Needed: 1 Gait Assistive Device: FWW Wheelchair Training Does the Pt Use a Wheelchair?: No Wheel 50 ft with 2 turns (QC): 9 Wheel 150 ft (QC): 9 Stair Training Stair Training: Handrails/: 2 handrails #of Steps: 4 1 Step (curb) (QC): 5 4 Steps (QC): 4 ( B Handrail with SBA; reciprocal gait) 12 Steps (QC): 88 Stairs: Pattern: Step to Balance Picking up an Object (QC): 88 ADL-Treatment Eating (QC): 6 Oral Hygiene (QC): 6 Shower/Bathe Self (QC): 3 Upper Body Dressing (QC): 5 Lower Body Dressing (QC): 5 On/Off Footwear (QC): 5 Toileting Hygiene (QC): 6 Toilet Transfer (QC): 6 Assessment/Plan Assessment and Plan Assess & Plan/Chief Complaint Assessment: COPD myopathy Severe RIAZ previous untreated causing acute respiratory failure 09/05/20 s/p vent dependence now wearing/tolerating home biPAP machine DM with severe insulin resistance HTN HLP CAD previous stents Angina CRI Spine disease Anemia hgb 11 Thrombocytopenia Plan: IRF protocol Monitor diabetes requires extreme amount of insulin Home meds BiPAP 10/02/20: Monitor O2 IRF therapies Monitor sugar 10/03/20: Monitor pain BiPAP 10/04/20: Monitor O2 Lovenox Sugar and BP management 10/05/20: Monitor O2 Increase stamina 10/06/20: Monitor O2 BiPAP at night 10/07/20: Monitor O2 Labs in am 10/08/20: Monitor closely DC Wed (1) Acute on chronic respiratory failure with hypoxia and hypercapnia (2) Urinary retention (3) Edema (4) Stented coronary artery (5) CAD (coronary artery disease) Status: Acute (6) RIAZ (obstructive sleep apnea) (7) Chronic pain Status: Chronic (8) Renal insufficiency (9) Anxiety Status: Acute (10) Angina pectoris syndrome (11) Diabetes mellitus, insulin dependent (IDDM), uncontrolled Status: Acute IRINEO GONSALEZ DO October 08, 2020 07:19
[2020-10-08 08:00] VITALS: BP 119/55
[2020-10-08] MEDS: ASPIRIN 81 MG CHEW (CHILDREN'S ASA) PO SCH (08:37)
[2020-10-08] MEDS: ENOXAPARIN 40 MG/0.4 ML (LOVENOX) SYR SQ SCH ×2 (08:37→21:19)
[2020-10-08] MEDS: PRASUGREL 10 MG (EFFIENT) TABLET PO SCH (08:37)
[2020-10-08] MEDS: DOCUSATE SODIUM 100 MG (COLACE) CAP PO SCH ×2 (08:37→21:18)
[2020-10-08] MEDS: SENNA W/DOCUSATE (SENOKOT S) TABLET PO SCH ×2 (08:38→21:18)
[2020-10-08] MEDS: polyethylene glycoL POWDER 17 GM (MIRALAX) PACK PO SCH ×2 (08:38→21:19)
[2020-10-08] MEDS: PANTOPRAZOLE 40 MG (PROTONIX) TAB PO SCH (08:38)
[2020-10-08] MEDS: ACETAMINOPHEN 325 MG TABLET PO PRN ×3 (08:41→21:52)
[2020-10-08] MEDS: DICLOFENAC 1% GEL 100 GM (VOLTAREN) TUBE TOP SCH ×3 (08:41→21:21)
--- NOTE | 2020-10-08 09:09 | Cardiology Progress Note ---
Subjective Date Seen by Provider: October 08, 2020 Time Seen by Provider: 08:30 Subjective/Events-last exam Patient is sitting up in chair, Denies any chest pain or dyspnea Review of Systems General: No Chills, No Night Sweats, No Fatigue, No Malaise, No Appetite, No Other HEENT: No Head Aches, No Visual Changes, No Eye Pain, No Ear Pain, No Dysphasia, No Sinus Congestion, No Post Nasal Drip, No Sore Throat, No Other Pulmonary: No Dyspnea, No Cough, No Pleuritic Chest Pain, No Other Cardiovascular: No: Chest Pain, Palpitations, Orthopnea, Paroxysmal Noc. Dyspnea, Edema, Lt Headedness, Other Objective-Cardiology Exam Last Set of Vital Signs Vital Signs 10/08/20 08:00 Temp 36.0 Pulse 58 Resp 14 B/P (MAP) 119/55 (76) Pulse Ox 96 O2 Delivery Room Air Capillary Refill : General: Alert, Oriented X3, Cooperative HEENT: Atraumatic, PERRLA Neck: Supple, No JVD, No Thyromegaly Lungs: Clear to Auscultation, Normal Air Movement Heart: Regular Rate Abdomen: Normal Bowel Sounds, Soft Extremities: No Edema Skin: No Rashes, No Significant Lesion Neuro: Cranial Nerves 3-12 NL Psych/Mental Status: Mental Status NL, Mood NL Results Lab Laboratory Tests 10/08/20 05:35 A/P-Cardiology Admission Diagnosis Chest pain CAD HTN HLP Assessment/Plan S/p Acute respiratory failure, multifactorial, probably due to respiratory suppr ession from CO2 narcosis and pneumonia, was on ventilator for 8 days, transferred to [place], improved. Generalized debility/weakness, continue with PT/OT Chest pain, history of chronic stable angina. Continues to have occasional episode of chest pain. Coronary artery disease, - patient had non-ST elevation myocardial infarction, underwent cardiac catheterization on April 11, 2019 revealing subtotal occlusion with diffuse ectasia in the distal right coronary artery, complex intervention requiring guide liner and multiple balloons, then deployment of Maday 423 mm stent with excellent results. Proximal RCA has diffuse ectasia with 50 percent stenosis, distal right PDA subtotally occluded, fairly small artery, will be treated medically. Severe stenosis at the distal circumflex artery with long lesion involving the obtuse marginal branch, proper circumflex and AV groove branch, a ll arteries are less than 2 mm in diameter. 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 Mild to moderate ectasia in LAD with mild to moderate disease diffusely, nonobstructive disease. Underwent cardiac catheterization on May 03, [address] Cartagena with 2.2532 mm Promus drug-eluting stent to the circumflex artery. Underwent repeat cardiac catheterization on May 21, 2019 revealing multivessel CAD with FFR confirmation of lpx-ljhe-bzuhhmph disease in RCA and flow-limiting disease in mid LAD. Jxg-nsgf-upwsjevy in proximal LAD. [id number] Synergy stent to mid LAD. - Cardiac catheterization done June 10, 2019 with 2.0x 12mm drug eluting Henniker stent to first diagonal. - Cardiac cath on July 18, 2020 revealed moderate to severe ostial ramus intermedius branch that is small to moderate in size. Distal disease, medical therapy is recommended, tortuous LAD with moderate disease in a small diagonal artery that could be responsible for the chest pain, diffuse ectasia in the right coronary artery with patent stent, small vessel disease distally, small vessel disease in the circumflex artery distally, normal left ventricular end- diastolic pressure. Hypertension, controlled on current medications, continue to monitor. Hyperlipidemia, continue pitavastatin, fenofibrate. Repatha as outpatient. DM2, insulin dependent RIAZ, has been noncompliant with CPAP and BiPAP in past, currently tolerating BiPAP H/O right hip/back pain, Tobaccoism, recommend complete cessation. Extensive family history of heart disease and stroke. Patient was seen and evaluated with Shi, has been feeling better, reporting improvement in his symptoms Blood pressure is well controlled. Continue on current medication Monitor blood pressure and lipids Coronary artery disease, extensive history as described above. Supervisory-Addendum Brief Supervisory Addendum Participated in pt care: history, MDM, physical Personally performed: exam, history, MDM Care discussed with: SHI YUSUF October 08, 2020 09:09 ROSS RODRÍUGEZ MD October 08, 2020 10:32
--- NOTE | 2020-10-08 09:34 | Physical Therapy Daily Note ---
PT Daily Note-Current Subjective Pt sitting in recliner upon arrival. Pt agrees to PT. Pt reports feeling much stronger and excited to DC on Thursday (10/10). Pain Location: No Pain Reported Mental Status Patient Orientation: Person, Place, Time, Situation Transfers SCALE: Activities may be completed with or without assistive devices. 0-Cqihddwboi-fcaqsvn completes the activity by him/herself with no assistance from a helper. 5-Set-up or Clean-up Assistance-helper sets up or cleans up; patient completes activity. [place] assists only prior to or following the activity. 4-Supervision or Touching Assistance-helper provides verbal cues and/or touching/steadying and/or contact guard assistance as patient completes activity. Assistance may be provided throughout the activity or intermittently. 3-Partial/Moderate Assistance-helper does LESS THAN HALF the effort. [place] lifts, holds or supports trunk or limbs, but provides less than half the effort. 2-Substantial/Maximal Assistance-helper does MORE THAN HALF the effort. [place] lifts or holds trunk or limbs and provides more than half the effort. 3-Udardlnrf-ufjgwj does ALL the effort. Patient does none of the effort to complete the activity. Or, the assistance of 2 or more helpers is required for the patient to complete the activity. If activity was not attempted, code reason: 7-Patient Refused. 9-Not Applicable-not attempted and the patient did not perform the activity before the current illness, exacerbation or injury. 10-Not Attempted due to Environmental Limitations-(lack of equipment, weather restraints, etc.). 88-Not Attempted due to Medical Conditions or Safety Concerns. Sit to Stand (QC): 6 Weight Bearing Full Weight Bearing Full Weight Bearing Gait Training Does the Patient Walk?: Yes Distance: 450', 150' Walk 10 feet (QC): 6 Walk 50 ft with 2 Turns(QC): 6 Walk 150 ft (QC): 5 Gait Persons Needed: 1 Gait Assistive Device: Cane Single Point Pt's brought pt's SPC to him over the weekend. Pt able to amb. using SPC, taking RB as needed. Wheelchair Training Does the Pt Use a Wheelchair?: No Treatments [id number]: TF to standing, declines needing BR. Pt amb. in hallway using SPC, taking RB as needed. Pt returns to room and practiced Ad edil in room with SPC. Pt will now be Ad edil in room. Pt resting in recliner with all needs met, call light in hand. [id number]: TF to standing and amb. in hallway. Pt practices stairs with and w/o cane. Pt also practices household tasks including reaching. Pt returns to room at end of tx with all need met, call light in hand. Assessment Current Status: Good Progress Pt has progressed to SPC and is walking well. Pt takes occasional RB as needed for fatigue. Pt is made Ad edil in room since moving well. PT Short Term Goals Short Term Goals Time Frame: October 08, 2020 Sit to lyin Lying to sitting on side of be: 4 Sit to stand: 4 (met) Walk 150 feet: 4 (met) PT Correction Goals Correction Goals PT Correction Goals Time Frame: October 19, 2020 Roll Left & Right (QC): 6 Sit to Lying (QC): 6 Lying-Sitting on Side/Bed(QC): 6 Sit to Stand (QC): 6 Chair/Dgq-hx-Iilxp Xfer(QC): 6 Toilet Transfer (QC): 6 Car Transfer (QC): 6 Does the Patient Walk: Yes Walk 10 feet (QC): 6 Walk 50ft with 2 Turns (QC): 6 Walk 150 ft (QC): 6 Walking 10ft on Uneven Surface: 6 1 Step (curb) (QC): 6 4 Steps (QC): 6 12 Steps (QC): 4 Picking up an Object (QC): 4 Does the Pt use WC or Scooter?: No Wheel 50 feet with 2 turns (QC: 9 Wheel 150 feet: 9 PT Plan Treatment/Plan Treatment Plan: Continue Plan of Care Treatment Plan: Bed Mobility, Education, Functional Activity Neri, Functional Strength, Group Therapy, Gait, Safety, Therapeutic Exercise, Transfers Treatment Duration: October 19, 2020 Frequency: At least 5 of 7 days/Wk (IRF) Estimated Hrs Per Day: 1.5 hours per day Patient and/or Family Agrees t: Yes Safety Risks/Education Patient Education: Steps, Correct Positioning, Safety Issues Teaching Recipient: Patient Teaching Methods: Discussion Response to Teaching: Verbalize Understanding Time/GCodes Time In: 845 Time Out: 1515 Total Billed Treatment Time: 90 Total Billed Treatment [id number]: 1, GT x2 (30m) & FA (15m) [id number]: 1, GT (15m) & FA x2 (30m) STEFAN SIFUENTES AUDIO DIRECTOR October 08, 2020 09:34
--- NOTE | 2020-10-08 12:58 | Occupational Ther Daily Note ---
OT Current Status-Daily Note Subjective Pt alert, sitting in recliner. Pt up ad edil in room. Pt agrees to therapy. No c/o pain. Mental Status/Objective Patient Orientation: Person, Place, Time, Situation Attachments: IV ADL-Treatment 1st session ([id number]): Pt agrees to shower. Pt gathered and transported clothing using SPC. Pt completed shower independently using shower bench, grabbars and hand held shower. Independent with toileting. Independent with oral care. Independent with dressing. Therapy Code Descriptions/Definitions Functional [place] Measure: 0=Not Assessed/NA 4=Minimal Assistance 1=Total Assistance 5=Supervision or Setup 2=Maximal Assistance 6=Modified [place] 3=Moderate Assistance 7=Complete IndependenceSCALE: Activities may be completed with or without assistive devices. 2-Scvxcwirir-cgbmlen completes the activity by him/herself with no assistance from a helper. 5-Set-up or Clean-up Assistance-helper sets up or cleans up; patient completes activity. [place] assists only prior to or following the activity. 4-Supervision or Touching Assistance-helper provides verbal cues and/or touching/steadying and/or contact guard assistance as patient completes activity. Assistance may be provided throughout the activity or intermittently. 3-Partial/Moderate Assistance-helper does LESS THAN HALF the effort. [place] lifts, holds or supports trunk or limbs, but provides less than half the effort. 2-Substantial/Maximal Assistance-helper does MORE THAN HALF the effort. [place] lifts or holds trunk or limbs and provides more than half the effort. 4-Mfiwgjjdx-gyfzfq does ALL the effort. Patient does none of the effort to complete the activity. Or, the assistance of 2 or more helpers is required for the patient to complete the activity. If activity was not attempted, code reason: 7-Patient Refused. 9-Not Applicable-not attempted and the patient did not perform the activity before the current illness, exacerbation or injury. 10-Not Attempted due to Environmental Limitations-(lack of equipment, weather restraints, etc.). 88-Not Attempted due to Medical Conditions or Safety Concerns. Eating (QC): 6 Oral Hygiene (QC): 6 Shower/Bathe Self (QC): 6 Upper Body Dressing (QC): 6 Lower Body Dressing (QC): 6 On/Off Footwear: 6 Toileting Hygiene (QC): 6 Toilet Transfer (QC): 6 Other Treatment 1st session([id number]): Pt ambulated around ARU using SPC independently. Required one recovery break during ambulation. After therapy, pt sitting in recliner with call light/phone in reach. All needs met in room. 2nd session([id number]): Pt propelled w/c around hospital to increase B UE strength for daily functional tasks. Pt propelled w/c from 2nd to 4th floor to visit his mother, who was admitted today. Pt tolerated B UE and did not required recovery breaks. After session, pt sitting in recliner with call light/phone in reach. All needs met in room. OT Short Term Goals Short Term Goals Time Frame: October 15, 2020 Oral hygiene: 5 Shower/bathe self: 5 Upper body dressin Lower body dressin Putting on/taking off footwear: 5 OT [facility] Goals Supervisor [employer] Loading Goals Time Frame: Oct 26, 2020 Eating (QC): 6 (met) Oral Hygiene (QC): 6 (me) Toileting Hygiene (QC): 6 (met) Shower/Bathe Self (QC): 6 (met) Upper Body Dressing (QC): 6 (met) Lower Body Dressing (QC): 6 (met) On/Off Footwear (QC): 6 (met) Additional Goals: 1-Demonstrate ADL Tasks, 2-Verbalize Understanding, 3- ImproveStrength/Neri 1=Demonstrate adherence to instructed precautions during ADL tasks. 2=Patient will verbalize/demonstrate understanding of assistive devices/modifications for ADL. 3=Patient will improve strength/tolerance for activity to enable patient to perform ADL's. OT Education/Plan Problem List/Assessment Assessment: Decreased Activ Tolerance Discharge Recommendations Plan/Recommendations: Continue POC Treatment Plan/Plan of Care Patient would benefit from OT for education, treatment and training to promote independence in ADL's, mobility, safety and/or upper extremity function for ADL's. Plan of Care: ADL Retraining, Functional Mobility, Group Exercise/Act as Ind, UE Funct Exercise/Act Treatment Duration: Oct 26, 2020 Frequency: At least 5 of 7 days/Wk (IRF) Estimated Hrs Per Day: 1 hour per day Agreement: Yes Rehab Potential: Good Time/GCodes Start Time: 11:00 Stop Time: 12:00 Total Time Billed (hr/min): 90 Billed Treatment Time 1 visit([id number]): ADL 3 (50 min) FA 1 (10 min) 1 visit([id number]): EX 2 (30 min) GENO FERREIRA October 08, 2020 12:58
[2020-10-08] MEDS ORDERED: CHOL500050 PO (16:07)
[2020-10-08] MEDS ORDERED: ALLO300T2 PO (16:07)
[2020-10-08] MEDS ORDERED: FENO134C PO (16:07)
[2020-10-08] MEDS ORDERED: ISOS30TA82 PO (16:07)
[2020-10-08] MEDS ORDERED: FURO40TA4 PO (16:07)
[2020-10-08] MEDS ORDERED: PRAS10TA10 PO (16:07)
[2020-10-08] MEDS ORDERED: HYDR-3584 PO (16:07)
[2020-10-08] MEDS ORDERED: ASCO100024 PO (16:07)
[2020-10-08] MEDS ORDERED: EVOL140P3 SQ (16:07)
[2020-10-08] MEDS ORDERED: LISI10TA25 PO (16:07)
[2020-10-08] MEDS ORDERED: DOCU250C11 PO (16:07)
[2020-10-08] MEDS ORDERED: MAGN400T39 PO (16:07)
[2020-10-08] MEDS ORDERED: UBID200C16 PO (16:07)
[2020-10-08] MEDS ORDERED: ASPI-1238 PO (16:07)
[2020-10-08] MEDS ORDERED: CARV3.122 PO (16:07)
[2020-10-08] MEDS ORDERED: MULT200T12 PO (16:07)
[2020-10-08] MEDS ORDERED: NITR0.4T39 SL (16:07)
[2020-10-08] MEDS ORDERED: GABA300C PO ×2 (16:07)
[2020-10-08] MEDS ORDERED: MONT10TA32 PO (16:07)
[2020-10-08] MEDS ORDERED: PITA4TAB2 PO (16:07)
[2020-10-08] MEDS ORDERED: ZINC50TA58 PO (16:07)
[2020-10-08] MEDS ORDERED: BACL10TA PO (16:07)
[2020-10-08] MEDS ORDERED: INSU500I SQ (16:07)
[2020-10-08] MEDS ORDERED: FEXO-46 PO (16:07)
[2020-10-08] MEDS ORDERED: OMEG1CAP PO (16:07)
[2020-10-08] MEDS ORDERED: UBID100C44 PO (16:07)
[2020-10-08] MEDS: TAMSULOSIN 0.4 MG (FLOMAX) CAP PO SCH (18:07)
[2020-10-08 20:00] VITALS: BP 127/77
[2020-10-09] MEDS: inSUlin ASPART (NovoLOG) 1 UNIT/0.01 ML (CHARGE PER UNIT) SC SCH ×4 (05:35→21:00)
[2020-10-09] MEDS: CATHETER FLUSH 10 ML SYR IV SCH ×3 (06:09→22:49)
[2020-10-09] MEDS: inSUlin (REGULAR) HUMAN 1 UNIT/0.01 ML (CHARGE PER UNIT) SC SCH ×4 (06:38→21:06)
--- NOTE | 2020-10-09 07:09 | PM&R Progress Note ---
Subjective HPI/CC On Admission Date Seen by Provider: October 09, 2020 Time Seen by Provider: 08:30 Subjective/Events-last exam 10/09/20: Pt set for DC tomorrow Overall ready Walked with his around the unit yesterday Feels really good 10/08/20: Pt is discharged on Thursday Labs look okay Doing well Bowels moved yesterday, laxatives ordered Pain pill has helped him 10/07/20: Doing well Less dyspneic Monitoring pain Sugars good 10/06/20: Ambulating well No pain reported except his chronic back pain BiPAP use every night 10/05/20: Improved each day Strength improved Less dyspnea Sugar was 92 and he felt low 10/04/20: Doing well Gaining strength BM+ Lovenox maintained Sugar and BP stable 10/03/20: Patient doing well Decreased appetite noted Flomax has helped him voiding BiPAP at night 10/02/20: Pt had a much better night Took a pain pill and Melatonin Baclofen will be ordered Has lost 70lbs since admission on 09/05/20 Pain pill with the Melatonin seemed to work well so we will continue that regimen Compression stockings with MASHA wraps over will be initiated for the edema Review of Systems General: Fatigue, Malaise Neurological: Weakness Objective Exam Vital Signs Vital Signs Date Time Temp Pulse Resp B/P (MAP) Pulse Ox O2 Delivery O2 Flow Rate FiO2 10/09/20 21:18 95 Room Air 10/09/20 19:50 36.3 88 18 125/76 (92) Capillary Refill : General Appearance: No Apparent Distress, WD/WN, Chronically ill, Obese HEENT: PERRL/EOMI, Normal ENT Inspection, Pharynx Normal Neck: Full Range of Motion, Normal Inspection, Non Tender, Supple, Carotid Bruit Respiratory: Chest Non Tender, Lungs Clear, No Accessory Muscle Use, No Respiratory Distress, Decreased Breath Sounds Cardiovascular: Regular Rate, Rhythm, No Gallop, No JVD, No Murmur, Normal Peripheral Pulses Gastrointestinal: Normal Bowel Sounds, No Organomegaly, No Pulsatile Mass, Non Tender, Soft Back: Normal Inspection, No CVA Tenderness, No Vertebral Tenderness Extremity: Normal Capillary Refill, Normal Inspection, Normal Range of Motion, Non Tender, No Calf Tenderness, Pedal Edema Neurologic/Psychiatric: Alert, Oriented x3, No Motor/Sensory Deficits, chain mender II- XII Norm as Tested, Abnormal Gait, Depressed Affect, Motor Weakness (generalized 4/5) Skin: Normal Color, Warm/Dry Lymphatic: No Adenopathy Results/Procedures Lab Patient resulted labs reviewed. FIM Transfers Therapy Code Descriptions/Definitions Functional [place] Measure: 0=Not Assessed/NA 4=Minimal Assistance 1=Total Assistance 5=Supervision or Setup 2=Maximal Assistance 6=Modified [place] 3=Moderate Assistance 7=Complete IndependenceSCALE: Activities may be completed with or without assistive devices. 9-Dyteykxptd-wdarxqc completes the activity by him/herself with no assistance from a helper. 5-Set-up or Clean-up Assistance-helper sets up or cleans up; patient completes activity. [place] assists only prior to or following the activity. 4-Supervision or Touching Assistance-helper provides verbal cues and/or touching/steadying and/or contact guard assistance as patient completes activity. Assistance may be provided throughout the activity or intermittently. 3-Partial/Moderate Assistance-helper does LESS THAN HALF the effort. [place] l ifts, holds or supports trunk or limbs, but provides less than half the effort. 2-Substantial/Maximal Assistance-helper does MORE THAN HALF the effort. [place] lifts or holds trunk or limbs and provides more than half the effort. 8-Elivgtzra-suepms does ALL the effort. Patient does none of the effort to complete the activity. Or, the assistance of 2 or more helpers is required for t he patient to complete the activity. If activity was not attempted, code reason: 7-Patient Refused. 9-Not Applicable-not attempted and the patient did not perform the activity before the current illness, exacerbation or injury. 10-Not Attempted due to Environmental Limitations-(lack of equipment, weather restraints, etc.). 88-Not Attempted due to Medical Conditions or Safety Concerns. Roll Left to Right (QC): 4 Sit to Lying (QC): 4 (takes extra effort and uses the bedrail) Sit to Stand (QC): 6 Chair/Pyr-wi-Wioes Xfer(QC): 4 Car Transfer (QC): 3 Gait Training Does the Patient Walk?: Yes Distance: 450', 150' Walk 10 feet (QC): 6 Walk 50 ft with 2 Turns(QC): 6 Walk 150 ft (QC): 5 Walking 10ft/uneven surface-QC: 4 Gait Persons Needed: 1 Gait Assistive Device: Cane Single Point Wheelchair Training Does the Pt Use a Wheelchair?: No Wheel 50 ft with 2 turns (QC): 9 Wheel 150 ft (QC): 9 Stair Training Stair Training: Handrails/: 2 handrails #of Steps: 4 1 Step (curb) (QC): 5 4 Steps (QC): 4 ( B Handrail with SBA; reciprocal gait) 12 Steps (QC): 88 Stairs: Pattern: Step to Balance Picking up an Object (QC): 88 ADL-Treatment Eating (QC): 6 Oral Hygiene (QC): 6 Shower/Bathe Self (QC): 6 Upper Body Dressing (QC): 6 Lower Body Dressing (QC): 6 On/Off Footwear (QC): 6 Toileting Hygiene (QC): 6 Toilet Transfer (QC): 6 Assessment/Plan Assessment and Plan Assess & Plan/Chief Complaint Assessment: COPD myopathy Severe RIAZ previous untreated causing acute respiratory failure 09/05/20 s/p vent dependence now wearing/tolerating home biPAP machine DM with severe insulin resistance HTN HLP CAD previous stents Angina CRI Spine disease Anemia hgb 11 Thrombocytopenia Plan: IRF protocol Monitor diabetes requires extreme amount of insulin Home meds BiPAP 10/02/20: Monitor O2 IRF therapies Monitor sugar 10/03/20: Monitor pain BiPAP 10/04/20: Monitor O2 Lovenox Sugar and BP management 10/05/20: Monitor O2 Increase stamina 10/06/20: Monitor O2 BiPAP at night 10/07/20: Monitor O2 Labs in am 10/08/20: Monitor closely DC 10/09/20: DC tomorrow Monitor closely (1) Acute on chronic respiratory failure with hypoxia and hypercapnia (2) Urinary retention (3) Edema (4) Stented coronary artery (5) CAD (coronary artery disease) Status: Acute (6) RIAZ (obstructive sleep apnea) (7) Chronic pain Status: Chronic (8) Renal insufficiency (9) Anxiety Status: Acute (10) Angina pectoris syndrome (11) Diabetes mellitus, insulin dependent (IDDM), uncontrolled Status: Acute IRINEO GONSALEZ DO October 09, 2020 07:09
[2020-10-09 08:00] VITALS: BP 142/94
[2020-10-09] MEDS ORDERED: CARV12.53 PO (08:59)
[2020-10-09] MEDS ORDERED: TMSL.4C PO (08:59)
[2020-10-09] MEDS ORDERED: INSU500I SQ (08:59)
[2020-10-09] MEDS ORDERED: INSU100V5 SQ (08:59)
[2020-10-09] MEDS ORDERED: HYDR-3817 PO (08:59)
--- NOTE | 2020-10-09 09:01 | D/C HH Face to Face Order ---
D/C Face to Face Orders Reconcile Patient Problems Problems Reviewed?: Yes Instructions for Patient Via [facility], Patient Instructions/FollowUp: Dr Stevens 1 week Physician to follow Patient: Hilda Discharge Diet for Home: ADA Diet Patient Problems: s/p resp failure Patient Data-Allergies,Ht & Wt Patient Allergies: Coded Allergies: No Known Drug Allergies (Unverified , 12/29/19) Height (Feet): 5 Height (Inches): 11.00 Weight (Pounds): 260 Weight (Ounces): 8.0 Home Health Need/Face to Face Date of Face to Face: October 09, 2020 Clinical Findings: Generalized weakness and fatigue, Instability, Muscle weakness, Shortness of breath I have seen Pt sxek-ra-wfef: Yes Discharged To: Home Diagnosis/Conditions: s/p resp failure Patient is Homebound due to: [place]iley fall risk due to instabilty, Muscle weakness, Shortness of breath/distress Homebound Status Due to the above stated illness, injury or surgical procedure (medical condition or diagnosis) and associated clinical findings, the patient is homebound because of his/her inability to leave home except with aid of a supportive device and/or person AND leaving the home requires a considerable and taxing effort or is medically contraindicated. Pt req the following assistanc: Bi Home Health Nursing Orders Home Health Services Order: Nursing Services, Disability Attorney-Evaluate & Treat, Physical Therapy-Evaluate & Treat Certify Stmt I certify that this patient is under my care and that I, a nurse practitioner or a physician; a assistant store director working with me, had a face to face encounter that - meets the physician face to face encounter requirements with this patient as dated. IRINEO STEVENS DO October 09, 2020 09:01
--- NOTE | 2020-10-09 09:28 | Physical Therapy Daily Note ---
PT Daily Note-Current Subjective Pt sitting in recliner upon arrival. Pt agrees to PT. Pt reports enjoying Ad edil in room. Pain Location: No Pain Reported Mental Status Patient Orientation: Person, Place, Time, Situation Transfers SCALE: Activities may be completed with or without assistive devices. 8-Nfljuyotgl-sisxdpu completes the activity by him/herself with no assistance from a helper. 5-Set-up or Clean-up Assistance-helper sets up or cleans up; patient completes activity. [place] assists only prior to or following the activity. 4-Supervision or Touching Assistance-helper provides verbal cues and/or touching/steadying and/or contact guard assistance as patient completes activity. Assistance may be provided throughout the activity or intermittently. 3-Partial/Moderate Assistance-helper does LESS THAN HALF the effort. [place] lifts, holds or supports trunk or limbs, but provides less than half the effort. 2-Substantial/Maximal Assistance-helper does MORE THAN HALF the effort. [place] lifts or holds trunk or limbs and provides more than half the effort. 7-Wvlcwefol-dkgtqe does ALL the effort. Patient does none of the effort to complete the activity. Or, the assistance of 2 or more helpers is required for the patient to complete the activity. If activity was not attempted, code reason: 7-Patient Refused. 9-Not Applicable-not attempted and the patient did not perform the activity before the current illness, exacerbation or injury. 10-Not Attempted due to Environmental Limitations-(lack of equipment, weather restraints, etc.). 88-Not Attempted due to Medical Conditions or Safety Concerns. Roll Left & Right (QC): 6 Sit to Lying (QC): 6 Lying to Sitting/Side of Bed(Q: 6 Sit to Stand (QC): 6 Chair/Sin-fz-Zhxmo Xfer(QC): 6 Toilet Transfer (QC): 6 Car Transfer (QC): 6 Weight Bearing Full Weight Bearing Full Weight Bearing Gait Training Does the Patient Walk?: Yes Distance: 450', 150' Walk 10 feet (QC): 6 Walk 50 ft with 2 Turns(QC): 6 Walk 150 ft (QC): 6 Walking 10ft/uneven surface-QC: 6 Gait Persons Needed: 1 Gait Assistive Device: Cane Single Point Wheelchair Training Does the Pt Use a Wheelchair?: No Stair Training Stair Training: Handrails/: 1 handrail, uses cane #of Steps: 8 1 Step (curb) (QC): 6 4 Steps (QC): 6 12 Steps (QC): 7 Stairs: Pattern: Reciprocal Balance Picking up an Object (QC): 7 Special Test Comments Pt reports it is uncomfortable on back to bend over. Pt has several reachers at home to use. Treatments Pt completes QC scoring items listed above. Pt returns to room to rest at end o f tx. All needs met, call light in hand. Assessment Current Status: Excellent Progress Pt is greatly improved with strength and activity tolerance. PT Short Term Goals Short Term Goals Time Frame: October 08, 2020 Sit to lyin Lying to sitting on side of be: 4 Sit to stand: 4 (met) Walk 150 feet: 4 (met) PT Retirement Goals Head Packager Goals PT Retirement Goals Time Frame: October 19, 2020 Roll Left & Right (QC): 6 Sit to Lying (QC): 6 Lying-Sitting on Side/Bed(QC): 6 Sit to Stand (QC): 6 Chair/Qbk-lq-Idznd Xfer(QC): 6 Toilet Transfer (QC): 6 Car Transfer (QC): 6 Does the Patient Walk: Yes Walk 10 feet (QC): 6 Walk 50ft with 2 Turns (QC): 6 Walk 150 ft (QC): 6 Walking 10ft on Uneven Surface: 6 1 Step (curb) (QC): 6 4 Steps (QC): 6 12 Steps (QC): 4 Picking up an Object (QC): 4 Does the Pt use WC or Scooter?: No Wheel 50 feet with 2 turns (QC: 9 Wheel 150 feet: 9 PT Plan Treatment/Plan Treatment Plan: Continue Plan of Care Treatment Plan: Bed Mobility, Education, Functional Activity Neri, Functional Strength, Group Therapy, Gait, Safety, Therapeutic Exercise, Transfers Treatment Duration: October 19, 2020 Frequency: At least 5 of 7 days/Wk (IRF) Estimated Hrs Per Day: 1.5 hours per day Patient and/or Family Agrees t: Yes Time/GCodes Time In: 845 Time Out: 930 Total Billed Treatment Time: 45 Total Billed Treatment 1, GT (15m) & FA x2 (30m) STEFAN SIFUENTES BAGGAGE PORTER October 09, 2020 09:28
[2020-10-09] MEDS: DOCUSATE SODIUM 100 MG (COLACE) CAP PO SCH ×2 (09:34→21:00)
[2020-10-09] MEDS: ASPIRIN 81 MG CHEW (CHILDREN'S ASA) PO SCH (09:34)
[2020-10-09] MEDS: PANTOPRAZOLE 40 MG (PROTONIX) TAB PO SCH (09:35)
[2020-10-09] MEDS: PRASUGREL 10 MG (EFFIENT) TABLET PO SCH (09:35)
[2020-10-09] MEDS: SENNA W/DOCUSATE (SENOKOT S) TABLET PO SCH ×2 (09:35→21:00)
[2020-10-09] MEDS: ACETAMINOPHEN 325 MG TABLET PO PRN (09:36)
[2020-10-09] MEDS: BACLOFEN 10 MG (LIORESAL) TAB PO PRN ×2 (09:36→21:02)
[2020-10-09] MEDS: ENOXAPARIN 40 MG/0.4 ML (LOVENOX) SYR SQ SCH ×2 (09:36→21:05)
[2020-10-09] MEDS: DICLOFENAC 1% GEL 100 GM (VOLTAREN) TUBE TOP SCH ×3 (09:37→21:12)
[2020-10-09] MEDS: polyethylene glycoL POWDER 17 GM (MIRALAX) PACK PO SCH ×2 (09:37→21:00)
--- NOTE | 2020-10-09 11:47 | Cardiology Progress Note ---
Subjective Date Seen by Provider: October 09, 2020 Time Seen by Provider: 11:45 Subjective/Events-last exam Patient was seen during PT session, doing well, no new complaint Review of Systems General: No Chills, No Night Sweats; Fatigue; No Malaise, No Appetite, No Other HEENT: No Head Aches, No Visual Changes, No Eye Pain, No Ear Pain, No Dysphasia, No Sinus Congestion, No Post Nasal Drip, No Sore Throat, No Other Pulmonary: Dyspnea; No Cough, No Pleuritic Chest Pain, No Other Cardiovascular: No: Chest Pain, Palpitations, Orthopnea, Paroxysmal Noc. Dyspnea, Edema, Lt Headedness, Other Objective-Cardiology Exam Last Set of Vital Signs Vital Signs 10/09/20 08:00 Temp 35.6 Pulse 97 Resp 18 B/P (MAP) 142/94 (110) Pulse Ox 97 O2 Delivery Room Air Capillary Refill : General: Alert, Oriented X3, Cooperative HEENT: Atraumatic, PERRLA Neck: Supple, No JVD, No Thyromegaly Lungs: Clear to Auscultation, Normal Air Movement Heart: Regular Rate, Normal S1, Normal S2 Abdomen: Normal Bowel Sounds, Soft Extremities: No Clubbing, No Cyanosis, No Edema Skin: No Rashes, No Significant Lesion Neuro: Normal Speech, Cranial Nerves 3-12 NL Psych/Mental Status: Mental Status NL, Mood NL A/P-Cardiology Admission Diagnosis Chest pain CAD HTN HLP Assessment/Plan S/p Acute respiratory failure, multifactorial, probably due to respiratory suppression from CO2 narcosis and pneumonia, was on ventilator for 8 days, transferred to [place], improved. Generalized debility/weakness, continue with PT/OT Chest pain, history of chronic stable angina. Continues to have occasional episode of chest pain. Coronary artery disease, - Patient had non-ST elevation myocardial infarction, underwent cardiac catheterization on April 11, 2019 revealing subtotal occlusion with diffuse ectasia in the distal right coronary artery, complex intervention requiring guide liner and multiple balloons, then deployment of Maday 423 mm stent with excellent results. Proximal RCA has diffuse ectasia with 50 percent stenosis, distal right PDA subtotally occluded, fairly small artery, will be treated medically. Severe stenosis at the distal circumflex artery with long lesion involving the obtuse marginal branch, proper circumflex and AV groove branch, all arteries are less than 2 mm in diameter. 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 Mild to moderate ectasia in LAD with mild to moderate disease diffusely, nonobstructive disease. Underwent cardiac catheterization on May 03, [address] Cartagena with 2.2532 mm Promus drug-eluting stent to the circumflex artery. Underwent repeat cardiac catheterization on May 21, 2019 revealing multivessel CAD with FFR confirmation of kkg-aqfi-oapmyutu disease in RCA and flow-limiting disease in m id LAD. Lps-vyps-uiiwjppw in proximal LAD. [id number] Synergy stent to mid LAD. - Cardiac catheterization done June 10, 2019 with 2.0x 12mm drug eluting [place] stent to first diagonal. - Cardiac cath on July 18, 2020 revealed moderate to severe ostial ramus intermedius branch that is small to moderate in size. Distal disease, medical therapy is recommended, tortuous LAD with moderate disease in a small diagonal artery that could be responsible for the chest pain, diffuse ectasia in the right coronary artery with patent stent, small vessel disease distally, small vessel disease in the circumflex artery distally, normal left ventricular end- diastolic pressure. Hypertension, controlled on current medications, continue to monitor. Hyperlipidemia, continue pitavastatin, fenofibrate. Repatha as outpatient. DM2, insulin dependent RIAZ, has been noncompliant with CPAP and BiPAP in past, currently tolerating BiPAP H/O right hip/back pain, Tobaccoism, recommend complete cessation. Extensive family history of heart disease and stroke. Ok for discharge and follow up in 2 weeks as an outpatient ROSS RODRÍGUEZ MD October 09, 2020 11:47
--- NOTE | 2020-10-09 11:59 | Occupational Ther Daily Note ---
OT Current Status-Daily Note Subjective Pt alert, sitting in recliner. Pt up ad edil in room. No c/o pain. Agrees to therapy. Mental Status/Objective Patient Orientation: Person, Place, Time, Situation Attachments: IV (midline) ADL-Treatment 1st session([id number]): Pt up ad edil in room and completed all grooming and dressing independently. Pt ambulated using SPC to therapy gym. Completed wrist flex/ext/uln dev/rad dev exercises with 3# wt 3 sets 10 reps. Pt then completed ulnar/radial nerve glides to decrease pain and tingling in R hand. Pt demonstrated understanding of each exercise, 10 reps holding 5-10 sec each rep. Pt then ambulated around ARU using SPC and required 1 recovery break. After session, pt sitting in recliner with call light/phone in reach. All needs met in room. Therapy Code Descriptions/Definitions Functional [place] Measure: 0=Not Assessed/NA 4=Minimal Assistance 1=Total Assistance 5=Supervision or Setup 2=Maximal Assistance 6=Modified [place] 3=Moderate Assistance 7=Complete IndependenceSCALE: Activities may be completed with or without assistive devices. 4-Dxtthaplek-zhpmcbc completes the activity by him/herself with no assistance from a helper. 5-Set-up or Clean-up Assistance-helper sets up or cleans up; patient completes activity. [place] assists only prior to or following the activity. 4-Supervision or Touching Assistance-helper provides verbal cues and/or touching/steadying and/or contact guard assistance as patient completes activity. Assistance may be provided throughout the activity or intermittently. 3-Partial/Moderate Assistance-helper does LESS THAN HALF the effort. [place] lifts, holds or supports trunk or limbs, but provides less than half the effort. 2-Substantial/Maximal Assistance-helper does MORE THAN HALF the effort. [place] lifts or holds trunk or limbs and provides more than half the effort. 2-Lpqhtbmhz-nfniqf does ALL the effort. Patient does none of the effort to complete the activity. Or, the assistance of 2 or more helpers is required for the patient to complete the activity. If activity was not attempted, code reason: 7-Patient Refused. 9-Not Applicable-not attempted and the patient did not perform the activity before the current illness, exacerbation or injury. 10-Not Attempted due to Environmental Limitations-(lack of equipment, weather restraints, etc.). 88-Not Attempted due to Medical Conditions or Safety Concerns. Other Treatment 2nd session([id number]): Co-treat with PT ([id number]) to work on high level balance and increased ambulation distances to increase safety, strength and activity tolerance. No LOB noted throughout treatment. Pt ambulated onto/off of elevators, through doorways, across thresholds, down inclines, up stairs and over rock. Pt took multiple recovery breaks throughout session. After session, pt in room. Left in care of PT. All needs met in room. OT Short Term Goals Short Term Goals Time Frame: October 15, 2020 Oral hygiene: 5 Shower/bathe self: 5 Upper body dressin Lower body dressin Putting on/taking off footwear: 5 OT Chcf Goals Chcf Goals Time Frame: Oct 26, 2020 Eating (QC): 6 (met) Oral Hygiene (QC): 6 (me) Toileting Hygiene (QC): 6 (met) Shower/Bathe Self (QC): 6 (met) Upper Body Dressing (QC): 6 (met) Lower Body Dressing (QC): 6 (met) On/Off Footwear (QC): 6 (met) Additional Goals: 1-Demonstrate ADL Tasks, 2-Verbalize Understanding, 3- ImproveStrength/Neri 1=Demonstrate adherence to instructed precautions during ADL tasks. 2=Patient will verbalize/demonstrate understanding of assistive devices/modifications for ADL. 3=Patient will improve strength/tolerance for activity to enable patient to perform ADL's. OT Education/Plan Problem List/Assessment Assessment: Decreased Activ Tolerance Discharge Recommendations Plan/Recommendations: Continue POC Treatment Plan/Plan of Care Patient would benefit from OT for education, treatment and training to promote independence in ADL's, mobility, safety and/or upper extremity function for ADL's. Plan of Care: ADL Retraining, Functional Mobility, Group Exercise/Act as Ind, UE Funct Exercise/Act Treatment Duration: Oct 26, 2020 Frequency: At least 5 of 7 days/Wk (IRF) Estimated Hrs Per Day: 1 hour per day Agreement: Yes Rehab Potential: Good Time/GCodes Start Time: 11:00 (1245) Stop Time: 12:00 (1315) Total Time Billed (hr/min): 90 Billed Treatment Time 1 visit(0602-0621)-ADL 1 (10 min) EX 3 (50 min) 1 visit(4619-0709)-FA 2 (30 min) co-treat with PT [id number] GENO FERREIRA October 09, 2020 11:59
--- NOTE | 2020-10-09 13:41 | Physical Therapy Daily Note ---
PT Daily Note-Current Subjective Pt sitting in recliner upon arrival. Pt agrees to PT/OT co-treat. Pain Location: No Pain Reported Mental Status Patient Orientation: Person, Place, Time, Situation Transfers SCALE: Activities may be completed with or without assistive devices. 9-Okwtvavmjr-mbfrkbo completes the activity by him/herself with no assistance from a helper. 5-Set-up or Clean-up Assistance-helper sets up or cleans up; patient completes activity. [place] assists only prior to or following the activity. 4-Supervision or Touching Assistance-helper provides verbal cues and/or touching/steadying and/or contact guard assistance as patient completes activity. Assistance may be provided throughout the activity or intermittently. 3-Partial/Moderate Assistance-helper does LESS THAN HALF the effort. [place] lifts, holds or supports trunk or limbs, but provides less than half the effort. 2-Substantial/Maximal Assistance-helper does MORE THAN HALF the effort. [place] lifts or holds trunk or limbs and provides more than half the effort. 0-Xyoabjthu-jyjkmr does ALL the effort. Patient does none of the effort to complete the activity. Or, the assistance of 2 or more helpers is required for the patient to complete the activity. If activity was not attempted, code reason: 7-Patient Refused. 9-Not Applicable-not attempted and the patient did not perform the activity before the current illness, exacerbation or injury. 10-Not Attempted due to Environmental Limitations-(lack of equipment, weather restraints, etc.). 88-Not Attempted due to Medical Conditions or Safety Concerns. Sit to Stand (QC): 6 Weight Bearing Full Weight Bearing Full Weight Bearing Gait Training Does the Patient Walk?: Yes Distance: 500' Walk 10 feet (QC): 6 Walk 50 ft with 2 Turns(QC): 6 Walk 150 ft (QC): 6 Walking 10ft/uneven surface-QC: 6 Gait Persons Needed: 1 Gait Assistive Device: Cane Single Point Wheelchair Training Does the Pt Use a Wheelchair?: Yes Wheel 50 ft with 2 turns (QC): 6 Wheel 150 ft (QC): 6 Type of Wheelchair: Manual Stair Training Stair Training: Handrails/: 1 handrail, uses cane #of Steps: 3 1 Step (curb) (QC): 6 Stairs: Pattern: Reciprocal Treatments 2nd session([id number]): Co-treat with PT ([id number]) to work on high level balance and increased ambulation distances to increase safety, strength and activity tolerance. No LOB noted throughout treatment. Pt ambulated onto/off of elevators, through doorways, across thresholds, down inclines, up stairs and over rock. Pt took multiple recovery breaks throughout session. OT departs and PT continues with pt. Pt returns to room and rests in recliner. Pt has all needs met, call light in hand. Assessment Current Status: Excellent Progress Pt has made great improvements with strength, activity tolerance and independence of tasks. PT Short Term Goals Short Term Goals Time Frame: October 08, 2020 Sit to lyin Lying to sitting on side of be: 4 Sit to stand: 4 (met) Walk 150 feet: 4 (met) PT Cvor Nurse Goals Usp Goals PT Usp Goals Time Frame: October 19, 2020 Roll Left & Right (QC): 6 Sit to Lying (QC): 6 Lying-Sitting on Side/Bed(QC): 6 Sit to Stand (QC): 6 Chair/Emy-op-Wgpop Xfer(QC): 6 Toilet Transfer (QC): 6 Car Transfer (QC): 6 Does the Patient Walk: Yes Walk 10 feet (QC): 6 Walk 50ft with 2 Turns (QC): 6 Walk 150 ft (QC): 6 Walking 10ft on Uneven Surface: 6 1 Step (curb) (QC): 6 4 Steps (QC): 6 12 Steps (QC): 4 Picking up an Object (QC): 4 Does the Pt use WC or Scooter?: No Wheel 50 feet with 2 turns (QC: 9 Wheel 150 feet: 9 PT Plan Treatment/Plan Treatment Plan: Continue Plan of Care Treatment Plan: Bed Mobility, Education, Functional Activity Neri, Functional Strength, Group Therapy, Gait, Safety, Therapeutic Exercise, Transfers Treatment Duration: October 19, 2020 Frequency: At least 5 of 7 days/Wk (IRF) Estimated Hrs Per Day: 1.5 hours per day Patient and/or Family Agrees t: Yes Time/GCodes Time In: 1245 Time Out: 1330 Total Billed Treatment Time: 45 Total Billed Treatment 1, GT x2 (30m) & FA (15m) STEFAN SIFUENTES CARDIOLOGY ASSOCIATE October 09, 2020 13:41
[2020-10-09] MEDS: TAMSULOSIN 0.4 MG (FLOMAX) CAP PO SCH (17:05)
[2020-10-09 19:50] VITALS: BP 125/76
[2020-10-10] MEDS: inSUlin ASPART (NovoLOG) 1 UNIT/0.01 ML (CHARGE PER UNIT) SC SCH ×2 (06:00→11:22)
[2020-10-10] MEDS: CATHETER FLUSH 10 ML SYR IV SCH (06:24)
[2020-10-10] MEDS: inSUlin (REGULAR) HUMAN 1 UNIT/0.01 ML (CHARGE PER UNIT) SC SCH ×2 (06:24→12:29)
[2020-10-10] MEDS: BACLOFEN 10 MG (LIORESAL) TAB PO PRN (06:25)
[2020-10-10] MEDS: ACETAMINOPHEN 325 MG TABLET PO PRN (06:27)
[2020-10-10 08:00] VITALS: BP 126/78
[2020-10-10] MEDS: ASPIRIN 81 MG CHEW (CHILDREN'S ASA) PO SCH (08:24)
[2020-10-10] MEDS: PRASUGREL 10 MG (EFFIENT) TABLET PO SCH (08:25)
[2020-10-10] MEDS: polyethylene glycoL POWDER 17 GM (MIRALAX) PACK PO SCH (08:25)
[2020-10-10] MEDS: PANTOPRAZOLE 40 MG (PROTONIX) TAB PO SCH (08:25)
[2020-10-10] MEDS: HYDROcodone/APAP 7.5 MG/325 MG (LORTAB, LORCET PLUS) TABLET PO PRN ×2 (08:25→12:29)
[2020-10-10] MEDS: ENOXAPARIN 40 MG/0.4 ML (LOVENOX) SYR SQ SCH (08:35)
[2020-10-10] MEDS: SENNA W/DOCUSATE (SENOKOT S) TABLET PO SCH (08:35)
[2020-10-10] MEDS: DOCUSATE SODIUM 100 MG (COLACE) CAP PO SCH (08:35)
[2020-10-10] MEDS: DICLOFENAC 1% GEL 100 GM (VOLTAREN) TUBE TOP SCH (08:36)
--- NOTE | 2020-10-10 08:51 | Cardiology Progress Note ---
Subjective Date Seen by Provider: October 10, 2020 Time Seen by Provider: 08:35 Subjective/Events-last exam Pt appears comfortable sitting up in chair. Is excited to go home today and has ride planned for 12:00. Denies any new cardiac complaints and plans to f/u at Dr. Núñez's office in 2 weeks. Review of Systems General: No Chills, No Night Sweats HEENT: No Head Aches, No Visual Changes Pulmonary: No Dyspnea, No Cough Cardiovascular: No: Chest Pain, Palpitations Gastrointestinal: No: Nausea, Vomiting Genitourinary: No Dysuria, No Frequency Musculoskeletal: No: neck pain, shoulder pain Neurological: No: Weakness, Numbness Objective-Cardiology Exam Last Set of Vital Signs Vital Signs 10/10/20 12:47 Temp 35.8 Pulse 93 Resp 16 B/P (MAP) 126/78 Pulse Ox 96 O2 Delivery Room Air Capillary Refill : General: Alert, Oriented X3, Cooperative HEENT: Atraumatic, PERRLA Neck: Supple, No JVD, No Thyromegaly Lungs: Clear to Auscultation, Normal Air Movement Heart: Regular Rate, Normal S1, Normal S2 Abdomen: Normal Bowel Sounds, Soft Extremities: No Clubbing, No Cyanosis, No Edema Skin: No Rashes, No Significant Lesion Neuro: Normal Speech, Cranial Nerves 3-12 NL Psych/Mental Status: Mental Status NL, Mood NL A/P-Cardiology Admission Diagnosis Chest pain CAD HTN HLP Assessment/Plan S/p Acute respiratory failure, multifactorial, probably due to respiratory suppression from CO2 narcosis and pneumonia, was on ventilator for 8 days, transferred to [place], improved. Generalized debility/weakness, recommended outpatient PT Chest pain, history of chronic stable angina. Continues to have occasional episode of chest pain. Coronary artery disease, - Patient had non-ST elevation myocardial infarction, underwent cardiac catheterization on April 11, 2019 revealing subtotal occlusion with diffuse ectasia in the distal right coronary artery, complex intervention requiring guide liner and multiple balloons, then deployment of Maday 423 mm stent with excellent results. Proximal RCA has diffuse ectasia with 50 percent stenosis, distal right PDA subtotally occluded, fairly small artery, will be treated medically. Severe stenosis at the distal circumflex artery with long lesion involving the obtuse marginal branch, proper circumflex and AV groove branch, all arteries are less than 2 mm in diameter. 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 Mild to moderate ectasia in LAD with mild to moderate disease diffusely, nonobstructive disease. Underwent cardiac catheterization on May 03, [address] Cartagena with 2.2532 mm Promus drug-eluting stent to the circumflex artery. Underwent repeat cardiac catheterization on May 21, 2019 revealing multivessel CAD with FFR confirmation of pqi-hhhq-cxsfmhrd disease in RCA and flow-limiting disease in mid LAD. Tpl-oxov-mkjojrsj in proximal LAD. [id number] Synergy stent to mid LAD. - Cardiac catheterization done June 10, 2019 with 2.0x 12mm drug eluting Cristopher stent to first diagonal. - Cardiac cath on July 18, 2020 revealed moderate to severe ostial ramus intermedius branch that is small to moderate in size. Distal disease, medical therapy is recommended, tortuous LAD with moderate disease in a small diagonal artery that could be responsible for the chest pain, diffuse ectasia in the right coronary artery with patent stent, small vessel disease distally, small vessel disease in the circumflex artery distally, normal left ventricular end- diastolic pressure. Hypertension, controlled on current medications, continue to monitor. Hyperlipidemia, continue pitavastatin, fenofibrate. Repatha as outpatient. DM2, insulin dependent RIAZ, has been noncompliant with CPAP and BiPAP in past, currently tolerating BiPAP H/O right hip/back pain, Tobaccoism, recommend complete cessation. Extensive family history of heart disease and stroke. Ok for discharge today and follow up in 2 weeks as an outpatient Supervisory-Addendum Brief Verification & Attestation Participated in pt care: history, MDM, physical Personally performed: exam, history, MDM, supervision of care Care discussed with: Medical Student Procedures: n/a Results interpretation: Verified all documentation Verification and Attestation of Medical Student E/M Service A medical student performed and documented this service in my presence. I reviewed and verified all information documented by the medical student and made modifications to such information, when appropriate. I personally performed the physical exam and medical decision making. Mary Núñez, October 10, 2020,14:25 DAVID JACKSON MED STUDENT October 10, 2020 08:51 MARY NÚÑEZ MD October 10, 2020 14:25
--- NOTE | 2020-10-10 09:02 | Discharge Summary ---
Diagnosis/Chief Complaint Date of Admission October 01, 2020 at 11:20 Date of Discharge Discharge Date: October 10, 2020 Discharge Diagnosis Assessment: COPD myopathy Severe RIAZ previous untreated causing acute respiratory failure 09/05/20 s/p vent dependence now wearing/tolerating home biPAP machine DM with severe insulin resistance HTN HLP CAD previous stents Angina CRI Spine disease Anemia hgb 11 Thrombocytopenia Plan: IRF protocol Monitor diabetes requires extreme amount of insulin Home meds BiPAP 10/02/20: Monitor O2 IRF therapies Monitor sugar 10/03/20: Monitor pain BiPAP 10/04/20: Monitor O2 Lovenox Sugar and BP management 10/05/20: Monitor O2 Increase stamina 10/06/20: Monitor O2 BiPAP at night 10/07/20: Monitor O2 Labs in am 10/08/20: Monitor closely DC 10/09/20: DC tomorrow Monitor closely (1) Acute on chronic respiratory failure with hypoxia and hypercapnia (2) Urinary retention (3) Edema (4) Stented coronary artery (5) CAD (coronary artery disease) Status: Acute (6) RIAZ (obstructive sleep apnea) (7) Chronic pain Status: Chronic (8) Renal insufficiency (9) Anxiety Status: Acute (10) Angina pectoris syndrome (11) Diabetes mellitus, insulin dependent (IDDM), uncontrolled Status: Acute Discharge Summary Discharge Physical Examination Allergies: Coded Allergies: No Known Drug Allergies (Unverified , 12/29/19) Vitals & I&Os Vital Signs Date Time Temp Pulse Resp B/P (MAP) Pulse Ox O2 Delivery O2 Flow Rate FiO2 10/10/20 12:47 35.8 93 16 126/78 96 Room Air General Appearance: Alert, Oriented X3, Cooperative Respiratory: Clear to Auscultation Cardiovascular: Regular Rate Neuro: Normal Gait, Normal Speech, Strength at 5/5 X4 Ext Psych/Mental Status: Mental Status NL Hospital Course Was the Problem List Reviewed?: Yes Hospital course: Pt had an uneventful hospital course for ten days after he was moved from [place] after vent-dependent respiratory failure due to noncompliance with BiPAP for years. Pt overall had no concerns, we did minimize his insulin because of a 70lb weight loss he had, he decreased the need for as much insulin as he was taking, of 240 units before meals of regular insulin. Overall he did very well, he was set for discharge with home care and BiPAP use and he was doing well at time of discharge. Labs (last 24 hrs) Laboratory Tests 10/01/20 15:29: Glucometer 224H 10/01/20 20:18: Glucometer 250H 10/02/20 03:30: Glucometer 166H 10/02/20 05:42: Glucometer 154H 10/02/20 06:14: White Blood Count 8.5, Red Blood Count 3.48L, Hemoglobin 11.0L, Hematocrit 33L, Mean Corpuscular Volume 95, Mean Corpuscular Hemoglobin 32, Mean Corpuscular Hemoglobin Concent 33, Red Cell Distribution Width 13.6, Platelet Count 103L, Mean Platelet Volume 11.2, Immature Granulocyte % (Auto) 1, Neutrophils (%) (Auto) 80H, Lymphocytes (%) (Auto) 9L, Monocytes (%) (Auto) 9, Eosinophils (%) (Auto) 1, Basophils (%) (Auto) 0, Neutrophils # (Auto) 6.9, Lymphocytes # (Auto) 0.8L, Monocytes # (Auto) 0.8, Eosinophils # (Auto) 0.0, Basophils # (Auto) 0.0, Immature Granulocyte # (Auto) 0.0, Sodium Level 137, Potassium Level 3.6, Chloride Level 103, Carbon Dioxide Level 23, Anion Gap 11, Blood Urea Nitrogen 9, Creatinine 0.74, Estimat Glomerular Filtration Rate > 60, BUN/Creatinine Ratio 12, Glucose Level 170H, Calcium Level 8.6, Corrected Calcium 9.4, Total Bi lirubin 1.7H, Aspartate Amino Transf (AST/SGOT) 25, Alanine Aminotransferase (ALT/SGPT) 47, Alkaline Phosphatase 73, Total Protein 5.8L, Albumin 3.0L 10/02/20 10:52: Glucometer 159H 10/02/20 15:20: Glucometer 189H 10/02/20 20:11: Glucometer 198H 10/03/20 05:24: Glucometer 155H 10/03/20 11:01: Glucometer 161H 10/03/20 16:51: Glucometer 161H 10/03/20 20:08: Glucometer 190H 10/04/20 06:08: Glucometer 133H 10/05/20 01:23: Glucometer 92 10/08/20 05:35: White Blood Count 5.5, Red Blood Count 3.57L, Hemoglobin 11.1L, Hematocrit 34L, Mean Corpuscular Volume 94, Mean Corpuscular Hemoglobin 31, Mean Corpuscular Hemoglobin Concent 33, Red Cell Distribution Width 13.4, Platelet Count 205, Mean Platelet Volume 10.1, Immature Granulocyte % (Auto) 2, Neutrophils (%) (Auto) 58, Lymphocytes (%) (Auto) 25, Monocytes (%) (Auto) 13H, Eosinophils (%) (Auto) 1, Basophils (%) (Auto) 1, Neutrophils # (Auto) 3.2, Lymphocytes # (Auto) 1.4, Monocytes # (Auto) 0.7, Eosinophils # (Auto) 0.1, Basophils # (Auto) 0.0, Immature Granulocyte # (Auto) 0.1, Sodium Level 141, Potassium Level 3.6, Chloride Level 105, Carbon Dioxide Level 25, Anion Gap 11, Blood Urea Nitrogen 11, Creatinine 0.88, Estimat Glomerular Filtration Rate > 60, BUN/Creatinine Ratio 13, Glucose Level 105, Calcium Level 9.2, Corrected Calcium 9.8, Total Bilirubin 0.6, Aspartate Amino Transf (AST/SGOT) 23, Alanine Aminotransferase ( ALT/SGPT) 34, Alkaline Phosphatase 64, Total Protein 6.3L, Albumin 3.2 Pending Labs Laboratory Tests 10/01/20 15:29: Glucometer 224 10/01/20 20:18: Glucometer 250 10/02/20 03:30: Glucometer 166 10/02/20 05:42: Glucometer 154 10/02/20 06:14: White Blood Count 8.5, Red Blood Count 3.48, Hemoglobin 11.0, Hematocrit 33, Mean Corpuscular Volume 95, Mean Corpuscular Hemoglobin 32, Mean Corpuscular Hemoglobin Concent 33, Red Cell Distribution Width 13.6, Platelet Count 103, Mean Platelet Volume 11.2, Immature Granulocyte % (Auto) 1, Neutrophils (%) (Auto) 80, Lymphocytes (%) (Auto) 9, Monocytes (%) (Auto) 9, Eosinophils (%) (Auto) 1, Basophils (%) (Auto) 0, Neutrophils # (Auto) 6.9, Lymphocytes # (Auto) 0.8, Monocytes # (Auto) 0.8, Eosinophils # (Auto) 0.0, Basophils # (Auto) 0.0, Immature Granulocyte # (Auto) 0.0, Sodium Level 137, Potassium Level 3.6, Chloride Level 103, Carbon Dioxide Level 23, Anion Gap 11, Blood Urea Nitrogen 9, Creatinine 0.74, Estimat Glomerular Filtration Rate > 60, BUN/Creatinine Ratio 12, Glucose Level 170, Calcium Level 8.6, Corrected Calcium 9.4, Total Bilirubin 1.7, Aspartate Amino Transf (AST/SGOT) 25, Alanine Aminotransferase (ALT/SGPT) 47, Alkaline Phosphatase 73, Total Protein 5.8, Albumin 3.0 10/02/20 10:52: Glucometer 159 10/02/20 15:20: Glucometer 189 10/02/20 20:11: Glucometer 198 10/03/20 05:24: Glucometer 155 10/03/20 11:01: Glucometer 161 10/03/20 16:51: Glucometer 161 10/03/20 20:08: Glucometer 190 10/04/20 06:08: Glucometer 133 10/05/20 01:23: Glucometer 92 10/08/20 05:35: White Blood Count 5.5, Red Blood Count 3.57, Hemoglobin 11.1, Hematocrit 34, Mean Corpuscular Volume 94, Mean Corpuscular Hemoglobin 31, Mean Corpuscular Hemoglobin Concent 33, Red Cell Distribution Width 13.4, Platelet Count 205, Mean Platelet Volume 10.1, Immature Granulocyte % (Auto) 2, Neutrophils (%) (Auto) 58, Lymphocytes (%) (Auto) 25, Monocytes (%) (Auto) 13, Eosinophils (%) (Auto) 1, Basophils (%) (Auto) 1, Neutrophils # (Auto) 3.2, Lymphocytes # (Auto) 1.4, Monocytes # (Auto) 0.7, Eosinophils # (Auto) 0.1, Basophils # (Auto) 0.0, Immature Granulocyte # (Auto) 0.1, Sodium Level 141, Potassium Level 3.6, Chloride Level 105, Carbon Dioxide Level 25, Anion Gap 11, Blood Urea Nitrogen 11, Creatinine 0.88, Estimat Glomerular Filtration Rate > 60, BUN/Creatinine Ratio 13, Glucose Level 105, Calcium Level 9.2, Corrected Calcium 9.8, Total Bilirubin 0.6, Aspartate Amino Transf (AST/SGOT) 23, Alanine Aminotransferase (ALT/SGPT) 34, Alkaline Phosphatase 64, Total Protein 6.3, Albumin 3.2 Discharge Home Medications: Active Scripts Active Levemir (Insulin Determir) 1,000 Units/10 Ml Soln 15 Unit SQ BID 7 Days Carvedilol 12.5 Mg Tablet 25 Mg PO BID Flomax (Tamsulosin HCl) 0.4 Mg Cap 0.4 Mg PO 1800 Humulin R U-500 Kwikpen (Insulin Regular, Human) 500 Unit/1 Ml Insuln.pen 10 Unit SQ AC 7 Days Hydrocodone-Acetamin 7.5-325 (Hydrocodone/Acetaminophen) 1 Each Tablet 1 Each PO Q6H PRN Reported Zinc 50 Mg Tablet 50 Mg PO DAILY Co Q-10 (Ubidecarenone) 100 Mg Capsule 100 Mg PO DAILY TAKES 200MG +100MG TOGETHER TO EQUAL 300MG Co Q-10 (Ubidecarenone) 200 Mg Capsule 200 Mg PO DAILY TAKES 200MG +100MG TOGETHER TO EQUAL 300MG Prasugrel HCl 10 Mg Tablet 10 Mg PO DAILY Livalo (Pitavastatin Calcium) 4 Mg Tablet 4 Mg PO HS Lovaza (Tuttle-3 Acid Ethyl Esters) 1 Gm Capsule 2 Gm PO BID TAKES 2 (1GM) CAPS Nitroglycerin 0.4 Mg Tab.subl 0.4 Mg SL UD PRN Multivitamin Gummies (Multivit-Minerals/Folic Acid) 200 Mcg Tab.chew 400 Mcg PO DAILY Montelukast Sodium 10 Mg Tablet 10 Mg PO HS Magnesium (Magnesium Oxide) 400 Mg Tablet 400 Mg PO BIDAC Lisinopril 10 Mg Tablet 10 Mg PO DAILY Isosorbide Mononitrate ER (Isosorbide Mononitrate) 30 Mg Tab.er.24h 30 Mg PO DAILY Neurontin (Gabapentin) 300 Mg Capsule 1,500 Mg PO HS TAKES 5 (300MG) CAPS Neurontin (Gabapentin) 300 Mg Capsule 300 Mg PO DAILY Furosemide 40 Mg Tablet 40 Mg PO DAILY Fexofenadine HCl 180 Mg Tablet 180 Mg PO DAILY Fenofibrate (Fenofibrate,Micronized) 134 Mg Capsule 134 Mg PO HS Repatha Sureclick (Evolocumab) 140 Mg/1 Ml Pen.injctr 140 Mg SQ EVERY 2 WEEKS Docusate Sodium 250 Mg Capsule 250 Mg PO HS Vitamin D3 (Cholecalciferol (Vitamin D3)) 125 Mcg Capsule 125 Mcg PO DAILY Baclofen 10 Mg Tablet 10 Mg PO TID PRN Vitamin C (Ascorbic Acid) 1,000 Mg Tablet 1,000 Mg PO BID Allopurinol 300 Mg Tablet 300 Mg PO DAILY Hydroxyzine HCl 10 Mg Tablet 10 Mg PO Q6H PRN Aspirin EC (Aspirin) 81 Mg Tablet.dr 81 Mg PO DAILY Tylenol (Acetaminophen) 325 Mg Capsule 650 Mg PO Q4H PRN Pantoprazole Sodium 40 Mg Tablet.dr 40 Mg PO BID Instructions to patient/family Please see electronic discharge instructions given to patient. Diagnosis/Problems Diagnosis/Problems (1) Acute on chronic respiratory failure with hypoxia and hypercapnia (2) Urinary retention (3) Edema (4) Stented coronary artery (5) CAD (coronary artery disease) Status: Acute (6) RIAZ (obstructive sleep apnea) (7) Chronic pain Status: Chronic (8) Renal insufficiency (9) Anxiety Status: Acute (10) Angina pectoris syndrome (11) Diabetes mellitus, insulin dependent (IDDM), uncontrolled Status: Acute IRINEO GONSALEZ DO October 10, 2020 09:02
--- NOTE | 2020-10-10 09:35 | Therapy Team Discharge Summary ---
Therapy Discharge Summary Discharge Recommendations Date of Discharge Occupational Therapy Pt admitted to ARU with debility. At [facility], pt was independent with ADLs using AE as needed, and independent with functional mobility without AD. Upon initial evaluation, pt was independent with eating and oral care, requires SBA showering, set up assistance upper body dressing, min A lower body dressing, min A footwear and min A toileting. OT txs focused on increasing BUE Strength and activity tolerance, and increasing safety and independence with ADLs. Pt made good functional progress, meeting all LTGs and was independent with all ADLs. Pt to d/c from facility on this date, d/c from OT at this time. Decreased Activ Tolerance PT Bottle Selector Goals Bottle Selector Goals PT [facility] Goals Time Frame: October 19, 2020 Roll Left to Right (QC): 6 Sit to Lying (QC): 6 Lying-Sitting on Side/Bed(QC): 6 Sit to Stand (QC): 6 Chair/Ztn-kj-Tsqqo Xfer(QC): 6 Car Transfer (QC): 6 Does the Patient Walk: Yes Walk 10 feet (QC): 6 Walk 10ft-Uneven Surface(QC): 6 Walk 50ft with 2 Turns (QC): 6 Walk 150 ft (QC): 6 Does the Pt use WC or Scooter?: No Wheel 50 feet with 2 turns (QC: 9 1 Step (curb) (QC): 6 4 Steps (QC): 6 12 Steps (QC): 4 Picking up an Object (QC): 4 OT Penitentiary Goals Bottle Selector Goals Time Frame: Oct 26, 2020 Eating (QC): 6 (met) Oral Hygiene (QC): 6 (me) Shower/Bathe Self (QC): 6 (met) Upper Body Dressing (QC): 6 (met) Lower Body Dressing (QC): 6 (met) On/Off Footwear (QC): 6 (met) Toileting Hygiene (QC): 6 (met) Toilet/Commode Transfer (QC): 6 Additional Goals: 1-Demonstrate ADL Tasks, 2-Verbalize Understanding, 3- ImproveStrength/Neri 1=Demonstrate adherence to instructed precautions during ADL tasks. 2=Patient will verbalize/demonstrate understanding of assistive devices/modifications for ADL. 3=Patient will improve strength/tolerance for activity to enable patient to perform ADL's. JENNIFER ZAMORA OT October 10, 2020 09:35
[2020-10-10 12:47] VITALS: BP 126/78
--- NOTE | 2020-10-10 16:03 | Therapy Team Discharge Summary ---
Therapy Discharge Summary Discharge Recommendations Date of Discharge October 10, 2020 at 12:50 Physical Therapy Patient came to rehab with debility. Upon evaluation patient performed bed mobility with SBA, sit to lying with CGA/SBA, supine to sit with min assist, sit to stand mod assist, transfers CGA, car transfer min/mod assist, ambulated 150' with a rolling walker with CGA (including 50' with at least 2 turns of 90 degrees but needed min assist for 10' over an uneven surface), and went up and down 1 step using a rolling walker with min assist. Patient has been performing bed mobility and transfer training, balance and endurance training, functional strengthening, stair training, gait training, and education. Patient has made good progress and has met all of his alf goals except for 12 steps and picking up an object from the floor. Now, patient performs bed mobility and transfers with independence, car transfer independent, ambulates 450' with a SPC with independence (including 50' with at least 2 turns of 90 degrees and 10' over an uneven surface), and can go up and down 8 steps using 1 handrail and SPC with independence. Patient was discharged from this facility today and will be discharged from PT at this time. Occupational Therapy Decreased Activ Tolerance PT Hotel Guest Service Agent Goals Half-Way Goals PT Hotel Guest Service Agent Goals Time Frame: October 19, 2020 Roll Left to Right (QC): 6 Sit to Lying (QC): 6 Lying-Sitting on Side/Bed(QC): 6 Sit to Stand (QC): 6 Chair/Azq-sf-Qvdnm Xfer(QC): 6 Car Transfer (QC): 6 Does the Patient Walk: Yes Walk 10 feet (QC): 6 Walk 10ft-Uneven Surface(QC): 6 Walk 50ft with 2 Turns (QC): 6 Walk 150 ft (QC): 6 Does the Pt use WC or Scooter?: No Wheel 50 feet with 2 turns (QC: 9 1 Step (curb) (QC): 6 4 Steps (QC): 6 12 Steps (QC): 4 Picking up an Object (QC): 4 OT Half-Way Goals Hotel Guest Service Agent Goals Time Frame: Oct 26, 2020 Eating (QC): 6 (met) Oral Hygiene (QC): 6 (me) Shower/Bathe Self (QC): 6 (met) Upper Body Dressing (QC): 6 (met) Lower Body Dressing (QC): 6 (met) On/Off Footwear (QC): 6 (met) Toileting Hygiene (QC): 6 (met) Toilet/Commode Transfer (QC): 6 Additional Goals: 1-Demonstrate ADL Tasks, 2-Verbalize Understanding, 3-ImproveStrength/Neri 1=Demonstrate adherence to instructed precautions during ADL tasks. 2=Patient will verbalize/demonstrate understanding of assistive devices/modifications for ADL. 3=Patient will improve strength/tolerance for activity to enable patient to perform ADL's. TRACI MARTINES PT October 10, 2020 16:03
== END 2020-10-10 12:50 | disposition home health service (06) | DRG 93 ==
PROVIDERS: ADMIT Internal Medicine; ATTEND Internal Medicine
DX: G72.89 Other specified myopathies (principal); I25.119 Atherosclerotic heart disease of native coronary artery with unspecified angina pectoris; G47.33 Obstructive sleep apnea (adult) (pediatric); Z91.19 Patient's noncompliance with other medical treatment and regimen; I12.9 Hypertensive chronic kidney disease with stage 1 through stage 4 chronic kidney disease, or unspecified chronic kidney disease; E11.22 Type 2 diabetes mellitus with diabetic chronic kidney disease; N18.9 Chronic kidney disease, unspecified; Z79.4 Long term (current) use of insulin; E11.40 Type 2 diabetes mellitus with diabetic neuropathy, unspecified; E11.8 Type 2 diabetes mellitus with unspecified complications; E78.5 Hyperlipidemia, unspecified; E78.00 Pure hypercholesterolemia, unspecified; D69.6 Thrombocytopenia, unspecified; M47.9 Spondylosis, unspecified; N40.0 Benign prostatic hyperplasia without lower urinary tract symptoms; K59.09 Other constipation; M10.9 Gout, unspecified; F41.9 Anxiety disorder, unspecified; F32.9 Major depressive disorder, single episode, unspecified; Z95.5 Presence of coronary angioplasty implant and graft; Z87.01 Personal history of pneumonia (recurrent); I25.2 Old myocardial infarction; Z79.82 Long term (current) use of aspirin; Z83.6 Family history of other diseases of the respiratory system; Z83.3 Family history of diabetes mellitus; Z82.49 Family history of ischemic heart disease and other diseases of the circulatory system
CPT/HCPCS: 36415; 80053; 82947; 85025; 94760

== ENCOUNTER → 2020-11-06 | Outpatient (CLI) | payer MEDICARE, OTHER ==
[~2020-11-06] MED LIST changes: +ACET325C7 PO; +ASCO100024 PO; +ASPI-999 PO; +CARV12.53 PO; +CHOL500050 PO; +CRV25T PO; +DICL100G18 TOP; +DOCU250C11 PO; +ENOX40DI8 SQ; +EVOL140P3 SQ; +INSU100V39 SQ; +INSU100V5 SQ; +INSU100V6 SQ; +IPRA3AMP31 IH; +PHEN30SP8 MM; +RT-ALBUTEROL SULF 2.5 MG/3 ML PRE-MIX VIAL INH ONE; +SIME80TA16 PO; +TMSL.4C PO
== END ==
LOC: RT 13:00
PROVIDERS: ATTEND Nurse Practitioner Family
DX: R06.00 Dyspnea, unspecified (principal)
CPT/HCPCS: 94060; 94726; 94729

== ENCOUNTER 2020-11-22 20:41 | Emergency (ER) | payer MEDICARE, OTHER ==
[~2020-11-22] VITALS: Ht 182.9 cm; Wt 120.0 kg
[~2020-11-22 20:41] MED LIST changes: -DICL100G31 TOP; +NF-LOVAZAC PO; -OMEG1CAP PO; -OMEP40CA27 PO; +OMEP40CA6 PO; -RT-ALBUTEROL SULF 2.5 MG/3 ML PRE-MIX VIAL INH ONE
[2020-11-22] MEDS ORDERED: ASPIRIN 81 MG CHEW (CHILDREN'S ASA) PO ONE (21:00)
[2020-11-22] MEDS ORDERED: fentaNYL INJ 100 MCG/2 ML AMP IVP ONE (21:00)
--- NOTE | 2020-11-22 21:05 | ED Chest Pain ---
General Chief Complaint: Chest Pain Stated Complaint: CHEST PAIN Source: patient Exam Limitations: no limitations (ALYSSIA PATEL APRN) History of Present Illness Date Seen by Provider: Nov 22, 2020 Time Seen by Provider: 20:59 Initial Comments This obese diabetic male with history of hypertension, diabetes, obstructive sleep apnea, coronary artery disease presents to ER with reports of pain in the mid thoracic back sharp in nature that radiates forward to the center of his chest. He has chronic unchanged shortness of breath. Recently has several coronary stents placed here by Dr. Núñez and at [place]. He is on aspirin and Effient. His pain is rated at 9 out of 10. 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 Timing/Duration: 4-6 hours Severity/Quality: moderate, sharp Location: central Radiation: no radiation Activities at Onset: none Prior CP/Workup: no prior chest pain (ALYSSIA PATEL APRN) Allergies and Home Medications Allergies Coded Allergies: No Known Drug Allergies (Unverified , 12/29/19) Home Medications Acetaminophen 325 Mg Capsule, 650 MG PO Q4H PRN for PAIN-MILD (1-4) OR TEMPATURE, (Reported) Allopurinol 300 Mg Tablet, 300 MG PO DAILY, (Reported) Ascorbic Acid 1,000 Mg Tablet, 1,000 MG PO BID, (Reported) Aspirin 81 Mg Tablet.dr, 81 MG PO DAILY, (Reported) Baclofen 10 Mg Tablet, 10 MG PO TID PRN for SPASMS, (Reported) Carvedilol 12.5 Mg Tablet, 25 MG PO BID Prescribed by: IRINEO GONSALEZ on 10/09/20 0859 Cholecalciferol (Vitamin D3) 125 Mcg Capsule, 125 MCG PO DAILY, (Reported) Docusate Sodium 250 Mg Capsule, 250 MG PO HS, (Reported) Evolocumab 140 Mg/1 Ml Pen.injctr, 140 MG SQ EVERY 2 WEEKS, (Reported) Fenofibrate,Micronized 134 Mg Capsule, 134 MG PO HS, (Reported) Fexofenadine HCl 180 Mg Tablet, 180 MG PO DAILY, (Reported) Furosemide 40 Mg Tablet, 40 MG PO DAILY, (Reported) Gabapentin 300 Mg Capsule, 300 MG PO DAILY, (Reported) Gabapentin 300 Mg Capsule, 1,500 MG PO HS, (Reported) TAKES 5 (300MG) CAPS Hydrocodone/Acetaminophen 1 Each Tablet, 1 EACH PO Q6H PRN for PAIN-MODERATE (5- 7) Prescribed by: IRINEO GONSALEZ on 10/09/20 0900 Hydroxyzine HCl 10 Mg Tablet, 10 MG PO Q6H PRN for ANXIETY, (Reported) Insulin Determir 1,000 Units/10 Ml Soln, 15 UNIT SQ BID Prescribed by: IRINEO GONSALEZ on 10/09/20 08 Insulin Regular, Human 500 Unit/1 Ml Insuln.pen, 10 UNIT SQ AC Prescribed by: IRINEO GONSALEZ on 10/09/20 0859 Isosorbide Mononitrate 30 Mg Tab.er.24h, 30 MG PO DAILY, (Reported) Lisinopril 10 Mg Tablet, 10 MG PO DAILY, (Reported) Magnesium Oxide 400 Mg Tablet, 400 MG PO BIDAC, (Reported) Montelukast Sodium 10 Mg Tablet, 10 MG PO HS, (Reported) Multivit-Minerals/Folic Acid 200 Mcg Tab.chew, 400 MCG PO DAILY, (Reported) Nitroglycerin 0.4 Mg Tab.subl, 0.4 MG SL UD PRN for CHEST PAIN, (Reported) [place]-3 Acid Ethyl Esters 1 Gm Capsule, 2 GM PO BID, (Reported) TAKES 2 (1GM) CAPS Pantoprazole Sodium 40 Mg Tablet.dr, 40 MG PO BID, (Reported) Pitavastatin Calcium 4 Mg Tablet, 4 MG PO HS, (Reported) Prasugrel HCl 10 Mg Tablet, 10 MG PO DAILY, (Reported) Tamsulosin HCl 0.4 Mg Cap, 0.4 MG PO 1800 Prescribed by: IRINEO GONSALEZ on 10/09/20 0859 Ubidecarenone 200 Mg Capsule, 200 MG PO DAILY, (Reported) TAKES 200MG +100MG TOGETHER TO EQUAL 300MG Ubidecarenone 100 Mg Capsule, 100 MG PO DAILY, (Reported) TAKES 200MG +100MG TOGETHER TO EQUAL 300MG Zinc 50 Mg Tablet, 50 MG PO DAILY, (Reported) Patient Home Medication List Home Medication List Reviewed: Yes (ALYSSIA PATEL APRN) Review of Systems Review of Systems Constitutional: see HPI EENTM: No Symptoms Reported Respiratory: See HPI, Shortness of Air Cardiovascular: See HPI, Chest Pain Gastrointestinal: No Symptoms Reported Genitourinary: No Symptoms Reported Musculoskeletal: no symptoms reported Skin: no symptoms reported Psychiatric/Neurological: No Symptoms Reported Endocrine: No Symptoms Reported Hematologic/Lymphatic: No Symptoms Reported (ALYSSIA PATEL APRN) Past Joxiuks-Hpqkli-Ykupor Hx Immunizations Up To Date Tetanus Booster (TDap): Unknown PED Vaccines UTD: No (ALYSSIA PATEL APRN) Seasonal Allergies Seasonal Allergies: Yes (ALYSSIA PATEL APRN) Past Medical History Surgeries: Yes Orthopedic Respiratory: Yes Pneumonia, Sleep Apnea, COPD Currently Using CPAP: No Currently Using BIPAP: Yes Cardiac: Yes (NSTEMI 03/2019; STENTS X 4) Chronic Edema/Swelling, Coronary Artery Disease, High Cholesterol, Hypertension Neurological: Yes Neuropathy Reproductive Disorders: No Sexually Transmitted Disease: No HIV/AIDS: No Genitourinary: Yes (CHRONIC RENAL INSUFFICIENCY) Benign Prostatic Hyperpl, Bladder Infection, Renal Failure Gastrointestinal: Yes Chronic Constipation Musculoskeletal: Yes Degenerate Disk Disease, Arthritis, Gout Endocrine: Yes (OBESITY) Diabetes, Insulin dep HEENT: No Tonsilitis Loss of Vision: Denies Hearing Impairment: Denies Cancer: No Psychosocial: Yes Anxiety, Depression Integumentary: No Blood Disorders: No Adverse Reaction/Blood Tranf: No (N/A) (ALYSSIA PATEL APRN) Family Medical History Abdominal aortic aneurysm 09 BROTHER Cancer 03 MOTHER Cancer of colon 03 MOTHER 09 SISTER 19 MOTHER FH: COPD (chronic obstructive pulmonary disease) 19 FATHER FH: leukemia 09 SISTER 19 MOTHER FHx: stroke 19 FATHER Family history: Diabetes mellitus 09 BROTHER 09 SISTER 09 SISTER 09 SISTER Family history: Gastrointestinal disease 03 MOTHER 09 BROTHER Cancer, Diabetes, Hypertension, Stroke SOCIAL HISTORY: -ETOH--HISTORY OF MODERATE TO HEAVY USE -DRUGS--DENIES USE -DENIES SMOKING, BUT HAS CHEWED TOBACCO PAST SURGICAL HISTORY: -CARDIAC CATHS--STENTS X 4 -EGD'S -COLONOSCOPIES/POLYPECTOMY -MULTIPLE BACK [id number] FUSION AND PLATES/RODS; NERVE STIMULATOR-REMOVED -LITHOTRIPSY -LEFT KNEE SCOPE/ACL REPAIR -WISDOM TEETH -TONSILLECTOMY/ADEONOIDECTOMY -APPENDECTOMY -CHOLECYSTECTOMY -ABDOMINAL LAPAROTOMY FOR BOWEL OBSTRUCTIONS/LYSIS OF ADHESIONS -VENTRAL HERNIA REPAIR -CHERYL FUNDOPLICATION -BILATERAL CARPAL TUNNEL -RIGHT WRIST FX/ORIF CARDIAC CATH 07/18/[address] NÚÑEZ: FINDINGS: Hemodynamics LV 135/15, end-diastolic pressure 15 Aorta 143/80 mean of 107 ANATOMY: Left Main is free of obstructive disease Left Anterior Descending is slightly tortuous, disease in a small diagonal branch, nonobstructive disease Ramus intermedius is moderate in size, has moderate to severe ostial stenosis, distally there is moderate disease Left Circumflex is moderate in size with small vessel disease in the distal circumflex artery nonobstructive disease Right Coronory Artery has diffuse ectasia, stent is patent the distal right coronary artery, small vessel disease distally LV Gram was not done, pressure was measured CONCLUSION: 1. Moderate to severe ostial ramus intermedius branch that is small to moderate in size. Distal disease, medical therapy is recommended 2. Tortuous LAD with moderate disease in a small diagonal artery that could be responsible for the chest pain 3. Diffuse ectasia in the right coronary artery with patent stent, small vessel disease distally 4. Small vessel disease in the circumflex artery distally 5. Normal left ventricular end-diastolic pressure DISCUSSION AND RECOMMENDATION: Medical therapy is recommended, no intervention is warranted Anesthesia Type: Conscious Sedation Estimated blood loss (mL): 25 ml Contrast Amount: 34 ml Total Radiation Dose: 550 mGy Post-Procedure Diagnosis Post-operative diagnosis: Unstable angina Coronary artery disease Hypertension Hyperlipidemia Coronary artery disease, patient had non-ST elevation myocardial infarction, underwent cardiac catheterization on April 11, 2019 revealing subtotal occlusion with diffuse ectasia in the distal right coronary artery, complex intervention requiring guide liner and multiple balloons, then deployment of Maday 423 mm stent with excellent results. Proximal RCA has diffuse ectasia with 50 percent stenosis, distal right PDA subtotally occluded, fairly small artery, will be treated medically. Severe stenosis at the distal circumflex artery with long lesion involving the obtuse marginal branch, proper circumflex and AV groove branch, all arteries are less than 2 mm in diameter. 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 Mild to moderate ectasia in LAD with mild to moderate disease diffusely, nonobstructive disease. Underwent cardiac catheterization on May 03, [address] Cartagena with 2.2532 mm Promus drug-eluting stent to the circumflex artery. Underwent repeat cardiac catheterization on May 21, 2019 revealing multivessel CAD with FFR confirmation of fxr-ziit-nkprvhbe disease in RCA and flow-limiting disease in mid LAD. Jsl-xlbi-uwjwpoca in proximal LAD. 2.81n65at Synergy stent to mid LAD. Most recent cardiac catheterization done June 10, 2019 with 2.0x 12mm drug eluting [place] stent to first diagonal. Maintained on Effient and aspirin. (ALYSSIA PATEL APRN) Physical Exam Vital Signs Vital Signs - First Documented 11/22/20 20:43 Temp 36.5 Pulse 96 Resp 18 B/P (MAP) 155/101 (119) Pulse Ox 93 O2 Delivery Room Air (TRE ADAMES MD) Vital Signs Capillary Refill : (ALYSSIA PATEL APRN) Height, Weight, BMI Height: 5'11.00" Weight: 260lbs. 8.0oz. 117.681653ew; 36.88 BMI Method:Stated General Appearance: No Apparent Distress, Chronically ill, Obese Respiratory: No Accessory Muscle Use, No Respiratory Distress Cardiovascular: Regular Rate, Rhythm, Normal Peripheral Pulses Gastrointestinal: Normal Bowel Sounds, Non Tender, Soft Neurologic/Psychiatric: Alert, Oriented x3 Skin: Normal Color, Warm/Dry (ALYSSIA PATEL APRN) Progress/Results/Core Measures Results/Orders Lab Results Laboratory Tests Test 11/22/20 20:54 11/22/20 23:25 Range/Units White Blood Count 8.8 4.3-11.0 10^3/uL Red Blood Count 3.85 L 4.30-5.52 10^6/uL Hemoglobin 12.6 L 13.3-17.7 g/dL Hematocrit 37 L 40-54 % Mean Corpuscular Volume 96 80-99 fL Mean Corpuscular Hemoglobin 33 25-34 pg Mean Corpuscular Hemoglobin Concent 34 32-36 g/dL Red Cell Distribution Width 14.3 10.0-14.5 % Platelet Count 173 130-400 10^3/uL Mean Platelet Volume 11.4 9.0-12.2 fL Immature Granulocyte % (Auto) 0 % Neutrophils (%) (Auto) 72 42-75 % Lymphocytes (%) (Auto) 18 12-44 % Monocytes (%) (Auto) 8 0-12 % Eosinophils (%) (Auto) 2 0-10 % Basophils (%) (Auto) 1 0-10 % Neutrophils # (Auto) 6.3 1.8-7.8 10^3/uL Lymphocytes # (Auto) 1.6 1.0-4.0 10^3/uL Monocytes # (Auto) 0.7 0.0-1.0 10^3/uL Eosinophils # (Auto) 0.2 0.0-0.3 10^3/uL Basophils # (Auto) 0.1 0.0-0.1 10^3/uL Immature Granulocyte # (Auto) 0.0 0.0-0.1 10^3/uL Prothrombin Time 14.3 12.2-14.7 SEC INR Comment 1.1 0.8-1.4 Activated Partial Thromboplast Time 32 24-35 SEC D-Dimer 0.50 H 0.00-0.49 UG/ML Sodium Level 139 135-145 MMOL/L Potassium Level 3.9 3.6-5.0 MMOL/L Chloride Level 104 98-107 MMOL/L Carbon Dioxide Level 24 21-32 MMOL/L Anion Gap 11 5-14 MMOL/L Blood Urea Nitrogen 26 H 7-18 MG/DL Creatinine 1.42 H 0.60-1.30 MG/DL Estimat Glomerular Filtration Rate 52 BUN/Creatinine Ratio 18 Glucose Level 267 H 70-105 MG/DL Calcium Level 10.3 H 8.5-10.1 MG/DL Corrected Calcium 10.1 8.5-10.1 MG/DL Magnesium Level 1.8 1.6-2.4 MG/DL Total Bilirubin 0.6 0.1-1.0 MG/DL Aspartate Amino Transf (AST/SGOT) 24 5-34 U/L Alanine Aminotransferase (ALT/SGPT) 30 0-55 U/L Alkaline Phosphatase 58 40-136 U/L Myoglobin 60.2 10.0-92.0 NG/ML Troponin I < 0.028 < 0.028 <0.028 NG/ML B-Type Natriuretic Peptide 10.1 <100.0 PG/ML Total Protein 7.5 6.4-8.2 GM/DL Albumin 4.2 3.2-4.5 GM/DL (TRE ADAMES MD) Medications Given in ED Current Medications Medications Dose Ordered Sig/Lamin Route Start Time Stop Time Status Last Admin Dose Admin Al Hydrox/Mg Hydrox/Simethicone 30 ml ONCE ONCE PO 11/22/20 21:45 11/22/20 21:46 DC 11/22/20 22:02 30 ML Aspirin 324 mg ONCE ONCE PO 11/22/20 21:00 11/22/20 21:01 DC 11/22/20 21:15 324 MG Fentanyl Citrate 50 mcg ONCE ONCE IVP 11/22/20 21:00 11/22/20 21:01 DC 11/22/20 21:14 50 MCG Iohexol 100 ml ONCE ONCE IV 11/22/20 23:30 11/22/20 23:31 DC 11/22/20 23:28 95 ML Lidocaine HCl 15 ml ONCE ONCE PO 11/22/20 21:45 11/22/20 21:46 DC 11/22/20 22:02 15 ML Sodium Chloride 10 ml NEEDED PRN IV 11/22/20 23:30 11/22/20 23:28 10 ML Sodium Chloride 100 ml ONCE ONCE IV 11/22/20 23:30 11/22/20 23:31 DC 11/22/20 23:28 80 ML (TRE ADAMES MD) Vital Signs/I&O 11/22/20 11/22/20 20:43 21:31 Temp 36.5 Pulse 96 Resp 18 B/P (MAP) 155/101 (119) Pulse Ox 93 O2 Delivery Room Air Room Air (TRE ADAMES MD) Progress Progress Note : Time: 00:13 Progress Note Second troponin is negative. Patient states that his pain is relieved. He feels comfortable to go home. I have reviewed all of his labs and imaging studies with him. No evidence for acute coronary syndrome this evening. He looks well. Sitting up on the side of the bed states his pain is much improved. Is comfortable with discharge. I have recommended that they follow-up with Dr. Gonsalez's office tomorrow. We will send a copy of this chart over to her office for review. He has a scheduled appointment for follow-up with Dr. Kerr on January 24. I have advised him to come back to the emergency room for any recurrence of symptoms, worsening complaints or other emergent concerns. He and his family member at the bedside verbalized understanding. All questions are sought and answered. Patient is stable for discharge. (TRE ADAMES MD) Diagnostic Imaging Diagonstic Imaging: Xray Comments NAME: LUCI MCMULLEN MED REC#: [id number] PT STATUS: REG ER : 1965 PHYSICIAN: ALYSSIA PATEL APRN ADMIT DATE: 11/22/20/ER Draft Date of Exam:11/22/20 CHEST 1 VIEW, AP/PA ONLY INDICATION: Chest pain. EXAMINATION: Chest 11/22/2020 COMPARISON: 09/10/2020 FINDINGS: Single view chest The heart is prominent. Pulmonary vasculature normal. There is mild atelectasis at the bases. No effusions or infiltrates. No pneumothorax. IMPRESSION: 1. Minimal bibasilar atelectasis. Otherwise negative chest. Dictated on workstation # [id number] Dict: 11/22/202119 Trans: 11/22/202124 CV 1800-2312 Interpreted by: STORM CHUN MD Electronically signed by: (ALYSSIA PATEL APRN) Diagonstic Imaging: CT Plain Films/CT/US/NM/MRI: chest Comments CT chest with IV contrast/angiography shows no pulmonary embolism, minimal atelectasis or scarring at the lung bases, mild cardiomegaly chronic central spinal stenosis at L2-L3, specifically mentions the aorta and says no thoracic aortic aneurysm (TRE ADAMES MD) Departure Impression Primary Impression: Chest pain Qualified Codes: R07.9 - Chest pain, unspecified Disposition: HOME, SELF-CARE Condition: Stable Departure-Patient Inst. Decision time for Depature: 00:14 (TRE ADAMES MD) Referrals: IRINEO GONSALEZ DO (PCP/Family) Primary Care Physician Patient Instructions: Chest Pain That Is Not Caused by the Heart (DC) Add. Discharge Instructions: Please continue your home daily medications as previously prescribed. Come back to the emergency department for any recurrence of chest pain, wo rsening symptoms or other concerning complaints. Please call and follow-up with Dr. Gonsalez's office tomorrow. Copy Copies To 1: IRINEO GONSALEZ PETER J APRN Nov 22, 2020 21:05 TRE ADAMES MD Nov 23, 2020 00:15
[2020-11-22 21:15] LABS: BASOPHILS # (AUTO) 0.1 10^3/uL (0.0-0.1); BASOPHILS % (AUTO) 1 % (0-10); EOSINOPHILS # (AUTO) 0.2 10^3/uL (0.0-0.3); EOSINOPHILS % (AUTO) 2 % (0-10); HEMATOCRIT 37 % (40-54); HEMOGLOBIN 12.6 g/dL (13.3-17.7); LYMPHOCYTES # (AUTO) 1.6 10^3/uL (1.0-4.0); LYMPHOCYTES % (AUTO) 18 % (12-44); MEAN CORPUSCULAR HEMOGLOBIN 33 pg (25-34); MEAN CORPUSCULAR HGB CONC 34 g/dL (32-36); MEAN CORPUSCULAR VOLUME 96 fL (80-99); MEAN PLATELET VOLUME 11.4 fL (9.0-12.2); MONOCYTES # (AUTO) 0.7 10^3/uL (0.0-1.0); MONOCYTES % (AUTO) 8 % (0-12); NEUTROPHILS # (AUTO) 6.3 10^3/uL (1.8-7.8); NEUTROPHILS % (AUTO) 72 % (42-75); PLATELET COUNT 173 10^3/uL (130-400); WHITE BLOOD COUNT 8.8 10^3/uL (4.3-11.0)
[2020-11-22 21:18] LABS: ALBUMIN 4.2 GM/DL (3.2-4.5); BILIRUBIN,TOTAL 0.6 MG/DL (0.1-1.0); CALCIUM 10.3 MG/DL (8.5-10.1); CREATININE SERUM 1.42 MG/DL (0.60-1.30); MAGNESIUM 1.8 MG/DL (1.6-2.4); POTASSIUM 3.9 MMOL/L (3.6-5.0); TOTAL PROTEIN 7.5 GM/DL (6.4-8.2)
--- NOTE | 2020-11-22 21:25 | Diagnostic Imaging Report ---
INDICATION: Chest pain. EXAMINATION: Chest 11/22/2020 COMPARISON: 09/10/2020 FINDINGS: Single view chest The heart is prominent. Pulmonary vasculature normal. There is mild atelectasis at the bases. No effusions or infiltrates. No pneumothorax. IMPRESSION: 1. Minimal bibasilar atelectasis. Otherwise negative chest. Dictated by: Dictated on workstation # [id number]
[2020-11-22 21:39] LABS: INR 1.1 (0.8-1.4); PROTHROMBIN TIME PATIENT 14.3 SEC (12.2-14.7)
[2020-11-22] MEDS ORDERED: LIDOCAINE 2% VISCOUS 15 ML UDC PO ONE (21:45)
[2020-11-22] MEDS ORDERED: ANTACID SUSP 30 ML UDC (MYLANTA) PO ONE (21:45)
[2020-11-22] MEDS: meTOprolol 5 MG/5 ML (LOPRESSOR) VIAL IV ONE ×2 (22:02→22:10)
[2020-11-22] MEDS ORDERED: LACTATED RINGERS 1,000 ML IV SCH (22:45)
[2020-11-22] MEDS ORDERED: IOHEXOL 350 MG/ML 100 ML (OMNIPAQUE 350) VIAL IV ONE (23:30)
[2020-11-22] MEDS ORDERED: HOLD METFORMIN - RECEIVED CONTRAST 20 ML VIAL IV SCH (23:30)
[2020-11-22] MEDS ORDERED: CATHETER FLUSH 10 ML SYR IV PRN (23:30)
[2020-11-22] MEDS ORDERED: NS 100 ML (IVPB) BAG IV ONE (23:30)
[2020-11-23 00:19] VITALS: BP 141/94
--- NOTE | 2020-11-23 06:19 | Diagnostic Imaging Report ---
PROCEDURE: CT angiography of the chest with contrast. TECHNIQUE: Multiple contiguous axial images were obtained through the chest after uneventful bolus administration of intravenous contrast. 3D reconstructed CTA MIP acquisitions were also performed. Auto Exposure Controls were utilized during the CT exam to meet ALARA standards for radiation dose reduction. INDICATION: Chest pain COMPARISON: 10/29/2020 and 07/12/2018 FINDINGS: The thyroid gland appears nodular, though similar to the prior examinations. Bilateral gynecomastia. No significant adenopathy within the chest. Mild scattered vascular calcifications within the thoracic aorta and its branch vessels, including extensive calcifications within the coronary arteries. Borderline aneurysmal dilatation of the ascending thoracic aorta measuring up to 3.9 cm. The heart is within normal limits in size. No pericardial effusion. No pleural effusion. The trachea is patent. No pneumothorax. Minimal reticular and groundglass opacities are again identified within the lung bases, appearing similar to the recent examination. No new focal pulmonary opacity. No significant filling defect within the central or segmental pulmonary arteries. Cholecystectomy. Hepatosplenomegaly is again noted. Evidence of a prior anterior abdominal wall hernia repair with mesh in place. Postsurgical changes within the cervical spine are partially visualized. Scattered osseous degenerative changes are noted. This includes peripherally calcified disc bulges and disc osteophyte complexes within the lumbar spine with at least moderate to severe central canal stenosis is present. No acute osseous abnormality. IMPRESSION: No significant pulmonary embolus. Minimal bibasilar scarring and/or atelectasis, appearing similar to the prior exam. Scattered degenerative changes with resulting severe central canal stenosis within the lumbar spine. Stable hepatosplenomegaly. Additional findings as above. Agree with preliminary interpretation. Dictated by: Dictated on workstation # [id number]
== END 2020-11-23 00:19 | disposition home or self-care (01) ==
LOC: EDUNIT# 20:41 → ER 20:44
DX: R07.9 Chest pain, unspecified (principal); E66.9 Obesity, unspecified; J44.9 Chronic obstructive pulmonary disease, unspecified; I10 Essential (primary) hypertension; E78.00 Pure hypercholesterolemia, unspecified; I25.10 Atherosclerotic heart disease of native coronary artery without angina pectoris; E11.9 Type 2 diabetes mellitus without complications; M10.9 Gout, unspecified; F41.9 Anxiety disorder, unspecified; N40.0 Benign prostatic hyperplasia without lower urinary tract symptoms; M54.6 Pain in thoracic spine; Z68.36 Body mass index [BMI] 36.0-36.9, adult; Z79.82 Long term (current) use of aspirin; Z79.899 Other long term (current) drug therapy; Z79.4 Long term (current) use of insulin
CPT/HCPCS: 36415; 71045; 71275; 80053; 83735; 83874; 83880; 84484; 85025; 85379; 85610; 85730; 93005; 93041

== ENCOUNTER 2020-12-20 05:28 | Outpatient (RCR) | payer MEDICARE, OTHER ==
[~2020-12-20] VITALS: Ht 180.3 cm; Wt 120.3 kg
[~2020-12-20 05:28] MED LIST changes: +METF-397 PO; +MONT10TA21 PO
[2020-12-21] MEDS ORDERED: OMEP40CA6 PO (12:17)
== END 2020-12-20 08:51 | disposition home or self-care (01) ==
LOC: PREOP 05:28
PROVIDERS: ATTEND Surgery
DX: Z01.812 Encounter for preprocedural laboratory examination (principal); K21.9 Gastro-esophageal reflux disease without esophagitis; Z20.822 Contact with and (suspected) exposure to COVID-19
CPT/HCPCS: 87635

== ENCOUNTER 2020-12-21 09:18 | Day surgery (SDC) | payer MEDICARE, OTHER ==
[~2020-12-21] VITALS: Ht 180.3 cm; Wt 120.3 kg
[2020-12-21] MEDS ORDERED: LACTATED RINGERS 1,000 ML IV STA (09:26)
[2020-12-21] MEDS ORDERED: LACTATED RINGERS 1,000 ML IV ONE (09:29)
[2020-12-21 09:30] VITALS: BP 140/93
[2020-12-21] MEDS ORDERED: HURRICAINE EXT TUBE (BENZOCAINE) XX PRN (09:30)
[2020-12-21] MEDS ORDERED: LIDOCAINE JELLY 2% 6 ML SYRINGE MM PRN (09:30)
--- NOTE | 2020-12-21 10:48 | Progress Note-Pre Operative ---
Pre-Operative Progress Note H&P Reviewed The H&P was reviewed, patient examined and no changes noted. Date Seen by Provider: Dec 21, 2020 Time Seen by Provider: 10:00 Date H&P Reviewed: Dec 21, 2020 Time H&P Reviewed: 10:00 Pre-Operative Diagnosis: screening colonoscopy MOISÉS LOUIS MD Dec 21, 2020 10:47
[2020-12-21] MEDS ORDERED: MIDAZOLAM 2 MG/2 ML (VERSED) VIAL ONE (11:19)
[2020-12-21] MEDS ORDERED: PROPOFOL INJECTION 50 ML IV ONE (11:19)
[2020-12-21 11:50] VITALS: BP 143/80
[2020-12-21 11:55] VITALS: BP 145/76
[2020-12-21] MEDS ORDERED: OMEP40CA6 PO (12:17)
[2020-12-21 12:25] VITALS: BP 129/86
--- NOTE | 2020-12-21 12:28 | Anesthesia-General Post-Op ---
MAC Patient Condition Mental Status/LOC: Same as Preop Cardiovascular: Satisfactory Nausea/Vomiting: Absent Respiratory: Satisfactory Pain: Controlled Complications: Absent Post Op Complications Complications None Follow Up Care/Instructions Patient Instructions None needed. Anesthesiology Discharge Order Discharge Order Patient is doing well, no complaints, stable vital signs, no apparent adverse anesthesia problems. No complications reported per nursing. BECKY CHILDS CRNA Dec 21, 2020 12:27
[2020-12-21 12:30] VITALS: BP 129/86
--- NOTE | 2020-12-21 12:39 | Progress Note-Post Operative ---
Post-Operative Progess Note Surgeon (s)/Outlet Manager (s) Surgeon MOISÉS LOUIS MD Outlet Manager: none Pre-Operative Diagnosis screening colonoscopy Post-Operative Diagnosis reflux esophagitis(stage 2), intact wrap, possible small recurrence HH, moderate gastritis. Procedure & Operative Findings Date of Procedure 12/21/20 Procedure Performed/Findings EGD with bx. Anesthesia Type mac Estimated Blood Loss Estimated blood loss (mL): minimal Specimens/Packing Specimens Removed ge jxn, antrum MOISÉS LOUIS MD Dec 21, 2020 12:39
--- NOTE | 2020-12-21 14:14 | OPERATIVE REPORT ---
DATE OF SERVICE: 12/21/2020 ATTENDING PRIMARY CARE PHYSICIAN: Pat Stevens DO PREOPERATIVE DIAGNOSIS: Gastroesophageal reflux disease. POSTOPERATIVE DIAGNOSES: Reflux esophagitis between stage II and III, intact previous hiatal hernia repair and Gray fundoplication. Moderate gastritis. PROCEDURE: EGD with biopsy. SURGEON: Moisés Louis MD ANESTHESIA: Monitored anesthesia care. ESTIMATED BLOOD LOSS: Minimal. FINDINGS: Reflux esophagitis between stage II and III, intact previous hiatal hernia repair and Gray fundoplication. Moderate gastritis. DISPOSITION: The patient tolerated the procedure well. INDICATIONS: The patient is a 55-year-old male known to us. He underwent a laparoscopic cholecystectomy in 2005 and then developed an incisional hernia and was found to have a considerable amount of adhesion tissue and underwent an open laparotomy, lysis of adhesions. He then had recurrence of hernia, which was repaired on 09/29/2019 and another reoccurrence in 09/2019 and this time, small bowel involvement and a small bowel resection was also done and the abdomen was closed by component separation and biologic mesh. He reports that he has had worsening issues with a substernal pressure sensation as well as burning pain. He is currently on Protonix. He is status post hiatal hernia repair as well as a Gray fundoplication in 1998. DESCRIPTION OF PROCEDURE: The patient was brought to the endoscopy suite, laid in left lateral decubitus position. After adequate IV pain and sedative medications and monitored anesthesia care, the mouthpiece was applied. The endoscope was placed in the mouth, visualizing the pharynx and hypopharyngeal region. Vocal cords, epiglottis and vallecula identified and appeared to be normal. The endoscope was then gently intubated. Esophageal opening and esophagus insufflated. The endoscope was then advanced to the first, second and third portion of esophagus at the level of the GE junction, a reflux esophagitis between stage II and III identified. There were no ulcers or strictures identified in this region. A biopsy was taken with forceps with visualization of good hemostasis. The endoscope was then advanced in the stomach and endoscope retroflexed, visualizing intact previous hiatal hernia repair as well as a Gray fundoplication. There was a moderate severity gastritis more towards the stomach antrum. No formal ulcerations, polyps, or any neoplasms. A biopsy was taken of the stomach antrum to rule out H. pylori with visualization of good hemostasis. The endoscope was then advanced to the pylorus and first and second portion of the duodenum, which appeared normal with no ulcerations or any distal obstructions. The endoscope was then slowly withdrawn while taking a second look and suctioning of residual air with no additional findings. The patient tolerated the procedure well. We will recommend the necessary lifestyle and diet accommodation including small and more frequent meals, avoidance of eating at night as well as head elevation while lying supine. He also needs to avoid caffeinated beverages, spicy, greasy and acidic foods as well as to proceed and maintain a regularly scheduled diet and exercise regimen for weight loss and maintenance. He is currently on Protonix; however, we will also start him on omeprazole 40 mg daily to be taken at a different time of the day. Job ID: [id number] DocumentID: [id number] Dictated Date: 12/21/2020 11:50:30 Home Health Clinical Liaison Date: 12/21/2020 14:13:35 Dictated By: MOISÉS LOUIS MD
== END 2020-12-21 12:30 | disposition home or self-care (01) ==
LOC: ENDO 09:18
PROVIDERS: ATTEND Surgery
DX: K29.50 Unspecified chronic gastritis without bleeding (principal); K21.00 Gastro-esophageal reflux disease with esophagitis, without bleeding; K44.9 Diaphragmatic hernia without obstruction or gangrene; I10 Essential (primary) hypertension; I25.10 Atherosclerotic heart disease of native coronary artery without angina pectoris; J44.9 Chronic obstructive pulmonary disease, unspecified; G47.33 Obstructive sleep apnea (adult) (pediatric); E11.9 Type 2 diabetes mellitus without complications; E66.01 Morbid (severe) obesity due to excess calories; Z68.37 Body mass index [BMI] 37.0-37.9, adult; Z79.899 Other long term (current) drug therapy; Z79.84 Long term (current) use of oral hypoglycemic drugs; Z79.82 Long term (current) use of aspirin

== ENCOUNTER → 2021-01-15 | Outpatient (CLI) | payer MEDICARE, OTHER ==
[~2021-01-15] MED LIST changes: +CATHETER FLUSH 10 ML SYR IV PRN; +HOLD METFORMIN - RECEIVED CONTRAST 20 ML VIAL IV SCH; +IOHEXOL 350 MG/ML 100 ML (OMNIPAQUE 350) VIAL IV ONE; +NS 100 ML (IVPB) BAG IV ONE
[2021-01-15 08:52] LABS: CREATININE SERUM 1.39 MG/DL (0.60-1.30)
--- NOTE | 2021-01-15 10:48 | Diagnostic Imaging Report ---
PROCEDURE: CT abdomen and pelvis with and without contrast. TECHNIQUE: Precontrast acquisitions were acquired through the abdomen and pelvis. Multiple contiguous axial images were obtained through the abdomen and pelvis after the administration of intravenous contrast. Auto Exposure Controls were utilized during the CT exam to meet ALARA standards for radiation dose reduction. INDICATION: Question mid abdominal hernia. Abdominal pain. Prior history of hernia repair. Adhesions. CT abdomen and pelvis with and without contrast 01/15/2021 Comparison to 06/29/2020 FINDINGS: No acute process seen in the visualized lung bases. There is diffuse fatty infiltration throughout the liver. There is evidence of previous cholecystectomy. Spleen is normal. Adrenal glands and pancreas unremarkable. Kidneys unremarkable. There is atherosclerotic disease along the aorta and its branches. Diverticular disease is noted without evidence for diverticulitis. There is no ascites or free air. Wall thickening noted along the urinary bladder which could be due to under distention versus cystitis, correlate clinically. There is diastases along the midline musculature of the anterior abdomen. An adjacent anterior abdominal wall hernia is noted which contains fat. On image #60 of [id number] a small loop of small bowel extending into the herniation cannot be excluded. There is no obstructive process. Several of the small bowel loops abut the anterior abdominal wall and could be adherent to the wall or this may be an incidental finding. Adjacent suture line is noted. There is diffuse degenerative disease and postoperative change along the lumbar spine. IMPRESSION: 1. Midline anterior abdominal wall hernia which predominantly contains fat although a small loop of small bowel extending into the region is not excluded as described above with adjacent possibly adherent small bowel loops along the anterior abdominal wall with no evidence for obstruction. Other findings as above. Dictated by: Dictated on workstation # [id number]
== END ==
LOC: RAD 09:45
PROVIDERS: ATTEND Surgery
DX: K43.2 Incisional hernia without obstruction or gangrene (principal)
CPT/HCPCS: 36415; 74178; 82565; 84520

== ENCOUNTER → 2021-02-01 | Outpatient (CLI) | payer MEDICARE, OTHER ==
[~2021-02-01] MED LIST changes: -CATHETER FLUSH 10 ML SYR IV PRN; -HOLD METFORMIN - RECEIVED CONTRAST 20 ML VIAL IV SCH; -IOHEXOL 350 MG/ML 100 ML (OMNIPAQUE 350) VIAL IV ONE; -NS 100 ML (IVPB) BAG IV ONE
--- NOTE | 2021-02-01 14:02 | Diagnostic Imaging Report ---
PROCEDURE: CT abdomen and pelvis without contrast. TECHNIQUE: Multiple contiguous axial images were obtained through the abdomen and pelvis without the use of intravenous contrast. Auto Exposure Controls were utilized during the CT exam to meet ALARA standards for radiation dose reduction. INDICATION: Right flank pain. COMPARISON: Comparison is made with prior CT from 01/15/2021. FINDINGS: The lung bases are clear. The liver is unremarkable. The gallbladder is surgically absent. There is no biliary ductal dilatation. Pancreas and spleen are unremarkable. No adrenal mass is detected. No ureteral calculi or hydronephrosis is detected. No bladder calculi are seen. Aorta is calcified but nonaneurysmal. Small and large bowel loops are normal in caliber. There is no obstruction. There are some occasional diverticula within the sigmoid colon. No free fluid or fluid collection is identified. No inflammatory changes are detected. Postop changes in the lower lumbar spine are noted. IMPRESSION: 1. No evidence of urinary tract calculi or obstruction. 2. Uncomplicated diverticulosis. Dictated by: Dictated on workstation # [id number]
== END ==
LOC: RAD 12:15
PROVIDERS: ATTEND Internal Medicine
DX: N20.0 Calculus of kidney (principal); K57.30 Diverticulosis of large intestine without perforation or abscess without bleeding
CPT/HCPCS: 74176

== ENCOUNTER → 2021-04-12 | Outpatient (CLI) | payer MEDICARE, OTHER ==
[~2021-04-12] MED LIST changes: -DOCU250C18 PO; +DOCU250C97 PO; -MAGN400T8 PO; +MGX400T PO
== END ==
LOC: LABNPT 06:41
PROVIDERS: ATTEND Orthopaedic Surgery Orthopaedic Surgery of the Spine
DX: Z01.812 Encounter for preprocedural laboratory examination (principal); Z20.822 Contact with and (suspected) exposure to COVID-19
CPT/HCPCS: 87635

== ENCOUNTER → 2021-06-07 | Outpatient (CLI) | payer MEDICARE, OTHER ==
[~2021-06-07] MED LIST changes: +MONT-40 PO; -MONT10TA32 PO
--- NOTE | 2021-06-07 09:20 | Diagnostic Imaging Report ---
PROCEDURE: MRI lumbar spine without contrast. TECHNIQUE: Multiplanar, multisequence MRI of the lumbar spine was performed without contrast. INDICATION: Back pain. COMPARISON: 02/01/2021. FINDINGS: 5 lumbar type vertebral bodies are visualized with the last well-formed disc space designated L5-S1. No acute fracture or dislocation is seen in the lumbar spine. Alignment is anatomic. Posterior fusion changes are visualized at the L2-L3 level. Vertiflex implants are visualized in the intraspinous space at L4-L5 and L5-S1. Vertebral body heights are well-maintained. The bone marrow signal is normal. The conus terminates at the L1 level. No masses are seen associated with the conus or nerve roots of the cauda equina. No epidural collections are identified. Multilevel degenerative changes are seen in the lumbar spine with disc bulges, facet hypertrophy, and buckling of the ligamentum flavum. T12-L1: No significant spinal canal or foraminal stenosis. L1-L2: Broad-based disc bulge, facet hypertrophy, and buckling of ligamentum flavum results in mild spinal canal narrowing and moderate right and mild left foraminal narrowing. L2-L3: Disc osteophyte complex and facet hypertrophy results in mild spinal canal narrowing and moderate right and [id number] left foraminal stenosis. L3-L4: Facet hypertrophy and buckling of ligamentum flavum results in no significant spinal canal narrowing and mild to moderate right and mild left foraminal narrowing. L4-L5: Right foraminal disc bulge, facet hypertrophy, and buckling of the ligamentum flavum results in no significant spinal canal narrowing and severe right and no left foraminal stenosis. L5-S1: Right foraminal disc osteophyte complex, facet hypertrophy, and buckling of the ligamentum flavum results in no significant spinal canal narrowing and moderate to severe right and no left foraminal stenosis. Paravertebral soft tissues are unremarkable. IMPRESSION: 1. No acute fracture or dislocation in the lumbar spine. 2. Multilevel degenerative changes in the lumbar spine, greatest at the L4-L5 and L5-S1 level with severe right foraminal stenosis at L4-L5 and moderate to severe right foraminal stenosis at L5-S1. 3. Posterior fusion from L2 to L3 with Vertiflex implants at L4-L5 and L5-S1. Dictated by: Dictated on workstation # [id number]
== END ==
LOC: RAD 08:00
PROVIDERS: ATTEND Physician Assistant
DX: M48.07 Spinal stenosis, lumbosacral region (principal); M47.817 Spondylosis without myelopathy or radiculopathy, lumbosacral region; Z98.1 Arthrodesis status
CPT/HCPCS: 72148

== ENCOUNTER → 2021-06-07 | Outpatient (CLI) | payer MEDICARE, OTHER | LOC: CARD 07:47 | PROVIDERS: ATTEND Internal Medicine Cardiovascular Disease | DX: I11.9 Hypertensive heart disease without heart failure (principal) | CPT/HCPCS: 93306 ==

== ENCOUNTER 2021-06-22 17:51 | Emergency (ER) | payer MEDICARE, OTHER ==
[~2021-06-22] VITALS: Ht 183 cm; Wt 124.7 kg
[2021-06-22 18:32] LABS: BASOPHILS % (AUTO) 0 % (0-10); EOSINOPHILS % (AUTO) 0 % (0-10); HEMATOCRIT 46 % (40-54); HEMOGLOBIN 16.1 g/dL (13.3-17.7); LYMPHOCYTES # (AUTO) 1.2 10^3/uL (1.0-4.0); LYMPHOCYTES % (AUTO) 9 % (12-44); MEAN CORPUSCULAR HEMOGLOBIN 33 pg (25-34); MEAN CORPUSCULAR HGB CONC 35 g/dL (32-36); MEAN CORPUSCULAR VOLUME 94 fL (80-99); MEAN PLATELET VOLUME 11.7 fL (9.0-12.2); MONOCYTES # (AUTO) 0.8 10^3/uL (0.0-1.0); MONOCYTES % (AUTO) 6 % (0-12); NEUTROPHILS # (AUTO) 10.5 10^3/uL (1.8-7.8); NEUTROPHILS % (AUTO) 82 % (42-75); PLATELET COUNT 161 10^3/uL (130-400); WHITE BLOOD COUNT 12.8 10^3/uL (4.3-11.0)
[2021-06-22 18:49] LABS: ALANINE AMINOTRANSFERASE 50 U/L (0-55); ALBUMIN 4.2 GM/DL (3.2-4.5); ALKALINE PHOSPHATASE 83 U/L (40-136); BILIRUBIN,TOTAL 0.5 MG/DL (0.1-1.0); BUN/CREATININE RATIO 20; CALCIUM 9.7 MG/DL (8.5-10.1); CARBON DIOXIDE 21 MMOL/L (21-32); CHLORIDE 100 MMOL/L (98-107); CREATININE SERUM 2.22 MG/DL (0.60-1.30); GFR ESTIMATED 34; GLUCOSE 313 MG/DL (70-105); POTASSIUM 3.9 MMOL/L (3.6-5.0); SODIUM 137 MMOL/L (135-145); TOTAL PROTEIN 7.7 GM/DL (6.4-8.2)
[2021-06-22] MEDS ORDERED: NS IV 1000 ML 1,000 ML IV SCH ×3 (19:00→19:15)
[2021-06-22] MEDS ORDERED: inSUlin (REGULAR) HUMAN 1 UNIT/0.01 ML (CHARGE PER UNIT) SC ONE (19:00)
--- NOTE | 2021-06-22 19:14 | ED Respiratory ---
General Chief Complaint: COVID19 Suspect/Confirmed Stated Complaint: COVID +/CHEST TIGHTNESS/CONGESTION/COUGH Nursing Triage Note: PT AMB TO RM 9 W C/O SOA, CHEST TIGHTNESS, AND REPORTS OF SPO2 83% AT HOME. PT REPORTS HE'S HAD COVID SYMPTOMS X 7 DAYS, TESTED + AT [facility] ON THURSDAY. PT WAS AT [facility] AURICULOTHERAPIST, THEY DX HIM W PNA AND ADVISED HIM TO GO TO ED FOR FURTHER EVALUATION. A&OX4. Source: patient Exam Limitations: no limitations History of Present Illness Date Seen by Provider: Jun 22, 2021 Time Seen by Provider: 18:37 Initial Comments Patient ER by private conveyance with his spouse chief complaint that while he was sleeping on the couch taking a nap not wearing his CPAP he had a oxygen saturation of 83% at home. Soon as he woke up moved around his oxygen saturation was 97%. He supposed to be wearing a CPAP at all times but he did not plan on actually falling asleep. He was diagnosed with Covid on Thursday, 4 days ago and symptoms started 7 days ago. He was seen at urgent care today and they recommended him to come out here for checked out. He doctors with Dr. Gonsalez. Is not having any pain nausea vomiting. He does not use oxygen at baseline. Nursing staff reports his oxygen saturations have been in the mid to upper 90s on room air since he arrived. He is having some chest tightness conge stion and cough nonproductive. No fever presently. Allergies and Home Medications Allergies Coded Allergies: No Known Drug Allergies (Unverified , 12/29/19) Patient Home Medication List Home Medication List Reviewed: Yes Allopurinol (Allopurinol) 300 Mg Tablet, 300 MG PO DAILY, (Reported) Entered as Reported by: PATRICIA VALENZUELA on 10/08/201606 Ascorbic Acid (Vitamin C) 1,000 Mg Tablet, 1,000 MG PO BID, (Reported) Entered as Reported by: PATRICIA VALENZUELA on 10/08/201606 Aspirin (Aspirin EC) 81 Mg Tablet.dr, 81 MG PO DAILY, (Reported) Entered as Reported by: PATRICIA VALENZUELA on 10/08/201606 Baclofen (Baclofen) 10 Mg Tablet, 10 MG PO TID PRN for SPASMS, (Reported) Entered as Reported by: PATRICIA VALENZUELA on 10/08/20 160 Carvedilol (Carvedilol) 3.125 Mg Tablet, 3.125 MG PO BID, (Reported) Entered as Reported by: WEI JIMENEZ on 12/19/20 130 Cholecalciferol (Vitamin D3) (Vitamin D3) 125 Mcg Capsule, 125 MCG PO DAILY, (Reported) Entered as Reported by: PATRICIA VALENZUELA on 10/08/20 160 Evolocumab (Repatha Sureclick) 140 Mg/1 Ml Pen.injctr, 140 MG SQ UD, (Reported) Entered as Reported by: WEI JIMENEZ on 12/19/20 130 Fenofibrate,Micronized (Fenofibrate) 134 Mg Capsule, 134 MG PO HS, (Reported) Entered as Reported by: PATRICIA VALENZUELA on 10/08/201606 Fluticasone/Salmeterol (Advair 250-50 Diskus) 1 Each Blst.w.dev, 1 EACH IH DAILY, (Reported) Entered as Reported by: WEI JIMENEZ on 12/19/20 130 Furosemide (Furosemide) 40 Mg Tablet, 40 MG PO DAILY, (Reported) Entered as Reported by: PATRICIA VALENZUELA on 10/08/201606 Hydrocodone/Acetaminophen (Hydrocodone-Acetamin 5-325 mg) 1 Each Tablet, 1 TAB PO Q4H PRN for PAIN-MODERATE (5-7), (Reported) Entered as Reported by: WEI JIMENEZ on 12/19/20 130 Hydroxyzine HCl (Hydroxyzine HCl) 10 Mg Tablet, 10 MG PO Q6H PRN for ANXIETY, (Reported) Entered as Reported by: PATRICIA VALENZUELA on 10/08/201606 Insulin Regular, Human (Humulin R U-500 Kwikpen) 500 Unit/1 Ml Insuln.pen, 10 UNIT SQ AC Prescribed by: IRINEO GONSALEZ on 10/09/20 0859 Isosorbide Mononitrate (Isosorbide Mononitrate ER) 30 Mg Tab.er.24h, 30 MG PO DAILY, (Reported) Entered as Reported by: PATRICIA VALENZUELA on 10/08/201606 Lisinopril (Lisinopril) 10 Mg Tablet, 10 MG PO DAILY, (Reported) Entered as Reported by: PATRICIA VALENZUELA on 10/08/20 160 Magnesium Oxide (Magnesium) 400 Mg Tablet, 400 MG PO BIDAC, (Reported) Entered as Reported by: PATRICIA VALENZUELA on 10/08/20 160 Metformin HCl (Metformin HCl) 500 Mg Tablet, 500 MG PO DAILY, (Reported) Entered as Reported by: WEI JIMENEZ on 12/19/20 130 Montelukast Sodium (Montelukast Sodium) 10 Mg Tablet, 10 MG PO HS, (Reported) Entered as Reported by: PATRICIA VALENZUELA on 10/08/20 160 Montelukast Sodium (Singulair) 10 Mg Tablet, 10 MG PO DAILY, (Reported) Entered as Reported by: WEI JIMENEZ on 12/19/20 130 Nitroglycerin (Nitroglycerin) 0.4 Mg Tab.subl, 0.4 MG SL UD PRN for CHEST PAIN, (Reported) Entered as Reported by: PATRICIA VALENZUELA on 10/08/201606 Pinson-3 Acid Ethyl Esters (Lovaza) 1 Gm Capsule, 2 GM PO BID, (Reported) Entered as Reported by: PATRICIA VALENZUELA on 10/08/201606 Omeprazole (Omeprazole) 40 Mg Capsule.dr, 40 MG PO DAILY Prescribed by: PAM TA on 12/21/20 1217 Pitavastatin Calcium (Livalo) 4 Mg Tablet, 4 MG PO DAILY, (Reported) Entered as Reported by: WEI JIMENEZ on 12/19/20 130 Prasugrel HCl (Prasugrel HCl) 10 Mg Tablet, 10 MG PO DAILY, (Reported) Entered as Reported by: PATRICIA VALENZUELA on 10/08/20 160 Sucralfate (Sucralfate) 1 Gm Tablet, 1 GM PO ACHS, (Reported) Entered as Reported by: WEI JIMENEZ on 12/19/20 130 Tamsulosin HCl (Flomax) 0.4 Mg Cap, 0.4 MG PO 1800 Prescribed by: IRINEO GONSALEZ on 10/09/20 0859 Ubidecarenone (Co Q-10) 100 Mg Capsule, 100 MG PO DAILY, (Reported) Entered as Reported by: PATRICIA VALENZUELA on 10/08/20 160 Review of Systems Review of Systems Constitutional: chills, fever, malaise, weakness EENTM: No ear discharge, No ear pain Respiratory: cough, short of breath Cardiovascular: No chest pain, No edema Gastrointestinal: No abdominal pain, No constipation, No diarrhea, No nausea Genitourinary: No discharge, No dysuria Musculoskeletal: No back pain, No joint pain All Other Systems Reviewed Negative Unless Noted: Yes Past Yswfofp-Tebyin-Bbscdc Hx Patient Social History Tobacco Use?: No Use of E-Cig and/or Vaping dev: No Substance use?: No Alcohol Use?: No Immunizations Up To Date Tetanus Booster (TDap): Unknown PED Vaccines UTD: No Influenza Vaccine Up-to-Date: Yes; Up-to-Date First/Initial COVID19 Vaccinat: NONE Second COVID19 Vaccination Nathan: NONE Third COVID19 Vaccination Date: NONE COVID19 Vaccine 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: 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 Seasonal Allergies Seasonal Allergies: Yes Past Medical History Surgery/Hospitalization HX: RIAZ, RENAL FAILURE, CARDIAC STENTS, HIGH CHOLESTEROL, DM Surgeries: Yes Abdominal, Gallbladder, Orthopedic Respiratory: Yes Pneumonia, Sleep Apnea, COPD Currently Using CPAP: No Currently Using BIPAP: Yes Cardiac: Yes (NSTEMI 03/2019; STENTS X 4) Chronic Edema/Swelling, Coronary Artery Disease, High Cholesterol, Hypertension Neurological: Yes Neuropathy Reproductive Disorders: No Sexually Transmitted Disease: No HIV/AIDS: No Genitourinary: Yes (CHRONIC RENAL INSUFFICIENCY) Benign Prostatic Hyperpl, Bladder Infection, Renal Failure Gastrointestinal: Yes Chronic Constipation Musculoskeletal: Yes Degenerate Disk Disease, Arthritis, Gout Endocrine: Yes (OBESITY) Diabetes, Insulin dep HEENT: No Tonsilitis Loss of Vision: Denies Hearing Impairment: Denies Cancer: No Psychosocial: Yes Anxiety, Depression Integumentary: No Blood Disorders: No Adverse Reaction/Blood Tranf: No (N/A) Family Medical History Abdominal aortic aneurysm 09 BROTHER Cancer 03 MOTHER Cancer of colon 03 MOTHER 09 SISTER 19 MOTHER FH: COPD (chronic obstructive pulmonary disease) 19 FATHER FH: leukemia 09 SISTER 19 MOTHER FHx: stroke 19 FATHER Family history: Diabetes mellitus 09 BROTHER 09 SISTER 09 SISTER 09 SISTER Family history: Gastrointestinal disease 03 MOTHER 09 BROTHER Cancer, Diabetes, Hypertension, Stroke SOCIAL HISTORY: -ETOH--HISTORY OF MODERATE TO HEAVY USE -DRUGS--DENIES USE -DENIES SMOKING, BUT HAS CHEWED TOBACCO PAST SURGICAL HISTORY: -CARDIAC CATHS--STENTS X 4 -EGD'S -COLONOSCOPIES/POLYPECTOMY -MULTIPLE BACK [id number] FUSION AND PLATES/RODS; NERVE STIMULATOR-REMOVED -LITHOTRIPSY -LEFT KNEE SCOPE/ACL REPAIR -WISDOM TEETH -TONSILLECTOMY/ADEONOIDECTOMY -APPENDECTOMY -CHOLECYSTECTOMY -ABDOMINAL LAPAROTOMY FOR BOWEL OBSTRUCTIONS/LYSIS OF ADHESIONS -VENTRAL HERNIA REPAIR -CHERYL FUNDOPLICATION -BILATERAL CARPAL TUNNEL -RIGHT WRIST FX/ORIF CARDIAC CATH 07/18/[address] RODRÍGUEZ: FINDINGS: Hemodynamics LV 135/15, end-diastolic pressure 15 Aorta 143/80 mean of 107 ANATOMY: Left Main is free of obstructive disease Left Anterior Descending is slightly tortuous, disease in a small diagonal branch, nonobstructive disease Ramus intermedius is moderate in size, has moderate to severe ostial stenosis, distally there is moderate disease Left Circumflex is moderate in size with small vessel disease in the distal circumflex artery nonobstructive disease Right Coronory Artery has diffuse ectasia, stent is patent the distal right coronary artery, small vessel disease distally LV Gram was not done, pressure was measured CONCLUSION: 1. Moderate to severe ostial ramus intermedius branch that is small to moderate in size. Distal disease, medical therapy is recommended 2. Tortuous LAD with moderate disease in a small diagonal artery that could be responsible for the chest pain 3. Diffuse ectasia in the right coronary artery with patent stent, small vessel disease distally 4. Small vessel disease in the circumflex artery distally 5. Normal left ventricular end-diastolic pressure DISCUSSION AND RECOMMENDATION: Medical therapy is recommended, no intervention is warranted Anesthesia Type: Conscious Sedation Estimated blood loss (mL): 25 ml Contrast Amount: 34 ml Total Radiation Dose: 550 mGy Post-Procedure Diagnosis Post-operative diagnosis: Unstable angina Coronary artery disease Hypertension Hyperlipidemia Coronary artery disease, patient had non-ST elevation myocardial infarction, underwent cardiac catheterization on April 11, 2019 revealing subtotal occlusion with diffuse ectasia in the distal right coronary artery, complex intervention requiring guide liner and multiple balloons, then deployment of Maday 423 mm stent with excellent results. Proximal RCA has diffuse ectasia with 50 percent stenosis, distal right PDA subtotally occluded, fairly small artery, will be treated medically. Severe stenosis at the distal circumflex artery with long lesion involving the obtuse marginal branch, proper circumflex and AV groove branch, all arteries are less than 2 mm in diameter. 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 Mild to moderate ectasia in LAD with mild to moderate disease diffusely, nonobstructive disease. Underwent cardiac catheterization on May 03, [address] Cartagena with 2.2532 mm Promus drug-eluting stent to the circumflex artery. Underwent repeat cardiac catheterization on May 21, 2019 revealing multivessel CAD with FFR confirmation of ndu-clbt-qspvjsad disease in RCA and flow-limiting disease in mid LAD. Bap-pkeq-clkmzcby in proximal LAD. [id number] Synergy stent to mid LAD. Most recent cardiac catheterization done June 10, 2019 with 2.0x 12mm drug eluting [place] stent to first diagonal. Maintained on Effient and aspirin. Physical Exam Vital Signs - First Documented 06/22/21 18:00 Temp 36.3 Pulse 110 Resp 24 B/P (MAP) 124/92 (103) O2 Delivery Room Air Capillary Refill : Less Than 3 Seconds Height: 5'11.00" Weight: 260lbs. 8.0oz. 117.450921tw; 37.00 BMI Method:Stated General Appearance: WD/WN, no apparent distress Eyes: Bilateral Eye Normal Inspection, Bilateral Eye PERRL, Bilateral Eye EOMI HEENT: PERRL/EOMI, normal ENT inspection, TMs normal, pharynx normal Neck: full range of motion, supple, normal inspection Respiratory: lungs clear, normal breath sounds, no respiratory distress, no accessory muscle use Cardiovascular: normal peripheral pulses, regular rate, rhythm Gastrointestinal: normal bowel sounds, non tender, soft Neurologic/Psychiatric: alert, normal mood/affect Progress/Results/Core Measures Suspected Sepsis SIRS Temperature: Pulse: 110 Respiratory Rate: 24 Laboratory Tests 06/22/21 18:07: White Blood Count 12.8H Blood Pressure 124 /92 Mean: 103 Laboratory Tests 06/22/21 18:07: Creatinine 2.22H, Platelet Count 161, Total Bilirubin 0.5 Results/Orders Lab Results Laboratory Tests Test 06/22/21 18:07 06/22/21 19:56 06/22/21 20:40 Range/Units White Blood Count 12.8 H 4.3-11.0 10^3/uL Red Blood Count 4.95 4.30-5.52 10^6/uL Hemoglobin 16.1 13.3-17.7 g/dL Hematocrit 46 40-54 % Mean Corpuscular Volume 94 80-99 fL Mean Corpuscular Hemoglobin 33 25-34 pg Mean Corpuscular Hemoglobin Concent 35 32-36 g/dL Red Cell Distribution Width 12.2 10.0-14.5 % Platelet Count 161 130-400 10^3/uL Mean Platelet Volume 11.7 9.0-12.2 fL Immature Granulocyte % (Auto) 2 % Neutrophils (%) (Auto) 82 H 42-75 % Lymphocytes (%) (Auto) 9 L 12-44 % Monocytes (%) (Auto) 6 0-12 % Eosinophils (%) (Auto) 0 0-10 % Basophils (%) (Auto) 0 0-10 % Neutrophils # (Auto) 10.5 H 1.8-7.8 10^3/uL Lymphocytes # (Auto) 1.2 1.0-4.0 10^3/uL Monocytes # (Auto) 0.8 0.0-1.0 10^3/uL Eosinophils # (Auto) 0.0 0.0-0.3 10^3/uL Basophils # (Auto) 0.0 0.0-0.1 10^3/uL Immature Granulocyte # (Auto) 0.3 H 0.0-0.1 10^3/uL D-Dimer 0.37 0.00-0.49 UG/ML Sodium Level 137 135-145 MMOL/L Potassium Level 3.9 3.6-5.0 MMOL/L Chloride Level 100 98-107 MMOL/L Carbon Dioxide Level 21 21-32 MMOL/L Anion Gap 16 H 5-14 MMOL/L Blood Urea Nitrogen 44 H 7-18 MG/DL Creatinine 2.22 H 0.60-1.30 MG/DL Estimat Glomerular Filtration Rate 34 BUN/Creatinine Ratio 20 Glucose Level 313 H 70-105 MG/DL Calcium Level 9.7 8.5-10.1 MG/DL Corrected Calcium 9.5 8.5-10.1 MG/DL Magnesium Level 2.0 1.6-2.4 MG/DL Total Bilirubin 0.5 0.1-1.0 MG/DL Aspartate Amino Transf (AST/SGOT) 24 5-34 U/L Alanine Aminotransferase (ALT/SGPT) 50 0-55 U/L Alkaline Phosphatase 83 40-136 U/L Troponin I < 0.028 < 0.028 <0.028 NG/ML C-Reactive Protein High Sensitivity 0.14 0.00-0.50 MG/DL B-Type Natriuretic Peptide < 10.0 <100.0 PG/ML Total Protein 7.7 6.4-8.2 GM/DL Albumin 4.2 3.2-4.5 GM/DL Procalcitonin 0.07 <0.10 NG/ML Blood Gas Puncture Site R RAD Blood Gas Patient Temperature 36.3 Arterial Blood pH 7.46 H 7.37-7.43 Arterial Blood Partial Pressure CO2 35 35-45 MMHG Arterial Blood Partial Pressure O2 85 79-93 MMHG Arterial Blood HCO3 25 23-27 MMOL/L Arterial Blood Total CO2 25.9 21.0-31.0 MMOL/L Arterial Blood Oxygen Saturation 96 94-100 % Arterial Blood Base Excess 1.2 -2.5-2.5 MMOL/L Janusz Test YES-POS Blood Gas Ventilator Setting NO Blood Gas Inspired Oxygen ROOM AIR My Orders Orders - JOEL HANSON Bnp Liss (06/22/21 18:22) Fibrin Degradation Products (06/22/21 18:22) Hs C Reactive Protein (06/22/21 18:22) Procalcitonin (Pct) (06/22/21 18:22) Cbc With Automated Diff (06/22/21 18:22) Comprehensive Metabolic Panel (06/22/21 18:22) Magnesium (06/22/21 18:22) Troponin I [place] (06/22/21 18:22) Continuous Ekg Monitoring (06/22/21 18:22) Ekg Tracing (06/22/21 18:22) Chest 1 View, Ap/Pa Only (06/22/21 18:22) Insulin (Regular) Human (Novolin R (Per (06/22/21 19:00) Ed Iv/Invasive Line Start (06/22/21 19:00) Ns Iv 1000 Ml (Sodium Chloride 0.9%) (06/22/21 19:00) Ns Iv 1000 Ml (Sodium Chloride 0.9%) (06/22/21 19:00) Ed Iv/Invasive Line Start (06/22/21 19:08) Ns Iv 1000 Ml (Sodium Chloride 0.9%) (06/22/21 19:15) Acetaminophen Tablet (Tylenol Tablet) (06/22/21 19:15) Troponin I Liss (06/22/21 20:00) Arterial Blood Gas (06/22/21 19:56) Medications Given in ED Current Medications Medications Dose Ordered Sig/Lamin Route Start Time Stop Time Status Last Admin Dose Admin Acetaminophen 1,000 mg ONCE ONCE PO 06/22/21 19:15 06/22/21 19:16 DC 06/22/21 19:51 1,000 MG Insulin Human Regular 5 unit ONCE ONCE SC 06/22/21 19:00 06/22/21 19:01 DC 06/22/21 19:10 5 UNIT Vital Signs/I&O 06/22/21 18:00 Temp 36.3 Pulse 110 Resp 24 B/P (MAP) 124/92 (103) O2 Delivery Room Air Capillary Refill : Less Than 3 Seconds Blood Pressure Mean: 103 Progress Note #1: Time: 19:11 Progress Note Negative D-dimer rules out a significant blood clot. His chest x-ray does not reveal any bacterial superinfection. Labs and markers of inflammation for bacterial infection are also likewise unremarkable. He is dry and has a little bit of a elevation of his creatinine over his normal of 1-1.5. We will give him a couple liters of fluids and see if that does not help. We will also obtain an ABG. If everything looks okay then he could go home on his CPAP and continue to monitor symptoms. We did reinforce the need to wear his CPAP at all times with sleeping. We did go over return precautions. Patient asked if he would be allowed for just an observation stay overnight and we explained to him that this will be dependent on is finding something that he needs to be in the hospital for. Delta troponin at 2000. Progress Note #2: Time: 22:16 Progress Note Suspicious that the patient is merely experiencing the hypoxic readings on a centimeter when he sleeps without the CPAP. His obstructive sleep apnea seems to be coinciding with his COVID-19. Otherwise he seems to be weathering it well and has had good oxygen saturations without increased work of breathing on room air since he is been in the ER. His delta troponin is negative. We did discuss the case with his per his wishes. Plan to offer him the opportunity to go home and wear his CPAP. He is already on steroids. We did give him some fluids and if he is feeling better than this will be the plan. ECG Initial ECG Impression Date: Jun 22, 2021 Initial ECG Impression Time: 18:12 Initial ECG Rate: 111 Initial ECG Rhythm: S.Tach Initial ECG Intervals: Normal Initial ECG Impression: Normal Initial ECG Comparisson: No Previous ECG Available Comment Sinus tachycardia without clinically relevant ST elevation or depression Diagnostic Imaging Diagonstic Imaging: Xray Plain Films/CT/US/NM/MRI: chest Comments Unremarkable chest unchanged on previous imaging. [facility]. [place], [place] NAME: LUCI MCMULLEN [facility] REC#: [id number] PT STATUS: REG ER : 1965 PHYSICIAN: JOEL HANSON MD ADMIT DATE: 06/22/21/ER Signed Date of Exam:06/22/21 CHEST 1 VIEW, AP/PA ONLY EXAMINATION: Chest 1 view. HISTORY: Shortness of breath. COMPARISON: 11/22/2020. FINDINGS: The lung volumes are normal. No focal consolidation is seen. No large pleural effusion or pneumothorax is seen. The cardiomediastinal silhouette is normal in size and contour. No acute osseous abnormality is seen. IMPRESSION: No acute pleuroparenchymal process. Dictated by: Dictated on workstation # [id number] Dict: 06/22/211911 Trans: 06/22/211923 [facility] [id number] Interpreted by: MELINDA YBARRA DO Electronically signed by: MELINDA YBARRA DO 06/22/211923 Reviewed: Reviewed by Me Departure Impression Primary Impression: COVID-19 Additional Impression: Obstructive sleep apnea Disposition: HOME, SELF-CARE Condition: Stable Departure-Patient Inst. Decision time for Depature: 22:18 Referrals: IRINEO GONSALEZ DO (PCP/Family) Primary Care Physician Patient Instructions: COVID-19 (DC) Add. Discharge Instructions: Drink plenty of fluids. Your low bit dehydrated so you need to increase her fluid intake over the next week. I recommend sports drinks, water. Avoid caffeine for now. Tylenol and Motrin as necessary for headache, body aches or fever. Continue taking your medications as prescribed. Zofran 1 tablet every 6 hours necessary for nausea or vomiting. Tessalon Perles 1 tablet every 6 hours necessary for cough. Wear your CPAP at all times that you are sleeping. Return to the ER promptly if you are having oxygen saturations below 90% while at rest. All discharge instructions reviewed with patient and/or family. Voiced understanding. Scripts Benzonatate (TESSALON PERLES) 100 Mg Capsule 100 MG PO Q6H PRN for COUGH, #30 CAP 0 Refills Prov: JOEL HANSON 06/22/21 Ondansetron (Ondansetron Odt) 4 Mg Tab.rapdis 4 MG PO Q6H PRN for NAUSEA/VOMITING, #20 TAB 0 Refills Prov: JOEL HANSON 06/22/21 Copy Copies To 1: IRINEO GONSALEZ TITUS J Jun 22, 2021 19:13
[2021-06-22] MEDS ORDERED: ACETAMINOPHEN 500 MG TAB (TYLENOL) PO ONE (19:15)
[2021-06-22 20:06] LABS: ABG BASE EXCESS 1.2 MMOL/L (-2.5-2.5); ABG OXYGEN SATURATION 96 % (94-100); ABG PCO2 35 MMHG (35-45); ABG PH 7.46 (7.37-7.43); ABG PO2 85 MMHG (79-93); ABG TCO2 25.9 MMOL/L (21.0-31.0)
[2021-06-22 20:07] LABS: ALLENS TEST YES-POS
[2021-06-22 20:08] LABS: INSPIRED O2 ROOM AIR; PATIENT TEMP 36.3; VENTILATOR NO
[2021-06-22] MEDS ORDERED: BENZ100C18 PO (22:42)
[2021-06-22] MEDS ORDERED: ONDA4TAB11 PO (22:42)
[2021-06-22] MEDS ORDERED: RX-ALBUTEROL INHALER 8.5 GM HFA (PROAIR) IH STA (22:42)
[2021-06-22 23:00] VITALS: BP 129/95
== END 2021-06-22 23:00 | disposition home or self-care (01) ==
LOC: EDUNIT# 17:51 → ER 17:54
DX: U07.1 COVID-19 (principal); G47.33 Obstructive sleep apnea (adult) (pediatric); E11.9 Type 2 diabetes mellitus without complications; E78.00 Pure hypercholesterolemia, unspecified; I10 Essential (primary) hypertension; Z99.89 Dependence on other enabling machines and devices; Z79.899 Other long term (current) drug therapy; Z79.84 Long term (current) use of oral hypoglycemic drugs
CPT/HCPCS: 36415; 71045; 80053; 82805; 83735; 83880; 84145; 84484; 85025; 85379; 86141; 87040; 93005; 96360; 96372

== ENCOUNTER → 2021-08-05 | Outpatient (CLI) | payer MEDICARE, OTHER ==
[~2021-08-05] MED LIST changes: +BENZ100C18 PO; +ONDA4TAB11 PO
--- NOTE | 2021-08-05 16:38 | Diagnostic Imaging Report ---
Clinical Indication: Patient with elevated heart rate post COVID. Edema. Comparison: Ultrasound venous Doppler evaluation of both lower extremities dated 09/05/2020. Procedure: Ultrasound venous ultrasound of the bilateral lower extremity with multiple real-time grayscale images were obtained in various projections. Additional spectral analysis and color Doppler duple images were also obtained. Findings: The deep venous system is well visualized and is easily compressible. There is no evidence of deep venous thrombosis, valvular incompetence, or significant collateral circulation. There is no fluid collection in the popliteal fossa. Impression: There is no ultrasound Doppler evidence of deep venous thrombosis in the bilateral lower extremities. Dictated by: Dictated on workstation # [id number]
== END ==
LOC: RAD 15:30
PROVIDERS: ATTEND Physician Assistant
DX: R60.0 Localized edema (principal)
CPT/HCPCS: 93970

== ENCOUNTER 2021-10-22 13:35 | Inpatient (IN) | payer MEDICARE, OTHER ==
[~2021-10-22] VITALS: Ht 182.9 cm; Wt 109.7 kg
[~2021-10-22 13:35] MED LIST changes: -FENO134C PO; +FENO134C21 PO; -FEXO-46 PO; +NF-ALLE180 PO
[2021-10-22] MEDS ORDERED: ASPIRIN 81 MG CHEW (CHILDREN'S ASA) PO STA (13:53)
--- NOTE | 2021-10-22 13:53 | ED Chest Pain ---
General Chief Complaint: Chest Pain Stated Complaint: CP,HIGH BP Nursing Triage Note: pt presents to ed with complaints of cp that started around 1100 today. pt reports pain radiates across his chest and goes into his neck. pt denies n/v. History of Present Illness Date Seen by Provider: October 22, 2021 Time Seen by Provider: 13:47 Initial Comments 55-year-old male with PMH of CAD with 4 stents in 2019/RIAZ/GERD/anxiety, is here with complaints of left-sided chest pain which began around noon today. Pain has been progressively worsening and is almost constant in nature. Pain level is reported to be 9/10. Patient took all of his morning meds today including a baby aspirin. Patient did not have nitro at home to take because he ran out. Denies fever, nausea and vomiting, diarrhea, shortness of breath, dizziness, headache. Allergies and Home Medications Allergies Coded Allergies: No Known Drug Allergies (Unverified , 12/29/19) Patient Home Medication List Home Medication List Reviewed: Yes Allopurinol (Allopurinol) 300 Mg Tablet, 300 MG PO DAILY, (Reported) Entered as Reported by: PATRICIA VALENZUELA on 10/08/20 160 Ascorbic Acid (Vitamin C) 1,000 Mg Tablet, 1,000 MG PO BID, (Reported) Entered as Reported by: PATRICIA VALENZUELA on 10/08/20 160 Aspirin (Aspirin EC) 81 Mg Tablet.dr, 81 MG PO DAILY, (Reported) Entered as Reported by: PATRICIA VALENZUELA on 10/08/20 160 Baclofen (Baclofen) 10 Mg Tablet, 10 MG PO TID PRN for SPASMS, (Reported) Entered as Reported by: PATRICIA VALENZUELA on 10/08/20 160 Benzonatate (Tessalon Perles) 100 Mg Capsule, 100 MG PO Q6H PRN for COUGH Prescribed by: JOEL HANSON on 06/22/21 2242 Carvedilol (Carvedilol) 3.125 Mg Tablet, 3.125 MG PO BID, (Reported) Entered as Reported by: WEI JIMENEZ on 12/19/20 1302 Cholecalciferol (Vitamin D3) (Vitamin D3) 125 Mcg Capsule, 125 MCG PO DAILY, (Reported) Entered as Reported by: PATRICIA VALENZUELA on 10/08/20 1607 Evolocumab (Repatha Sureclick) 140 Mg/1 Ml Pen.injctr, 140 MG SQ UD, (Reported) Entered as Reported by: WEI JIMENEZ on 12/19/20 130 Fenofibrate,Micronized (Fenofibrate) 134 Mg Capsule, 134 MG PO HS, (Reported) Entered as Reported by: PATRICIA VALENZUELA on 10/08/20 160 Fluticasone/Salmeterol (Advair 250-50 Diskus) 1 Each Blst.w.dev, 1 EACH IH DAILY, (Reported) Entered as Reported by: WEI JIMENEZ on 12/19/20 130 Furosemide (Furosemide) 40 Mg Tablet, 40 MG PO DAILY, (Reported) Entered as Reported by: PATRICIA VALENZUELA on 10/08/201606 Hydrocodone/Acetaminophen (Hydrocodone-Acetamin 5-325 mg) 1 Each Tablet, 1 TAB PO Q4H PRN for PAIN-MODERATE (5-7), (Reported) Entered as Reported by: WEI JIMENEZ on 12/19/20 130 Hydroxyzine HCl (Hydroxyzine HCl) 10 Mg Tablet, 10 MG PO Q6H PRN for ANXIETY, (Reported) Entered as Reported by: PATRICIA VALENZUELA on 10/08/20 160 Insulin Regular, Human (Humulin R U-500 Kwikpen) 500 Unit/1 Ml Insuln.pen, 10 UNIT SQ AC Prescribed by: IRINEO GONSALEZ on 10/09/20 0859 Isosorbide Mononitrate (Isosorbide Mononitrate ER) 30 Mg Tab.er.24h, 30 MG PO DAILY, (Reported) Entered as Reported by: PATRICIA VALENZUELA on 10/08/201606 Lisinopril (Lisinopril) 10 Mg Tablet, 10 MG PO DAILY, (Reported) Entered as Reported by: PATRICIA VALENZUELA on 10/08/201606 Magnesium Oxide (Magnesium) 400 Mg Tablet, 400 MG PO BIDAC, (Reported) Entered as Reported by: PATRICIA VALENZUELA on 10/08/20 160 Metformin HCl (Metformin HCl) 500 Mg Tablet, 500 MG PO DAILY, (Reported) Entered as Reported by: WEI JIMENEZ on 12/19/20 130 Montelukast Sodium (Montelukast Sodium) 10 Mg Tablet, 10 MG PO HS, (Reported) Entered as Reported by: PATRICIA VALENZUELA on 10/08/20 160 Montelukast Sodium (Singulair) 10 Mg Tablet, 10 MG PO DAILY, (Reported) Entered as Reported by: WEI JIMENEZ on 12/19/20 130 Nitroglycerin (Nitroglycerin) 0.4 Mg Tab.subl, 0.4 MG SL UD PRN for CHEST PAIN, (Reported) Entered as Reported by: PATRICIA VALENZUELA on 10/08/20 160 Sweeden-3 Acid Ethyl Esters (Lovaza) 1 Gm Capsule, 2 GM PO BID, (Reported) Entered as Reported by: PATRICIA VALENZUELA on 10/08/20 160 Omeprazole (Omeprazole) 40 Mg Capsule.dr, 40 MG PO DAILY Prescribed by: PAM TA on 12/21/20 1217 Ondansetron (Ondansetron Odt) 4 Mg Tab.rapdis, 4 MG PO Q6H PRN for NAUSEA/VOMITING Prescribed by: JOEL HANSON on 06/22/21 2242 Pitavastatin Calcium (Livalo) 4 Mg Tablet, 4 MG PO DAILY, (Reported) Entered as Reported by: WEI JIMENEZ on 12/19/20 130 Prasugrel HCl (Prasugrel HCl) 10 Mg Tablet, 10 MG PO DAILY, (Reported) Entered as Reported by: PATRICIA VALENZUELA on 10/08/20 160 Sucralfate (Sucralfate) 1 Gm Tablet, 1 GM PO ACHS, (Reported) Entered as Reported by: WEI JIMENEZ on 12/19/20 130 Tamsulosin HCl (Flomax) 0.4 Mg Cap, 0.4 MG PO 1800 Prescribed by: IRINEO GONSALEZ on 10/09/20 0859 Ubidecarenone (Co Q-10) 100 Mg Capsule, 100 MG PO DAILY, (Reported) Entered as Reported by: PATRICIA VALENZUELA on 10/08/20 160 Review of Systems Review of Systems Constitutional: no symptoms reported EENTM: No Symptoms Reported Respiratory: No Symptoms Reported Cardiovascular: Chest Pain Gastrointestinal: No Symptoms Reported Genitourinary: No Symptoms Reported Musculoskeletal: no symptoms reported Skin: no symptoms reported Psychiatric/Neurological: No Symptoms Reported Endocrine: No Symptoms Reported Hematologic/Lymphatic: No Symptoms Reported Past Myzzjvl-Nyahth-Jgbsrx Hx Patient Social History Tobacco Use?: No Substance use?: No Alcohol Use?: No Pt feels they are or have been: No Immunizations Up To Date Tetanus Booster (TDap): Unknown PED Vaccines UTD: No First/Initial COVID19 Vaccinat: NONE Second COVID19 Vaccination Nathan: NONE Third COVID19 Vaccination Date: NONE Seasonal Allergies Seasonal Allergies: Yes Past Medical History Surgery/Hospitalization HX: RIAZ, RENAL FAILURE, CARDIAC STENTS, HIGH CHOLESTEROL, DM Surgeries: Yes Abdominal, Gallbladder, Orthopedic Respiratory: Yes Pneumonia, Sleep Apnea, COPD Currently Using CPAP: No Currently Using BIPAP: Yes Cardiac: Yes (NSTEMI 03/2019; STENTS X 4) Chronic Edema/Swelling, Coronary Artery Disease, High Cholesterol, Hypertension Neurological: Yes Neuropathy Reproductive Disorders: No Sexually Transmitted Disease: No HIV/AIDS: No Genitourinary: Yes (CHRONIC RENAL INSUFFICIENCY) Benign Prostatic Hyperpl, Bladder Infection, Renal Failure Gastrointestinal: Yes Chronic Constipation Musculoskeletal: Yes Degenerate Disk Disease, Arthritis, Gout Endocrine: Yes (OBESITY) Diabetes, Insulin dep HEENT: No Tonsilitis Loss of Vision: Denies Hearing Impairment: Denies Cancer: No Psychosocial: Yes Anxiety, Depression Integumentary: No Blood Disorders: No Adverse Reaction/Blood Tranf: No (N/A) Family Medical History Abdominal aortic aneurysm 09 BROTHER Cancer 03 MOTHER Cancer of colon 03 MOTHER 09 SISTER 19 MOTHER FH: COPD (chronic obstructive pulmonary disease) 19 FATHER FH: leukemia 09 SISTER 19 MOTHER FHx: stroke 19 FATHER Family history: Diabetes mellitus 09 BROTHER 09 SISTER 09 SISTER 09 SISTER Family history: Gastrointestinal disease 03 MOTHER 09 BROTHER Cancer, Diabetes, Hypertension, Stroke SOCIAL HISTORY: -ETOH--HISTORY OF MODERATE TO HEAVY USE -DRUGS--DENIES USE -DENIES SMOKING, BUT HAS CHEWED TOBACCO PAST SURGICAL HISTORY: -CARDIAC CATHS--STENTS X 4 -EGD'S -COLONOSCOPIES/POLYPECTOMY -MULTIPLE BACK [id number] FUSION AND PLATES/RODS; NERVE STIMULATOR-REMOVED -LITHOTRIPSY -LEFT KNEE SCOPE/ACL REPAIR -WISDOM TEETH -TONSILLECTOMY/ADEONOIDECTOMY -APPENDECTOMY -CHOLECYSTECTOMY -ABDOMINAL LAPAROTOMY FOR BOWEL OBSTRUCTIONS/LYSIS OF ADHESIONS -VENTRAL HERNIA REPAIR -CHERYL FUNDOPLICATION -BILATERAL CARPAL TUNNEL -RIGHT WRIST FX/ORIF CARDIAC CATH 07/18/[address] RODRÍGUEZ: FINDINGS: Hemodynamics LV 135/15, end-diastolic pressure 15 Aorta 143/80 mean of 107 ANATOMY: Left Main is free of obstructive disease Left Anterior Descending is slightly tortuous, disease in a small diagonal branch, nonobstructive disease Ramus intermedius is moderate in size, has moderate to severe ostial stenosis, distally there is moderate disease Left Circumflex is moderate in size with small vessel disease in the distal circumflex artery nonobstructive disease Right Coronory Artery has diffuse ectasia, stent is patent the distal right coronary artery, small vessel disease distally LV Gram was not done, pressure was measured CONCLUSION: 1. Moderate to severe ostial ramus intermedius branch that is small to moderate in size. Distal disease, medical therapy is recommended 2. Tortuous LAD with moderate disease in a small diagonal artery that could be responsible for the chest pain 3. Diffuse ectasia in the right coronary artery with patent stent, small vessel disease distally 4. Small vessel disease in the circumflex artery distally 5. Normal left ventricular end-diastolic pressure DISCUSSION AND RECOMMENDATION: Medical therapy is recommended, no intervention is warranted Anesthesia Type: Conscious Sedation Estimated blood loss (mL): 25 ml Contrast Amount: 34 ml Total Radiation Dose: 550 mGy Post-Procedure Diagnosis Post-operative diagnosis: Unstable angina Coronary artery disease Hypertension Hyperlipidemia Coronary artery disease, patient had non-ST elevation myocardial infarction, underwent cardiac catheterization on April 11, 2019 revealing subtotal occlusion with diffuse ectasia in the distal right coronary artery, complex intervention requiring guide liner and multiple balloons, then deployment of Maday 423 mm stent with excellent results. Proximal RCA has diffuse ectasia with 50 percent stenosis, distal right PDA subtotally occluded, fairly small artery, will be treated medically. Severe stenosis at the distal circumflex artery with long lesion involving the obtuse marginal branch, proper circumflex and AV groove branch, all arteries are less than 2 mm in diameter. 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 Mild to moderate ectasia in LAD with mild to moderate disease diffusely, nonobstructive disease. Underwent cardiac catheterization on May 03, [address] Cartagena with 2.2532 mm Promus drug-eluting stent to the circumflex artery. Underwent repeat cardiac catheterization on May 21, 2019 revealing multivessel CAD with FFR confirmation of mta-gwnh-disstbkw disease in RCA and flow-limiting disease in mid LAD. Agi-oygf-eayoaobl in proximal LAD. [id number] Synergy stent to mid LAD. Most recent cardiac catheterization done June 10, 2019 with 2.0x 12mm drug eluting Cristopher stent to first diagonal. Maintained on Effient and aspirin. Physical Exam Vital Signs Vital Signs - First Documented 10/22/21 13:44 Temp 36.3 Pulse 85 Resp 18 B/P (MAP) 163/105 (124) Pulse Ox 98 Capillary Refill : Less Than 3 Seconds Height, Weight, BMI Height: 5'11.00" Weight: 260lbs. 8.0oz. 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 Norm as Tested Skin: Normal Color Progress/Results/Core Measures Results/Orders Lab Results Laboratory Tests Test 10/22/21 13:48 10/22/21 14:26 10/22/21 15:42 Range/Units White Blood Count 10.7 4.3-11.0 10^3/uL Red Blood Count 4.75 4.30-5.52 10^6/uL Hemoglobin 15.6 13.3-17.7 g/dL Hematocrit 45 40-54 % Mean Corpuscular Volume 96 80-99 fL Mean Corpuscular Hemoglobin 33 25-34 pg Mean Corpuscular Hemoglobin Concent 34 32-36 g/dL Red Cell Distribution Width 12.7 10.0-14.5 % Platelet Count 159 130-400 10^3/uL Mean Platelet Volume 11.1 9.0-12.2 fL Immature Granulocyte % (Auto) 1 % Neutrophils (%) (Auto) 71 42-75 % Lymphocytes (%) (Auto) 18 12-44 % Monocytes (%) (Auto) 8 0-12 % Eosinophils (%) (Auto) 2 0-10 % Basophils (%) (Auto) 1 0-10 % Neutrophils # (Auto) 7.6 1.8-7.8 10^3/uL Lymphocytes # (Auto) 1.9 1.0-4.0 10^3/uL Monocytes # (Auto) 0.9 0.0-1.0 10^3/uL Eosinophils # (Auto) 0.2 0.0-0.3 10^3/uL Basophils # (Auto) 0.1 0.0-0.1 10^3/uL Immature Granulocyte # (Auto) 0.1 0.0-0.1 10^3/uL Prothrombin Time 13.3 12.2-14.7 SEC INR Comment 1.0 0.8-1.4 Activated Partial Thromboplast Time 32 24-35 SEC D-Dimer 0.31 0.00-0.49 UG/ML Sodium Level 144 135-145 MMOL/L Potassium Level 4.1 3.6-5.0 MMOL/L Chloride Level 104 98-107 MMOL/L Carbon Dioxide Level 25 21-32 MMOL/L Anion Gap 15 H 5-14 MMOL/L Blood Urea Nitrogen 30 H 7-18 MG/DL Creatinine 1.50 H 0.60-1.30 MG/DL Estimat Glomerular Filtration Rate 54 BUN/Creatinine Ratio 20 Glucose Level 147 H 70-105 MG/DL Calcium Level 10.4 H 8.5-10.1 MG/DL Corrected Calcium 10.2 H 8.5-10.1 MG/DL Magnesium Level 1.9 1.6-2.4 MG/DL Total Bilirubin 0.5 0.1-1.0 MG/DL Aspartate Amino Transf (AST/SGOT) 41 H 5-34 U/L Alanine Aminotransferase (ALT/SGPT) 57 H 0-55 U/L Alkaline Phosphatase 74 40-136 U/L Troponin I < 0.028 < 0.028 <0.028 NG/ML B-Type Natriuretic Peptide 15.7 <100.0 PG/ML Total Protein 7.6 6.4-8.2 GM/DL Albumin 4.3 3.2-4.5 GM/DL Lipase 26 8-78 U/L Serum Alcohol < 10 <10 MG/DL Urine Color YELLOW Urine Clarity CLEAR Urine pH 6.0 5-9 Urine Specific [place] 1.025 H 1.016-1.022 Urine Protein 2+ H NEGATIVE Urine Glucose (UA) NEGATIVE NEGATIVE Urine Ketones NEGATIVE NEGATIVE Urine Nitrite NEGATIVE NEGATIVE Urine Bilirubin NEGATIVE NEGATIVE Urine Urobilinogen 0.2 < = 1.0 MG/DL Urine Leukocyte Esterase NEGATIVE NEGATIVE Urine RBC (Auto) NEGATIVE NEGATIVE Urine RBC RARE /HPF Urine WBC NONE /HPF Urine Crystals NONE /LPF Urine Bacteria NEGATIVE /HPF Urine Casts NONE /LPF Urine Mucus NEGATIVE /LPF Urine Culture Indicated NO Urine Opiates Screen POSITIVE H NEGATIVE Urine Oxycodone Screen NEGATIVE NEGATIVE Urine Methadone Screen NEGATIVE NEGATIVE Urine Propoxyphene Screen NEGATIVE NEGATIVE Urine Barbiturates Screen NEGATIVE NEGATIVE Ur Tricyclic Antidepressants Screen NEGATIVE NEGATIVE Urine Phencyclidine Screen NEGATIVE NEGATIVE Urine Amphetamines Screen NEGATIVE NEGATIVE Urine Methamphetamines Screen NEGATIVE NEGATIVE Urine Benzodiazepines Screen POSITIVE H NEGATIVE Urine Cocaine Screen NEGATIVE NEGATIVE Urine Cannabinoids Screen NEGATIVE NEGATIVE My Orders Orders - SHA LARA MD Ekg Tracing (10/22/21 13:47) Ekg Tracing (10/22/21 13:47) Aspirin Chewable Tablet (Baby Aspirin Ch (10/22/21 13:53) Nitroglycerin 0.4 Mg Btl 25's (Nitrostat (10/22/21 14:00) Morphine Injection (Morphine Injection (10/22/21 13:54) Cbc With Automated Diff (10/22/21 13:55) Magnesium (10/22/21 13:55) Chest 1 View, Ap/Pa Only (10/22/21 13:55) Ekg Tracing (10/22/21 13:55) Comprehensive Metabolic Panel (10/22/21 13:55) Protime With Inr (10/22/21 13:55) Partial Thromboplastin Time (10/22/21 13:55) O2 (10/22/21 13:55) Monitor-Rhythm Ecg Trace Only (10/22/21 13:55) Ed Iv/Invasive Line Start (10/22/21 13:55) Troponin I Mchenry (10/22/21 13:55) Bnp Mchenry (10/22/21 13:58) Fibrin Degradation Products (10/22/21 13:58) Aspirin Chewable Tablet (Baby Aspirin Ch (10/22/21 13:55) Drug Screen Stat (Urine) (10/22/21 14:18) Ua Culture If Indicated (10/22/21 14:18) Alcohol (10/22/21 14:20) Morphine Injection (Morphine Injection (10/22/21 14:32) Troponin I Liss (10/22/21 15:08) Lipase (10/22/21 13:48) Famotidine Injection (Pepcid Injection) (10/22/21 15:45) Antacid Suspension (Mylanta Suspension (10/22/21 15:45) Acetaminophen Tablet/Caplet (Tylenol T (10/22/21 16:30) Famotidine Injection (Pepcid Injection) (10/22/21 16:30) Antacid Suspension (Mylanta Suspension (10/22/21 16:30) Nitro Drip 28030 Mcg/D5w (Nitroglycerin (10/22/21 17:13) Ed Admission (Communication) (10/22/21 17:30) Medications Given in ED Current Medications Medications Dose Ordered Sig/Lamin Route Start Time Stop Time Status Last Admin Dose Admin Acetaminophen 650 mg ONCE ONCE PO 10/22/21 16:30 10/22/21 16:31 DC 10/22/21 16:57 650 MG Al Hydrox/Mg Hydrox/Simethicone 30 ml ONCE ONCE PO 10/22/21 15:45 10/22/21 15:46 DC 10/22/21 16:19 30 ML Famotidine 20 mg ONCE ONCE IVP 10/22/21 15:45 10/22/21 15:46 DC 10/22/21 16:19 20 MG Nitroglycerin 0.4 mg UD PRN SL 10/22/21 14:00 10/22/21 14:42 0.4 MG Vital Signs/I&O 10/22/21 13:44 Temp 36.3 Pulse 85 Resp 18 B/P (MAP) 163/105 (124) Pulse Ox 98 Blood Pressure Mean: 124 Progress Progress Note : Progress Note 1. CHEST PAIN/ ACS RULE OUT: - CXR normal - EKG x2 : non-ischemic - Troponin x2 negative - BNP/ D-dimer and Coag panel/ CBC/ CMP: unremarkable - ASA 243 mg STAT since pt took 81mg at home before coming - Sublingual nitro STAT x 2 - Morphine 1mg iv STAT, then later 2mg - NS IVF - Pepcid / Maalox - DISCUSSED WITH PT'S FORESTRY PILOT, Dr Kincaid, advised Nitro drip and admit to ICU - Pt continues to have pain, will benefit from Observation unit admission and cardiology consult. Initial ECG Impression Date: October 22, 2021 Initial ECG Impression Time: 13:52 Initial ECG Rhythm: Normal Sinus Initial ECG Intervals: Normal Initial ECG Impression: Normal Diagnostic Imaging Diagonstic Imaging: Xray Plain Films/CT/US/NM/MRI: chest Comments [facility]. [place], [place] NAME: LUCI MCMULLEN [facility] REC#: [id number] PT STATUS: REG ER : 1965 PHYSICIAN: SHA LARA MD ADMIT DATE: 10/22/21/ER Draft Date of Exam:10/22/21 CHEST 1 VIEW, AP/PA ONLY INDICATION: Chest pain. Portable AP upright view of the chest is obtained with comparison made to study of 06/22/2021. FINDINGS: Heart size and pulmonary vascularity are within normal limits, and the lungs are clear, bilaterally. IMPRESSION: Unremarkable chest. Dictated on workstation # [id number] Dict: 10/22/21 1407 Trans: 10/22/21 1409 [id number] Interpreted by: LESLY FLORES MD Electronically signed by: Departure Communication (Admissions) Time/Spoke to Admitting Phy: 17:[address] gonsalez Time/Spoke to Consulting Phy: 17:10 DISCUSSED WITH PT'S FORESTRY PILOT, Dr Kincaid, advised Nitro drip and admit to ICU Impression Primary Impression: Chest pain Qualified Codes: R07.9 - Chest pain, unspecified Disposition: 30 STILL A PATIENT Condition: Stable Admissions Decision to Admit Reason: Admit from ER (General) Decision to Admit/Date: October 22, 2021 Time/Decision to Admit Time: 16:42 Departure-Patient Inst. Referrals: IRINEO GONSALEZ DO (PCP/Family) Primary Care Physician SHA LARA MD October 22, 2021 13:53
[2021-10-22] MEDS ORDERED: morphine INJ 10 MG/ML 1ML (SYR OR VIAL) IVP STA ×2 (13:54→14:32)
[2021-10-22] MEDS ORDERED: ASPIRIN 81 MG CHEW (CHILDREN'S ASA) ONE (13:55)
[2021-10-22] MEDS: NITROGLYCERIN 0.4 MG SL TABS BTL 25'S SL PRN ×2 (13:58→14:42)
[2021-10-22 14:05] LABS: BASOPHILS # (AUTO) 0.1 10^3/uL (0.0-0.1); BASOPHILS % (AUTO) 1 % (0-10); EOSINOPHILS # (AUTO) 0.2 10^3/uL (0.0-0.3); EOSINOPHILS % (AUTO) 2 % (0-10); HEMATOCRIT 45 % (40-54); HEMOGLOBIN 15.6 g/dL (13.3-17.7); LYMPHOCYTES # (AUTO) 1.9 10^3/uL (1.0-4.0); LYMPHOCYTES % (AUTO) 18 % (12-44); MEAN CORPUSCULAR HEMOGLOBIN 33 pg (25-34); MEAN CORPUSCULAR HGB CONC 34 g/dL (32-36); MEAN CORPUSCULAR VOLUME 96 fL (80-99); MEAN PLATELET VOLUME 11.1 fL (9.0-12.2); MONOCYTES # (AUTO) 0.9 10^3/uL (0.0-1.0); MONOCYTES % (AUTO) 8 % (0-12); NEUTROPHILS # (AUTO) 7.6 10^3/uL (1.8-7.8); NEUTROPHILS % (AUTO) 71 % (42-75); PLATELET COUNT 159 10^3/uL (130-400); WHITE BLOOD COUNT 10.7 10^3/uL (4.3-11.0)
[2021-10-22 14:06] LABS: ALBUMIN 4.3 GM/DL (3.2-4.5)
[2021-10-22 14:07] LABS: POTASSIUM 4.1 MMOL/L (3.6-5.0)
[2021-10-22 14:08] LABS: CALCIUM 10.4 MG/DL (8.5-10.1)
[2021-10-22 14:09] LABS: PROTHROMBIN TIME PATIENT 13.3 SEC (12.2-14.7); TOTAL PROTEIN 7.6 GM/DL (6.4-8.2)
--- NOTE | 2021-10-22 14:09 | Diagnostic Imaging Report ---
INDICATION: Chest pain. Portable AP upright view of the chest is obtained with comparison made to study of 06/22/2021. FINDINGS: Heart size and pulmonary vascularity are within normal limits, and the lungs are clear, bilaterally. IMPRESSION: Unremarkable chest. Dictated by: Dictated on workstation # [id number]
[2021-10-22 14:11] LABS: BILIRUBIN,TOTAL 0.5 MG/DL (0.1-1.0)
[2021-10-22 14:13] LABS: CREATININE SERUM 1.5 MG/DL (0.60-1.30)
[2021-10-22 14:15] LABS: MAGNESIUM 1.9 MG/DL (1.6-2.4)
[2021-10-22 14:35] LABS: BILIRUBIN,URINE NEGATIVE (NEGATIVE); CLARITY,URINE CLEAR; COLOR,URINE YELLOW; GLUCOSE, URINE (UA) NEGATIVE (NEGATIVE); KETONES,URINE NEGATIVE (NEGATIVE); LEUKOCYTE ESTERASE ,URINE NEGATIVE (NEGATIVE); NITRITE,URINE NEGATIVE (NEGATIVE); PROTEIN,URINE 2+ (NEGATIVE)
[2021-10-22 14:42] LABS: BACTERIA,URINE NEGATIVE /HPF; RBC,URINE RARE /HPF
[2021-10-22 14:48] LABS: AMPHETAMINE SCREEN, URINE NEGATIVE (NEGATIVE); BARBITURATE SCREEN URINE NEGATIVE (NEGATIVE); BENZODIAZEPINES SCREEN URINE POSITIVE (NEGATIVE); CANNABINOID SCREEN, URINE NEGATIVE (NEGATIVE); COCAINE SCREEN URINE NEGATIVE (NEGATIVE); METHADONE STAT NEGATIVE (NEGATIVE); OPIATE SCREEN URINE POSITIVE (NEGATIVE); OXYCODONE STAT NEGATIVE (NEGATIVE); PROPOXYPHENE STAT NEGATIVE (NEGATIVE); TRICYCLIC ANTIDEPRESSANTS SCRE NEGATIVE (NEGATIVE)
[2021-10-22 15:40] LABS: LIPASE 26 U/L (8-78)
[2021-10-22] MEDS ORDERED: ANTACID SUSP 30 ML UDC (MYLANTA) PO ONE ×2 (15:45→16:30)
[2021-10-22] MEDS ORDERED: FAMOTIDINE 20MG/2ML IV (PEPCID) IVP ONE ×2 (15:45→16:30)
[2021-10-22] MEDS ORDERED: ACETAMINOPHEN 325 MG TABLET PO ONE (16:30)
[2021-10-22] MEDS ORDERED: NITRO DRIP 25000 MCG/D5W 250 ML IV STA (17:13)
--- NOTE | 2021-10-22 19:44 | Tele-ICU Progress Note ---
Subjective Date Seen by a Provider: October 22, 2021 Time Seen by a Provider: 19:10 Subjective/Events-last exam This virtual visit was conducted using real time audio/video. Thank you for asking us to see this patient for cheain. Recent events: NTG headache. PMH: CAD/ 4 stents, COPD, RIAZ/CPAP, HTN., HL, BPH, gout, DM2, anx., GERD. SH: smoking history N FH: Non-contributory ROS: as in HPI. PE: Obese. Resting comfortably. VSS. O2 sat 96% on 2 LPM HEENT: No obvious masses, adenopathy or JVD. Chest: clear to auscultation. Diminished. CV: RRR S1 S2 No murmur or added sounds. Abd: Non-tender. Bowel sounds Y. : Unremarkable. Mcbride N. THERAPIST RESPIRATORY/psychiatric: Grossly intact. No obvious focal findings. Extremities: 1+ edema. Capillary refill < 3 seconds. Skin: unremarkable. Results: Elevated BUN 30, Creat. 1.5, BG 147. CXR: Hyperinflated w clear mcintyre. Available chart/ vitals / labs / images reviewed. Video assessment done using teleICU camera, rest of exam as per RN. A/P: Respiratory insufficiency: Continue present management with O2 Monitor for increasing oxygenation needs and/or need for intubation. Critical Care: critically ill patient. Cont. NTG drip. Add tylenol and 1400 ADA low Na diet. Discussed with SYD Patricia. Asked RN to reach out to eICU if any questions or concerns later. Time spent with patient/coordination of care with other health professionals (mins):30 Sepsis Event Evaluation Height, Weight, BMI Height: 5'11.00" Weight: 260lbs. 8.0oz. 117.194313fc; 38.00 BMI Method:Stated Exam Exam Patient acknowledged, consented, and participated in this virtual visit which was conducted using real time audio/video Vital Signs Date Time Temp Pulse Resp B/P (MAP) Pulse Ox O2 Delivery O2 Flow Rate FiO2 10/22/21 19:00 95 18 155/103 95 10/22/21 17:39 99 159/107 10/22/21 13:44 36.3 85 18 163/105 (124) 98 Height & Weight Height: 5'11.00" Weight: 260lbs. 8.0oz. 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 Critical Care: Critically Ill Patient FLORI RAMEY MD October 22, 2021 19:44
[2021-10-22] MEDS: ACETAMINOPHEN 325 MG TABLET PO PRN (21:50)
[2021-10-23] MEDS: ACETAMINOPHEN 325 MG TABLET PO PRN (03:18)
[2021-10-23] MEDS: morphine INJ 4 MG/ML 1 ML (VIAL/SYRINGE) IVP PRN ×4 (03:35→07:11)
--- NOTE | 2021-10-23 06:34 | History & Physical ---
History of Present Illness HPI/Chief Complaint CC: Unstable angina HPI: This is a 55 yr old male clinic pt of mine with multiple comorbidities including: CAD, severe hypercholesterolemia, and diabetes with insulin resistance. He presented to the ER with chest pain. Dr. Núñez recommended nitroglycerin drip and ICU admission. He underwent cardiac catheterization topa tran. No intervention but he still remains with malignant hypertension. Clonidine given. He will be monitored closely and medication changes will be made. Source: patient, family, RN/MD, old records Exam Limitations: no limitations Date Seen 10/23/21 Time Seen by a Provider: 09:30 Attending Physician Pat Gonsalez DO PCP Admitting Physician: Pat Gonsalez DO Attending Physician: Pat Gonsalez DO Referring Physician Date of Admission October 22, 2021 at 17:31 Home Medications & Allergies Home Medications Reviewed patient Home Medication Reconciliation performed by pharmacy medication reconciliations range technician and/or nursing. Patients Allergies have been reviewed. Allergies Allergies Coded Allergies No Known Drug Allergies (Unverified12/29/19) Past Dabbgec-Gwegmi-Ckobkp Hx Past Med/Social Hx: Reviewed Nursing Past Med/Soc Hx, Reviewed and Corrections made Patient Social History Marrital Status: Employed/Student: retired Alcohol Use: Occasionally Uses Alcohol Beverage of Choice: Beer Smoking Status: Never a Smoker Type Used: Cigarettes 2nd Hand Smoke Exposure: No Recent Hopitalizations: No Immunizations Up To Date Tetanus Booster (TDap): Unknown Pediatric: No Date of Pneumonia Vaccine: Mar 21, 2018 Date of Influenza Vaccine: Mar 21, 2020 Seasonal Allergies Seasonal Allergies: Yes Past Medical History Surgeries: Abdominal, Gallbladder, Orthopedic Respiratory: Chronic Bronchitis, COPD, Pneumonia, Sleep Apnea Currently Using CPAP: No Currently Using BIPAP: Yes Cardiac: Chronic Edema/Swelling, Coronary Artery Disease, High Cholesterol, H ypertension Neurological: Neuropathy Reproductive: No Sexually Transmitted Disease: No HIV/AIDS: No Genitourinary: Benign Prostatic Hyperpl, Bladder Infection, Renal Failure Gastrointestinal: Chronic Constipation Musculoskeletal: Degenerate Disk Disease, Arthritis, Gout Endocrine: Diabetes, Insulin dep HEENT: Tonsilitis Loss of Vision: Denies Hearing Impairment: Denies Psychosocial: Anxiety, Depression History of Blood Disorders: No Adverse Reaction to Blood Chen: No (N/A) Family History Abdominal aortic aneurysm 09 BROTHER Cancer 03 MOTHER Cancer of colon 03 MOTHER 09 SISTER 19 MOTHER FH: COPD (chronic obstructive pulmonary disease) 19 FATHER FH: leukemia 09 SISTER 19 MOTHER FHx: stroke 19 FATHER Family history: Diabetes mellitus 09 BROTHER 09 SISTER 09 SISTER 09 SISTER Family history: Gastrointestinal disease 03 MOTHER 09 BROTHER Cancer, Diabetes, Hypertension, Stroke SOCIAL HISTORY: -ETOH--HISTORY OF MODERATE TO HEAVY USE -DRUGS--DENIES USE -DENIES SMOKING, BUT HAS CHEWED TOBACCO PAST SURGICAL HISTORY: -CARDIAC CATHS--STENTS X 4 -EGD'S -COLONOSCOPIES/POLYPECTOMY -MULTIPLE BACK [id number] FUSION AND PLATES/RODS; NERVE STIMULATOR-REMOVED -LITHOTRIPSY -LEFT KNEE SCOPE/ACL REPAIR -WISDOM TEETH -TONSILLECTOMY/ADEONOIDECTOMY -APPENDECTOMY -CHOLECYSTECTOMY -ABDOMINAL LAPAROTOMY FOR BOWEL OBSTRUCTIONS/LYSIS OF ADHESIONS -VENTRAL HERNIA REPAIR -CHERYL FUNDOPLICATION -BILATERAL CARPAL TUNNEL -RIGHT WRIST FX/ORIF CARDIAC CATH 07/18/[address] NÚÑEZ: FINDINGS: Hemodynamics LV 135/15, end-diastolic pressure 15 Aorta 143/80 mean of 107 ANATOMY: Left Main is free of obstructive disease Left Anterior Descending is slightly tortuous, disease in a small diagonal branch, nonobstructive disease Ramus intermedius is moderate in size, has moderate to severe ostial stenosis, distally there is moderate disease Left Circumflex is moderate in size with small vessel disease in the distal circumflex artery nonobstructive disease Right Coronory Artery has diffuse ectasia, stent is patent the distal right coronary artery, small vessel disease distally LV Gram was not done, pressure was measured CONCLUSION: 1. Moderate to severe ostial ramus intermedius branch that is small to moderate in size. Distal disease, medical therapy is recommended 2. Tortuous LAD with moderate disease in a small diagonal artery that could be responsible for the chest pain 3. Diffuse ectasia in the right coronary artery with patent stent, small vessel disease distally 4. Small vessel disease in the circumflex artery distally 5. Normal left ventricular end-diastolic pressure DISCUSSION AND RECOMMENDATION: Medical therapy is recommended, no intervention is warranted Anesthesia Type: Conscious Sedation Estimated blood loss (mL): 25 ml Contrast Amount: 34 ml Total Radiation Dose: 550 mGy Post-Procedure Diagnosis Post-operative diagnosis: Unstable angina Coronary artery disease Hypertension Hyperlipidemia Coronary artery disease, patient had non-ST elevation myocardial infarction, underwent cardiac catheterization on April 11, 2019 revealing subtotal occlusion with diffuse ectasia in the distal right coronary artery, complex intervention requiring guide liner and multiple balloons, then deployment of Maday 423 mm stent with excellent results. Proximal RCA has diffuse ectasia with 50 percent stenosis, distal right PDA subtotally occluded, fairly small artery, will be treated medically. Severe stenosis at the distal circumflex artery with long lesion involving the obtuse marginal branch, proper circumflex and AV groove branch, all arteries are less than 2 mm in diameter. 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 Mild to moderate ectasia in LAD with mild to moderate disease diffusely, nonobstructive disease. Underwent cardiac catheterization on May 03, [address] Cartagena with 2.2532 mm Promus drug-eluting stent to the circumflex artery. Underwent repeat cardiac catheterization on May 21, 2019 revealing multivessel CAD with FFR confirmation of hjy-oopz-vnugdjbn disease in RCA and flow-limiting disease in mid LAD. Alt-cnvy-bowykach in proximal LAD. [id number] Synergy stent to mid LAD. Most recent cardiac catheterization done June 10, 2019 with 2.0x 12mm drug eluting [place] stent to first diagonal. Maintained on Effient and aspirin. Review of Systems Constitutional: see HPI, malaise, weakness EENTM: no symptoms reported Respiratory: dyspnea on exertion Cardiovascular: chest pain Gastrointestinal: no symptoms reported Genitourinary: no symptoms reported Musculoskeletal: no symptoms reported Skin: no symptoms reported Psychiatric/Neurological: No Symptoms Reported All Other Systems Reviewed Negative Unless Noted: Yes Physical Exam Physical Exam Vital Signs Vital Signs - First Documented 10/22/21 10/22/21 13:44 19:30 Temp 36.3 Pulse 85 Resp 18 B/P (MAP) 163/105 (124) Pulse Ox 98 O2 Delivery Nasal Cannula O2 Flow Rate 2.00 Capillary Refill : Less Than 3 Seconds Height, Weight, BMI Height: 5'11.00" Weight: 260lbs. 8.0oz. 117.468188az; 32.79 BMI Method:Stated General Appearance: No Apparent Distress, WD/WN, Anxious, Chronically ill, Obese HEENT: PERRL/EOMI, Normal ENT Inspection Neck: Full Range of Motion Respiratory: Chest Non Tender, Lungs Clear, Normal Breath Sounds, No Accessory Muscle Use, No Respiratory Distress Cardiovascular: Regular Rate, Rhythm, No Edema, Normal Peripheral Pulses, Other (pedal edema +1) Gastrointestinal: Normal Bowel Sounds, Non Tender, Soft Extremity: Normal Inspection, Normal Range of Motion Neurologic/Psychiatric: Alert, Oriented x3, No Motor/Sensory Deficits, Normal Mood/Affect, bindery technician II-XII Norm as Tested Skin: Normal Color Results Results/Procedures Labs Laboratory Tests 10/22/21 13:48 10/23/21 10:02 10/24/21 04:49 Patient resulted labs reviewed. Assessment/Plan Admission Diagnosis Assessment: Chest pain/Unstable angina s/p cath without intervention revealing moderate CAD COPD myopathy Severe RIAZ previous untreated causing acute respiratory failure 09/05/20 s/p vent dependence now wearing/tolerating home biPAP machine DM with severe insulin resistance HTN malignant type HLP CAD previous stents Angina CRI Spine disease Anemia Thrombocytopenia Plan: Supportive care Blood pressure control Appreciate Dr. Núñez Admission Status: Inpatient Order (span 2 midnights) Reason for Inpatient Admission: angina Diagnosis/Problems Diagnosis/Problems (1) Chest pain Status: Acute Qualifiers: Chest pain type: unspecified Qualified Codes: R07.9 - Chest pain, unspecified (2) Obstructive sleep apnea Status: Acute (3) Chronic pain Status: Chronic (4) RIAZ (obstructive sleep apnea) PAT GONSALEZ DO Oct 23, 2021 06:34
[2021-10-23 06:50] VITALS: BP 129/80
[2021-10-23] MEDS ORDERED: ONDANSETRON 4 MG (ZOFRAN) ORAL DISSOLVE TAB PO PRN (07:30)
[2021-10-23] MEDS ORDERED: MELATONIN 3 MG TABLET PO PRN (07:30)
[2021-10-23] MEDS ORDERED: ANTACID SUSP 30 ML UDC (MYLANTA) PO PRN (07:30)
[2021-10-23] MEDS ORDERED: diphenhydrAMINE 50 MG/ML INJ (BENADRYL) IVP PRN (07:30)
[2021-10-23] MEDS ORDERED: morphine INJ 4 MG/ML 1 ML (VIAL/SYRINGE) IV PRN (07:30)
[2021-10-23] MEDS ORDERED: diphenhydrAMINE 25 MG TAB (BENADRYL) PO PRN (07:30)
[2021-10-23] MEDS ORDERED: BACLOFEN 10 MG (LIORESAL) TAB PO PRN (07:30)
[2021-10-23] MEDS ORDERED: HYDROcodone/APAP 7.5 MG/325 MG (LORTAB, LORCET PLUS) TABLET PO PRN (07:30)
[2021-10-23] MEDS ORDERED: CALCIUM CARBONATE 500 MG (TUMS) TAB.CHEW PO PRN (07:30)
[2021-10-23] MEDS ORDERED: ACETAMINOPHEN 325 MG TABLET PO PRN (07:30)
[2021-10-23] MEDS ORDERED: PATIENT MAY USE OWN MEDS, ALL PO SCH ×2 (07:30→10:15)
[2021-10-23] MEDS ORDERED: ONDANSETRON 4 MG/2 ML (SDV) Z0FRAN IV PRN (07:30)
[2021-10-23] MEDS ORDERED: polyethylene glycoL POWDER 17 GM (MIRALAX) PACK PO PRN (07:30)
[2021-10-23] MEDS ORDERED: BISACODYL 10 MG SUPP (DULCOLAX) PR PRN (07:30)
[2021-10-23] MEDS ORDERED: MILK OF MAGNESIA 400 MG/5 ML 30 ML UDC PO PRN (07:30)
[2021-10-23] MEDS ORDERED: LACTULOSE SYRUP 10GM/15ML (ENULOSE) 30ML UDC PO PRN (07:30)
[2021-10-23] MEDS ORDERED: NS IV 1000 ML 1,000 ML ONE ×2 (07:53→08:51)
[2021-10-23] MEDS: NITRO DRIP 25000 MCG/D5W 250 ML IV SCH (08:06)
--- NOTE | 2021-10-23 08:10 | Consultation-Cardiology ---
HPI-Cardiology Cardiology Consultation Date of Consultation 10/23/21 Date of Admission Time Seen by Provider: 08:07 Indication: Chest pain HPI 55 years old gentleman with extensive history of coronary artery disease, he was doing well maintained on long-acting nitroglycerin started to have severe chest pain 9-10 over 10 in intensity, came into the emergency room had some relieved with nitroglycerin but continued to have severe chest pain. Cardiac enzymes and EKG did not show any acute abnormality. Blood pressure was elevated. He was started on nitroglycerin drip. This morning he is feeling better, still having some active chest discomfort. Described the pain as severe in the retrosternal area radiating to the upper chest and jaw. No shortness of breath. No palpitation. No syncope. Home Medications & Allergies Allergies: Coded Allergies: No Known Drug Allergies (Unverified , 12/29/19) Home Medication List Reviewed: Yes VVH-Rbzwmi-Aekchl Hx Patient Social History Marital Status: Employed/Student: employed Smoking Status: Never a Smoker Type Used: Cigarettes 2nd Hand Smoke Exposure: No Recent Hopitalizations: No Alcohol Use?: No Immunizations Up To Date Tetanus Booster (TDap): Unknown Date of Pneumonia Vaccine: Mar 21, 2018 Date of Influenza Vaccine: Mar 21, 2020 Past Medical History Discussed below Family Medical History Significant Family History: Cancer, Diabetes, Hypertension, Stroke Family History: Abdominal aortic aneurysm 09 BROTHER Cancer 03 MOTHER Cancer of colon 03 MOTHER 09 SISTER 19 MOTHER FH: COPD (chronic obstructive pulmonary disease) 19 FATHER FH: leukemia 09 SISTER 19 MOTHER FHx: stroke 19 FATHER Family history: Diabetes mellitus 09 BROTHER 09 SISTER 09 SISTER 09 SISTER Family history: Gastrointestinal disease 03 MOTHER 09 BROTHER Review of Systems-General Review of Systems Constitutional: no symptoms reported, see HPI, malaise, weakness EENTM: see HPI, no symptoms reported Respiratory: no symptoms reported, see HPI Cardiovascular: see HPI, chest pain; No edema, No Hx of Intervention, No palpitations, No syncope, No vascular heart diseas, No other Gastrointestinal: no symptoms reported, see HPI Genitourinary: no symptoms reported, see HPI Musculoskeletal: no symptoms reported, see HPI Skin: no symptoms reported, see HPI Psychiatric/Neurological: No Symptoms Reported, See HPI Reviewed Test Results Reviewed Test Results Lab Laboratory Tests Test 10/22/21 13:48 10/22/21 14:10/22/21 15:42 Range/Units White Blood Count 10.7 4.3-11.0 10^3/uL Red Blood Count 4.75 4.30-5.52 10^6/uL Hemoglobin 15.6 13.3-17.7 g/dL Hematocrit 45 40-54 % Mean Corpuscular Volume 96 80-99 fL Mean Corpuscular Hemoglobin 33 25-34 pg Mean Corpuscular Hemoglobin Concent 34 32-36 g/dL Red Cell Distribution Width 12.7 10.0-14.5 % Platelet Count 159 130-400 10^3/uL Mean Platelet Volume 11.1 9.0-12.2 fL Immature Granulocyte % (Auto) 1 % Neutrophils (%) (Auto) 71 42-75 % Lymphocytes (%) (Auto) 18 12-44 % Monocytes (%) (Auto) 8 0-12 % Eosinophils (%) (Auto) 2 0-10 % Basophils (%) (Auto) 1 0-10 % Neutrophils # (Auto) 7.6 1.8-7.8 10^3/uL Lymphocytes # (Auto) 1.9 1.0-4.0 10^3/uL Monocytes # (Auto) 0.9 0.0-1.0 10^3/uL Eosinophils # (Auto) 0.2 0.0-0.3 10^3/uL Basophils # (Auto) 0.1 0.0-0.1 10^3/uL Immature Granulocyte # (Auto) 0.1 0.0-0.1 10^3/uL Prothrombin Time 13.3 12.2-14.7 SEC INR Comment 1.0 0.8-1.4 Activated Partial Thromboplast Time 32 24-35 SEC D-Dimer 0.31 0.00-0.49 UG/ML Sodium Level 144 135-145 MMOL/L Potassium Level 4.1 3.6-5.0 MMOL/L Chloride Level 104 98-107 MMOL/L Carbon Dioxide Level 25 21-32 MMOL/L Anion Gap 15 H 5-14 MMOL/L Blood Urea Nitrogen 30 H 7-18 MG/DL Creatinine 1.50 H 0.60-1.30 MG/DL Estimat Glomerular Filtration Rate 54 BUN/Creatinine Ratio 20 Glucose Level 147 H 70-105 MG/DL Calcium Level 10.4 H 8.5-10.1 MG/DL Corrected Calcium 10.2 H 8.5-10.1 MG/DL Magnesium Level 1.9 1.6-2.4 MG/DL Total Bilirubin 0.5 0.1-1.0 MG/DL Aspartate Amino Transf (AST/SGOT) 41 H 5-34 U/L Alanine Aminotransferase (ALT/SGPT) 57 H 0-55 U/L Alkaline Phosphatase 74 40-136 U/L Troponin I < 0.028 < 0.028 <0.028 NG/ML B-Type Natriuretic Peptide 15.7 <100.0 PG/ML Total Protein 7.6 6.4-8.2 GM/DL Albumin 4.3 3.2-4.5 GM/DL Lipase 26 8-78 U/L Serum Alcohol < 10 <10 MG/DL Urine Color YELLOW Urine Clarity CLEAR Urine pH 6.0 5-9 Urine Specific Walker 1.025 H 1.016-1.022 Urine Protein 2+ H NEGATIVE Urine Glucose (UA) NEGATIVE NEGATIVE Urine Ketones NEGATIVE NEGATIVE Urine Nitrite NEGATIVE NEGATIVE Urine Bilirubin NEGATIVE NEGATIVE Urine Urobilinogen 0.2 < = 1.0 MG/DL Urine Leukocyte Esterase NEGATIVE NEGATIVE Urine RBC (Auto) NEGATIVE NEGATIVE Urine RBC RARE /HPF Urine WBC NONE /HPF Urine Crystals NONE /LPF Urine Bacteria NEGATIVE /HPF Urine Casts NONE /LPF Urine Mucus NEGATIVE /LPF Urine Culture Indicated NO Urine Opiates Screen POSITIVE H NEGATIVE Urine Oxycodone Screen NEGATIVE NEGATIVE Urine Methadone Screen NEGATIVE NEGATIVE Urine Propoxyphene Screen NEGATIVE NEGATIVE Urine Barbiturates Screen NEGATIVE NEGATIVE Ur Tricyclic Antidepressants Screen NEGATIVE NEGATIVE Urine Phencyclidine Screen NEGATIVE NEGATIVE Urine Amphetamines Screen NEGATIVE NEGATIVE Urine Methamphetamines Screen NEGATIVE NEGATIVE Urine Benzodiazepines Screen POSITIVE H NEGATIVE Urine Cocaine Screen NEGATIVE NEGATIVE Urine Cannabinoids Screen NEGATIVE NEGATIVE Physical Exam Physical Exam Vital Signs Vital Signs - First Documented 10/22/21 10/22/21 13:44 19:30 Temp 36.3 Pulse 85 Resp 18 B/P (MAP) 163/105 (124) Pulse Ox 98 O2 Delivery Nasal Cannula O2 Flow Rate 2.00 Capillary Refill : Less Than 3 Seconds Height, Weight, BMI Height: 5'11.00" Weight: 260lbs. 8.0oz. 117.488411ev; 32.79 BMI Method:Stated General Appearance: No Apparent Distress, WD/WN, Anxious, Obese Eyes: Bilateral Eye Normal Inspection, Bilateral Eye PERRL, Bilateral Eye EOMI HEENT: PERRL/EOMI Neck: Full Range of Motion Respiratory: Chest Non Tender, Lungs Clear, Normal Breath Sounds, No Accessory Muscle Use, No Respiratory Distress Cardiovascular: Regular Rate, Rhythm, Normal Peripheral Pulses, Other (pedal edema +1) Gastrointestinal: Normal Bowel Sounds, Non Tender, Soft Back: Normal Inspection, No CVA Tenderness, No Vertebral Tenderness Extremity: Normal Inspection, Normal Range of Motion Neurologic/Psychiatric: Alert, Oriented x3, No Motor/Sensory Deficits, Normal Mood/Affect, cryptanalyst II-XII Norm as Tested Skin: Normal Color Lymphatic: No Adenopathy A/P-Cardiology Admission Diagnosis Unstable angina Coronary artery disease Hypertensive urgency Hyperlipidemia Assessment/Plan Unstable angina. Requiring nitroglycerin drip. I will try to wean him off the drip and restart isosorbide. Planning for cardiac catheterization today Sinus tachycardia, better at this time. Continue to monitor Leg edema, reporting some improvement, Venous Doppler of the lower extremity was done on August 05, 2021 showing no evidence of DVT. Status post respiratory failure in September 2020 secondary to CO2 narcosis, recovered and underwent physical therapy and rehab and doing better and improving. Advanced kidney disease stage III, continue to monitor renal function Status post COVID-19 pneumonia end of May 2021, was hospitalized at [facility] in [place], recovered well, still having some residual dyspnea Coronary artery disease, -Patient had non-ST elevation myocardial infarction, underwent cardiac catheterization on April 11, 2019 revealing subtotal occlusion with diffuse ectasia in the distal right coronary artery, complex intervention requiring guide liner and multiple balloons, then deployment of Maday 423 mm stent with excellent results. Proximal RCA has diffuse ectasia with 50 percent stenosis, distal right PDA subtotally occluded, fairly small artery, will be treated medically. Severe stenosis at the distal circumflex artery with long lesion involving the obtuse marginal branch, proper circumflex and AV groove branch, all arteries are less than 2 mm in diameter. 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 Mild to moderate ectasia in LAD with mild to moderate disease diffusely, nonobstructive disease. -Cardiac catheterization on May 03, [address] Cartagena with 2.2532 mm Promus drug-eluting stent to the circumflex artery. -Cardiac catheterization on May 21, 2019 revealing multivessel CAD with FFR confirmation of [id number]-[id number] disease in RCA and flow-limiting disease in mid LAD. Bst-daju-umwjwtgy in proximal LAD. [id number] Synergy stent to mid LAD. -Cardiac catheterization done June 10, 2019 with 2.0x 12mm drug eluting [place] stent to first diagonal. -Cardiac catheterization done 07/18/20 showing moderate to severe ostial ramus intermedius branch that is small to moderate in size, distal disease. Tortuous LAD with moderate disease in a small diag artery that could be responsible for the chest pain, diffuse extasia in the RCA with patnet stent, small vessel disease distally. Sm vessel dz in the cx artery. Planning to proceed with cardiac catheterization possible PTCA Echocardiogram done May 2021 showing ejection fraction 45-50%, grade 1 diastolic dysfunction, PA 25-30 mmHg. Dyspnea on exertion, improving, undergoing physical therapy, improving. Status post respiratory failure. Continue to monitor Hypertension, severe hypertensive episode on arrival to the emergency room, hypertensive urgency, blood pressure is better at this time. Continue to monitor Hyperlipidemia, Maintained on pravastatin, fenofibrate and Repatha, was receiving steroids and had elevated blood sugars during his COVID-19 pneumonia infection in May 2021. Continue to monitor Diabetes mellitus, management per primary care physician Chronic renal insufficiency, cannot tolerate metformin. Nonobstructive carotid artery stenosis. last ultrasound done in September 2019. Continue to monitor COPD/obstructive sleep apnea Obesity, BMI is 32, we discussed weight loss Multiple back surgeries, recent knee surgery, recent umbilical hernia surgery Chronic back pain. ROSS RODRÍGUEZ MD Oct 23, 2021 08:10
[2021-10-23] MEDS ORDERED: LIDOCAINE 1% INJ 20 ML VIAL ONE ×2 (08:18→08:51)
[2021-10-23] MEDS ORDERED: HEParin (CATH LAB) 2,000 ML IV ONE (08:18)
[2021-10-23] MEDS: meTOprolol SUCCINATE 100 MG (TOPROL XL) TAB PO SCH (08:40)
[2021-10-23] MEDS: PRASUGREL 10 MG (EFFIENT) TABLET PO SCH (08:40)
[2021-10-23] MEDS: DOCUSATE SODIUM 100 MG (COLACE) CAP PO SCH ×2 (08:40→20:58)
[2021-10-23] MEDS: SENNOSIDES 8.6 MG (SENOKOT) TAB PO SCH ×2 (08:40→20:57)
[2021-10-23] MEDS ORDERED: HEParin (CATH LAB) 1,000 ML IV ONE (08:51)
[2021-10-23] MEDS ORDERED: PANTOPRAZOLE 40 MG (PROTONIX) TAB PO SCH ×2 (09:00→09:15)
[2021-10-23] MEDS ORDERED: ASPIRIN 325 MG (5 GR) TABLET PO SCH (09:00)
--- NOTE | 2021-10-23 09:02 | Conscious Sedation/ASA ---
Conscious Sedation Pre-Proced Time 09:02 ASA Score 3 For ASA 3 and 4: Consider anesthesia and medical clearance. Also, for patients with a history of failed moderate sedation consider anesthesia. Airway Lungs Heart ASA score ASA 1: a normal healthy patient ASA 2: a patient with a mild systemic disease (mid diabetes, controlled hypertension, obesity x ASA 3: a patient with a severe systemic disease that limits activity (angina, COPD, prior Myocardial infarction) ASA 4: a patient with an incapacitating disease that is a constant threat to life (CHF, renal failure) ASA 5: a moribund patient not expected to survive 24 hrs. (ruptured aneurysm) ASA 6: a declared brain- patient whose organs are being harvested. For emergent operations, add the letter E after the classification Mallampati Classification Grade 3 Sedation Plan Analgesia, Amnesia, Plan communicated to team members, Discussed options with patient/fam, Discussed risks with patient/fam The patient is an appropriate candidate to undergo the planned procedure, sedation, and anesthesia. The patient immediately re-assessed prior to indication. ROSS RODRÍGUEZ MD Oct 23, 2021 09:02
[2021-10-23] MEDS ORDERED: MIDAZOLAM 5 MG/5 ML (VERSED) VIAL ONE (09:03)
[2021-10-23] MEDS ORDERED: fentaNYL INJ 100 MCG/2 ML AMP ONE (09:03)
[2021-10-23] MEDS ORDERED: HEParin 1000 UNIT/ML (10ML VIAL) FOR BOLUS ONE (09:37)
[2021-10-23] MEDS ORDERED: ADENOSINE 90 MG/30 ML (ADENOSCAN) VIAL IV ONE (09:41)
[2021-10-23] MEDS ORDERED: meTOprolol SUCCINATE 100 MG (TOPROL XL) TAB PO SCH (10:00)
[2021-10-23 10:12] LABS: BASOPHILS # (AUTO) 0.1 10^3/uL (0.0-0.1); BASOPHILS % (AUTO) 1 % (0-10); EOSINOPHILS # (AUTO) 0.1 10^3/uL (0.0-0.3); EOSINOPHILS % (AUTO) 1 % (0-10); HEMATOCRIT 42 % (40-54); HEMOGLOBIN 14.2 g/dL (13.3-17.7); LYMPHOCYTES # (AUTO) 1.7 10^3/uL (1.0-4.0); LYMPHOCYTES % (AUTO) 15 % (12-44); MEAN CORPUSCULAR HEMOGLOBIN 33 pg (25-34); MEAN CORPUSCULAR HGB CONC 34 g/dL (32-36); MEAN CORPUSCULAR VOLUME 97 fL (80-99); MONOCYTES # (AUTO) 0.9 10^3/uL (0.0-1.0); MONOCYTES % (AUTO) 8 % (0-12); NEUTROPHILS # (AUTO) 8.2 10^3/uL (1.8-7.8); NEUTROPHILS % (AUTO) 75 % (42-75); PLATELET COUNT 151 10^3/uL (130-400)
--- NOTE | 2021-10-23 10:13 | Cardiac Cath Report ---
Cardiac Cath Report Physician (s)/Program Paraprofessional (s) Physician ROSS RODRÍGUEZ MD Pre-Procedure Diagnosis Pre-Procedure Diagnosis: Coronary artery disease, unstable angina Post-Procedure Note Procedure Start Date: Oct 23, 2021 Name of Procedure: Left heart catheterization FFR to the right coronary artery Findings/Procedure Note PROCEDURE NOTE: 55 years old gentleman with history of coronary artery disease, hypertension hyperlipidemia, admitted with unstable angina and hypertensive urgency, decided to proceed with cardiac catheterization possible PTCA. After explaining the procedure to the patient, all pros and cons were explained, all questions were answered. The patient signed the consent and then he was placed on the cardiac catheterization laboratory. Groin was prepped SL fashion local anesthesia was used. Sheath placed in the right femoral artery. [place] right and left catheter were used to access the coronary system. [place] right catheter was prolapsed to the left ventricular cavity, pressure was measured, pullback LV to aorta was done. Patient had borderline lesions in the mid and distal right coronary artery, I decided to proceed with FFR. Total of 3000 units of heparin were given, [place] right guide was advanced, I was unable to advance the pressure wire across the lesions. I used whisper extra-support wire and advanced it and parked it distally then I used it as a marylin wire for the pressure wire and I was able to advance the pressure wire to the distal portion. Then I retracted the whisper wire. FFR at baseline was 0.97, after 2 minutes of adenosine FFR was at the lowest of 0.83. Wires and guide were retracted At the end of the procedure the sheath was removed. Closure device was deployed FINDINGS: Hemodynamics LV 161/28, end-diastolic pressure of 28 Aorta 166/92 mean of 91 ANATOMY: Left Main has mild aneurysmal dilatation with mild disease nonobstructive dis ease Left Anterior Descending has patent stent in the mid LAD, there is mild to moderate stenosis at the proximal and mid LAD nonobstructive disease Left Circumflex has patent stent in the obtuse marginal branch with mild to moderate disease. Ramus intermedius has ostial stenosis 50 to 60%, did not change compared to the previous study Right Coronary Artery is large dominant artery with diffuse ectasia, there is patent stent proximally and patent stent distally, there are 2 area of moderate stenosis, FFR was 0.97 at baseline across both lesions and it was as low as 0.83 after adenosine challenge LV Gram was not done, pressure was measured CONCLUSION: 1. Diffuse coronary ectasia with patent stents in the mid LAD, obtuse marginal branch, proximal right coronary artery and distal right coronary artery. 2. Moderate stenosis at the mid and distal right coronary artery, FFR after adenosine was 0.83. 3. Mild to moderate stenosis in the mid LAD and nonobstructive disease 4. 50 to 60% stenosis at the ostium of the ramus intermedius. Did not change compared to the previous study DISCUSSION AND RECOMMENDATION: Patient had extensive disease, moderate disease at this point. We will continue with conservative management and monitor closely Anesthesia Type: Conscious Sedation Estimated blood loss (mL): 30 ml Contrast Amount: 50 ml Total Radiation Dose: 1128 mGy Post-Procedure Diagnosis Post-operative diagnosis: Unstable angina Hypertensive urgency Hyperlipidemia Chronic renal insufficiency ROSS RODRÍGUEZ MD Oct 23, 2021 10:13
[2021-10-23 10:30] LABS: ALBUMIN 3.9 GM/DL (3.2-4.5); BILIRUBIN,TOTAL 0.6 MG/DL (0.1-1.0); CALCIUM 9.1 MG/DL (8.5-10.1); CREATININE SERUM 1.28 MG/DL (0.60-1.30); POTASSIUM 3.8 MMOL/L (3.6-5.0); TOTAL PROTEIN 6.8 GM/DL (6.4-8.2)
[2021-10-23] MEDS: ENOXAPARIN 120 MG/0.8 ML (LOVENOX) SQ SCH ×2 (10:36→20:58)
[2021-10-23] MEDS ORDERED: INSU500I SQ ×2 (10:58→14:08)
--- NOTE | 2021-10-23 10:59 | Discharge Summary ---
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 HLP CAD previous stents Angina CRI Spine disease Anemia Thrombocytopenia Discharge Summary Discharge Physical Examination Allergies: Coded Allergies: No Known Drug Allergies (Unverified , 12/29/19) Vitals & I&Os Vital Signs Date Time Temp Pulse Resp B/P (MAP) Pulse Ox O2 Delivery O2 Flow Rate FiO2 10/24/21 11:00 101 128/77 96 Room Air 10/24/21 10:00 20 10/24/21 07:32 36.0 10/23/21 04:00 2.00 General Appearance: Alert, Oriented X3, Cooperative Respiratory: Clear to Auscultation Cardiovascular: Regular Rate Neuro: Normal Gait, Normal Speech, Strength at 5/5 X4 Ext Psych/Mental Status: Mental Status NL Hospital Course Was the Problem List Reviewed?: Yes Pt had an uneventful hospital course after he was admitted for chest pain. He received a nitroglycerin drip. Pt underwent cardiac cath showing moderate CAD no intervention. Malignant hypertension required Clonidine and medication changes. He was ultimately discharged in improved condition, with a bp log and I will see him in two weeks. Labs (last 24 hrs) Laboratory Tests 10/22/21 13:48: White Blood Count 10.7, Red Blood Count 4.75, Hemoglobin 15.6, Hematocrit 45, Mean Corpuscular Volume 96, Mean Corpuscular Hemoglobin 33, Mean Corpuscular Hemoglobin Concent 34, Red Cell Distribution Width 12.7, Platelet Count 159, Mean Platelet Volume 11.1, Immature Granulocyte % (Auto) 1, Neutrophils (%) (Auto) 71, Lymphocytes (%) (Auto) 18, Monocytes (%) (Auto) 8, Eosinophils (%) (Auto) 2, Basophils (%) (Auto) 1, Neutrophils # (Auto) 7.6, Lymphocytes # (Auto) 1.9, Monocytes # (Auto) 0.9, Eosinophils # (Auto) 0.2, Basophils # (Auto) 0.1, Immature Granulocyte # (Auto) 0.1, Prothrombin Time 13.3, INR Comment 1.0, Activated Partial Thromboplast Time 32, D-Dimer 0.31, Sodium Level 144, Potassium Level 4.1, Chloride Level 104, Carbon Dioxide Level 25, Anion Gap 15H, Blood Urea Nitrogen 30H, Creatinine 1.50H, Estimat Glomerular Filtration Rate 54, BUN/Creatinine Ratio 20, Glucose Level 147H, Calcium Level 10.4H, Corrected Calcium 10.2H, Magnesium Level 1.9, Total Bilirubin 0.5, Aspartate Amino Transf (AST/SGOT) 41H, Alanine Aminotransferase (ALT/SGPT) 57H, Alkaline Phosphatase 74, Troponin I < 0.028, B-Type Natriuretic Peptide 15.7, Total Protein 7.6, Albumin 4.3, Lipase 26, Serum Alcohol < 10 10/22/21 14:26: Urine Color YELLOW, Urine Clarity CLEAR, Urine pH 6.0, Urine Specific [place] 1.025H, Urine Protein 2+H, Urine Glucose (UA) NEGATIVE, Urine Ketones NEGATIVE, Urine Nitrite NEGATIVE, Urine Bilirubin NEGATIVE, Urine Urobilinogen 0.2, Urine Leukocyte Esterase NEGATIVE, Urine RBC (Auto) NEGATIVE, Urine RBC RARE, Urine WBC NONE, Urine Crystals NONE, Urine Bacteria NEGATIVE, Urine Casts NONE, Urine Mucus NEGATIVE, Urine Culture Indicated NO, Urine Opiates Screen POSITIVEH, Urine Oxycodone Screen NEGATIVE, Urine Methadone Screen NEGATIVE, Urine Propoxyphene Screen NEGATIVE, Urine Barbiturates Screen NEGATIVE, Ur Tricyclic Antidepressants Screen NEGATIVE, Urine Phencyclidine Screen NEGATIVE, Urine Amphetamines Screen NEGATIVE, Urine Methamphetamines Screen NEGATIVE, Urine Benzodiazepines Screen POSITIVEH, Urine Cocaine Screen NEGATIVE, Urine Cannabinoids Screen NEGATIVE 10/22/21 15:42: Troponin I < 0.028 10/23/21 10:02: White Blood Count 11.0, Red Blood Count 4.37, Hemoglobin 14.2, Hematocrit 42, Mean Corpuscular Volume 97, Mean Corpuscular Hemoglobin 33, Mean Corpuscular Hemoglobin Concent 34, Red Cell Distribution Width 12.7, Platelet Count 151, Mean Platelet Volume 11.0, Immature Granulocyte % (Auto) 1, Neutrophils (%) (Auto) 75, Lymphocytes (%) (Auto) 15, Monocytes (%) (Auto) 8, Eosinophils (%) (Auto) 1, Basophils (%) (Auto) 1, Neutrophils # (Auto) 8.2H, Lymphocytes # (Auto) 1.7, Monocytes # (Auto) 0.9, Eosinophils # (Auto) 0.1, Basophils # (Auto) 0.1, Immature Granulocyte # (Auto) 0.1, Sodium Level 140, Potassium Level 3.8, Chloride Level 104, Carbon Dioxide Level 24, Anion Gap 12, Blood Urea Nitrogen 30H, Creatinine 1.28, Estimat Glomerular Filtration Rate 66, BUN/Creatinine Ratio 23, Glucose Level 189H, Calcium Level 9.1, Corrected Calcium 9.2, Total Bilirubin 0.6, Aspartate Amino Transf (AST/SGOT) 44H, Alanine Aminotransferase (ALT/SGPT) 60H, Alkaline Phosphatase 56, Total Protein 6.8, Albumin 3.9 10/23/21 22:05: Troponin I < 0.028 10/24/21 04:49: Troponin I < 0.028, White Blood Count 9.3, Red Blood Count 4.84, Hemoglobin 15.7, Hematocrit 47, Mean Corpuscular Volume 96, Mean Corpuscular Hemoglobin 32, Mean Corpuscular Hemoglobin Concent 34, Red Cell Distribution Width 12.8, Platelet Count 148, Mean Platelet Volume 11.3, Immature Granulocyte % (Auto) 0, Neutrophils (%) (Auto) 69, Lymphocytes (%) (Auto) 21, Monocytes (%) (Auto) 8, Eosinophils (%) (Auto) 2, Basophils (%) (Auto) 0, Neutrophils # (Auto) 6.4, Lymphocytes # (Auto) 1.9, Monocytes # (Auto) 0.8, Eosinophils # (Auto) 0.2, Basophils # (Auto) 0.0, Immature Granulocyte # (Auto) 0.0, Sodium Level 141, Potassium Level 3.7, Chloride Level 102, Carbon Dioxide Level 23, Anion Gap 16H, Blood Urea Nitrogen 28H, Creatinine 1.35H, Estimat Glomerular Filtration Rate 62, BUN/Creatinine Ratio 21, Glucose Level 130H, Calcium Level 9.9, Corrected Calcium 9.7, Total Bilirubin 0.5, Aspartate Amino Transf (AST/SGOT) 46H, Alanine Aminotransferase (ALT/SGPT) 67H, Alkaline Phosphatase 63, Total Protein 7.6, Albumin 4.3, Triglycerides Level 263H, Cholesterol Level 82, LDL Cholesterol Direct 17, VLDL Cholesterol 53H, HDL Cholesterol 38L Pending Labs Laboratory Tests 10/22/21 13:48: White Blood Count 10.7, Red Blood Count 4.75, Hemoglobin 15.6, Hematocrit 45, Mean Corpuscular Volume 96, Mean Corpuscular Hemoglobin 33, Mean Corpuscular Hemoglobin Concent 34, Red Cell Distribution Width 12.7, Platelet Count 159, Mean Platelet Volume 11.1, Immature Granulocyte % (Auto) 1, Neutrophils (%) (Auto) 71, Lymphocytes (%) (Auto) 18, Monocytes (%) (Auto) 8, Eosinophils (%) (Auto) 2, Basophils (%) (Auto) 1, Neutrophils # (Auto) 7.6, Lymphocytes # (Auto) 1.9, Monocytes # (Auto) 0.9, Eosinophils # (Auto) 0.2, Basophils # (Auto) 0.1, Immature Granulocyte # (Auto) 0.1, Prothrombin Time 13.3, INR Comment 1.0, Activated Partial Thromboplast Time 32, D-Dimer 0.31, Sodium Level 144, Potassium Level 4.1, Chloride Level 104, Carbon Dioxide Level 25, Anion Gap 15, Blood Urea Nitrogen 30, Creatinine 1.50, Estimat Glomerular Filtration Rate 54, BUN/Creatinine Ratio 20, Glucose Level 147, Calcium Level 10.4, Corrected Calcium 10.2, Magnesium Level 1.9, Total Bilirubin 0.5, Aspartate Amino Transf (AST/SGOT) 41, Alanine Aminotransferase (ALT/SGPT) 57, Alkaline Phosphatase 74, Troponin I < 0.028, B-Type Natriuretic Peptide 15.7, Total Protein 7.6, Albumin 4.3, Lipase 26, Serum Alcohol < 10 10/22/21 14:26: Urine Color YELLOW, Urine Clarity CLEAR, Urine pH 6.0, Urine Specific [place] 1.025, Urine Protein 2+, Urine Glucose (UA) NEGATIVE, Urine Ketones NEGATIVE, Urine Nitrite NEGATIVE, Urine Bilirubin NEGATIVE, Urine Urobilinogen 0.2, Urine Leukocyte Esterase NEGATIVE, Urine RBC (Auto) NEGATIVE, Urine RBC RARE, Urine WBC NONE, Urine Crystals NONE, Urine Bacteria NEGATIVE, Urine Casts NONE, Urine Mucus NEGATIVE, Urine Culture Indicated NO, Urine Opiates Screen POSITIVE, Urine Oxycodone Screen NEGATIVE, Urine Methadone Screen NEGATIVE, Urine Propoxyphene Screen NEGATIVE, Urine Barbiturates Screen NEGATIVE, Ur Tricyclic Antidepressants Screen NEGATIVE, Urine Phencyclidine Screen NEGATIVE, Urine Amphetamines Screen NEGATIVE, Urine Methamphetamines Screen NEGATIVE, Urine Benzodiazepines Screen POSITIVE, Urine Cocaine Screen NEGATIVE, Urine Cannabinoids Screen NEGATIVE 10/22/21 15:42: Troponin I < 0.028 10/23/21 10:02: White Blood Count 11.0, Red Blood Count 4.37, Hemoglobin 14.2, Hematocrit 42, Mean Corpuscular Volume 97, Mean Corpuscular Hemoglobin 33, Mean Corpuscular Hemoglobin Concent 34, Red Cell Distribution Width 12.7, Platelet Count 151, Mean Platelet Volume 11.0, Immature Granulocyte % (Auto) 1, Neutrophils (%) (Auto) 75, Lymphocytes (%) (Auto) 15, Monocytes (%) (Auto) 8, Eosinophils (%) (Auto) 1, Basophils (%) (Auto) 1, Neutrophils # (Auto) 8.2, Lymphocytes # (Auto) 1.7, Monocytes # (Auto) 0.9, Eosinophils # (Auto) 0.1, Basophils # (Auto) 0.1, Immature Granulocyte # (Auto) 0.1, Sodium Level 140, Potassium Level 3.8, Chloride Level 104, Carbon Dioxide Level 24, Anion Gap 12, Blood Urea Nitrogen 30, Creatinine 1.28, Estimat Glomerular Filtration Rate 66, BUN/Creatinine Ratio 23, Glucose Level 189, Calcium Level 9.1, Corrected Calcium 9.2, Total Bilirubin 0.6, Aspartate Amino Transf (AST/SGOT) 44, Alanine Aminotransferase (ALT/SGPT) 60, Alkaline Phosphatase 56, Total Protein 6.8, Albumin 3.9 10/23/21 22:05: Troponin I < 0.028 10/24/21 04:49: Troponin I < 0.028, White Blood Count 9.3, Red Blood Count 4.84, Hemoglobin 15.7, Hematocrit 47, Mean Corpuscular Volume 96, Mean Corpuscular Hemoglobin 32, Mean Corpuscular Hemoglobin Concent 34, Red Cell Distribution Width 12.8, Platelet Count 148, Mean Platelet Volume 11.3, Immature Granulocyte % (Auto) 0, Neutrophils (%) (Auto) 69, Lymphocytes (%) (Auto) 21, Monocytes (%) (Auto) 8, Eosinophils (%) (Auto) 2, Basophils (%) (Auto) 0, Neutrophils # (Auto) 6.4, Lymphocytes # (Auto) 1.9, Monocytes # (Auto) 0.8, Eosinophils # (Auto) 0.2, Basophils # (Auto) 0.0, Immature Granulocyte # (Auto) 0.0, Sodium Level 141, Potassium Level 3.7, Chloride Level 102, Carbon Dioxide Level 23, Anion Gap 16, Blood Urea Nitrogen 28, Creatinine 1.35, Estimat Glomerular Filtration Rate 62, BUN/Creatinine Ratio 21, Glucose Level 130, Calcium Level 9.9, Corrected Calcium 9.7, Total Bilirubin 0.5, Aspartate Amino Transf (AST/SGOT) 46, Alanine Aminotransferase (ALT/SGPT) 67, Alkaline Phosphatase 63, Total Protein 7.6, Albumin 4.3, Triglycerides Level 263, Cholesterol Level 82, LDL Cholesterol Direct 17, VLDL Cholesterol 53, HDL Cholesterol 38 Discharge Home Medications: Active Scripts Active Jardiance (Empagliflozin) 10 Mg Tablet 10 Mg PO DAILY Clonidine HCl 0.1 Mg Tablet 0.1 Mg PO BID Nitroglycerin 0.4 Mg Tab.subl 0.4 Mg SL UD PRN Reported Humulin R U-500 (Insulin Regular, Human) 500 Unit/Ml (Concentrated) Vial 100 Unit SQ AC Multi-Vitamin Gummies (Folic Acid/Multivit-Min/Lutein) 200 Mcg-137.5 Mcg Tab.chew 2 Each PO HS Zinc (Zinc Amino Acid Chelate) 50 Mg Tablet 50 Mg PO DAILY Lisa Allergy (Fexofenadine HCl) 180 Mg Tablet 180 Mg PO DAILY Metoprolol Succinate 100 Mg Tab.er.24h 100 Mg PO DAILY Flomax (Tamsulosin HCl) 0.4 Mg Cap 0.4 Mg PO 1800 Co Q-10 (Ubidecarenone) 200 Mg Capsule 200 Mg PO DAILY TAKES 200MG AND 100MG TO TOTAL 300MG Proventil Hfa (Albuterol Sulfate) 6.7 Gm Hfa.aer.ad 1 Puff PO Q6H PRN Gabapentin 600 Mg Tablet 600 Mg PO TID Pantoprazole Sodium 40 Mg Tablet.dr 40 Mg PO BID Hydrocodone-Acetamin 5-325 mg (Hydrocodone/Acetaminophen) 1 Each Tablet 1 Tab PO Q4H PRN Repatha Sureclick (Evolocumab) 140 Mg/1 Ml Pen.injctr 140 Mg SQ UD Livalo (Pitavastatin Calcium) 4 Mg Tablet 4 Mg PO DAILY Co Q-10 (Ubidecarenone) 100 Mg Capsule 100 Mg PO DAILY TAKES 200MG +100MG TOGETHER TO EQUAL 300MG Prasugrel HCl 10 Mg Tablet 10 Mg PO DAILY Lovaza (Garrison-3 Acid Ethyl Esters) 1 Gm Capsule 2 Gm PO BID TAKES 2 (1GM) CAPS Montelukast Sodium 10 Mg Tablet 10 Mg PO HS Magnesium (Magnesium Oxide) 400 Mg Tablet 400 Mg PO BIDAC Isosorbide Mononitrate ER (Isosorbide Mononitrate) 30 Mg Tab.er.24h 30 Mg PO DAILY Furosemide 40 Mg Tablet 40 Mg PO DAILY Fenofibrate (Fenofibrate,Micronized) 134 Mg Capsule 134 Mg PO HS Vitamin D3 (Cholecalciferol (Vitamin D3)) 125 Mcg Capsule 125 Mcg PO DAILY Vitamin C (Ascorbic Acid) 1,000 Mg Tablet 1,000 Mg PO BID Allopurinol 300 Mg Tablet 300 Mg PO DAILY Hydroxyzine HCl 10 Mg Tablet 10 Mg PO Q6H PRN Aspirin EC (Aspirin) 81 Mg Tablet.dr 81 Mg PO DAILY Instructions to patient/family Please see electronic discharge instructions given to patient. IRINEO GONSALEZ DO Oct 23, 2021 10:59
[2021-10-23] MEDS: SUCRALFATE 1 GM (CARAFATE) TAB PO SCH ×3 (11:36→20:57)
[2021-10-23] MEDS: ISOSORBIDE MONONITRATE 30 MG (IMDUR) TAB PO SCH (11:36)
[2021-10-23] MEDS: NS IV 1000 ML 1,000 ML IV SCH (11:38)
[2021-10-23] MEDS ORDERED: FUROSEMIDE 40 MG (LASIX) TAB PO SCH (12:00)
[2021-10-23] MEDS: inSUlin (REGULAR) HUMAN 1 UNIT/0.01 ML (CHARGE PER UNIT) SC SCH ×2 (12:12→18:38)
[2021-10-23] MEDS ORDERED: cloNIDine 0.1 MG (CATAPRES) TAB PO ONE (12:30)
[2021-10-23] MEDS ORDERED: GBPN600T PO (12:44)
[2021-10-23] MEDS ORDERED: METO100T12 PO (12:44)
[2021-10-23] MEDS ORDERED: PANT40TA52 PO (12:44)
[2021-10-23] MEDS ORDERED: RT-ALBUINH PO (12:44)
[2021-10-23] MEDS ORDERED: METF-397 PO (12:59)
--- NOTE | 2021-10-23 13:00 | Discharge Inst-Post CATH ---
Discharge Inst-CATH/EP Problems Reviewed?: Yes Post Cardiac Cath/EP D/C Inst Follow Up/Plan Hold metformin for [address] Núñez's office in 2 to 4 weeks <b>CARDIAC CATH/EP PROCEDURE DISCHARGE INSTRUCTIONS</b> ACTIVITY * Go Home directly and rest. * Limit activity of the leg (or wrist if it was used) for 7 days including aerobics, swimming, jogging, bicycling, etc. * Restrict stair-climbing for 7 days if possible, if not, climb up with your non-cath leg, then bring together on the same step. * Avoid lifting, pushing, pulling or excessive movement of the affected extremity for 7 days. * Customary sexual activity may be resumed after 2 days-use caution not to use a position that strains or causes pain to the affected extremity. * No driving for 24 hours. * NO SMOKING. * Avoid straining for bowel movements for 7 days. * Gentle walking on level ground is allowed. * Returning to work will depend on the type of procedure and the results. Your doctor will discuss this with you. CALL YOUR DOCTOR FOR ANY OF THE FOLLOWING: *If bleeding from the puncture site occurs- Apply gentle pressure to site with clean cloth and call your doctor or EMS. * If a knot or lump forms under the skin, increases in size, or causes pain. * If bruising appears to be worsening or moving further down your leg instead of disappearing. * Temperature above 101 F. CARE OF YOUR GROIN INCISION; * Bruising or purple discoloration of the skin near the puncture site is common. * You may shower only, no bathtub bathing for 5 days. Be careful to avoid slipping as your leg may feel stiff. * If a closure device was used on your femoral artery, please see the attached guide regarding care of the device and your leg. * Leave dressing on FOR 24 hours. CARE OF YOUR WRIST INCISION; * Bruising or purple discoloration of the skin near the puncture site is common. * You may shower. * DO NOT submerge wrist. * Leave dressing on FOR 24 hours. ROSS NÚÑEZ MD Oct 23, 2021 13:00
[2021-10-23] MEDS ORDERED: CLN.1T PO ×2 (13:01→15:20)
[2021-10-23] MEDS ORDERED: UBID200C16 PO (13:42)
[2021-10-23] MEDS ORDERED: LOSARTAN 50 MG (COZAAR) TAB PO NR (13:45)
[2021-10-23] MEDS ORDERED: TMSL.4C PO (13:46)
[2021-10-23] MEDS ORDERED: MTP100TCR PO (13:50)
[2021-10-23] MEDS ORDERED: FEXO180T84 PO (13:59)
[2021-10-23] MEDS ORDERED: ZINC50TA51 PO (13:59)
[2021-10-23] MEDS ORDERED: FOLI-88 PO (14:00)
[2021-10-23] MEDS ORDERED: NITROGLYCERIN 0.4 MG SL TABS BTL 25'S SL PRN (14:15)
[2021-10-23] MEDS ORDERED: RT-ALBUTEROL SULF 2.5 MG/3 ML PRE-MIX VIAL IH PRN (14:15)
[2021-10-23] MEDS ORDERED: HYDROcodone/APAP 5 MG/325 MG (LORTAB) TAB PO PRN (14:15)
[2021-10-23] MEDS ORDERED: EVOLOCUMAB 140 MG SQ SCH (14:15)
[2021-10-23] MEDS ORDERED: hydrOXYzine (ATARAX) 10 MG TAB PO PRN (14:15)
[2021-10-23] MEDS ORDERED: INSU500V SQ (15:15)
[2021-10-23] MEDS ORDERED: TAMSULOSIN 0.4 MG (FLOMAX) CAP PO SCH (18:00)
[2021-10-23] MEDS: MAGNESIUM OXIDE (MAG-OX)400 MG TAB PO SCH (18:38)
[2021-10-23] MEDS: GABAPENTIN 600 MG (NEURONTIN) TAB PO SCH (20:56)
[2021-10-23] MEDS: cloNIDine 0.1 MG (CATAPRES) TAB PO SCH (20:57)
[2021-10-23] MEDS: PANTOPRAZOLE 40 MG (PROTONIX) TAB PO SCH (20:57)
[2021-10-23] MEDS: ASCORBIC ACID (VIT C) 500 MG TABLET PO SCH (20:58)
[2021-10-23] MEDS ORDERED: MONTELUKAST 10 MG (SINGULAIR) TAB PO SCH (21:00)
[2021-10-23] MEDS ORDERED: FENOFIBRATE 134 MG (LOFIBRA) CAPSULE PO SCH ×2 (21:00)
[2021-10-23] MEDS ORDERED: MULTIVIT W/MINERALS TAB (THERAGRAN M) PO SCH (21:00)
[2021-10-23] MEDS: OMEGA-3 ACID ETHYL ESTERS 1 GM (LOVAZA) NON-FORMULARY PO SCH (21:11)
[2021-10-24 05:38] LABS: BASOPHILS % (AUTO) 0 % (0-10); EOSINOPHILS # (AUTO) 0.2 10^3/uL (0.0-0.3); EOSINOPHILS % (AUTO) 2 % (0-10); HEMATOCRIT 47 % (40-54); HEMOGLOBIN 15.7 g/dL (13.3-17.7); LYMPHOCYTES # (AUTO) 1.9 10^3/uL (1.0-4.0); LYMPHOCYTES % (AUTO) 21 % (12-44); MEAN CORPUSCULAR HEMOGLOBIN 32 pg (25-34); MEAN CORPUSCULAR HGB CONC 34 g/dL (32-36); MEAN CORPUSCULAR VOLUME 96 fL (80-99); MEAN PLATELET VOLUME 11.3 fL (9.0-12.2); MONOCYTES # (AUTO) 0.8 10^3/uL (0.0-1.0); MONOCYTES % (AUTO) 8 % (0-12); NEUTROPHILS # (AUTO) 6.4 10^3/uL (1.8-7.8); NEUTROPHILS % (AUTO) 69 % (42-75); PLATELET COUNT 148 10^3/uL (130-400); WHITE BLOOD COUNT 9.3 10^3/uL (4.3-11.0)
[2021-10-24 05:48] LABS: ALBUMIN 4.3 GM/DL (3.2-4.5); CHLORIDE 102 MMOL/L (98-107); POTASSIUM 3.7 MMOL/L (3.6-5.0); SODIUM 141 MMOL/L (135-145)
[2021-10-24 05:49] LABS: CALCIUM 9.9 MG/DL (8.5-10.1)
[2021-10-24 05:50] LABS: GLUCOSE 130 MG/DL (70-105); TOTAL PROTEIN 7.6 GM/DL (6.4-8.2); TRIGLYCERIDES 263 MG/DL (<150); VLDL CHOLESTEROL 53 MG/DL (5-40)
[2021-10-24 05:51] LABS: CARBON DIOXIDE 23 MMOL/L (21-32)
[2021-10-24 05:52] LABS: BILIRUBIN,TOTAL 0.5 MG/DL (0.1-1.0)
[2021-10-24 05:54] LABS: ALKALINE PHOSPHATASE 63 U/L (40-136); CREATININE SERUM 1.35 MG/DL (0.60-1.30); GFR ESTIMATED 62
[2021-10-24 05:55] LABS: BUN/CREATININE RATIO 21; CHOLESTEROL 82 MG/DL (< 200)
[2021-10-24 05:56] LABS: HDL CHOLESTEROL 38 MG/DL (40-60)
[2021-10-24 05:57] LABS: ALANINE AMINOTRANSFERASE 67 U/L (0-55)
[2021-10-24] MEDS ORDERED: POTASSIUM CL 10MEQ/50ML IVPB 50 ML IV SCH (06:00)
[2021-10-24] MEDS ORDERED: KCL 20 MEQ TAB (K-DUR) PO SCH (06:00)
[2021-10-24] MEDS ORDERED: MAGNESIUM 1 GM/100 ML IVPB 100 ML IV SCH (06:00)
[2021-10-24] MEDS: SUCRALFATE 1 GM (CARAFATE) TAB PO SCH (06:05)
[2021-10-24] MEDS: NS IV 1000 ML 1,000 ML IV SCH (06:05)
[2021-10-24] MEDS: MAGNESIUM OXIDE (MAG-OX)400 MG TAB PO SCH (06:05)
[2021-10-24] MEDS: NITRO DRIP 25000 MCG/D5W 250 ML IV SCH (07:47)
[2021-10-24] MEDS ORDERED: ZINC SULFATE 220 MG CAPSULE PO SCH (08:00)
--- NOTE | 2021-10-24 08:00 | Cardiology Progress Note ---
Subjective Date Seen by Provider: Oct 24, 2021 Time Seen by Provider: 07:58 Subjective/Events-last exam Patient was seen at bedside, laying down comfortably, denied any chest pain. Blood pressure is better controlled Review of Systems General: No Chills, No Night Sweats; Fatigue; No Malaise, No Appetite, No Other HEENT: No Head Aches, No Visual Changes, No Eye Pain, No Ear Pain, No Dysphasia, No Sinus Congestion, No Post Nasal Drip, No Sore Throat, No Other Pulmonary: No Dyspnea, No Cough, No Pleuritic Chest Pain, No Other Cardiovascular: No: Chest Pain, Palpitations, Orthopnea, Paroxysmal Noc. Dyspnea, Edema, Lt Headedness, Other Objective-Cardiology Exam Last Set of Vital Signs Vital Signs 10/24/21 10/24/21 10/24/21 10/24/21 10/24/21 05:00 06:00 07:00 07:09 07:32 Temp 36.0 Pulse 100 Resp 18 B/P (MAP) 116/90 Pulse Ox 91 O2 Delivery Room Air I&O Intake and Output 10/24/21 00:00 Intake Total 1750 ml Output Total 2050 ml Balance -300 ml Intake Oral 750 ml IV Total 1000 ml Output Urine Total 2050 ml # Voids 1 # Bowel Movements 2 General: Alert, Oriented X3, Cooperative HEENT: Atraumatic, PERRLA Neck: Supple, No JVD, No Thyromegaly Lungs: Clear to Auscultation, Normal Air Movement Heart: Regular Rate, Normal S1, Normal S2, No Murmurs Abdomen: Normal Bowel Sounds, Soft, No Tenderness, No Hepatosplenomegaly, No Masses Extremities: No Clubbing, No Cyanosis, No Edema, Normal Pulses, No Tenderness/Swelling Skin: No Rashes, No Breakdown, No Significant Lesion Neuro: Normal Gait, Normal Speech, Strength at 5/5 X4 Ext, Normal Tone, Sensat ion Intact Psych/Mental Status: Mental Status NL, Mood NL Results Lab Laboratory Tests 10/23/21 10:02 10/24/21 04:49 A/P-Cardiology Admission Diagnosis Unstable angina Coronary artery disease Hypertensive urgency Hyperlipidemia Assessment/Plan Unstable angina. Requiring nitroglycerin drip. Feeling better, off nitroglycerin drip at this time Cardiac catheterization was carried out showing mild to moderate disease nonobstructive disease Hypertensive urgency, blood pressure was poorly controlled, adding clonidine. Continue metoprolol and isosorbide. Blood pressure is better controlled at this time. Continue to monitor Sinus tachycardia, better at this time. Continue to monitor Leg edema, reporting some improvement, Venous Doppler of the lower extremity was done on August 05, 2021 showing no evidence of DVT. Status post respiratory failure in September 2020 secondary to CO2 narcosis, recovered and underwent physical therapy and rehab and doing better and improving. Advanced kidney disease stage III, continue to monitor renal function Status post COVID-19 pneumonia end of May 2021, was hospitalized at [facility] in [place], recovered well, still having some residual dyspnea Coronary artery disease, -Patient had non-ST elevation myocardial infarction, underwent cardiac catheterization on April 11, 2019 revealing subtotal occlusion with diffuse ectasia in the distal right coronary artery, complex intervention requiring guide liner and multiple balloons, then deployment of Maday 423 mm stent with excellent results. Proximal RCA has diffuse ectasia with 50 percent stenosis, distal right PDA subtotally occluded, fairly small artery, will be treated medically. Severe stenosis at the distal circumflex artery with long lesion involving the obtuse marginal branch, proper circumflex and AV groove branch, all arteries are less than 2 mm in diameter. 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 Mild to moderate ectasia in LAD with mild to moderate disease diffusely, nonobstructive disease. -Cardiac catheterization on May 03, [address] Cartagena with [id number] mm Promus drug-eluting stent to the circumflex artery. -Cardiac catheterization on May 21, 2019 revealing multivessel CAD with FFR confirmation of [id number] disease in RCA and flow-limiting disease in mid LAD. [id number] in proximal LAD. [id number] Synergy stent to mid LAD. -Cardiac catheterization done June 10, 2019 with 2.0x 12mm drug eluting Cristopher stent to first diagonal. -Cardiac catheterization done 07/18/20 showing moderate to severe ostial ramus intermedius branch that is small to moderate in size, distal disease. Tortuous LAD with moderate disease in a small diag artery that could be responsible for the chest pain, diffuse extasia in the RCA with patnet stent, small vessel disease distally. Sm vessel dz in the cx artery. Cardiac catheterization was carried out on October 23, 2021 showing patent stents with mild to moderate disease, FFR to the right coronary artery was done and it was 0.83 after adenosine challenge. Small vessel disease distally Echocardiogram done May 2021 showing ejection fraction 45-50%, grade 1 diastolic dysfunction, PA 25-30 mmHg. Dyspnea on exertion, improving, undergoing physical therapy, improving. Status post respiratory failure. Continue to monitor Hyperlipidemia, Maintained on pravastatin, fenofibrate and Repatha, was receiving steroids and had elevated blood sugars during his COVID-19 pneumonia infection in May 2021. Continue to monitor Diabetes mellitus, management per primary care physician Chronic renal insufficiency, cannot tolerate metformin. Nonobstructive carotid artery stenosis. last ultrasound done in September 2019. Continue to monitor COPD/obstructive sleep apnea Obesity, BMI is 32, we discussed weight loss Multiple back surgeries, recent knee surgery, recent umbilical hernia surgery Chronic back pain. ROSS RODRÍGUEZ MD Oct 24, 2021 08:00
[2021-10-24] MEDS ORDERED: NITR0.4T39 SL (08:03)
[2021-10-24] MEDS ORDERED: EMPA10TA PO (08:03)
[2021-10-24] MEDS ORDERED: CLN.1T PO (08:03)
[2021-10-24] MEDS ORDERED: LORATADINE (CLARITIN) 10 MG TAB PO SCH (09:00)
[2021-10-24] MEDS ORDERED: meTOprolol SUCCINATE 100 MG (TOPROL XL) TAB PO SCH (09:00)
[2021-10-24] MEDS ORDERED: PRASUGREL 10 MG (EFFIENT) TABLET PO SCH (09:00)
[2021-10-24] MEDS ORDERED: FUROSEMIDE 40 MG (LASIX) TAB PO SCH (09:00)
[2021-10-24] MEDS ORDERED: VITAMIN D3 125 MCG (5,000 UNITS) CAPSULE PO SCH (09:00)
[2021-10-24] MEDS ORDERED: ISOSORBIDE MONONITRATE 30 MG (IMDUR) TAB PO SCH (09:00)
[2021-10-24] MEDS ORDERED: ALLOPURINOL 300 MG (ZYLOPRIM) TAB PO SCH (09:00)
[2021-10-24] MEDS ORDERED: NON-FORMULARY MEDICATION 1 EA EA (Ubidecarenone (Co Q-10) 200 MG) PO SCH (09:00)
[2021-10-24] MEDS ORDERED: ASPIRIN E.C. 81 MG (ECOTRIN) TAB PO SCH (09:00)
[2021-10-24] MEDS ORDERED: PANTOPRAZOLE 40 MG (PROTONIX) TAB PO SCH (09:00)
[2021-10-24] MEDS ORDERED: NON-FORMULARY MEDICATION 1 EA EA (Ubidecarenone (Co Q-10) 100 MG) PO SCH (09:00)
[2021-10-24] MEDS: meTOprolol SUCCINATE 100 MG (TOPROL XL) TAB PO SCH (09:01)
[2021-10-24] MEDS: cloNIDine 0.1 MG (CATAPRES) TAB PO SCH (09:01)
[2021-10-24] MEDS: GABAPENTIN 600 MG (NEURONTIN) TAB PO SCH (09:02)
[2021-10-24] MEDS: DOCUSATE SODIUM 100 MG (COLACE) CAP PO SCH (09:02)
[2021-10-24] MEDS: SENNOSIDES 8.6 MG (SENOKOT) TAB PO SCH (09:02)
[2021-10-24] MEDS: ISOSORBIDE MONONITRATE 30 MG (IMDUR) TAB PO SCH (09:02)
[2021-10-24] MEDS: ENOXAPARIN 120 MG/0.8 ML (LOVENOX) SQ SCH (09:03)
[2021-10-24] MEDS: PRASUGREL 10 MG (EFFIENT) TABLET PO SCH (09:11)
[2021-10-24] MEDS: PANTOPRAZOLE 40 MG (PROTONIX) TAB PO SCH (09:11)
[2021-10-24] MEDS: ASCORBIC ACID (VIT C) 500 MG TABLET PO SCH (09:12)
[2021-10-24] MEDS: OMEGA-3 ACID ETHYL ESTERS 1 GM (LOVAZA) NON-FORMULARY PO SCH (09:13)
[2021-10-24] MEDS: inSUlin (REGULAR) HUMAN 1 UNIT/0.01 ML (CHARGE PER UNIT) SC SCH (10:43)
== END 2021-10-24 11:18 | disposition home or self-care (01) | DRG 287 ==
LOC: EDUNIT# 13:35 → ER 13:36 → ICU 17:31
PROVIDERS: ADMIT Internal Medicine; ATTEND Internal Medicine
PROC: 4A023N7 Measurement of Cardiac Sampling and Pressure, Left Heart, Percutaneous Approach (ICD-10-PCS; principal; 2021-10-23)
PROC: B2111ZZ Fluoroscopy of Multiple Coronary Arteries using Low Osmolar Contrast (ICD-10-PCS; 2021-10-23)
PROC: 4A033BC Measurement of Arterial Pressure, Coronary, Percutaneous Approach (ICD-10-PCS; 2021-10-23)
PROC: 5A09357 Assistance with Respiratory Ventilation, Less than 24 Consecutive Hours, Continuous Positive Airway Pressure (ICD-10-PCS; 2021-10-23)
DX: I25.110 Atherosclerotic heart disease of native coronary artery with unstable angina pectoris (principal); Z95.5 Presence of coronary angioplasty implant and graft; G47.33 Obstructive sleep apnea (adult) (pediatric); K21.9 Gastro-esophageal reflux disease without esophagitis; F41.9 Anxiety disorder, unspecified; Z79.82 Long term (current) use of aspirin; Z79.4 Long term (current) use of insulin; Z79.899 Other long term (current) drug therapy; E78.00 Pure hypercholesterolemia, unspecified; I25.2 Old myocardial infarction; E11.40 Type 2 diabetes mellitus with diabetic neuropathy, unspecified; N40.0 Benign prostatic hyperplasia without lower urinary tract symptoms; M19.90 Unspecified osteoarthritis, unspecified site; M10.9 Gout, unspecified; E66.9 Obesity, unspecified; F32.A Depression, unspecified; I12.9 Hypertensive chronic kidney disease with stage 1 through stage 4 chronic kidney disease, or unspecified chronic kidney disease; E11.22 Type 2 diabetes mellitus with diabetic chronic kidney disease; M48.9 Spondylopathy, unspecified; D64.9 Anemia, unspecified; D69.6 Thrombocytopenia, unspecified; G89.29 Other chronic pain; I16.0 Hypertensive urgency; Z68.32 Body mass index [BMI] 32.0-32.9, adult; R00.0 Tachycardia, unspecified; N18.30 Chronic kidney disease, stage 3 unspecified; Z86.16 Personal history of COVID-19; M54.9 Dorsalgia, unspecified; R06.00 Dyspnea, unspecified; R06.89 Other abnormalities of breathing
CPT/HCPCS: 36415; 71045; 80053; 80061; 80306; 80320; 81000; 83690; 83735; 83880; 84484; 85025; 85379; 85610; 85730; 93005; 93041; 93458; 94760

== ENCOUNTER 2021-12-31 19:17 | Observation (INO) | payer MEDICARE, OTHER ==
[~2021-12-31] VITALS: Ht 182.8 cm; Wt 136.4 kg
[~2021-12-31 19:17] MED LIST changes: +CLN.1T PO; +EMPA10TA PO; +INSU500V SQ; +METO100T12 PO; +MTP100TCR PO; +RT-ALBUINH PO; +ZINC50TA51 PO
[2021-12-31 19:27] LABS: BASOPHILS # (AUTO) 0.1 10^3/uL (0.0-0.1); BASOPHILS % (AUTO) 1 % (0-10); EOSINOPHILS # (AUTO) 0.4 10^3/uL (0.0-0.3); EOSINOPHILS % (AUTO) 5 % (0-10); HEMATOCRIT 44 % (40-54); LYMPHOCYTES % (AUTO) 23 % (12-44); MEAN CORPUSCULAR HEMOGLOBIN 32 pg (25-34); MEAN CORPUSCULAR HGB CONC 34 g/dL (32-36); MEAN CORPUSCULAR VOLUME 95 fL (80-99); MEAN PLATELET VOLUME 11.6 fL (9.0-12.2); MONOCYTES % (AUTO) 11 % (0-12); NEUTROPHILS # (AUTO) 5.3 10^3/uL (1.8-7.8); NEUTROPHILS % (AUTO) 60 % (42-75); PLATELET COUNT 159 10^3/uL (130-400); WHITE BLOOD COUNT 8.7 10^3/uL (4.3-11.0)
[2021-12-31 19:43] LABS: PROTHROMBIN TIME PATIENT 13.3 SEC (12.2-14.7)
[2021-12-31] MEDS ORDERED: LIDOCAINE 2% VISCOUS 15 ML UDC PO ONE (19:45)
[2021-12-31] MEDS ORDERED: ASPIRIN 81 MG CHEW (CHILDREN'S ASA) PO ONE (19:45)
[2021-12-31] MEDS ORDERED: ONDANSETRON 4 MG/2 ML (SDV) Z0FRAN IVP ONE (19:45)
[2021-12-31] MEDS ORDERED: ANTACID SUSP 30 ML UDC (MYLANTA) PO ONE (19:45)
--- NOTE | 2021-12-31 19:45 | ED Chest Pain ---
General Chief Complaint: Chest Pain Stated Complaint: CHEST PAIN Nursing Triage Note: PT ARRIVAL TO ER VIA PRIVATE VEHICLE WITH CHEST PAIN SINCE THIS AFTERNOON. INITIALLY IT WAS INTERMITTENT, BUT SINCE 1799 ITS BEEN A CONSTANT STABBING PAIN. PT TOOK HIS OWN NITRO X3 DYNAMICS AX SOLUTION ARCHITECT WITHOUT RELIEF. PAIN AT A 10/10. PT HAS SIGNIFICANT CARDIAC HISTORY. Source: patient Exam Limitations: no limitations History of Present Illness Date Seen by Provider: Dec 31, 2021 Time Seen by Provider: 19:19 Initial Comments This 56-year-old gentleman presents to the emergency room with severe chest pain that feels like "someone standing on my chest" since 1799. He tried taking Rolaids and nitroglycerin x3 at home which were not effective. He reports pain is 9 out of 10. 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 He has history of coronary artery disease and takes aspirin and Effient daily. He denies missing any doses. He most recently had angiography performed by Dr. Núñez in October. Moderate disease was identified along with patent stents. No new interventions were performed. Patient complains of shortness of air and pain that radiates down the right arm and into the back. He also reports history of significant GERD. He has significant comorbidities including obesity, sleep apnea, chronic kidney disease, and diabetes. Allergies and Home Medications Allergies Coded Allergies: No Known Drug Allergies (Unverified , 12/29/19) Patient Home Medication List Home Medication List Reviewed: Yes Albuterol Sulfate (Proventil Hfa) 6.7 Gm Hfa.aer.ad, 1 PUFF PO Q6H PRN for SHORTNESS OF BREATH, (Reported) Entered as Reported by: MARIELENA WINN on 10/23/21 1244 Allopurinol (Allopurinol) 300 Mg Tablet, 300 MG PO DAILY, (Reported) Entered as Reported by: PATRICIA VALENZUELA on 10/08/20 1607 Ascorbic Acid (Vitamin C) 1,000 Mg Tablet, 1,000 MG PO BID, (Reported) Entered as Reported by: PARTICIA VALENZUELA on 10/08/20 1607 Aspirin (Aspirin EC) 81 Mg Tablet.dr, 81 MG PO DAILY, (Reported) Entered as Reported by: PATRICIA VALENZUELA on 10/08/20 1607 Cholecalciferol (Vitamin D3) (Vitamin D3) 125 Mcg Capsule, 125 MCG PO DAILY, (Reported) Entered as Reported by: PATRICIA VALENZUELA on 10/08/20 1607 Clonidine HCl (Clonidine HCl) 0.1 Mg Tablet, 0.1 MG PO BID Prescribed by: ROSS NÚÑEZ on 10/24/21 0803 Empagliflozin (Jardiance) 10 Mg Tablet, 10 MG PO DAILY Prescribed by: ROSS NÚÑEZ on 10/24/21 0803 Evolocumab (Repatha Sureclick) 140 Mg/1 Ml Pen.injctr, 140 MG SQ UD, (Reported) Entered as Reported by: WEI JIMENEZ on 12/19/20 1302 Fenofibrate,Micronized (Fenofibrate) 134 Mg Capsule, 134 MG PO HS, (Reported) Entered as Reported by: PATRICIA VALENZUELA on 10/08/20 1607 Fexofenadine HCl (Lisa Allergy) 180 Mg Tablet, 180 MG PO DAILY, (Reported) Entered as Reported by: MARIELENA WINN on 10/23/21 1359 Folic Acid/Multivit-Min/Lutein (Multi-Vitamin Gummies) 200 Mcg-137.5 Mcg Tab.chew, 2 EACH PO HS, (Reported) Entered as Reported by: MARIELENA WINN on 10/23/21 1400 Furosemide (Furosemide) 40 Mg Tablet, 40 MG PO DAILY, (Reported) Entered as Reported by: PATRICIA VALENZUELA on 10/08/20 1607 Gabapentin (Gabapentin) 600 Mg Tablet, 600 MG PO TID, (Reported) Entered as Reported by: MARIELENA WINN on 10/23/21 1244 Hydrocodone/Acetaminophen (Hydrocodone-Acetamin 5-325 mg) 1 Each Tablet, 1 TAB PO Q4H PRN for PAIN-MODERATE (5-7), (Reported) Entered as Reported by: WEI JIMENEZ on 12/19/20 1302 Hydroxyzine HCl (Hydroxyzine HCl) 10 Mg Tablet, 10 MG PO Q6H PRN for ANXIETY, (Reported) Entered as Reported by: PATRICIA VALENZUELA on 10/08/20 1607 Insulin Regular, Human (Humulin R U-500) 500 Unit/Ml (Concentrated) Vial, 100 UNIT SQ AC, (Reported) Entered as Reported by: SUMMER LAU on 10/23/21 1515 Isosorbide Mononitrate (Isosorbide Mononitrate ER) 30 Mg Tab.er.24h, 30 MG PO DAILY, (Reported) Entered as Reported by: PATRICIA VALENZUELA on 10/08/20 1607 Magnesium Oxide (Magnesium) 400 Mg Tablet, 400 MG PO BIDAC, (Reported) Entered as Reported by: PATRICIA VALENZUELA on 10/08/20 1607 Metoprolol Succinate (Metoprolol Succinate) 100 Mg Tab.er.24h, 100 MG PO DAILY, (Reported) Entered as Reported by: MARIELENA WINN on 10/23/21 1350 Montelukast Sodium (Montelukast Sodium) 10 Mg Tablet, 10 MG PO HS, (Reported) Entered as Reported by: PATRICIA VALENZUELA on 10/08/20 160 Nitroglycerin (Nitroglycerin) 0.4 Mg Tab.subl, 0.4 MG SL UD PRN for CHEST PAIN Prescribed by: ROSS NÚÑEZ on 10/24/21 0803 Mack-3 Acid Ethyl Esters (Lovaza) 1 Gm Capsule, 2 GM PO BID, (Reported) Entered as Reported by: PATRICIA VALENZUELA on 10/08/20 160 Pantoprazole Sodium (Pantoprazole Sodium) 40 Mg Tablet.dr, 40 MG PO BID, (Reported) Entered as Reported by: MARIELEAN WINN on 10/23/21 1244 Pitavastatin Calcium (Livalo) 4 Mg Tablet, 4 MG PO DAILY, (Reported) Entered as Reported by: WEI JIMENEZ on 12/19/20 1302 Prasugrel HCl (Prasugrel HCl) 10 Mg Tablet, 10 MG PO DAILY, (Reported) Entered as Reported by: PATRICIA VALENZUELA on 10/08/20 1607 Tamsulosin HCl (Flomax) 0.4 Mg Cap, 0.4 MG PO 1800, (Reported) Entered as Reported by: MARIELENA WINN on 10/23/21 1346 Ubidecarenone (Co Q-10) 100 Mg Capsule, 100 MG PO DAILY, (Reported) Entered as Reported by: PATRICIA VALEZNUELA on 10/08/20 1607 Ubidecarenone (Co Q-10) 200 Mg Capsule, 200 MG PO DAILY, (Reported) Entered as Reported by: MARIELENA WINN on 10/23/21 1342 Zinc Amino Acid Chelate (Zinc) 50 Mg Tablet, 50 MG PO DAILY, (Reported) Entered as Reported by: MARIELENA WINN on 10/23/21 0094 Review of Systems Review of Systems Constitutional: no symptoms reported EENTM: No Symptoms Reported Respiratory: See HPI Cardiovascular: See HPI Gastrointestinal: See HPI Genitourinary: No Symptoms Reported Musculoskeletal: no symptoms reported Skin: no symptoms reported Psychiatric/Neurological: No Symptoms Reported Endocrine: No Symptoms Reported Hematologic/Lymphatic: No Symptoms Reported Past Nobrucj-Canhgo-Uthtan Hx Patient Social History Tobacco Use?: No Use of E-Cig and/or Vaping dev: No Substance use?: No Alcohol Use?: No Pt feels they are or have been: No Immunizations Up To Date Tetanus Booster (TDap): Unknown PED Vaccines UTD: No Influenza Vaccine Up-to-Date: No; Not Current First/Initial COVID19 Vaccinat: NONE Second COVID19 Vaccination Nathan: NONE Third COVID19 Vaccination Date: NONE Seasonal Allergies Seasonal Allergies: Yes Past Medical History Surgery/Hospitalization HX: RIAZ, RENAL FAILURE, CARDIAC STENTS, HIGH CHOLESTEROL, DM Surgeries: Yes Abdominal, Coronary Stent, Gallbladder, Orthopedic Respiratory: Yes Pneumonia, Sleep Apnea, COPD Currently Using CPAP: No Currently Using BIPAP: Yes Cardiac: Yes (NSTEMI 03/2019; STENTS X 4) Chronic Edema/Swelling, Coronary Artery Disease, High Cholesterol, Hypertension Neurological: Yes Neuropathy Reproductive Disorders: No Sexually Transmitted Disease: No HIV/AIDS: No Genitourinary: Yes (CHRONIC RENAL INSUFFICIENCY) Benign Prostatic Hyperpl, Bladder Infection, Renal Failure Gastrointestinal: Yes Chronic Constipation Musculoskeletal: Yes Degenerate Disk Disease, Arthritis, Gout Endocrine: Yes (OBESITY) Diabetes, Insulin dep HEENT: No Tonsilitis Loss of Vision: Denies Hearing Impairment: Denies Cancer: No Psychosocial: Yes Anxiety, Depression Integumentary: No Blood Disorders: No Adverse Reaction/Blood Tranf: No (N/A) Family Medical History Abdominal aortic aneurysm 09 BROTHER Cancer 03 MOTHER Cancer of colon 03 MOTHER 09 SISTER 19 MOTHER FH: COPD (chronic obstructive pulmonary disease) 19 FATHER FH: leukemia 09 SISTER 19 MOTHER FHx: stroke 19 FATHER Family history: Diabetes mellitus 09 BROTHER 09 SISTER 09 SISTER 09 SISTER Family history: Gastrointestinal disease 03 MOTHER 09 BROTHER Cancer, Diabetes, Hypertension, Stroke SOCIAL HISTORY: -ETOH--HISTORY OF MODERATE TO HEAVY USE -DRUGS--DENIES USE -DENIES SMOKING, BUT HAS CHEWED TOBACCO PAST SURGICAL HISTORY: -CARDIAC CATHS--STENTS X 4 -EGD'S -COLONOSCOPIES/POLYPECTOMY -MULTIPLE BACK [id number]-[id number] FUSION AND PLATES/RODS; NERVE STIMULATOR-REMOVED -LITHOTRIPSY -LEFT KNEE SCOPE/ACL REPAIR -WISDOM TEETH -TONSILLECTOMY/ADEONOIDECTOMY -APPENDECTOMY -CHOLECYSTECTOMY -ABDOMINAL LAPAROTOMY FOR BOWEL OBSTRUCTIONS/LYSIS OF ADHESIONS -VENTRAL HERNIA REPAIR -CHERYL FUNDOPLICATION -BILATERAL CARPAL TUNNEL -RIGHT WRIST FX/ORIF CARDIAC CATH 07/18/[address] NÚÑEZ: FINDINGS: Hemodynamics LV 135/15, end-diastolic pressure 15 Aorta 143/80 mean of 107 ANATOMY: Left Main is free of obstructive disease Left Anterior Descending is slightly tortuous, disease in a small diagonal branch, nonobstructive disease Ramus intermedius is moderate in size, has moderate to severe ostial stenosis, distally there is moderate disease Left Circumflex is moderate in size with small vessel disease in the distal circumflex artery nonobstructive disease Right Coronory Artery has diffuse ectasia, stent is patent the distal right coronary artery, small vessel disease distally LV Gram was not done, pressure was measured CONCLUSION: 1. Moderate to severe ostial ramus intermedius branch that is small to moderate in size. Distal disease, medical therapy is recommended 2. Tortuous LAD with moderate disease in a small diagonal artery that could be responsible for the chest pain 3. Diffuse ectasia in the right coronary artery with patent stent, small vessel disease distally 4. Small vessel disease in the circumflex artery distally 5. Normal left ventricular end-diastolic pressure DISCUSSION AND RECOMMENDATION: Medical therapy is recommended, no intervention is warranted Anesthesia Type: Conscious Sedation Estimated blood loss (mL): 25 ml Contrast Amount: 34 ml Total Radiation Dose: 550 mGy Post-Procedure Diagnosis Post-operative diagnosis: Unstable angina Coronary artery disease Hypertension Hyperlipidemia Coronary artery disease, patient had non-ST elevation myocardial infarction, underwent cardiac catheterization on April 11, 2019 revealing subtotal occlusion with diffuse ectasia in the distal right coronary artery, complex intervention requiring guide liner and multiple balloons, then deployment of Maday 423 mm stent with excellent results. Proximal RCA has diffuse ectasia with 50 percent stenosis, distal right PDA subtotally occluded, fairly small artery, will be treated medically. Severe stenosis at the distal circumflex artery with long lesion involving the obtuse marginal branch, proper circumflex and AV groove branch, all arteries are less than 2 mm in diameter. 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 Mild to moderate ectasia in LAD with mild to moderate disease diffusely, nonobstructive disease. Underwent cardiac catheterization on May 03, [address] Cartagena with 2.2532 mm Promus drug-eluting stent to the circumflex artery. Underwent repeat cardiac catheterization on May 21, 2019 revealing multivessel CAD with FFR confirmation of luv-siet-bsdmbelt disease in RCA and flow-limiting disease in mid LAD. Fkm-[id number]-hdjprcrz in proximal LAD. 2.45m69hn Synergy stent to mid LAD. Most recent cardiac catheterization done June 10, 2019 with 2.0x 12mm drug eluting Liberty stent to first diagonal. Maintained on Effient and aspirin. Physical Exam Vital Signs Vital Signs - First Documented 12/31/21 19:25 Temp 36.6 Pulse 89 Resp 22 B/P (MAP) 140/97 (111) Pulse Ox 95 O2 Delivery Room Air Capillary Refill : Less Than 3 Seconds Height, Weight, BMI Height: 5'11.00" Weight: 260lbs. 8.0oz. 117.950201dm; 38.00 BMI Method:Stated General Appearance: WD/WN, Moderate Distress, Obese HEENT: PERRL/EOMI, Normal ENT Inspection Neck: Normal Inspection; No JVD Respiratory: Chest Non Tender, Lungs Clear, Normal Breath Sounds, No Accessory Muscle Use, No Respiratory Distress Cardiovascular: Regular Rate, Rhythm, No Edema, No Murmur Gastrointestinal: Normal Bowel Sounds, Non Tender, Soft; No Distended Extremity: Normal Inspection, Non Tender, No Calf Tenderness, No Pedal Edema Neurologic/Psychiatric: Alert, Oriented x3, No Motor/Sensory Deficits, Normal Mood/Affect Skin: Normal Color, Warm/Dry Progress/Results/Core Measures Results/Orders Lab Results Laboratory Tests Test 12/31/21 19:18 12/31/21 19:35 12/31/21 22:19 Range/Units White Blood Count 8.7 4.3-11.0 10^3/uL Red Blood Count 4.68 4.30-5.52 10^6/uL Hemoglobin 15.0 13.3-17.7 g/dL Hematocrit 44 40-54 % Mean Corpuscular Volume 95 80-99 fL Mean Corpuscular Hemoglobin 32 25-34 pg Mean Corpuscular Hemoglobin Concent 34 32-36 g/dL Red Cell Distribution Width 13.9 10.0-14.5 % Platelet Count 159 130-400 10^3/uL Mean Platelet Volume 11.6 9.0-12.2 fL Immature Granulocyte % (Auto) 0 % Neutrophils (%) (Auto) 60 42-75 % Lymphocytes (%) (Auto) 23 12-44 % Monocytes (%) (Auto) 11 0-12 % Eosinophils (%) (Auto) 5 0-10 % Basophils (%) (Auto) 1 0-10 % Neutrophils # (Auto) 5.3 1.8-7.8 10^3/uL Lymphocytes # (Auto) 2.0 1.0-4.0 10^3/uL Monocytes # (Auto) 1.0 0.0-1.0 10^3/uL Eosinophils # (Auto) 0.4 H 0.0-0.3 10^3/uL Basophils # (Auto) 0.1 0.0-0.1 10^3/uL Immature Granulocyte # (Auto) 0.0 0.0-0.1 10^3/uL Prothrombin Time 13.3 12.2-14.7 SEC INR Comment 1.0 0.8-1.4 Activated Partial Thromboplast Time 32 24-35 SEC Sodium Level 142 135-145 MMOL/L Potassium Level 4.0 3.6-5.0 MMOL/L Chloride Level 104 98-107 MMOL/L Carbon Dioxide Level 24 21-32 MMOL/L Anion Gap 14 5-14 MMOL/L Blood Urea Nitrogen 29 H 7-18 MG/DL Creatinine 2.12 H 0.60-1.30 MG/DL Estimat Glomerular Filtration Rate 36 BUN/Creatinine Ratio 14 Glucose Level 166 H 70-105 MG/DL Calcium Level 9.6 8.5-10.1 MG/DL Corrected Calcium 9.6 8.5-10.1 MG/DL Magnesium Level 2.2 1.6-2.4 MG/DL Total Bilirubin 0.7 0.1-1.0 MG/DL Aspartate Amino Transf (AST/SGOT) 38 H 5-34 U/L Alanine Aminotransferase (ALT/SGPT) 58 H 0-55 U/L Alkaline Phosphatase 60 40-136 U/L Myoglobin 185.0 H 10.0-92.0 NG/ML Troponin I < 0.028 < 0.028 <0.028 NG/ML Total Protein 7.1 6.4-8.2 GM/DL Albumin 4.0 3.2-4.5 GM/DL D-Dimer 0.50 H 0.00-0.49 UG/ML My Orders Orders - JORGE OLMOS MD Chest 1 View, Ap/Pa Only (12/31/21 19:19) Ekg Tracing (12/31/21:19) Cbc With Automated Diff (12/31/21 19:19) Magnesium (12/31/21 19:19) Comprehensive Metabolic Panel (12/31/21:19) Myoglobin Serum (12/31/21:19) Protime With Inr (12/31/21:19) Partial Thromboplastin Time (12/31/21:19) O2 (12/31/21:19) Monitor-Rhythm Ecg Trace Only (12/31/21:19) Lipid Panel (01/01/22 05:00) Ed Iv/Invasive Line Start (12/31/21 19:19) Troponin I Delta (12/31/21 19:19) Ondansetron Injection (Zofran Injectio (12/31/21 19:45) Lidocaine 2% Viscous 15 Ml (Xylocaine Vi (12/31/21 19:45) Antacid Suspension (Mylanta Suspension (12/31/21 19:45) Aspirin Chewable Tablet (Baby Aspirin Ch (12/31/21 19:45) Morphine Injection (Morphine Injection (12/31/21 19:57) Ns Iv 500 Ml (Sodium Chloride 0.9%) (12/31/21 20:00) Troponin I Liss (12/31/21 22:00) Fibrin Degradation Products (12/31/21 20:00) Ekg Tracing (12/31/21 21:08) Fentanyl Inj (Sublimaze Injection) (12/31/21 21:30) Ct Angio Chest W (12/31/21 21:32) Ns Iv 500 Ml (Sodium Chloride 0.9%) (12/31/21 21:45) Iohexol Injection (Omnipaque 350 Mg/Ml 1 (12/31/21 22:00) Received Contrast (Hold Metformin- Contr (12/31/21 22:00) Ns (Ivpb) (Sodium Chloride 0.9% Ivpb Bag (12/31/21 22:00) Medications Given in ED Current Medications Medications Dose Ordered Sig/Lamin Route Start Time Stop Time Status Last Admin Dose Admin Al Hydrox/Mg Hydrox/Simethicone 30 ml ONCE ONCE PO 12/31/21 19:45 12/31/21 19:46 DC 12/31/21 19:50 30 ML Aspirin 243 mg ONCE ONCE PO 12/31/21 19:45 12/31/21 19:46 DC 12/31/21 19:50 243 MG Fentanyl Citrate 75 mcg ONCE ONCE IVP 12/31/21 21:30 12/31/21 21:31 DC 12/31/21 21:24 75 MCG Iohexol 100 ml ONCE ONCE IV 12/31/21 22:00 12/31/21 22:13 DC 12/31/21 21:54 88 ML Lidocaine HCl 15 ml ONCE ONCE PO 12/31/21 19:45 12/31/21 19:46 DC 12/31/21 19:50 15 ML Ondansetron HCl 4 mg ONCE ONCE IVP 12/31/21 19:45 12/31/21 19:46 DC 12/31/21 19:50 4 MG Sodium Chloride 100 ml ONCE ONCE IV 12/31/21 22:00 12/31/21 22:13 DC 12/31/21 21:54 70 ML Sodium Chloride 500 ml @ 0 mls/hr Q0M ONCE IV 12/31/21 20:00 12/31/21 20:01 DC 12/31/21 20:09 999 MLS/HR Sodium Chloride 500 ml @ 0 mls/hr Q0M ONCE IV 12/31/21 21:45 12/31/21 21:46 DC 12/31/21 22:10 999 MLS/HR Vital Signs/I&O 12/31/21 19:25 Temp 36.6 Pulse 89 Resp 22 B/P (MAP) 140/97 (111) Pulse Ox 95 O2 Delivery Room Air 01/01/22 00:00 Intake Total 500 ml Balance 500 ml Blood Pressure Mean: 111 Progress Progress Note : Time: 22:24 Progress Note Initial cardiac rule out in the ER was unremarkable. The balance of his aspirin dosing was given. Serial EKG studies were negative. D-dimer was right at the cutoff and was negative when adjusted for age. There was concerned about the nature of his pain in regard to aortic pathology. CT angiogram was discussed with Dr. Torrez and patient. We elected to proceed with CT aortogram even though his creatinine is elevated. We will aggressively hydrate him. He received normal saline 500 mL bolus prior to the study and will receive a 500 mL bolus after the study. Fluids will be additionally run through the night. Pain was not relieved with nitroglycerin at home. Morphine was used in the ER without significant relief. Patient had a much better response to fentanyl but still has some residual pain. Patient will be admitted for further cardiac rule out. Case was discussed with Dr. Clifton and Dr. Torrez. He will be admitted to the cardiac stepdown unit. CODE STATUS was reviewed with the patient, and he elects to remain full code. There was heterogenicity of the thyroid gland on CT scan. Nonemergent ultrasound was recommended. This was communicated to the patient. Initial ECG Impression Date: Dec 31, 2021 Initial ECG Impression Time: 19:21 Initial ECG Rate: 91 Initial ECG Rhythm: Normal Sinus Initial ECG Intervals: Normal Initial ECG Impression: Normal Comment Normal sinus rhythm with no ST elevation or depression. No abnormal intervals or axis deviation. Diagnostic Imaging Diagonstic Imaging: Xray Plain Films/CT/US/NM/MRI: chest Comments NAME: LUCI MCMULLEN Arcelia [facility] REC#: [id number] PT STATUS: REG ER : 1965 PHYSICIAN: JORGE OLMOS MD ADMIT DATE: 12/31/21/ER Draft Date of Exam:12/31/21 CHEST 1 VIEW, AP/PA ONLY Indication: Chest pain. Time of Exam: 7:22 PM Correlation is made with prior chest 10/22/2021. Findings: The heart size is normal. The pulmonary vascularity is unremarkable. The lungs are clear. No infiltrate, effusion or pneumothorax is detected. Impression: No acute cardiopulmonary process is detected. Dictated on workstation # [id number] Dict: 12/31/211938 Trans: 12/31/211946 [facility] [id number] Interpreted by: VANDANA GROVER MD Diagonstic Imaging: CT Plain Films/CT/US/NM/MRI: chest Comments CT aortogram of the chest viewed by me and report reviewed. See report below: NAME: LUCI MCMULLEN [facility] REC#: [id number] PT STATUS: REG ER : 1965 PHYSICIAN: JOREG OLMOS MD ADMIT DATE: 12/31/21/ER Draft Date of Exam:12/31/21 CT ANGIO CHEST W PROCEDURE: CT angiography of the chest with contrast. TECHNIQUE: Multiple contiguous axial images were obtained through the chest after uneventful bolus administration of intravenous contrast. 3D reconstructed CTA MIP acquisitions were also performed. Auto Exposure Controls were utilized during the CT exam to meet ALARA standards for radiation dose reduction. INDICATION: Chest pain. COMPARISON: 11/22/2020 FINDINGS: No abnormal intraluminal filling defect is seen within the pulmonary arteries to the first subsegmental division. Thoracic aorta is normal in course and caliber. By NASCET criteria, there is no focal significant stenosis. There is no evidence of dissection or aneurysm. Heart size is within normal limits. There is no large pericardial effusion. There is advanced calcified coronary atherosclerosis. No pathologically enlarged or morphologically abnormal adenopathy is seen within the mediastinum, harry, nor axilla. Heterogeneous appearance of the thyroid gland is noted involving both lobes. Lungs are clear. There is no focal consolidation, large effusion, nor pneumothorax. No suspicious pulmonary nodules or masses are seen. Osseous structures show age-related degenerative changes. No lytic or blastic bony lesions are seen. Included portions of the upper abdomen are unremarkable as well. IMPRESSION: 1. No pulmonary embolus. 2. No other acute cardiopulmonary process. 3. Heterogeneous appearance of the bilateral thyroid lobes. Correlation with dedicated thyroid sonogram is recommended on a nonemergent basis. 4. Advanced calcified coronary atherosclerosis. Correlation with risk factors is advised. Dictated on workstation # [id number] Dict: 12/31/[id number] Trans: 12/31/212210 [facility] [id number] Interpreted by: ЮЛИЯ DOVER MD Departure Communication (Admissions) Time/Spoke to Admitting Phy: 21:50 Dr. Clifton Time/Spoke to Consulting Phy: 21:25 Dr. Torrez Impression Primary Impression: Chest pain Qualified Codes: R07.9 - Chest pain, unspecified Additional Impressions: CAD (coronary artery disease) Qualified Codes: I25.10 - Atherosclerotic heart disease of [place] coronary artery without angina pectoris Acute kidney injury Abnormal CT of the thyroid gland Disposition: ADMITTED INPATIENT Condition: Stable Admissions Decision to Admit Reason: Admit from ER (General) Decision to Admit/Date: Dec 31, 2021 Time/Decision to Admit Time: 21:25 Departure-Patient Inst. Referrals: IRINEO GONSALEZ DO (PCP/Family) Primary Care Physician JORGE OLMOS MD Dec 31, 2021 19:45
[2021-12-31 19:48] LABS: BILIRUBIN,TOTAL 0.7 MG/DL (0.1-1.0); CALCIUM 9.6 MG/DL (8.5-10.1); CREATININE SERUM 2.12 MG/DL (0.60-1.30); MAGNESIUM 2.2 MG/DL (1.6-2.4); TOTAL PROTEIN 7.1 GM/DL (6.4-8.2)
[2021-12-31] MEDS ORDERED: morphine INJ 10 MG/ML 1ML (SYR OR VIAL) IVP STA ×2 (19:57→21:08)
[2021-12-31] MEDS ORDERED: NS IV 500 ML 500 ML IV ONE ×2 (20:00→21:45)
[2021-12-31] MEDS ORDERED: fentaNYL INJ 100 MCG/2 ML AMP IVP ONE (21:30)
[2021-12-31] MEDS ORDERED: NS 100 ML (IVPB) BAG IV ONE (22:00)
[2021-12-31] MEDS ORDERED: IOHEXOL 350 MG/ML 100 ML (OMNIPAQUE 350) VIAL IV ONE (22:00)
[2021-12-31] MEDS ORDERED: HOLD METFORMIN - RECEIVED CONTRAST 20 ML VIAL IV SCH (22:00)
--- NOTE | 2021-12-31 22:12 | Diagnostic Imaging Report ---
PROCEDURE: CT angiography of the chest with contrast. TECHNIQUE: Multiple contiguous axial images were obtained through the chest after uneventful bolus administration of intravenous contrast. 3D reconstructed CTA MIP acquisitions were also performed. Auto Exposure Controls were utilized during the CT exam to meet ALARA standards for radiation dose reduction. INDICATION: Chest pain. COMPARISON: 11/22/2020 FINDINGS: No abnormal intraluminal filling defect is seen within the pulmonary arteries to the first subsegmental division. Thoracic aorta is normal in course and caliber. By NASCET criteria, there is no focal significant stenosis. There is no evidence of dissection or aneurysm. Heart size is within normal limits. There is no large pericardial effusion. There is advanced calcified coronary atherosclerosis. No pathologically enlarged or morphologically abnormal adenopathy is seen within the mediastinum, harry, nor axilla. Heterogeneous appearance of the thyroid gland is noted involving both lobes. Lungs are clear. There is no focal consolidation, large effusion, nor pneumothorax. No suspicious pulmonary nodules or masses are seen. Osseous structures show age-related degenerative changes. No lytic or blastic bony lesions are seen. Included portions of the upper abdomen are unremarkable as well. IMPRESSION: 1. No pulmonary embolus. 2. No other acute cardiopulmonary process. 3. Heterogeneous appearance of the bilateral thyroid lobes. Correlation with dedicated thyroid sonogram is recommended on a nonemergent basis. 4. Advanced calcified coronary atherosclerosis. Correlation with risk factors is advised. Dictated by: Dictated on workstation # [id number]
[2021-12-31 23:09] VITALS: BP 154/105
[2021-12-31 23:15] VITALS: BP 139/99
[2021-12-31 23:40] VITALS: BP 159/99
[2021-12-31 23:45] VITALS: BP 148/89
[2021-12-31] MEDS ORDERED: fentaNYL INJ 100 MCG/2 ML AMP ONE (23:57)
[2021-12-31] MEDS ORDERED: LACTATED RINGERS 1,000 ML IV ONE (23:57)
[2022-01-01] VITALS (10 sets, daily range): BP systolic 117–155; BP diastolic 77–107
[2022-01-01] MEDS ORDERED: DEXTROSE 50% 50 ML (IMS) SYR ONE (00:11)
[2022-01-01] MEDS: fentaNYL INJ 100 MCG/2 ML AMP IV PRN ×4 (00:15→09:14)
[2022-01-01] MEDS ORDERED: ONDANSETRON 4 MG/2 ML (SDV) Z0FRAN IV PRN (01:00)
[2022-01-01] MEDS: LACTATED RINGERS 1,000 ML IV SCH ×2 (01:18→06:47)
[2022-01-01] MEDS: inSUlin ASPART (NovoLOG) 1 UNIT/0.01 ML (CHARGE PER UNIT) SC SCH ×2 (05:09→11:23)
[2022-01-01 05:11] LABS: BASOPHILS # (AUTO) 0.1 10^3/uL (0.0-0.1); BASOPHILS % (AUTO) 1 % (0-10); MEAN CORPUSCULAR VOLUME 97 fL (80-99)
[2022-01-01 05:12] LABS: EOSINOPHILS # (AUTO) 0.4 10^3/uL (0.0-0.3); EOSINOPHILS % (AUTO) 6 % (0-10); HEMATOCRIT 42 % (40-54); HEMOGLOBIN 13.8 g/dL (13.3-17.7); LYMPHOCYTES # (AUTO) 1.5 10^3/uL (1.0-4.0); LYMPHOCYTES % (AUTO) 24 % (12-44); MEAN CORPUSCULAR HEMOGLOBIN 32 pg (25-34); MEAN CORPUSCULAR HGB CONC 33 g/dL (32-36); MEAN PLATELET VOLUME 11.8 fL (9.0-12.2); MONOCYTES # (AUTO) 0.9 10^3/uL (0.0-1.0); MONOCYTES % (AUTO) 14 % (0-12); NEUTROPHILS # (AUTO) 3.6 10^3/uL (1.8-7.8); NEUTROPHILS % (AUTO) 56 % (42-75); PLATELET COUNT 134 10^3/uL (130-400); WHITE BLOOD COUNT 6.4 10^3/uL (4.3-11.0)
[2022-01-01 05:23] LABS: CHLORIDE 106 MMOL/L (98-107); SODIUM 144 MMOL/L (135-145)
[2022-01-01 05:24] LABS: GLUCOSE 84 MG/DL (70-105)
[2022-01-01 05:26] LABS: CARBON DIOXIDE 26 MMOL/L (21-32)
[2022-01-01 05:28] LABS: CREATININE SERUM 2.02 MG/DL (0.60-1.30); GFR ESTIMATED 38
[2022-01-01 05:29] LABS: BUN/CREATININE RATIO 14
--- NOTE | 2022-01-01 06:50 | Short Stay Summary ---
History of Present Illness History of Present Illness Reason for visit/HPI CC: Chest pain HPI: This is a 56yoWM clinic patient of mine who is very complicated including DM with high insulin requirements, obesity, RIAZ on biPAP, CAD with multiple stents in place who presented to the ER in need of assessment for chest pain. Troponins were all negative and patient was DC home on higher dose of Isosorbide. Date of Admission Dec 31, 2021 at 22:28 Date of Discharge 01/01/22 Time Seen by Provider: 10:00 Attending Physician Pat Gonsalez DO Admitting Physician Admitting Physician: Alphonse Clitfon MD Attending Physician: Pat Gonsalez DO Consult Allergies and Home Medications Allergies Coded Allergies: No Known Drug Allergies (Unverified , 12/29/19) Patient Home Medication List Home Medication List Reviewed: Yes Albuterol Sulfate (Proventil Hfa) 6.7 Gm Hfa.aer.ad, 1 PUFF PO Q6H PRN for SHORTNESS OF BREATH, (Reported) Entered as Reported by: MARIELENA WINN on 10/23/21 1244 Allopurinol (Allopurinol) 300 Mg Tablet, 300 MG PO DAILY, (Reported) Entered as Reported by: PATRICIA VALENZUELA on 10/08/20 160 Ascorbic Acid (Vitamin C) 1,000 Mg Tablet, 1,000 MG PO BID, (Reported) Entered as Reported by: PATRICIA VALENZUELA on 10/08/20 1607 Aspirin (Aspirin EC) 81 Mg Tablet.dr, 81 MG PO DAILY, (Reported) Entered as Reported by: PATRICIA VALENZUELA on 10/08/20 160 Cholecalciferol (Vitamin D3) (Vitamin D3) 125 Mcg Capsule, 125 MCG PO DAILY, (Reported) Entered as Reported by: PATRICIA VALENZUELA on 10/08/20 1607 Clonidine HCl (Clonidine HCl) 0.1 Mg Tablet, 0.1 MG PO BID Prescribed by: ROSS RODRÍGUEZ on 10/24/21 08 Empagliflozin (Jardiance) 10 Mg Tablet, 10 MG PO DAILY Prescribed by: ROSS RODRÍGUEZ on 10/24/21 08 Evolocumab (Repatha Sureclick) 140 Mg/1 Ml Pen.injctr, 140 MG SQ UD, (Reported) Entered as Reported by: WEI JIMENEZ on 12/19/20 1302 Fenofibrate,Micronized (Fenofibrate) 134 Mg Capsule, 134 MG PO HS, (Reported) Entered as Reported by: PATRICIA VALENZUELA on 10/08/20 1607 Fexofenadine HCl (Lisa Allergy) 180 Mg Tablet, 180 MG PO DAILY, (Reported) Entered as Reported by: MARIELENA WINN on 10/23/21 1359 Folic Acid/Multivit-Min/Lutein (Multi-Vitamin Gummies) 200 Mcg-137.5 Mcg Tab.chew, 2 EACH PO HS, (Reported) Entered as Reported by: MARIELENA WINN on 10/23/21 1400 Furosemide (Furosemide) 40 Mg Tablet, 40 MG PO DAILY, (Reported) Entered as Reported by: PATRICIA VALENZUELA on 10/08/20 1607 Gabapentin (Gabapentin) 600 Mg Tablet, 600 MG PO TID, (Reported) Entered as Reported by: MARIELENA WINN on 10/23/21 1244 Hydrocodone/Acetaminophen (Hydrocodone-Acetamin 5-325 mg) 1 Each Tablet, 1 TAB PO Q4H PRN for PAIN-MODERATE (5-7), (Reported) Entered as Reported by: WEI JIMENEZ on 12/19/20 1302 Hydroxyzine HCl (Hydroxyzine HCl) 10 Mg Tablet, 10 MG PO Q6H PRN for ANXIETY, (Reported) Entered as Reported by: PATRICIA VALENZUELA on 10/08/20 1607 Insulin Regular, Human (Humulin R U-500) 500 Unit/Ml (Concentrated) Vial, 100 UNIT SQ AC, (Reported) Entered as Reported by: SUMMER LAU on 10/23/21 1515 Isosorbide Mononitrate (Isosorbide Mononitrate ER) 60 Mg Tab, 60 MG PO DAILY Prescribed by: PAT GONSALEZ on 01/01/22 1422 Magnesium Oxide (Magnesium) 400 Mg Tablet, 400 MG PO BIDAC, (Reported) Entered as Reported by: PATRICIA VALENZUELA on 10/08/20 1607 Metoprolol Succinate (Metoprolol Succinate) 100 Mg Tab.er.24h, 100 MG PO DAILY, (Reported) Entered as Reported by: MARIELENA WINN on 10/23/21 1350 Montelukast Sodium (Montelukast Sodium) 10 Mg Tablet, 10 MG PO HS, (Reported) Entered as Reported by: PATRICIA VALENZUELA on 10/08/20 1607 Nitroglycerin (Nitroglycerin) 0.4 Mg Tab.subl, 0.4 MG SL UD PRN for CHEST PAIN Prescribed by: ROSS RODRÍGUEZ on 10/24/21 0803 Mooseheart-3 Acid Ethyl Esters (Lovaza) 1 Gm Capsule, 2 GM PO BID, (Reported) Entered as Reported by: PATRICIA VALENZUELA on 10/08/20 1607 Pantoprazole Sodium (Pantoprazole Sodium) 40 Mg Tablet.dr, 40 MG PO BID, (Reported) Entered as Reported by: MARIELENA WINN on 10/23/21 1244 Pitavastatin Calcium (Livalo) 4 Mg Tablet, 4 MG PO DAILY, (Reported) Entered as Reported by: WEI JIMENEZ on 12/19/20 1302 Prasugrel HCl (Prasugrel HCl) 10 Mg Tablet, 10 MG PO DAILY, (Reported) Entered as Reported by: PATRICIA VALENZUELA on 10/08/20 1607 Tamsulosin HCl (Flomax) 0.4 Mg Cap, 0.4 MG PO 1800, (Reported) Entered as Reported by: MARIELENA WINN on 10/23/21 1346 Ubidecarenone (Co Q-10) 100 Mg Capsule, 100 MG PO DAILY, (Reported) Entered as Reported by: PATRICIA VALENZUELA on 10/08/20 1607 Ubidecarenone (Co Q-10) 200 Mg Capsule, 200 MG PO DAILY, (Reported) Entered as Reported by: MARIELENA WINN on 10/23/21 1342 Zinc Amino Acid Chelate (Zinc) 50 Mg Tablet, 50 MG PO DAILY, (Reported) Entered as Reported by: MARIELENA WINN on 10/23/21 1359 Discontinued Medications Isosorbide Mononitrate (Isosorbide Mononitrate ER) 30 Mg Tab.er.24h, 30 MG PO D AILY, (Reported) Entered as Reported by: PATRICIA VALENZUELA on 10/08/20 1607 Past Qnwuyih-Ifjopy-Tqgoha Hx Patient Social History Marrital Status: Employed/Student: retired Alcohol Beverage of Choice: Beer Smoking Status: Former Smoker 2nd Hand Smoke Exposure: No Recent Hopitalizations: No Have you traveled recently?: No Alcohol Use?: Yes Pt feels they are or have been: No Immunizations Up To Date Tetanus Booster (TDap): Unknown Pediatric: No Date of Pneumonia Vaccine: Mar 21, 2018 Date of Influenza Vaccine: Mar 21, 2020 Seasonal Allergies Seasonal Allergies: Yes Surgeries Yes Abdominal, Coronary Stent, Gallbladder, Orthopedic Respiratory Yes Chronic Bronchitis, COPD, Pneumonia, Sleep Apnea Currently Using CPAP: No Currently Using BIPAP: Yes Cardiovascular Yes (NSTEMI 03/2019; STENTS X 4) Chronic Edema/Swelling, Coronary Artery Disease, High Cholesterol, Hypertension Neurological Yes Neuropathy Reproductive System Hx Reproductive Disorders: No Sexually Transmitted Disease: No HIV/AIDS: No Genitourinary Yes (CHRONIC RENAL INSUFFICIENCY) Benign Prostatic Hyperpl, Bladder Infection, Renal Failure Gastrointestinal Yes Chronic Constipation Musculoskeletal Yes Degenerate Disk Disease, Arthritis, Gout Endocrine History of Endocrine Disorders: Yes (OBESITY) Endocrine Disorders: Diabetes, Insulin dep HEENT History of HEENT Disorders: No HEENT Disorders: Tonsilitis Loss of Vision: Denies Hearing Impairment: Denies Cancer No Psychosocial History of Psychiatric Problem: Yes Behavioral Health Disorders: Anxiety, Depression Integumentary History of Skin or Integumenta: No Blood Transfusions History of Blood Disorders: No Adverse Reaction to a Blood Tr: No (N/A) Family Medical History Significant Family History: Cancer, Diabetes, Hypertension, Stroke Other Significan Family Hx: SOCIAL HISTORY: -ETOH--HISTORY OF MODERATE TO HEAVY USE -DRUGS--DENIES USE -DENIES SMOKING, BUT HAS CHEWED TOBACCO PAST SURGICAL HISTORY: -CARDIAC CATHS--STENTS X 4 -EGD'S -COLONOSCOPIES/POLYPECTOMY -MULTIPLE BACK [id number] FUSION AND PLATES/RODS; NERVE STIMULATOR-REMOVED -LITHOTRIPSY -LEFT KNEE SCOPE/ACL REPAIR -WISDOM TEETH -TONSILLECTOMY/ADEONOIDECTOMY -APPENDECTOMY -CHOLECYSTECTOMY -ABDOMINAL LAPAROTOMY FOR BOWEL OBSTRUCTIONS/LYSIS OF ADHESIONS -VENTRAL HERNIA REPAIR -CHERYL FUNDOPLICATION -BILATERAL CARPAL TUNNEL -RIGHT WRIST FX/ORIF CARDIAC CATH 07/18/[address] RODRÍGUEZ: FINDINGS: Hemodynamics LV 135/15, end-diastolic pressure 15 Aorta 143/80 mean of 107 ANATOMY: Left Main is free of obstructive disease Left Anterior Descending is slightly tortuous, disease in a small diagonal branch, nonobstructive disease Ramus intermedius is moderate in size, has moderate to severe ostial stenosis, distally there is moderate disease Left Circumflex is moderate in size with small vessel disease in the distal circumflex artery nonobstructive disease Right Coronory Artery has diffuse ectasia, stent is patent the distal right coronary artery, small vessel disease distally LV Gram was not done, pressure was measured CONCLUSION: 1. Moderate to severe ostial ramus intermedius branch that is small to moderate in size. Distal disease, medical therapy is recommended 2. Tortuous LAD with moderate disease in a small diagonal artery that could be responsible for the chest pain 3. Diffuse ectasia in the right coronary artery with patent stent, small vessel disease distally 4. Small vessel disease in the circumflex artery distally 5. Normal left ventricular end-diastolic pressure DISCUSSION AND RECOMMENDATION: Medical therapy is recommended, no intervention is warranted Anesthesia Type: Conscious Sedation Estimated blood loss (mL): 25 ml Contrast Amount: 34 ml Total Radiation Dose: 550 mGy Post-Procedure Diagnosis Post-operative diagnosis: Unstable angina Coronary artery disease Hypertension Hyperlipidemia Coronary artery disease, patient had non-ST elevation myocardial infarction, underwent cardiac catheterization on April 11, 2019 revealing subtotal occlusion with diffuse ectasia in the distal right coronary artery, complex intervention requiring guide liner and multiple balloons, then deployment of Maday 423 mm stent with excellent results. Proximal RCA has diffuse ectasia with 50 percent stenosis, distal right PDA subtotally occluded, fairly small artery, will be treated medically. Severe stenosis at the distal circumflex artery with long lesion involving the obtuse marginal branch, proper circumflex and AV groove branch, all arteries are less than 2 mm in diameter. 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 Mild to moderate ectasia in LAD with mild to moderate disease diffusely, nonobstructive disease. Underwent cardiac catheterization on May 03, [address] Cartagena with 2.2532 mm Promus drug-eluting stent to the circumflex artery. Underwent repeat cardiac catheterization on May 21, 2019 revealing multivessel CAD with FFR confirmation of [id number] disease in RCA and flow-limiting disease in mid LAD. [id number] in proximal LAD. [id number] Synergy stent to mid LAD. Most recent cardiac catheterization done June 10, 2019 with 2.0x 12mm drug eluting [place] stent to first diagonal. Maintained on Effient and aspirin. Family Hx: Abdominal aortic aneurysm 09 BROTHER Cancer 03 MOTHER Cancer of colon 03 MOTHER 09 SISTER 19 MOTHER FH: COPD (chronic obstructive pulmonary disease) 19 FATHER FH: leukemia 09 SISTER 19 MOTHER FHx: stroke 19 FATHER Family history: Diabetes mellitus 09 BROTHER 09 SISTER 09 SISTER 09 SISTER Family history: Gastrointestinal disease 03 MOTHER 09 BROTHER Review of Systems Constitutional: see HPI EENTM: no symptoms reported Respiratory: dyspnea on exertion Cardiovascular: chest pain Gastrointestinal: no symptoms reported Genitourinary: no symptoms reported Musculoskeletal: no symptoms reported Skin: no symptoms reported Psychiatric/Neurological: No Symptoms Reported All Other Systems Reviewed Negative Unless Noted: Yes Physical Exam Vital Signs Vital Signs - First Documented 12/31/21 12/31/21 19:25 23:56 Temp 36.6 Pulse 89 Resp 22 B/P (MAP) 140/97 (111) Pulse Ox 95 O2 Delivery Room Air O2 Flow Rate 2.00 Capillary Refill : Less Than 3 Seconds Height, Weight, BMI Height: 5'11.00" Weight: 260lbs. 8.0oz. [id number]; 40.81 BMI Method:Stated General Appearance: No Apparent Distress, WD/WN, Chronically ill, Obese Eyes: Bilateral Eye Normal Inspection, Bilateral Eye PERRL, Bilateral Eye EOMI HEENT: PERRL/EOMI, Normal ENT Inspection, Pharynx Normal Neck: Full Range of Motion, Normal Inspection, Non Tender, Supple, Carotid Bruit Respiratory: Chest Non Tender, Lungs Clear, Normal Breath Sounds, No Accessory Muscle Use, No Respiratory Distress Cardiovascular: Regular Rate, Rhythm, No Edema, No Gallop, No JVD, No Murmur, Normal Peripheral Pulses Gastrointestinal: Normal Bowel Sounds, No Organomegaly, No Pulsatile Mass, Non Tender, Soft Back: Normal Inspection, No CVA Tenderness, No Vertebral Tenderness Extremity: Normal Capillary Refill, Normal Inspection, Normal Range of Motion, Non Tender, No Calf Tenderness, No Pedal Edema Neurologic/Psychiatric: Alert, Oriented x3, No Motor/Sensory Deficits, Normal Mood/Affect Skin: Normal Color, Warm/Dry Lymphatic: No Adenopathy Clinical Quality Measures AMI/AHF: ASA po Prior to arrival: No Short Stay Diagnosis Discharge Diagnosis-Short Stay Admission Diagnosis: Chest pain Final Discharge Diagnosis: Stable angina DM with insulin resistance HTN HLP CAD RIAZ on biPAP Chronic back pain Conclusion Labs Laboratory Tests 12/31/21 19:18: White Blood Count 8.7, Red Blood Count 4.68, Hemoglobin 15.0, Hematocrit 44, Mean Corpuscular Volume 95, Mean Corpuscular Hemoglobin 32, Mean Corpuscular Hemoglobin Concent 34, Red Cell Distribution Width 13.9, Platelet Count 159, Mean Platelet Volume 11.6, Immature Granulocyte % (Auto) 0, Neutrophils (%) (Auto) 60, Lymphocytes (%) (Auto) 23, Monocytes (%) (Auto) 11, Eosinophils (%) (Auto) 5, Basophils (%) (Auto) 1, Neutrophils # (Auto) 5.3, Lymphocytes # (Auto) 2.0, Monocytes # (Auto) 1.0, Eosinophils # (Auto) 0.4H, Basophils # (Auto) 0.1, Immature Granulocyte # (Auto) 0.0, Prothrombin Time 13.3, INR Comment 1.0, Activated Partial Thromboplast Time 32, Sodium Level 142, Potassium Level 4.0, Chloride Level 104, Carbon Dioxide Level 24, Anion Gap 14, Blood Urea Nitrogen 29H, Creatinine 2.12H, Estimat Glomerular Filtration Rate 36, BUN/Creatinine Ratio 14, Glucose Level 166H, Calcium Level 9.6, Corrected Calcium 9.6, Magnesium Level 2.2, Total Bilirubin 0.7, Aspartate Amino Transf (AST/SGOT) 38H, Alanine Aminotransferase (ALT/SGPT) 58H, Alkaline Phosphatase 60, Myoglobin 185.0H, Troponin I < 0.028, Total Protein 7.1, Albumin 4.0 12/31/21 19:35: D-Dimer 0.50H 12/31/21 22:19: Troponin I < 0.028 01/01/22 04:11: Glucometer 82 01/01/22 04:29: White Blood Count 6.4, Red Blood Count 4.32, Hemoglobin 13.8, Hematocrit 42, Mean Corpuscular Volume 97, Mean Corpuscular Hemoglobin 32, Mean Corpuscular Hemoglobin Concent 33, Red Cell Distribution Width 14.0, Platelet Count 134, Mean Platelet Volume 11.8, Immature Granulocyte % (Auto) 0, Neutrophils (%) (Auto) 56, Lymphocytes (%) (Auto) 24, Monocytes (%) (Auto) 14H, Eosinophils (%) (Auto) 6, Basophils (%) (Auto) 1, Neutrophils # (Auto) 3.6, Lymphocytes # (Auto) 1.5, Monocytes # (Auto) 0.9, Eosinophils # (Auto) 0.4H, Basophils # (Auto) 0.1, Immature Granulocyte # (Auto) 0.0, Percent Immature Platelet Fraction 6.0, Sodium Level 144, Potassium Level 4.0, Chloride Level 106, Carbon Dioxide Level 26, Anion Gap 12, Blood Urea Nitrogen 28H, Creatinine 2.02H, Estimat Glomerular Filtration Rate 38, BUN/Creatinine Ratio 14, Glucose Level 84, Calcium Level 9.0, Troponin I < 0.028 Conclusion/Plan [facility] PAT GONSALEZ DO Jan 01, 2022 06:49
[2022-01-01] MEDS ORDERED: PRASUGREL 10 MG (EFFIENT) TABLET PO SCH (09:00)
[2022-01-01] MEDS ORDERED: ASPIRIN E.C. 81 MG (ECOTRIN) TAB PO SCH (09:00)
[2022-01-01] MEDS ORDERED: meTOprolol SUCCINATE 100 MG (TOPROL XL) TAB PO SCH (09:00)
[2022-01-01] MEDS ORDERED: ISOSORBIDE MONONITRATE 60 MG (IMDUR) TAB PO SCH (09:30)
--- NOTE | 2022-01-01 11:53 | Consultation-Cardiology ---
HPI-Cardiology Cardiology Consultation Date of Consultation 01/01/22 Date of Admission Time Seen by Provider: 08:20 Indication: Chest pain HPI Patient is a 56 y/o male with history of CAD with multiple cardiac catheterizations, chronic stable angina, HTN, CKD, DM. Presented to the ER with complaints of intermittent chest pain and pressure yesterday morning, becoming more persistent by the evening. Took SL nitro x 3 without relief. Denies any increased dyspnea, palpitations. Reporting episodes of dizziness over the past several days. Currently rates pain as 6/10. Home Medications & Allergies Allergies: Coded Allergies: No Known Drug Allergies (Unverified , 12/29/19) Home Medication List Reviewed: Yes SIN-Nrtzks-Morvwg Hx Patient Social History Marital Status: Type Used: Cigarettes 2nd Hand Smoke Exposure: No Recent Hopitalizations: No Have you traveled recently?: No Alcohol Use?: Yes Immunizations Up To Date Tetanus Booster (TDap): Unknown Date of Pneumonia Vaccine: Mar 21, 2018 Date of Influenza Vaccine: Mar 21, 2020 Past Medical History CAD, HTN, HLP, DM CKD Family Medical History Significant Family History: Cancer, Diabetes, Hypertension, Stroke Family History: Abdominal aortic aneurysm 09 BROTHER Cancer 03 MOTHER Cancer of colon 03 MOTHER 09 SISTER 19 MOTHER FH: COPD (chronic obstructive pulmonary disease) 19 FATHER FH: leukemia 09 SISTER 19 MOTHER FHx: stroke 19 FATHER Family history: Diabetes mellitus 09 BROTHER 09 SISTER 09 SISTER 09 SISTER Family history: Gastrointestinal disease 03 MOTHER 09 BROTHER Review of Systems-General Review of Systems Constitutional: see HPI, dizziness EENTM: see HPI; No blurred vision, No double vision Respiratory: see HPI; No cough; dyspnea on exertion; No orthopnea Cardiovascular: see HPI, chest pain, edema, Hx of Intervention; No palpitations, No syncope Gastrointestinal: No abdominal pain, No constipation Musculoskeletal: no symptoms reported Skin: no symptoms reported Psychiatric/Neurological: No Symptoms Reported Reviewed Test Results Reviewed Test Results Lab Laboratory Tests 12/31/21 19:18: White Blood Count 8.7, Red Blood Count 4.68, Hemoglobin 15.0, Hematocrit 44, Mean Corpuscular Volume 95, Mean Corpuscular Hemoglobin 32, Mean Corpuscular Hemoglobin Concent 34, Red Cell Distribution Width 13.9, Platelet Count 159, Mean Platelet Volume 11.6, Immature Granulocyte % (Auto) 0, Neutrophils (%) (Auto) 60, Lymphocytes (%) (Auto) 23, Monocytes (%) (Auto) 11, Eosinophils (%) (Auto) 5, Basophils (%) (Auto) 1, Neutrophils # (Auto) 5.3, Lymphocytes # (Auto) 2.0, Monocytes # (Auto) 1.0, Eosinophils # (Auto) 0.4H, Basophils # (Auto) 0.1, Immature Granulocyte # (Auto) 0.0, Prothrombin Time 13.3, INR Comment 1.0, Activated Partial Thromboplast Time 32, Sodium Level 142, Potassium Level 4.0, Chloride Level 104, Carbon Dioxide Level 24, Anion Gap 14, Blood Urea Nitrogen 29H, Creatinine 2.12H, Estimat Glomerular Filtration Rate 36, BUN/Creatinine Ratio 14, Glucose Level 166H, Calcium Level 9.6, Corrected Calcium 9.6, Magnesium Level 2.2, Total Bilirubin 0.7, Aspartate Amino Transf (AST/SGOT) 38H, Alanine Aminotransferase (ALT/SGPT) 58H, Alkaline Phosphatase 60, Myoglobin 185.0H, Troponin I < 0.028, Total Protein 7.1, Albumin 4.0 12/31/21 19:35: D-Dimer 0.50H 12/31/21 22:19: Troponin I < 0.028 01/01/22 04:11: Glucometer 82 01/01/22 04:29: White Blood Count 6.4, Red Blood Count 4.32, Hemoglobin 13.8, Hematocrit 42, Mean Corpuscular Volume 97, Mean Corpuscular Hemoglobin 32, Mean Corpuscular Hemoglobin Concent 33, Red Cell Distribution Width 14.0, Platelet Count 134, Mean Platelet Volume 11.8, Immature Granulocyte % (Auto) 0, Neutrophils (%) (Auto) 56, Lymphocytes (%) (Auto) 24, Monocytes (%) (Auto) 14H, Eosinophils (%) (Auto) 6, Basophils (%) (Auto) 1, Neutrophils # (Auto) 3.6, Lymphocytes # (Auto) 1.5, Monocytes # (Auto) 0.9, Eosinophils # (Auto) 0.4H, Basophils # (Auto) 0.1, Immature Granulocyte # (Auto) 0.0, Percent Immature Platelet Fraction 6.0, Sodium Level 144, Potassium Level 4.0, Chloride Level 106, Carbon Dioxide Level 26, Anion Gap 12, Blood Urea Nitrogen 28H, Creatinine 2.02H, Estimat Glomerular Filtration Rate 38, BUN/Creatinine Ratio 14, Glucose Level 84, Calcium Level 9.0, Troponin I < 0.028 ECG Impression ECG Initial ECG Rhythm: Normal Sinus Physical Exam Physical Exam Vital Signs Vital Signs - First Documented 12/31/21 12/31/21 19:25 23:56 Temp 36.6 Pulse 89 Resp 22 B/P (MAP) 140/97 (111) Pulse Ox 95 O2 Delivery Room Air O2 Flow Rate 2.00 Capillary Refill : Less Than 3 Seconds Height, Weight, BMI Height: 5'11.00" Weight: 260lbs. 8.0oz. 117.968325ke; 40.81 BMI Method:Stated General Appearance: WD/WN, Moderate Distress, Obese HEENT: PERRL/EOMI, Normal ENT Inspection Neck: Normal Inspection; No JVD Respiratory: Chest Non Tender, Lungs Clear, Normal Breath Sounds, No Accessory Muscle Use, No Respiratory Distress Cardiovascular: Regular Rate, Rhythm, No Edema, No Murmur Gastrointestinal: Normal Bowel Sounds, Non Tender, Soft; No Distended Extremity: Normal Inspection, Non Tender, No Calf Tenderness, No Pedal Edema Neurologic/Psychiatric: Alert, Oriented x3, No Motor/Sensory Deficits, Normal Mood/Affect Skin: Normal Color, Warm/Dry A/P-Cardiology Admission Diagnosis Chest pain CAD HTN CKD Assessment/Plan Chest pain with history of chronic stable angina, currently unstable angina. Multiple hospitalization for recurrent chest pain Currently feeling better and reporting improvement in his chest pain I started him back on isosorbide with increasing the dose to 60 mg daily Restart home medication, reassured, patient has small vessel disease, conservative management is recommended No intervention is warranted. Sinus tachycardia, improved after increasing Toprol XL to 100mg daily. Status post respiratory failure in September 2020 secondary to CO2 narcosis, recovered and underwent physical therapy and rehab and doing better and improving. Chronic kidney disease stage III, continue to monitor renal function. Status post COVID-19 pneumonia end of May 2021, was hospitalized at [facility] in [place], recovered well, still having some residual dyspnea Coronary artery disease, -Patient had non-ST elevation myocardial infarction, underwent cardiac catheterization on April 11, 2019 revealing subtotal occlusion with diffuse ectasia in the distal right coronary artery, complex intervention requiring guide liner and multiple balloons, then deployment of Maday 423 mm stent with excellent results. Proximal RCA has diffuse ectasia with 50 percent stenosis, distal right PDA subtotally occluded, fairly small artery, will be treated medically. Severe stenosis at the distal circumflex artery with long lesion involving the obtuse marginal branch, proper circumflex and AV groove branch, all arteries are less than 2 mm in diameter. 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 Mild to moderate ectasia in LAD with mild to moderate disease diffusely, nonobstructive disease. -Cardiac catheterization on May 03, [address] Cartagena with 2.2532 mm Promus drug-eluting stent to the circumflex artery. -Cardiac catheterization on May 21, 2019 revealing multivessel CAD with FFR confirmation of [id number] disease in RCA and flow-limiting disease in mid LAD. [id number] in proximal LAD. [id number] Synergy stent to mid LAD. -Cardiac catheterization done June 10, 2019 with 2.0x 12mm drug eluting [place] stent to first diagonal. -Cardiac catheterization done 07/18/20 showing moderate to severe ostial ramus intermedius branch that is small to moderate in size, distal disease. Tortuous LAD with moderate disease in a small diag artery that could be responsible for the chest pain, diffuse extasia in the RCA with patnet stent, small vessel disease distally. Sm vessel dz in the cx artery. Repeat cardiac catheterization was done on October 23, 2021 due to the recurrent chest pain, patient has diffuse coronary ectasia with patent stent in the mid LAD, obtuse marginal branch and proximal right coronary artery and distal right coronary artery, had moderate stenosis of the mid and distal right coronary artery with FFR 0.83 after adenosine. Mild to moderate stenosis in the mid LAD and nonobstructive disease, 50 to 60% stenosis of the ostium of her ramus intermedius. That did not change compared to the previous study. Currently feeling better and doing better. Continue with conservative management continue to monitor. Maintained on Effient and ASA. Lexiscan done in June 2020 showing diaphragmatic attenuation with no significant ischemia or infarction, ejection fraction 48%. Echocardiogram done May 2021 showing ejection fraction 45-50%, grade 1 diastolic dysfunction, PA 25-30 mmHg. Dyspnea on exertion, improving, undergoing physical therapy, improving. Status p ost respiratory failure. Continue to monitor Hypertension, restart home medication and continue to monitor. Hyperlipidemia, Maintained on pravastatin, fenofibrate and Repatha, was receiving steroids and had elevated blood sugars during his COVID-19 pneumonia infection in May 2021. We will continue monitoring and repeat lipid profile pending 6 months Heterogeneous appearance of the bilateral thyroid lobes, noted incidentally on CT, recommend follow up. Diabetes mellitus, cannot tolerate metformin d/t renal function, management per primary care physician Nonobstructive carotid artery stenosis. last ultrasound done in September 2019. Continue to monitor COPD/obstructive sleep apnea Obesity, BMI is 40.8, we discussed weight loss Multiple back surgeries, recent knee surgery, recent umbilical hernia surgery Chronic back pain. Thank you for allowing us to participate in the management of Mr. Negron. This is Zena Godfrey PA-C as a scribe for Dr. Núñez. Patient was seen and evaluated with Zena, I interviewed and examined the patient and discussed the management plan and I agree with the current scribed note Patient was admitted with unstable angina, has underlying chronic stable angina, responding to aggressive medical therapy Recent cardiac catheterization showing diffuse coronary ectasia was small vessel disease nonobstructive disease I have increasing isosorbide to 60 mg daily and will consider adding Ranexa. I made few modification to the note using Italic font. Clinical Quality Measures AMI/AHF: ASA po Prior to arrival: No ZENA CHRISTINA Jan 01, 2022 11:53 ROSS NÚÑEZ MD Jan 01, 2022 16:22
[2022-01-01] MEDS ORDERED: ISOS60TA63 PO (14:22)
== END 2022-01-01 16:35 | disposition home or self-care (01) ==
LOC: EDUNIT# 19:17 → ER 19:18 → UNDOADMOB 22:28 → CSD 22:28 → UNDODISOB 01-01 16:35
PROVIDERS: ADMIT Internal Medicine; ATTEND Internal Medicine
DX: I25.110 Atherosclerotic heart disease of native coronary artery with unstable angina pectoris (principal); N17.9 Acute kidney failure, unspecified; E66.9 Obesity, unspecified; Z68.41 Body mass index [BMI] 40.0-44.9, adult; J44.9 Chronic obstructive pulmonary disease, unspecified; G47.33 Obstructive sleep apnea (adult) (pediatric); I12.9 Hypertensive chronic kidney disease with stage 1 through stage 4 chronic kidney disease, or unspecified chronic kidney disease; E11.22 Type 2 diabetes mellitus with diabetic chronic kidney disease; N18.30 Chronic kidney disease, stage 3 unspecified; E78.00 Pure hypercholesterolemia, unspecified; I25.2 Old myocardial infarction; K21.9 Gastro-esophageal reflux disease without esophagitis; E88.81 Metabolic syndrome and other insulin resistance; Z79.4 Long term (current) use of insulin; Z79.84 Long term (current) use of oral hypoglycemic drugs; Z83.3 Family history of diabetes mellitus; Z28.310 Unvaccinated for COVID-19; Z28.9 Immunization not carried out for unspecified reason; Z28.39 Other underimmunization status; Z79.82 Long term (current) use of aspirin
CPT/HCPCS: 71045; 71275; 80048; 80053; 82947; 83735; 83874; 84484 ×2; 85025 ×2; 85379; 85610; 85730; 93005 ×2; 93041; 96361; 96374; 96375; 96376; 99284; G0378; 36415

== ENCOUNTER → 2022-02-20 | Outpatient (CLI) | payer MEDICARE, OTHER ==
[~2022-02-20] MED LIST changes: +CATHETER FLUSH 10 ML SYR IV PRN; +HOLD METFORMIN - RECEIVED CONTRAST 20 ML VIAL IV SCH; +IOHEXOL 350 MG/ML 100 ML (OMNIPAQUE 350) VIAL IV ONE; +ISOS60TA63 PO; +NS 100 ML (IVPB) BAG IV ONE
[2022-02-20 12:09] LABS: ALBUMIN 4.1 GM/DL (3.2-4.5); CALCIUM 9.8 MG/DL (8.5-10.1); CREATININE SERUM 2.11 MG/DL (0.60-1.30); PHOSPHORUS 3.6 MG/DL (2.3-4.7); POTASSIUM 3.8 MMOL/L (3.6-5.0)
--- NOTE | 2022-02-20 12:49 | Diagnostic Imaging Report ---
PROCEDURE: CT chest with contrast only. TECHNIQUE: Multiple contiguous axial images were obtained through the chest after administration of intravenous contrast. Auto Exposure Controls were utilized during the CT exam to meet ALARA standards for radiation dose reduction. INDICATION: Abnormal chest x-ray. COMPARISON: Prior outside chest x-ray is not available for direct comparison. Correlation is made with prior CT angiogram of the chest from 12/31/2021. FINDINGS: No axillary lymphadenopathy is identified. No definite mediastinal or hilar lymphadenopathy is detected. There are coronary arterial calcifications present. No pericardial or pleural fluid is identified. No pulmonary infiltrates, nodules or masses are seen. Upper abdomen does show low attenuation throughout the liver, consistent with hepatic steatosis. IMPRESSION: Unremarkable CT of the chest. There is no evidence of thoracic lymphadenopathy or pulmonary mass. Dictated by: Dictated on workstation # [id number]
== END ==
LOC: RAD 10:40
PROVIDERS: ATTEND Family Medicine
DX: R93.89 Abnormal findings on diagnostic imaging of other specified body structures (principal)
CPT/HCPCS: 36415; 71260; 80069

== ENCOUNTER → 2022-11-24 | Outpatient (CLI) | payer MEDICARE, OTHER ==
[~2022-11-24] VITALS: Ht 182.9 cm; Wt 122.7 kg
[~2022-11-24] MED LIST changes: +ALBU8.5H6 IH; -CATHETER FLUSH 10 ML SYR IV PRN; -GABA300S2 PO; +GABA300S3 PO; -HOLD METFORMIN - RECEIVED CONTRAST 20 ML VIAL IV SCH; -IOHEXOL 350 MG/ML 100 ML (OMNIPAQUE 350) VIAL IV ONE; +LIDOCAINE 1% INJ 10 ML VIAL INJ ONE; +LIDOCAINE 1% INJ 10 ML VIAL ONE; +MONT-47 PO; -MONT10TA21 PO; -NS 100 ML (IVPB) BAG IV ONE; -RT-ALBUINH IH
--- NOTE | 2022-11-24 12:06 | Diagnostic Imaging Report ---
INDICATION: Left thyroid nodule. Patient presents for ultrasound-guided fine-needle aspiration. DETAILS OF THE PROCEDURE: The patient was brought to the procedure room and placed on the table in the supine position. Ultrasound imaging of the left neck was performed to evaluate for an appropriate entry site. The left neck was then prepped and draped in the usual sterile fashion. A small amount of 1% lidocaine was utilized for local anesthesia. A total of four passes was made into the dominant solid nodule in the left lobe of the thyroid utilizing 25-gauge needles and fine-needle aspiration technique. Hemostasis was obtained. The patient tolerated the procedure well and left the Department in stable condition. IMPRESSION: Successful ultrasound-guided fine-needle aspiration of a left lobe thyroid nodule. Pathology results are currently pending. Dictated by: Dictated on workstation # [id number]
== END ==
LOC: RAD 10:05
PROVIDERS: ATTEND Otolaryngology Otolaryngology/Facial Plastic Surgery
DX: E04.1 Nontoxic single thyroid nodule (principal)

== ENCOUNTER → 2023-04-04 | Outpatient (CLI) | payer MEDICARE, OTHER ==
[~2023-04-04] MED LIST changes: +DICL100G60 TOP; -INSU100V39 SQ; +INSU100V45 SQ; -LIDOCAINE 1% INJ 10 ML VIAL INJ ONE; -LIDOCAINE 1% INJ 10 ML VIAL ONE
--- NOTE | 2023-04-04 13:57 | Diagnostic Imaging Report ---
PROCEDURE: CT abdomen and pelvis without contrast. TECHNIQUE: Multiple contiguous axial images were obtained through the abdomen and pelvis without the use of intravenous contrast. Auto Exposure Controls were utilized during the CT exam to meet ALARA standards for radiation dose reduction. INDICATION: Lower back pain. COMPARISON: 02/01/2021. FINDINGS: Left-sided gynecomastia. Scattered vascular calcifications including significant calcifications versus stents within the coronary arteries. Post surgical changes within the left lung base with mild left basilar scarring and/or atelectasis. No significant basilar pleural effusion. Post surgical changes involving the lateral left chest wall and ribs. Cholecystectomy. The unenhanced liver and spleen are unremarkable. The adrenal glands are unremarkable. The pancreas is unremarkable. The unenhanced bilateral kidneys and ureters are unremarkable. Moderate vascular calcifications without aneurysmal dilatation of the abdominal aorta. Evidence of a prior anterior abdominal wall hernia repair. The urinary bladder is unremarkable. Left posterolateral fat-containing abdominal wall hernia. Post surgical changes involving the midline small bowel. No bowel obstruction. No pneumatosis. No significant adenopathy, free air, or free fluid within the abdomen or pelvis. Extensive post surgical changes within the lumbar spine. No fractured hardware. Minimal grade 1 anterolisthesis of L3 on L4. Scattered osseous degenerative changes. Disc/osteophyte complex at L1/L2 with resultant moderate to severe central canal stenosis. No acute osseous fracture. IMPRESSION: Extensive post surgical changes throughout the lumbar spine with disc/osteophyte complex at L1/L2 with high-grade central canal stenosis. Fat-containing left posterolateral abdominal wall hernia. Additional post surgical changes involving the left lung base, anterior abdominal wall, and bowel. Additional findings as above. The report was called and faxed to Amelia Obando APRN, by [email or web address]@1:51 PM. Dictated by: Dictated on workstation # [id number]
== END ==
LOC: RAD 13:12
PROVIDERS: ATTEND Nurse Practitioner Family
DX: M48.061 Spinal stenosis, lumbar region without neurogenic claudication (principal); K43.9 Ventral hernia without obstruction or gangrene; N20.0 Calculus of kidney; R19.8 Other specified symptoms and signs involving the digestive system and abdomen; R31.0 Gross hematuria; R30.0 Dysuria; I25.10 Atherosclerotic heart disease of native coronary artery without angina pectoris; I10 Essential (primary) hypertension; G47.33 Obstructive sleep apnea (adult) (pediatric); E78.49 Other hyperlipidemia; E66.8 Other obesity; E11.9 Type 2 diabetes mellitus without complications; N19 Unspecified kidney failure; Z98.890 Other specified postprocedural states
CPT/HCPCS: 74176

== ENCOUNTER → 2023-04-04 | Outpatient (CLI) | payer MEDICARE, OTHER ==
[2023-04-04 15:08] LABS: BASOPHILS # (AUTO) 0.1 10^3/uL (0.0-0.1); BASOPHILS % (AUTO) 1 % (0-10); EOSINOPHILS # (AUTO) 0.2 10^3/uL (0.0-0.3); EOSINOPHILS % (AUTO) 2 % (0-10); HEMATOCRIT 43 % (40-54); HEMOGLOBIN 14.7 g/dL (13.3-17.7); LYMPHOCYTES # (AUTO) 1.7 10^3/uL (1.0-4.0); LYMPHOCYTES % (AUTO) 17 % (12-44); MEAN CORPUSCULAR HEMOGLOBIN 32 pg (25-34); MEAN CORPUSCULAR HGB CONC 34 g/dL (32-36); MEAN CORPUSCULAR VOLUME 95 fL (80-99); MEAN PLATELET VOLUME 11.2 fL (9.0-12.2); MONOCYTES # (AUTO) 1.1 10^3/uL (0.0-1.0); MONOCYTES % (AUTO) 11 % (0-12); NEUTROPHILS # (AUTO) 6.7 10^3/uL (1.8-7.8); NEUTROPHILS % (AUTO) 69 % (42-75); PLATELET COUNT 161 10^3/uL (130-400); WHITE BLOOD COUNT 9.7 10^3/uL (4.3-11.0)
[2023-04-04 15:18] LABS: ALBUMIN 4.1 GM/DL (3.2-4.5); POTASSIUM 4.4 MMOL/L (3.6-5.0)
[2023-04-04 15:19] LABS: CALCIUM 9.4 MG/DL (8.5-10.1)
[2023-04-04 15:20] LABS: TOTAL PROTEIN 7.3 GM/DL (6.4-8.2)
[2023-04-04 15:22] LABS: BILIRUBIN,TOTAL 0.7 MG/DL (0.1-1.0)
[2023-04-04 15:24] LABS: CREATININE SERUM 1.84 MG/DL (0.60-1.30)
== END ==
LOC: LAB 14:45
PROVIDERS: ATTEND Nurse Practitioner Family
DX: R31.9 Hematuria, unspecified (principal); I69.352 Hemiplegia and hemiparesis following cerebral infarction affecting left dominant side
CPT/HCPCS: 36415; 80053; 85025; 86141